=== PATIENT | male | born 1965 | race Caucasian/White ===

== ENCOUNTER 2019-09-05 16:52 | Emergency (ER) | payer SELFPAY ==
--- OUTSIDE RECORDS SUMMARY | 2019-09-05 17:10 | XMS REPORT ---
:1965 [facility] Address [address] [place] [address] Care Team Providers Name Role Phone UNKNOWN, REFFERING Primary Care Provider Unavailable Problems This patient has no known problems. Allergies, Adverse Reactions, Alerts This patient has no known allergies or adverse reactions. Medications This patient has no known medications. Encounters Start End Encounter Admission Attending Care Care Encounter Date/Time Date/Time Type Type Clinicians Facility Department ID 2016-11-13 Inpatient E [facility] MED [id number] 23:30:00
--- NOTE | 2019-09-05 18:18 | RAD REPORT ---
EXAM DESCRIPTION: CT - Stone Protocol - 09/05/2019 5:57 pm CLINICAL HISTORY: Inguinal hernia, groin pain, flank pain COMPARISON: None. TECHNIQUE: Axial 5 mm thick images were obtained without oral or IV contrast. The [id number] span s the entirety of the system partially obscuring uppermost abdomen and lung bases. All CT scans are performed using dose optimization technique as appropriate and may include automated exposure control or mA/KV adjustment according to patient size. FINDINGS: No hydronephrosis is present and no obstructing ureteral calculi. No suspicious renal mass es. Isodense masses and pyelonephritis are not excluded on a stone protocol CT scan. No significant a drenal finding. Urinary bladder sanchez are prominent. No asymmetric wall thickening or mass. Bladder is only partially filled limiting accuracy of bladder wall assessment. Cystitis is not excluded if there are any suppo rting UA abnormalities. Imaged portions of the liver, spleen and pancreas show no suspicious findings on non-contrast imaging . No gallbladder or biliary tree abnormality identified. No stomach or small bowel abnormality. Moderate stool volume fills the colon. No acute colon process seen. Sigmoid and descending colon segments are not adequately distended by air or bowel content to a llow all accurate assessment. No mass or bulky lymphadenopathy. No omental thickening seen. Patient has an indirect left inguinal h ernia containing fat. Herniated fat does not appear congested or edematous. No bowel involvement. No free air, free fluid or inflammatory stranding. No significant bony abnormality. IMPRESSION: Left indirect inguinal hernia containing only fat. No congested or edematous fat. Urinary bladder wall is only partially filled. Wall thickness is likely an artifact of incomplete dis tention. Cystitis is not excluded on a noncontrast study and can be correlated with UA findings. Isodense masses and pyelonephritis are not excluded on stone protocol technique.
--- NOTE | 2019-09-05 18:31 | ER ---
Nurse's Notes [facility] Name: Bro Yung Age: 54 yrs Sex: Male : 1965 Arrival Date: 09/05/2019 Time: 16:55 Bed 15 Private MD: Diagnosis: Inguinal hernia Presentation: 09/05 17:01 Presenting complaint: Patient states: noticed lump in left groin on thanksgi, today iw pain has gotten really bad. Transition of care: patient was not received from another setting of care. Onset of symptoms was August 28, 2019. Risk Assessment: Do you want to hurt yourself or someone else? Patient reports no desire to harm self or others. Initial Sepsis Screen: Does the patient meet any 2 criteria? No. Patient's initial sepsis screen is negative. Does the patient have a suspected source of infection? No. Patient's initial sepsis screen is negative. Care prior to arrival: None. 17:01 Method Of Arrival: Ambulatory iw 17:01 Acuity: PATRICIO 3 iw Historical: - Allergies: 17:02 No Known Allergies; iw - Home Meds: 17:02 None [Active]; iw - PMHx: 17:02 Anxiety; Depression; iw - PSHx: 17:02 eye; Tonsillectomy; nose; lower left leg; iw - Immunization history:: Adult Immunizations. - Social history:: Smoking status: Patient uses tobacco products, smokes one pack cigarettes per day. - Ebola Screening: : Patient negative for fever greater than or equal to 101.5 degrees Fahrenheit, and additional compatible Ebola Virus Disease symptoms Patient denies exposure to infectious person Patient denies travel to an Ebola-affected area in the 21 days before illness onset No symptoms or risks identified at this time. Screenin:42 Abuse screen: Denies threats or abuse. Nutritional screening: No deficits noted. tw2 Tuberculosis screening: No symptoms or risk factors identified. Fall Risk None identified. Assessment: 17:39 General: Appears in no apparent distress. unkempt, Behavior is calm, cooperative, tw2 appropriate for age. Pain: Complains of pain in left inguinal area. Neuro: Level of Consciousness is awake, alert, obeys commands, Oriented to person, place, time, situation. Cardiovascular: Heart tones S1 S2 Patient's skin is warm and dry. Respiratory: Airway is patent Respiratory effort is even, unlabored, Respiratory pattern is regular, symmetrical, Breath sounds are clear bilaterally. GI: Reports left inguinal pain. : No signs and/or symptoms were reported regarding the genitourinary system. EENT: No signs and/or symptoms were reported regarding the EENT system. Derm: No signs and/or symptoms reported regarding the dermatologic system. Musculoskeletal: Range of motion: intact in all extremities. Vital Signs: 17:02 BP 124 / 84; Pulse 84; Resp 16 S; Temp 97.0; Pulse Ox 98% ; Weight 77.11 kg; Height 5 iw ft. 8 in. (172.72 cm); Pain 8/10; 18:40 BP 122 / 82; Pulse 79; Resp 17; Pulse Ox 97% on R/A; tw2 17:02 Body Mass Index 25.85 (77.11 kg, 172.72 cm) iw ED Course: 16:55 Patient arrived in ED. as 17:02 Triage completed. iw 17:03 Placed in gown. Bed in low position. Call light in reach. tw2 17:17 Annie Tello FNP-C is [facility]. kb 17:17 Bro Ortiz MD is Attending Physician. kb 17:37 Lindsey Paredes, JESSICA is Primary Nurse. tw2 17:37 Arm band placed on. tw2 17:[address] nj 17:59 CT Stone Protocol In Process Unspecified. EDMS 18:39 No provider procedures requiring assistance completed. Patient did not have IV access tw2 during this emergency room visit. Administered Medications: No medications were administered Outcome: 18:31 Discharge ordered by . kb 18:39 Discharged to home ambulatory. tw2 18:39 Condition: stable 18:39 Discharge instructions given to patient, Instructed on discharge instructions, follow up and referral plans. Demonstrated understanding of instructions, follow-up care. 18:40 Patient left the ED. tw2 Signatures: Dispatcher [employer] EDMS Annie Tello FNP-C FNP-Ckb Martinez, Amelia as Williams, Irene RN JESSICA iw Lindsey Paredes RN RN tw2 Helio Miranda
--- NOTE | 2019-09-05 18:32 | EDPHYS ---
Physician Documentation [facility] Name: Bro Yung Age: 54 yrs Sex: Male : 1965 Arrival Date: 09/05/2019 Time: 16:55 Bed 15 Private MD: ED Physician Bro Ortiz HPI: 09/05 18:35 This 54 yrs old Male presents to ER via Ambulatory with complaints of Groin kb Pain. 19:17 The patient presents with abdominal pain in the left lower quadrant. Onset: The kb symptoms/episode began/occurred 2 week(s) ago. The symptoms do not radiate. Associated signs and symptoms: none. The symptoms are described as intermittent. Modifying factors: The symptoms are alleviated by nothing, the symptoms are aggravated by straining. Severity of pain: At its worst the pain was moderate in the emergency department the pain is unchanged. The patient has not experienced similar symptoms in the past. The patient has not recently seen a physician. Pt reports bulge to left groin that increases in size at times. Reports he noticed it before Thanksgiving and the pain was a little worse today so he thought he should get it checked out. Denies n/v/d, fever. . Historical: - Allergies: 17:02 No Known Allergies; iw - Home Meds: 17:02 None [Active]; iw - PMHx: 17:02 Anxiety; Depression; iw - PSHx: 17:02 eye; Tonsillectomy; nose; lower left leg; iw - Immunization history:: Adult Immunizations. - Social history:: Smoking status: Patient uses tobacco products, smokes one pack cigarettes per day. - Ebola Screening: : Patient negative for fever greater than or equal to 101.5 degrees Fahrenheit, and additional compatible Ebola Virus Disease symptoms Patient denies exposure to infectious person Patient denies travel to an Ebola-affected area in the 21 days before illness onset No symptoms or risks identified at this time. ROS: 19:19 Constitutional: Negative for fever, chills, and weight loss, ENT: Negative for injury, kb pain, and discharge, Neck: Negative for injury, pain, and swelling, Cardiovascular: Negative for chest pain, palpitations, and edema, Respiratory: Negative for shortness of breath, cough, wheezing, and pleuritic chest pain, Back: Negative for injury and pain, : Negative for injury, bleeding, discharge, and swelling, MS/Extremity: Negative for injury and deformity, Skin: Negative for injury, rash, and discoloration, Neuro: Negative for headache, weakness, numbness, tingling, and seizure. 19:19 Abdomen/GI: Positive for abdominal pain, of the left inguinal area. Exam: 19:16 Constitutional: This is a well developed, well nourished patient who is awake, alert, kb and in no acute distress. Head/Face: Normocephalic, atraumatic. ENT: Nares patent. No nasal discharge, no septal abnormalities noted. Tympanic membranes are normal and external auditory canals are clear. Oropharynx with no redness, swelling, or masses, exudates, or evidence of obstruction, uvula midline. Mucous membranes moist. Neck: Trachea midline, no thyromegaly or masses palpated, and no cervical lymphadenopathy. Supple, full range of motion without nuchal rigidity, or vertebral point tenderness. No Meningismus. Chest/axilla: Normal chest wall appearance and motion. Nontender with no deformity. No lesions are appreciated. Cardiovascular: Regular rate and rhythm with a normal S1 and S2. No gallops, murmurs, or rubs. Normal PMI, no JVD. No pulse deficits. Respiratory: Lungs have equal breath sounds bilaterally, clear to auscultation and percussion. No rales, rhonchi or wheezes noted. No increased work of breathing, no retractions or nasal flaring. Back: No spinal tenderness. No costovertebral tenderness. Full range of motion. Skin: Warm, dry with normal turgor. Normal color with no rashes, no lesions, and no evidence of cellulitis. MS/ Extremity: Pulses equal, no cyanosis. Neurovascular intact. Full, normal range of motion. Neuro: Awake and alert, GCS 15, oriented to person, place, time, and situation. Cranial nerves II-XII grossly intact. Motor strength 5/5 in all extremities. Sensory grossly intact. Cerebellar exam normal. Normal gait. 19:16 Abdomen/GI: Hernia: noted in the left inguinal area, easily reduced. Vital Signs: 17:02 BP 124 / 84; Pulse 84; Resp 16 S; Temp 97.0; Pulse Ox 98% ; Weight 77.11 kg; Height 5 iw ft. 8 in. (172.72 cm); Pain 8/10; 18:40 BP 122 / 82; Pulse 79; Resp 17; Pulse Ox 97% on R/A; tw2 17:02 Body Mass Index 25.85 (77.11 kg, 172.72 cm) iw MDM: 17:17 Patient medically screened. kb 18:12 Data reviewed: vital signs, nurses notes. Data interpreted: Pulse oximetry: on room air kb is 98 %. Interpretation: normal. 18:30 Counseling: I had a detailed discussion with the patient and/or guardian regarding: the kb historical points, exam findings, and any diagnostic results supporting the discharge/admit diagnosis, radiology results, the need for outpatient follow up, a family practitioner, a general surgeon, to return to the emergency department if symptoms worsen or persist or if there are any questions or concerns that arise at home. 09/05 17:35 Order name: CT Stone Protocol; Complete Time: 18:29 kb Administered Medications: No medications were administered Disposition: 09/06 07:23 Co-signature as Attending Physician, Bro Ortiz MD I agree with the assessment and kdr plan of care. Disposition: 09/05/19 18:31 Discharged to Home. Impression: Inguinal hernia. - Condition is Stable. - Discharge Instructions: Inguinal Hernia, Adult, [id number]. - Medication Reconciliation Form, Thank You Letter, Antibiotic Education, Prescription Opioid Use form. - Follow up: Emergency Department; When: As needed; Reason: Worsening of condition. Follow up: Private Physician; When: 2 - 3 days; Reason: Recheck today's complaints, Continuance of care, Re-evaluation by your physician. Signatures: Dispatcher [employer] EDCA Annie Tello, MEL-C MEL-Bro Warner MD MD [facility] Inés Mata, JESSICA RN iw Lindsey Paredes RN RN tw2 Corrections: (The following items were deleted from the chart) 09/05 18:40 18:31 09/05/2019 18:31 Discharged to Home. Impression: Inguinal hernia. Condition is tw2 Stable. Forms are Medication Reconciliation Form, Thank You Letter, Antibiotic Education, Prescription Opioid Use. Follow up: Emergency Department; When: As needed; Reason: Worsening of condition. Follow up: Private Physician; When: 2 - 3 days; Reason: Recheck today's complaints, Continuance of care, Re-evaluation by your physician. kb
[2019-09-05 20:38] VITALS: TEMP 97
[2019-09-05 20:39] VITALS: BP 122/82; O2SAT 97
== END 2019-09-05 18:40 | disposition home or self-care (01) ==
LOC: ER 16:52
DX: K40.90 Unilateral inguinal hernia, without obstruction or gangrene, not specified as recurrent (principal); F17.210 Nicotine dependence, cigarettes, uncomplicated
CPT/HCPCS: 74176; 76377; 99284

== ENCOUNTER 2019-10-19 03:36 | Emergency (ER) | payer SELFPAY ==
--- OUTSIDE RECORDS SUMMARY | 2019-10-19 03:39 | XMS REPORT ---
:1965 [facility] Address [address] [place] [address] Care Team Providers Name Role Phone UNKNOWN, REFFERING Primary Care Provider Unavailable Problems This patient has no known problems. Allergies, Adverse Reactions, Alerts This patient has no known allergies or adverse reactions. Medications This patient has no known medications. Encounters Start End Encounter Admission Attending Care Care Encounter Date/Time Date/Time Type Type Clinicians Facility Department ID 2016-11-13 Inpatient E [facility] [id number] 23:30:00
[2019-10-19] MEDS ORDERED: LEVALBUTEROL 1.25 MG/3 ML NEB ONE (03:59)
[2019-10-19] MEDS ORDERED: ASPIRIN 81 MG CHEWABLE TABLET ONE ×2 (03:59→04:07)
[2019-10-19] MEDS ORDERED: IPRATROPIUM BROM 0.5MG/2.5ML ONE (03:59)
[2019-10-19 04:23] LABS: Absolute Lymphocytes (CBC) 2.2 K/uL (0.7-4.9); Basophils % 0.7 % (0-1.3); Hematocrit 48.1 % (39.6-49.0); Lymphocytes % 26.7 % (15.3-44.8); MPV 6.7 fL (7.6-11.3); RBC Red Blood Cell Count 5.07 M/uL (4.33-5.43)
[2019-10-19 04:25] LABS: Protime INR 1.02
[2019-10-19 05:08] LABS: Barbiturates NEGATIVE (NEGATIVE); Benzodiazepines NEGATIVE (NEGATIVE); Cocaine NEGATIVE (NEGATIVE); METHAMPHETAM POSITIVE (NEGATIVE); Methadone NEGATIVE (NEGATIVE); Opiates NEGATIVE (NEGATIVE); Phencyclidine NEGATIVE (NEGATIVE); THC Cannibis NEGATIVE (NEGATIVE)
[2019-10-19 05:08] LABS: ALT/SGPT 78 U/L (12-78); AST/SGOT 56 U/L (15-37); Albumin 4.2 g/dL (3.4-5.0); Alkaline Phosphatase 56 U/L (45-117); BUN Blood Urea Nitrogen 12 mg/dL (7-18); Bicarbonate 27 mmol/L (21-32); Bilirubin Direct 0.4 mg/dL (0-0.2); Bilirubin Total 1.4 mg/dL (0.2-1.0); Glucose Level 114 mg/dL (74-106); NT PRO-BNP 63 pg/mL (<125); Potassium 3.5 mmol/L (3.5-5.1); Sodium Level 142 mmol/L (136-145); Troponin (Emerg Dept Use Only) < 0.02 ng/mL (0.0-0.045)
[2019-10-19] MEDS ORDERED: METOPROLOL XL 50 MG TAB PO ONE (05:26)
[2019-10-19 06:19] LABS: Urine Blood NEGATIVE (NEG); Urine Glucose NEGATIVE (NEG); Urine Protein NEGATIVE (NEG); Urine Specific Gravity >1.030 (1.005-1.030); Urine pH 5.5 (5.0-7.0)
--- NOTE | 2019-10-19 06:25 | EDPHYS ---
Physician Documentation [facility] Name: Bro Yung Age: 54 yrs Sex: Male : 1965 Arrival Date: 10/19/2019 Time: 03:41 Bed 7 Private MD: KACIE Physician Rob Stein HPI: 10/19 03:44 This 54 yrs old Male presents to ER via EMS with complaints of CHEST PAIN yamil AFTER METH. 03:44 This 54 yrs old Male presents to ER via EMS with complaints of CHEST PAIN yamil AFTER METH SMOKING. 03:44 The patient has shortness of breath at rest, with light activity. Onset: The yamil symptoms/episode began/occurred just prior to arrival. Duration: The symptoms are continuous, but are steadily getting better. The patient's shortness of breath is aggravated by nothing. The patient or guardian reports chest pain that is located primarily in the substernal area. Onset: just prior to arrival, this morning. SMOKING METH AND DEVELOPED CP. The pain does not radiate. Associated signs and symptoms: Pertinent positives: chest pain. Historical: - Allergies: 03:47 No Known Allergies; jd3 - Home Meds: 03:47 None [Active]; jd3 - PMHx: 03:47 Anxiety; Depression; CHF; jd3 - PSHx: 03:47 nose; left ankle; Tonsillectomy; jd3 - Immunization history:: Adult Immunizations up to date, Flu vaccine is not up to date. - Social history:: Smoking status: Patient reports the use of cigarette tobacco products, smokes one pack cigarettes per day. Patient uses street drugs, Methamphetamine (Meth). - Ebola Screening: : Patient negative for fever greater than or equal to 101.5 degrees Fahrenheit, and additional compatible Ebola Virus Disease symptoms. - Family history:: not pertinent. ROS: 03:52 Constitutional: Negative for fever, chills, and weight loss, Eyes: Negative for injury, yamil pain, redness, and discharge, ENT: Negative for injury, pain, and discharge, Cardiovascular: Negative for chest pain, palpitations, and edema, Respiratory: Negative for shortness of breath, cough, wheezing, and pleuritic chest pain, Abdomen/GI: Negative for abdominal pain, nausea, vomiting, diarrhea, and constipation, Back: Negative for injury and pain, : Negative for injury, bleeding, discharge, and swelling, MS/Extremity: Negative for injury and deformity, Skin: Negative for injury, rash, and discoloration, Neuro: Negative for headache, weakness, numbness, tingling, and seizure, Psych: Negative for depression, anxiety, suicide ideation, homicidal ideation, and hallucinations, Allergy/Immunology: Negative for hives, rash, and allergies, Endocrine: Negative for neck swelling, polydipsia, polyuria, polyphagia, and marked weight changes, Hematologic/Lymphatic: Negative for swollen nodes, abnormal bleeding, and unusual bruising. 03:52 Cardiovascular: Positive for chest pain. 03:52 Respiratory: Positive for shortness of breath, wheezing, expiratory. Exam: 03:52 Constitutional: This is a well developed, well nourished patient who is awake, alert, yamil and in no acute distress. Head/Face: Normocephalic, atraumatic. Eyes: Pupils equal round and reactive to light, extra-ocular motions intact. Lids and lashes normal. Conjunctiva and sclera are non-icteric and not injected. Cornea within normal limits. Periorbital areas with no swelling, redness, or edema. ENT: Nares patent. No nasal discharge, no septal abnormalities noted. Tympanic membranes are normal and external auditory canals are clear. Oropharynx with no redness, swelling, or masses, exudates, or evidence of obstruction, uvula midline. Mucous membranes moist. Neck: Trachea midline, no thyromegaly or masses palpated, and no cervical lymphadenopathy. Supple, full range of motion without nuchal rigidity, or vertebral point tenderness. No Meningismus. Chest/axilla: Normal chest wall appearance and motion. Nontender with no deformity. No lesions are appreciated. Cardiovascular: Regular rate and rhythm with a normal S1 and S2. No gallops, murmurs, or rubs. Normal PMI, no JVD. No pulse deficits. Abdomen/GI: Soft, non-tender, with normal bowel sounds. No distension or tympany. No guarding or rebound. No evidence of tenderness throughout. Back: No spinal tenderness. No costovertebral tenderness. Full range of motion. Male : Normal genitalia with no discharge or lesions. Skin: Warm, dry with normal turgor. Normal color with no rashes, no lesions, and no evidence of cellulitis. MS/ Extremity: Pulses equal, no cyanosis. Neurovascular intact. Full, normal range of motion. Neuro: Awake and alert, GCS 15, oriented to person, place, time, and situation. Cranial nerves II-XII grossly intact. Motor strength 5/5 in all extremities. Sensory grossly intact. Cerebellar exam normal. Normal gait. Psych: Awake, alert, with orientation to person, place and time. Behavior, mood, and affect are within normal limits. 03:52 Respiratory: the patient does not display signs of respiratory distress, Respirations: normal, Breath sounds: rhonchi, are not appreciated, wheezing: expiratory Vital Signs: 03:47 BP 141 / 93; Pulse 102; Resp 19 S; Temp 97.8(O); Pulse Ox 100% on R/A; Weight 63.5 kg jd3 (R); Height 5 ft. 8 in. (172.72 cm) (R); Pain 8/10; 05:20 BP 129 / 80; Pulse 90; Resp 19 S; Pulse Ox 100% on R/A; Pain 5/10; jd3 05:59 BP 122 / 91; Pulse 85; Resp 17; Pulse Ox 98% on R/A; rv 03:47 Body Mass Index 21.29 (63.50 kg, 172.72 cm) jd3 MDM: 03:41 Patient medically screened. [facility] 03:53 Data reviewed: vital signs, nurses notes, lab test result(s), EKG, radiologic studies, yamil plain films. 10/19 03:44 Order name: Basic Metabolic Panel [facility] 10/19 03:44 Order name: CBC with Diff 10/19 03:44 Order name: LFT's [facility] 10/19 03:44 Order name: Magnesium [facility] 10/19 03:44 Order name: NT PRO-BNP [facility] 10/19 03:44 Order name: PT-INR [facility] 10/19 03:44 Order name: Troponin (emerg Dept Use Only) [facility] 10/19 03:44 Order name: Acetaminophen [facility] 10/19 03:44 Order name: ETOH Level [facility] 10/19 03:44 Order name: Ptt, Activated; Complete Time: 04:25 [facility] 10/19 03:44 Order name: Salicylate; Complete Time: 04:30 [facility] 10/19 03:44 Order name: Urine Drug Screen; Complete Time: 05:08 [facility] 10/19 03:45 Order name: Basic Metabolic Panel; Complete Time: 05:13 EDMS 10/19 03:45 Order name: CBC with Automated Diff; Complete Time: 04:25 EDNC 10/19 03:44 Order name: XRAY Chest (1 view) [facility] 10/19 03:44 Order name: EKG; Complete Time: 03:45 [facility] 10/19 03:44 Order name: Cardiac monitoring; Complete Time: 03:49 [facility] 10/19 03:45 Order name: Liver (Hepatic) Function; Complete Time: 05:13 EDMS 10/19 03:45 Order name: Magnesium; Complete Time: 05:13 EDMS 10/19 03:45 Order name: NT PRO-BNP; Complete Time: 05:13 EDNC 10/19 03:45 Order name: Protime (+INR); Complete Time: 04:25 EDNC 10/19 03:45 Order name: Troponin (Emerg Dept Use Only); Complete Time: 05:13 EDMS 10/19 03:45 Order name: Acetaminophen Level; Complete Time: 05:13 [facility] 10/19 03:45 Order name: Alcohol Serum/Plasma; Complete Time: 04:30 [facility] 10/19 04:19 Order name: Urine Dipstick--Ancillary (enter results); Complete Time: 06:24 [facility] 10/19 04:28 Order name: Troponin (emerg Dept Use Only): 530am; Complete Time: 06:24 [facility] 10/19 03:44 Order name: EKG - Nurse/Tech; Complete Time: 03:49 [facility] 10/19 03:44 Order name: IV Saline Lock; Complete Time: 04:08 [facility] 10/19 03:44 Order name: Labs collected and sent; Complete Time: 04:08 [facility] 10/19 03:44 Order name: O2 Per Protocol; Complete Time: 03:49 [facility] 10/19 03:44 Order name: O2 Sat Monitoring; Complete Time: 03:49 [facility] 10/19 03:44 Order name: Urine Dipstick-Ancillary (obtain specimen); Complete Time: 04:11 yamil Administered Medications: 04:07 Drug: Aspirin 162 mg Route: PO; jd3 05:05 Follow up: Response: No adverse reaction jd3 04:07 Drug: Xopenex 2.5 mg Route: Inhalation; jd3 05:05 Follow up: Response: No adverse reaction jd3 04:07 Drug: AtroVENT Aerosol 0.5 mg Route: Inhalation; jd3 05:05 Follow up: Response: No adverse reaction jd3 05:27 Drug: ToPROL XL (metoprolol SUCCINATE XL) 50 mg Route: PO; jd3 06:25 Follow up: Response: No adverse reaction jd3 Disposition: 10/19/19 06:24 Discharged to Home. Impression: Chest pain, unspecified, Adverse effect of amphetamines, Abuse of other non-psychoactive substances, Essential (primary) hypertension. - Condition is Stable. - Discharge Instructions: Stimulant Use Disorder-Amphetamines, Nonspecific Chest Pain, Substance Use Disorder, Nonspecific Chest Pain, [id number], Stimulant Use Disorder-Methamphetamines, Aspirin and Your Heart. - Prescriptions for Toprol XL 25 mg Oral Tablet - take 1 tablet by ORAL route once daily; 20 tablet. - Medication Reconciliation Form, Thank You Letter, Antibiotic Education, Prescription Opioid Use form. - Follow up: Private Physician; When: 2 - 3 days; Reason: Recheck today's complaints, Continuance of care, Re-evaluation by your physician. Follow up: Chidi Porter; When: 2 - 3 days; Reason: Recheck today's complaints, Continuance of care, Re-evaluation by your physician. - Problem is new. - Symptoms have improved. Signatures: Dispatcher [employer] EDRob Martinez MD MD cha Davies, Jonathon, RN RN jd3 Corrections: (The following items were deleted from the chart) 06:39 06:24 10/19/2019 06:24 Discharged to Home. Impression: Chest pain, unspecified; Adverse jd3 effect of amphetamines; Abuse of other non-psychoactive substances; Essential (primary) hypertension. Condition is Stable. Discharge Instructions: Stimulant Use Disorder-Amphetamines, Nonspecific Chest Pain, Substance Use Disorder, Nonspecific Chest Pain, [id number], Stimulant Use Disorder-Methamphetamines, Aspirin and Your Heart. Prescriptions for Toprol XL 25 mg Oral Tablet - take 1 tablet by ORAL route once daily; 20 tablet. and Forms are Medication Reconciliation Form, Thank You Letter, Antibiotic Education, Prescription Opioid Use. Follow up: Private Physician; When: 2 - 3 days; Reason: Recheck today's complaints, Continuance of care, Re-evaluation by your physician. Follow up: Chidi Porter; When: 2 - 3 days; Reason: Recheck today's complaints, Continuance of care, Re-evaluation by your physician. Problem is new. Symptoms have improved. yamil
--- NOTE | 2019-10-19 06:25 | ER ---
Nurse's Notes [facility] Name: Bro Yung Age: 54 yrs Sex: Male : 1965 Arrival Date: 10/19/2019 Time: 03:41 Bed 7 Private MD: Diagnosis: Chest pain, unspecified;Adverse effect of amphetamines;Abuse of other non-psychoactive substances;Essential (primary) hypertension Presentation: 10/19 03:41 Presenting complaint: EMS states: "we were called for a pt having sharp chest pain that jd3 started about 0230. he has stable vitals. he did admit to have been smoking meth for the past 3 days and has been sober for 24 hrs now.". Transition of care: patient was not received from another setting of care. Onset of symptoms was October 19, 2019. Risk Assessment: Do you want to hurt yourself or someone else? Patient reports no desire to harm self or others. Initial Sepsis Screen: Does the patient meet any 2 criteria? No. Patient's initial sepsis screen is negative. Does the patient have a suspected source of infection? No. Patient's initial sepsis screen is negative. Care prior to arrival: Glucose check: 102. 03:41 Method Of Arrival: EMS: [facility] jd3 03:41 Acuity: PATRICIO 3 jd3 Historical: - Allergies: 03:47 No Known Allergies; jd3 - Home Meds: 03:47 None [Active]; jd3 - PMHx: 03:47 Anxiety; Depression; CHF; jd3 - PSHx: 03:47 nose; left ankle; Tonsillectomy; jd3 - Immunization history:: Adult Immunizations up to date, Flu vaccine is not up to date. - Social history:: Smoking status: Patient reports the use of cigarette tobacco products, smokes one pack cigarettes per day. Patient uses street drugs, Methamphetamine (Meth). - Ebola Screening: : Patient negative for fever greater than or equal to 101.5 degrees Fahrenheit, and additional compatible Ebola Virus Disease symptoms. - Family history:: not pertinent. Screenin:48 Abuse screen: Denies threats or abuse. Nutritional screening: No deficits noted. jd3 Tuberculosis screening: No symptoms or risk factors identified. Fall Risk Ambulatory Aid- None/Bed Rest/Nurse Assist (0 pts). Gait- Normal/Bed Rest/Wheelchair (0 pts) Mental Status- Oriented to own ability (0 pts). Total Dela Cruz Fall Scale indicates No Risk (0-24 pts). Assessment: 03:47 General: Appears in no apparent distress. uncomfortable, Behavior is cooperative, jd3 appropriate for age, anxious, restless. Pain: Complains of pain in chest Quality of pain is described as sharp. Neuro: Level of Consciousness is awake, alert, obeys commands, Oriented to person, place, time, situation. Cardiovascular: Heart tones S1 S2 present Capillary refill < 3 seconds Patient's skin is warm and dry. Rhythm is regular. Respiratory: Reports shortness of breath at rest Airway is patent Respiratory effort is even, unlabored, Respiratory pattern is regular, symmetrical, Breath sounds are clear bilaterally. GI: No signs and/or symptoms were reported involving the gastrointestinal system. Patient currently denies nausea, vomiting. : No signs and/or symptoms were reported regarding the genitourinary system. EENT: No signs and/or symptoms were reported regarding the EENT system. Derm: Skin is intact, Skin is dry, Skin is normal, Skin temperature is warm. Musculoskeletal: Circulation, motion, and sensation intact. Range of motion: intact in all extremities. 04:30 Reassessment: Patient appears in no apparent distress at this time. Patient and/or jd3 family updated on plan of care and expected duration. Pain level reassessed. Patient is alert, oriented x 3, equal unlabored respirations, skin warm/dry/pink. pt reports continued anxiety. reporting some relief from pain and breathing difficulty. Patient states feeling better. 05:20 Reassessment: Patient appears in no apparent distress at this time. No changes from jd3 previously documented assessment. Patient and/or family updated on plan of care and expected duration. Pain level reassessed. Patient is alert, oriented x 3, equal unlabored respirations, skin warm/dry/pink. 06:36 Reassessment: Patient appears in no apparent distress at this time. Patient and/or jd3 family updated on plan of care and expected duration. Pain level reassessed. Patient is alert, oriented x 3, equal unlabored respirations, skin warm/dry/pink. reported understanding of discharge instructions. even and steady gait upon discharge. Patient states feeling better. Vital Signs: 03:47 BP 141 / 93; Pulse 102; Resp 19 S; Temp 97.8(O); Pulse Ox 100% on R/A; Weight 63.5 kg jd3 (R); Height 5 ft. 8 in. (172.72 cm) (R); Pain 8/10; 05:20 BP 129 / 80; Pulse 90; Resp 19 S; Pulse Ox 100% on R/A; Pain 5/10; jd3 05:59 BP 122 / 91; Pulse 85; Resp 17; Pulse Ox 98% on R/A; rv 03:47 Body Mass Index 21.29 (63.50 kg, 172.72 cm) jd3 ED Course: 03:41 Patient arrived in ED. yamil 03:41 Rob Stein MD is Attending Physician. yamil 03:41 Sekou Perez RN is Primary Nurse. jd3 03:43 Triage completed. jd3 03:47 Arm band placed on. EKG completed in triage. Results shown to MD. jd3 03:49 Patient has correct armband on for positive identification. Placed in gown. Bed in low jd3 position. Call light in reach. Side rails up X2. residential monitor on. Pulse ox on. NIBP on. 03:55 Inserted saline lock: 20 gauge in right antecubital area, using aseptic technique. jd3 Blood collected. 04:19 XRAY Chest (1 view) In Process Unspecified. EDMS 06:24 Chidi Porter MD is Referral Physician. yamil 06:36 No provider procedures requiring assistance completed. IV discontinued, intact, jd3 bleeding controlled, No redness/swelling at site. Pressure dressing applied. Administered Medications: 04:07 Drug: Aspirin 162 mg Route: PO; jd3 05:05 Follow up: Response: No adverse reaction jd3 04:07 Drug: Xopenex 2.5 mg Route: Inhalation; jd3 05:05 Follow up: Response: No adverse reaction jd3 04:07 Drug: AtroVENT Aerosol 0.5 mg Route: Inhalation; jd3 05:05 Follow up: Response: No adverse reaction jd3 05:27 Drug: ToPROL XL (metoprolol SUCCINATE XL) 50 mg Route: PO; jd3 06:25 Follow up: Response: No adverse reaction jd3 Outcome: 06:24 Discharge ordered by . yamil 06:36 Discharged to home ambulatory, with family. jd3 06:36 Condition: stable 06:36 Discharge instructions given to patient, Instructed on discharge instructions, follow up and referral plans. medication usage, Demonstrated understanding of instructions, follow-up care, medications, Prescriptions given X 1. 06:39 Patient left the ED. jd3 Signatures: Dispatcher [employer] Rob Ramos MD MD cha Davies, Jonathon, RN RN jDewayne Patel RN RN rv Corrections: (The following items were deleted from the chart) 03:44 03:41 Care prior to arrival: None. jd3 jd3 04:25 03:47 General: Appears in no apparent distress. uncomfortable, Behavior is calm, jd3 cooperative, appropriate for age, jd3 05:20 04:30 Reassessment: Patient appears in no apparent distress at this time. No changes jd3 from previously documented assessment. Patient and/or family updated on plan of care and expected duration. Pain level reassessed. Patient is alert, oriented x 3, equal unlabored respirations, skin warm/dry/pink. jd3
--- NOTE | 2019-10-19 08:54 | RAD REPORT ---
EXAM DESCRIPTION: RAD - Chest Single View - 10/19/2019 4:19 am CLINICAL HISTORY: Chest pain COMPARISON: None. TECHNIQUE: AP portable chest image was obtained 0415 hours . FINDINGS: Lungs are clear. Heart and vasculature are normal. No measurable pleural effusion and no p neumothorax. No acute bony abnormality seen. No acute aortic findings suspected. IMPRESSION: No acute cardiopulmonary process.
[2019-10-19 11:13] VITALS: TEMP 97.8
[2019-10-19 11:14] VITALS: BP 122/91; O2SAT 98
--- NOTE | 2019-10-19 13:59 | EKG ---
Test Date: 2019-10-19 Test Time: 03:37:03 [place]: VARSHA MEASUREMENT RESULTS: Intervals: Rate: 96 TX: 112 QRSD: 80 QT: 350 QTc: 442 [place]: P: 78 TX: 112 QRS: 76 T: 52 INTERPRETIVE STATEMENTS: Normal sinus rhythm Possible Left atrial enlargement Borderline ECG Compared to ECG 07/27/1996 23:14:00 ST (T wave) deviation no longer present Electronically Signed On 10-19-19 13:58:51 ACCOUNTING INTERN by Chidi Porter
== END 2019-10-19 06:39 | disposition home or self-care (01) ==
LOC: ER 03:36
DX: R07.9 Chest pain, unspecified (principal); T43.624A Poisoning by amphetamines, undetermined, initial encounter; F55.8 Abuse of other non-psychoactive substances; I10 Essential (primary) hypertension
CPT/HCPCS: 36415; 71045; 80048; 80076; 80307; 80320; 80329; 81003; 83735; 83880; 84484; 85025; 85610; 85730; 93005; 99285

== ENCOUNTER 2020-01-05 09:28 | Emergency (ER) | payer SELFPAY ==
--- OUTSIDE RECORDS SUMMARY | 2020-01-05 09:31 | XMS REPORT ---
:1965 [facility] Address [address] [place] [address] Care Team Providers Name Role Phone UNKNOWN, REFFERING Primary Care Provider Unavailable Problems This patient has no known problems. Allergies, Adverse Reactions, Alerts This patient has no known allergies or adverse reactions. Medications This patient has no known medications. Encounters Start End Encounter Admission Attending Care Care Encounter Date/Time Date/Time Type Type Clinicians Facility Department ID 2016-11-13 Inpatient E [facility] [id number] 23:30:00
[2020-01-05 10:15] LABS: Absolute Lymphocytes (CBC) 1.6 K/uL (0.7-4.9); Basophils % 0.7 % (0-1.3); Hematocrit 49.1 % (39.6-49.0); MPV 6.8 fL (7.6-11.3)
[2020-01-05] MEDS ORDERED: NA CHLORIDE 0.9% 1,000 ML ONE (10:20)
[2020-01-05 10:27] LABS: Protime INR 0.92
[2020-01-05 10:55] LABS: ALT/SGPT 74 U/L (12-78); AST/SGOT 59 U/L (15-37); Alkaline Phosphatase 57 U/L (45-117); BUN Blood Urea Nitrogen 13 mg/dL (7-18); Bicarbonate 29 mmol/L (21-32); Bilirubin Direct 0.5 mg/dL (0-0.2); Bilirubin Total 1.3 mg/dL (0.2-1.0); Glucose Level 73 mg/dL (74-106); Potassium 3.6 mmol/L (3.5-5.1); Sodium Level 139 mmol/L (136-145)
[2020-01-05 10:57] LABS: Urine Blood NEGATIVE (NEG); Urine Glucose NEGATIVE (NEG); Urine Protein NEGATIVE (NEG); Urine Specific Gravity 1.025 (1.005-1.030)
--- NOTE | 2020-01-05 11:16 | EDPHYS ---
Physician Documentation [facility] Name: Bro Yung Age: 54 yrs Sex: Male : 1965 Arrival Date: 01/05/2020 Time: 09:35 Bed 17 Private MD: ED Physician Rob Stein HPI: 01/04 09:55 This 54 yrs old Male presents to ER via EMS with complaints of Suicidal yamil Ideation. 09:55 The patient presents to the emergency department with depression, a history of yamil substance abuse, a history of a suicide gesture, suicide ideation. Onset: The symptoms/episode began/occurred 3 day(s) ago. Past psychiatric history: Prior diagnosis: depression, Psychiatric medications include: none. Associated signs and symptoms: The patient has no apparent associated signs or symptoms. Severity of symptoms: At their worst the symptoms were mild in the emergency department the symptoms. The patient has not experienced similar symptoms in the past. Historical: - PMHx: 09:42 Anxiety; CHF; Depression; ss - PSHx: 09:42 nose; left ankle; Tonsillectomy; ss - Immunization history:: Adult Immunizations unknown. - Social history:: Smoking status: Patient reports the use of cigarette tobacco products, smokes one pack cigarettes per day. Patient uses street drugs, "whatever is available to me" Pt reports he most recently used Meth. - Family history:: not pertinent. ROS: 09:55 Constitutional: Negative for fever, chills, and weight loss, Eyes: Negative for injury, yamil pain, redness, and discharge, ENT: Negative for injury, pain, and discharge, Neck: Negative for injury, pain, and swelling, Cardiovascular: Negative for chest pain, palpitations, and edema, Respiratory: Negative for shortness of breath, cough, wheezing, and pleuritic chest pain, Abdomen/GI: Negative for abdominal pain, nausea, vomiting, diarrhea, and constipation, Back: Negative for injury and pain, : Negative for injury, bleeding, discharge, and swelling, MS/Extremity: Negative for injury and deformity, Skin: Negative for injury, rash, and discoloration, Neuro: Negative for headache, weakness, numbness, tingling, and seizure, Allergy/Immunology: Negative for hives, rash, and allergies, Endocrine: Negative for neck swelling, polydipsia, polyuria, polyphagia, and marked weight changes, Hematologic/Lymphatic: Negative for swollen nodes, abnormal bleeding, and unusual bruising. 09:55 Psych: Positive for depression, suicide gesture, suicidal ideation. Exam: 09:55 Constitutional: This is a well developed, well nourished patient who is awake, alert, yamil and in no acute distress. Head/Face: Normocephalic, atraumatic. Eyes: Pupils equal round and reactive to light, extra-ocular motions intact. Lids and lashes normal. Conjunctiva and sclera are non-icteric and not injected. Cornea within normal limits. Periorbital areas with no swelling, redness, or edema. ENT: Nares patent. No nasal discharge, no septal abnormalities noted. Tympanic membranes are normal and external auditory canals are clear. Oropharynx with no redness, swelling, or masses, exudates, or evidence of obstruction, uvula midline. Mucous membranes moist. Neck: Trachea midline, no thyromegaly or masses palpated, and no cervical lymphadenopathy. Supple, full range of motion without nuchal rigidity, or vertebral point tenderness. No Meningismus. Chest/axilla: Normal chest wall appearance and motion. Nontender with no deformity. No lesions are appreciated. Cardiovascular: Regular rate and rhythm with a normal S1 and S2. No gallops, murmurs, or rubs. Normal PMI, no JVD. No pulse deficits. Respiratory: Lungs have equal breath sounds bilaterally, clear to auscultation and percussion. No rales, rhonchi or wheezes noted. No increased work of breathing, no retractions or nasal flaring. Abdomen/GI: Soft, non-tender, with normal bowel sounds. No distension or tympany. No guarding or rebound. No evidence of tenderness throughout. Back: No spinal tenderness. No costovertebral tenderness. Full range of motion. Male : Normal genitalia with no discharge or lesions. Skin: Warm, dry with normal turgor. Normal color with no rashes, no lesions, and no evidence of cellulitis. MS/ Extremity: Pulses equal, no cyanosis. Neurovascular intact. Full, normal range of motion. Neuro: Awake and alert, GCS 15, oriented to person, place, time, and situation. Cranial nerves II-XII grossly intact. Motor strength 5/5 in all extremities. Sensory grossly intact. Cerebellar exam normal. Normal gait. 09:55 Psych: Behavior/mood is pleasant, cooperative, Affect is calm, Oriented to person, place, time, Patient has no thoughts/intents to harm self or others. Judgement / Insight is normal. Memory is normal. Delusions/hallucinations are not present. Vital Signs: 09:35 BP 102 / 67; Pulse 73; Resp 16; Temp 97.8(TE); Pulse Ox 99% on R/A; Weight 74.84 kg; ss Height 5 ft. 8 in. (172.72 cm); Pain 0/10; 09:35 Body Mass Index 25.09 (74.84 kg, 172.72 cm) ss MDM: 09:35 Patient medically screened. [facility] 09:58 Data reviewed: vital signs, nurses notes, lab test result(s), EKG. [facility] 01/04 09:35 Order name: Acetaminophen; Complete Time: 11:12 [facility] 01/04 09:35 Order name: Basic Metabolic Panel; Complete Time: 11:12 [facility] 01/04 09:35 Order name: CBC with Diff; Complete Time: 11:12 [facility] 01/04 09:35 Order name: ETOH Level; Complete Time: 13:30 [facility] 01/04 09:35 Order name: Hepatic Function; Complete Time: 11:12 [facility] 01/04 09:35 Order name: PT-INR; Complete Time: 11:12 [facility] 01/04 09:35 Order name: Ptt, Activated; Complete Time: 11:12 [facility] 01/04 09:35 Order name: Salicylate; Complete Time: 13:30 [facility] 01/04 09:35 Order name: Urine Drug Screen [facility] 01/04 09:35 Order name: EKG; Complete Time: 09:36 [facility] 01/04 10:18 Order name: Urine Dipstick--Ancillary (enter results); Complete Time: 11:12 bd 01/04 10:27 Order name: Diet Finger Food; Complete Time: 10:27 dh3 01/04 11:13 Order name: Diet Regular; Complete Time: 11:14 [facility] 01/04 09:35 Order name: EKG - Nurse/Tech; Complete Time: 09:49 [facility] 01/04 09:35 Order name: IV Saline Lock; Complete Time: 09:49 [facility] 01/04 09:35 Order name: Labs collected and sent; Complete Time: 09:49 [facility] 04/06 09:35 Order name: Urine Dipstick-Ancillary (obtain specimen); Complete Time: 10:19 yamil Administered Medications: 10:33 Drug: NS 0.9% 1000 ml Route: IV; Rate: 1 bolus; Site: right hand; ph 17:08 Follow up: IV Status: Completed infusion; IV Intake: 500ml ph Disposition: 01/05/20 11:15 Transfer ordered to Psych Facility. Diagnosis are Major depressive disorder, recurrent, Suicidal ideations, Suicide attempt, Abuse of non-psychoactive substances. - Reason for transfer: Higher level of care. - Accepting physician is TO PSYCH. - Condition is Stable. - Problem is new. - Symptoms have improved. Signatures: Dispatcher [employer] EDRob Martinez MD MD cha Smirch, Shelby, RN RN Mirta Patricio RN RN ph Corrections: (The following items were deleted from the chart) 17:09 11:15 01/05/2020 11:15 Transfer ordered to Psych Facility. Diagnosis is Major ph depressive disorder, recurrent; Suicidal ideations; Suicide attempt; Abuse of non-psychoactive substances. Reason for transfer: Higher level of care. Accepting physician is TO PSYCH. Condition is Stable. Problem is new. Symptoms have improved. yamil
--- NOTE | 2020-01-05 11:16 | ER ---
Nurse's Notes [facility] Name: Bro Yung Age: 54 yrs Sex: Male : 1965 Arrival Date: 01/05/2020 Time: 09:35 Bed 17 Private MD: Diagnosis: Major depressive disorder, recurrent;Suicidal ideations;Suicide attempt;Abuse of non-psychoactive substances Presentation: 01/04 09:35 Chief complaint: Patient states: Roommate called 911 when he saw patient tie a small ss string to his neck and attach it to the fence. Witness told EMS that patient was never hanging freely, but just tied up. Pt denies pain, difficulty breathing. Pt reports that lately he has been having suicidal thoughts because of "addiction and life." Pt reports that he has attempted by hanging and carbon monoxide poisoning before in the past. Pt states that he does not wish to hurt any one except his brother because "he has got it coming to him.". Coronavirus screen: Proceed with normal triage. Patient denies a cough. Patient denies shortness of breath or difficulty breathing. Patient denies measured and/or subjective temperature greater than 100.4F prior to today's visit. Patient denies travel on a cruise ship or to a country the [facility] currently lists as an affected area. Patient denies contact with known and/or suspected case of COVID-19. Ebola Screen: Patient denies exposure to infectious person. Patient denies travel to an Ebola-affected area in the 21 days before illness onset. Initial Sepsis Screen: Does the patient meet any 2 criteria? No. Patient's initial sepsis screen is negative. Does the patient have a suspected source of infection? No. Patient's initial sepsis screen is negative. Risk Assessment: Do you want to hurt yourself or someone else? Patient reports no desire to harm self or others. Note Pt reports that he is homeless and is currently staying at the [facility] in [place], [place]. Onset of symptoms is unknown. Care prior to arrival: None. 09:35 Method Of Arrival: EMS: [facility] 09:35 Acuity: PATRICIO 2 ss Historical: - PMHx: 09:42 Anxiety; CHF; Depression; ss - PSHx: 09:42 nose; left ankle; Tonsillectomy; ss - Immunization history:: Adult Immunizations unknown. - Social history:: Smoking status: Patient reports the use of cigarette tobacco products, smokes one pack cigarettes per day. Patient uses street drugs, "whatever is available to me" Pt reports he most recently used Meth. - Family history:: not pertinent. Screenin:46 Abuse screen: Denies threats or abuse. Denies injuries from another. Nutritional ph screening: No deficits noted. Tuberculosis screening: No symptoms or risk factors identified. Fall Risk None identified. Assessment: 10:00 General: Appears in no apparent distress. Behavior is cooperative, appropriate for age, ph crying. Pain: Complains of pain in neck. Neuro: Level of Consciousness is awake, alert, obeys commands, Oriented to person, place, time, situation. Cardiovascular: Capillary refill < 3 seconds in bilateral fingers Patient's skin is warm and dry. Respiratory: Airway is patent Trachea midline Respiratory effort is even, unlabored, Respiratory pattern is regular, symmetrical, Denies shortness of breath pain with respiration. GI: No signs and/or symptoms were reported involving the gastrointestinal system. Derm: Skin is intact, is healthy with good turgor, Skin is pink, warm \\T\\ dry. Musculoskeletal: Circulation, motion, and sensation intact. Range of motion: intact in all extremities. 11:00 Reassessment: Patient appears in no apparent distress at this time. Patient and/or ph family updated on plan of care and expected duration. Pain level reassessed. Patient is alert, oriented x 3, equal unlabored respirations, skin warm/dry/pink. 12:00 Reassessment: Patient appears in no apparent distress at this time. Patient and/or ph family updated on plan of care and expected duration. Pain level reassessed. Patient is alert, oriented x 3, equal unlabored respirations, skin warm/dry/pink. 13:00 Reassessment: Patient appears in no apparent distress at this time. Patient and/or ph family updated on plan of care and expected duration. Pain level reassessed. Pt asleep w/ equal and unlabored respirations, sitter remains outside of room w/ curtain open. 14:00 Reassessment: Patient appears in no apparent distress at this time. No changes from ph previously documented assessment. Patient and/or family updated on plan of care and expected duration. Pain level reassessed. 15:00 Reassessment: Patient appears in no apparent distress at this time. No changes from previously documented assessment. Patient and/or family updated on plan of care and expected duration. Pain level reassessed. 16:00 Reassessment: Patient appears in no apparent distress at this time. Patient and/or ph family updated on plan of care and expected duration. Pain level reassessed. Patient is alert, oriented x 3, equal unlabored respirations, skin warm/dry/pink. Acceptance received at [facility], transfer form signed by pt, awaiting EMS for transfer. 17:01 Reassessment: Patient appears in no apparent distress at this time. Patient and/or ph family updated on plan of care and expected duration. Pain level reassessed. Patient is alert, oriented x 3, equal unlabored respirations, skin warm/dry/pink. Report given to [facility], pt transferred to [facility]. Psych: 09:46 Subjective: Patient's mood is sad, hopeless, Delusions are denied, Hallucinations are ph denied Having thoughts of suicide. Objective: Patient is cooperative, Speech is normal, Affect is appropriate. Interventions: Removed personal items and placed in bag. Patient placed in hospital gown. Urine collected and sent for urine drug test. Belonging list filled out. Suicide Risk Assessment: Sad Person Scale: Sex of patient: Male: Score 1 point. Age of patient: Score 0 point if patient falls outside of specified age parameters. Depression: Score 1 point if signs of depression are present. Previous Attempt: Score 1 point if patient has previously attempted suicide. Substance Abuse: Score 1 point if patient abuses alcohol or drugs. Rational Thinking: Score 1 point if patient is lacking rational thinking. Social Support: Score 1 point if social support is lacking and/or unavailable. Organized Plan: Score 1 point if patient had a plan in place. Relationship: Score 1 point if patient is , , , or for a single male Chronic Sickness: Score 0 point if patient does not have a chronic illness, debilitating, or severe disorder. TOTAL POINTS: If total points are 7-10, the proposed clinical action is to hospitalize or commit. Implement suicide precautions. Safety Checks: Personal items have been removed. Door is open. No visitors are present at this time. 09:50 Patient uses methamphetamines Last use was 2 days ago. 16:50 Commitment: Patient will be a voluntary commitment. Vital Signs: 09:35 BP 102 / 67; Pulse 73; Resp 16; Temp 97.8(TE); Pulse Ox 99% on R/A; Weight 74.84 kg; Height 5 ft. 8 in. (172.72 cm); Pain 0/10; 09:35 Body Mass Index 25.09 (74.84 kg, 172.72 cm) ED Course: 09:35 Patient arrived in ED. 09:35 Rob Stein MD is Attending Physician. [facility] 09:36 Mirta Patricio, JESSICA is Primary Nurse. ph 09:41 Triage completed. ss 09:42 Arm band placed on right wrist. ss 09:46 No provider procedures requiring assistance completed. ph 09:48 Patient has correct armband on for positive identification. Placed in gown. Bed in low ph position. Call light in reach. Side rails up X 1. court monitor on. Pulse ox on. NIBP on. Noise minimized. Warm blanket given. 10:02 Initial lab(s) drawn, by or, sent to lab. Inserted saline lock: 22 gauge in right hand, dh3 using aseptic technique. Blood collected. 10:05 EKG done, by tomographic tech. reviewed by Rob Stein MD. at1 10:19 Urine collected: clean catch specimen, sherley colored. dh3 11:54 faxed chart to [facility], [facility], [facility], [facility]. 17:07 IV discontinued, intact, bleeding controlled, No redness/swelling at site. Pressure ph dressing applied. Administered Medications: 10:33 Drug: NS 0.9% 1000 ml Route: IV; Rate: 1 bolus; Site: right hand; ph 17:08 Follow up: IV Status: Completed infusion; IV Intake: 500ml ph Intake: 17:08 IV: 500ml; Total: 500ml. ph Outcome: 11:15 ER care complete, transfer ordered by . [facility] 17:03 Transferred by [facility]. ph 17:03 Condition: stable 17:03 Discharge instructions given to patient, Instructed on the need for transfer. 17:09 Patient left the ED. ph Signatures: Jayna Squires Corey, MD MD cha Smirch, Shelby, JESSICA RN Rossy Mae, career development specialist EKG Tat1 Mirta Patricio, JESSICA RN Roxie Browning 3
--- NOTE | 2020-01-05 16:48 | EKG ---
Test Date: 2020-01-05 Test Time: 09:53:33 Coke Drawer Hand: SEJAL MEASUREMENT RESULTS: Intervals: Rate: 68 MS: 114 QRSD: 84 QT: 412 QTc: 438 [place]: P: 63 MS: 114 QRS: 81 T: 56 INTERPRETIVE STATEMENTS: Normal sinus rhythm Normal ECG Compared to ECG 10/19/2019 03:37:03 No significant changes Electronically Signed On 01-05-20 16:47:12 CDT by Chidi Porter
[2020-01-05 17:15] VITALS: BP 102/67; TEMP 97.8; O2SAT 99
[2020-01-05 17:19] LABS: Barbiturates NEGATIVE (NEGATIVE); Benzodiazepines NEGATIVE (NEGATIVE); Cocaine NEGATIVE (NEGATIVE); METHAMPHETAM POSITIVE (NEGATIVE); Methadone NEGATIVE (NEGATIVE); Opiates NEGATIVE (NEGATIVE); Phencyclidine NEGATIVE (NEGATIVE); THC Cannibis NEGATIVE (NEGATIVE)
== END 2020-01-05 17:09 ==
LOC: ER 09:28
DX: F33.9 Major depressive disorder, recurrent, unspecified (principal); F55.8 Abuse of other non-psychoactive substances; X83.8XXA Intentional self-harm by other specified means, initial encounter; Y92.9 Unspecified place or not applicable; F17.210 Nicotine dependence, cigarettes, uncomplicated
CPT/HCPCS: 36415; 80048; 80076; 80307; 80320; 80329; 81003; 85025; 85610; 85730; 93005; 96360; 96361; 99285; J7030

== ENCOUNTER 2020-02-03 17:37 | Emergency (ER) | payer SELFPAY ==
--- OUTSIDE RECORDS SUMMARY | 2020-02-03 17:39 | XMS REPORT | Summary of Care ---
:1965 Author Organization [facility] Address [address] [place] [id number] Care Team Providers Name Role Phone Pcp, Does Not Have A Primary Care Provider Reason for Visit Auth/Cert Status Reason Specialty Diagnoses / Procedures Referred By Manny lara Referred To Contact [facility] [address] [place] [address] Phone: Encounter Details Date Type Department Care Team Description 01/05/2020 Hospital Encounter [facility] Fritz Gonzalez, CENTER [address] [id number] [place] [address] Allergies No Known Allergiesdocumented as of this encounter (statuses as of 01/08/2020) Medications Not on filedocumented as of this encounter (statuses as of 01/08/2020) Active Problems Not on filedocumented as of this encounter (statuses as of 01/08/2020) Social History Tobacco Use Types Packs/Day Years Used Date Never Assessed Sex Assigned at Date Recorded Not on file Job Start Date Occupation Industry Not on file Not on file Not on file Travel History Travel Start Travel End No recent travel history available. documented as of this encounter Last Filed Vital Signs Not on filedocumented in this encounter Plan of Treatment Health Maintenance Due Date Last Done Comments DTaP,Tdap,and Td Vaccines (1 - 1978 Tdap) COLONOSCOPY 2017 Zoster Recombinant Vaccine 2017 (SHINGRIX) (1 of 2) INFLUENZA VACCINE (#1) 2019 PNEUMOCOCCAL 0-64 YEARS COMBINED Aged Out No longer eligible based on SERIES patient's age to complete this topic documented as of this encounter Results Not on filedocumented in this encounter
--- OUTSIDE RECORDS SUMMARY | 2020-02-03 17:39 | XMS REPORT ---
:1965 Author Organization [facility] t Address [address] [place] [address] Care Team Providers Name Role Phone UNKNOWN Primary Care Provider Unavailable Problems This patient has no known problems. Allergies, Adverse Reactions, Alerts This patient has no known allergies or adverse reactions. Medications This patient has no known medications. Encounters Start End Encounter Admission Attending Care Care Encounter Date/Time Date/Time Type Type Clinicians Facility Department ID 2016-11-13 Inpatient E [facility] [id number] 23:30:00 Results Test Description Test Time Test Comments Text Results Atomic Results Result Comments Comprehensive Metabolic Panel 2020-01-10 08:29:05 Test Item Value Reference Range Comments Sodium Level (test code = Sodium Level) 140.0 mmol/L 135.0-14 5.0 Potassium Level (test code = Potassium Level) 4.1 mmol/L 3. 5-5.1 Chloride Level (test code = Chloride Level) 100 mmol/L 98-1 05 CO2 (test code = CO2) 27 mmol/L 22-29 Anion Gap (test code = Anion Gap) 13 mmol/L 7-16 BUN (test code = BUN) 18.30 mg/dL 6.00-20.00 Creatinine Level (test code = Creatinine Level) 0.80 mg/dL 0.70-1.20 BUN/Creat Ratio (test code = BUN/Creat Ratio) 23 Glucose Level (test code = Glucose Level) 96 mg/dL 70-115 Calcium Level (test code = Calcium Level) 9.4 mg/dL 8.3-10 .5 Alk Phos (test code = Alk Phos) 57 U/L 40-129 Bilirubin Total (test code = Bilirubin Total) 0.4 mg/dL 0. 1-0.9 Albumin Level (test code = Albumin Level) 4.4 g/dL 3.5-5. 2 Protein Total (test code = Protein Total) 7.6 g/dL 6.4-8. 3 ALT (test code = ALT) 44 U/L 1-41 AST (test code = AST) 34 U/L 1-40 Globulin (test code = Globulin) 3.2 g/dL 2.9-3.1 A/G Ratio (test code = A/G Ratio) 1.4 ratio Comprehensive Metabolic [id number] 08:29:05 Test Item Value Reference Range Comments Sodium Level (test code = 140.0 mmol/L 135.0-145.0 Sodium Level) Potassium Level (test 4.1 mmol/L 3.5-5.1 code = Potassium Level) Chloride Level (test code 100 mmol/L 98-105 = Chloride Level) CO2 (test code = CO2) 27 mmol/L 22-29 Anion Gap (test code = 13 mmol/L 7-16 Anion Gap) BUN (test code = BUN) 18.30 mg/dL 6.00-20.00 Creatinine Level (test 0.80 mg/dL 0.70-1.20 code = Creatinine Level) BUN/Creat Ratio (test 23 code = BUN/Creat Ratio) Glucose Level (test code 96 mg/dL 70-115 = Glucose Level) Calcium Level (test code 9.4 mg/dL 8.3-10.5 = Calcium Level) Alk Phos (test code = Alk 57 U/L 40-129 Phos) Bilirubin Total (test 0.4 mg/dL 0.1-0.9 code = Bilirubin Total) Albumin Level (test code 4.4 g/dL 3.5-5.2 = Albumin Level) Protein Total (test code 7.6 g/dL 6.4-8.3 = Protein Total) ALT (test code = ALT) 44 U/L 1-41 AST (test code = AST) 34 U/L 1-40 Globulin (test code = 3.2 g/dL 2.9-3.1 Globulin) A/G Ratio (test code = 1.4 ratio A/G Ratio) eGFR AA (test code = eGFR >60 mL/min/1.73 m2 eGF R (estimated AA) Glomerular Filtr ation Rate) is an apolinar mated value, calculate d from the patient's se rum creatinine using the MDRD equation. It is NOT the patient's actual GFR. The eGFR provides a more clinically usefu l measure of kidney diseas e than serum creatinine alone.This ca lculation takes sex and ra ce into account, if the information is p rovided. If the race is n ot provided, and th e patient is -Ameri can, multiply by 1.21 2. If sex is not provided, and the patient is femal e, multiply by 0.74 2. Results for magdalena ents <18 years of age hav e not been validated b y the MDRD study and s maria d be interpreted with caution. eGFR Result Interpretation:e GFR > or = 60 is in the N ormal RangeeGFR < 60 m ay mean kidney diseaseeG FR < 15 may mean kidney failure Range s recommended by leela esquivel [employer] Foundation, http://nkdep.nih .gov Comprehensive Metabolic [id number] 08:29:05 Test Item Value Reference Range Comments Sodium Level (test code = 140.0 mmol/L 135.0-145.0 Sodium Level) Potassium Level (test 4.1 mmol/L 3.5-5.1 code = Potassium Level) Chloride Level (test code 100 mmol/L 98-105 = Chloride Level) CO2 (test code = CO2) 27 mmol/L 22-29 Anion Gap (test code = 13 mmol/L 7-16 Anion Gap) BUN (test code = BUN) 18.30 mg/dL 6.00-20.00 Creatinine Level (test 0.80 mg/dL 0.70-1.20 code = Creatinine Level) BUN/Creat Ratio (test 23 code = BUN/Creat Ratio) Glucose Level (test code 96 mg/dL 70-115 = Glucose Level) Calcium Level (test code 9.4 mg/dL 8.3-10.5 = Calcium Level) Alk Phos (test code = Alk 57 U/L 40-129 Phos) Bilirubin Total (test 0.4 mg/dL 0.1-0.9 code = Bilirubin Total) Albumin Level (test code 4.4 g/dL 3.5-5.2 = Albumin Level) Protein Total (test code 7.6 g/dL 6.4-8.3 = Protein Total) ALT (test code = ALT) 44 U/L 1-41 AST (test code = AST) 34 U/L 1-40 Globulin (test code = 3.2 g/dL 2.9-3.1 Globulin) A/G Ratio (test code = 1.4 ratio A/G Ratio) eGFR AA (test code = eGFR >60 mL/min/1.73 m2 eGF R (estimated AA) Glomerular Filtr ation Rate) is an apolinar mated value, calculate d from the patient's se rum creatinine using the MDRD equation. It is NOT the patient's actual GFR. The eGFR provides a more clinically usefu l measure of kidney diseas e than serum creatinine alone.This ca lculation takes sex and ra ce into account, if the information is p rovided. If the race is n ot provided, and th e patient is -Ameri can, multiply by 1.21 2. If sex is not provided, and the patient is femal e, multiply by 0.74 2. Results for magdalena ents <18 years of age hav e not been validated b y the MDRD study and s hould be interpreted with caution. eGFR Result Interpretation:e GFR > or = 60 is in the N ormal RangeeGFR < 60 m ay mean kidney diseaseeG FR < 15 may mean kidney failure Range s recommended by leela esquivel National [employer] Foundation, http://nkdep.nih .gov eGFR Non-AA (test code = >60.00 mL/min/1.73 eGFR (estimated eGFR Non-AA) m2 Glomerular Filtr ation Rate) is an apolinar mated value, calculate d from the patient's se rum creatinine using the MDRD equation. It is NOT the patient's actual GFR. The eGFR provides a more clinically usefu l measure of kidney diseas e than serum creatinine alone.This ca lculation takes sex and ra ce into account, if the information is p rovided. If the race is n ot provided, and th e patient is -Ameri can, multiply by 1.21 2. If sex is not provided, and the patient is femal e, multiply by 0.74 2. Results for magdalena ents <18 years of age hav e not been validated b y the MDRD study and s hould be interpreted with caution. eGFR Result Interpretation:e GFR > or = 60 is in the N ormal RangeeGFR < 60 m ay mean kidney diseaseeG FR < 15 may mean kidney failure Range s recommended by leela esquivel National Kidney Foundation, http://nkdep.nih .gov Complete Blood Count without [id number] 08:07:00 Test Item Value Reference Range Comments WBC (test code = WBC) 14.6 x10 4.4-10.5 RBC (test code = RBC) 5.15 x10 4.10-5.70 Hgb (test code = Hgb) 16.6 g/dL 13.4-17.4 Hct (test code = Hct) 49.7 % 38.7-52.0 MCV (test code = MCV) 96.50 fL 80.00-100.00 MCH (test code = MCH) 32.2 pg 27.0-32.5 MCHC (test code = MCHC) 33.40 g/dL 32.00-37.50 RDW CV (test code = RDW CV) 11.9 % 11.5-14.5 Platelets (test code = Platelets) 204.0 x10 140.0-440.0 MPV (test code = MPV) 8.5 fL nRBC (test code = nRBC) 0 NRBC Abs (test code = NRBC Abs) 0.00 x10 IPF (test code = IPF) 0 % RPR [id number] 11:58:31 Test Item Value Reference Range Comments RPR Qual (test code = RPR Qual) Non-Reactive Non-Reactive Reactive Control (test code = Reactive Reactive Control) Weak Reactive Control (test code = Weak Weak Reactive Reactive Control) Non-Reactive Control (test code = Non-Reactive Non-Reactive Control) Lot # (test code = Lot #) [id number] Expiration Dt (test code = Expiration Dt) 09-30-2020 Thyroid Stimulating [id number] 07:31:59 Test Item Value Reference Range Comments TSH (test code = TSH) 1.000 mIU/mL 0.270-4.200 Lipid [id number] 07:11:41 Test Item Value Reference Range Comments Cholesterol Total (test code 176 mg/dL 0-200 RIS K OF HEART DISEASEPublished = Cholesterol Total) by [employer] [employer] Analyte Optimal Borderline Increased RiskCH OL <200 200-239 >240TRIG <150 150-199 >200HDL Male >6 0 <40HDL Female >60 <50 LDL <100 130-159 >160LDL Near optimal is 100-129 Triglycerides (test code = 68 mg/dL 9-200 Triglycerides) HDL (test code = HDL) 43 mg/dL 40-60 LDL (test code = LDL) 119 mg/dL 0-130 The equati on being used in this calculation is LDL = (Chol - HDL) - (Trig / 5 ) VLDL (test code = VLDL) 14 mg/dL 5-40 The equa tion being used in this calculation is VLDL = Trig / 5 Chol/HDL (test code = 4.1 ratio 0.0-5.0 Chol/HDL) LDL/HDL Ratio (test code = 3 The e quation being used in this LDL/HDL Ratio) calculation is LDL/HDL Ratio=LDL Calc/H DL Chol
--- NOTE | 2020-02-03 18:19 | ER ---
Nurse's Notes [facility] Name: Bro Yung Age: 54 yrs Sex: Male : 1965 Arrival Date: 02/03/2020 Time: 17:38 Bed 8 Private MD: Diagnosis: Attic perforation of tympanic membrane, unspecified ear Presentation: 02/02 17:44 Chief complaint: Patient states: Right ear pain for 3 months. Had a round of ll1 amoxicillin, no relief. Noticed bloody drainage from ear now. Coronavirus screen: Proceed with normal triage. Patient denies a cough. Patient denies shortness of breath or difficulty breathing. Patient denies measured and/or subjective temperature greater than 100.4F prior to today's visit. Patient denies travel on a cruise ship or to a country the [facility] currently lists as an affected area. Patient denies contact with known and/or suspected case of COVID-19. Ebola Screen: Patient denies travel to an Ebola-affected area in the 21 days before illness onset. Initial Sepsis Screen: Does the patient meet any 2 criteria? No. Patient's initial sepsis screen is negative. Does the patient have a suspected source of infection? No. Patient's initial sepsis screen is negative. Risk Assessment: Do you want to hurt yourself or someone else? Patient reports no desire to harm self or others. Onset of symptoms was November 05, 2019. 17:44 Method Of Arrival: Ambulatory ll1 17:44 Acuity: PATRICIO 4 ll1 Historical: - Allergies: 17:47 No Known Allergies; ll1 - PMHx: 17:47 Depression; CHF; Anxiety; ll1 - PSHx: 17:47 nose; Tonsillectomy; left ankle; ll1 - Immunization history:: Adult Immunizations up to date. - Social history:: Smoking status: Patient reports the use of cigarette tobacco products, smokes one pack cigarettes per day. Patient/guardian denies using alcohol, street drugs. Screenin:48 Abuse screen: Denies threats or abuse. Denies injuries from another. Nutritional ss screening: No deficits noted. Tuberculosis screening: Never had TB. Fall Risk None identified. Assessment: 17:48 General: Appears in no apparent distress. comfortable, Behavior is calm, cooperative. ss Pain: Complains of pain in right ear Pain currently is 3 out of 10 on a pain scale. Quality of pain is described as aching. Pain: Pain began x 3 months Is continuous. Neuro: Level of Consciousness is awake, alert, obeys commands, Oriented to person, place, time, situation. Respiratory: Airway is patent Respiratory effort is even, unlabored, Respiratory pattern is regular, symmetrical. GI: Patient currently denies nausea. EENT: Oral mucosa is moist. Derm: Skin is intact, is healthy with good turgor, Skin is dry, Skin is pink, warm \T\ dry. normal. Vital Signs: 17:44 BP 127 / 77; Pulse 82; Resp 17; Temp 98.4; Pulse Ox 97% ; Pain 3/10; ll1 ED Course: 17:38 Patient arrived in ED. 5 17:40 Malcolm Miramontes RN is Primary Nurse. sean 17:40 Miguel Bryant PA is PHCP. [facility] 17:40 Nestor Hammond MD is Attending Physician. [facility] 17:46 Triage completed. 1 17:47 Arm band placed on Patient placed in an exam room, on a stretcher. 1 17:48 Sugey Dc RN is Primary Nurse. 7 17:48 Patient has correct armband on for positive identification. Bed in low position. Call ss light in reach. 18:18 Melani Browning MD is Referral Physician. [facility] 18:40 No provider procedures requiring assistance completed. Patient did not have IV access ss during this emergency room visit. Administered Medications: No medications were administered Outcome: 18:18 Discharge ordered by MD. [facility] 18:40 Discharged to home ambulatory. 18:40 Condition: good 18:40 Discharge instructions given to patient, Instructed on discharge instructions, follow up and referral plans. medication usage, Demonstrated understanding of instructions, follow-up care, medications, Prescriptions given X 1. 18:41 Patient left the ED. Signatures: Miguel Bryant PA PA jmm Smirch, Shelby, RN RN Malcolm Miramontes RN RN [facility] Aram Neely 5 Jolly Santoyo RN RN 1
--- NOTE | 2020-02-03 18:19 | EDPHYS ---
Physician Documentation [facility] Name: Bro Yung Age: 54 yrs Sex: Male : 1965 Arrival Date: 02/03/2020 Time: 17:38 Bed 8 Private MD: ED Physician Nestor Hammond HPI: 02/02 18:12 This 54 yrs old Male presents to ER via Ambulatory with complaints of Ear jmm Pain. 18:12 The patient presents with an injury, pain. Onset: The symptoms/episode began/occurred jmm acutely, just prior to arrival. Modifying factors: The symptoms are alleviated by nothing, the symptoms are aggravated by nothing. This is a 54 year old male with no chronic medical conditions that presents to the ED with complaints of right ear pain after using a q tip to clean his right ear. Patient states he developed bleeding immediately. Patient has had ongoing pain for 3 onths to the right ear. Patient recently finished a round of amoxicillin for OM. . Historical: - Allergies: 17:47 No Known Allergies; ll1 - PMHx: 17:47 Depression; CHF; Anxiety; ll1 - PSHx: 17:47 nose; Tonsillectomy; left ankle; ll1 - Immunization history:: Adult Immunizations up to date. - Social history:: Smoking status: Patient reports the use of cigarette tobacco products, smokes one pack cigarettes per day. Patient/guardian denies using alcohol, street drugs. ROS: 18:12 Constitutional: Negative for fever, chills, and weight loss. jmm 18:12 Cardiovascular: Negative for chest pain, palpitations, and edema, Respiratory: Negative for shortness of breath, cough, wheezing, and pleuritic chest pain. 18:12 ENT: Positive for ear pain. 18:12 All other systems are negative. Exam: 18:12 Constitutional: This is a well developed, well nourished patient who is awake, alert, jmm and in no acute distress. Head/Face: atraumatic. Eyes: EOMI, no conjunctival erythema appreciated 18:12 Chest/axilla: Normal chest wall appearance and motion. Cardiovascular: Regular rate and rhythm. No edema appreciated Respiratory: Normal respirations, no respiratory distress appreciated Abdomen/GI: Non distended, soft Back: Normal ROM Skin: General appearance color normal MS/ Extremity: Moves all extremities, no obvious deformities appreciated, no edema noted to the lower extremities Neuro: Awake and alert, normal gait Psych: Behavior is normal, Mood is normal, Patient is cooperative and pleasant 18:12 ENT: TM's: erythema, that is moderate, on the right, rupture, on the right, with bloody discharge. Vital Signs: 17:44 BP 127 / 77; Pulse 82; Resp 17; Temp 98.4; Pulse Ox 97% ; Pain 3/10; ll1 MDM: 18:05 Patient medically screened. [facility] 18:16 Data reviewed: vital signs, nurses notes. Counseling: I had a detailed discussion with salvatore the patient and/or guardian regarding: the historical points, exam findings, and any diagnostic results supporting the discharge/admit diagnosis, the need for outpatient follow up, to return to the emergency department if symptoms worsen or persist or if there are any questions or concerns that arise at home. ED course: Patient is alert and non toxic in appearance in the ED. Perforation most likely secondary to trauma. Will cover with abx. Patient advised to follow up with ENT for further evaluation. Patient understood and agrees with the plan of care. . Administered Medications: No medications were administered Disposition: 19:12 Co-signature as Attending Physician, Nestor Hammond MD Available for consultation in ps1 the ED. . Disposition: 02/03/20 18:18 Discharged to Home. Impression: Attic perforation of tympanic membrane, unspecified ear. - Condition is Stable. - Discharge Instructions: Eardrum Rupture, Adult. - Prescriptions for Augmentin 875- 125 mg Oral Tablet - take 1 tablet by ORAL route every 12 hours for 10 days; 20 tablet. - Medication Reconciliation Form, Thank You Letter, Antibiotic Education, Prescription Opioid Use form. - Follow up: Melani Browning MD; When: 2 - 3 days; Reason: Recheck today's complaints, Continuance of care, Re-evaluation by your physician. Signatures: Miguel Bryant PA PA jmm Smirch, Shelby, RN RN ss Singer, Phillip, MD MD ps1 Jolly Santoyo RN RN ll1 Corrections: (The following items were deleted from the chart) 18:41 18:18 02/03/2020 18:18 Discharged to Home. Impression: Attic perforation of tympanic ss membrane, unspecified ear. Condition is Stable. Forms are Medication Reconciliation Form, Thank You Letter, Antibiotic Education, Prescription Opioid Use. Follow up: Melani Browning; When: 2 - 3 days; Reason: Recheck today's complaints, Continuance of care, Re-evaluation by your physician. salvatore
[2020-02-03 22:39] VITALS: BP 127/77; TEMP 98.4; O2SAT 97
== END 2020-02-03 18:41 | disposition home or self-care (01) ==
LOC: ER 17:37
DX: H72.11 Attic perforation of tympanic membrane, right ear (principal); F17.210 Nicotine dependence, cigarettes, uncomplicated
CPT/HCPCS: 99282

== ENCOUNTER 2020-04-10 16:04 | Emergency (ER) | payer SELFPAY ==
--- OUTSIDE RECORDS SUMMARY | 2020-04-10 16:06 | XMS REPORT | Clinical Summary ---
:1965 Author Organization [facility] Address [facility] [place] [address] Care Team Providers Name Role Phone Unavailable Primary Care Provider Unavailable Allergies No Known Allergies Medications Medication Sig Dispensed Refills Start Date End Date Status miconazole (MICOTIN) 2 Apply to affected 28.35 g 0 6 Active % topical area 2 times creamIndications: Jock daily. itch famotidine (PEPCID) 40 Take 1 tablet by 28 tablet 0 08/18/2016 Active mg tabletIndications: mouth daily. Heartburn traZODone (DESYREL) Take 2 tablets by 56 tablet 0 08/18/2016 Active 100 mg mouth at bedtime tabletIndications: nightly. Insomnia, unspecified type tiotropium (SPIRIVA Inhale 1 capsule 30 capsule 0 08/18/2016 Active WITH HANDIHALER) 18 by mouth daily. mcg inhalation capsuleIndications: COPD (chronic obstructive pulmonary disease) with chronic bronchitis FLUoxetine (PROZAC) 20 Take 1 capsule by 28 capsule 0 08/18/20 16 Active mg capsuleIndications: mouth daily. Recurrent major depressive disorder, remission status unspecified HYDROcodone-acetaminop Take 1 tablet by 0 Active hen (NORCO) 10-325 mg mouth every 6 tablet hours as needed for Pain. FLUoxetine (PROZAC) 20 Take 1 capsule by 14 capsule 0 11/19/19 17 Active mg capsuleIndications: mouth daily. Substance induced mood disorder traMADol (ULTRAM) 50 Take 1 tablet by 8 tablet 0 11/19/2016 Active mg tabletIndications: mouth every 6 Hx of fracture of leg hours as needed for Pain. naproxen (NAPROSYN) Take 1 tablet by 28 tablet 0 12/25/2016 Active 500 mg mouth 2 times tabletIndications: daily (with Pain in left foot meals). miconazole (MICOTIN) 2 Apply to affected 28.35 g 0 7 Active % topical area 2 times creamIndications: daily. Tinea cruris acetaminophen-codeine Take 1 tablet by 25 tablet 0 12/27/2016 Active (TYLENOL/CODEINE #3) mouth every 6 300-30 mg per hours as needed tabletIndications: S/P for Pain. ORIF (open reduction internal fixation) fracture baclofen (LIORESAL) 10 Take 1 tablet by 90 tablet 2 01/30/2017 Active mg tabletIndications: mouth 3 times S/P ORIF (open daily. reduction internal fixation) fracture, Chronic back pain, unspecified back location, unspecified back pain laterality gabapentin (NEURONTIN) Take 1 capsule by 90 capsule 2 01/31/20 17 Active 400 mg mouth 3 times capsuleIndications: daily. S/P ORIF (open reduction internal fixation) fracture, Chronic back pain, unspecified back location, unspecified back pain laterality albuterol (VENTOLIN Inhale 2 Puffs by 20.1 g 2 01/30/2017 Active HFA,PROVENTIL mouth 4 times HFA,PROAIR HFA) 90 daily as needed mcg/actuation for Wheezing. 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 06/12/2016 Enlarged heart 06/02/2016 Screening for depression 05/23/2016 Screening for alcoholism 05/23/2016 Methamphetamine abuse 12/02/2014 Cocaine abuse 12/02/2014 Polysubstance dependence 12/02/2014 Substance induced mood disorder 12/02/2014 Insomnia 08/10/2014 Alcohol abuse 08/10/2014 Partial edentulism 02/27/2012 History of alcohol abuse 02/27/2012 History of substance abuse 02/27/2012 Depression 02/27/2012 ADHD (attention deficit hyperactivity disorder) 2011 Tobacco use disorder 02/27/2012 Depression with suicidal ideation Suicidal ideation Immunizations Name Administration Dates Next Due Influenza Vaccine 07/03/2016 PPD 02/27/2012, 02/13/2011 Family History Medical History Relation Name Comments Unknown Fam Hx Father Diabetes Maternal Grandmother Unknown Fam Hx Mother Relation Name Status Comments Father Alive Maternal Grandmother Mother Alive Social History Tobacco Use Types Packs/Day Years Used Date Current Every Day Smoker Cigarettes 1 25 Smokeless Tobacco: Never Used Tobacco Cessation: Ready to Quit: No Comments: states is interested in smokin g cessation class states is still attending smoking cessation classes 05/08/12 Alcohol Use Drinks/Week oz/Week Comments Yes 12 Cans of beer 10.0 12pk beer daily Sex Assigned at Date Recorded Not on file Job Start Date Occupation Industry Not on file Not on file Not on file Travel History Travel Start Travel End No recent travel history available. Last Filed Vital Signs Not on file Plan of Treatment Health Maintenance Due Date Last Done Comments Colorectal Cancer Scrn Annual (FIT/FOBT) Age 50 to 75 2017 IMM Influenza Seasonal Jul to November (>/= 19 yrs) 07/01/2020 07/03/2016 Results Not on fileafter 04/10/2019 Advance Directives Code Status Date Activated Date Inactivated Comments Full Code 08/10/2014 8:10 PM 08/11/2014 10:49 AM
--- OUTSIDE RECORDS SUMMARY | 2020-04-10 16:08 | XMS REPORT | Continuity of Care Document ---
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 XR LEFT ANKLE 3 VIEWS Cent er EXAM: XR LEFT FOOT 3 VIEWS DATE: 11/18/2016 6:58 PM [employer] INDICATION: Pain, Trauma COMPARISON: X-ray left ankle 3 views 11/12/2015 and 11/09/2016; x-ray left foot 3 views 11/12/2016 and 11/09/2016; x-ray left tibia and fibula 11/09/2016 TECHNIQUE: AP and lateral vi ews of the left tibia-fibula, AP, lateral and oblique radiographs of the left ankle, AP lateral and oblique views of the left foot. FINDINGS: Tibia-fibula: The proximal a nd mid regions of the tibia and fibula are unremarkable in appearance. An external fixation device is also noted. Screws are identified within the mid tibial diaphysis without evidence of hardware failure. Ankle: The previous identifi ed unstable trimalleolar ankle fracture is stable in appearance when compared to most recent scan performed on November 12. Fracture components include a transverse intra-art icular fracture of the left medial malleolus, coronal oblique comminuted Rodriguez C fracture of the distal fibula and a coronal oblique intra-articular fracture of the posterior malleolus. Persistent moder ate soft tissue swelling is identified at the an kle. Foot: No acute fracture or m alalignment is identified. Mild soft tissue swelling is identified overlying the forefoot.. IMPRESSION: 1. Unchanged alignment of u nstable trimalleolar ankle fracture with involvement of the medial malleolus, distal fibula and posterior malleolus status post external fixation and reduction. 2. Moderate circumferential soft tissue swelling at the ankle with mild soft tissue swelling overlying the forefoot. Ankle 3 views DX EXAM: XR LEFT TIBIA-FIBULA 2 VIEWS 11/18/2016 [facility] Medical EXAM: XR LEFT ANKLE 3 VIEWS [facility] er EXAM: XR LEFT FOOT 3 VIEWS DATE: 11/18/2016 6:58 PM [employer] INDICATION: Pain, Trauma COMPARISON: X-ray left ankle 3 views 11/12/2015 and 11/09/2016; x-ray left foot 3 views 11/12/2016 and 11/09/2016; x-ray left tibia and fibula 11/09/2016 TECHNIQUE: AP and lateral vi ews of the left tibia-fibula, AP, lateral and oblique radiographs of the left ankle, AP lateral and oblique views of the left foot. FINDINGS: Tibia-fibula: The proximal a nd mid regions of the tibia and fibula are unremarkable in appearance. An external fixation device is also noted. Screws are identified within the mid tibial diaphysis without evidence of hardware failure. Ankle: The previous identifi ed unstable trimalleolar ankle fracture is stable in appearance when compared to most recent scan performed on November 12. Fracture components include a transverse intra-art icular fracture of the left medial malleolus, coronal oblique comminuted Rodriguez C fracture of the distal fibula and a coronal oblique intra-articular fracture of the posterior malleolus. Persistent moder ate soft tissue swelling is identified at the an kle. Foot: No acute fracture or m alalignment is identified. Mild soft tissue swelling is identified overlying the forefoot.. IMPRESSION: 1. Unchanged alignment of u nstable trimalleolar ankle fracture with involvement of the medial malleolus, distal fibula and posterior malleolus status post external fixation and reduction. 2. Moderate circumferential soft tissue swelling at the ankle with mild soft tissue swelling overlying the forefoot. Tibia fibula series EXAM: XR LEFT TIBIA-FIBULA 2 VIEWS 7 [facility] DX EXAM: XR LEFT ANKLE 3 VIEWS Cent er EXAM: XR LEFT FOOT 3 VIEWS DATE: 11/18/2016 6:58 PM [employer] INDICATION: Pain, Trauma COMPARISON: X-ray left ankle 3 views 11/12/2015 and 11/09/2016; x-ray left foot 3 views 11/12/2016 and 11/09/2016; x-ray left tibia and fibula 11/09/2016 TECHNIQUE: AP and lateral vi ews of the left tibia-fibula, AP, lateral and oblique radiographs of the left ankle, AP lateral and oblique views of the left foot. FINDINGS: Tibia-fibula: The proximal a nd mid regions of the tibia and fibula are unremarkable in appearance. An external fixation device is also noted. Screws are identified within the mid tibial diaphysis without evidence of hardware failure. Ankle: The previous identifi ed unstable trimalleolar ankle fracture is stable in appearance when compared to most recent scan performed on November 12. Fracture components include a transverse intra-art icular fracture of the left medial malleolus, coronal oblique comminuted Rodriguez C fracture of the distal fibula and a coronal oblique intra-articular fracture of the posterior malleolus. Persistent moder ate soft tissue swelling is identified at the an kle. Foot: No acute fracture or m alalignment is identified. Mild soft tissue swelling is identified overlying the forefoot.. IMPRESSION: 1. Unchanged alignment of u nstable trimalleolar ankle fracture with involvement of the medial malleolus, distal fibula and posterior malleolus status post external fixation and reduction. 2. Moderate circumferential soft tissue swelling at the ankle with mild soft tissue swelling overlying the forefoot. Ankle 3 views DX EXAM: XR LEFT ANKLE 3 VIEWS 11/12/2016 [facility] DATE: 11/12/2016 8:13 AM [employer] [facility] er INDICATION: Pain and swelling COMPARISON: Left ankle radiograph dated 11/09/19 17 2342 hours, 2122 hours. TECHNIQUE: AP, lateral and oblique radiographs of the left ankle FINDINGS: The overlying spli nt limits fine bony and soft tissue detail. There is been interval placement of external fixation device. Overall unchanged appearance of trimalleolar fracture. Soft tissue swelling about the left ankle is unchanged. IMPRESSION: Unchanged alignm ent of unstable trimalleolar fracture status post closed reduction and external fixation. Foot series DX EXAM: XR RIGHT ANKLE 3 VIEWS 11/10/2016 [facility] EXAM: XR RIGHT foot 3 VIEWS [facility] er DATE: 11/10/2016 1:34 PM [employer] INDICATION: Pain from a fall COMPARISON: None TECHNIQUE: AP, oblique and lateral radiographs of the ankle and foot FINDINGS: There is irregularity in the tibial sesamoid and apparent fracture line. No acute fracture or malalig nment is identified in the ankle. The ankle mortise is congruent. No soft tissue abnormality is identified. IMPRESSION: Cortical irregularity in the tibial sesamoid likely fractured, acute to subacute. Please correlate clinically and with further imaging if necessary. Ankle 3 views DX EXAM: XR RIGHT ANKLE 3 VIEWS 11/10/2016 [facility] EXAM: XR RIGHT foot 3 VIEWS Cent er DATE: 11/10/2016 1:34 PM [employer] INDICATION: Pain from a fall COMPARISON: None TECHNIQUE: AP, oblique and lateral radiographs of the ankle and foot FINDINGS: There is irregularity in the tibial sesamoid and apparent fracture line. No acute fracture or malalig nment is identified in the ankle. The ankle mortise is congruent. No soft tissue abnormality is identified. IMPRESSION: Cortical irregularity in the tibial sesamoid likely fractured, acute to subacute. Please correlate clinically and with further imaging if necessary. Ankle wo contrast EXAM: CT LEFT ANKLE WITHOUT CONTRAST 7 [facility] w/3D CT DATE: 11/10/2016 0956 hours [facility] INDICATION: Fracture COMPARISON: Radiographs of the left ankle dated 11/09/2016 TECHNIQUE: Volumetric CT acq uisition of the left ankle without contrast. Axial, sagittal and coronal reconstructions. IV contrast: None. DLP: 386 mGy-cm FINDINGS: Again seen is the transverse intra-articular fracture of the left medial malleolus with mild inferior displacement of approximately 3 mm. There is a tiny osseous fragment seen within the fracture line anteriorly. Comminuted, undisplaced frac ture of the posterior malleolus is again seen with predominantly coronal orientation of the fracture line. Fracture extends to the posterior tibial plafond with less than 2 mm gap and step-off at the articular surface. Nondisplaced spiral oblique fracture of the distal fibular diaphysis with fracture line extending to the level of the joint anteriorly . The syndesmosis, medial and lateral clear spaces are intact. Again seen is a traction pin traversing the calc aneus. Soft tissues: No soft tissue swelling. IMPRESSION: Trimalleolar fracture of the left ankle as above . Tibia fibula series EXAM: XR LEFT KNEE 3 VIEWS 11/09/2016 [facility] DX EXAM: XR LEFT TIBIA-FIBULA 2 VIEWS Center EXAM: XR LEFT ANKLE 3 VIEWS EXAM: XR LEFT FOOT 3 VIEWS DATE: 11/09/2016 11:42 PM [employer] INDICATION: Fracture COMPARISON: None TECHNIQUE: AP, lateral and o blique views of the left knee, AP and lateral views of the left tibia-fibula, AP, lateral and oblique radiographs of the left ankle, AP lateral and oblique views of the left foot. DISCUSSION: A radiopaque cast is applied which creates artifact and limits assessment of bone detail. Knee: No acute fracture or m alalignment is identified. No excessive knee joint fluid is identified. Tibia-fibula/ Ankle: The proximal and mid diaphyses of left tibia and fibula appear intact. Transverse intra-articular f racture is present at medial malleolus of left ankle. There is residual lateral displacement of the distal fragment by one half shaft width and slight anterior displacement b y one quarter shaft width. I n addition oblique comminuted fractures present at distal diaphysis of left fibula in a Rodriguez C-type pattern. There is posterior lateral displacement of the distal fibular shaft fragment by one cortical shaft width. Coronal oblique intra-articu lar fracture of posterior malleolus of left ankle is visualized. The posterior fragment is retracted proximally and posteriorly displaced. There is mild asymmetric wid ening of the superior medial aspects of the left ankle mortise. Foot: No acute fracture or m alalignment is identified. Bone detail is limited by the presence of radiopaque cast. Soft tissues: Generalized ci rcumferential soft tissue edema is present at the left ankle. IMPRESSION: 1. Transverse intra-articula r fracture of left medial malleolus is associated with anterior lateral displacement of the distal fragment by nearly one half shaft width. 2. Coronal oblique comminute d Rodriguez C-type fracture of distal left fibula accompanied by posterior lateral displacement of one cortical shaft width. 3. Coronal oblique intra-articular fract ure of posterior malleolus left ankle. 4. There is no additional ac upper sioux fracture identified within the left knee or left foot. The left foot is partially obscured by the overlying cast. 5. Generalized, circumferential soft tissue robert a of left ankle. Knee 3 views DX EXAM: XR LEFT KNEE 3 VIEWS 11/09/2016 [facility] EXAM: XR LEFT TIBIA-FIBULA 2 VIEWS Center EXAM: XR LEFT ANKLE 3 VIEWS EXAM: XR LEFT FOOT 3 VIEWS DATE: 11/09/2016 11:42 PM [employer] INDICATION: Fracture COMPARISON: None TECHNIQUE: AP, lateral and o blique views of the left knee, AP and lateral views of the left tibia-fibula, AP, lateral and oblique radiographs of the left ankle, AP lateral and oblique views of the left foot. DISCUSSION: A radiopaque cast is applied which creates artifact and limits assessment of bone detail. Knee: No acute fracture or m alalignment is identified. No excessive knee joint fluid is identified. Tibia-fibula/ Ankle: The proximal and mid diaphyses of left tibia and fibula appear intact. Transverse intra-articular f racture is present at medial malleolus of left ankle. There is residual lateral displacement of the distal fragment by one half shaft width and slight anterior displacement b y one quarter shaft width. I n addition oblique comminuted fractures present at distal diaphysis of left fibula in a Rodriguez C-type pattern. There is posterior lateral displacement of the distal fibular shaft fragment by one cortical shaft width. Coronal oblique intra-articu lar fracture of posterior malleolus of left ankle is visualized. The posterior fragment is retracted proximally and posteriorly displaced. There is mild asymmetric wid ening of the superior medial aspects of the left ankle mortise. Foot: No acute fracture or m alalignment is identified. Bone detail is limited by the presence of radiopaque cast. Soft tissues: Generalized ci rcumferential soft tissue edema is present at the left ankle. IMPRESSION: 1. Transverse intra-articula r fracture of left medial malleolus is associated with anterior lateral displacement of the distal fragment by nearly one half shaft width. 2. Coronal oblique comminute d Rodriguez C-type fracture of distal left fibula accompanied by posterior lateral displacement of one cortical shaft width. 3. Coronal oblique intra-articular fract ure of posterior malleolus left ankle. 4. There is no additional ac upper sioux fracture identified within the left knee or left foot. The left foot is partially obscured by the overlying cast. 5. Generalized, circumferential soft tissue robert a of left ankle. Foot series DX EXAM: XR LEFT KNEE 3 VIEWS 11/09/2016 [facility] EXAM: XR LEFT TIBIA-FIBULA 2 VIEWS Center EXAM: XR LEFT ANKLE 3 VIEWS EXAM: XR LEFT FOOT 3 VIEWS DATE: 11/09/2016 11:42 PM [employer] INDICATION: Fracture COMPARISON: None TECHNIQUE: AP, lateral and o blique views of the left knee, AP and lateral views of the left tibia-fibula, AP, lateral and oblique radiographs of the left ankle, AP lateral and oblique views of the left foot. DISCUSSION: A radiopaque cast is applied which creates artifact and limits assessment of bone detail. Knee: No acute fracture or m alalignment is identified. No excessive knee joint fluid is identified. Tibia-fibula/ Ankle: The proximal and mid diaphyses of left tibia and fibula appear intact. Transverse intra-articular f racture is present at medial malleolus of left ankle. There is residual lateral displacement of the distal fragment by one half shaft width and slight anterior displacement b y one quarter shaft width. I n addition oblique comminuted fractures present at distal diaphysis of left fibula in a Rodriguez C-type pattern. There is posterior lateral displacement of the distal fibular shaft fragment by one cortical shaft width. Coronal oblique intra-articu lar fracture of posterior malleolus of left ankle is visualized. The posterior fragment is retracted proximally and posteriorly displaced. There is mild asymmetric wid ening of the superior medial aspects of the left ankle mortise. Foot: No acute fracture or m alalignment is identified. Bone detail is limited by the presence of radiopaque cast. Soft tissues: Generalized ci rcumferential soft tissue edema is present at the left ankle. IMPRESSION: 1. Transverse intra-articula r fracture of left medial malleolus is associated with anterior lateral displacement of the distal fragment by nearly one half shaft width. 2. Coronal oblique comminute d Rodriguez C-type fracture of distal left fibula accompanied by posterior lateral displacement of one cortical shaft width. 3. Coronal oblique intra-articular fract ure of posterior malleolus left ankle. 4. There is no additional ac upper sioux fracture identified within the left knee or left foot. The left foot is partially obscured by the overlying cast. 5. Generalized, circumferential soft tissue robert a of left ankle. Ankle 3 views DX EXAM: XR LEFT KNEE 3 VIEWS 11/09/2016 [facility] EXAM: XR LEFT TIBIA-FIBULA 2 VIEWS Center EXAM: XR LEFT ANKLE 3 VIEWS EXAM: XR LEFT FOOT 3 VIEWS DATE: 11/09/2016 11:42 PM [employer] INDICATION: Fracture COMPARISON: None TECHNIQUE: AP, lateral and o blique views of the left knee, AP and lateral views of the left tibia-fibula, AP, lateral and oblique radiographs of the left ankle, AP lateral and oblique views of the left foot. DISCUSSION: A radiopaque cast is applied which creates artifact and limits assessment of bone detail. Knee: No acute fracture or m alalignment is identified. No excessive knee joint fluid is identified. Tibia-fibula/ Ankle: The proximal and mid diaphyses of left tibia and fibula appear intact. Transverse intra-articular f racture is present at medial malleolus of left ankle. There is residual lateral displacement of the distal fragment by one half shaft width and slight anterior displacement b y one quarter shaft width. I n addition oblique comminuted fractures present at distal diaphysis of left fibula in a Rodriguez C-type pattern. There is posterior lateral displacement of the distal fibular shaft fragment by one cortical shaft width. Coronal oblique intra-articu lar fracture of posterior malleolus of left ankle is visualized. The posterior fragment is retracted proximally and posteriorly displaced. There is mild asymmetric wid ening of the superior medial aspects of the left ankle mortise. Foot: No acute fracture or m alalignment is identified. Bone detail is limited by the presence of radiopaque cast. Soft tissues: Generalized ci rcumferential soft tissue edema is present at the left ankle. IMPRESSION: 1. Transverse intra-articula r fracture of left medial malleolus is associated with anterior lateral displacement of the distal fragment by nearly one half shaft width. 2. Coronal oblique comminute d Rodriguez C-type fracture of distal left fibula accompanied by posterior lateral displacement of one cortical shaft width. 3. Coronal oblique intra-articular fract ure of posterior malleolus left ankle. 4. There is no additional ac upper sioux fracture identified within the left knee or left foot. The left foot is partially obscured by the overlying cast. 5. Generalized, circumferential soft tissue robert a of left ankle. Spine cervical wo EXAM: CT CERVICAL SPINE WITHOUT CONTRAST 11/09 [facility] contrast CT (ER) DATE: 11/09/2016 9:39 PM [employer] Cent er INDICATION: trauma COMPARISON: None TECHNIQUE: Volumetric CT ac quisition of the cervical spine without contrast. Axial, sagittal and coronal reconstructions. IV contrast: None. DLP: 561 mGy-cm DISCUSSION: The spine is imaged from the skull base to the l evel of T1. There is straightening of th e normal cervical lordosis, which may be secondary to patient positioning or neck spasm. No acute fracture or malalignment is identified. Ossicle present inferior to the clivus. Multilevel degenerative roldan ges of the cervical spine are present, with marginal osteophytosis, disc space narrowing, uncovertebral joint hypertrophy, and mild facet hypertrophy, worse at the level of C5-C6. There is mild indentation up on the thecal sac at this level secondary to posterior osteophytes (spinal canal width of 7 mm) and mild bilateral neural foraminal narrowing. Small central disc protrusion present at C3-C4. No soft tissue abnormality is identified. IMPRESSION: No acute abnormality of the cervical spine. Multilevel degenerative roldan ges of the cervical spine, worse at C5-C6 with mild bilateral neural foraminal and severe central canal stenosis. Small central disc protrusion at C3-C4. Chest/Abdomen/Pelvis EXAM: CT CHEST WITH CONTRAST 11/09/2016 [facility] IV contrast CT EXAM: CT ABDOMEN AND PELVIS WITH CONTRAST Center DATE: 11/09/2016 9:40 PM [employer] INDICATION: trauma COMPARISON: None. TECHNIQUE: Volumetric CT acq uisition of the chest, abdomen and pelvis following intravenous administration of contrast. Delayed imaging was then performed through the abdomen and pelvis, using a radiati on reduction technique. Axial, coronal and sagit jett reformats. IV contrast: 125 mL of Visipaque 320 Oral contrast: None. DLP: 2700 mGy-cm FINDINGS: Lower Neck: Visible portions unremarkable. Thoracic Aorta and Mediastin um: No mediastinal hematoma or thoracic aortic injury. Lungs and Pleura: Lungs are clear. No contusions. No pleural fluid or pneumothorax. Hepatobiliary: Fatty change of the liver is present. Gallbladder: No injury. Spleen: Normal. Pancreas: Normal. Adrenals: Normal. Kidneys: Normal. Ureters and Bladder: No injury. Reproductive Organs: No injury. Gastrointestinal Tract: No injury. Peritoneum and Retroperitoneum: No fluid collect ions or free air. Abdominal/Pelvic Vasculature: No vascular injury. Minimal atherosclerotic disease of the abdominal aorta is present. Lymphadenopathy: None. Spine/Bones: No acute abnormality of the spine. Mild-moderate degenerative d isc disease and the lumbar spine most pronounced at L3-L4, L4-L5 noted. Soft Tissues: Unremarkable. IMPRESSION: No acute thoracic, abdominal, or pelvic injury. Fatty change of the liver. Brain wo contrast CT CT HEAD WITHOUT CONTRAST 11/09/2016 [facility] DATE: 06/20/2017 at 10:14 PM. COMPARISON: None. Center HISTORY: trauma. TECHNIQUE: Contiguous axial images of the brain were obtained without intravenous contrast administration. Sagittal and coronal reformatted images were also provided. DLP: 1032 mGy-cm. FINDINGS: There are no acute hemorrhag es or acute infarcts. The robles-white interfaces are well defined. There are no mass lesions or extra axial collect ions. There are no acute bony abnormalities. The graeme rium is intact. IMPRESSION: 1. No acute intracranial abnormality, normal CT scan of the brain. Resident preliminary report by Dr. Aruna Andre: No acute intracranial abnormality. Chest 1view DX EXAM: XR CHEST AP 1 VIEW 11/09/2016 [facility] DATE: 11/09/2016 9:28 PM [employer] Cent er INDICATION: trauma COMPARISON: None TECHNIQUE: Chest AP -- 1 View FINDINGS: Cardiac silhouette size is normal. Central pulmonary vascularity is within normal l imits. Mediastinal and hilar contours are normal. No airspace consolidation, pleural effusion, or pneumothorax present. Skeletal structures demonstrate no acute finding s. IMPRESSION: No acute cardiopulmonary abnormality is observed . Ankle 3 views DX EXAM: XR LEFT ANKLE 3 VIEWS 11/09/2016 [facility] DATE: 11/09/2016 2122 hours [employer] C enter INDICATION: trauma COMPARISON: None available TECHNIQUE: AP, lateral and oblique radiographs of the left ankle FINDINGS: Mildly displaced Rodriguez B dis jett fibular fracture extending to the level of the ankle present. Moderately displaced fracture of the medial mall eolus present. Mildly displaced posterior malleolar fracture pr esent. Ankle mortise is incongruent with lateral subluxation of the talus relative to the tibial plafond. Lateral clear space widening present. Soft tissue swelling about the ankle present. IMPRESSION: Trimalleolar ankle fracture, Rodriguez B stage IV in jury. Incongruence of the ankle mo rtise with widening of the lateral clear space indicating tibiotalar and tibiofibular syndesmosis instability. Pelvis AP DX EXAM: XR PELVIS AP 1 VIEW 11/09/2016 [facility] DATE: 11/09/2016 2122 hours [employer] C enter INDICATION: trauma COMPARISON: None TECHNIQUE: AP pelvis -- single view. FINDINGS: No fracture, periosteal reaction, or erosions id entified. Joint alignment is normal. Degenerative changes of the hips noted. Soft tissues are unremarkable. IMPRESSION: No fractures identified. Consultation Notes No Data Provided for This Section Discharge Summaries No Data Provided for This Section History and Physicals No Data Provided for This Section Vital Signs Vital Sign Value Date Comments Source Respitory Rate 20 12/20/2016 [facility] Heart Rate 84 12/20/2016 [facility] Temperature Oral (F) 98.2 F 12/20/2016 [facility] Systolic (mm Hg) 110 12/20/2016 [facility] Diastolic (mm Hg) 71 12/20/2016 [facility] Respitory Rate 18 12/20/2016 [facility] Systolic (mm Hg) 120 12/20/2016 [facility] [place] Diastolic (mm Hg) 64 12/20/2016 [facility] Heart Rate 64 12/20/2016 [facility] Temperature Oral (F) 98.0 F 12/20/2016 [facility] Respitory Rate 18 12/20/2016 [facility] Systolic (mm Hg) 95 12/20/2016 [facility] Diastolic (mm Hg) 54 12/20/2016 [facility] Temperature Oral (F) 97.2 F 12/20/2016 [facility] Heart Rate 68 12/20/2016 [facility] Height 172.72 cm 12/19/2016 [facility] BMI Calculated 28.95 12/19/2016 [facility] Weight 86.364 12/19/2016 [facility] Weight 86.364 12/18/2016 [facility] Height 172.72 cm 12/18/2016 [facility] BMI Calculated 28.95 12/18/2016 [facility] Temperature Oral (F) 97.0 F 11/19/2016 [facility] Heart Rate 78 11/19/2016 [facility] Respitory Rate 18 11/19/2016 [facility] Systolic (mm Hg) 110 11/19/2016 [facility] Diastolic (mm Hg) 80 11/19/2016 [facility] Height 177.8 cm 11/19/2016 [facility] BMI Calculated 25.88 11/19/2016 [facility] Weight 81.818 11/19/2016 [facility] Height 172.72 cm 11/12/2016 [facility] BMI Calculated 28.95 11/12/2016 [facility] Weight 86.364 11/12/2016 [facility] Heart Rate 74 11/12/2016 [facility] Respitory Rate 18 11/12/2016 [facility] Temperature Oral (F) 97.5 F 11/12/2016 [facility] Systolic (mm Hg) 119 11/12/2016 [facility] Diastolic (mm Hg) 77 11/12/2016 [facility] Respitory Rate 18 11/11/2016 [facility] Heart Rate 77 11/11/2016 [facility] Temperature Oral (F) 97.7 F [facility] Systolic (mm Hg) 135 11/11/2016 [facility] Diastolic (mm Hg) 79 11/11/2016 [facility] Temperature Oral (F) 97.5 F 11/11/2016 [facility] Systolic (mm Hg) 115 11/11/2016 [facility] Diastolic (mm Hg) 76 11/11/2016 [facility] Respitory Rate 18 11/11/2016 [facility] Heart Rate 70 11/11/2016 [facility] Heart Rate 65 11/11/2016 [facility] Temperature Oral (F) 97.8 F 11/11/2016 [facility] Respitory Rate 18 11/11/2016 [facility] Systolic (mm Hg) 104 11/11/2016 [facility] Diastolic (mm Hg) 65 11/11/2016 [facility] Weight 88.636 11/10/2016 [facility] BMI Calculated 29.71 11/10/2016 [facility] Height 172.72 cm 11/10/2016 [facility] Encounters Location Location Encounter Encounter Reason Attending ADM DC Stat us Source Details Type Number For Provider Date Date Visit [facility] [id number] [facility]10 [facility] [id number] Shahla Chano 11/12 11/12 [facility] [place] /2016 [facility] [id number] Arm[place] 11/19 11/19 [facility] Chris /2016 [facility] [id number] Luis Fernando 12/19 12/20 [facility] [place] Be /2016 [facility] Procedures Procedure Code Date Perfomer Comments Source Eye reconstruction [id number] 10/01/1993 [facility] Nose reconstruction [id number] 10/01/1991 [facility] Tonsillectomy and [id number] 10/01/1972 [facility] adenoidectomy [facility] Fracture care [id number] [facility] Assessment and Plan Assessment and Plan Date Source Extracted from:Title: APMS Progress Note* 12/20/2016 [facility] Author: Germaine Smith MD Date: 12/20/16 Patient: AC SONG Age: 51 years Sex: Male : 1965 Associated Diagnoses: None Author: Germaine Smith MD Basic Information Admit information: Today's information 12/20/2016. Reason for Consultation: Acute Complex pain History of Present Illness Patient is a 51 yp male who initially pr esented s/p fall on 11/10/16 and underwent external fixator application for a closed left ankle trimalleolar fracture dislocation who returns for ORIF of left bim alleolar fractur and syndesmosis. APMS/R egional team were consulted for perioperative pain management. He had left popliteal sciatic catheter and single shot saphenous performed for acute post operative pain control placed by regional team. Today patients states that his pain is well controlled with pump and breakthrough sufficiently lessend by PRN oral mediations. He does not currently have motor f unction and leg is numb. Discussion was had with patient about going home with On-Q as well as PRN oral medication as long as there was communication between patient and our team on an outpatient basis and patient was in agreement. Chief Complaint left trimalleolar ankle fracture s/p fall + LLE pain Health Status Allergies: Allergic Reactions (All) Severity Not Documented NKDA- No reactions were documented., Allergies (1) Active Reaction NKDA None Documented Current medications: (Selected) Inpatient Medications Ordered acetaminophen-hydrocodone 325 mg-10 mg o ral tablet: 1 tab, PO, Q4H, PRN: Pain Score 4-6 acetaminophen-hydrocodone 325 mg-5 mg or al tablet: 1 tab, PO, Q4H, PRN: Pain Score 4-6 enoxaparin: 40 mg, 0.4 mL, SUB-Q, [id number] gabapentin: 300 mg, 1 cap, PO, Q8Hnow nicotine: 14 mg, 1 patch, TOP, Daily ondansetron: 4 mg, 2 mL, IVP, Q6H, PRN: Nausea and Vomiting ropivacaine 0.2% 200ml CADD 200 mL: 6 ml /hr, NERVE BLOCK, Stop: 01/18/17 13:54:00 CDT tramadol: 100 mg, 2 tab, PO, Q6Hnow trazodone: 100 mg, 1 tab, PO, Bedtime Prescriptions Prescribed tramadol 50 mg oral tablet: 1-2 tab, PO, Q6H, 40 tab, 0 Refi ll(s) Problem list: Active Problems (3) Bipolar 1 disorder Fibula fracture Hep C w/ coma, chronic Review of Systems Constitutional: Decreased activity. Respiratory: Negative. Cardiovascular: Negative. Gastrointestinal: No nausea, No vomiting. Hematology/Lymphatics: Negative. Endocrine: Negative. Musculoskeletal: Joint pain, Muscle pain. Integumentary: Abrasions, Dryness. Neurologic: Alert and oriented X4. Psychiatric: hx of drug usage. Objective VS/Measurements Measurements from flowsheet : Measurements 12/19/2016 18:07 Heparin Dosing Weight (kg) 75.59 12/19/2016 18:06 Height 172.72 cm Height Collection Method Estimated Weight 86.364 kg Dosing Weight Difference Percent 0 % Dosing Weight Collection Method Estimated Body Surface Area 2.0356 m2 Body Mass Index 28.95 m2 12/19/2016 07:30 Dosing Weight Difference Percent In Error % Normal (In Error) , Vital Signs (last 24 hrs) Last Charted _ Temp Oral 98.2 DegF (DEC 20) Heart Rate Peripheral 84 bpm (DEC 20) Resp Rate 20 BRMIN (DEC 20) SBP 110 mmHg (DEC 20) DBP 71 mmHg (DEC 20) SpO2 96 % (DEC 20) Weight 86.364 kg (DEC 19) Height 172.72 cm (DEC 19) BMI 28.95 (DEC 19) General: No acute distress. Respiratory: Lungs are clear to auscultation, Breath sounds are equal. Cardiovascular: Normal rate, Regular rhythm. Gastrointestinal: Soft, Non-tender. Musculoskeletal decreased strength and ROM LLE. Integumentary: Warm, Dry. Neurologic: Alert, Oriented. Psychiatric: Cooperative. Subjective Problem: Pain Patient states Is getting better Plan APMS Plan Continue with APMS pain management: Pat ient to continue current pain regimen and catheter to be left in. He will go home with OnQ pump. He will need adjuvent medication for breakthough pain and the cu rrent plan is to send him home with Norc o. Per patient with previous orthopedic injury he was taking Norc-10/325. Triplicate to be given on day of discharge. Impression and Plan Education and Follow-up: Counseled : Regarding treatment, Regarding medications. Results Review General results Reviewed Results: Clinical Documents : A LL RESULT SECTIONS(Date Range: 12/20/2016 00:00 - 12/20/2016 12:07) Postoperative Information Surgery Done Procedure Location: LEFT, Ankle. Date of Service: 12/19/2016 Chief Complaint Continuing surgical site pain management Inpatient information Interaction with patient. Progress Note Date and Time of Visit: 12/20/2016 12:12 Post OP Day #: 1. Peripheral Nerve Block Nerve Block #: 1. Nerve Block Site: Popliteal Sciatic: Left, continuous. Infusion Medication: Ropivacaine: 0.2%. Pump Settings: Basal Rate ml/hr: 6 , One Hour Limit ml/hr: 6 . Current Status Assessment Visual Analog Scale for Pain (VAS 0-10): At Rest: 2, With Ac tivity: 3. Level of Sedation: Awake/Alert. Motor Block Residual Motor Weakness: Yes. Numbness Residual Sensory Numbness: Yes. Site Assessment Non-tender, no redness, minimal swelling or bruising, No exudates, drainage, or bleeding. Addendum by Drake Martines RN on 12/20/2016 16:33 Patient states he is homeless and hopes to stay at a local [employer], though that possibility is not certain. Initially patient stated he would be with his father but now patient states he cannot s zachary with his father. APMS will not disch arge patient with ONQ pump under these circumstances. PNB catheter infusion was held and plan was to allow motor block to resolve to allow assessment of pain and subsequent pain control with oral pain m eds. Patient stated he wanted catheter removed since he wanted to be discharged today. Patient stated understanding that we would not be able to assess and manage pain as an outpatient and that his pain will likely increase. PNB cathether was removed with an intact tip. Scripts for pain given per primary. APMS will f/u with patient over the phone for resolution of block. Addendum by Hemal López MD on 12/22/2016 07:19 TEACHING PHYSICIAN ADDENDUM: I saw and p ersonally examined this patient and discussed the plan of care with this resident. I have reviewed the note below and agree with the history, examination findings and the plan of care. Extracted from:Title: APMS Consult Note Author: Marti Tong MD Date: 12/19/16 Impression and Plan 51 yo male POD 0 s/p trimal ORIF Left popliteal sciatic catheter and sing le shot saphenous performed for acute post operative pain control Education and Follow-up: Counseled : Regarding treatment, Regarding medications. Extracted from:Title: APMS Progress Note* 11/11/2016 [facility] Author: Анна Benítez MD Date: 11/11/16 Patient: AC SONG Age: 51 years Sex: Male : 1965 Associated Diagnoses: None Author: Анна Benítez MD History of Present Illness The patient presents with Pain . The location is L ankle. The onset was s/p fall from 2nd story window. There were exacerbating factors including activity. There were relieving factors incl uding medication and rest. sharp. The severity is moderate. The symptom occurs constantly. The course is improving. The effect on daily activities is change in activity level. Review / Management Results review: Labs (Last four charted values) WBC H 15.6 (NOV 09) Hgb 15.9 (NOV 09) Hct 45.4 (NOV 09) Plt 189 (NOV 09) Na 137 (NOV 09) K L 3.2 (NOV 09) CO2 24 (NOV 09) Cl 98 (NOV 09) Cr 1.15 (NOV 09) BUN 14 (NOV 09) Glucose Random 80 (NOV 09) Ca 9.0 (NOV 09) PT 14.6 (NOV 10) INR 1.12 (NOV 10) . Health Status Allergies: Allergies (1) Active Reaction NKDA None Documented Current medications: Home Medications (9) Active enoxaparin 30 mg/0.3 mL subcutaneous solution 30 mg = 0.3 mL , SUB-Q, [id number] FLUoxetine 20 mg oral capsule 60 mg = 3 cap, PO, Daily gabapentin 300 mg oral capsule 300 mg = 1 cap, PO, Q8H-05 Latuda 20 mg oral tablet 20 mg = 1 tab, PO, Daily methocarbamol 500 mg oral tablet 1,000 mg = 2 tab, PRN, PO, Q8H-05 Garfield 10/325 oral tablet 1 tab, PRN, PO, Q4H senna 8.6 mg oral tablet 17.2 mg = 2 tab, PO, Bedtime trazodone 150 mg oral tablet 150 mg = 1 tab, PO, Bedtime Ultram 50 mg oral tablet 100 mg = 2 tab, PRN, PO, Q6H Review of Systems Constitutional: Negative. Respiratory: Negative. Cardiovascular: Negative. Gastrointestinal: Negative. Hematology/Lymphatics Endocrine Musculoskeletal: Trauma, RLE pain. Integumentary: Negative. Neurologic: Alert and oriented X4. Psychiatric: Negative. All other systems are negative Objective VS/Measurements Vital Signs (last 24 hrs) Last Charted _ Temp Oral 97.7 DegF (NOV 11 12:59) Heart Rate Peripheral 77 bpm (NOV 11:59) Resp Rate 18 BRMIN (NOV 11:59) SBP 135 mmHg (NOV 11 12:59) DBP 79 mmHg (NOV 11:59) SpO2 96 % (NOV 11:59) General: Alert and oriented, No acute distress. Eye: Extraocular movements are intact. HENT: Normocephalic. Respiratory: Respirations are non-labored. Neurologic: Alert, Oriented, Unable to move R. toes . Psychiatric: Cooperative, Appropriate mood and affect. Subjective Problem: Pain Patient states Is getting better Impression and Plan Education and Follow-up: Counseled : Regarding treatment, Regarding medications. Postoperative Information Surgery Done Procedure Location: LEFT, Ankle. Date of Service: 11/10/2016 Chief Complaint Continuing surgical site pain management Inpatient information Interaction with patient. Observation. Progress Note Date and Time of Visit: 11/11/2016 13:45 Post OP Day #: 1. Peripheral Nerve Block Nerve Block #: 1. Nerve Block Site: Saphenous: Left, continuous. Peripheral Nerve Block Nerve Block #: 2. Nerve Block Site: Popliteal: Left, continuous. Current Status Assessment Visual Analog Scale for Pain (VAS 0-10): At Rest: 6, With Ac tivity: 6. Level of Sedation: Awake/Alert. Activity: Bed Rest. Adjuvant Medication: PO: norco 10/325 q4h prn acetaminophen 500mg q4h prn gabapentin 300mg q8h robaxin 1g q8h, IV: ketorolac 15mg q6h. Side Effects None. Plan: s/p fall from 2nd story window and ex-fix L ankle. S/p L popliteal sciatic and saphenous single shot with dex on 11/10. Patient endorses continued motor block and numbness but is going home today . Patient has been informed that we stephen wilson call him tomorrow to check the status of his motor and sensory function. Addendum by Conchita Quiros MD on 11/12/2016 10:08 TEACHING ADDENDUM: I saw and personally examined this patie nt and discussed the plan of care with the resident. I have reviewed the note below and agree with the history, examination findings and the plan of care. Extracted from:Title: APMS Consult Note Author: Kit Villavicencio MD Date: 11/10/16 Patient: AC SONG Age: 51 years Sex: Male : 1965 Associated Diagnoses: None Author: Kit Villavicencio MD Basic Information Referral source Reason for consultation: Complex Acute Pain Chief Complaint 11/10/2016 04:10 L ankle fx 11/09/2016 21:22 fall fr a 2 nd floor window landed on L leg -LOC, deformed L lower extremity (Modified) Ankle pain- left History of Present Illness 51yo male with history Hep C, drug abuse , bipolar, chronic back pain presents with left ankle fx after fall. APMS consulted for pain management. Histories Past Medical History: Resolved Hep C w/ coma, chronic ([id number]): Resolved. Chronic Back pain (099057673): Resolved. Bipolar 1 disorder (3600127363): Resolved. Depression (4531371200): Resolved. Family History: High blood pressure Grandparent Type 2 diabetes mellitus Grandparent Procedure history: Eye reconstruction ([id number]) in 1993 at 29 Years. Nose reconstruction (1167989329) in 1991 at 27 Years. Tonsillectomy and adenoidectomy (774153780) in 1972 at 8 Yea rs. Social History Social and Psychosocial Habits Alcohol 11/10/2016 Type: Beer Substance Abuse 11/10/2016 Use: Past Type: Marijuana Tobacco 11/10/2016 Use: Current some day smoker Type: Cigarettes Tobacco use per day: 1 Number of years: 30 Previous treatment: Counseling, Medications Ready to change: Yes Concerns about tobacco use in household: No Exposure to Tobacco Smoke None Cigarette Smoking Last 365 Days Unable to obtain Reg Smoking Cessation Counseling Yes Comment: Pt ready to change. - 11/10/2016 04:19 - Zaida Flowers RN . Health Status Allergies: Allergic Reactions (All) Severity Not Documented NKDA- No reactions were documented., Allergies (1) Active Reaction NKDA None Documented Current medications: (Selected) Inpatient Medications Ordered Isolyte S (PH 7.4) 1000 mL 1,000 mL: 150 ml/hr, IV, Stop: 3:15:00 CDT Latuda: 20 mg, 1 tab, PO, Daily Lovenox: 30 mg, 0.3 mL, SUB-Q, [id number] Garfield 10/325 oral tablet: 1 tab, PO, Q4H, PRN: Pain Score 6- 10 PROzac: 40 mg, 2 cap, PO, Daily Robaxin: 1,000 mg, 2 tab, PO, Q8H-05 Saline Flush 0.9%: 10 mL, IVP, PRN, PRN: Line Flush acetaminophen: 500 mg, 1 tab, PO, Q4H, PRN: Pain 1-3/Temp > 100.4 F ceFAZolin (SCIP) + sodium chloride 0.9% INJ 100 mL: 2 gm, 20 0 ml/hr, IVPB, Q8H gabapentin 300 mg oral capsule: 300 mg, 1 cap, PO, Q8H-05 ketOROLAC 15 mg/mL injectable solution: 15 mg, 1 mL, IV, Q6H ondansetron: 4 mg, 2 mL, IVP, Q6H, PRN: Nausea and Vomiting senna: 17.2 mg, 2 tab, PO, Bedtime trazodone: 150 mg, 3 tab, PO, Bedtime Documented Medications Suspended Latuda 20 mg oral tablet: 20 mg, 1 tab, PO, Daily, 0 Refill( s) PROzac 40 mg oral capsule: 40 mg, 1 cap, PO, Daily, 30 cap, 0 Refill(s) trazodone 150 mg oral tablet: 150 mg, 1 tab, PO, Bedtime, 30 tab, 0 Refill(s), Medications (14) Active Scheduled: (9) ceFAZolin 1 gm VL INJ + sodium chloride 0.9% INJ 100 mL 2 g m, IVPB, Q8H enoxaparin 30 mg/0.3 ml INJ 30 mg 0.3 mL, SUB-Q, [id number] FLUoxetine 20 mg CAP 40 mg 2 cap, PO, Daily gabapentin 300 mg CAP 300 mg 1 cap, PO, Q8H-05 ketOROLAC 15 mg/1 ml INJ VL 15 mg 1 mL, IV, Q6H lurasidone 20 mg TAB 20 mg 1 tab, PO, Daily methocarbamol 500 mg TAB 1,000 mg 2 tab, PO, Q8H-05 senna 8.6 mg TAB 17.2 mg 2 tab, PO, Bedtime trazodone 50 mg TAB 150 mg 3 tab, PO, Bedtime Continuous: (1) Isolyte S (PH 7.4) 1000 mL 1,000 mL 1,000 mL, IV, 150 ml/hr PRN: (4) acetaminophen 500 mg TAB 500 mg 1 tab, PO, Q4H acetaminophen-hydrocodone 325 mg-10 mg TAB 1 tab, PO, Q4H ondansetron 4 mg/2ml INJ VL 4 mg 2 mL, IVP, Q6H sodium chloride 0.9% 10 ml flush syr BD 10 mL, IVP, PRN Problem list: No qualifying data available Review of Systems Constitutional: Negative except as documented in history of present illness. Cardiovascular: Negative except as documented in history of present illness. Ear/Nose/Mouth/Throat: Negative except as documented in history of present illness. Respiratory: Negative except as documented in history of pr esent illness. Gastrointestinal: Negative except as documented in hi story of present illness. Musculoskeletal: Joint pain, Muscle pain, Decreased range o f motion, Trauma. Neurologic: Alert and oriented X4. Psychiatric: Bipolar. Endocrine: Negative except as documented in history of pres ent illness. Hematology/Lymphatics: Negative except as documented in history of present illness. Physical Examination VS/Measurements Measurements from flowsheet : Measurements 11/10/2016 04:10 Heparin Dosing Weight (kg) 76.49 11/10/2016 04:09 Height 172.72 cm Height Collection Method Stated Weight 88.636 kg Dosing Weight Collection Method Estimated Body Surface Area 2.0622 m2 Body Mass Index 29.71 m2 , Vital Signs (last 24 hrs) Last Charted _ Temp Oral 98.0 DegF (NOV 10 04:42) Heart Rate Apical 82 bpm (NOV 10 09:15) Resp Rate 19 BRMIN (NOV 10 09:15) SBP 104 mmHg (NOV 10 09:15) DBP 60 mmHg (NOV 10:15) SpO2 98 % (NOV 10:15) Weight 88.636 kg (NOV 10 04:09) Height 172.72 cm (NOV 10 04:09) BMI 29.71 (NOV 10 04:09) General: Alert and oriented, Moderate distress. HENT: Normocephalic. Neck: Supple. Respiratory: Respirations are non-labored, Breath sounds ar e equal. Cardiovascular: Normal rate, Regular rhythm. Gastrointestinal: Soft. Musculoskeletal Surgical dressing LLE with ex-fix. Pt ab le to lift toes and endorses sensation to toes. Integumentary: Warm, Dry, [place]. Neurologic: Alert, Oriented. Cognition and Speech: Oriented, Speech clear and coherent. Psychiatric: Cooperative, Appropriate mood and affect. Review / Management Results review: Labs (Last four charted values) WBC H 15.6 (NOV 09) Hgb 15.9 (NOV 09) Hct 45.4 (NOV 09) Plt 189 (NOV 09) Na 137 (NOV 09) K L 3.2 (NOV 09) CO2 24 (NOV 09) Cl 98 (NOV 09) Cr 1.15 (NOV 09) BUN 14 (NOV 09) Glucose Random 80 (NOV 09) Ca 9.0 (NOV 09) PT 14.6 (NOV 10) INR 1.12 (NOV 10) . Chest x-ray results ECG interpretation Impression and Plan Diagnosis Orders Education and Follow-up: Counseled : Regarding treatment, Regarding medications. 51yo male with history Hep C, drug abuse , bipolar, chronic back pain presents with left ankle fx after fall. APMS consulted for pain management. Plan 1. SS left pop/sciatic and saphenous blocks 2. Continue -gabapentin, ketorolac, norco, acetaminophen per primary APMS will follow. Please call [phone] with questions. Addendum by Hemal López MD on 11/10/2016 10:38 TEACHING PHYSICIAN ADDENDUM: I saw and p ersonally examined this patient and discussed the plan of care with this resident. I have reviewed the note below and agree with the history, examination findings and the plan of care. Extracted from:Title: History and Physical Author: Danielle José DO Date: 11/10/16 Assessment/Plan 1.Closed displaced trimalleolar fracture of left ankle OR in AM for ex-fix. nonweightbearing 2.preoperative risk assessment ECG notes NSR with no ST changes and TWI in leads V1-V2. able to complete METS > 4; patient low risk 3.Acute pain due to trauma start ketorolac 15 mg IV Q6, robaxin 1000 mg Q8 and gabapentin 300 mg Q8. no tramadol secondary to SSRI. norco prn 4.Acute alcohol intoxication start IVF 5.Depression continue fluoxetine, latuda and trazodone 6.Hepatitis C f/u as outpatient - plan to start Harvoni PPX:lovenox SC DISPO:pending OR HOSPITALIST IS PRIMARY; please [email or web address] questions Plan of Care No Data Provided for This Section Social History Social History Date Source Social History TypeResponse 12/18/2016 [facility] Substance Abuse Use: Past. Type: Marijuana. Alcohol Current, Type Beer. Frequency: Daily. Smoking Status Current some day smoker; Type: Cigarette s; Tobacco use per day: 1; Number of years: 30; Previous treatment: Counseling; Previous treatment: Medications; Ready to change: Yes; Concerns about tobacco use in household: No; Exposure to Tobacco Sm woody None; Cigarette Smoking Last 365 Days Yes; Reg Smoking Cessation Counseling Yes1 1Pt ready to change. Family History No Data Provided for This Section Advance Directives No Data Provided for This Section Functional Status No Data Provided for This Section
--- OUTSIDE RECORDS SUMMARY | 2020-04-10 16:11 | XMS REPORT | Continuity of Care Document ---
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 (test code = Glucose Level) 96 mg/dL 70-115 Calcium Level (test code = Calcium Level) 9.4 mg/dL 8.3-10.5 Alk Phos (test code = Alk Phos) 57 U/L 40-129 Bilirubin Total (test code = Bilirubin Total) 0.4 mg/dL 0.1-0.9 Albumin Level (test code = Albumin Level) 4.4 g/dL 3.5-5.2 Protein Total (test code = Protein Total) 7.6 g/dL 6.4-8.3 ALT (test code = ALT) 44 U/L 1-41 H AST (test code = AST) 34 U/L 1-40 Globulin (test code = Globulin) 3.2 g/dL 2.9-3.1 H A/G Ratio (test code = A/G Ratio) 1.4 ratio N Comprehensive Metabolic [id number] 08:29:05 Test Item Value Reference Range Interpretation Comments Sodium Level (test 140.0 mmol/L 135.0-145.0 code = Sodium Level) Potassium Level 4.1 mmol/L 3.5-5.1 (test code = Potassium Level) Chloride Level (test 100 mmol/L 98-105 code = Chloride Level) CO2 (test code = 27 mmol/L 22-29 CO2) Anion Gap (test code 13 mmol/L 7-16 = Anion Gap) BUN (test code = 18.30 mg/dL 6.00-20.00 BUN) Creatinine Level 0.80 mg/dL 0.70-1.20 (test code = Creatinine Level) BUN/Creat Ratio 23 N (test code = BUN/Creat Ratio) Glucose Level (test 96 mg/dL 70-115 code = Glucose Level) Calcium Level (test 9.4 mg/dL 8.3-10.5 code = Calcium Level) Alk Phos (test code 57 U/L 40-129 = Alk Phos) Bilirubin Total 0.4 mg/dL 0.1-0.9 (test code = Bilirubin Total) Albumin Level (test 4.4 g/dL 3.5-5.2 code = Albumin Level) Protein Total (test 7.6 g/dL 6.4-8.3 code = Protein Total) ALT (test code = 44 U/L 1-41 H ALT) AST (test code = 34 U/L 1-40 AST) Globulin (test code 3.2 g/dL 2.9-3.1 H = Globulin) A/G Ratio (test code 1.4 ratio N = A/G Ratio) eGFR AA (test code = >60 N eGFR (e stimated eGFR AA) mL/min/1.73 m2 Glomerular Filtration Rate ) is an estimated va lue, calculated from the patient's serum creatinine usin g the MDRD equation. It is NOT the patient 's actual GFR. The eGFR provides a more clinically usef ul measure of kidn ey disease than se rum creatinine alone.This calculation mary es sex and race in to account, if the information is provided. If th e race is not provided, and t he patient is -Shanon n, multiply by 1.2 12. If sex is not provided, and t he patient is fema le, multiply by 0.7 42. Results for pat ients <18 years of ag e have not been validated by th e MDRD study and should be interpreted wit h caution. eGFR R esult Interpretation: eGFR > or = 60 is in the Normal RangeeGF R < 60 may mean kid jignesh diseaseeGFR < 1 5 may mean kidney failure Rang es recommended by the National Kidney Foundation, http://nkdep.ni h.gov Comprehensive Metabolic [id number] 08:29:05 Test Item Value Reference Range Interpretation Comments Sodium Level (test 140.0 mmol/L 135.0-145.0 code = Sodium Level) Potassium Level 4.1 mmol/L 3.5-5.1 (test code = Potassium Level) Chloride Level (test 100 mmol/L 98-105 code = Chloride Level) CO2 (test code = 27 mmol/L 22-29 CO2) Anion Gap (test code 13 mmol/L 7-16 = Anion Gap) BUN (test code = 18.30 mg/dL 6.00-20.00 BUN) Creatinine Level 0.80 mg/dL 0.70-1.20 (test code = Creatinine Level) BUN/Creat Ratio 23 N (test code = BUN/Creat Ratio) Glucose Level (test 96 mg/dL 70-115 code = Glucose Level) Calcium Level (test 9.4 mg/dL 8.3-10.5 code = Calcium Level) Alk Phos (test code 57 U/L 40-129 = Alk Phos) Bilirubin Total 0.4 mg/dL 0.1-0.9 (test code = Bilirubin Total) Albumin Level (test 4.4 g/dL 3.5-5.2 code = Albumin Level) Protein Total (test 7.6 g/dL 6.4-8.3 code = Protein Total) ALT (test code = 44 U/L 1-41 H ALT) AST (test code = 34 U/L 1-40 AST) Globulin (test code 3.2 g/dL 2.9-3.1 H = Globulin) A/G Ratio (test code 1.4 ratio N = A/G Ratio) eGFR AA (test code = >60 N eGFR (e stimated eGFR AA) mL/min/1.73 m2 Glomerular Filtration Rate ) is an estimated va lue, calculated from the patient's serum creatinine usin g the MDRD equation. It is NOT the patient 's actual GFR. The eGFR provides a more clinically usef ul measure of kidn ey disease than se rum creatinine alone.This calculation mary es sex and race in to account, if the information is provided. If th e race is not provided, and t he patient is -Shanon n, multiply by 1.2 12. If sex is not provided, and t he patient is fema le, multiply by 0.7 42. Results for pat ients <18 years of ag e have not been validated by th e MDRD study and should be interpreted wit h caution. eGFR R esult Interpretation: eGFR > or = 60 is in the Normal RangeeGF R < 60 may mean kid jignesh diseaseeGFR < 1 5 may mean kidney failure Rang es recommended by the National Kidney Foundation, http://nkdep.ni h.gov eGFR Non-AA (test >60.00 N eGFR (apolinar mated code = eGFR Non-AA) mL/min/1.73 m2 Glomer ular Filtration Rate ) is an estimated va lue, calculated from the patient's serum creatinine usin g the MDRD equation. It is NOT the patient 's actual GFR. The eGFR provides a more clinically usef ul measure of kidn ey disease than se rum creatinine alone.This calculation mary es sex and race in to account, if the information is provided. If th e race is not provided, and t he patient is -Shanon n, multiply by 1.2 12. If sex is not provided, and t he patient is fema le, multiply by 0.7 42. Results for pat ients <18 years of ag e have not been validated by e MDRD study and should be interpreted wit h caution. eGFR R esult Interpretation: eGFR > or = 60 is in the Normal RangeeGF R < 60 may mean kid jignesh diseaseeGFR < 1 5 may mean kidney failure Rang es recommended by the National Kidney Foundation, http://nkdep.ni h.gov Complete Blood Count without [id number] 08:07:00 Test Item Value Reference Range Interpretation Comments WBC (test code = WBC) 14.6 x10 4.4-10.5 H RBC (test code = RBC) 5.15 x10 [...] MPV (test code = MPV) 8.5 fL N nRBC (test code = nRBC) 0 N NRBC Abs (test code = NRBC Abs) 0.00 x10 N IPF (test code = IPF) 0 % N RPR Mgvwcfchpcr7668-83-51 11:58:31 Test Item Value Reference Range Interpretation Comments RPR Qual (test code = RPR Qual) Non-Reactive Non-Reactive Reactive Control (test code = Reactive Reactive Control) Weak Reactive Control (test Weak Reactive code = Weak Reactive Control) Non-Reactive Control (test code Non-Reactive = Non-Reactive Control) Lot # (test code = Lot #) [id number] N Expiration Dt (test code = 09-30-2020 N Expiration Dt) Thyroid Stimulating Sbqmsrz0763-23-48 07:31:59 Test Item Value Reference Range Interpretation Comments TSH (test code = TSH) 1.000 mIU/mL 0.270-4.200 Lipid Hwsuh1437-25-31 07:11:41 Test Item Value Reference Range Interpretation Comments Cholesterol Total 176 mg/dL 0-200 RISK OF HE ART (test code = DISEASEPublishe d by Cholesterol Total) [employer] Maria G lyte Optimal Borderl ine Increased RiskC HOL <200 200-239 >2 40TRIG <150 150-199 >2 00HDL Male >60 <40H DL Female >60 <5 0LDL <100 130-159 >1 60LDL Near optimal is 100-129 Triglycerides (test 68 mg/dL 9-200 code = Triglycerides) HDL (test code = HDL) 43 mg/dL 40-60 LDL (test code = LDL) 119 mg/dL 0-130 The eq uation being used in this calcula tion is LDL = (Chol - H DL) - (Trig / 5) VLDL (test code = 14 mg/dL 5-40 The equati on being used VLDL) in this calcula tion is VLDL = Trig / 5 Chol/HDL (test code = 4.1 ratio 0.0-5.0 Chol/HDL) LDL/HDL Ratio (test 3 N The equa tion being used code = LDL/HDL Ratio) in thi s calculation is LDL/HDL Ratio=L DL Calc/HDL Chol DRUG [id number] 13:01:00See Note (12/19/16 8:01 AM)[facility] LAMLDJ0819-02-98 13:01:00Negative *NA*(12/19/16 8:01 AM)[facility] [id number] 13:01:00Negative *NA*(12/19/16 8:01 AM)[facility] ILMAKC7085-00-81 13:01:00Negative *NA*(12/19/16 8:01 AM)[facility] TGRVTC2917-99-99 13:01:00Positive *ABN*(12/19/16 8:01 AM)[facility] OEMIDJ7947-90-90 13:01:00Negative *NA*(12/19/16 8:01 AM)[facility] XYXFCX7767-43-87 13:01:00Negative *NA*(12/19/16 8:01 AM)[facility] SKCDJI8874-45-22 13:01:00Negative *NA*(12/19/16 8:01 AM)[facility] OMWRJ4773-71-28 03:24:000.90[facility]ann[facility] BWAHC4102-77-48 03:24:90589 [facility] JRMUG4535-25-00 03:24:0018.1[facility]ann[facility] PANEL 2016-11-19 03:24:0022[facility]ann[facility] XKCHL5914-85-92 03:24:0097[facility]ann[facility] QZIHF7166-41-28 03:24:008.7[facility]ann[facility] SZVBF1802-13-83 03:24:004.1[facility]ann[facility] LUMBX7173-70-99 03:24:71802Tmetxqmc HermannCHEM KTADQ9027-58-54 03:24:0092[facility]annCHE[facility] OLNTS2127-29-54 03:24:0012 [facility] FINSJNO4083-29-84 02:24:00Negative (11/18/16 8:24 PM) [facility] FDDQIM9547-14-49 02:24:00Positive *ABN*(11/18/16 8:24 PM) [facility] OJHYZU5952-28-53 02:24:00Negative *NA*(11/18/16 8:24 PM) [facility] LPEJHG3332-76-44 02:24:00Negative *NA*(11/18/16 8:24 PM) [facility] OVAGPY0392-77-15 02:24:00Positive *ABN*(11/18/16 8:24 PM) [facility] SLTWZU1856-63-12 02:24:00Negative *NA*(11/18/16 8:24 PM) [facility] VIZLAI8176-07-35 02:24:00Negative *NA*(11/18/16 8:24 PM) [facility] XWMIIB8806-83-26 02:24:00Negative *NA*(11/18/16 8:24 PM) [facility] ODALVO2951-69-69 02:24:00See Note (11/18/16 8:24 PM)[facility] FSYUBR9635-16-18 02:24:00Negative *NA*(11/18/16 8:24 PM)[facility] DHOIPE4187-32-92 02:24:00Negative *NA*(11/18/16 8:24 PM)[facility] UhwrbofDQQRAKUTDT5052-69-42 02:24:000.7[facility] EsfvzqdUBSCUYNEKC2672-97-23 02:24:000.1[facility] DwalplxJXGAMPUDEG4544-58-85 02:24:000.1[facility] Jaden PHVBEFQIWI4385-04-19 02:24:0072.1[facility] NrjboekDANOBDEJGH1814-49-93 02:24:00 20.2[facility] XboelaeXGSICJLYZZ5355-13-77 02:24:006.1[facility]annHEMATOLOGY 2016-11-19 02:24:008.2[facility] YyisvdlOBIKRHNXZV2102-77-65 02:24:000.9[facility] TuegtjeMBOJGVJPGU9577-54-67 02:24:000.7[facility] ZyeloggXCIYRLBVOS9390-66-31 02:24:002.3[facility] GtdrjyoHTPQQZHJNI1842-71-47 02:24:00Normal (11/18/16 8:24 PM) [facility] BloizpwJVSKNQGPVC2183-11-56 02:24:00Normal (11/18/16 8:24 PM)[facility] FxtatazXTMEWSIEXU3958-75-90 02:24:0015.2[facility] RxwwnapTNQSCYJHEW7159-22-68 02:24:0011.3[facility] TvpblflLVYQMERVZW2469-09-09 02:24:0043.2[facility] [place] TPVOHUKYVC8961-89-70 02:24:0035.1[facility] QijffzkXQQSSHUTIY2395-75-07 02:24:00 4.57[facility] ScxmtiiIHIDFERSDD8927-89-00 02:24:0094.6[facility]annHEMATOLOGY 2016-11-19 02:24:0012.5[facility] FmcxkyjUIHYXINZCL2573-92-44 02:24:00 Test Item Value Reference Range Interpretation Comments MCH (test code = MCH) 33.2 pg 27.0-31.0 [facility] ZtezzwcJCASCPDIJD2230-71-42 02:24:006.6[facility]ann[facility]OLOGY 2016-11-19 02:24:38549Obxfqyhd UziboghCKAHPZCQZU3060-48-15 02:24:00 Test Item Value Reference Range Interpretation Comments PT (test code = PT) 13.1 s 12.0-14.7 [facility] WcwurfmPVKOPEUHSQ3437-15-89 02:24:000.97[facility] 2016-11-19 02:24:00 Test Item Value Reference Range Interpretation Comments PTT (test code = PTT) 27.1 s 22.9-35.8 [facility] XBHCG0678-26-63 08:16:001.5[facility]annCHEM PANEL 2016-11-11 03:15:002.9[facility]annCHE[facility] ZXVVX4830-73-95 15:09:003.9[facility] VpcxfvzFNRKJXESWK4405-34-60 08:26:001.12[facility] ZlnhqgoRXSFORWFIX7507-63-37 08:26:00 Test Item Value Reference Range Interpretation Comments PT (test code = PT) 14.6 s 12.0-14.7 [facility] TREOL7800-62-38 07:15:02None Seen (11/10/16 1:15 AM) [facility] YXNFM7062-27-57 07:15:02None Seen (11/10/16 1:15 AM) [facility] SRLSS6474-80-49 07:15:02None Seen (11/10/16 1:15 AM) [facility] DKDGG3455-96-17 07:15:02Negative (11/10/16 1:15 AM) [facility] EIQZL5475-51-56 07:15:02Negative (11/10/16 1:15 AM) [facility] XPLCV8231-04-79 07:15:02Yellow *NA*(11/10/16 1:15 AM) [facility] FJDBT3816-92-89 07:15:02 Test Item Value Reference Range Interpretation Comments UA pH (test code = UA pH) 5.5 1 5.0-8.0 [facility] MNDUF9626-04-49 07:15:02Negative (11/10/16 1:15 AM) [facility] VRKOX0112-17-03 07:15:02Negative (11/10/16 1:15 AM) [facility] NIDTZ2286-88-70 07:15:02Negative *NA*(11/10/16 1:15 AM) [facility] DQUNS0354-93-87 07:15:02Negative (11/10/16 1:15 AM) [facility] LHBVW1562-82-83 07:15:020.2[facility] RGLAW2680-78-98 07:15:02Clear (11/10/16 1:15 AM)[facility] STOOL 2016-11-10 07:15:02 Test Item Value Reference Range Interpretation Comments UA Spec Grav (test code = UA Spec 1.047 1 Grav) [facility] [id number] 07:15:00See Note (11/10/16 1:15 AM)[facility] KGYGRV5535-67-19 07:15:00Positive *ABN*(11/10/16 1:15 AM)[facility] ZGVNWV9281-26-61 07:15:00Negative *NA*(11/10/16 1:15 AM)[facility] DILGCA9934-15-11 07:15:00Negative *NA*(11/10/16 1:15 AM)[facility] AVISKV3639-91-34 07:15:00Positive *ABN*(11/10/16 1:15 AM)[facility] GRTLTC0119-73-74 07:15:00Negative *NA*(11/10/16 1:15 AM)[facility] LCFRKS5901-83-34 07:15:00Negative *NA*(11/10/16 1:15 AM)[facility] MJYCEZ3142-61-00 07:15:00Negative *NA*(11/10/16 1:15 AM)[facility] NjjguqiBRDABXRTSCUR8685-73-16 03:40:0018.2[facility] OndpesyPYMQJVHSKUPO9223-46-67 03:40:0086[facility] VvykvsgJVXUBIQDOVZS4904-25-09 03:40:86358Aqtdrmoi [place] FHIIXUKMNCUC7597-17-95 03:40:0024[facility] NhmtrnyOXLBXDOUWZAI0956-96-93 03:40:00 98[facility] NkkqrcnTBNYUDVHJTPA6673-56-38 03:40:003.2[facility] HermannELECTROLYTES 2016-11-10 03:40:0014[facility] IlibaibSPNEZJLEZNUS1180-64-63 03:40:0080[facility] FmhdmbnPWQZUESUGDBV2149-33-09 03:40:001.15[facility] EunsorkTBFFJQICWODQ4822-23-37 03:40:009.0[facility] OlsagutDLVTIIMNWR5998-77-02 03:40:0010.5[facility] [place] GMWUMETJGM7359-18-20 03:40:000.5[facility] IgxpszyZLLPYFOTJD2244-49-25 03:40:001.1 [facility] QimfethDFBMLGGZQP1379-42-28 03:40:004.0[facility]annHEMATOLOGY 2016-11-10 03:40:000.8[facility] MwgqkiyGOECYKGPHA1646-68-89 03:40:000.1[facility] DpvlzeqHMQVCUEFEL7693-30-00 03:40:000.2[facility] FjnivucZSYNMZEGJE8387-08-56 03:40:0067.1[facility] ZwkizdiZMHGIXBPVZ9240-72-34 03:40:0026.0[facility] [place] LZAQHHMADV5563-96-36 03:40:005.3[facility] QnwvilkZZARZWYDVM4294-16-31 03:40:00 12.8[facility] JmnfnzlQDHFRBOUYZ1595-14-70 03:40:65125Hielbypw HermannHEMATOLOGY 2016-11-10 03:40:006.1[facility] DtxwyfvLCWIZTTACT6595-51-18 03:40:0015.9[facility] JjstozcIPMCCOZGOG7992-47-06 03:40:0045.4[facility] EyyfgcgANPLSBYEHO7911-51-98 03:40:0095.1[facility] HnniovbVUQJZFMQLT5150-05-62 03:40:00 Test Item Value Reference Range Interpretation Comments MCH (test code = MCH) 33.3 pg 27.0-31.0 [facility] HwtebknWNQTSAHDVK7488-46-85 03:40:0035.0[facility]annHEMATOLOGY 2016-11-10 03:40:0015.6[facility] KqglipqUOESMKMOAP7617-25-87 03:40:004.77[facility] CdgsgzsTCGCBCWCMW4148-49-64 03:40:003.7[facility] OjyvkwpJRAIBIJWCO1553-27-97 03:40:00 Test Item Value Reference Range Interpretation Comments Max Amplitude Rapid (test code = Max 42 mm 52-71 Amplitude Rapid) [facility]BUG5449-18-67 03:40:003.4[facility] 2016-11-10 03:40:00 Test Item Value Reference Range Interpretation Comments Split Point Rapid (test code = Split 0.7 min Point Rapid) [facility] HospitalNbtruskFZNPKTKPEU4930-96-05 03:40:00 Test Item Value Reference Range Interpretation Comments R-time Rapid (test code = R-time 1.1 min 0.4-0.7 Rapid) [facility] HospitalSkzvrkwQBMEAFXOVH6278-30-42 03:40:00 Test Item Value Reference Range Interpretation Comments ACT (TEG) Rapid (test code = ACT (TEG) 152 s 86-118 Rapid) [facility]aw[facility]apAOMFRQRTUD6983-31-69 03:40:00 Test Item Value Reference Range Interpretation Comments K-time Rapid (test code = K-time 4.1 min 0.6-2.3 Rapid) [facility]entonJjpyqbeGGFZRZPNOB7850-60-26 03:40:00 Test Item Value Reference Range Interpretation Comments Angle Rapid (test code = Angle 48 degrees 64-80 Rapid) [facility]entonXdxzzfbOHZDRYUNPT3783-32-88 03:40:000.148[facility] 2016-11-10 03:40:02203Linlqnlo [facility] HospitalannBLOOD BANK AXBLRMY4649-53-02 03:38:00 Negative (11/09/16 9:38 PM)[facility]
--- NOTE | 2020-04-10 17:48 | RAD REPORT ---
EXAM DESCRIPTION: RAD - Chest Single View - 04/10/2020 5:08 pm CLINICAL HISTORY: syncope, shortness of breath COMPARISON: Portable October 2019 TECHNIQUE: AP portable chest image was obtained 04/10/2020 5:08 pm . FINDINGS: Lungs are clear of acute infiltrate. Scarring or atelectasis present in the left base margaret lar to comparison. No failure or volume overload. . Heart and vasculature are normal. No measurable p leural effusion and no pneumothorax. No acute bony abnormality seen. No acute aortic findings suspect ed. IMPRESSION: No acute cardiopulmonary process. No significant interval change.
[2020-04-10 18:16] LABS: Absolute Lymphocytes (CBC) 2.1 K/uL (0.7-4.9); Basophils % 0.7 % (0-1.3); Hematocrit 51.2 % (39.6-49.0); Lymphocytes % 14.9 % (15.3-44.8); MPV 6.5 fL (7.6-11.3); RBC Red Blood Cell Count 5.32 M/uL (4.33-5.43)
[2020-04-10 18:17] LABS: Protime INR 1.08
[2020-04-10 18:40] LABS: ALT/SGPT 95 U/L (12-78); AST/SGOT 84 U/L (15-37); Albumin 4.7 g/dL (3.4-5.0); Alkaline Phosphatase 62 U/L (45-117); BUN Blood Urea Nitrogen 25 mg/dL (7-18); Bicarbonate 23 mmol/L (21-32); Bilirubin Direct 0.6 mg/dL (0-0.2); Bilirubin Total 1.7 mg/dL (0.2-1.0); Creatine Phosphokinase 863 U/L (39-308); Glucose Level 97 mg/dL (74-106); Magnesium 2.2 mg/dL (1.8-2.4); NT PRO-BNP 220 pg/mL (<125); Potassium 3.7 mmol/L (3.5-5.1); Protein, Total 8.8 g/dL (6.4-8.2); Sodium Level 136 mmol/L (136-145); Troponin (Emerg Dept Use Only) < 0.02 ng/mL (0.0-0.045)
--- NOTE | 2020-04-10 19:42 | ER ---
Nurse's Notes [facility] Name: Bro Yung Age: 55 yrs Sex: Male : 1965 Arrival Date: 04/10/2020 Time: 16:21 Bed 20 Private MD: Diagnosis: Dehydration Presentation: 04/10 16:00 Chief complaint: EMS states: [place]. [place] side [place] on [address] [place] police rb1 and they called EMS. Pt. was sweating head to toe and reports that his vision was blurry. His vision has since returned to normal. C/o bilateral foot pain 10/10 from walking around due to being homeless. BP 96/60, P 125, O2 96% RA, T 97.6 orally and BS 166. History of COPD, Bipolar, and depression. NKDA. Stroke assessment was negative. Has 20 G R hand. Admits to drinking alcohol but denies using illicit drugs. Coronavirus screen: Proceed with normal triage. Ebola Screen: Patient negative for fever greater than or equal to 101.5 degrees Fahrenheit, and additional compatible Ebola Virus Disease symptoms. Initial Sepsis Screen: Does the patient meet any 2 criteria? No. Patient's initial sepsis screen is negative. Does the patient have a suspected source of infection? No. Patient's initial sepsis screen is negative. Risk Assessment: Do you want to hurt yourself or someone else? Patient reports no desire to harm self or others. Onset of symptoms was April 10, 2020 at 15:20. 16:00 Method Of Arrival: EMS: [facility] rb1 16:00 Acuity: PATRICIO 3 rb1 Triage Assessment: 16:00 General: Appears in no apparent distress. Behavior is calm, cooperative. Pain: rb1 Complains of pain in bottom of bilateral feet Pain currently is 10 out of 10 on a pain scale. Aggravated by walking around. EENT: Reports vision is back to normal. Neuro: Level of Consciousness is awake, alert, obeys commands, Oriented to person, place, time, situation. Cardiovascular: Capillary refill < 3 seconds. Respiratory: Airway is patent Respiratory effort is even, unlabored, Respiratory pattern is regular, symmetrical. GI: No signs and/or symptoms were reported involving the gastrointestinal system. : No signs and/or symptoms were reported regarding the genitourinary system. Derm: Skin is diaphoretic, Skin is normal. Musculoskeletal: Range of motion: intact in all extremities. Historical: - Allergies: 16:00 No Known Allergies; rb1 - Home Meds: 16:00 Unable to obtain [Active]; rb1 - PMHx: 16:00 Anxiety; CHF; Depression; COPD; Bipolar disorder; rb1 - PSHx: 16:00 ankle; nose; right eye; Tonsillectomy; rb1 - Immunization history:: Adult Immunizations unknown. - Social history:: Smoking status: Patient reports the use of cigarette tobacco products, smokes one pack cigarettes per day. Screenin:00 Abuse screen: Denies threats or abuse. Nutritional screening: No deficits noted. rb1 Tuberculosis screening: No symptoms or risk factors identified. Fall Risk None identified. Assessment: 16:00 General: See triage assessment. rb1 17:00 Reassessment: Patient appears in no apparent distress at this time. Patient and/or rb1 family updated on plan of care and expected duration. Pain level reassessed. Patient is alert, oriented x 3, equal unlabored respirations, skin warm/dry/pink. 18:00 Reassessment: Patient appears in no apparent distress at this time. Gave the pt. a rb1 sandwich, chips and a drink. Provider gave the ok. 19:30 Reassessment: Patient states feeling better. General: Appears in no apparent distress. jd3 comfortable, Behavior is calm, cooperative, appropriate for age. Pain: Denies pain. Neuro: Level of Consciousness is awake, alert, obeys commands, Oriented to person, place, time, situation. Cardiovascular: Denies chest pain, Capillary refill < 3 seconds Patient's skin is warm and dry. Respiratory: Airway is patent Respiratory effort is even, unlabored, Respiratory pattern is regular, symmetrical, Denies cough, shortness of breath. GI: No signs and/or symptoms were reported involving the gastrointestinal system. : No signs and/or symptoms were reported regarding the genitourinary system. EENT: No signs and/or symptoms were reported regarding the EENT system. Derm: Skin is intact, Skin is dry, Skin is normal, Skin temperature is warm. Musculoskeletal: Circulation, motion, and sensation intact. Range of motion:. 20:27 Reassessment: Patient appears in no apparent distress at this time. Patient and/or jd3 family updated on plan of care and expected duration. Pain level reassessed. Patient is alert, oriented x 3, equal unlabored respirations, skin warm/dry/pink. discharged to lobby to wait for a cab Patient states feeling better. Vital Signs: 16:00 BP 128 / 58; Pulse 104; Resp 20; Temp 98.6(O); Pulse Ox 98% on R/A; Weight 79.38 kg; rb1 Height 5 ft. 8 in. (172.72 cm); Pain 10/10; 18:39 BP 141 / 90; Pulse 98; Resp 18; Pulse Ox 99% on R/A; rb1 16:00 Body Mass Index 26.61 (79.38 kg, 172.72 cm) [facility] ED Course: 16:00 Arm band placed on right wrist. rb1 16:00 Patient has correct armband on for positive identification. Bed in low position. Call rb1 light in reach. Side rails up X 1. Pulse ox on. NIBP on. 16:00 Maintain EMS IV. Dressing intact. Good blood return noted. Site clean \T\ dry. Gauge \T\ rb 1 site: 20 G R hand. 16:21 Patient arrived in ED. rb1 16:22 Miguel Bryant PA is PHCP. [facility] 16:22 Chuy Broderick MD is Attending Physician. [facility] 16:28 Triage completed. rb1 16:34 Kate Whitman, RN is Primary Nurse. rb1 17:08 XRAY Chest (1 view) In Process Unspecified. EDMS 19:00 Report given to JESSICA Evans. rb1 20:28 No provider procedures requiring assistance completed. IV discontinued, intact, jd3 bleeding controlled, No redness/swelling at site. Pressure dressing applied. Administered Medications: No medications were administered Outcome: 19:41 Discharge ordered by . jmm 20:28 Discharged to home ambulatory. jd3 20:28 Condition: stable 20:28 Discharge instructions given to patient, Instructed on discharge instructions, follow up and referral plans. Demonstrated understanding of instructions, follow-up care. 20:29 Patient left the ED. ca1 Signatures: Dispatcher [employer] EDMS Miguel Bryant PA PA jmm Barber, Rebecca, RN RN rb1 Sekou Perez RN RN jd3 Марина Paz RN RN ca1
--- NOTE | 2020-04-10 19:42 | EDPHYS ---
Physician Documentation [facility] Name: Bro Yung Age: 55 yrs Sex: Male : 1965 Arrival Date: 04/10/2020 Time: 16:21 Bed 20 Private MD: ED Physician Chuy Broderick HPI: 04/10 16:28 This 55 yrs old Male presents to ER via EMS with complaints of Dehydration. jmm 16:28 The patient has experienced near-syncope. Onset: The symptoms/episode began/occurred jmm acutely, just prior to arrival. Duration: This was a single episode. Context: occurred outdoors. Associated injury: The patient did not suffer any apparent associated injury. Associated signs and symptoms: Pertinent negatives: chest pain, shortness of breath. This is a 55 year old male with a history of copd and CHF that presents to the ED with complaints of fatigue. Patient states he collapsed as he walking outside. Patient states he had been outside of approx 3 hours. . Historical: - Allergies: 16:00 No Known Allergies; rb1 - Home Meds: 16:00 Unable to obtain [Active]; rb1 - PMHx: 16:00 Anxiety; CHF; Depression; COPD; Bipolar disorder; rb1 - PSHx: 16:00 ankle; nose; right eye; Tonsillectomy; rb1 - Immunization history:: Adult Immunizations unknown. - Social history:: Smoking status: Patient reports the use of cigarette tobacco products, smokes one pack cigarettes per day. ROS: 16:28 Cardiovascular: Negative for chest pain, palpitations, and edema, Respiratory: Negative jmm for shortness of breath, cough, wheezing, and pleuritic chest pain, Abdomen/GI: Negative for abdominal pain, nausea, vomiting, diarrhea, and constipation. 16:28 Back: Negative for injury and pain, MS/Extremity: Negative for injury and deformity, Skin: Negative for injury, rash, and discoloration. 16:28 Constitutional: Positive for fatigue. 16:28 Neuro: Positive for weakness. 16:28 All other systems are negative. Exam: 16:28 Constitutional: This is a well developed, well nourished patient who is awake, alert, jmm and in no acute distress. Head/Face: atraumatic. Eyes: EOMI, no conjunctival erythema appreciated ENT: Moist Mucus Membranes Neck: Trachea midline, Supple Chest/axilla: Normal chest wall appearance and motion. Cardiovascular: Regular rate and rhythm. No edema appreciated Respiratory: Normal respirations, no respiratory distress appreciated Abdomen/GI: Non distended, soft Back: Normal ROM Skin: General appearance color normal MS/ Extremity: Moves all extremities, no obvious deformities appreciated, no edema noted to the lower extremities Neuro: Awake and alert, normal gait Psych: Behavior is normal, Mood is normal, Patient is cooperative and pleasant 18:35 ECG was reviewed by the Attending Physician. [facility] Vital Signs: 16:00 BP 128 / 58; Pulse 104; Resp 20; Temp 98.6(O); Pulse Ox 98% on R/A; Weight 79.38 kg; rb1 Height 5 ft. 8 in. (172.72 cm); Pain 10/10; 18:39 BP 141 / 90; Pulse 98; Resp 18; Pulse Ox 99% on R/A; rb1 16:00 Body Mass Index 26.61 (79.38 kg, 172.72 cm) rb1 MDM: 16:22 Patient medically screened. [facility] 19:39 Data reviewed: vital signs, nurses notes. Counseling: I had a detailed discussion with [facility] the patient and/or guardian regarding: the historical points, exam findings, and any diagnostic results supporting the discharge/admit diagnosis, lab results, radiology results, the need for outpatient follow up, to return to the emergency department if symptoms worsen or persist or if there are any questions or concerns that arise at home. ED course: Patient states feeling much better. Patient is able to tolerate PO. No shortness of breath. Patient is advised to follow up with pcp and otherwise given strict return precautions. Patient understood and agrees with the plan of care. . 04/10 16:23 Order name: Basic Metabolic Panel; Complete Time: 18:44 [facility] 04/10 16:23 Order name: CBC with Diff; Complete Time: 18:18 [facility] 04/10 16:23 Order name: LFT's; Complete Time: 18:44 [facility] 04/10 16:23 Order name: Magnesium; Complete Time: 18:44 [facility] 04/10 16:23 Order name: NT PRO-BNP; Complete Time: 18:44 [facility] 04/10 16:23 Order name: PT-INR; Complete Time: 18:18 [facility] 04/10 16:23 Order name: Troponin (emerg Dept Use Only); Complete Time: 18:44 [facility] 04/10 16:23 Order name: XRAY Chest (1 view); Complete Time: 17:54 [facility] 04/10 16:23 Order name: EKG; Complete Time: 16:24 [facility] 04/10 16:23 Order name: Cardiac monitoring; Complete Time: 19:06 [facility] 04/10 16:23 Order name: EKG - Nurse/Tech; Complete Time: 18:48 [facility] 04/10 16:23 Order name: IV Saline Lock; Complete Time: 16:33 [facility] 04/10 16:23 Order name: Labs collected and sent; Complete Time: 18:05 [facility] 04/10 16:23 Order name: CPK; Complete Time: 18:44 [facility] 04/10 16:23 Order name: O2 Per Protocol; Complete Time: 16:33 [facility] 04/10 16:23 Order name: O2 Sat Monitoring; Complete Time: 16:33 jmm EC:35 Rate is 96 beats/min. Rhythm is regular. QRS [place] is Normal. [place] interval is normal. QRS jmm interval is normal. QT interval is normal. No Q waves. T waves are Normal. No ST changes noted. Reviewed by me. Administered Medications: No medications were administered Disposition: 04/11 07:32 Co-signature as Attending Physician, Chuy Broderick MD. rn Disposition: 04/10/20 19:41 Discharged to Home. Impression: Dehydration. - Condition is Stable. - Discharge Instructions: Dehydration, Adult. - Medication Reconciliation Form, Thank You Letter, Antibiotic Education, Prescription Opioid Use form. - Follow up: Private Physician; When: 2 - 3 days; Reason: Recheck today's complaints, Continuance of care, Re-evaluation by your physician. Signatures: Dispatcher [employer] EDMS Miguel Bryant PA PA jmm Nieto, Roman, MD MD rn Barber, Rebecca, RN RN rb1 Марина Paz RN RN ca1 Corrections: (The following items were deleted from the chart) 04/10 20:29 19:41 04/10/2020 19:41 Discharged to Home. Impression: Dehydration. Condition is ca1 Stable. Forms are Medication Reconciliation Form, Thank You Letter, Antibiotic Education, Prescription Opioid Use. Follow up: Private Physician; When: 2 - 3 days; Reason: Recheck today's complaints, Continuance of care, Re-evaluation by your physician. salvatore
[2020-04-10 20:50] VITALS: BP 141/90; O2SAT 99
== END 2020-04-10 20:29 | disposition home or self-care (01) ==
LOC: ER 16:04
DX: E86.0 Dehydration (principal); J44.9 Chronic obstructive pulmonary disease, unspecified; I50.9 Heart failure, unspecified; F17.210 Nicotine dependence, cigarettes, uncomplicated
CPT/HCPCS: 36415; 71045; 80048; 80076; 82550; 83735; 83880; 84484; 85025; 85610; 93005; 99283

== ENCOUNTER 2020-08-02 22:27 | Emergency (ER) | payer SELFPAY ==
--- OUTSIDE RECORDS SUMMARY | 2020-08-02 22:30 | XMS REPORT | Clinical Summary ---
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
--- OUTSIDE RECORDS SUMMARY | 2020-08-02 22:31 | XMS REPORT | Continuity of Care Document ---
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 edical Center Respitory Rate 18 11/11/2016 [facility] Heart Rate 70 11/11/2016 [facility] Heart Rate 65 11/11/2016 [facility] Temperature Oral (F) 97.8 F 11/11/2016 [facility] Respitory Rate 18 11/11/2016 [facility] Systolic (mm Hg) 104 11/11/2016 [facility] Di[facility] (mm Hg) 65 11/11/2016 [facility] Weight 88.636 11/10/2016 [facility] BMI Calculated 29.71 11/10/2016 [facility] Height 172.72 cm 11/10/2016 [facility] Encounters Location Location Encounter Encounter Reason Attending ADM DC Stat us Source Details Type Number For Provider Date Date [facility] [id number] Marsha 11/10 11/11 [facility]2016 [facility] [id number] Shahla Varney 11/12 11/12 [facility] /2016 [facility] [id number] Arminda 11/19 11/19 [facility] Chris /2016 [facility] [id number] Luis Fernando 12/19 12/20 [facility] Be /2016 [facility] Procedures Procedure Code Date Perfomer Comments Source Eye reconstruction [id number] 10/01/1993 [facility] Nose reconstruction [id number] 10/01/1991 [facility] Tonsillectomy and [id number] 10/01/1972 [facility] adenoidectomy [facility] Fracture care [id number] [facility] Assessment and Plan Assessment and Plan Date Source Extracted from:Title: APMS Progress Note* 12/20/2016 [facility] Author: Germaine Smith MD Date: 12/20/16 Patient: [...] 4-6 enoxaparin: 40 mg, 0.4 mL, SUB-Q, [id number] gabapentin: 300 mg, 1 cap, PO, Q8Hnow [...] and hopes to stay at a local [facility], though that possibility is not certain. Initially [...] medications. Extracted from:Title: APMS Progress Note* 11/11/2016 [facility] Author: Анна Benítez MD Date: 11/11/16 Patient: [...] 30 mg = 0.3 mL , SUB-Q, [id number] FLUoxetine 20 mg oral capsule 60 mg = 3 cap, PO, Daily gabapentin 300 mg oral capsule 300 mg = 1 cap, PO, Q8H-05 Latuda 20 mg oral tablet 20 mg = 1 tab, PO, Daily methocarbamol 500 mg oral tablet 1,000 mg = 2 tab, PRN, PO, Q8H-05 [place] 10/325 oral tablet 1 tab, PRN, PO, [...] Charted _ Temp Oral 97.7 DegF (NOV 11:59) Heart Rate Peripheral 77 bpm (NOV 11:59) Resp Rate 18 BRMIN (NOV 11:59) SBP 135 mmHg (NOV 11:59) DBP 79 mmHg (NOV 11:59) SpO2 96 % (NOV 11:) General: Alert and oriented, No acute distress. [...] History: Resolved Hep C w/ coma, chronic ([id number]): Resolved. Chronic Back pain (459684686): Resolved. Bipolar 1 disorder (5803301173): Resolved. Depression (1228591875): Resolved. Family History: High blood pressure Grandparent Type 2 diabetes mellitus Grandparent Procedure history: Eye reconstruction ([id number]) in 1993 at 29 Years. Nose reconstruction ([id number]) in 1991 at 27 Years. Tonsillectomy and adenoidectomy ([id number]) in 1972 at 8 Yea rs. Social [...] Daily Lovenox: 30 mg, 0.3 mL, SUB-Q, [id number] [place] 10/325 oral tablet: 1 tab, PO, Q4H, [...] ml INJ 30 mg 0.3 mL, SUB-Q, [id number] FLUoxetine 20 mg CAP 40 mg 2 [...] 04:42) Heart Rate Apical 82 bpm (NOV 10:15) Resp Rate 19 BRMIN (NOV 10 09:15) [...] endorses sensation to toes. Integumentary: Warm, Dry, [place]. Neurologic: Alert, Oriented. Cognition and Speech: Oriented, [...] per primary APMS will follow. Please call [phone] with questions. Addendum by Hemal López MD [...] History Date Source Social History TypeResponse 12/18/2016 [facility] Substance Abuse Use: Past. Type: Marijuana. [...]
--- OUTSIDE RECORDS SUMMARY | 2020-08-02 22:33 | XMS REPORT | Continuity of Care Document ---
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 Interpretation Comments PTT (test code = PTT) 27.1 s 22.9-35.8 [facility]CHE[facility] WSNBR2550-97-66 08:16:001.5[facility]annCHE[facility] PANEL 2016-11-11 03:15:002.9[facility] TXQIB3284-35-51 15:09:003.9[facility] BtlmwkpFBVYZCSKEI2114-94-15 08:26:001.12[facility] DeglojdWSRWGKRDLC1105-38-63 08:26:00 Test Item Value Reference Range Interpretation Comments PT (test code = PT) 14.6 s 12.0-14.7 [facility] AND IEQCN3982-33-99 07:15:02None Seen (11/10/16 1:15 AM) [facility] QQMPF2324-40-17 07:15:02None Seen (11/10/16 1:15 AM) [facility] LWZXS1835-71-10 07:15:02None Seen (11/10/16 1:15 AM) [facility] SUXCF3851-33-96 07:15:02Negative (11/10/16 1:15 AM) [facility] MQILL5989-89-12 07:15:02Negative (11/10/16 1:15 AM) [facility] IDAKA4062-35-66 07:15:02Yellow *NA*(11/10/16 1:15 AM) [facility] UROFP9988-69-56 07:15:02 Test Item Value Reference Range Interpretation Comments UA pH (test code = UA pH) 5.5 1 5.0-8.0 [facility] ISGNJ0494-74-07 07:15:02Negative (11/10/16 1:15 AM) [facility] EJCCG3696-15-29 07:15:02Negative (11/10/16 1:15 AM) [facility] LIKGP3728-37-94 07:15:02Negative *NA*(11/10/16 1:15 AM) [facility] EZKCV4940-26-57 07:15:02Negative (11/10/16 1:15 AM) [facility] OAMRL8830-93-47 07:15:020.2[facility] XWVYH0050-53-74 07:15:02Clear (11/10/16 1:15 AM)[facility] STOOL 2016-11-10 07:15:02 Test Item Value Reference Range Interpretation Comments UA Spec Grav (test code = UA Spec 1.047 1 Grav) [facility] GAFDXQ1578-71-23 07:15:00See Note (11/10/16 1:15 AM)[facility] YXENQQ9889-62-18 07:15:00Positive *ABN*(11/10/16 1:15 AM)[facility] UOJVUD9218-50-17 07:15:00Negative *NA*(11/10/16 1:15 AM)[facility] LANEQA7642-61-37 07:15:00Negative *NA*(11/10/16 1:15 AM)[facility] MAJPWH1166-01-38 07:15:00Positive *ABN*(11/10/16 1:15 AM)[facility] NJQPXZ4465-88-47 07:15:00Negative *NA*(11/10/16 1:15 AM)[facility] JDOWTF3999-78-69 07:15:00Negative *NA*(11/10/16 1:15 AM)[facility] HKDCCI6460-73-64 07:15:00Negative *NA*(11/10/16 1:15 AM)[facility] XvwhmpkOKBRJXJCQYEH8085-34-40 03:40:0018.2[facility] BtxyolhIYGQRONLEBLJ6127-68-47 03:40:0086[facility] JzeaqqeKYHZHBDZXYRY0906-90-69 03:40:11647Yrzfpudb [place] SRCXFQXPNFTO9703-30-25 03:40:0024[facility] AamgdkaDSYNAFGYERZH7324-13-79 03:40:00 98[facility] HysiessKNCXEOCAJKXJ7218-05-54 03:40:003.2[facility] HermannELECTROLYTES 2016-11-10 03:40:0014[facility] MxjadptQQGZKPPOTITW0175-57-52 03:40:0080[facility] HxoidqfRNQJCTSJCHXS4892-14-51 03:40:001.15[facility] TeptyniZIRFWXYLILYW4800-17-27 03:40:009.0[facility] DwuocybQPUKDQWGDC5052-80-96 03:40:0010.5[facility] CKBVWZXTDH1906-12-73 03:40:000.5[facility] TyqoqlzCWGJWVGYCR5013-15-48 03:40:001.1 [facility] IeoaaqdIPHRKBZZTH2025-06-90 03:40:004.0[facility]annHEMATOLOGY 2016-11-10 03:40:000.8[facility] PthdjupZCPCLOVKOV0796-78-32 03:40:000.1[facility] DycewhgYTPDBGPSSF2162-80-14 03:40:000.2[facility] OxrpwztEOGDNQNMPE8904-94-11 03:40:0067.1[facility] GexodtkOHNDUPQRAU7983-50-79 03:40:0026.0[facility] [place] VUBQIYZTRC3371-53-21 03:40:005.3[facility] XqggdwzWTKHDJZNED9787-79-58 03:40:00 12.8[facility] EztkpyyWGZHKYVSIG1677-93-47 03:40:39967Swezxgvi [facility]HEMATOLOGY 2016-11-10 03:40:006.1[facility] UzlgzspTZMTVCXAOC0867-72-03 03:40:0015.9[facility] FybndmiCMMAAHFXBK9577-56-13 03:40:0045.4[facility] NztmjwwASDCQQLFVI1946-02-88 03:40:0095.1[facility] NmoctuuEUSMDLMUGE3348-56-26 03:40:00 Test Item Value Reference Range Interpretation Comments MCH (test code = MCH) 33.3 pg 27.0-31.0 [facility] LdkpvjuJTUMEMOPVE1956-18-21 03:40:0035.0[facility]HEMAT[facility] 2016-11-10 03:40:0015.6[facility] RzvvfocBBFWHELFMY1555-15-93 03:40:004.77[facility] YjgwdggLHYSZTHFYO6570-63-88 03:40:003.7[facility] TufmshhUJUOVUMADU9984-29-69 03:40:00 Test Item Value Reference Range Interpretation Comments Max Amplitude Rapid (test code = Max 42 mm 52-71 Amplitude Rapid) [facility] YuopmdcXJTTTHKSSR7517-14-48 03:40:003.4[facility]annHEMATOLOGY 2016-11-10 03:40:00 Test Item Value Reference Range Interpretation Comments Split Point Rapid (test code = Split 0.7 min Point Rapid) [facility] OnjhuivGRHIOWXLSR5853-29-20 03:40:00 Test Item Value Reference Range Interpretation Comments R-time Rapid (test code = R-time 1.1 min 0.4-0.7 Rapid) [facility] NdilmliIZVOOVCVBB3793-73-40 03:40:00 Test Item Value Reference Range Interpretation Comments ACT (TEG) Rapid (test code = ACT (TEG) 152 s 86-118 Rapid) [facility]FnpfvpoOKUYSGEXVI5628-69-98 03:40:00 Test Item Value Reference Range Interpretation Comments K-time Rapid (test code = K-time 4.1 min 0.6-2.3 Rapid) [facility]IXFCRGG9021-19-02 03:40:00 Test Item Value Reference Range Interpretation Comments Angle Rapid (test code = Angle 48 degrees 64-80 Rapid) [facility] CenterNnlksubZMXYVJZBZE6383-96-86 03:40:000.148[facility] 2016-11-10 03:40:02374Efdsmpek [place] [facility]BL[facility] CYMGNFN9521-44-66 03:38:00 Negative (11/09/16 9:38 PM)[facility]
--- NOTE | 2020-08-02 22:56 | EDPHYS ---
Physician Documentation [facility] Name: Bro Yung Age: 55 yrs Sex: Male : 1965 Arrival Date: 08/02/2020 Time: 22:29 Bed 18 Private MD: ED Physician Mushtaq Dorman HPI: 08/03 00:36 This 55 yrs old Male presents to ER via Ambulatory with complaints of Foreign tw4 Body In Ear. 00:36 The patient presents with a foreign body sensation, pain, that is chronic. The tw4 complaints affect the right ear. Onset: The symptoms/episode began/occurred 6 month(s) ago. Modifying factors: The symptoms are alleviated by nothing, the symptoms are aggravated by nothing. Associated signs and symptoms: The patient has no apparent associated signs or symptoms. Severity of symptoms: At their worst the symptoms were moderate in the emergency department the symptoms are unchanged. The patient has not experienced similar symptoms in the past. Historical: - Allergies: 08/02 22:38 No Known Allergies; aj1 - Home Meds: 22:38 None [Active]; aj1 - PMHx: 22:38 Anxiety; Bipolar disorder; CHF; COPD; Depression; aj1 - PSHx: 22:38 eye surgery; ankle surgery; Tonsillectomy; aj1 - Immunization history:: Flu vaccine is not up to date. - Social history:: Smoking status: Patient reports the use of cigarette tobacco products, smokes one pack cigarettes per day. ROS: 08/03 00:36 Constitutional: Negative for fever, chills, and weight loss, Eyes: Negative for injury, tw4 pain, redness, and discharge. Cardiovascular: Negative for chest pain, palpitations, and edema, Respiratory: Negative for shortness of breath, cough, wheezing, and pleuritic chest pain, Abdomen/GI: Negative for abdominal pain, nausea, vomiting, diarrhea, and constipation, : Negative for injury, bleeding, discharge, and swelling, Skin: Negative for injury, rash, and discoloration. ENT: Positive for ear pain, foreign body sensation. Exam: 00:36 Constitutional: This is a well developed, well nourished patient who is awake, alert, tw4 and in no acute distress. Head/Face: Normocephalic, atraumatic. Eyes: Pupils equal round and reactive to light, extra-ocular motions intact. Lids and lashes normal. Conjunctiva and sclera are non-icteric and not injected. Cornea within normal limits. Periorbital areas with no swelling, redness, or edema. 00:36 Neck: Trachea midline, no thyromegaly or masses palpated, and no cervical lymphadenopathy. Supple, full range of motion without nuchal rigidity, or vertebral point tenderness. No Meningismus. Cardiovascular: Regular rate and rhythm with a normal S1 and S2. No gallops, murmurs, or rubs. Normal PMI, no JVD. No pulse deficits. Respiratory: Lungs have equal breath sounds bilaterally, clear to auscultation and percussion. No rales, rhonchi or wheezes noted. No increased work of breathing, no retractions or nasal flaring. Back: No spinal tenderness. No costovertebral tenderness. Full range of motion. 00:36 ENT: TM's: erythema, that is mild, on the right, no FB seen. Vital Signs: 08/02 22:35 BP 124 / 84; Pulse 88; Resp 18; Temp 97.3; Pulse Ox 100% on R/A; Weight 70.31 kg (R); aj1 Height 5 ft. 8 in. (172.72 cm) (R); Pain 7/10; 22:35 Body Mass Index 23.57 (70.31 kg, 172.72 cm) aj1 MDM: 22:31 Patient medically screened. tw4 22:55 Data reviewed: vital signs, nurses notes. Medical screen evaluation completed. [place] [id number] emergency medical condition absent. 08/03 00:36 Differential diagnosis: otitis media. Counseling: I had a detailed discussion with the 4 patient and/or guardian regarding: the historical points, exam findings, and any diagnostic results supporting the discharge/admit diagnosis, the need for outpatient follow up. Special discussion: I discussed with the patient/guardian in detail that at this point there is no indication for admission to the hospital. It is understood, however, that if the symptoms persist or worsen the patient needs to return immediately for re-evaluation. Administered Medications: No medications were administered Disposition: 08/02/20 22:55 Discharged to Home. Impression: Otalgia, right ear. - Condition is Stable. - Medication Reconciliation Form, Thank You Letter, Antibiotic Education, Prescription Opioid Use form. - Follow up: Private Physician; When: Upon discharge from the Emergency Department; Reason: Recheck today's complaints, Continuance of care, Re-evaluation by your physician. - Problem is new. - Symptoms have improved. Signatures: Maile Duke RN RN aj1 Mushtaq Dorman MD MD tw4 Corrections: (The following items were deleted from the chart) 08/02 22:56 22:55 08/02/2020 22:55 Discharged to Home. Impression: Otalgia, right ear. Condition is aj1 Stable. Forms are Medication Reconciliation Form, Thank You Letter, Antibiotic Education, Prescription Opioid Use. Follow up: Private Physician; When: Upon discharge from the Emergency Department; Reason: Recheck today's complaints, Continuance of care, Re-evaluation by your physician. Problem is new. Symptoms have improved. tw4
--- NOTE | 2020-08-02 22:56 | ER ---
Nurse's Notes [facility] Name: Bro Yung Age: 55 yrs Sex: Male : 1965 Arrival Date: 08/02/2020 Time: 22:29 Bed 18 Private MD: Diagnosis: Otalgia, right ear Presentation: 08/02 22:35 Chief complaint: Patient states: He has felt like he has something stuck in his ear for aj1 the past 6 months, states that he was seen at this ER and other facilities to have it removed but every time he is told there is nothing in his ear. Coronavirus screen: Client denies travel out of the [place] in the last 14 days. At this time, the client does not indicate any symptoms associated with coronavirus-19. Ebola Screen: Patient denies travel to an Ebola-affected area in the 21 days before illness onset. Initial Sepsis Screen: Does the patient meet any 2 criteria? No. Patient's initial sepsis screen is negative. Does the patient have a suspected source of infection? No. Patient's initial sepsis screen is negative. Risk Assessment: Do you want to hurt yourself or someone else? Patient reports no desire to harm self or others. Onset of symptoms was 2019. 22:35 Method Of Arrival: Ambulatory aj1 22:35 Acuity: PATRICIO 5 aj1 Triage Assessment: 22:38 General: Appears in no apparent distress. uncomfortable, Behavior is calm, cooperative, aj1 appropriate for age. Pain: Complains of pain in right ear. Historical: - Allergies: 22:38 No Known Allergies; aj1 - Home Meds: 22:38 None [Active]; aj1 - PMHx: 22:38 Anxiety; Bipolar disorder; CHF; COPD; Depression; aj1 - PSHx: 22:38 eye surgery; ankle surgery; Tonsillectomy; aj1 - Immunization history:: Flu vaccine is not up to date. - Social history:: Smoking status: Patient reports the use of cigarette tobacco products, smokes one pack cigarettes per day. Screenin:38 Abuse screen: Denies threats or abuse. Denies injuries from another. Nutritional aj1 screening: No deficits noted. Tuberculosis screening: No symptoms or risk factors identified. 22:50 Fall Risk None identified. aj1 Assessment: 22:38 General: Appears in no apparent distress. uncomfortable, Behavior is calm, cooperative, aj1 appropriate for age. Pain: Complains of pain in right ear. Neuro: Level of Consciousness is awake, alert, obeys commands, Oriented to person, place, time, situation. Cardiovascular: Patient's skin is warm and dry. Respiratory: Airway is patent Respiratory effort is even, unlabored, Respiratory pattern is regular, symmetrical. GI: No signs and/or symptoms were reported involving the gastrointestinal system. : No signs and/or symptoms were reported regarding the genitourinary system. EENT: Reports pain in right ear. Derm: No signs and/or symptoms reported regarding the dermatologic system. Skin is pink, warm \T\ dry. normal. Musculoskeletal: No signs and/or symptoms reported regarding the musculoskeletal system. Circulation, motion, and sensation intact. Vital Signs: 22:35 BP 124 / 84; Pulse 88; Resp 18; Temp 97.3; Pulse Ox 100% on R/A; Weight 70.31 kg (R); aj1 Height 5 ft. 8 in. (172.72 cm) (R); Pain 7/10; 22:35 Body Mass Index 23.57 (70.31 kg, 172.72 cm) aj1 ED Course: 22:29 Patient arrived in ED. cl3 22:31 Mushtaq Dorman MD is Attending Physician. tw4 22:35 Maile Duke RN is Primary Nurse. aj1 22:37 Triage completed. aj1 22:38 Arm band placed on Patient placed in an exam room. aj1 22:38 Patient has correct armband on for positive identification. Bed in low position. Call aj1 light in reach. Side rails up X 1. 22:38 No provider procedures requiring assistance completed. Patient did not have IV access aj1 during this emergency room visit. Administered Medications: No medications were administered Outcome: 22:50 Medical screen evaluation completed per provider. Patient declined treatment. aj1 22:50 Condition: good 22:50 Following a medical screening exam, the patient was provided information regarding alternative care sites and resources available per registration personnel. 22:55 Discharge ordered by . tw4 22:56 Patient left the ED. aj1 Signatures: Maile Duke RN RN Mushtaq Saez MD MD tw4 [place] Santoyo cl3
[2020-08-02 23:10] VITALS: BP 124/84; TEMP 97.3; O2SAT 100
== END 2020-08-02 22:56 | disposition home or self-care (01) ==
LOC: ER 22:27
DX: H92.01 Otalgia, right ear (principal); F31.9 Bipolar disorder, unspecified; F17.210 Nicotine dependence, cigarettes, uncomplicated
CPT/HCPCS: 99281

== ENCOUNTER 2020-09-06 | Emergency (ER) | payer SELFPAY ==
--- OUTSIDE RECORDS SUMMARY | 2020-09-06 06:21 | XMS REPORT | Clinical Summary ---
:1965 Author Organization [facility] Address [facility] [place] [address] Care Team Providers Name Role Phone Unavailable [...] 06/12/2016 COPD (chronic obstructive pulmonary disease) with hospital housekeeper larry bronchitis 06/12/2016 Enlarged heart 06/02/2016 Screening [...] yrs) 07/01/2020 07/03/2016 Results Not on fileafter 09/06/2019 Advance Directives Code Status Date Activated Date Inactivated Comments Full Code 08/10/2014 8:10 PM 08/11/2014 10:49 AM
--- OUTSIDE RECORDS SUMMARY | 2020-09-06 06:23 | XMS REPORT | Continuity of Care Document ---
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 500 mg oral tablet 1,000 mg = 2 tab, PRN, PO, Q8H-05 [place] 10/325 oral tablet 1 tab, PRN, PO, [...] History: Resolved Hep C w/ coma, chronic ([id number]): Resolved. Chronic Back pain (822927091): Resolved. Bipolar 1 disorder (8530639898): Resolved. Depression (0231553513): Resolved. Family History: High blood pressure Grandparent Type 2 diabetes mellitus Grandparent Procedure history: Eye reconstruction ([id number]) in 1993 at 29 Years. Nose reconstruction (5787589805) in 1991 at 27 Years. Tonsillectomy and adenoidectomy (229032197) in 1972 at 8 Yea rs. Social [...] Daily Lovenox: 30 mg, 0.3 mL, SUB-Q, [id number] [place] 10/325 oral tablet: 1 tab, PO, Q4H, [...] ml INJ 30 mg 0.3 mL, SUB-Q, [id number] FLUoxetine 20 mg CAP 40 mg 2 [...] endorses sensation to toes. Integumentary: Warm, Dry, [place]. Neurologic: Alert, Oriented. Cognition and Speech: Oriented, [...] per primary APMS will follow. Please call [phone] with questions. Addendum by Hemal López MD [...] History Date Source Social History TypeResponse 12/18/2016 [facility] Substance Abuse Use: Past. Type: Marijuana. Alcohol [...]
--- OUTSIDE RECORDS SUMMARY | 2020-09-06 06:24 | XMS REPORT | Continuity of Care Document ---
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 07:15:00Negative *NA*(11/10/16 1:15 AM)[facility] FHVMRZ1833-44-86 07:15:00Positive *ABN*(11/10/16 1:15 AM)[facility] VUDGSN6773-52-33 07:15:00Negative *NA*(11/10/16 1:15 AM)[facility] YRLOQR3054-84-20 07:15:00Negative *NA*(11/10/16 1:15 AM)[facility] VXRSAJ7432-71-58 07:15:00Negative *NA*(11/10/16 1:15 AM)[facility] OrichtxJMWKZHCREOFK2342-40-61 03:40:0018.2[facility] QaavswmXJNYCOLEFSYO0654-43-80 03:40:0086[facility] LwxoiqwKBKIXQNPUYAH6169-45-20 03:40:18517Qlmzflto Jaden CEEUWIHCWAPQ9300-51-79 03:40:0024[facility] TzjtpknRVLXNFBVDHTO3183-58-90 03:40:00 98[facility] PauzhkfMIIPFTIWYMJU9368-39-52 03:40:003.2[facility]annELECTROLYTES 2016-11-10 03:40:0014[facility] OgouvbhHHURURIMFZXK1476-53-39 03:40:0080[facility] PwzonmeZORCCCGPAYTL9385-40-66 03:40:001.15[facility] FolnzoiTDGVORXUDMJB7507-85-71 03:40:009.0[facility] JpkxplkONKOCOCUKA6700-13-15 03:40:0010.5[facility] [place] AJDWQDVJUV6288-79-61 03:40:000.5[facility] WxnyukpAYQUHUXYZT0304-61-55 03:40:001.1 [facility] OabpzydKKIWEOBSXQ9971-99-18 03:40:004.0[facility]annHEMATOLOGY 2016-11-10 03:40:000.8[facility] HgkehofEDYPOIVPSK0565-01-78 03:40:000.1[facility] XmsxgfiPBBGXLVOVL1060-96-08 03:40:000.2[facility] MrjqktuMCFAJSDBWA3632-44-02 03:40:0067.1[facility] PouilrcXNOQWBOUVW6459-03-10 03:40:0026.0[facility] TUCCSEIODP0517-72-39 03:40:005.3[facility] WgvzyhzKJDMMEWBAD1610-85-80 03:40:00 12.8[facility] ZwpspurUVNECEPROC4070-67-99 03:40:22201Ozvlzygj HermannHEMATOLOGY 2016-11-10 03:40:006.1[facility] WiogdelLTGAHNWDLX3064-31-34 03:40:0015.9[facility] KttfrytGYOJVDUOOX4807-56-08 03:40:0045.4[facility] EshocvcWRQTFIAIYW1733-65-29 03:40:0095.1[facility] NnsehgsQTQAKHLWRS0514-46-10 03:40:00 Test Item Value Reference Range Interpretation Comments MCH (test code = MCH) 33.3 pg 27.0-31.0 [facility] HarrqzsKILWGZYJIS4597-18-02 03:40:0035.0[facility] 2016-11-10 03:40:0015.6[facility] YfgasouJDIYQOUQOY7887-11-15 03:40:004.77[facility] RzzewskWHWHCOJQYC3352-15-02 03:40:003.7[facility] DqranxqNYFYCJCAJW6839-36-81 03:40:00 Test Item Value Reference Range Interpretation Comments Max Amplitude Rapid (test code = Max 42 mm 52-71 Amplitude Rapid) [facility]AMAN7105-[facility]-94 03:40:003.4[facility] 2016-11-10 03:40:00 Test Item Value Reference Range Interpretation Comments Split Point Rapid (test code = Split 0.7 min Point Rapid) [facility] WpznzlaLZSCYUBEEC1278-56-46 03:40:00 Test Item Value Reference Range Interpretation Comments R-time Rapid (test code = R-time 1.1 min 0.4-0.7 Rapid) [facility] HospitalWljybrtZUJUBTHVOU5000-80-66 03:40:00 Test Item Value Reference Range Interpretation Comments ACT (TEG) Rapid (test code = ACT (TEG) 152 s 86-118 Rapid) [facility]pfpdvKBEFHYGGOW8293-88-79 03:40:00 Test Item Value Reference Range Interpretation Comments K-time Rapid (test code = K-time 4.1 min 0.6-2.3 Rapid) [facility] HospitalVpvospkALRNZLSUDP2989-69-87 03:40:00 Test Item Value Reference Range Interpretation Comments Angle Rapid (test code = Angle 48 degrees 64-80 Rapid) [facility] HospitalOzmaqyuMWQGTPGAGN6540-14-86 03:40:000.148[facility]annTOXICOLOGY 2016-11-10 03:40:29195Xbfxoaoi [facility]BLO[facility] B[facility] YNWDTNK7651-07-85 03:38:00 Negative (11/09/16 9:38 PM)[facility]
--- NOTE | 2020-09-06 07:02 | ER ---
Nurse's Notes [facility] Name: Bro Yung Age: 55 yrs Sex: Male : 1965 Arrival Date: 09/06/2020 Time: 06:24 Bed Waiting Private MD: Diagnosis: ED Course: 09/06 06:24 Patient arrived in ED. ag3 06:44 Patient's name was called from ER lobby. Unable to locate patient. Will disposition as lp1 left without being seen by a provider. Administered Medications: No medications were administered Outcome: 07:01 Patient left the ED. tl1 Signatures: Rebecca Stauffer RN RN lp1 Jen Covington RN RN tl1 April Mcguire ag3
== END 2020-09-06 07:01 | disposition left against medical advice (07) ==
DX: Z02.9 Encounter for administrative examinations, unspecified (principal)

== ENCOUNTER 2020-12-25 23:59 | Emergency (ER) | payer SELFPAY ==
--- OUTSIDE RECORDS SUMMARY | 2020-12-26 00:05 | XMS REPORT | Continuity of Care Document ---
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 SfxqfaqQVLEHLLLWC7931-55-58 02:24:000.97[facility] 2016-11-19 02:24:00 Test Item Value Reference Range Interpretation Comments PTT (test code = PTT) 27.1 s 22.9-35.8 [facility] JALDY5245-82-46 08:16:001.5[facility] PANEL 2016-11-11 03:15:002.9[facility] ESMJM3623-99-17 15:09:003.9[facility] WojzfuuGWYAERRYMZ2541-77-35 08:26:001.12[facility] BfjjnawPLEPTBNADJ0551-91-23 08:26:00 Test Item Value Reference Range Interpretation Comments PT (test code = PT) 14.6 s 12.0-14.7 [facility] QMPYO6488-34-95 07:15:02Yellow *NA*(11/10/16 1:15 AM) [facility] KARHG3546-78-43 07:15:02 Test Item Value Reference Range Interpretation Comments UA pH (test code = UA pH) 5.5 1 5.0-8.0 [facility] VGNTD4725-46-11 07:15:02Negative (11/10/16 1:15 AM) [facility] VKWEM5822-30-10 07:15:02Negative (11/10/16 1:15 AM) [facility] LCQDX4610-11-04 07:15:02Negative *NA*(11/10/16 1:15 AM) [facility] EJTWW5281-17-99 07:15:02Negative (11/10/16 1:15 AM) [facility] HNBSW2546-41-79 07:15:020.2[facility] XXAQH5423-90-72 07:15:02Clear (11/10/16 1:15 AM)[facility] STOOL 2016-11-10 07:15:02 Test Item Value Reference Range Interpretation Comments UA Spec Grav (test code = UA Spec 1.047 1 Grav) [facility] HBHQX9247-91-22 07:15:02None Seen (11/10/16 1:15 AM) [facility] PFUKG0562-84-26 07:15:02None Seen (11/10/16 1:15 AM) [facility] NRBXK7606-90-19 07:15:02None Seen (11/10/16 1:15 AM) [facility] OEWDY6992-62-33 07:15:02Negative (11/10/16 1:15 AM) [facility] SGDXN8596-85-56 07:15:02Negative (11/10/16 1:15 AM) [facility] IJEUTF3129-29-33 07:15:00See Note (11/10/16 1:15 AM)[facility] YBJWBJ5061-17-66 07:15:00Positive *ABN*(11/10/16 1:15 AM)[facility] MAUGKV7517-63-55 07:15:00Negative *NA*(11/10/16 1:15 AM)[facility] EIHJOE0382-85-24 07:15:00Negative *NA*(11/10/16 1:15 AM)[facility] ZKVSGM5374-65-91 07:15:00Positive *ABN*(11/10/16 1:15 AM)[facility] XHBYUZ1215-27-54 07:15:00Negative *NA*(11/10/16 1:15 AM)[facility] IMWLBZ8554-81-81 07:15:00Negative *NA*(11/10/16 1:15 AM)[facility] WYQWQZ2302-70-60 07:15:00Negative *NA*(11/10/16 1:15 AM)[facility] DcnqufgELPSUDWWHYMY0952-41-45 03:40:0018.2[facility] CnibupnCXFRDBVPMHII5990-40-26 03:40:0086[facility] XncpusuYXGCSEJWGBYK5213-29-10 03:40:75010Motegzji Jaden HLSTEQKSQGOH9135-33-88 03:40:0024[facility] UomxcunRPCIYMQWPYIJ1544-56-15 03:40:00 98[facility] BrizqfnSZIDISZSCVES1752-91-48 03:40:003.2[facility]ann[facility]LECTROLYTES 2016-11-10 03:40:0014[facility] FdtfsznWXAPPPAAQAPO1447-38-04 03:40:0080[facility] JxgsekgUOKYQQUXVGHN3640-52-28 03:40:001.15[facility] RfjdhakVNZBOSPTRQTK3624-02-04 03:40:009.0[facility] UaxlqtkNIHEVAEXSM6366-28-25 03:40:0010.5[facility] BADUAOOFLN6229-80-87 03:40:000.5[facility] ErltscnHIIZJKSXIL2038-85-96 03:40:001.1 [facility] KkyqvqbQOTSDYTPJF3705-05-86 03:40:004.0[facility]MATOLOGY 2016-11-10 03:40:000.8[facility] UosltbtEOGJLNFTQW3457-60-45 03:40:000.1[facility] IxhbeyhHRGRLCTWEI2884-32-30 03:40:000.2[facility] BeachehEGPLPVBYQY0994-90-31 03:40:0067.1[facility] XodgpnfMJYGAGJLYY0979-84-41 03:40:0026.0[facility] BDMPLHVOQH6653-14-15 03:40:005.3[facility] BcspsnwGRDNNXYRHR5450-78-85 03:40:00 12.8[facility] EjetdkoSCWJDGJCNY7445-16-46 03:40:11508[facility] 2016-11-10 03:40:006.1[facility] YxoloecIQQEJNUXUP7915-88-57 03:40:0015.9[facility] JhsjzbbHUCKHWHAMN4448-83-35 03:40:0045.4[facility] IexawmfYCPTHYDWUB3407-07-29 03:40:0095.1[facility] NthbbfjEKLMFMLPGS1701-42-53 03:40:00 Test Item Value Reference Range Interpretation Comments MCH (test code = MCH) 33.3 pg 27.0-31.0 [facility] ZwccvlmIUYIMBJVHA9119-98-89 03:40:0035.0[facility] 2016-11-10 03:40:0015.6[facility] NolviakHPPXGJQVLC9088-41-69 03:40:004.77[facility] KkqxdjoRABGLMGBWB1225-86-35 03:40:003.7[facility] DmycguhZUAFLQVSZT6870-85-21 03:40:00 Test Item Value Reference Range Interpretation Comments Max Amplitude Rapid (test code = Max 42 mm 52-71 Amplitude Rapid) [facility] VcqlyyhZJUMJHCEIZ8450-63-10 03:40:003.4[facility] 2016-11-10 03:40:00 Test Item Value Reference Range Interpretation Comments Split Point Rapid (test code = Split 0.7 min Point Rapid) [facility] MrwmonzUKESSVRTPI2417-37-54 03:40:00 Test Item Value Reference Range Interpretation Comments R-time Rapid (test code = R-time 1.1 min 0.4-0.7 Rapid) [facility]BLC8313[facility]97-52 03:40:00 Test Item Value Reference Range Interpretation Comments ACT (TEG) Rapid (test code = ACT (TEG) 152 s 86-118 Rapid) [facility]vqePXASGBBKUA2129-78-16 03:40:00 Test Item Value Reference Range Interpretation Comments K-time Rapid (test code = K-time 4.1 min 0.6-2.3 Rapid) [facility] HospitalUwgnbadULIQNYXJMY2062-23-78 03:40:00 Test Item Value Reference Range Interpretation Comments Angle Rapid (test code = Angle 48 degrees 64-80 Rapid) [facility] HospitalNjkclzdAPNINKVCNQ2449-24-26 03:40:000.148[facility] 2016-11-10 03:40:96115Aoauqfvk [facility]bergBLOOD BANK GHFXLDZ8864-65-61 03:38:00 Negative (11/09/16 9:38 PM)[facility]
[2020-12-26] MEDS ORDERED: ZIPRASIDONE MESYLA 20 MG/VIAL IM ONE (04:01)
[2020-12-26] MEDS ORDERED: WATER FOR INJ,STERILE 10 ML ONE (04:01)
[2020-12-26 04:52] LABS: Protime INR 1.01
[2020-12-26 04:53] LABS: Absolute Lymphocytes (CBC) 3.3 K/uL (0.7-4.9); Basophils % 0.8 % (0-1.3); Hematocrit 46.2 % (39.6-49.0); Lymphocytes % 41.1 % (15.3-44.8); MPV 7.2 fL (7.6-11.3); RBC Red Blood Cell Count 4.89 M/uL (4.33-5.43)
[2020-12-26 05:11] LABS: ALT/SGPT 46 U/L (12-78); AST/SGOT 39 U/L (15-37); Albumin 3.7 g/dL (3.4-5.0); Alkaline Phosphatase 78 U/L (45-117); BUN Blood Urea Nitrogen 13 mg/dL (7-18); Bicarbonate 28 mmol/L (21-32); Bilirubin Direct 0.3 mg/dL (0-0.2); Bilirubin Total 0.6 mg/dL (0.2-1.0); Glucose Level 113 mg/dL (74-106); Potassium 3.7 mmol/L (3.5-5.1); Protein, Total 7.5 g/dL (6.4-8.2); Sodium Level 141 mmol/L (136-145)
[2020-12-26 06:20] LABS: Urine Blood NEGATIVE (Negative); Urine Glucose NEGATIVE (Negative); Urine Protein NEGATIVE (NEG); Urine Specific Gravity >1.030 (1.005-1.030)
[2020-12-26 06:42] LABS: Barbiturates NEGATIVE (NEGATIVE); Benzodiazepines NEGATIVE (NEGATIVE); Cocaine NEGATIVE (NEGATIVE); METHAMPHETAM POSITIVE (NEGATIVE); Methadone NEGATIVE (NEGATIVE); Opiates NEGATIVE (NEGATIVE); Phencyclidine NEGATIVE (NEGATIVE); THC Cannibis POSITIVE (NEGATIVE)
--- NOTE | 2020-12-26 09:48 | EKG ---
Test Date: 2020-12-26 Test Time: 04:21:40 [employer] MEASUREMENT RESULTS: Intervals: Rate: 74 OK: 120 QRSD: 94 QT: 394 QTc: 437 [place]: P: 74 OK: 120 QRS: 78 T: 65 INTERPRETIVE STATEMENTS: Normal sinus rhythm Normal ECG Compared to ECG 04/10/2020 18:21:12 No significant changes Electronically Signed On 12-26-20 09:47:30 CDT by Chidi Porter
--- NOTE | 2020-12-26 15:08 | EDPHYS ---
Physician Documentation [facility] Name: Bro Yung Age: 55 yrs Sex: Male : 1965 Arrival Date: 12/26/2020 Time: 00:03 Bed 17 Private MD: ED Physician Chuy Broderick HPI: 12/26 03:31 This 55 yrs old Male presents to ER via Ambulatory with complaints of Ear mh7 Pain, Foreign Body In Ear. 03:31 The patient presents with a foreign body sensation, presumably from an insect, pain, mh7 moderate. The complaints affect the right ear. Onset: The symptoms/episode began/occurred 1 year(s) ago. Modifying factors: The symptoms are alleviated by nothing, the symptoms are aggravated by nothing. Associated signs and symptoms: Pertinent negatives: cough, fever, lightheadedness, nausea, rhinorrhea, sinus trouble, shortness of breath, sore throat, tinnitus, vertigo, vomiting. 03:32 Severity of symptoms: At their worst the symptoms were moderate one year ago, in the [facility] emergency department the symptoms are unchanged. The patient has experienced similar episodes in the past, chronically. States that he feels like there is an insect in his right ear for a year. He has been to multiple doctors but no insect or other problem found.. Historical: - Allergies: 00:13 No Known Allergies; bb - Home Meds: 00:13 None [Active]; bb - PMHx: 00:13 Anxiety; Bipolar disorder; CHF; COPD; Depression; bb - PSHx: 00:13 Tonsillectomy; nose surgery; ankle surgery; bb - Immunization history:: Adult Immunizations up to date. - Social history:: Smoking status: Patient reports the use of cigarette tobacco products, smokes one pack cigarettes per day. Patient uses street drugs, marijuana, Methamphetamine (Meth) Patient/guardian denies using alcohol. ROS: 03:32 Constitutional: Negative for fever, chills, and weight loss, Eyes: Negative for injury, mh7 pain, redness, and discharge, Neck: Negative for injury, pain, and swelling, Cardiovascular: Negative for chest pain, palpitations, and edema, Respiratory: Negative for shortness of breath, cough, wheezing, and pleuritic chest pain, Abdomen/GI: Negative for abdominal pain, nausea, vomiting, diarrhea, and constipation, Back: Negative for injury and pain, : Negative for injury, bleeding, discharge, and swelling, MS/Extremity: Negative for injury and deformity, Skin: Negative for injury, rash, and discoloration, Neuro: Negative for headache, weakness, numbness, tingling, and seizure, Psych: Negative for depression, anxiety, suicide ideation, homicidal ideation, and hallucinations, Allergy/Immunology: Negative for hives, rash, and allergies, Endocrine: Negative for neck swelling, polydipsia, polyuria, polyphagia, and marked weight changes, Hematologic/Lymphatic: Negative for swollen nodes, abnormal bleeding, and unusual bruising. Exam: 03:32 Constitutional: This is a well developed, well nourished patient who is awake, alert, mh7 and in no acute distress. Head/Face: Normocephalic, atraumatic. Eyes: Pupils equal round and reactive to light, extra-ocular motions intact. Lids and lashes normal. Conjunctiva and sclera are non-icteric and not injected. Cornea within normal limits. Periorbital areas with no swelling, redness, or edema. 03:32 Neck: Trachea midline, no thyromegaly or masses palpated, and no cervical lymphadenopathy. Supple, full range of motion without nuchal rigidity, or vertebral point tenderness. No Meningismus. Chest/axilla: Normal chest wall appearance and motion. Nontender with no deformity. No lesions are appreciated. Cardiovascular: Regular rate and rhythm with a normal S1 and S2. No gallops, murmurs, or rubs. Normal PMI, no JVD. No pulse deficits. Respiratory: Lungs have equal breath sounds bilaterally, clear to auscultation and percussion. No rales, rhonchi or wheezes noted. No increased work of breathing, no retractions or nasal flaring. Abdomen/GI: Soft, non-tender, with normal bowel sounds. No distension or tympany. No guarding or rebound. No evidence of tenderness throughout. Back: No spinal tenderness. No costovertebral tenderness. Full range of motion. Skin: Warm, dry with normal turgor. Normal color with no rashes, no lesions, and no evidence of cellulitis. MS/ Extremity: Pulses equal, no cyanosis. Neurovascular intact. Full, normal range of motion. 03:32 ENT: External ear(s): are unremarkable, Ear canal(s): are normal, clear, TM's: are normal, Examination of the other ear shows no obvious abnormality, Nose: is normal, Mouth: is normal, Posterior pharynx: is normal, Dental exam: normal, Voice: is normal, Breath odor: is normal. 03:38 Psych: Behavior/mood is anxious, angry, Affect is animated, Oriented to person, place, [facility] time, Patient having thoughts of suicide. Denies suicidal plan. states he will hurt himself if nothing is found in ear Judgement / Insight is impaired. Memory is normal. 04:39 Psych: Delusions/hallucinations are present and described as insect in his ear. [facility] Vital Signs: 00:09 BP 113 / 73; Pulse 81; Resp 16 S; Temp 98.2(O); Pulse Ox 97% on R/A; Weight 72.57 kg bb (R); Height 5 ft. 8 in. (172.72 cm) (R); Pain 10/10; 04:09 BP 106 / 63; Pulse 73; Resp 12; Pulse Ox 97% ; sf 04:30 BP 102 / 74; Pulse 73; Resp 14; Pulse Ox 99% ; sf 05:00 BP 106 / 71; Pulse 70; Resp 14; Pulse Ox 97% ; sf 07:39 BP 110 / 74; Pulse 71; Resp 14; Pulse Ox 97% on R/A; bw 15:45 BP 112 / 78; Pulse 74; Resp 18; Pulse Ox 98% on R/A; bw 00:09 Body Mass Index 24.33 (72.57 kg, 172.72 cm) MDM: 07:04 Transition of care: After a detail discussion of the patient's case, care is [facility] transferred to Chuy Broderick MD. 07:08 Patient medically screened. rn 07:11 ED course: Signed out to me by Dr. Velasco, reports gave him francia earlier for rn agitation, plan was to wait until he wakes up and reevaluate, possibly get [facility] involved if needed. . 09:37 ED course: pt still sedated, not alert enough to hold conversation, will cont to obs rn and reeval.. 13:09 ED course: Finally finally more alert, reports "fed up", and "will do whatever it rn takes" since no one seems to believe him about his ear. Will not confirm or deny outright that he is having suicidal thoughts. . 13:12 ED course: Paging [facility] for further evaluation and recommendation. . rn 15:05 Differential diagnosis: otitis externa, foreign body, acute otalgia. Data reviewed: rn vital signs, nurses notes, lab test result(s), EKG, and as a result, I will discharge patient. Counseling: I had a detailed discussion with the patient and/or guardian regarding: the historical points, exam findings, and any diagnostic results supporting the discharge/admit diagnosis, lab results, the need for outpatient follow up, to return to the emergency department if symptoms worsen or persist or if there are any questions or concerns that arise at home. Response to treatment: the patient's symptoms have mildly improved after treatment, and as a result, I will discharge patient. Special discussion: I discussed with the patient/guardian in detail that at this point there is no indication for admission to the hospital. It is understood, however, that if the symptoms persist or worsen the patient needs to return immediately for re-evaluation. ED course: Pt evaluated by Latosha Kaufman, he denied suicidal ideations to [facility], and they recommend outpatient services. Will dc home given patient also does not admit suicidal thoughts to me outright. . 12/26 03:38 Order name: Acetaminophen [facility] 12/26 03:38 Order name: Basic Metabolic Panel [facility] 12/26 03:38 Order name: CBC with Diff [facility] 12/26 03:38 Order name: ETOH Level [facility] 12/26 03:38 Order name: Hepatic Function [facility] 12/26 03:38 Order name: PT-INR [facility] 12/26 03:38 Order name: Ptt, Activated [facility] 12/26 03:38 Order name: Salicylate; Complete Time: 05:55 [facility] 12/26 03:38 Order name: Urine Drug Screen; Complete Time: 06:51 [facility] 12/26 03:38 Order name: Acetaminophen Level; Complete Time: 05:55 EDND 12/26 03:39 Order name: Basic Metabolic Panel; Complete Time: 05:55 [facility] 12/26 03:39 Order name: CBC with Automated Diff; Complete Time: 05:07 [facility] 12/26 03:39 Order name: Alcohol Serum/Plasma; Complete Time: 05:55 [facility] 12/26 03:39 Order name: Liver (Hepatic) Function; Complete Time: 05:55 [facility] 12/26 03:38 Order name: EKG; Complete Time: 03:39 [facility] 12/26 03:38 Order name: EKG - Nurse/Tech; Complete Time: 05:28 [facility] 12/26 03:38 Order name: IV Saline Lock; Complete Time: 04:14 [facility] 12/26 03:38 Order name: Labs collected and sent; Complete Time: 04:14 [facility] 12/26 03:38 Order name: Urine Dipstick-Ancillary (obtain specimen); Complete Time: 05:28 [facility] 12/26 03:39 Order name: Protime (+INR); Complete Time: 05:07 [facility] 12/26 03:39 Order name: PTT, Activated Partial Thromb; Complete Time: 05:07 [facility] 12/26 05:37 Order name: Urine Dipstick--Ancillary (enter results); Complete Time: 06:51 [facility] 12/26 07:34 Order name: SARS-COV-2 RT PCR; Complete Time: 09:37 ED[facility] 12/26 08:06 Order name: Diet Finger Food; Complete Time: 08:07 mt Administered Medications: 03:51 Drug: Geodon 10 mg Route: IM; Site: Ventrogluteal RIGHT; sf 04:00 Follow up: Response: No adverse reaction; Marked relief of symptoms; RASS: Alert and sf Calm (0) Disposition: 12/26/20 15:07 Discharged to Home. Impression: Anxiety disorder, unspecified, Person with feared health complaint in whom no diagnosis is made. - Condition is Stable. - Discharge Instructions: Generalized Anxiety Disorder. - Medication Reconciliation Form, Thank You Letter, Antibiotic Education, Prescription Opioid Use form. - Follow up: Private Physician; When: As needed; Reason: Recheck today's complaints, Re-evaluation by your physician. - Problem is new. - Symptoms have improved. Signatures: Dispatcher [employer] [facility] Josseline Batista RN RN bb Nieto, Roman, MD MD rn Holmes, Maurice, MD MD [facility] Matteo Soni RN RN sf Leana Sun RN RN Corrections: (The following items were deleted from the chart) 03:34 03:31 Severity of symptoms: [place] [id number] 06:29 03:44 CORONAVIRUS+MR.LAB.BRZ ordered. EDND EDMS 15:46 15:07 12/26/2020 15:07 Discharged to Home. Impression: Anxiety disorder, unspecified; bw Person with feared health complaint in whom no diagnosis is made. Condition is Stable. Forms are Medication Reconciliation Form, Thank You Letter, Antibiotic Education, Prescription Opioid Use. Follow up: Private Physician; When: As needed; Reason: Recheck today's complaints, Re-evaluation by your physician. Problem is new. Symptoms have improved. rn
--- NOTE | 2020-12-26 15:08 | ER ---
Nurse's Notes [facility] Name: Bro Yung Age: 55 yrs Sex: Male : 1965 Arrival Date: 12/26/2020 Time: 00:03 Bed 17 Private MD: Diagnosis: Anxiety disorder, unspecified;Person with feared health complaint in whom no diagnosis is made Presentation: 12/26 00:09 Chief complaint: Patient states: he has been feeling like there is something in his bb right ear for a year he has seen 4 doctors and they all tell them there is nothing in there. Coronavirus screen: At this time, the client does not indicate any symptoms associated with coronavirus-19. Ebola Screen: No symptoms or risks identified at this time. Initial Sepsis Screen: Does the patient meet any 2 criteria? No. Patient's initial sepsis screen is negative. Does the patient have a suspected source of infection? No. Patient's initial sepsis screen is negative. Risk Assessment: Do you want to hurt yourself or someone else? Patient reports desire/thoughts of hurting themselves or someone else. Provider notified. Other: pt states he is going to "take himself out" if nothing can be done about his ear. Onset of symptoms is unknown. 00:09 Method Of Arrival: Ambulatory bb 00:09 Acuity: PATRICIO 2 bb Triage Assessment: 00:13 General: Appears uncomfortable, Behavior is agitated, anxious. Pain: Complains of pain bb in right ear Pain currently is 10 out of 10 on a pain scale. EENT: Reports pain in right ear. Neuro: Level of Consciousness is awake, alert, obeys commands, Oriented to person, place. Cardiovascular: No deficits noted. Respiratory: Respiratory effort is even, unlabored. GI: No deficits noted. Derm: Skin is pink, warm \\T\\ dry. Musculoskeletal: Circulation, motion, and sensation intact. Historical: - Allergies: 00:13 No Known Allergies; bb - Home Meds: 00:13 None [Active]; bb - PMHx: 00:13 Anxiety; Bipolar disorder; CHF; COPD; Depression; bb - PSHx: 00:13 Tonsillectomy; nose surgery; ankle surgery; bb - Immunization history:: Adult Immunizations up to date. - Social history:: Smoking status: Patient reports the use of cigarette tobacco products, smokes one pack cigarettes per day. Patient uses street drugs, marijuana, Methamphetamine (Meth) Patient/guardian denies using alcohol. Screenin:30 Abuse screen: Denies threats or abuse. Denies injuries from another. Nutritional sf screening: No deficits noted. Tuberculosis screening: No symptoms or risk factors identified. Never had TB. Possible symptoms: None Risk factors: None. Fall Risk None identified. No fall in past 12 months (0 pts). No secondary diagnosis (0 pts). No IV (0 pts). Ambulatory Aid- None/Bed Rest/Nurse Assist (0 pts). Gait- Normal/Bed Rest/Wheelchair (0 pts) Mental Status- Oriented to own ability (0 pts). Total [place] Fall Scale indicates No Risk (0-24 pts). Assessment: 03:30 General: Appears in no apparent distress. Behavior is agitated, combative. Pain: Denies sf pain. Neuro: No deficits noted. Level of Consciousness is awake, alert, Oriented to person, place, time, situation. Cardiovascular: No deficits noted. Patient's skin is warm and dry. Respiratory: No deficits noted. Airway is patent Respiratory effort is even, unlabored, Respiratory pattern is regular, symmetrical. GI: No signs and/or symptoms were reported involving the gastrointestinal system. : No signs and/or symptoms were reported regarding the genitourinary system. EENT: Ear canal clear on right ear Reports "something in my ear". 03:38 Reassessment: Patient cussing and yelling at staff stating "there is something in my sf ear, this is a fucking conspiracy". Patient refusing to calm down and stop cussing. JESSICA Manjarrez charge notified and called rylie medina. Security to bedside. 04:28 Reassessment: Given water per request. sf 05:00 Reassessment: Patient appears in no apparent distress at this time. Patient and/or sf family updated on plan of care and expected duration. Pain level reassessed. Patient alert and yelling for the nurse, patient calmed with reassurance, not able to given urine sample at this time. 05:20 Reassessment: Patient appears in no apparent distress at this time. Patient and/or sf family updated on plan of care and expected duration. Pain level reassessed. Patient is alert, oriented x 3, equal unlabored respirations, skin warm/dry/pink. Patient removed monitors, refuses further vital signs. 06:17 Reassessment: Patient appears in no apparent distress at this time. No changes from previously documented assessment. Patient and/or family updated on plan of care and expected duration. Pain level reassessed. Patient is alert, oriented x 3, equal unlabored respirations, skin warm/dry/pink. Sleeping, arousable to voice, given pillow. 07:15 Reassessment: Patient appears in no apparent distress at this time. Patient and/or bw family updated on plan of care and expected duration. Pain level reassessed. Patient is alert, oriented x 3, equal unlabored respirations, skin warm/dry/pink. Received report from Caesar LOPEZ. Pt sleeping in ED stretcher at this time. All VSS, no s/s of distress. Room cleared for suicide precautions. pt 1:1 wit hq 15 min checks. Attempt to have patient answer [place]-suicide severity scale and screen. Pt still sedated from Geodon administration on third shift. Unable to answer questions at this time. Will reattempt when pt is awake. 08:58 Reassessment: No changes from previously documented assessment. 09:58 Reassessment: pt continues to sleep. Drowsy when attempted to wake up. still unable to bw answer questions at this time. Will continue to monitor. 11:16 Reassessment: No changes from previously documented assessment. 12:27 Reassessment: Patient appears in no apparent distress at this time. No changes from previously documented assessment. Patient and/or family updated on plan of care and expected duration. Pain level reassessed. 14:30 Reassessment: Patient appears in no apparent distress at this time. No changes from previously documented assessment. Patient and/or family updated on plan of care and expected duration. Pain level reassessed. Patient is alert, oriented x 3, equal unlabored respirations, skin warm/dry/pink. 15:44 Reassessment: [facility] decision to discharge. Pt dressed and awaiting cab ride home. Vital Signs: 00:09 BP 113 / 73; Pulse 81; Resp 16 S; Temp 98.2(O); Pulse Ox 97% on R/A; Weight 72.57 kg bb (R); Height 5 ft. 8 in. (172.72 cm) (R); Pain 10/10; 04:09 BP 106 / 63; Pulse 73; Resp 12; Pulse Ox 97% ; sf 04:30 BP 102 / 74; Pulse 73; Resp 14; Pulse Ox 99% ; sf 05:00 BP 106 / 71; Pulse 70; Resp 14; Pulse Ox 97% ; sf 07:39 BP 110 / 74; Pulse 71; Resp 14; Pulse Ox 97% on R/A; bw 15:45 BP 112 / 78; Pulse 74; Resp 18; Pulse Ox 98% on R/A; bw 00:09 Body Mass Index 24.33 (72.57 kg, 172.72 cm) bb ED Course: 00:03 Patient arrived in ED. cf2 00:12 Triage completed. bb 00:13 Arm band placed on Patient placed in waiting room, Patient notified of wait time. bb 03:12 Donavon Velasco MD is Attending Physician. [facility] 03:16 Matteo Soni, JESSICA is Primary Nurse. sf 03:30 Patient has correct armband on for positive identification. Bed in low position. Call sf light in reach. Door closed. Noise minimized. Visitors limited. Lights dimmed. Verbal reassurance given. 04:05 Pulse ox on. NIBP on. sf 04:05 Initial lab(s) drawn, by md, sent to lab. Inserted saline lock: 20 gauge in right sf forearm, using aseptic technique. Blood collected. 04:14 Ptt, Activated Sent. sf 04:14 PT-INR Sent. sf 04:14 Hepatic Function Sent. sf 04:14 ETOH Level Sent. sf 04:14 CBC with Diff Sent. sf 04:14 Basic Metabolic Panel Sent. sf 04:14 Acetaminophen Sent. sf 04:21 EKG done, by ED staff, reviewed by Donavon Velasco MD. sf 04:25 COVID swab sent to lab. sf 05:28 Urine collected: clean catch specimen, clear. sf 07:08 Attending Physician role handed off by Donavon Velasco MD rn 07:08 Chuy Broderick MD is Attending Physician. rn 07:14 Report given to JESSICA Dueñas. sf 07:39 No provider procedures requiring assistance completed. bw 09:58 Primary Nurse role handed off by Matteo Soni, JESSICA bw 09:58 Sun, Leana, RN is Primary Nurse. bw 13:08 called the [facility] Crisis Line spoke with Sandra/ she will page the screener on eb call. 14:35 Diet tray given. patient awake and eating. md 15:44 IV discontinued, intact, No redness/swelling at site. Pressure dressing applied. bw Administered Medications: 03:51 Drug: Geodon 10 mg Route: IM; Site: Ventrogluteal RIGHT; sf 04:00 Follow up: Response: No adverse reaction; Marked relief of symptoms; RASS: Alert and sf Calm (0) Outcome: 15:07 Discharge ordered by MD. rn 15:45 Discharged to home 15:45 Condition: stable 15:45 Discharge instructions given to patient. 15:46 Patient left the ED. Signatures: Josseline Batista RN RN Chuy Broderick MD MD rn Thompson, Maryjane md Nedra Galarza Yanet Sellers 2 Donavon Velasco MD MD 7 Matteo Soni RN RN Sun, JESSICA Dueñas RN Corrections: (The following items were deleted from the chart) 00:15 00:09 Acuity: PATRICIO 4 bb 12:28 12:27 Reassessment: Patient appears in no apparent distress at this time. No changes bw from previously documented assessment. Patient and/or family updated on plan of care and expected duration. Pain level reassessed. Patient is alert, oriented x 3, equal unlabored respirations, skin warm/dry/pink.
[2020-12-26 15:51] VITALS: TEMP 98.2
[2020-12-26 15:57] VITALS: BP 112/78; O2SAT 98
== END 2020-12-26 15:46 | disposition home or self-care (01) ==
LOC: ER 23:59
DX: Z71.1 Person with feared health complaint in whom no diagnosis is made (principal); F41.9 Anxiety disorder, unspecified; F17.210 Nicotine dependence, cigarettes, uncomplicated
CPT/HCPCS: 36415; 80048; 80076; 80307; 80320; 80329; 81003; 85025; 85610; 85730; 93005; 96372; 99285; J3486; U0003

== ENCOUNTER 2021-03-21 10:07 | Emergency (ER) | payer SELFPAY ==
--- OUTSIDE RECORDS SUMMARY | 2021-03-21 10:12 | XMS REPORT | Continuity of Care Document ---
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 03:40:001.15[facility] XfqxgxmDDEOBGHRXAIX5298-98-96 03:40:009.0[facility] ApcqxcpDYGBXXVFKF6978-35-46 03:40:0010.5[facility] [place]aden XZTMSNQDLU1846-88-08 03:40:000.5[facility] DmwplcvASLFEIPYIM9585-63-11 03:40:001.1 [facility] DjnnruxNKGFXANJLF5621-37-98 03:40:004.0[facility]annHEMATOLOGY 2016-11-10 03:40:000.8[facility] EvjeqhlLATMVZOSQB1564-46-50 03:40:000.1[facility] RdmonsdJQCYPCXHOG8304-52-57 03:40:000.2[facility] VrsuhtxABNLPMMFXE5341-83-46 03:40:0067.1[facility] KxusyhcCKVVZPZVQR8125-22-16 03:40:0026.0[facility] [place] NBPPPWBTHN3397-43-53 03:40:005.3[facility] GyldamgCVGGQHYQUV8453-33-20 03:40:00 12.8[facility] FfcdktxKHKKQYAIZL6501-58-52 03:40:88783Dyhifuxl HermannHEMATOLOGY 2016-11-10 03:40:006.1[facility] JshlutiTSIBVKGEDL4681-50-70 03:40:0015.9[facility] WvuavscGFIULNISNI8176-15-59 03:40:0045.4[facility] SjzzsegVBCKQGLBLR9912-85-47 03:40:0095.1[facility] UyaesbzDZUNKZDABP4200-15-48 03:40:00 Test Item Value Reference Range Interpretation Comments MCH (test code = MCH) 33.3 pg 27.0-31.0 [facility] ExrdkveRSTPXVRJUZ9680-72-17 03:40:0035.0[facility]ann[facility]OLOGY 2016-11-10 03:40:0015.6[facility] NnuqpibLECKAQRQXN0274-09-62 03:40:004.77[facility] QuxepmsSTJSTBGSTV9012-28-48 03:40:003.7[facility] MjekqjnMRIZKREGZD8667-21-12 03:40:00 Test Item Value Reference Range Interpretation Comments Max Amplitude Rapid (test code = Max 42 mm 52-71 Amplitude Rapid) [facility] EwjxkacPWNIBRKBCA7854-97-12 03:40:003.4[facility]ann[facility]OLOGY 2016-11-10 03:40:00 Test Item Value Reference Range Interpretation Comments Split Point Rapid (test code = Split 0.7 min Point Rapid) [facility] DvsyewqKGVRCXTTRV4950-75-13 03:40:00 Test Item Value Reference Range Interpretation Comments R-time Rapid (test code = R-time 1.1 min 0.4-0.7 Rapid) [facility]132[facility]-94 03:40:00 Test Item Value Reference Range Interpretation Comments ACT (TEG) Rapid (test code = ACT (TEG) 152 s 86-118 Rapid) [facility]tb[facility]cuQIDJDGTIUX6323-84-65 03:40:00 Test Item Value Reference Range Interpretation Comments K-time Rapid (test code = K-time 4.1 min 0.6-2.3 Rapid) [facility]villeSnqgnzqGLFCLZJIFM6395-39-09 03:40:00 Test Item Value Reference Range Interpretation Comments Angle Rapid (test code = Angle 48 degrees 64-80 Rapid) [facility]oVWEWSLTQJW0899-86-94 03:40:000.148[facility] 2016-11-10 03:40:95603Mcesdcba [facility] [id number] 03:38:00 Negative (11/09/16 9:38 PM)[facility]
[2021-03-21] MEDS ORDERED: haloperidoL 5 MG TAB PO ONE (11:30)
[2021-03-21] MEDS ORDERED: BENZTROPINE 1 MG TAB PO ONE (11:30)
[2021-03-21] MEDS ORDERED: LORAZEPAM 1 MG TABLET ONE (11:36)
--- NOTE | 2021-03-21 11:39 | EDPHYS ---
Physician Documentation [facility] Name: Bro Yung Age: 55 yrs Sex: Male : 1965 Arrival Date: 03/21/2021 Time: 10:11 Bed 18 Private MD: ED Physician Lennox Banda HPI: 03/21 11:06 This 55 yrs old Male presents to ER via EMS with complaints of Anxiety. pm1 11:06 Onset: The symptoms/episode began/occurred today. Associated signs and symptoms: The pm1 patient has no apparent associated signs or symptoms, Pertinent negatives: abdominal pain, chest pain, fever, shortness of breath. Modifying factors: the patient symptoms are aggravated by Patient was picked up today by officers for outstanding warrants. Patient did not take his medications this AM. He is presenting here to the ER for medications to help him get through his nursing home time. Patient will see the jawbone puller tomorrow and will be levied fines and released tomorrow according to officer in the room. The patient has not recently seen a physician. Historical: - Allergies: 10:15 No Known Allergies; ca1 - PMHx: 10:15 Anxiety; Bipolar disorder; CHF; COPD; Depression; ca1 - PSHx: 10:15 Tonsillectomy; nose surgery; ankle surgery; ca1 - Immunization history:: Adult Immunizations Client reports having NOT received the Covid vaccine. Flu vaccine is not up to date. - Social history:: Smoking status: Patient reports the use of cigarette tobacco products, smokes one pack cigarettes per day. ROS: 11:06 Constitutional: Negative for fever, chills, and weight loss, Eyes: Negative for injury, pm1 pain, redness, and discharge, ENT: Negative for injury, pain, and discharge, Neck: Negative for injury, pain, and swelling, Cardiovascular: Negative for chest pain, palpitations, and edema, Respiratory: Negative for shortness of breath, cough, wheezing, and pleuritic chest pain, Abdomen/GI: Negative for abdominal pain, nausea, vomiting, diarrhea, and constipation. 11:06 MS/Extremity: Negative for injury and deformity, Skin: Negative for injury, rash, and discoloration, Neuro: Negative for headache, weakness, numbness, tingling, and seizure. 11:06 Back: Positive for chronic low back pain the patient treats with oxycontin. 11:06 Psych: Positive for anxiety. Exam: 11:06 Constitutional: This is a well developed, well nourished patient who is awake, alert, pm1 and in no acute distress. Head/Face: Normocephalic, atraumatic. Cardiovascular: Regular rate and rhythm with a normal S1 and S2. No gallops, murmurs, or rubs. Normal PMI, no JVD. No pulse deficits. Respiratory: Lungs have equal breath sounds bilaterally, clear to auscultation and percussion. No rales, rhonchi or wheezes noted. No increased work of breathing, no retractions or nasal flaring. 11:06 Back: No spinal tenderness. No costovertebral tenderness. Full range of motion. Skin: Warm, dry with normal turgor. Normal color with no rashes, no lesions, and no evidence of cellulitis. MS/ Extremity: Pulses equal, no cyanosis. Neurovascular intact. Full, normal range of motion. 11:06 Eyes: Exam is negative for acute changes, Extraocular movements: no acute changes, Conjunctiva: normal, no injection, Sclera: no acute changes, icterus, is not appreciated. 11:06 ENT: Mouth: Lips: normal, Oral mucosa: normal, pink and intact, moist. 11:06 Abdomen/GI: Inspection: abdomen appears normal, Palpation: abdomen is soft and non-tender, in all quadrants. 11:06 Neuro: Orientation: is normal, Mentation: is normal, Motor: is normal, moves all fours. 11:06 Psych: Behavior/mood is anxious, Affect is animated, Oriented to person, place, time, Patient has no thoughts/intents to harm self or others. Vital Signs: 10:12 BP 105 / 67; Pulse 67; Resp 18 S; Temp 97.1(TE); Pulse Ox 97% on R/A; Weight 63.5 kg ca1 (R); Height 5 ft. 8 in. (172.72 cm) (R); Pain 8/10; 11:35 BP 113 / 78; Pulse 65; Resp 18 S; Pulse Ox 100% on R/A; ca1 10:12 Body Mass Index 21.29 (63.50 kg, 172.72 cm) ca1 MDM: 10:20 Patient medically screened. pm1 11:03 Data reviewed: vital signs. Data interpreted: Pulse oximetry: on room air is 97 %. pm1 Interpretation: normal. Counseling: I had a detailed discussion with the patient and/or guardian regarding: the historical points, exam findings, and any diagnostic results supporting the discharge/admit diagnosis, the need for outpatient follow up, a family practitioner, a psychiatrist, to return to the emergency department if symptoms worsen or persist or if there are any questions or concerns that arise at home. Administered Medications: 10:38 CANCELLED (Physician Discretion): HALdol (as decanoate) 10 mg IM once pm1 11:17 Drug: Ativan (LORazepam) 1 mg Route: PO; ca1 12:01 Follow up: Response: No adverse reaction; Marked relief of symptoms ca1 11:39 Drug: Benztropine 1 mg Route: PO; ca1 12:01 Follow up: Response: No adverse reaction; Marked relief of symptoms ca1 11:39 Drug: Haldol (haloperidol) 5 mg Route: PO; ca1 12:02 Follow up: Response: No adverse reaction; Marked relief of symptoms ca1 Disposition: 03/21/21 11:38 Discharged to Home. Impression: Acute stress reaction, Anxiety disorder, unspecified. - Condition is Stable. - Discharge Instructions: Stress and Stress Management, Generalized Anxiety Disorder. - Medication Reconciliation Form, Thank You Letter, Antibiotic Education, Prescription Opioid Use form. - Follow up: Emergency Department; When: As needed; Reason: Worsening of condition. Follow up: Private Physician; When: 2 - 3 days; Reason: Recheck today's complaints, Continuance of care, Re-evaluation by your physician. - Problem is new. - Symptoms have improved. Signatures: Cr Ireland NP INFORMATION ASSURANCE ENGINEER pm1 Марина Paz RN RN ca1 Corrections: (The following items were deleted from the chart) 10:38 10:34 HALdol (as decanoate) 10 mg IM once ordered. pm1 pm1 12:02 11:38 03/21/2021 11:38 Discharged to Home. Impression: Acute stress reactionAnxiety ca1 disorder, unspecified. Condition is Stable. Forms are Medication Reconciliation Form, Thank You Letter, Antibiotic Education, Prescription Opioid Use. Follow up: Emergency Department; When: As needed; Reason: Worsening of condition. Follow up: Private Physician; When: 2 - 3 days; Reason: Recheck today's complaints, Continuance of care, Re-evaluation by your physician. Problem is new. Symptoms have improved. pm1
--- NOTE | 2021-03-21 11:39 | ER ---
Nurse's Notes [facility] Name: Bro Yung Age: 55 yrs Sex: Male : 1965 Arrival Date: 03/21/2021 Time: 10:11 Bed 18 Private MD: Diagnosis: Anxiety disorder, unspecified;Acute stress reaction Presentation: 03/21 10:12 Chief complaint: EMS states: Picked up for fdc. Reports of severe anxiety without meds ca1 in fdc. Reports taking Cogentin, Haldol, Seroquel, OxyContin and 2 others unable to recall. Reports freaking out. VS stable. Coronavirus screen: Client denies travel out of the [place] in the last 14 days. At this time, the client does not indicate any symptoms associated with coronavirus-19. Ebola Screen: Patient negative for fever greater than or equal to 101.5 degrees Fahrenheit, and additional compatible Ebola Virus Disease symptoms Patient denies exposure to infectious person. Patient denies travel to an Ebola-affected area in the 21 days before illness onset. No symptoms or risks identified at this time. Initial Sepsis Screen: Does the patient meet any 2 criteria? No. Patient's initial sepsis screen is negative. Does the patient have a suspected source of infection? No. Patient's initial sepsis screen is negative. Risk Assessment: Do you want to hurt yourself or someone else? Patient reports no desire to harm self or others. Onset of symptoms was March 21, 2021. 10:12 Method Of Arrival: EMS: [facility] ca1 10:12 Acuity: PATRICIO 3 ca1 Triage Assessment: 10:15 General: Appears in no apparent distress. comfortable, unkempt, Behavior is calm, ca1 cooperative, appropriate for age. Pain: Complains of pain in low back area Pain currently is 8 out of 10 on a pain scale. Is chronic. EENT: No signs and/or symptoms were reported regarding the EENT system. Neuro: Level of Consciousness is awake, alert, obeys commands, Oriented to person, place, time, situation. Cardiovascular: Heart tones S1 S2 present Capillary refill < 3 seconds Patient's skin is warm and dry. Respiratory: Airway is patent Respiratory effort is even, unlabored, Respiratory pattern is regular, symmetrical, Breath sounds are clear bilaterally. GI: Abdomen is flat, non-distended, Bowel sounds present X 4 quads. Abd is soft and non tender X 4 quads. : No signs and/or symptoms were reported regarding the genitourinary system. Derm: Skin is intact, is healthy with good turgor, Skin is pink, warm \T\ dry. Musculoskeletal: Circulation, motion, and sensation intact. Capillary refill < 3 seconds. Historical: - Allergies: 10:15 No Known Allergies; ca1 - PMHx: 10:15 Anxiety; Bipolar disorder; CHF; COPD; Depression; ca1 - PSHx: 10:15 Tonsillectomy; nose surgery; ankle surgery; ca1 - Immunization history:: Adult Immunizations Client reports having NOT received the Covid vaccine. Flu vaccine is not up to date. - Social history:: Smoking status: Patient reports the use of cigarette tobacco products, smokes one pack cigarettes per day. Screenin:16 Abuse screen: Denies threats or abuse. Denies injuries from another. Nutritional ca1 screening: No deficits noted. Tuberculosis screening: No symptoms or risk factors identified. Fall Risk None identified. Assessment: 10:16 Reassessment: see triage notes. ca1 11:17 Reassessment: Requested meds from pharmacy. ca1 11:35 Reassessment: Patient appears in no apparent distress at this time. Patient and/or ca1 family updated on plan of care and expected duration. Pain level reassessed. Patient is alert, oriented x 3, equal unlabored respirations, skin warm/dry/pink. 11:40 Reassessment: Meds given see MAR. Kept for observation 20 mins then to be discharged. ca1 12:01 Reassessment: Patient appears in no apparent distress at this time. Patient is alert, ca1 oriented x 3, equal unlabored respirations, skin warm/dry/pink. General: Appears in no apparent distress. comfortable, Behavior is calm. Vital Signs: 10:12 BP 105 / 67; Pulse 67; Resp 18 S; Temp 97.1(TE); Pulse Ox 97% on R/A; Weight 63.5 kg ca1 (R); Height 5 ft. 8 in. (172.72 cm) (R); Pain 8/10; 11:35 BP 113 / 78; Pulse 65; Resp 18 S; Pulse Ox 100% on R/A; ca1 10:12 Body Mass Index 21.29 (63.50 kg, 172.72 cm) ca1 ED Course: 10:11 Patient arrived in ED. ca1 10:14 Triage completed. ca1 10:15 Arm band placed on right wrist. ca1 10:16 Patient has correct armband on for positive identification. Bed in low position. Call ca1 light in reach. Side rails up X 1. [employer] officers at bedside. Pulse ox on. NIBP on. Door closed. Noise minimized. Lights dimmed. 10:20 Cr Ireland NP is PHCP. pm1 10:20 Lennox Banda MD is Attending Physician. pm1 11:11 Марина Paz, JESSICA is Primary Nurse. ca1 12:02 No provider procedures requiring assistance completed. Patient did not have IV access ca1 during this emergency room visit. Administered Medications: 10:38 CANCELLED (Physician Discretion): HALdol (as decanoate) 10 mg IM once pm1 11:17 Drug: Ativan (LORazepam) 1 mg Route: PO; ca1 12:01 Follow up: Response: No adverse reaction; Marked relief of symptoms ca1 11:39 Drug: Benztropine 1 mg Route: PO; ca1 12:01 Follow up: Response: No adverse reaction; Marked relief of symptoms ca1 11:39 Drug: Haldol (haloperidol) 5 mg Route: PO; ca1 12:02 Follow up: Response: No adverse reaction; Marked relief of symptoms ca1 Outcome: 11:38 Discharge ordered by . pm1 12:02 Discharged to Law Enforcement ca1 12:02 Condition: stable 12:02 Condition: improved 12:02 Discharge instructions given to patient, police, Instructed on discharge instructions, follow up and referral plans. Demonstrated understanding of instructions, follow-up care. 12:02 Patient left the ED. ca1 Signatures: Cr Ireland NP CARPENTERS SUPERVISOR pm1 Марина Paz, RN RN ca1
[2021-03-21 12:09] VITALS: TEMP 97.1
[2021-03-21 12:11] VITALS: BP 113/78; O2SAT 100
== END 2021-03-21 12:02 | disposition home or self-care (01) ==
LOC: ER 10:07
DX: F43.0 Acute stress reaction (principal); F41.9 Anxiety disorder, unspecified; F31.9 Bipolar disorder, unspecified; I50.9 Heart failure, unspecified; J44.9 Chronic obstructive pulmonary disease, unspecified; F17.210 Nicotine dependence, cigarettes, uncomplicated
CPT/HCPCS: 99283

== ENCOUNTER 2021-10-16 03:42 | Emergency (ER) | payer OTHER ==
--- OUTSIDE RECORDS SUMMARY | 2021-10-16 03:45 | XMS REPORT | Continuity of Care Document ---
:1965 Author Organization [facility] t Address [address] [place] [address] Care Team Providers Name Role Phone UNKNOWN Primary Care Physician Unavailable ROLAN Attending Clinician Unavailable Rolan KRAMER Attending Clinician Doctor Unassigned, Name Attending Clinician Unavailable Staci KRAMER Attending Clinician STACI Attending Clinician Unavailable Payers Payer Name Policy Type Policy Number Effective Date Expiration Date [place] erazo [facility] [id number] 2021 00:00:00 PLUS Problems This patient has no known problems. Allergies, Adverse Reactions, Alerts Allergy Allergy Status Severity Reaction(s) Onset Inactive Treating Comm ents Source Name Type Date Date Clinician NO KNOWN Drug Active Univers ALLERGIE Class ity of [facility] [place] Social History Social Habit Start Date Stop Date Quantity Comments Source Exposure to Not sure [facility] SARS-CoV-2 (event) Medica l Branch Sex Assigned At [birth year] [facility] 00:00:00 00:00:00 Medical Branch Smoking Status Start Date Stop Date Source Unknown if ever smoked [facility] Medications Ordered Filled Start Stop Current Ordering Indication Dosage Frequency Signature Comments Components Source Medication Medication Date Date Medication? Clinician (SIG) Name Name neomycin-po 2020-10 Yes [id number] 3[drp] Place 3 Univers lymyxin-hyd 2-28 Drops in ity of rocortisone 00:00: right ear [place] 3.5-10,000- 00 4 (four) Medi mele 1 times Branch mg/mL-unit/ daily. mL-% otic susp ibuprofen 2020-10 Yes [id number] 600mg Take 1 Univers 600 mg 2-28 tablet by ity of tablet 00:00: mouth [place] 00 every 6 Medical (six) Branch hours as needed for Pain (scale 4-6). Vital Signs Vital Name Observation Time Observation Value Comments Source Systolic blood 2021-09-27 08:13:00 112 mm[Hg] Univer sity [facility] Diastolic blood 2021-09-27 08:13:00 72 mm[Hg] [facility] rate 2021-09-27 08:13:00 77 /min [facility] Body temperature 2021-09-27 08:13:00 36.72 [facility] Respiratory rate 2021-09-27 08:13:00 18 /min [facility] Body height 2021-09-27 08:13:00 170.2 cm [facility] Body weight 2021-09-27 08:13:00 68.04 kg [facility] BMI 2021-09-27 08:13:00 23.49 kg/m2 [facility] Oxygen saturation in 2021-09-27 08:13:00 98 /min [facility] Arterial blood by [place] [facility] Pulse oximetry Branch Procedures Procedure Date / Time Performed Performing Clinician [facility] e CONSENT/REFUSAL FOR 2021-09-27 07:58:16 Doctor Unassigned, No Un [facility] DIAGNOSIS AND Name Medical Branch TREATMENT Encounters Start End Encounter Admission Attending Care Care Encounter Source Date/Time Date/Time Type Type Clinicians Facility Department ID 2016-11-[address] [facility] MED [id number] St. 23:30:00 [facility] 2021-09-27 2021-09-27 Emergency X LAWRENCE BRUNO ERT [id number] Univers 02:16[facility]00 [facility]45[facility] 2021-09-27 Emergency LAWRENCE Bruno [id number] Univers 02:16:00 02:45:00 Hao [place] [id number] i ty of [place] 4.2.7.2.686 [facility] [id number] [facility] 084 Branch 2021-09-27 2021-09-27 Orders Doctor PIPO [id number] Univers 00:00:00 00:00:00 Only Unassigned, ISSA 350.1.13.10 ity of [place] [facility] 4.2.7.2.686 [facility] [id number] [facility] 009 Branch 2020-01-05 2020-01-05 [facility] [id number] 12:30:57 23:59:00 Encounter Lyric [place] 350.1.13.10 [facility] 4.2.7.2.686 [place] [id number] 2020-01-05 2020-01-05 [place] [id number] [facility] 12:30:57 23:59:00 Encounter Lyric ELAINE'S 350.1.13.10 ity of [facility] 4.2.7.2.686 [facility] [id number] [place] [id number] Branch 2020-01-05 2020-01-05 Outpatient R STACI [facility] [id number] [facility] 00:00:00 00:00:00 LYRIC perea o f [facility] Results Test Description Test Time Test Comments [...] A/G Ratio) 1.4 ratio N Comprehensive Metabolic [id number] 08:29:05 Test Item Value Reference Range Interpretation [...] National Kidney Foundation, http://nkdep.ni h.gov Comprehensive Metabolic [id number] 08:29:05 Test Item Value Reference Range Interpretation [...] Foundation, http://nkdep.ni h.gov Complete Blood Count without [id number] 08:07:00 Test Item Value Reference Range Interpretation [...] code = IPF) 0 % N RPR [id number] 11:58:31 Test Item Value Reference Range Interpretation [...] = 09-30-2020 N Expiration Dt) Thyroid Stimulating [id number] 07:31:59 Test Item Value Reference Range Interpretation Comments TSH (test code = TSH) 1.000 mIU/mL 0.270-4.200 Lipid [id number] 07:11:41 Test Item Value Reference Range Interpretation Comments Cholesterol Total 176 mg/dL 0-200 RISK OF HE ART (test code = DISEASEPublishe d by Cholesterol Total) [employer] Maria G lyte Optimal Borderl [...]
[2021-10-16] MEDS ORDERED: AMOX/K CLAV 875 MG TAB ONE (04:09)
--- NOTE | 2021-10-16 04:11 | EDPHYS ---
Physician Documentation [facility] Name: Bro Yung Age: 56 yrs Sex: Male : 1965 Arrival Date: 10/16/2021 Time: 03:45 Bed 6 Private MD: ED Physician Donavon Velasco HPI: 10/16 03:55 This 56 yrs old Male presents to ER via Unassigned with complaints of Foreign Body In mh7 Ear. 03:55 The patient presents with a foreign body sensation, presumably from an insect. The mh7 complaints affect the right ear. 03:55 Onset: The symptoms/episode began/occurred 2 year(s) ago. mh7 03:55 Onset: The symptoms/episode began/occurred and became worse yesterday. Modifying mh7 factors: The symptoms are alleviated by nothing, the symptoms are aggravated by nothing. Associated signs and symptoms: Pertinent negatives: cough, fever, lightheadedness, nausea, rhinorrhea, sinus trouble, shortness of breath, sore throat, tinnitus, vertigo, vomiting. Severity of symptoms: At their worst the symptoms were moderate yesterday, in the emergency department the symptoms are unchanged. The patient has experienced similar episodes in the past, multiple times. Patient states that he feels like something is in his ear possibly an insect. He states that he has had similar issues intermittently over the last 2 years. Denies any fever, headache, neck pain, nausea, vomiting, sore throat, hearing loss.. Historical: - Allergies: 04:07 No Known Allergies; as6 - Home Meds: 04:07 None [Active]; as6 - PMHx: 04:07 Anxiety; Bipolar disorder; Depression; as6 - PSHx: 04:07 Tonsillectomy; ankle; nose; eye; as6 - Immunization history:: Adult Immunizations not up to date, Client reports having NOT received the Covid vaccine. - Social history:: Smoking status: unknown. ROS: 03:55 Constitutional: Negative for fever, chills, and weight loss, Eyes: Negative for injury, mh7 pain, redness, and discharge, Neck: Negative for injury, pain, and swelling, Cardiovascular: Negative for chest pain, palpitations, and edema, Respiratory: Negative for shortness of breath, cough, wheezing, and pleuritic chest pain, Abdomen/GI: Negative for abdominal pain, nausea, vomiting, diarrhea, and constipation, Back: Negative for injury and pain, : Negative for injury, bleeding, discharge, and swelling, MS/Extremity: Negative for injury and deformity, Skin: Negative for injury, rash, and discoloration, Neuro: Negative for headache, weakness, numbness, tingling, and seizure, Psych: Negative for depression, anxiety, suicide ideation, homicidal ideation, and hallucinations, Allergy/Immunology: Negative for hives, rash, and allergies, Endocrine: Negative for neck swelling, polydipsia, polyuria, polyphagia, and marked weight changes, Hematologic/Lymphatic: Negative for swollen nodes, abnormal bleeding, and unusual bruising. Exam: 03:55 Constitutional: This is a well developed, well nourished patient who is awake, alert, mh7 and in no acute distress. Head/Face: Normocephalic, atraumatic. Eyes: Pupils equal round and reactive to light, extra-ocular motions intact. Lids and lashes normal. Conjunctiva and sclera are non-icteric and not injected. Cornea within normal limits. Periorbital areas with no swelling, redness, or edema. 03:55 Neck: Trachea midline, no thyromegaly or masses palpated, and no cervical lymphadenopathy. Supple, full range of motion without nuchal rigidity, or vertebral point tenderness. No Meningismus. Chest/axilla: Normal chest wall appearance and motion. Nontender with no deformity. No lesions are appreciated. Cardiovascular: Regular rate and rhythm with a normal S1 and S2. No gallops, murmurs, or rubs. Normal PMI, no JVD. No pulse deficits. Respiratory: Lungs have equal breath sounds bilaterally, clear to auscultation and percussion. No rales, rhonchi or wheezes noted. No increased work of breathing, no retractions or nasal flaring. Abdomen/GI: Soft, non-tender, with normal bowel sounds. No distension or tympany. No guarding or rebound. No evidence of tenderness throughout. Back: No spinal tenderness. No costovertebral tenderness. Full range of motion. Skin: Warm, dry with normal turgor. Normal color with no rashes, no lesions, and no evidence of cellulitis. MS/ Extremity: Pulses equal, no cyanosis. Neurovascular intact. Full, normal range of motion. Neuro: Awake and alert, GCS 15, oriented to person, place, time, and situation. Cranial nerves II-XII grossly intact. Motor strength 5/5 in all extremities. Sensory grossly intact. Cerebellar exam normal. Normal gait. Psych: Awake, alert, with orientation to person, place and time. Behavior, mood, and affect are within normal limits. 03:55 ENT: External ear(s): are unremarkable, Ear canal(s): are normal, clear, TM's: erythema, is not appreciated, hemotympanum, is not appreciated, bilaterally, rupture, on the right, Examination of the other ear shows no obvious abnormality, Nose: is normal, Mouth: is normal, Posterior pharynx: is normal, airway is patent, Voice: is normal. Vital Signs: 04:00 BP 124 / 79; Pulse 79; Resp 18 S; Pulse Ox 97% on R/A; al4 04:04 BP 118 / 76; Pulse 80; Resp 18 S; Temp 97.7(TE); Pulse Ox 99% on R/A; Weight 68.04 kg as6 (R); Height 5 ft. 8 in. (172.72 cm) (R); Pain 8/10; 04:04 Body Mass Index 22.81 (68.04 kg, 172.72 cm) as6 MDM: 04:08 Differential diagnosis: otitis media, otitis externa, ruptured TM, foreign body, acute mh7 otalgia, cerumen impaction, barotrauma , serotympanum. Data reviewed: vital signs, nurses notes, EMS record, old medical records. Data interpreted: Pulse oximetry: on room air is 99 %. Interpretation: normal. Counseling: I had a detailed discussion with the patient and/or guardian regarding: the historical points, exam findings, and any diagnostic results supporting the discharge/admit diagnosis, the need for outpatient follow up, an ENT specialist, to return to the emergency department if symptoms worsen or persist or if there are any questions or concerns that arise at home. 04:10 Patient medically screened. 7 Administered Medications: 04:09 Drug: Augmentin (Amoxicillin-Clavulanate) 875 mg Route: PO; al4 04:25 Follow up: Response: No adverse reaction al4 Disposition Summary: 10/16/21 04:10 Discharge [facility]dered [facility] Problem: an acute exacerbation [facility] Symptoms: have improved [facility] Condition: Stable [facility] Diagnosis - Other perforations of tympanic membrane - Right [facility] Followup: [facility] - With: Private Physician - When: 1 - 2 days - Reason: Worsening of condition, Recheck today's complaints, Continuance of care, Re-evaluation by your physician Followup: [facility] - With: Nisha Howard MD - When: 2 - 3 days - Reason: Worsening of condition, Recheck today's complaints Discharge Instructions: - Discharge Summary Sheet city [facility] - Eardrum Rupture, Dhmh-nu-Tank [facility] Forms: - Medication Reconciliation Form city [facility] - Thank You Letter city [facility] - Antibiotic Education [facility] - Prescription Opioid Use [facility] Prescriptions: - Augmentin 875-125 mg Oral Tablet - take 1 tablet by ORAL route every 12 hours for 10 days; 20 tablet; Refills: 0, 7 Product Selection Permitted Signatures: Donavon Velasco MD MD [facility] Mulugeta Ramirez RN RN as6 Eddy Olvera Corrections: (The following items were deleted from the chart) 04:08 04:07 PMHx: CHF; as6 as6 04:08 04:07 PMHx: COPD; as6 as6
--- NOTE | 2021-10-16 04:11 | ER ---
Nurse's Notes [facility] Name: Bro Yung Age: 56 yrs Sex: Male : 1965 Arrival Date: 10/16/2021 Time: 03:45 Bed 6 Private MD: Diagnosis: Other perforations of tympanic membrane-Right Presentation: 10/16 04:04 Chief complaint: Patient states: "I know I have some stuff stuck in my right ear. I at as6 least have 3 q-tips and a paper clip in there". Coronavirus screen: At this time, the client does not indicate any symptoms associated with coronavirus-19. Ebola Screen: No symptoms or risks identified at this time. Initial Sepsis Screen: Does the patient meet any 2 criteria? No. Patient's initial sepsis screen is negative. Does the patient have a suspected source of infection? No. Patient's initial sepsis screen is negative. Risk Assessment: Do you want to hurt yourself or someone else? Patient reports no desire to harm self or others. Onset of symptoms is unknown. 04:04 Method Of Arrival: EMS: [facility] as6 04:04 Acuity: PATRICIO 5 as6 Historical: - Allergies: 04:07 No Known Allergies; as6 - Home Meds: 04:07 None [Active]; as6 - PMHx: 04:07 Anxiety; Bipolar disorder; Depression; as6 - PSHx: 04:07 Tonsillectomy; ankle; nose; eye; as6 - Immunization history:: Adult Immunizations not up to date, Client reports having NOT received the Covid vaccine. - Social history:: Smoking status: unknown. Screenin:08 Abuse screen: Denies threats or abuse. Denies injuries from another. Nutritional as6 screening: No deficits noted. Tuberculosis screening: No symptoms or risk factors identified. Fall Risk None identified. Assessment: 04:13 General: Appears in no apparent distress. comfortable, Behavior is cooperative, al4 appropriate for age. Neuro: Level of Consciousness is awake, alert, obeys commands, Oriented to person, place, time, situation. Cardiovascular: Capillary refill < 3 seconds Patient's skin is warm and dry. Respiratory: Airway is patent Respiratory effort is even, unlabored, Respiratory pattern is regular, symmetrical. GI: No signs and/or symptoms were reported involving the gastrointestinal system. : EENT: Reports right ear discomfort. Derm: No signs and/or symptoms reported regarding the dermatologic system. Musculoskeletal: Range of motion: intact in all extremities. 04:13 Pain: Complains of pain in right ear. al4 04:15 Reassessment: sandwich and juice given to patient. al4 Vital Signs: 04:00 BP 124 / 79; Pulse 79; Resp 18 S; Pulse Ox 97% on R/A; al4 04:04 BP 118 / 76; Pulse 80; Resp 18 S; Temp 97.7(TE); Pulse Ox 99% on R/A; Weight 68.04 kg as6 (R); Height 5 ft. 8 in. (172.72 cm) (R); Pain 8/10; 04:04 Body Mass Index 22.81 (68.04 kg, 172.72 cm) as6 ED Course: 03:45 Patient arrived in ED. 03:47 Mulugeta Ramirez, JESSICA is Primary Nurse. as6 03:48 Donavon Velasco MD is Attending Physician. 7 04:07 Triage completed. as6 04:08 Arm band placed on. as6 04:08 Bed in low position. Call light in reach. Side rails up X2. Pulse ox on. NIBP on. Warm as6 blanket given. 04:09 Nisha Howard MD is Referral Physician. 7 04:16 No provider procedures requiring assistance completed. Patient did not have IV access al4 during this emergency room visit. Administered Medications: 04:09 Drug: Augmentin (Amoxicillin-Clavulanate) 875 mg Route: PO; al4 04:25 Follow up: Response: No adverse reaction al4 Outcome: 04:10 Discharge ordered by . 7 04:24 Discharged to home al4 04:24 Condition: stable 04:24 Discharge instructions given to patient, Instructed on discharge instructions, follow up and referral plans. medication usage, Demonstrated understanding of instructions, follow-up care, medications. 04:25 Patient left the ED. al4 Signatures: Donavon Velasco MD MD [facility] Nydia Samayoa Mulugeta Ramirez, JESSICA RN as6 Eddy Olvera al4 Corrections: (The following items were deleted from the chart) 04:08 04:07 PMHx: CHF; as6 as6 04:08 04:07 PMHx: COPD; as6 as6 04:17 04:13 General: Appears in no apparent distress. comfortable, Behavior is cooperative, al4 appropriate for age, al4
[2021-10-16 04:33] VITALS: BP 118/76; TEMP 97.7; O2SAT 99
== END 2021-10-16 04:25 | disposition home or self-care (01) ==
LOC: ER 03:42
DX: S01.331A Puncture wound without foreign body of right ear, initial encounter (principal)
CPT/HCPCS: 99283

== ENCOUNTER 2021-11-04 17:36 | Emergency (ER) | payer OTHER ==
--- OUTSIDE RECORDS SUMMARY | 2021-11-04 17:39 | XMS REPORT | Continuity of Care Document ---
:1965 Author Organization [facility] t Address [address] [place] [address] Care Team Providers Name Role Phone UNKNOWN Primary Care Physician Unavailable ROLAN Attending Clinician Unavailable Rolan KRAMER Attending Clinician Doctor Unassigned, Name Attending Clinician Unavailable Staci KRAMER Attending Clinician STACI Attending Clinician Unavailable Payers Payer Name Policy Type Policy Number Effective Date Expiration Date [place]ce[place] erazo [facility] ST[facility] [id number] 2021 00:00:00 PLUS Problems This patient has no known problems. Allergies, Adverse Reactions, Alerts Allergy Allergy Status Severity Reaction(s) Onset Inactive Treating Comm ents Source Name Type Date Date Clinician NO KNOWN Drug Active [facility] No Known Drug Active [facility] Social History Social Habit Start Date Stop Date Quantity Comments Source Exposure to Not sure [facility] SARS-CoV-2 (event) Medica l Branch Sex Assigned At [birth year] [facility] 00:00:00 00:00:00 Medical [place] Smoking Status Start Date Stop Date Source Unknown if ever smoked [facility] Medications Ordered Filled Start Stop Current Ordering Indication Dosage Frequency Signature Comments Components Source Medication Medication Date Date Medication? Clinician (SIG) Name Name neomycin-po 2020-10 Yes [id number] 3[drp] Place 3 Univers lymyxin-hyd 2-28 Drops in ity of rocortisone 00:00: right ear [place] 3.5-10,000- 00 4 (four) Medi mele 1 times Branch mg/mL-unit/ daily. mL-% otic susp ibuprofen 2020-10 Yes [id number] 600mg Take 1 [facility] 600 mg 2-28 tablet by ity of tablet 00:00: mouth [place] 00 every 6 Medical (six) Branch hours as needed for Pain (scale 4-6). Vital Signs Vital Name Observation Time Observation Value Comments Source Systolic blood 2021-09-27 08:13:00 112 mm[facility]Hg[facility] Diastolic blood 2021-09-27 08:13:00 72 mm[facility]Hg[facility] [place] Heart rate 2021-09-27 08:13:00 77 /min [facility] Body temperature 2021-09-27 08:13:00 36.72 [facility] Respiratory rate 2021-09-27 08:13:00 18 /min [facility] Body height 2021-09-27 08:13:00 170.2 cm [facility] Body weight 2021-09-27 08:13:00 68.04 kg [facility] BMI 2021-09-27 08:13:00 23.49 kg/m2 [facility] Oxygen saturation in 2021-09-27 08:13:00 98 /min [facility] Arterial blood by [facility] Pulse oximetry Branch Height/Length 2021-10-18 09:59:29 172.72 cm Measured Weight Dosing 2021-10-18 09:59:29 74.84 kg Height/Length 2021-10-18 09:59:18 172.72 cm Measured Weight Dosing 2021-10-18 09:59:18 74.84 kg Height/Length 2021-10-18 09:53:31 172.72 cm Measured Weight Dosing 2021-10-18 09:53:31 74.84 kg Height/Length 2021-10-18 09:52:48 172.72 cm Measured Weight Dosing 2021-10-18 09:52:48 74.84 kg Height/Length 2021-10-18 09:52:22 172.72 cm Measured Weight Dosing 2021-10-18 09:52:22 74.84 kg Height/Length 2021-10-18 09:52:21 172.72 cm Measured Weight Dosing 2021-10-18 09:52:21 74.84 kg Height/Length 2021-10-18 09:52:17 172.72 cm Measured Weight Dosing 2021-10-18 09:52:17 74.84 kg Height/Length 2021-10-18 09:52:16 172.72 cm Measured Weight Dosing 2021-10-18 09:52:16 74.84 kg Height/Length 2021-10-18 09:52:06 172 cm Measured Height/Length 2021-10-18 09:52:02 172 cm Measured Height/Length 2020-01-05 18:19:09 Measured Procedures Procedure Date / Time Performed Performing Clinician [facility] e CONSENT/REFUSAL FOR 2021-09-27 07:58:16 Doctor Unassigned, No Un [facility] DIAGNOSIS AND Name Medical Branch TREATMENT Encounters Start End Encounter Admission Attending Care Care Encounter Source Date/Time Date/Time Type Type Clinicians Facility Department ID 2016-11-13 Inpatient E [facility] MED [id number] St. 23:30:00 [facility] 2021-09-27 2021-09-27 [id number] Univers 02:16:00 02:45:00 HAO itjairon of [facility] 2021-09-27 2021-09-27 [facility] [id number] Univers 02:16:00 02:45:00 Hao [place] [id number] i ty of [place] [id number] [facility] [id number] [facility] 084 Branch 2021-09-27 2021-09-27 Orders Doctor FOSS [id number] Univers 00:00:00 00:00:00 Only UnassignedISSA [id number] ity of [place] [facility] [id number] [facility] [id number] [facility] 009 Branch 2020-01-05 2020-01-05 [facility] [id number] Univers 12:30:57 23:59:00 Encounter Lyric [place] [id number] ity of MEDICAL [id number] [facility] [id number] [address] 2020-01-05 2020-01-05 [facility] St[facility] [id number] 12:30:57 23:59:00 Encounter Lyric [place] [id number] MEDICAL [id number] [place] [id number] [facility] 2020-01-05 2020-01-05 Emergency [facility] [place] [id number] 18:04:00 18:04:00 [facility] 2020-01-05 2020-01-05 Emergency [facility] [place] [id number] 18:04:00 18:04:00 [id number] Theo [facility] 2020-01-05 2020-01-05 Outpatient ST[facility] [id number] Univers 00:00:00 00:00:00 LYRIC eliazar o f [facility] Results Test Description Test Time Test Comments [...] A/G Ratio) 1.4 ratio N Comprehensive Metabolic [id number] 08:29:05 Test Item Value Reference Range Interpretation [...] National Kidney Foundation, http://[email or web address].ni h.gov Comprehensive Metabolic [id number] 08:29:05 Test Item Value Reference Range Interpretation [...] ag e have not been validated by [facility] MDRD study and should be interpreted [...] Foundation, [email or web address].ni h.gov Complete Blood Count without [id number] 08:07:00 Test Item Value Reference Range Interpretation [...] code = IPF) 0 % N RPR [id number] 11:58:31 Test Item Value Reference Range Interpretation [...] = 09-30-2020 N Expiration Dt) Thyroid Stimulating [id number] 07:31:59 Test Item Value Reference Range Interpretation Comments TSH (test code = TSH) 1.000 mIU/mL 0.270-4.200 Lipid [id number] 07:11:41 Test Item Value Reference Range Interpretation Comments Cholesterol Total 176 mg/dL 0-200 RISK OF HE ART (test code = DISEASEPublishe d by Cholesterol Total) [place] [employer] Maria G lyte Optimal Borderl [...]
--- NOTE | 2021-11-04 19:17 | RAD REPORT ---
EXAM DESCRIPTION: CT - Head Brain Wo Cont - 11/04/2021 7:10 pm CLINICAL HISTORY: HEADACHE Headache, drowsiness COMPARISON: No comparisons TECHNIQUE: All CT scans are performed using dose optimization technique as appropriate and may inclu de automated exposure control or mA/KV adjustment according to patient size. FINDINGS: No intracranial hemorrhage, hydrocephalus or extra-axial fluid collection.No areas of brai n edema or evidence of midline shift. The paranasal sinuses and mastoids are clear. The calvarium is intact. IMPRESSION: No acute intracranial abnormality.
--- NOTE | 2021-11-04 19:32 | RAD REPORT ---
EXAM DESCRIPTION: RAD - Abdomen W Erect - 11/04/2021 7:24 pm CLINICAL HISTORY: CONSTIPATION Pain COMPARISON: No comparisons FINDINGS: The bowel gas pattern is non-obstructive. No evidence of free air or pneumatosis. No suspi cious calcifications. No significant bony findings. Moderate constipation. IMPRESSION: Moderate to significant constipation noted.
[2021-11-04 19:53] LABS: Urine Blood Negative (Negative); Urine Glucose Negative (Negative); Urine Protein Negative (Negative); Urine Specific Gravity >=1.030 (1.005-1.030); Urine pH 5.5 (5.0-7.0)
[2021-11-04] MEDS ORDERED: ONDANSETRON 4 MG/2 ML VIAL ONE (19:57)
[2021-11-04] MEDS ORDERED: ACETAMINOPHEN 500 MG TAB ONE (19:57)
[2021-11-04] MEDS ORDERED: NA CHLORIDE 0.9% 1,000 ML ONE (19:57)
[2021-11-04] MEDS ORDERED: dexAMETHasone 10 MG/ML VIAL ONE (19:58)
[2021-11-04 20:12] LABS: Absolute Lymphocytes (CBC) 2.7 K/uL (0.7-4.9); Hematocrit 49.8 % (39.6-49.0); Lymphocytes % 19.4 % (15.3-44.8); MPV 6.6 fL (7.6-11.3); RBC Red Blood Cell Count 5.32 M/uL (4.33-5.43)
[2021-11-04 20:19] LABS: Barbiturates NEGATIVE (NEGATIVE); Benzodiazepines NEGATIVE (NEGATIVE); Cocaine NEGATIVE (NEGATIVE); METHAMPHETAM POSITIVE (NEGATIVE); Methadone NEGATIVE (NEGATIVE); Opiates NEGATIVE (NEGATIVE); Phencyclidine NEGATIVE (NEGATIVE); THC Cannibis NEGATIVE (NEGATIVE)
--- NOTE | 2021-11-04 22:18 | EDPHYS ---
Physician Documentation [facility] Name: Bro Yung Age: 56 yrs Sex: Male : 1965 Arrival Date: 11/04/2021 Time: 17:39 Bed 25 Private MD: ED Physician Bro Ortiz HPI: 11/04 19:00 This 56 yrs old Male presents to ER via Ambulatory with complaints of Headache. cp 19:00 The patient complains of pain to the top of head, left side of the back of head, left cp occipital area, right side of the back of head and right occipital area. The patient describes the headache as aching, constant. Onset: The symptoms/episode began/occurred 3 day(s) ago. Associated signs and symptoms: Pertinent positives: right ear pain. Severity of symptoms: in the emergency department the pain is unchanged, despite home interventions. 19:00 Patient also c/o constipation with last bowel movement 2 days ago. cp Historical: - Allergies: 17:53 No Known Allergies; jl7 - Home Meds: 17:53 None [Active]; jl7 - PMHx: 17:53 Anxiety; Bipolar disorder; Depression; jl7 - PSHx: 17:53 Ankle; eye; Nose; Tonsillectomy; jl7 - Immunization history:: Adult Immunizations not up to date, Client reports having NOT received the Covid vaccine. - Social history:: Smoking status: Patient reports the use of cigarette tobacco products, smokes one pack cigarettes per day. ROS: 19:05 Constitutional: Negative for body aches, chills, fever, poor PO intake. cp 19:05 Eyes: Negative for injury, pain, redness, and discharge. cp 19:05 ENT: Positive for ear pain, Negative for drainage from ear(s), sore throat, difficulty swallowing, difficulty handling secretions. 19:05 Cardiovascular: Negative for chest pain, palpitations. 19:05 Respiratory: Negative for cough, shortness of breath, wheezing. 19:05 Abdomen/GI: Positive for constipation, Negative for vomiting, diarrhea, black/tarry stool, rectal bleeding. 19:05 Neuro: Positive for headache, Negative for altered mental status, numbness, syncope, weakness. Exam: 19:10 Constitutional: The patient appears in no acute distress, alert, awake, cp non-diaphoretic, non-toxic, well developed, well nourished. 19:10 Head/Face: Normocephalic, atraumatic. cp 19:10 Eyes: Periorbital structures: appear normal, Pupils: equal, round, and reactive to light and accomodation, Extraocular movements: intact throughout, Conjunctiva: normal, no exudate, no injection, Sclera: no appreciated abnormality, Lids and lashes: appear normal, bilaterally. 19:10 ENT: External ear(s): are unremarkable, Ear canal(s): are normal, clear, TM's: erythema, that is mild, on the right, fluid levels, on the right, Examination of the other ear shows no obvious abnormality, Nose: is normal, Mouth: Lips: moist, Oral mucosa: moist, Posterior pharynx: Airway: no evidence of obstruction, patent. 19:10 Neck: ROM/movement: is normal, is supple, no meningismus, no nuchal rigidity, Lymph nodes: no appreciated lymphadenopathy. 19:10 Chest/axilla: Inspection: normal. 19:10 Cardiovascular: Rate: normal, Rhythm: regular. 19:10 Respiratory: the patient does not display signs of respiratory distress, Respirations: normal, no use of accessory muscles, no retractions, labored breathing, is not present, Breath sounds: are clear throughout, no decreased breath sounds. 19:10 Abdomen/GI: Inspection: abdomen appears normal, Bowel sounds: active, all quadrants, Palpation: abdomen is soft and non-tender, in all quadrants. 19:10 Back: pain, is absent, ROM is normal. 19:10 Skin: cellulitis, is not appreciated, no rash present. 19:10 Neuro: Orientation: to person, place \T\ time. Mentation: able to follow commands, Motor: moves all fours, strength is normal, Sensation: no obvious gross deficits, Gait: is steady, at a normal pace, without difficulty. Vital Signs: 17:51 BP 130 / 87; Pulse 92; Resp 17; Temp 97.3; Pulse Ox 97% on R/A; Weight 65.77 kg; Height jl7 5 ft. 8 in. (172.72 cm); Pain 10/10; 18:20 BP 110 / 77; Pulse 91; Resp 16; Pulse Ox 99% ; Pain 6/10; cb5 20:54 BP 122 / 78; Pulse 82; Resp 16; Pulse Ox 94% on R/A; st1 17:51 Body Mass Index 22.05 (65.77 kg, 172.72 cm) jl7 MDM: 18:35 Patient medically screened. cp 19:00 Differential diagnosis: intracerebral hemorrhage, meningoencephalitis, migraine, cp neoplasm, sinusitis, subarachnoid bleed, tension headache, constipation, bowel obstruction. 22:17 Data reviewed: vital signs, nurses notes, lab test result(s), radiologic studies, CT cp scan, plain films. 22:17 Test interpretation: by ED physician or midlevel provider: plain radiologic studies. cp Counseling: I had a detailed discussion with the patient and/or guardian regarding: the historical points, exam findings, and any diagnostic results supporting the discharge/admit diagnosis, lab results, radiology results, to return to the emergency department if symptoms worsen or persist or if there are any questions or concerns that arise at home. Response to treatment: the patient's symptoms have markedly improved after treatment, Headache improved with meds. Patient requesting discharge at this time while awaiting results of bmp. UDS positive for methamphetamine and patient reports last use yesterday. VSS. Will discharge to home for continued monitoring. 11/04 18:50 Order name: UDS; Complete Time: 21:09 cp 11/04 21:10 Interpretation: Normal except: METHAMPHETAMINE POSITIVE. cp 11/04 18:50 Order name: CBC with Diff; Complete Time: 21:09 cp 11/04 21:10 Interpretation: Normal except: WBC 13.80; HCT 49.8; MPV 6.6; NEUT A 10.0. cp 11/04 18:50 Order name: CT Head Brain wo Cont; Complete Time: 19:35 cp 11/04 19:35 Interpretation: Report reviewed. cp 11/04 18:50 Order name: PT-INR; Complete Time: 19:16 cp 11/04 19:53 Order name: Urine Dipstick-Ancillary; Complete Time: 21:09 EDMS 11/04 18:50 Order name: Urine Dipstick-Ancillary (obtain specimen); Complete Time: 19:53 cp 11/04 19:05 Order name: XRAY Abdomen With Erect; Complete Time: 19:35 cp 11/04 19:37 Interpretation: Report reviewed. cp Administered Medications: 20:03 Drug: Zofran (Ondansetron) 4 mg Route: IVP; Site: right hand; st1 20:03 Drug: Dexamethasone 10 mg Route: IVP; Site: right hand; st1 20:04 Drug: NS 0.9% 1000 ml Route: IV; Rate: 1 bolus; Site: right hand; st1 20:04 Drug: Tylenol 1000 mg Route: PO; st1 22:23 Not Given (Patient Refused): Ketorolac 30 mg IVP once st1 22:23 Not Given (Patient Refused): Augmentin (Amoxicillin-Clavulanate) 875 mg PO once st1 Disposition: 11/05 16:08 Co-signature as Attending Physician, Bro Ortiz MD I agree with the assessment and kdr plan of care. Disposition Summary: 11/04/21 22:18 Discharge Ordered Location: Home cp Problem: new cp Symptoms: have improved cp Condition: Stable cp Diagnosis - Acute suppurative otitis media - right ear cp - Headache cp - Constipation cp - Adverse effect of amphetamines cp Followup: cp - With: Private Physician - When: 2 - 3 days - Reason: Recheck today's complaints Discharge Instructions: - Discharge Summary Sheet cp - Constipation, Adult cp - Otitis Media, Adult cp - General Headache Without Cause cp - Methamphetamines Use Disorder cp Forms: - Medication Reconciliation Form cp - Thank You Letter cp - Antibiotic Education cp - Prescription Opioid Use cp Prescriptions: - Miralax 17 gram Oral powder in packet - take 1 packet by ORAL route once daily As needed; 20 packet; Refills: 0, cp Product Selection Permitted - Augmentin 875-125 mg Oral Tablet - take 1 tablet by ORAL route every 12 hours for 10 days; 20 tablet; Refills: 0, cp Product Selection Permitted Signatures: Dispatcher [employer] EDMO Bro Ortiz MD MD kdr Page, Corey, PA PA cp Maclolm Miramontes RN RN jl7 Calli Pickett RN RN st1 Corrections: (The following items were deleted from the chart) 11/04 22:02 19:00 The patient complains of pain to the top of head and forehead, cp cp 11/05 19:13 11/04 19:00 Patient also c/o constipation with last bowel movement 3 days ago. cp cp
--- NOTE | 2021-11-04 22:18 | ER ---
Nurse's Notes [facility] Name: Bro Yung Age: 56 yrs Sex: Male : 1965 Arrival Date: 11/04/2021 Time: 17:39 Bed 25 Private MD: Diagnosis: Acute suppurative otitis media-right ear;Headache;Constipation;Adverse effect of amphetamines Presentation: 11/04 17:51 Chief complaint: Patient states: Headache x 3 days, constipation x 2 days, denies N/V, jl7 denies blurred vision, denies dizziness. Coronavirus screen: Vaccine status: Patient reports being unvaccinated. headache, Client presents with at least one sign or symptom that may indicate coronavirus-19. Standard/surgical mask placed on the client. Provider contacted for isolation considerations. Ebola Screen: No symptoms or risks identified at this time. Initial Sepsis Screen: Does the patient meet any 2 criteria? No. Patient's initial sepsis screen is negative. Does the patient have a suspected source of infection? No. Patient's initial sepsis screen is negative. Risk Assessment: Do you want to hurt yourself or someone else? Patient reports no desire to harm self or others. Onset of symptoms was November 01, 2021. 17:51 Method Of Arrival: Ambulatory ed [facility] 17:51 Acuity: PATRICIO 3 jl7 Triage Assessment: 17:53 Headache History: The patient has had previous headaches and this one is more severe jl7 than previous episodes. General: Appears in no apparent distress. uncomfortable, Behavior is calm, cooperative, appropriate for age. Pain: Complains of pain in PAREDES Pain currently is 10 out of 10 on a pain scale. Pain began 2-3 days ago. Is continuous, Also complains of no other associated symptoms. Neuro: Level of Consciousness is awake, alert, obeys commands, Oriented to person, place, time, situation, Gait is steady, Speech is normal. Historical: - Allergies: 17:53 No Known Allergies; jl7 - Home Meds: 17:53 None [Active]; jl7 - PMHx: 17:53 Anxiety; Bipolar disorder; Depression; jl7 - PSHx: 17:53 Ankle; eye; Nose; Tonsillectomy; jl7 - Immunization history:: Adult Immunizations not up to date, Client reports having NOT received the Covid vaccine. - Social history:: Smoking status: Patient reports the use of cigarette tobacco products, smokes one pack cigarettes per day. Screenin:18 Abuse screen: Denies threats or abuse. Denies injuries from another. Nutritional cb5 screening: No deficits noted. Tuberculosis screening: No symptoms or risk factors identified. Fall Risk None identified. Assessment: 18:07 General: Appears uncomfortable, well groomed, Behavior is calm, cooperative, cb5 appropriate for age. Pain: Complains of pain in head Pain currently is 6 out of 10 on a pain scale. Pain: Pain Pain began pt states he has had a headache for a few days now and cojestion. Neuro: No deficits noted. Cardiovascular: No deficits noted. Respiratory: Reports cough that is conjestion. GI: Patient currently denies. : Denies. EENT: No deficits noted. Derm: No deficits noted. Musculoskeletal: No deficits noted. 18:50 Reassessment: Patient and/or family updated on plan of care and expected duration. Pain cb5 level reassessed. 19:05 Reassessment: pt not in room, gave report to Ema Mccurdy cb5 Vital Signs: 17:51 BP 130 / 87; Pulse 92; Resp 17; Temp 97.3; Pulse Ox 97% on R/A; Weight 65.77 kg; Height jl7 5 ft. 8 in. (172.72 cm); Pain 10/10; 18:20 BP 110 / 77; Pulse 91; Resp 16; Pulse Ox 99% ; Pain 6/10; cb5 20:54 BP 122 / 78; Pulse 82; Resp 16; Pulse Ox 94% on R/A; st1 17:51 Body Mass Index 22.05 (65.77 kg, 172.72 cm) jl7 ED Course: 17:39 Patient arrived in ED. as 17:53 Triage completed. jl7 17:53 Arm band placed on right wrist. jl7 18:07 Akiko Orellana, RN is Primary Nurse. cb5 18:18 No provider procedures requiring assistance completed. cb5 18:19 Patient has correct armband on for positive identification. Bed in low position. Call cb5 light in reach. Side rails up X 1. 18:28 Rob Mcclain PA is PHCP. cp 18:29 Bro Ortiz MD is Attending Physician. cp 19:05 Report given to Calli Garduno cb5 19:10 CT Head Brain wo Cont In Process Unspecified. EDMS 19:23 XRAY Abdomen With Erect In Process Unspecified. EDMS 19:45 BMP Sent. st1 19:45 CBC with Diff Sent. st1 19:45 PT-INR Sent. st1 19:53 UDS Sent. st1 20:09 Pulse ox on. NIBP on. Verbal reassurance given. st1 20:09 Inserted saline lock: 18 gauge in right hand, using aseptic technique. st1 20:19 Patients sister Isis [phone] Security Code for information [id number]. st1 22:23 the patient refused medications ordered in the ED. st1 22:25 IV discontinued, intact, bleeding controlled, No redness/swelling at site. Pressure st1 dressing applied. Administered Medications: 20:03 Drug: Zofran (Ondansetron) 4 mg Route: IVP; Site: right hand; st1 20:03 Drug: Dexamethasone 10 mg Route: IVP; Site: right hand; st1 20:04 Drug: NS 0.9% 1000 ml Route: IV; Rate: 1 bolus; Site: right hand; st1 20:04 Drug: Tylenol 1000 mg Route: PO; st1 22:23 Not Given (Patient Refused): Ketorolac 30 mg IVP once st1 22:23 Not Given (Patient Refused): Augmentin (Amoxicillin-Clavulanate) 875 mg PO once st1 Outcome: 22:18 Discharge ordered by MD. cp 22:24 Discharged to home ambulatory. st1 22:24 Condition: good 22:24 Discharge instructions given to patient, Instructed on discharge instructions, follow up and referral plans. no drinking with medication, medication usage, Demonstrated understanding of instructions, follow-up care, medications, Prescriptions given X 2. 22:25 Patient left the ED. st1 Signatures: Dispatcher [employer] Loyda Kelly Corey, PA PA cp Leal, Jahala, RN RN jl7 Akiko Orellana, JESSICA RN cb5 Calli Pickett, RN RN st1
[2021-11-04 22:23] LABS: Protime INR 1.1
[2021-11-04 22:32] VITALS: TEMP 97.3
[2021-11-04 22:34] VITALS: BP 122/78; O2SAT 94
== END 2021-11-04 22:25 | disposition home or self-care (01) ==
LOC: ER 17:36
DX: H66.001 Acute suppurative otitis media without spontaneous rupture of ear drum, right ear (principal); K59.00 Constipation, unspecified; T43.625A Adverse effect of amphetamines, initial encounter
CPT/HCPCS: 85025; 36415; 85610; 81003; 80307; 70450; 74019; 96375; 96374; 99284; J1100; J7030; J2405

== ENCOUNTER 2022-06-15 14:20 | Emergency (ER) | payer OTHER ==
--- OUTSIDE RECORDS SUMMARY | 2022-06-15 14:28 | XMS REPORT | Continuity of Care Document ---
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 Hydrocodone 16:46: Pain Score [place] Bitartrate 00 6-10, 0 10 MG Oral Refill(s) Tablet [[place] 10/325] FLUoxetine Yes 60 mg = 3 Me moria 20 mg oral 2-11 cap, PO, l capsule 16:46: Daily, # Kamari n 00 90 cap, 0 Refill(s), Pharmacy: [facility] [place] [address] senna 05.06 Yes 17.2 mg = Mem oria mg oral 2-11 2 tab, PO, l tablet 16:46: Bedtime, 0 Naye nn 00 Refill(s) gabapentin Yes 300 mg = 1 M emoria 300 MG Oral 2-11 cap, PO, l Capsule 16:46: Q8H-05, # Naye nn 00 90 cap, 0 Refill(s), Pharmacy: [facility] [id number] methocarbam Yes 1,000 mg = Memoria ol 500 mg 2-11 2 tab, PO, l oral tablet 16:46: Q8H-05, Her baker 00 PRN Spasm, X 14 day, # 84 tab, 0 Refill(s), Pharmacy: [facility] tramadol No Notes: Not Mem oria hydrochlori 2-11 to exceed l de 50 MG 15:34: 400mg/day. Her baker Oral Tablet 00 (Same As: [Ultram] Ultram) Morphine No Notes: Memoria 2-11 (Same l 15:34: as:MORPhin Jaden 00 e Sulfate) tramadol No Notes: Not Mem oria hydrochlori 2-11 to exceed l de 50 MG 15:34: 400mg/day. Her baker Oral Tablet 00 (Same As: [Ultram] Ultram) Morphine No Notes: Memoria 2-11 (Same l 15:34: as:MORPhin Jaden 00 e Sulfate) sennosides, No Notes: Raad kenna HALF-WAY 2-11 (Same as: l 03:00: Senokot) [place] Trazodone No Notes: Memori a 2-11 (Same As: l 03:00: Desyrel) [place] sennosides, No Notes: Raad kenna HALF-WAY 2-11 (Same as: l 03:00: Senokot) Jaden Trazodone No Notes: Memori a 2-11 (Same As: l 03:00: Desyrel) [place] Cefazolin No Notes: Memori a 2-10 (Same As: l 22:00: Ancef, Jaden 00 Kefzol) MEDICATION WASTE Product Size: 1000 mg Product Wasted: ___ mg Cefazolin No Notes: Memori a 2-10 (Same As: l 22:00: Ancef, [place] 00 Kefzol) MEDICATION WASTE Product Size: 1000 mg Product Wasted: ___ mg Latuda No Notes: Memoria 2-10 (Same as: l 15:00: Latuda) [place] 00 Non-Formul em Prozac 2017 No Notes: Memoria 2-10 (Same as: l 15:00: Prozac, Jaden 00 Sarafem) Latuda No Notes: Memoria 2-10 (Same as: l 15:00: Latuda) [place] 00 Non-Formul em Prozac No Notes: Memoria 2-10 (Same as: l 15:00: Prozac, Jaden 00 Sarafem) Ondansetron No Notes: Raad kenna 2-10 (Same as: l 14:58: Zofran) [place] 00 MEDICATION WASTE Product Size: 4 mg Product Wasted: ___ mg Oxycodone No Notes: Memori a 2-10 (Same as: l 14:58: Roxicodone Jaden ) Hydromorpho No Notes: Raad kenna ne 2-10 Same as: l 14:58: Dilaudid [place] Naloxone No Notes: Memoria 2-10 Same as l 14:58: Narcan [place] Flumazenil No Notes: Memor ia 2-10 (Same as: l 14:58: Romazicon) Jaden 00 Ondansetron No Notes: Rada kenna 2-10 (Same as: l 14:58: Zofran) Jaden 00 MEDICATION WASTE Product Size: 4 mg Product Wasted: ___ mg Oxycodone No Notes: Memori a 2-10 (Same as: l 14:58: Roxicodone [place] ) Hydromorpho No Notes: Raad kenna ne 2-10 Same as: l 14:58: Dilaudid [place] Naloxone No Notes: Memoria 2-10 Same as l 14:58: Narcan [place] 00 Flumazenil No Notes: Memor ia 2-10 (Same as: l 14:58: Romazicon) Jaden Ancef No 2 gm, Memoria 2-10 Route: l 13:28: IVPB, Jaden 00 ONCE, Dosing Weight 88.636, kg, Start date: 11/10/16 7:28:00 SPRAY GUN OPERATOR, Duration: 1 doses or times, Stop date: 11/10/16 7:28:00 SPRAY GUN OPERATOR, Surgical Prophylaxi s Only; For patients < 120 kg Ancef No 2 gm, Memoria 2-10 Route: l 13:28: IVPB, Jaden 00 ONCE, Dosing Weight 88.636, kg, Start date: 11/10/16 7:28:00 SPRAY GUN OPERATOR, Duration: 1 doses or times, Stop date: 11/10/16 7:28:00 SPRAY GUN OPERATOR, Surgical Prophylaxi s Only; For patients < 120 kg ketOROLAC No 4 days. Raad kenna 15 mg/mL 2-10 l injectable 12:00: [place] solution ketOROLAC No 4 days. Raad kenna 15 mg/mL 2-10 l injectable 12:00: Jaden solution Lovenox No Notes: Memoria 2-10 (Same as: l 10:00: Lovenox) [place] Lovenox No Notes: Memoria 2-10 (Same as: l 10:00: Lovenox) Fentanyl No 50 kg Memoria 2-10 l 09:06: Jaden Fentanyl No 50 kg Memoria 2-10 l 09:06: [place] Acetaminoph No Notes: Do M emoria en 325 MG / 2-10 not exceed l Hydrocodone 08:51: 4gm/day of [place]aden Bitartrate 00 acetaminop 10 MG Oral hen. (Same Tablet as: [place] [[place] 325/10) ] gabapentin No Notes: Memor ia 300 MG Oral 2-10 (Same as: l Capsule 08:51: Neurontin) vivian Robaxin No Notes: Memoria 2-10 (Same l 08:51: as:Robaxin ) ketOROLAC No 15 mg, Memori a 15 mg/mL 2-10 Route: IM, l injectable 08:51: Q6H, kg, Her baker solution 00 Priority: NOW, Start date: 11/10/16 2:51:00 SPRAY GUN OPERATOR, Duration: 4 day, Stop date: 11/14/16 0:00:00 SPRAY GUN OPERATOR Acetaminoph No Notes: Do M emoria en 325 MG / 2-10 not exceed l Hydrocodone 08:51: 4gm/day of [place]aden Bitartrate 00 acetaminop 10 MG Oral hen. (Same Tablet as: [place] [[place] 325/10) 10/325] gabapentin No Notes: Memor ia 300 MG Oral 2-10 (Same as: l Capsule 08:51: Neurontin) Herm vivian 00 Robaxin No Notes: Memoria 2-10 (Same l 08:51: as:Robaxin [place] 00 ) ketOROLAC No 15 mg, Memori a 15 mg/mL 2-10 Route: IM, l injectable 08:51: Q6H, kg, Her baker solution 00 Priority: NOW, Start date: 11/10/16 2:51:00 SPRAY GUN OPERATOR, Duration: 4 day, Stop date: 11/14/16 0:00:00 SPRAY GUN OPERATOR Lurasidone Yes 20 mg = 1 [...] n [Prozac] 00 30 cap, 0 Refill(s) Lurasidone Yes 20 mg = 1 Me [...] 00 30 cap, 0 Refill(s) Isolyte S 0 No Notes: Memori a (PH 7.4) 2-10 (Same as: l 1000 mL 08:16: Isolyte S Naye nn 1,000 mL 00 PH 7.4) Isolyte S 0 No Notes: Memori a (PH 7.4) 2-10 (Same as: l 1000 mL 08:16: Isolyte S Naye nn 1,000 mL 00 PH 7.4) Acetaminoph No Notes: Max Memoria en 2-10 acetaminop l 08:15: hen 4000 [place] 00 mg/day (4 gm/day). (Same as: Tylenol Extra Strength) Ondansetron No Notes: Raad kenna 2-10 (Same as: l 08:15: Zofran) [place] 00 MEDICATION WASTE Product Size: 4 mg Product Wasted: ___ mg Acetaminoph No Notes: Max Memoria en 2-10 acetaminop l 08:15: hen 4000 Jaden 00 mg/day (4 gm/day). (Same as: Tylenol Extra Strength) Ondansetron No Notes: Raad kenna 2-10 (Same as: l 08:15: Zofran) [place] 00 MEDICATION WASTE Product Size: 4 mg Product Wasted: ___ mg Morphine 2017-0 No 4 mg, Memoria 2-10 Route: l 07:40: IVP, ONCE, Jaden 00 kg, Priority: STAT, Start date: 11/10/16 1:40:00 SPRAY GUN OPERATOR, Stop date: 11/10/16 1:40:00 SPRAY GUN OPERATOR Morphine 2017-0 No 4 mg, Memoria 2-10 Route: l 07:40: IVP, ONCE, Jaden 00 kg, Priority: STAT, Start date: 11/10/16 1:40:00 SPRAY GUN OPERATOR, Stop date: 11/10/16 1:40:00 SPRAY GUN OPERATOR Dilaudid 2017-0 No 2 mg, Memoria 2-10 Route: l 05:28: IVP, ONCE, Jaden 00 kg, Priority: STAT, Start date: 11/09/16 23:28:00 SPRAY GUN OPERATOR, Stop date: 11/09/16 23:28:00 SPRAY GUN OPERATOR Dilaudid 2017-0 No 2 mg, Memoria 2-10 Route: l 05:28: IVP, ONCE, Jaden 00 kg, Priority: STAT, Start date: 11/09/16 23:28:00 SPRAY GUN OPERATOR, Stop date: 11/09/16 23:28:00 SPRAY GUN OPERATOR Sodium 2017-0 No 2,000 mL, Memori a Chloride 2-10 2,000 l 0.154 05:10: ml/hr, [place] MEQ/ML 00 Infuse Injectable Over: 1 Solution hr, Route: IV, 2,000, Drug form: INJ, ONCE, Priority: STAT, kg, Start date: 11/09/16 23:10:00 SPRAY GUN OPERATOR, Duration: 1 doses or times, Stop date: 11/09/16 23:10:00 SPRAY GUN OPERATOR Sodium 2017-0 No 2,000 mL, Memori a Chloride 2-10 2,000 l 0.154 05:10: ml/hr, Jaden MEQ/ML 00 Infuse Injectable Over: 1 Solution hr, Route: IV, 2,000, Drug form: INJ, ONCE, Priority: STAT, kg, Start date: 11/09/16 23:10:00 SPRAY GUN OPERATOR, Duration: 1 doses or times, Stop date: 11/09/16 23:10:00 SPRAY GUN OPERATOR Zofran 2017-0 No Notes: Memoria 2-10 (Same as: l 04:51: Zofrbasil) Jaden 00 MEDICATION WASTE Product Size: 4 mg Product Wasted: ___ mg Zofran 2017-0 No Notes: Memoria 2-10 (Same as: l 04:51: Zofran) Jaden 00 MEDICATION WASTE Product Size: 4 mg Product Wasted: ___ mg Morphine 2017-0 No 4 mg, Memoria 2-10 Route: l 04:50: IVP, ONCE, Jaden 00 kg, Priority: STAT, Start date: 11/09/16 22:50:00 SPRAY GUN OPERATOR, Stop date: 11/09/16 22:50:00 SPRAY GUN OPERATOR Morphine 2017-0 No 4 mg, Memoria 2-10 Route: l 04:50: IVP, ONCE, Jaden 00 kg, Priority: STAT, Start date: 11/09/16 22:50:00 SPRAY GUN OPERATOR, Stop date: 11/09/16 22:50:00 SPRAY GUN OPERATOR Ketamine No 100 mg, Memori a 2-10 Route: l 04:11: IVP, ONCE, [place] 00 kg, Priority: STAT, Start date: 11/09/16 22:11:00 SPRAY GUN OPERATOR, Stop date: 11/09/16 22:11:00 SPRAY GUN OPERATOR Ketamine No 100 mg, Memori a 2-10 Route: l 04:11: IVP, ONCE, [place] 00 kg, Priority: STAT, Start date: 11/09/16 22:11:00 SPRAY GUN OPERATOR, Stop date: 11/09/16 22:11:00 SPRAY GUN OPERATOR Fentanyl No Notes: Memoria 2-10 (Same as: l 04:09: Sublimaze) Jaden 00 Preservati ve free. Fentanyl No Notes: Memoria 2-10 (Same as: l 04:09: Sublimaze) [place] 00 Preservati ve free. Fentanyl No Notes: Memoria 2-10 (Same as: l 04:08: Sublimaze) Jaden 00 Preservati ve free. Fentanyl No Notes: Memoria 2-10 (Same as: l 04:08: Sublimaze) Jaden 00 Preservati ve free. Saline No Notes: Memoria Flush 0.9% 2-10 (Same as: l 03:30: BD [place] 00 Posiflush) Saline No Notes: Memoria Flush 0.9% 2-10 (Same as: l 03:30: BD Jaden 00 Posiflush) famotidine 2015-10 Yes Heartburn 40mg QD Take 1 Kahn (PEPCID) 40 1-18 tablet by [facility] lth mg tablet 00:00: mouth 00 daily. traZODone 2015-10 Yes Insomnia, 200mg Take 2 Kahn (DESYREL) 1-18 unspecified tablets by [facility] 100 mg 00:00: type mouth at tablet [...] 2015-10 Yes Jock itch Q.5D Apply to [place] (MICOTIN) 2 0-03 affected Heal th % topical 00:00: area 2 cream 00 times daily. Immunizations Ordered Immunization Filled Immunization Date Status Commen ts Source Name Name Influenza Vaccine 2016-07-[address] [facility] 00:00:00 PPD 2012-02-[address] [facility] 00:00:00 PPD 2011-02-[address] [facility] 00:00:00 Vital Signs Vital Name Observation Time Observation Value Comments Source Systolic blood 2022-06-08 19:28:00 114 mm[Hg] [facility] Diastolic blood 2022-06-08 19:28:00 78 mm[Hg] [facility] Heart rate 2022-06-08 19:28:00 90 /min [facility] Body temperature 2022-06-08 19:28:00 36.78 Jennifer [facility] Respiratory rate 2022-06-08 19:28:00 17 /min [facility] Body height 2022-06-08 19:28:00 172.7 cm [facility] Body weight 2022-06-08 19:28:00 67.767 kg [facility] BMI 2022-06-08 19:28:00 22.72 kg/m2 [facility] Oxygen saturation in 2022-06-08 19:28:00 97 /min [facility] Arterial blood by [facility] Pulse oximetry Branch Systolic blood 2022-05-28 12:37:00 101 mm[Hg] [facility] Diastolic blood 2022-05-28 12:37:00 70 mm[Hg] [facility] Heart rate 2022-05-28 12:37:00 69 /min [facility] Body temperature 2022-05-28 12:37:00 36.67 Jennifer [facility] Respiratory rate 2022-05-28 12:37:00 18 /min [facility] Body weight 2022-05-28 12:37:00 66.271 kg [facility] BMI 2022-05-28 12:37:00 22.21 kg/m2 [facility] Oxygen saturation in 2022-05-28 12:37:00 97 /min [facility] Arterial blood by [facility] mele Pulse oximetry Branch Body height 2022-05-27 23:06:00 172.7 cm [facility] Systolic blood 2022-01-02 05:10:00 109 mm[Hg] [facility] Diastolic blood 2022-01-02 05:10:00 80 mm[Hg] [facility] Heart rate 2022-01-02 05:10:00 106 /min [facility] Body temperature 2022-01-02 05:10:00 37.22 Jennifer [facility] [place] [facility] Respiratory rate 2022-01-02 05:10:00 20 /min [facility] [place] [facility] Body height 2022-01-02 05:10:00 172.7 cm [facility] Body weight 2022-01-02 05:10:00 63.504 kg [facility] BMI 2022-01-02 05:10:00 21.29 kg/m2 [facility] Oxygen saturation in 2022-01-02 05:10:00 98 /min [facility] Arterial blood by [facility] Pulse oximetry Branch Systolic blood 2021-09-27 08:13:00 112 mm[Hg] [facility] Diastolic blood 2021-09-27 08:13:00 72 mm[Hg] [facility] Heart rate 2021-09-27 08:13:00 77 /min [facility] Body temperature 2021-09-27 08:13:00 36.72 Jennifer [facility] [place] [facility] Respiratory rate 2021-09-27 08:13:00 18 /min [facility] [place] [facility] Body height 2021-09-27 08:13:00 170.2 cm [facility] Body weight 2021-09-27 08:13:00 68.04 kg [facility] BMI 2021-09-27 08:13:00 23.49 kg/m2 [facility] Oxygen saturation in 2021-09-27 08:13:00 98 /min University Arterial blood by [facility] Pulse oximetry Branch Height/Length 2021-10-18 09:59:29 172.72 [...] 172 cm Measured Height/Length 2020-01-05 18:19:09 Measured Respitory Rate 2016-12-20 16:24:00 Jareth al [place] Heart Rate 2016-12-20 16:24:00 [facility] [place] Temperature Oral (F) 2016-12-20 16:24:00 98.2 F [facility] [place] Systolic (mm Hg) 2016-12-20 16:24:00 Raad green [place] Diastolic (mm Hg) 2016-12-20 16:24:00 Mem orial [place] Respitory Rate 2016-12-20 13:24:00 Jareth al [place] Systolic (mm Hg) 2016-12-20 13:24:00 Raad rial [place] Diastolic (mm Hg) 2016-12-20 13:24:00 Mem orial [place] Heart Rate 2016-12-20 13:24:00 [facility] [place] Temperature Oral (F) 2016-12-20 13:24:00 98.0 F [facility] [place] Respitory Rate 2016-12-20 09:00:00 Memori al [place] Systolic (mm Hg) 2016-12-20 09:00:00 Raad rial [place] Diastolic (mm Hg) 2016-12-20 09:00:00 Mem orial [place] Temperature Oral (F) 2016-12-20 09:00:00 97.2 F [facility] [place] Heart Rate 2016-12-20 09:00:00 [facility] [place] Height 2016-12-19 23:06:00 172.72 cm [facility] [place] BMI Calculated 2016-12-19 23:06:00 Memori al [place] Weight 2016-12-19 23:06:00 [facility] [place] Weight 2016-12-18 18:24:00 [facility] [place] Height 2016-12-18 18:24:00 172.72 cm [facility] [place] BMI Calculated 2016-12-18 18:24:00 Memori al [place] Temperature Oral (F) 2016-11-19 00:28:00 97.0 F [facility] [place] Heart Rate 2016-11-19 00:28:00 [facility] [place] Respitory Rate 2016-11-19 00:28:00 Memori al [place] Systolic (mm Hg) 2016-11-19 00:28:00 Raad rial [place] Diastolic (mm Hg) 2016-11-19 00:28:00 Mem orial [place] Height 2016-11-19 00:28:00 177.8 cm [facility] [place] BMI Calculated 2016-11-19 00:28:00 Memori al [place] Weight 2016-11-19 00:28:00 [facility] [place] Height 2016-11-12 13:46:00 172.72 cm [facility] [place] BMI Calculated 2016-11-12 13:46:00 Memori al [place] Weight 2016-11-12 13:46:00 [facility] [place] Heart Rate 2016-11-12 13:46:00 [facility] [place] Respitory Rate 2016-11-12 13:46:00 Memori al [place] Temperature Oral (F) 2016-11-12 13:46:00 97.5 F [facility] [place] Systolic (mm Hg) 2016-11-12 13:46:00 Raad rial [place] Diastolic (mm Hg) 2016-11-12 13:46:00 Mem orial [place] Respitory Rate 2016-11-11 18:59:00 Memori al [place] Heart Rate 2016-11-11 18:59:00 [facility] [place] Temperature Oral (F) 2016-11-11 18:59:00 97.7 F [facility] [place] Systolic (mm Hg) 2016-11-11 18:59:00 Raad rial [place] Diastolic (mm Hg) 2016-11-11 18:59:00 Mem orial [place] Temperature Oral (F) 2016-11-11 13:30:00 97.5 F [facility] [place] Systolic (mm Hg) 2016-11-11 13:30:00 Raad rial [place] Diastolic (mm Hg) 2016-11-11 13:30:00 Mem orial [place] Respitory Rate 2016-11-11 13:30:00 Memori al [place] Heart Rate 2016-11-11 13:30:00 [facility] [place] Heart Rate 2016-11-11 09:29:00 [facility] [place] Temperature Oral (F) 2016-11-11 09:29:00 97.8 F [facility] [place] Respitory Rate 2016-11-11 09:29:00 Memori al [place] Systolic (mm Hg) 2016-11-11 09:29:00 Raad rial [place] Diastolic (mm Hg) 2016-11-11 09:29:00 Mem orial [place] Weight 2016-11-10 10:09:00 [facility] [place] BMI Calculated 2016-11-10 10:09:00 Memori al [place] Height 2016-11-10 10:09:00 172.72 cm [facility] [place]den Procedures Procedure Date / Time Performing Clinician Source Performed ASSIGNMENT OF BENEFITS 2022-06-08 19:18:51 Doctor Un[facility]igned, [facility] [place] [facility] MAGNESIUM 2022-05-28 09:29:00 Jennifer Frankel [place] [facility] BASIC METABOLIC PANEL 2022-05-28 09:29:00 Jennifer Frankel [facility] (NA, K, CL, CO2, GLUCOSE, Medica l Branch BUN, CREATININE, CA) N-TERMINAL PRO-BNP 2022-05-28 09:29:00 [facility] TROPONIN I 2022-05-28 03:58:00 [facility] LIP[facility] ([id number])(TOTAL 2022-05-28 03:58:00 Oneil Hernandez [facility] CHOLESTEROL, [facility] TRIGLYCERIDES, HDL) GLYCOSYLATED HEMOGLOBIN 2022-05-28 03:58:00 [facility] D-DIMER 2022-05-28 03:58:00 [facility] TR[facility]IN [facility] 2022-05-27 23:54:00 [facility] COVID-19 (ID NOW RAPID 2022-05-27 20:31:00 Yeyo Rogers [facility] TESTING) [facility] XR CHEST 1 VW 2022-05-27 19:33:15 Yeyo Rogers [facility] CREATINE KINASE 2022-05-27 19:10:00 Yeyo Rogers [facility] TROPONIN I 2022-05-27 19:10:00 Yeyo Rogers [facility] COMP. METABOLIC PANEL 2022-05-27 19:10:00 Yeyo Rogers [facility] ([id number]) [facility] CBC WITH DIFF 2022-05-27 19:10:00 Yeyo Rogers [facility] CT HEAD WO CONTRAST 2022-01-02 05:55:20 [facility] 2022-01-02 05:02:45 Doctor Unassigned, [facility] DIAGNOSIS AND TREATMENT [place] [facility] CONSENT/REFUSAL FOR 2021-09-27 07:58:16 Doctor Unassigned, [facility] DIAGNOSIS AND TREATMENT [place] [facility] Eye reconstruction 1993-10-01 00:00:00 [facility] Nose reconstruction 1991-10-01 00:00:00 [facility] Tonsillectomy and 1972-10-01 00:00:00 [facility] adenoidectomy Fracture care [facility] Plan of Care Planned Activity Planned Date Details Comments Source Future Scheduled Test 2022-07-01 00:00:[address] [facility] Seasonal (>/= 19 yrs) [code = IMM Influenza Seasonal (>/= 19 yrs)] Future Scheduled Test 2017 00:00:[address] [facility] malignant neoplasm of colon (procedure) [code = 940297292] Future Scheduled Test 1967 00:00:00 COVID-19 Vaccine (#1) [facility] [code = COVID-19 Vaccine (#1)] Future Scheduled Test 1967 00:00:[address] [facility] [code = Fluoride Varnish] Encounters Start End Encounter Admission Attending Care Care Encounter Source Date/Time Date/Time Type Type Clinicians Facility Department ID 2022-01-02 Outpatient [facility] [id number] [place] 00:16:[address] [place] [address] 2016-11-13 Inpatient E [facility] MED [id number] St. 23:30:00 [facility] 2022-06-08 2022-06-08 Urgent Ursula Song [facility] [id number] Univers 14:20:00 14:40:00 Care DakotautlisetheÇift [facility] [id number] ity of [place] [id number] Cameron as KENRICK?BLEA [id number] [place] [address] MEDICAL OFFICE BUILDING 2022-06-08 2022-06-08 [facility] [id number] Univers 14:20[facility]00 [facility] 2022-[facility]-08 Outpatient R [facility] [id number] Univers 14:00:00 14:00:00 [id number] ity [facility] 2022-06-08 2022-06-08 Orders Doctor FOSS [id number] Univers 00:00:00 00:00:00 Only Unassigned, ISSA [id number] ity of [facility] [id number] Cameron as [id number] [address] 2022-05-27 2022-05-28 [facility]patient [facility] [id number] Univers 14:03:00 11:28:00 JENNIFER [facility] 2022-05-27 2022-05-28 Emergency Mariaelena Mata [facility] [id number] Univers 14:03:00 11:28:00 Yeyo Rogers [id number] ity of Jennifer Frankel [id number] [facility] [id number] [facility] 081 Branch 2022-01-02 2022-01-02 Emergency X [facility] ERT [id number] Univers 00:16:00 01:18:00 NESTOR perea [facility] 2022-01-02 2022-01-02 Emergency [facility] [id number] Univers 00:16:00 01:18:00 Nestor PAL[place] [id number] i ty of [place] [id number] [facility] [id number] [facility] 084 Branch 2021-09-27 2021-09-27 Emergency Reema [facility] ERT [id number] Univers 02:16:00 02:45:00 HAO ity [facility] 2021-09-27 2021-09-27 Emergency [facility] [id number] Univers 02:16:00 02:45:00 Hoa [place] [id number] i ty of [place] [id number] [facility] [id number] [facility] 084 Branch 2021-09-27 2021-09-27 Orders Doctor FOSS [id number] Univers 00:00:00 00:00:00 Only Unassigned, ISSA [id number] ity of [place] [facility] [id number] Cameron [id number] [facility] 009 Branch 2020-01-05 2020-01-05 [facility] [id number] Univers 12:30:57 23:59:00 Encounter Pretty [place] [id number] ity of MEDICAL [id number] [facility] [id number] [address] 2020-01-05 2020-01-05 [facility] Lisa [facility] [id number] 12:30:57 23:59:00 Encounter Pretty [place] [id number] [facility] [id number] [place] [id number] 2020-01-05 2020-01-05 Emergency [facility] [place] [id number] 18:04:00 18:04:00 [facility] 2020-01-05 2020-01-05 Emergency [facility] [id number] [address] 18:04:00 18:04:00 -[id number] [facility] 2020-01-05 2020-01-05 Outpatient Angela SMALL [facility] [id number] Univers 00:00:00 00:00:00 PRETTY beck [facility] 2016-12-19 2016-12-20 [facility] [id number] Memoria 11:27:00 22:08:00 r Jaden 03 [facility] 2016-12-19 2016-12-20 Inpatient [facility] [id number] Memoria 11:27:00 22:08:00 r Jaden 03 [facility] 2016-12-19 2016-12-20 Outpatient Be [facility] [id number] 06:27:00 17:08:00 Luis Fernando Leo 03 2016-11-19 2016-11-19 [facility] [id number] Memoria 00:24:00 03:23:00 r Jaden 02 [facility] 2016-11-19 2016-11-19 [facility] [id number] Memoria 00:24:00 03:23:00 angela Jaden 02 [facility] 2016-11-18 2016-11-18 Outpatient Chris [facility] [id number] 18:24:00 21:23:00 Arminda Ramirez 2016-11-12 2016-11-12 [facility] [id number] Memoria 13:43:00 15:54:00 r Jaden [facility] 2016-11-12 2016-11-12 [facility] [id number] Memoria 13:43:00 15:54:00 r Jaden 01 l [facility] 2016-11-12 2016-11-12 Outpatient Shahla Madden [facility] [id number] 07:43:00 09:54:00 Jonah 2016-11-10 2016-11-11 Inpatient [facility] [id number] Memoria 03:20:00 20:50:00 r [place] l [facility] 2016-11-10 2016-11-11 Inpatient [facility] [id number] Memoria 03:20:00 20:50:00 r [place] 00 l [facility] 2016-11-09 2016-11-11 Outpatient Ela Garvin [facility] [id number] 21:20:00 14:50:00 00 Results Test Description Test Time Test Comments Results Result Comments Source TROPONIN I 2022-05-27 20:00:10 Test Item Value Reference Range Interpretation Comme nts TROPONIN I (test code = 0.002 ng/mL See_Comment [Au tomated message] The [id number]) system which ge nerated this result tra nsmitted reference range : <=0.034. The reference r natasha was not used to int erpret this result as normal/abnormal . HERVE (test code = HERVE) Reference (Normal) Range (defined by the 99th percentile reference limit): <= 0.034 ng/mL Note: Cardiac troponin begins to rise 3-4 hours after the onset of ischemia. Repeat in 4-6 hours if the sample was drawn within 3-4 hours of the onset of the symptom and found normal. Diagnosis of myocardial injury is made with acute changes in cTn concentrations with at least one serial sample above the 99th percentile upper reference limit (URL), taken together with the patient's clinical presentation. Biotin has been reported to cause a negative bias, interpret results relative to patient's use of biotin. Lab Interpretation Normal (test code = 26821-7) [facility]. METABOLIC PANEL (53395)2022-05-27 19:49:33 Test Item Value Reference Range Interpretation Comments NA (test code = 139 mmol/L 135-145 2921407877) K (test code = 3.4 mmol/L 3.5-5 L 8871473524) CL (test code = 104 mmol/L 98-108 9978447738) CO2 TOTAL (test code = 28 mmol/L 23-31 8009228851) AGAP (test code = 2-16 7322739742) BUN (test code = 19 mg/dL 7-23 1229020837) GLUCOSE (test code = 101 mg/dL 70-110 1622894611) CREATININE (test code = 1.02 mg/dL 0.6-1.25 2695284134) TOTAL BILI (test code = 1.3 mg/dL 0.1-1.1 H 4650389735) CALCIUM (test code = 9.0 mg/dL 8.6-10.6 9552568329) T PROTEIN (test code = 7.0 g/dL 6.3-8.2 1785803758) ALBUMIN (test code = 4.3 g/dL 3.5-5 7798154400) ALK PHOS (test code = 70 U/L 34-122 1451536685) ALTv (test code = 37 U/L 5-50 1742-6) AST(SGOT) (test code = 42 U/L 13-40 H 1201856626) eGFR (test code = mL/min/1.73m2 9773285940) HERVE (test code = HERVE) Association of Glomerular Filtration Rate (GFR) and Staging of Kidney Disease* + --+ --+ ------+| GFR (mL/min/1.73 m2) ?| With Kidney Damage ?| ?Without Kidney Damage+ --------+ --------+ +| ?>90 ?| ?Stage one ?| ? Normal ?+ ---+ ---+ -------+| ?60-89 ?| ?Stage two ?| ? Decreased GFR ? + --+ --+ ------+| ?30-59 ?| ?Stage three ?| ? Stage three ? + --+ --+ ------+| ?15-29 ?| ?Stage four ? | ? Stage four ?+ ---+ ---+ -------+| ?<15 (or dialysis) ? ?| ?Stage five ? | ? Stage five ?+ ---+ ---+ -------+ *Each stage assumes the associated GFR level has been in effect for at least three months. ?Stages 1 to 5, with or without kidney disease, indicate chronic kidney disease. Notes: Determination of stages one and two (with eGFR >59mL/min/1.73 m2) requires estimation of kidney damage for at least three months as defined by structural or functional abnormalities of the kidney, manifested by either:Pathological abnormalities or Markers of kidney damage (including abnormalities in the composition of the blood or urine or abnormalities in imaging tests). Lab Interpretation Abnormal (test code = 33828-6) [facility] [id number] 19:48:48 Test Item Value Reference Range Interpretation Comments CK (test code = 2698408622) 159 U/L 33-194 Lab Interpretation (test code = Normal 99495-3) [facility] WITH [id number] 19:26:48 Test Item Value Reference Range Interpretation Comments WBC (test code = See_Comment [Automated 6990-2) message] The sy stem which generated this result transmitted reference range : 4.20 - 10.70 10*3/?L. The reference range was not used to interpret this result as normal/abnormal . RBC (test code = See_Comment [Automated 307-8) message] The sy stem which generated this result transmitted reference range : 4.26 - 5.52 10*6/?L. The reference range was not used to interpret this result as normal/abnormal . HGB (test code = 15.8 g/dL 12.2-16.4 718-7) HCT (test code = 45.9 % 38.4-49.3 4544-3) MCV (test code = 93.5 fL 81.7-95.6 787-2) MCH (test code = 32.2 pg 26.1-32.7 785-6) MCHC (test code = 34.4 g/dL 31.2-35 786-4) RDW-SD (test code = 42.5 fL 38.5-51.6 79229-5) RDW-CV (test code = 12.2 % 12.1-15.4 788-0) PLT (test code = See_Comment [Automated 267-3) message] The sy stem which generated this result transmitted reference range : 150 - 328 10*3/ ?L. The reference r natasha was not used to interpret this result as normal/abnormal . MPV (test code = 8.0 fL 9.8-13 L 64016-4) NRBC/100 WBC (test See_Comment [Automat ed code = 7739201307) message] The system which generated this result transmitted reference range : 0.0 - 10.0 /100 WBCs. The refer ence range was not u sed to interpret th is result as normal/abnormal . NRBC x10^3 (test code See_Comment [Auto mated = 3769708429) message] The s ystem which generated this result transmitted reference range : 10*3/?L. The reference range was not used to interpret this result as normal/abnormal . GRAN MAT (NEUT) % 54.4 % (test code = 770-8) IMM GRAN % (test code 0.30 % = 2001217953) LYMPH % (test code = 32.4 % 736-9) MONO % (test code = 9.2 % 5905-5) EOS % (test code = 3.3 % 713-8) BASO % (test code = 0.4 % 706-2) GRAN MAT x10^3(ANC) 4.06 10*3/uL 1.99-6.95 (test code = 3333541282) IMM GRAN x10^3 (test 0-0.06 code = 0011630974) LYMPH x10^3 (test code 2.42 10*3/uL 1.09-3.23 = 731-0) MONO x10^3 (test code 0.69 10*3/uL 0.36-1.02 = 742-7) EOS x10^3 (test code = 0.25 10*3/uL 0.06-0.53 711-2) BASO x10^3 (test code 0.03 10*3/uL 0.01-0.09 = 704-7) Lab Interpretation Abnormal (test code = 35428-8) [facility] Wpqns3801-29-26 08:29:05 Test Item Value Reference Range Interpretation Comments Sodium Level (test code = Sodium 140.0 mmol/L 135.0-145.0 Level) Potassium Level (test code = 4.1 mmol/L 3.5-5.1 Potassium Level) Chloride Level (test code = 100 mmol/L 98-105 Chloride Level) CO2 (test code = CO2) 27 mmol/L 22-29 Anion Gap (test code = Anion 13 mmol/L 7-16 Gap) BUN (test code = BUN) 18.30 mg/dL 6.00-20.00 Creatinine Level (test code = 0.80 mg/dL 0.70-1.20 Creatinine Level) BUN/Creat Ratio (test code = 23 N BUN/Creat Ratio) Glucose Level (test code = 96 mg/dL 70-115 Glucose Level) Calcium Level (test code = 9.4 mg/dL 8.3-10.5 Calcium Level) Alk Phos (test code = Alk Phos) 57 U/L 40-129 Bilirubin Total (test code = 0.4 mg/dL 0.1-0.9 Bilirubin Total) Albumin Level (test code = 4.4 g/dL 3.5-5.2 Albumin Level) Protein Total (test code = 7.6 g/dL 6.4-8.3 Protein Total) ALT (test code = ALT) 44 U/L 1-41 H AST (test code = AST) 34 U/L 1-40 Globulin (test code = Globulin) 3.2 g/dL 2.9-3.1 H A/G Ratio (test code = A/G 1.4 ratio N Ratio) Comprehensive Metabolic Qsvda2032-29-64 08:29:05 Test Item Value Reference Range Interpretation [...] National Kidney Foundation, http://nkdep.ni h.gov Comprehensive Metabolic Hacjy4860-31-74 08:29:05 Test Item Value Reference Range Interpretation [...] Foundation, http://nkdep.ni h.gov Complete Blood Count without Gsbk9188-22-24 08:07:00 Test Item Value Reference Range Interpretation [...] code = IPF) 0 % N RPR Wgopveyjzjf8825-11-80 11:58:31 Test Item Value Reference Range Interpretation [...] = 09-30-2020 N Expiration Dt) Thyroid Stimulating Rxmdpde7550-59-71 07:31:59 Test Item Value Reference Range Interpretation Comments TSH (test code = TSH) 1.000 mIU/mL 0.270-4.200 Lipid Eyobv5003-81-05 07:11:41 Test Item Value Reference Range Interpretation Comments Cholesterol Total 176 mg/dL 0-200 RISK OF HE ART (test code = DISEASEPublishe d by Cholesterol Total) [place] [employer] Maria G lyte Optimal Borderl ine Increased RiskC HOL <200 200-239 >240TRI G <150 150-199 >200HDL Male >60 <40HDL Fema le >60 <50LDL <100 130 -159 >160LDL [facility]129 Triglycerides (test 68 mg/dL 9-200 [...] is LDL/HDL Ratio=L DL Calc/HDL Chol DRUG [id number] 13:01:00 Test Item Value Reference Range Interpretation Comments UDS Note (test code = See Note (12/19/16 8:01 UDS Note) AM) [facility] [id number] 13:01:00 Test Item Value Reference Range Interpretation Comments U Phencyc Scr (test Negative *NA*(12/19/16 code = U Phencyc Scr) 8:01 AM) [facility] [id number] 13:01:00 Test Item Value Reference Range Interpretation Comments U Opiate Scr (test Negative *NA*(12/19/16 code = U Opiate Scr) 8:01 AM) [facility] [id number] 13:01:00 Test Item Value Reference Range Interpretation Comments U Cannab Scr (test Negative *NA*(12/19/16 code = U Cannab Scr) 8:01 AM) [facility] [id number] 13:01:00 Test Item Value Reference Range Interpretation Comments U Amph Scr (test code Positive *ABN*(12/19/16 = U Amph Scr) 8:01 AM) [facility] [id number] 13:01:00 Test Item Value Reference Range Interpretation Comments U Ysabel Scr (test code Negative *NA*(12/19/16 = U Ysabel Scr) 8:01 AM) [facility] [id number] 13:01:00 Test Item Value Reference Range Interpretation Comments U Benzodia Scr (test Negative *NA*(12/19/16 code = U Benzodia Scr) 8:01 AM) [facility] [id number] 13:01:00 Test Item Value Reference Range Interpretation Comments U Cocaine Scr (test Negative *NA*(12/19/16 code = U Cocaine Scr) 8:01 AM) [facility] [id number] 13:01:00 Test Item Value Reference Range Interpretation Comments U Opiate Scr (test Negative *NA*(12/19/16 code = U Opiate Scr) 8:01 AM) [facility] [id number] 13:01:00 Test Item Value Reference Range Interpretation Comments U Cannab Scr (test Negative *NA*(12/19/16 code = U Cannab Scr) 8:01 AM) [facility] [id number] 13:01:00 Test Item Value Reference Range Interpretation Comments U Amph Scr (test code Positive *ABN*(12/19/16 = U Amph Scr) 8:01 AM) [facility] [id number] 13:01:00 Test Item Value Reference Range Interpretation Comments U Ysabel Scr (test code Negative *NA*(12/19/16 = U Ysabel Scr) 8:01 AM) [facility] [id number] 13:01:00 Test Item Value Reference Range Interpretation Comments U Benzodia Scr (test Negative *NA*(12/19/16 code = U Benzodia Scr) 8:01 AM) [facility] [id number] 13:01:00 Test Item Value Reference Range Interpretation Comments U Cocaine Scr (test Negative *NA*(12/19/16 code = U Cocaine Scr) 8:01 AM) [facility] [id number] 13:01:00 Test Item Value Reference Range Interpretation Comments UDS Note (test code = See Note (12/19/16 8:01 UDS Note) AM) [facility] [id number] 13:01:00 Test Item Value Reference Range Interpretation Comments U Phencyc Scr (test Negative *NA*(12/19/16 code = U Phencyc Scr) 8:01 AM) [facility] [id number] 03:24:00 Test Item Value Reference Range Interpretation Comments Creatinine Lvl (test code = Creatinine 0.90 0.50-1.40 Lvl) [facility] [id number] 03:24:00 Test Item Value Reference Range Interpretation Comments eGFR (test code = eGFR) 100 [facility] [id number] 03:24:00 Test Item Value Reference Range Interpretation Comments AGAP (test code = AGAP) 18.1 10.0-20.0 [facility] [id number] 03:24:00 Test Item Value Reference Range Interpretation Comments CO2 (test code = CO2) 22 24-32 [facility] [id number] 03:24:00 Test Item Value Reference Range Interpretation Comments Chloride Lvl (test code = Chloride Lvl) 97 95-109 [facility] [id number] 03:24:00 Test Item Value Reference Range Interpretation Comments Calcium Lvl (test code = Calcium Lvl) 8.7 8.5-10.5 [facility] [id number] 03:24:00 Test Item Value Reference Range Interpretation Comments Potassium Lvl (test code = Potassium 4.1 3.5-5.1 Lvl) [facility] [id number] 03:24:00 Test Item Value Reference Range Interpretation Comments Sodium Lvl (test code = Sodium Lvl) 133 135-145 [facility]2017-02-19 03:24:00 Test Item Value Reference Range Interpretation Comments Glucose Lvl (test code = Glucose Lvl) 92 70-99 [facility]2017-02-19 03:24:00 Test Item Value Reference Range Interpretation Comments BUN (test code = BUN) 04-21 [facility]2017-02-19 03:24:00 Test Item Value Reference Range Interpretation Comments Creatinine Lvl (test code = Creatinine 0.90 0.50-1.40 Lvl) [facility]2017-02-19 03:24:00 Test Item Value Reference Range Interpretation Comments eGFR (test code = eGFR) 100 [facility]2017-02-19 03:24:00 Test Item Value Reference Range Interpretation Comments AGAP (test code = AGAP) 18.1 10.0-20.0 [facility]2017-02-19 03:24:00 Test Item Value Reference Range Interpretation Comments CO2 (test code = CO2) [facility]2017-02-19 03:24:00 Test Item Value Reference Range Interpretation Comments Chloride Lvl (test code = Chloride Lvl) 97 95-109 [facility]2017-02-19 03:24:00 Test Item Value Reference Range Interpretation Comments Calcium Lvl (test code = Calcium Lvl) 8.7 8.5-10.5 [facility]2017-02-19 03:24:00 Test Item Value Reference Range Interpretation Comments Potassium Lvl (test code = Potassium 4.1 3.5-5.1 Lvl) [facility]2017-02-19 03:24:00 Test Item Value Reference Range Interpretation Comments Sodium Lvl (test code = Sodium Lvl) 133 135-145 [facility]2017-02-19 03:24:00 Test Item Value Reference Range Interpretation Comments Glucose Lvl (test code = Glucose Lvl) 92 70-99 [facility]2017-02-19 03:24:00 Test Item Value Reference Range Interpretation Comments BUN (test code = BUN) 04-21 [facility] BANK [id number] 02:24:00 Test Item Value Reference Range Interpretation Comments ABO/Rh (test code = ABO/Rh) O NEG [facility] BANK [id number] 02:24:00 Test Item Value Reference Range Interpretation Comments Antibody Scrn (test Negative (11/18/16 8:24 code = Antibody Scrn) PM) [facility] [id number] 02:24:00 Test Item Value Reference Range Interpretation Comments U Cocaine Scr (test Positive *ABN*(11/18/16 code = U Cocaine Scr) 8:24 PM) [facility] [id number] 02:24:00 Test Item Value Reference Range Interpretation Comments U Benzodia Scr (test Negative *NA*(11/18/16 code = U Benzodia Scr) 8:24 PM) [facility] [id number] 02:24:00 Test Item Value Reference Range Interpretation Comments U Amph Scr (test code Negative *NA*(11/18/16 = U Amph Scr) 8:24 PM) [facility] [id number] 02:24:00 Test Item Value Reference Range Interpretation Comments U Opiate Scr (test Positive *ABN*(11/18/16 code = U Opiate Scr) 8:24 PM) [facility] [id number] 02:24:00 Test Item Value Reference Range Interpretation Comments U Cannab Scr (test Negative *NA*(11/18/16 code = U Cannab Scr) 8:24 PM) [facility] [id number] 02:24:00 Test Item Value Reference Range Interpretation Comments U Ysabel Scr (test code Negative *NA*(11/18/16 = U Ysabel Scr) 8:24 PM) [facility] [id number] 02:24:00 Test Item Value Reference Range Interpretation Comments U Phencyc Scr (test Negative *NA*(11/18/16 code = U Phencyc Scr) 8:24 PM) [facility] [id number] 02:24:00 Test Item Value Reference Range Interpretation Comments UDS Note (test code = See Note (11/18/16 8:24 UDS Note) PM) [facility] [id number] 02:24:00 Test Item Value Reference Range Interpretation Comments U Propoxyph Scr (test Negative *NA*(2/18/17 code = U Propoxyph Scr) 8:24 PM) [facility]2017-02-19 02:24:00 Test Item Value Reference Range Interpretation Comments U Methadone Scr (test Negative *NA*(11/18/16 code = U Methadone Scr) 8:24 PM) [facility] Ho[id number] 02:24:00 Test Item Value Reference Range Interpretation Comments Monocytes # (test code 0.7 See_Comment [Aut omated message] The = Monocytes #) system which generated this result tra nsmitted reference range : <=0.8. The reference r natasha was not used to int erpret this result as normal/abnormal . [facility] [id number] 02:24:00 Test Item Value Reference Range Interpretation Comments Basophils # (test code 0.1 See_Comment [Aut omated message] The = Basophils #) system which generated this result tra nsmitted reference range : <=0.2. The reference r natasha was not used to int erpret this result as normal/abnormal . [facility] HospitalNfbcuakPTVQDYZQEL7780-68-60 02:24:00 Test Item Value Reference Range Interpretation Comments Eosinophils # (test code 0.1 See_Comment [A utomated message] The = Eosinophils #) system whic h generated this result tra nsmitted reference range : <=0.5. The reference r natasha was not used to int erpret this result as normal/abnormal . [facility] HospitalQwkzogrBMBUNYPTXV1147-90-26 02:24:00 Test Item Value Reference Range Interpretation Comments Segs (test code = Segs) 72.1 45.0-75.0 [facility] HospitalHtvsigeTOOIHIBXQW1250-18-02 02:24:00 Test Item Value Reference Range Interpretation Comments Lymphocytes (test code = Lymphocytes) 20.2 20.0-40.0 [facility] Hospit[id number] 02:24:00 Test Item Value Reference Range Interpretation Comments Monocytes (test code = Monocytes) 6.1 2.0-12.0 [facility] HospitalQusgbncBGIPVMHZFQ5578-75-80 02:24:00 Test Item Value Reference Range Interpretation Comments Segs-Bands # (test code = Segs-Bands #) 8.2 1.5-8.1 [facility] HospitalKnsapqxZWLLENNTGW0365-46-90 02:24:00 Test Item Value Reference Range Interpretation Comments Eosinophils (test code = 0.9 See_Comment [A utomated message] The Eosinophils) system which ge nerated this result tra nsmitted reference range : <=4.0. The reference r natasha was not used to int erpret this result as normal/abnormal . [facility] HospitalMfwxuaySSTFRUSGJK5572-00-47 02:24:00 Test Item Value Reference Range Interpretation Comments Basophils (test code = 0.7 See_Comment [Aut omated message] The Basophils) system which ge nerated this result tra nsmitted reference range : <=1.0. The reference r natasha was not used to int erpret this result as normal/abnormal . [facility] HospitalDtnmzcdIEMTDLABPA3233-74-79 02:24:00 Test Item Value Reference Range Interpretation Comments Lymphocytes # (test code = Lymphocytes 2.3 1.0-5.5 #) [facility] HospitalGkurgjpPKFZTFNSQR9433-14-01 02:24:00 Test Item Value Reference Range Interpretation Comments RBC Morph (test code = Normal (11/18/16 8:24 RBC Morph) PM) [facility] HospitalLcqirkiEFUCZTONOC2395-43-48 02:24:00 Test Item Value Reference Range Interpretation Comments Plt Morph (test code = Normal (11/18/16 8:24 Plt Morph) PM) [facility] HospitalRnoexhnZEDKZJMWTY6473-20-90 02:24:00 Test Item Value Reference Range Interpretation Comments Hgb (test code = Hgb) 15.2 14.0-18.0 [facility] HospitalMljzrpjNFEQOWAKPS0900-96-60 02:24:00 Test Item Value Reference Range Interpretation Comments WBC (test code = WBC) 11.3 3.7-10.4 [facility] HospitalSutolyhRHAUIDGRFZ8079-05-21 02:24:00 Test Item Value Reference Range Interpretation Comments Hct (test code = Hct) 43.2 42.0-54.0 [facility] HospitalBaibppaKKVMWJNVIK7554-97-68 02:24:00 Test Item Value Reference Range Interpretation Comments MCHC (test code = MCHC) 35.1 32.0-36.0 [facility] HospitalBedqhgjPGJFTFPJRW6702-39-83 02:24:00 Test Item Value Reference Range Interpretation Comments RBC (test code = RBC) 4.57 4.70-6.10 [facility] HospitalAyppcqtSRKYSMWZVZ9763-06-30 02:24:00 Test Item Value Reference Range Interpretation Comments MCV (test code = MCV) 94.6 80.0-94.0 [facility]dgqblmXIWMPFRMNH0836-96-71 02:24:00 Test Item Value Reference Range Interpretation Comments RDW (test code = RDW) 12.5 11.5-14.5 [facility]viewGmghbbgNIMVMBGPRW3234-74-02 02:24:00 Test Item Value Reference Range Interpretation Comments MCH (test code = MCH) 33.2 pg 27.0-31.0 [facility] HospitalCkaffocNBQGSSJLHU2634-59-90 02:24:00 Test Item Value Reference Range Interpretation Comments MPV (test code = MPV) 6.6 7.4-10.4 [facility]viewRrptjcpTBKXRFXXWW4532-89-15 02:24:00 Test Item Value Reference Range Interpretation Comments Platelet (test code = Platelet) 231 133-450 [facility]viewBeatgypWYDSNWXGOA6703-80-13 02:24:00 Test Item Value Reference Range Interpretation Comments PT (test code = PT) 13.1 s 12.0-14.7 [facility]viewGovphclFEPVAYOLHC1524-65-69 02:24:00 Test Item Value Reference Range Interpretation Comments INR (test code = INR) 0.97 0.85-1.17 [facility]viewXzdnlaqDUWUZNDYNZ7969-74-92 02:24:00 Test Item Value Reference Range Interpretation Comments PTT (test code = PTT) 27.1 s 22.9-35.8 [facility] [employer] LWWQCKO7915-54-32 02:24:00 Test Item Value Reference Range Interpretation Comments ABO/Rh (test code = ABO/Rh) O NEG [facility] [employer] [id number] 02:24:00 Test Item Value Reference Range Interpretation Comments Antibody Scrn (test Negative (11/18/16 8:24 code = Antibody Scrn) PM) [facility] [id number] 02:24:00 Test Item Value Reference Range Interpretation Comments U Cocaine Scr (test Positive *ABN*(11/18/16 code = U Cocaine Scr) 8:24 PM) [facility] WNJHWP9735-70-39 02:24:00 Test Item Value Reference Range Interpretation Comments U Benzodia Scr (test Negative *NA*(11/18/16 code = U Benzodia Scr) 8:24 PM) [facility] QNKHOJ9912-71-14 02:24:00 Test Item Value Reference Range Interpretation Comments U Amph Scr (test code Negative *NA*(11/18/16 = U Amph Scr) 8:24 PM) [facility] [id number] 02:24:00 Test Item Value Reference Range Interpretation Comments U Opiate Scr (test Positive *ABN*(11/18/16 code = U Opiate Scr) 8:24 PM) [facility] [id number] 02:24:00 Test Item Value Reference Range Interpretation Comments U Cannab Scr (test Negative *NA*(11/18/16 code = U Cannab Scr) 8:24 PM) [facility] [id number] 02:24:00 Test Item Value Reference Range Interpretation Comments U Ysabel Scr (test code Negative *NA*(11/18/16 = U Ysabel Scr) 8:24 PM) [facility] [id number] 02:24:00 Test Item Value Reference Range Interpretation Comments U Phencyc Scr (test Negative *NA*(11/18/16 code = U Phencyc Scr) 8:24 PM) [facility] [id number] 02:24:00 Test Item Value Reference Range Interpretation Comments UDS Note (test code = See Note (11/18/16 8:24 UDS Note) PM) [facility] [id number] 02:24:00 Test Item Value Reference Range Interpretation Comments U Propoxyph Scr (test Negative *NA*(11/18/16 code = U Propoxyph Scr) 8:24 PM) [facility] [id number] 02:24:00 Test Item Value Reference Range Interpretation Comments U Methadone Scr (test Negative *NA*(11/18/16 code = U Methadone Scr) 8:24 PM) [facility]YfnmkjqWIKBRDAFLZ6276-34-14 02:24:00 Test Item Value Reference Range Interpretation Comments Monocytes # (test code 0.7 See_Comment [Aut omated message] The = Monocytes #) system which generated this result tra nsmitted reference range : <=0.8. The reference r natasha was not used to int erpret this result as normal/abnormal . [facility] [id number] 02:24:00 Test Item Value Reference Range Interpretation Comments Basophils # (test code 0.1 See_Comment [Aut omated message] The = Basophils #) system which generated this result tra nsmitted reference range : <=0.2. The reference r natasha was not used to int erpret this result as normal/abnormal . [facility] Hospit[id number] 02:24:00 Test Item Value Reference Range Interpretation Comments Eosinophils # (test code 0.1 See_Comment [A utomated message] The = Eosinophils #) system whic h generated this result tra nsmitted reference range : <=0.5. The reference r natasha was not used to int erpret this result as normal/abnormal . [facility] HospitalRbeabklCSCMAEXCHZ0138-91-35 02:24:00 Test Item Value Reference Range Interpretation Comments Segs (test code = Segs) 72.1 45.0-75.0 [facility] Hospit[id number] 02:24:00 Test Item Value Reference Range Interpretation Comments Lymphocytes (test code = Lymphocytes) 20.2 20.0-40.0 [facility] HospitalHmtdqmbCDFMPVKQAT2550-56-48 02:24:00 Test Item Value Reference Range Interpretation Comments Monocytes (test code = Monocytes) 6.1 2.0-12.0 [facility] HospitalUmjhzaiFKJJWMCOUL4017-74-97 02:24:00 Test Item Value Reference Range Interpretation Comments Segs-Bands # (test code = Segs-Bands #) 8.2 1.5-8.1 [facility] HospitalWaomxvrXLVFIVLOJX1663-74-06 02:24:00 Test Item Value Reference Range Interpretation Comments Eosinophils (test code = 0.9 See_Comment [A utomated message] The Eosinophils) system which ge nerated this result tra nsmitted reference range : <=4.0. The reference r natasha was not used to int erpret this result as normal/abnormal . [facility] HospitalAeaqhadZHTOVUSWTE8871-98-04 02:24:00 Test Item Value Reference Range Interpretation Comments Basophils (test code = 0.7 See_Comment [Aut omated message] The Basophils) system which ge nerated this result tra nsmitted reference range : <=1.0. The reference r natasha was not used to int erpret this result as normal/abnormal . [facility] HospitalKovfofcLXKUPGKZGZ8253-87-54 02:24:00 Test Item Value Reference Range Interpretation Comments Lymphocytes # (test code = Lymphocytes 2.3 1.0-5.5 #) [facility] HospitalKnkgfoaNKGYDTAZFE8206-12-22 02:24:00 Test Item Value Reference Range Interpretation Comments RBC Morph (test code = Normal (11/18/16 8:24 RBC Morph) PM) [facility] Hospit[id number] 02:24:00 Test Item Value Reference Range Interpretation Comments Plt Morph (test code = Normal (11/18/16 8:24 Plt Morph) PM) [facility] HospitalQodvkoaYEXDLEARTI9805-19-59 02:24:00 Test Item Value Reference Range Interpretation Comments Hgb (test code = Hgb) 15.2 14.0-18.0 [facility] HospitalOlcpqfdSHNOCCPUDZ5282-54-21 02:24:00 Test Item Value Reference Range Interpretation Comments WBC (test code = WBC) 11.3 3.7-10.4 [facility] HospitalVcgmyxaXMBVUCOJCM3995-33-24 02:24:00 Test Item Value Reference Range Interpretation Comments Hct (test code = Hct) 43.2 42.0-54.0 [facility] HospitalVfdqxfzMSEJZZIGEQ3023-28-68 02:24:00 Test Item Value Reference Range Interpretation Comments MCHC (test code = MCHC) 35.1 32.0-36.0 [facility] HospitalZhsqwjoWSRERMZTOW2943-19-64 02:24:00 Test Item Value Reference Range Interpretation Comments RBC (test code = RBC) 4.57 4.70-6.10 [facility] HospitalRlnupszHWUMHICRCK9801-34-62 02:24:00 Test Item Value Reference Range Interpretation Comments MCV (test code = MCV) 94.6 80.0-94.0 [facility] HospitalPoeqlthUVLJVEKYVB0206-94-49 02:24:00 Test Item Value Reference Range Interpretation Comments RDW (test code = RDW) 12.5 11.5-14.5 [facility] HospitalBtwwodsYPBOBZZMTB1651-01-10 02:24:00 Test Item Value Reference Range Interpretation Comments MCH (test code = MCH) 33.2 pg 27.0-31.0 [facility] HospitalUtalumaYCAYBXTJJI0381-27-12 02:24:00 Test Item Value Reference Range Interpretation Comments MPV (test code = MPV) 6.6 7.4-10.4 [facility] HospitalMioegiiTSZFKBFEXM6077-98-06 02:24:00 Test Item Value Reference Range Interpretation Comments Platelet (test code = Platelet) 231 133-450 [facility] HospitalGbjnssiTMKACGNEAO5920-98-82 02:24:00 Test Item Value Reference Range Interpretation Comments PT (test code = PT) 13.1 s 12.0-14.7 [facility] HospitalVstkhezDFVQNKUSQH2205-32-03 02:24:00 Test Item Value Reference Range Interpretation Comments INR (test code = INR) 0.97 0.85-1.17 [facility] HospitalQgtyamlTCSFDNIYWQ7770-15-37 02:24:00 Test Item Value Reference Range Interpretation Comments PTT (test code = PTT) 27.1 s 22.9-35.8 [facility]2017-02-11 08:16:00 Test Item Value Reference Range Interpretation Comments Lactic Acid Lvl (test code = Lactic 1.5 0.5-2.2 Acid Lvl) [facility]2017-02-11 08:16:00 Test Item Value Reference Range Interpretation Comments Lactic Acid Lvl (test code = Lactic 1.5 0.5-2.2 Acid Lvl) [facility]2017-02-11 03:15:00 Test Item Value Reference Range Interpretation Comments Lactic Acid Lvl (test code = Lactic 2.9 0.5-2.2 Acid Lvl) [facility]2017-02-11 03:15:00 Test Item Value Reference Range Interpretation Comments Lactic Acid Lvl (test code = Lactic 2.9 0.5-2.2 Acid Lvl) [facility]2017-02-10 15:09:00 Test Item Value Reference Range Interpretation Comments Lactic Acid Lvl (test code = Lactic 3.9 0.5-2.2 Acid Lvl) [facility]2017-02-10 15:09:00 Test Item Value Reference Range Interpretation Comments Lactic Acid Lvl (test code = Lactic 3.9 0.5-2.2 Acid Lvl) [facility] HospitalVsgojiqSWWHTCVILP5310-83-61 08:26:00 Test Item Value Reference Range Interpretation Comments INR (test code = INR) 1.12 0.85-1.17 [facility] HospitalTekxcqlFPOHYVILQT0185-42-66 08:26:00 Test Item Value Reference Range Interpretation Comments PT (test code = PT) 14.6 s 12.0-14.7 [facility] HospitalHjshnauUSGMYTOCUC6692-90-82 08:26:00 Test Item Value Reference Range Interpretation Comments INR (test code = INR) 1.12 0.85-1.17 [facility]VD[facility]AUMPP4762-32-39 08:26:00 Test Item Value Reference Range Interpretation Comments PT (test code = PT) 14.6 s 12.0-14.7 [facility] AND [id number] 07:15:02 Test Item Value Reference Range Interpretation Comments UA RBC (test code = 0-2 /HPF See_Comment [Automa sharri message] The UA RBC) system which ge nerated this result tra nsmitted reference range : <=2. The reference range was not used to interpr et this result as ahmet l/abnormal. [facility] AND [id number] 07:15:02 Test Item Value Reference Range Interpretation Comments UA WBC (test code = UA None Seen (11/10/16 1:15 WBC) AM) [facility] AND [id number] 07:15:02 Test Item Value Reference Range Interpretation Comments UA Sq Epi (test code = None Seen (11/10/16 1:15 UA Sq Epi) AM) [facility] AND [id number] 07:15:02 Test Item Value Reference Range Interpretation Comments UA Bacteria (test code = None Seen (11/10/16 UA Bacteria) 1:15 AM) [facility] AND [id number] 07:15:02 Test Item Value Reference Range Interpretation Comments UA Nitrite (test code Negative (11/10/16 1:15 = UA Nitrite) AM) [facility] AND [id number] 07:15:02 Test Item Value Reference Range Interpretation Comments UA Leuk Est (test Negative (11/10/16 1:15 code = UA Leuk Est) AM) [facility] AND [id number] 07:15:02 Test Item Value Reference Range Interpretation Comments UA Color (test code = Yellow *NA*(11/10/16 UA Color) 1:15 AM) [facility] AND [id number] 07:15:02 Test Item Value Reference Range Interpretation Comments UA pH (test code = UA pH) 5.5 1 5.0-8.0 [facility] AND [id number] 07:15:02 Test Item Value Reference Range Interpretation Comments UA Protein (test code Negative (11/10/16 1:15 = UA Protein) AM) [facility] AND [id number] 07:15:02 Test Item Value Reference Range Interpretation Comments UA Glucose (test code Negative (11/10/16 1:15 = UA Glucose) AM) [facility] AND [id number] 07:15:02 Test Item Value Reference Range Interpretation Comments UA Ketones (test code = UA Ketones) 15 mg/dL [facility] AND [id number] 07:15:02 Test Item Value Reference Range Interpretation Comments UA Bili (test code = Negative *NA*(11/10/16 UA Bili) 1:15 AM) [facility] AND [id number] 07:15:02 Test Item Value Reference Range Interpretation Comments UA Blood (test code = Negative (11/10/16 1:15 UA Blood) AM) [facility] AND [id number] 07:15:02 Test Item Value Reference Range Interpretation Comments UA Urobilinogen (test code = UA 0.2 0.1-1.0 Urobilinogen) [facility] AND [id number] 07:15:02 Test Item Value Reference Range Interpretation Comments UA Turbidity (test code = Clear (11/10/16 1:15 UA Turbidity) AM) [facility] AND [id number] 07:15:02 Test Item Value Reference Range Interpretation Comments UA Spec Grav (test code = UA Spec 1.047 1 Grav) [facility] AND [id number] 07:15:02 Test Item Value Reference Range Interpretation Comments UA RBC (test code = 0-2 /HPF See_Comment [Automa sharri message] The UA RBC) system which ge nerated this result tra nsmitted reference range : <=2. The reference range was not used to interpr et this result as ahmet l/abnormal. [facility] AND [id number] 07:15:02 Test Item Value Reference Range Interpretation Comments UA WBC (test code = UA None Seen (11/10/16 1:15 WBC) AM) [facility] AND [id number] 07:15:02 Test Item Value Reference Range Interpretation Comments UA Sq Epi (test code = None Seen (11/10/16 1:15 UA Sq Epi) AM) [facility] AND [id number] 07:15:02 Test Item Value Reference Range Interpretation Comments UA Bacteria (test code = None Seen (11/10/16 UA Bacteria) 1:15 AM) [facility] AND [id number] 07:15:02 Test Item Value Reference Range Interpretation Comments UA Nitrite (test code Negative (11/10/16 1:15 = UA Nitrite) AM) [facility] AND [id number] 07:15:02 Test Item Value Reference Range Interpretation Comments UA Leuk Est (test Negative (11/10/16 1:15 code = UA Leuk Est) AM) [facility] AND [id number] 07:15:02 Test Item Value Reference Range Interpretation Comments UA Color (test code = Yellow *NA*(11/10/16 UA Color) 1:15 AM) [facility] AND [id number] 07:15:02 Test Item Value Reference Range Interpretation Comments UA pH (test code = UA pH) 5.5 1 5.0-8.0 [facility] AND [id number] 07:15:02 Test Item Value Reference Range Interpretation Comments UA Protein (test code Negative (11/10/16 1:15 = UA Protein) AM) [facility] AND [id number] 07:15:02 Test Item Value Reference Range Interpretation Comments UA Glucose (test code Negative (11/10/16 1:15 = UA Glucose) AM) [facility] AND [id number] 07:15:02 Test Item Value Reference Range Interpretation Comments UA Ketones (test code = UA Ketones) 15 mg/dL [facility] AND [id number] 07:15:02 Test Item Value Reference Range Interpretation Comments UA Bili (test code = Negative *NA*(11/10/16 UA Bili) 1:15 AM) [facility] AND [id number] 07:15:02 Test Item Value Reference Range Interpretation Comments UA Blood (test code = Negative (11/10/16 1:15 UA Blood) AM) [facility] AND [id number] 07:15:02 Test Item Value Reference Range Interpretation Comments UA Urobilinogen (test code = UA 0.2 0.1-1.0 Urobilinogen) [facility] AND [id number] 07:15:02 Test Item Value Reference Range Interpretation Comments UA Turbidity (test code = Clear (11/10/16 1:15 UA Turbidity) AM) [facility] [id number] 07:15:02 Test Item Value Reference Range Interpretation Comments UA Spec Grav (test code = UA Spec 1.047 1 Grav) [facility] [id number] 07:15:00 Test Item Value Reference Range Interpretation Comments UDS Note (test code = See Note (11/10/16 1:15 UDS Note) AM) [facility] [id number] 07:15:00 Test Item Value Reference Range Interpretation Comments U Opiate Scr (test Positive *ABN*(11/10/16 code = U Opiate Scr) 1:15 AM) [facility] [id number] 07:15:00 Test Item Value Reference Range Interpretation Comments U Phencyc Scr (test Negative *NA*(11/10/16 code = U Phencyc Scr) 1:15 AM) [facility] [id number] 07:15:00 Test Item Value Reference Range Interpretation Comments UDS Note (test code = See Note (11/10/16 1:15 UDS Note) AM) [facility] [id number] 07:15:00 Test Item Value Reference Range Interpretation Comments U Opiate Scr (test Positive *ABN*(11/10/16 code = U Opiate Scr) 1:15 AM) [facility] [id number] 07:15:00 Test Item Value Reference Range Interpretation Comments U Phencyc Scr (test Negative *NA*(11/10/16 code = U Phencyc Scr) 1:15 AM) [facility] [id number] 07:15:00 Test Item Value Reference Range Interpretation Comments U Cannab Scr (test Negative *NA*(11/10/16 code = U Cannab Scr) 1:15 AM) [facility] [id number] 07:15:00 Test Item Value Reference Range Interpretation Comments U Cannab Scr (test Negative *NA*(11/10/16 code = U Cannab Scr) 1:15 AM) [facility] [id number] 07:15:00 Test Item Value Reference Range Interpretation Comments U Cocaine Scr (test Positive *ABN*(11/10/16 code = U Cocaine Scr) 1:15 AM) [facility] [id number] 07:15:00 Test Item Value Reference Range Interpretation Comments U Ysabel Scr (test code Negative *NA*(11/10/16 = U Ysabel Scr) 1:15 AM) [facility] [id number] 07:15:00 Test Item Value Reference Range Interpretation Comments U Benzodia Scr (test Negative *NA*(11/10/16 code = U Benzodia Scr) 1:15 AM) [facility] [id number] 07:15:00 Test Item Value Reference Range Interpretation Comments U Amph Scr (test code Negative *NA*(11/10/16 = U Amph Scr) 1:15 AM) [facility] [id number] 07:15:00 Test Item Value Reference Range Interpretation Comments U Cocaine Scr (test Positive *ABN*(11/10/16 code = U Cocaine Scr) 1:15 AM) [facility]2017-02-10 07:15:00 Test Item Value Reference Range Interpretation Comments U Ysabel Scr (test code Negative *NA*(11/10/16 = U Ysabel Scr) 1:15 AM) [facility] [id number] 07:15:00 Test Item Value Reference Range Interpretation Comments U Benzodia Scr (test Negative *NA*(11/10/16 code = U Benzodia Scr) 1:15 AM) [facility]2017-02-10 07:15:00 Test Item Value Reference Range Interpretation Comments U Amph Scr (test code Negative *NA*(11/10/16 = U Amph Scr) 1:15 AM) [id number] 03:40:00 Test Item Value Reference Range Interpretation Comments BUN (test code = BUN) 14 7-22 [facility] HospitalEicikhjLZHKWVXQDAQU9208-07-78 03:40:00 Test Item Value Reference Range Interpretation Comments Glucose Lvl (test code = Glucose Lvl) 80 70-99 [facility] Hospi[id number] 03:40:00 Test Item Value Reference Range Interpretation Comments Creatinine Lvl (test code = Creatinine 1.15 0.50-1.40 Lvl) [facility] Hos[id number] 03:40:00 Test Item Value Reference Range Interpretation Comments Calcium Lvl (test code = Calcium Lvl) 9.0 8.5-10.5 [facility] Hos[id number] 03:40:00 Test Item Value Reference Range Interpretation Comments Segs-Bands # (test code = Segs-Bands #) 10.5 1.5-8.1 [facility] HospitalFxktvgtZLFJJGKRQH4750-57-18 03:40:00 Test Item Value Reference Range Interpretation Comments Eosinophils (test code = 0.5 See_Comment [A utomated message] The Eosinophils) system which ge nerated this result tra nsmitted reference range : <=4.0. The reference r natasha was not used to int erpret this result as normal/abnormal . [facility] HospitalKmoavftOQQCBIUWCN0657-42-74 03:40:00 Test Item Value Reference Range Interpretation Comments Basophils (test code = 1.1 See_Comment [Aut omated message] The Basophils) system which ge nerated this result tra nsmitted reference range : <=1.0. The reference r natasha was not used to int erpret this result as normal/abnormal . [facility] Hospit[id number] 03:40:00 Test Item Value Reference Range Interpretation Comments Lymphocytes # (test code = Lymphocytes 4.0 1.0-5.5 #) [facility] Hospit[id number] 03:40:00 Test Item Value Reference Range Interpretation Comments Monocytes # (test code 0.8 See_Comment [Aut omated message] The = Monocytes #) system which generated this result tra nsmitted reference range : <=0.8. The reference r natasha was not used to int erpret this result as normal/abnormal . [facility] Hospit[id number] 03:40:00 Test Item Value Reference Range Interpretation Comments Eosinophils # (test code 0.1 See_Comment [A utomated message] The = Eosinophils #) system whic h generated this result tra nsmitted reference range : <=0.5. The reference r natasha was not used to int erpret this result as normal/abnormal . [facility] Hospit[id number] 03:40:00 Test Item Value Reference Range Interpretation Comments Basophils # (test code 0.2 See_Comment [Aut omated message] The = Basophils #) system which generated this result tra nsmitted reference range : <=0.2. The reference r natasha was not used to int erpret this result as normal/abnormal . [facility] HospitalRautonqYOCQYUYCDV8355-23-70 03:40:00 Test Item Value Reference Range Interpretation Comments Segs (test code = Segs) 67.1 45.0-75.0 [facility] Hos[id number] 03:40:00 Test Item Value Reference Range Interpretation Comments Lymphocytes (test code = Lymphocytes) 26.0 20.0-40.0 [facility] HospitalVquggukBAMDKKWOYG6549-65-40 03:40:00 Test Item Value Reference Range Interpretation Comments Monocytes (test code = Monocytes) 5.3 2.0-12.0 [facility] HospitalSksngtqVEGQQXFQNH3193-34-40 03:40:00 Test Item Value Reference Range Interpretation Comments RDW (test code = RDW) 12.8 11.5-14.5 [facility] HospitalTvpocxsUVYLBWKUFX3885-71-28 03:40:00 Test Item Value Reference Range Interpretation Comments Platelet (test code = Platelet) 189 133-450 [facility] Hospit[id number] 03:40:00 Test Item Value Reference Range Interpretation Comments MPV (test code = MPV) 6.1 7.4-10.4 [facility] HospitalLykhxfiVRCSLGWGEE5126-37-65 03:40:00 Test Item Value Reference Range Interpretation Comments Hgb (test code = Hgb) 15.9 14.0-18.0 [facility] Hospit[id number] 03:40:00 Test Item Value Reference Range Interpretation Comments Hct (test code = Hct) 45.4 42.0-54.0 [facility] HospitalEazdkwxFECYKMPQSW7760-67-94 03:40:00 Test Item Value Reference Range Interpretation Comments MCV (test code = MCV) 95.1 80.0-94.0 [facility] HospitalXhcnfttLVZUTEVQGE1148-77-89 03:40:00 Test Item Value Reference Range Interpretation Comments MCH (test code = MCH) 33.3 pg 27.0-31.0 [facility] HospitalByyaifyIVVQWNCAYQ8262-31-24 03:40:00 Test Item Value Reference Range Interpretation Comments MCHC (test code = MCHC) 35.0 32.0-36.0 [facility] HospitalTdwmrogAKLSSKOIFR3375-75-61 03:40:00 Test Item Value Reference Range Interpretation Comments WBC (test code = WBC) 15.6 3.7-10.4 [facility] HospitalUwcrwkiBLUAEARNDH1053-28-91 03:40:00 Test Item Value Reference Range Interpretation Comments RBC (test code = RBC) 4.77 4.70-6.10 [facility] HospitalHtddvfnRWEJCLNGHG4512-51-01 03:40:00 Test Item Value Reference Range Interpretation Comments G-value Rapid (test code = G-value 3.7 5.0-11.6 Rapid) [facility] HospitalVhiymloFTFEAWUOGF5917-52-49 03:40:00 Test Item Value Reference Range Interpretation Comments Max Amplitude Rapid (test code = Max 42 mm 52-71 Amplitude Rapid) [facility] HospitalSwlrpmnWKYDOQDSYU7450-72-16 03:40:00 Test Item Value Reference Range Interpretation Comments Estimated % Lysis Rapid 3.4 See_Comment [Au tomated message] The (test code = Estimated syste m which generated % Lysis Rapid) this result t ransmitted reference range : <=7.5. The reference r natasha was not used to int erpret this result as normal/abnormal . [facility] HospitalOpietsuHAHAWNBMAS2388-38-22 03:40:00 Test Item Value Reference Range Interpretation Comments Split Point Rapid (test code = Split 0.7 min Point Rapid) [facility] HospitalCrzjlrlOPYODFLGXC2427-54-89 03:40:00 Test Item Value Reference Range Interpretation Comments R-time Rapid (test code = R-time 1.1 min 0.4-0.7 Rapid) [facility] HospitalRztpayhTPMBJRJCJK1272-77-15 03:40:00 Test Item Value Reference Range Interpretation Comments ACT (TEG) Rapid (test code = ACT (TEG) 152 s 86-118 Rapid) [facility] Hospit[id number] 03:40:00 Test Item Value Reference Range Interpretation Comments K-time Rapid (test code = K-time 4.1 min 0.6-2.3 Rapid) [facility] HospitalCyohzmdDXIDISTPXH9976-65-35 03:40:00 Test Item Value Reference Range Interpretation Comments Angle Rapid (test code = Angle 48 degrees 64-80 Rapid) [place] [id number] 03:40:00 Test Item Value Reference Range Interpretation Comments Etoh (%) (test code = Etoh (%)) 0.148 [place] [id number] 03:40:00 Test Item Value Reference Range Interpretation Comments Ethanol Lvl (test code = Ethanol Lvl) 148 [facility] HospitalWzfotyhGDAJHZXFHHPB6785-28-93 03:40:00 Test Item Value Reference Range Interpretation Comments AGAP (test code = AGAP) 18.2 10.0-20.0 [facility] HospitalRmulppeOOEGZKFIYXVG4107-37-16 03:40:00 Test Item Value Reference Range Interpretation Comments eGFR (test code = eGFR) 86 [facility] HospitalLbsqcbsVSLOGTVIMEAK8371-57-46 03:40:00 Test Item Value Reference Range Interpretation Comments Sodium Lvl (test code = Sodium Lvl) 137 135-145 [facility] HospitalFonsgryYTPYZHMPWMXT8345-91-21 03:40:00 Test Item Value Reference Range Interpretation Comments CO2 (test code = CO2) 24 24-32 [facility] HospitalGwqzdrnPDBXBESJNLZD1314-94-51 03:40:00 Test Item Value Reference Range Interpretation Comments Chloride Lvl (test code = Chloride Lvl) 98 95-109 [facility] HospitalKmuyckwNTBNDMTSSLVA8504-28-94 03:40:00 Test Item Value Reference Range Interpretation Comments Potassium Lvl (test code = Potassium 3.2 3.5-5.1 Lvl) [facility] HospitalPokegflRXCYKZVMUXFP2876-22-06 03:40:00 Test Item Value Reference Range Interpretation Comments BUN (test code = BUN) 14 7-22 [facility] HospitalXtjnngjMRUFWHCHYOQZ7162-15-78 03:40:00 Test Item Value Reference Range Interpretation Comments Glucose Lvl (test code = Glucose Lvl) 80 70-99 [facility] HospitalRxhuhskVOZLXYXUMZDS5235-42-35 03:40:00 Test Item Value Reference Range Interpretation Comments Creatinine Lvl (test code = Creatinine 1.15 0.50-1.40 Lvl) [facility] HospitalSnngavgPYCWWXGTGZZH5711-52-62 03:40:00 Test Item Value Reference Range Interpretation Comments Calcium Lvl (test code = Calcium Lvl) 9.0 8.5-10.5 [facility] HospitalHotrlvbSXRHJPFZNN5502-51-91 03:40:00 Test Item Value Reference Range Interpretation Comments Segs-Bands # (test code = Segs-Bands #) 10.5 1.5-8.1 [facility] HospitalSlnfkttKMQWSLXYAT2544-98-09 03:40:00 Test Item Value Reference Range Interpretation Comments Eosinophils (test code = 0.5 See_Comment [A utomated message] The Eosinophils) system which ge nerated this result tra nsmitted reference range : <=4.0. The reference r natasha was not used to int erpret this result as normal/abnormal . [facility] HospitalFjiepehTRQISZORBD0680-64-59 03:40:00 Test Item Value Reference Range Interpretation Comments Basophils (test code = 1.1 See_Comment [Aut omated message] The Basophils) system which ge nerated this result tra nsmitted reference range : <=1.0. The reference r natasha was not used to int erpret this result as normal/abnormal . [facility] HospitalThhaqnmXGIJWISOEL5252-55-06 03:40:00 Test Item Value Reference Range Interpretation Comments Lymphocytes # (test code = Lymphocytes 4.0 1.0-5.5 #) [facility] HospitalBzsrqnuFXDHMLNZCD6313-25-38 03:40:00 Test Item Value Reference Range Interpretation Comments Monocytes # (test code 0.8 See_Comment [Aut omated message] The = Monocytes #) system which generated this result tra nsmitted reference range : <=0.8. The reference r natasha was not used to int erpret this result as normal/abnormal . [facility] HospitalToqdkioJYQMPWCWDA6329-12-20 03:40:00 Test Item Value Reference Range Interpretation Comments Eosinophils # (test code 0.1 See_Comment [A utomated message] The = Eosinophils #) system whic h generated this result tra nsmitted reference range : <=0.5. The reference r natasha was not used to int erpret this result as normal/abnormal . [facility] HospitalKpkdkieUZXVJGNYEJ8917-13-31 03:40:00 Test Item Value Reference Range Interpretation Comments Basophils # (test code 0.2 See_Comment [Aut omated message] The = Basophils #) system which generated this result tra nsmitted reference range : <=0.2. The reference r natasha was not used to int erpret this result as normal/abnormal . [facility] HospitalZvuvzwbDBTDIEHAGR2444-03-78 03:40:00 Test Item Value Reference Range Interpretation Comments Segs (test code = Segs) 67.1 45.0-75.0 [facility] HospitalVlfbaqkHOJKWRXIDO0348-52-21 03:40:00 Test Item Value Reference Range Interpretation Comments Lymphocytes (test code = Lymphocytes) 26.0 20.0-40.0 [facility] HospitalNxxzrufXANWTEMKYT5114-72-63 03:40:00 Test Item Value Reference Range Interpretation Comments Monocytes (test code = Monocytes) 5.3 2.0-12.0 [facility] HospitalZajxixpZNQMDLGCQT8274-17-30 03:40:00 Test Item Value Reference Range Interpretation Comments RDW (test code = RDW) 12.8 11.5-14.5 [facility] HospitalBmsabztDBNTJVFUNX8815-71-93 03:40:00 Test Item Value Reference Range Interpretation Comments Platelet (test code = Platelet) 189 133-450 [facility] HospitalSafuikaJXMJAWZVEX6366-26-27 03:40:00 Test Item Value Reference Range Interpretation Comments MPV (test code = MPV) 6.1 7.4-10.4 [facility] HospitalDojgrkqJHWDNJJDFF1607-73-47 03:40:00 Test Item Value Reference Range Interpretation Comments Hgb (test code = Hgb) 15.9 14.0-18.0 [facility] HospitalUihynmuWFMZHOZLIP1408-68-03 03:40:00 Test Item Value Reference Range Interpretation Comments Hct (test code = Hct) 45.4 42.0-54.0 [facility] HospitalZetnchqCHDCHSREHY5859-25-08 03:40:00 Test Item Value Reference Range Interpretation Comments MCV (test code = MCV) 95.1 80.0-94.0 [facility] HospitalFxqizkwPDMFXWGWHE4675-50-22 03:40:00 Test Item Value Reference Range Interpretation Comments MCH (test code = MCH) 33.3 pg 27.0-31.0 [facility] HospitalAawldliZBBRDRXGMY0052-45-93 03:40:00 Test Item Value Reference Range Interpretation Comments MCHC (test code = MCHC) 35.0 32.0-36.0 [facility] HospitalTenfityCIKZQQAGRL0047-51-08 03:40:00 Test Item Value Reference Range Interpretation Comments WBC (test code = WBC) 15.6 3.7-10.4 [facility] Hospit[id number] 03:40:00 Test Item Value Reference Range Interpretation Comments RBC (test code = RBC) 4.77 4.70-6.10 [facility] HospitalMmhlzuaSMOVLEVBXA9651-03-80 03:40:00 Test Item Value Reference Range Interpretation Comments G-value Rapid (test code = G-value 3.7 5.0-11.6 Rapid) [facility] HospitalNxuauzhQWVDFPZMJD5467-50-13 03:40:00 Test Item Value Reference Range Interpretation Comments Max Amplitude Rapid (test code = Max 42 mm 52-71 Amplitude Rapid) [facility] HospitalHwinxxmMSGSYQKSQF7119-72-53 03:40:00 Test Item Value Reference Range Interpretation Comments Estimated % Lysis Rapid 3.4 See_Comment [Au tomated message] The (test code = Estimated syste m which generated % Lysis Rapid) this result t ransmitted reference range : <=7.5. The reference r natasha was not used to int erpret this result as normal/abnormal . [facility] HospitalPkcqcowPHRRSETEQG3814-37-53 03:40:00 Test Item Value Reference Range Interpretation Comments Split Point Rapid (test code = Split 0.7 min Point Rapid) [facility] HospitalMloecftARRNQDCFMA1071-64-48 03:40:00 Test Item Value Reference Range Interpretation Comments R-time Rapid (test code = R-time 1.1 min 0.4-0.7 Rapid) [facility] HospitalSjfnlzdVPBIXZQHJW2418-24-20 03:40:00 Test Item Value Reference Range Interpretation Comments ACT (TEG) Rapid (test code = ACT (TEG) 152 s 86-118 Rapid) [facility] HospitalKwscdygRRGIMTRHFW0899-13-43 03:40:00 Test Item Value Reference Range Interpretation Comments K-time Rapid (test code = K-time 4.1 min 0.6-2.3 Rapid) [facility] HospitalGwugshnHTBZDQAYFV4470-33-20 03:40:00 Test Item Value Reference Range Interpretation Comments Angle Rapid (test code = Angle 48 degrees 64-80 Rapid) [facility]SnaszbqPEELZAXRNC9035-98-30 03:40:00 Test Item Value Reference Range Interpretation Comments Etoh (%) (test code = Etoh (%)) 0.148 [place] [id number] 03:40:00 Test Item Value Reference Range Interpretation Comments Ethanol Lvl (test code = Ethanol Lvl) 148 [facility] HospitalKozjqypKAVLWZGWHIXW2471-37-33 03:40:00 Test Item Value Reference Range Interpretation Comments AGAP (test code = AGAP) 18.2 10.0-20.0 [facility] HospitalYzrynzoOJHVRWFDRURE6310-69-93 03:40:00 Test Item Value Reference Range Interpretation Comments eGFR (test code = eGFR) 86 [facility] HospitalYuczftiQVPCFIYYYPEW0956-67-90 03:40:00 Test Item Value Reference Range Interpretation Comments Sodium Lvl (test code = Sodium Lvl) 137 135-145 [facility] WplwwidPRXVCUUEDBJA2549-30-67 03:40:00 Test Item Value Reference Range Interpretation Comments CO2 (test code = CO2) 24 24-32 [facility]RfcfyevXMSLTYHKMBMB7451-65-16 03:40:00 Test Item Value Reference Range Interpretation Comments Chloride Lvl (test code = Chloride Lvl) 98 95-109 [facility] CampusGvpjcijBYCMIBHLTCLD9448-88-70 03:40:00 Test Item Value Reference Range Interpretation Comments Potassium Lvl (test code = Potassium 3.2 3.5-5.1 Lvl) [employer] [id number] 03:38:00 Test Item Value Reference Range Interpretation Comments ABO/Rh (test code = ABO/Rh) O NEG [employer] [id number] 03:38:00 Test Item Value Reference Range Interpretation Comments Antibody Scrn (test Negative (11/09/16 9:38 code = Antibody Scrn) PM) [employer] [id number] 03:38:00 Test Item Value Reference Range Interpretation Comments ABO/Rh (test code = ABO/Rh) O NEG [employer] [id number] 03:38:00 Test Item Value Reference Range Interpretation Comments Antibody Scrn (test Negative (11/09/16 9:38 code = Antibody Scrn) PM) [employer]
[2022-06-15] MEDS ORDERED: HYDROCODONE/APAP 7.5/325 MG TAB ONE (17:22)
[2022-06-15] MEDS ORDERED: BUPIVACAINE 0.5% PF 10 ML VIAL ONE (17:22)
[2022-06-15] MEDS ORDERED: LIDOCAINE 2% W/EPI 1:200,000 MPF 20 ML VIAL IM ONE (17:22)
--- NOTE | 2022-06-15 18:00 | RAD REPORT ---
EXAM DESCRIPTION: RAD - Ankle Left 3 View - 06/15/2022 5:48 pm CLINICAL HISTORY: Pain COMPARISON: No comparisons FINDINGS: Soft tissue swelling is present about the ankle, greatest laterally. No soft tissue gas. N o fracture seen. Lateral fibular sideplate is present with multiple screws. Two syndesmotic screws ar e present, the inferior of which shows a fracture. The superior syndesmotic screw and to lesser exten t the inferior screw show slight lucency as a traverse the fibula. Ununited medial malleolar fracture present. IMPRESSION: Soft tissue swelling laterally is present. Hardware is present in the ankle as detailed.
--- NOTE | 2022-06-15 18:11 | RAD REPORT ---
EXAM DESCRIPTION: US - Extremity Venous Uni Ltd - 06/15/2022 6:06 pm CLINICAL HISTORY: SWELLING Leg swelling and edema. COMPARISON: Extremity Venous Uni Ltd dated 12/11/2016 FINDINGS: Left lower extremity venous system was interrogated with Doppler technique. Normal flow, c ompressibility and augmentation was noted. There is no DVT present. IMPRESSION: No evidence of left lower extremity deep venous thrombosis.
--- NOTE | 2022-06-15 18:53 | ER ---
[facility] Name: Bro Yung Age: 57 yrs Sex: Male : 1965 Arrival Date: 06/15/2022 Time: 14:25 Bed 10 Private MD: Diagnosis: Cutaneous abscess of left lower limb-left ankle Presentation: 06/15 14:25 Chief complaint: EMS states: pt c/o spider or a boil on his LEFT ankle. it is red and tw2 swollen with green pus coming out. he said he went to urgent care about a week ago and couldn't afford the antibiotics. he did have ankle surgery in the same area 5 years ago and there is a kody there. vs stable. 15:22 Chief complaint: Patient states: i have this boil on my LEFT ankle and my RIGHT ear tw2 there is something inside my ear its alive. i know it sounds crazy. the spot on my ankle started about a week ago. Coronavirus screen: At this time, the client does not indicate any symptoms associated with coronavirus-19. Ebola Screen: Patient denies travel to an Ebola-affected area in the 21 days before illness onset. Initial Sepsis Screen: Does the patient meet any 2 criteria? No. Patient's initial sepsis screen is negative. Does the patient have a suspected source of infection? No. Patient's initial sepsis screen is negative. Risk Assessment: Do you want to hurt yourself or someone else? Patient reports no desire to harm self or others. Onset of symptoms was June 15, 2022. 15:22 Method Of Arrival: EMS: [facility] tw2 15:22 Acuity: PATRICIO 4 tw2 Triage Assessment: 15:29 General: Appears in no apparent distress. Behavior is calm, cooperative, appropriate tw2 for age. Pain: Complains of pain in left ankle. Neuro: Level of Consciousness is obeys commands, pt is drowsy states "i have been up a couple of days". Oriented to person, place, situation. Respiratory: Airway is patent Respiratory effort is even, unlabored, Respiratory pattern is regular, symmetrical. 15:30 Derm: Abscess located on left lateral ankle. tw2 Historical: - Allergies: 15:28 No Known Allergies; tw2 - Home Meds: 15:28 None [Active]; tw2 - PMHx: 15:28 Anxiety; Bipolar disorder; Depression; tw2 - PSHx: 15:28 Ankle; eye; Nose; Tonsillectomy; tw2 - Immunization history:: Last tetanus immunization: < 5 years ago. - Social history:: Smoking status: Patient reports the use of cigarette tobacco products, smokes one pack cigarettes per day. Patient uses street drugs, Methamphetamine (Meth) "i have a meth problem, i use everyday". Screenin:30 Abuse screen: Denies threats or abuse. Denies injuries from another. Nutritional kb3 screening: No deficits noted. Tuberculosis screening: No symptoms or risk factors identified. Fall Risk None identified. Assessment: 16:30 General: Appears in no apparent distress. slender, unkempt, Behavior is calm, kb3 cooperative, Pt sleeping. RN asked multiple questions about pt's wound. Pt covered his head with a sheet. Mumbling answers to questions. When asked why pt was so sleepy and wasn't answering questions, Pt stated "I'm awake. I'm awake." He then covered his head again with the sheet. Left ankle noted to be swollen and red with a solver dollar-sized wound draining small amount of purulent drainage to the left lateral malleolus. Pt reporting it as a spider bite. . 16:30 Derm: Abscess located on left lateral malleolus. kb3 18:25 General: Pt resting quietly. No s/s of distress. kb3 19:24 General: Pt very upset that Rob will not admit him because he does not have a ride kb3 home. This RN offered to assist him to locate a ride and pt stated "this is bullshit, I will just walk home." Pt refuse vitals upon discharge. Vital Signs: 15:22 BP 121 / 84; Pulse 78; Resp 16; Temp 98.4(TE); Pulse Ox 100% on R/A; Weight 68.04 kg tw2 (M); Height 5 ft. 8 in. (172.72 cm) (M); Pain 8/10; 15:22 Body Mass Index 22.81 (68.04 kg, 172.72 cm) tw2 ED Course: 14:25 Patient arrived in ED. rg4 15:08 Rob Mcclain PA is PHCP. cp 15:08 Rob Stein MD is Attending Physician. cp 15:28 Triage completed. tw2 15:28 Arm band placed on. tw2 16:28 Celeste Maguire, RN is Primary Nurse. kb3 16:30 Patient has correct armband on for positive identification. Bed in low position. Call kb3 light in reach. Side rails up X2. Warm blanket given. 17:10 Assist provider with I \\T\\ D: Set up I\\T\\D tray. kb 3 17:49 XRAY Ankle LEFT 3 view In Process Unspecified. EDMS 18:08 US Extremity Venous Unilateral Ltd In Process Unspecified. EDMS 19:26 Patient did not have IV access during this emergency room visit. kb3 Administered Medications: 17:20 Drug: Hydrocodone-Acetaminophen (7.5 mg-325 mg) 1 tabs Route: PO; kb3 18:30 Follow up: Response: No adverse reaction; Pain is decreased kb3 18:30 Drug: Lidocaine-Epinephrine -1%: (1:100,000) 10 ml {Note: Rob HAMMOND administered kb3 during I\\T\\D procedure.} Volume: 20 ml; Route: Infiltration; 19:14 Follow up: Response: No adverse reaction kb3 18:30 Drug: Marcaine (bupivacaine) (0.5 %) 10 ml {Note: Rob HAMMOND administered during I\\T\\D kb3 procedure.} Volume: 10 ml; Route: Infiltration; 19:14 Follow up: Response: No adverse reaction kb3 19:03 Drug: Bactrim (trimethoprim-sulfamethoxazole) (160 mg-800 mg (DS) 1 tablet Route: PO; kb3 19:14 Follow up: Response: No adverse reaction kb3 19:03 Drug: Clindamycin 300 mg Route: PO; kb3 19:14 Follow up: Response: No adverse reaction kb3 Medication: 16:30 VIS not applicable for this client. kb3 Outcome: 18:52 Discharge ordered by . cp 19:25 Discharged to home ambulatory. kb3 19:25 Condition: stable 19:25 Discharge instructions given to patient, Instructed on discharge instructions, follow up and referral plans. medication usage, Demonstrated understanding of instructions, follow-up care, medications, Prescriptions given X 3. 19:26 Patient left the ED. kb3 Signatures: Dispatcher [employer] EDMI Rob Mcclain PA PA cp Wise, Tara RN RN tw2 Raquel Lloyd rg4 Andrez, Celeste, RN RN kb3
--- NOTE | 2022-06-15 18:53 | EDPHYS ---
Physician Documentation [facility] Name: Bro Yung Age: 57 yrs Sex: Male : 1965 Arrival Date: 06/15/2022 Time: 14:25 Bed 10 Private MD: KACIE Physician Rob Stein HPI: 06/15 17:00 This 57 yrs old Male presents to ER via EMS with complaints of Boil. cp 17:00 The patient presents with an abscess, small. The complaints affect the lateral side cp left ankle. 17:00 Context: resulted from an unknown cause, the patient can fully bear weight, the patient cp is able to ambulate, with mild difficulty. Onset: The symptoms/episode began/occurred over 1 week ago. Associated signs and symptoms: The patient has no apparent associated signs or symptoms. Historical: - Allergies: 15:28 No Known Allergies; tw2 - Home Meds: 15:28 None [Active]; tw2 - PMHx: 15:28 Anxiety; Bipolar disorder; Depression; tw2 - PSHx: 15:28 Ankle; eye; Nose; Tonsillectomy; tw2 - Immunization history:: Last tetanus immunization: < 5 years ago. - Social history:: Smoking status: Patient reports the use of cigarette tobacco products, smokes one pack cigarettes per day. Patient uses street drugs, Methamphetamine (Meth) "i have a meth problem, i use everyday". ROS: 17:05 Skin: Positive for abscess, cellulitis, of the left lateral ankle. cp 17:05 Constitutional: Negative for body aches, chills, fever, poor PO intake. cp Exam: 17:10 Constitutional: The patient appears in no acute distress, alert, awake, non-toxic, well cp developed, well nourished. 17:10 Head/Face: Normocephalic, atraumatic. cp 17:10 Cardiovascular: Rate: normal. 17:10 Respiratory: the patient does not display signs of respiratory distress, Respirations: normal, no use of accessory muscles, no retractions, labored breathing, is not present. 17:10 Abdomen/GI: Exam negative for discomfort, distension, guarding, Inspection: abdomen appears normal. 17:10 Back: pain, is absent, ROM is normal. 17:10 Skin: abscess, that is small, of the left lateral ankle, with surrounding cellulitis, that is mild, mild swelling. 17:10 Neuro: Orientation: to person, place \\T\\ time. Mentation: is normal. Vital Signs: 15:22 BP 121 / 84; Pulse 78; Resp 16; Temp 98.4(TE); Pulse Ox 100% on R/A; Weight 68.04 kg tw2 (M); Height 5 ft. 8 in. (172.72 cm) (M); Pain 8/10; 15:22 Body Mass Index 22.81 (68.04 kg, 172.72 cm) tw2 MDM: 16:17 Patient medically screened. [facility] 18:52 Data reviewed: vital signs, nurses notes, radiologic studies, plain films. 18:52 Test interpretation: by ED physician or midlevel provider: plain radiologic studies. cp Counseling: I had a detailed discussion with the patient and/or guardian regarding: the historical points, exam findings, and any diagnostic results supporting the discharge/admit diagnosis, radiology results, the need for outpatient follow up, a family practitioner, to return to the emergency department if symptoms worsen or persist or if there are any questions or concerns that arise at home. Response to treatment: the patient's symptoms have mildly improved after treatment, and as a result, I will discharge patient. 06/15 17:16 Order name: US Extremity Venous Unilateral Ltd; Complete Time: 18:13 06/15 18:13 Interpretation: Report reviewed. 06/15 17:16 Order name: XRAY Ankle LEFT 3 view; Complete Time: 18:13 06/15 16:43 Order name: I\\T\\D Setup; Complete Time: 17:09 cp Administered Medications: 17:20 Drug: Hydrocodone-Acetaminophen (7.5 mg-325 mg) 1 tabs Route: PO; kb3 18:30 Follow up: Response: No adverse reaction; Pain is decreased kb3 18:30 Drug: Lidocaine-Epinephrine -1%: (1:100,000) 10 ml {Note: Rob HAMMOND administered kb3 during I\\T\\D procedure.} Volume: 20 ml; Route: Infiltration; 19:14 Follow up: Response: No adverse reaction kb3 18:30 Drug: Marcaine (bupivacaine) (0.5 %) 10 ml {Note: Rob HAMMOND administered during I\\T\\D kb3 procedure.} Volume: 10 ml; Route: Infiltration; 19:14 Follow up: Response: No adverse reaction kb3 19:03 Drug: Bactrim (trimethoprim-sulfamethoxazole) (160 mg-800 mg (DS) 1 tablet Route: PO; kb3 19:14 Follow up: Response: No adverse reaction kb3 19:03 Drug: Clindamycin 300 mg Route: PO; kb3 19:14 Follow up: Response: No adverse reaction kb3 Disposition Summary: 06/15/22 18:52 Discharge Ordered Location: Home cp Problem: new cp Symptoms: have improved cp Condition: Stable cp Diagnosis - Cutaneous abscess of left lower limb - left ankle cp Followup: cp - With: Private Physician - When: 1 - 2 days - Reason: Wound Recheck Discharge Instructions: - Discharge Summary Sheet cp - Skin Abscess cp - Incision and Drainage cp Forms: - Medication Reconciliation Form cp - Thank You Letter cp - Antibiotic Education cp - Prescription Opioid Use cp Prescriptions: - Clindamycin HCl 300 mg Oral Capsule - take 1 capsule by ORAL route every 6 hours for 10 days; 40 capsule; Refills: 0, cp Product Selection Permitted - Bactrim DS 800-160 mg Oral Tablet - take 1 tablet by ORAL route every 12 hours for 10 days; 20 tablet; Refills: 0, cp Product Selection Permitted - Diclofenac Sodium 75 mg Oral Tablet Sustained Release - take 1 tablet by ORAL route 2 times per day; 30 tablet; Refills: 0, Product cp Selection Permitted Signatures: Dispatcher [employer] Rob Ramos MD MD cha Page, Corey, PA PA cp Lindsey Paredes RN RN tw2 Celeste Maguire RN RN kb3
[2022-06-15] MEDS ORDERED: SMZ./TMP. 800/160 MG TABLET ONE (19:13)
[2022-06-17 02:17] VITALS: BP 121/84; TEMP 98.4; O2SAT 100
== END 2022-06-15 19:26 | disposition home or self-care (01) ==
LOC: ER 14:20
PROC: 0H9LXZZ Drainage of Left Lower Leg Skin, External Approach (ICD-10-PCS; principal; 2022-06-15)
DX: L02.416 Cutaneous abscess of left lower limb (principal); F31.9 Bipolar disorder, unspecified; F17.210 Nicotine dependence, cigarettes, uncomplicated
CPT/HCPCS: 93971; 99284

== ENCOUNTER 2022-07-17 15:17 | Emergency (ER) | payer OTHER ==
--- OUTSIDE RECORDS SUMMARY | 2022-07-17 15:26 | XMS REPORT | Continuity of Care Document ---
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 Yes 300 mg = 1 M emoria 300 MG Oral 2-11 cap, PO, l Capsule 16:46: Q8H-05, # Naye nn 00 90 cap, 0 Refill(s), Pharmacy: [facility] [id number] methocarbam Yes 1,000 mg = Memoria ol 500 mg 2-11 2 tab, PO, l oral tablet 16:46: Q8H-05, Her baker 00 PRN Spasm, X 14 day, # 84 tab, 0 Refill(s), Pharmacy: [facility] [id number] tramadol No Notes: Not Mem oria hydrochlori 2-11 to exceed l de 50 MG 15:34: 400mg/day. Her baker Oral Tablet 00 (Same As: [Ultram] Ultram) Morphine No Notes: Memoria 2-11 (Same l 15:34: as:MORPhin [place] 00 e Sulfate) tramadol No Notes: Not Mem oria hydrochlori 2-11 to exceed l de 50 MG 15:34: 400mg/day. Her baker Oral Tablet 00 (Same As: [Ultram] Ultram) Morphine No Notes: Memoria 2-11 (Same l 15:34: as:MORPhin [place] 00 e Sulfate) sennosides, No Notes: Raad kenna INTERMEDIATE 2-11 (Same as: l 03:00: Senokot) Jaden Trazodone No Notes: Memori a 2-11 (Same As: l 03:00: Desyrel) Jaden sennosides, No Notes: Raad kenna INTERMEDIATE 2-11 (Same as: l 03:00: Senokot) [place] Trazodone No Notes: Memori a 2-11 (Same As: l 03:00: Desyrel) Jaden 00 Cefazolin No Notes: Memori a 2-10 (Same As: l 22:00: Ancef, [place] 00 Kefzol) MEDICATION WASTE Product Size: 1000 mg Product Wasted: ___ mg Cefazolin No Notes: Memori a 2-10 (Same As: l 22:00: Ancef, [place] 00 Kefzol) MEDICATION WASTE Product Size: 1000 mg Product Wasted: ___ mg Latuda No Notes: Memoria 2-10 (Same as: l 15:00: Latuda) [place] 00 Non-Formul em Prozac No Notes: Memoria 2-10 (Same as: l 15:00: Prozac, [place] 00 Sarafem) Latuda No Notes: Memoria 2-10 (Same as: l 15:00: Latuda) [place] Non-Formul em Prozac No Notes: Memoria 2-10 (Same as: l 15:00: Prozac, [place] 00 Sarafem) Ondansetron No Notes: Raad kenna 2-10 (Same as: l 14:58: Zofran) Jaden 00 MEDICATION WASTE Product Size: 4 mg Product Wasted: ___ mg Oxycodone No Notes: Memori a 2-10 (Same as: l 14:58: Roxicodone Jaden 00 ) Hydromorpho No Notes: Raad kenna ne 2-10 Same as: l 14:58: Dilaudid [place] 00 Naloxone No Notes: Memoria 2-10 Same as l 14:58: Narcan Flumazenil No Notes: Memor ia 2-10 (Same as: l 14:58: Romazicon) [place] 00 Ondansetron No Notes: Raad kenna 2-10 (Same as: l 14:58: Zofran) [place] 00 MEDICATION WASTE Product Size: 4 mg Product Wasted: ___ mg Oxycodone No Notes: Memori a 2-10 (Same as: l 14:58: Roxicodone Jaden 00 ) Hydromorpho No Notes: Raad kenna ne 2-10 Same as: l 14:58: Dilaudid [place] 00 Naloxone No Notes: Memoria 2-10 Same as l 14:58: Narcan Flumazenil No Notes: Memor ia 2-10 (Same as: l 14:58: Romazicon) Ancef No 2 gm, Memoria 2-10 Route: l 13:28: IVPB, Jaden 00 ONCE, Dosing Weight 88.636, kg, Start date: 11/10/16 7:28:00 HARDWARE INSTALLER, Duration: 1 doses or times, Stop date: 11/10/16 7:28:00 HARDWARE INSTALLER, Surgical Prophylaxi s Only; For patients < 120 kg Ancef No 2 gm, Memoria 2-10 Route: l 13:28: IVPB, ONCE, Dosing Weight 88.636, kg, Start date: 11/10/16 7:28:00 HARDWARE INSTALLER, Duration: 1 doses or times, Stop date: 11/10/16 7:28:00 HARDWARE INSTALLER, Surgical Prophylaxi s Only; For patients < 120 kg ketOROLAC No 4 days. Raad kenna 15 mg/mL 2-10 l injectable 12:00: Jaden solution ketOROLAC No 4 days. Raad kenna 15 mg/mL 2-10 l injectable 12:00: Jaden solution Lovenox No Notes: Memoria 2-10 (Same as: l 10:00: Lovenox) Lovenox No Notes: Memoria 2-10 (Same as: l 10:00: Lovenox) Fentanyl No 50 kg Memoria 2-10 l 09:06: [place] Fentanyl No 50 kg Memoria 2-10 l 09:06: Jaden 00 Acetaminoph No Notes: Do M emoria en 325 MG / 2-10 not exceed l Hydrocodone 08:51: 4gm/day of [place]aden Bitartrate 00 acetaminop 10 MG Oral hen. (Same Tablet as: Norris [Norris 325/10) ] gabapentin No Notes: Memor ia 300 MG Oral 2-10 (Same as: l Capsule 08:51: Neurontin) Robaxin No Notes: Memoria 2-10 (Same l 08:51: as:Robaxin ) ketOROLAC No 15 mg, Memori a 15 mg/mL 2-10 Route: IM, l injectable 08:51: Q6H, kg, Her baker solution 00 Priority: NOW, Start date: 11/10/16 2:51:00 HARDWARE INSTALLER, Duration: 4 day, Stop date: 11/14/16 0:00:00 HARDWARE INSTALLER Acetaminoph No Notes: Do M emoria en 325 MG / 2-10 not exceed l Hydrocodone 08:51: 4gm/day of [place] Bitartrate 00 acetaminop 10 MG Oral hen. (Same Tablet as: Norris [Norris 325/10) ] gabapentin No Notes: Memor ia 300 MG Oral 2-10 (Same as: l Capsule 08:51: Neurontin) Herm vivian Robaxin No Notes: Memoria 2-10 (Same l 08:51: as:Robaxin Jaden ) ketOROLAC No 15 mg, Memori a 15 mg/mL 2-10 Route: IM, l injectable 08:51: Q6H, kg, Her baker solution 00 Priority: NOW, Start date: 11/10/16 2:51:00 HARDWARE INSTALLER, Duration: 4 day, Stop date: 11/14/16 0:00:00 HARDWARE INSTALLER Lurasidone Yes 20 mg = 1 Me [...] 1,000 mL 00 PH 7.4) Isolyte S No Notes: Memori a (PH [...] kenna 2-10 (Same as: l 08:15: Zofran) [place] 00 MEDICATION WASTE Product Size: 4 mg Product Wasted: ___ mg Morphine No 4 mg, Memoria 2-10 Route: l 07:40: IVP, ONCE, [place] 00 kg, Priority: STAT, Start date: 11/10/16 1:40:00 HARDWARE INSTALLER, Stop date: 11/10/16 1:40:00 HARDWARE INSTALLER Morphine 2017-0 No 4 mg, Memoria 2-10 Route: l 07:40: IVP, ONCE, [place] 00 kg, Priority: STAT, Start date: 11/10/16 1:40:00 HARDWARE INSTALLER, Stop date: 11/10/16 1:40:00 HARDWARE INSTALLER Dilaudid 2017-0 No 2 mg, Memoria 2-10 Route: l 05:28: IVP, ONCE, [place] 00 kg, Priority: STAT, Start date: 11/09/16 23:28:00 HARDWARE INSTALLER, Stop date: 11/09/16 23:28:00 HARDWARE INSTALLER Dilaudid 2017-0 No 2 mg, Memoria 2-10 Route: l 05:28: IVP, ONCE, [place] 00 kg, Priority: STAT, Start date: 11/09/16 23:28:00 HARDWARE INSTALLER, Stop date: 11/09/16 23:28:00 HARDWARE INSTALLER Sodium 2017-0 No 2,000 mL, Memori a Chloride 2-10 2,000 l 0.154 05:10: ml/hr, [place] MEQ/ML 00 Infuse Injectable Over: 1 Solution hr, Route: IV, 2,000, Drug form: INJ, ONCE, Priority: STAT, kg, Start date: 11/09/16 23:10:00 HARDWARE INSTALLER, Duration: 1 doses or times, Stop date: 11/09/16 23:10:00 HARDWARE INSTALLER Sodium 2017-0 No 2,000 mL, Memori a Chloride 2-10 2,000 l 0.154 05:10: ml/hr, [place] MEQ/ML 00 Infuse Injectable Over: 1 Solution hr, Route: IV, 2,000, Drug form: INJ, ONCE, Priority: STAT, kg, Start date: 11/09/16 23:10:00 HARDWARE INSTALLER, Duration: 1 doses or times, Stop date: 11/09/16 23:10:00 HARDWARE INSTALLER Zofran 2017-0 No Notes: Memoria 2-10 (Same [...] kg, Priority: STAT, Start date: 11/09/16 22:50:00 HARDWARE INSTALLER, Stop date: 11/09/16 22:50:00 HARDWARE INSTALLER Morphine 2017-0 No 4 mg, Memoria 2-10 Route: l 04:50: IVP, ONCE, [place] 00 kg, Priority: STAT, Start date: 11/09/16 22:50:00 HARDWARE INSTALLER, Stop date: 11/09/16 22:50:00 HARDWARE INSTALLER Ketamine 2017-0 No 100 mg, Memori a 2-10 Route: l 04:11: IVP, ONCE, [place] 00 kg, Priority: STAT, Start date: 11/09/16 22:11:00 HARDWARE INSTALLER, Stop date: 11/09/16 22:11:00 HARDWARE INSTALLER Ketamine No 100 mg, Memori a 2-10 Route: l 04:11: IVP, ONCE, Jaden 00 kg, Priority: STAT, Start date: 11/09/16 22:11:00 HARDWARE INSTALLER, Stop date: 11/09/16 22:11:00 HARDWARE INSTALLER Fentanyl No Notes: Memoria 2-10 (Same as: l 04:09: Sublimaze) [place] 00 Preservati ve free. Fentanyl No Notes: Memoria 2-10 (Same as: l 04:09: Sublimaze) Jaden 00 Preservati ve free. Fentanyl No Notes: Memoria 2-10 (Same as: l 04:08: Sublimaze) Jaden 00 Preservati ve free. Fentanyl No Notes: Memoria 2-10 (Same as: l 04:08: Sublimaze) [place] 00 Preservati ve free. Saline No Notes: Memoria Flush 0.9% 2-10 (Same as: l 03:30: BD Jaden 00 Posiflush) Saline No Notes: Memoria Flush 0.9% 2-10 (Same as: l 03:30: BD Jaden 00 Posiflush) famotidine 2015-10 Yes Heartburn 40mg QD Take 1 [facility] (PEPCID) 40 1-18 tablet by [facility] mg tablet 00:00: mouth 00 daily. traZODone 2015-10 Yes Insomnia, 200mg Take 2 [place] (DESYREL) 1-18 unspecified tablets by [facility] 100 mg 00:00: type mouth at [...] mouth 00 disorder, daily. remission status unspecified famotidine 2015-10 Yes Heartburn 40mg QD Take 1 [place] (PEPCID) 40 1-18 tablet by [facility] lth mg tablet 00:00: mouth 00 daily. traZODone 2015-10 Yes Insomnia, 200mg Take 2 [place] (DESYREL) 1-18 unspecified tablets by [facility] 100 mg 00:00: type mouth at tablet 00 bedtime nightly. tiotropium 2015-10 Yes COPD 1{capsu QD Inhale 1 [place] (SPIRIVA 1-18 (chronic le} capsule by ealt WITH 00:00: obstructive mouth HANDIHALER) 00 pulmonary daily. 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 remission status unspecified miconazole 2015-10 Yes Jock itch Q.5D Apply to [place] (MICOTIN) 2 0-03 affected Heal [facility] % topical 00:00: area 2 cream 00 times daily. miconazole 2015-10 Yes Jock itch Q.5D Apply to [place] (MICOTIN) 2 0-03 affected [facility]al [facility] % topical 00:00: area 2 cream 00 times daily. Immunizations Ordered Immunization Filled Immunization Date Status Commen ts Source Name Name Influenza Vaccine 2016-07-03 Completed [facility] 00:00:00 Influenza Vaccine 2016-07-03 Completed [facility] 00:00:00 PPD 2012-02-27 Completed [facility] 00:00:00 PPD 2012-02-27 Completed [facility] 00:00:00 PPD 2011-02-13 Completed [facility] 00:00:00 PPD 2011-02-13 Completed [facility] 00:00:00 Vital Signs Vital Name Observation Time Observation Value Comments Source Systolic blood 2022-07-13 23:00:00 117 mm[Hg] Univer sity of pressure [facility] Diastolic blood 2022-07-13 23:00:00 79 mm[Hg] Unive [facility] of pressure [facility] Heart rate 2022-07-13 23:00:00 73 /min [facility] Oxygen saturation in 2022-07-13 23:00:00 99 /min [facility] Arterial blood by [facility] Pulse oximetry Branch Respiratory rate 2022-07-13 22:00:00 18 /min [facility] Body temperature 2022-07-13 19:10:00 36.89 Jennifer [facility] Body height 2022-07-13 19:10:00 172.7 cm [facility] Body weight 2022-07-13 19:10:00 68.[address] [facility] BMI 2022-07-13 19:10:00 22.81 kg/m2 [facility] Systolic blood 2022-06-08 19:28:00 114 mm[Hg] Univer [facility]ity [facility] Diastolic blood 2022-06-08 19:28:00 78 mm[Hg] Unive rsity of pressure [facility] Heart rate 2022-06-08 19:28:00 90 /min [facility] Body temperature 2022-06-08 19:28:00 36.78 Jennifer [facility] Respiratory rate 2022-06-08 19:28:00 17 /min [facility] Body height 2022-06-08 19:28:00 172.7 cm [facility] Body weight 2022-06-08 19:28:00 67.767 kg [facility] BMI 2022-06-08 19:28:00 22.72 kg/m2 [facility] Oxygen saturation in 2022-06-08 19:28:00 97 /min University Arterial blood by [facility] Pulse oximetry Branch Systolic blood 2022-05-28 12:37:00 101 mm[Hg] Univer sity of pressure [facility] Diastolic blood 2022-05-28 12:37:00 70 mm[Hg] Unive rsity of [facility] Heart rate 2022-05-28 12:37:00 69 /min [facility] Body temperature 2022-05-28 12:37:00 36.67 Jennifer [facility] Respiratory rate 2022-05-28 12:37:00 18 /min [facility] Body weight 2022-05-28 12:37:00 66.271 kg [facility] BMI 2022-05-28 12:37:00 22.21 kg/m2 [facility] Oxygen saturation in 2022-05-28 12:37:00 97 /min [facility] of Arterial blood by [facility] Pulse oximetry Branch Body height 2022-05-27 23:06:00 172.7 cm [facility] Systolic blood 2022-01-02 05:10:00 109 mm[Hg] Univer [facility]ity [facility] Diastolic blood 2022-01-02 05:10:00 80 mm[Hg] Unive rsity of [facility] Heart rate 2022-01-02 05:10:00 106 /min [facility] Body temperature 2022-01-02 05:10:00 37.22 Jennifer [facility] Respiratory rate 2022-01-02 05:10:00 20 /min [facility] Body height 2022-01-02 05:10:00 172.7 cm [facility] Body weight 2022-01-02 05:10:00 63.504 kg [facility] BMI 2022-01-02 05:10:00 21.29 kg/m2 [facility] Oxygen saturation in 2022-01-02 05:10:00 98 /min [facility] of Arterial blood by [facility] Pulse oximetry Branch Systolic blood 2021-09-27 08:13:00 112 mm[Hg] Univer [facility]ity [facility] Diastolic blood 2021-09-27 08:13:00 72 mm[Hg] Unive rsity of pressure [facility] Heart rate 2021-09-27 08:13:00 77 /min [facility] Body temperature 2021-09-27 08:13:00 36.72 Jennifer [facility] Respiratory rate 2021-09-27 08:13:00 18 /min [facility] Body height 2021-09-27 08:13:00 170.2 cm [facility] Body weight 2021-09-27 08:13:00 68.04 kg [facility] BMI 2021-09-27 08:13:00 23.49 kg/m2 [facility] Oxygen saturation in 2021-09-27 08:13:00 98 /min [facility] of Arterial blood by [facility] Pulse oximetry Branch Height/Length 2021-10-18 09:59:29 172.72 [...] 2020-01-05 18:19:09 Measured Respitory Rate 2016-12-20 16:24:00 Memori al [place] Heart Rate 2016-12-20 16:24:00 Memorial [place] Temperature Oral (F) 2016-12-20 16:24:00 98.2 F [facility] [place] Systolic (mm Hg) 2016-12-20 16:24:00 Raad rial [place] Diastolic (mm Hg) 2016-12-20 16:24:00 Mem orial [place] Respitory Rate 2016-12-20 13:24:00 Memori al [place] Systolic (mm Hg) 2016-12-20 13:24:00 Raad rial [place] Diastolic (mm Hg) 2016-12-20 13:24:00 Mem orial [place] Heart Rate 2016-12-20 13:24:00 Memorial [place] Temperature Oral (F) 2016-12-20 13:24:00 98.0 F [facility] [place] Respitory Rate 2016-12-20 09:00:00 Memori al [place] Systolic (mm Hg) 2016-12-20 09:00:00 Raad rial [place] Diastolic (mm Hg) 2016-12-20 09:00:00 Mem orial [place] Temperature Oral (F) 2016-12-20 09:00:00 97.2 F Memorial [place] Heart Rate 2016-12-20 09:00:00 [facility] [place] Height 2016-12-19 23:06:00 172.72 cm [facility] [place] BMI Calculated 2016-12-19 23:06:00 Memori al [place] Weight 2016-12-19 23:06:00 [facility] [place] Weight 2016-12-18 18:24:00 [facility] [place] Height 2016-12-18 18:24:00 172.72 cm [facility] [place] BMI Calculated 2016-12-18 18:24:00 Memori al [place] Temperature Oral (F) 2016-11-19 00:28:00 97.0 F [facility] [place] Heart Rate 2016-11-19 00:28:00 [facility] [place] Respitory Rate 2016-11-19 00:28:00 Memori al [place] Systolic (mm Hg) 2016-11-19 00:28:00 Raad rial [place] Diastolic (mm Hg) 2016-11-19 00:28:00 Mem orial [place] Height 2016-11-19 00:28:00 177.8 cm [facility] [place] BMI Calculated 2016-11-19 00:28:00 Memori al [place] Weight 2016-11-19 00:28:00 [facility] [place] Height 2016-11-12 13:46:00 172.72 cm [facility] [place] BMI Calculated 2016-11-12 13:46:00 Memori al [place] Weight 2016-11-12 13:46:00 [facility] [place] Heart Rate 2016-11-12 13:46:00 [facility] [place] Respitory Rate 2016-11-12 13:46:00 Memori al [place] Temperature Oral (F) 2016-11-12 13:46:00 97.5 F [facility] [place] Systolic (mm Hg) 2016-11-12 13:46:00 Raad rial [place] Diastolic (mm Hg) 2016-11-12 13:46:00 Mem orial [place] Respitory Rate 2016-11-11 18:59:00 Memori al [place] Heart Rate 2016-11-11 18:59:00 [facility] [place] Temperature Oral (F) 2016-11-11 18:59:00 97.7 F [facility] [place] Systolic (mm Hg) 2016-11-11 18:59:00 Raad rial [place] Diastolic (mm Hg) 2016-11-11 18:59:00 Mem orial [place] Temperature Oral (F) 2016-11-11 13:30:00 97.5 F [facility] [place] Systolic (mm Hg) 2016-11-11 13:30:00 Raad rial [place] Diastolic (mm Hg) 2016-11-11 13:30:00 Mem orial [place] Respitory Rate 2016-11-11 13:30:00 Memori al [place] Heart Rate 2016-11-11 13:30:00 Memorial [place] Heart Rate 2016-11-11 09:29:00 [facility] [place] Temperature Oral (F) 2016-11-11 09:29:00 97.8 F [facility] [place] Respitory Rate 2016-11-11 09:29:00 Memori al [place] Systolic (mm Hg) 2016-11-11 09:29:00 Raad rial [place] Diastolic (mm Hg) 2016-11-11 09:29:00 Mem orial [place] Weight 2016-11-10 10:09:00 [facility] Cal[facility] 2016-11[facility]10 [facility]09[facility] [place] Height 2016-11-10 10:09:00 172.72 cm [facility] Procedures Procedure Date / Time Performing Clinician Source Performed CT ABDOMEN PELVIS W 2022-07-13 21:14:00 Ann Patricia [facility] US SCROTUM AND CONTENTS 2022-07-13 21:08:15 Ann Patricia [facility] URINALYSIS 2022-07-13 20:30:00 Ann Patricia [facility] COMP. METABOLIC PANEL 2022-07-13 20:12:00 Ann Patricia [facility] ([id number]) [facility] CBC WITH DIFF 2022-07-13 20:12:00 Ann Patricia [facility] ASSIGNMENT OF BENEFITS 2022-06-08 19:18:51 Doctor Unassigned, [facility] [place] [facility] MAGNESIUM 2022-05-28 09:29:00 [facility] BASIC METABOLIC PANEL 2022-05-28 09:29:00 Jennifer Frankel [facility] (NA, K, CL, CO2, GLUCOSE, Medica l Branch BUN, CREATININE, CA) N-TERMINAL PRO-BNP 2022-05-28 09:29:00 Shaun Laguerre [facility] TROPONIN I 2022-05-28 03:58:00 David [facility] LIPID PANEL ([id number])(TOTAL 2022-05-28 03:58:00 Oneil Hernandez [facility] CHOLESTEROL, [facility] TRIGLYCERIDES, HDL) GLYCOSYLATED HEMOGLOBIN 2022-05-28 03:58:00 David [facility] (A1C) [facility] D-DIMER 2022-05-28 03:58:00 David [facility] TROPONIN I 2022-05-27 23:54:00 Jostin [facility] COVID-19 (ID NOW RAPID 2022-05-27 20:31:00 Yeyo Rogers [facility] TESTING) [facility] XR CHEST 1 VW 2022-05-27 19:33:15 Yeyo Rogers [facility] CREATINE KINASE 2022-05-27 19:10:00 Yeyo Rogers [facility] TROPONIN I 2022-05-27 19:10:00 Yeyo Rogers [facility] COMP. METABOLIC PANEL 2022-05-27 19:10:00 Yeyo Rogers [facility] ([id number]) [facility] CBC WITH DIFF 2022-05-27 19:10:00 Yeyo Rogers [facility] CT HEAD WO CONTRAST 2022-01-02 05:55:20 [facility] 2022-01-02 05:02:45 Doctor Unassigned, [facility] DIAGNOSIS AND TREATMENT [place] [facility] CONSENT/REFUSAL FOR 2021-09-27 07:58:16 Doctor UnassCleveland robbins [facility] DIAGNOSIS AND TREATMENT [place] [facility] Eye reconstruction 1993-10-01 00:00:00 [facility] Nose reconstruction 1991-10-01 00:00:00 [facility] Tonsillectomy and 1972-10-01 00:00:00 [facility] adenoidectomy Fracture care [facility] Plan of Care Planned Activity Planned Date Details Comments Source Future Scheduled Test 2022-07-01 00:00:00 IMM Influenza [facility] Seasonal (>/= 19 yrs) [code = IMM Influenza Seasonal (>/= 19 yrs)] Future Scheduled Test 2022-07-01 00:00:00 IMM Influenza [facility] Seasonal (>/= 19 yrs) [code = IMM Influenza Seasonal (>/= 19 yrs)] Future Scheduled Test 2017 00:00:00 Screening for [facility] malignant neoplasm of colon (procedure) [code = 041002707] Future Scheduled Test 2017 00:00:00 Screening for [facility] malignant neoplasm of colon (procedure) [code = 062980016] Future Scheduled Test 1967 00:00:00 COVID-19 Vaccine (#1) [facility] [code = COVID-19 Vaccine (#1)] Future Scheduled Test 1967 00:00:00 COVID-19 Vaccine (#1) [facility] [code = COVID-19 Vaccine (#1)] Future Scheduled Test 1967 00:00:00 Fluoride Varnish [facility] [code = Fluoride Varnish] Future Scheduled Test 1967 00:00:00 Fluoride Varnish [facility] [code = Fluoride Varnish] Encounters Start End Encounter Admission Attending Care Care Encounter Source Date/Time Date/Time Type Type Clinicians Facility Department ID 2022-01-02 Outpatient [facility] [id number] PR 00:16:[id number] [place] [address] 2016-11-13 Inpatient E [facility] [id number] [address]. 23:30:00 [facility] 2022-07-13 2022-07-13 Emergency X HARSHAD [facility] ERT [id number] Univers 14:11:00 19:47:00 ANN perea [facility] 2022-07-132022-07-13 [facility] [id number] Univers 14:11:00 19:47:00 Ann [place] [id number] ity of [place] [id number] [id number] [facility] 084 Branch 2022-06-08 2022-06-08 Urgent [place], Ursula [facility] [id number] Univers 14:20:00 14:40:00 Grant Reyes [facility] [id number] ity of [place] [id number] Cameron as KENRICK?BLEA [id number] [address] MEDICAL OFFICE BUILDING 2022-06-08 2022-06-08 Outpatient R [facility] [id number] Univers 14:20:00 14:20:00 JOAQUIN [facility] 2022-06-08 2022-06-08 Orders Doctor PIPO [id number] Univers 00:00:00 00:00:00 Only Unassigned, ISSA [id number] ity of [place] [facility] [id number] Cameron as [id number] [facility] 009 Branch 2022-05-27 2022-05-28 Outpatient X JOSTIN PRLEON ROBERT [id number] Univers 14:03:00 11:28:00 JENNIFER perea [facility] 2022-05-27 2022-05-28 Emergency Mariaelena Mata [facility] 1.2.8 40.114 [id number] Univers 14:03:00 11:28:00 Yeyo Rogers 350.1.13.10 ity of Jennifer Frankel 4.2.7.2.686 [facility] [phone] [place] [address]231 [place] 2022-01-02 2022-01-02 Emergency X SINGER [facility] ERT [id number] Univers 00:16:00 01:18:00 NESTOR perea [facility] 2022-01-02 2022-01-02 Emergency [facility] [id number] Univers 00:16:00 01:18:00 Nestor PAL[place] 350.1.13.10 i ty of [place] 4.2.7.2.686 [facility] [phone] [place] 514234 Branch 2021-09-27 2021-09-27 Emergency [facility] ERT [id number] Univers 02:16:00 02:45:00 HAO ity of [facility] 2021-09-27 2021-09-27 Emergency [facility] [id number] Univers 02:16:00 02:45:00 Hao [place] 350.1.13.10 i ty of [place] 4.2.7.2.686 [facility] [phone] [place] 514234 Branch 2021-09-27 2021-09-27 Orders Doctor PIPO 1.2.840.114 [id number] Univers 00:00:00 00:00:00 Only Unassigned, ISSA 350.1.13.10 ity of [place] [facility] 4.2.7.2.686 [facility] [id number] [facility] 009 Branch 2020-01-05 2020-01-05 [facility] 1.2.840.114 [id number] 12:30:57 23:59:00 Encounter Pretty [facility] 350.1.13.10 MEDICAL 4.2.7.2.686 MAUD [id number] 2020-01-05 2020-01-05 [facility] 1.2.840.114 [id number] Univers 12:30:57 23:59:00 Encounter Pretty ELAINE'S 350.1.13.10 ity of [facility] 4.2.7.2.686 [facility] [id number] [facility] 060 Branch 2020-01-05 2020-01-05 Emergency [facility] [id number] 18:04:00 18:04:00 [facility] 2020-01-05 2020-01-05 Emergency [facility] [id number] [address] 18:04:00 18:04:00 -[id number] [facility] 2020-01-05 2020-01-05 Outpatient R STACI, [facility] [id number] Univers 00:00:00 00:00:00 PRETTY beck [facility] 2016-12-19 2016-12-20 [facility] [id number] Memoria 11:27:00 22:08:00 [facility] 03 [facility] 2016-12-19 2016-12-20 [facility]patient [facility] [id number] Memoria 11:27:00 22:08:00 [facility] 2016-12-19 2016-12-20 Outpatient Be [facility] [id number] 06:27:00 17:08:00 Luis Fernando Leo 2016-11-19 2016-11-19 [facility] [id number] Memoria 00:24:00 03:23:00 [facility] 2016-11-19 2016-11-19 Emergency [facility] [id number] Memoria 00:24:00 03:23:[address] 2016-11-18 2016-11-18 Outpatient Chris [facility] [id number] 18:24:00 21:23:00 Arminda M Regan 2016-11-12 2016-11-12 Emergency [facility] [id number] Memoria 13:43:00 15:54:00 [facility] 2016-11-12 2016-11-12 Emergency [facility] [id number] Memoria 13:43:00 15:54:00 [facility] 2016-11-12 2016-11-12 Outpatient Shahla Madden [facility] [id number] 07:43:00 09:54:00 Jonah 2016-11-10 2016-11-11 [facility] [id number] Memoria 03:20:00 20:50:00 [facility] 2016-11-10 2016-11-11 Inpatient [facility] [id number] Memoria 03:20:00 20:50:00 [facility] 2016-11-09 2016-11-11 Outpatient Ela Garvin [facility] [id number] 21:20:00 14:50:00 00 Results Test Description Test Time Test Comments Results Result Comments Source COMP. METABOLIC PANEL (19104) 2022-07-13 20:47:58 Test Item Value Reference Range Interpretation Comme nts NA (test code = 6469746829) 140 mmol/L 135-145 K (test code = 5343758031) 3.4 mmol/L 3.5-5 L CL (test code = 6981047117) 103 mmol/L 98-108 CO2 TOTAL (test code = 1701394419) 31 mmol/L 23-31 AGAP (test code = 8946464748) 2-16 BUN (test code = 4036670539) 12 mg/dL 7-23 GLUCOSE (test code = 8019828215) 118 mg/dL 70-110 H CREATININE (test code = 0.82 mg/dL 0.6-1.25 9254714721) TOTAL BILI (test code = 0.4 mg/dL 0.1-1.3 6590737818) CALCIUM (test code = 3364541505) 8.8 mg/dL 8.6-10.6 T PROTEIN (test code = 4595047254) 7.2 g/dL 6.3-8.2 ALBUMIN (test code = 3773772126) 4.2 g/dL 3.5-5 ALK PHOS (test code = 4098445419) 82 U/L 34-122 ALTv (test code = 1742-6) 53 U/L 5-50 H AST(SGOT) (test code = 7286094783) 71 U/L 13-40 H eGFR (test code = 4908626914) mL/min/1.73m2 HERVE (test code = HERVE) Association of Glomerular Filtration Rate (GFR) and Staging of Kidney Disease* + +-------- + ------+| GFR (mL/min/1.73 m2) ?| With Kidney Damage ?| ?Without Kidney Damage+ +-- + +| ?>90 ?| ?Stage one ?| ? Normal ?+ +------- + -------+| ?60-89 ?| ?Stage two ?| ? Decreased GFR ? + +-------- + ------+| ?30-59 ?| ?Stage three ?| ? Stage three ? + +-------- + ------+| ?15-29 ?| ?Stage four ? | ? Stage four ?+ +------- + -------+| ?<15 (or dialysis) ? ?| ?Stage five ? | ? Stage five ?+ +------- + -------+ *Each stage assumes the associated GFR [...] or abnormalities in imaging tests). Lab Interpretation (test code = Abnormal 25440-6) [facility] WITH [id number] 20:38:38 Test Item Value Reference Range Interpretation Comments WBC (test code = See_Comment [Automated 9396-2) message] The sy stem which generated this result transmitted reference range : 4.20 - 10.70 10*3/?L. The reference range was not used to interpret this result as normal/abnormal . RBC (test code = See_Comment [Automated 679-8) message] The sy stem which generated this result transmitted reference range : 4.26 - 5.52 10*6/?L. The reference range was not used to interpret this result as normal/abnormal . HGB (test code = 14.8 g/dL 12.2-16.4 718-7) HCT (test code = 42.0 % 38.4-49.3 4544-3) MCV (test code = 92.7 fL 81.7-95.6 787-2) MCH (test code = 32.7 pg 26.1-32.7 785-6) MCHC (test code = 35.2 g/dL 31.2-35 H 786-4) RDW-SD (test code = 41.0 fL 38.5-51.6 66702-8) RDW-CV (test code = 11.9 % 12.1-15.4 L 788-0) PLT (test code = See_Comment [Automated 307-3) message] The sy stem which generated this result transmitted reference range : 150 - 328 10*3/ ?L. The reference r natasha was not used to interpret this result as normal/abnormal . MPV (test code = 8.5 fL 9.8-13 L 07780-2) NRBC/100 WBC (test See_Comment [Automat ed code = 4827404457) message] The system which generated this result transmitted reference range : 0.0 - 10.0 /100 WBCs. The refer ence range was not u sed to interpret th is result as normal/abnormal . NRBC x10^3 (test code See_Comment [Auto mated = 2676574449) message] The s ystem which generated this result transmitted reference range : 10*3/?L. The reference range was not used to interpret this result as normal/abnormal . GRAN MAT (NEUT) % 57.5 % (test code = 770-8) IMM GRAN % (test code 0.40 % = 7203050987) LYMPH % (test code = 31.6 % 736-9) MONO % (test code = 6.4 % 5905-5) EOS % (test code = 3.5 % 713-8) BASO % (test code = 0.6 % 706-2) GRAN MAT x10^3(ANC) 5.23 10*3/uL 1.99-6.95 (test code = 9499008385) IMM GRAN x10^3 (test 0.04 10*3/uL 0-0.06 code = 6276360914) LYMPH x10^3 (test code 2.87 10*3/uL 1.09-3.23 = 731-0) MONO x10^3 (test code 0.58 10*3/uL 0.36-1.02 = 742-7) EOS x10^3 (test code = 0.32 10*3/uL 0.06-0.53 711-2) BASO x10^3 (test code 0.05 10*3/uL 0.01-0.09 = 704-7) Lab Interpretation Abnormal (test code = 71234-4) [facility] [id number] 20:00:10 Test Item Value Reference Interpretation Comments Range TROPONIN I (test 0.002 ng/mL See_Comment [Automated code = 5841080759) message] The system which generated this result transmitted reference range : <=0.034. The reference range was not used to interpret this result as normal/abnormal . HERVE (test code = Reference (Normal) HERVE) Range (defined by the 99th percentile reference [...] biotin. Lab Interpretation Normal (test code = 17445-1) [facility]. METABOLIC PANEL (13752)2022-05-27 19:49:33 Test Item Value Reference Range Interpretation Comments NA (test code = 139 mmol/L 135-145 8381430349) K (test code = 3.4 mmol/L 3.5-5 L 4293357164) CL (test code = 104 mmol/L 98-108 1215999086) CO2 TOTAL (test code = 28 mmol/L 23-31 9723990116) AGAP (test code = 2-16 0091151912) BUN (test code = 19 mg/dL 7-23 9232988545) GLUCOSE (test code = 101 mg/dL 70-110 7883034815) CREATININE (test code = 1.02 mg/dL 0.6-1.25 4518271032) TOTAL BILI (test code = 1.3 mg/dL 0.1-1.1 H 8200231531) CALCIUM (test code = 9.0 mg/dL 8.6-10.6 3053205166) T PROTEIN (test code = 7.0 g/dL 6.3-8.2 2532813877) ALBUMIN (test code = 4.3 g/dL 3.5-5 1321881318) ALK PHOS (test code = 70 U/L 34-122 3629268998) ALTv (test code = 37 U/L 5-50 1742-6) AST(SGOT) (test code = 42 U/L 13-40 H 4459023795) eGFR (test code = mL/min/1.73m2 7708237619) HERVE (test code = HERVE) Association of [...] tests). Lab Interpretation Abnormal (test code = 39161-9) [facility]AT[facility] [id number] 19:48:48 Test Item Value Reference Range Interpretation Comments CK (test code = 8102104469) 159 U/L 33-194 Lab Interpretation (test code = Normal 72308-4) [facility] WITH [id number] 19:26:48 Test Item Value Reference Range Interpretation Comments WBC (test code = See_Comment [Automated 5990-2) message] The sy stem which generated this result transmitted reference range : 4.20 - 10.70 10*3/?L. The reference range was not used to interpret this result as normal/abnormal . RBC (test code = See_Comment [Automated 789-8) message] The sy stem which generated this [...] RDW-SD (test code = 42.5 fL 38.5-51.6 68391-0) RDW-CV (test code = 12.2 % 12.1-15.4 788-0) PLT (test code = See_Comment [Automated 777-3) message] The sy stem which generated this result transmitted reference range : 150 - 328 10*3/ ?L. The reference r natasha was not used to interpret this result as normal/abnormal . MPV (test code = 8.0 fL 9.8-13 L 71795-6) NRBC/100 WBC (test See_Comment [Automat ed code = 8581053442) message] The system which generated this result transmitted reference range : 0.0 - 10.0 /100 WBCs. The refer ence range was not u sed to interpret th is result as normal/abnormal . NRBC x10^3 (test code See_Comment [Auto mated = 6660114304) message] The s ystem which generated this result transmitted reference range : 10*3/?L. The reference range was not used to interpret this result as normal/abnormal . GRAN MAT (NEUT) % 54.4 % (test code = 770-8) IMM GRAN % (test code 0.30 % = 1092532999) LYMPH % (test code = 32.4 % 736-9) MONO % (test code = 9.2 % 5905-5) EOS % (test code = 3.3 % 713-8) BASO % (test code = 0.4 % 706-2) GRAN MAT x10^3(ANC) 4.06 10*3/uL 1.99-6.95 (test code = 6284130417) IMM GRAN x10^3 (test 0-0.06 code = 4814144876) LYMPH x10^3 (test code 2.42 10*3/uL 1.09-3.23 = 731-0) MONO x10^3 (test code 0.69 10*3/uL 0.36-1.02 = 742-7) EOS x10^3 (test code = 0.25 10*3/uL 0.06-0.53 711-2) BASO x10^3 (test code 0.03 10*3/uL 0.01-0.09 = 704-7) Lab Interpretation Abnormal (test code = 70018-9) [facility]abolic Cwxaq8297-72-47 08:29:05 Test Item Value Reference Range Interpretation [...] A/G 1.4 ratio N Ratio) Comprehensive Metabolic Bjzgk8671-13-88 08:29:05 Test Item Value Reference Range Interpretation [...] National Kidney Foundation, http://nkdep.ni h.gov Comprehensive Metabolic Umyhz9966-20-11 08:29:05 Test Item Value Reference Range Interpretation [...] ag e have not been validated by [facility] MDRD study and should be interpreted wit [...] ag e have not been validated by [facility] MDRD study and should be interpreted wit h caution. eGFR R esult Interpretation: eGFR > or = 60 is in the Normal RangeeGF R < 60 may mean kid jignesh diseaseeGFR < 1 5 may mean kidney failure Rang es recommended by the National Kidney Foundation, http://nkdep.ni h.gov Complete Blood Count without Vczg1085-28-18 08:07:00 Test Item Value Reference Range Interpretation [...] code = IPF) 0 % N RPR Wugmuecnjrh9971-08-30 11:58:31 Test Item Value Reference Range Interpretation [...] = 09-30-2020 N Expiration Dt) Thyroid Stimulating Olcnnya4448-22-15 07:31:59 Test Item Value Reference Range Interpretation Comments TSH (test code = TSH) 1.000 mIU/mL 0.270-4.200 Lipid Yddsv1169-77-81 07:11:41 Test Item Value Reference Range Interpretation Comments Cholesterol Total 176 mg/dL 0-200 RISK OF HE ART (test code = DISEASEPublishe d by Cholesterol Total) [place] [employer] Maria G lyte Optimal Borderl ine Increased RiskC HOL <200 200-239 >240TRI G <150 150-199 >200HDL Male >60 <40HDL Fema le >60 <50LDL <100 130 -159 >160LDL Near op timal is 100-129 Triglycerides (test 68 mg/dL 9-200 [...] is LDL/HDL Ratio=L DL Calc/HDL Chol DRUG QHYLVH1603-11-32 13:01:00 Test Item Value Reference Range Interpretation Comments UDS Note (test code = See Note (12/19/16 8:01 UDS Note) AM) [facility] [id number] 13:01:00 Test Item Value Reference Range Interpretation Comments U Phencyc Scr (test Negative *NA*(12/19/16 code = U Phencyc Scr) 8:01 AM) [facility] [id number] 13:01:00 Test Item Value Reference Range Interpretation Comments U Opiate Scr (test Negative *NA*(12/19/16 code = U Opiate Scr) 8:01 AM) [facility] [id number] 13:01:00 Test Item Value Reference Range Interpretation Comments U Cannab Scr (test Negative *NA*(12/19/16 code = U Cannab Scr) 8:01 AM) [facility] [id number] 13:01:00 Test Item Value Reference Range Interpretation Comments U Amph Scr (test code Positive *ABN*(12/19/16 = U Amph Scr) 8:01 AM) [facility] [id number] 13:01:00 Test Item Value Reference Range Interpretation Comments U Ysabel Scr (test code Negative *NA*(12/19/16 = U Ysabel Scr) 8:01 AM) [facility] [id number] 13:01:00 Test Item Value Reference Range Interpretation Comments U Benzodia Scr (test Negative *NA*(12/19/16 code = U Benzodia Scr) 8:01 AM) [facility] [id number] 13:01:00 Test Item Value Reference Range Interpretation Comments U Cocaine Scr (test Negative *NA*(12/19/16 code = U Cocaine Scr) 8:01 AM) [facility] [id number] 13:01:00 Test Item Value Reference Range Interpretation Comments U Opiate Scr (test Negative *NA*(12/19/16 code = U Opiate Scr) 8:01 AM) [facility] [id number] 13:01:00 Test Item Value Reference Range Interpretation Comments U Cannab Scr (test Negative *NA*(12/19/16 code = U Cannab Scr) 8:01 AM) [facility] [id number] 13:01:00 Test Item Value Reference Range Interpretation Comments U Amph Scr (test code Positive *ABN*(12/19/16 = U Amph Scr) 8:01 AM) [facility] [id number] 13:01:00 Test Item Value Reference Range Interpretation Comments U Ysabel Scr (test code Negative *NA*(12/19/16 = U Ysabel Scr) 8:01 AM) [facility] [id number] 13:01:00 Test Item Value Reference Range Interpretation Comments U Benzodia Scr (test Negative *NA*(12/19/16 code = U Benzodia Scr) 8:01 AM) [facility] [id number] 13:01:00 Test Item Value Reference Range Interpretation Comments U Cocaine Scr (test Negative *NA*(12/19/16 code = U Cocaine Scr) 8:01 AM) [facility] [id number] 13:01:00 Test Item Value Reference Range Interpretation Comments UDS Note (test code = See Note (12/19/16 8:01 UDS Note) AM) [facility] [id number] 13:01:00 Test Item Value Reference Range Interpretation Comments U Phencyc Scr (test Negative *NA*(12/19/16 code = U Phencyc Scr) 8:01 AM) [facility] [id number] 03:24:00 Test Item Value Reference Range Interpretation Comments Creatinine Lvl (test code = Creatinine 0.90 0.50-1.40 Lvl) [facility]2017-02-19 03:24:00 Test Item Value Reference Range Interpretation Comments eGFR (test code = eGFR) 100 [facility]2017-02-19 03:24:00 Test Item Value Reference Range Interpretation Comments AGAP (test code = AGAP) 18.1 10.0-20.0 [facility]2017-02-19 03:24:00 Test Item Value Reference Range Interpretation Comments CO2 (test code = CO2) 22 24-32 [facility]2017-02-19 03:24:00 Test Item Value Reference Range Interpretation Comments Chloride Lvl (test code = Chloride Lvl) 97 95-109 [facility]2017-02-19 03:24:00 Test Item Value Reference Range Interpretation Comments Calcium Lvl (test code = Calcium Lvl) 8.7 8.5-10.5 [facility]2017-02-19 03:24:00 Test Item Value Reference Range Interpretation Comments Potassium Lvl (test code = Potassium 4.1 3.5-5.1 Lvl) [facility]2017-02-19 03:24:00 Test Item Value Reference Range Interpretation Comments Sodium Lvl (test code = Sodium Lvl) 133 135-145 [facility]2017-02-19 03:24:00 Test Item Value Reference Range Interpretation Comments Glucose Lvl (test code = Glucose Lvl) 92 70-99 [facility]2017-02-19 03:24:00 Test Item Value Reference Range Interpretation Comments BUN (test code = BUN) 12 7-22 [facility]2017-02-19 03:24:00 Test Item Value Reference Range Interpretation Comments Creatinine Lvl (test code = Creatinine 0.90 0.50-1.40 Lvl) [facility]2017-02-19 03:24:00 Test Item Value Reference Range Interpretation Comments eGFR (test code = eGFR) 100 [facility]2017-02-19 03:24:00 Test Item Value Reference Range Interpretation Comments AGAP (test code = AGAP) 18.1 10.0-20.0 [facility]2017-02-19 03:24:00 Test Item Value Reference Range Interpretation Comments CO2 (test code = CO2) 22 24-32 [facility]2017-02-19 03:24:00 Test Item Value Reference Range Interpretation Comments Chloride Lvl (test code = Chloride Lvl) 97 95-109 [facility]2017-02-19 03:24:00 Test Item Value Reference Range Interpretation Comments Calcium Lvl (test code = Calcium Lvl) 8.7 8.5-10.5 [facility]2017-02-19 03:24:00 Test Item Value Reference Range Interpretation Comments Potassium Lvl (test code = Potassium 4.1 3.5-5.1 Lvl) [facility]2017-02-19 03:24:00 Test Item Value Reference Range Interpretation Comments Sodium Lvl (test code = Sodium Lvl) 133 135-145 [facility]2017-02-19 03:24:00 Test Item Value Reference Range Interpretation Comments Glucose Lvl (test code = Glucose Lvl) 92 70-99 [facility]2017-02-19 03:24:00 Test Item Value Reference Range Interpretation Comments BUN (test code = BUN) 12 7-22 [facility]2017-02-19 02:24:00 Test Item Value Reference Range Interpretation Comments UDS Note (test code = See Note (11/18/16 8:24 UDS Note) PM) [facility]2017-02-19 02:24:00 Test Item Value Reference Range Interpretation Comments U Propoxyph Scr (test Negative *NA*(11/18/16 code = U Propoxyph Scr) 8:24 PM) [facility]2017-02-19 02:24:00 Test Item Value Reference Range Interpretation Comments U Methadone Scr (test Negative *NA*(11/18/16 code = U Methadone Scr) 8:24 PM) [facility]B[id number] 02:24:00 Test Item Value Reference Range Interpretation Comments Monocytes # (test code 0.7 See_Comment [Aut omated message] The = Monocytes #) system which generated this result tra nsmitted reference range : <=0.8. The reference r natasha was not used to int erpret this result as normal/abnormal . [facility] CenterKuccoyqCETMGDGFAM6429-33-97 02:24:00 Test Item Value Reference Range Interpretation Comments Basophils # (test code 0.1 See_Comment [Aut omated message] The = Basophils #) system which generated this result tra nsmitted reference range : <=0.2. The reference r natasha was not used to int erpret this result as normal/abnormal . [facility] CenterIeceklzUGFTEGHTQH9163-50-56 02:24:00 Test Item Value Reference Range Interpretation Comments Eosinophils # (test code 0.1 See_Comment [A utomated message] The = Eosinophils #) system [facility] h generated this result tra nsmitted reference range : <=0.5. The reference r natasha was not used to int erpret this result as normal/abnormal . [facility] CenterZfoasyfIIWQTJTRJI0171-84-08 02:24:00 Test Item Value Reference Range Interpretation Comments Segs (test code = Segs) 72.1 45.0-75.0 [facility] CenterPgfhjqcDNXXXSMOBG4256-05-09 02:24:00 Test Item Value Reference Range Interpretation Comments Lymphocytes (test code = Lymphocytes) 20.2 20.0-40.0 [facility] CenterHybefqaTPKUXQYZWK1499-07-52 02:24:00 Test Item Value Reference Range Interpretation Comments Monocytes (test code = Monocytes) 6.1 2.0-12.0 [facility] CenterYvpotlkXYQVWNVNVS8510-81-73 02:24:00 Test Item Value Reference Range Interpretation Comments Segs-Bands # (test code = Segs-Bands #) 8.2 1.5-8.1 [facility] CenterJvgtcorNWWFTKPHVD2578-21-54 02:24:00 Test Item Value Reference Range Interpretation Comments Eosinophils (test code = 0.9 See_Comment [A utomated message] The Eosinophils) system which ge nerated this result tra nsmitted reference range : <=4.0. The reference r natasha was not used to int erpret this result as normal/abnormal . [facility] CenterWlmzjemDPDJFQYTQI1609-08-52 02:24:00 Test Item Value Reference Range Interpretation Comments Basophils (test code = 0.7 See_Comment [Aut omated message] The Basophils) system which ge nerated this result tra nsmitted reference range : <=1.0. The reference r natasha was not used to int erpret this result as normal/abnormal . [facility] CenterPrxetgrTYIGFMVXMY8002-02-67 02:24:00 Test Item Value Reference Range Interpretation Comments Lymphocytes # (test code = Lymphocytes 2.3 1.0-5.5 #) [facility] CenterUueqwbtVQSIURDHUM6172-39-05 02:24:00 Test Item Value Reference Range Interpretation Comments RBC Morph (test code = Normal (11/18/16 8:24 RBC Morph) PM) [facility] CenterDbnzlrdTDWZBWAXFF5558-51-21 02:24:00 Test Item Value Reference Range Interpretation Comments Plt Morph (test code = Normal (11/18/16 8:24 Plt Morph) PM) [facility] CenterHjcfcosSSQTSPMWZX6755-62-15 02:24:00 Test Item Value Reference Range Interpretation Comments Hgb (test code = Hgb) 15.2 14.0-18.0 [facility] CenterUeoacwqXPQJCXVCTW9145-53-41 02:24:00 Test Item Value Reference Range Interpretation Comments WBC (test code = WBC) 11.3 3.7-10.4 [facility] CenterXmdvqcbROJVHMKKGW2428-19-47 02:24:00 Test Item Value Reference Range Interpretation Comments Hct (test code = Hct) 43.2 42.0-54.0 [facility] CenterHpueqmxSDIMZDNLZY6625-70-34 02:24:00 Test Item Value Reference Range Interpretation Comments MCHC (test code = MCHC) 35.1 32.0-36.0 [facility] CenterOwifnwxYUFSHOFDJX6225-65-01 02:24:00 Test Item Value Reference Range Interpretation Comments RBC (test code = RBC) 4.57 4.70-6.10 [facility] CenterYvyyxhwTGBAPHJLBR2910-07-72 02:24:00 Test Item Value Reference Range Interpretation Comments MCV (test code = MCV) 94.6 80.0-94.0 [facility] CenterWkcunkeDFNQJRIFZG5544-22-09 02:24:00 Test Item Value Reference Range Interpretation Comments RDW (test code = RDW) 12.5 11.5-14.5 [facility] CenterCzndaxwXMLTKCOZSO6180-26-26 02:24:00 Test Item Value Reference Range Interpretation Comments MCH (test code = MCH) 33.2 pg 27.0-31.0 [facility] CenterWdnlecxISPIWSYYYC3132-39-45 02:24:00 Test Item Value Reference Range Interpretation Comments MPV (test code = MPV) 6.6 7.4-10.4 [facility] CenterYxdpuwqXBVPFZPFJP2035-35-84 02:24:00 Test Item Value Reference Range Interpretation Comments Platelet (test code = Platelet) 231 133-450 [facility]TBUAGAQWBK5522-32-55 02:24:00 Test Item Value Reference Range Interpretation Comments PT (test code = PT) 13.1 s 12.0-14.7 [facility] KvlfddsKOUOLQYJMK5897-23-95 02:24:00 Test Item Value Reference Range Interpretation Comments INR (test code = INR) 0.97 0.85-1.17 [facility] [id number] 02:24:00 Test Item Value Reference Range Interpretation Comments PTT (test code = PTT) 27.1 s 22.9-35.8 [facility] [employer] [id number] 02:24:00 Test Item Value Reference Range Interpretation Comments ABO/Rh (test code = ABO/Rh) O NEG [facility] [employer] [id number] 02:24:00 Test Item Value Reference Range Interpretation Comments Antibody Scrn (test Negative (11/18/16 8:24 code = Antibody Scrn) PM) [facility] [employer] [id number] 02:24:00 Test Item Value Reference Range Interpretation Comments ABO/Rh (test code = ABO/Rh) O NEG [facility] [employer] [id number] 02:24:00 Test Item Value Reference Range Interpretation Comments Antibody Scrn (test Negative (11/18/16 8:24 code = Antibody Scrn) PM) [facility] [id number] 02:24:00 Test Item Value Reference Range Interpretation Comments U Cocaine Scr (test Positive *ABN*(11/18/16 code = U Cocaine Scr) 8:24 PM) [facility] [employer] [id number] 02:24:00 Test Item Value Reference Range Interpretation Comments U Benzodia Scr (test Negative *NA*(11/18/16 code = U Benzodia Scr) 8:24 PM) [facility] [employer] [id number] 02:24:00 Test Item Value Reference Range Interpretation Comments U Cocaine Scr (test Positive *ABN*(11/18/16 code = U Cocaine Scr) 8:24 PM) [facility] [id number] 02:24:00 Test Item Value Reference Range Interpretation Comments U Amph Scr (test code Negative *NA*(11/18/16 = U Amph Scr) 8:24 PM) [facility] [id number] 02:24:00 Test Item Value Reference Range Interpretation Comments U Opiate Scr (test Positive *ABN*(11/18/16 code = U Opiate Scr) 8:24 PM) [facility] [id number] 02:24:00 Test Item Value Reference Range Interpretation Comments U Cannab Scr (test Negative *NA*(11/18/16 code = U Cannab Scr) 8:24 PM) [facility] [id number] 02:24:00 Test Item Value Reference Range Interpretation Comments U Ysabel Scr (test code Negative *NA*(11/18/16 = U Ysabel Scr) 8:24 PM) [facility] [id number] 02:24:00 Test Item Value Reference Range Interpretation Comments U Phencyc Scr (test Negative *NA*(11/18/16 code = U Phencyc Scr) 8:24 PM) [facility] [id number] 02:24:00 Test Item Value Reference Range Interpretation Comments UDS Note (test code = See Note (11/18/16 8:24 UDS Note) PM) [facility] [id number] 02:24:00 Test Item Value Reference Range Interpretation Comments U Propoxyph Scr (test Negative *NA*(11/18/16 code = U Propoxyph Scr) 8:24 PM) [facility] [id number] 02:24:00 Test Item Value Reference Range Interpretation Comments U Methadone Scr (test Negative *NA*(11/18/16 code = U Methadone Scr) 8:24 PM) [facility] HospitalAereiubXXLCMKPYJO1331-14-57 02:24:00 Test Item Value Reference Range Interpretation Comments Monocytes # (test code 0.7 See_Comment [Aut omated message] The = Monocytes #) system which generated this result tra nsmitted reference range : <=0.8. The reference r natasha was not used to int erpret this result as normal/abnormal . [facility]IMJEPFIWQ2636[facility] 02:24:00 Test Item Value Reference Range Interpretation Comments Basophils # (test code 0.1 See_Comment [Aut omated message] The = Basophils #) system which generated this result tra nsmitted reference range : <=0.2. The reference r natasha was not used to int erpret this result as normal/abnormal . [facility]2017-02-19 02:24:00 Test Item Value Reference Range Interpretation Comments U Benzodia Scr (test Negative *NA*(11/18/16 code = U Benzodia Scr) 8:24 PM) [facility] [id number] 02:24:00 Test Item Value Reference Range Interpretation Comments Eosinophils # (test code 0.1 See_Comment [A utomated message] The = Eosinophils #) system wh h generated this result tra nsmitted reference range : <=0.5. The reference r natasha was not used to int erpret this result as normal/abnormal . [facility] CenterRzoytnnWFKJTIZXCX6679-90-85 02:24:00 Test Item Value Reference Range Interpretation Comments Segs (test code = Segs) 72.1 45.0-75.0 [facility] CenterJondhiaDDRYIRSTWW9667-34-49 02:24:00 Test Item Value Reference Range Interpretation Comments Lymphocytes (test code = Lymphocytes) 20.2 20.0-40.0 [facility] CenterCqpckmdABHIIADLWN9087-87-27 02:24:00 Test Item Value Reference Range Interpretation Comments Monocytes (test code = Monocytes) 6.1 2.0-12.0 [facility] CenterVqidhppBXFJWBTXAB9958-34-48 02:24:00 Test Item Value Reference Range Interpretation Comments Segs-Bands # (test code = Segs-Bands #) 8.2 1.5-8.1 [facility] CenterMnsprvnLXQLPVMHGF4402-81-41 02:24:00 Test Item Value Reference Range Interpretation Comments Eosinophils (test code = 0.9 See_Comment [A utomated message] The Eosinophils) system which ge nerated this result tra nsmitted reference range : <=4.0. The reference r natasha was not used to int erpret this result as normal/abnormal . [facility] CenterNdcddcfNMYUYXTJSI3829-59-42 02:24:00 Test Item Value Reference Range Interpretation Comments Basophils (test code = 0.7 See_Comment [Aut omated message] The Basophils) system which ge nerated this result tra nsmitted reference range : <=1.0. The reference r natasha was not used to int erpret this result as normal/abnormal . [facility] CenterRrvzuzvCVTUCZTDEO7600-52-15 02:24:00 Test Item Value Reference Range Interpretation Comments Lymphocytes # (test code = Lymphocytes 2.3 1.0-5.5 #) [facility] CenterEccnbkjGXPEZNDOKY8855-41-16 02:24:00 Test Item Value Reference Range Interpretation Comments RBC Morph (test code = Normal (11/18/16 8:24 RBC Morph) PM) [facility] CenterBmedqnvXCREQWDYLT3373-95-05 02:24:00 Test Item Value Reference Range Interpretation Comments Plt Morph (test code = Normal (11/18/16 8:24 Plt Morph) PM) [facility]2017-02-19 02:24:00 Test Item Value Reference Range Interpretation Comments U Amph Scr (test code Negative *NA*(11/18/16 = U Amph Scr) 8:24 PM) [facility] CenterPpmvynmOJIRRGRBYR8634-25-80 02:24:00 Test Item Value Reference Range Interpretation Comments Hgb (test code = Hgb) 15.2 14.0-18.0 [facility] CenterRogikboTBXKQUABLN9816-04-50 02:24:00 Test Item Value Reference Range Interpretation Comments WBC (test code = WBC) 11.3 3.7-10.4 [facility] CenterRovpokiDLYGBUFAFB6784-19-39 02:24:00 Test Item Value Reference Range Interpretation Comments Hct (test code = Hct) 43.2 42.0-54.0 [facility] CenterPflydfaEKNDGYUKSB2066-17-25 02:24:00 Test Item Value Reference Range Interpretation Comments MCHC (test code = MCHC) 35.1 32.0-36.0 [facility] CenterPdlwpsrZNOUWGUKLL9781-19-31 02:24:00 Test Item Value Reference Range Interpretation Comments RBC (test code = RBC) 4.57 4.70-6.10 [facility] CenterJmpbovhPFFMPQKUJJ7159-06-54 02:24:00 Test Item Value Reference Range Interpretation Comments MCV (test code = MCV) 94.6 80.0-94.0 [facility] CenterLmtecjyMARZKUPKBD5959-57-11 02:24:00 Test Item Value Reference Range Interpretation Comments RDW (test code = RDW) 12.5 11.5-14.5 [facility] CenterAxgsrgjLGUTGWKIDK8603-71-11 02:24:00 Test Item Value Reference Range Interpretation Comments MCH (test code = MCH) 33.2 pg 27.0-31.0 [facility] CenterNrxilxzVBPFWAKJVR3889-15-60 02:24:00 Test Item Value Reference Range Interpretation Comments MPV (test code = MPV) 6.6 7.4-10.4 [facility] CenterPhwmlzsAOFEWQTFLM0695-27-43 02:24:00 Test Item Value Reference Range Interpretation Comments Platelet (test code = Platelet) 231 133-450 [facility]2017-02-19 02:24:00 Test Item Value Reference Range Interpretation Comments U Opiate Scr (test Positive *ABN*(11/18/16 code = U Opiate Scr) 8:24 PM) [facility] CenterJuzdwegYQBTDFPRFZ7265-26-76 02:24:00 Test Item Value Reference Range Interpretation Comments PT (test code = PT) 13.1 s 12.0-14.7 [facility] CenterGzygxrbIUGVPXVLSG2029-67-71 02:24:00 Test Item Value Reference Range Interpretation Comments INR (test code = INR) 0.97 0.85-1.17 [facility] CenterBtrjdroPXVJJOAPXU1903-58-50 02:24:00 Test Item Value Reference Range Interpretation Comments PTT (test code = PTT) 27.1 s 22.9-35.8 [facility]2017-02-19 02:24:00 Test Item Value Reference Range Interpretation Comments U Cannab Scr (test Negative *NA*(11/18/16 code = U Cannab Scr) 8:24 PM) [facility]2017-02-19 02:24:00 Test Item Value Reference Range Interpretation Comments U Ysabel Scr (test code Negative *NA*(11/18/16 = U Ysabel Scr) 8:24 PM) [facility]2017-02-19 02:24:00 Test Item Value Reference Range Interpretation Comments U Phencyc Scr (test Negative *NA*(11/18/16 code = U Phencyc Scr) 8:24 PM) [facility]2017-02-11 08:16:00 Test Item Value Reference Range Interpretation Comments Lactic Acid Lvl (test code = Lactic 1.5 0.5-2.2 Acid Lvl) [facility]2017-02-11 08:16:00 Test Item Value Reference Range Interpretation Comments Lactic Acid Lvl (test code = Lactic 1.5 0.5-2.2 Acid Lvl) [facility]2017-02-11 03:15:00 Test Item Value Reference Range Interpretation Comments Lactic Acid Lvl (test code = Lactic 2.9 0.5-2.2 Acid Lvl) [facility]2017-02-11 03:15:00 Test Item Value Reference Range Interpretation Comments Lactic Acid Lvl (test code = Lactic 2.9 0.5-2.2 Acid Lvl) [facility]2017-02-10 15:09:00 Test Item Value Reference Range Interpretation Comments Lactic Acid Lvl (test code = Lactic 3.9 0.5-2.2 Acid Lvl) [facility]2017-02-10 15:09:00 Test Item Value Reference Range Interpretation Comments Lactic Acid Lvl (test code = Lactic 3.9 0.5-2.2 Acid Lvl) [facility] CenterBhcjpleTQBBTICOZD5949-11-10 08:26:00 Test Item Value Reference Range Interpretation Comments INR (test code = INR) 1.12 0.85-1.17 [facility] CenterBktrankCTPJEVNDVO9979-95-81 08:26:00 Test Item Value Reference Range Interpretation Comments PT (test code = PT) 14.6 s 12.0-14.7 [facility] CenterRalxtziSIMRFAXXCX6200-05-25 08:26:00 Test Item Value Reference Range Interpretation Comments INR (test code = INR) 1.12 0.85-1.17 [facility] CenterZvqoeaqMPHVXOXZII0710-16-75 08:26:00 Test Item Value Reference Range Interpretation Comments PT (test code = PT) 14.6 s 12.0-14.7 [facility]2017-02-10 07:15:02 Test Item Value Reference Range Interpretation Comments UA RBC (test code = 0-2 /HPF See_Comment [Automa sharri message] The UA RBC) system which ge nerated this result tra nsmitted reference range : <=2. The reference range was not used to interpr et this result as ahmet l/abnormal. [facility]2017-02-10 07:15:02 Test Item Value Reference Range Interpretation Comments UA WBC (test code = UA None Seen (11/10/16 1:15 WBC) AM) [facility]2017-02-10 07:15:02 Test Item Value Reference Range Interpretation Comments UA Sq Epi (test code = None Seen (11/10/16 1:15 UA Sq Epi) AM) [facility] AND [id number] 07:15:02 Test Item Value Reference Range Interpretation Comments UA Bacteria (test code = None Seen (11/10/16 UA Bacteria) 1:15 AM) [facility] AND [id number] 07:15:02 Test Item Value Reference Range Interpretation Comments UA Nitrite (test code Negative (11/10/16 1:15 = UA Nitrite) AM) [facility] AND [id number] 07:15:02 Test Item Value Reference Range Interpretation Comments UA Leuk Est (test Negative (11/10/16 1:15 code = UA Leuk Est) AM) [facility] AND [id number] 07:15:02 Test Item Value Reference Range Interpretation Comments UA Color (test code = Yellow *NA*(11/10/16 UA Color) 1:15 AM) [facility] AND [id number] 07:15:02 Test Item Value Reference Range Interpretation Comments UA pH (test code = UA pH) 5.5 1 5.0-8.0 [facility] AND [id number] 07:15:02 Test Item Value Reference Range Interpretation Comments UA Protein (test code Negative (11/10/16 1:15 = UA Protein) AM) [facility] AND [id number] 07:15:02 Test Item Value Reference Range Interpretation Comments UA Glucose (test code Negative (11/10/16 1:15 = UA Glucose) AM) [facility] AND [id number] 07:15:02 Test Item Value Reference Range Interpretation Comments UA Ketones (test code = UA Ketones) 15 mg/dL [facility] AND [id number] 07:15:02 Test Item Value Reference Range Interpretation Comments UA Bili (test code = Negative *NA*(11/10/16 UA Bili) 1:15 AM) [facility] AND [id number] 07:15:02 Test Item Value Reference Range Interpretation Comments UA Blood (test code = Negative (11/10/16 1:15 UA Blood) AM) [facility] AND [id number] 07:15:02 Test Item Value Reference Range Interpretation Comments UA Urobilinogen (test code = UA 0.2 0.1-1.0 Urobilinogen) [facility] AND [id number] 07:15:02 Test Item Value Reference Range Interpretation Comments UA Turbidity (test code = Clear (11/10/16 1:15 UA Turbidity) AM) [facility] [id number] 07:15:02 Test Item Value Reference Range Interpretation Comments UA Spec Grav (test code = UA Spec 1.047 1 Grav) [facility] AND [id number] 07:15:02 Test Item Value Reference Range Interpretation Comments UA RBC (test code = 0-2 /HPF See_Comment [Automa sharri message] The UA RBC) system which ge nerated this result tra nsmitted reference range : <=2. The reference range was not used to interpr et this result as ahmet l/abnormal. [facility] AND [id number] 07:15:02 Test Item Value Reference Range Interpretation Comments UA WBC (test code = UA None Seen (11/10/16 1:15 WBC) AM) [facility] AND [id number] 07:15:02 Test Item Value Reference Range Interpretation Comments UA Sq Epi (test code = None Seen (11/10/16 1:15 UA Sq Epi) AM) [facility] AND [id number] 07:15:02 Test Item Value Reference Range Interpretation Comments UA Bacteria (test code = None Seen (11/10/16 UA Bacteria) 1:15 AM) [facility] AND [id number] 07:15:02 Test Item Value Reference Range Interpretation Comments UA Nitrite (test code Negative (11/10/16 1:15 = UA Nitrite) AM) [facility] AND [id number] 07:15:02 Test Item Value Reference Range Interpretation Comments UA Leuk Est (test Negative (11/10/16 1:15 code = UA Leuk Est) AM) [facility] AND [id number] 07:15:02 Test Item Value Reference Range Interpretation Comments UA Color (test code = Yellow *NA*(11/10/16 UA Color) 1:15 AM) [facility] AND [id number] 07:15:02 Test Item Value Reference Range Interpretation Comments UA pH (test code = UA pH) 5.5 1 5.0-8.0 [facility] AND [id number] 07:15:02 Test Item Value Reference Range Interpretation Comments UA Protein (test code Negative (11/10/16 1:15 = UA Protein) AM) [facility] [id number] 07:15:02 Test Item Value Reference Range Interpretation Comments UA Glucose (test code Negative (11/10/16 1:15 = UA Glucose) AM) [facility] [id number] 07:15:02 Test Item Value Reference Range Interpretation Comments UA Ketones (test code = UA Ketones) 15 mg/dL [facility] [id number] 07:15:02 Test Item Value Reference Range Interpretation Comments UA Bili (test code = Negative *NA*(11/10/16 UA Bili) 1:15 AM) [facility] [id number] 07:15:02 Test Item Value Reference Range Interpretation Comments UA Blood (test code = Negative (11/10/16 1:15 UA Blood) AM) [facility] [id number] 07:15:02 Test Item Value Reference Range Interpretation Comments UA Urobilinogen (test code = UA 0.2 0.1-1.0 Urobilinogen) [facility] [id number] 07:15:02 Test Item Value Reference Range Interpretation Comments UA Turbidity (test code = Clear (11/10/16 1:15 UA Turbidity) AM) [facility] [id number] 07:15:02 Test Item Value Reference Range Interpretation Comments UA Spec Grav (test code = UA Spec 1.047 1 Grav) [facility] [id number] 07:15:00 Test Item Value Reference Range Interpretation Comments UDS Note (test code = See Note (11/10/16 1:15 UDS Note) AM) [facility] [id number] 07:15:00 Test Item Value Reference Range Interpretation Comments U Opiate Scr (test Positive *ABN*(11/10/16 code = U Opiate Scr) 1:15 AM) [facility] [id number] 07:15:00 Test Item Value Reference Range Interpretation Comments U Phencyc Scr (test Negative *NA*(11/10/16 code = U Phencyc Scr) 1:15 AM) [facility] [id number] 07:15:00 Test Item Value Reference Range Interpretation Comments U Cannab Scr (test Negative *NA*(11/10/16 code = U Cannab Scr) 1:15 AM) [facility] [id number] 07:15:00 Test Item Value Reference Range Interpretation Comments U Cocaine Scr (test Positive *ABN*(11/10/16 code = U Cocaine Scr) 1:15 AM) [facility] [id number] 07:15:00 Test Item Value Reference Range Interpretation Comments U Ysabel Scr (test code Negative *NA*(11/10/16 = U Ysabel Scr) 1:15 AM) [facility] [id number] 07:15:00 Test Item Value Reference Range Interpretation Comments U Benzodia Scr (test Negative *NA*(11/10/16 code = U Benzodia Scr) 1:15 AM) [facility] [id number] 07:15:00 Test Item Value Reference Range Interpretation Comments U Amph Scr (test code Negative *NA*(11/10/16 = U Amph Scr) 1:15 AM) [facility] [id number] 07:15:00 Test Item Value Reference Range Interpretation Comments UDS Note (test code = See Note (11/10/16 1:15 UDS Note) AM) [facility] [id number] 07:15:00 Test Item Value Reference Range Interpretation Comments U Opiate Scr (test Positive *ABN*(11/10/16 code = U Opiate Scr) 1:15 AM) [facility] [id number] 07:15:00 Test Item Value Reference Range Interpretation Comments U Phencyc Scr (test Negative *NA*(11/10/16 code = U Phencyc Scr) 1:15 AM) [facility] [id number] 07:15:00 Test Item Value Reference Range Interpretation Comments U Cannab Scr (test Negative *NA*(11/10/16 code = U Cannab Scr) 1:15 AM) [facility] [id number] 07:15:00 Test Item Value Reference Range Interpretation Comments U Cocaine Scr (test Positive *ABN*(11/10/16 code = U Cocaine Scr) 1:15 AM) [facility] [id number] 07:15:00 Test Item Value Reference Range Interpretation Comments U Ysabel Scr (test code Negative *NA*(11/10/16 = U Ysabel Scr) 1:15 AM) [facility] [id number] 07:15:00 Test Item Value Reference Range Interpretation Comments U Benzodia Scr (test Negative *NA*(11/10/16 code = U Benzodia Scr) 1:15 AM) [facility] [id number] 07:15:00 Test Item Value Reference Range Interpretation Comments U Amph Scr (test code Negative *NA*(11/10/16 = U Amph Scr) 1:15 AM) [id number] 03:40:00 Test Item Value Reference Range Interpretation Comments Creatinine Lvl (test code = Creatinine 1.15 0.50-1.40 Lvl) [facility] CenterYigkskeKZSRLMPIKIXL0921-27-06 03:40:00 Test Item Value Reference Range Interpretation Comments Calcium Lvl (test code = Calcium Lvl) 9.0 8.5-10.5 [facility] CenterRwhiqmkPXJSPBODAS6644-86-94 03:40:00 Test Item Value Reference Range Interpretation Comments Segs-Bands # (test code = Segs-Bands #) 10.5 1.5-8.1 [facility] Cent[id number] 03:40:00 Test Item Value Reference Range Interpretation Comments Eosinophils (test code = 0.5 See_Comment [A utomated message] The Eosinophils) system which ge nerated this result tra nsmitted reference range : <=4.0. The reference r natasha was not used to int erpret this result as normal/abnormal . [facility] [id number] 03:40:00 Test Item Value Reference Range Interpretation Comments Basophils (test code = 1.1 See_Comment [Aut omated message] The Basophils) system which ge nerated this result tra nsmitted reference range : <=1.0. The reference r natasha was not used to int erpret this result as normal/abnormal . [facility] [id number] 03:40:00 Test Item Value Reference Range Interpretation Comments Lymphocytes # (test code = Lymphocytes 4.0 1.0-5.5 #) [facility] Cent[id number] 03:40:00 Test Item Value Reference Range Interpretation Comments Monocytes # (test code 0.8 See_Comment [Aut omated message] The = Monocytes #) system which generated this result tra nsmitted reference range : <=0.8. The reference r natasha was not used to int erpret this result as normal/abnormal . [facility] C[id number] 03:40:00 Test Item Value Reference Range Interpretation Comments Eosinophils # (test code 0.1 See_Comment [A utomated message] The = Eosinophils #) system whic h generated this result tra nsmitted reference range : <=0.5. The reference r natasha was not used to int erpret this result as normal/abnormal . [facility] CenterWjfuokdRUGAZGFWJK0105-87-74 03:40:00 Test Item Value Reference Range Interpretation Comments Basophils # (test code 0.2 See_Comment [Aut omated message] The = Basophils #) system which generated this result tra nsmitted reference range : <=0.2. The reference r natasha was not used to int erpret this result as normal/abnormal . [facility] CenterUdtfqibRLRWRVOVTA3739-17-31 03:40:00 Test Item Value Reference Range Interpretation Comments Segs (test code = Segs) 67.1 45.0-75.0 [facility] CenterHdzevabNTYSKTWJUC1341-11-24 03:40:00 Test Item Value Reference Range Interpretation Comments Lymphocytes (test code = Lymphocytes) 26.0 20.0-40.0 [facility] CenterHfnvmlvFGAGPWQLTA1967 03:40:00 Test Item Value Reference Range Interpretation Comments Monocytes (test code = Monocytes) 5.3 2.0-12.0 [facility] CenterXsqjfvuEPASFCYKLG0752-24-87 03:40:00 Test Item Value Reference Range Interpretation Comments RDW (test code = RDW) 12.8 11.5-14.5 [facility] CenterPzzskrnUFOGPUCZQZ1434-25-67 03:40:00 Test Item Value Reference Range Interpretation Comments Platelet (test code = Platelet) 189 133-450 [facility] CenterGavjcqyDXLPBPGCAG2717-25-13 03:40:00 Test Item Value Reference Range Interpretation Comments MPV (test code = MPV) 6.1 7.4-10.4 [facility] CenterLsevrufBCKQYOFXNN4636-79-22 03:40:00 Test Item Value Reference Range Interpretation Comments Hgb (test code = Hgb) 15.9 14.0-18.0 [facility] CenterEkylapuEJAPVEWZHX6655-96-18 03:40:00 Test Item Value Reference Range Interpretation Comments Hct (test code = Hct) 45.4 42.0-54.0 [facility] CenterTjxprjnDKMZFKPVFR6181-84-10 03:40:00 Test Item Value Reference Range Interpretation Comments MCV (test code = MCV) 95.1 80.0-94.0 [facility] CenterXgnsjyoKQYTASVBUI6681-89-40 03:40:00 Test Item Value Reference Range Interpretation Comments MCH (test code = MCH) 33.3 pg 27.0-31.0 [facility] CenterDuuuhfjQLPREXOLFI9195-66-27 03:40:00 Test Item Value Reference Range Interpretation Comments MCHC (test code = MCHC) 35.0 32.0-36.0 [facility]EolcbmfRRHDNCLXCF6527-01-36 03:40:00 Test Item Value Reference Range Interpretation Comments WBC (test code = WBC) 15.6 3.7-10.4 [facility] CenterQjlksogVVTTQGYUTV8040-00-01 03:40:00 Test Item Value Reference Range Interpretation Comments RBC (test code = RBC) 4.77 4.70-6.10 [facility] CenterCygrfzsYQIZDGJOJM8932-50-21 03:40:00 Test Item Value Reference Range Interpretation Comments G-value Rapid (test code = G-value 3.7 5.0-11.6 Rapid) [facility] CenterUkyutlkADBAUAWWJJ6601-71-37 03:40:00 Test Item Value Reference Range Interpretation Comments Max Amplitude Rapid (test code = Max 42 mm 52-71 Amplitude Rapid) [facility] CenterYodbhbzBXWMXACWMN5367-05-08 03:40:00 Test Item Value Reference Range Interpretation Comments Estimated % Lysis Rapid 3.4 See_Comment [Au tomated message] The (test code = Estimated syste m which generated % Lysis Rapid) this result t ransmitted reference range : <=7.5. The reference r natasha was not used to int erpret this result as normal/abnormal . [facility] CenterKqlbrqtVGUTKHXICL8532-04-28 03:40:00 Test Item Value Reference Range Interpretation Comments Split Point Rapid (test code = Split 0.7 min Point Rapid) [facility] CenterVuinjsmINUTJERSWC0996-98-65 03:40:00 Test Item Value Reference Range Interpretation Comments R-time Rapid (test code = R-time 1.1 min 0.4-0.7 Rapid) [facility] CenterCadpereMMFDACGCKC8223-17-23 03:40:00 Test Item Value Reference Range Interpretation Comments ACT (TEG) Rapid (test code = ACT (TEG) 152 s 86-118 Rapid) [facility] CenterUjbhtauVXJTCPHENX6968-35-65 03:40:00 Test Item Value Reference Range Interpretation Comments K-time Rapid (test code = K-time 4.1 min 0.6-2.3 Rapid) [facility] CenterNnqsvhvNBIZKGPRIW9437-16-72 03:40:00 Test Item Value Reference Range Interpretation Comments Angle Rapid (test code = Angle 48 degrees 64-80 Rapid) [place] [id number] 03:40:00 Test Item Value Reference Range Interpretation Comments Etoh (%) (test code = Etoh (%)) 0.148 [place] [id number] 03:40:00 Test Item Value Reference Range Interpretation Comments Ethanol Lvl (test code = Ethanol Lvl) 148 [facility]IvkxvbhQMNKMANPMAMP6649-94-83 03:40:00 Test Item Value Reference Range Interpretation Comments AGAP (test code = AGAP) 18.2 10.0-20.0 [facility] CenterDokbygzOXSCQGFZPAEJ2230-39-54 03:40:00 Test Item Value Reference Range Interpretation Comments eGFR (test code = eGFR) 86 [facility] CenterAbfijytJYYVNWRTZWNL4651-22-18 03:40:00 Test Item Value Reference Range Interpretation Comments Sodium Lvl (test code = Sodium Lvl) 137 135-145 [facility] CenterGwarcxfXFQJRSHXYCTL1137-17-97 03:40:00 Test Item Value Reference Range Interpretation Comments CO2 (test code = CO2) 24 24-32 [facility] CenterJiutgnnRIHJRBQDHMEG8032-01-40 03:40:00 Test Item Value Reference Range Interpretation Comments Chloride Lvl (test code = Chloride Lvl) 98 95-109 [facility] CenterZnnwzuiRZSFXYXRALVH7134-05-37 03:40:00 Test Item Value Reference Range Interpretation Comments Potassium Lvl (test code = Potassium 3.2 3.5-5.1 Lvl) [facility] CenterMmhwwxdNPZCIOQMQGDN2035-89-79 03:40:00 Test Item Value Reference Range Interpretation Comments BUN (test code = BUN) 14 7-22 [facility] CenterWkmijapWCRTDBNAPZXI2610-40-43 03:40:00 Test Item Value Reference Range Interpretation Comments Glucose Lvl (test code = Glucose Lvl) 80 70-99 [facility] CenterYmcebdvDNPYAIJZEJQO4862-15-90 03:40:00 Test Item Value Reference Range Interpretation Comments Creatinine Lvl (test code = Creatinine 1.15 0.50-1.40 Lvl) [facility] CenterPioioflTVYMRNHURXUJ3823-78-95 03:40:00 Test Item Value Reference Range Interpretation Comments Calcium Lvl (test code = Calcium Lvl) 9.0 8.5-10.5 [facility] CenterShihbtpBEJUUROVPZ9152-51-48 03:40:00 Test Item Value Reference Range Interpretation Comments Segs-Bands # (test code = Segs-Bands #) 10.5 1.5-8.1 [facility] CenterQswggzjEQXHIUYQWY6407-13-87 03:40:00 Test Item Value Reference Range Interpretation Comments Eosinophils (test code = 0.5 See_Comment [A utomated message] The Eosinophils) system which ge nerated this result tra nsmitted reference range : <=4.0. The reference r natasha was not used to int erpret this result as normal/abnormal . [facility] CenterVruskwiGJTVHNVEVS8659-74-15 03:40:00 Test Item Value Reference Range Interpretation Comments Basophils (test code = 1.1 See_Comment [Aut omated message] The Basophils) system which ge nerated this result tra nsmitted reference range : <=1.0. The reference r natasha was not used to int erpret this result as normal/abnormal . [facility] CenterAhftpwfRGUVPCVZGM8539-05-68 03:40:00 Test Item Value Reference Range Interpretation Comments Lymphocytes # (test code = Lymphocytes 4.0 1.0-5.5 #) [facility] CenterIzfyestWJKDXSDMWZ3441-34-16 03:40:00 Test Item Value Reference Range Interpretation Comments Monocytes # (test code 0.8 See_Comment [Aut omated message] The = Monocytes #) system which generated this result tra nsmitted reference range : <=0.8. The reference r natasha was not used to int erpret this result as normal/abnormal . [facility] CenterSrxdyfkTSSAZDCBFZ3615-66-73 03:40:00 Test Item Value Reference Range Interpretation Comments Eosinophils # (test code 0.1 See_Comment [A utomated message] The = Eosinophils #) system whic h generated this result tra nsmitted reference range : <=0.5. The reference r natasha was not used to int erpret this result as normal/abnormal . [facility] CenterOpzqmrhSCSVHVDWPS4582-39-63 03:40:00 Test Item Value Reference Range Interpretation Comments Basophils # (test code 0.2 See_Comment [Aut omated message] The = Basophils #) system which generated this result tra nsmitted reference range : <=0.2. The reference r natasha was not used to int erpret this result as normal/abnormal . [facility] CenterLlsyzzkEJMGYOUHKE9898-17-51 03:40:00 Test Item Value Reference Range Interpretation Comments Segs (test code = Segs) 67.1 45.0-75.0 [facility] CenterOjkwzylCDYJWZSWFG0625-58-53 03:40:00 Test Item Value Reference Range Interpretation Comments Lymphocytes (test code = Lymphocytes) 26.0 20.0-40.0 [facility] CenterLtrzneaQPWCHXJASC6804-39-79 03:40:00 Test Item Value Reference Range Interpretation Comments Monocytes (test code = Monocytes) 5.3 2.0-12.0 [facility] CenterFwgbgjtRIUCTGMSMF3332-89-64 03:40:00 Test Item Value Reference Range Interpretation Comments RDW (test code = RDW) 12.8 11.5-14.5 [facility] CenterCyyjieoTGBJJXCEKT1270-51-16 03:40:00 Test Item Value Reference Range Interpretation Comments Platelet (test code = Platelet) 189 133-450 [facility] CenterImvnwdsOOUQSMLZUM0573-22-85 03:40:00 Test Item Value Reference Range Interpretation Comments MPV (test code = MPV) 6.1 7.4-10.4 [facility] CenterCmrrrbiBLDNFMYKPU8413-50-46 03:40:00 Test Item Value Reference Range Interpretation Comments Hgb (test code = Hgb) 15.9 14.0-18.0 [facility] CenterBvcemefXSUJMLUPPY0180-92-59 03:40:00 Test Item Value Reference Range Interpretation Comments Hct (test code = Hct) 45.4 42.0-54.0 [facility] CenterHrwuezrOMDBIZTSKF5776-41-22 03:40:00 Test Item Value Reference Range Interpretation Comments MCV (test code = MCV) 95.1 80.0-94.0 [facility] CenterCjarzcyBTYVSRACXE9280-67-08 03:40:00 Test Item Value Reference Range Interpretation Comments MCH (test code = MCH) 33.3 pg 27.0-31.0 [facility] CenterOhklzfeNBVLASSKJR9056-76-31 03:40:00 Test Item Value Reference Range Interpretation Comments MCHC (test code = MCHC) 35.0 32.0-36.0 [facility] CenterIibadtxYAOZBVDSOU9083-37-50 03:40:00 Test Item Value Reference Range Interpretation Comments WBC (test code = WBC) 15.6 3.7-10.4 [facility] CenterVyhymmcXMNLPTZVRB6435-19-21 03:40:00 Test Item Value Reference Range Interpretation Comments RBC (test code = RBC) 4.77 4.70-6.10 [facility] CenterHfmhhfoDCPNLWRQOJ3387-66-10 03:40:00 Test Item Value Reference Range Interpretation Comments G-value Rapid (test code = G-value 3.7 5.0-11.6 Rapid) [facility] CenterPsyumfrCAXIXNFQQH9477-11-69 03:40:00 Test Item Value Reference Range Interpretation Comments Max Amplitude Rapid (test code = Max 42 mm 52-71 Amplitude Rapid) [facility] CenterOcnpuyiJTTSNIEWQY7484-92-28 03:40:00 Test Item Value Reference Range Interpretation Comments Estimated % Lysis Rapid 3.4 See_Comment [Au tomated message] The (test code = Estimated syste m which generated % Lysis Rapid) this result t ransmitted reference range : <=7.5. The reference r natasha was not used to int erpret this result as normal/abnormal . [facility] CenterPntoaoeENKBOWMRMA8670-69-89 03:40:00 Test Item Value Reference Range Interpretation Comments Split Point Rapid (test code = Split 0.7 min Point Rapid) [facility] CenterIgmgfczHQKDLZWPBC6622-91-07 03:40:00 Test Item Value Reference Range Interpretation Comments R-time Rapid (test code = R-time 1.1 min 0.4-0.7 Rapid) [facility] CenterXlpzjbnIMHZNJWPZC2123-83-00 03:40:00 Test Item Value Reference Range Interpretation Comments ACT (TEG) Rapid (test code = ACT (TEG) 152 s 86-118 Rapid) [facility] CenterSnwxqqeFVIMSRWXGP8961-66-09 03:40:00 Test Item Value Reference Range Interpretation Comments K-time Rapid (test code = K-time 4.1 min 0.6-2.3 Rapid) [facility]IM[facility]JBKUO9002[facility] 03:40:00 Test Item Value Reference Range Interpretation Comments Angle Rapid (test code = Angle 48 degrees 64-80 Rapid) [facility]RqvdirdEPDKUWAMZM0735-37-73 03:40:00 Test Item Value Reference Range Interpretation Comments Etoh (%) (test code = Etoh (%)) 0.148 [place] [id number] 03:40:00 Test Item Value Reference Range Interpretation Comments Ethanol Lvl (test code = Ethanol Lvl) 148 [facility] CenterCvzumwqVSBFQVLLJTUH8120-11-06 03:40:00 Test Item Value Reference Range Interpretation Comments AGAP (test code = AGAP) 18.2 10.0-20.0 [facility] CenterVwctnywLKWLXAAGQYKM6625-79-87 03:40:00 Test Item Value Reference Range Interpretation Comments eGFR (test code = eGFR) 86 [facility] CenterAfykqmcTLOMOJVVQPBJ1148-95-61 03:40:00 Test Item Value Reference Range Interpretation Comments Sodium Lvl (test code = Sodium Lvl) 137 135-145 [facility] CenterHlboqeqQMNJKYTOROPZ3352-85-00 03:40:00 Test Item Value Reference Range Interpretation Comments CO2 (test code = CO2) 24 24-32 [facility] CenterWteiiugLSOGUFVJJWPJ4678-14-16 03:40:00 Test Item Value Reference Range Interpretation Comments Chloride Lvl (test code = Chloride Lvl) 98 95-109 [facility] CenterJyiwzahABRASEGXDGUQ1112-94-30 03:40:00 Test Item Value Reference Range Interpretation Comments Potassium Lvl (test code = Potassium 3.2 3.5-5.1 Lvl) [facility] CenterEeeqwzdWPNKRYPQUKYZ4258-90-28 03:40:00 Test Item Value Reference Range Interpretation Comments BUN (test code = BUN) 14 7-22 [facility] CenterDjzqapkYAJDGOBMYUWN6408-88-59 03:40:00 Test Item Value Reference Range Interpretation Comments Glucose Lvl (test code = Glucose Lvl) 80 70-99 [facility] [id number] 03:38:00 Test Item Value Reference Range Interpretation Comments ABO/Rh (test code = ABO/Rh) O NEG [facility] CFTDTUD1223-45-11 03:38:00 Test Item Value Reference Range Interpretation Comments Antibody Scrn (test Negative (11/09/16 9:38 code = Antibody Scrn) PM) [facility] [id number] 03:38:00 Test Item Value Reference Range Interpretation Comments ABO/Rh (test code = ABO/Rh) O NEG [facility] NOVQUBF5793-17-24 03:38:00 Test Item Value Reference Range Interpretation Comments Antibody Scrn (test Negative (11/09/16 9:38 code = Antibody Scrn) PM) [facility]
[2022-07-17 16:11] LABS: Urine Blood Negative (Negative); Urine Glucose Negative (Negative); Urine Protein Negative (Negative); Urine Specific Gravity >=1.030 (1.005-1.030); Urine pH 5.5 (5.0-7.0)
[2022-07-17 16:27] LABS: Urine Mucus Slight /HPF (None Seen); Urine RBC <5 /HPF (None Seen)
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
[2022-07-17] MEDS ORDERED: KETOROLAC 30 MG/ML INJ ONE (17:43)
[2022-07-17 18:34] VITALS: TEMP 98
[2022-07-17 18:35] VITALS: O2SAT 100
[2022-07-17 18:36] VITALS: BP 115/68
== END 2022-07-17 18:18 | disposition home or self-care (01) ==
LOC: ER 15:17
DX: N50.82 Scrotal pain (principal); V09.20XA Pedestrian injured in traffic accident involving unspecified motor vehicles, initial encounter; Y93.89 Activity, other specified; Y92.488 Other paved roadways as the place of occurrence of the external cause; F17.210 Nicotine dependence, cigarettes, uncomplicated; F41.9 Anxiety disorder, unspecified; F32.A Depression, unspecified
CPT/HCPCS: 76870; 81003; 81015; 96372; 99284

== ENCOUNTER 2023-05-07 09:38 | Emergency (ER) | payer OTHER ==
--- OUTSIDE RECORDS SUMMARY | 2023-05-07 09:58 | XMS REPORT | Continuity of Care Document ---
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 o f (PF)) 15:42: 16:32 Push, [place] injection 31 :33 Q5MIN PRN, Medi mele 25 mcg 4 doses, Branch Starting on 11/5/22 at 1042, Until 08/05/22 at 1132, Routine, Pain (scale 4-6), PACU HYDROmorpho 2021-10- No .2mg 0.2 mg, Un whit ne 10-05 Slow IV ity of (DILAUDID) 15:41: 00:29 Push, [place] injection 23 :20 [id number], Medica l 0.2 mg 10 doses, Branch Starting on 08/05/22 at 1041, Until 08/05/22 at 1929, Routine, Pain (scale 7-10)
U se approved by (Faculty): PACU USE -ANESTHESI A SERVICE-HY DROMORPHON E INJECTIONS ondansetron 2021-10 Yes 4mg 4 mg, Slow Univers (ZOFRAN 10-05 IV Push, ity of (PF)) 15:06: Q6HPRN, [place] injection 4 32 Starting Medi mele mg on Sat Branch 08/05/22 at 1006, Until Discontinu ed, Routine, Nausea and Vomiting (N/V) ondansetron 2021-10- No 4mg 4 mg, Slow Univers (ZOFRAN 10-05 IV Push, ity of (PF)) 15:06: 23:42 Q6HPRN, [place] injection 4 32 :25 Starting Medi mele mg on Sat Branch 08/05/22 at 1006, Until 08/06/22 at 1742, Routine, Nausea and Vomiting (N/V) ketorolac 2021-10- No Slow IV Univ ers (TORADOL) 10-05 Push, ONCE ity of injection 15:06: 15:20 INTRA [place] 00 :23 PROCEDURE, Medical Starting Branch on 08/05/22 at 1006, Until 08/05/22 at 1020, Routine, Intra-op sodium 2021-10 Yes PRN, Univers chloride 10-05 Starting ity of 0.9 % 14:34: on Sat [place] irrigation 00 08/05/22 at Med ical solution 0934, Branch Until Discontinu ed, Intra-op sodium 2021-10- No PRN, Univers chloride 10-05 Starting ity of 0.9 % 14:34: 23:42 on Sat [place] irrigation 00 :25 08/05/22 at Med ical solution 0934, Branch Until 08/06/22 at 1742, Intra-op PHENYLephri 2021-10- No Slow IV Un whit ne 1000 10-05 Push, ONCE ity o f mcg/10 mL 14:23: 15:20 INTRA [place] in 0.9% 00 :23 PROCEDURE, Medica l NaCl Starting Branch syringe on 08/05/22 at 0923, Until 08/05/22 at 1020, Routine, Intra-op ondansetron 2021-10- No Slow IV Un whit (ZOFRAN 10-05 Push, ONCE ity o f (PF)) 14:15: 15:20 INTRA [place] injection 00 :23 PROCEDURE, Medi mele Starting Branch on 08/05/22 at 0915, Until 08/05/22 at 1020, Routine, Intra-op dexamethaso 2021-10- No IV Push, U nivers ne 10-05 ONCE INTRA ity of (DECADRON 14:14: 15:20 PROCEDURE, [place] PHOSPHATE) 00 :23 Starting Medic al injection on Sat Branch 08/05/22 at 0914, Until 08/05/22 at 1020, Routine, Intra-op succinylcho 2021-10- No Intravenou Univers line 10-05 1105 s, ONCE ity of (QUELICIN) 14:09: 15:20 INTRA [place] injection 00 :23 PROCEDURE, Medi mele Starting Branch on 08/05/22 at 0909, Until 08/05/22 at 1020, Routine, Intra-op FENTanyl PF 2021-10- No Intravenou Univers (SUBLIMAZE 10-0505 s, ONCE ity o f (PF)) 14:08: 15:20 INTRA [place] injection 00 :23 PROCEDURE, Medi mele Starting Branch on 08/05/22 at 0908, Until 08/05/22 at 1020, Routine, Intra-op lidocaine 2021-10- No Intravenou U nivers 1% 10-05 11-05 s, ONCE ity of (XYLOCAINE) 14:08: 15:20 INTRA [place] 100 mg/10 00 :23 PROCEDURE, Medi mele mL (1 %) Starting Branch injection on [facility] 08/05/22 at 0908, Until 08/05/22 at 1020, Routine, Intra-op propofoL IV 2021-10- No Intravenou Univers infusion 10-05 s, ONCE ity of 14:08: 15:20 INTRA [place] 00 :23 PROCEDURE, Medical Starting Branch on [facility] 08/05/22 at 0908, Until 08/05/22 at 1020, Routine, Intra-op midazolam 2021-10- No IV Push, Uni vers (VERSED) 10-05 ONCE INTRA ity of injection 14:02: 15:20 PROCEDURE, [place] 00 :23 Starting Medical on [facility] Branch 08/05/22 at 0902, Until 08/05/22 at 1020, Routine, Intra-op lactated 2021-10- No IV Univers ringers IV 10-05 Infusion, ity of infusion 14:02: 15:20 CONTINUOUS [place] 00 :23 PRN, Medical Starting Branch on [facility] 08/05/22 at 0902, Until 08/05/22 at 1020, Routine, Intra-op docusate 2021-10 Yes 100mg 100 mg, Unive rs (COLACE) 10-05 Oral, ity of capsule 100 14:00: DAILY, [place] mg 00 First dose Medical on [facility] 08/05/22 at 0900, Until Discontinu ed, Routine docusate 2021-10- No 100mg 100 mg, Univ ers (COLACE) 10-05 Oral, ity of capsule 100 14:00: 23:42 DAILY, [place] as mg 00 :25 First dose Medical on [facility] 08/05/22 at 0900, Until Discontinu ed, Routine No known 2021-10 No No known Unive rs medications 10-05 medication it y of 10:04: s [place] [facility] sennosides- 2021-10 Yes 1{tbl} 1 tablet, Univers docusate 10-05 Oral, BID, ity o f sodium 01:00: First dose [place] (SENOKOT-S) 00 on Fri Medica l 8.6-50 mg 08/04/22 at [facility] per tablet 1999, 1 tablet Until Discontinu ed, Routine sennosides- 2021-10- No 1{tbl} 1 tablet, Univers docusate 10-05 Oral, BID, ity of sodium 01:00: 23:42 First dose [place] (SENOKOT-S) 00 :25 on Sun Medica l 8.6-50 mg 08/04/22 at [facility] per tablet 1999, 1 tablet Until Discontinu ed, Routine diphenhydrA 2021-10 Yes 25mg 25 mg, Univ ers MINE 10-05 Intravenou ity of (BENADRYL) 00:43: s, Q6HPRN, [place] injection 28 Starting Medica l 25 mg on Sun Branch 08/04/22 at 1943, Until Discontinu ed, Routine, Itching diphenhydrA 2021-10 No 25mg 25 mg, Uni vers MINE 10-05 Intravenou ity of (BENADRYL) 00:43: 23:42 s, Q6HPRN, [place] injection 28 :25 Starting Medica l 25 mg on Sun Branch 08/04/22 at 1943, Until 08/06/22 at 1742, Routine, Itching ceFEPIme 2021-10- No 1000mg 1,000 mg, U nivers (MAXIPIME) 10-04 IV ity of 1,000 mg in 00:15: 01:14 [place], [place] NaCl 0.9% 00 :00 Q8H ABX, Medica l (NS) 50 mL 42 doses, Bran ch MINI-BAG First dose on Sun08/03/22 at 1915, Last dose on Sun08/17/22 at 1115, Administer over 4 Hours, 50 mL
Reas on for Anti-Infec tive: Empiric Therapy for Suspected Infection< br>Empiric Therapy Site: Skin / Soft tissue
Duration of therapy: 5 days ceFEPIme 2021-10 No 1000mg 1,000 mg, U nivers (MAXIPIME) 10-04 IV ity of 1,000 mg in 00:15: 23:42 [facility], [place] NaCl 0.9% 00 :25 Q8H ABX, Medica l (NS) 50 mL 42 doses, Bran ch MINI-BAG First dose on [facility] 08/03/22 at 1915, Last dose on [facility] 08/17/22 at 1115, Administer over 4 Hours, 50 mL
Reas on for Anti-Infec tive: Empiric Therapy for Suspected Infection< br>Empiric Therapy Site: Skin / Soft tissue
Duration of therapy: 5 days vancomycin 2021-10 No 1250mg 1,250 mg, Univers 1,250 mg in 10-03 IV ity of NaCl 0.9% 23:00: 18:38 Piggyback, [place] (NS) 250 mL 00 :26 Q12H ABX, Med ical VIAL-MATE 28 doses, Branc h IV First dose piggyback on [facility] 08/03/22 at 1800, Last dose on [facility] 08/17/22 at 0600, Administer over 90 Minutes, 250 mL
Reas on for Anti-Infec tive: Empiric Therapy for Suspected Infection< br>Empiric Therapy Site: Joint
D uration of therapy: 5 days enoxaparin 2021-10 Yes 40mg 40 mg, Unive rs (LOVENOX) 10-03 Subcutaneo ity of injection 22:00: us, DAILY, [place] 40 mg 00 First dose Medical on [facility] 08/03/22 at 1700, Until Discontinu ed, Routine enoxaparin 2021-10- No 40mg 40 mg, Univ ers (LOVENOX) 10-03 Subcutaneo ity of injection 22:00: 23:42 us, DAILY, [place] 40 mg 00 :25 First dose Medical on [facility] 08/03/22 at 1700, Until Discontinu ed, Routine nicotine 2021-10- No 1{patch 1 Patch, U nivers (NICODERM) 10-03 } Topical, ity of 21 mg/24 hr 17:00: 16:07 Administer [place] patch 1 00 :45 over 24 Medical Patch Hours, Branch Q24H, First dose on [facility] 08/03/22 at 1200, Until Discontinu ed, Routine ceFEPIme 2021-10- No 1000mg 1,000 mg, U nivers (MAXIPIME) 10-03 IV ity of 1,000 mg in 16:30: 18:52 Piggyback, [place] NaCl 0.9% 00 :00 ONCE, 1 Medical (NS) 50 mL dose, On Branc h MINI-BAG [place] 08/03/22 at 1130, Administer over 30 Minutes, 50 mL
Reas on for Anti-Infec tive: Empiric Therapy for Suspected Infection< br>Empiric Therapy Site: Skin / Soft tissue
Duration of therapy: 5 days LORazepam 2021-10 Yes 1mg 1 mg, Univers (ATIVAN) 10-03 Oral, ity of tablet 1 mg 15:46: TIDPRN, [place] 20 Starting Medical on [place] Branch 08/03/22 at 1046, Until Discontinu ed, Routine, Anxiety, Agitation LORazepam 2021-10 No 1mg 1 mg, Univer s (ATIVAN) 10-03 Oral, ity of tablet 1 mg 15:46: 23:42 TIDPRN, [place] 20 :25 Starting Medical on [place] Branch 08/03/22 at 1046, Until 08/06/22 at 1742, Routine, Anxiety, Agitation HYDROcodone 2021-10 No 1{tbl} 1 tablet, Univers -acetaminop 10-03 Oral, ity of hen (NORCO 15:23: 15:22 Q6HPRN, [place] 5) 5-325 mg 34 :34 Starting Medi mele tablet 1 on [facility] Branch tablet 08/03/22 at 1023, Until 08/05/22 at 1022, Routine, Pain (scale 4-6) acetaminoph 2021-10 Yes 650mg 650 mg, Un whit en 10-03 Oral, ity of (TYLENOL) 15:23: Q6HPRN, [place] tablet 650 32 Starting Medic al mg on [place] Branch 08/03/22 at 1023, Until Discontinu ed, Routine, Pain (scale 1-3) acetaminoph 2021-10 No 650mg 650 mg, U nivers en 10-03 Oral, ity of (TYLENOL) 15:23: 23:42 Q6HPRN, [place] tablet 650 32 :25 Starting Medic al mg on [place] Branch 08/03/22 at 1023, Until 08/06/22 at 1742, Routine, Pain (scale 1-3) vancomycin 2021-10- No 15mg/kg 1,000 mg Univers (VANCOCIN) 10-03 (rounded ity of 1,000 mg in 11:45: 12:32 from 952.5 [place] NaCl 0.9% 00 :00 mg = 15 Medical (NS) 250 mL mg/kg Branch VIAL-MATE ?63.5 kg), IV IV piggyback [place], ONCE, 1 dose, On [facility] 08/03/22 at 0645, Administer over 60 Minutes, 250 mL
Reas on for Anti-Infec tive: Empiric Therapy for Suspected Infection< br>Empiric Therapy Site: Skin / Soft tissue
Duration of therapy: 72 hours morpHINE (4 2021-10- No 4mg 4 mg, Slow Univers mg/mL) 10-03 IV Push, ity of injection 4 10:30: 10:50 ONCE, 1 [place] mg 00 :00 dose, On [facility] 08/03/22 at 0530, Routine morpHINE (2021-10- No 4mg 4 mg, Slow Univers mg/mL) 0-13 07-13 IV Push, ity of injection 4 22:30: 22:40 ONCE, 1 [place] mg 00 :00 dose, On [facility] 07/13/22 at 1730, STAT iopamidol 2021-10- No [id number] 75mL 75 mL, Univers (ISOVUE 0-07-13 [id number] Intravenou ity of 370-500 mL) 21:12: 21:15 s, ONCE, 1 [place] injection 00 :00 dose, On Medica l 75 mL [facility] 07/13/22 at 1615, Routine ondansetron 2021-10- No 4mg 4 mg, Slow Univers (ZOFRAN 0- 10-13 IV Push, ity of (PF)) 19:45: 20:11 ONCE, 1 [place] injection 4 00 :00 dose, On Medi mele mg [facility] 07/13/22 at 1445, FELICITA morpHINE (4 2021-10- No 4mg 4 mg, Slow Univers mg/mL) 0-13 10-13 IV Push, ity of injection 4 19:45: 20:11 ONCE, 1 [place] mg 00 :00 dose, On Medical [facility] 07/13/22 at 1445, STAT levoFLOXaci 2021-10- No [id number] 500mg Take 1 Univers n 500 mg 07-24 tablet by ity o f tablet 00:00: 04:59 mouth [place] 00 :00 every 24 Medical (twenty-fo Branch ur) hours for 10 days. polyethylen 2021-10- No [id number] 17g Take 17 g Univers e glycol 07-21 by mouth ity of 3350 17 00:00: 04:59 in the [place] gram/dose 00 :00 morning Medical powder and 17 g Branch in the evening. Do all this for 7 days. cephALEXin 2021- No [id number] 500mg Take 1 Univers 500 mg 06-0816 [id number] capsule by ity of capsule 00:00: 04:59 mouth 4 [place] 00 :00 (four) Medical times Branch daily for 7 days. aspirin Yes 81mg 81 mg, Univers chewable 05-28 Oral, ity of tablet 81 14:00: DAILY, [place] mg 00 First dose Medical on [facility] 05/28/22 at 0900, Until Discontinu ed, Routine enoxaparin Yes 40mg 40 mg, Unive rs (LOVENOX) 05-28 Subcutaneo ity of injection 14:00: us, DAILY, [place] 40 mg 00 First dose Medical on [facility] 05/28/22 at 0900, Until Discontinu ed, Routine aspirin 2021- No 325mg 325 mg, Unive rs tablet 325 05-28 0827 Oral, ity of mg 14:00: 23:23 DAILY, [place] 00 :25 First dose Medical on [facility] 05/28/22 at 0900, Until Discontinu ed, Routine NaCl 0.9% Yes 1000mL at 100 Univ ers (NS) IV 8-28 mL/hr, IV ity of infusion 05:00: Infusion, [place] 1,000 mL 00 CONTINUOUS Medic al , Starting Branch on [place] 05/28/22 at 0000, Until Discontinu ed, Routine KCL 2021- No 20meq 20 mEq, Univers (KLOR-CON 05-28 Oral, ity of M20) tablet 03:30: 03:46 ONCE, 1 [place] 20 mEq 00 :00 dose, On Medical Sat Branch 05/27/22 at 2230, Routine cyclobenzap 2021- No 5mg 5 mg, Univ ers rine 05-28 Oral, ity of (FLEXERIL) 03:30: 03:46 ONCE, 1 [place] tablet 5 mg 00 :00 dose, On Medi mele Sat Branch 05/27/22 at 2230, Routine atorvastati 2021- No 40mg 40 mg, Uni vers n (LIPITOR) 05-28 Oral, ity of tablet 40 03:30: 03:46 ONCE, 1 [place] mg 00 :00 dose, On Medical Sat Branch 05/27/22 at 2230, Routine HYDROcodone Yes 1{tbl} 1 tablet, Univers -acetaminop 05-28 Oral, ity of hen (NORCO) 02:43: Q6HPRN, [place] 10-325 mg 45 Starting Medica l tablet 1 on [facility] Branch tablet 05/27/22 at 2143, Until Discontinu ed, Routine, Pain (scale 4-6) nicotine Yes 1{patch 1 Patch, Un whit (NICODERM) 05-28 } Topical, ity o f 21 mg/24 hr 01:15: Administer [place] patch 1 00 over 24 Medical Patch Hours, Branch Q24H, First dose on [facility] 05/27/22 at 2015, Until Discontinu ed, Routine morpHINE (2 No 2mg 2 mg, Slow Univers mg/mL) 05-27 IV Push, ity of injection 2 23:12: 23:11 Q4HPRN, [place] mg 46 :46 Starting Medical on [facility] Branch 05/27/22 at 1812, Until 05/28/22 at 1811, Routine, Pain (scale 7-10) acetaminoph 2021- No 1{tbl} 1 tablet, Univers en-codeine 05-27 Oral, ity of (TYLENOL 23:12: 23:11 Q6HPRN, [place] #3) 300-30 44 :44 Starting Medic al mg tablet 1 on Sat Branch tablet 05/27/22 at 1812, Until 05/29/22 at 1811, Routine, Pain (scale 4-6) acetaminoph Yes 650mg 650 mg, Un whit en 05-27 Oral, ity of (TYLENOL) 23:12: Q6HPRN, [place] tablet 650 41 Starting Medic al mg on Sat Branch 05/27/22 at 1812, Until Discontinu ed, Routine, Pain (scale 1-3) NaCl 0.9% 2021- No 1000mL at 999 Uni vers (NS) bolus 05-27 08-27 mL/hr, ity of infusion 19:15: 19:13 1,000 mL, [place] 1,000 mL 00 :00 IV Medical Infusion, Branch ONCE, 1 dose, On 05/27/22 at 1415, STAT No known No No known Unive rs medications 05-27 medication it y of 17:59: s [place] [address] Medical Branch neomycin-po 2020-10 Yes [id number] 3[drp] Place 3 Univers lymyxin-hyd 2-28 Drops in ity of rocortisone 00:00: right ear [place] 3.5-10,000- 00 4 (four) Medi mele 1 times Branch mg/mL-unit/ daily. mL-% otic susp ibuprofen 2020-10 Yes [id number] 600mg Take 1 Univers 600 mg 2-28 tablet by ity of tablet 00:00: mouth [place] 00 every 6 Medical (six) Branch hours as needed for Pain (scale 4-6). neomycin-po 2020-10 Yes [id number] 3[drp] Place 3 Univers lymyxin-hyd 2-28 Drops in ity of rocortisone 00:00: right ear [place] 3.5-10,000- 00 4 (four) Medi mele 1 times Branch mg/mL-unit/ daily. mL-% otic susp ibuprofen 2020-10 Yes [id number] 600mg Take 1 Univers 600 mg 2-28 tablet by ity of tablet 00:00: mouth [place] 00 every 6 Medical (six) Branch hours as needed for Pain (scale 4-6). neomycin-po 2020-10- No [id number] 3[drp] Place 3 Univers lymyxin-hyd 11-28 Drops in ity of rocortisone 00:00: 00:00 right ear [place] 3.5-10,000- 00 :00 4 (four) Medi mele 1 times Branch mg/mL-unit/ daily. mL-% otic susp ibuprofen 2020-10- No [id number] 600mg Take 1 Univers 600 mg 11-28 tablet by ity of tablet 00:00: 00:00 mouth [place] 00 :00 every 6 Medical (six) Branch hours as needed for Pain (scale 4-6). HYDROcodone Yes 1{tbl} Take 1 [place] [facility] -acetaminop 5-[address] [facility] leonel (Corthera) 10:06: mouth 10-325 mg 05 every 6 tablet hours as needed for Pain. HYDROcodone Yes 1{tbl} Take 1 [place] -acetaminop 5-[address] tablet [address] [facility] hen (Corthera) 10:06: mouth 10-325 mg 05 every 6 [...] Kahn (VENTOLIN 02 ed asthma, Puffs by Health HFA,PROVENT 00:00: unspecified mouth 4 [place] 00 asthma times HFA,PROAIR severity daily as HFA) 90 needed for mcg/actuati Wheezing. on inhaler baclofen Yes Chronic 10mg Take 1 [place] [...] [place]ahn (VENTOLIN 5-02 ed asthma, Puffs by Health HFA,PROVENT 00:00: unspecified mouth 4 [place] 00 asthma times HFA,PROAIR severity daily as HFA) 90 needed for mcg/actuati Wheezing. on inhaler baclofen Yes Chronic 10mg Take 1 [place] is (LIORESAL) 5-02 back pain, tablet by [facility] 10 mg 00:00: unspecified mouth 3 tablet 00 back times location, daily. unspecified back pain laterality gabapentin Yes Chronic 400mg Take 1 H arris (NEURONTIN) 5-02 back pain, capsule by [facility] 400 mg 00:00: unspecified mouth 3 capsule 00 back times location, daily. unspecified back pain laterality albuterol Yes Uncomplicat 2{puff} Inhale 2 [place] (VENTOLIN 5-02 ed asthma, Puffs by [facility] HFA,PROVENT 00:00: unspecified mouth 4 [place] 00 asthma times HFA,PROAIR severity daily as HFA) 90 needed for mcg/actuati Wheezing. on inhaler acetaminoph Yes S/P ORIF 1{tbl} Take 1 [place] en-codeine 3-29 (open tablet by [facility] (TYLENOL/CO 00:00: reduction mouth DEINE #3) 00 internal every 6 300-30 mg fixation) hours as per tablet fracture needed for Pain. acetaminoph Yes S/P ORIF 1{tbl} Take 1 [place] en-codeine 3-29 (open tablet by [facility] (TYLENOL/CO 00:00: reduction mouth DEINE #3) 00 internal every 6 300-30 mg fixation) hours as per tablet fracture needed for Pain. acetaminoph Yes S/P ORIF 1{tbl} Take 1 [place] en-codeine 3-29 (open tablet by [facility] (TYLENOL/CO 00:00: reduction mouth DEINE #3) 00 internal every 6 300-30 mg fixation) hours as per tablet fracture needed for Pain. naproxen Yes Pain in 500mg Q.5D Take 1 [place] ris (NAPROSYN) 3-27 left foot tablet by [facility] 500 mg 00:00: mouth 2 tablet 00 times daily (with meals). miconazole 2017-0 Yes Tinea Q.5D Apply to [facility] (MICOTIN) 2 3-27 cruris affected He alth % topical 00:00: area 2 cream 00 times daily. naproxen 2017-0 Yes Pain in 500mg Q.5D Take 1 [place] ris (NAPROSYN) 3-27 left foot tablet by Health 500 mg 00:00: mouth 2 tablet 00 times daily (with meals). naproxen 2017-0 Yes Pain in 500mg Q.5D Take 1 [place] ris (NAPROSYN) 3-27 left foot tablet by Health 500 mg 00:00: mouth 2 tablet 00 times daily (with meals). miconazole 2016-0 Yes Tinea Q.5D Apply to [facility] (MICOTIN) 2 3- cruris affected He alth % topical 00:00: area 2 cream 00 times daily. miconazole 2016-0 Yes Tinea Q.5D Apply to [facility] [...] patch 12-21 Route: l 02:00: TOP, Drug [place] 00 form: ERFILM, Bedtime, Start date: 12/20/16 21:00:00 CDT, Duration: 30 day, Stop date: 01/18/17 21:00:00 CDT remove 0 No 1 patch, Memoria patch 12-21 Route: l 02:00: TOP, Drug [place] 00 form: ERFILM, Bedtime, Start date: 12/20/16 21:00:00 CDT, Duration: 30 day, Stop date: 01/18/17 21:00:00 CDT remove 2016- No 1 patch, [facility] patch 12-21 Route: l 02:00: TOP, Drug [place] 00 form: ERFILM, Bedtime, Start date: 12/20/16 21:00:00 CDT, Duration: 30 day, Stop date: 01/18/17 21:00:00 CDT remove No 1 patch, [facility]oria patch 12-21 Route: l 02:00: TOP, Drug [place] 00 form: ERFILM, Bedtime, Start date: 12/20/16 21:00:00 CDT, Duration: 30 day, Stop date: 01/18/17 21:00:00 CDT remove 2016- No 1 patch, [facility] patch 12-21 Route: l 02:00: TOP, Drug [place] 00 form: ERFILM, Bedtime, Start date: 12/20/16 21:00:00 CDT, Duration: 30 day, Stop date: 01/18/17 21:00:00 CDT Acetaminoph Yes 1-2 nicho, M emoria en 325 MG / 3-22 PO, Q4H, l Hydrocodone 19:17: PRN as Herm vivian Bitartrate 00 needed for 10 MG Oral severe Tablet pain, # 60 [[place] tab, 0 10/325] Refill(s) Acetaminoph Yes 1-2 nicho, M emoria en 325 MG / 3-22 PO, Q4H, l Hydrocodone 19:17: PRN as Herm vivian Bitartrate 00 needed for 10 MG Oral severe Tablet pain, # 60 [[place] tab, 0 10/325] Refill(s) Acetaminoph Yes 1-2 nicho, M emoria en 325 MG / 3-22 PO, Q4H, l Hydrocodone 19:17: PRN as Herm vivian Bitartrate 00 needed for 10 MG Oral severe Tablet pain, # 60 [[place] tab, 0 10/325] Refill(s) Acetaminoph Yes 1-2 nicho, M emoria en 325 MG / 3-22 PO, Q4H, l Hydrocodone 19:17: PRN as Herm vivian Bitartrate 00 needed for 10 MG Oral severe Tablet pain, # 60 [[place] tab, 0 10/325] Refill(s) Acetaminoph 2017- Yes 1-2 nicho, M emoria en 325 MG / 3-22 PO, Q4H, l Hydrocodone 19:17: PRN as Herm vivian Bitartrate 00 needed for 10 MG Oral severe Tablet pain, # 60 [[place] tab, 0 10/325] Refill(s) Acetaminoph 2017 Yes 1-2 nicho, M emoria en 325 MG / 3-22 PO, Q4H, l Hydrocodone 19:17: PRN as Herm vivian Bitartrate 00 needed for 10 MG Oral severe Tablet pain, # 60 [[place] tab, 0 10/325] Refill(s) Acetaminoph Yes 1-2 nicho, M emoria en 325 MG / 3-22 PO, Q4H, l Hydrocodone 19:17: PRN as Herm vivian Bitartrate 00 needed for 10 MG Oral severe Tablet pain, # 60 [[place] tab, 0 10/325] Refill(s) ropivacaine No Notes: Raad kenna 3-22 Final l 18:25: concentrat [place] 00 ion: Ropivacain e 0.2% 400 ml ropivacaine No Notes: Raad kenna 3-22 Final l 18:25: concentrat [place] 00 ion: Ropivacain e 0.2% 400 ml ropivacaine No Notes: Raad kenna 3-22 Final l 18:25: concentrat [place] 00 ion: Ropivacain e 0.2% 400 ml ropivacaine No Notes: Raad kenna 3-22 Final l 18:25: concentrat [place] 00 ion: Ropivacain e 0.2% 400 ml ropivacaine No Notes: Rada kenna 3-22 Final l 18:25: concentrat [place] 00 ion: Ropivacain e 0.2% 400 ml ropivacaine No Notes: Raad kenna 3-22 Final l 18:25: concentrat [place] 00 ion: Ropivacain e 0.2% 400 ml [...] Memoria 3-22 (Same as: l 14:00: Habitrol) [place] Nicotine 2017-0 No Notes: Memoria 3-22 (Same as: l 14:00: Habitrol) [place] Tramadol 2016-0 No Notes: Not Mem oria 3-22 to exceed l 12:00: 400mg/day. [place] 00 (Same As: Ultram) gabapentin 0 No Notes: Memor ia 3-22 (Same as: l 12:00: Neurontin) [place] 00 Tramadol 0 No Notes: Not Mem oria 3-22 to exceed l 12:00: 400mg/day. [place] 00 (Same As: Ultram) gabapentin No Notes: Memor ia 3-22 (Same as: l 12:00: Neurontin) [place] 00 Tramadol 2016-0 No Notes: Not Mem oria 3-22 to exceed l 12:00: 400mg/day. [place] 00 (Same As: Ultram) gabapentin No Notes: Memor ia 3-22 (Same as: l 12:00: Neurontin) [place] 00 Tramadol 0 No Notes: Not Mem oria 3-22 to exceed l 12:00: 400mg/day. [place] 00 (Same As: Ultram) gabapentin 0 No Notes: Memor ia 3-22 (Same as: l 12:00: Neurontin) [place] 00 Tramadol 0 No Notes: Not Mem o[facility] 3-22 to exceed l 12:00: 400mg/day. [place] 00 (Same As: Ultram) gabapentin 0 No Notes: [facility] 3-22 (Same as: l 12:00: Neurontin) [place] 00 Tramadol 0 No Notes: Not Mem o[facility] 3-22 to exceed l 12:00: 400mg/day. [place] 00 (Same As: Ultram) gabapentin 0 No Notes: [facility] 3-22 (Same as: l 12:00: Neurontin) [place] 00 Tramadol 2016-0 No Notes: Not Mem o[facility] 3-22 to exceed l 12:00: 400mg/day. [place] 00 (Same As: Ultram) gabapentin 2017-0 No Notes: [facility] 3-22 (Same as: l 12:00: Neurontin) [place] 00 Lovenox 2017-0 No Notes: [facility] 3-22 (Same as: l 09:00: Lovenox) [place] Lovenox No Notes: Memoria 3-22 (Same as: l 09:00: Lovenox) [place] Lovenox No Notes: [facility]oria 3-22 (Same as: l 09:00: Lovenox) [place] 00 Lovenox No Notes: [facility] 3-22 (Same as: l 09:00: Lovenox) [place] Lovenox No Notes: [facility] 3-22 (Same as: l 09:00: Lovenox) [place] 00 Lovenox No Notes: [facility] 3-22 (Same as: l 09:00: Lovenox) [place] 00 Lovenox No Notes: [facility] 3-22 (Same as: l 09:00: Lovenox) [place] 00 Trazodone No Notes: Memori a 3-22 (Same As: l 06:45: Desyrel) [place] 00 Trazodone No Notes: Mem[facility] a 3-22 (Same As: l 06:45: Desyrel) [place] 00 Trazodone No Notes: [facility] a 3-22 (Same As: l 06:45: Desyrel) [place] 00 Trazodone No Notes: [facility] a 3-22 (Same As: l 06:45: Desyrel) [place] 00 Trazodone No Notes: [facility] a 3-22 (Same As: l 06:45: Desyrel) [place] 00 Trazodone No Notes: [facility] a 3-22 (Same As: l 06:45: Desyrel) [place] 00 Trazodone No Notes: Mem[facility] a 3-22 (Same As: l 06:45: Desyrel) [place] 00 Cefazolin No Notes: [facility] a 3-21 (Same As: l 23:00: Ancef, [place] 00 Kefzol) Cefazolin FOR IV SET ONLY MEDICATION WASTE Product Size: 1000 mg Product Wasted: _0__ mg Cefazolin No Notes: Mem[facility] a 3-21 (Same As: l 23:00: Ancef, [place] 00 Kefzol) Cefazolin FOR IV SET ONLY MEDICATION WASTE Product Size: 1000 mg Product Wasted: _0__ mg Cefazolin No Notes: [facility] a 3-21 (Same As: l 23:00: Ancef, [place] 00 Kefzol) Cefazolin FOR IV SET ONLY MEDICATION WASTE Product Size: 1000 mg Product Wasted: _0__ mg Cefazolin No Notes: [facility] a 3-21 (Same As: l 23:00: Ancef, [place] 00 Kefzol) Cefazolin FOR IV SET ONLY MEDICATION WASTE Product Size: 1000 mg Product Wasted: _0__ mg Cefazolin No Notes: [facility] a 3- (Same As: l 23:00: Ancef, [place] 00 Kefzol) Cefazolin FOR IV SET ONLY MEDICATION WASTE Product Size: 1000 mg Product Wasted: _0__ mg Cefazolin No Notes: [facility] a 3- (Same As: l 23:00: Ancef, [place] 00 Kefzol) Cefazolin FOR IV SET ONLY MEDICATION WASTE Product Size: 1000 mg Product Wasted: _0__ mg Cefazolin No Notes: [facility] a 3-21 (Same As: l 23:00: Ancef, [place] 00 Kefzol) Cefazolin FOR IV SET ONLY MEDICATION WASTE Product Size: 1000 mg Product Wasted: _0__ mg Docusate No Notes: [facility] Sodium 100 3-21 (Same as: l MG Oral 22:00: Colace) [place] Capsule 00 Docusate No Notes: [facility] Sodium 100 3-21 (Same as: l MG Oral 22:00: Colace) [place] Capsule 00 Docusate No Notes: [facility] Sodium 100 3-21 (Same as: l MG Oral 22:00: Colace) [place] Capsule 00 Docusate No Notes: [facility] Sodium 100 3-21 (Same as: l MG Oral 22:00: Colace) [place] Capsule Docusate No Notes: [facility] Sodium 100 3-21 (Same as: l MG Oral 22:00: Colace) [place] Capsule Docusate No Notes: [facility] Sodium 100 3-21 (Same as: l MG Oral 22:00: Colace) [place] Capsule Docusate No Notes: [facility] Sodium 100 3-21 (Same as: l MG Oral 22:00: Colace) [place] Capsule INV No IVP, 0 [facility] Sugammadex/ 3-21 [...] date: 12/19/16 14:22:00 CDT, 1.73 ml ropivacaine 2017-0 No Notes: Raad kenna 3-21 Same as: l 18:55: Naropin [place] 00 ropivacaine 2017-0 No Notes: Raad kenna 3-21 Same as: l 18:55: Naropin [place] 00 ropivacaine 2017-0 No Notes: Raad kenna 3-21 Same as: l 18:55: Naropin [place] 00 ropivacaine 2017-0 No Notes: Raad kenna 3-21 Same as: l 18:55: Naropin [place] 00 ropivacaine 2017-0 No Notes: Raad kenna 3-21 Same as: l 18:55: Naropin [place] 00 ropivacaine 2017-0 No Notes: Raad kenna 3-21 Same as: l 18:55: Naropin [place] 00 ropivacaine 2017-0 No Notes: Raad kenna 3-21 Same as: l 18:55: Naropin [place] 00 ropivacaine 2017-0 No Route: Raad kenna 3-21 NERVE l 18:41: BLOCK, [place] 00 Continuous Rate: 6, ml/hr, Dosing Site: Sciatic popliteal Side: Left, 1 Hour limit: 6 mL, 200, mL, Start date: 12/19/16 13:41:00 CDT, Duration: 30, day, Total volume: 200, mL, Weight 86.364, kg, Stop date: 01/18/17 13:40:00 CDT ropivacaine 2017-0 No Route: Raad kenna 3-21 NERVE l 18:41: BLOCK, [place] 00 Continuous Rate: 6, ml/hr, Dosing Site: Sciatic popliteal Side: Left, 1 Hour limit: 6 mL, 200, mL, Start date: 12/19/16 13:41:00 CDT, Duration: 30, day, Total volume: 200, mL, Weight 86.364, kg, Stop date: 01/18/17 13:40:00 CDT ropivacaine 2017-0 No Route: Raad kenna 3-21 NERVE l 18:41: BLOCK, [place] 00 Continuous Rate: 6, ml/hr, Dosing Site: Sciatic popliteal Side: Left, 1 Hour limit: 6 mL, 200, mL, Start date: 12/19/16 13:41:00 CDT, Duration: 30, day, Total volume: 200, mL, Weight 86.364, kg, Stop date: 01/18/17 13:40:00 CDT ropivacaine 2017-0 No Route: Raad kenna 3-21 NERVE l 18:41: BLOCK, [place] 00 Continuous Rate: 6, ml/hr, Dosing Site: Sciatic popliteal Side: Left, 1 Hour limit: 6 mL, 200, mL, Start date: 12/19/16 13:41:00 CDT, Duration: 30, day, Total volume: 200, mL, Weight 86.364, kg, Stop date: 01/18/17 13:40:00 CDT ropivacaine 2017-0 No Route: Raad kenna 3-21 NERVE l 18:41: BLOCK, [place] 00 Continuous Rate: 6, ml/hr, Dosing Site: Sciatic popliteal Side: Left, 1 Hour limit: 6 mL, 200, mL, Start date: 12/19/16 13:41:00 CDT, Duration: 30, day, Total volume: 200, mL, Weight 86.364, kg, Stop date: 01/18/17 13:40:00 CDT ropivacaine 2017-0 No Route: Raad kenna 3-21 NERVE l 18:41: BLOCK, [place] 00 Continuous Rate: 6, ml/hr, Dosing Site: Sciatic popliteal Side: Left, 1 Hour limit: 6 mL, 200, mL, Start date: 12/19/16 13:41:00 CDT, Duration: 30, day, Total volume: 200, mL, Weight 86.364, kg, Stop date: 01/18/17 13:40:00 CDT ropivacaine 2017-0 No Route: Raad kenna 3-21 NERVE l 18:41: BLOCK, [place] 00 Continuous Rate: 6, ml/hr, Dosing Site: Sciatic popliteal Side: Left, 1 Hour limit: 6 mL, 200, mL, Start date: 12/19/16 13:41:00 CDT, Duration: 30, day, Total volume: 200, mL, Weight 86.364, kg, Stop date: 01/18/17 13:40:00 CDT Enoxaparin 2017-0 No Notes: Memor ia 3-21 (Same as: l 18:00: Lovenox) [place] 00 Enoxaparin No Notes: Memor ia 3-21 (Same as: l 18:00: Lovenox) [place] 00 Enoxaparin No Notes: Memor ia 3-21 (Same as: l 18:00: Lovenox) [place] 00 Enoxaparin No Notes: Mem[facility] ia 3-21 (Same as: l 18:00: Lovenox) Enoxaparin No Notes: Memor ia 3-21 (Same as: l 18:00: Lovenox) [place] 00 Enoxaparin No Notes: [facility] ia 3-21 [...] / 3-21 (Same as: l Hydrocodone 17:52: [place] Bitartrate 00 325/10) 10 MG Oral Tablet Acetaminoph No Notes: Raad kenna en 325 MG / 3-21 (Same as: l Hydrocodone 17:52: [place] Bitartrate 00 325/5) 5 MG Oral Tablet Ondansetron No Notes: Raad kenna 3-21 (Same as: l 17:52: Zofran) [place] 00 MEDICATION WASTE Product Size: 4 mg Product Wasted: _0__ mg Morphine No Notes: [facility] 3-21 (Same l 17:52: as:MORPhin [place] 00 e Sulfate) Acetaminoph No Notes: Raad kenna en 325 MG / 3-21 (Same as: l Hydrocodone 17:52: [place] Bitartrate 00 325/10) 10 MG Oral Tablet Acetaminoph No Notes: Raad kenna en 325 MG / 3-21 (Same as: l Hydrocodone 17:52: [place] Bitartrate 00 325/5) 5 MG Oral Tablet Ondansetron No Notes: Raad kenna 3-21 (Same as: l 17:52: Zofran) [place] 00 MEDICATION WASTE Product Size: 4 mg Product Wasted: _0__ mg Morphine No Notes: [facility] 3-21 (Same l 17:52: as:MORPhin [place] 00 e Sulfate) Acetaminoph No Notes: Raad kenna en 325 MG / 3-21 (Same as: l Hydrocodone 17:52: [place] Bitartrate 00 325/10) 10 MG Oral Tablet Acetaminoph No Notes: Raad kenna en 325 MG / 3-21 (Same as: l Hydrocodone 17:52: [place] Bitartrate 00 325/5) 5 MG Oral Tablet Ondansetron No Notes: Raad kenna 3-21 (Same as: l 17:52: Zofran) [place] 00 MEDICATION WASTE Product Size: 4 mg Product Wasted: _0__ mg Morphine No Notes: [facility] 3-21 (Same l 17:52: as:MORPhin [place] 00 e Sulfate) Acetaminoph No Notes: Raad kenna en 325 MG / 3-21 (Same as: l Hydrocodone 17:52: [place] Bitartrate 00 325/10) 10 MG Oral Tablet Acetaminoph No Notes: Raad kenna en 325 MG / 3-21 (Same as: l Hydrocodone 17:52: [place] Bitartrate 00 325/5) 5 MG Oral Tablet Ondansetron No Notes: Raad kenna 3-21 (Same as: l 17:52: Zofran) [place] 00 MEDICATION WASTE Product Size: 4 mg Product Wasted: _0__ mg Morphine No Notes: [facility] 3-21 (Same l 17:52: as:MORPhin [place] 00 e Sulfate) Acetaminoph No Notes: Raad kenna en 325 MG / 3-21 (Same as: l Hydrocodone 17:52: [place] Bitartrate 00 325/10) 10 MG Oral Tablet Acetaminoph No Notes: Raad kenna en 325 MG / 3-21 (Same as: l Hydrocodone 17:52: [place] Bitartrate 00 325/5) 5 MG Oral Tablet Ondansetron No Notes: Raad kenna 3-21 (Same as: l 17:52: Zofran) [place] 00 MEDICATION WASTE Product Size: 4 mg Product Wasted: _0__ mg Morphine No Notes: [facility] 3-21 (Same l 17:52: as:MORPhin [place] 00 e Sulfate) Acetaminoph No Notes: Raad kenna en 325 MG / 3-21 (Same as: l Hydrocodone 17:52: [place] nn Bitartrate 00 325/10) 10 MG Oral Tablet Acetaminoph No Notes: Raad kenna en 325 MG / 3-21 (Same as: l Hydrocodone 17:52: [place] Bitartrate 00 325/5) 5 MG Oral Tablet Ondansetron No Notes: Raad kenna 3-21 (Same as: l 17:52: Zofran) [place] 00 MEDICATION WASTE Product Size: 4 mg Product Wasted: _0__ mg Morphine No Notes: [facility] 3-21 (Same l 17:52: as:MORPhin [place] 00 e Sulfate) Acetaminoph No Notes: Raad kenna en 325 MG / 3-21 (Same as: l Hydrocodone 17:52: [place] nn Bitartrate 00 325/10) 10 MG Oral Tablet Acetaminoph No Notes: Raad kenna en 325 MG / 3-21 (Same as: l Hydrocodone 17:52: [place] Naye nn Bitartrate 00 325/5) 5 MG Oral Tablet INV No IVP, 0 [facility] Sugammadex/ 3-21 ml/hr, l Placebo inj 17:00: ONCE, Naye nn syringe 00 Start date: 12/19/16 12:00:00 CDT, 1.73 ml INV 2017-0 No IVP, 0 [facility] Sugammadex/ 3-21 ml/hr, l Placebo inj 17:00: ONCE, [place] nn syringe 00 Start date: 12/19/16 12:00:00 CDT, 1.73 ml INV 2017-0 No IVP, 0 [facility] Sugammadex/ 3-21 ml/hr, l Placebo inj 17:00: ONCE, Naye nn syringe Start date: 12/19/16 12:00:00 CDT, 1.73 ml INV 2017-0 No IVP, 0 [facility] Sugammadex/ 3-21 ml/hr, l Placebo inj 17:00: ONCE, [place] nn syringe Start date: 12/19/16 12:00:00 CDT, 1.73 ml INV 2017-0 No IVP, 0 [facility] Sugammadex/ 3-21 ml/hr, l Placebo inj 17:00: ONCE, [place] nn syringe Start date: 12/19/16 12:00:00 CDT, 1.73 ml INV 2016-0 No IVP, 0 [facility] Sugammadex/ 3-21 ml/hr, l Placebo inj 17:00: ONCE, [place] nn syringe Start date: 12/19/16 12:00:00 CDT, 1.73 ml INV 2017-0 No IVP, 0 [facility] Sugammadex/ 3-21 ml/hr, l Placebo inj 17:00: ONCE, Naye nn syringe Start date: 12/19/16 12:00:00 CDT, 1.73 ml Naloxone No 0.4 mg, Memori a 321 Route: l 14:36: IVP, [place] 00 Q2MIN, [...] Ondansetron 2017-0 No 4 mg, Memor ia 3-21 Route: l 14:36: IVP, ONCE, [place] 00 Dosing Weight 86.364, kg, PRN Nausea & Vomiting, Start date: 12/19/16 9:36:00 CDT Hydralazine 2017-0 No 10 mg, Raad kenna 3-21 Route: l 14:36: IVP, [place] 00 Q20Min, Dosing Weight 86.364, kg, PRN Elevated BP, Start date: 12/19/16 9:36:00 CDT, Duration: 2 doses or times, Stop date: Limited # of times Naloxone 2017-0 No 0.4 mg, Memori a 3- Route: l 14:36: IVP, [place] 00 Q2MIN, Dosing Weight 86.364, kg, PRN Narcotic Reversal, Start date: 12/19/16 9:36:00 CDT, Duration: 8 doses or times, Stop date: Limited # of times Hydromorpho 2017-0 No 0.5 mg, Mem oria ne 3- Route: l 14:36: IVP, [place] 00 Q5Min, [...] Ondansetron 2017-0 No 4 mg, Mem[facility] ia 3-21 Route: l 14:36: IVP, ONCE, [place] 00 Dosing Weight 86.364, kg, PRN Nausea & Vomiting, Start date: 12/19/16 9:36:00 CDT Hydralazine 2017-0 No 10 mg, Raad kenna 12-19 Route: l 14:36: IVP, [place] 00 Q20Min, Dosing Weight 86.364, kg, PRN [...] oria ne 12-19 Route: l 14:36: IVP, [place] 00 Q5Min, Dosing Weight 86.364, kg, PRN [...] Raad kenna 12-19 Route: l 14:36: IVP, [place] 00 Q20Min, Dosing Weight 86.364, kg, PRN Elevated BP, Start date: 12/19/16 9:36:00 CDT, Duration: 2 doses or times, Stop date: Limited # of times Naloxone 2017-0 No 0.4 mg, Memori a 3-21 Route: l 14:36: IVP, [place] 00 Q2MIN, Dosing Weight 86.364, kg, PRN Narcotic Reversal, Start date: 12/19/16 9:36:00 CDT, Duration: 8 doses or times, Stop date: Limited # of times Hydromorpho 2017-0 No 0.5 mg, Mem oria ne 3-21 Route: l 14:36: IVP, [place] 00 Q5Min, Dosing Weight 86.364, kg, PRN Pain Score 7-10, Start date: 12/19/16 9:36:00 CDT, Duration: 4 doses or times, Stop date: Limited # of times Flumazenil 2017-0 No 0.2 mg, Raad kenna 3- Route: l 14:36: IVP, PRN, [place] 00 Dosing Weight 86.364, kg, PRN Benzodiaze pine Reversal, Initial dose, Start date: 12/19/16 9:36:00 CDT, Duration: 30 day, Stop date: 01/18/17 9:35:00 CDT Ondansetron 2017-0 No 4 mg, Mem[facility] ia 3- Route: l 14:36: IVP, ONCE, [place] 00 Dosing Weight 86.364, kg, PRN Nausea & Vomiting, Start date: 12/19/16 9:36:00 CDT Hydralazine 2017-0 No 10 mg, Raad kenna 3-21 Route: l 14:36: IVP, [place] 00 Q20Min, Dosing Weight 86.364, kg, PRN Elevated BP, Start date: 12/19/16 9:36:00 CDT, Duration: 2 doses or times, Stop date: Limited # of times Naloxone 2017-0 No 0.4 mg, Memori a 3-21 Route: l 14:36: IVP, [place] 00 Q2MIN, Dosing Weight 86.364, kg, PRN Narcotic Reversal, Start date: 12/19/16 9:36:00 CDT, Duration: 8 doses or times, Stop date: Limited # of times Hydromorpho 2017-0 No 0.5 mg, Mem oria ne 3-21 Route: l 14:36: IVP, [place] 00 Q5Min, Dosing Weight 86.364, kg, PRN Pain Score 7-10, Start date: 12/19/16 9:36:00 CDT, Duration: 4 doses or times, Stop date: Limited # of times Flumazenil 2017-0 No 0.2 mg, Raad kenna - Route: l 14:36: IVP, PRN, [place] 00 Dosing Weight 86.364, kg, PRN Benzodiaze pine Re[place], Initial dose, Start date: 12/19/16 9:36:00 CDT, Duration: 30 day, Stop date: 01/18/17 9:35:00 CDT Ondansetron 2017-0 No 4 mg, Mem[facility] ia 12-19 Route: l 14:36: IVP, ONCE, [place] Dosing Weight 86.364, kg, PRN Nausea & Vomiting, Start date: 12/19/16 9:36:00 CDT Hydralazine 2017-0 No 10 mg, Raad kenna 12-19 Route: l 14:36: IVP, [place] 00 Q20Min, Dosing Weight 86.364, kg, PRN Elevated BP, Start date: 12/19/16 9:36:00 CDT, Duration: 2 doses or times, Stop date: Limited # of times Naloxone 2017-0 No 0.4 mg, Memori a 12-19 Route: l 14:36: IVP, [place] 00 Q2MIN, Dosing Weight 86.364, kg, PRN Narcotic Reversal, Start date: 12/19/16 9:36:00 CDT, Duration: 8 doses or times, Stop date: Limited # of times Hydromorpho 2017-0 No 0.5 mg, Mem oria ne 12-19 Route: l 14:36: IVP, [place] 00 Q5Min, Dosing Weight 86.364, kg, PRN Pain Score 7-10, Start date: 12/19/16 9:36:00 CDT, Duration: 4 doses or times, Stop date: Limited # of times Flumazenil 2017-0 No 0.2 mg, Raad kenna 3- Route: l 14:36: IVP, PRN, [place] 00 Dosing Weight 86.364, kg, PRN Benzodiaze pine Reversal, Initial dose, Start date: 12/19/16 9:36:00 CDT, Duration: 30 day, Stop date: 01/18/17 9:35:00 CDT Ondansetron 2017-0 No 4 mg, Mem[facility] ia 3-21 Route: l 14:36: IVP, ONCE, [place] 00 Dosing Weight 86.364, kg, PRN Nausea & Vomiting, Start date: 12/19/16 9:36:00 CDT Hydralazine 2017-0 No 10 mg, Raad kenna 3-21 Route: l 14:36: IVP, [place] 00 Q20Min, Dosing Weight 86.364, kg, PRN Elevated BP, Start date: 12/19/16 9:36:00 CDT, Duration: 2 doses or times, Stop date: Limited # of times Naloxone 2017-0 No 0.4 mg, Memori a 3- Route: l 14:36: IVP, [place] 00 Q2MIN, Dosing Weight 86.364, kg, PRN Narcotic Reversal, Start date: 12/19/16 9:36:00 CDT, Duration: 8 doses or times, Stop date: Limited # of times Hydromorpho 2017-0 No 0.5 mg, Mem oria ne 3 Route: l 14:36: IVP, [place] 00 Q5Min, Dosing Weight 86.364, kg, PRN Pain Score 7-10, Start date: 12/19/16 9:36:00 CDT, Duration: 4 doses or times, Stop date: Limited # of times Flumazenil 2017-0 No 0.2 mg, Raad kenna 3-21 Route: l 14:36: IVP, PRN, Dosing Weight 86.364, kg, PRN Benzodiaze pine Reversal, Initial dose, Start date: 12/19/16 9:36:00 CDT, Duration: 30 day, Stop date: 01/18/17 9:35:00 CDT Ondansetron 2017-0 No 4 mg, Mem[facility] ia 3-21 Route: l 14:36: IVP, ONCE, [place] 00 Dosing Weight 86.364, kg, PRN Nausea & Vomiting, Start date: 12/19/16 9:36:00 CDT Hydralazine 2017-0 No 10 mg, Raad kenna 3-21 Route: l 14:36: IVP, [place] 00 Q20Min, Dosing Weight 86.364, kg, PRN Elevated BP, Start date: 12/19/16 9:36:00 CDT, Duration: 2 doses or times, Stop date: Limited # of times ceFAZolin No Notes: Memori a 3-21 Same as: l 06:00: Ancef [place] ceFAZolin 2016-0 No Notes: [facility] a 3-21 Same as: l 06:00: Ancef [place] ceFAZolin 2016-0 No Notes: [facility] a 3-21 Same as: l 06:00: Ancef [place] ceFAZolin 2016-0 No Notes: [facility] a 3-21 Same as: l 06:00: Ancef [place] ceFAZolin 2016-0 No Notes: [facility] a 3-21 Same as: l 06:00: Ancef [place] ceFAZolin 2016-0 No Notes: [facility] a 3-21 Same as: l 06:00: Ancef [place] ceFAZolin 2016-0 No Notes: [facility] a 3-21 Same as: l 06:00: Ancef [place] 00 [...] 10 MG Oral hen. (Same Tablet as: Fitzwilliam [Fitzwilliam 325/10) ] Acetaminoph No Notes: Do M emoria en 325 MG / 2-19 not exceed l Hydrocodone 02:44: 4gm/day of [place] Bitartrate 00 acetaminop 10 MG Oral hen. (Same Tablet as: [place] [Fitz[place]illiam 325/10) ] Acetaminoph No Notes: Do M emoria en 325 MG / 2-19 not exceed l Hydrocodone 02:44: 4gm/day of [place] Bitartrate 00 acetaminop 10 MG Oral hen. (Same Tablet as: [place] [Fitzwilliam 325/10) ] Acetaminoph No Notes: Do M emoria en 325 MG / 2-19 not exceed l Hydrocodone 02:44: 4gm/day of [place] Bitartrate 00 acetaminop 10 MG Oral hen. (Same Tablet as: [place] [Fitzwilliam 325/10) 10/325] Acetaminoph No Notes: Do M emoria en 325 MG / 2-19 not exceed l Hydrocodone 02:44: 4gm/day of [place] Bitartrate 00 acetaminop 10 MG Oral hen. (Same Tablet as: [place] [Fitz[place]illiam 325/10) 10/325] Acetaminoph No Notes: Do M emoria en 325 MG / 2-19 not exceed l Hydrocodone 02:44: 4gm/day of [place] Bitartrate 00 acetaminop 10 MG Oral hen. (Same Tablet as: [place] [F[place]illiam 325/10) 10/325] Acetaminoph No Notes: Do M emoria en 325 MG / 2-19 not exceed l Hydrocodone 02:44: 4gm/day of [place] Bitartrate 00 acetaminop 10 MG Oral hen. (Same Tablet as: [place] [Fitzwilliam 325/10) 10/325] Ibuprofen No Notes: Memori a 2-19 (Same as: l 00:58: Motrin) [place] 00 "Do Not Crush" Take with food. Tylenol No Notes: Do Memor ia 2-19 not exceed l 00:58: 4 gm/day. [place] 00 (Same as: Tylenol) Ibuprofen No Notes: Memori a 2-19 (Same as: l 00:58: Motrin) [place] 00 "Do Not Crush" Take with food. Tylenol No Notes: Do Memor ia 2-19 not exceed l 00:58: 4 gm/day. [place] 00 (Same as: Tylenol) Ibuprofen No Notes: Memori a 2-19 (Same as: l 00:58: Motrin) [place] 00 "Do Not Crush" Take with food. Tylenol No Notes: Do Memor ia 2-19 not exceed l 00:58: 4 gm/day. [place] 00 (Same as: Tylenol) Ibuprofen No Notes: Memori a 2-19 (Same as: l 00:58: Motrin) [place] 00 "Do Not Crush" Take with food. Tylenol No Notes: Do Memor ia 2-19 not exceed l 00:58: 4 gm/day. (Same as: Tylenol) Ibuprofen 0 No Notes: Memori a 2-19 (Same as: [...] 00:00: mood mouth 00 disorder daily. traMADol 2016-0 Yes Hx of 50mg Take 1 Kahn (ULTRAM) 50 2-19 fracture of tablet by Health mg tablet 00:00: leg mouth 00 every 6 hours as needed for Pain. 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 traMADol 2016-0 Yes Hx of 50mg Take 1 Kahn [...] with Codeine #3] Morphine No Notes: [facility] 11-12 (Same l 15:04: as:MORPhin [place] 00 e Sulfate) Morphine No Notes: [facility] 2-12 (Same l 15:04: as:MORPhin [place] 00 e Sulfate) Morphine No Notes: Memoria [...] Notes: [facility] 2-12 (Same l 15:04: as:MORPhin [place] 00 e Sulfate) Acetaminoph No 1 tab, Raad kenna en 325 MG / 2-12 Route: PO, l Hydrocodone 14:23: Drug Form: [place] Bitartrate 00 TAB, 5 MG Oral Dosing Tablet Weight 86.364, kg, ONCE, STAT, Start date: 11/12/16 8:23:00 DEPUTY GENERAL COUNSEL, Stop date: 11/12/16 8:23:00 DEPUTY GENERAL COUNSEL Acetaminoph No 1 tab, Raad kenna en 325 MG / 2-12 Route: PO, l Hydrocodone 14:23: Drug Form: [place] Bitartrate 00 TAB, 5 MG Oral Dosing Tablet Weight 86.364, kg, ONCE, STAT, Start date: 11/12/16 8:23:00 DEPUTY GENERAL COUNSEL, Stop date: 11/12/16 8:23:00 DEPUTY GENERAL COUNSEL Acetaminoph 0 No 1 tab, Raad kenna en 325 MG / 2-12 Route: PO, l Hydrocodone 14:23: Drug Form: [place] Bitartrate 00 TAB, 5 MG Oral Dosing Tablet Weight 86.364, kg, ONCE, STAT, Start date: 11/12/16 8:23:00 DEPUTY GENERAL COUNSEL, Stop date: 11/12/16 8:23:00 DEPUTY GENERAL COUNSEL Acetaminoph 2016-0 No 1 tab, Raad kenna en 325 MG / 2-12 Route: PO, l Hydrocodone 14:23: Drug Form: [place] Bitartrate 00 TAB, 5 MG Oral Dosing Tablet Weight 86.364, kg, ONCE, STAT, Start date: 11/12/16 8:23:00 DEPUTY GENERAL COUNSEL, Stop date: 11/12/16 8:23:00 DEPUTY GENERAL COUNSEL Acetaminoph 2017-0 No 1 tab, Raad kenna en 325 MG / 2-12 Route: PO, l Hydrocodone 14:23: Drug Form: [place] Bitartrate 00 TAB, 5 MG Oral Dosing Tablet Weight 86.364, kg, ONCE, STAT, Start date: 11/12/16 8:23:00 DEPUTY GENERAL COUNSEL, Stop date: 11/12/16 8:23:00 DEPUTY GENERAL COUNSEL Acetaminoph 2017-0 No 1 tab, Raad kenna en 325 MG / 2-12 Route: PO, l Hydrocodone 14:23: Drug Form: [place] Bitartrate 00 TAB, 5 MG Oral Dosing Tablet Weight 86.364, kg, ONCE, STAT, Start date: 11/12/16 8:23:00 DEPUTY GENERAL COUNSEL, Stop date: 11/12/16 8:23:00 DEPUTY GENERAL COUNSEL Acetaminoph 2017-0 No 1 tab, Raad kenna en 325 MG / 2-12 Route: PO, l Hydrocodone 14:23: Drug Form: [place] Bitartrate 00 TAB, 5 MG Oral Dosing Tablet Weight 86.364, kg, ONCE, STAT, Start date: 11/12/16 8:23:00 DEPUTY GENERAL COUNSEL, Stop date: 11/12/16 8:23:00 DEPUTY GENERAL COUNSEL enoxaparin 2017-0 Yes 30 mg = Raad kenna 30 mg/0.3 2-11 0.3 mL, l mL 16:52: SUB-Q, [place] subcutaneou 00 [id number], s solution X 21 day, # 13 mL, 0 Refill(s), Pharmacy: [facility] [id number] enoxaparin 2016-0 Yes 30 mg = Raad kenna 30 mg/0.3 2-11 0.3 mL, l mL 16:52: SUB-Q, [place] subcutaneou 00 [id number], s solution X 21 day, # 13 mL, 0 Refill(s), Pharmacy: [facility] [id number] enoxaparin 2016-0 Yes 30 mg = Raad kenna 30 mg/0.3 2-11 0.3 mL, l mL 16:52: SUB-Q, [place] subcutaneou 00 [id number], s solution X 21 day, # 13 mL, 0 Refill(s), Pharmacy: [place] [address] enoxaparin Yes 30 mg = Raad kenna 30 mg/0.3 2-11 0.3 mL, l mL 16:52: SUB-Q, [place] subcutaneou 00 [id number], s solution X 21 day, # 13 mL, 0 Refill(s), Pharmacy: [place] [address] enoxaparin Yes 30 mg = Raad kenna 30 mg/0.3 2-11 0.3 mL, l mL 16:52: SUB-Q, [place] subcutaneou 00 [id number], s solution X 21 day, # 13 mL, 0 Refill(s), Pharmacy: [place] [address] enoxaparin Yes 30 mg = Raad kenna 30 mg/0.3 2-11 0.3 mL, l mL 16:52: SUB-Q, [place] subcutaneou 00 [id number], s solution X 21 day, # 13 mL, 0 Refill(s), Pharmacy: [place] [address] enoxaparin Yes 30 mg = Raad kenna 30 mg/0.3 2-11 0.3 mL, l mL 16:52: SUB-Q, [place] subcutaneou 00 [id number], s solution X 21 day, # 13 mL, 0 Refill(s), Pharmacy: [place] [address] tramadol Yes 100 mg = 2 Mem [...] 6-10, 0 10 MG Oral Refill(s) Tablet [Fitzwilliam 10/325] FLUoxetine Yes 60 mg = 3 Me moria 20 mg oral 2-11 cap, PO, l capsule 16:46: Daily, # Kamari n 00 90 cap, 0 Refill(s), Pharmacy: [place] [address] senna 8.6 Yes 17.2 mg = Mem oria mg oral 2-11 2 tab, PO, l tablet 16:46: Bedtime, 0 Naye nn 00 Refill(s) gabapentin Yes 300 mg = 1 M emoria 300 MG Oral 2-11 cap, PO, l Capsule 16:46: Q8H-05, # Naye nn 00 90 cap, 0 Refill(s), Pharmacy: [place] [address] methocarbam Yes 1,000 mg = Memoria ol 500 mg 2-11 2 tab, PO, l oral tablet 16:46: Q8H-05, Her baker 00 PRN Spasm, X 14 day, # 84 tab, 0 Refill(s), Pharmacy: [place] [address] tramadol Yes 100 mg = 2 Mem [...] 6-10, 0 10 MG Oral Refill(s) Tablet [Fitzwilliam 10/325] FLUoxetine Yes 60 mg = 3 Me moria 20 mg oral 2-11 cap, PO, l capsule 16:46: Daily, # Kamari n 00 90 cap, 0 Refill(s), Pharmacy: [place] [address] senna 8 Yes 17.2 mg = Mem oria mg oral 2-11 2 tab, PO, l tablet 16:46: Bedtime, 0 Naye nn 00 Refill(s) gabapentin Yes 300 mg = 1 M emoria 300 MG Oral 2-11 cap, PO, l Capsule 16:46: Q8H-05, # Naye nn 00 90 cap, 0 Refill(s), Pharmacy: [facility] [place] [address] methocarbam Yes 1,000 mg = Memoria ol 500 mg 2-11 2 tab, PO, l oral tablet 16:46: Q8H-05, Her baker 00 PRN Spasm, X 14 day, # 84 tab, 0 Refill(s), Pharmacy: [facility] [place] [address] tramadol Yes 100 mg = 2 Mem [...] 6-10, 0 10 MG Oral Refill(s) Tablet [Fitzwilliam 10/325] FLUoxetine Yes 60 mg = 3 Me moria 20 mg oral 2-11 cap, PO, l capsule 16:46: Daily, # Kamari n 00 90 cap, 0 Refill(s), Pharmacy: [facility] [place] [id number] senna 8.6 Yes 17.2 mg = Mem oria mg oral 2-11 2 tab, PO, l tablet 16:46: Bedtime, 0 Naye nn 00 Refill(s) gabapentin Yes 300 mg = 1 M emoria 300 MG Oral 2-11 cap, PO, l Capsule 16:46: Q8H-05, # Naye nn 00 90 cap, 0 Refill(s), Pharmacy: [facility] methocarbam Yes 1,000 mg = Memoria ol 500 mg 2-11 2 tab, PO, l oral tablet 16:46: Q8H-05, Her baker 00 PRN Spasm, X 14 day, # 84 tab, 0 Refill(s), Pharmacy: [facility] tramadol Yes 100 mg = 2 [...] 6-10, 0 10 MG Oral Refill(s) Tablet [Fitzwilliam 10/325] FLUoxetine Yes 60 mg = 3 Me moria 20 mg oral 2-11 cap, PO, l capsule 16:46: Daily, # Kamari n 00 90 cap, 0 Refill(s), Pharmacy: [facility] senna 05.06 Yes 17.2 mg = Mem oria mg oral 2-11 2 tab, PO, l tablet 16:46: Bedtime, 0 Naye nn 00 Refill(s) gabapentin Yes 300 mg = 1 M emoria 300 MG Oral 2-11 cap, PO, l Capsule 16:46: Q8H-05, # Naye nn 00 90 cap, 0 Refill(s), Pharmacy: [facility] [place] [address] methocarbam Yes 1,000 mg = Memoria ol 500 mg 2-11 2 tab, PO, l oral tablet 16:46: Q8H-05, Her baker 00 PRN Spasm, X 14 day, # 84 tab, 0 Refill(s), Pharmacy: [facility] [place] [address] tramadol Yes 100 mg = 2 Mem [...] 6-10, 0 10 MG Oral Refill(s) Tablet [Fitzwilliam 10/325] FLUoxetine Yes 60 mg = 3 Me moria 20 mg oral 2-11 cap, PO, l capsule 16:46: Daily, # Kamari n 00 90 cap, 0 Refill(s), Pharmacy: [facility] [place] [address] senna 05.06 Yes 17.2 mg = Mem oria mg oral 2-11 2 tab, PO, l tablet 16:46: Bedtime, 0 Naye nn 00 Refill(s) gabapentin Yes 300 mg = 1 M emoria 300 MG Oral 2-11 cap, PO, l Capsule 16:46: Q8H-05, # Naye nn 00 90 cap, 0 Refill(s), Pharmacy: [facility] [place] [address] methocarbam Yes 1,000 mg = Memoria ol 500 mg 2-11 2 tab, PO, l oral tablet 16:46: Q8H-05, Her baker 00 PRN Spasm, X 14 day, # 84 tab, 0 Refill(s), Pharmacy: [facility] [place] [address] tramadol Yes 100 mg = 2 Mem oria hydrochlori 2-11 tab, PO, l de 50 MG 16:46: Q6H, PRN Naye nn Oral Tablet 00 Pain Score [Ultram] 4-6, X 14 day, # 112 tab, 0 Refill(s) Acetaminoph Yes 1 tab, PO, Memoria en 325 MG / 2-11 Q4H, PRN l Hydrocodone 16:46: Pain Score [place] Bitartrate 00 6-10, 0 10 MG Oral Refill(s) Tablet [Fitzwilliam 10/325] FLUoxetine Yes 60 mg = 3 Me moria 20 mg oral 2-11 cap, PO, l capsule 16:46: Daily, # Kamari n 00 90 cap, 0 Refill(s), Pharmacy: [facility] [place] [address] senna 8.6 Yes 17.2 mg = Mem oria mg oral 2-11 2 tab, PO, l tablet 16:46: Bedtime, 0 Naye nn 00 Refill(s) gabapentin Yes 300 mg = 1 M emoria 300 MG Oral 2-11 cap, PO, l Capsule 16:46: Q8H-05, # Naye nn 00 90 cap, 0 Refill(s), Pharmacy: [facility] methocarbam Yes 1,000 mg = Memoria ol 500 mg 2-11 2 tab, PO, l oral tablet 16:46: Q8H-05, Her baker 00 PRN Spasm, X 14 day, # 84 tab, 0 Refill(s), Pharmacy: [facility] [place] [address] tramadol Yes 100 mg = 2 Mem [...] 6-10, 0 10 MG Oral Refill(s) Tablet [Fitzwilliam 10/325] FLUoxetine Yes 60 mg = 3 Me moria 20 mg oral 2-11 cap, PO, l capsule 16:46: Daily, # Kamari n 00 90 cap, 0 Refill(s), Pharmacy: [facility] senna 8.6 Yes 17.2 mg = Mem oria mg oral 2-11 2 tab, PO, l tablet 16:46: Bedtime, 0 Naye nn 00 Refill(s) gabapentin Yes 300 mg = 1 M emoria 300 MG Oral 2-11 cap, PO, l Capsule 16:46: Q8H-05, # Naye nn 00 90 cap, 0 Refill(s), Pharmacy: [facility] methocarbam Yes 1,000 mg = Memoria ol 500 mg 2-11 2 tab, PO, l oral tablet 16:46: Q8H-05, Her baker 00 PRN Spasm, X 14 day, # 84 tab, 0 Refill(s), Pharmacy: [facility] tramadol No Notes: Not Mem oria [...] Notes: Memoria 2-11 (Same l 15:34: as:MORPhin [place] 00 e Sulfate) tramadol No Notes: Not Mem oria hydrochlori 2-11 to exceed l de 50 MG 15:34: 400mg/day. Her baker Oral Tablet 00 (Same As: [Ultram] Ultram) Morphine No Notes: Memoria 2-11 (Same l 15:34: as:MORPhin [place] 00 e Sulfate) tramadol No Notes: Not [...] Notes: Memoria 2-11 (Same l 15:34: as:MORPhin [place] 00 e Sulfate) tramadol No Notes: Not Mem oria hydrochlori 2-11 to exceed l de 50 MG 15:34: 400mg/day. Her baker Oral Tablet 00 (Same As: [Ultram] Ultram) Morphine No Notes: Memoria 2-11 (Same l 15:34: as:MORPhin [place] 00 e Sulfate) sennosides, No Notes: Raad kenna CARE HOME 2-11 (Same as: l 03:00: Senokot) [place] 00 Trazodone No Notes: Memori a 2-11 (Same As: l 03:00: Desyrel) [place] 00 sennosides, No Notes: Raad kenna CARE HOME 2-11 (Same as: l 03:00: Senokot) [place] Trazodone No Notes: Memori a 2-11 (Same As: l 03:00: Desyrel) [place] sennosides, No Notes: Raad kenna CARE HOME 2-11 (Same as: l 03:00: Senokot) [place] Trazodone No Notes: Memori a 2-11 (Same As: l 03:00: Desyrel) [place] sennosides, No Notes: Raad kenna CARE HOME 2-11 (Same as: l 03:00: Senokot) [place] Trazodone No Notes: Memori a 2-11 (Same As: l 03:00: Desyrel) [place] sennosides, No Notes: Raad kenna CARE HOME 2-11 (Same as: l 03:00: Senokot) [place] Trazodone No Notes: Memori a 2-11 (Same As: l 03:00: Desyrel) [place] sennosides, No Notes: Raad kenna CARE HOME 2-11 (Same as: l 03:00: Senokot) [place] Trazodone No Notes: Memori a 2-11 (Same As: l 03:00: Desyrel) [place] sennosides, No Notes: Raad kenna CARE HOME 2-11 (Same as: l 03:00: Senokot) [place] Trazodone No Notes: Memori a 2-11 (Same As: l 03:00: Desyrel) [place] Cefazolin No Notes: Memori a 2-10 (Same [...] 1000 mg Product Wasted: ___ mg Cefazolin 2016-0 No Notes: Memori a 2-10 (Same As: l 22:00: Ancef, [place] 00 Kefzol) MEDICATION WASTE Product Size: 1000 mg Product Wasted: ___ mg Cefazolin No Notes: Memori a 2-10 (Same As: l 22:00: Ancef, [place] 00 Kefzol) MEDICATION WASTE Product Size: 1000 mg Product Wasted: ___ mg Cefazolin No Notes: Memori a 2-10 (Same As: l 22:00: Ancef, [place] 00 Kefzol) MEDICATION WASTE Product Size: 1000 mg Product Wasted: ___ mg Cefazolin No Notes: Memori a 2-10 (Same As: l 22:00: Ancef, [place] 00 Kefzol) MEDICATION WASTE Product Size: 1000 mg Product Wasted: ___ mg Latuda No Notes: Memoria 2-10 (Same as: l 15:00: Latuda) [place] 00 Non-Formul em Prozac No Notes: Memoria 2-10 (Same as: l 15:00: Prozac, [place] 00 Sarafem) Latuda No Notes: Memoria 2-10 (Same as: l 15:00: Latuda) [place] 00 Non-Formul em Prozac No Notes: Memoria 2-10 (Same as: l 15:00: Prozac, [place] 00 Sarafem) Latuda No Notes: Memoria 2-10 (Same as: l 15:00: Latuda) [place] 00 Non-Formul em Prozac No Notes: Memoria 2-10 (Same as: l 15:00: Prozac, [place] 00 Sarafem) Latuda No Notes: Memoria 2-10 (Same as: l 15:00: Latuda) [place] 00 Non-Formul em Prozac No Notes: Memoria 2-10 (Same as: l 15:00: Prozac, [place] 00 Sarafem) Latuda No Notes: Memoria 2-10 (Same as: l 15:00: Latuda) [place] 00 Non-Formul em Prozac No Notes: Memoria 2-10 (Same as: l 15:00: Prozac, [place] 00 Sarafem) Latuda No Notes: Memoria 2-10 (Same as: l 15:00: Latuda) [place] 00 Non-Formul em Prozac No Notes: Memoria 2-10 (Same as: l 15:00: Prozac, [place] 00 Sarafem) Latuda No Notes: Memoria 2-10 (Same as: l 15:00: Latuda) [place] 00 Non-Formul em Prozac No Notes: Memoria [...] 2-10 Same as: l 14:58: Dilaudid [place] 00 Naloxone No Notes: Memoria 2-10 Same as l 14:58: Narcan [place] 00 Flumazenil No Notes: Memor ia 2-10 (Same as: l 14:58: Romazicon) [place] 00 Ondansetron No Notes: Raad kenna 2-10 (Same as: l 14:58: Zofran) [place] MEDICATION WASTE Product Size: 4 mg Product Wasted: ___ mg Oxycodone No Notes: Memori a 2-10 (Same as: l 14:58: Roxicodone [place] 00 ) Hydromorpho No Notes: Raad kenna ne 2-10 Same as: l 14:58: Dilaudid [place] 00 Naloxone 2017- No Notes: Memoria 2-10 Same as l 14:58: Narcan [place] Flumazenil 2017- No Notes: Memor ia 2-10 (Same as: l 14:58: Romazicon) [place] Ondansetron No Notes: Raad kenna 2-10 (Same as: l 14:58: Zofran) [place] 00 MEDICATION WASTE Product Size: 4 mg Product Wasted: ___ mg Oxycodone 2017- No Notes: Memori a 2-10 (Same as: l 14:58: Roxicodone [place] ) Hydromorpho No Notes: Raad kenna ne 2-10 Same as: l 14:58: Dilaudid [place] Naloxone No Notes: Memoria 2-10 Same as l 14:58: Narcan [place] Flumazenil No Notes: Memor ia 2-10 (Same as: l 14:58: Romazicon) [place] Ondansetron No Notes: Raad kenna 2-10 (Same as: l 14:58: Zofran) [place] 00 MEDICATION WASTE Product Size: 4 mg Product Wasted: ___ mg Oxycodone 2017-0 No Notes: Memori a 2-10 (Same as: l 14:58: Roxicodone [place] ) Hydromorpho No Notes: Raad kenna ne 2-10 Same as: l 14:58: Dilaudid [place] 00 Naloxone 2017-0 No Notes: Memoria 2-10 Same as l 14:58: Narcan [place] Flumazenil No Notes: Memor ia 2-10 (Same as: l 14:58: Romazicon) [place] Ondansetron 0 No Notes: Raad kenna 2-10 (Same as: l 14:58: Zofran) [place] 00 MEDICATION WASTE Product Size: 4 mg Product Wasted: ___ mg Oxycodone 2017-0 No Notes: Memori a 2-10 (Same as: l 14:58: Roxicodone [place] 00 ) Hydromorpho No Notes: Raad kenna ne 2-10 Same as: l 14:58: Dilaudid [place] 00 Naloxone No Notes: Memoria 2-10 Same as l 14:58: Narcan [place] 00 Flumazenil No Notes: Memor ia 2-10 (Same as: l 14:58: Romazicon) [place] Ondansetron No Notes: Raad kenna 2-10 (Same as: l 14:58: Zofran) [place] 00 MEDICATION WASTE Product Size: 4 mg Product Wasted: ___ mg Oxycodone No Notes: Memori a 2-10 (Same as: l 14:58: Roxicodone [place] 00 ) Hydromorpho No Notes: Raad kenna ne 2-10 Same as: l 14:58: Dilaudid [place] 00 Naloxone No Notes: Memoria 2-10 Same as l 14:58: Narcan [place] 00 Flumazenil No Notes: Memor ia 2-10 (Same as: l 14:58: Romazicon) [place] Ondansetron No Notes: Raad kenna 2-10 (Same as: l 14:58: Zofran) [place] 00 MEDICATION WASTE Product Size: 4 mg Product Wasted: ___ mg Oxycodone No Notes: Memori a 2-10 (Same as: l 14:58: Roxicodone [place] 00 ) Hydromorpho No Notes: Raad kenna ne 2-10 Same as: l 14:58: Dilaudid [place] 00 Naloxone No Notes: Memoria 2-10 Same as l 14:58: Narcan [place] 00 Flumazenil No Notes: Memor ia 2-10 (Same as: l 14:58: Romazicon) [place] Ancef No 2 gm, Memoria 2-10 Route: l 13:28: IVPB, [place] 00 ONCE, Dosing Weight 88.636, kg, Start date: 11/10/16 7:28:00 [employer]PUTY GENERAL COUNSEL, Duration: 1 doses or times, Stop date: 11/10/16 7:28:00 [employer]Y GENER[employer]SEL, Surgical Prophylaxi s Only; For patients < 120 kg Ancef 2017-0 No 2 gm, Memoria 2-10 Route: l 13:28: IVPB, [place] 00 ONCE, Dosing Weight 88.636, kg, Start date: 11/10/16 7:28:00 DEPUTY GENERAL COUNSEL, Duration: 1 doses or times, Stop date: 11/10/16 7:28:00 DEPUTY GENERAL COUNSEL, Surgical Prophylaxi s Only; For patients < 120 kg Ancef 2017-0 No 2 gm, Memoria 2-10 Route: l 13:28: IVPB, [place] 00 ONCE, Dosing Weight 88.636, kg, Start date: 11/10/16 7:28:00 DEPUTY GENERAL COUNSEL, Duration: 1 doses or times, Stop date: 11/10/16 7:28:00 DEPUTY GENERAL COUNSEL, Surgical Prophylaxi s Only; For patients < 120 kg Ancef 2017-0 No 2 gm, Memoria 2-10 Route: l 13:28: IVPB, [place] 00 ONCE, Dosing Weight 88.636, kg, Start date: 11/10/16 7:28:00 DEPUTY GENERAL COUNSEL, Duration: 1 doses or times, Stop date: 11/10/16 7:28:00 DEPUTY GENERAL COUNSEL, Surgical Prophylaxi s Only; For patients < 120 kg Ancef 2017-0 No 2 gm, Memoria 2-10 Route: l 13:28: IVPB, [place] 00 ONCE, Dosing Weight 88.636, kg, Start date: 11/10/16 7:28:00 DEPUTY GENERAL COUNSEL, Duration: 1 doses or times, Stop date: 11/10/16 7:28:00 DEPUTY GENERAL COUNSEL, Surgical Prophylaxi s Only; For patients < 120 kg Ancef 2017-0 No 2 gm, Memoria 2-10 Route: l 13:28: IVPB, [place] 00 ONCE, Dosing Weight 88.636, kg, Start date: 11/10/16 7:28:00 DE[employer]Y GENERAL COUNSEL, Duration: 1 doses or times, Stop date: 11/10/16 7:28:00 DEPUTY GENERAL COUNSEL, Surgical Prophylaxi s Only; For patients < 120 kg Ancef 2017-0 No 2 gm, Memoria 2-10 Route: l 13:28: IVPB, [place] 00 ONCE, Dosing Weight 88.636, kg, Start date: 11/10/16 7:28:00 DE[employer]Y GENERAL COUNSEL, Duration: 1 doses or times, Stop date: 11/10/16 7:28:00 DEPUTY GENERAL COUNSEL, Surgical Prophylaxi s Only; For patients < 120 kg ketOROLAC No 4 days. Raad kenna 15 mg/mL 2-10 l injectable 12:00: [place] solution 00 ketOROLAC No 4 days. Raad kenna 15 mg/mL 2-10 l injectable 12:00: [place] solution ketOROLAC 0 No 4 days. Raad kenna 15 mg/mL 2-10 l injectable 12:00: [place] solution 00 ketOROLAC No 4 days. Raad kenna 15 mg/mL 2-10 l injectable 12:00: [place] solution 00 ketOROLAC No 4 days. Raad kenna 15 mg/mL 2-10 l injectable 12:00: [place] solution ketOROLAC No 4 days. Raad kenna 15 mg/mL 2-10 l injectable 12:00: [place] solution ketOROLAC 0 No 4 days. Raad kenna 15 mg/mL 2-10 l injectable 12:00: [place] solution 00 Lovenox No Notes: Memoria 2-10 (Same as: l 10:00: Lovenox) [place] Lovenox No Notes: Memoria 2-10 (Same as: l 10:00: Lovenox) [place] Lovenox No Notes: Memoria 2-10 (Same as: l 10:00: Lovenox) [place] Lovenox No Notes: Memoria 2-10 (Same as: l 10:00: Lovenox) [place] Lovenox No Notes: Memoria 2-10 (Same as: l 10:00: Lovenox) [place] Lovenox No Notes: Memoria 2-10 (Same as: l 10:00: Lovenox) [place] Lovenox No Notes: Memoria 2-10 (Same as: l 10:00: Lovenox) [place] Fentanyl 0 No 50 kg Memoria 2-10 l 09:06: [place] Fentanyl No 50 kg Memoria 2-10 l 09:06: [place] Fentanyl 2017-0 No 50 kg Memoria 2-10 l 09:06: Fentanyl 2016-0 No 50 kg Memoria 2-10 l 09:06: Fentanyl 2017-0 No 50 kg Memoria 2-10 l 09:06: Fentanyl 2017-0 No 50 kg Memoria 2-10 l 09:06: Fentanyl 2017-0 No 50 kg Memoria 2-10 l 09:06: Acetaminoph No Notes: Do M emoria en 325 MG / 2-10 not exceed l Hydrocodone 08:51: 4gm/day of [place] Bitartrate 00 acetaminop 10 MG Oral hen. (Same Tablet as: Fitzwilliam [Fitzwilliam 325/10) ] gabapentin No Notes: Memor ia 300 MG Oral 2-10 (Same as: l Capsule 08:51: Neurontin) Herm vivian Robaxin No Notes: Memoria 2-10 (Same l 08:51: as:Robaxin [place] 00 ) ketOROLAC No 15 mg, Memori a 15 mg/mL 2-10 Route: IM, l injectable 08:51: Q6H, kg, Her baker solution 00 Priority: NOW, Start date: 11/10/16 2:51:00 [employer] GENER[employer] COUNSEL, Duration: 4 day, Stop date: 11/14/16 0:00:00 [employer] Acetaminoph No Notes: Do M emoria en 325 MG / 2-10 not exceed l Hydrocodone 08:51: 4gm/day of [place] Bitartrate 00 acetaminop 10 MG Oral hen. (Same Tablet as: Fitzwilliam [Fitzwilliam 325/10) ] gabapentin No Notes: Memor ia 300 MG Oral 2-10 (Same as: l Capsule 08:51: Neurontin) Herm vivian Robaxin No Notes: Memoria 2-10 (Same l 08:51: as:Robaxin [place] 00 ) ketOROLAC 20170 No 15 mg, Memori a 15 mg/mL 2-10 Route: IM, l injectable 08:51: Q6H, kg, Her baker solution 00 Priority: NOW, Start date: 11/10/16 2:51:00 [employer] GENERAL COUNSEL, Duration: 4 day, Stop date: 11/14/16 0:00:00 [employer] Acetaminoph No Notes: Do M emoria en 325 MG / 2-10 not exceed l Hydrocodone 08:51: 4gm/day of [place] Bitartrate 00 acetaminop 10 MG Oral hen. (Same Tablet as: Fitzwilliam [Fitzwilliam 325/10) 10325] gabapentin No Notes: Memor ia 300 MG Oral 2-10 (Same as: l Capsule 08:51: Neurontin) Herm vivian Robaxin No Notes: Memoria 2-10 (Same l 08:51: as:Robaxin [place] ) ketOROLAC No 15 mg, Memori a 15 mg/mL 2-10 Route: IM, l injectable 08:51: Q6H, kg, Her baker solution 00 Priority: NOW, Start date: 11/10/16 2:51:00 [employer] GENERAL COUNSEL, Duration: 4 day, Stop date: 11/14/16 0:00:00 [employer]SEL Acetaminoph No Notes: Do M emoria en 325 MG / 2-10 not exceed l Hydrocodone 08:51: 4gm/day of [place] Bitartrate 00 acetaminop 10 MG Oral hen. (Same Tablet as: Fitzwilliam [Fitzwilliam 325/10) 10325] gabapentin No Notes: Memor ia 300 MG Oral 2-10 (Same as: l Capsule 08:51: Neurontin) Herm vivian Robaxin No Notes: Memoria 2-10 (Same l 08:51: as:Robaxin [place] ) ketOROLAC No 15 mg, Memori a 15 mg/mL 2-10 Route: IM, l injectable 08:51: Q6H, kg, Her bakre solution 00 Priority: NOW, Start date: 11/10/16 2:51:00 [employer]Y GENERAL COUNSEL, Duration: 4 day, Stop date: 11/14/16 0:00:00 [employer]SEL Acetaminoph No Notes: Do M emoria en 325 MG / 2-10 not exceed l Hydrocodone 08:51: 4gm/day of [place] Bitartrate 00 acetaminop 10 MG Oral hen. (Same Tablet as: Fitzwilliam [Fitzwilliam 325/10) 10325] gabapentin No Notes: Memor ia 300 MG Oral 2-10 (Same as: l Capsule 08:51: Neurontin) Herm vivian Robaxin No Notes: Memoria 2-10 (Same l 08:51: as:Robaxin [place] ) ketOROLAC No 15 mg, Memori a 15 mg/mL 2-10 Route: IM, l injectable 08:51: Q6H, kg, Her baker solution 00 Priority: NOW, Start date: 11/10/16 2:51:00 [employer]Y GENERAL COUNSEL, Duration: 4 day, Stop date: 11/14/16 0:00:00 [employer]SEL Acetaminoph No Notes: Do M emoria en 325 MG / 2-10 not exceed l Hydrocodone 08:51: 4gm/day of [place] Bitartrate 00 acetaminop 10 MG Oral hen. (Same Tablet as: Fitzwilliam [Fitzwilliam 325/10) 10325] gabapentin No Notes: Memor ia 300 MG Oral 2-10 (Same as: l Capsule 08:51: Neurontin) Herm vivian Robaxin No Notes: Memoria 2-10 (Same l 08:51: as:Robaxin [place] 00 ) ketOROLAC No 15 mg, Memori a 15 mg/mL 2-10 Route: IM, l injectable 08:51: Q6H, kg, Her baker solution 00 Priority: NOW, Start date: 11/10/16 2:51:00 [employer]Y GENERAL COUNSEL, Duration: 4 day, Stop date: 11/14/16 0:00:00 [employer] COUNSEL Acetaminoph No Notes: Do M emoria en 325 MG / 2-10 not exceed l Hydrocodone 08:51: 4gm/day of [place] Bitartrate 00 acetaminop 10 MG Oral hen. (Same Tablet as: Fitzwilliam [Fitzwilliam 325/10) 10325] gabapentin No Notes: Memor ia 300 MG Oral 2-10 (Same as: l Capsule 08:51: Neurontin) Herm vivian Robaxin No Notes: Memoria 2-10 (Same l 08:51: as:Robaxin [place] ) ketOROLAC No 15 mg, Memori a 15 mg/mL 2-10 Route: IM, l injectable 08:51: Q6H, kg, Her baker solution 00 Priority: NOW, Start date: 11/10/16 2:51:00 [employer] COUNSEL, Duration: 4 day, Stop date: 11/14/16 0:00:00 [employer]Y GENERAL COUNSEL Lurasidone 2017-0 Yes 20 mg = 1 Me moria Hydrochlori 2-10 tab, PO, l de 20 MG 08:49: Daily, 0 Naye nn Oral Tablet 00 Refill(s) [Latuda] trazodone 2017-0 Yes 150 mg = 1 Me moria 150 mg oral 2-10 tab, PO, l tablet 08:49: Bedtime, # Naye nn 00 30 tab, 0 Refill(s) Fluoxetine 2017-0 No 40 mg = 1 Me moria 40 MG Oral 2-10 cap, PO, l Capsule 08:49: Daily, # Kamari n [Prozac] 00 30 cap, 0 Refill(s) Lurasidone 2017-0 Yes 20 mg = 1 Me moria Hydrochlori 2-10 tab, PO, l de 20 MG 08:49: Daily, 0 Naye nn Oral Tablet 00 Refill(s) [Latuda] trazodone 2017-0 Yes 150 mg = 1 Me moria 150 mg oral 2-10 tab, PO, l tablet 08:49: Bedtime, # Naye nn 00 30 tab, 0 Refill(s) Fluoxetine 2017-0 No 40 mg = 1 Me moria 40 MG Oral 2-10 cap, PO, l Capsule 08:49: Daily, # Kamari n [Prozac] 00 30 cap, 0 Refill(s) Lurasidone 2017-0 Yes 20 mg = 1 Me moria Hydrochlori 2-10 tab, PO, l de 20 MG 08:49: Daily, 0 Naye nn Oral Tablet 00 Refill(s) [Latuda] trazodone 2017-0 Yes 150 mg = 1 Me moria 150 mg oral 2-10 tab, PO, l tablet 08:49: Bedtime, # Naye nn 00 30 tab, 0 Refill(s) Fluoxetine 2017-0 No 40 mg = 1 Me moria 40 MG Oral 2-10 cap, PO, l Capsule 08:49: Daily, # Kamari n [Prozac] 00 30 cap, 0 Refill(s) Lurasidone 2017-0 Yes 20 mg = 1 Me moria Hydrochlori 2-10 tab, PO, l de 20 MG 08:49: Daily, 0 Naye nn Oral Tablet 00 Refill(s) [Latuda] trazodone 2017-0 Yes 150 mg = 1 Me moria 150 mg oral 2-10 tab, PO, l tablet 08:49: Bedtime, # Naye nn 00 30 tab, 0 Refill(s) Fluoxetine 2017-0 No 40 mg = 1 Me moria 40 MG Oral 2-10 cap, PO, l Capsule 08:49: Daily, # Kamari n [Prozac] 00 30 cap, 0 Refill(s) Lurasidone 2017-0 Yes 20 mg = 1 Me moria Hydrochlori 2-10 tab, PO, l de 20 MG 08:49: Daily, 0 Naye nn Oral Tablet 00 Refill(s) [Latuda] trazodone 2017-0 Yes 150 mg = 1 Me moria 150 mg oral 2-10 tab, PO, l tablet 08:49: Bedtime, # Naye nn 00 30 tab, 0 Refill(s) Fluoxetine 2017-0 No 40 mg = 1 Me moria 40 MG Oral 2-10 cap, PO, l Capsule 08:49: Daily, # Kamari n [Prozac] 00 30 cap, 0 Refill(s) Lurasidone 2017-0 Yes 20 mg = 1 Me moria Hydrochlori 2-10 tab, PO, l de 20 MG 08:49: Daily, 0 Naye nn Oral Tablet 00 Refill(s) [Latuda] trazodone 2017-0 Yes 150 mg = 1 Me moria 150 mg oral 2-10 tab, PO, l tablet 08:49: Bedtime, # Naye nn 00 30 tab, 0 Refill(s) Fluoxetine 2017-0 No 40 mg = 1 Me moria 40 MG Oral 2-10 cap, PO, l Capsule 08:49: Daily, # Kamari n [Prozac] 00 30 cap, 0 Refill(s) Lurasidone 2017-0 Yes 20 mg = 1 Me moria Hydrochlori 2-10 tab, PO, l de 20 MG 08:49: Daily, 0 Naye nn Oral Tablet 00 Refill(s) [Latuda] trazodone 2017-0 Yes 150 mg = 1 Me moria [...] en 2-10 acetaminop l 08:15: hen 4000 [place] 00 mg/day (4 gm/day). (Same as: Tylenol Extra Strength) Ondansetron No Notes: Raad kenna 2-10 (Same as: l 08:15: Zofran) [place] 00 MEDICATION WASTE Product Size: 4 mg Product Wasted: ___ mg Acetaminoph 2016- No Notes: Max Memoria en 2-10 acetaminop l 08:15: hen 4000 [place] 00 mg/day (4 gm/day). (Same as: Tylenol Extra Strength) Ondansetron 2016- No Notes: Raad kenna 2-10 (Same as: l 08:15: Zofran) [place] 00 MEDICATION WASTE Product Size: 4 mg Product Wasted: ___ mg Acetaminoph No Notes: Max Memoria en 2-10 acetaminop l 08:15: hen 4000 [place] 00 mg/day (4 gm/day). (Same as: Tylenol Extra Strength) Ondansetron No Notes: Raad kenna 2-10 (Same as: l 08:15: Zofran) [place] 00 MEDICATION WASTE Product Size: 4 mg Product Wasted: ___ mg Acetaminoph No Notes: Max Memoria en 2-10 acetaminop l 08:15: hen 4000 [place] 00 mg/day (4 gm/day). (Same as: Tylenol [...] kenna 2-10 (Same as: l 08:15: Zofran) [place] 00 MEDICATION WASTE Product Size: 4 mg Product Wasted: ___ mg Acetaminoph 0 No Notes: Max Memoria en 2-10 acetaminop l 08:15: hen 4000 [place] 00 mg/day (4 gm/day). (Same as: Tylenol Extra Strength) Ondansetron 2016-0 No Notes: Raad kenna 2-10 (Same as: l 08:15: Zofran) [place] 00 MEDICATION WASTE Product Size: 4 mg Product Wasted: ___ mg Acetaminoph 2017-0 No Notes: Max Memoria en 2-10 acetaminop l 08:15: hen 4000 [place] 00 mg/day (4 gm/day). (Same as: Tylenol Extra Strength) Ondansetron 0 No Notes: Raad kenna 2-10 (Same as: l 08:15: Zofran) [place] 00 MEDICATION WASTE Product Size: 4 mg Product Wasted: ___ mg Morphine 2017-0 No 4 mg, Memoria 2-10 Route: l 07:40: IVP, ONCE, [place] 00 kg, Priority: STAT, Start date: 11/10/16 1:40:00 [employer], Stop date: 11/10/16 1:40:00 [employer] Morphine 2017-0 No 4 mg, Memoria 2-10 Route: l 07:40: IVP, ONCE, [place] 00 kg, Priority: STAT, Start date: 11/10/16 1:40:00 [employer], Stop date: 11/10/16 1:40:00 [employer]SEL Morphine 2017-0 No 4 mg, Memoria 2-10 Route: l 07:40: IVP, ONCE, [place] 00 kg, Priority: STAT, Start date: 11/10/16 1:40:00 [employer], Stop date: 11/10/16 1:40:00 [employer]SEL Morphine 2017-0 No 4 mg, Memoria 2-10 Route: l 07:40: IVP, ONCE, [place] 00 kg, Priority: STAT, Start date: 11/10/16 1:40:00 [employer], Stop date: 11/10/16 1:40:00 [employer] Morphine 2017-0 No 4 mg, Memoria 2-10 Route: l 07:40: IVP, ONCE, [place] 00 kg, Priority: STAT, Start date: 11/10/16 1:40:00 [employer], Stop date: 11/10/16 1:40:00 [employer] Morphine 2017-0 No 4 mg, Memoria 2-10 Route: l 07:40: IVP, ONCE, [place] 00 kg, Priority: STAT, Start date: 11/10/16 1:40:00 [employer], Stop date: 11/10/16 1:40:00 [employer]SEL Morphine 2017-0 No 4 mg, [facility]oria 2-10 Route: l 07:40: IVP, ONCE, [place] 00 kg, Priority: STAT, Start date: 11/10/16 1:40:00 [employer], Stop date: 11/10/16 1:40:00 [employer] Dilaudid 2017-0 No 2 mg, Memoria 2-10 Route: l 05:28: IVP, ONCE, [place] 00 kg, Priority: STAT, Start date: 11/09/16 23:28:00 [employer], Stop date: 11/09/16 23:28:00 [employer] Dilaudid 2017-0 No 2 mg, [facility]oria 2-10 Route: l 05:28: IVP, ONCE, [place] 00 kg, Priority: STAT, Start date: 11/09/16 23:28:00 [employer], Stop date: 11/09/16 23:28:00 [employer] Dilaudid 2017-0 No 2 mg, Memoria 2-10 Route: l 05:28: IVP, ONCE, [place] 00 kg, Priority: STAT, Start date: 11/09/16 23:28:00 DEPUTY GENERAL COUNSEL, Stop date: 11/09/16 23:28:00 DEPUTY GENERAL COUNSEL Dilaudid 2017-0 No 2 mg, Mem[facility] 2-10 Route: l 05:28: IVP, ONCE, [place] 00 kg, Priority: STAT, Start date: 11/09/16 23:28:00 DEPUTY GENERAL COUNSEL, Stop date: 11/09/16 23:28:00 DEPUTY GENERAL COUNSEL Dilaudid 2017-0 No 2 mg, Memoria 2-10 Route: l 05:28: IVP, ONCE, [place] 00 kg, Priority: STAT, Start date: 11/09/16 23:28:00 DEPUTY GENERAL COUNSEL, Stop date: 11/09/16 23:28:00 DEPUTY GENERAL COUNSEL Dilaudid 2017-0 No 2 mg, Memoria 2-10 Route: l 05:28: IVP, ONCE, [place] 00 kg, Priority: STAT, Start date: 11/09/16 23:28:00 DEPUTY GENERAL COUNSEL, Stop date: 11/09/16 23:28:00 DEPUTY GENERAL COUNSEL Dilaudid 2017-0 No 2 mg, Memoria 2-10 Route: l 05:28: IVP, ONCE, [place] 00 kg, Priority: STAT, Start date: 11/09/16 23:28:00 DEPUTY GENERAL COUNSEL, Stop date: 11/09/16 23:28:00 DEPUTY GENERAL COUNSEL Sodium 2017-0 No 2,000 mL, Memori a Chloride 2-10 2,000 l 0.154 05:10: ml/hr, [place] MEQ/ML 00 Infuse Injectable Over: 1 Solution hr, Route: IV, 2,000, Drug form: INJ, ONCE, Priority: STAT, kg, Start date: 11/09/16 23:10:00 DEPUTY GENERAL COUNSEL, Duration: 1 doses or times, Stop date: 11/09/16 23:10:00 DEPUTY GENERAL COUNSEL Sodium 2017-0 No 2,000 mL, [facility] a Chloride 2-10 2,000 l 0.154 05:10: ml/hr, [place] MEQ/ML 00 Infuse Injectable Over: 1 Solution hr, Route: IV, 2,000, Drug form: INJ, ONCE, Priority: STAT, kg, Start date: 11/09/16 23:10:00 DEPUTY GENERAL COUNSEL, Duration: 1 doses or times, Stop date: 11/09/16 23:10:00 DEPUTY GENERAL COUNSEL Sodium 2017-0 No 2,000 mL, Mem[facility] a Chloride 2-10 2,000 l 0.154 05:10: ml/hr, [place] MEQ/ML 00 Infuse Injectable Over: 1 Solution hr, Route: IV, 2,000, Drug form: INJ, ONCE, Priority: STAT, kg, Start date: 11/09/16 23:10:00 DEPUTY GENERAL COUNSEL, Duration: 1 doses or times, Stop date: 11/09/16 23:10:00 DEPUTY GENERAL COUNSEL Sodium 2017-0 No 2,000 mL, Mem[facility] a Chloride 2-10 2,000 l 0.154 05:10: ml/hr, [place] MEQ/ML 00 Infuse Injectable Over: 1 Solution hr, Route: IV, 2,000, Drug form: INJ, ONCE, Priority: STAT, kg, Start date: 11/09/16 23:10:00 DEPUTY GENERAL COUNSEL, Duration: 1 doses or times, Stop date: 11/09/16 23:10:00 DEPUTY GENERAL COUNSEL Sodium 2017-0 No 2,000 mL, Mem[facility] a Chloride 2-10 2,000 l 0.154 05:10: ml/hr, [place] MEQ/ML 00 Infuse Injectable Over: 1 Solution hr, Route: IV, 2,000, Drug form: INJ, ONCE, Priority: STAT, kg, Start date: 11/09/16 23:10:00 DEPUTY GENERAL COUNSEL, Duration: 1 doses or times, Stop date: 11/09/16 23:10:00 DEPUTY GENERAL COUNSEL Sodium 2017-0 No 2,000 mL, [facility] a Chloride 2-10 2,000 l 0.154 05:10: ml/hr, [place] MEQ/ML 00 Infuse Injectable Over: 1 Solution hr, Route: IV, 2,000, Drug form: INJ, ONCE, Priority: STAT, kg, Start date: 11/09/16 23:10:00 DEPUTY GENERAL COUNSEL, Duration: 1 doses or times, Stop date: 11/09/16 23:10:00 DEPUTY GENERAL COUNSEL Sodium 2017-0 No 2,000 mL, [facility] a Chloride 2-10 2,000 l 0.154 05:10: ml/hr, Jadne MEQ/ML 00 Infuse Injectable Over: 1 Solution hr, Route: IV, 2,000, Drug form: INJ, ONCE, Priority: STAT, kg, Start date: 11/09/16 23:10:00 DEPUTY GENERAL COUNSEL, Duration: 1 doses or times, Stop date: 11/09/16 23:10:00 DEPUTY GENERAL COUNSEL Zofran 2017-0 No Notes: [facility] 2-10 (Same as: l 04:51: Zofran) [place] 00 MEDICATION WASTE Product Size: 4 mg Product Wasted: ___ mg Zofran 2017-0 No Notes: [facility] 2-10 (Same as: l 04:51: Zofran) [place] 00 MEDICATION WASTE Product Size: 4 mg Product Wasted: ___ mg Zofran 2016-0 No Notes: [facility] 2-10 (Same as: l [...] kg, Priority: STAT, Start date: 11/09/16 22:50:00 DEPUTY GENERAL COUNSEL, Stop date: 11/09/16 22:50:00 DEPUTY GENERAL COUNSEL Morphine 2017-0 No 4 mg, [facility] 2-10 Route: l 04:50: IVP, ONCE, [place] 00 kg, Priority: STAT, Start date: 11/09/16 22:50:00 DEPUTY GENERAL COUNSEL, Stop date: 11/09/16 22:50:00 DEPUTY GENERAL COUNSEL Morphine 2017-0 No 4 mg, [facility] 2-10 Route: l 04:50: IVP, ONCE, [place] 00 kg, Priority: STAT, Start date: 11/09/16 22:50:00 DEPUTY GENERAL COUNSEL, Stop date: 11/09/16 22:50:00 DEPUTY GENERAL COUNSEL Morphine 2017-0 No 4 mg, [facility] 2-10 Route: l 04:50: IVP, ONCE, [place] 00 kg, Priority: STAT, Start date: 11/09/16 22:50:00 DEPUTY GENERAL COUNSEL, Stop date: 11/09/16 22:50:00 DEPUTY GENERAL COUNSEL Morphine 2017-0 No 4 mg, [facility] 2-10 Route: l 04:50: IVP, ONCE, [place] 00 kg, Priority: STAT, Start date: 11/09/16 22:50:00 DEPUTY GENERAL COUNSEL, Stop date: 11/09/16 22:50:00 DEPUTY GENERAL COUNSEL Morphine 2017-0 No 4 mg, [facility] 2-10 Route: l 04:50: IVP, ONCE, [place] 00 kg, Priority: STAT, Start date: 11/09/16 22:50:00 DEPUTY GENERAL COUNSEL, Stop date: 11/09/16 22:50:00 DEPUTY GENERAL COUNSEL Morphine 2017-0 No 4 mg, [facility] 2-10 Route: l 04:50: IVP, ONCE, [place] 00 kg, Priority: STAT, Start date: 11/09/16 22:50:00 DEPUTY GENERAL COUNSEL, Stop date: 11/09/16 22:50:00 DEPUTY GENERAL COUNSEL Ketamine 2017-0 No 100 mg, Mem[facility] a 2-10 Route: l 04:11: IVP, ONCE, [place] 00 kg, Priority: STAT, Start date: 11/09/16 22:11:00 DEPUTY GENERAL COUNSEL, Stop date: 11/09/16 22:11:00 DEPUTY GENERAL COUNSEL Ketamine 2017-0 No 100 mg, Mem[facility] a 2-10 Route: l 04:11: IVP, ONCE, [place] 00 kg, Priority: STAT, Start date: 11/09/16 22:11:00 DEPUTY GENERAL COUNSEL, Stop date: 11/09/16 22:11:00 DEPUTY GENERAL COUNSEL Ketamine 2017-0 No 100 mg, Mem[facility] a 2-10 Route: l 04:11: IVP, ONCE, [place] 00 kg, Priority: STAT, Start date: 11/09/16 22:11:00 DEPUTY GENERAL COUNSEL, Stop date: 11/09/16 22:11:00 DEPUTY GENERAL COUNSEL Ketamine 2017-0 No 100 mg, Mem[facility] a 2-10 Route: l 04:11: IVP, ONCE, [place] 00 kg, Priority: STAT, Start date: 11/09/16 22:11:00 DEPUTY GENERAL COUNSEL, Stop date: 11/09/16 22:11:00 DEPUTY GENERAL COUNSEL Ketamine 2017-0 No 100 mg, Mem[facility] a 2-10 Route: l 04:11: IVP, ONCE, [place] 00 kg, Priority: STAT, Start date: 11/09/16 22:11:00 DEPUTY GENERAL COUNSEL, Stop date: 11/09/16 22:11:00 DEPUTY GENERAL COUNSEL Ketamine 2017-0 No 100 mg, Mem[facility] a 2-10 Route: l 04:11: IVP, ONCE, [place] 00 kg, Priority: STAT, Start date: 11/09/16 22:11:00 DEPUTY GENERAL COUNSEL, Stop date: 11/09/16 22:11:00 DEPUTY GENERAL COUNSEL Ketamine 2017-0 No 100 mg, Mem[facility] a 2-10 Route: l 04:11: IVP, ONCE, [place] 00 kg, Priority: STAT, Start date: 11/09/16 22:11:00 DEPUTY GENERAL COUNSEL, Stop date: 11/09/16 22:11:00 DEPUTY GENERAL COUNSEL Fentanyl 2017-0 No Notes: [facility] 2-10 (Same as: l 04:09: Sublimaze) [place] 00 Preservati ve free. Fentanyl 2017-0 No Notes: [facility] 2-10 (Same as: l 04:09: Sublimaze) [place] 00 Preservati ve free. Fentanyl 2017-0 No Notes: [facility] 2-10 (Same as: l 04:09: Sublimaze) [place] 00 Preservati ve free. Fentanyl 2017-0 No Notes: [facility] 2-10 (Same as: l 04:09: Sublimaze) [place] 00 Preservati ve free. Fentanyl 2017-0 No Notes: [facility] 2-10 (Same as: l 04:09: Sublimaze) [place] 00 Preservati ve free. Fentanyl 2017-0 No Notes: [facility] 2-10 (Same as: l 04:09: Sublimaze) [place] 00 Preservati ve free. Fentanyl 2017-0 No Notes: [facility] 2-10 (Same as: l 04:09: Sublimaze) [place] 00 Preservati ve free. Fentanyl 2017-0 No Notes: [facility] 2-10 (Same as: l 04:08: Sublimaze) [place] 00 Preservati ve free. Fentanyl 2017-0 No Notes: [facility] 2-10 (Same as: l 04:08: Sublimaze) [place] 00 Preservati ve free. Fentanyl 2017-0 No Notes: [facility] 2-10 (Same as: l 04:08: Sublimaze) [place] 00 Preservati ve free. Fentanyl 2017-0 No Notes: [facility] 2-10 (Same as: l 04:08: Sublimaze) [place] 00 Preservati ve free. Fentanyl 2017-0 No Notes: [facility] 2-10 (Same as: l 04:08: Sublimaze) [place] 00 Preservati ve free. Fentanyl 2017-0 No Notes: [facility] 2-10 (Same as: l 04:08: Sublimaze) [place] 00 Preservati ve free. Fentanyl 2017-0 No Notes: [facility] 2-10 (Same as: l 04:08: Sublimaze) [place] 00 Preservati ve free. Saline 2017-0 No Notes: [facility] Flush 0.9% 2-10 (Same as: l 03:30: BD [place] 00 Posiflush) Saline 2017-0 No Notes: [facility] Flush 0.9% 2-10 (Same as: l 03:30: BD [place] 00 Posiflush) Saline No Notes: [facility] Flush 0.9% 2-10 (Same as: l 03:30: BD [place] 00 Posiflush) Saline No Notes: [facility] Flush 0.9% 2-10 (Same as: l 03:30: BD [place] 00 Posiflush) Saline No Notes: [facility] Flush 0.9% 2-10 (Same as: l 03:30: BD [place] 00 Posiflush) Saline No Notes: [facility] Flush 0.9% 2-10 (Same as: l 03:30: BD [place] 00 Posiflush) Saline No Notes: [facility] Flush 0.9% 2-10 (Same as: l 03:30: BD [place] 00 Posiflush) famotidine 2015-10 Yes Heartburn 40mg [...] 2 Kahn (DESYREL) 1-18 unspecified tablets by [facility] 100 mg 00:00: type mouth at [...] Source Name Name Influenza Vaccine 2016-07-03 Completed [facility] 00:00:00 Influenza Vaccine 2016-07-03 Completed [facility] 00:00:00 Influenza Vaccine 2016-07-03 Completed [facility] 00:00:00 PPD 2012-02-27 Completed [facility] 00:00:00 PPD 2012-02-27 Completed [facility] 00:00:00 PPD 2012-02-27 Completed [facility] 00:00:00 PPD 2011-02-13 Completed [facility] 00:00:00 PPD 2011-02-13 Completed [facility] 00:00:00 PPD 2011-02-13 Completed [facility] 00:00:00 Vital Signs Vital Name Observation Time Observation Value Comments Source Systolic blood 2022-09-02 17:19:00 107 mm[Hg] [facility] Diastolic blood 2022-09-02 17:19:00 65 mm[Hg] [facility] Heart rate 2022-09-02 17:19:00 70 /min [facility] Body temperature 2022-09-02 17:19:00 35.83 Jennifer [facility] Respiratory rate 2022-09-02 17:19:00 18 /min [facility] Oxygen saturation in 2022-09-02 17:19:00 97 /min [facility] [place] [facility] Body weight 2022-09-01 09:58:00 70.988 kg [facility] BMI 2022-09-01 09:58:00 23.80 kg/m2 [facility] Body height 2022-08-20 00:20:00 172.7 cm [facility] Systolic blood 2022-08-12 03:27:00 120 mm[Hg] [facility] Diastolic blood 2022-08-12 03:27:00 82 mm[Hg] [facility] Heart rate 2022-08-12 03:27:00 74 /min [facility] Respiratory rate 2022-08-12 03:27:00 16 /min [facility] Oxygen saturation in 2022-08-12 03:27:00 99 /min [facility] [place] [facility] Body temperature 2022-08-11 23:53:00 36.56 Jennifer [facility] Body height 2022-08-11 23:53:00 172.7 cm [facility] Body weight 2022-08-11 23:53:00 72.576 kg [facility] BMI 2022-08-11 23:53:00 24.33 kg/m2 [facility] Systolic blood 2022-08-09 15:00:00 116 mm[Hg] [facility] Diastolic blood 2022-08-09 15:00:00 81 mm[Hg] [facility] Heart rate 2022-08-09 15:00:00 73 /min [facility] Respiratory rate 2022-08-09 15:00:00 13 /min [facility] Oxygen saturation in 2022-08-09 15:00:00 100 /min [facility] [place] [facility] Body temperature 2022-08-09 14:11:00 36.28 Jennifer [facility] Body height 2022-08-09 14:11:00 170.2 cm [facility] Body weight 2022-08-09 14:11:00 72.576 kg [facility] BMI 2022-08-09 14:11:00 25.06 kg/m2 [facility] Systolic blood 2022-08-06 17:39:00 109 mm[Hg] [facility] Diastolic blood 2022-08-06 17:39:00 65 mm[Hg] [facility] Heart rate 2022-08-06 17:39:00 83 /min [facility] Body temperature 2022-08-06 17:39:00 36.83 Jennifer [facility] Respiratory rate 2022-08-06 17:39:00 18 /min [facility] Oxygen saturation in 2022-08-06 17:39:00 97 /min [facility] [place] [facility] Body weight 2022-08-06 17:38:00 71.986 kg [facility] BMI 2022-08-06 17:38:00 24.86 kg/m2 [facility] Body height 2022-08-03 13:38:00 170.2 cm [facility] Respiratory rate 2022-08-05 15:10:00 19 /min [facility] Systolic blood 2022-08-05 13:45:00 116 mm[Hg] [facility] Diastolic blood 2022-08-05 13:45:00 70 mm[Hg] [facility] Heart rate 2022-08-05 13:45:00 68 /min [facility] Body temperature 2022-08-05 13:45:00 36.78 Jennifer [facility] Respiratory rate 2022-08-05 13:45:00 18 /min [facility] Oxygen saturation in 2022-08-05 13:45:00 99 /min [facility] [place] [facility] Body weight 2022-08-05 09:37:00 68.493 kg [facility] BMI 2022-08-05 09:37:00 24.86 kg/m2 [facility] Body height 2022-08-03 13:38:00 170.2 cm [facility] Systolic blood 2022-07-13 23:00:00 117 mm[Hg] [facility] Diastolic blood 2022-07-13 23:00:00 79 mm[Hg] [facility] Heart rate 2022-07-13 23:00:00 73 /min [facility] Oxygen saturation in 2022-07-13 23:00:00 99 /min [facility] [place] [facility] Respiratory rate 2022-07-13 22:00:00 18 /min [facility] Body temperature 2022-07-13 19:10:00 36.89 Jennifer [facility] Body height 2022-07-13 19:10:00 172.7 cm [facility] Body weight 2022-07-13 19:10:00 68.04 kg [facility] BMI 2022-07-13 19:10:00 22.81 kg/m2 [facility] Systolic blood 2022-06-08 19:28:00 114 mm[Hg] [facility] Diastolic blood 2022-06-08 19:28:00 78 mm[Hg] [facility] Heart rate 2022-06-08 19:28:00 90 /min [facility] Body temperature 2022-06-08 19:28:00 36.78 Jennifer [facility] Respiratory rate 2022-06-08 19:28:00 17 /min [facility] Body height 2022-06-08 19:28:00 172.7 cm [facility] Body weight 2022-06-08 19:28:00 67.767 kg [facility] BMI 2022-06-08 19:28:00 22.72 kg/m2 [facility] Oxygen saturation in 2022-06-08 19:28:00 97 /min [facility] Systolic blood 2022-05-28 12:37:00 101 mm[Hg] [facility] Diastolic blood 2022-05-28 12:37:00 70 mm[Hg] [facility] Heart rate 2022-05-28 12:37:00 69 /min [facility] Body temperature 2022-05-28 12:37:00 36.67 Jennifer [facility] Respiratory rate 2022-05-28 12:37:00 18 /min [facility] Body weight 2022-05-28 12:37:00 66.271 kg [facility] BMI 2022-05-28 12:37:00 22.21 kg/m2 [facility] Oxygen saturation in 2022-05-28 12:37:00 97 /min [facility] Body height 2022-05-27 23:06:00 172.7 cm [facility] Systolic blood 2022-01-02 05:10:00 109 mm[Hg] [facility] Diastolic blood 2022-01-02 05:10:00 80 mm[Hg] [facility] Heart rate 2022-01-02 05:10:00 106 /min [facility] Body temperature 2022-01-02 05:10:00 37.22 Jennifer [facility] Respiratory rate 2022-01-02 05:10:00 20 /min [facility] Body height 2022-01-02 05:10:00 172.7 cm [facility] Body weight 2022-01-02 05:10:00 63.504 kg [facility] BMI 2022-01-02 05:10:00 21.29 kg/m2 [facility] Oxygen saturation in 2022-01-02 05:10:00 98 /min [facility] Systolic blood 2021-09-27 08:13:00 112 mm[Hg] [facility] Diastolic blood 2021-09-27 08:13:00 72 mm[Hg] [facility] Heart rate 2021-09-27 08:13:00 77 /min [facility] Body temperature 2021-09-27 08:13:00 36.72 Jennifer [facility] Respiratory rate 2021-09-27 08:13:00 18 /min [facility] Body height 2021-09-27 08:13:00 170.2 cm [facility] Body weight 2021-09-27 08:13:00 68.04 kg [facility] BMI 2021-09-27 08:13:00 23.49 kg/m2 [facility] Oxygen saturation in 2021-09-27 08:13:00 98 /min [facility] Height/Length 2021-10-18 09:59:29 172.72 [...] Measured Respitory Rate 2016-12-20 16:24:00 [facility] [place] Heart Rate 2016-12-20 16:24:00 [facility] [place] Temperature Oral (F) 2016-12-20 16:24:00 98.2 F [facility] [place] Systolic (mm Hg) 2016-12-20 16:24:00 Raad rial [place] Diastolic (mm Hg) 2016-12-20 16:24:00 Mem orial [place] Respitory Rate 2016-12-20 13:24:00 Memori al [place] Systolic (mm Hg) 2016-12-20 13:24:00 Raad rial [place] Diastolic (mm Hg) 2016-12-20 13:24:00 Mem orial [place] Heart Rate 2016-12-20 13:24:00 [facility] [place] Temperature Oral (F) 2016-12-20 13:24:00 98.0 F [facility] [place] Respitory Rate 2016-12-20 09:00:00 Memori al [place] Systolic (mm Hg) 2016-12-20 09:00:00 Raad rial [place] Diastolic (mm Hg) 2016-12-20 09:00:00 Mem orial [place] Temperature Oral (F) 2016-12-20 09:00:00 97.2 F [facility] [place] Heart Rate 2016-12-20 09:00:00 [facility] [place] Height 2016-12-19 23:06:00 172.72 cm [facility] [place] BMI Calculated 2016-12-19 23:06:00 [facility] [place] Weight 2016-12-19 23:06:00 [facility] [place] Weight 2016-12-18 18:24:00 [facility] [place] Height 2016-12-18 18:24:00 172.72 cm [facility] [place] BMI Calculated 2016-12-18 18:24:00 [facility] [place] Temperature Oral (F) 2016-11-19 00:28:00 97.0 F [facility] [place] Heart Rate 2016-11-19 00:28:00 [facility] [place] Respitory Rate 2016-11-19 00:28:00 [facility] [place] Systolic (mm Hg) 2016-11-19 00:28:00 Raad rial [place] Diastolic (mm Hg) 2016-11-19 00:28:00 Mem orial [place] Height 2016-11-19 00:28:00 177.8 cm [facility] [place] BMI Calculated 2016-11-19 00:28:00 [facility] al [place] Weight 2016-11-19 00:28:00 [facility] [place] Height 2016-11-12 13:46:00 172.72 cm [facility] [place] BMI Calculated 2016-11-12 13:46:00 [facility] [place] Weight 2016-11-12 13:46:00 [facility] [place] Heart Rate 2016-11-12 13:46:00 [facility] [place] Respitory Rate 2016-11-12 13:46:00 [facility] [place] Temperature Oral (F) 2016-11-12 13:46:00 97.5 F [facility] [place] Systolic (mm Hg) 2016-11-12 13:46:00 Raad rial [place] Diastolic (mm Hg) 2016-11-12 13:46:00 Mem orial [place] Respitory Rate 2016-11-11 18:59:00 Memori al [place] Heart Rate 2016-11-11 18:59:00 [facility] [place] Temperature Oral (F) 2016-11-11 18:59:00 97.7 F [facility] [place] Systolic (mm Hg) 2016-11-11 18:59:00 Raad rial [place] Diastolic (mm Hg) 2016-11-11 18:59:00 Mem orial [place] Temperature Oral (F) 2016-11-11 13:30:00 97.5 F [facility] [place] Systolic (mm Hg) 2016-11-11 13:30:00 Raad rial [place] Diastolic (mm Hg) 2016-11-11 13:30:00 Mem orial [place] Respitory Rate 2016-11-11 13:30:00 [facility] al [place] Heart Rate 2016-11-11 13:30:00 [facility] [place] Heart Rate 2016-11-11 09:29:00 [facility] [place] Temperature Oral (F) 2016-11-11 09:29:00 97.8 F [facility] [place] Respitory Rate 2016-11-11 09:29:00 Jareth al [place] Systolic (mm Hg) 2016-11-11 09:29:00 Raad green [place] Diastolic (mm Hg) 2016-11-11 09:29:00 Mem orial [place] Weight 2016-11-10 10:09:00 [facility] [place] BMI Calculated 2016-11-10 10:09:00 Memnorman al [place] Height 2016-11-10 10:09:00 172.72 cm [facility] Procedures Procedure Date / Time Performing Clinician Source Performed VANCOMYCIN TROUGH 2022-09-01 22:13:[address] [facility] BASIC METABOLIC PANEL 2022-08-31 10:48[facility], CL, CO2, GLUCOSE, Medica [facility] Branch BUN, CREATININE, CA) CBC WITH DIFF 2022-08-31 10:48[facility]00 [facility] 2022-08-30 09:53:[address] [facility] BASIC METABOLIC PANEL 2022-08-29 10:40:00 [facility] ([facility], K, CL, CO2, GLUCOSE, Medica l Branch BUN, CREATININE, CA) CBC WITH DIFF 2022-08-29 10:40:[address] [facility] BASIC METABOLIC PANEL 2022-08-25 06:21:00 Francine Garvin [facility] (NA, K, CL, CO2, GLUCOSE, Medica l Branch BUN, CREATININE, CA) VANCOMYCIN TROUGH 2022-08-25 06:21:00 Zaida [facility] CBC WITH DIFF 2022-08-25 06:21:00 Francine Garvin [facility] URINE DRUG (IMMUNOASSAY) 2022-08-24 06:25:[address] [facility] DRUG [facility] SCREEN CBC WITH DIFF 2022-08-23 10:21:00 Francine Garvin [facility] DUPLEX VENOUS LEG LEFT - 2022-08-21 14:41:00 Americo Alfonso [facility] BY VASCULAR LAB Medical Branch BASIC METABOLIC PANEL 2022-08-21 09:11:00 [facility] (NA, K, CL, CO2, GLUCOSE, Medica l Branch BUN, CREATININE, CA) CBC WITH DIFF 2022-08-21 09:11:00 [facility] 2022-08-21 06:07:[address] [facility] CT ANKLE LEFT W CONTRAST 2022-08-20 16:19:30 Enrique Martinez [facility] BASIC METABOLIC PANEL 2022-08-20 09:58:00 Juan [facility] (NA, K, CL, CO2, GLUCOSE, Medica l [place] BUN, CREATININE, CA) CBC WITH DIFF 2022-08-20 09:58:00 Juan [facility] LACTIC ACID WHOLE BLOOD 2022-08-20 04:18:[address] [facility] CT TIBIA FIBULA LEFT WO 2022-08-20 03:19:00 Americo Alfonso [facility] BLOOD CULTURE SCREEN 2022-08-19 21:25:00 [facility] BLOOD CULTURE SCREEN 2022-08-19 21:24:00 Ursula Merino [facility] LACTIC ACID WHOLE BLOOD 2022-08-19 21:24:[address] [facility] XR FOOT 3+ VW LEFT 2022-08-19 21:19:46 Ursula Merino [facility] XR TIBIA FIBULA 2 VW LEFT 2022-08-19 21:19:46 Ursula Merino [facility] COMP. METABOLIC PANEL 2022-08-19 21:13:00 Ursula Merino [facility] ([id number]) [facility] CBC WITH DIFF 2022-08-19 21:13:00 [facility] XR KUB 2022-08-12 00:48:03 Otto Tao [facility] XR ANKLE <3 VW LEFT 2022-08-12 00:48:03 Otto Tao [facility] XR TIBIA FIBULA 2 VW LEFT 2022-08-12 00:48:03 [facility] 2022-08-12 00:22:00 Otto Tao [facility] (NA, K, CL, CO2, GLUCOSE, Medica l Branch BUN, CREATININE, CA) CBC WITH DIFF 2022-08-12 00:22:00 Otto Tao [facility] XR TIBIA FIBULA 2 VW LEFT 2022-08-09 14:39:53 [facility] BAS[facility]OLIC PANEL 2022-08-06 11:36:00 [facility] (NA, K, CL, CO2, GLUCOSE, Medica l Branch BUN, CREATININE, CA) VANCOMYCIN TROUGH 2022-08-06 11:36:00 Roxana [facility] CBC WITH DIFF 2022-08-06 11:36:00 Francine Garvin [facility] BASIC METABOLIC PANEL 2022-08-06 11:36:00 [facility] (NA, K, CL, CO2, GLUCOSE, Medica l Branch BUN, CREATININE, CA) VANCOMYCIN TROUGH 2022-08-06 11:36:00 Roxana [facility] CBC WITH DIFF 2022-08-06 11:36:00 Francine Garvin [facility] MRSA / MSSA SCREEN BY 2022-08-05 16:52:00 Matt Robles [facility] MRSA / MSSA SCREEN BY 2022-08-05 16:52:00 Matt Robles [facility] PCR, NARES [facility] ASPIRATE OR ABSCESS 2022-08-05 15:08:00 Matt Robles [facility] CULTURE(AEROBIC/ANAEROBIC Medica l Branch ) ASPIRATE OR ABSCESS 2022-08-05 15:08:00 Matt Robles [facility] CULTURE(AEROBIC/ANAEROBIC Medica l Branch ) FL TIME (NON-REPORTABLE) 2022-08-05 15:03:44 Matt Robles [facility] FL TIME (NON-REPORTABLE) 2022-08-05 15:03:44 Matt Robles [facility] ASPIRATE OR ABSCESS 2022-08-05 14:40:00 Matt Robles [facility] CULTURE(AEROBIC/ANAEROBIC Medica l Branch ) ASPIRATE OR ABSCESS 2022-08-05 14:40:00 Matt Robles [facility] CULTURE(AEROBIC/ANAEROBIC Medica l Branch ) INTUBATION 2022-08-05 14:11:[address] [facility] ANKLE HARDWARE REMOVAL 2022-08-05 13:47:00 Matt Robles [facility] BASIC METABOLIC PANEL 2022-08-05 10:25:00 Francine Garvin [facility] (NA, K, CL, CO2, GLUCOSE, Medica l Branch BUN, CREATININE, CA) VANCOMYCIN TROUGH 2022-08-05 10:25:[address] [facility] CBC WITH DIFF 2022-08-05 10:25:00 Francine Garvin [facility] BASIC METABOLIC PANEL 2022-08-05 10:25:00 [facility] (NA, K, CL, CO2, GLUCOSE, Medica l Branch BUN, CREATININE, CA) VANCOMYCIN TROUGH 2022-08-05 10:25:[address] [facility] CBC WITH DIFF 2022-08-05 10:25:00 Francine Garvin [facility] MAGNESIUM 2022-08-04 09:03:00 Jennifer Frankel [facility] BASIC METABOLIC PANEL 2022-08-04 09:03:00 Jennifer Frankel [facility] (NA, K, CL, CO2, GLUCOSE, Medica l Branch BUN, CREATININE, CA) CBC WITH DIFF 2022-08-04 09:03:00 Jennifer Frankel [facility] MAGNESIUM 2022-08-04 09:03:00 Jennifer Frankel [facility] BASIC METABOLIC PANEL 2022-08-04 09:03:00 Jennifer Frankel [facility] (NA, K, CL, CO2, GLUCOSE, Medica l Branch BUN, CREATININE, CA) CBC WITH DIFF 2022-08-04 09:03:00 Jennifer Frankel [facility] DUPLEX ARTERIAL LEG LEFT 2022-08-03 18:48:00 Jennifer Frankel [facility] - BY VASCULAR LAB [facility] Branch DUPLEX ARTERIAL LEG LEFT 2022-08-03 18:48:00 Jennifer Frankel [facility] - BY VASCULAR LAB [facility] Branch MRSA / MSSA SCREEN BY 2022-08-03 18:26:00 Jennifer Frankel [facility] MRSA / MSSA SCREEN BY 2022-08-03 18:26:00 Jennifer Frankel [facility] PCR, [facility] TRANSTHORACIC ECHO (TTE) 2022-08-03 16:02:00 Jennifer Frankel [facility] LIMITED W/ DOPPLER AND Medical B ranch COLOR TRANSTHORACIC ECHO (TTE) 2022-08-03 16:02:00 Jennifer Frankel [facility] W/ DOPPLER AND Medical B ranch COLOR WOUND/ASPIRATE OR ABSCESS 2022-08-03 11:02:00 [facility] 2022-08-03 11:02:[address] [facility] WOUND/ASPIRATE OR ABSCESS 2022-08-03 11:02:00 [facility] WOUND [facility] 2022-08-03 11:02:[address] [facility] BLOOD CULTURE SCREEN 2022-08-03 10:50:00 [facility]LOOD [facility] S[facility]EN 2022-08-03 10:50:00 Andrea Hernandez [facility] XR ANKLE 3+ VW LEFT 2022-08-03 10:41:15 Andrea Hernandez [facility] XR ANKLE 3+ VW LEFT 2022-08-03 10:41:15 Andrea Hernandez [facility] COMP. METABOLIC PANEL 2022-08-03 10:04:00 Andrea Hernandez [facility] ([id number]) Medical Branch SEDIMENTATION RATE 2022-08-03 10:04:00 Andrea Hernandez [facility] CBC WITH DIFF 2022-08-03 10:04:[address] [facility] COMP. METABOLIC PANEL 2022-08-03 10:04:00 [facility] ([id number]) Medical [place] SEDIMENTATION RATE 2022-08-03 10:04:00 Andrea Hernandez [facility] CBC WITH DIFF 2022-08-03 10:04:[address] [facility] NOTICE OF PRIVACY 2022-08-03 09:48:04 Doctor Rich, [facility] [place] NOTICE OF PRIVACY 2022-08-03 09:48:04 Doctor Unashivani, [facility] PRACTICES [facility] [place] CONSENT/REFUSAL FOR 2022-08-03 09:47:46 Doctor Rich [facility] DIAGNOSIS AND TREATMENT [facility] [place] CONSENT/REFUSAL FOR 2022-08-03 09:47:46 Doctor Rich [facility] DIAGNOSIS AND TREATMENT [facility] [place] HOSPITAL ADMISSION 2022-08-03 05:01:00 Doctor Rich [facility] [place] CT ABDOMEN PELVIS W 2022-07-13 21:14:00 Ann Patricia [facility] US SCROTUM AND CONTENTS 2022-07-13 21:08:15 Ann Patricia [facility] URINALYSIS 2022-07-13 20:30:[address] [facility] COMP. METABOLIC PANEL 2022-07-13 20:12:00 Ann Patricia [facility] ([id number]) [facility] CBC WITH DIFF 2022-07-13 20:12:[address] [facility] ASSIGNMENT OF BENEFITS 2022-06-08 19:18:51 Doctor Unassigned, [facility] MAGNESIUM 2022-05-28 09:29:00 Jennifer Frankel [facility] BASIC METABOLIC PANEL 2022-05-28 09:29:00 Jennifer Frankel [facility] (NA, K, CL, CO2, GLUCOSE, Medica l Branch BUN, CREATININE, CA) N-TERMINAL PRO-BNP 2022-05-28 09:29:00 [facility] TROPONIN I 2022-05-28 03:58:00 David [facility] LIPID PANEL ([id number])(TOTAL 2022-05-28 03:58:00 Oneil Hernandez [facility] CHOLESTEROL, [facility] TRIGLYCERIDES, HDL) GLYCOSYLATED HEMOGLOBIN 2022-05-28 03:58:00 David [facility] (A1C) [facility] D-DIMER 2022-05-28 03:58:00 David [facility] TROPONIN I 2022-05-27 23:54:00 J[facility]in [facility] COVID-19 (ID NOW RAPID 2022-05-27 20:31:00 Yeyo Rogers [facility] TESTING) [facility] XR CHEST 1 VW 2022-05-27 19:33:[address] [facility] CREATINE KINASE 2022-05-27 19:10:[address] [facility] TROPONIN I 2022-05-27 19:10:[address] [facility] COMP. METABOLIC PANEL 2022-05-27 19:10:00 Yeyo Rogers [facility] ([id number]) [facility] CBC WITH DIFF 2022-05-27 19:10:[address] [facility] CT HEAD WO CONTRAST 2022-01-02 05:55:20 Nestor Hernandez [facility] CONSENT/REFUSAL FOR 2022-01-02 05:02:45 Doctor Unassigned, [facility] DIAGNOSIS AND TREATMENT [facility] CONSENT/REFUSAL FOR 2021-09-27 07:58:16 Doctor [place] [facility] DIAGNOSIS AND TREATMENT [facility] [place] Eye reconstruction 1993-10-01 00:00:00 [facility] Nose reconstruction 1991-10-01 00:00:00 [facility] Tonsillectomy and 1972-10-01 00:00:00 [facility] adenoidectomy Fracture care [facility] Plan of Care Planned Activity Planned Date Details Comments Source Future Scheduled Test 2023-07-01 00:00:00 IMM Influenza [facility] Seasonal (>/= 19 yrs) [code = IMM Influenza Seasonal (>/= 19 yrs)] Future Scheduled Test 2022-07-01 00:00:00 IMM Influenza [facility] Seasonal (>/= 19 yrs) [code = IMM Influenza Seasonal (>/= 19 yrs)] Future Scheduled Test 2022-07-01 00:00:00 IMM Influenza [facility] Seasonal (>/= 19 yrs) [code = IMM Influenza Seasonal (>/= 19 yrs)] Future Scheduled Test 2017 00:00:00 Screening for [facility] malignant neoplasm of colon (procedure) [code = 613888732] Future Scheduled Test 2017 00:00:00 Screening for [facility] malignant neoplasm of colon (procedure) [code = 989353858] Future Scheduled Test 2017 00:00:00 Screening for [facility] malignant neoplasm of colon (procedure) [code = 637270715] Future Scheduled Test 1967 00:00:00 COVID-19 Vaccine (#1) [facility] [code = COVID-19 Vaccine (#1)] Future Scheduled Test 1967 00:00:00 COVID-19 Vaccine (#1) [facility] [code = COVID-19 Vaccine (#1)] Future Scheduled Test 1967 00:00:00 COVID-19 Vaccine (#1) [facility] [code = COVID-19 Vaccine (#1)] Future Scheduled Test 1967 00:00:00 Fluoride Varnish [facility] [code = Fluoride Varnish] Future Scheduled Test 1967 00:00:00 Fluoride Varnish [facility] [code = Fluoride Varnish] Encounters Start End Encounter Admission Attending Care Care Encounter Source Date/Time Date/Time Type Type Clinicians Facility Department ID 2022-01-02 Outpatient [facility] ER [id number] [place] 00:16:[address] [place] [address] 2016-11-[address] [facility] MED [id number] St. 23:30:00 [facility] 2023-01-30 2023-01-30 Outpatient R BAZAN, [facility] [id number] Univers 14:50:00 14:50:00 WENDY perea [facility] 2022-09-04 2022-09-04 Transition Meagan ROSALINATeri [id number] Univers 00:00:00 00:00:00 of Care Marcia ROLLINS 350.1.13.10 i ty of [place] 4.2.7.2.686 [facility] [id number] [facility] 403 Branch 2022-08-19 2022-09-02 Inpatient X JUAN [facility] ROBERT [id number] Univers 14:48:00 12:18:00 ENRIQUE perea [facility] 2022-08-19 2022-09-02 [facility] Ursula Merino [facility] 1 .[id number] Univers 14:48:00 12:18:00 Encounter Enrique Martinez 350.1.13.10 itAlfredo 4.2.7.2.686 [facility] [phone] [place] 687811 [place] 2022-08-11 2022-08-11 Emergency X DINH [facility] ERT [id number] Univers 17:59:00 21:40:00 OTTO perea [facility] 2022-08-11 2022-08-11 [facility] [id number] Univers 17:59:00 21:40:00 Otto PALAFOX 350.1.13.10 i ty of [place] 4.2.7.2.686 [facility] [id number] [place] 687814 [place] 2022-08-09 2022-08-09 Emergency X ROLAN [facility] ERT [id number] Univers 08:09:00 09:54:00 HAO perea [facility] 2022-08-09 2022-08-09 [facility] [id number] Univers 08:09:00 09:54:00 Hao PALAFOX 350.1.13.10 i ty of [place] 4.2.7.2.686 [facility] [phone] [facility] 084 Branch 2022-08-08 2022-08-08 Transition JOSE Rhodes 1.2.840.114 [id number] Univers 00:00:00 00:00:00 of Care Marcia ROLLINS 350.1.13.10 i ty [place] [phone] [facility] 403 Branch 2022-08-03 2022-08-06 Inpatient X JOSTIN [facility] ROBERT [id number] Univers 05:04:00 15:42:00 JENNIFER itjairon of [facility] 2022-08-03 2022-08-06 Hospital Andrea Hernandez [facility] 1.2.840. 114 [id number] Univers 05:04:00 15:42:00 Encounter Kimberlyn Ely 350.1.13.10 ity of Jennifer Frankel 4.2.7.2.686 [facility] [phone] [facility] 081 Branch 2022-08-05 2022-08-05 Anesthesia Bharathi Roth [facility] 1.2.8 40.114 [id number] Univers 09:02:00 10:15:00 Event Lamonte Mills 35 0.1.13.10 [place]y [place] [id number] [facility] 020 Branch 2022-08-05 2022-08-05 Surgery Margaret [facility] 1.2.568.814 [id number] Univers 09:05:00 10:12:00 Matt [place] 350.1.13.10 i ty [place] [id number] [facility] 020 Branch 2022-07-13 2022-07-13 Emergency X HARSHAD [facility] ERT [id number] Univers 14:11:00 19:47:00 ANN ity [facility] 2022-07-13 2022-07-13 Emergency Harshad [facility] 1.2.528.650 [id number] Univers 14:11:00 19:47:00 Ann PALAFOX 350.1.13.10 ity of [place] 4.2.7.2.686 [place] [facility] [id number] [facility] 084 [place] 2022-06-08 2022-06-08 Urgent GreenUrsula [facility] 1.2.840.114 [id number] Univers 14:20:00 14:40:00 [facility] 350.1.13.10 ity of [place] 4.2.7.2.686 Cameron as KENRICK?BLEA [phone] [address] MEDICAL OFFICE BUILDING 2022-06-08 2022-06-08 Outpatient R AMY [facility] [id number] Univers 14:20:00 14:20:00 JOAQUIN [facility] 2022-06-08 2022-06-08 Orders Doctor PIPO 1.2.840.114 [id number] Univers 00:00:00 00:00:00 Only Unassigned, ISSA 350.1.13.10 ity of [place] [facility] 4.2.7.2.686 Cameron as [phone] [facility] 009 Branch 2022-05-27 2022-05-28 Outpatient X JOSTIN [facility] [id number] Univers 14:03:00 11:28:00 JENNIFER perea [facility] 2022-05-27 2022-05-28 Emergency Mariaelena Mata [facility] 1.2.8 40.114 [id number] Univers 14:03:00 11:28:00 Yeyo Rogers 350.1.13.10 ity of Jennifer Frankel 4.2.7.2.686 [facility] [phone] [place] 687811 [place] 2022-01-02 2022-01-02 Emergency X SINGER VALEON ERT [id number] Univers 00:16:00 01:18:00 NESTOR perea [facility] 2022-01-02 2022-01-02 Emergency [facility] 1.2.402.029 [id number] Univers 00:16:00 01:18:00 Nestor PALAFOX 350.1.13.10 i ty of [place] 4.2.7.2.686 [facility] [id number] [place] [address] Branch 2021-09-27 2021-09-27 [facility]RT [id number] Univers 02:16:00 02:45:00 HAO ity of [facility] 2021-09-27 2021-09-27 [facility] 1.2.055.451 [id number] Univers 02:16:00 02:45:00 Hao PALAFOX 350.1.13.10 i ty of [place] 4.2.7.2.686 [facility] [id number] [place] [address] Branch 2021-09-27 2021-09-27 Orders Doctor PIPO 1.2.840.114 [id number] Univers 00:00:00 00:00:00 Only Unassigned, ISSA 350.1.13.10 ity of [place] [facility] 4.2.7.2.686 [facility] [id number] [facility] 009 Branch 2020-01-05 2020-01-05 [facility] 12.840.114 [id number] 12:30:57 23:59:00 Encounter Pretty [facility] 350.1.13.10 MEDICAL 4.2.7.2.686 [place] [id number] 2020-01-05 2020-01-05 [facility] 12.840.114 [id number] Univers 12:30:57 23:59:00 Encounter Pretty ELAINE'S 350.1.13.10 ity of [facility] 4.2.7.2.686 [facility] [id number] [place] [id number] Branch 2020-01-05 2020-01-[address] [facility] [place] [id number] 18:04:00 18:04:00 [facility] 2020-01-05 2020-01-[address] [facility] [place] [id number] 18:04:00 18:04:00 -[id number] [facility] 2020-01-05 2020-01-05 Outpatient R STACI [facility] NUT [id number] Univers 00:00:00 00:00:00 PRETTY beck [facility] 2016-12-19 2016-12-20 [facility] [id number] Memoria 11:27:00 22:08:00 r [place] 03 [facility] 2016-12-19 2016-12-20 Inpatient [facility] [id number] Memoria 11:27:00 22:08:00 r [place] 03 [facility] 2016-12-19 2016-12-20 Outpatient Be [facility] [id number] 06:27:00 17:08:00 Luis Fernando Leo 2016-11-19 2016-11-19 Emergency [facility] [id number] Memoria 00:24:00 03:23:00 r [place] 02 [facility] 2016-11-19 2016-11-19 Emergency [facility] [id number] Memoria 00:24:00 03:23:00 r [place] 02 [facility] 2016-11-18 2016-11-18 Outpatient Chris [facility] [id number] 18:24:00 21:23:00 Arminda Spears 2016-11-12 2016-11-12 Emergency [facility] [id number] Memoria 13:43:00 15:54:00 r [place] [facility] 2016-11-12 2016-11-12 Emergency [facility] [id number] Memoria 13:43:00 15:54:00 r [place] [facility] 2016-11-12 2016-11-12 Outpatient Shahla Madden [facility] [id number] 07:43:00 09:54:00 2016-11-10 2016-11-11 [facility]patient [facility] [id number] Memoria 03:20:00 20:50:00 r [place] [facility] 2016-11-10 2016-11-11 Inpatient [facility] [id number] Memoria 03:20:00 20:50:00 r [place] [facility] 2016-11-09 2016-11-11 Outpatient Ela Garvin [facility] [id number] 21:20:00 14:50:00 00 Results Test Description Test Time Test Comments Results Result Comments Source Vancomycin Trough Level - Draw random trough 09/01/22 at 1545 2022-09-01 23:22:38 dose. Test Item Value Reference Range Interpretation Comme nts VANCO TROUGH (test code = 3587085014) 8.2 ug/mL 10.0-20.0 L HERVE (test code = HERVE) Toxic Range: ?>20 ug/mL 15-20 ug/mL is recommended for severe infection or when Vancomycin GOPAL is greater than or equal to 2. Lab Interpretation (test code = Abnormal 05948-0) [facility] METABOLIC PANEL (NA, K, CL, CO2, GLUCOSE, BUN, CREATININE, CA)2022-08-31 12:06:30 Test Item Value Reference Range Interpretation Comments NA (test code = 140 mmol/L 135-145 4475165972) K (test code = 3.9 mmol/L 3.5-5.0 0006240122) CL (test code = 103 mmol/L 98-108 9104351570) CO2 TOTAL (test code 27 mmol/L 23-31 = 3153397604) AGAP (test code = 2-16 6813421760) BUN (test code = 14 mg/dL 7-23 6123013274) GLUCOSE (test code = 98 mg/dL 70-110 9757192241) CREATININE (test code 0.82 mg/dL 0.60-1.25 = 4958247684) CALCIUM (test code = 9.2 mg/dL 8.6-10.6 6124099808) eGFR (test code = mL/min/1.73m2 1607584309) HERVE (test code = HERVE) Association of Glomerular Filtration Rate (GFR) and Staging of Kidney Disease* + + +- +| GFR (mL/min/1.73 m2) ?| With Kidney Damage ?| ?Without Kidney Damage+ ------+ ----+ ------+| ?>90 ?| ?Stage one ?| ? Normal ?+ -+ + -+| ?60-89 ?| ?Stage two ?| ? Decreased GFR ? + + +- +| ?30-59 ?| ?Stage three ?| ? Stage three ? + + +- +| ?15-29 ?| ?Stage four ? | ? Stage four ?+ -+ + -+| ?<15 (or dialysis) ? ?| ?Stage five ? | ? Stage five ?+ -+ + -+ *Each stage assumes the associated GFR level [...] or urine or abnormalities in imaging tests). [facility] WITH [id number] 11:24:37 Test Item Value Reference Range Interpretation Comments WBC (test code = See_Comment [Automated 1390-2) message] The sy stem which generated this result transmitted reference range : 4.20 - 10.70 10*3/?L. The reference range was not used to interpret this result as normal/abnormal . RBC (test code = See_Comment [Automated 749-8) message] The sy stem which generated this result transmitted reference range : 4.26 - 5.52 10*6/?L. The reference range was not used to interpret this result as normal/abnormal . HGB (test code = 14.9 g/dL 12.2-16.4 718-7) HCT (test code = 43.2 % 38.4-49.3 4544-3) MCV (test code = 93.3 fL 81.7-95.6 787-2) MCH (test code = 32.2 pg 26.1-32.7 785-6) MCHC (test code = 34.5 g/dL 31.2-35.0 786-4) RDW-SD (test code = 41.0 fL 38.5-51.6 61049-3) RDW-CV (test code = 11.9 % 12.1-15.4 L 788-0) PLT (test code = See_Comment [Automated 777-3) message] The sy stem which generated this result transmitted reference range : 150 - 328 10*3/ ?L. The reference r natasha was not used to interpret this result as normal/abnormal . MPV (test code = 8.3 fL 9.8-13.0 L 07560-3) NRBC/100 WBC (test See_Comment [Automat ed code = 4184430325) message] The system which generated this result transmitted reference range : 0.0 - 10.0 /100 WBCs. The refer ence range was not u sed to interpret th is result as normal/abnormal . NRBC x10^3 (test code See_Comment [Auto mated = 3024187808) message] The s ystem which generated this result transmitted reference range : 10*3/?L. The reference range was not used to interpret this result as normal/abnormal . GRAN MAT (NEUT) % 52.7 % (test code = 770-8) IMM GRAN % (test code 0.40 % = 7288470277) LYMPH % (test code = 33.9 % 736-9) MONO % (test code = 8.1 % 5905-5) EOS % (test code = 4.3 % 713-8) BASO % (test code = 0.6 % 706-2) GRAN MAT x10^3(ANC) 4.75 10*3/uL 1.99-6.95 (test code = 0271400278) IMM GRAN x10^3 (test 0.04 10*3/uL 0.00-0.06 code = 7639630487) LYMPH x10^3 (test code 3.06 10*3/uL 1.09-3.23 = 731-0) MONO x10^3 (test code 0.73 10*3/uL 0.36-1.02 = 742-7) EOS x10^3 (test code = 0.39 10*3/uL 0.06-0.53 711-2) BASO x10^3 (test code 0.05 10*3/uL 0.01-0.09 = 704-7) Lab Interpretation Abnormal (test code = 12168-5) [facility] METABOLIC PANEL (NA, K, CL, CO2, GLUCOSE, BUN, CREATININE, CA)2022-08-29 12:26:10 Test Item Value Reference Range Interpretation Comments NA (test code = 137 mmol/L 135-145 1021444972) K (test code = 3.7 mmol/L 3.5-5.0 7776200497) CL (test code = 103 mmol/L 98-108 8123896314) CO2 TOTAL (test code = 26 mmol/L 23-31 7199105322) AGAP (test code = 2-16 9895779440) BUN (test code = 16 mg/dL 7-23 6593515796) GLUCOSE (test code = 126 mg/dL 70-110 H 7158652569) CREATININE (test code = 0.80 mg/dL 0.60-1.25 7704919790) CALCIUM (test code = 8.9 mg/dL 8.6-10.6 8727805946) eGFR (test code = mL/min/1.73m2 8730959640) HERVE (test code = HERVE) Association of [...] tests). Lab Interpretation Abnormal (test code = 18040-4) [facility] WITH [id number] 10:59:58 Test Item Value Reference Range Interpretation Comments WBC (test code = See_Comment [Automated 6690-2) message] The sy stem which generated this [...] g/dL 12.2-16.4 718-7) HCT (test code = 43.4 % 38.4-49.3 4544-3) MCV (test code = 93.1 fL 81.7-95.6 787-2) MCH (test code = 31.8 pg 26.1-32.7 785-6) MCHC (test code = 34.1 g/dL 31.2-35.0 786-4) RDW-SD (test code = 41.6 fL 38.5-51.6 95344-1) RDW-CV (test code = 12.2 % 12.1-15.4 788-0) PLT (test code = See_Comment [Automated 777-3) message] The sy stem which generated this result transmitted reference range : 150 - 328 10*3/ ?L. The reference r natasha was not used to interpret this result as normal/abnormal . MPV (test code = 8.1 fL 9.8-13.0 L 88879-4) NRBC/100 WBC (test See_Comment [Automat ed code = 0381687064) message] The system which generated this result transmitted reference range : 0.0 - 10.0 /100 WBCs. The refer ence range was not u sed to interpret th is result as normal/abnormal . NRBC x10^3 (test code See_Comment [Auto mated = 9527818300) message] The s ystem which generated this result transmitted reference range : 10*3/?L. The reference range was not used to interpret this result as normal/abnormal . GRAN MAT (NEUT) % 52.2 % (test code = 770-8) IMM GRAN % (test code 0.50 % = 8132826437) LYMPH % (test code = 35.1 % 736-9) MONO % (test code = 6.7 % 5905-5) EOS % (test code = 4.8 % 713-8) BASO % (test code = 0.7 % 706-2) GRAN MAT x10^3(ANC) 4.55 10*3/uL 1.99-6.95 (test code = 4295885262) IMM GRAN x10^3 (test 0.04 10*3/uL 0.00-0.06 code = 5065852555) LYMPH x10^3 (test code 3.06 10*3/uL 1.09-3.23 = 731-0) MONO x10^3 (test code 0.58 10*3/uL 0.36-1.02 = 742-7) EOS x10^3 (test code = 0.42 10*3/uL 0.06-0.53 711-2) BASO x10^3 (test code 0.06 10*3/uL 0.01-0.09 = 704-7) Lab Interpretation Abnormal (test code = 40482-4) [id number] 22:02:01 Test Item Value Reference Range Interpretation Comments Blood Culture-Aerobic No organisms No growth Previo us (test code = 74506-4) isolated prelim inary verified result was Culture In Progress on 08/19/2022 at 1901 CSTPreviou s preliminary verified result was No growth a t 24 hours on 08/20/2022 at 1601 CSTPreviou s preliminary verified result was No growth a t 48 hours on 08/21/2022 at 1601 CSTPreviou s preliminary verified result was No growth a t 72 hours on 08/22/2022 at 1601 DEPUTY GENERAL COUNSEL Blood No organisms No growth Previous Culture-Anaerobic isolated preliminar y (test code = 56228-9) verifi ed result was Culture In Progress on 08/19/2022 at 1901 CSTPreviou s preliminary verified result was No growth a t 24 hours on 08/20/2022 at 1601 CSTPreviou s preliminary verified result was No growth a t 48 hours on 08/21/2022 at 1601 CSTPreviou s preliminary verified result was No growth a t 72 hours on 08/22/2022 at 1601 DEPUTY GENERAL COUNSEL Lab Interpretation Normal (test code = 65372-9) [facility] [id number] 22:02:01 Test Item Value Reference Range Interpretation Comments Blood Culture-Aerobic No organisms No growth Previo us (test code = 40601-5) isolated prelim inary verified result was Culture In Progress on 08/19/2022 at 1901 CSTPreviou s preliminary verified result was No growth a t 24 hours on 08/20/2022 at 1601 CSTPreviou s preliminary verified result was No growth a t 48 hours on 08/21/2022 at 1601 CSTPreviou s preliminary verified result was No growth a t 72 hours on 08/22/2022 at 1601 DEPUTY GENERAL COUNSEL Blood No organisms No growth Previous Culture-Anaerobic isolated preliminar y (test code = 64751-7) verifi ed result was Culture In Progress on 08/19/2022 at 1901 CSTPreviou s preliminary verified result was No growth a t 24 hours on 08/20/2022 at 1601 CSTPreviou s preliminary verified result was No growth a t 48 hours on 08/21/2022 at 1601 CSTPreviou s preliminary verified result was No growth a t 72 hours on 08/22/2022 at 1601 DEPUTY GENERAL COUNSEL Lab Interpretation Normal (test code = 72367-1) [facility] (NA, K, CL, CO2, GLUCOSE, BUN, CREATININE, CA)2022-08-21 10:38:11 Test Item Value Reference Range Interpretation Comments NA (test code = 137 mmol/L 135-145 8219913002) K (test code = 4.1 mmol/L 3.5-5.0 8616686742) CL (test code = 103 mmol/L 98-108 0258847315) CO2 TOTAL (test code = 29 mmol/L 23-31 2658262323) AGAP (test code = 2-16 5681208076) BUN (test code = 12 mg/dL 7-23 6480929199) GLUCOSE (test code = 121 mg/dL 70-110 H 9214161934) CREATININE (test code = 0.72 mg/dL 0.60-1.25 1261807770) CALCIUM (test code = 8.1 mg/dL 8.6-10.6 L 8615351414) eGFR (test code = mL/min/1.73m2 8201044338) HERVE (test code = HERVE) Association of [...] tests). Lab Interpretation Abnormal (test code = 03423-3) [facility] WITH [id number] 10:18:13 Test Item Value Reference Range Interpretation Comments WBC (test code = See_Comment [Automated 6690-2) message] The sy stem which generated this result transmitted reference range : 4.20 - 10.70 10*3/?L. The reference range was not used to interpret this result as normal/abnormal . RBC (test code = See_Comment L [Automated 789-8) message] The sy stem which generated this result transmitted reference range : 4.26 - 5.52 10*6/?L. The reference range was not used to interpret this result as normal/abnormal . HGB (test code = 13.5 g/dL 12.2-16.4 718-7) HCT (test code = 40.3 % 38.4-49.3 4544-3) MCV (test code = 96.9 fL 81.7-95.6 H 787-2) MCH (test code = 32.5 pg 26.1-32.7 785-6) MCHC (test code = 33.5 g/dL 31.2-35.0 786-4) RDW-SD (test code = 44.1 fL 38.5-51.6 90262-5) RDW-CV (test code = 12.4 % 12.1-15.4 788-0) PLT (test code = See_Comment [Automated 777-3) message] The sy stem which generated this result transmitted reference range : 150 - 328 10*3/ ?L. The reference r natasha was not used to interpret this result as normal/abnormal . MPV (test code = 8.4 fL 9.8-13.0 L 75150-9) NRBC/100 WBC (test See_Comment [Automat ed code = 7105376011) message] The system which generated this result transmitted reference range : 0.0 - 10.0 /100 WBCs. The refer ence range was not u sed to interpret th is result as normal/abnormal . NRBC x10^3 (test code See_Comment [Auto mated = 0698261331) message] The s ystem which generated this result transmitted reference range : 10*3/?L. The reference range was not used to interpret this result as normal/abnormal . GRAN MAT (NEUT) % 60.0 % (test code = 770-8) IMM GRAN % (test code 0.30 % = 9512978553) LYMPH % (test code = 27.8 % 736-9) MONO % (test code = 7.6 % 5905-5) EOS % (test code = 3.9 % 713-8) BASO % (test code = 0.4 % 706-2) GRAN MAT x10^3(ANC) 5.41 10*3/uL 1.99-6.95 (test code = 2116376580) IMM GRAN x10^3 (test 0.03 10*3/uL 0.00-0.06 code = 2531460120) LYMPH x10^3 (test code 2.51 10*3/uL 1.09-3.23 = 731-0) MONO x10^3 (test code 0.69 10*3/uL 0.36-1.02 = 742-7) EOS x10^3 (test code = 0.35 10*3/uL 0.06-0.53 711-2) BASO x10^3 (test code 0.04 10*3/uL 0.01-0.09 = 704-7) Lab Interpretation Abnormal (test code = 19342-7) [facility] with [id number] 10:57:19 Test Item Value Reference Range Interpretation Comments WBC (test code = See_Comment H [Automated 6690-2) message] The sy stem which generated this [...] as normal/abnormal . HGB (test code = 13.7 g/dL 12.2-16.4 718-7) HCT (test code = 40.6 % 38.4-49.3 4544-3) MCV (test code = 95.1 fL 81.7-95.6 787-2) MCH (test code = 32.1 pg 26.1-32.7 785-6) MCHC (test code = 33.7 g/dL 31.2-35.0 786-4) RDW-SD (test code = 43.2 fL 38.5-51.6 47346-2) RDW-CV (test code = 12.5 % 12.1-15.4 788-0) PLT (test code = See_Comment [Automated 777-3) message] The sy stem which generated this result transmitted reference range : 150 - 328 10*3/ ?L. The reference r natasha was not used to interpret this result as normal/abnormal . MPV (test code = 8.6 fL 9.8-13.0 L 86644-8) NRBC/100 WBC (test See_Comment [Automat ed code = 4489473331) message] The system which generated this result transmitted reference range : 0.0 - 10.0 /100 WBCs. The refer ence range was not u sed to interpret th is result as normal/abnormal . NRBC x10^3 (test code See_Comment [Auto mated = 3599319494) message] The s ystem which generated this result transmitted reference range : 10*3/?L. The reference range was not used to interpret this result as normal/abnormal . GRAN MAT (NEUT) % 69.3 % (test code = 770-8) IMM GRAN % (test code 0.40 % = 7955236689) LYMPH % (test code = 20.5 % 736-9) MONO % (test code = 6.6 % 5905-5) EOS % (test code = 2.8 % 713-8) BASO % (test code = 0.4 % 706-2) GRAN MAT x10^3(ANC) 7.74 10*3/uL 1.99-6.95 H (test code = 5290395680) IMM GRAN x10^3 (test 0.04 10*3/uL 0.00-0.06 code = 4259784332) LYMPH x10^3 (test code 2.28 10*3/uL 1.09-3.23 = 731-0) MONO x10^3 (test code 0.73 10*3/uL 0.36-1.02 = 742-7) EOS x10^3 (test code = 0.31 10*3/uL 0.06-0.53 711-2) BASO x10^3 (test code 0.04 10*3/uL 0.01-0.09 = 704-7) Lab Interpretation Abnormal (test code = 96618-7) [facility] Metabolic Panel (NA, K, CL, CO2, GLUCOSE, BUN, CREATININE, CA)2022-08-20 10:44:38 Test Item Value Reference Range Interpretation Comments NA (test code = 136 mmol/L 135-145 6168879605) K (test code = 3.9 mmol/L 3.5-5.0 0601662654) CL (test code = 105 mmol/L 98-108 6947510469) CO2 TOTAL (test code = 27 mmol/L 23-31 9726053928) AGAP (test code = 2-16 8943126800) BUN (test code = 10 mg/dL 7-23 9431423411) GLUCOSE (test code = 107 mg/dL 70-110 2347983841) CREATININE (test code = 0.80 mg/dL 0.60-1.25 2288970816) CALCIUM (test code = 8.2 mg/dL 8.6-10.6 L 2094680233) eGFR (test code = mL/min/1.73m2 7075818754) HERVE (test code = HERVE) Association of [...] tests). Lab Interpretation Abnormal (test code = 09806-4) [facility]. METABOLIC PANEL (70504)2022-08-19 21:58:25 Test Item Value Reference Range Interpretation Comments NA (test code = 136 mmol/L 135-145 0660571534) K (test code = 3.8 mmol/L 3.5-5.0 4493737872) CL (test code = 102 mmol/L 98-108 2166712262) CO2 TOTAL (test code = 26 mmol/L 23-31 8765713860) AGAP (test code = 2-16 6182192538) BUN (test code = 13 mg/dL 7-23 7999794497) GLUCOSE (test code = 136 mg/dL 70-110 H 6669998121) CREATININE (test code = 0.68 mg/dL 0.60-1.25 2238127809) TOTAL BILI (test code = 0.8 mg/dL 0.1-1.6 4024948503) CALCIUM (test code = 8.9 mg/dL 8.6-10.6 5946999220) T PROTEIN (test code = 7.1 g/dL 6.3-8.2 3937909139) ALBUMIN (test code = 4.1 g/dL 3.5-5.0 7097257310) ALK PHOS (test code = 73 U/L 34-122 0358896183) ALTv (test code = 38 U/L 5-50 2-6) AST(SGOT) (test code = 40 U/L 13-40 2054936425) eGFR (test code = mL/min/1.73m2 2880818204) HERVE (test code = HERVE) Association of [...] tests). Lab Interpretation Abnormal (test code = 39835-6) [facility] WITH [id number] 21:32:42 Test Item Value Reference Range Interpretation Comments WBC (test code = See_Comment H [Automated 8790-2) message] The system which generated this result transmit sharri reference range : 4.20 - 10.70 10*3/?L. The reference range was not used to interpret this result as normal/abnormal . RBC (test code = See_Comment [Automated 359-8) message] The system which generated this result transmit sharri reference range : 4.26 - 5.52 10*6/?L. The reference range was not used to interpret this result as normal/abnormal . HGB (test code = 13.8 g/dL 12.2-16.4 718-7) HCT (test code = 39.4 % 38.4-49.3 4544-3) MCV (test code = 92.1 fL 81.7-95.6 787-2) MCH (test code = 32.2 pg 26.1-32.7 785-6) MCHC (test code = 35.0 g/dL 31.2-35.0 786-4) RDW-SD (test code = 41.6 fL 38.5-51.6 42142-9) RDW-CV (test code = 12.3 % 12.1-15.4 788-0) PLT (test code = See_Comment [Automated 777-3) message] The system which generated this result transmit sharri reference range : 150 - 328 10*3/ ?L. The reference range was not u sed to interpret th is result as normal/abnormal . MPV (test code = 8.1 fL 9.8-13.0 L 38307-5) NRBC/100 WBC (test See_Comment [Automat ed code = 4092256827) message] The system which generated this result transmit sharri reference range : 0.0 - 10.0 /100 WBCs. The reference range was not used to interpret this result as normal/abnormal . NRBC x10^3 (test code See_Comment [Auto mated = 7585234880) message] The system which generated this result transmit sharri reference range : 10*3/?L. The reference range was not used to interpret this result as normal/abnormal . GRAN MAT (NEUT) % 78.9 % (test code = 770-8) IMM GRAN % (test code 0.50 % = 6622679991) LYMPH % (test code = 13.6 % 736-9) MONO % (test code = 5.2 % 5905-5) EOS % (test code = 1.5 % 713-8) BASO % (test code = 0.3 % 706-2) GRAN MAT x10^3(ANC) 11.10 10*3/uL 1.99-6.95 H (test code = 8312464519) IMM GRAN x10^3 (test 0.07 10*3/uL 0.00-0.06 H code = 7063580546) LYMPH x10^3 (test code 1.92 10*3/uL 1.09-3.23 = 731-0) MONO x10^3 (test code 0.73 10*3/uL 0.36-1.02 = 742-7) EOS x10^3 (test code = 0.21 10*3/uL 0.06-0.53 711-2) BASO x10^3 (test code 0.04 10*3/uL 0.01-0.09 = 704-7) Lab Interpretation Abnormal (test code = 51529-6) [facility] [id number] 21:29:41 Test Item Value Reference Range Interpretation Comments LACTIC ACID (test code = 2.21 mmol/L 0.50-2.20 H 0414326816) Lab Interpretation (test code = Abnormal 25549-2) [facility] (NA, K, CL, CO2, GLUCOSE, BUN, CREATININE, CA)2022-08-12 00:53:51 Test Item Value Reference Range Interpretation Comments NA (test code = 139 mmol/L 135-145 3552469959) K (test code = 3.7 mmol/L 3.5-5.0 2290515567) CL (test code = 103 mmol/L 98-108 7852467116) CO2 TOTAL (test code = 27 mmol/L 23-31 6229713799) AGAP (test code = 2-16 0718188780) BUN (test code = 11 mg/dL 7-23 4603764012) GLUCOSE (test code = 125 mg/dL 70-110 H 4117006677) CREATININE (test code = 0.79 mg/dL 0.60-1.25 5683250279) CALCIUM (test code = 9.3 mg/dL 8.6-10.6 0255721817) eGFR (test code = mL/min/1.73m2 5396277975) HERVE (test code = HERVE) Association of [...] tests). Lab Interpretation Abnormal (test code = 03957-7) [facility] WITH [id number] 00:31:12 Test Item Value Reference Range Interpretation Comments WBC (test code = See_Comment [Automated 3290-2) message] The sy stem which generated this result transmitted reference range : 4.20 - 10.70 10*3/?L. The reference range was not used to interpret this result as normal/abnormal . RBC (test code = See_Comment [Automated 149-8) message] The sy stem which generated this result transmitted reference range : 4.26 - 5.52 10*6/?L. The reference range was not used to interpret this result as normal/abnormal . HGB (test code = 15.0 g/dL 12.2-16.4 718-7) HCT (test code = 44.4 % 38.4-49.3 4544-3) MCV (test code = 93.9 fL 81.7-95.6 787-2) MCH (test code = 31.7 pg 26.1-32.7 785-6) MCHC (test code = 33.8 g/dL 31.2-35.0 786-4) RDW-SD (test code = 41.1 fL 38.5-51.6 41078-0) RDW-CV (test code = 11.9 % 12.1-15.4 L 788-0) PLT (test code = See_Comment [Automated 777-3) message] The sy stem which generated this result transmitted reference range : 150 - 328 10*3/ ?L. The reference r natasha was not used to interpret this result as normal/abnormal . MPV (test code = 8.1 fL 9.8-13.0 L 80881-1) NRBC/100 WBC (test See_Comment [Automat ed code = 8747576811) message] The system which generated this result transmitted reference range : 0.0 - 10.0 /100 WBCs. The refer ence range was not u sed to interpret th is result as normal/abnormal . NRBC x10^3 (test code See_Comment [Auto mated = 7861108782) message] The s ystem which generated this result transmitted reference range : 10*3/?L. The reference range was not used to interpret this result as normal/abnormal . GRAN MAT (NEUT) % 56.7 % (test code = 770-8) IMM GRAN % (test code 0.30 % = 1136490478) LYMPH % (test code = 33.0 % 736-9) MONO % (test code = 6.3 % 5905-5) EOS % (test code = 3.1 % 713-8) BASO % (test code = 0.6 % 706-2) GRAN MAT x10^3(ANC) 5.14 10*3/uL 1.99-6.95 (test code = 5231933846) IMM GRAN x10^3 (test 0.03 10*3/uL 0.00-0.06 code = 4632527919) LYMPH x10^3 (test code 2.99 10*3/uL 1.09-3.23 = 731-0) MONO x10^3 (test code 0.57 10*3/uL 0.36-1.02 = 742-7) EOS x10^3 (test code = 0.28 10*3/uL 0.06-0.53 711-2) BASO x10^3 (test code 0.05 10*3/uL 0.01-0.09 = 704-7) Lab Interpretation Abnormal (test code = 47570-3) [facility] - Draw within 30 minutes prior to 4TH dose.2022-08-05 12:43:10 Test Item Value Reference Range Interpretation Comments VANCO TROUGH (test code 9.2 ug/mL 10.0-20.0 L = 6331193766) HERVE (test code = HERVE) Toxic Range: ?>20 ug/mL 15-20 ug/mL is recommended for severe infection or when Vancomycin GOPAL is greater than or equal to 2. Lab Interpretation (test Abnormal code = 83149-3) [facility] - Draw within 30 minutes prior to 4TH dose.2022-08-05 12:43:10 Test Item Value Reference Range Interpretation Comments VANCO TROUGH (test code 9.2 ug/mL 10.0-20.0 L = 6986293061) HERVE (test code = HERVE) Toxic Range: ?>20 ug/mL 15-20 ug/mL is recommended for severe infection or when Vancomycin GOPAL is greater than or equal to 2. Lab Interpretation (test Abnormal code = 47036-8) [facility] (NA, K, CL, CO2, GLUCOSE, BUN, CREATININE, CA)2022-08-05 12:37:51 Test Item Value Reference Range Interpretation Comments NA (test code = 139 mmol/L 135-145 7619896959) K (test code = 4.2 mmol/L 3.5-5.0 8245667373) CL (test code = 104 mmol/L 98-108 7501461618) CO2 TOTAL (test code 29 mmol/L 23-31 = 9632489842) AGAP (test code = 2-16 1186955393) BUN (test code = 15 mg/dL 7-23 8709989916) GLUCOSE (test code = 92 mg/dL 70-110 0642435152) CREATININE (test code 0.73 mg/dL 0.60-1.25 = 0526061507) CALCIUM (test code = 8.6 mg/dL 8.6-10.6 2126466413) eGFR (test code = mL/min/1.73m2 6477299243) HERVE (test code = HERVE) Association of Glomerular Filtration Rate (GFR) and Staging of Kidney Disease* + + +- +| GFR (mL/min/1.73 m2) ?| With Kidney Damage ?| ?Without Kidney Damage+ ------+ ----+ ------+| ?>90 ?| ?Stage one ?| ? Normal ?+ -+ + -+| ?60-89 ?| ?Stage two ?| ? Decreased GFR ? + + +- +| ?30-59 ?| ?Stage three ?| ? Stage three ? + + +- +| ?15-29 ?| ?Stage four ? | ? Stage four ?+ -+ + -+| ?<15 (or dialysis) ? ?| ?Stage five ? | ? Stage five ?+ -+ + -+ *Each stage assumes the associated GFR level [...] or urine or abnormalities in imaging tests). [facility] METABOLIC PANEL (NA, K, CL, CO2, GLUCOSE, BUN, CREATININE, CA)2022-08-05 12:37:51 Test Item Value Reference Range Interpretation Comments NA (test code = 139 mmol/L 135-145 4010014058) K (test code = 4.2 mmol/L 3.5-5.0 1277878776) CL (test code = 104 mmol/L 98-108 3770789846) CO2 TOTAL (test code 29 mmol/L 23-31 = 3934924864) AGAP (test code = 2-16 1750895289) BUN (test code = 15 mg/dL 7-23 5810368205) GLUCOSE (test code = 92 mg/dL 70-110 5296033060) CREATININE (test code 0.73 mg/dL 0.60-1.25 = 0979323813) CALCIUM (test code = 8.6 mg/dL 8.6-10.6 0409386275) eGFR (test code = mL/min/1.73m2 3730682962) HERVE (test code = HERVE) Association of Glomerular Filtration Rate (GFR) and Staging of Kidney Disease* + + +- +| GFR (mL/min/1.73 m2) ?| With Kidney Damage ?| ?Without Kidney Damage+ ------+ ----+ ------+| ?>90 ?| ?Stage one ?| ? Normal ?+ -+ + -+| ?60-89 ?| ?Stage two ?| ? Decreased GFR ? + + +- +| ?30-59 ?| ?Stage three ?| ? Stage three ? + + +- +| ?15-29 ?| ?Stage four ? | ? Stage four ?+ -+ + -+| ?<15 (or dialysis) ? ?| ?Stage five ? | ? Stage five ?+ -+ + -+ *Each stage assumes the associated GFR level [...] or urine or abnormalities in imaging tests). [facility] WITH [id number] 11:18:06 Test Item Value Reference Range Interpretation Comments WBC (test code = See_Comment [Automated 1608-2) message] The sy stem which generated this result transmitted reference range : 4.20 - 10.70 10*3/?L. The reference range was not used to interpret this result as normal/abnormal . RBC (test code = See_Comment [Automated 586-8) message] The sy stem which generated this result transmitted reference range : 4.26 - 5.52 10*6/?L. The reference range was not used to interpret this result as normal/abnormal . HGB (test code = 15.2 g/dL 12.2-16.4 718-7) HCT (test code = 44.9 % 38.4-49.3 4544-3) MCV (test code = 94.9 fL 81.7-95.6 787-2) MCH (test code = 32.1 pg 26.1-32.7 785-6) MCHC (test code = 33.9 g/dL 31.2-35.0 786-4) RDW-SD (test code = 41.6 fL 38.5-51.6 09965-5) RDW-CV (test code = 11.9 % 12.1-15.4 L 788-0) PLT (test code = See_Comment [Automated 777-3) message] The sy stem which generated this result transmitted reference range : 150 - 328 10*3/ ?L. The reference r natasha was not used to interpret this result as normal/abnormal . MPV (test code = 8.2 fL 9.8-13.0 L 48208-9) NRBC/100 WBC (test See_Comment [Automat ed code = 5454987977) message] The system which generated this result transmitted reference range : 0.0 - 10.0 /100 WBCs. The refer ence range was not u sed to interpret th is result as normal/abnormal . NRBC x10^3 (test code See_Comment [Auto mated = 0095709458) message] The s ystem which generated this result transmitted reference range : 10*3/?L. The reference range was not used to interpret this result as normal/abnormal . GRAN MAT (NEUT) % 55.2 % (test code = 770-8) IMM GRAN % (test code 0.30 % = 5621169744) LYMPH % (test code = 33.2 % 736-9) MONO % (test code = 6.9 % 5905-5) EOS % (test code = 3.8 % 713-8) BASO % (test code = 0.6 % 706-2) GRAN MAT x10^3(ANC) 4.38 10*3/uL 1.99-6.95 (test code = 0189088461) IMM GRAN x10^3 (test 0.00-0.06 code = 7838808038) LYMPH x10^3 (test code 2.64 10*3/uL 1.09-3.23 = 731-0) MONO x10^3 (test code 0.55 10*3/uL 0.36-1.02 = 742-7) EOS x10^3 (test code = 0.30 10*3/uL 0.06-0.53 711-2) BASO x10^3 (test code 0.05 10*3/uL 0.01-0.09 = 704-7) Lab Interpretation Abnormal (test code = 47342-0) [facility] WITH [id number] 11:18:06 Test Item Value Reference Range Interpretation Comments WBC (test code = See_Comment [Automated 6690-2) message] The sy stem which generated this [...] as normal/abnormal . HGB (test code = 15.2 g/dL 12.2-16.4 718-7) HCT (test code = 44.9 % 38.4-49.3 4544-3) MCV (test code = 94.9 fL 81.7-95.6 787-2) MCH (test code = 32.1 pg 26.1-32.7 785-6) MCHC (test code = 33.9 g/dL 31.2-35.0 786-4) RDW-SD (test code = 41.6 fL 38.5-51.6 91220-9) RDW-CV (test code = 11.9 % 12.1-15.4 L 788-0) PLT (test code = See_Comment [Automated 777-3) message] The sy stem which generated this result transmitted reference range : 150 - 328 10*3/ ?L. The reference r natasha was not used to interpret this result as normal/abnormal . MPV (test code = 8.2 fL 9.8-13.0 L 27271-5) NRBC/100 WBC (test See_Comment [Automat ed code = 4895403503) message] The system which generated this result transmitted reference range : 0.0 - 10.0 /100 WBCs. The refer ence range was not u sed to interpret th is result as normal/abnormal . NRBC x10^3 (test code See_Comment [Auto mated = 1764839534) message] The s ystem which generated this result transmitted reference range : 10*3/?L. The reference range was not used to interpret this result as normal/abnormal . GRAN MAT (NEUT) % 55.2 % (test code = 770-8) IMM GRAN % (test code 0.30 % = 1756500548) LYMPH % (test code = 33.2 % 736-9) MONO % (test code = 6.9 % 5905-5) EOS % (test code = 3.8 % 713-8) BASO % (test code = 0.6 % 706-2) GRAN MAT x10^3(ANC) 4.38 10*3/uL 1.99-6.95 (test code = 6311739120) IMM GRAN x10^3 (test 0.00-0.06 code = 4121007215) LYMPH x10^3 (test code 2.64 10*3/uL 1.09-3.23 = 731-0) MONO x10^3 (test code 0.55 10*3/uL 0.36-1.02 = 742-7) EOS x10^3 (test code = 0.30 10*3/uL 0.06-0.53 711-2) BASO x10^3 (test code 0.05 10*3/uL 0.01-0.09 = 704-7) Lab Interpretation Abnormal (test code = 47302-3) [facility]34:35 Test Item Value Reference Range Interpretation Comments Height (test code = in 8985247856) Weight (test code = lbs 7216414771) Systolic BP (test code = mmHg 7137629008) Diastolic BP (test code mmHg = 4128636727) Heart Rate (test code = bpm 2605105892) BSA (test code = 1.74 m2 5553789418) LVOT diameter (test code 2.00 cm = 1148928371) LVOT area (test code = 3.20 cm2 8495737835) LVIDD (test code = 3.90 cm 2249446283) Left Ventricular End 66.7 mL Diastolic Volume by Teichholz Method (test code = 9652302) IVS (test code = 1.12 cm 2406101295) Interventricular Septum 1.12 cm Diastolic Thickness by 2D (test code = 3347087) LVPWD (test code = 1.12 cm 6988130877) PW (test code = 1.12 cm 0.6-1.2 4681833109) EF(Teich) (test code = 58.90 % 6734298286) LVIDS (test code = 2.70 cm 4771954429) Left Ventricular End 27.4 mL Systolic Volume by Teichholz Method (test code = 0387317) FS (test code = 31 % 4388412894) EF - 2D (test code = 58.90 % 55313702) LA size (test code = 3.1 cm 1497139300) TR Peak Warren (test code = 254.2 cm/s 2767090096) Triscuspid Valve mmHg Regurgitation Peak Gradient (test code = 1204436135) LAV(MOD-sp4) (test code 46.20 mL = 5738429106) MV stenosis pressure 1/2 70.1 ms time (test code = 0208870562) MV Peak E Warren (test code 56.2 cm/s = 5838292589) E wave decelartion time 0.23 s (test code = 9577689913) MV Peak A Warren (test code 54.7 cm/s = 9950304825) E/A ratio (test code = ratio 8521854325) MV Prop V (test code = 37.50 cm/s 3191747814) MV E/e' septal (test 14.2 cm/s code = 7512242191) Tapse (test code = 2.37 cm 3660274798) LVOT stroke volume (test 62.40 cm3 code = 8916071998) LVOT peak warren (test code 92.9 cm/s = 4150980837) LVOT mn grad (test code mmHg = 1358914335) AV LVOT peak gradient mmHg (test code = 4581191802) LVOT peak VTI (test code 19.8 cm = 5172106228) LV V1 mean (test code = 61.20 cm/s 4139820808) Aortic valve mean 74.9 cm/s velocity (test code = 8560576482) Ao peak warren (test code = 103.8 cm/s 4634608289) Ao VTI (test code = 21.1 cm 8860710705) AV area by cont VTI 3.0 cm2 (test code = 1974561784) AV area peak warren (test 2.8 cm2 code = 7383410783) Ao max PG (test code = 4.30 mm[Hg] 2677849844) AV peak gradient (test mmHg code = 0738568213) AV valve area (test code 3.00 cm2 = 6484682229) AV mean gradient (test mmHg code = 2401030731) Radiology Study observation (narrative) (test code = 13081-9) HERVE (test code = HERVE) ?Left?Ventricle: Left ventricle size is normal. Normal wall thickness. Normal wall motion. Normal systolic function with a visually estimated EF of 55 - 60%. Normal diastolic function. ?Tricuspid?Valve: Insufficient tricuspid regurgitation jet to estimate RVSP, but probably normal. RA pressure is 0-5 mmHg. ?Right?Ventricle: Normal systolic function. Left VentricleLeft ventricle size is normal. Normal wall thickness. Normal wall motion. Normal systolic function with a visually estimated EF of 55 - 60%. Normal diastolic function.Right VentricleRight ventricle size is normal. Normal systolic function.Left AtriumLeft atrium size is normal.Right AtriumRight atrium size is normal.IVC/SVCRA pressure is 0-5 mmHg.Mitral ValveMitral valve structure is normal. Trace transvalvular regurgitation.Tricusp id ValveTricuspid valve structure is grossly normal. Insufficient tricuspid regurgitation jet to estimate RVSP, but probably normal.Trace transvalvular regurgitation. RA pressure is 0-5 mmHg.Aortic ValveTricuspid. Mildly thickened cusps. Mildly calcified cusps.Pulmonic ValveTrace transvalvular regurgitation.Ascendi ng AortaNormal sized annulus and ascending aorta.PericardiumNo pericardial effusion.Study DetailsStudy quality was adequate. A limited echocardiogram was performed using 2D, color flow Doppler and spectral Doppler. [facility] BranchTran[facility] (TTE)2022-08-03 17:34:35 Test Item Value Reference Range Interpretation Comments Height (test code = in 5616421409) Weight (test code = lbs 6608390334) Systolic BP (test code = mmHg 1827287865) Diastolic BP (test code mmHg = 9969510275) Heart Rate (test code = bpm 8436229214) BSA (test code = 1.74 m2 6955536618) LVOT diameter (test code 2.00 cm = 5437462634) LVOT area (test code = 3.20 cm2 1262724929) LVIDD (test code = 3.90 cm 6347224929) Left Ventricular End 66.7 mL Diastolic Volume by Teichholz Method (test code = 6983729) IVS (test code = 1.12 cm 2829553772) Interventricular Septum 1.12 cm Diastolic Thickness by 2D (test code = 5753028) LVPWD (test code = 1.12 cm 3084173653) PW (test code = 1.12 cm 0.6-1.3 0289238921) EF(Teich) (test code = 58.90 % 1586394934) LVIDS (test code = 2.70 cm 0886781043) Left Ventricular End 27.4 mL Systolic Volume by Teichholz Method (test code = 0163982) FS (test code = 31 % 6907253937) EF - 2D (test code = 58.90 % 08970984) LA size (test code = 3.1 cm 1673024874) TR Peak Warren (test code = 254.2 cm/s 7143811710) Triscuspid Valve mmHg Regurgitation Peak Gradient (test code = 5886688499) LAV(MOD-sp4) (test code 46.20 mL = 4022700897) MV stenosis pressure 1/2 70.1 ms time (test code = 7105796574) MV Peak E Warren (test code 56.2 cm/s = 6231442187) E wave decelartion time 0.23 s (test code = 8257103338) MV Peak A Warren (test code 54.7 cm/s = 1523913254) E/A ratio (test code = ratio 5698798668) MV Prop V (test code = 37.50 cm/s 8678184564) MV E/e' septal (test 14.2 cm/s code = 1551702816) Tapse (test code = 2.37 cm 7306573674) LVOT stroke volume (test 62.40 cm3 code = 1842605014) LVOT peak warren (test code 92.9 cm/s = 3835986356) LVOT mn grad (test code mmHg = 1941146659) AV LVOT peak gradient mmHg (test code = 3535723146) LVOT peak VTI (test code 19.8 cm = 5542868422) LV V1 mean (test code = 61.20 cm/s 4718997363) Aortic valve mean 74.9 cm/s velocity (test code = 6019987118) Ao peak warren (test code = 103.8 cm/s 7545424022) Ao VTI (test code = 21.1 cm 2709838292) AV area by cont VTI 3.0 cm2 (test code = 2739594948) AV area peak warren (test 2.8 cm2 code = 9385715910) Ao max PG (test code = 4.30 mm[Hg] 6799792184) AV peak gradient (test mmHg code = 6217773372) AV valve area (test code 3.00 cm2 = 2078982605) AV mean gradient (test mmHg code = 3720622601) Radiology Study observation (narrative) (test code = 60619-2) HERVE (test code = HERVE) ?Left?Ventricle: Left ventricle size is normal. Normal wall thickness. Normal wall motion. Normal systolic function with a visually estimated EF of 55 - 60%. Normal diastolic function. ?Tricuspid?Valve: Insufficient tricuspid regurgitation jet to estimate RVSP, but probably normal. RA pressure is 0-5 mmHg. ?Right?Ventricle: Normal systolic function. Left VentricleLeft ventricle size is normal. Normal wall thickness. Normal wall motion. Normal systolic function with a visually estimated EF of 55 - 60%. Normal diastolic function.Right VentricleRight ventricle size is normal. Normal systolic function.Left AtriumLeft atrium size is normal.Right AtriumRight atrium size is normal.IVC/SVCRA pressure is 0-5 mmHg.Mitral ValveMitral valve structure is normal. Trace transvalvular regurgitation.Tricusp id ValveTricuspid valve structure is grossly normal. Insufficient tricuspid regurgitation jet to estimate RVSP, but probably normal.Trace transvalvular regurgitation. RA pressure is 0-5 mmHg.Aortic ValveTricuspid. Mildly thickened cusps. Mildly calcified cusps.Pulmonic ValveTrace transvalvular regurgitation.Ascendi ng AortaNormal sized annulus and ascending aorta.PericardiumNo pericardial effusion.Study DetailsStudy quality was adequate. A limited echocardiogram was performed using 2D, color flow Doppler and spectral Doppler. [facility] [id number] 10:52:18 Test Item Value Reference Range Interpretation Comments ESR (test code = 53588-7) See_Comment [ Automated message] The system [employer] generated this result transmitted ref erence range: 0 - 10 m m/HR. The reference r natasha was not used to interpret this result as normal/abnor mal. Lab Interpretation (test Normal code = 94109-5) [facility] [id number] 10:52:18 Test Item Value Reference Range Interpretation Comments ESR (test code = 61160-6) See_Comment [ Automated message] The system [employer] generated this result transmitted ref erence range: 0 - 10 m m/HR. The reference r natasha was not used to interpret this result as normal/abnor mal. Lab Interpretation (test Normal code = 45339-7) [facility]. METABOLIC PANEL ([id number])2022-08-03 10:39:37 Test Item Value Reference Range Interpretation Comments NA (test code = 136 mmol/L 135-145 7819169107) K (test code = 4.0 mmol/L 3.5-5.0 8255949574) CL (test code = 100 mmol/L 98-108 0754058498) CO2 TOTAL (test code = 28 mmol/L 23-31 2544235375) AGAP (test code = 2-16 2262157376) BUN (test code = 12 mg/dL 7-23 4827869001) GLUCOSE (test code = 181 mg/dL 70-110 H 3590960613) CREATININE (test code = 0.82 mg/dL 0.60-1.25 8732233697) TOTAL BILI (test code = 0.7 mg/dL 0.1-1.7 0074235773) CALCIUM (test code = 8.7 mg/dL 8.6-10.6 6656900914) T PROTEIN (test code = 7.1 g/dL 6.3-8.2 8560057485) ALBUMIN (test code = 4.1 g/dL 3.5-5.0 3059467266) ALK PHOS (test code = 71 U/L 34-122 8224811428) ALTv (test code = 35 U/L 5-50 1742-6) AST(SGOT) (test code = 46 U/L 13-40 H 9774952213) eGFR (test code = mL/min/1.73m2 2613816842) HERVE (test code = HERVE) Association of [...] tests). Lab Interpretation Abnormal (test code = 56660-6) [facility]. METABOLIC PANEL ([id number])2022-08-03 10:39:37 Test Item Value Reference Range Interpretation Comments NA (test code = 136 mmol/L 135-145 6327922825) K (test code = 4.0 mmol/L 3.5-5.0 3891935654) CL (test code = 100 mmol/L 98-108 6868392766) CO2 TOTAL (test code = 28 mmol/L 23-31 0949447500) AGAP (test code = 2-16 2873727264) BUN (test code = 12 mg/dL 7-23 0615585402) GLUCOSE (test code = 181 mg/dL 70-110 H 5767904708) CREATININE (test code = 0.82 mg/dL 0.60-1.25 2463274178) TOTAL BILI (test code = 0.7 mg/dL 0.1-1.0 2881792951) CALCIUM (test code = 8.7 mg/dL 8.6-10.6 6522821732) T PROTEIN (test code = 7.1 g/dL 6.3-8.2 9348541579) ALBUMIN (test code = 4.1 g/dL 3.5-5.0 2497126603) ALK PHOS (test code = 71 U/L 34-122 2988152279) ALTv (test code = 35 U/L 5-50 1742-6) AST(SGOT) (test code = 46 U/L 13-40 H 3799101483) eGFR (test code = mL/min/1.73m2 2378935996) HERVE (test code = HERVE) Association of [...] tests). Lab Interpretation Abnormal (test code = 02367-0) [facility] WITH [id number] 10:26:39 Test Item Value Reference Range Interpretation Comments WBC (test code = See_Comment H [Automated 6690-2) message] The sy stem which generated this [...] as normal/abnormal . HGB (test code = 14.7 g/dL 12.2-16.4 718-7) HCT (test code = 42.3 % 38.4-49.3 4544-3) MCV (test code = 93.0 fL 81.7-95.6 787-2) MCH (test code = 32.3 pg 26.1-32.7 785-6) MCHC (test code = 34.8 g/dL 31.2-35.0 786-4) RDW-SD (test code = 41.1 fL 38.5-51.6 63171-8) RDW-CV (test code = 11.9 % 12.1-15.4 L 788-0) PLT (test code = See_Comment [Automated 777-3) message] The sy stem which generated this result transmitted reference range : 150 - 328 10*3/ ?L. The reference r natasha was not used to interpret this result as normal/abnormal . MPV (test code = 8.0 fL 9.8-13.0 L 28816-2) NRBC/100 WBC (test See_Comment [Automat ed code = 7970656918) message] The system which generated this result transmitted reference range : 0.0 - 10.0 /100 WBCs. The refer ence range was not u sed to interpret th is result as normal/abnormal . NRBC x10^3 (test code See_Comment [Auto mated = 0414501055) message] The s ystem which generated this result transmitted reference range : 10*3/?L. The reference range was not used to interpret this result as normal/abnormal . GRAN MAT (NEUT) % 66.5 % (test code = 770-8) IMM GRAN % (test code 0.40 % = 2440234254) LYMPH % (test code = 24.1 % 736-9) MONO % (test code = 6.1 % 5905-5) EOS % (test code = 2.5 % 713-8) BASO % (test code = 0.4 % 706-2) GRAN MAT x10^3(ANC) 7.62 10*3/uL 1.99-6.95 H (test code = 9295994330) IMM GRAN x10^3 (test 0.05 10*3/uL 0.00-0.06 code = 7655930164) LYMPH x10^3 (test code 2.76 10*3/uL 1.09-3.23 = 731-0) MONO x10^3 (test code 0.70 10*3/uL 0.36-1.02 = 742-7) EOS x10^3 (test code = 0.29 10*3/uL 0.06-0.53 711-2) BASO x10^3 (test code 0.05 10*3/uL 0.01-0.09 = 704-7) Lab Interpretation Abnormal (test code = 69547-5) [facility] WITH [id number] 10:26:39 Test Item Value Reference Range Interpretation Comments WBC (test code = See_Comment H [Automated 3090-2) message] The sy stem which generated this result transmitted reference range : 4.20 - 10.70 10*3/?L. The reference range was not used to interpret this result as normal/abnormal . RBC (test code = See_Comment [Automated 439-8) message] The sy stem which generated this result transmitted reference range : 4.26 - 5.52 10*6/?L. The reference range was not used to interpret this result as normal/abnormal . HGB (test code = 14.7 g/dL 12.2-16.4 718-7) HCT (test code = 42.3 % 38.4-49.3 4544-3) MCV (test code = 93.0 fL 81.7-95.6 787-2) MCH (test code = 32.3 pg 26.1-32.7 785-6) MCHC (test code = 34.8 g/dL 31.2-35.0 786-4) RDW-SD (test code = 41.1 fL 38.5-51.6 12878-2) RDW-CV (test code = 11.9 % 12.1-15.4 L 788-0) PLT (test code = See_Comment [Automated 777-3) message] The sy stem which generated this result transmitted reference range : 150 - 328 10*3/ ?L. The reference r natasha was not used to interpret this result as normal/abnormal . MPV (test code = 8.0 fL 9.8-13.0 L 04461-3) NRBC/100 WBC (test See_Comment [Automat ed code = 7550552813) message] The system which generated this result transmitted reference range : 0.0 - 10.0 /100 WBCs. The refer ence range was not u sed to interpret th is result as normal/abnormal . NRBC x10^3 (test code See_Comment [Auto mated = 3263554538) message] The s ystem which generated this result transmitted reference range : 10*3/?L. The reference range was not used to interpret this result as normal/abnormal . GRAN MAT (NEUT) % 66.5 % (test code = 770-8) IMM GRAN % (test code 0.40 % = 2429808142) LYMPH % (test code = 24.1 % 736-9) MONO % (test code = 6.1 % 5905-5) EOS % (test code = 2.5 % 713-8) BASO % (test code = 0.4 % 706-2) GRAN MAT x10^3(ANC) 7.62 10*3/uL 1.99-6.95 H (test code = 4248559098) IMM GRAN x10^3 (test 0.05 10*3/uL 0.00-0.06 code = 0029943983) LYMPH x10^3 (test code 2.76 10*3/uL 1.09-3.23 = 731-0) MONO x10^3 (test code 0.70 10*3/uL 0.36-1.02 = 742-7) EOS x10^3 (test code = 0.29 10*3/uL 0.06-0.53 711-2) BASO x10^3 (test code 0.05 10*3/uL 0.01-0.09 = 704-7) Lab Interpretation Abnormal (test code = 68390-8) [facility]. METABOLIC PANEL ([id number])2022-07-13 20:47:58 Test Item Value Reference Range Interpretation Comments NA (test code = 140 mmol/L 135-145 0425846879) K (test code = 3.4 mmol/L 3.5-5 L 5331477405) CL (test code = 103 mmol/L 98-108 2402605916) CO2 TOTAL (test code = 31 mmol/L 23-31 9679233544) AGAP (test code = 2-16 7016230066) BUN (test code = 12 mg/dL 7-23 8389421070) GLUCOSE (test code = 118 mg/dL 70-110 H 3866242001) CREATININE (test code = 0.82 mg/dL 0.6-1.25 1421450020) TOTAL BILI (test code = 0.4 mg/dL 0.1-1.2 4468834110) CALCIUM (test code = 8.8 mg/dL 8.6-10.6 2652440987) T PROTEIN (test code = 7.2 g/dL 6.3-8.2 3398525002) ALBUMIN (test code = 4.2 g/dL 3.5-5 0982852012) ALK PHOS (test code = 82 U/L 34-122 2094619085) ALTv (test code = 53 U/L 5-50 H 1742-6) AST(SGOT) (test code = 71 U/L 13-40 H 8644583127) eGFR (test code = mL/min/1.73m2 0887732467) HERVE (test code = HERVE) Association of [...] tests). Lab Interpretation Abnormal (test code = 28890-8) [facility] WITH [id number] 20:38:38 Test Item Value Reference Range Interpretation Comments WBC (test code = See_Comment [Automated 0853-2) message] The sy stem which generated this result transmitted reference range : 4.20 - 10.70 10*3/?L. The reference range was not used to interpret this result as normal/abnormal . RBC (test code = See_Comment [Automated 155-8) message] The sy stem which generated this [...] RDW-SD (test code = 41.0 fL 38.5-51.6 48796-5) RDW-CV (test code = 11.9 % 12.1-15.4 L 788-0) PLT (test code = See_Comment [Automated 777-3) message] The sy stem which generated this result transmitted reference range : 150 - 328 10*3/ ?L. The reference r natasha was not used to interpret this result as normal/abnormal . MPV (test code = 8.5 fL 9.8-13 L 46711-6) NRBC/100 WBC (test See_Comment [Automat ed code = 0587306664) message] The system which generated this result transmitted reference range : 0.0 - 10.0 /100 WBCs. The refer ence range was not u sed to interpret th is result as normal/abnormal . NRBC x10^3 (test code See_Comment [Auto mated = 9130002085) message] The s ystem which generated this result transmitted reference range : 10*3/?L. The reference range was not used to interpret this result as normal/abnormal . GRAN MAT (NEUT) % 57.5 % (test code = 770-8) IMM GRAN % (test code 0.40 % = 0340527684) LYMPH % (test code = 31.6 % 736-9) MONO % (test code = 6.4 % 5905-5) EOS % (test code = 3.5 % 713-8) BASO % (test code = 0.6 % 706-2) GRAN MAT x10^3(ANC) 5.23 10*3/uL 1.99-6.95 (test code = 8756973816) IMM GRAN x10^3 (test 0.04 10*3/uL 0-0.06 code = 5462125999) LYMPH x10^3 (test code 2.87 10*3/uL 1.09-3.23 = 731-0) MONO x10^3 (test code 0.58 10*3/uL 0.36-1.02 = 742-7) EOS x10^3 (test code = 0.32 10*3/uL 0.06-0.53 711-2) BASO x10^3 (test code 0.05 10*3/uL 0.01-0.09 = 704-7) Lab Interpretation Abnormal (test code = 97475-6) [facility] [id number] 20:00:10 Test Item Value Reference Interpretation Comments Range TROPONIN I (test 0.002 ng/mL See_Comment [Automated code = 6982722884) message] The system which generated this result [...] biotin. Lab Interpretation Normal (test code = 55633-5) [facility]OLIC PANEL ([id number])2022-05-27 19:49:33 Test Item Value Reference Range Interpretation Comments NA (test code = 139 mmol/L 135-145 3305666583) K (test code = 3.4 mmol/L 3.5-5 L 0038149300) CL (test code = 104 mmol/L 98-108 2160857160) CO2 TOTAL (test code = 28 mmol/L 23-31 8529888220) AGAP (test code = 2-16 7105001898) BUN (test code = 19 mg/dL 7-23 1725219808) GLUCOSE (test code = 101 mg/dL 70-110 6957946659) CREATININE (test code = 1.02 mg/dL 0.6-1.25 4273083005) TOTAL BILI (test code = 1.3 mg/dL 0.1-1.1 H 1362158012) CALCIUM (test code = 9.0 mg/dL 8.6-10.6 4053765877) T PROTEIN (test code = 7.0 g/dL 6.3-8.2 9028146724) ALBUMIN (test code = 4.3 g/dL 3.5-5 2957817179) ALK PHOS (test code = 70 U/L 34-122 0509954537) ALTv (test code = 37 U/L 5-50 1742-6) AST(SGOT) (test code = 42 U/L 13-40 H 1154470858) eGFR (test code = mL/min/1.73m2 7214859160) HERVE (test code = HERVE) Association of [...] tests). Lab Interpretation Abnormal (test code = 04675-9) [facility] [id number] 19:48:48 Test Item Value Reference Range Interpretation Comments CK (test code = 6321246717) 159 U/L 33-194 Lab Interpretation (test code = Normal 78528-3) [facility] WITH [id number] 19:26:48 Test Item Value Reference Range Interpretation Comments WBC (test code = See_Comment [Automated 6690-2) message] The sy stem which generated this [...] RDW-SD (test code = 42.5 fL 38.5-51.6 98855-7) RDW-CV (test code = 12.2 % 12.1-15.4 788-0) PLT (test code = See_Comment [Automated 777-3) message] The sy stem which generated this result transmitted reference range : 150 - 328 10*3/ ?L. The reference r natasha was not used to interpret this result as normal/abnormal . MPV (test code = 8.0 fL 9.8-13 L 13309-6) NRBC/100 WBC (test See_Comment [Automat ed code = 9278452399) message] The system which generated this result transmitted reference range : 0.0 - 10.0 /100 WBCs. The refer ence range was not u sed to interpret th is result as normal/abnormal . NRBC x10^3 (test code See_Comment [Auto mated = 2998570770) message] The s ystem which generated this result transmitted reference range : 10*3/?L. The reference range was not used to interpret this result as normal/abnormal . GRAN MAT (NEUT) % 54.4 % (test code = 770-8) IMM GRAN % (test code 0.30 % = 1993011821) LYMPH % (test code = 32.4 % 736-9) MONO % (test code = 9.2 % 5905-5) EOS % (test code = 3.3 % 713-8) BASO % (test code = 0.4 % 706-2) GRAN MAT x10^3(ANC) 4.06 10*3/uL 1.99-6.95 (test code = 4572232714) IMM GRAN x10^3 (test 0-0.06 code = 3207251805) LYMPH x10^3 (test code 2.42 10*3/uL 1.09-3.23 = 731-0) MONO x10^3 (test code 0.69 10*3/uL 0.36-1.02 = 742-7) EOS x10^3 (test code = 0.25 10*3/uL 0.06-0.53 711-2) BASO x10^3 (test code 0.03 10*3/uL 0.01-0.09 = 704-7) Lab Interpretation Abnormal (test code = 00099-8) [facility] [id number] 08:29:05 Test Item Value Reference Range Interpretation [...] A/G 1.4 ratio N Ratio) Comprehensive Metabolic [id number] 08:29:05 Test Item Value Reference Range Interpretation [...] [employer], [email or web address] h.gov Comprehensive Metabolic [id number] 08:29:05 Test Item Value Reference Range Interpretation [...] Foundation, [email or web address] h.gov Complete Blood Count without [id number] 08:07:00 Test Item Value Reference Range Interpretation [...] code = IPF) 0 % N RPR [id number] 11:58:31 Test Item Value Reference Range Interpretation [...] = 09-30-2020 N Expiration Dt) Thyroid Stimulating [id number] 07:31:59 Test Item Value Reference Range Interpretation Comments TSH (test code = TSH) 1.000 mIU/mL 0.270-4.200 Lipid [id number] 07:11:41 Test Item Value Reference Range Interpretation Comments Cholesterol Total 176 mg/dL 0-200 RISK OF HE ART (test code = DISEASEPublishe d by Cholesterol Total) [place] [employer] Maria G lyte Optimal Borderl [...] is LDL/HDL Ratio=L DL Calc/HDL Chol DRUG [id number] 13:01:00 Test Item Value Reference Range Interpretation Comments U Opiate Scr (test Negative *NA*(12/19/16 code = U Opiate Scr) 8:01 AM) [facility] [id number] 13:01:00 Test Item Value Reference Range Interpretation Comments U Cannab Scr (test Negative *NA*(12/19/16 code = U Cannab Scr) 8:01 AM) [facility] [id number] 13:01:00 Test Item Value Reference Range Interpretation Comments U Amph Scr (test code Positive *ABN*(12/19/16 = U Amph Scr) 8:01 AM) [facility] [id number] 13:01:00 Test Item Value Reference Range Interpretation Comments U Ysabel Scr (test code Negative *NA*(12/19/16 = U Ysabel Scr) 8:01 AM) [facility] [id number] 13:01:00 Test Item Value Reference Range Interpretation Comments U Benzodia Scr (test Negative *NA*(12/19/16 code = U Benzodia Scr) 8:01 AM) [facility] [id number] 13:01:00 Test Item Value Reference Range Interpretation Comments U Cocaine Scr (test Negative *NA*(12/19/16 code = U Cocaine Scr) 8:01 AM) [facility] [id number] 13:01:00 Test Item Value Reference Range Interpretation Comments UDS Note (test code = See Note (12/19/16 8:01 UDS Note) AM) [facility] [id number] 13:01:00 Test Item Value Reference Range Interpretation Comments U Phencyc Scr (test Negative *NA*(12/19/16 code = U Phencyc Scr) 8:01 AM) [facility] [id number] 13:01:00 Test Item Value Reference Range Interpretation Comments UDS Note (test code = See Note (12/19/16 8:01 UDS Note) AM) [facility] [id number] 13:01:00 Test Item Value Reference Range Interpretation Comments U Phencyc Scr (test Negative *NA*(12/19/16 code = U Phencyc Scr) 8:01 AM) [facility] [id number] 13:01:00 Test Item Value Reference Range Interpretation Comments U Opiate Scr (test Negative *NA*(12/19/16 code = U Opiate Scr) 8:01 AM) [facility] [id number] 13:01:00 Test Item Value Reference Range Interpretation Comments U Cannab Scr (test Negative *NA*(12/19/16 code = U Cannab Scr) 8:01 AM) [facility] [id number] 13:01:00 Test Item Value Reference Range Interpretation Comments U Amph Scr (test code Positive *ABN*(12/19/16 = U Amph Scr) 8:01 AM) [facility] [id number] 13:01:00 Test Item Value Reference Range Interpretation Comments U Ysabel Scr (test code Negative *NA*(12/19/16 = U Ysabel Scr) 8:01 AM) [facility] [id number] 13:01:00 Test Item Value Reference Range Interpretation Comments U Benzodia Scr (test Negative *NA*(12/19/16 code = U Benzodia Scr) 8:01 AM) [facility] [id number] 13:01:00 Test Item Value Reference Range Interpretation Comments U Cocaine Scr (test Negative *NA*(12/19/16 code = U Cocaine Scr) 8:01 AM) [facility] [id number] 13:01:00 Test Item Value Reference Range Interpretation Comments UDS Note (test code = See Note (12/19/16 8:01 UDS Note) AM) [facility] [id number] 13:01:00 Test Item Value Reference Range Interpretation Comments U Phencyc Scr (test Negative *NA*(12/19/16 code = U Phencyc Scr) 8:01 AM) [facility] [id number] 13:01:00 Test Item Value Reference Range Interpretation Comments U Opiate Scr (test Negative *NA*(12/19/16 code = U Opiate Scr) 8:01 AM) [facility] [id number] 13:01:00 Test Item Value Reference Range Interpretation Comments U Cannab Scr (test Negative *NA*(12/19/16 code = U Cannab Scr) 8:01 AM) [facility] [id number] 13:01:00 Test Item Value Reference Range Interpretation Comments U Amph Scr (test code Positive *ABN*(12/19/16 = U Amph Scr) 8:01 AM) [facility] [id number] 13:01:00 Test Item Value Reference Range Interpretation Comments U Ysabel Scr (test code Negative *NA*(12/19/16 = U Ysabel Scr) 8:01 AM) [facility] [id number] 13:01:00 Test Item Value Reference Range Interpretation Comments U Benzodia Scr (test Negative *NA*(12/19/16 code = U Benzodia Scr) 8:01 AM) [facility] [id number] 13:01:00 Test Item Value Reference Range Interpretation Comments U Cocaine Scr (test Negative *NA*(12/19/16 code = U Cocaine Scr) 8:01 AM) [facility] [id number] 13:01:00 Test Item Value Reference Range Interpretation Comments UDS Note (test code = See Note (12/19/16 8:01 UDS Note) AM) [facility] [id number] 13:01:00 Test Item Value Reference Range Interpretation Comments U Phencyc Scr (test Negative *NA*(12/19/16 code = U Phencyc Scr) 8:01 AM) [facility] [id number] 13:01:00 Test Item Value Reference Range Interpretation Comments U Opiate Scr (test Negative *NA*(12/19/16 code = U Opiate Scr) 8:01 AM) [facility] [id number] 13:01:00 Test Item Value Reference Range Interpretation Comments U Cannab Scr (test Negative *NA*(12/19/16 code = U Cannab Scr) 8:01 AM) [facility] [id number] 13:01:00 Test Item Value Reference Range Interpretation Comments U Amph Scr (test code Positive *ABN*(12/19/16 = U Amph Scr) 8:01 AM) [facility] [id number] 13:01:00 Test Item Value Reference Range Interpretation Comments U Ysabel Scr (test code Negative *NA*(12/19/16 = U Ysbael Scr) 8:01 AM) [facility] [id number] 13:01:00 Test Item Value Reference Range Interpretation Comments U Benzodia Scr (test Negative *NA*(12/19/16 code = U Benzodia Scr) 8:01 AM) [facility] [id number] 13:01:00 Test Item Value Reference Range Interpretation Comments U Cocaine Scr (test Negative *NA*(12/19/16 code = U Cocaine Scr) 8:01 AM) [facility] [id number] 13:01:00 Test Item Value Reference Range Interpretation Comments UDS Note (test code = See Note (12/19/16 8:01 UDS Note) AM) [facility] [id number] 13:01:00 Test Item Value Reference Range Interpretation Comments U Phencyc Scr (test Negative *NA*(12/19/16 code = U Phencyc Scr) 8:01 AM) [facility] [id number] 13:01:00 Test Item Value Reference Range Interpretation Comments U Opiate Scr (test Negative *NA*(12/19/16 code = U Opiate Scr) 8:01 AM) [facility] [id number] 13:01:00 Test Item Value Reference Range Interpretation Comments U Cannab Scr (test Negative *NA*(12/19/16 code = U Cannab Scr) 8:01 AM) [facility] [id number] 13:01:00 Test Item Value Reference Range Interpretation Comments U Amph Scr (test code Positive *ABN*(12/19/16 = U Amph Scr) 8:01 AM) [facility] [id number] 13:01:00 Test Item Value Reference Range Interpretation Comments U Ysabel Scr (test code Negative *NA*(12/19/16 = U Ysabel Scr) 8:01 AM) [facility] [id number] 13:01:00 Test Item Value Reference Range Interpretation Comments U Benzodia Scr (test Negative *NA*(12/19/16 code = U Benzodia Scr) 8:01 AM) [facility] [id number] 13:01:00 Test Item Value Reference Range Interpretation Comments U Cocaine Scr (test Negative *NA*(12/19/16 code = U Cocaine Scr) 8:01 AM) [facility] [id number] 13:01:00 Test Item Value Reference Range Interpretation Comments UDS Note (test code = See Note (12/19/16 8:01 UDS Note) AM) [facility] [id number] 13:01:00 Test Item Value Reference Range Interpretation Comments U Phencyc Scr (test Negative *NA*(12/19/16 code = U Phencyc Scr) 8:01 AM) [facility] [id number] 13:01:00 Test Item Value Reference Range Interpretation Comments U Opiate Scr (test Negative *NA*(12/19/16 code = U Opiate Scr) 8:01 AM) [facility] [id number] 13:01:00 Test Item Value Reference Range Interpretation Comments U Cannab Scr (test Negative *NA*(12/19/16 code = U Cannab Scr) 8:01 AM) [facility] [id number] 13:01:00 Test Item Value Reference Range Interpretation Comments U Amph Scr (test code Positive *ABN*(12/19/16 = U Amph Scr) 8:01 AM) [facility] [id number] 13:01:00 Test Item Value Reference Range Interpretation Comments U Ysabel Scr (test code Negative *NA*(12/19/16 = U Ysabel Scr) 8:01 AM) [facility] [id number] 13:01:00 Test Item Value Reference Range Interpretation Comments U Benzodia Scr (test Negative *NA*(12/19/16 code = U Benzodia Scr) 8:01 AM) [facility] [id number] 13:01:00 Test Item Value Reference Range Interpretation Comments U Cocaine Scr (test Negative *NA*(12/19/16 code = U Cocaine Scr) 8:01 AM) [facility] [id number] 13:01:00 Test Item Value Reference Range Interpretation Comments UDS Note (test code = See Note (12/19/16 8:01 UDS Note) AM) [facility] [id number] 13:01:00 Test Item Value Reference Range Interpretation Comments U Phencyc Scr (test Negative *NA*(12/19/16 code = U Phencyc Scr) 8:01 AM) [facility] [id number] 13:01:00 Test Item Value Reference Range Interpretation Comments U Opiate Scr (test Negative *NA*(12/19/16 code = U Opiate Scr) 8:01 AM) [facility] [id number] 13:01:00 Test Item Value Reference Range Interpretation Comments U Cannab Scr (test Negative *NA*(12/19/16 code = U Cannab Scr) 8:01 AM) [facility] [id number] 13:01:00 Test Item Value Reference Range Interpretation Comments U Amph Scr (test code Positive *ABN*(12/19/16 = U Amph Scr) 8:01 AM) [facility] [id number] 13:01:00 Test Item Value Reference Range Interpretation Comments U Ysabel Scr (test code Negative *NA*(12/19/16 = U Ysabel Scr) 8:01 AM) [facility] [id number] 13:01:00 Test Item Value Reference Range Interpretation Comments U Benzodia Scr (test Negative *NA*(12/19/16 code = U Benzodia Scr) 8:01 AM) [facility] [id number] 13:01:00 Test Item Value Reference Range Interpretation Comments U Cocaine Scr (test Negative *NA*(12/19/16 code = U Cocaine Scr) 8:01 AM) [facility]2017-02-19 03:24:00 Test Item Value Reference Range Interpretation Comments Creatinine Lvl (test code = Creatinine 0.90 0.50-1.40 Lvl) [facility]2017-02-19 03:24:00 Test Item Value Reference Range Interpretation Comments eGFR (test code = eGFR) 100 [facility]2017-02-19 03:24:00 Test Item Value Reference Range Interpretation Comments AGAP (test code = AGAP) 18.1 10.0-20.0 [facility]2017-02-19 03:24:00 Test Item Value Reference Range Interpretation Comments CO2 (test code = CO2) - [facility]2017-02-19 03:24:00 Test Item Value Reference Range Interpretation Comments Chloride Lvl (test code = Chloride Lvl) 97 95-109 [facility]2017-02-19 03:24:00 Test Item Value Reference Range Interpretation Comments Calcium Lvl (test code = Calcium Lvl) 8.7 8.5-10.5 [facility]2017-02-19 03:24:00 Test Item Value Reference Range Interpretation Comments Potassium Lvl (test code = Potassium 4.1 3.5-5.1 Lvl) [facility]2017-02-19 03:24:00 Test Item Value Reference Range Interpretation Comments Sodium Lvl (test code = Sodium Lvl) 133 135-145 [facility]2017-02-19 03:24:00 Test Item Value Reference Range Interpretation Comments Glucose Lvl (test code = Glucose Lvl) 92 70-99 [facility]2017-02-19 03:24:00 Test Item Value Reference Range Interpretation Comments BUN (test code = BUN) 12 04-21 [facility]2017-02-19 03:24:00 Test Item Value Reference Range Interpretation Comments Creatinine Lvl (test code = Creatinine 0.90 0.50-1.40 Lvl) [facility]2017-02-19 03:24:00 Test Item Value Reference Range Interpretation Comments eGFR (test code = eGFR) 100 [place] [id number] 03:24:00 Test Item Value Reference Range Interpretation Comments AGAP (test code = AGAP) 18.1 10.0-20.0 [facility]2017-02-19 03:24:00 Test Item Value Reference Range Interpretation Comments CO2 (test code = CO2) [facility]2017-02-19 03:24:00 Test Item Value Reference Range Interpretation Comments Chloride Lvl (test code = Chloride Lvl) 97 95-109 [facility]2017-02-19 03:24:00 Test Item Value Reference Range Interpretation Comments Calcium Lvl (test code = Calcium Lvl) 8.7 8.5-10.5 [facility]2017-02-19 03:24:00 Test Item Value Reference Range Interpretation Comments Potassium Lvl (test code = Potassium 4.1 3.5-5.1 Lvl) [facility]2017-02-19 03:24:00 Test Item Value Reference Range Interpretation Comments Sodium Lvl (test code = Sodium Lvl) 133 135-145 [facility]2017-02-19 03:24:00 Test Item Value Reference Range Interpretation Comments Glucose Lvl (test code = Glucose Lvl) 92 70-99 [facility]2017-02-19 03:24:00 Test Item Value Reference Range Interpretation Comments BUN (test code = BUN) 12 04-21 [facility]2017-02-19 03:24:00 Test Item Value Reference Range Interpretation Comments Creatinine Lvl (test code = Creatinine 0.90 0.50-1.40 Lvl) [facility]2017-02-19 03:24:00 Test Item Value Reference Range Interpretation Comments eGFR (test code = eGFR) 100 [facility]2017-02-19 03:24:00 Test Item Value Reference Range Interpretation Comments AGAP (test code = AGAP) 18.1 10.0-20.0 [facility]2017-02-19 03:24:00 Test Item Value Reference Range Interpretation Comments CO2 (test code = CO2) [facility]2017-02-19 03:24:00 Test Item Value Reference Range Interpretation Comments Chloride Lvl (test code = Chloride Lvl) 97 95-109 [facility]2017-02-19 03:24:00 Test Item Value Reference Range Interpretation Comments Calcium Lvl (test code = Calcium Lvl) 8.7 8.5-10.5 [facility]2017-02-19 03:24:00 Test Item Value Reference Range Interpretation Comments Potassium Lvl (test code = Potassium 4.1 3.5-5.1 Lvl) [facility]2017-02-19 03:24:00 Test Item Value Reference Range Interpretation Comments Sodium Lvl (test code = Sodium Lvl) 133 135-145 [facility]2017-02-19 03:24:00 Test Item Value Reference Range Interpretation Comments Glucose Lvl (test code = Glucose Lvl) 92 70-99 [facility]2017-02-19 03:24:00 Test Item Value Reference Range Interpretation Comments BUN (test code = BUN) 12 7-22 [facility]2017-02-19 03:24:00 Test Item Value Reference Range Interpretation Comments Creatinine Lvl (test code = Creatinine 0.90 0.50-1.40 Lvl) [facility]2017-02-19 03:24:00 Test Item Value Reference Range Interpretation Comments eGFR (test code = eGFR) 100 [facility]2017-02-19 03:24:00 Test Item Value Reference Range Interpretation Comments AGAP (test code = AGAP) 18.1 10.0-20.0 [facility]2017-02-19 03:24:00 Test Item Value Reference Range Interpretation Comments CO2 (test code = CO2) 22 24-32 [facility]2017-02-19 03:24:00 Test Item Value Reference Range Interpretation Comments Chloride Lvl (test code = Chloride Lvl) 97 95-109 [facility]2017-02-19 03:24:00 Test Item Value Reference Range Interpretation Comments Calcium Lvl (test code = Calcium Lvl) 8.7 8.5-10.5 [facility]2017-02-19 03:24:00 Test Item Value Reference Range Interpretation Comments Potassium Lvl (test code = Potassium 4.1 3.5-5.1 Lvl) [facility]2017-02-19 03:24:00 Test Item Value Reference Range Interpretation Comments Sodium Lvl (test code = Sodium Lvl) 133 135-145 [facility]2017-02-19 03:24:00 Test Item Value Reference Range Interpretation Comments Glucose Lvl (test code = Glucose Lvl) 92 70- [facility]2017-02-19 03:24:00 Test Item Value Reference Range Interpretation Comments BUN (test code = BUN) 04-21 [facility]2017-02-19 03:24:00 Test Item Value Reference Range Interpretation Comments Creatinine Lvl (test code = Creatinine 0.90 0.50-1.40 Lvl) [facility]2017-02-19 03:24:00 Test Item Value Reference Range Interpretation Comments eGFR (test code = eGFR) 100 [facility]2017-02-19 03:24:00 Test Item Value Reference Range Interpretation Comments AGAP (test code = AGAP) 18.1 10.0-20.0 [facility]2017-02-19 03:24:00 Test Item Value Reference Range Interpretation Comments CO2 (test code = CO2) [facility]2017-02-19 03:24:00 Test Item Value Reference Range Interpretation Comments Chloride Lvl (test code = Chloride Lvl) 97 95-109 [facility]2017-02-19 03:24:00 Test Item Value Reference Range Interpretation Comments Calcium Lvl (test code = Calcium Lvl) 8.7 8.5-10.5 [facility]2017-02-19 03:24:00 Test Item Value Reference Range Interpretation Comments Potassium Lvl (test code = Potassium 4.1 3.5-5.1 Lvl) [facility]2017-02-19 03:24:00 Test Item Value Reference Range Interpretation Comments Sodium Lvl (test code = Sodium Lvl) 133 135-145 [facility]2017-02-19 03:24:00 Test Item Value Reference Range Interpretation Comments Glucose Lvl (test code = Glucose Lvl) 92 - [facility]2017-02-19 03:24:00 Test Item Value Reference Range Interpretation Comments BUN (test code = BUN) 04-21 [facility]2017-02-19 03:24:00 Test Item Value Reference Range Interpretation Comments Creatinine Lvl (test code = Creatinine 0.90 0.50-1.40 Lvl) [facility]2017-02-19 03:24:00 Test Item Value Reference Range Interpretation Comments eGFR (test code = eGFR) 100 [facility]2017-02-19 03:24:00 Test Item Value Reference Range Interpretation Comments AGAP (test code = AGAP) 18.1 10.0-20.0 [facility]2017-02-19 03:24:00 Test Item Value Reference Range Interpretation Comments CO2 (test code = CO2) 22 24-32 [facility]2017-02-19 03:24:00 Test Item Value Reference Range Interpretation Comments Chloride Lvl (test code = Chloride Lvl) 97 95-109 [facility]2017-02-19 03:24:00 Test Item Value Reference Range Interpretation Comments Calcium Lvl (test code = Calcium Lvl) 8.7 8.5-10.5 [facility]2017-02-19 03:24:00 Test Item Value Reference Range Interpretation Comments Potassium Lvl (test code = Potassium 4.1 3.5-5.1 Lvl) [facility]2017-02-19 03:24:00 Test Item Value Reference Range Interpretation Comments Sodium Lvl (test code = Sodium Lvl) 133 135-145 [facility]2017-02-19 03:24:00 Test Item Value Reference Range Interpretation Comments Glucose Lvl (test code = Glucose Lvl) 92 70-99 [facility]2017-02-19 03:24:00 Test Item Value Reference Range Interpretation Comments BUN (test code = BUN) 12 7-22 [facility]2017-02-19 03:24:00 Test Item Value Reference Range Interpretation Comments Creatinine Lvl (test code = Creatinine 0.90 0.50-1.40 Lvl) [facility]2017-02-19 03:24:00 Test Item Value Reference Range Interpretation Comments eGFR (test code = eGFR) 100 [facility]2017-02-19 03:24:00 Test Item Value Reference Range Interpretation Comments AGAP (test code = AGAP) 18.1 10.0-20.0 [facility]2017-02-19 03:24:00 Test Item Value Reference Range Interpretation Comments CO2 (test code = CO2) 22 24-32 [facility] [employer] [id number] 03:24:00 Test Item Value Reference Range Interpretation Comments Chloride Lvl (test code = Chloride Lvl) 97 95-109 [facility] [id number] 03:24:00 Test Item Value Reference Range Interpretation Comments Calcium Lvl (test code = Calcium Lvl) 8.7 8.5-10.5 [facility] [id number] 03:24:00 Test Item Value Reference Range Interpretation Comments Potassium Lvl (test code = Potassium 4.1 3.5-5.1 Lvl) [facility] [id number] 03:24:00 Test Item Value Reference Range Interpretation Comments Sodium Lvl (test code = Sodium Lvl) 133 135-145 [facility] [id number] 03:24:00 Test Item Value Reference Range Interpretation Comments Glucose Lvl (test code = Glucose Lvl) 92 70-99 [facility] [id number] 03:24:00 Test Item Value Reference Range Interpretation Comments BUN (test code = BUN) 12 7-22 [facility] [employer] [id number] 02:24:00 Test Item Value Reference Range Interpretation Comments ABO/Rh (test code = ABO/Rh) O NEG [facility] [employer] [id number] 02:24:00 Test Item Value Reference Range Interpretation Comments Antibody Scrn (test Negative (11/18/16 8:24 code = Antibody Scrn) PM) [facility] [employer] [id number] 02:24:00 Test Item Value Reference Range Interpretation Comments U Cocaine Scr (test Positive *ABN*(11/18/16 code = U Cocaine Scr) 8:24 PM) [facility] [employer] [id number] 02:24:00 Test Item Value Reference Range Interpretation Comments U Benzodia Scr (test Negative *NA*(11/18/16 code = U Benzodia Scr) 8:24 PM) [facility] [employer] [id number] 02:24:00 Test Item Value Reference Range Interpretation Comments U Amph Scr (test code Negative *NA*(11/18/16 = U Amph Scr) 8:24 PM) [facility] [id number] 02:24:00 Test Item Value Reference Range Interpretation Comments U Opiate Scr (test Positive *ABN*(11/18/16 code = U Opiate Scr) 8:24 PM) [facility] [id number] 02:24:00 Test Item Value Reference Range Interpretation Comments U Cannab Scr (test Negative *NA*(11/18/16 code = U Cannab Scr) 8:24 PM) [facility] [id number] 02:24:00 Test Item Value Reference Range Interpretation Comments U Ysabel Scr (test code Negative *NA*(11/18/16 = U Ysabel Scr) 8:24 PM) [facility] [id number] 02:24:00 Test Item Value Reference Range Interpretation Comments U Phencyc Scr (test Negative *NA*(11/18/16 code = U Phencyc Scr) 8:24 PM) [facility] [id number] 02:24:00 Test Item Value Reference Range Interpretation Comments UDS Note (test code = See Note (11/18/16 8:24 UDS Note) PM) [facility] [id number] 02:24:00 Test Item Value Reference Range Interpretation Comments U Propoxyph Scr (test Negative *NA*(11/18/16 code = U Propoxyph Scr) 8:24 PM) [facility] [id number] 02:24:00 Test Item Value Reference Range Interpretation Comments U Methadone Scr (test Negative *NA*(11/18/16 code = U Methadone Scr) 8:24 PM) [id number] 02:24:00 Test Item Value Reference Range Interpretation Comments Monocytes # (test code 0.7 See_Comment [Aut omated message] The = Monocytes #) system which generated this result tra nsmitted reference range : <=0.8. The reference r natasha was not used to int erpret this result as normal/abnormal . [id number] 02:24:00 Test Item Value Reference Range Interpretation Comments Basophils # (test code 0.1 See_Comment [Aut omated message] The = Basophils #) system which generated this result tra nsmitted reference range : <=0.2. The reference r natasha was not used to int erpret this result as normal/abnormal . [facility] H[id number] 02:24:00 Test Item Value Reference Range Interpretation Comments Eosinophils # (test code 0.1 See_Comment [A utomated message] The = Eosinophils #) system whic h generated this result tra nsmitted reference range : <=0.5. The reference r natasha was not used to int erpret this result as normal/abnormal . [facility] HospitalG[id number] 02:24:00 Test Item Value Reference Range Interpretation Comments Segs (test code = Segs) 72.1 45.0-75.0 [facility] HospitalRwcywaiNNDESCBGYT3703-23-10 02:24:00 Test Item Value Reference Range Interpretation Comments Lymphocytes (test code = Lymphocytes) 20.2 20.0-40.0 [facility] [id number] 02:24:00 Test Item Value Reference Range Interpretation Comments Monocytes (test code = Monocytes) 6.1 2.0-12.0 [facility] HospitalAdbaaqyVMHVTOSLWO1792-40-02 02:24:00 Test Item Value Reference Range Interpretation Comments Segs-Bands # (test code = Segs-Bands #) 8.2 1.5-8.1 [facility] H[id number] 02:24:00 Test Item Value Reference Range Interpretation Comments Eosinophils (test code = 0.9 See_Comment [A utomated message] The Eosinophils) system which ge nerated this result tra nsmitted reference range : <=4.0. The reference r natasha was not used to int erpret this result as normal/abnormal . [facility] H[id number] 02:24:00 Test Item Value Reference Range Interpretation Comments Basophils (test code = 0.7 See_Comment [Aut omated message] The Basophils) system which ge nerated this result tra nsmitted reference range : <=1.0. The reference r natasha was not used to int erpret this result as normal/abnormal . [facility] HospitalEpfsuisGCKOUECOZP9209-18-79 02:24:00 Test Item Value Reference Range Interpretation Comments Lymphocytes # (test code = Lymphocytes 2.3 1.0-5.5 #) [facility] H[id number] 02:24:00 Test Item Value Reference Range Interpretation Comments RBC Morph (test code = Normal (11/18/16 8:24 RBC Morph) PM) [facility] H[id number] 02:24:00 Test Item Value Reference Range Interpretation Comments Plt Morph (test code = Normal (11/18/16 8:24 Plt Morph) PM) [facility] Hos[id number] 02:24:00 Test Item Value Reference Range Interpretation Comments Hgb (test code = Hgb) 15.2 14.0-18.0 [facility] H[id number] 02:24:00 Test Item Value Reference Range Interpretation Comments WBC (test code = WBC) 11.3 3.7-10.4 [facility] H[id number] 02:24:00 Test Item Value Reference Range Interpretation Comments Hct (test code = Hct) 43.2 42.0-54.0 [facility] HospitalNxijdhrOHGHQPBKIG4389-60-21 02:24:00 Test Item Value Reference Range Interpretation Comments MCHC (test code = MCHC) 35.1 32.0-36.0 [facility] Hos[id number] 02:24:00 Test Item Value Reference Range Interpretation Comments RBC (test code = RBC) 4.57 4.70-6.10 [facility] HospitalZ[id number] 02:24:00 Test Item Value Reference Range Interpretation Comments MCV (test code = MCV) 94.6 80.0-94.0 [facility] HospitalVmidsssMSQAANWPHG8458-75-81 02:24:00 Test Item Value Reference Range Interpretation Comments RDW (test code = RDW) 12.5 11.5-14.5 [facility] HospitalDeynfbwPMTYIXMHMH4309-87-68 02:24:00 Test Item Value Reference Range Interpretation Comments MCH (test code = MCH) 33.2 pg 27.0-31.0 [facility] HospitalDfotmtzYBGVPUEGTB7699-63-29 02:24:00 Test Item Value Reference Range Interpretation Comments MPV (test code = MPV) 6.6 7.4-10.4 [facility] HospitalFbcklieXBQBEFQMXG8620-01-25 02:24:00 Test Item Value Reference Range Interpretation Comments Platelet (test code = Platelet) 231 133-450 [facility] HospitalPsjqdfjLLLOPCOLQI5703-45-57 02:24:00 Test Item Value Reference Range Interpretation Comments PT (test code = PT) 13.1 s 12.0-14.7 [facility] HospitalAnigwrpWUIMQCGGPR4695-30-41 02:24:00 Test Item Value Reference Range Interpretation Comments INR (test code = INR) 0.97 0.85-1.17 [facility] HospitalDjgsmhrOKWIOVFTXM6316-03-82 02:24:00 Test Item Value Reference Range Interpretation Comments PTT (test code = PTT) 27.1 s 22.9-35.8 [facility] HospitalSwelttiKZHISQARPM7442-99-66 02:24:00 Test Item Value Reference Range Interpretation Comments RBC Morph (test code = Normal (11/18/16 8:24 RBC Morph) PM) [facility] HospitalJawfaqpOPOXLFXADW0179-18-06 02:24:00 Test Item Value Reference Range Interpretation Comments Plt Morph (test code = Normal (11/18/16 8:24 Plt Morph) PM) [facility] HospitalVrndvbsSDBDEOXJDX4442-87-59 02:24:00 Test Item Value Reference Range Interpretation Comments Hgb (test code = Hgb) 15.2 14.0-18.0 [facility]LpyxjvcKEPIXRVYIZ7459-87-37 02:24:00 Test Item Value Reference Range Interpretation Comments WBC (test code = WBC) 11.3 3.7-10.4 [facility] HospitalWlxrhauQRJELPSQRR2406-38-35 02:24:00 Test Item Value Reference Range Interpretation Comments Hct (test code = Hct) 43.2 42.0-54.0 [facility] HospitalLrruvghIOSBRFBQXL4610-82-15 02:24:00 Test Item Value Reference Range Interpretation Comments MCHC (test code = MCHC) 35.1 32.0-36.0 [facility] HospitalZhynxsqPECHFOAAFN8081-89-95 02:24:00 Test Item Value Reference Range Interpretation Comments RBC (test code = RBC) 4.57 4.70-6.10 [facility] HospitalVekuenuIPZUHIMAEL4422-41-38 02:24:00 Test Item Value Reference Range Interpretation Comments MCV (test code = MCV) 94.6 80.0-94.0 [facility] HospitalAekpxfdDYSJVECQAS3099-34-43 02:24:00 Test Item Value Reference Range Interpretation Comments RDW (test code = RDW) 12.5 11.5-14.5 [facility] HospitalPybvwpnURDUXQFBYI9251-30-84 02:24:00 Test Item Value Reference Range Interpretation Comments MCH (test code = MCH) 33.2 pg 27.0-31.0 [facility] HospitalNtlbbthLWJAOSWDYE3390-48-57 02:24:00 Test Item Value Reference Range Interpretation Comments MPV (test code = MPV) 6.6 7.4-10.4 [facility] LzxnnzjGZQHANPVXE4587-99-07 02:24:00 Test Item Value Reference Range Interpretation Comments Platelet (test code = Platelet) 231 133-450 [facility] ZixnrbaNGFVRUTANL3128-72-09 02:24:00 Test Item Value Reference Range Interpretation Comments PT (test code = PT) 13.1 s 12.0-14.7 [facility] TitiwegFVYTUBMXVD4756-29-44 02:24:00 Test Item Value Reference Range Interpretation Comments INR (test code = INR) 0.97 0.85-1.17 [facility] GkswzryOVRRPFWROA5747-33-30 02:24:00 Test Item Value Reference Range Interpretation Comments PTT (test code = PTT) 27.1 s 22.9-35.8 [employer] [id number] 02:24:00 Test Item Value Reference Range Interpretation Comments ABO/Rh (test code = ABO/Rh) O NEG [employer] [id number] 02:24:00 Test Item Value Reference Range Interpretation Comments Antibody Scrn (test Negative (11/18/16 8:24 code = Antibody Scrn) PM) [facility] [id number] 02:24:00 Test Item Value Reference Range Interpretation Comments U Cocaine Scr (test Positive *ABN*(11/18/16 code = U Cocaine Scr) 8:24 PM) [facility] [employer] [id number] 02:24:00 Test Item Value Reference Range Interpretation Comments U Benzodia Scr (test Negative *NA*(11/18/16 code = U Benzodia Scr) 8:24 PM) [facility] [employer] [id number] 02:24:00 Test Item Value Reference Range Interpretation Comments U Amph Scr (test code Negative *NA*(11/18/16 = U Amph Scr) 8:24 PM) [facility] [employer] [id number] 02:24:00 Test Item Value Reference Range Interpretation Comments U Opiate Scr (test Positive *ABN*(11/18/16 code = U Opiate Scr) 8:24 PM) [facility] [employer] [id number] 02:24:00 Test Item Value Reference Range Interpretation Comments U Cannab Scr (test Negative *NA*(11/18/16 code = U Cannab Scr) 8:24 PM) [facility] [id number] 02:24:00 Test Item Value Reference Range Interpretation Comments U Ysabel Scr (test code Negative *NA*(11/18/16 = U Ysabel Scr) 8:24 PM) [facility] [id number] 02:24:00 Test Item Value Reference Range Interpretation Comments U Phencyc Scr (test Negative *NA*(11/18/16 code = U Phencyc Scr) 8:24 PM) [facility] [id number] 02:24:00 Test Item Value Reference Range Interpretation Comments UDS Note (test code = See Note (11/18/16 8:24 UDS Note) PM) [facility] [id number] 02:24:00 Test Item Value Reference Range Interpretation Comments U Propoxyph Scr (test Negative *NA*(11/18/16 code = U Propoxyph Scr) 8:24 PM) [facility] [id number] 02:24:00 Test Item Value Reference Range Interpretation Comments U Methadone Scr (test Negative *NA*(11/18/16 code = U Methadone Scr) 8:24 PM) [facility] CenterKiyxskxVDFHFQYCAE3128-97-55 02:24:00 Test Item Value Reference Range Interpretation Comments Monocytes # (test code 0.7 See_Comment [Aut omated message] The = Monocytes #) system which generated this result tra nsmitted reference range : <=0.8. The reference r natasha was not used to int erpret this result as normal/abnormal . [facility] HospitalUvkfvxuOPTKQUJGYO7188-51-38 02:24:00 Test Item Value Reference Range Interpretation Comments Basophils # (test code 0.1 See_Comment [Aut omated message] The = Basophils #) system which generated this result tra nsmitted reference range : <=0.2. The reference r natasha was not used to int erpret this result as normal/abnormal . [facility] HospitalMcgkvfkBUPKANSTMP0800-44-97 02:24:00 Test Item Value Reference Range Interpretation Comments Eosinophils # (test code 0.1 See_Comment [A utomated message] The = Eosinophils #) system whic h generated this result tra nsmitted reference range : <=0.5. The reference r natasha was not used to int erpret this result as normal/abnormal . [facility] HospitalJndskiiIHGEHEAFBJ3512-39-76 02:24:00 Test Item Value Reference Range Interpretation Comments Segs (test code = Segs) 72.1 45.0-75.0 [facility] HospitalYeuefhgCQCJYFGXGG6369-99-55 02:24:00 Test Item Value Reference Range Interpretation Comments Lymphocytes (test code = Lymphocytes) 20.2 20.0-40.0 [facility] HospitalFjmveipAGDVGZIPHP0699-77-17 02:24:00 Test Item Value Reference Range Interpretation Comments Monocytes (test code = Monocytes) 6.1 2.0-12.0 [facility] HospitalSpwlcavMJFCFLKDOW7805-10-20 02:24:00 Test Item Value Reference Range Interpretation Comments Segs-Bands # (test code = Segs-Bands #) 8.2 1.5-8.1 [facility] HospitalLybbpgsWMKOMELCFN2998-65-04 02:24:00 Test Item Value Reference Range Interpretation Comments Eosinophils (test code = 0.9 See_Comment [A utomated message] The Eosinophils) system which ge nerated this result tra nsmitted reference range : <=4.0. The reference r natasha was not used to int erpret this result as normal/abnormal . [facility] HospitalQplgqtnYQNHHBSVUO9868-71-22 02:24:00 Test Item Value Reference Range Interpretation Comments Basophils (test code = 0.7 See_Comment [Aut omated message] The Basophils) system which ge nerated this result tra nsmitted reference range : <=1.0. The reference r natasha was not used to int erpret this result as normal/abnormal . [facility] HospitalUhzhevjPUQCVQHEOB7040-30-62 02:24:00 Test Item Value Reference Range Interpretation Comments Lymphocytes # (test code = Lymphocytes 2.3 1.0-5.5 #) [facility] HospitalTrfkbyvACBCCQNAWR2253-57-32 02:24:00 Test Item Value Reference Range Interpretation Comments RBC Morph (test code = Normal (11/18/16 8:24 RBC Morph) PM) [facility] HospitalTuqsjtxKYUNKEBYVJ5834-06-82 02:24:00 Test Item Value Reference Range Interpretation Comments Plt Morph (test code = Normal (11/18/16 8:24 Plt Morph) PM) [facility] HospitalSxoqjrkNJBWNYTMIQ8799-86-23 02:24:00 Test Item Value Reference Range Interpretation Comments Hgb (test code = Hgb) 15.2 14.0-18.0 [facility] HospitalSmglijgQEIALWIQNE5972-38-25 02:24:00 Test Item Value Reference Range Interpretation Comments WBC (test code = WBC) 11.3 3.7-10.4 [facility] HospitalGmdtkldPPDGEDQHEK9420-75-59 02:24:00 Test Item Value Reference Range Interpretation Comments Hct (test code = Hct) 43.2 42.0-54.0 [facility] HospitalKjstislDQYHVBISMX5676-99-00 02:24:00 Test Item Value Reference Range Interpretation Comments MCHC (test code = MCHC) 35.1 32.0-36.0 [facility] HospitalYawbszcHOULMHCJXO3186-34-35 02:24:00 Test Item Value Reference Range Interpretation Comments RBC (test code = RBC) 4.57 4.70-6.10 [facility] HospitalFsghvsbKEQTLBXSTY9730-95-15 02:24:00 Test Item Value Reference Range Interpretation Comments MCV (test code = MCV) 94.6 80.0-94.0 [facility] HospitalIgqfpvhRQELBOOIDM4083-97-88 02:24:00 Test Item Value Reference Range Interpretation Comments RDW (test code = RDW) 12.5 11.5-14.5 [facility] HospitalQoqoxghNZSNOLOIBH8824-05-66 02:24:00 Test Item Value Reference Range Interpretation Comments MCH (test code = MCH) 33.2 pg 27.0-31.0 [facility] HospitalQxjsaibVZPQJKBSQI9264-08-04 02:24:00 Test Item Value Reference Range Interpretation Comments MPV (test code = MPV) 6.6 7.4-10.4 [facility] HospitalQcylltfJTBSJEWCBD1962-95-86 02:24:00 Test Item Value Reference Range Interpretation Comments Platelet (test code = Platelet) 231 133-450 [facility] HospitalTssfrsaCOJKLLTNIV7410-80-63 02:24:00 Test Item Value Reference Range Interpretation Comments PT (test code = PT) 13.1 s 12.0-14.7 [facility] HospitalBsldlmoRUXNSLBGYX7770-81-55 02:24:00 Test Item Value Reference Range Interpretation Comments INR (test code = INR) 0.97 0.85-1.17 [facility] HospitalNybdzjzJKOXGDOJGQ7909-62-08 02:24:00 Test Item Value Reference Range Interpretation Comments PTT (test code = PTT) 27.1 s 22.9-35.8 [facility] [id number] 02:24:00 Test Item Value Reference Range Interpretation Comments ABO/Rh (test code = ABO/Rh) O NEG [facility] [employer] [id number] 02:24:00 Test Item Value Reference Range Interpretation Comments Antibody Scrn (test Negative (11/18/16 8:24 code = Antibody Scrn) PM) [facility] [id number] 02:24:00 Test Item Value Reference Range Interpretation Comments U Cocaine Scr (test Positive *ABN*(11/18/16 code = U Cocaine Scr) 8:24 PM) [facility] [id number] 02:24:00 Test Item Value Reference Range Interpretation Comments U Benzodia Scr (test Negative *NA*(11/18/16 code = U Benzodia Scr) 8:24 PM) [facility] [id number] 02:24:00 Test Item Value Reference Range Interpretation Comments U Amph Scr (test code Negative *NA*(11/18/16 = U Amph Scr) 8:24 PM) [facility] [id number] 02:24:00 Test Item Value Reference Range Interpretation Comments U Opiate Scr (test Positive *ABN*(11/18/16 code = U Opiate Scr) 8:24 PM) [facility] [id number] 02:24:00 Test Item Value Reference Range Interpretation Comments U Cannab Scr (test Negative *NA*(11/18/16 code = U Cannab Scr) 8:24 PM) [facility] [id number] 02:24:00 Test Item Value Reference Range Interpretation Comments U Ysabel Scr (test code Negative *NA*(11/18/16 = U Ysabel Scr) 8:24 PM) [facility] [id number] 02:24:00 Test Item Value Reference Range Interpretation Comments U Phencyc Scr (test Negative *NA*(11/18/16 code = U Phencyc Scr) 8:24 PM) [facility] [id number] 02:24:00 Test Item Value Reference Range Interpretation Comments UDS Note (test code = See Note (11/18/16 8:24 UDS Note) PM) [facility] [id number] 02:24:00 Test Item Value Reference Range Interpretation Comments U Propoxyph Scr (test Negative *NA*(11/18/16 code = U Propoxyph Scr) 8:24 PM) [facility]2017-02-19 02:24:00 Test Item Value Reference Range Interpretation Comments U Methadone Scr (test Negative *NA*(11/18/16 code = U Methadone Scr) 8:24 PM) [facility] HospitalCopzmwoASNEOYARTP3315-30-12 02:24:00 Test Item Value Reference Range Interpretation Comments Monocytes # (test code 0.7 See_Comment [Aut omated message] The = Monocytes #) system which generated this result tra nsmitted reference range : <=0.8. The reference r natasha was not used to int erpret this result as normal/abnormal . [facility] HospitalJzqsmknUBGXNONTOE3192-28-20 02:24:00 Test Item Value Reference Range Interpretation Comments Basophils # (test code 0.1 See_Comment [Aut omated message] The = Basophils #) system which generated this result tra nsmitted reference range : <=0.2. The reference r natasha was not used to int erpret this result as normal/abnormal . [facility] HospitalOcrysceFFWWOXSIQT4583-64-41 02:24:00 Test Item Value Reference Range Interpretation Comments Eosinophils # (test code 0.1 See_Comment [A utomated message] The = Eosinophils #) system whic h generated this result tra nsmitted reference range : <=0.5. The reference r natasha was not used to int erpret this result as normal/abnormal . [facility] HospitalSieekofTIPULUEGNS5894-11-33 02:24:00 Test Item Value Reference Range Interpretation Comments Segs (test code = Segs) 72.1 45.0-75.0 [facility] HospitalShjcqziFANIJFGKWW1240-81-63 02:24:00 Test Item Value Reference Range Interpretation Comments Lymphocytes (test code = Lymphocytes) 20.2 20.0-40.0 [facility] HospitalPrytuaaXZVGRRIIHE3867-91-43 02:24:00 Test Item Value Reference Range Interpretation Comments Monocytes (test code = Monocytes) 6.1 2.0-12.0 [facility] HospitalLugwvogJZMSSTPUQE9360-11-56 02:24:00 Test Item Value Reference Range Interpretation Comments Segs-Bands # (test code = Segs-Bands #) 8.2 1.5-8.1 [facility] HospitalYgtioznOKFIQEYRUQ7695-89-27 02:24:00 Test Item Value Reference Range Interpretation Comments Eosinophils (test code = 0.9 See_Comment [A utomated message] The Eosinophils) system which ge nerated this result tra nsmitted reference range : <=4.0. The reference r natasha was not used to int erpret this result as normal/abnormal . [facility] HospitalHlejlveVIRNCZBDPC7216-75-71 02:24:00 Test Item Value Reference Range Interpretation Comments Basophils (test code = 0.7 See_Comment [Aut omated message] The Basophils) system which ge nerated this result tra nsmitted reference range : <=1.0. The reference r natasha was not used to int erpret this result as normal/abnormal . [facility] HospitalHsbetwyGGYOXHFMGZ6615-34-81 02:24:00 Test Item Value Reference Range Interpretation Comments Lymphocytes # (test code = Lymphocytes 2.3 1.0-5.5 #) [facility] HospitalQmuogobQUIEKCXKNT4611-39-89 02:24:00 Test Item Value Reference Range Interpretation Comments RBC Morph (test code = Normal (11/18/16 8:24 RBC Morph) PM) [facility] HospitalCeuubakYGWADTHRXT2222-58-50 02:24:00 Test Item Value Reference Range Interpretation Comments Plt Morph (test code = Normal (11/18/16 8:24 Plt Morph) PM) [facility] HospitalAhxusoqFYQAVDOGOU0671-37-54 02:24:00 Test Item Value Reference Range Interpretation Comments Hgb (test code = Hgb) 15.2 14.0-18.0 [facility] HospitalNsvqyydNFJEEOKCGO1964-48-31 02:24:00 Test Item Value Reference Range Interpretation Comments WBC (test code = WBC) 11.3 3.7-10.4 [facility] HospitalWbmhybqZUQCCEEPCT0659-72-08 02:24:00 Test Item Value Reference Range Interpretation Comments Hct (test code = Hct) 43.2 42.0-54.0 [facility] HospitalPzkelvpGFBLNRMZRW7493-12-32 02:24:00 Test Item Value Reference Range Interpretation Comments MCHC (test code = MCHC) 35.1 32.0-36.0 [facility] HospitalJxfpcorGXGWUCCKEM2458-09-07 02:24:00 Test Item Value Reference Range Interpretation Comments RBC (test code = RBC) 4.57 4.70-6.10 [facility] HospitalCjjgnepCHWOUXSPIY9771-61-70 02:24:00 Test Item Value Reference Range Interpretation Comments MCV (test code = MCV) 94.6 80.0-94.0 [facility] CenterNunlvhmTYAZEBZEOW7921-90-01 02:24:00 Test Item Value Reference Range Interpretation Comments RDW (test code = RDW) 12.5 11.5-14.5 [facility] CenterRrxjbonKPBEJXXOMT5085-35-94 02:24:00 Test Item Value Reference Range Interpretation Comments MCH (test code = MCH) 33.2 pg 27.0-31.0 [facility] CenterKwknkjkWOLJEPXSJD2138-41-78 02:24:00 Test Item Value Reference Range Interpretation Comments MPV (test code = MPV) 6.6 7.4-10.4 [facility] CenterEucxgzjOWWGFRHDCQ9641-02-68 02:24:00 Test Item Value Reference Range Interpretation Comments Platelet (test code = Platelet) 231 133-450 [facility] CenterGqilswnLYLRJKYIXZ6379-87-59 02:24:00 Test Item Value Reference Range Interpretation Comments PT (test code = PT) 13.1 s 12.0-14.7 [facility] CenterYdjizrqYIMDJRXJZW6719-22-31 02:24:00 Test Item Value Reference Range Interpretation Comments INR (test code = INR) 0.97 0.85-1.17 [facility] CenterCfbjinyMCPALNLWEV8181-82-15 02:24:00 Test Item Value Reference Range Interpretation Comments PTT (test code = PTT) 27.1 s 22.9-35.8 [facility] ClubAcrinta FBSJCCT5685-03-75 02:24:00 Test Item Value Reference Range Interpretation Comments ABO/Rh (test code = ABO/Rh) O NEG [facility] [employer] [id number] 02:24:00 Test Item Value Reference Range Interpretation Comments Antibody Scrn (test Negative (11/18/16 8:24 code = Antibody Scrn) PM) [facility] ClubBO.LT JWPMST3057-55-51 02:24:00 Test Item Value Reference Range Interpretation Comments U Cocaine Scr (test Positive *ABN*(11/18/16 code = U Cocaine Scr) 8:24 PM) [facility] LFVNKH5898-09-05 02:24:00 Test Item Value Reference Range Interpretation Comments U Benzodia Scr (test Negative *NA*(11/18/16 code = U Benzodia Scr) 8:24 PM) [facility] [id number] 02:24:00 Test Item Value Reference Range Interpretation Comments U Amph Scr (test code Negative *NA*(11/18/16 = U Amph Scr) 8:24 PM) [facility] [id number] 02:24:00 Test Item Value Reference Range Interpretation Comments U Opiate Scr (test Positive *ABN*(11/18/16 code = U Opiate Scr) 8:24 PM) [facility] [id number] 02:24:00 Test Item Value Reference Range Interpretation Comments U Cannab Scr (test Negative *NA*(11/18/16 code = U Cannab Scr) 8:24 PM) [facility] [id number] 02:24:00 Test Item Value Reference Range Interpretation Comments U Ysabel Scr (test code Negative *NA*(11/18/16 = U Ysabel Scr) 8:24 PM) [facility] [id number] 02:24:00 Test Item Value Reference Range Interpretation Comments U Phencyc Scr (test Negative *NA*(11/18/16 code = U Phencyc Scr) 8:24 PM) [facility] [id number] 02:24:00 Test Item Value Reference Range Interpretation Comments UDS Note (test code = See Note (11/18/16 8:24 UDS Note) PM) [facility] [id number] 02:24:00 Test Item Value Reference Range Interpretation Comments U Propoxyph Scr (test Negative *NA*(11/18/16 code = U Propoxyph Scr) 8:24 PM) [facility] [id number] 02:24:00 Test Item Value Reference Range Interpretation Comments U Methadone Scr (test Negative *NA*(11/18/16 code = U Methadone Scr) 8:24 PM) [facility] JolpbhtNPBWUODYQO3881-07-17 02:24:00 Test Item Value Reference Range Interpretation Comments Monocytes # (test code 0.7 See_Comment [Aut omated message] The = Monocytes #) system which generated this result tra nsmitted reference range : <=0.8. The reference r natasha was not used to int erpret this result as normal/abnormal . [facility] NmgwynqNXQAZBJEFQ1966-95-79 02:24:00 Test Item Value Reference Range Interpretation Comments Basophils # (test code 0.1 See_Comment [Aut omated message] The = Basophils #) system which generated this result tra nsmitted reference range : <=0.2. The reference r natasha was not used to int erpret this result as normal/abnormal . [facility] HospitalNfzsiobUYLLOSGBWW2388-09-22 02:24:00 Test Item Value Reference Range Interpretation Comments Eosinophils # (test code 0.1 See_Comment [A utomated message] The = Eosinophils #) system wh h generated this result tra nsmitted reference range : <=0.5. The reference r natasha was not used to int erpret this result as normal/abnormal . [facility] HospitalCaltftbJURGSPEZKJ7605-34-18 02:24:00 Test Item Value Reference Range Interpretation Comments Segs (test code = Segs) 72.1 45.0-75.0 [facility] HospitalNmkqoupJRNKBHSTFI6491-21-06 02:24:00 Test Item Value Reference Range Interpretation Comments Lymphocytes (test code = Lymphocytes) 20.2 20.0-40.0 [facility] HospitalZobtsgkRJQJQRTKPK6455-25-01 02:24:00 Test Item Value Reference Range Interpretation Comments Monocytes (test code = Monocytes) 6.1 2.0-12.0 [facility] HospitalVkncvejRJREMTKJSD3615-94-34 02:24:00 Test Item Value Reference Range Interpretation Comments Segs-Bands # (test code = Segs-Bands #) 8.2 1.5-8.1 [facility] HospitalFzxyoxcCMTPOFDMKJ4434-20-62 02:24:00 Test Item Value Reference Range Interpretation Comments Eosinophils (test code = 0.9 See_Comment [A utomated message] The Eosinophils) system which ge nerated this result tra nsmitted reference range : <=4.0. The reference r natasha was not used to int erpret this result as normal/abnormal . [facility] HospitalWmnwdzvDODFCOHWAE6023-03-63 02:24:00 Test Item Value Reference Range Interpretation Comments Basophils (test code = 0.7 See_Comment [Aut omated message] The Basophils) system which ge nerated this result tra nsmitted reference range : <=1.0. The reference r natasha was not used to int erpret this result as normal/abnormal . [facility] HospitalWasgudaBGLJNBDKHG6381-38-48 02:24:00 Test Item Value Reference Range Interpretation Comments Lymphocytes # (test code = Lymphocytes 2.3 1.0-5.5 #) [facility] HospitalYjozpzxJKKXAUITJF0110-33-78 02:24:00 Test Item Value Reference Range Interpretation Comments RBC Morph (test code = Normal (11/18/16 8:24 RBC Morph) PM) [facility] HospitalWnrnkhbDNOZDXKDQI0436-47-55 02:24:00 Test Item Value Reference Range Interpretation Comments Plt Morph (test code = Normal (11/18/16 8:24 Plt Morph) PM) [facility] HospitalZqohdisHTXCMEISFB9064-97-75 02:24:00 Test Item Value Reference Range Interpretation Comments Hgb (test code = Hgb) 15.2 14.0-18.0 [facility] HospitalRcsfrmnQAPCCNIUPM5119-09-84 02:24:00 Test Item Value Reference Range Interpretation Comments WBC (test code = WBC) 11.3 3.7-10.4 [facility] HospitalAleknsdJYPLCUNOUC2856-25-84 02:24:00 Test Item Value Reference Range Interpretation Comments Hct (test code = Hct) 43.2 42.0-54.0 [facility] HospitalVldisfmHBXSPFYPXC6980-70-88 02:24:00 Test Item Value Reference Range Interpretation Comments MCHC (test code = MCHC) 35.1 32.0-36.0 [facility] HospitalPpawtzuXEJLGTJZGK8329-79-17 02:24:00 Test Item Value Reference Range Interpretation Comments RBC (test code = RBC) 4.57 4.70-6.10 [facility] HospitalUalnjerYGCDNXHUMK8846-27-12 02:24:00 Test Item Value Reference Range Interpretation Comments MCV (test code = MCV) 94.6 80.0-94.0 [facility] HospitalQzufdqrZERUWEFSIX2814-46-37 02:24:00 Test Item Value Reference Range Interpretation Comments RDW (test code = RDW) 12.5 11.5-14.5 [facility] HospitalGggfwmuDEUAPVUVQI4446-02-53 02:24:00 Test Item Value Reference Range Interpretation Comments MCH (test code = MCH) 33.2 pg 27.0-31.0 [facility] HospitalJhurcybCCZAWUTZXI1641-80-42 02:24:00 Test Item Value Reference Range Interpretation Comments MPV (test code = MPV) 6.6 7.4-10.4 [facility] HospitalCvbgpgpJBVUMHWZIM9984-63-67 02:24:00 Test Item Value Reference Range Interpretation Comments Platelet (test code = Platelet) 231 761-450 [facility] AxdpwzhBYYAAULSDM6759-48-77 02:24:00 Test Item Value Reference Range Interpretation Comments PT (test code = PT) 13.1 s 12.0-14.7 [facility] KiczehpXLIARONCFG2264-69-47 02:24:00 Test Item Value Reference Range Interpretation Comments INR (test code = INR) 0.97 0.85-1.17 [facility] QfaryvmOIGGQSMYBN9335-44-93 02:24:00 Test Item Value Reference Range Interpretation Comments PTT (test code = PTT) 27.1 s 22.9-35.8 [employer] NGGRQND0594-59-89 02:24:00 Test Item Value Reference Range Interpretation Comments ABO/Rh (test code = ABO/Rh) O NEG [facility] [facility] [employer] [id number] 02:24:00 Test Item Value Reference Range Interpretation Comments Antibody Scrn (test Negative (11/18/16 8:24 code = Antibody Scrn) PM) [facility] [employer] [id number] 02:24:00 Test Item Value Reference Range Interpretation Comments U Cocaine Scr (test Positive *ABN*(11/18/16 code = U Cocaine Scr) 8:24 PM) [facility] [employer] [id number] 02:24:00 Test Item Value Reference Range Interpretation Comments U Benzodia Scr (test Negative *NA*(11/18/16 code = U Benzodia Scr) 8:24 PM) [facility] [employer] [id number] 02:24:00 Test Item Value Reference Range Interpretation Comments U Amph Scr (test code Negative *NA*(11/18/16 = U Amph Scr) 8:24 PM) [facility] [employer] [id number] 02:24:00 Test Item Value Reference Range Interpretation Comments U Opiate Scr (test Positive *ABN*(11/18/16 code = U Opiate Scr) 8:24 PM) [facility] [employer] [id number] 02:24:00 Test Item Value Reference Range Interpretation Comments U Cannab Scr (test Negative *NA*(11/18/16 code = U Cannab Scr) 8:24 PM) [facility] [id number] 02:24:00 Test Item Value Reference Range Interpretation Comments U Ysabel Scr (test code Negative *NA*(11/18/16 = U Ysabel Scr) 8:24 PM) [facility] [id number] 02:24:00 Test Item Value Reference Range Interpretation Comments U Phencyc Scr (test Negative *NA*(11/18/16 code = U Phencyc Scr) 8:24 PM) [facility] [id number] 02:24:00 Test Item Value Reference Range Interpretation Comments UDS Note (test code = See Note (11/18/16 8:24 UDS Note) PM) [facility] [id number] 02:24:00 Test Item Value Reference Range Interpretation Comments U Propoxyph Scr (test Negative *NA*(11/18/16 code = U Propoxyph Scr) 8:24 PM) [facility] [id number] 02:24:00 Test Item Value Reference Range Interpretation Comments U Methadone Scr (test Negative *NA*(11/18/16 code = U Methadone Scr) 8:24 PM) [id number] 02:24:00 Test Item Value Reference Range Interpretation Comments Monocytes # (test code 0.7 See_Comment [Aut omated message] The = Monocytes #) system which generated this result tra nsmitted reference range : <=0.8. The reference r natasha was not used to int erpret this result as normal/abnormal . [facility] HospitalPscxwscNQQMEIHPMQ8084-95-34 02:24:00 Test Item Value Reference Range Interpretation Comments Basophils # (test code 0.1 See_Comment [Aut omated message] The = Basophils #) system which generated this result tra nsmitted reference range : <=0.2. The reference r natasha was not used to int erpret this result as normal/abnormal . [facility] Hos[id number] 02:24:00 Test Item Value Reference Range Interpretation Comments Eosinophils # (test code 0.1 See_Comment [A utomated message] The = Eosinophils #) system whic h generated this result tra nsmitted reference range : <=0.5. The reference r natasha was not used to int erpret this result as normal/abnormal . [facility] HospitalTumgxlyHHNBQRDFFA8204-91-58 02:24:00 Test Item Value Reference Range Interpretation Comments Segs (test code = Segs) 72.1 45.0-75.0 [facility] HospitalGtfwjbnCBOXQXEKNB2789-11-27 02:24:00 Test Item Value Reference Range Interpretation Comments Lymphocytes (test code = Lymphocytes) 20.2 20.0-40.0 [facility] HospitalF[id number] 02:24:00 Test Item Value Reference Range Interpretation Comments Monocytes (test code = Monocytes) 6.1 2.0-12.0 [facility] HospitalEvngqgeQXXHTTMPXY7366-58-17 02:24:00 Test Item Value Reference Range Interpretation Comments Segs-Bands # (test code = Segs-Bands #) 8.2 1.5-8.1 [facility] Hospit[id number] 02:24:00 Test Item Value Reference Range Interpretation Comments Eosinophils (test code = 0.9 See_Comment [A utomated message] The Eosinophils) system which ge nerated this result tra nsmitted reference range : <=4.0. The reference r natasha was not used to int erpret this result as normal/abnormal . [facility] HospitalDyuvzbzILKONKCMPT2913-07-97 02:24:00 Test Item Value Reference Range Interpretation Comments Basophils (test code = 0.7 See_Comment [Aut omated message] The Basophils) system which ge nerated this result tra nsmitted reference range : <=1.0. The reference r natasha was not used to int erpret this result as normal/abnormal . [facility] HospitalUbgyzufJSGYCREAOM4521-07-37 02:24:00 Test Item Value Reference Range Interpretation Comments Lymphocytes # (test code = Lymphocytes 2.3 1.0-5.5 #) [facility] HospitalMlmoydqFKFATMLMRC5162-35-01 02:24:00 Test Item Value Reference Range Interpretation Comments RBC Morph (test code = Normal (11/18/16 8:24 RBC Morph) PM) [facility] HospitalSiyhrzcNKNSTUJBCN4366-17-15 02:24:00 Test Item Value Reference Range Interpretation Comments Plt Morph (test code = Normal (11/18/16 8:24 Plt Morph) PM) [facility] HospitalPeqcfqzMTOZOUKJDU6557-39-17 02:24:00 Test Item Value Reference Range Interpretation Comments Hgb (test code = Hgb) 15.2 14.0-18.0 [facility] HospitalHdlqujpMWBLGLUVJF5602-45-26 02:24:00 Test Item Value Reference Range Interpretation Comments WBC (test code = WBC) 11.3 3.7-10.4 [facility] HospitalWubwwzpXWJSBTGXUP0589-40-08 02:24:00 Test Item Value Reference Range Interpretation Comments Hct (test code = Hct) 43.2 42.0-54.0 [facility] HospitalOwxzugsSYPXSSDNEK6021-99-01 02:24:00 Test Item Value Reference Range Interpretation Comments MCHC (test code = MCHC) 35.1 32.0-36.0 [facility] HospitalUoevxmjFOZBBWBPGI5765-35-82 02:24:00 Test Item Value Reference Range Interpretation Comments RBC (test code = RBC) 4.57 4.70-6.10 [facility] HospitalChdomlfDBJLQCBOUQ0474-16-05 02:24:00 Test Item Value Reference Range Interpretation Comments MCV (test code = MCV) 94.6 80.0-94.0 [facility] HospitalEceqrnpOUVXMFWYGU3390-41-04 02:24:00 Test Item Value Reference Range Interpretation Comments RDW (test code = RDW) 12.5 11.5-14.5 [facility] HospitalRijhoisHCHBFHCNPE0853-59-88 02:24:00 Test Item Value Reference Range Interpretation Comments MCH (test code = MCH) 33.2 pg 27.0-31.0 [facility] HospitalQvckhseNZFDKHTPWN3689-10-55 02:24:00 Test Item Value Reference Range Interpretation Comments MPV (test code = MPV) 6.6 7.4-10.4 [facility] HospitalQztsqnvIYBEXZIYEE5604-80-24 02:24:00 Test Item Value Reference Range Interpretation Comments Platelet (test code = Platelet) 231 133-450 [facility] HospitalReeewnbBFUVBSEKPT9464-58-74 02:24:00 Test Item Value Reference Range Interpretation Comments PT (test code = PT) 13.1 s 12.0-14.7 [facility] HospitalUwupzmvRTDMVQTHNR6915-95-36 02:24:00 Test Item Value Reference Range Interpretation Comments INR (test code = INR) 0.97 0.85-1.17 [facility] HospitalZyxbbhnTNSMZQRGZI7276-07-79 02:24:00 Test Item Value Reference Range Interpretation Comments PTT (test code = PTT) 27.1 s 22.9-35.8 [facility] [employer] [id number] 02:24:00 Test Item Value Reference Range Interpretation Comments ABO/Rh (test code = ABO/Rh) O NEG [facility] [id number] 02:24:00 Test Item Value Reference Range Interpretation Comments Antibody Scrn (test Negative (11/18/16 8:24 code = Antibody Scrn) PM) [facility] [id number] 02:24:00 Test Item Value Reference Range Interpretation Comments U Cocaine Scr (test Positive *ABN*(11/18/16 code = U Cocaine Scr) 8:24 PM) [facility] [id number] 02:24:00 Test Item Value Reference Range Interpretation Comments U Benzodia Scr (test Negative *NA*(11/18/16 code = U Benzodia Scr) 8:24 PM) [facility] [id number] 02:24:00 Test Item Value Reference Range Interpretation Comments U Amph Scr (test code Negative *NA*(11/18/16 = U Amph Scr) 8:24 PM) [facility] [id number] 02:24:00 Test Item Value Reference Range Interpretation Comments U Opiate Scr (test Positive *ABN*(11/18/16 code = U Opiate Scr) 8:24 PM) [facility] [id number] 02:24:00 Test Item Value Reference Range Interpretation Comments U Cannab Scr (test Negative *NA*(11/18/16 code = U Cannab Scr) 8:24 PM) [facility] [id number] 02:24:00 Test Item Value Reference Range Interpretation Comments U Ysabel Scr (test code Negative *NA*(11/18/16 = U Ysabel Scr) 8:24 PM) [facility] [id number] 02:24:00 Test Item Value Reference Range Interpretation Comments U Phencyc Scr (test Negative *NA*(11/18/16 code = U Phencyc Scr) 8:24 PM) [facility] [id number] 02:24:00 Test Item Value Reference Range Interpretation Comments UDS Note (test code = See Note (11/18/16 8:24 UDS Note) PM) [facility] [id number] 02:24:00 Test Item Value Reference Range Interpretation Comments U Propoxyph Scr (test Negative *NA*(11/18/16 code = U Propoxyph Scr) 8:24 PM) [facility] [id number] 02:24:00 Test Item Value Reference Range Interpretation Comments U Methadone Scr (test Negative *NA*(11/18/16 code = U Methadone Scr) 8:24 PM) [facility] HospitalRtgyrvhEMIQJNVDLM9739-20-71 02:24:00 Test Item Value Reference Range Interpretation Comments Monocytes # (test code 0.7 See_Comment [Aut omated message] The = Monocytes #) system which generated this result tra nsmitted reference range : <=0.8. The reference r natasha was not used to int erpret this result as normal/abnormal . [facility] HospitalNcnfluhKNMMICBAZQ9783-19-16 02:24:00 Test Item Value Reference Range Interpretation Comments Basophils # (test code 0.1 See_Comment [Aut omated message] The = Basophils #) system which generated this result tra nsmitted reference range : <=0.2. The reference r natasha was not used to int erpret this result as normal/abnormal . [facility] HospitalBmuhdgcOYDJIJUJSY5119-41-61 02:24:00 Test Item Value Reference Range Interpretation Comments Eosinophils # (test code 0.1 See_Comment [A utomated message] The = Eosinophils #) system whic h generated this result tra nsmitted reference range : <=0.5. The reference r natasha was not used to int erpret this result as normal/abnormal . [facility] HospitalGuuwyseDYUDNGBPQU2351-13-71 02:24:00 Test Item Value Reference Range Interpretation Comments Segs (test code = Segs) 72.1 45.0-75.0 [facility] HospitalYrdrbdzFEHYWCMVLW8829-93-88 02:24:00 Test Item Value Reference Range Interpretation Comments Lymphocytes (test code = Lymphocytes) 20.2 20.0-40.0 [facility] HospitalTqqkybiIWJRRXPQKF2279-72-84 02:24:00 Test Item Value Reference Range Interpretation Comments Monocytes (test code = Monocytes) 6.1 2.0-12.0 [facility] HospitalMejlfaqOQEGNDVQLL7395-05-32 02:24:00 Test Item Value Reference Range Interpretation Comments Segs-Bands # (test code = Segs-Bands #) 8.2 1.5-8.1 [facility] HospitalZcybxtsUBVSCGIPNB5860-92-40 02:24:00 Test Item Value Reference Range Interpretation Comments Eosinophils (test code = 0.9 See_Comment [A utomated message] The Eosinophils) system which ge nerated this result tra nsmitted reference range : <=4.0. The reference r natasha was not used to int erpret this result as normal/abnormal . [facility] HospitalTlymzxxRPPKKNIZMV3275-70-21 02:24:00 Test Item Value Reference Range Interpretation Comments Basophils (test code = 0.7 See_Comment [Aut omated message] The Basophils) system which ge nerated this result tra nsmitted reference range : <=1.0. The reference r natasha was not used to int erpret this result as normal/abnormal . [facility] HospitalMcdekfyUJFUNIAZUY0684-91-85 02:24:00 Test Item Value Reference Range Interpretation Comments Lymphocytes # (test code = Lymphocytes 2.3 1.0-5.5 #) [facility] HospitalIeycmkhQNYMHJHOCA0186-53-05 02:24:00 Test Item Value Reference Range Interpretation Comments RBC Morph (test code = Normal (11/18/16 8:24 RBC Morph) PM) [facility] HospitalNkotoyzSFETTJRAKH2798-84-19 02:24:00 Test Item Value Reference Range Interpretation Comments Plt Morph (test code = Normal (11/18/16 8:24 Plt Morph) PM) [facility] HospitalVksznvuLWSYEDENCY3173-58-62 02:24:00 Test Item Value Reference Range Interpretation Comments Hgb (test code = Hgb) 15.2 14.0-18.0 [facility] HospitalYtdhlbzAUXDCRWYSN2101-46-28 02:24:00 Test Item Value Reference Range Interpretation Comments WBC (test code = WBC) 11.3 3.7-10.4 [facility] HospitalGgmhpexKGOWPNVWOJ0596-17-37 02:24:00 Test Item Value Reference Range Interpretation Comments Hct (test code = Hct) 43.2 42.0-54.0 [facility] HospitalRndxkbdDAMJEUNOLB6349-12-88 02:24:00 Test Item Value Reference Range Interpretation Comments MCHC (test code = MCHC) 35.1 32.0-36.0 [facility] HospitalGdkoeehHJUQCTPROX6651-47-05 02:24:00 Test Item Value Reference Range Interpretation Comments RBC (test code = RBC) 4.57 4.70-6.10 [facility] HospitalTxsmcimPZWZMYYIQW6097-37-43 02:24:00 Test Item Value Reference Range Interpretation Comments MCV (test code = MCV) 94.6 80.0-94.0 [facility] HospitalLkzkfstAWVYIUMUWL3775-42-58 02:24:00 Test Item Value Reference Range Interpretation Comments RDW (test code = RDW) 12.5 11.5-14.5 [facility] HospitalNorwtbzPZDIDMENXR1246-36-19 02:24:00 Test Item Value Reference Range Interpretation Comments MCH (test code = MCH) 33.2 pg 27.0-31.0 [facility] HospitalXdwftmaYDASTVILKX5485-24-50 02:24:00 Test Item Value Reference Range Interpretation Comments MPV (test code = MPV) 6.6 7.4-10.4 [facility] HospitalIlacjllQZSJOTSXSP6303-51-80 02:24:00 Test Item Value Reference Range Interpretation Comments Platelet (test code = Platelet) 231 133-450 [facility] HospitalDzxmpeoMJZEITFUWI4078-47-07 02:24:00 Test Item Value Reference Range Interpretation Comments PT (test code = PT) 13.1 s 12.0-14.7 [facility] HospitalDwemlilTPDSFYFCST9117-26-64 02:24:00 Test Item Value Reference Range Interpretation Comments INR (test code = INR) 0.97 0.85-1.17 [facility] CenterXattiwfXYCKXVBSSB3999-09-78 02:24:00 Test Item Value Reference Range Interpretation Comments PTT (test code = PTT) 27.1 s 22.9-35.8 [facility] ClubAcrinta [id number] 02:24:00 Test Item Value Reference Range Interpretation Comments ABO/Rh (test code = ABO/Rh) O NEG [facility] ClubAcrinta [id number] 02:24:00 Test Item Value Reference Range Interpretation Comments Antibody Scrn (test Negative (11/18/16 8:24 code = Antibody Scrn) PM) [facility] CenterComm[facility] Technologies [id number] 02:24:00 Test Item Value Reference Range Interpretation Comments U Cocaine Scr (test Positive *ABN*(11/18/16 code = U Cocaine Scr) 8:24 PM) [facility] [id number] 02:24:00 Test Item Value Reference Range Interpretation Comments U Benzodia Scr (test Negative *NA*(11/18/16 code = U Benzodia Scr) 8:24 PM) [facility] [id number] 02:24:00 Test Item Value Reference Range Interpretation Comments U Amph Scr (test code Negative *NA*(11/18/16 = U Amph Scr) 8:24 PM) [facility] [id number] 02:24:00 Test Item Value Reference Range Interpretation Comments U Opiate Scr (test Positive *ABN*(11/18/16 code = U Opiate Scr) 8:24 PM) [facility] [id number] 02:24:00 Test Item Value Reference Range Interpretation Comments U Cannab Scr (test Negative *NA*(11/18/16 code = U Cannab Scr) 8:24 PM) [facility] [id number] 02:24:00 Test Item Value Reference Range Interpretation Comments U Ysabel Scr (test code Negative *NA*(11/18/16 = U Ysabel Scr) 8:24 PM) [facility] [id number] 02:24:00 Test Item Value Reference Range Interpretation Comments U Phencyc Scr (test Negative *NA*(11/18/16 code = U Phencyc Scr) 8:24 PM) [facility] [id number] 02:24:00 Test Item Value Reference Range Interpretation Comments UDS Note (test code = See Note (11/18/16 8:24 UDS Note) PM) [facility] [id number] 02:24:00 Test Item Value Reference Range Interpretation Comments U Propoxyph Scr (test Negative *NA*(11/18/16 code = U Propoxyph Scr) 8:24 PM) [facility] [id number] 02:24:00 Test Item Value Reference Range Interpretation Comments U Methadone Scr (test Negative *NA*(11/18/16 code = U Methadone Scr) 8:24 PM) [facility] CenterQfrfrozWKGGSDIAKW7238-18-12 02:24:00 Test Item Value Reference Range Interpretation Comments Monocytes # (test code 0.7 See_Comment [Aut omated message] The = Monocytes #) system which generated this result tra nsmitted reference range : <=0.8. The reference r natasha was not used to int erpret this result as normal/abnormal . [facility]TyucdjwWBYWGXDVHK2295-30-07 02:24:00 Test Item Value Reference Range Interpretation Comments Basophils # (test code 0.1 See_Comment [Aut omated message] The = Basophils #) system which generated this result tra nsmitted reference range : <=0.2. The reference r natasha was not used to int erpret this result as normal/abnormal . [facility] HospitalXwthywgXFLHBGFMOP9797-28-23 02:24:00 Test Item Value Reference Range Interpretation Comments Eosinophils # (test code 0.1 See_Comment [A utomated message] The = Eosinophils #) system whic h generated this result tra nsmitted reference range : <=0.5. The reference r natasha was not used to int erpret this result as normal/abnormal . [facility] HospitalTfpxvpoKKKKIDNCMP5130-67-94 02:24:00 Test Item Value Reference Range Interpretation Comments Segs (test code = Segs) 72.1 45.0-75.0 [facility] HospitalCgcmyejIIXXBLMSSZ7610-37-81 02:24:00 Test Item Value Reference Range Interpretation Comments Lymphocytes (test code = Lymphocytes) 20.2 20.0-40.0 [facility] HospitalBkbzsasCGDZCVACUS7503-29-75 02:24:00 Test Item Value Reference Range Interpretation Comments Monocytes (test code = Monocytes) 6.1 2.0-12.0 [facility] HospitalFzhtypmCHIDQDUOOP5142-52-07 02:24:00 Test Item Value Reference Range Interpretation Comments Segs-Bands # (test code = Segs-Bands #) 8.2 1.5-8.1 [facility] HospitalGzohvvbFHUSMUFZDY3686-01-84 02:24:00 Test Item Value Reference Range Interpretation Comments Eosinophils (test code = 0.9 See_Comment [A utomated message] The Eosinophils) system which ge nerated this result tra nsmitted reference range : <=4.0. The reference r natasha was not used to int erpret this result as normal/abnormal . [facility] HospitalBagortrMCWDCIIDZA5754-71-40 02:24:00 Test Item Value Reference Range Interpretation Comments Basophils (test code = 0.7 See_Comment [Aut omated message] The Basophils) system which ge nerated this result tra nsmitted reference range : <=1.0. The reference r natasha was not used to int erpret this result as normal/abnormal . [facility] HospitalZkoqblsQPTVBFOUAW0204-21-78 02:24:00 Test Item Value Reference Range Interpretation Comments Lymphocytes # (test code = Lymphocytes 2.3 1.0-5.5 #) [facility]2017-02-11 08:16:00 Test Item Value Reference Range Interpretation Comments Lactic Acid Lvl (test code = Lactic 1.5 0.5-2.2 Acid Lvl) [facility]2017-02-11 08:16:00 Test Item Value Reference Range Interpretation Comments Lactic Acid Lvl (test code = Lactic 1.5 0.5-2.2 Acid Lvl) [facility]2017-02-11 08:16:00 Test Item Value Reference Range Interpretation Comments Lactic Acid Lvl (test code = Lactic 1.5 0.5-2.2 Acid Lvl) [place] [id number] 08:16:00 Test Item Value Reference Range Interpretation Comments Lactic Acid Lvl (test code = Lactic 1.5 0.5-2.2 Acid Lvl) [facility]2017-02-11 08:16:00 Test Item Value Reference Range Interpretation Comments Lactic Acid Lvl (test code = Lactic 1.5 0.5-2.2 Acid Lvl) [facility]2017-02-11 08:16:00 Test Item Value Reference Range Interpretation Comments Lactic Acid Lvl (test code = Lactic 1.5 0.5-2.2 Acid Lvl) [facility]2017-02-11 08:16:00 Test Item Value Reference Range Interpretation Comments Lactic Acid Lvl (test code = Lactic 1.5 0.5-2.2 Acid Lvl) [facility]2017-02-11 03:15:00 Test Item Value Reference Range Interpretation Comments Lactic Acid Lvl (test code = Lactic 2.9 0.5-2.2 Acid Lvl) [facility]2017-02-11 03:15:00 Test Item Value Reference Range Interpretation Comments Lactic Acid Lvl (test code = Lactic 2.9 0.5-2.2 Acid Lvl) [facility]2017-02-11 03:15:00 Test Item Value Reference Range Interpretation Comments Lactic Acid Lvl (test code = Lactic 2.9 0.5-2.2 Acid Lvl) [facility]2017-02-11 03:15:00 Test Item Value Reference Range Interpretation Comments Lactic Acid Lvl (test code = Lactic 2.9 0.5-2.2 Acid Lvl) [place] [id number] 03:15:00 Test Item Value Reference Range Interpretation Comments Lactic Acid Lvl (test code = Lactic 2.9 0.5-2.2 Acid Lvl) [facility]2017-02-11 03:15:00 Test Item Value Reference Range Interpretation Comments Lactic Acid Lvl (test code = Lactic 2.9 0.5-2.2 Acid Lvl) [facility]2017-02-11 03:15:00 Test Item Value Reference Range Interpretation Comments Lactic Acid Lvl (test code = Lactic 2.9 0.5-2.2 Acid Lvl) [facility]2017-02-10 15:09:00 Test Item Value Reference Range Interpretation Comments Lactic Acid Lvl (test code = Lactic 3.9 0.5-2.2 Acid Lvl) [facility]2017-02-10 15:09:00 Test Item Value Reference Range Interpretation Comments Lactic Acid Lvl (test code = Lactic 3.9 0.5-2.2 Acid Lvl) [facility]2017-02-10 15:09:00 Test Item Value Reference Range Interpretation Comments Lactic Acid Lvl (test code = Lactic 3.9 0.5-2.2 Acid Lvl) [facility]2017-02-10 15:09:00 Test Item Value Reference Range Interpretation Comments Lactic Acid Lvl (test code = Lactic 3.9 0.5-2.2 Acid Lvl) [facility]2017-02-10 15:09:00 Test Item Value Reference Range Interpretation Comments Lactic Acid Lvl (test code = Lactic 3.9 0.5-2.2 Acid Lvl) [facility]2017-02-10 15:09:00 Test Item Value Reference Range Interpretation Comments Lactic Acid Lvl (test code = Lactic 3.9 0.5-2.2 Acid Lvl) [facility]2017-02-10 15:09:00 Test Item Value Reference Range Interpretation Comments Lactic Acid Lvl (test code = Lactic 3.9 0.5-2.2 Acid Lvl) [facility] HospitalQawxdxfCNRAQKLTIN7768-09-77 08:26:00 Test Item Value Reference Range Interpretation Comments INR (test code = INR) 1.12 0.85-1.17 [facility] HospitalZhderduSWDEUUKWZP2724-88-20 08:26:00 Test Item Value Reference Range Interpretation Comments PT (test code = PT) 14.6 s 12.0-14.7 [facility] HospitalHnemhkgEEAWTFPTUT7378-06-68 08:26:00 Test Item Value Reference Range Interpretation Comments INR (test code = INR) 1.12 0.85-1.17 [facility] HospitalSpnugmoOMLRMUBEJO6704-63-78 08:26:00 Test Item Value Reference Range Interpretation Comments PT (test code = PT) 14.6 s 12.0-14.7 [facility] HospitalKzmgpcgJWQNWLTKOI7782-70-56 08:26:00 Test Item Value Reference Range Interpretation Comments INR (test code = INR) 1.12 0.85-1.17 [facility] HospitalXomxyzzGYKWZLBXWA8000-46-50 08:26:00 Test Item Value Reference Range Interpretation Comments PT (test code = PT) 14.6 s 12.0-14.7 [facility] HospitalUcblrynBERINKHRJF2464-06-97 08:26:00 Test Item Value Reference Range Interpretation Comments INR (test code = INR) 1.12 0.85-1.17 [facility] HospitalMcyyxffXGOCICOWPF5910-16-54 08:26:00 Test Item Value Reference Range Interpretation Comments PT (test code = PT) 14.6 s 12.0-14.7 [id number] 08:26:00 Test Item Value Reference Range Interpretation Comments INR (test code = INR) 1.12 0.85-1.17 [id number] 08:26:00 Test Item Value Reference Range Interpretation Comments PT (test code = PT) 14.6 s 12.0-14.7 [id number] 08:26:00 Test Item Value Reference Range Interpretation Comments INR (test code = INR) 1.12 0.85-1.17 [id number] 08:26:00 Test Item Value Reference Range Interpretation Comments PT (test code = PT) 14.6 s 12.0-14.7 [id number] 08:26:00 Test Item Value Reference Range Interpretation Comments INR (test code = INR) 1.12 0.85-1.17 [id number] 08:26:00 Test Item Value Reference Range Interpretation Comments PT (test code = PT) 14.6 s 12.0-14.7 [facility] AND [id number] 07:15:02 Test Item Value Reference Range Interpretation Comments UA RBC (test code = 0-2 /HPF See_Comment [Automa sharri message] The UA RBC) system which ge nerated this result tra nsmitted reference range : <=2. The reference range was not used to interpr et this result as ahmet l/abnormal. [facility] AND [id number] 07:15:02 Test Item Value Reference Range Interpretation Comments UA WBC (test code = UA None Seen (11/10/16 1:15 WBC) AM) [facility] AND [id number] 07:15:02 Test Item Value Reference Range Interpretation Comments UA Sq Epi (test code = None Seen (11/10/16 1:15 UA Sq Epi) AM) [facility] AND [id number] 07:15:02 Test Item Value Reference Range Interpretation Comments UA Bacteria (test code = None Seen (11/10/16 UA Bacteria) 1:15 AM) [facility] AND [id number] 07:15:02 Test Item Value Reference Range Interpretation Comments UA Nitrite (test code Negative (11/10/16 1:15 = UA Nitrite) AM) [facility] AND [id number] 07:15:02 Test Item Value Reference Range Interpretation Comments UA Leuk Est (test Negative (11/10/16 1:15 code = UA Leuk Est) AM) [facility] AND [id number] 07:15:02 Test Item Value Reference Range Interpretation Comments UA Color (test code = Yellow *NA*(11/10/16 UA Color) 1:15 AM) [facility] AND [id number] 07:15:02 Test Item Value Reference Range Interpretation Comments UA pH (test code = UA pH) 5.5 1 5.0-8.0 [facility] AND [id number] 07:15:02 Test Item Value Reference Range Interpretation Comments UA Protein (test code Negative (11/10/16 1:15 = UA Protein) AM) [facility] AND [id number] 07:15:02 Test Item Value Reference Range Interpretation Comments UA Glucose (test code Negative (11/10/16 1:15 = UA Glucose) AM) [facility] AND [id number] 07:15:02 Test Item Value Reference Range Interpretation Comments UA Ketones (test code = UA Ketones) 15 mg/dL [facility] AND [id number] 07:15:02 Test Item Value Reference Range Interpretation Comments UA Bili (test code = Negative *NA*(11/10/16 UA Bili) 1:15 AM) [facility] AND [id number] 07:15:02 Test Item Value Reference Range Interpretation Comments UA Blood (test code = Negative (11/10/16 1:15 UA Blood) AM) [facility] AND [id number] 07:15:02 Test Item Value Reference Range Interpretation Comments UA Urobilinogen (test code = UA 0.2 0.1-1.0 Urobilinogen) [facility] AND [id number] 07:15:02 Test Item Value Reference Range Interpretation Comments UA Turbidity (test code = Clear (11/10/16 1:15 UA Turbidity) AM) [facility] AND [id number] 07:15:02 Test Item Value Reference Range Interpretation Comments UA Spec Grav (test code = UA Spec 1.047 1 Grav) [facility] AND [id number] 07:15:02 Test Item Value Reference Range Interpretation Comments UA RBC (test code = 0-2 /HPF See_Comment [Automa sharri message] The UA RBC) system which ge nerated this result tra nsmitted reference range : <=2. The reference range was not used to interpr et this result as ahmet l/abnormal. [facility] AND [id number] 07:15:02 Test Item Value Reference Range Interpretation Comments UA WBC (test code = UA None Seen (11/10/16 1:15 WBC) AM) [facility] AND [id number] 07:15:02 Test Item Value Reference Range Interpretation Comments UA Sq Epi (test code = None Seen (11/10/16 1:15 UA Sq Epi) AM) [facility] AND [id number] 07:15:02 Test Item Value Reference Range Interpretation Comments UA Bacteria (test code = None Seen (11/10/16 UA Bacteria) 1:15 AM) [facility] AND [id number] 07:15:02 Test Item Value Reference Range Interpretation Comments UA Nitrite (test code Negative (11/10/16 1:15 = UA Nitrite) AM) [facility] AND [id number] 07:15:02 Test Item Value Reference Range Interpretation Comments UA Leuk Est (test Negative (11/10/16 1:15 code = UA Leuk Est) AM) [facility] AND [id number] 07:15:02 Test Item Value Reference Range Interpretation Comments UA Color (test code = Yellow *NA*(11/10/16 UA Color) 1:15 AM) [facility] AND [id number] 07:15:02 Test Item Value Reference Range Interpretation Comments UA pH (test code = UA pH) 5.5 1 5.0-8.0 [facility] AND [id number] 07:15:02 Test Item Value Reference Range Interpretation Comments UA Protein (test code Negative (11/10/16 1:15 = UA Protein) AM) [facility] AND [id number] 07:15:02 Test Item Value Reference Range Interpretation Comments UA Glucose (test code Negative (11/10/16 1:15 = UA Glucose) AM) [facility] AND [id number] 07:15:02 Test Item Value Reference Range Interpretation Comments UA Ketones (test code = UA Ketones) 15 mg/dL [facility] AND [id number] 07:15:02 Test Item Value Reference Range Interpretation Comments UA Bili (test code = Negative *NA*(11/10/16 UA Bili) 1:15 AM) [facility] AND [id number] 07:15:02 Test Item Value Reference Range Interpretation Comments UA Blood (test code = Negative (11/10/16 1:15 UA Blood) AM) [facility] AND [id number] 07:15:02 Test Item Value Reference Range Interpretation Comments UA Urobilinogen (test code = UA 0.2 0.1-1.0 Urobilinogen) [facility] AND [id number] 07:15:02 Test Item Value Reference Range Interpretation Comments UA Turbidity (test code = Clear (11/10/16 1:15 UA Turbidity) AM) [facility] [id number] 07:15:02 Test Item Value Reference Range Interpretation Comments UA Spec Grav (test code = UA Spec 1.047 1 Grav) [facility] [id number] 07:15:02 Test Item Value Reference Range Interpretation Comments UA RBC (test code = 0-2 /HPF See_Comment [Automa sharri message] The UA RBC) system which ge nerated this result tra nsmitted reference range : <=2. The reference range was not used to interpr et this result as ahmet l/abnormal. [facility] [id number] 07:15:02 Test Item Value Reference Range Interpretation Comments UA WBC (test code = UA None Seen (11/10/16 1:15 WBC) AM) [facility] [id number] 07:15:02 Test Item Value Reference Range Interpretation Comments UA Sq Epi (test code = None Seen (11/10/16 1:15 UA Sq Epi) AM) [facility] [id number] 07:15:02 Test Item Value Reference Range Interpretation Comments UA Bacteria (test code = None Seen (11/10/16 UA Bacteria) 1:15 AM) [facility] [id number] 07:15:02 Test Item Value Reference Range Interpretation Comments UA Nitrite (test code Negative (11/10/16 1:15 = UA Nitrite) AM) [facility] [id number] 07:15:02 Test Item Value Reference Range Interpretation Comments UA Leuk Est (test Negative (11/10/16 1:15 code = UA Leuk Est) AM) [facility] [id number] 07:15:02 Test Item Value Reference Range Interpretation Comments UA Color (test code = Yellow *NA*(11/10/16 UA Color) 1:15 AM) [facility] [id number] 07:15:02 Test Item Value Reference Range Interpretation Comments UA pH (test code = UA pH) 5.5 1 5.0-8.0 [facility] [id number] 07:15:02 Test Item Value Reference Range Interpretation Comments UA Protein (test code Negative (11/10/16 1:15 = UA Protein) AM) [facility] [id number] 07:15:02 Test Item Value Reference Range Interpretation Comments UA Glucose (test code Negative (11/10/16 1:15 = UA Glucose) AM) [facility] AND [id number] 07:15:02 Test Item Value Reference Range Interpretation Comments UA Ketones (test code = UA Ketones) 15 mg/dL [facility] AND [id number] 07:15:02 Test Item Value Reference Range Interpretation Comments UA Bili (test code = Negative *NA*(11/10/16 UA Bili) 1:15 AM) [facility] AND [id number] 07:15:02 Test Item Value Reference Range Interpretation Comments UA Blood (test code = Negative (11/10/16 1:15 UA Blood) AM) [facility] AND [id number] 07:15:02 Test Item Value Reference Range Interpretation Comments UA Urobilinogen (test code = UA 0.2 0.1-1.0 Urobilinogen) [facility] AND [id number] 07:15:02 Test Item Value Reference Range Interpretation Comments UA Turbidity (test code = Clear (11/10/16 1:15 UA Turbidity) AM) [facility] AND [id number] 07:15:02 Test Item Value Reference Range Interpretation Comments UA Spec Grav (test code = UA Spec 1.047 1 Grav) [facility] AND [id number] 07:15:02 Test Item Value Reference Range Interpretation Comments UA RBC (test code = 0-2 /HPF See_Comment [Automa sharri message] The UA RBC) system which ge nerated this result tra nsmitted reference range : <=2. The reference range was not used to interpr et this result as ahmet l/abnormal. [facility] AND [id number] 07:15:02 Test Item Value Reference Range Interpretation Comments UA WBC (test code = UA None Seen (11/10/16 1:15 WBC) AM) [facility] AND [id number] 07:15:02 Test Item Value Reference Range Interpretation Comments UA Sq Epi (test code = None Seen (11/10/16 1:15 UA Sq Epi) AM) [facility] AND [id number] 07:15:02 Test Item Value Reference Range Interpretation Comments UA Bacteria (test code = None Seen (11/10/16 UA Bacteria) 1:15 AM) [facility] AND [id number] 07:15:02 Test Item Value Reference Range Interpretation Comments UA Nitrite (test code Negative (11/10/16 1:15 = UA Nitrite) AM) [facility] AND [id number] 07:15:02 Test Item Value Reference Range Interpretation Comments UA Leuk Est (test Negative (11/10/16 1:15 code = UA Leuk Est) AM) [facility] AND [id number] 07:15:02 Test Item Value Reference Range Interpretation Comments UA Color (test code = Yellow *NA*(11/10/16 UA Color) 1:15 AM) [facility] AND [id number] 07:15:02 Test Item Value Reference Range Interpretation Comments UA pH (test code = UA pH) 5.5 1 5.0-8.0 [facility] AND [id number] 07:15:02 Test Item Value Reference Range Interpretation Comments UA Protein (test code Negative (11/10/16 1:15 = UA Protein) AM) [facility] AND [id number] 07:15:02 Test Item Value Reference Range Interpretation Comments UA Glucose (test code Negative (11/10/16 1:15 = UA Glucose) AM) [facility] AND [id number] 07:15:02 Test Item Value Reference Range Interpretation Comments UA Ketones (test code = UA Ketones) 15 mg/dL [facility] AND [id number] 07:15:02 Test Item Value Reference Range Interpretation Comments UA Bili (test code = Negative *NA*(11/10/16 UA Bili) 1:15 AM) [facility] AND [id number] 07:15:02 Test Item Value Reference Range Interpretation Comments UA Blood (test code = Negative (11/10/16 1:15 UA Blood) AM) [facility] AND [id number] 07:15:02 Test Item Value Reference Range Interpretation Comments UA Urobilinogen (test code = UA 0.2 0.1-1.0 Urobilinogen) [facility] AND [id number] 07:15:02 Test Item Value Reference Range Interpretation Comments UA Turbidity (test code = Clear (11/10/16 1:15 UA Turbidity) AM) [facility] AND [id number] 07:15:02 Test Item Value Reference Range Interpretation Comments UA Spec Grav (test code = UA Spec 1.047 1 Grav) [facility] AND [id number] 07:15:02 Test Item Value Reference Range Interpretation Comments UA RBC (test code = 0-2 /HPF See_Comment [Automa sharri message] The UA RBC) system which ge nerated this result tra nsmitted reference range : <=2. The reference range was not used to interpr et this result as ahmet l/abnormal. [facility] AND [id number] 07:15:02 Test Item Value Reference Range Interpretation Comments UA WBC (test code = UA None Seen (11/10/16 1:15 WBC) AM) [facility] AND [id number] 07:15:02 Test Item Value Reference Range Interpretation Comments UA Sq Epi (test code = None Seen (11/10/16 1:15 UA Sq Epi) AM) [facility] AND [id number] 07:15:02 Test Item Value Reference Range Interpretation Comments UA Bacteria (test code = None Seen (11/10/16 UA Bacteria) 1:15 AM) [facility] AND [id number] 07:15:02 Test Item Value Reference Range Interpretation Comments UA Nitrite (test code Negative (11/10/16 1:15 = UA Nitrite) AM) [facility] AND [id number] 07:15:02 Test Item Value Reference Range Interpretation Comments UA Leuk Est (test Negative (11/10/16 1:15 code = UA Leuk Est) AM) [facility] AND [id number] 07:15:02 Test Item Value Reference Range Interpretation Comments UA Color (test code = Yellow *NA*(11/10/16 UA Color) 1:15 AM) [facility] AND [id number] 07:15:02 Test Item Value Reference Range Interpretation Comments UA pH (test code = UA pH) 5.5 1 5.0-8.0 [facility] AND [id number] 07:15:02 Test Item Value Reference Range Interpretation Comments UA Protein (test code Negative (11/10/16 1:15 = UA Protein) AM) [facility] AND [id number] 07:15:02 Test Item Value Reference Range Interpretation Comments UA Glucose (test code Negative (11/10/16 1:15 = UA Glucose) AM) [facility] AND [id number] 07:15:02 Test Item Value Reference Range Interpretation Comments UA Ketones (test code = UA Ketones) 15 mg/dL [facility] AND [id number] 07:15:02 Test Item Value Reference Range Interpretation Comments UA Bili (test code = Negative *NA*(11/10/16 UA Bili) 1:15 AM) [facility] AND [id number] 07:15:02 Test Item Value Reference Range Interpretation Comments UA Blood (test code = Negative (11/10/16 1:15 UA Blood) AM) [facility] AND [id number] 07:15:02 Test Item Value Reference Range Interpretation Comments UA Urobilinogen (test code = UA 0.2 0.1-1.0 Urobilinogen) [facility] AND [id number] 07:15:02 Test Item Value Reference Range Interpretation Comments UA Turbidity (test code = Clear (11/10/16 1:15 UA Turbidity) AM) [facility] AND [id number] 07:15:02 Test Item Value Reference Range Interpretation Comments UA Spec Grav (test code = UA Spec 1.047 1 Grav) [facility] AND [id number] 07:15:02 Test Item Value Reference Range Interpretation Comments UA RBC (test code = 0-2 /HPF See_Comment [Automa sharri message] The UA RBC) system which ge nerated this result tra nsmitted reference range : <=2. The reference range was not used to interpr et this result as ahmet l/abnormal. [facility] AND [id number] 07:15:02 Test Item Value Reference Range Interpretation Comments UA WBC (test code = UA None Seen (11/10/16 1:15 WBC) AM) [facility] AND [id number] 07:15:02 Test Item Value Reference Range Interpretation Comments UA Sq Epi (test code = None Seen (11/10/16 1:15 UA Sq Epi) AM) [facility] AND [id number] 07:15:02 Test Item Value Reference Range Interpretation Comments UA Bacteria (test code = None Seen (11/10/16 UA Bacteria) 1:15 AM) [facility] AND [id number] 07:15:02 Test Item Value Reference Range Interpretation Comments UA Nitrite (test code Negative (11/10/16 1:15 = UA Nitrite) AM) [facility] AND [id number] 07:15:02 Test Item Value Reference Range Interpretation Comments UA Leuk Est (test Negative (11/10/16 1:15 code = UA Leuk Est) AM) [facility] AND [id number] 07:15:02 Test Item Value Reference Range Interpretation Comments UA Color (test code = Yellow *NA*(11/10/16 UA Color) 1:15 AM) [facility] AND [id number] 07:15:02 Test Item Value Reference Range Interpretation Comments UA pH (test code = UA pH) 5.5 1 5.0-8.0 [facility] AND [id number] 07:15:02 Test Item Value Reference Range Interpretation Comments UA Protein (test code Negative (11/10/16 1:15 = UA Protein) AM) [facility] AND [id number] 07:15:02 Test Item Value Reference Range Interpretation Comments UA Glucose (test code Negative (11/10/16 1:15 = UA Glucose) AM) [facility] AND [id number] 07:15:02 Test Item Value Reference Range Interpretation Comments UA Ketones (test code = UA Ketones) 15 mg/dL [facility] AND [id number] 07:15:02 Test Item Value Reference Range Interpretation Comments UA Bili (test code = Negative *NA*(11/10/16 UA Bili) 1:15 AM) [facility] AND [id number] 07:15:02 Test Item Value Reference Range Interpretation Comments UA Blood (test code = Negative (11/10/16 1:15 UA Blood) AM) [facility] AND [id number] 07:15:02 Test Item Value Reference Range Interpretation Comments UA Urobilinogen (test code = UA 0.2 0.1-1.0 Urobilinogen) [facility] AND [id number] 07:15:02 Test Item Value Reference Range Interpretation Comments UA Turbidity (test code = Clear (11/10/16 1:15 UA Turbidity) AM) [facility] AND [id number] 07:15:02 Test Item Value Reference Range Interpretation Comments UA Spec Grav (test code = UA Spec 1.047 1 Grav) [facility] AND [id number] 07:15:02 Test Item Value Reference Range Interpretation Comments UA RBC (test code = 0-2 /HPF See_Comment [Automa sharri message] The UA RBC) system which ge nerated this result tra nsmitted reference range : <=2. The reference range was not used to interpr et this result as ahmet l/abnormal. [facility] AND [id number] 07:15:02 Test Item Value Reference Range Interpretation Comments UA WBC (test code = UA None Seen (11/10/16 1:15 WBC) AM) [facility] AND [id number] 07:15:02 Test Item Value Reference Range Interpretation Comments UA Sq Epi (test code = None Seen (11/10/16 1:15 UA Sq Epi) AM) [facility] AND [id number] 07:15:02 Test Item Value Reference Range Interpretation Comments UA Bacteria (test code = None Seen (11/10/16 UA Bacteria) 1:15 AM) [facility] AND [id number] 07:15:02 Test Item Value Reference Range Interpretation Comments UA Nitrite (test code Negative (11/10/16 1:15 = UA Nitrite) AM) [facility] AND [id number] 07:15:02 Test Item Value Reference Range Interpretation Comments UA Leuk Est (test Negative (11/10/16 1:15 code = UA Leuk Est) AM) [facility] AND [id number] 07:15:02 Test Item Value Reference Range Interpretation Comments UA Color (test code = Yellow *NA*(11/10/16 UA Color) 1:15 AM) [facility] AND [id number] 07:15:02 Test Item Value Reference Range Interpretation Comments UA pH (test code = UA pH) 5.5 1 5.0-8.0 [facility] [id number] 07:15:02 Test Item Value Reference Range Interpretation Comments UA Protein (test code Negative (11/10/16 1:15 = UA Protein) AM) [facility] [id number] 07:15:02 Test Item Value Reference Range Interpretation Comments UA Glucose (test code Negative (11/10/16 1:15 = UA Glucose) AM) [facility] [id number] 07:15:02 Test Item Value Reference Range Interpretation Comments UA Ketones (test code = UA Ketones) 15 mg/dL [facility] [id number] 07:15:02 Test Item Value Reference Range Interpretation Comments UA Bili (test code = Negative *NA*(11/10/16 UA Bili) 1:15 AM) [facility] [id number] 07:15:02 Test Item Value Reference Range Interpretation Comments UA Blood (test code = Negative (11/10/16 1:15 UA Blood) AM) [facility] [id number] 07:15:02 Test Item Value Reference Range Interpretation Comments UA Urobilinogen (test code = UA 0.2 0.1-1.0 Urobilinogen) [facility] [id number] 07:15:02 Test Item Value Reference Range Interpretation Comments UA Turbidity (test code = Clear (11/10/16 1:15 UA Turbidity) AM) [facility] [id number] 07:15:02 Test Item Value Reference Range Interpretation Comments UA Spec Grav (test code = UA Spec 1.047 1 Grav) [facility] [id number] 07:15:00 Test Item Value Reference Range Interpretation Comments UDS Note (test code = See Note (11/10/16 1:15 UDS Note) AM) [facility] [id number] 07:15:00 Test Item Value Reference Range Interpretation Comments U Opiate Scr (test Positive *ABN*(11/10/16 code = U Opiate Scr) 1:15 AM) [facility] [id number] 07:15:00 Test Item Value Reference Range Interpretation Comments U Phencyc Scr (test Negative *NA*(2/10/17 code = U Phencyc Scr) 1:15 AM) [facility] [id number] 07:15:00 Test Item Value Reference Range Interpretation Comments U Cannab Scr (test Negative *NA*(11/10/16 code = U Cannab Scr) 1:15 AM) [facility] [id number] 07:15:00 Test Item Value Reference Range Interpretation Comments U Cocaine Scr (test Positive *ABN*(11/10/16 code = U Cocaine Scr) 1:15 AM) [facility] [id number] 07:15:00 Test Item Value Reference Range Interpretation Comments U Ysabel Scr (test code Negative *NA*(11/10/16 = U Ysabel Scr) 1:15 AM) [facility] [id number] 07:15:00 Test Item Value Reference Range Interpretation Comments U Benzodia Scr (test Negative *NA*(11/10/16 code = U Benzodia Scr) 1:15 AM) [facility] [id number] 07:15:00 Test Item Value Reference Range Interpretation Comments U Amph Scr (test code Negative *NA*(11/10/16 = U Amph Scr) 1:15 AM) [facility] [id number] 07:15:00 Test Item Value Reference Range Interpretation Comments UDS Note (test code = See Note (11/10/16 1:15 UDS Note) AM) [facility] [id number] 07:15:00 Test Item Value Reference Range Interpretation Comments U Opiate Scr (test Positive *ABN*(11/10/16 code = U Opiate Scr) 1:15 AM) [facility] [id number] 07:15:00 Test Item Value Reference Range Interpretation Comments U Phencyc Scr (test Negative *NA*(11/10/16 code = U Phencyc Scr) 1:15 AM) [facility] [id number] 07:15:00 Test Item Value Reference Range Interpretation Comments U Cannab Scr (test Negative *NA*(11/10/16 code = U Cannab Scr) 1:15 AM) [facility] [id number] 07:15:00 Test Item Value Reference Range Interpretation Comments U Cocaine Scr (test Positive *ABN*(11/10/16 code = U Cocaine Scr) 1:15 AM) [facility] [id number] 07:15:00 Test Item Value Reference Range Interpretation Comments U Ysabel Scr (test code Negative *NA*(11/10/16 = U Ysabel Scr) 1:15 AM) [facility] [id number] 07:15:00 Test Item Value Reference Range Interpretation Comments U Benzodia Scr (test Negative *NA*(11/10/16 code = U Benzodia Scr) 1:15 AM) [facility] [id number] 07:15:00 Test Item Value Reference Range Interpretation Comments U Amph Scr (test code Negative *NA*(11/10/16 = U Amph Scr) 1:15 AM) [facility] [id number] 07:15:00 Test Item Value Reference Range Interpretation Comments UDS Note (test code = See Note (11/10/16 1:15 UDS Note) AM) [facility] [id number] 07:15:00 Test Item Value Reference Range Interpretation Comments U Opiate Scr (test Positive *ABN*(11/10/16 code = U Opiate Scr) 1:15 AM) [facility] [id number] 07:15:00 Test Item Value Reference Range Interpretation Comments U Phencyc Scr (test Negative *NA*(11/10/16 code = U Phencyc Scr) 1:15 AM) [facility] [id number] 07:15:00 Test Item Value Reference Range Interpretation Comments U Cannab Scr (test Negative *NA*(11/10/16 code = U Cannab Scr) 1:15 AM) [facility] [id number] 07:15:00 Test Item Value Reference Range Interpretation Comments U Cocaine Scr (test Positive *ABN*(11/10/16 code = U Cocaine Scr) 1:15 AM) [facility] [id number] 07:15:00 Test Item Value Reference Range Interpretation Comments U Ysabel Scr (test code Negative *NA*(11/10/16 = U Ysabel Scr) 1:15 AM) [facility] [id number] 07:15:00 Test Item Value Reference Range Interpretation Comments U Benzodia Scr (test Negative *NA*(11/10/16 code = U Benzodia Scr) 1:15 AM) [facility] [id number] 07:15:00 Test Item Value Reference Range Interpretation Comments U Amph Scr (test code Negative *NA*(11/10/16 = U Amph Scr) 1:15 AM) [facility] [id number] 07:15:00 Test Item Value Reference Range Interpretation Comments UDS Note (test code = See Note (11/10/16 1:15 UDS Note) AM) [facility] [id number] 07:15:00 Test Item Value Reference Range Interpretation Comments U Opiate Scr (test Positive *ABN*(11/10/16 code = U Opiate Scr) 1:15 AM) [facility] [id number] 07:15:00 Test Item Value Reference Range Interpretation Comments U Phencyc Scr (test Negative *NA*(11/10/16 code = U Phencyc Scr) 1:15 AM) [facility] [id number] 07:15:00 Test Item Value Reference Range Interpretation Comments U Cannab Scr (test Negative *NA*(11/10/16 code = U Cannab Scr) 1:15 AM) [facility] [id number] 07:15:00 Test Item Value Reference Range Interpretation Comments U Cocaine Scr (test Positive *ABN*(11/10/16 code = U Cocaine Scr) 1:15 AM) [facility] [id number] 07:15:00 Test Item Value Reference Range Interpretation Comments U Ysabel Scr (test code Negative *NA*(11/10/16 = U Ysabel Scr) 1:15 AM) [facility] [id number] 07:15:00 Test Item Value Reference Range Interpretation Comments U Benzodia Scr (test Negative *NA*(11/10/16 code = U Benzodia Scr) 1:15 AM) [facility] [id number] 07:15:00 Test Item Value Reference Range Interpretation Comments U Amph Scr (test code Negative *NA*(11/10/16 = U Amph Scr) 1:15 AM) [facility] [id number] 07:15:00 Test Item Value Reference Range Interpretation Comments UDS Note (test code = See Note (11/10/16 1:15 UDS Note) AM) [facility] [id number] 07:15:00 Test Item Value Reference Range Interpretation Comments U Opiate Scr (test Positive *ABN*(11/10/16 code = U Opiate Scr) 1:15 AM) [facility] [id number] 07:15:00 Test Item Value Reference Range Interpretation Comments U Phencyc Scr (test Negative *NA*(11/10/16 code = U Phencyc Scr) 1:15 AM) [facility] [id number] 07:15:00 Test Item Value Reference Range Interpretation Comments U Cannab Scr (test Negative *NA*(11/10/16 code = U Cannab Scr) 1:15 AM) [facility] [id number] 07:15:00 Test Item Value Reference Range Interpretation Comments U Cocaine Scr (test Positive *ABN*(11/10/16 code = U Cocaine Scr) 1:15 AM) [facility] [id number] 07:15:00 Test Item Value Reference Range Interpretation Comments U Ysabel Scr (test code Negative *NA*(11/10/16 = U Ysabel Scr) 1:15 AM) [facility] [id number] 07:15:00 Test Item Value Reference Range Interpretation Comments U Benzodia Scr (test Negative *NA*(11/10/16 code = U Benzodia Scr) 1:15 AM) [facility] [id number] 07:15:00 Test Item Value Reference Range Interpretation Comments U Amph Scr (test code Negative *NA*(11/10/16 = U Amph Scr) 1:15 AM) [facility] [id number] 07:15:00 Test Item Value Reference Range Interpretation Comments UDS Note (test code = See Note (11/10/16 1:15 UDS Note) AM) [facility] [id number] 07:15:00 Test Item Value Reference Range Interpretation Comments U Opiate Scr (test Positive *ABN*(11/10/16 code = U Opiate Scr) 1:15 AM) [facility] [id number] 07:15:00 Test Item Value Reference Range Interpretation Comments U Phencyc Scr (test Negative *NA*(11/10/16 code = U Phencyc Scr) 1:15 AM) [facility] [id number] 07:15:00 Test Item Value Reference Range Interpretation Comments U Cannab Scr (test Negative *NA*(11/10/16 code = U Cannab Scr) 1:15 AM) [facility] [id number] 07:15:00 Test Item Value Reference Range Interpretation Comments U Cocaine Scr (test Positive *ABN*(11/10/16 code = U Cocaine Scr) 1:15 AM) [facility] [id number] 07:15:00 Test Item Value Reference Range Interpretation Comments U Ysabel Scr (test code Negative *NA*(11/10/16 = U Ysabel Scr) 1:15 AM) [facility] [id number] 07:15:00 Test Item Value Reference Range Interpretation Comments U Benzodia Scr (test Negative *NA*(11/10/16 code = U Benzodia Scr) 1:15 AM) [facility] [id number] 07:15:00 Test Item Value Reference Range Interpretation Comments U Amph Scr (test code Negative *NA*(11/10/16 = U Amph Scr) 1:15 AM) [facility] [id number] 07:15:00 Test Item Value Reference Range Interpretation Comments UDS Note (test code = See Note (11/10/16 1:15 UDS Note) AM) [facility] [id number] 07:15:00 Test Item Value Reference Range Interpretation Comments U Opiate Scr (test Positive *ABN*(11/10/16 code = U Opiate Scr) 1:15 AM) [facility] [id number] 07:15:00 Test Item Value Reference Range Interpretation Comments U Phencyc Scr (test Negative *NA*(11/10/16 code = U Phencyc Scr) 1:15 AM) [facility] [id number] 07:15:00 Test Item Value Reference Range Interpretation Comments U Cannab Scr (test Negative *NA*(11/10/16 code = U Cannab Scr) 1:15 AM) [facility] [id number] 07:15:00 Test Item Value Reference Range Interpretation Comments U Cocaine Scr (test Positive *ABN*(11/10/16 code = U Cocaine Scr) 1:15 AM) [facility] [id number] 07:15:00 Test Item Value Reference Range Interpretation Comments U Ysabel Scr (test code Negative *NA*(11/10/16 = U Ysabel Scr) 1:15 AM) [facility] [id number] 07:15:00 Test Item Value Reference Range Interpretation Comments U Benzodia Scr (test Negative *NA*(11/10/16 code = U Benzodia Scr) 1:15 AM) [facility] [id number] 07:15:00 Test Item Value Reference Range Interpretation Comments U Amph Scr (test code Negative *NA*(11/10/16 = U Amph Scr) 1:15 AM) [id number] 03:40:00 Test Item Value Reference Range Interpretation Comments K-time Rapid (test code = K-time 4.1 min 0.6-2.3 Rapid) [facility] HospitalKbvyatrXPLYRCHBAU1019-22-22 03:40:00 Test Item Value Reference Range Interpretation Comments Angle Rapid (test code = Angle 48 degrees 64-80 Rapid) [facility] CenterYucozyqYJPGRFSIOP4931-01-44 03:40:00 Test Item Value Reference Range Interpretation Comments Etoh (%) (test code = Etoh (%)) 0.148 [facility] HospitalFqifwodDTKMUYNCJX5426-75-54 03:40:00 Test Item Value Reference Range Interpretation Comments Ethanol Lvl (test code = Ethanol Lvl) 148 [facility]PbbouwbBEIMWFESVVHW1865-84-53 03:40:00 Test Item Value Reference Range Interpretation Comments AGAP (test code = AGAP) 18.2 10.0-20.0 [facility] HospitalXomgzvdRPVGZYSILPFK3907-24-98 03:40:00 Test Item Value Reference Range Interpretation Comments eGFR (test code = eGFR) 86 [facility] HospitalGczosdyUXNBQKDKVDKV3274-18-74 03:40:00 Test Item Value Reference Range Interpretation Comments Sodium Lvl (test code = Sodium Lvl) 137 135-145 [facility] HospitalQqshrhfPSXREZZEJSBI1360-13-95 03:40:00 Test Item Value Reference Range Interpretation Comments CO2 (test code = CO2) 24 24-32 [facility] HospitalWmhjhlaXOWVAAPOZMHO0971-19-32 03:40:00 Test Item Value Reference Range Interpretation Comments Chloride Lvl (test code = Chloride Lvl) 98 95-109 [facility] HospitalExzkkoaBUPWXIWRPOOX8993-16-19 03:40:00 Test Item Value Reference Range Interpretation Comments Potassium Lvl (test code = Potassium 3.2 3.5-5.1 Lvl) [facility] HospitalPlwtndnZWHDRACBJPWI3327-62-03 03:40:00 Test Item Value Reference Range Interpretation Comments BUN (test code = BUN) 14 7-22 [facility] HospitalDdtetvxYDFWHRHBRQBL3614-74-01 03:40:00 Test Item Value Reference Range Interpretation Comments Glucose Lvl (test code = Glucose Lvl) 80 70-99 [facility] HospitalWuxglzuNJZWHWYOGYKN3553-76-76 03:40:00 Test Item Value Reference Range Interpretation Comments Creatinine Lvl (test code = Creatinine 1.15 0.50-1.40 Lvl) [facility] HospitalEkyknpyLHAHCPYZDHPK5155-88-19 03:40:00 Test Item Value Reference Range Interpretation Comments Calcium Lvl (test code = Calcium Lvl) 9.0 8.5-10.5 [facility] HospitalZrjfnqnMXBKJPELYH7962-97-96 03:40:00 Test Item Value Reference Range Interpretation Comments Segs-Bands # (test code = Segs-Bands #) 10.5 1.5-8.1 [facility] HospitalPdrwlrcZDTDAOPRNS3415-69-64 03:40:00 Test Item Value Reference Range Interpretation Comments Eosinophils (test code = 0.5 See_Comment [A utomated message] The Eosinophils) system which nerated this result tra nsmitted reference range : <=4.0. The reference r natasha was not used to int erpret this result as normal/abnormal . [facility] HospitalWbueqdhQPXDMMBFKJ3527-35-80 03:40:00 Test Item Value Reference Range Interpretation Comments Basophils (test code = 1.1 See_Comment [Aut omated message] The Basophils) system which nerated this result tra nsmitted reference range : <=1.0. The reference r natasha was not used to int erpret this result as normal/abnormal . [facility] HospitalIjuhpmkVKGLOSJJQA7503-96-91 03:40:00 Test Item Value Reference Range Interpretation Comments Lymphocytes # (test code = Lymphocytes 4.0 1.0-5.5 #) [facility] HospitalItxtjbpCVIGKPSGSF1088-65-55 03:40:00 Test Item Value Reference Range Interpretation Comments Monocytes # (test code 0.8 See_Comment [Aut omated message] The = Monocytes #) system which generated this result tra nsmitted reference range : <=0.8. The reference r natasha was not used to int erpret this result as normal/abnormal . [facility] HospitalVehknmlPZZBOCOBNL2074-29-89 03:40:00 Test Item Value Reference Range Interpretation Comments Eosinophils # (test code 0.1 See_Comment [A utomated message] The = Eosinophils #) system whic h generated this result tra nsmitted reference range : <=0.5. The reference r natasha was not used to int erpret this result as normal/abnormal . [facility] HospitalVqjdnqpIRRSTIQINO3614-68-14 03:40:00 Test Item Value Reference Range Interpretation Comments Basophils # (test code 0.2 See_Comment [Aut omated message] The = Basophils #) system which generated this result tra nsmitted reference range : <=0.2. The reference r natasha was not used to int erpret this result as normal/abnormal . [facility] HospitalUlyxwrqWFDCWEMGIV2406-45-87 03:40:00 Test Item Value Reference Range Interpretation Comments Segs (test code = Segs) 67.1 45.0-75.0 [facility] HospitalQgmgpgsUWGHWCLORK3198-42-02 03:40:00 Test Item Value Reference Range Interpretation Comments Lymphocytes (test code = Lymphocytes) 26.0 20.0-40.0 [facility] HospitalUadjqqiPQUEEPHFLP7318-48-37 03:40:00 Test Item Value Reference Range Interpretation Comments Monocytes (test code = Monocytes) 5.3 2.0-12.0 [facility] HospitalBhvzbufLLAQWBIVNG0481-98-34 03:40:00 Test Item Value Reference Range Interpretation Comments RDW (test code = RDW) 12.8 11.5-14.5 [facility] HospitalJdqulwwNXIILKZTRC2760-32-09 03:40:00 Test Item Value Reference Range Interpretation Comments Platelet (test code = Platelet) 189 133-450 [facility] HospitalYsvxvmfPVDGUJGAWI5448-92-55 03:40:00 Test Item Value Reference Range Interpretation Comments MPV (test code = MPV) 6.1 7.4-10.4 [facility] HospitalHqpbsoaCMQFCNGQYW1971-42-92 03:40:00 Test Item Value Reference Range Interpretation Comments Hgb (test code = Hgb) 15.9 14.0-18.0 [facility] HospitalZtqjmzhAVMGEENKCO7605-19-18 03:40:00 Test Item Value Reference Range Interpretation Comments Hct (test code = Hct) 45.4 42.0-54.0 [facility] HospitalWdhmjlfZRJKSTSCJS4228-94-36 03:40:00 Test Item Value Reference Range Interpretation Comments MCV (test code = MCV) 95.1 80.0-94.0 [facility] HospitalHhgpeduEXJTSJVVIH1089-76-47 03:40:00 Test Item Value Reference Range Interpretation Comments MCH (test code = MCH) 33.3 pg 27.0-31.0 [facility] HospitalIkayfcxPBLQCHAGVZ0585-50-76 03:40:00 Test Item Value Reference Range Interpretation Comments MCHC (test code = MCHC) 35.0 32.0-36.0 [facility] HospitalCqzhaenZWGXBFWXGF0877-44-53 03:40:00 Test Item Value Reference Range Interpretation Comments WBC (test code = WBC) 15.6 3.7-10.4 [facility] HospitalRrlqhmcBZGHAQCZER6842-82-21 03:40:00 Test Item Value Reference Range Interpretation Comments RBC (test code = RBC) 4.77 4.70-6.10 [facility] HospitalNduaypwDKYWHLJDBF5142-58-86 03:40:00 Test Item Value Reference Range Interpretation Comments G-value Rapid (test code = G-value 3.7 5.0-11.6 Rapid) [facility] HospitalQajzuuhUBQITFLTBG1012-01-63 03:40:00 Test Item Value Reference Range Interpretation Comments Max Amplitude Rapid (test code = Max 42 mm 52-71 Amplitude Rapid) [facility] HospitalQvlabxqZWEUOREZQX0819-71-12 03:40:00 Test Item Value Reference Range Interpretation Comments Estimated % Lysis Rapid 3.4 See_Comment [Au tomated message] The (test code = Estimated syste m which generated % Lysis Rapid) this result t ransmitted reference range : <=7.5. The reference r natasha was not used to int erpret this result as normal/abnormal . [facility] HospitalZohykfdLOTKYICRRY6162-57-83 03:40:00 Test Item Value Reference Range Interpretation Comments Split Point Rapid (test code = Split 0.7 min Point Rapid) [facility] HospitalDbqmewqKLODTHTICI5073-14-37 03:40:00 Test Item Value Reference Range Interpretation Comments R-time Rapid (test code = R-time 1.1 min 0.4-0.7 Rapid) [facility] HospitalYjgmtlbEEUCMVACPL5692-19-03 03:40:00 Test Item Value Reference Range Interpretation Comments ACT (TEG) Rapid (test code = ACT (TEG) 152 s 86-118 Rapid) [facility] HospitalBtiibxzECXMGWZZPS4035-27-33 03:40:00 Test Item Value Reference Range Interpretation Comments K-time Rapid (test code = K-time 4.1 min 0.6-2.3 Rapid) [facility] HospitalOzocmguESMUTCRXFD4616-03-26 03:40:00 Test Item Value Reference Range Interpretation Comments Angle Rapid (test code = Angle 48 degrees 64-80 Rapid) [place] [id number] 03:40:00 Test Item Value Reference Range Interpretation Comments Etoh (%) (test code = Etoh (%)) 0.148 [place] [id number] 03:40:00 Test Item Value Reference Range Interpretation Comments Ethanol Lvl (test code = Ethanol Lvl) 148 [facility] HospitalYquqmxxKUYQKUYYXBTM2038-19-14 03:40:00 Test Item Value Reference Range Interpretation Comments AGAP (test code = AGAP) 18.2 10.0-20.0 [facility] HospitalJawsslyDJXOSTJOPWUY6102-25-72 03:40:00 Test Item Value Reference Range Interpretation Comments eGFR (test code = eGFR) 86 [facility] HospitalZxheewxVLKZYLRISGRL7160-46-76 03:40:00 Test Item Value Reference Range Interpretation Comments Sodium Lvl (test code = Sodium Lvl) 137 135-145 [facility] HospitalXcpkzyhYUOGXCLEDQTO1768-92-12 03:40:00 Test Item Value Reference Range Interpretation Comments CO2 (test code = CO2) 24 24-32 [facility] HospitalEfwwihiFDFONUFLPYTS5070-21-50 03:40:00 Test Item Value Reference Range Interpretation Comments Chloride Lvl (test code = Chloride Lvl) 98 95-109 [facility] HospitalTtgpkbmPRUDSRFIAPZH2199-73-98 03:40:00 Test Item Value Reference Range Interpretation Comments Potassium Lvl (test code = Potassium 3.2 3.5-5.1 Lvl) [facility] HospitalXalzlcrWBVSOCAILDJS2035-63-52 03:40:00 Test Item Value Reference Range Interpretation Comments BUN (test code = BUN) 14 7-22 [facility] HospitalEuaefqgVJGHQIHZUUFS7011-57-46 03:40:00 Test Item Value Reference Range Interpretation Comments Glucose Lvl (test code = Glucose Lvl) 80 70-99 [facility] HospitalMirgkmyRGCTLVATUEIP0658-77-58 03:40:00 Test Item Value Reference Range Interpretation Comments Creatinine Lvl (test code = Creatinine 1.15 0.50-1.40 Lvl) [facility] HospitalHvbgeuuEVWVPDCQDHNK9833-64-64 03:40:00 Test Item Value Reference Range Interpretation Comments Calcium Lvl (test code = Calcium Lvl) 9.0 8.5-10.5 [facility] HospitalBglzbjkWUNMZKFRDS2339-02-38 03:40:00 Test Item Value Reference Range Interpretation Comments Segs-Bands # (test code = Segs-Bands #) 10.5 1.5-8.1 [facility] HospitalSomiudaLXCNZKOFIW7888-50-62 03:40:00 Test Item Value Reference Range Interpretation Comments Eosinophils (test code = 0.5 See_Comment [A utomated message] The Eosinophils) system which ge nerated this result tra nsmitted reference range : <=4.0. The reference r natasha was not used to int erpret this result as normal/abnormal . [facility] HospitalMlpkncpBXLBVWKLSY2507-90-96 03:40:00 Test Item Value Reference Range Interpretation Comments Basophils (test code = 1.1 See_Comment [Aut omated message] The Basophils) system which ge nerated this result tra nsmitted reference range : <=1.0. The reference r natasha was not used to int erpret this result as normal/abnormal . [facility] HospitalRaeegieOBPLKSNQIH8167-25-26 03:40:00 Test Item Value Reference Range Interpretation Comments Lymphocytes # (test code = Lymphocytes 4.0 1.0-5.5 #) [facility] HospitalBohiqiuPCOLBEOALC6522-44-66 03:40:00 Test Item Value Reference Range Interpretation Comments Monocytes # (test code 0.8 See_Comment [Aut omated message] The = Monocytes #) system which generated this result tra nsmitted reference range : <=0.8. The reference r natasha was not used to int erpret this result as normal/abnormal . [facility] HospitalFpekimyRFTGYMRQGT3559-85-54 03:40:00 Test Item Value Reference Range Interpretation Comments Eosinophils # (test code 0.1 See_Comment [A utomated message] The = Eosinophils #) system whic h generated this result tra nsmitted reference range : <=0.5. The reference r natasha was not used to int erpret this result as normal/abnormal . [facility] HospitalZdpneygMWRXPFFOYA9989-07-81 03:40:00 Test Item Value Reference Range Interpretation Comments Basophils # (test code 0.2 See_Comment [Aut omated message] The = Basophils #) system which generated this result tra nsmitted reference range : <=0.2. The reference r natasha was not used to int erpret this result as normal/abnormal . [facility] HospitalKttelawSMMPUANVCY8935-10-04 03:40:00 Test Item Value Reference Range Interpretation Comments Segs (test code = Segs) 67.1 45.0-75.0 [facility] HospitalWemtrqkZGIWEUQYVA4175-51-65 03:40:00 Test Item Value Reference Range Interpretation Comments Lymphocytes (test code = Lymphocytes) 26.0 20.0-40.0 [facility] HospitalUhtxsiiTLDHTBKAEW7144-98-30 03:40:00 Test Item Value Reference Range Interpretation Comments Monocytes (test code = Monocytes) 5.3 2.0-12.0 [facility] HospitalDulpwygFTNQWCVIMP0835-94-79 03:40:00 Test Item Value Reference Range Interpretation Comments RDW (test code = RDW) 12.8 11.5-14.5 [facility] HospitalBxrltbxBTXXWQPPFN9981-82-87 03:40:00 Test Item Value Reference Range Interpretation Comments Platelet (test code = Platelet) 189 133-450 [facility] HospitalGxdjlpqQOFPWZNWSD4041-55-93 03:40:00 Test Item Value Reference Range Interpretation Comments MPV (test code = MPV) 6.1 7.4-10.4 [facility] HospitalYpcqtwpVOQICHAMME8435-68-16 03:40:00 Test Item Value Reference Range Interpretation Comments Hgb (test code = Hgb) 15.9 14.0-18.0 [facility] HospitalHpxuubhZQORWXZNZL1137-57-95 03:40:00 Test Item Value Reference Range Interpretation Comments Hct (test code = Hct) 45.4 42.0-54.0 [facility] HospitalOmoijigKWUAFWTZPG1670-67-30 03:40:00 Test Item Value Reference Range Interpretation Comments MCV (test code = MCV) 95.1 80.0-94.0 [facility] HospitalEfkaoxmILXQWYRZJZ1681-46-65 03:40:00 Test Item Value Reference Range Interpretation Comments MCH (test code = MCH) 33.3 pg 27.0-31.0 [facility] HospitalGkbybsyEALUOYFMZH5302-18-12 03:40:00 Test Item Value Reference Range Interpretation Comments MCHC (test code = MCHC) 35.0 32.0-36.0 [facility] HospitalYzghwgfKVANMRVTFL2082-44-25 03:40:00 Test Item Value Reference Range Interpretation Comments WBC (test code = WBC) 15.6 3.7-10.4 [facility] HospitalJfbaxiwZWEUCOKIXX5786-97-52 03:40:00 Test Item Value Reference Range Interpretation Comments RBC (test code = RBC) 4.77 4.70-6.10 [facility] HospitalPuaeherXFOCFJBVSK7506-60-44 03:40:00 Test Item Value Reference Range Interpretation Comments G-value Rapid (test code = G-value 3.7 5.0-11.6 Rapid) [facility] HospitalXyxylixAJAICTCAOL7974-08-21 03:40:00 Test Item Value Reference Range Interpretation Comments Max Amplitude Rapid (test code = Max 42 mm 52-71 Amplitude Rapid) [facility] HospitalFnjprbzZMECUZGSBM1742-78-80 03:40:00 Test Item Value Reference Range Interpretation Comments Estimated % Lysis Rapid 3.4 See_Comment [Au tomated message] The (test code = Estimated syste m which generated % Lysis Rapid) this result t ransmitted reference range : <=7.5. The reference r natasha was not used to int erpret this result as normal/abnormal . [facility]PdchpfqZAGDOBUUST9082-84-82 03:40:00 Test Item Value Reference Range Interpretation Comments Split Point Rapid (test code = Split 0.7 min Point Rapid) [facility] HospitalTvjtcpgSBSDJYQCDW0467-32-56 03:40:00 Test Item Value Reference Range Interpretation Comments R-time Rapid (test code = R-time 1.1 min 0.4-0.7 Rapid) [facility] HospitalTtjleykVOBXZNNKYP4569-46-85 03:40:00 Test Item Value Reference Range Interpretation Comments ACT (TEG) Rapid (test code = ACT (TEG) 152 s 86-118 Rapid) [facility] HospitalXtypjhoISILKQEHER1081-47-23 03:40:00 Test Item Value Reference Range Interpretation Comments K-time Rapid (test code = K-time 4.1 min 0.6-2.3 Rapid) [facility] HospitalLwvuvymYITWSHIKXO4143-74-91 03:40:00 Test Item Value Reference Range Interpretation Comments Angle Rapid (test code = Angle 48 degrees 64-80 Rapid) [place] [id number] 03:40:00 Test Item Value Reference Range Interpretation Comments Etoh (%) (test code = Etoh (%)) 0.148 [place] [id number] 03:40:00 Test Item Value Reference Range Interpretation Comments Ethanol Lvl (test code = Ethanol Lvl) 148 [facility]ZmssszwYTXEJOMJKZTE5790-71-33 03:40:00 Test Item Value Reference Range Interpretation Comments AGAP (test code = AGAP) 18.2 10.0-20.0 [facility] HospitalBlpampwBLTKQQYJFNMD4148-31-94 03:40:00 Test Item Value Reference Range Interpretation Comments eGFR (test code = eGFR) 86 [facility] HospitalMgmclvsLFAOYHRDOHDL6728-95-73 03:40:00 Test Item Value Reference Range Interpretation Comments Sodium Lvl (test code = Sodium Lvl) 137 135-145 [facility] HospitalDcymcqsSNDLTLCOFDVT5585-11-80 03:40:00 Test Item Value Reference Range Interpretation Comments CO2 (test code = CO2) 24 24-32 [facility] HospitalGprvudxUEQZOVHPVDSC0188-71-93 03:40:00 Test Item Value Reference Range Interpretation Comments Chloride Lvl (test code = Chloride Lvl) 98 95-109 [facility] HospitalRynyffvRFLJODZHCSLU3144-18-43 03:40:00 Test Item Value Reference Range Interpretation Comments Potassium Lvl (test code = Potassium 3.2 3.5-5.1 Lvl) [facility] HospitalMtbrocbQNGKGIBSMIGJ4205-59-99 03:40:00 Test Item Value Reference Range Interpretation Comments BUN (test code = BUN) 14 7-22 [facility] HospitalRkpdmdcIJRSYNFBQDYF0410-17-19 03:40:00 Test Item Value Reference Range Interpretation Comments Glucose Lvl (test code = Glucose Lvl) 80 70-99 [facility] HospitalXzcejfwWWTBSBSXVWKO3436-78-19 03:40:00 Test Item Value Reference Range Interpretation Comments Creatinine Lvl (test code = Creatinine 1.15 0.50-1.40 Lvl) [facility] HospitalTpunpmyJNMSDSBUUYDQ7639-26-30 03:40:00 Test Item Value Reference Range Interpretation Comments Calcium Lvl (test code = Calcium Lvl) 9.0 8.5-10.5 [facility]PjhwutlHPIKDJVMFE7375-53-64 03:40:00 Test Item Value Reference Range Interpretation Comments Segs-Bands # (test code = Segs-Bands #) 10.5 1.5-8.1 [facility] HospitalHgsnuzpIYHZMVCGVM3399-47-36 03:40:00 Test Item Value Reference Range Interpretation Comments Eosinophils (test code = 0.5 See_Comment [A utomated message] The Eosinophils) system which ge nerated this result tra nsmitted reference range : <=4.0. The reference r natasha was not used to int erpret this result as normal/abnormal . [facility] HospitalOglobraRBYUNZKMLP2051-05-20 03:40:00 Test Item Value Reference Range Interpretation Comments Basophils (test code = 1.1 See_Comment [Aut omated message] The Basophils) system which ge nerated this result tra nsmitted reference range : <=1.0. The reference r natasha was not used to int erpret this result as normal/abnormal . [facility] HospitalNdubckrVGZCJMBKZH6701-25-05 03:40:00 Test Item Value Reference Range Interpretation Comments Lymphocytes # (test code = Lymphocytes 4.0 1.0-5.5 #) [facility] HospitalQkwaemlZENGCKXXCE6378-73-81 03:40:00 Test Item Value Reference Range Interpretation Comments Monocytes # (test code 0.8 See_Comment [Aut omated message] The = Monocytes #) system which generated this result tra nsmitted reference range : <=0.8. The reference r natasha was not used to int erpret this result as normal/abnormal . [facility] HospitalSxdxexmNJKNZQXKVM5742-55-03 03:40:00 Test Item Value Reference Range Interpretation Comments Eosinophils # (test code 0.1 See_Comment [A utomated message] The = Eosinophils #) system whic h generated this result tra nsmitted reference range : <=0.5. The reference r natasha was not used to int erpret this result as normal/abnormal . [facility] HospitalIoncexbZEOUWZKDBM1140-78-19 03:40:00 Test Item Value Reference Range Interpretation Comments Basophils # (test code 0.2 See_Comment [Aut omated message] The = Basophils #) system which generated this result tra nsmitted reference range : <=0.2. The reference r natasha was not used to int erpret this result as normal/abnormal . [facility] HospitalLgilcaeXJNBIYBBST1076-19-08 03:40:00 Test Item Value Reference Range Interpretation Comments Segs (test code = Segs) 67.1 45.0-75.0 [facility] HospitalYnucveuWIZPVQTHWE1262-86-73 03:40:00 Test Item Value Reference Range Interpretation Comments Lymphocytes (test code = Lymphocytes) 26.0 20.0-40.0 [facility] HospitalSqzgfimFKLNYGYXAN0302-27-42 03:40:00 Test Item Value Reference Range Interpretation Comments Monocytes (test code = Monocytes) 5.3 2.0-12.0 [facility] HospitalAooyffjVPCDLAEWIE7489-16-33 03:40:00 Test Item Value Reference Range Interpretation Comments RDW (test code = RDW) 12.8 11.5-14.5 [facility] HospitalNzeilipJRSLTISRHQ8977-40-97 03:40:00 Test Item Value Reference Range Interpretation Comments Platelet (test code = Platelet) 189 133-450 [facility] HospitalFbrshkwQOSKKELUOE7115-86-17 03:40:00 Test Item Value Reference Range Interpretation Comments MPV (test code = MPV) 6.1 7.4-10.4 [facility] HospitalHzyrhjpEMSINHFMNX7747-11-42 03:40:00 Test Item Value Reference Range Interpretation Comments Hgb (test code = Hgb) 15.9 14.0-18.0 [facility] HospitalVumuhvqNNNUVDBYHV2648-30-40 03:40:00 Test Item Value Reference Range Interpretation Comments Hct (test code = Hct) 45.4 42.0-54.0 [facility] HospitalSpqyoxeKEGIUFJMUL2274-72-19 03:40:00 Test Item Value Reference Range Interpretation Comments MCV (test code = MCV) 95.1 80.0-94.0 [facility] HospitalDyikdufOUQCZBPTFR3544-54-43 03:40:00 Test Item Value Reference Range Interpretation Comments MCH (test code = MCH) 33.3 pg 27.0-31.0 [facility] HospitalIzxwqucQKBBOWEHKT6246-56-60 03:40:00 Test Item Value Reference Range Interpretation Comments MCHC (test code = MCHC) 35.0 32.0-36.0 [facility] HospitalXjsgfpzSVCUZILYSD2345-99-33 03:40:00 Test Item Value Reference Range Interpretation Comments WBC (test code = WBC) 15.6 3.7-10.4 [facility] HospitalFleaqjhGXVEPQOZDA1563-55-29 03:40:00 Test Item Value Reference Range Interpretation Comments RBC (test code = RBC) 4.77 4.70-6.10 [facility] HospitalPwhvpruORVWJVWETR0678-04-43 03:40:00 Test Item Value Reference Range Interpretation Comments G-value Rapid (test code = G-value 3.7 5.0-11.6 Rapid) [facility] HospitalPedygkxPBBAKDQBEX9276-38-15 03:40:00 Test Item Value Reference Range Interpretation Comments Max Amplitude Rapid (test code = Max 42 mm 52-71 Amplitude Rapid) [facility] HospitalOmoetsfHISTJDDUBU4961-89-47 03:40:00 Test Item Value Reference Range Interpretation Comments Estimated % Lysis Rapid 3.4 See_Comment [Au tomated message] The (test code = Estimated syste m which generated % Lysis Rapid) this result t ransmitted reference range : <=7.5. The reference r natasha was not used to int erpret this result as normal/abnormal . [facility] HospitalAsojyjwYYPCKHQHRJ8346-32-21 03:40:00 Test Item Value Reference Range Interpretation Comments Split Point Rapid (test code = Split 0.7 min Point Rapid) [facility] HospitalLdwuywjDPMHDVBXRW7773-30-92 03:40:00 Test Item Value Reference Range Interpretation Comments R-time Rapid (test code = R-time 1.1 min 0.4-0.7 Rapid) [facility] HospitalZdnuwtjQHMLOGGXDF4467-70-29 03:40:00 Test Item Value Reference Range Interpretation Comments ACT (TEG) Rapid (test code = ACT (TEG) 152 s 86-118 Rapid) [facility] HospitalXbfjyewGAYGWVLWSG9063-46-21 03:40:00 Test Item Value Reference Range Interpretation Comments K-time Rapid (test code = K-time 4.1 min 0.6-2.3 Rapid) [facility] HospitalGnepsqdBDVPEWUTRZ6990-03-36 03:40:00 Test Item Value Reference Range Interpretation Comments Angle Rapid (test code = Angle 48 degrees 64-80 Rapid) [facility] CenterVeagomjIUGHCYQCQS4179-95-53 03:40:00 Test Item Value Reference Range Interpretation Comments Etoh (%) (test code = Etoh (%)) 0.148 [facility] CenterXwnnmjyDXIFEQDDQS7625-92-96 03:40:00 Test Item Value Reference Range Interpretation Comments Ethanol Lvl (test code = Ethanol Lvl) 148 [facility]LtlqmtfLTZBEYZVFPLG7837-38-81 03:40:00 Test Item Value Reference Range Interpretation Comments AGAP (test code = AGAP) 18.2 10.0-20.0 [facility] HospitalRafkwunOQXJSKMQWSBK7849-37-08 03:40:00 Test Item Value Reference Range Interpretation Comments eGFR (test code = eGFR) 86 [facility] HospitalYavyfhpKEEGWJRBALDK2148-10-53 03:40:00 Test Item Value Reference Range Interpretation Comments Sodium Lvl (test code = Sodium Lvl) 137 135-145 [facility] HospitalNedrmkhCXSNKZTJJVXN8954-55-52 03:40:00 Test Item Value Reference Range Interpretation Comments CO2 (test code = CO2) 24 24-32 [facility] HospitalPhyempeWNWSNKIGOHCX1751-75-72 03:40:00 Test Item Value Reference Range Interpretation Comments Chloride Lvl (test code = Chloride Lvl) 98 95-109 [facility] HospitalFesozzwJROVMDYZJXEW3370-80-69 03:40:00 Test Item Value Reference Range Interpretation Comments Potassium Lvl (test code = Potassium 3.2 3.5-5.1 Lvl) [facility] HospitalZqohxvkUKDKIQGWHJMA0626-12-69 03:40:00 Test Item Value Reference Range Interpretation Comments BUN (test code = BUN) 14 7-22 [facility] HospitalUmelfjyFOKYHSVHSAOK5807-10-31 03:40:00 Test Item Value Reference Range Interpretation Comments Glucose Lvl (test code = Glucose Lvl) 80 70-99 [facility] HospitalDsiubyqMXDKJUVWEVMZ4497-22-58 03:40:00 Test Item Value Reference Range Interpretation Comments Creatinine Lvl (test code = Creatinine 1.15 0.50-1.40 Lvl) [facility] HospitalBbiokxuFLGWCHRBZHKN0958-14-72 03:40:00 Test Item Value Reference Range Interpretation Comments Calcium Lvl (test code = Calcium Lvl) 9.0 8.5-10.5 [facility] HospitalWojttwyLTRENXZEEJ5737-37-41 03:40:00 Test Item Value Reference Range Interpretation Comments Segs-Bands # (test code = Segs-Bands #) 10.5 1.5-8.1 [facility] HospitalKgwejewJCZWKBDJTB8885-27-64 03:40:00 Test Item Value Reference Range Interpretation Comments Eosinophils (test code = 0.5 See_Comment [A utomated message] The Eosinophils) system which ge nerated this result tra nsmitted reference range : <=4.0. The reference r natasha was not used to int erpret this result as normal/abnormal . [facility] HospitalHpfiyhjSUEKNNGFGH0344-30-41 03:40:00 Test Item Value Reference Range Interpretation Comments Basophils (test code = 1.1 See_Comment [Aut omated message] The Basophils) system which ge nerated this result tra nsmitted reference range : <=1.0. The reference r natasha was not used to int erpret this result as normal/abnormal . [facility] HospitalJkbtsiiUYLKECJJXR5092-38-38 03:40:00 Test Item Value Reference Range Interpretation Comments Lymphocytes # (test code = Lymphocytes 4.0 1.0-5.5 #) [facility] HospitalUiamfguCZOHBKUOVM2560-62-56 03:40:00 Test Item Value Reference Range Interpretation Comments Monocytes # (test code 0.8 See_Comment [Aut omated message] The = Monocytes #) system which generated this result tra nsmitted reference range : <=0.8. The reference r natasha was not used to int erpret this result as normal/abnormal . [facility] HospitalEiyafvvJYBIYFYPHA4400-91-47 03:40:00 Test Item Value Reference Range Interpretation Comments Eosinophils # (test code 0.1 See_Comment [A utomated message] The = Eosinophils #) system whic h generated this result tra nsmitted reference range : <=0.5. The reference r natasha was not used to int erpret this result as normal/abnormal . [facility] HospitalFljuhrpUKIBPATTPD0716-48-21 03:40:00 Test Item Value Reference Range Interpretation Comments Basophils # (test code 0.2 See_Comment [Aut omated message] The = Basophils #) system which generated this result tra nsmitted reference range : <=0.2. The reference r natasha was not used to int erpret this result as normal/abnormal . [facility] HospitalNmvcfpyYUVNJVUZRO9233-07-08 03:40:00 Test Item Value Reference Range Interpretation Comments Segs (test code = Segs) 67.1 45.0-75.0 [facility] HospitalBnfijahESFLXUMJCA2923-75-18 03:40:00 Test Item Value Reference Range Interpretation Comments Lymphocytes (test code = Lymphocytes) 26.0 20.0-40.0 [facility] HospitalOqsuiojSHNSIQVOUY1571-10-07 03:40:00 Test Item Value Reference Range Interpretation Comments Monocytes (test code = Monocytes) 5.3 2.0-12.0 [facility] HospitalCgzrqyhGNIDXSMFTC2149-03-41 03:40:00 Test Item Value Reference Range Interpretation Comments RDW (test code = RDW) 12.8 11.5-14.5 [facility] HospitalLvmifwbDSLMCCIFBS9800-92-22 03:40:00 Test Item Value Reference Range Interpretation Comments Platelet (test code = Platelet) 189 133-450 [facility] HospitalZxhczndJOEHNMOMFM8276-30-98 03:40:00 Test Item Value Reference Range Interpretation Comments MPV (test code = MPV) 6.1 7.4-10.4 [facility] HospitalZdbzqbdUKFRJGMCOB0952-57-48 03:40:00 Test Item Value Reference Range Interpretation Comments Hgb (test code = Hgb) 15.9 14.0-18.0 [facility] HospitalHgchlhhJIBSRXBXJU2101-79-38 03:40:00 Test Item Value Reference Range Interpretation Comments Hct (test code = Hct) 45.4 42.0-54.0 [facility] HospitalHbjqsnrKIOCSGIFTB3468-67-23 03:40:00 Test Item Value Reference Range Interpretation Comments MCV (test code = MCV) 95.1 80.0-94.0 [facility] HospitalEjkbogfHRDMEICFWJ6407-41-00 03:40:00 Test Item Value Reference Range Interpretation Comments MCH (test code = MCH) 33.3 pg 27.0-31.0 [facility] HospitalXtqffqcJAZIFWGXER7415-74-27 03:40:00 Test Item Value Reference Range Interpretation Comments MCHC (test code = MCHC) 35.0 32.0-36.0 [facility] HospitalLuqencyQJVIEGJMHC3160-80-06 03:40:00 Test Item Value Reference Range Interpretation Comments WBC (test code = WBC) 15.6 3.7-10.4 [facility] HospitalBqtysiwNPIOFPESDH1973-68-36 03:40:00 Test Item Value Reference Range Interpretation Comments RBC (test code = RBC) 4.77 4.70-6.10 [facility] HospitalGpvxfjcLSHRRBQMPJ8502-12-42 03:40:00 Test Item Value Reference Range Interpretation Comments G-value Rapid (test code = G-value 3.7 5.0-11.6 Rapid) [facility] HospitalJzqbcmxOAMMQGKIFF2782-02-02 03:40:00 Test Item Value Reference Range Interpretation Comments Max Amplitude Rapid (test code = Max 42 mm 52-71 Amplitude Rapid) [facility] HospitalPomknikVSDKFOMRWX9468-73-39 03:40:00 Test Item Value Reference Range Interpretation Comments Estimated % Lysis Rapid 3.4 See_Comment [Au tomated message] The (test code = Estimated syste m which generated % Lysis Rapid) this result t ransmitted reference range : <=7.5. The reference r natasha was not used to int erpret this result as normal/abnormal . [facility] HospitalIdwmeyoMMRTXSZSMB1018-25-17 03:40:00 Test Item Value Reference Range Interpretation Comments Split Point Rapid (test code = Split 0.7 min Point Rapid) [facility] HospitalKlvphnyXOICJIYSOP1522-63-07 03:40:00 Test Item Value Reference Range Interpretation Comments R-time Rapid (test code = R-time 1.1 min 0.4-0.7 Rapid) [facility] HospitalRogvtwkBANGATNNLA6314-88-98 03:40:00 Test Item Value Reference Range Interpretation Comments ACT (TEG) Rapid (test code = ACT (TEG) 152 s 86-118 Rapid) [facility] HospitalGjpwsecWQFBGOJZVC3737-49-41 03:40:00 Test Item Value Reference Range Interpretation Comments K-time Rapid (test code = K-time 4.1 min 0.6-2.3 Rapid) [facility] HospitalMidobxlKFFXUOPTZQ1659-75-45 03:40:00 Test Item Value Reference Range Interpretation Comments Angle Rapid (test code = Angle 48 degrees 64-80 Rapid) [facility] HospitalTknfuieWGKAUXBVEY2480-83-51 03:40:00 Test Item Value Reference Range Interpretation Comments Etoh (%) (test code = Etoh (%)) 0.148 [place] [id number] 03:40:00 Test Item Value Reference Range Interpretation Comments Ethanol Lvl (test code = Ethanol Lvl) 148 [facility] HospitalIlbkotwZEWQRWQJEXOR5997-05-56 03:40:00 Test Item Value Reference Range Interpretation Comments AGAP (test code = AGAP) 18.2 10.0-20.0 [facility] HospitalJawfltsYUYRSUDRGMHJ2306-13-91 03:40:00 Test Item Value Reference Range Interpretation Comments eGFR (test code = eGFR) 86 [facility] HospitalNhhmfdgBAEDNGBXSJWL0634-56-10 03:40:00 Test Item Value Reference Range Interpretation Comments Sodium Lvl (test code = Sodium Lvl) 137 135-145 [facility] HospitalZmccoztQMKFZUTAMTCN2049-68-86 03:40:00 Test Item Value Reference Range Interpretation Comments CO2 (test code = CO2) 24 24-32 [facility] HospitalFlzartmLUPHUZOQEHRN2143-65-51 03:40:00 Test Item Value Reference Range Interpretation Comments Chloride Lvl (test code = Chloride Lvl) 98 95-109 [facility] HospitalQmvhpobJTGDVBCUTNSQ9371-62-57 03:40:00 Test Item Value Reference Range Interpretation Comments Potassium Lvl (test code = Potassium 3.2 3.5-5.1 Lvl) [facility] HospitalIltbwmiMHTIPUNAWDJS0995-47-74 03:40:00 Test Item Value Reference Range Interpretation Comments BUN (test code = BUN) 14 7-22 [facility] HospitalKydrhczTYGPRVKDQCZZ1654-55-91 03:40:00 Test Item Value Reference Range Interpretation Comments Glucose Lvl (test code = Glucose Lvl) 80 70-99 [facility] HospitalXxivphiYHTSWQXVRZXI9458-61-03 03:40:00 Test Item Value Reference Range Interpretation Comments Creatinine Lvl (test code = Creatinine 1.15 0.50-1.40 Lvl) [facility] HospitalAfrvjyyBRLTDOBWCQIE3409-85-49 03:40:00 Test Item Value Reference Range Interpretation Comments Calcium Lvl (test code = Calcium Lvl) 9.0 8.5-10.5 [facility] HospitalFdckaycABXESJAYRT2944-36-10 03:40:00 Test Item Value Reference Range Interpretation Comments Segs-Bands # (test code = Segs-Bands #) 10.5 1.5-8.1 [facility] HospitalQyjuanzXDHITDIJTV7655-61-23 03:40:00 Test Item Value Reference Range Interpretation Comments Eosinophils (test code = 0.5 See_Comment [A utomated message] The Eosinophils) system which nerated this result tra nsmitted reference range : <=4.0. The reference r natasha was not used to int erpret this result as normal/abnormal . [facility] HospitalXgnunypEYLNGNDIUZ2352-72-16 03:40:00 Test Item Value Reference Range Interpretation Comments Basophils (test code = 1.1 See_Comment [Aut omated message] The Basophils) system which ge nerated this result tra nsmitted reference range : <=1.0. The reference r natasha was not used to int erpret this result as normal/abnormal . [facility] HospitalCkktnhuLBTRMLJHIY5844-36-23 03:40:00 Test Item Value Reference Range Interpretation Comments Lymphocytes # (test code = Lymphocytes 4.0 1.0-5.5 #) [facility] HospitalReldveyJNGGRAGIXV7920-57-87 03:40:00 Test Item Value Reference Range Interpretation Comments Monocytes # (test code 0.8 See_Comment [Aut omated message] The = Monocytes #) system which generated this result tra nsmitted reference range : <=0.8. The reference r natasha was not used to int erpret this result as normal/abnormal . [facility] HospitalPxmwxarMNUKRVZGKQ6770-64-23 03:40:00 Test Item Value Reference Range Interpretation Comments Eosinophils # (test code 0.1 See_Comment [A utomated message] The = Eosinophils #) system whic h generated this result tra nsmitted reference range : <=0.5. The reference r natasha was not used to int erpret this result as normal/abnormal . [facility] HospitalXgdgwxhNVBVTPXIWU7764-00-36 03:40:00 Test Item Value Reference Range Interpretation Comments Basophils # (test code 0.2 See_Comment [Aut omated message] The = Basophils #) system which generated this result tra nsmitted reference range : <=0.2. The reference r natasha was not used to int erpret this result as normal/abnormal . [facility] HospitalIibtztoQHAHIYRSXB2929-76-36 03:40:00 Test Item Value Reference Range Interpretation Comments Segs (test code = Segs) 67.1 45.0-75.0 [facility] HospitalHtkelqtXCXLQAWWJQ5409-73-61 03:40:00 Test Item Value Reference Range Interpretation Comments Lymphocytes (test code = Lymphocytes) 26.0 20.0-40.0 [facility] HospitalMtpvedmCYHBMTIOZE7892-87-33 03:40:00 Test Item Value Reference Range Interpretation Comments Monocytes (test code = Monocytes) 5.3 2.0-12.0 [facility] HospitalCwgmbybBUEQDUPQRO8003-31-10 03:40:00 Test Item Value Reference Range Interpretation Comments RDW (test code = RDW) 12.8 11.5-14.5 [facility] HospitalTnpdhxtKXYFGKPNJC8600-52-58 03:40:00 Test Item Value Reference Range Interpretation Comments Platelet (test code = Platelet) 189 133-450 [facility] HospitalCehnpmfBQJYZAHOYI4664-82-38 03:40:00 Test Item Value Reference Range Interpretation Comments MPV (test code = MPV) 6.1 7.4-10.4 [facility] HospitalVyprmvlKJUDZJUTEG9748-77-80 03:40:00 Test Item Value Reference Range Interpretation Comments Hgb (test code = Hgb) 15.9 14.0-18.0 [facility] HospitalQfxjgzuFGCRNEVIEZ9885-88-50 03:40:00 Test Item Value Reference Range Interpretation Comments Hct (test code = Hct) 45.4 42.0-54.0 [facility] HospitalLfujmtaKTPAFSZHIA0895-41-01 03:40:00 Test Item Value Reference Range Interpretation Comments MCV (test code = MCV) 95.1 80.0-94.0 [facility] HospitalSiincblVZJGKUPZJL1336-49-12 03:40:00 Test Item Value Reference Range Interpretation Comments MCH (test code = MCH) 33.3 pg 27.0-31.0 [facility] HospitalVrltrruFMQONVXBLG7189-07-63 03:40:00 Test Item Value Reference Range Interpretation Comments MCHC (test code = MCHC) 35.0 32.0-36.0 [facility] HospitalExyzmzsXVVBQBVXTH0486-48-11 03:40:00 Test Item Value Reference Range Interpretation Comments WBC (test code = WBC) 15.6 3.7-10.4 [facility] HospitalVsquuvfEWXCMZSICC0400-40-26 03:40:00 Test Item Value Reference Range Interpretation Comments RBC (test code = RBC) 4.77 4.70-6.10 [facility] HospitalCamjasoXFSBZGNFYP2980-49-21 03:40:00 Test Item Value Reference Range Interpretation Comments G-value Rapid (test code = G-value 3.7 5.0-11.6 Rapid) [facility] HospitalEuovjspIBAYAACNNO8780-74-08 03:40:00 Test Item Value Reference Range Interpretation Comments Max Amplitude Rapid (test code = Max 42 mm 52-71 Amplitude Rapid) [facility] HospitalSosduxtKFUKRTKJCJ8043-65-89 03:40:00 Test Item Value Reference Range Interpretation Comments Estimated % Lysis Rapid 3.4 See_Comment [Au tomated message] The (test code = Estimated syste m which generated % Lysis Rapid) this result t ransmitted reference range : <=7.5. The reference r natasha was not used to int erpret this result as normal/abnormal . [facility] HospitalYbtmrndCFBXFBIJZG7662-44-42 03:40:00 Test Item Value Reference Range Interpretation Comments Split Point Rapid (test code = Split 0.7 min Point Rapid) [facility] HospitalOqfjzsfIDCCYVZGQY0396-77-20 03:40:00 Test Item Value Reference Range Interpretation Comments R-time Rapid (test code = R-time 1.1 min 0.4-0.7 Rapid) [facility] HospitalWgcpuyaDEHSTWIXTW9974-80-60 03:40:00 Test Item Value Reference Range Interpretation Comments ACT (TEG) Rapid (test code = ACT (TEG) 152 s 86-118 Rapid) [facility]zqbygzDTCVCZISTQ9519-85-54 03:40:00 Test Item Value Reference Range Interpretation Comments K-time Rapid (test code = K-time 4.1 min 0.6-2.3 Rapid) [facility]BmtbwpqGDTNKCZHUO4036-64-42 03:40:00 Test Item Value Reference Range Interpretation Comments Angle Rapid (test code = Angle 48 degrees 64-80 Rapid) [place] [id number] 03:40:00 Test Item Value Reference Range Interpretation Comments Etoh (%) (test code = Etoh (%)) 0.148 [place] [id number] 03:40:00 Test Item Value Reference Range Interpretation Comments Ethanol Lvl (test code = Ethanol Lvl) 148 [facility]PexbhezDWJQUMYQLEHA4885-76-60 03:40:00 Test Item Value Reference Range Interpretation Comments AGAP (test code = AGAP) 18.2 10.0-20.0 [facility] HospitalMgwqxlpUNUHMJRAAROU0272-43-31 03:40:00 Test Item Value Reference Range Interpretation Comments eGFR (test code = eGFR) 86 [facility] HospitalOwuefgiJEVJESVJUNGM3512-13-26 03:40:00 Test Item Value Reference Range Interpretation Comments Sodium Lvl (test code = Sodium Lvl) 137 135-145 [facility] HospitalVihxptgQYHAIEZUEXIE1399-03-66 03:40:00 Test Item Value Reference Range Interpretation Comments CO2 (test code = CO2) 24 24-32 [facility] HospitalUhshcrmICJIMFMCAMGE4163-66-08 03:40:00 Test Item Value Reference Range Interpretation Comments Chloride Lvl (test code = Chloride Lvl) 98 95-109 [facility] HospitalZvshfghODKMZCYCRFXM4902-84-01 03:40:00 Test Item Value Reference Range Interpretation Comments Potassium Lvl (test code = Potassium 3.2 3.5-5.1 Lvl) [facility] HospitalHyosldcGAOEKZHBLMSL6502-90-51 03:40:00 Test Item Value Reference Range Interpretation Comments BUN (test code = BUN) 14 7-22 [facility] HospitalHfslkvpANGJUISYPXOK3628-35-74 03:40:00 Test Item Value Reference Range Interpretation Comments Glucose Lvl (test code = Glucose Lvl) 80 70-99 [facility] HospitalYzcesqjXOUXLRVLSMWF0086-33-95 03:40:00 Test Item Value Reference Range Interpretation Comments Creatinine Lvl (test code = Creatinine 1.15 0.50-1.40 Lvl) [facility] HospitalKlntrpfQZRVYSLANCXO8930-10-64 03:40:00 Test Item Value Reference Range Interpretation Comments Calcium Lvl (test code = Calcium Lvl) 9.0 8.5-10.5 [facility]PwopouqMXKDCECLKB3427-20-15 03:40:00 Test Item Value Reference Range Interpretation Comments Segs-Bands # (test code = Segs-Bands #) 10.5 1.5-8.1 [facility] HospitalDgfsjvtRYXOPFGHFZ0762-06-52 03:40:00 Test Item Value Reference Range Interpretation Comments Eosinophils (test code = 0.5 See_Comment [A utomated message] The Eosinophils) system which ge nerated this result tra nsmitted reference range : <=4.0. The reference r natasha was not used to int erpret this result as normal/abnormal . [facility] HospitalPqedqwyMCFXDYWRIO0773-39-97 03:40:00 Test Item Value Reference Range Interpretation Comments Basophils (test code = 1.1 See_Comment [Aut omated message] The Basophils) system which ge nerated this result tra nsmitted reference range : <=1.0. The reference r natasha was not used to int erpret this result as normal/abnormal . [facility] HospitalQcymiizHYZKTLULOH9016-80-94 03:40:00 Test Item Value Reference Range Interpretation Comments Lymphocytes # (test code = Lymphocytes 4.0 1.0-5.5 #) [facility] HospitalSyinfrcEFVULRXASL9724-95-30 03:40:00 Test Item Value Reference Range Interpretation Comments Monocytes # (test code 0.8 See_Comment [Aut omated message] The = Monocytes #) system which generated this result tra nsmitted reference range : <=0.8. The reference r natasha was not used to int erpret this result as normal/abnormal . [facility] HospitalWtgodajILRGNEYQUY4727-16-42 03:40:00 Test Item Value Reference Range Interpretation Comments Eosinophils # (test code 0.1 See_Comment [A utomated message] The = Eosinophils #) system whic h generated this result tra nsmitted reference range : <=0.5. The reference r natasha was not used to int erpret this result as normal/abnormal . [facility] HospitalIhfrvdxYAJDKSATOG0818-48-21 03:40:00 Test Item Value Reference Range Interpretation Comments Basophils # (test code 0.2 See_Comment [Aut omated message] The = Basophils #) system which generated this result tra nsmitted reference range : <=0.2. The reference r natasha was not used to int erpret this result as normal/abnormal . [facility] HospitalYphgmkcWJBKYEWEVC2929-18-57 03:40:00 Test Item Value Reference Range Interpretation Comments Segs (test code = Segs) 67.1 45.0-75.0 [facility] HospitalEcjsbhmZNDVYKHRFS7913-46-87 03:40:00 Test Item Value Reference Range Interpretation Comments Lymphocytes (test code = Lymphocytes) 26.0 20.0-40.0 [facility] HospitalOzcedesPNFSBTRUUQ1371-31-51 03:40:00 Test Item Value Reference Range Interpretation Comments Monocytes (test code = Monocytes) 5.3 2.0-12.0 [facility] HospitalNbrkbnjMQZSEXTRZK0512-29-63 03:40:00 Test Item Value Reference Range Interpretation Comments RDW (test code = RDW) 12.8 11.5-14.5 [facility] HospitalZkqsnytVDCBXDMHAR2353-56-20 03:40:00 Test Item Value Reference Range Interpretation Comments Platelet (test code = Platelet) 189 133-450 [facility] HospitalIbswiroNIVOHCDBRO5657-02-36 03:40:00 Test Item Value Reference Range Interpretation Comments MPV (test code = MPV) 6.1 7.4-10.4 [facility] HospitalYltvgfsKLEMRFXMOO0178-62-19 03:40:00 Test Item Value Reference Range Interpretation Comments Hgb (test code = Hgb) 15.9 14.0-18.0 [facility] HospitalBbdgiycZZVIOVJSPQ5345-36-72 03:40:00 Test Item Value Reference Range Interpretation Comments Hct (test code = Hct) 45.4 42.0-54.0 [facility] HospitalNqfgsawGXEIUOFYCC8743-64-97 03:40:00 Test Item Value Reference Range Interpretation Comments MCV (test code = MCV) 95.1 80.0-94.0 [facility] HospitalNubrivaXMJGEKGIWM0536-27-30 03:40:00 Test Item Value Reference Range Interpretation Comments MCH (test code = MCH) 33.3 pg 27.0-31.0 [facility] HospitalUfdjqctRPAJXGAYAD3232-80-31 03:40:00 Test Item Value Reference Range Interpretation Comments MCHC (test code = MCHC) 35.0 32.0-36.0 [facility] HospitalMldohjuXBLZFXQYLK0872-47-03 03:40:00 Test Item Value Reference Range Interpretation Comments WBC (test code = WBC) 15.6 3.7-10.4 [facility] HospitalVvvebwiTRJQURSIWU3404-83-50 03:40:00 Test Item Value Reference Range Interpretation Comments RBC (test code = RBC) 4.77 4.70-6.10 [facility] HospitalQmmgbfqGMLJNKVWOE5050-88-10 03:40:00 Test Item Value Reference Range Interpretation Comments G-value Rapid (test code = G-value 3.7 5.0-11.6 Rapid) [facility] HospitalGgajwpySOAIZNEPSR9042-24-42 03:40:00 Test Item Value Reference Range Interpretation Comments Max Amplitude Rapid (test code = Max 42 mm 52-71 Amplitude Rapid) [facility] HospitalKnwttlkSZFBZFCMQJ3504-09-18 03:40:00 Test Item Value Reference Range Interpretation Comments Estimated % Lysis Rapid 3.4 See_Comment [Au tomated message] The (test code = Estimated syste m which generated % Lysis Rapid) this result t ransmitted reference range : <=7.5. The reference r natasha was not used to int erpret this result as normal/abnormal . [facility] HospitalAijsvulKJMKRBKIUH1719-01-30 03:40:00 Test Item Value Reference Range Interpretation Comments Split Point Rapid (test code = Split 0.7 min Point Rapid) [facility] HospitalUzvjarnPMTVRBTVYH5116-18-58 03:40:00 Test Item Value Reference Range Interpretation Comments R-time Rapid (test code = R-time 1.1 min 0.4-0.7 Rapid) [facility] HospitalNwqfgtkWHUYWHLCQO1384-12-68 03:40:00 Test Item Value Reference Range Interpretation Comments ACT (TEG) Rapid (test code = ACT (TEG) 152 s 86-118 Rapid) [facility] HospitalHwzcaueYANVEMFQKX5461-82-59 03:40:00 Test Item Value Reference Range Interpretation Comments K-time Rapid (test code = K-time 4.1 min 0.6-2.3 Rapid) [facility]YgmtnetYEZZMGKWVF7804-63-10 03:40:00 Test Item Value Reference Range Interpretation Comments Angle Rapid (test code = Angle 48 degrees 64-80 Rapid) [place] [id number] 03:40:00 Test Item Value Reference Range Interpretation Comments Etoh (%) (test code = Etoh (%)) 0.148 [place] [id number] 03:40:00 Test Item Value Reference Range Interpretation Comments Ethanol Lvl (test code = Ethanol Lvl) 148 [facility] HospitalKnoqilgGSBLSQBEEURE1818-75-22 03:40:00 Test Item Value Reference Range Interpretation Comments AGAP (test code = AGAP) 18.2 10.0-20.0 [facility] HospitalEmsvpkwUUJRJGADQQSB8992-23-18 03:40:00 Test Item Value Reference Range Interpretation Comments eGFR (test code = eGFR) 86 [facility] HospitalYhmxkxqROUZDGZXWBYM5924-90-50 03:40:00 Test Item Value Reference Range Interpretation Comments Sodium Lvl (test code = Sodium Lvl) 137 135-145 [facility] HospitalDqvobqrLXZMGPQETBDH9768-92-95 03:40:00 Test Item Value Reference Range Interpretation Comments CO2 (test code = CO2) 24 24-32 [facility] HospitalHyyjtuiBJVATOYWVMNC8770-54-33 03:40:00 Test Item Value Reference Range Interpretation Comments Chloride Lvl (test code = Chloride Lvl) 98 95-109 [facility] HospitalHwptpvkYBSPDQCEZRFU5939-13-05 03:40:00 Test Item Value Reference Range Interpretation Comments Potassium Lvl (test code = Potassium 3.2 3.5-5.1 Lvl) [facility] HospitalPssgwlbXXHYCKHVDLLM2340-25-13 03:40:00 Test Item Value Reference Range Interpretation Comments BUN (test code = BUN) 14 7-22 [facility] HospitalFadwtyvYUCRNCSXRQWZ4240-80-09 03:40:00 Test Item Value Reference Range Interpretation Comments Glucose Lvl (test code = Glucose Lvl) 80 70-99 [facility] HospitalVteueafXJLAJFNDSZYU3639-92-22 03:40:00 Test Item Value Reference Range Interpretation Comments Creatinine Lvl (test code = Creatinine 1.15 0.50-1.40 Lvl) [facility] HospitalYuelivgWATLZIBFPMIS9879-75-79 03:40:00 Test Item Value Reference Range Interpretation Comments Calcium Lvl (test code = Calcium Lvl) 9.0 8.5-10.5 [facility] HospitalEhvkkbkYTDPEHMFTE3972-50-09 03:40:00 Test Item Value Reference Range Interpretation Comments Segs-Bands # (test code = Segs-Bands #) 10.5 1.5-8.1 [facility] HospitalZobiurtQBEZWSOOQM6892-22-76 03:40:00 Test Item Value Reference Range Interpretation Comments Eosinophils (test code = 0.5 See_Comment [A utomated message] The Eosinophils) system which ge nerated this result tra nsmitted reference range : <=4.0. The reference r natasha was not used to int erpret this result as normal/abnormal . [facility] HospitalCbixgetZZHSLDBKFP1455-14-76 03:40:00 Test Item Value Reference Range Interpretation Comments Basophils (test code = 1.1 See_Comment [Aut omated message] The Basophils) system which ge nerated this result tra nsmitted reference range : <=1.0. The reference r natasha was not used to int erpret this result as normal/abnormal . [facility] HospitalNzlucixGOPSUPIZRZ8974-23-68 03:40:00 Test Item Value Reference Range Interpretation Comments Lymphocytes # (test code = Lymphocytes 4.0 1.0-5.5 #) [facility] HospitalCpsrghnHNLIXRCPPC4068-87-10 03:40:00 Test Item Value Reference Range Interpretation Comments Monocytes # (test code 0.8 See_Comment [Aut omated message] The = Monocytes #) system which generated this result tra nsmitted reference range : <=0.8. The reference r natasha was not used to int erpret this result as normal/abnormal . [facility] HospitalHugvxkaTVLTNDWSPE5644-56-20 03:40:00 Test Item Value Reference Range Interpretation Comments Eosinophils # (test code 0.1 See_Comment [A utomated message] The = Eosinophils #) system whic h generated this result tra nsmitted reference range : <=0.5. The reference r natasha was not used to int erpret this result as normal/abnormal . [facility] HospitalZrgkeplOPCJPNQSKU0625-86-75 03:40:00 Test Item Value Reference Range Interpretation Comments Basophils # (test code 0.2 See_Comment [Aut omated message] The = Basophils #) system which generated this result tra nsmitted reference range : <=0.2. The reference r natasha was not used to int erpret this result as normal/abnormal . [facility] HospitalJdpswiaBMMHTQLHNX5277-04-16 03:40:00 Test Item Value Reference Range Interpretation Comments Segs (test code = Segs) 67.1 45.0-75.0 [facility] HospitalZwzseakSIUQGHMVZF9184-48-39 03:40:00 Test Item Value Reference Range Interpretation Comments Lymphocytes (test code = Lymphocytes) 26.0 20.0-40.0 [facility] HospitalGatyvbiOHFSYDQNLH8758-77-33 03:40:00 Test Item Value Reference Range Interpretation Comments Monocytes (test code = Monocytes) 5.3 2.0-12.0 [facility] HospitalTgicfaoHNHXTDDXGC7603-42-72 03:40:00 Test Item Value Reference Range Interpretation Comments RDW (test code = RDW) 12.8 11.5-14.5 [facility] HospitalNksnkbdXEWUQRYHSB7582-57-91 03:40:00 Test Item Value Reference Range Interpretation Comments Platelet (test code = Platelet) 189 133-450 [facility] HospitalDztsqkyGTGCINKQUD5325-50-29 03:40:00 Test Item Value Reference Range Interpretation Comments MPV (test code = MPV) 6.1 7.4-10.4 [facility] HospitalWfxyphtYCVNXECOZP9731-67-78 03:40:00 Test Item Value Reference Range Interpretation Comments Hgb (test code = Hgb) 15.9 14.0-18.0 [facility] HospitalHumpfgmOXELLMVIST8391-15-93 03:40:00 Test Item Value Reference Range Interpretation Comments Hct (test code = Hct) 45.4 42.0-54.0 [facility] HospitalDlwjaisRDGGNFZOUU3365-64-17 03:40:00 Test Item Value Reference Range Interpretation Comments MCV (test code = MCV) 95.1 80.0-94.0 [facility] HospitalWyyqwzaVOQBJDBXUT3613-77-17 03:40:00 Test Item Value Reference Range Interpretation Comments MCH (test code = MCH) 33.3 pg 27.0-31.0 [facility] HospitalRxxghuqEZIXFBEJSQ6253-82-26 03:40:00 Test Item Value Reference Range Interpretation Comments MCHC (test code = MCHC) 35.0 32.0-36.0 [facility] HospitalXjqpzgfKPMWQPILZB2039-29-14 03:40:00 Test Item Value Reference Range Interpretation Comments WBC (test code = WBC) 15.6 3.7-10.4 [facility] HospitalAxhimknYNICRIDCCZ0173-45-40 03:40:00 Test Item Value Reference Range Interpretation Comments RBC (test code = RBC) 4.77 4.70-6.10 [facility] HospitalPeqlrblBXWSNGGVVI2267-92-99 03:40:00 Test Item Value Reference Range Interpretation Comments G-value Rapid (test code = G-value 3.7 5.0-11.6 Rapid) [facility] HospitalTxggxrvHJHASVVNMB5863-78-79 03:40:00 Test Item Value Reference Range Interpretation Comments Max Amplitude Rapid (test code = Max 42 mm 52-71 Amplitude Rapid) [facility] HospitalDsoxanyIMGRMAWRVP4626-81-40 03:40:00 Test Item Value Reference Range Interpretation Comments Estimated % Lysis Rapid 3.4 See_Comment [Au tomated message] The (test code = Estimated syste m which generated % Lysis Rapid) this result t ransmitted reference range : <=7.5. The reference r natasha was not used to int erpret this result as normal/abnormal . [facility] HospitalMukvnqgCVGUNJADJV1752-71-70 03:40:00 Test Item Value Reference Range Interpretation Comments Split Point Rapid (test code = Split 0.7 min Point Rapid) [facility] HospitalWjlmiwqXWEPCTUSYY2125-15-80 03:40:00 Test Item Value Reference Range Interpretation Comments R-time Rapid (test code = R-time 1.1 min 0.4-0.7 Rapid) [facility] HospitalVrhhmblQYJFYDZRWK4305-39-14 03:40:00 Test Item Value Reference Range Interpretation Comments ACT (TEG) Rapid (test code = ACT (TEG) 152 s 86-118 Rapid) [facility] GTGQGGB9100-82-97 03:38:00 Test Item Value Reference Range Interpretation Comments ABO/Rh (test code = ABO/Rh) O NEG [facility] [employer] [id number] 03:38:00 Test Item Value Reference Range Interpretation Comments Antibody Scrn (test Negative (11/09/16 9:38 code = Antibody Scrn) PM) [facility] ClubSoundFocusStudy[facility] [id number] 03:38:00 Test Item Value Reference Range Interpretation Comments ABO/Rh (test code = ABO/Rh) O NEG [facility] WCBBLYR7432-04-17 03:38:00 Test Item Value Reference Range Interpretation Comments Antibody Scrn (test Negative (11/09/16 9:38 code = Antibody Scrn) PM) [facility] [employer] [id number] 03:38:00 Test Item Value Reference Range Interpretation Comments ABO/Rh (test code = ABO/Rh) O NEG [facility] [employer] [id number] 03:38:00 Test Item Value Reference Range Interpretation Comments Antibody Scrn (test Negative (11/09/16 9:38 code = Antibody Scrn) PM) [facility] [employer] [id number] 03:38:00 Test Item Value Reference Range Interpretation Comments ABO/Rh (test code = ABO/Rh) O NEG [facility] [employer] [id number] 03:38:00 Test Item Value Reference Range Interpretation Comments Antibody Scrn (test Negative (11/09/16 9:38 code = Antibody Scrn) PM) [facility] [employer] [id number] 03:38:00 Test Item Value Reference Range Interpretation Comments ABO/Rh (test code = ABO/Rh) O NEG [facility] [employer] [id number] 03:38:00 Test Item Value Reference Range Interpretation Comments Antibody Scrn (test Negative (11/09/16 9:38 code = Antibody Scrn) PM) [facility] [employer] [id number] 03:38:00 Test Item Value Reference Range Interpretation Comments ABO/Rh (test code = ABO/Rh) O NEG [facility] [employer] [id number] 03:38:00 Test Item Value Reference Range Interpretation Comments Antibody Scrn (test Negative (11/09/16 9:38 code = Antibody Scrn) PM) [facility] [employer] [id number] 03:38:00 Test Item Value Reference Range Interpretation Comments ABO/Rh (test code = ABO/Rh) O NEG [facility] [employer] [id number] 03:38:00 Test Item Value Reference Range Interpretation Comments Antibody Scrn (test Negative (11/09/16 9:38 code = Antibody Scrn) PM) [facility] Date/Time Note Provider Source 2016-12-19 EXAM: XR LEFT ANKLE 2 V[facility]WS [facility] 12:05:22-00:00 DATE: 12/19/2016 9:22 AM CDT [facility] er INDICATION: Fracture - LT ANKLE POSTOP COMPARISON: [...] ally displaced medial and posterior malleolus fractures. 2016-11-18 EXAM: XR LEFT TIBIA-FIBULA 2 VIEWS [facility] 19:11:00-00:00 EXAM: XR LEFT ANKLE 3 VIEWS [facility] er EXAM: XR LEFT FOOT 3 VIEWS DATE: 11/18/2016 6:58 PM [facility] GENER[facility] COUNSEL INDICATION: Pain, Trauma COMPARISON: X-ray left ankle [...] the forefoot.. IMPRESSION: 1. Unchanged alignment of un stable trimalleolar ankle fracture with involvement of the medial malleolus, distal fibula and posterior malleolus status post external fixation and reduction. 2. Moderate circumferential soft tissue swelling at the ankle with mild soft tissue swelling overlying the forefoot. 2016-11-18 EXAM: XR LEFT TIBIA-FIBULA 2 VIEWS [facility] 19:11:00-00:00 EXAM: XR LEFT ANKLE 3 VIEWS Cent er EXAM: XR LEFT FOOT 3 VIEWS DATE: 11/18/2016 6:58 PM [facility] GENERAL COUNSEL INDICATION: Pain, Trauma COMPARISON: X-ray left ankle [...] the forefoot.. IMPRESSION: 1. Unchanged alignment of un stable trimalleolar ankle fracture with involvement of the medial malleolus, distal fibula and posterior malleolus status post external fixation and reduction. 2. Moderate circumferential soft tissue swelling at the ankle with mild soft tissue swelling overlying the forefoot. 2016-11-18 EXAM: XR LEFT TIBIA-FIBULA 2 VIEWS [facility] 19:11:00-00:00 EXAM: XR LEFT ANKLE 3 VIEWS Cent er EXAM: XR LEFT FOOT 3 VIEWS DATE: 11/18/2016 6:58 PM [facility]PUT[facility] GENERAL COUNSEL INDICATION: Pain, Trauma COMPARISON: X-ray left ankle [...] the forefoot.. IMPRESSION: 1. Unchanged alignment of un stable trimalleolar ankle fracture with involvement of the medial malleolus, distal fibula and posterior malleolus status post external fixation and reduction. 2. Moderate circumferential soft tissue swelling at the ankle with mild soft tissue swelling overlying the forefoot. 2016-11-12 EXAM: XR LEFT ANKLE 3 VIEWS [facility] 08:20:00-00:00 DATE: 11/12/2016 8:13 AM [facility] Cent er INDICATION: Pain and swelling COMPARISON: Left ankle radiograph dated 11/09/19 17 2342 hours, 2122 hours. TECHNIQUE: AP, lateral and oblique radiographs o f the left ankle FINDINGS: The overlying spli nt limits fine bony and soft tissue detail. There is been interval placement of external fixation device. Overall unchanged appearance of trimalleolar fracture. Soft tissue swelling about the left ankle is unchanged. IMPRESSION: Unchanged alignm ent of unstable trimalleolar fracture status post closed reduction and external fixation. 2016-11-10 EXAM: XR RIGHT ANKLE 3 VIEWS [facility] 13:50:30-00:00 EXAM: XR RIGHT foot 3 VIEWS Cent er DATE: 11/10/2016 1:34 PM [facility]PUT[facility] GENERAL COUNSEL INDICATION: Pain from a fall COMPARISON: None TECHNIQUE: AP, oblique and lateral radiographs o f the ankle and foot FINDINGS: There is irregularity in the tibial sesamoid and apparent fracture line. No acute fracture or malalig nment is identified in the ankle. The ankle mortise is congruent. No soft tissue abnormality is identified. IMPRESSION: Cortical irregularity in the tibial sesamoid likely fractured, acute to subacute. Please correlate clinically and with further imaging if necessary. 2016-11-10 EXAM: XR RIGHT ANKLE 3 VIEWS [facility] 13:50:30-00:00 EXAM: XR RIGHT foot 3 VIEWS Cent er DATE: 11/10/2016 1:34 PM [facility]PUT[facility] GENERAL COUNSEL INDICATION: Pain from a fall COMPARISON: None TECHNIQUE: AP, oblique and lateral radiographs o f the ankle and foot FINDINGS: There is irregularity in the tibial sesamoid and apparent fracture line. No acute fracture or malalig nment is identified in the ankle. The ankle mortise is congruent. No soft tissue abnormality is identified. IMPRESSION: Cortical irregularity in the tibial sesamoid likely fractured, acute to subacute. Please correlate clinically and with further imaging if necessary. 2016-11-10 EXAM: CT LEFT ANKLE WITHOUT CONTRAST [facility] 10:18:34-00:00 DATE: 11/10/2016 0956 hours Cente INDICATION: Fracture COMPARISON: Radiographs of the left [...] of the left ankle as above . 2016-11-09 EXAM: XR LEFT KNEE 3 VIEWS [facility] 23:40:00-00:00 EXAM: XR LEFT TIBIA-FIBULA 2 VIEWS Center EXAM: XR LEFT ANKLE 3 VIEWS EXAM: XR LEFT FOOT 3 VIEWS DATE: 11/09/2016 11:42 PM [facility]PUT[facility] GENERAL COUNSEL INDICATION: Fracture COMPARISON: None TECHNIQUE: AP, lateral [...] ankle. 4. There is no additional ac [place] fracture identified within the left knee or left foot. The left foot is partially obscured by the overlying cast. 5. Generalized, circumferential soft tissue robert a of left ankle. 2016-11-09 EXAM: XR LEFT KNEE 3 VIEWS [facility] 23:40:00-00:00 EXAM: XR LEFT TIBIA-FIBULA 2 VIEWS Center EXAM: XR LEFT ANKLE 3 VIEWS EXAM: XR LEFT FOOT 3 VIEWS DATE: 11/09/2016 11:42 PM [facility]PUT[facility] GENERAL COUNSEL INDICATION: Fracture COMPARISON: None TECHNIQUE: AP, lateral [...] ankle. 4. There is no additional ac [place] fracture identified within the left knee or left foot. The left foot is partially obscured by the overlying cast. 5. Generalized, circumferential soft tissue robert a of left ankle. 2016-11-09 EXAM: XR LEFT KNEE 3 VIEWS [facility] 23:40:00-00:00 EXAM: XR LEFT TIBIA-FIBULA 2 VIEWS Center EXAM: XR LEFT ANKLE 3 VIEWS EXAM: XR LEFT FOOT 3 VIEWS DATE: 11/09/2016 11:42 PM DEPUTY GENERAL COUNSEL INDICATION: Fracture COMPARISON: None TECHNIQUE: AP, lateral [...] ankle. 4. There is no additional ac [place] fracture identified within the left knee or left foot. The left foot is partially obscured by the overlying cast. 5. Generalized, circumferential soft tissue robert a of left ankle. 2016-11-09 EXAM: [facility] EX[facility]: XR LEFT TIBIA-FIBULA 2 VIEWS Center EXAM: XR LEFT ANKLE 3 VIEWS EXAM: XR LEFT FOOT 3 VIEWS DATE: 11/09/2016 11:42 PM DEPUTY GENERAL COUNSEL INDICATION: Fracture COMPARISON: None TECHNIQUE: AP, lateral [...] ankle. 4. There is no additional ac [place] fracture identified within the left knee or left foot. The left foot is partially obscured by the overlying cast. 5. Generalized, circumferential soft tissue robert a of left ankle. 2016-11-09 CT HEAD WITHOUT CONTRAST [facility] 22:20:00-00:00 DATE: 06/20/2017 at 10:14 PM. COMPARISON: None. [...] Dr. Aruna Andre: No acute intracranial abnormality. 2016-11-09 EXAM: CT CERVICAL SPINE WITHOUT CONTRAST [facility] 22:20:00-00:00 DATE: 11/09/2016 9:39 PM DEPUTY GENERAL COUNSEL Cente r INDICATION: trauma COMPARISON: None TECHNIQUE: Volumetric CT acq uisition of the cervical spine without contrast. Axial, [...] stenosis. Small central disc protrusion at C3-C4. 2016-11-09 EXAM: CT CHEST WITH CONTRAST [facility] 22:20:00-:00 EXAM: CT ABDOMEN AND PELVIS WITH CONTRAST Center DATE: 11/09/2016 9:40 PM DEPUTY GENERAL COUNSEL INDICATION: trauma COMPARISON: None. TECHNIQUE: Volumetric CT [...] pelvic injury. Fatty change of the liver. 2016-11-09 EXAM: XR PELVIS AP 1 VIEW Cameron sun [facility] 21:22:00-00:00 DATE: 11/09/20162 hours DEPUTY GENERAL COUNSEL Ce nter INDICATION: trauma COMPARISON: None TECHNIQUE: AP pelvis -- single view. FINDINGS: No fracture, periosteal reaction, or erosions id entified. Joint alignment is normal. Degenerative changes of the hips noted. Soft tissues are unremarkable. IMPRESSION: No fractures identified. 2016-11-09 EXAM: X[facility] LEFT ANKLE 3 [facility] DATE: 11/09/2016 2122 hours DEPUTY GENERAL COUNSEL Ce nter INDICATION: trauma COMPARISON: None available TECHNIQUE: AP, lateral and oblique radiographs of the left ankle FINDINGS: Mildly displaced Rodriguez B dis ejtt fibular fracture extending to the level of [...] space indicating tibiotalar and tibiofibular syndesmosis instability. 2016-11-09 EXAM: XR CHEST AP 1 VIEW Lilly limon [facility] 21:22:00-00:00 DATE: 11/09/2016 9:28 PM DEPUTY GENERAL COUNSEL Cente r INDICATION: trauma COMPARISON: None TECHNIQUE: Chest AP -- 1 View FINDINGS: Cardiac silhouette size is normal. Central pulmonary vascularity is within normal l imits. Mediastinal and hilar contours are normal. No airspace consolidation, pleural effusion, or pneumothorax present. Skeletal structures demonstrate no acute finding s. IMPRESSION: No acute cardiopulmonary abnormality is observed .
--- NOTE | 2023-05-07 10:10 | ER ---
Nurse's Notes [facility] Name: Bro Yung Age: 58 yrs Sex: Male : 1965 Arrival Date: 05/07/2023 Time: 09:38 Bed 12 Private MD: Diagnosis: Cutaneous abscess of left axilla Presentation: 05/07 09:54 Chief complaint: Patient states: left axillary abscess started about 2 months ago. eh3 Coronavirus screen: Vaccine status: Patient reports being unvaccinated. Ebola Screen: No symptoms or risks identified at this time. Initial Sepsis Screen: Does the patient meet any 2 criteria? No. Patient's initial sepsis screen is negative. Does the patient have a suspected source of infection? Yes: Skin breakdown/wound. Risk Assessment: Do you want to hurt yourself or someone else? Patient reports no desire to harm self or others. Onset of symptoms was May 07, 2023. 09:54 Method Of Arrival: Ambulatory [facility] 09:54 Acuity: PATRICIO 3 eh3 Triage Assessment: 09:55 General: Appears in no apparent distress. uncomfortable, Behavior is cooperative, eh3 appropriate for age, drowsy. Pain: Complains of pain in left axilla. Neuro: Level of Consciousness is awake, alert, obeys commands, Oriented to person, place, time, situation. Cardiovascular: Capillary refill < 3 seconds Patient's skin is warm and dry. Respiratory: Airway is patent Respiratory effort is even, unlabored, Respiratory pattern is regular, symmetrical. GI: Abdomen is round non-distended. Derm: Skin is pink, warm \T\ dry. Musculoskeletal: Circulation, motion, and sensation intact. Historical: - PMHx: 09:55 Anxiety; Bipolar disorder; Depression; eh3 - PSHx: 09:55 Ankle; eye; Nose; Tonsillectomy; eh3 - Immunization history:: Adult Immunizations up to date. - Social history:: Smoking status: Patient reports the use of cigarette tobacco products, smokes one pack cigarettes per day. Screenin:34 [facility] ED Fall Risk Assessment (Adult) History of falling in the last 3 months, tf2 including since admission No falls in past 3 months (0 pts) Confusion or Disorientation No (0 pts) Intoxicated or Sedated No (0 pts) Impaired Gait No (0 pts) Mobility Assist Device Used No (0 pt) Altered Elimination No (0 pt) Score/Fall Risk Level 0 - 2 = Low Risk Oriented to surroundings, Maintained a safe environment, Educated pt \T\ family on fall prevention, incl call for assistance when getting out of bed, Provided non-skid footwear. 10:38 Abuse screen: Denies threats or abuse. Denies injuries from another. Nutritional tf2 screening: No deficits noted. Tuberculosis screening: No symptoms or risk factors identified. Assessment: 10:34 General: Appears in no apparent distress. Pain: Denies pain. Neuro: No deficits noted. tf2 Cardiovascular: No deficits noted. Respiratory: No deficits noted. GI: No deficits noted. : No deficits noted. EENT: No deficits noted. Derm: Wound noted left arm Other: multiple small abscessed areas to left armpit; no drainage noted;. Musculoskeletal: No deficits noted. Vital Signs: 09:54 BP 135 / 87; Pulse 79; Resp 18; Temp 96.4(TE); Pulse Ox 100% ; Weight 63.5 kg; Height 5 eh3 ft. 8 in. ; Pain 4/10; 10:34 BP 110 / 51; Pulse 67; Resp 16; Pulse Ox 100% on R/A; tf2 09:54 Body Mass Index 21.29 (63.50 kg, 172.72 cm) eh3 09:54 Pain Scale: Adult eh3 [place] Coma Score: 10:34 Eye Response: spontaneous(4). Motor Response: obeys commands(6). Verbal Response: tf2 oriented(5). Total: 15. ED Course: 09:45 Patient arrived in ED. rg4 09:51 [facility]ell [facility] jh7 09:51 Chuy Broderick MD is Attending Physician. jh7 09:55 Triage completed. eh3 09:55 Arm band placed on. eh3 10:26 Izabel Clay, RN is Primary Nurse. tf2 10:34 Patient has correct armband on for positive identification. Bed in low position. Call tf2 light in reach. Side rails up X2. Provided Education on: medication Good RX program for obtaining prescriptions. 10:34 No provider procedures requiring assistance completed. Patient did not have IV access tf2 during this emergency room visit. Administered Medications: 10:34 Drug: Ketorolac IM 30 mg Route: IM; Site: left deltoid; tf2 10:34 Follow up: BP 110 / 51; Pulse 67 bpm; Resp 16 bpm; Pulse Ox 100% RA tf2 Medication: 10:38 VIS not applicable for this client. tf2 Outcome: 10:10 Discharge ordered by . [email or web address] 10:34 Discharged to home ambulatory. tf2 10:34 Condition: stable 10:34 Discharge instructions given to patient, Instructed on discharge instructions, medication usage, Demonstrated understanding of Prescriptions given X 2. 11:28 Patient left the ED. ph Signatures: Mirta Patricio, RN RN Raquel Rinaldi 4 Ursula Patricio, RN RN 3 Sandra Parnell, STRUCTURAL STEEL WORKER STRU[employer]URAL STEEL WORKER 7 Izabel Clay, RN RN tf2
--- NOTE | 2023-05-07 10:10 | EDPHYS ---
Physician Documentation [facility] Name: Bro Yung Age: 58 yrs Sex: Male : 1965 Arrival Date: 05/07/2023 Time: 09:38 Bed 12 Private MD: ED Physician Chuy Broderick HPI: 05/07 09:57 This 58 yrs old Male presents to ER via Ambulatory with complaints of Abscess. [facility] 09:57 The patient presents with an abscess of the left axilla. Description: The affected area jh7 is very small, multiple, localized, swollen. Onset: The symptoms/episode began/occurred 2 week(s) ago. Patient presents with multiple small abscesses located under the left axilla worsening over the past 2 weeks. Denies fever, streaking, chest pain, or any other symptoms.. Historical: - PMHx: 09:55 Anxiety; Bipolar disorder; Depression; eh3 - PSHx: 09:55 Ankle; eye; Nose; Tonsillectomy; eh3 - Immunization history:: Adult Immunizations up to date. - Social history:: Smoking status: Patient reports the use of cigarette tobacco products, smokes one pack cigarettes per day. ROS: 09:57 Constitutional: Negative for fever, chills, and weight loss, Eyes: Negative for injury, jh7 pain, redness, and discharge, Cardiovascular: Negative for chest pain, palpitations, and edema, Respiratory: Negative for shortness of breath, cough, wheezing, and pleuritic chest pain, Abdomen/GI: Negative for abdominal pain, nausea, vomiting, diarrhea, and constipation, MS/Extremity: Negative for injury and deformity, Neuro: Negative for headache, weakness, numbness, tingling, and seizure. 09:57 Skin: Positive for abscess, of the left axilla, Negative for cellulitis. 09:57 All other systems are negative. Exam: 09:57 Constitutional: This is a well developed, well nourished patient who is awake, alert, jh7 and in no acute distress. Cardiovascular: Regular rate and rhythm with a normal S1 and S2. No gallops, murmurs, or rubs. Normal PMI, no JVD. No pulse deficits. Respiratory: Lungs have equal breath sounds bilaterally, clear to auscultation and percussion. No rales, rhonchi or wheezes noted. No increased work of breathing, no retractions or nasal flaring. Abdomen/GI: Soft, non-tender, with normal bowel sounds. No distension or tympany. No guarding or rebound. No evidence of tenderness throughout. MS/ Extremity: Pulses equal, no cyanosis. Neurovascular intact. Full, normal range of motion. Neuro: Awake and alert, GCS 15, oriented to person, place, time, and situation. Motor strength 5/5 in all extremities. Sensory grossly intact. Normal gait. 09:57 Skin: abscess, Multiple (8-10) very small erythematous tender lesions with no fluctuance present under the left axilla.. Vital Signs: 09:54 BP 135 / 87; Pulse 79; Resp 18; Temp 96.4(TE); Pulse Ox 100% ; Weight 63.5 kg; Height 5 eh3 ft. 8 in. ; Pain 4/10; 10:34 BP 110 / 51; Pulse 67; Resp 16; Pulse Ox 100% on R/A; tf2 09:54 Body Mass Index 21.29 (63.50 kg, 172.72 cm) 3 09:54 Pain Scale: Adult eh3 [place] Coma Score: 10:34 Eye Response: spontaneous(4). Motor Response: obeys commands(6). Verbal Response: tf2 oriented(5). Total: 15. MDM: 09:51 Patient medically screened. [facility] 10:35 Differential diagnosis: abscess, allergic reaction, cellulitis, insect bite, jh7 Folliculitis, hidradenitis suppurativa. Data reviewed: vital signs, nurses notes. I considered the following discharge prescriptions or medication management in the emergency department Medications were administered in the Emergency Department. See MAR. Care significantly affected by the following Social Determinants of Health: Poor access to healthcare and/or lack of insurance. Counseling: I had a detailed discussion with the patient and/or guardian regarding: the historical points, exam findings, and any diagnostic results supporting the discharge/admit diagnosis, to return to the emergency department if symptoms worsen or persist or if there are any questions or concerns that arise at home. Response to treatment: the patient's symptoms have mildly improved after treatment. Administered Medications: 10:34 Drug: Ketorolac IM 30 mg Route: IM; Site: left deltoid; tf2 10:34 Follow up: BP 110 / 51; Pulse 67 bpm; Resp 16 bpm; Pulse Ox 100% RA tf2 Disposition: 14:17 Co-signature as Attending Physician, Chuy Broderick MD I reviewed the patient's care rn provided by the Advanced Practice Provider and agree with the diagnosis and treatment plan. Disposition Summary: 05/07/23 10:10 Discharge Ordered Location: Home [facility] Problem: new [facility] Symptoms: are unchanged [facility] Condition: Stable [facility] Diagnosis - Cutaneous abscess of left axilla [facility] Followup: [facility] - With: Private Physician - When: 2 - 3 days - Reason: Recheck today's complaints Discharge Instructions: - Discharge Summary Sheet [facility] - Skin Abscess [facility] Forms: - Medication Reconciliation Form [facility] - Thank You Letter [facility] - Antibiotic Education [facility] - Patient Portal Instructions [facility] Prescriptions: - mupirocin 2 % Topical ointment - apply 1 application by TOPICAL route 3 times per day for 7 days; 22 gram tube; [facility] Refills: 0, Product Selection Permitted - Bactrim DS 800-160 mg Oral Tablet - take 1 tablet by ORAL route every 12 hours for 10 days; 20 tablet; Refills: 0, [facility] Product Selection Permitted Signatures: Chuy Broderick MD MD rn Hall, Erin RN RN 3 Sandra Parnell, [place] [id number] Izabel Clay RN RN tf2
[2023-05-07] MEDS ORDERED: KETOROLAC 30 MG/ML INJ ONE (10:38)
[2023-05-07 11:35] VITALS: TEMP 96.4; O2SAT 100
[2023-05-07 11:36] VITALS: BP 110/51
== END 2023-05-07 11:28 | disposition home or self-care (01) ==
LOC: ER 09:38
DX: L02.412 Cutaneous abscess of left axilla (principal); F17.210 Nicotine dependence, cigarettes, uncomplicated
CPT/HCPCS: 96372; 99284

== ENCOUNTER 2023-05-23 23:25 | Emergency (ER) | payer OTHER ==
--- OUTSIDE RECORDS SUMMARY | 2023-05-23 23:39 | XMS REPORT | Continuity of Care Document ---
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 therapy: 5 days enoxaparin 2021-10 Yes 40mg 40 mg, Unive rs (LOVENOX) 10-03 Subcutaneo ity of injection 22:00: [place], DAILY, [place] 40 mg 00 First dose Medical on [place] Branch 08/03/22 at 1700, Until Discontinu ed, Routine enoxaparin 2021-10 No 40mg 40 mg, Univ ers (LOVENOX) 10-03 Subcutaneo ity of injection 22:00: 23:42 us, DAILY, [place] 40 mg 00 :25 First dose Medical on [place] Branch 08/03/22 at 1700, Until Discontinu ed, Routine nicotine 2021-10- No 1{patch 1 Patch, U antoinette (NICODERM) 10-03 } Topical, ity of 21 mg/24 hr 17:00: 16:07 Administer [place] patch 1 00 :45 over 24 Medical Patch Hours, Branch Q24H, First dose on [place] 08/03/22 at 1200, Until Discontinu ed, Routine ceFEPIme 2021-10 No 1000mg 1,000 mg, U nivers (MAXIPIME) 10-03 IV ity of 1,000 mg in 16:30: 18:52 [place], [place] NaCl 0.9% 00 :00 ONCE, 1 Medical (NS) 50 mL dose, On Bran h MINI-BAG [place] 08/03/22 at 1130, Administer over 30 Minutes, 50 mL
Reas on for Anti-Infec tive: Empiric Therapy for Suspected Infection< br>Empiric Therapy Site: Skin / Soft tissue
Duration of therapy: 5 days LORazepam 2021-10 Yes 1mg 1 mg, Univers (ATIVAN) 10-03 Oral, ity of tablet 1 mg 15:46: TIDPRN, [place] as 20 Starting Medical on [facility] Branch 08/03/22 at 1046, Until Discontinu ed, Routine, Anxiety, Agitation LORazepam 2021-10- No 1mg 1 mg, Univer s (ATIVAN) 10-03 Oral, ity of tablet 1 mg 15:46: 23:42 [place]IDPRN, [place] 20 :25 Starting Medical on [facility] Branch 08/03/22 at 1046, Until 08/06/22 at 1742, Routine, Anxiety, Agitation HYDROcodone 2021-10- No 1{tbl} 1 tablet, Univers -acetaminop 10-03 Oral, ity of hen (NORCO 15:23: 15:22 Q6HPRN, [place] as 5) 5-325 mg 34 :34 Starting Medi mele tablet 1 on [facility] tablet 08/03/22 at 1023, Until 08/05/22 at 1022, Routine, Pain (scale 4-6) acetaminoph 2021-10 Yes 650mg 650 mg, Un whit en 10-03 Oral, ity of (TYLENOL) 15:23: Q6HPRN, [place] tablet 650 32 Starting Medic al mg on [facility] Branch 08/03/22 at 1023, Until Discontinu ed, Routine, Pain (scale 1-3) acetaminoph 2021-10- No 650mg 650 mg, U nivers en 10-03 Oral, ity of (TYLENOL) 15:23: 23:42 Q6HPRN, [place] tablet 650 32 :25 Starting Medic al mg on [facility] 08/03/22 at 1023, Until 08/06/22 at 1742, Routine, Pain (scale 1-3) vancomycin 2021-10- No 15mg/kg 1,000 mg Univers (VANCOCIN) 10-03 (rounded ity of 1,000 mg in 11:45: 12:32 from 952.5 [place] NaCl 0.9% 00 :00 mg = 15 Medical (NS) 250 mL mg/kg Branch VIAL-MATE ?63.5 kg), IV IV piggyback Piggyback, ONCE, 1 dose, On [facility] 08/03/22 at 0645, Administer over 60 Minutes, 250 mL
Reas on for Anti-Infec tive: Empiric Therapy for Suspected Infection< br>Empiric Therapy Site: Skin / Soft tissue
Duration of therapy: 72 hours morpHINE (4 2021-10- No 4mg 4 mg, Slow Univers mg/mL) 10-03 IV Push, ity of injection 4 10:30: 10:50 ONCE, 1 [place] mg 00 :00 dose, On [facility] 08/03/22 at 0530, Routine morpHINE (4 2021-10 No 4mg 4 mg, Slow Univers mg/mL) 0- 10-13 IV Push, ity of injection 4 22:30: 22:40 ONCE, 1 [place] mg 00 :00 dose, On [facility] 07/13/22 at 1730, STAT iopamidol 2021-10- No [id number] 75mL 75 mL, Univers (ISOVUE 0-13 10-13 201485 Intravenou ity of 370-500 mL) 21:12: 21:15 s, ONCE, 1 [place] injection 00 :00 dose, On Medica l 75 mL [facility] 07/13/22 at 1615, Routine ondansetron 2021-10- No 4mg 4 mg, Slow Univers (ZOFRAN 0-13 10-13 IV Push, ity of (PF)) 19:45: 20:11 ONCE, 1 [place] injection 4 00 :00 dose, On Medi mele mg [facility] 07/13/22 at 1445, FELICITA morpHINE (4 2021-10- No 4mg 4 mg, Slow Univers mg/mL) 07-13 IV Push, ity of injection 4 19:45: 20:11 ONCE, 1 [place] mg 00 :00 dose, On Medical [facility] 07/13/22 at 1445, STAT levoFLOXaci 2021-10- No [id number] 500mg Take 1 Univers n 500 mg - tablet by ity o f tablet 00:00: 04:59 mouth [place] 00 :00 every 24 Medical (twenty-fo Branch ur) hours for 10 days. polyethylen 2021-10- No [id number] 17g Take 17 g Univers e glycol 07-21 by mouth ity of 3350 17 00:00: 04:59 in the [place] gram/dose 00 :00 morning Medical powder and 17 g Branch in the evening. Do all this for 7 days. cephALEXin 2021- No [id number] 500mg Take 1 Univers 500 mg 06-08 [id number] capsule by ity of capsule 00:00: 04:59 mouth 4 [place] 00 :00 (four) Medical times Branch daily for 7 days. aspirin Yes 81mg 81 mg, Univers chewable 05-28 Oral, ity of tablet 81 14:00: DAILY, [place] mg 00 First dose Medical on [facility] 05/28/22 at 0900, Until Discontinu ed, Routine enoxaparin Yes 40mg 40 mg, Unive rs (LOVENOX) 05-28 Subcutaneo ity of injection 14:00: us, DAILY, [place] 40 mg 00 First dose Medical on [facility] 05/28/22 at 0900, Until Discontinu ed, Routine aspirin 2021- No 325mg 325 mg, Unive rs tablet 325 05-28 Oral, ity of mg 14:00: 23:23 DAILY, [place] 00 :25 First dose Medical on [facility] 05/28/22 at 0900, Until Discontinu ed, Routine NaCl 0.9% Yes 1000mL at 100 Univ ers (NS) IV 8-28 mL/hr, IV ity of infusion 05:00: Infusion, [place] 1,000 mL 00 CONTINUOUS Medic al , Starting Branch on 05/28/22 at 0000, Until Discontinu ed, Routine KCL No 20meq 20 mEq, Univers (KLOR-CON 05-28 Oral, ity of M20) tablet 03:30: 03:46 ONCE, 1 [place] 20 mEq 00 :00 dose, On Medical Sat Branch 05/27/22 at 2230, Routine cyclobenzap No 5mg 5 mg, Univ ers rine 05-28 Oral, ity of (FLEXERIL) 03:30: 03:46 ONCE, 1 [place] as tablet 5 mg 00 :00 dose, On Medi mele Sat Branch 05/27/22 at 2230, Routine atorvastati No 40mg 40 mg, Uni vers n (LIPITOR) 05-28 Oral, ity of tablet 40 03:30: 03:46 ONCE, 1 [place] mg 00 :00 dose, On Medical Sat Branch 05/27/22 at 2230, Routine HYDROcodone Yes 1{tbl} 1 tablet, Univers -acetaminop 05-28 Oral, ity of hen (NORCO) 02:43: Q6HPRN, [place] as 10-325 mg 45 Starting Medica l tablet 1 on [facility] Branch tablet 05/27/22 at 2143, Until Discontinu [...] Oral, ity of (TYLENOL 23:12: 23:11 Q6HPRN, [place] #3) 300-30 44 :44 Starting Medic al mg tablet 1 on Sat Branch tablet 05/27/22 at 1812, Until 05/29/22 at 1811, Routine, Pain (scale 4-6) acetaminoph Yes 650mg 650 mg, Un whit en 05-27 Oral, ity of (TYLENOL) 23:12: Q6HPRN, [place] tablet 650 41 Starting Medic al mg [...] 05-27 medication it y of 17:59: s [place] 39 Medical Branch neomycin-po 2020-10 Yes [id number] 3[drp] Place 3 Univers lymyxin-hyd 2-28 Drops in ity of rocortisone 00:00: right ear [place] 3.5-10,000- 00 4 (four) Medi mele 1 times Branch mg/mL-unit/ daily. mL-% otic susp ibuprofen 2020-10 Yes [id number] 600mg Take 1 Univers 600 mg 2-28 tablet by ity of tablet 00:00: mouth [place] 00 every 6 Medical (six) Branch hours as needed for Pain (scale 4-6). neomycin-po 2020-10 Yes [id number] 3[drp] Place 3 Univers lymyxin-hyd 2-28 Drops in ity of rocortisone 00:00: right ear [place] 3.5-10,000- 00 4 (four) Medi mele 1 times Branch mg/mL-unit/ daily. mL-% otic susp ibuprofen 2020-10 Yes [id number] 600mg Take 1 Univers 600 mg 2-28 tablet by ity of tablet 00:00: mouth [place] 00 every 6 Medical (six) Branch hours as needed for Pain (scale 4-6). neomycin-po 2020-10- No [id number] 3[drp] Place 3 Univers lymyxin-hyd 11-28 Drops in ity of rocortisone 00:00: 00:00 right ear [place] 3.5-10,000- 00 :00 4 (four) Medi mele 1 times Branch mg/mL-unit/ daily. mL-% otic susp ibuprofen 2020-10- No [id number] 600mg Take 1 Univers 600 mg 11-28 tablet by ity of tablet 00:00: 00:00 mouth [place] 00 :00 every 6 Medical (six) Branch hours as needed for Pain (scale 4-6). HYDROcodone Yes 1{tbl} Take 1 [place] rris -acetaminop 5-[address] [facility] leonel (Skyonic) 10:06: mouth 10-325 mg 05 every 6 tablet hours as needed for Pain. HYDROcodone Yes 1{tbl} Take 1 [place] rris -acetaminop 5-02 tablet by [facility] hen (Skyonic) 10:06: mouth 10-325 mg 05 every 6 tablet hours as needed for Pain. baclofen Yes Chronic 10mg Take 1 [place] is (LIORESAL) 5-02 back pain, tablet by [facility] 10 mg 00:00: unspecified mouth 3 tablet 00 back times location, daily. unspecified back pain laterality gabapentin Yes Chronic 400mg Take 1 H arris (NEURONTIN) 5-02 back pain, capsule by [facility] 400 mg 00:00: unspecified mouth 3 capsule [...] Femi (VENTOLIN 5-02 ed asthma, Puffs by Health [...] Femi (VENTOLIN 5-02 ed asthma, Puffs by Health [...] Femi (VENTOLIN 5-02 ed asthma, Puffs by Health HFA,PROVENT 00:00: unspecified mouth 4 [place] 00 asthma times HFA,PROAIR severity daily as HFA) 90 needed for mcg/actuati Wheezing. on inhaler acetaminoph Yes S/P ORIF 1{tbl} Take 1 Kahn en-codeine 3-29 (open tablet by [facility] (TYLENOL/CO 00:00: reduction mouth DEINE #3) 00 internal every 6 300-30 mg fixation) hours as per tablet fracture needed for Pain. acetaminoph 2017-0 Yes S/P ORIF 1{tbl} Take 1 [place]ahn en-codeine 3-29 (open tablet by [facility] (TYLENOL/CO 00:00: reduction mouth DEINE #3) 00 internal every 6 300-30 mg fixation) hours as per tablet fracture needed for Pain. acetaminoph 2017-0 Yes S/P ORIF 1{tbl} Take 1 [place]ahn en-codeine 3-29 (open tablet by [facility] (TYLENOL/CO 00:00: reduction mouth DEINE #3) 00 internal every 6 300-30 mg fixation) hours as per tablet fracture needed for Pain. acetaminoph 2017-0 Yes S/P ORIF 1{tbl} Take 1 [place]ahn en-codeine 3-29 (open tablet by [facility] (TYLENOL/CO 00:00: reduction mouth DEINE #3) 00 internal every 6 300-30 mg fixation) hours as per tablet fracture needed for Pain. naproxen 2017 Yes Pain in 500mg Q.5D Take 1 Kareem ris (NAPROSYN) 3-27 left foot tablet by [facility] 500 mg 00:00: mouth 2 tablet 00 times daily (with meals). naproxen 2017-0 Yes Pain in 500mg Q.5D Take 1 Kareem ris (NAPROSYN) 3-27 left foot tablet by [facility] 500 mg 00:00: mouth 2 tablet 00 times daily (with meals). miconazole 2016- Yes Tinea Q.5D Apply to Gorman rris (MICOTIN) 2 3-27 cruris affected He alth % topical 00:00: area 2 cream 00 times daily. miconazole 2017-0 Yes Tinea Q.5D Apply to [facility] rris (MICOTIN) 2 3-27 cruris affected He alth % topical 00:00: area 2 cream 00 times daily. naproxen 2017-0 Yes Pain in 500mg Q.5D Take 1 Kareem ris (NAPROSYN) 3-27 left foot tablet by [facility] 500 mg 00:00: mouth 2 tablet 00 times daily (with meals). miconazole 2017- Yes Tinea Q.5D Apply to [facility] rris (MICOTIN) 2 3-27 cruris affected He alth % topical 00:00: area 2 cream 00 times daily. naproxen Yes Pain in 500mg Q.5D Take 1 Kareem ris (NAPROSYN) 12-25 left foot tablet by Health 500 mg [...] patch 12-21 Route: l 02:00: TOP, Drug [place] 00 form: ERFILM, Bedtime, Start date: 12/20/16 [...] MG Oral severe Tablet pain, # 60 [[place] tab, 0 10/325] Refill(s) Acetaminoph Yes 1-2 nicho, M emoria en 325 MG / 3-22 PO, Q4H, l Hydrocodone 19:17: PRN as Herm vivian Bitartrate 00 needed for 10 MG Oral severe Tablet pain, # 60 [[place] tab, 0 10/325] Refill(s) Acetaminoph Yes 1-2 nicho, M emoria en 325 MG / 3-22 PO, Q4H, l Hydrocodone 19:17: PRN as [place] vivian Bitartrate 00 needed for 10 MG Oral severe Tablet pain, # 60 [[place] tab, 0 10/325] Refill(s) Acetaminoph Yes 1-2 nicho, M emoria en 325 MG / 3-22 PO, Q4H, l Hydrocodone 19:17: PRN as [place] vivian Bitartrate 00 needed for 10 MG Oral severe Tablet pain, # 60 [[place] tab, 0 10/325] Refill(s) Acetaminoph Yes 1-2 nicho, M emoria en 325 MG / 3-22 PO, Q4H, l Hydrocodone 19:17: PRN as [place] vivian Bitartrate 00 needed for 10 MG Oral severe Tablet pain, # 60 [[place] tab, 0 10/325] Refill(s) Acetaminoph 2017- Yes 1-2 nicho, M emoria en 325 MG / 3-22 PO, Q4H, l Hydrocodone 19:17: PRN as [place] vivian Bitartrate 00 needed for 10 MG Oral severe Tablet pain, # 60 [[place] tab, 0 10/325] Refill(s) Acetaminoph Yes 1-2 nicho, M emoria en 325 MG / 3-22 PO, Q4H, l Hydrocodone 19:17: PRN as [place] vivian Bitartrate 00 needed for 10 MG Oral severe Tablet pain, # 60 [[place] tab, 0 10/325] Refill(s) Acetaminoph Yes 1-2 nicho, M emoria en 325 MG / 3-22 PO, Q4H, l Hydrocodone 19:17: PRN as [place] vivian Bitartrate 00 needed for 10 MG Oral severe Tablet pain, # 60 [[place] tab, 0 10/325] Refill(s) ropivacaine No Notes: Raad kenna 3-22 Final l 18:25: concentrat [place] 00 ion: Ropivacain e 0.2% 400 ml ropivacaine No Notes: Raad kenna 3-22 Final l 18:25: concentrat [place] 00 ion: Ropivacain e 0.2% 400 ml ropivacaine No Notes: Raad kenna 3-22 Final l 18:25: concentrat [place] 00 ion: Ropivacain e 0.2% 400 ml [...] Memoria 3-22 (Same as: l 14:00: Habitrol) [place] Nicotine No Notes: Memoria 3-22 (Same as: l 14:00: Habitrol) [place] 00 Nicotine No Notes: Memoria 3-22 (Same as: l 14:00: Habitrol) [place] 00 Nicotine No Notes: Memoria 3-22 (Same as: l 14:00: Habitrol) [place] 00 Nicotine No Notes: Memoria 3-22 (Same as: l 14:00: Habitrol) [place] 00 Nicotine No Notes: Memoria 3-22 (Same as: l 14:00: Habitrol) [place] 00 Nicotine No Notes: Memoria 3-22 (Same as: l 14:00: Habitrol) [place] 00 Nicotine No Notes: Memoria 3-22 (Same as: l 14:00: Habitrol) Tramadol No Notes: Not Mem oria 3-22 to exceed l 12:00: 400mg/day. [place] 00 (Same As: Ultram) gabapentin No Notes: Memor ia 3-22 (Same as: l 12:00: Neurontin) Tramadol No Notes: Not Mem oria 3-22 to exceed l 12:00: 400mg/day. [place] 00 (Same As: Ultram) gabapentin No Notes: Memor ia 3-22 (Same as: l 12:00: Neurontin) Tramadol No Notes: Not Mem oria 3-22 to exceed l 12:00: 400mg/day. [place] 00 (Same As: Ultram) gabapentin No Notes: Memor ia 3-22 (Same as: l 12:00: Neurontin) [place] 00 Tramadol No Notes: Not Mem oria 3-22 to exceed l 12:00: 400mg/day. [place] 00 (Same As: Ultram) gabapentin No Notes: Memor ia 3-22 (Same as: l 12:00: Neurontin) [place] 00 Tramadol No Notes: Not Mem oria 3-22 to exceed l 12:00: 400mg/day. [place] 00 (Same As: Ultram) gabapentin No Notes: Memor ia 3-22 (Same as: l 12:00: Neurontin) [place] 00 Tramadol 2017-0 No Notes: Not Mem oria 3-22 to exceed l 12:00: 400mg/day. [place] 00 (Same As: Ultram) gabapentin No Notes: Memor ia 3-22 (Same as: l 12:00: Neurontin) [place] 00 Tramadol No Notes: Not Mem oria 3-22 to exceed l 12:00: 400mg/day. [place] 00 (Same As: Ultram) gabapentin No Notes: Memor ia 3-22 (Same as: l 12:00: Neurontin) [place] 00 Tramadol No Notes: Not Mem oria 3-22 to exceed l 12:00: 400mg/day. [place] 00 (Same As: Ultram) gabapentin No Notes: [...] Memoria 3-22 (Same as: l 09:00: Lovenox) [place] 00 Lovenox No Notes: Memoria 3-22 (Same as: l 09:00: Lovenox) [place] Lovenox No Notes: Memoria 3-22 (Same as: l 09:00: Lovenox) Trazodone No Notes: Memori a 3-22 (Same As: l 06:45: Desyrel) Trazodone No Notes: Memori a 3-22 (Same As: l 06:45: Desyrel) Trazodone No Notes: Memori a 3-22 (Same As: l 06:45: Desyrel) [place] Trazodone No Notes: Memori a 3-22 (Same As: l 06:45: Desyrel) [place] Trazodone No Notes: Memori a 3-22 (Same As: l 06:45: Desyrel) [place] Trazodone No Notes: Memori a 3-22 (Same As: l 06:45: Desyrel) [place] Trazodone No Notes: Memori a 3-22 (Same As: l 06:45: Desyrel) [place] Trazodone No Notes: Memori a 3-22 (Same As: l 06:45: Desyrel) [place] Cefazolin No Notes: Memori a 3-21 (Same [...] a 3-21 (Same As: l 23:00: Ancef, [place] 00 Kefzol) Cefazolin FOR IV SET ONLY MEDICATION WASTE Product Size: 1000 mg Product Wasted: _0__ mg Cefazolin No Notes: Memori a 3-21 (Same As: l 23:00: Ancef, [place] 00 Kefzol) Cefazolin FOR IV SET ONLY MEDICATION WASTE Product Size: 1000 mg Product Wasted: _0__ mg Cefazolin No Notes: Memori a 3-21 (Same As: l 23:00: Ancef, [place] 00 Kefzol) Cefazolin FOR IV SET ONLY MEDICATION WASTE Product Size: 1000 mg Product Wasted: _0__ mg Cefazolin No Notes: Memori a 3-21 (Same As: l 23:00: Ancef, [place] 00 Kefzol) Cefazolin FOR IV SET ONLY MEDICATION WASTE Product Size: 1000 mg Product Wasted: _0__ mg Cefazolin No Notes: Memori a 3-21 (Same As: l 23:00: Ancef, [place] 00 Kefzol) Cefazolin FOR IV SET ONLY MEDICATION WASTE Product Size: 1000 mg Product Wasted: _0__ mg Cefazolin No Notes: Memori a 3-21 (Same As: l 23:00: Ancef, [place] 00 Kefzol) Cefazolin FOR IV SET ONLY MEDICATION WASTE Product Size: 1000 mg Product Wasted: _0__ mg Docusate No Notes: Memoria Sodium 100 3-21 (Same as: l MG Oral 22:00: Colace) [place] Capsule No Notes: Memoria Sodium 100 3-21 (Same as: l MG Oral 22:00: Colace) [place] Capsule No Notes: Memoria Sodium 100 3-21 (Same as: l MG Oral 22:00: Colace) [place] Capsule No Notes: Memoria Sodium 100 3-21 (Same as: l MG Oral 22:00: Colace) [place] Capsule te No Notes: Memoria Sodium 100 3-21 (Same as: l MG Oral 22:00: Colace) [place] Capsule te No Notes: Memoria Sodium 100 3-21 (Same as: l MG Oral 22:00: Colace) [place] Capsule te No Notes: Memoria Sodium 100 3-21 (Same as: l MG Oral 22:00: Colace) [place] Capsule te No Notes: Memoria Sodium 100 3-21 (Same [...] date: 12/19/16 14:22:00 CDT, 1.73 ml INV 0 No IVP, 0 Memoria Sugammadex/ 3-21 ml/hr, l Placebo inj 19:22: ONCE, Naye nn syringe Start date: 12/19/16 14:22:00 CDT, 1.73 ml ropivacaine No Notes: Raad kenna 3-21 Same as: l 18:55: Naropin [place] ropivacaine 2016-0 No Notes: Raad kenna 3-21 Same as: l 18:55: Naropin [place] 00 ropivacaine 2017-0 No Notes: Raad kenna 3-21 Same as: l 18:55: Naropin [place] 00 ropivacaine 2017-0 No Notes: Raad kenna 3-21 Same as: l 18:55: Naropin [place] 00 ropivacaine 2017-0 No Notes: Raad kenna 3-21 Same as: l 18:55: Naropin [place] 00 ropivacaine 2017-0 No Notes: Raad kenna 3-21 Same as: l 18:55: Naropin [place] 00 ropivacaine 2017-0 No Notes: Raad kenna 3-21 Same as: l 18:55: Naropin [place] 00 ropivacaine 2017-0 No Notes: Raad kenna 3-21 Same as: l 18:55: Naropin [place] 00 ropivacaine 2017-0 No Route: Raad kenna 3-21 NERVE l 18:41: BLOCK, [place] 00 Continuous Rate: 6, ml/hr, Dosing Site: Sciatic popliteal Side: Left, 1 Hour limit: 6 mL, 200, mL, Start date: 12/19/16 13:41:00 CDT, Duration: 30, day, Total volume: 200, mL, Weight 86.364, kg, Stop date: 01/18/17 13:40:00 CDT ropivacaine 2017-0 No Route: Raad kenna 3-21 NERVE l 18:41: BLOCK, [place] 00 Continuous Rate: 6, ml/hr, Dosing Site: [...] ia 3-21 (Same as: l 18:00: Lovenox) [place] Enoxaparin No Notes: Memor ia 3-21 (Same as: l 18:00: Lovenox) [place] Enoxaparin No Notes: Memor ia 3-21 (Same as: l 18:00: Lovenox) [place] Enoxaparin No Notes: Memor ia 3-21 (Same as: l 18:00: Lovenox) [place] Enoxaparin No Notes: Memor ia 3-21 (Same as: l 18:00: Lovenox) [place] Enoxaparin No Notes: Memor ia 3-21 (Same as: l 18:00: Lovenox) [place] Enoxaparin No Notes: Memor ia 3-21 (Same as: l 18:00: Lovenox) [place] Enoxaparin No Notes: Memor ia 3-21 (Same as: l 18:00: Lovenox) [place] 00 Ondansetron No Notes: Raad kenna 3-21 (Same as: l 17:52: Zofran) [place] 00 MEDICATION WASTE Product Size: 4 mg Product Wasted: _0__ mg Morphine No Notes: Memoria 3-21 (Same l 17:52: as:MORPhin [place] 00 e Sulfate) Acetaminoph No Notes: Raad kenna en 325 MG / 3-21 (Same as: l Hydrocodone 17:52: [place] Naye nn Bitartrate 00 325/10) 10 MG Oral Tablet Acetaminoph No Notes: Raad kenna en 325 MG / 3-21 (Same as: l Hydrocodone 17:52: [place] Naye nn Bitartrate 00 325/5) 5 MG Oral Tablet Ondansetron No Notes: Raad kenna 3-21 (Same as: l 17:52: Zofran) [place] 00 MEDICATION WASTE Product Size: 4 mg Product Wasted: _0__ mg Morphine No Notes: Memoria 3-21 (Same l 17:52: as:MORPhin [place] 00 e Sulfate) Acetaminoph No Notes: Raad kenna en 325 MG / 3-21 (Same as: l Hydrocodone 17:52: [place] Naye nn Bitartrate 00 325/10) 10 MG Oral Tablet Acetaminoph No Notes: Raad kenna en 325 MG / 3-21 (Same as: l Hydrocodone 17:52: [place] Naye nn Bitartrate 00 325/5) 5 MG Oral Tablet Ondansetron No Notes: Raad kenna 3-21 (Same as: l 17:52: Zofran) [place] 00 MEDICATION WASTE Product Size: 4 mg Product Wasted: _0__ mg Morphine No Notes: Memoria 3-21 (Same l 17:52: as:MORPhin [place] 00 e Sulfate) Acetaminoph No Notes: Raad kenna en 325 MG / 3-21 (Same as: l Hydrocodone 17:52: [place] Naye nn Bitartrate 00 325/10) 10 MG Oral Tablet Acetaminoph No Notes: Raad kenna en 325 MG / 3-21 (Same as: l Hydrocodone 17:52: [place] Naye nn Bitartrate 00 325/5) 5 MG Oral Tablet Ondansetron No Notes: Raad kenna 3-21 (Same as: l 17:52: Zofran) [place] 00 MEDICATION WASTE Product Size: 4 mg Product Wasted: _0__ mg Morphine No Notes: Memoria 3-21 (Same l 17:52: as:MORPhin [place] 00 e Sulfate) Acetaminoph No Notes: Raad kenna en 325 MG / 3-21 (Same as: l Hydrocodone 17:52: [place] Naye nn Bitartrate 00 325/10) 10 MG Oral Tablet Acetaminoph No Notes: Raad kenna en 325 MG / 3-21 (Same as: l Hydrocodone 17:52: [place] Naye nn Bitartrate 00 325/5) 5 MG Oral Tablet Ondansetron No Notes: Raad kenna 3-21 (Same as: l 17:52: Zofran) [place] 00 MEDICATION WASTE Product Size: 4 mg Product Wasted: _0__ mg Morphine No Notes: Memoria 3-21 (Same l 17:52: as:MORPhin [place] 00 e Sulfate) Acetaminoph No Notes: Raad kenna en 325 MG / 3-21 (Same as: l Hydrocodone 17:52: [place] Naye nn Bitartrate 00 325/10) 10 MG Oral Tablet Acetaminoph No Notes: Raad kenna en 325 MG / 3-21 (Same as: l Hydrocodone 17:52: [place] Naye nn Bitartrate 00 325/5) 5 MG Oral Tablet Ondansetron No Notes: Raad kenna 3-21 (Same as: l 17:52: Zofran) [place] 00 MEDICATION WASTE Product Size: 4 mg Product Wasted: _0__ mg Morphine No Notes: Memoria 3-21 (Same l 17:52: as:MORPhin Jaden 00 e Sulfate) Acetaminoph No Notes: Raad kenna en 325 MG / 3-21 (Same as: l Hydrocodone 17:52: [place] nn Bitartrate 00 325/10) 10 MG Oral Tablet Acetaminoph No Notes: Raad kenna en 325 MG / 3-21 (Same as: l Hydrocodone 17:52: [place] nn Bitartrate 00 325/5) 5 MG Oral Tablet Ondansetron No Notes: Raad kenna 3-21 (Same as: l 17:52: Zofran) [place] 00 MEDICATION WASTE Product Size: 4 mg Product Wasted: _0__ mg Morphine No Notes: Memoria 3-21 (Same l 17:52: as:MORPhin Jaden 00 e Sulfate) Acetaminoph No Notes: Raad kenna en 325 MG / 3-21 (Same as: l Hydrocodone 17:52: [place] nn Bitartrate 00 325/10) 10 MG Oral Tablet Acetaminoph No Notes: Raad kenna en 325 MG / 3-21 (Same as: l Hydrocodone 17:52: [place] nn Bitartrate 00 325/5) 5 MG Oral Tablet Ondansetron No Notes: Raad kenna 3-21 (Same as: l 17:52: Zofran) [place] 00 MEDICATION WASTE Product Size: 4 mg Product Wasted: _0__ mg Morphine No Notes: Memoria 3-21 (Same l 17:52: as:MORPhin [place] 00 e Sulfate) Acetaminoph No Notes: Raad kenna en 325 MG / 3-21 (Same as: l Hydrocodone 17:52: [place] Naye nn Bitartrate 00 325/10) 10 MG Oral Tablet Acetaminoph No Notes: Raad kenna en 325 MG / 3-21 (Same as: l Hydrocodone 17:52: [place] Naye nn Bitartrate 00 325/5) 5 MG [...] date: 12/19/16 12:00:00 CDT, 1.73 ml Naloxone 2016-0 No 0.4 mg, Memori a 12-19 Route: l 14:36: IVP, [place] 00 Q2MIN, Dosing Weight 86.364, kg, PRN Narcotic Reversal, Start date: 12/19/16 9:36:00 CDT, Duration: 8 doses or times, Stop date: Limited # of times Hydromorpho 2016-0 No 0.5 mg, Mem oria ne 12-19 Route: l 14:36: IVP, [place] 00 Q5Min, Dosing Weight 86.364, kg, PRN Pain Score 7-10, Start date: 12/19/16 9:36:00 CDT, Duration: 4 doses or times, Stop date: Limited # of times Flumazenil 2016-0 No 0.2 mg, Raad kenna 12-19 Route: l 14:36: IVP, PRN, [place] 00 Dosing Weight 86.364, kg, PRN Benzodiaze pine Reversal, Initial dose, Start date: 12/19/16 9:36:00 CDT, Duration: 30 day, Stop date: 01/18/17 9:35:00 CDT Ondansetron 2017-0 No 4 mg, Memor ia 3 Route: l 14:36: IVP, ONCE, [place] 00 Dosing Weight 86.364, kg, PRN Nausea & Vomiting, Start date: 12/19/16 9:36:00 CDT Hydralazine 2016-0 No 10 mg, Raad kenna 3 Route: l 14:36: IVP, Jaden 00 Q20Min, [...] kenna 12-19 Route: l 14:36: IVP, PRN, Jaden 00 [...] oria ne 3-21 Route: l 14:36: IVP, [place] 00 Q5Min, Dosing Weight 86.364, kg, PRN [...] Hydralazine 2017-0 No 10 mg, Raad kenna 3- Route: l 14:36: IVP, [place] 00 Q20Min, Dosing Weight 86.364, kg, PRN Elevated BP, Start date: 12/19/16 9:36:00 CDT, Duration: 2 doses or times, Stop date: Limited # of times Naloxone 2017-0 No 0.4 mg, Memori a 3- Route: l 14:36: IVP, [place] 00 Q2MIN, Dosing Weight 86.364, kg, PRN Narcotic Reversal, Start date: 12/19/16 9:36:00 CDT, Duration: 8 doses or times, Stop date: Limited # of times Hydromorpho 2017-0 No 0.5 mg, Mem oria ne 3-21 Route: l 14:36: IVP, [place] 00 Q5Min, Dosing Weight 86.364, kg, PRN [...] ia 3- Route: l 14:36: IVP, ONCE, [place] 00 Dosing Weight 86.364, kg, PRN Nausea & Vomiting, Start date: 12/19/16 9:36:00 CDT Hydralazine 2017-0 No 10 mg, Raad kenna 12-19 Route: l 14:36: IVP, [place] 00 Q20Min, Dosing Weight 86.364, kg, PRN [...] oria ne 12-19 Route: l 14:36: IVP, [place] 00 Q5Min, Dosing Weight 86.364, kg, PRN Pain Score 7-10, Start date: 12/19/16 9:36:00 CDT, Duration: 4 doses or times, Stop date: Limited # of times Flumazenil 2017-0 No 0.2 mg, Raad kenna 3- Route: l 14:36: IVP, PRN, [place] 00 Dosing Weight 86.364, kg, PRN Benzodiaze pine Reversal, Initial dose, Start date: 12/19/16 9:36:00 CDT, Duration: 30 day, Stop date: 01/18/17 9:35:00 CDT Ondansetron 2017-0 No 4 mg, Memor ia 3- Route: l 14:36: IVP, ONCE, [place] 00 Dosing Weight 86.364, kg, PRN Nausea & Vomiting, Start date: 12/19/16 9:36:00 CDT Hydralazine 2017-0 No 10 mg, Raad kenna 12-19 Route: l 14:36: IVP, [place] 00 Q20Min, Dosing Weight 86.364, kg, PRN Elevated BP, Start date: 12/19/16 9:36:00 CDT, Duration: 2 doses or times, Stop date: Limited # of times Naloxone 2017-0 No 0.4 mg, Memori a 12-19 Route: l 14:36: IVP, [place] 00 Q2MIN, Dosing Weight 86.364, kg, PRN [...] Stop date: Limited # of times Flumazenil 2016-0 No 0.2 mg, Raad kenna 12-19 Route: [...] kenna 12-19 Route: l 14:36: IVP, PRN, [place] 00 Dosing Weight 86.364, kg, PRN Benzodiaze pine Reversal, Initial dose, Start date: 12/19/16 9:36:00 CDT, Duration: 30 day, Stop date: 01/18/17 9:35:00 CDT Ondansetron 2017-0 No 4 mg, Memor ia 12-19 Route: l 14:36: IVP, ONCE, [place] 00 Dosing Weight 86.364, kg, PRN Nausea & Vomiting, Start date: 12/19/16 9:36:00 CDT Hydralazine 2017-0 No 10 mg, Raad kenna 12-19 Route: l 14:36: IVP, [place] 00 Q20Min, Dosing Weight 86.364, kg, PRN [...] oria ne 3- Route: l 14:36: IVP, [place] 00 Q5Min, Dosing Weight 86.364, kg, PRN Pain Score 7-10, Start date: 12/19/16 9:36:00 CDT, Duration: 4 doses or times, Stop date: Limited # of times Flumazenil 2017-0 No 0.2 mg, Raad kenna 12-19 Route: l 14:36: IVP, PRN, [place] 00 Dosing Weight 86.364, kg, PRN Benzodiaze [...] Stop date: Limited # of times ceFAZolin 2016- No Notes: Memori a 3-21 Same as: l 06:00: Ancef [place] ceFAZolin 2017-0 No Notes: Memori a 3-21 Same as: l 06:00: Ancef [place] 00 ceFAZolin 2016-0 No Notes: Memori a 3-21 Same as: l 06:00: Ancef Jaden ceFAZolin 2017-0 No Notes: Memori a 3-21 Same as: l 06:00: Ancef [place] ceFAZolin 2017-0 No Notes: Memori a 3-21 Same as: l 06:00: Ancef [place] ceFAZolin 2017-0 No Notes: Memori a 3-21 Same as: l 06:00: Ancef [place] ceFAZolin 2017-0 No Notes: Memori a 3-21 Same as: l 06:00: Ancef [place] ceFAZolin 2017-0 No Notes: Memori a 3-21 Same as: l 06:00: Ancef [place]aden Acetaminoph 2017-0 Yes 1 - 2 tab, Memoria en [...] 10 MG Oral hen. (Same Tablet as: [place] [[place] 325/10) ] Acetaminoph No Notes: Do M emoria en 325 MG / 2-19 not exceed l Hydrocodone 02:44: 4gm/day of [place] Bitartrate 00 acetaminop 10 MG Oral hen. (Same Tablet as: [place] [[place] 325/10) ] Acetaminoph No Notes: Do M emoria en 325 MG / 2-19 not exceed l Hydrocodone 02:44: 4gm/day of [place] Bitartrate 00 acetaminop 10 MG Oral hen. (Same Tablet as: [place] [[place] 325/10) ] Acetaminoph No Notes: Do M emoria en 325 MG / 2-19 not exceed l Hydrocodone 02:44: 4gm/day of [place] Bitartrate 00 acetaminop 10 MG Oral hen. (Same Tablet as: [place] [[place] 325/10) ] Acetaminoph No Notes: Do M emoria en 325 MG / 2-19 not exceed l Hydrocodone 02:44: 4gm/day of [place] Bitartrate 00 acetaminop 10 MG Oral hen. (Same Tablet as: [place] [[place] 325/10) ] Acetaminoph No Notes: Do M emoria en 325 MG / 2-19 not exceed l Hydrocodone 02:44: 4gm/day of [place] Bitartrate 00 acetaminop 10 MG Oral hen. (Same Tablet as: [place] [[place] 325/10) ] Acetaminoph No Notes: Do M emoria en 325 MG / 2-19 not exceed l Hydrocodone 02:44: 4gm/day of [place] Bitartrate 00 acetaminop 10 MG Oral hen. (Same Tablet as: [place] [[place] 325/10) 10325] Acetaminoph No Notes: Do M emoria en 325 MG / 2-19 not exceed l Hydrocodone 02:44: 4gm/day of [place] Bitartrate 00 acetaminop 10 MG Oral hen. (Same Tablet as: [place] [[place] 325/10) 10325] Ibuprofen No Notes: Memori a 2-19 (Same as: l 00:58: Motrin) [place] "Do Not Crush" Take with food. Tylenol No Notes: Do Memor ia 2-19 not exceed l 00:58: 4 gm/day. [place] 00 (Same as: Tylenol) Ibuprofen No Notes: Memori a 2-19 (Same as: l 00:58: Motrin) Jaden "Do Not Crush" Take with food. Tylenol No Notes: Do Memor ia 2-19 not exceed l 00:58: 4 gm/day. [place] 00 (Same as: Tylenol) Ibuprofen No Notes: Memori a 2-19 (Same as: l 00:58: Motrin) Jaden "Do Not Crush" Take with food. Tylenol No Notes: Do Memor ia 2-19 not exceed l 00:58: 4 gm/day. [place] (Same as: Tylenol) Ibuprofen No Notes: Memori a 2-19 (Same as: l 00:58: Motrin) Jaden "Do Not Crush" Take with food. Tylenol No Notes: Do Memor ia 2-19 not exceed l 00:58: 4 gm/day. Jaden (Same as: Tylenol) Ibuprofen No Notes: Memori a 2-19 (Same as: l 00:58: Motrin) [place] "Do Not Crush" Take with food. Tylenol No Notes: Do Memor ia 2-19 not exceed l 00:58: 4 gm/day. [place] (Same as: Tylenol) Ibuprofen No Notes: Memori a 2-19 (Same as: l 00:58: Motrin) [place] 00 "Do Not Crush" Take with food. Tylenol No Notes: Do Memor ia 2-19 not exceed l 00:58: 4 gm/day. (Same as: Tylenol) Ibuprofen No Notes: Memori a 2-19 (Same as: l 00:58: Motrin) [place] 00 "Do Not Crush" Take with food. Tylenol 0 No Notes: Do Memor ia 2-19 not exceed l 00:58: 4 gm/day. J[place] 00 (Same as: Tylenol) Ibuprofen No Notes: Memori a 2-19 (Same as: l 00:58: Motrin) [place] 00 "Do Not Crush" Take with food. Tylenol 0 No Notes: Do Memor ia 2-19 not [...] 00:00: mood mouth 00 disorder daily. traMADol 2017-0 Yes Hx of 50mg Take 1 Kahn (ULTRAM) 50 2-19 fracture of tablet by Health mg tablet 00:00: leg mouth 00 every 6 hours as needed for Pain. 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 traMADol 2017-0 Yes Hx of 50mg Take 1 Kahn [...] Notes: [facility]oria 2-12 (Same l 15:04: as:MORPhin [place] 00 e Sulfate) Morphine No Notes: Memoria 2-12 (Same l 15:04: as:MORPhin Jaden 00 e Sulfate) Morphine No Notes: Memoria 2-12 (Same l 15:04: as:MORPhin [place] 00 e Sulfate) Morphine No Notes: [facility]oria 2-12 (Same l 15:04: as:MORPhin [place] 00 e Sulfate) Morphine No Notes: Memoria 2-12 (Same l 15:04: as:MORPhin [place] 00 e Sulfate) Morphine No Notes: Memoria 2-12 (Same l 15:04: as:MORPhin Jaden 00 e Sulfate) Morphine No Notes: Memoria 2-12 (Same l 15:04: as:MORPhin [place] 00 e Sulfate) Morphine No Notes: Memoria 2-12 (Same l 15:04: as:MORPhin Jaden 00 e Sulfate) Acetaminoph No 1 tab, Raad kenna en 325 MG / 2-12 Route: PO, l Hydrocodone 14:23: Drug Form: [place] Bitartrate 00 TAB, 5 MG Oral Dosing Tablet Weight 86.364, kg, ONCE, STAT, Start date: 11/12/16 8:23:00 MARINE ERECTOR, Stop date: 11/12/16 8:23:00 MARINE ERECTOR Acetaminoph No 1 tab, Raad kenna en 325 MG / 2-12 Route: PO, l Hydrocodone 14:23: Drug Form: [place] Bitartrate 00 TAB, 5 MG Oral Dosing Tablet Weight 86.364, kg, ONCE, STAT, Start date: 11/12/16 8:23:00 MARINE ERECTOR, Stop date: 11/12/16 8:23:00 MARINE ERECTOR Acetaminoph No 1 tab, Raad kenna en 325 MG / 2-12 Route: PO, l Hydrocodone 14:23: Drug Form: [place] Bitartrate 00 TAB, 5 MG Oral Dosing Tablet Weight 86.364, kg, ONCE, STAT, Start date: 11/12/16 8:23:00 MARINE ERECTOR, Stop date: 11/12/16 8:23:00 MARINE ERECTOR Acetaminoph 2017-0 No 1 tab, Raad kenna en 325 MG / 2-12 Route: PO, l Hydrocodone 14:23: Drug Form: [place] Bitartrate 00 TAB, 5 MG Oral Dosing Tablet Weight 86.364, kg, ONCE, STAT, Start date: 11/12/16 8:23:00 MARINE ERECTOR, Stop date: 11/12/16 8:23:00 MARINE ERECTOR Acetaminoph 2017-0 No 1 tab, Raad kenna en 325 MG / 2-12 Route: PO, l Hydrocodone 14:23: Drug Form: [place] Bitartrate 00 TAB, 5 MG Oral Dosing Tablet Weight 86.364, kg, ONCE, STAT, Start date: 11/12/16 8:23:00 MARINE ERECTOR, Stop date: 11/12/16 8:23:00 MARINE ERECTOR Acetaminoph 2017-0 No 1 tab, Raad kenna en 325 MG / 2-12 Route: PO, l Hydrocodone 14:23: Drug Form: [place] Bitartrate 00 TAB, 5 MG Oral Dosing Tablet Weight 86.364, kg, ONCE, STAT, Start date: 11/12/16 8:23:00 MARINE ERECTOR, Stop date: 11/12/16 8:23:00 MARINE ERECTOR Acetaminoph 2017-0 No 1 tab, Raad kenna en 325 MG / 2-12 Route: PO, l Hydrocodone 14:23: Drug Form: [place] Bitartrate 00 TAB, 5 MG Oral Dosing Tablet Weight 86.364, kg, ONCE, STAT, Start date: 11/12/16 8:23:00 MARINE ERECTOR, Stop date: 11/12/16 8:23:00 MARINE ERECTOR Acetaminoph 2017-0 No 1 tab, Raad kenna en 325 MG / 2-12 Route: PO, l Hydrocodone 14:23: Drug Form: [place] Bitartrate 00 TAB, 5 MG Oral Dosing Tablet Weight 86.364, kg, ONCE, STAT, Start date: 11/12/16 8:23:00 MARINE ERECTOR, Stop date: 11/12/16 8:23:00 MARINE ERECTOR enoxaparin 2017- Yes 30 mg = Raad kenna 30 mg/0.3 2-11 0.3 mL, l mL 16:52: SUB-Q, [place] subcutaneou 00 [id number], s solution X 21 day, # 13 mL, 0 Refill(s), Pharmacy: [place] [address] enoxaparin Yes 30 mg = Raad kenna 30 mg/0.3 2-11 0.3 mL, l mL 16:52: SUB-Q, [place] subcutaneou 00 [id number], s solution X 21 day, # 13 mL, 0 Refill(s), Pharmacy: [facility] enoxaparin Yes 30 mg = Raad kenna 30 mg/0.3 2-11 0.3 mL, l mL 16:52: SUB-Q, [place] subcutaneou 00 [id number], s solution X 21 day, # 13 mL, 0 Refill(s), Pharmacy: [facility] enoxaparin Yes 30 mg = Raad kenna 30 mg/0.3 2-11 0.3 mL, l mL 16:52: SUB-Q, [place] subcutaneou 00 [id number], s solution X 21 day, # 13 mL, 0 Refill(s), Pharmacy: [place] [address] enoxaparin Yes 30 mg = Raad kenna 30 mg/0.3 2-11 0.3 mL, l mL 16:52: SUB-Q, [place] subcutaneou 00 [id number], s solution X 21 day, # 13 mL, 0 Refill(s), Pharmacy: [facility] enoxaparin Yes 30 mg = Raad kenna 30 mg/0.3 2-11 0.3 mL, l mL 16:52: SUB-Q, [place] subcutaneou 00 [id number], s solution X 21 day, # 13 mL, 0 Refill(s), Pharmacy: [facility] enoxaparin Yes 30 mg = Raad kenna 30 mg/0.3 2-11 0.3 mL, l mL 16:52: SUB-Q, [place] subcutaneou 00 [id number], s solution X 21 day, # 13 mL, 0 Refill(s), Pharmacy: [facility] enoxaparin Yes 30 mg = Raad kenna 30 mg/0.3 2-11 0.3 mL, l mL 16:52: SUB-Q, J[place] subcutaneou 00 [id number], s solution X 21 day, # 13 mL, 0 Refill(s), Pharmacy: [facility] tramadol Yes 100 mg = 2 Mem oria hydrochlori 2-11 tab, PO, l de 50 MG 16:46: Q6H, PRN Naye nn Oral Tablet 00 Pain Score [Ultram] 4-6, X 14 day, # 112 tab, 0 Refill(s) Acetaminoph Yes 1 tab, PO, Memoria en 325 MG / 2-11 Q4H, PRN l Hydrocodone 16:46: Pain Score [place] Bitartrate 00 6-10, 0 10 MG Oral Refill(s) Tablet [[place] 10/325] FLUoxetine Yes 60 mg = 3 Me moria 20 mg oral 2-11 cap, PO, l capsule 16:46: Daily, # Kamari n 00 90 cap, 0 Refill(s), Pharmacy: [facility] senna 8.6 Yes 17.2 mg = Mem oria mg oral 2-11 2 tab, PO, l tablet 16:46: Bedtime, 0 Naye nn 00 Refill(s) gabapentin Yes 300 mg = 1 M emoria 300 MG Oral 2-11 cap, PO, l Capsule 16:46: Q8H-05, # Naye nn 00 90 cap, 0 Refill(s), Pharmacy: [facility] methocarbam Yes 1,000 mg = Memoria ol 500 mg 2-11 2 tab, PO, l oral tablet 16:46: Q8H-05, Her baker 00 PRN Spasm, X 14 day, # 84 tab, 0 Refill(s), Pharmacy: [facility] tramadol Yes 100 mg = 2 [...] 6-10, 0 10 MG Oral Refill(s) Tablet [[place] 10/325] FLUoxetine Yes 60 mg = 3 Me moria 20 mg oral 2-11 cap, PO, l capsule 16:46: Daily, # Kamari n 00 90 cap, 0 Refill(s), Pharmacy: [facility] senna 8.6 Yes 17.2 mg = Mem oria mg oral 2-11 2 tab, PO, l tablet 16:46: Bedtime, 0 Naye nn 00 Refill(s) gabapentin Yes 300 mg = 1 M emoria 300 MG Oral 2-11 cap, PO, l Capsule 16:46: Q8H-05, # Naye nn 00 90 cap, 0 Refill(s), Pharmacy: [facility] methocarbam Yes 1,000 mg = Memoria ol 500 mg 2-11 2 tab, PO, l oral tablet 16:46: Q8H-05, Her baker 00 PRN Spasm, X 14 day, # 84 tab, 0 Refill(s), Pharmacy: [facility] tramadol Yes 100 mg = 2 Mem oria hydrochlori 2-11 tab, PO, l de 50 MG 16:46: Q6H, PRN Naye nn Oral Tablet 00 Pain Score [Ultram] 4-6, X 14 day, # 112 tab, 0 Refill(s) Acetaminoph Yes 1 tab, PO, Memoria en 325 MG / 2-11 Q4H, PRN l Hydrocodone 16:46: Pain Score [place] Bitartrate 00 6-10, 0 10 MG Oral Refill(s) Tablet [[place] 10/325] FLUoxetine Yes 60 mg = 3 Me moria 20 mg oral 2-11 cap, PO, l capsule 16:46: Daily, # Kamari n 00 90 cap, 0 Refill(s), Pharmacy: [facility] [place] [address] senna 8.6 Yes 17.2 mg = Mem oria mg oral 2-11 2 tab, PO, l tablet 16:46: Bedtime, 0 Naye nn 00 Refill(s) gabapentin Yes 300 mg = 1 M emoria 300 MG Oral 2-11 cap, PO, l Capsule 16:46: Q8H-05, # Naye nn 00 90 cap, 0 Refill(s), Pharmacy: [facility] [place] [address] methocarbam Yes 1,000 mg = Memoria ol 500 mg 2-11 2 tab, PO, l oral tablet 16:46: Q8H-05, Her baker 00 PRN Spasm, X 14 day, # 84 tab, 0 Refill(s), Pharmacy: [facility] [place] [address] tramadol Yes 100 mg = 2 Mem oria hydrochlori 2-11 tab, PO, l de 50 MG 16:46: Q6H, PRN Naye nn Oral Tablet 00 Pain Score [Ultram] 4-6, X 14 day, # 112 tab, 0 Refill(s) Acetaminoph Yes 1 tab, PO, Memoria en 325 MG / 2-11 Q4H, PRN l Hydrocodone 16:46: Pain Score [place] Bitartrate 00 6-10, 0 10 MG Oral Refill(s) Tablet [[place] 10/325] FLUoxetine Yes 60 mg = 3 Me moria 20 mg oral 2-11 cap, PO, l capsule 16:46: Daily, # Kamari n 00 90 cap, 0 Refill(s), Pharmacy: [facility] [place] [address] senna 8.6 Yes 17.2 mg = Mem oria mg oral 2-11 2 tab, PO, l tablet 16:46: Bedtime, 0 Naye nn 00 Refill(s) gabapentin Yes 300 mg = 1 M emoria 300 MG Oral 2-11 cap, PO, l Capsule 16:46: Q8H-05, # Naye nn 00 90 cap, 0 Refill(s), Pharmacy: [facility] [place] [address] methocarbam 2017-0 Yes 1,000 mg = Memoria ol 500 mg 2-11 2 tab, PO, l oral tablet 16:46: Q8H-05, Her baker 00 PRN Spasm, X 14 day, # 84 tab, 0 Refill(s), Pharmacy: [facility] [place] [address] tramadol Yes 100 mg = 2 Mem [...] 6-10, 0 10 MG Oral Refill(s) Tablet [[place] 10/325] FLUoxetine Yes 60 mg = 3 Me moria 20 mg oral 2-11 cap, PO, l capsule 16:46: Daily, # Kamari n 00 90 cap, 0 Refill(s), Pharmacy: [facility] [place] [address] senna 8.6 Yes 17.2 mg = Mem oria mg oral 2-11 2 tab, PO, l tablet 16:46: Bedtime, 0 Naye nn 00 Refill(s) gabapentin Yes 300 mg = 1 M emoria 300 MG Oral 2-11 cap, PO, l Capsule 16:46: Q8H-05, # Naye nn 00 90 cap, 0 Refill(s), Pharmacy: [facility] [place] [address] methocarbam Yes 1,000 mg = Memoria ol 500 mg 2-11 2 tab, PO, l oral tablet 16:46: Q8H-05, Her baker 00 PRN Spasm, X 14 day, # 84 tab, 0 Refill(s), Pharmacy: [facility] tramadol Yes 100 mg = 2 Mem oria hydrochlori 2-11 tab, PO, l de 50 MG 16:46: Q6H, PRN Naye nn Oral Tablet 00 Pain Score [Ultram] 4-6, X 14 day, # 112 tab, 0 Refill(s) Acetaminoph Yes 1 tab, PO, Memoria en 325 MG / 2-11 Q4H, PRN l Hydrocodone 16:46: Pain Score [place] Bitartrate 00 6-10, 0 10 MG Oral Refill(s) Tablet [[place] 10/325] FLUoxetine Yes 60 mg = 3 Me moria 20 mg oral 2-11 cap, PO, l capsule 16:46: Daily, # Kamari n 00 90 cap, 0 Refill(s), Pharmacy: [facility] senna 05.06 Yes 17.2 mg = Mem oria mg oral 2-11 2 tab, PO, l tablet 16:46: Bedtime, 0 Naye nn 00 Refill(s) gabapentin Yes 300 mg = 1 M emoria 300 MG Oral 2-11 cap, PO, l Capsule 16:46: Q8H-05, # Anye nn 00 90 cap, 0 Refill(s), Pharmacy: [facility] methocarbam Yes 1,000 mg = Memoria ol 500 mg 2-11 2 tab, PO, l oral tablet 16:46: Q8H-05, Her baker 00 PRN Spasm, X 14 day, # 84 tab, 0 Refill(s), Pharmacy: [facility] [place] [address] tramadol Yes 100 mg = 2 Mem oria hydrochlori 2-11 tab, PO, l de 50 MG 16:46: Q6H, PRN Naye nn Oral Tablet 00 Pain Score [Ultram] 4-6, X 14 day, # 112 tab, 0 Refill(s) Acetaminoph Yes 1 tab, PO, Memoria en 325 MG / 2-11 Q4H, PRN l Hydrocodone 16:46: Pain Score [place] Bitartrate 00 6-10, 0 10 MG Oral Refill(s) Tablet [[place] 10/325] FLUoxetine Yes 60 mg = 3 Me moria 20 mg oral 2-11 cap, PO, l capsule 16:46: Daily, # Kamari n 00 90 cap, 0 Refill(s), Pharmacy: [facility] senna 05.06 Yes 17.2 mg = Mem oria mg oral 2-11 2 tab, PO, l tablet 16:46: Bedtime, 0 Naye nn 00 Refill(s) gabapentin Yes 300 mg = 1 M emoria 300 MG Oral 2-11 cap, PO, l Capsule 16:46: Q8H-05, # Naye nn 00 90 cap, 0 Refill(s), Pharmacy: [place] [address] methocarbam Yes 1,000 mg = Memoria ol 500 mg 2-11 2 tab, PO, l oral tablet 16:46: Q8H-05, Her baker 00 PRN Spasm, X 14 day, # 84 tab, 0 Refill(s), Pharmacy: [place] [address] tramadol Yes 100 mg = 2 Mem oria hydrochlori 2-11 tab, PO, l de 50 MG 16:46: Q6H, PRN Naye nn Oral Tablet 00 Pain Score [Ultram] 4-6, X 14 day, # 112 tab, 0 Refill(s) Acetaminoph Yes 1 tab, PO, Memoria en 325 MG / 2-11 Q4H, PRN l Hydrocodone 16:46: Pain Score [place] Bitartrate 00 6-10, 0 10 MG Oral Refill(s) Tablet [[place] 10/325] FLUoxetine Yes 60 mg = 3 Me moria 20 mg oral 2-11 cap, PO, l capsule 16:46: Daily, # Kamari n 00 90 cap, 0 Refill(s), Pharmacy: [place] [address] senna 8.6 Yes 17.2 mg = Mem oria mg oral 2-11 2 tab, PO, l tablet 16:46: Bedtime, 0 Naye nn 00 Refill(s) gabapentin Yes 300 mg = 1 M emoria 300 MG Oral 2-11 cap, PO, l Capsule 16:46: Q8H-05, # Naye nn 00 90 cap, 0 Refill(s), Pharmacy: [facility] [place] [address] methocarbam Yes 1,000 mg = Memoria ol 500 mg 2-11 2 tab, PO, l oral tablet 16:46: Q8H-05, Her baker 00 PRN Spasm, X 14 day, # 84 tab, 0 Refill(s), Pharmacy: [facility] [place] [address] tramadol No Notes: Not Mem oria hydrochlori [...] Notes: Memoria 2-11 (Same l 15:34: as:MORPhin [place] 00 e Sulfate) tramadol No Notes: Not [...] Notes: Memoria 2-11 (Same l 15:34: as:MORPhin [place] 00 e Sulfate) sennosides, No Notes: Raad kenna JAIL 2-11 (Same as: l 03:00: Senokot) [place] Trazodone No Notes: Memori a 2-11 (Same As: l 03:00: Desyrel) [place] sennosides, No Notes: Raad kenna JAIL 2-11 (Same as: l 03:00: Senokot) [place] Trazodone No Notes: Memori a 2-11 (Same As: l 03:00: Desyrel) Jaden sennosides, No Notes: Raad kenna JAIL 2-11 (Same as: l 03:00: Senokot) [place] Trazodone No Notes: Memori a 2-11 (Same As: l 03:00: Desyrel) Jaden 00 sennosides, No Notes: Raad kenna JAIL 2-11 (Same as: l 03:00: Senokot) [place] Trazodone No Notes: Memori a 2-11 (Same As: l 03:00: Desyrel) Jaden sennosides, No Notes: Raad kenna JAIL 2-11 (Same as: l 03:00: Senokot) [place] Trazodone No Notes: Memori a 2-11 (Same As: l 03:00: Desyrel) [place] 00 sennosides, No Notes: Raad kenna JAIL 2-11 (Same as: l 03:00: Senokot) [place] Trazodone No Notes: Memori a 2-11 (Same As: l 03:00: Desyrel) Jaden sennosides, No Notes: Raad kenna JAIL 2-11 (Same as: l 03:00: Senokot) [place] Trazodone No Notes: Memori a 2-11 (Same As: l 03:00: Desyrel) [place] sennosides, No Notes: Raad kenna JAIL 2-11 (Same as: l 03:00: Senokot) [place] Trazodone No Notes: Memori a 2-11 (Same As: l 03:00: Desyrel) [place] Cefazolin No Notes: Memori a 2-10 (Same As: l 22:00: Ancef, [place] 00 Kefzol) MEDICATION WASTE Product Size: 1000 mg Product Wasted: ___ mg Cefazolin 2016-0 No Notes: Memori a 2-10 (Same As: l 22:00: Ancef, [place] 00 Kefzol) MEDICATION WASTE Product Size: 1000 mg Product Wasted: ___ mg Cefazolin 2016-0 No Notes: Memori a 2-10 (Same As: l 22:00: Ancef, [place] 00 Kefzol) MEDICATION WASTE Product Size: 1000 mg Product Wasted: ___ mg Cefazolin 2017-0 No Notes: Memori a 2-10 (Same As: l 22:00: Ancef, Jaden 00 Kefzol) MEDICATION WASTE Product Size: 1000 mg Product Wasted: ___ mg Cefazolin 2017-0 No Notes: Memori a 2-10 (Same As: l 22:00: Ancef, Jaden 00 Kefzol) MEDICATION WASTE Product Size: 1000 mg Product Wasted: ___ mg Cefazolin 2017-0 No Notes: Memori a 2-10 (Same As: l 22:00: Ancef, [place] 00 Kefzol) MEDICATION WASTE Product Size: 1000 mg Product Wasted: ___ mg Cefazolin 2017-0 No Notes: Memori a 2-10 (Same As: l 22:00: Ancef, Jaden 00 Kefzol) MEDICATION WASTE Product Size: 1000 mg Product Wasted: ___ mg Cefazolin No Notes: Memori a 2-10 (Same As: l 22:00: Ancef, [place] 00 Kefzol) MEDICATION WASTE Product Size: 1000 mg Product Wasted: ___ mg Latuda No Notes: Memoria 2-10 (Same as: l 15:00: Latuda) Jaden 00 Non-Formul em Prozac No Notes: Memoria 2-10 (Same as: l 15:00: Prozac, Jaden 00 Sarafem) Lat No Notes: Memoria 2-10 (Same as: l 15:00: Latuda) Jaden 00 Non-Formul em Prozac No Notes: Memoria 2-10 (Same as: l 15:00: Prozac, Jaden 00 Sarafem) Lat No Notes: Memoria 2-10 (Same as: l 15:00: Latuda) [place] 00 Non-Formul em Prozac No Notes: Memoria 2-10 (Same as: l 15:00: Prozac, Jaden 00 Sarafem) Latuda No Notes: Memoria 2-10 (Same as: l 15:00: Latuda) [place] 00 Non-Formul em Prozac No Notes: Memoria 2-10 (Same as: l 15:00: Prozac, [place] 00 Sarafem) Latuda No Notes: Memoria 2-10 (Same as: l 15:00: Latuda) [place] 00 Non-Formul em Prozac No Notes: Memoria 2-10 (Same as: l 15:00: Prozac, [place] 00 Sarafem) Latuda No Notes: Memoria 2-10 (Same as: l 15:00: Latuda) [place] 00 Non-Formul em Prozac No Notes: Memoria 2-10 (Same as: l 15:00: Prozac, [place] 00 Sarafem) Latuda No Notes: Memoria 2-10 (Same as: l 15:00: Latuda) J[place] 00 Non-Formul em Prozac 2017- No Notes: Memoria 2-10 (Same as: l 15:00: Prozac, Jdaen 00 Sarafem) Latuda No Notes: Memoria 2-10 (Same as: l 15:00: Latuda) [place] 00 Non-Formul em Prozac No Notes: Memoria 2-10 (Same as: l 15:00: Prozac, [place] 00 Sarafem) Ondansetron No Notes: Raad kenna [...] ia 2-10 (Same as: l 14:58: Romazicon) [place] 00 Ondansetron No Notes: Raad kenna 2-10 (Same as: l 14:58: Zofran) [place] 00 MEDICATION WASTE Product Size: 4 mg Product Wasted: ___ mg Oxycodone 2017 No Notes: Memori a 2-10 (Same as: l 14:58: Roxicodone Jaden ) Hydromorpho No Notes: Raad kenna ne 2-10 Same as: l 14:58: Dilaudid [place] 00 Naloxone No Notes: Memoria 2-10 Same [...] ne 2-10 Same as: l 14:58: Dilaudid [place] 00 Naloxone No Notes: Memoria 2-10 Same as l 14:58: Narcan [place] Flumazenil No Notes: Memor ia 2-10 (Same as: l 14:58: Romazicon) [place] Ondansetron No Notes: Raad kenna 2-10 (Same as: l 14:58: Zofran) [place] 00 MEDICATION WASTE Product Size: 4 mg Product Wasted: ___ mg Oxycodone 2017 No Notes: Memori a 2-10 (Same as: l 14:58: Roxicodone [place] ) Hydromorpho No Notes: Raad kenna ne 2-10 Same as: l 14:58: Dilaudid [place] 00 Naloxone No Notes: Memoria 2-10 Same as l 14:58: Narcan [place] Flumazenil No Notes: Memor ia 2-10 (Same as: l 14:58: Romazicon) [place] Ondansetron No Notes: Raad kenna 2-10 (Same as: l 14:58: Zofran) [place] 00 MEDICATION WASTE Product Size: 4 mg Product Wasted: ___ mg Oxycodone 2017 No Notes: Memori a 2-10 (Same as: l 14:58: Roxicodone [place] 00 ) Hydromorpho No Notes: Raad kenna ne 2-10 Same as: l 14:58: Dilaudid [place] 00 Naloxone 0 No Notes: Memoria 2-10 Same as l 14:58: Narcan [place] 00 Flumazenil No Notes: Memor ia 2-10 (Same as: l 14:58: Romazicon) [place] Ondansetron 2017 No Notes: Raad kenna 2-10 (Same as: l 14:58: Zofran) [place] 00 MEDICATION WASTE Product Size: 4 mg Product Wasted: ___ mg Oxycodone 2017- No Notes: Memori a 2-10 (Same as: l 14:58: Roxicodone [place] 00 ) Hydromorpho No Notes: Raad kenna ne 2-10 Same as: l 14:58: Dilaudid [place] 00 Naloxone 2017-0 No Notes: Memoria 2-10 Same as l 14:58: Narcan [place] 00 Flumazenil 2017 No Notes: Memor ia 2-10 (Same as: l 14:58: Romazicon) [place] Ondansetron No Notes: Raad kenna 2-10 (Same as: l 14:58: Zofran) J[place] 00 MEDICATION WASTE Product Size: 4 mg Product Wasted: ___ mg Oxycodone 2017- No Notes: Memori a 2-10 (Same as: l 14:58: Roxicodone [place] 00 ) Hydromorpho No Notes: Raad kenna ne 2-10 Same as: l 14:58: Dilaudid [place] 00 Naloxone 2016-0 No Notes: Memoria 2-10 Same as l 14:58: Narcan [place] 00 Flumazenil No Notes: Memor ia 2-10 (Same as: l 14:58: Romazicon) [place] Ondansetron No Notes: Raad kenna 2-10 (Same as: l 14:58: Zofran) [place] 00 MEDICATION WASTE Product Size: 4 mg Product Wasted: ___ mg Oxycodone 2017-0 No Notes: Memori a 2-10 (Same as: l 14:58: Roxicodone [place] 00 ) Hydromorpho 0 No Notes: Raad kenna ne 2-10 Same as: l 14:58: Dilaudid [place] 00 Naloxone 2017-0 No Notes: Memoria 2-10 Same as l 14:58: Narcan [place] 00 Flumazenil 2017-0 No Notes: Memor ia 2-10 (Same as: l 14:58: Romazicon) [place] 00 Ancef 2017-0 No 2 gm, Memoria 2-10 Route: l 13:28: IVPB, [place] 00 ONCE, Dosing Weight 88.636, kg, Start date: 11/10/16 7:28:00 MARINE ERECTOR, Duration: 1 doses or times, Stop date: 11/10/16 7:28:00 MARINE ERECTOR, Surgical Prophylaxi s Only; For patients < 120 kg Ancef 2017-0 No 2 gm, Memoria 2-10 Route: l 13:28: IVPB, [place] 00 ONCE, Dosing Weight 88.636, kg, Start date: 11/10/16 7:28:00 MARINE ERECTOR, Duration: 1 doses or times, Stop date: 11/10/16 7:28:00 MARINE ERECTOR, Surgical Prophylaxi s Only; For patients < 120 kg Ancef 2017-0 No 2 gm, Memoria 2-10 Route: l 13:28: IVPB, [place] 00 ONCE, Dosing Weight 88.636, kg, Start date: 11/10/16 7:28:00 MARINE ERECTOR, Duration: 1 doses or times, Stop date: 11/10/16 7:28:00 MARINE ERECTOR, Surgical Prophylaxi s Only; For patients < 120 kg Ancef 2017-0 No 2 gm, Memoria 2-10 Route: l 13:28: IVPB, [place] 00 ONCE, Dosing Weight 88.636, kg, Start date: 11/10/16 7:28:00 MARINE ERECTOR, Duration: 1 doses or times, Stop date: 11/10/16 7:28:00 MARINE ERECTOR, Surgical Prophylaxi s Only; For patients < 120 kg Ancef 2017-0 No 2 gm, Memoria 2-10 Route: l 13:28: IVPB, [place] 00 ONCE, Dosing Weight 88.636, kg, Start date: 11/10/16 7:28:00 MARINE ERECTOR, Duration: 1 doses or times, Stop date: 11/10/16 7:28:00 MARINE ERECTOR, Surgical Prophylaxi s Only; For patients < 120 kg Ancef 2017-0 No 2 gm, Memoria 2-10 Route: l 13:28: IVPB, [place] 00 ONCE, Dosing Weight 88.636, kg, Start date: 11/10/16 7:28:00 MARINE ERECTOR, Duration: 1 doses or times, Stop date: 11/10/16 7:28:00 MARINE ERECTOR, Surgical Prophylaxi s Only; For patients < 120 kg Ancef 2017-0 No 2 gm, Memoria 2-10 Route: l 13:28: IVPB, [place] 00 ONCE, Dosing Weight 88.636, kg, Start date: 11/10/16 7:28:00 MARINE ERECTOR, Duration: 1 doses or times, Stop date: 11/10/16 7:28:00 MARINE ERECTOR, Surgical Prophylaxi s Only; For patients < 120 kg Ancef 2017-0 No 2 gm, Memoria 2-10 Route: l 13:28: IVPB, [place] 00 ONCE, Dosing Weight 88.636, kg, Start date: 11/10/16 7:28:00 MARINE ERECTOR, Duration: 1 doses or times, Stop date: 11/10/16 7:28:00 MARINE ERECTOR, Surgical Prophylaxi s Only; For patients < 120 kg ketOROLAC 2017-0 No 4 days. Raad kenna 15 mg/mL 2-10 l injectable 12:00: Jaden solution 00 ketOROLAC 2017-0 No 4 days. Raad kenna 15 mg/mL 2-10 l injectable 12:00: Jaden solution 00 ketOROLAC 2017-0 No 4 days. Raad kenna 15 mg/mL 2-10 l injectable 12:00: Jaden solution 00 ketOROLAC 2017-0 No 4 days. Raad kenna 15 mg/mL 2-10 l injectable 12:00: Jaden solution 00 ketOROLAC 2017-0 No 4 days. Raad kenna 15 mg/mL 2-10 l injectable 12:00: Jaden solution 00 ketOROLAC 2017-0 No 4 days. Raad kenna 15 mg/mL 2-10 l injectable 12:00: Jaden solution 00 ketOROLAC 2017-0 No 4 days. Raad kenna 15 mg/mL 2-10 l injectable 12:00: [place] solution 00 ketOROLAC 2017-0 No 4 days. Raad kenna 15 mg/mL 2-10 l injectable 12:00: Jaden solution 00 Lovenox 2017-0 No Notes: Memoria 2-10 (Same as: l 10:00: Lovenox) [place] 00 Lovenox 2017-0 No Notes: Memoria 2-10 (Same as: [...] 50 kg Memoria 2-10 l 09:06: Fentanyl No 50 kg Memoria 2-10 l 09:06: Fentanyl 0 No 50 kg Memoria 2-10 l 09:06: Fentanyl 0 No 50 kg Memoria 2-10 l 09:06: Fentanyl 0 No 50 kg Memoria 2-10 l 09:06: Fentanyl 0 No 50 kg Memoria 2-10 l 09:06: Fentanyl 0 No 50 kg Memoria 2-10 l 09:06: Fentanyl No 50 kg Memoria 2-10 l 09:06: Acetaminoph No Notes: Do M emoria en 325 MG / 2-10 not exceed l Hydrocodone 08:51: 4gm/day of Bitartrate 00 acetaminop 10 MG Oral hen. (Same Tablet as: [place] [[place] 325/10) ] gabapentin No Notes: Memor ia 300 MG Oral 2-10 (Same as: l Capsule 08:51: Neurontin) Robaxin No Notes: Memoria 2-10 (Same l 08:51: as:Robaxin ) ketOROLAC No 15 mg, Memori a 15 mg/mL 2-10 Route: IM, l injectable 08:51: Q6H, kg, Her baker solution 00 Priority: NOW, Start date: 11/10/16 2:51:00 MARINE ERECTOR, Duration: 4 day, Stop date: 11/14/16 0:00:00 MARINE ERECTOR Acetaminoph No Notes: Do M emoria en 325 MG / 2-10 not exceed l Hydrocodone 08:51: 4gm/day of [place] Bitartrate 00 acetaminop 10 MG Oral hen. (Same Tablet as: [place] [[place] 325/10) ] gabapentin No Notes: Memor ia 300 MG Oral 2-10 (Same as: l Capsule 08:51: Neurontin) Herm vivian Robaxin No Notes: Memoria 2-10 (Same l 08:51: as:Robaxin [place] ) ketOROLAC No 15 mg, Memori a 15 mg/mL 2-10 Route: IM, l injectable 08:51: Q6H, kg, Her baker solution 00 Priority: NOW, Start date: 11/10/16 2:51:00 MARINE ERECTOR, Duration: 4 day, Stop date: 11/14/16 0:00:00 MARINE ERECTOR Acetaminoph No Notes: Do M emoria en 325 MG / 2-10 not exceed l Hydrocodone 08:51: 4gm/day of [place] Bitartrate 00 acetaminop 10 MG Oral hen. (Same Tablet as: [place] [[place] 325/10) ] gabapentin No Notes: Memor ia 300 MG Oral 2-10 (Same as: l Capsule 08:51: Neurontin) Herm vivian 00 Robaxin No Notes: Memoria 2-10 (Same l 08:51: as:Robaxin [place] ) ketOROLAC No 15 mg, Memori a 15 mg/mL 2-10 Route: IM, l injectable 08:51: Q6H, kg, Her baker solution 00 Priority: NOW, Start date: 11/10/16 2:51:00 MARINE ERECTOR, Duration: 4 day, Stop date: 11/14/16 0:00:00 MARINE ERECTOR Acetaminoph No Notes: Do M emoria en 325 MG / 2-10 not exceed l Hydrocodone 08:51: 4gm/day of [place] Bitartrate 00 acetaminop 10 MG Oral hen. (Same Tablet as: [place] [[place] 325/10) ] gabapentin No Notes: Memor ia 300 MG Oral 2-10 (Same as: l Capsule 08:51: Neurontin) Herm vivian Robaxin No Notes: Memoria 2-10 (Same l 08:51: as:Robaxin [place] ) ketOROLAC No 15 mg, Memori a 15 mg/mL 2-10 Route: IM, l injectable 08:51: Q6H, kg, Her baker solution 00 Priority: NOW, Start date: 11/10/16 2:51:00 MARINE ERECTOR, Duration: 4 day, Stop date: 11/14/16 0:00:00 MARINE ERECTOR Acetaminoph No Notes: Do M emoria en 325 MG / 2-10 not exceed l Hydrocodone 08:51: 4gm/day of [place] Bitartrate 00 acetaminop 10 MG Oral hen. (Same Tablet as: [place] [[place] 325/10) ] gabapentin No Notes: Memor ia 300 MG Oral 2-10 (Same as: l Capsule 08:51: Neurontin) [place] Robaxin No Notes: Memoria 2-10 (Same l 08:51: as:Robaxin [place] 00 ) ketOROLAC No 15 mg, Memori a 15 mg/mL 2-10 Route: IM, l injectable 08:51: Q6H, kg, Her baker solution 00 Priority: NOW, Start date: 11/10/16 2:51:00 MARINE ERECTOR, Duration: 4 day, Stop date: 11/14/16 0:00:00 MARINE ERECTOR Acetaminoph No Notes: Do M emoria en 325 MG / 2-10 not exceed l Hydrocodone 08:51: 4gm/day of [place] Bitartrate 00 acetaminop 10 MG Oral hen. (Same Tablet as: [place] [[place] 325/10) [address]] gabapentin No Notes: Memor ia 300 MG Oral 2-10 (Same as: l Capsule 08:51: Neurontin) [place] Robaxin 2017-0 No Notes: Memoria 2-10 (Same l 08:51: as:Robaxin [place] ) ketOROLAC No 15 mg, Memori a 15 mg/mL 2-10 Route: IM, l injectable 08:51: Q6H, kg, Her baker solution 00 Priority: NOW, Start date: 11/10/16 2:51:00 MARINE ERECTOR, Duration: 4 day, Stop date: 11/14/16 0:00:00 MARINE ERECTOR Acetaminoph No Notes: Do M emoria en 325 MG / 2-10 not exceed l Hydrocodone 08:51: 4gm/day of [place] Bitartrate 00 acetaminop 10 MG Oral hen. (Same Tablet as: [place] [[place] 325/10) ] gabapentin No Notes: Memor ia 300 MG Oral 2-10 (Same as: l Capsule 08:51: Neurontin) [place] Robaxin No Notes: Memoria 2-10 (Same l 08:51: as:Robaxin [place] ) ketOROLAC 0 No 15 mg, Memori a 15 mg/mL 2-10 Route: IM, l injectable 08:51: Q6H, kg, Her baker solution 00 Priority: NOW, Start date: 11/10/16 2:51:00 MARINE ERECTOR, Duration: 4 day, Stop date: 11/14/16 0:00:00 MARINE ERECTOR Acetaminoph 0 No Notes: Do M emoria en 325 MG / 2-10 not exceed l Hydrocodone 08:51: 4gm/day of [place] Bitartrate 00 acetaminop 10 MG Oral hen. (Same Tablet as: [place] [[place] 325/10) 325] gabapentin No Notes: Memor ia 300 MG Oral 2-10 (Same as: l Capsule 08:51: Neurontin) [place] 00 Robaxin No Notes: Memoria 2-10 (Same l 08:51: as:Robaxin [place] ) ketOROLAC 0 No 15 mg, Memori a 15 mg/mL 2-10 Route: IM, l injectable 08:51: Q6H, kg, Her baker solution 00 Priority: NOW, Start date: 11/10/16 2:51:00 MARINE ERECTOR, Duration: 4 day, Stop date: 11/14/16 0:00:00 MARINE ERECTOR Lurasidone 2017-0 Yes 20 mg = 1 [...] kenna 2-10 (Same as: l 08:15: Zofran) [place] 00 MEDICATION WASTE Product Size: 4 mg Product Wasted: ___ mg Acetaminoph No Notes: Max Memoria en 2-10 acetaminop l 08:15: hen 4000 [place] 00 mg/day (4 gm/day). (Same as: Tylenol Extra Strength) Ondansetron No Notes: Raad kenna 2-10 (Same as: l 08:15: Zofran) [place] 00 MEDICATION WASTE Product Size: 4 mg Product Wasted: ___ mg Acetaminoph No Notes: Max Memoria en 2-10 acetaminop l 08:15: hen 4000 [place] 00 mg/day (4 gm/day). (Same as: Tylenol Extra Strength) Ondansetron No Notes: Raad kenna 2-10 (Same as: l 08:15: Zofran) [place] 00 MEDICATION WASTE Product Size: 4 mg Product Wasted: ___ mg Acetaminoph No Notes: Max Memoria en 2-10 acetaminop l 08:15: hen 4000 [place] 00 mg/day (4 gm/day). (Same as: Tylenol Extra Strength) Ondansetron No Notes: Raad kenna 2-10 (Same as: l 08:15: Zofran) [place] 00 MEDICATION WASTE Product Size: 4 mg Product Wasted: ___ mg Acetaminoph No Notes: Max Memoria en 2-10 acetaminop l 08:15: hen 4000 [place] 00 mg/day (4 gm/day). (Same as: Tylenol Extra Strength) Ondansetron 2017-0 No Notes: Raad kenna 2-10 (Same as: l 08:15: Zofran) [place] 00 MEDICATION WASTE Product Size: 4 mg Product Wasted: ___ mg Acetaminoph 2017-0 No Notes: Max Memoria en 2-10 acetaminop l 08:15: hen 4000 [place] 00 mg/day (4 gm/day). (Same as: Tylenol Extra Strength) Ondansetron 2017-0 No Notes: Raad kenna 2-10 (Same as: l 08:15: Zofran) [place] 00 MEDICATION WASTE Product Size: 4 mg Product Wasted: ___ mg Acetaminoph 2017-0 No Notes: Max Memoria en 2-10 acetaminop l 08:15: hen 4000 [place] 00 mg/day (4 gm/day). (Same as: Tylenol Extra Strength) Ondansetron 2017-0 No Notes: Raad kenna 2-10 (Same as: l 08:15: Zofran) [place] 00 MEDICATION WASTE Product Size: 4 mg Product Wasted: ___ mg Acetaminoph 2017-0 No Notes: Max Memoria en 2-10 acetaminop l 08:15: hen 4000 [place] 00 mg/day (4 gm/day). (Same as: Tylenol Extra Strength) Ondansetron 2016-0 No Notes: Raad kenna 2-10 (Same as: l 08:15: Zofran) [place] 00 MEDICATION WASTE Product Size: 4 mg Product Wasted: ___ mg Morphine 2017-0 No 4 mg, Memoria 2-10 Route: l 07:40: IVP, ONCE, [place] 00 kg, Priority: STAT, Start date: 11/10/16 1:40:00 MARINE ERECTOR, Stop date: 11/10/16 1:40:00 MARINE ERECTOR Morphine 2017-0 No 4 mg, Memoria 2-10 Route: l 07:40: IVP, ONCE, [place] 00 kg, Priority: STAT, Start date: 11/10/16 1:40:00 MARINE ERECTOR, Stop date: 11/10/16 1:40:00 MARINE ERECTOR Morphine 2017-0 No 4 mg, Memoria 2-10 Route: l 07:40: IVP, ONCE, [place] 00 kg, Priority: STAT, Start date: 11/10/16 1:40:00 MARINE ERECTOR, Stop date: 11/10/16 1:40:00 MARINE ERECTOR Morphine 2017-0 No 4 mg, Memoria 2-10 Route: l 07:40: IVP, ONCE, [place] 00 kg, Priority: STAT, Start date: 11/10/16 1:40:00 MARINE ERECTOR, Stop date: 11/10/16 1:40:00 MARINE ERECTOR Morphine 2017-0 No 4 mg, Memoria 2-10 Route: l 07:40: IVP, ONCE, [place] 00 kg, Priority: STAT, Start date: 11/10/16 1:40:00 MARINE ERECTOR, Stop date: 11/10/16 1:40:00 MARINE ERECTOR Morphine 2017-0 No 4 mg, Memoria 2-10 Route: l 07:40: IVP, ONCE, [place] 00 kg, Priority: STAT, Start date: 11/10/16 1:40:00 MARINE ERECTOR, Stop date: 11/10/16 1:40:00 MARINE ERECTOR Morphine 2017-0 No 4 mg, Memoria 2-10 Route: l 07:40: IVP, ONCE, [place] 00 kg, Priority: STAT, Start date: 11/10/16 1:40:00 MARINE ERECTOR, Stop date: 11/10/16 1:40:00 MARINE ERECTOR Morphine 2017-0 No 4 mg, Memoria 2-10 Route: l 07:40: IVP, ONCE, [place] 00 kg, Priority: STAT, Start date: 11/10/16 1:40:00 MARINE ERECTOR, Stop date: 11/10/16 1:40:00 MARINE ERECTOR Dilaudid 2017-0 No 2 mg, Memoria 2-10 Route: l 05:28: IVP, ONCE, [place] 00 kg, Priority: STAT, Start date: 11/09/16 23:28:00 MARINE ERECTOR, Stop date: 11/09/16 23:28:00 MARINE ERECTOR Dilaudid 2017-0 No 2 mg, Memoria 2-10 Route: l 05:28: IVP, ONCE, [place] 00 kg, Priority: STAT, Start date: 11/09/16 23:28:00 MARINE ERECTOR, Stop date: 11/09/16 23:28:00 MARINE ERECTOR Dilaudid 2017-0 No 2 mg, Memoria 2-10 Route: l 05:28: IVP, ONCE, [place] 00 kg, Priority: STAT, Start date: 11/09/16 23:28:00 MARINE ERECTOR, Stop date: 11/09/16 23:28:00 MARINE ERECTOR Dilaudid 2017-0 No 2 mg, Memoria 2-10 Route: l 05:28: IVP, ONCE, [place] 00 kg, Priority: STAT, Start date: 11/09/16 23:28:00 MARINE ERECTOR, Stop date: 11/09/16 23:28:00 MARINE ERECTOR Dilaudid 2017-0 No 2 mg, Memoria 2-10 Route: l 05:28: IVP, ONCE, [place] 00 kg, Priority: STAT, Start date: 11/09/16 23:28:00 MARINE ERECTOR, Stop date: 11/09/16 23:28:00 MARINE ERECTOR Dilaudid 2017-0 No 2 mg, Memoria 2-10 Route: l 05:28: IVP, ONCE, [place] 00 kg, Priority: STAT, Start date: 11/09/16 23:28:00 MARINE ERECTOR, Stop date: 11/09/16 23:28:00 MARINE ERECTOR Dilaudid 2017-0 No 2 mg, Memoria 2-10 Route: l 05:28: IVP, ONCE, [place] 00 kg, Priority: STAT, Start date: 11/09/16 23:28:00 MARINE ERECTOR, Stop date: 11/09/16 23:28:00 MARINE ERECTOR Dilaudid 2017-0 No 2 mg, Memoria 2-10 Route: l 05:28: IVP, ONCE, [place] 00 kg, Priority: STAT, Start date: 11/09/16 23:28:00 MARINE ERECTOR, Stop date: 11/09/16 23:28:00 MARINE ERECTOR Sodium 2017-0 No 2,000 mL, Memori a Chloride 2-10 2,000 l 0.154 05:10: ml/hr, [place] MEQ/ML 00 Infuse Injectable Over: 1 Solution hr, Route: IV, 2,000, Drug form: INJ, ONCE, Priority: STAT, kg, Start date: 11/09/16 23:10:00 MARINE ERECTOR, Duration: 1 doses or times, Stop date: 11/09/16 23:10:00 MARINE ERECTOR Sodium 2017-0 No 2,000 mL, Memori a Chloride 2-10 2,000 l 0.154 05:10: ml/hr, Jaden MEQ/ML 00 Infuse Injectable Over: 1 Solution hr, Route: IV, 2,000, Drug form: INJ, ONCE, Priority: STAT, kg, Start date: 11/09/16 23:10:00 MARINE ERECTOR, Duration: 1 doses or times, Stop date: 11/09/16 23:10:00 MARINE ERECTOR Sodium 2017-0 No 2,000 mL, Memori a Chloride 2-10 2,000 l 0.154 05:10: ml/hr, [place] MEQ/ML 00 Infuse Injectable Over: 1 Solution hr, Route: IV, 2,000, Drug form: INJ, ONCE, Priority: STAT, kg, Start date: 11/09/16 23:10:00 MARINE ERECTOR, Duration: 1 doses or times, Stop date: 11/09/16 23:10:00 MARINE ERECTOR Sodium 2017-0 No 2,000 mL, Memori a Chloride 2-10 2,000 l 0.154 05:10: ml/hr, [place] MEQ/ML 00 Infuse Injectable Over: 1 Solution hr, Route: IV, 2,000, Drug form: INJ, ONCE, Priority: STAT, kg, Start date: 11/09/16 23:10:00 MARINE ERECTOR, Duration: 1 doses or times, Stop date: 11/09/16 23:10:00 MARINE ERECTOR Sodium 2017-0 No 2,000 mL, Memori a Chloride 2-10 2,000 l 0.154 05:10: ml/hr, [place] MEQ/ML 00 Infuse Injectable Over: 1 Solution hr, Route: IV, 2,000, Drug form: INJ, ONCE, Priority: STAT, kg, Start date: 11/09/16 23:10:00 MARINE ERECTOR, Duration: 1 doses or times, Stop date: 11/09/16 23:10:00 MARINE ERECTOR Sodium 2017-0 No 2,000 mL, Memori a Chloride 2-10 2,000 l 0.154 05:10: ml/hr, [place] MEQ/ML 00 Infuse Injectable Over: 1 Solution hr, Route: IV, 2,000, Drug form: INJ, ONCE, Priority: STAT, kg, Start date: 11/09/16 23:10:00 MARINE ERECTOR, Duration: 1 doses or times, Stop date: 11/09/16 23:10:00 MARINE ERECTOR Sodium 2017-0 No 2,000 mL, Memori a Chloride 2-10 2,000 l 0.154 05:10: ml/hr, [place] MEQ/ML 00 Infuse Injectable Over: 1 Solution hr, Route: IV, 2,000, Drug form: INJ, ONCE, Priority: STAT, kg, Start date: 11/09/16 23:10:00 MARINE ERECTOR, Duration: 1 doses or times, Stop date: 11/09/16 23:10:00 MARINE ERECTOR Sodium 2017-0 No 2,000 mL, Memori a Chloride 2-10 2,000 l 0.154 05:10: ml/hr, [place] MEQ/ML 00 Infuse Injectable Over: 1 Solution hr, Route: IV, 2,000, Drug form: INJ, ONCE, Priority: STAT, kg, Start date: 11/09/16 23:10:00 MARINE ERECTOR, Duration: 1 doses or times, Stop date: 11/09/16 23:10:00 MARINE ERECTOR Zofran 2016-0 No Notes: Memoria 2-10 (Same [...] kg, Priority: STAT, Start date: 11/09/16 22:50:00 MARINE ERECTOR, Stop date: 11/09/16 22:50:00 MARINE ERECTOR Morphine 2017-0 No 4 mg, Memoria 2-10 Route: l 04:50: IVP, ONCE, [place] 00 kg, Priority: STAT, Start date: 11/09/16 22:50:00 MARINE ERECTOR, Stop date: 11/09/16 22:50:00 MARINE ERECTOR Morphine 2017-0 No 4 mg, Memoria 2-10 Route: l 04:50: IVP, ONCE, Jaden 00 kg, Priority: STAT, Start date: 11/09/16 22:50:00 MARINE ERECTOR, Stop date: 11/09/16 22:50:00 MARINE ERECTOR Morphine 2017-0 No 4 mg, Memoria 2-10 Route: l 04:50: IVP, ONCE, [place] 00 kg, Priority: STAT, Start date: 11/09/16 22:50:00 MARINE ERECTOR, Stop date: 11/09/16 22:50:00 MARINE ERECTOR Morphine 2017-0 No 4 mg, Memoria 2-10 Route: l 04:50: IVP, ONCE, [place] 00 kg, Priority: STAT, Start date: 11/09/16 22:50:00 MARINE ERECTOR, Stop date: 11/09/16 22:50:00 MARINE ERECTOR Morphine 2017-0 No 4 mg, Memoria 2-10 Route: l 04:50: IVP, ONCE, [place] 00 kg, Priority: STAT, Start date: 11/09/16 22:50:00 MARINE ERECTOR, Stop date: 11/09/16 22:50:00 MARINE ERECTOR Morphine 2017-0 No 4 mg, Memoria 2-10 Route: l 04:50: IVP, ONCE, [place] 00 kg, Priority: STAT, Start date: 11/09/16 22:50:00 MARINE ERECTOR, Stop date: 11/09/16 22:50:00 MARINE ERECTOR Morphine 2017-0 No 4 mg, Memoria 2-10 Route: l 04:50: IVP, ONCE, [place] 00 kg, Priority: STAT, Start date: 11/09/16 22:50:00 MARINE ERECTOR, Stop date: 11/09/16 22:50:00 MARINE ERECTOR Ketamine 2017-0 No 100 mg, Memori a 2-10 Route: l 04:11: IVP, ONCE, [place] 00 kg, Priority: STAT, Start date: 11/09/16 22:11:00 MARINE ERECTOR, Stop date: 11/09/16 22:11:00 MARINE ERECTOR Ketamine 2017-0 No 100 mg, Memori a 2-10 Route: l 04:11: IVP, ONCE, [place] 00 kg, Priority: STAT, Start date: 11/09/16 22:11:00 MARINE ERECTOR, Stop date: 11/09/16 22:11:00 MARINE ERECTOR Ketamine 2017-0 No 100 mg, Memori a 2-10 Route: l 04:11: IVP, ONCE, [place] 00 kg, Priority: STAT, Start date: 11/09/16 22:11:00 MARINE ERECTOR, Stop date: 11/09/16 22:11:00 MARINE ERECTOR Ketamine 2017-0 No 100 mg, Memori a 2-10 Route: l 04:11: IVP, ONCE, [place] 00 kg, Priority: STAT, Start date: 11/09/16 22:11:00 MARINE ERECTOR, Stop date: 11/09/16 22:11:00 MARINE ERECTOR Ketamine 2017-0 No 100 mg, Memori a 2-10 Route: l 04:11: IVP, ONCE, [place] 00 kg, Priority: STAT, Start date: 11/09/16 22:11:00 MARINE ERECTOR, Stop date: 11/09/16 22:11:00 MARINE ERECTOR Ketamine 2017-0 No 100 mg, Memori a 2-10 Route: l 04:11: IVP, ONCE, [place] 00 kg, Priority: STAT, Start date: 11/09/16 22:11:00 MARINE ERECTOR, Stop date: 11/09/16 22:11:00 MARINE ERECTOR Ketamine 2017-0 No 100 mg, Memori a 2-10 Route: l 04:11: IVP, ONCE, [place] 00 kg, Priority: STAT, Start date: 11/09/16 22:11:00 MARINE ERECTOR, Stop date: 11/09/16 22:11:00 MARINE ERECTOR Ketamine 2017-0 No 100 mg, Memori a 2-10 Route: l 04:11: IVP, ONCE, [place] 00 kg, Priority: STAT, Start date: 11/09/16 22:11:00 MARINE ERECTOR, Stop date: 11/09/16 22:11:00 MARINE ERECTOR Fentanyl 2017-0 No Notes: Memoria 2-10 (Same as: l 04:09: Sublimaze) [place] 00 Preservati ve free. Fentanyl 2017-0 No [...] Memoria 2-10 (Same as: l 04:09: Sublimaze) [place] 00 Preservati ve free. Fentanyl 2017-0 No Notes: Memoria 2-10 (Same as: l 04:09: Sublimaze) [place] 00 Preservati ve free. Fentanyl 2017-0 No Notes: Memoria 2-10 (Same as: l 04:09: Sublimaze) [place] 00 Preservati ve free. Fentanyl 2017-0 No Notes: Memoria 2-10 (Same as: l 04:08: Sublimaze) [place] 00 Preservati ve free. Fentanyl 2017-0 No Notes: Memoria 2-10 (Same as: l 04:08: Sublimaze) [place] 00 Preservati ve free. Fentanyl 2017-0 No Notes: Memoria 2-10 (Same as: l 04:08: Sublimaze) [place] 00 Preservati ve free. Fentanyl No Notes: Memoria 2-10 (Same as: l 04:08: Sublimaze) [place] 00 Preservati ve free. Fentanyl No Notes: Memoria 2-10 (Same as: l 04:08: Sublimaze) [place] 00 Preservati ve free. Fentanyl No Notes: Memoria 2-10 (Same as: l 04:08: Sublimaze) [place] 00 Preservati ve free. Fentanyl No Notes: Memoria 2-10 (Same as: l 04:08: Sublimaze) [place] 00 Preservati ve free. Fentanyl No Notes: Memoria 2-10 (Same as: l 04:08: Sublimaze) [place] 00 Preservati ve free. Saline No Notes: Memoria Flush 0.9% 2-10 (Same as: l 03:30: BD [place] 00 Posiflush) [place] No Notes: [facility]oria Flush 0.9% 2-10 (Same as: l 03:30: BD [place] 00 Posiflush) Saline No Notes: [facility]oria Flush 0.9% 2-10 (Same as: l 03:30: BD [place] 00 Posiflush) Saline No Notes: [facility]oria Flush 0.9% 2-10 (Same as: l 03:30: BD [place] 00 Posiflush) Saline No Notes: [facility]oria Flush 0.9% 2-10 (Same as: l 03:30: BD [place] 00 Posiflush) Saline No Notes: Memoria Flush [...] 1 Kahn (PEPCID) 40 1-18 tablet by [facility] lth mg tablet 00:00: mouth 00 daily. traZODone 2015-10 Yes Insomnia, 200mg Take 2 Kahn (DESYREL) 1-18 unspecified tablets by [facility] [place] 100 mg 00:00: type mouth at tablet [...] 2015-10 Yes Jock itch Q.5D Apply to [place] (MICOTIN) 2 0-03 affected [facility] % topical 00:00: area 2 cream 00 times daily. miconazole 2015-10 Yes Jock itch Q.5D Apply to [place] (MICOTIN) 2 0-03 affected [facility] % topical 00:00: area 2 cream 00 times daily. miconazole 2015-10 Yes Jock itch Q.5D Apply to [place] (MICOTIN) 2 0-03 affected [facility] % topical 00:00: area 2 cream 00 times daily. miconazole 2015-10 Yes Jock itch Q.5D Apply to [place] (MICOTIN) 2 0-03 affected [facility] % topical 00:00: area 2 cream 00 times daily. Immunizations Ordered Immunization Filled Immunization Date Status Commen ts Source Name Name Influenza Vaccine 2016-07-03 Completed [facility] 00:00:00 Influenza Vaccine 2016-07-03 Completed [facility] 00:00:00 Influenza Vaccine 2016-07-03 Completed [facility] 00:00:00 Influenza Vaccine 2016-07-03 Completed [facility] 00:00:00 PPD 2012-02-27 Completed [facility] 00:00:00 PPD 2012-02-27 Completed [facility] 00:00:00 PPD 2012-02-27 Completed [facility] 00:00:00 PPD 2012-02-27 Completed [facility] 00:00:00 PPD 2011-02-13 Completed [facility] 00:00:00 PPD 2011-02-13 Completed [facility] 00:00:00 PPD 2011-02-13 Completed [facility] 00:00:00 PPD 2011-02-13 Completed [facility] 00:00:00 Vital Signs Vital Name Observation Time Observation Value Comments Source Systolic blood 2022-09-02 17:19:00 107 mm[Hg] [facility] Diastolic blood 2022-09-02 17:19:00 65 mm[Hg] [facility] [place] [facility] Heart rate 2022-09-02 17:19:00 70 /min [facility] Body temperature 2022-09-02 17:19:00 35.83 Jennifer [facility] [place] [facility] Respiratory rate 2022-09-02 17:19:00 18 /min [facility] [place] [facility] Oxygen saturation in 2022-09-02 17:19:00 97 /min [facility] blood by [employer] [facility] Body weight 2022-09-01 09:58:00 70.988 kg [facility] BMI 2022-09-01 09:58:00 23.80 kg/m2 [facility] Body height 2022-08-20 00:20:00 172.7 cm [facility] Systolic blood 2022-08-12 03:27:00 120 mm[Hg] [facility] [place] [facility] Diastolic blood 2022-08-12 03:27:00 82 mm[Hg] [facility] [place] [facility] Heart rate 2022-08-12 03:27:00 74 /min [facility] [place] [facility] Respiratory rate 2022-08-12 03:27:00 16 /min [facility] [place] [facility] Oxygen saturation in 2022-08-12 03:27:00 99 /min [facility] blood by [employer] [facility] Body temperature 2022-08-11 23:53:00 36.56 Jennifer [facility] [place] [facility] Body height 2022-08-11 23:53:00 172.7 cm [facility] Body weight 2022-08-11 23:53:00 72.576 kg [facility] [place] [facility] BMI 2022-08-11 23:53:00 24.33 kg/m2 [facility] [place] [facility] Systolic blood 2022-08-09 15:00:00 116 mm[Hg] [facility] [place] [facility] Diastolic blood 2022-08-09 15:00:00 81 mm[Hg] [facility] [place] [facility] Heart rate 2022-08-09 15:00:00 73 /min [facility] [place] [facility] Respiratory rate 2022-08-09 15:00:00 13 /min [facility] [place] [facility] Oxygen saturation in 2022-08-09 15:00:00 100 /min [facility] [place] [employer] [facility] Body temperature 2022-08-09 14:11:00 36.28 Jennifer [facility] [place] [facility] Body height 2022-08-09 14:11:00 170.2 cm [facility] Body weight 2022-08-09 14:11:00 72.576 kg [facility] [place] [facility] BMI 2022-08-09 14:11:00 25.06 kg/m2 [facility] Systolic blood 2022-08-06 17:39:00 109 mm[Hg] [facility] [place] [facility] Diastolic blood 2022-08-06 17:39:00 65 mm[Hg] [facility] [place] [facility] Heart rate 2022-08-06 17:39:00 83 /min [facility] [place] [facility] Body temperature 2022-08-06 17:39:00 36.83 Jennifer [facility] [place] [facility] Respiratory rate 2022-08-06 17:39:00 18 /min [facility] [place] [facility] Oxygen saturation in 2022-08-06 17:39:00 97 /min [facility] [place] [employer] [facility] Body weight 2022-08-06 17:38:00 71.986 kg [facility] [place] [facility] BMI 2022-08-06 17:38:00 24.86 kg/m2 [facility] [place] [facility] Body height 2022-08-03 13:38:00 170.2 cm [facility] Respiratory rate 2022-08-05 15:10:00 19 /min [facility] [place] [facility] Systolic blood 2022-08-05 13:45:00 116 mm[Hg] [facility] [place] [facility] Diastolic blood 2022-08-05 13:45:00 70 mm[Hg] [facility] [place] [facility] Heart rate 2022-08-05 13:45:00 68 /min [facility] [place] [facility] Body temperature 2022-08-05 13:45:00 36.78 Jennifer [facility] [place] [facility] Respiratory rate 2022-08-05 13:45:00 18 /min [facility] [place] [facility] Oxygen saturation in 2022-08-05 13:45:00 99 /min [facility] [place] [employer] [facility] Body weight 2022-08-05 09:37:00 68.493 kg [facility] [place] [facility] BMI 2022-08-05 09:37:00 24.86 kg/m2 [facility] [place] [facility] Body height 2022-08-03 13:38:00 170.2 cm [facility] [place] [facility] Systolic blood 2022-07-13 23:00:00 117 mm[Hg] [facility] [place] [facility] Diastolic blood 2022-07-13 23:00:00 79 mm[Hg] [facility] [place] [facility] Heart rate 2022-07-13 23:00:00 73 /min [facility] [place] [facility] Oxygen saturation in 2022-07-13 23:00:00 99 /min [facility] [place] [employer] [facility] Respiratory rate 2022-07-13 22:00:00 18 /min [facility] [place] [facility] Body temperature 2022-07-13 19:10:00 36.89 Jennifer [facility] [place] [facility] Body height 2022-07-13 19:10:00 172.7 cm [facility] Body weight 2022-07-13 19:10:00 68.04 kg [facility] [place] [facility] BMI 2022-07-13 19:10:00 22.81 kg/m2 [facility] [place] [facility] Systolic blood 2022-06-08 19:28:00 114 mm[Hg] [facility] [place] [facility] Diastolic blood 2022-06-08 19:28:00 78 mm[Hg] [facility] [place] [facility] Heart rate 2022-06-08 19:28:00 90 /min [facility] [place] [facility] Body temperature 2022-06-08 19:28:00 36.78 Jennifer [facility] [place] [facility] Respiratory rate 2022-06-08 19:28:00 17 /min [facility] [place] [facility] Body height 2022-06-08 19:28:00 172.7 cm [facility] [place] [facility] Body weight 2022-06-08 19:28:00 67.767 kg [facility] [place] [facility] BMI 2022-06-08 19:28:00 22.72 kg/m2 [facility] [place] [facility] Oxygen saturation in 2022-06-08 19:28:00 97 /min [facility] by [facility] Pulse oximetry Branch Systolic blood 2022-05-28 12:37:00 101 mm[Hg] [facility] [place] [facility] Diastolic blood 2022-05-28 12:37:00 70 mm[Hg] [facility] Heart rate 2022-05-28 12:37:00 69 /min [facility] [place] [facility] Body temperature 2022-05-28 12:37:00 36.67 Jennifer [facility] [place] [facility] Respiratory rate 2022-05-28 12:37:00 18 /min [facility] [place] [facility] Body weight 2022-05-28 12:37:00 66.271 kg [facility] [place] [facility] BMI 2022-05-28 12:37:00 22.21 kg/m2 [facility] [place] [facility] Oxygen saturation in 2022-05-28 12:37:00 97 /min [facility] by [facility] Pulse oxim[facility] Branch Body height 2022-05-27 23:06:00 172.7 cm [facility] Systolic blood 2022-01-02 05:10:00 109 mm[Hg] [facility] [place] [facility] Diastolic blood 2022-01-02 05:10:00 80 mm[Hg] [facility] Heart rate 2022-01-02 05:10:00 106 /min [facility] [place] [facility] Body temperature 2022-01-02 05:10:00 37.22 Jennifer [facility] [place] [facility] Respiratory rate 2022-01-02 05:10:00 20 /min [facility] [place] [facility] Body height 2022-01-02 05:10:00 172.7 cm [facility] [place] [facility] Body weight 2022-01-02 05:10:00 63.504 kg [facility] [place] [facility] BMI 2022-01-02 05:10:00 21.29 kg/m2 [facility] [place] [facility] Oxygen saturation in 2022-01-02 05:10:00 98 /min [facility] [place] [employer] Pulse [facility] Branch Systolic blood 2021-09-27 08:13:00 112 mm[Hg] [facility] [place] [facility] Diastolic blood 2021-09-27 08:13:00 72 mm[Hg] [facility] [place] [facility] Heart rate 2021-09-27 08:13:00 77 /min [facility] [place] [facility] Body temperature 2021-09-27 08:13:00 36.72 Jennifer [facility] [place] [facility] Respiratory rate 2021-09-27 08:13:00 18 /min [facility] [place] [facility] Body height 2021-09-27 08:13:00 170.2 cm [facility] [place] [facility] Body weight 2021-09-27 08:13:00 68.04 kg [facility] [place] [facility] BMI 2021-09-27 08:13:00 23.49 kg/m2 [facility] Oxygen saturation in 2021-09-27 08:13:00 98 /min [facility] [place] [employer] [facility] Height/Length 2021-10-18 09:59:29 172.72 [...] al [facility] Heart Rate 2016-12-20 16:24:00 [facility] Temperature Oral (F) 2016-12-20 16:24:00 98.2 F [facility] Systolic (mm Hg) 2016-12-20 16:24:00 [facility] Diastolic (mm Hg) 2016-12-20 16:24:00 [facility] Respitory Rate 2016-12-20 13:24:00 [facility] Systolic (mm Hg) 2016-12-20 13:24:00 Raad [facility] Diastolic (mm Hg) 2016-12-20 13:24:00 Mem [facility] Heart Rate 2016-12-20 13:24:00 [facility] Temperature Oral (F) 2016-12-20 13:24:00 98.0 F [facility] Respitory Rate 2016-12-20 09:00:00 [facility] Systolic (mm Hg) 2016-12-20 09:00:00 Raad [facility] Diastolic (mm Hg) 2016-12-20 09:00:00 [facility] Temperature Oral (F) 2016-12-20 09:00:00 97.2 F [facility] Heart Rate 2016-12-20 09:00:00 [facility] Height 2016-12-19 23:06:00 172.72 cm [facility] BMI Calculated 2016-12-19 23:06:00 [facility] Weight 2016-12-19 23:06:00 [facility] Weight 2016-12-18 18:24:00 [facility] Height 2016-12-18 18:24:00 172.72 cm [facility] BMI Calculated 2016-12-18 18:24:00 [facility] Temperature Oral (F) 2016-11-19 00:28:00 97.0 F [facility] Heart Rate 2016-11-19 00:28:00 [facility] Respitory Rate 2016-11-19 00:28:00 [facility] Systolic (mm Hg) 2016-11-19 00:28:00 [facility] Diastolic (mm Hg) 2016-11-19 00:28:00 [facility] Height 2016-11-19 00:28:00 177.8 cm [facility] BMI Calculated 2016-11-19 00:28:00 [facility] Weight 2016-11-19 00:28:00 [facility] Height 2016-11-12 13:46:00 172.72 cm [facility] BMI Calculated 2016-11-12 13:46:00 [facility] Weight 2016-11-12 13:46:00 [facility] Heart Rate 2016-11-12 13:46:00 [facility] Respitory Rate 2016-11-12 13:46:00 [facility] Temperature Oral (F) 2016-11-12 13:46:00 97.5 F [facility] Systolic (mm Hg) 2016-11-12 13:46:00 [facility] Diastolic (mm Hg) 2016-11-12 13:46:00 [facility] Respitory Rate 2016-11-11 18:59:00 [facility] Heart Rate 2016-11-11 18:59:00 [facility] Temperature Oral (F) 2016-11-11 18:59:00 97.7 F [facility] Systolic (mm Hg) 2016-11-11 18:59:00 Raad [facility] Diastolic (mm Hg) 2016-11-11 18:59:00 [facility] Temperature Oral (F) 2016-11-11 13:30:00 97.5 F [facility] Systolic (mm Hg) 2016-11-11 13:30:00 Raad [facility] Diastolic (mm Hg) 2016-11-11 13:30:00 [facility] Respitory Rate 2016-11-11 13:30:00 [facility] Heart Rate 2016-11-11 13:30:00 [facility] Heart Rate 2016-11-11 09:29:00 [facility] Temperature Oral (F) 2016-11-11 09:29:00 97.8 F [facility] Respitory Rate 2016-11-11 09:29:00 [facility] Systolic (mm Hg) 2016-11-11 09:29:00 [facility] Diastolic (mm Hg) 2016-11-11 09:29:00 [facility] Weight 2016-11-10 10:09:00 [facility] BMI Calculated 2016-11-10 10:09:00 [facility] Height 2016-11-10 10:09:[address] [facility] Procedure Date / Time Performing Clinician Source Performed VANCOMYCIN TROUGH 2022-09-01 22:13:[address] [facility] BASIC METABOLIC PANEL 2022-08-31 10:48[facility], CL, CO2, GLUCOSE, Medica l Branch BUN, CREATININE, CA) CBC WITH DIFF 2022-08-31 10:48:00 [facility] 2022-08-30 09:53:[address] [facility] BASIC METABOLIC PANEL 2022-08-29 10:40:00 [facility] ([facility], K, CL, CO2, GLUCOSE, Medica l Branch BUN, CREATININE, CA) CBC WITH DIFF 2022-08-29 10:40:[address] [facility] BASIC METABOLIC PANEL 2022-08-25 06:21:00 Francine Garvin [facility] (NA, K, CL, CO2, GLUCOSE, Medica l Branch BUN, CREATININE, CA) VANCOMYCIN TROUGH 2022-08-25 06:21:00 Zaida Jeter [facility] CBC WITH DIFF 2022-08-25 06:21:00 Francine Garvin [facility] URINE DRUG (IMMUNOASSAY) 2022-08-24 06:25:00 [facility] - COMPREHENSIVE DRUG Medical [facility] SCREEN CBC WITH DIFF 2022-08-23 10:21:00 Francine Garvin [facility] DUPLEX VENOUS LEG LEFT - 2022-08-21 14:41:00 Americo Alfonso [facility] BY VASCULAR LAB [facility] BASIC METABOLIC PANEL 2022-08-21 09:11:00 Drake Duggan [facility] (NA, K, CL, CO2, GLUCOSE, Medica l Branch BUN, CREATININE, CA) CBC WITH DIFF 2022-08-21 09:11:[address] [facility] VANCOMYCIN TROUGH 2022-08-21 06:07:00 Roxana [facility] CT ANKLE LEFT W CONTRAST 2022-08-20 16:19:30 Enrique Martinez [facility] BASIC METABOLIC PANEL 2022-08-20 09:58:00 [facility] ([facility], K, CL, CO2, GLUCOSE, Medica l Branch BUN, CREATININE, CA) CBC WITH DIFF 2022-08-20 09:58:00 Juan [facility] LACTIC ACID WHOLE BLOOD 2022-08-20 04:18:00 Ursula Merino Un [facility] CT TIBIA FIBULA LEFT WO 2022-08-20 03:19:00 Americo Alfonso [facility] BLOOD CULTURE SCREEN 2022-08-19 21:25:00 [facility] BLOOD CULTURE SCREEN 2022-08-19 21:24:00 Ursula [facility] LACTIC ACID WHOLE BLOOD 2022-08-19 21:24:00 Ursula Merino Un [facility] XR FOOT 3+ VW LEFT 2022-08-19 21:19:46 Ursula Merino [facility] XR TIBIA FIBULA 2 VW LEFT 2022-08-19 21:19:46 [facility] COMP. METABOLIC PANEL 2022-08-19 21:13:00 [id number] CBC WITH DIFF 2022-08-19 21:13:00 [facility] XR KUB 2022-08-12 00:48:03 Otto Tao [facility] XR ANKLE <3 VW LEFT 2022-08-12 00:48:03 Otto Tao [facility] XR TIBIA FIBULA 2 VW LEFT 2022-08-12 00:48:03 [facility] 2022-08-12 00:22:00 Otto Tao [facility] (NA, K, CL, CO2, GLUCOSE, Medica l Branch BUN, CREATININE, CA) CBC WITH DIFF 2022-08-12 00:22:00 Otto Tao [facility] XR TIBIA FIBULA 2 VW LEFT 2022-08-09 14:39:53 Hao Gongora [facility]OLIC PANEL 2022-08-06 11:36:00 [facility] (NA, K, CL, CO2, GLUCOSE, Medica l Branch BUN, CREATININE, CA) VANCOMYCIN TROUGH 2022-08-06 11:36:00 Roxana [facility] CBC WITH DIFF 2022-08-06 11:36:00 Francine Garvin [facility] BASIC METABOLIC PANEL 2022-08-06 11:36:00 [facility] (NA, K, CL, CO2, GLUCOSE, Medica l Branch BUN, CREATININE, CA) VANCOMYCIN TROUGH 2022-08-06 11:36:00 Roxana [facility] CBC WITH DIFF 2022-08-06 11:36:00 Francine Garvin [facility] MRSA / MSSA SCREEN BY 2022-08-05 16:52:00 Matt Robles [facility] [place] PCR, [facility] Medical Branch MRSA / MSSA SCREEN BY 2022-08-05 16:52:00 Matt Robles [facility] [place] PCR, [facility] ASPIRATE OR ABSCESS 2022-08-05 15:08:00 Matt Robles [facility] [place] CULTURE(AEROBIC/ANAEROBIC Medica l Branch ) ASPIRATE OR ABSCESS 2022-08-05 15:08:00 Matt Robles [facility] [place] CULTURE(AEROBIC/ANAEROBIC Medica l Branch ) FL TIME (NON-REPORTABLE) 2022-08-05 15:03:44 Matt [facility] FL TIME (NON-REPORTABLE) 2022-08-05 15:03:44 Matt Robles [facility] ASPIRATE OR ABSCESS 2022-08-05 14:40:00 Matt Robles [facility] [place] CULTURE(AEROBIC/ANAEROBIC Medica [facility] Branch ) ASPIRATE OR ABSCESS 2022-08-05 14:40:00 Matt Robles [facility] [place] CULTURE(AEROBIC/ANAEROBIC Medica [facility] Branch ) INTUBATION 2022-08-05 14:11:[address] [facility] ANKLE HARDWARE REMOVAL 2022-08-05 13:47:00 Matt Robles [facility] BASIC METABOLIC PANEL 2022-08-05 10:25:00 Francine [facility] [place] (NA, K, CL, CO2, GLUCOSE, Medica l Branch BUN, CREATININE, CA) VANCOMYCIN TROUGH 2022-08-05 10:25:[address] [facility] CBC WITH DIFF 2022-08-05 10:25:00 Francine Garvin [facility] BASIC METABOLIC PANEL 2022-08-05 10:25:00 Francine Garvin iversity [facility] (NA, K, CL, CO2, GLUCOSE, Medica l Branch BUN, CREATININE, CA) VANCOMYCIN TROUGH 2022-08-05 10:25:[address] [facility] CBC WITH DIFF 2022-08-05 10:25:00 Francine Garvin [facility] MAGNESIUM 2022-08-04 09:03:00 Jennifer Frankel [facility] BASIC METABOLIC PANEL 2022-08-04 09:03:00 Jennifer Frankel [facility] (NA, K, CL, CO2, GLUCOSE, Medica l Branch BUN, CREATININE, CA) CBC WITH DIFF 2022-08-04 09:03:00 Jennifer Frankel [facility] MAGNESIUM 2022-08-04 09:03:00 Jennifer Frankel [facility] BASIC METABOLIC PANEL 2022-08-04 09:03:00 Jennifer Frankel [facility] (NA, K, CL, CO2, GLUCOSE, Medica l Branch BUN, CREATININE, CA) CBC WITH DIFF 2022-08-04 09:03:00 Jennifer Frankel [facility] DUPLEX ARTERIAL LEG LEFT 2022-08-03 18:48:00 Jennifer Frankel [facility] - BY VASCULAR LAB [facility] DUPLEX ARTERIAL LEG LEFT 2022-08-03 18:48:00 Jennifer Frankel [facility] - BY VASCULAR LAB [facility] MRSA / MSSA SCREEN BY 2022-08-03 18:26:00 Jennifer Frankel [facility] / MSSA SCREEN BY 2022-08-03 18:26:00 Jennifer Frankel [facility] PCR, [facility] TRANSTHORACIC ECHO (TTE) 2022-08-03 16:02:00 Jennifer Frankel [facility] W/ DOPPLER AND Medical B ranch COLOR TRANSTHORACIC ECHO (TTE) 2022-08-03 16:02:00 Jennifer Frankel [facility] W/ DOPPLER AND Medical B ranch COLOR WOUND/ASPIRATE OR ABSCESS 2022-08-03 11:02:00 [facility]22-08-03 11:02:[address] [facility] WOUND/ASPIRATE OR ABSCESS 2022-08-03 11:02:00 Andrea Hernandez [facility] WOUND CULTURE 2022-08-03 11:02:[address] [facility] BLOOD CULTURE SCREEN 2022-08-03 10:50:00 Andrea Hernandez [facility] BLOOD CULTURE SCREEN 2022-08-03 10:50:00 Andrea Hernandez [facility] XR ANKLE 3+ VW LEFT 2022-08-03 10:41:15 Andrea Hernandez [facility] XR ANKLE 3+ VW LEFT 2022-08-03 10:41:15 Andrea Hernandez [facility] COMP. METABOLIC PANEL 2022-08-03 10:04:00 Andrea Hernandez [facility] ([id number]) Medical Branch SEDIMENTATION RATE 2022-08-03 10:04:00 Andrea Hernandez [facility] CBC WITH DIFF 2022-08-03 10:04:[address] [facility] COMP. METABOLIC PANEL 2022-08-03 10:04:00 Andrea [facility] ([id number]) Medical Branch SEDIMENTATION RATE 2022-08-03 10:04:00 Andrea Hernandez [facility] CBC WITH DIFF 2022-08-03 10:04:[address] [facility] NOTICE OF PRIVACY 2022-08-03 09:48:04 Doctor Unashivani, [facility] NOTICE OF PRIVACY 2022-08-03 09:48:04 Doctor Unassigned, [facility] CONSENT/REFUSAL FOR 2022-08-03 09:47:46 Doctor Rich [facility] DIAGNOSIS AND TREATMENT [facility] CONSENT/REFUSAL FOR 2022-08-03 09:47:46 Doctor Unassitzel [facility] DIAGNOSIS AND TREATMENT [facility] HOSPITAL ADMISSION 2022-08-03 05:01:00 Doctor Rich [facility] [place] CT ABDOMEN PELVIS W 2022-07-13 21:14:00 Ann Patricia [facility] US SCROTUM AND CONTENTS 2022-07-13 21:08:15 Ann Patricia [facility] URINALYSIS 2022-07-13 20:30:[address] [facility] COMP. METABOLIC PANEL 2022-07-13 20:12:00 Ann Patricia [facility] ([id number]) [facility] CBC WITH DIFF 2022-07-13 20:12:[address] [facility] ASSIGNMENT OF BENEFITS 2022-06-08 19:18:51 Doctor Unassigned, Un [facility] [place] [facility] MAGNESIUM 2022-05-28 09:29:00 Jennifer Frankel [facility] BASIC METABOLIC PANEL 2022-05-28 09:29:00 Jennifer Frankel [facility] (NA, K, CL, CO2, GLUCOSE, Medica l Branch BUN, CREATININE, CA) N-TERMINAL PRO-BNP 2022-05-28 09:29:00 Shaun Laguerre [facility] TROPONIN I 2022-05-28 03:58:00 David [facility] LIPID PANEL ([id number])(TOTAL 2022-05-28 03:58:00 Oneil Hernandez [facility] CHOLESTEROL, [facility] TRIGLYCERIDES, HDL) GLYCOSYLATED HEMOGLOBIN 2022-05-28 03:58:00 David [facility] (A1C) [facility] D-DIMER 2022-05-28 03:58:00 David [facility] TROPONIN I 2022-05-27 23:54:00 Jostin [facility] COVID-19 (ID NOW RAPID 2022-05-27 20:31:00 Yeyo Rogers [facility] TESTING) [facility] XR CHEST 1 VW 2022-05-27 19:33:[address] [facility] CREATINE KINASE 2022-05-27 19:10:[address] [facility] TROPONIN I 2022-05-27 19:10:[address] [facility] COMP. METABOLIC PANEL 2022-05-27 19:10:00 Yeyo Rogers [facility] ([id number]) Medical Branch CBC WITH DIFF 2022-05-27 19:10:[address] [facility] CT HEAD WO CONTRAST 2022-01-02 05:55:20 Nestor Hammond [facility] CONSENT/REFUSAL FOR 2022-01-02 05:02:45 Doctor Unassigned, [facility] DIAGNOSIS AND TREATMENT [place] [facility] CONSENT/REFUSAL FOR 2021-09-27 07:58:16 Doctor Unassigned, [facility] DIAGNOSIS AND TREATMENT [place] [facility] Eye reconstruction 1993-10-01 00:00:00 [facility] Nose reconstruction 1991-10-01 00:00:00 [facility] Tonsillectomy and 1972-10-01 00:00:00 [facility] adenoidectomy Fracture care [facility] Plan of Care Planned Activity Planned Date Details Comments Source Future Scheduled Test 2023-07-01 00:00:00 IMM Influenza [facility] Seasonal (>/= 19 yrs) [code = IMM Influenza Seasonal (>/= 19 yrs)] Future Scheduled Test 2023-07-01 00:00:00 IMM Influenza [facility] Seasonal (>/= 19 yrs) [code = IMM Influenza Seasonal (>/= 19 yrs)] Future Scheduled Test 2022-07-01 00:00:00 IMM Influenza [facility] Seasonal (>/= 19 yrs) [code = IMM Influenza Seasonal (>/= 19 yrs)] Future Scheduled Test 2022-07-01 00:00:00 IMM Influenza [facility] Seasonal (>/= 19 yrs) [code = IMM Influenza Seasonal (>/= 19 yrs)] Future Scheduled Test 2017 00:00:00 Screening for [facility] malignant neoplasm of colon (procedure) [code = 623337108] Future Scheduled Test 2017 00:00:00 Screening for [facility] malignant neoplasm of colon (procedure) [code = 968288392] Future Scheduled Test 2017 00:00:00 Screening for [facility] malignant neoplasm of colon (procedure) [code = 004281760] Future Scheduled Test 2017 00:00:00 Screening for [facility] malignant neoplasm of colon (procedure) [code = 719450427] Future Scheduled Test 1967 00:00:00 COVID-19 Vaccine (#1) [facility] [code = COVID-19 Vaccine (#1)] Future Scheduled Test 1967 00:00:00 COVID-19 Vaccine (#1) [facility] [code = COVID-19 Vaccine (#1)] Future Scheduled Test 1967 00:00:00 COVID-19 Vaccine (#1) [facility] [code = COVID-19 Vaccine (#1)] Future Scheduled Test 1967 00:00:00 COVID-19 Vaccine (#1) [facility] [code = COVID-19 Vaccine (#1)] Future Scheduled Test 1967 00:00:00 Fluoride Varnish [facility] [code = Fluoride Varnish] Future Scheduled Test 1967 00:00:00 Fluoride Varnish [facility] [code = Fluoride Varnish] Encounters Start End Encounter Admission Attending Care Care Encounter Source Date/Time Date/Time Type Type Clinicians Facility Department ID 2022-01-02 Outpatient [facility] [id number] [place] 00:16:10 [id number] [facility] 2016-11-13 Inpatient E [facility] [id number] St. 23:30:00 [facility] 2023-01-30 2023-01-30 Outpatient [facility] [id number] Univers 14:50:00 14:50:00 WENDY ity [facility] 2022-09-04 2022-09-04 Transition JOSE Rhodes 1.2.840.114 [id number] Univers 00:00:00 00:00:00 of Care Marcia Ramirez RIA 350.1.13.10 i ty of [place] 4.2.7.2.686 [facility] [phone] [facility] [address] 2022-08-19 2022-09-02 Inpatient X JUAN [facility] [id number] Univers 14:48:00 12:18:[address] [facility] 2022-08-19 2022-09-02 Hospital Ursula Merino [facility] 1 .2.840.114 [id number] Univers 14:48:00 12:18:00 Encounter Enrique Martinez 350.1.13.10 ity [place] 4.2.7.2.686 [facility] [phone] [facility] [address] 2022-08-11 2022-08-11 Emergency [facility] [id number] Univers 17:59:00 21:40:00 OTTO eliazar [facility] 2022-08-11 2022-08-11 [facility] 1.2.873.730 [id number] Univers 17:59:00 21:40:00 Otto PALAFOX 350.1.13.10 i ty of [place] 4.2.7.2.686 [facility] [id number] [place] [address] [place] 2022-08-09 2022-08-09 Emergency X [facility] ERT [id number] Univers 08:09:00 09:54:00 HAO jairon [facility] 2022-08-09 2022-08-09 [facility] 1.2.538.209 [id number] Univers 08:09:00 09:54:00 Hao PALA[place]X 350.1.13.10 i ty of [place] 4.2.7.2.686 [facility] [phone] [place] [address] [place] 2022-08-08 2022-08-08 Transition JOSE Rhodes 1.2.840.114 [id number] Univers 00:00:00 00:00:00 of Care Marcia ROLLINS 350.1.13.10 i ty of [place] 4.2.7.2.686 [facility] [id number] [facility] [address] 2022-08-03 2022-08-06 Inpatient X JOSTIN [facility] [id number] Univers 05:04:00 15:42:00 JENNIFER perea [facility] 2022-08-03 2022-08-06 Hospital Andrea Hernandez [facility] 1.2.840. 114 [id number] Univers 05:04:00 15:42:00 Encounter Kimberlyn Ely 350.1.13.10 ity of Jennifer Frankel 4.2.7.2.686 [facility] [id number] [place] [address] [place] 2022-08-05 2022-08-05 Anesthesia Bharathi Roth [facility] 1.2.8 40.114 [id number] Univers 09:02:00 10:15:00 Event [place] 35 0.1.13.10 ity [facility] 4.2.7.2.[place] [id number] [facility] [address] 2022-08-05 2022-08-05 [facility] 1.2.187.078 [id number] Univers 09:05:00 10:12:00 Matt [place] 350.1.13.10 i [place] [id number] [facility] [address] 2022-07-13 2022-07-13 Emergency X [facility] [id number] Univers 14:11:00 19:47:00 ANN [facility] 2022-07-13 2022-07-[address] [facility] 1.2.760.603 [id number] Univers 14:11:00 19:47:00 Ann [place] 350.1.13.10 [place] [id number] [facility] [address] 2022-06-08 2022-06-08 Urgent [place], Ursula [facility] 1.2.840.114 [id number] Univers 14:20:00 14:40:00 Joaquin Florence [facility] 350.1.13.10 ity of [place] 4.2.7.2.686 [place] as KENRICK?BLEA [id number] [address] MEDICAL OFFICE BUILDING 2022-06-08 2022-06-08 Outpatient R AMY [facility] [id number] Univers 14:20:00 14:20:00 JOAQUIN [facility] 2022-06-08 2022-06-08 Orders Doctor FOSS 1.2.840.114 [id number] Univers 00:00:00 00:00:00 Only Unassigned, ISSA 350.1.13.10 ity of [place] [facility] 4.2.7.2.686 Cameron as [id number] [facility] [address] 2022-05-27 2022-05-28 [facility] [id number] Univers 14:03:00 11:28:00 JENNIFER perea [facility] 2022-05-27 2022-05-28 Emergency AdolfoMariaelena Phyllis [facility] 1.2.8 40.114 [id number] Univers 14:03:00 11:28:00 Yeyo Rogers 350.1.13.10 ity of Jennifer FrankelJESUS 4.2.7.2.686 [facility] [id number] [place] [address] [place] 2022-01-02 2022-01-02 Emergency [facility] [id number] Univers 00:16:00 01:18:00 NSETOR eliazar [facility] 2022-01-02 2022-01-02 Emergency [facility] 1.2.421.206 [id number] Univers 00:16:00 01:18:00 Nestor PALAFOX 350.1.13.10 i ty [facility] 4.2.7.2.686 [facility] [id number] [place] [address] [address] 2021-09-27 2021-09-27 Emergency Re[facility] [id number] Univers 02:16:00 02:45:00 HAO eliazar [facility] 2021-09-27 2021-09-27 Emergency [facility] 1.2.461.429 [id number] Univers 02:16:00 02:45:00 Hao PALAFOX 350.1.13.10 i ty of CHRISJESUS 4.2.7.2.686 [facility] [id number] [place] [address] 2021-09-27 2021-09-27 Orders Doctor PIPO 1.2.840.114 [id number] Univers 00:00:00 00:00:00 Only Unassigned, ISSA 350.1.13.10 ity of [place] [facility] 4.2.7.2.686 [facility] [id number] [facility] [address] 2020-01-05 2020-01-05 Hospital Lisa [facility] 1.2.840.114 [id number] 12:30:57 23:59:00 Encounter Pretty GUILLEN 350.1.13.10 MEDICAL 4.2.7.2.686 HAIKU [id number] [id number] 2020-01-05 2020-01-05 [facility] Lisa . 1.2.840.114 [id number] Univers 12:30:57 23:59:00 Encounter Pretty [facility]LLEN [facility]13.10 [facility].2.7.2.[facility] [id number] [place] [address] [address] 2020-01-05 2020-01-05 Emergency [facility] [id number] 18:04:00 18:04:00 [facility] 2020-01-05 2020-01-05 Emergency [facility] [place] [id number] 18:04:00 18:04:00 -[id number] [facility] 2020-01-05 2020-01-05 Outpatient [facility] [id number] Univers 00:00:00 00:00:00 PRETTY perea o f [facility] 2016-12-19 2016-12-20 [facility] [id number] Memoria 11:27:00 22:08:00 angela Stanley 03 [facility] 2016-12-19 2016-12-20 [facility] [id number] Memoria 11:27:00 22:08:00 angela Stanley 03 [facility] 2016-12-19 2016-12-20 Outpatient Be [facility] [id number] 06:27:00 17:08:00 Luis Fernando Leo 03 2016-11-19 2016-11-19 [facility] [id number] Memoria 00:24:00 03:23:00 angela Stanley 02 [facility] 2016-11-19 2016-11-19 Emergency [facility] [id number] Memoria 00:24:00 03:23:00 angela Stanley 02 [facility] 2016-11-18 2016-11-18 Outpatient Chris [facility] [id number] 18:24:00 21:23:00 Arminda Ramirez 2016-11-12 2016-11-12 [facility] [id number] Memoria 13:43:00 15:54:00 angela Stanley 01 [facility] 2016-11-12 2016-11-12 [facility] [id number] Memoria 13:43:00 15:54:00 r Wharncliffe 01 l [facility] 2016-11-12 2016-11-12 Outpatient Shahla Madden [facility] [id number] 07:43:00 09:54:00 Jonah 2016-11-10 2016-11-11 [facility] [id number] Memoria 03:20:00 20:50:00 r Wharncliffe l [facility] 2016-11-10 2016-11-11 Inpatient [facility] [id number] Memoria 03:20:00 20:50:00 r Wharncliffe l [facility] 2016-11-09 2016-11-11 Outpatient Ela Garvin [facility] [id number] 21:20:00 14:50:00 00 Results Test Description Test Time Test Comments Results Result Comments Source Vancomycin Trough Level - Draw random trough 09/01/22 at 1545 2022-09-01 23:22:38 dose. Test Item Value Reference Range Interpretation Comme nts VANCO TROUGH (test code = 4382284928) 8.2 ug/mL 10.0-20.0 L HERVE (test code = HERVE) Toxic Range: ?>20 ug/mL 15-20 ug/mL is recommended for severe infection or when Vancomycin GOPAL is greater than or equal to 2. Lab Interpretation (test code = Abnormal 55593-8) [facility] METABOLIC PANEL (NA, K, CL, CO2, GLUCOSE, BUN, CREATININE, CA)2022-08-31 12:06:30 Test Item Value Reference Range Interpretation Comments NA (test code = 140 mmol/L 135-145 7491311596) K (test code = 3.9 mmol/L 3.5-5.0 4106579479) CL (test code = 103 mmol/L 98-108 6001784275) CO2 TOTAL (test code 27 mmol/L 23-31 = 2045898455) AGAP (test code = 2-16 4852056327) BUN (test code = 14 mg/dL 7-23 7888615118) GLUCOSE (test code = 98 mg/dL 70-110 0534275179) CREATININE (test code 0.82 mg/dL 0.60-1.25 = 9352287365) CALCIUM (test code = 9.2 mg/dL 8.6-10.6 6856247992) eGFR (test code = mL/min/1.73m2 8317699129) HERVE (test code = HERVE) Association of [...] or urine or abnormalities in imaging tests). [facility] WITH [id number] 11:24:37 Test Item Value Reference Range Interpretation Comments WBC (test code = See_Comment [Automated 9045-2) message] The sy stem which generated this result transmitted reference range : 4.20 - 10.70 10*3/?L. The reference range was not used to interpret this result as normal/abnormal . RBC (test code = See_Comment [Automated 010-4) message] The sy stem which generated this [...] RDW-SD (test code = 41.0 fL 38.5-51.6 13927-1) RDW-CV (test code = 11.9 % 12.1-15.4 L 788-0) PLT (test code = See_Comment [Automated 777-3) message] The sy stem which generated this result transmitted reference range : 150 - 328 10*3/ ?L. The reference r natasha was not used to interpret this result as normal/abnormal . MPV (test code = 8.3 fL 9.8-13.0 L 59327-4) NRBC/100 WBC (test See_Comment [Automat ed code = 9295372670) message] The system which generated this result transmitted reference range : 0.0 - 10.0 /100 WBCs. The refer ence range was not u sed to interpret th is result as normal/abnormal . NRBC x10^3 (test code See_Comment [Auto mated = 5747511799) message] The s ystem which generated this result transmitted reference range : 10*3/?L. The reference range was not used to interpret this result as normal/abnormal . GRAN MAT (NEUT) % 52.7 % (test code = 770-8) IMM GRAN % (test code 0.40 % = 2508499825) LYMPH % (test code = 33.9 % 736-9) MONO % (test code = 8.1 % 5905-5) EOS % (test code = 4.3 % 713-8) BASO % (test code = 0.6 % 706-2) GRAN MAT x10^3(ANC) 4.75 10*3/uL 1.99-6.95 (test code = 9066227804) IMM GRAN x10^3 (test 0.04 10*3/uL 0.00-0.06 code = 1719868808) LYMPH x10^3 (test code 3.06 10*3/uL 1.09-3.23 = 731-0) MONO x10^3 (test code 0.73 10*3/uL 0.36-1.02 = 742-7) EOS x10^3 (test code = 0.39 10*3/uL 0.06-0.53 711-2) BASO x10^3 (test code 0.05 10*3/uL 0.01-0.09 = 704-7) Lab Interpretation Abnormal (test code = 75652-8) [facility] METABOLIC PANEL (NA, K, CL, CO2, GLUCOSE, BUN, CREATININE, CA)2022-08-29 12:26:10 Test Item Value Reference Range Interpretation Comments NA (test code = 137 mmol/L 135-145 5814044092) K (test code = 3.7 mmol/L 3.5-5.0 4762182594) CL (test code = 103 mmol/L 98-108 4134961715) CO2 TOTAL (test code = 26 mmol/L 23-31 7813231564) AGAP (test code = 2-16 0461732134) BUN (test code = 16 mg/dL 7-23 5702618979) GLUCOSE (test code = 126 mg/dL 70-110 H 5865426126) CREATININE (test code = 0.80 mg/dL 0.60-1.25 2413681121) CALCIUM (test code = 8.9 mg/dL 8.6-10.6 1927537094) eGFR (test code = mL/min/1.73m2 6364961691) HERVE (test code = HERVE) Association of [...] tests). Lab Interpretation Abnormal (test code = 85205-8) [facility] WITH [id number] 10:59:58 Test Item Value Reference Range Interpretation Comments WBC (test code = See_Comment [Automated 9394-2) message] The sy stem which generated this result transmitted reference range : 4.20 - 10.70 10*3/?L. The reference range was not used to interpret this result as normal/abnormal . RBC (test code = See_Comment [Automated 075-8) message] The sy stem which generated this [...] RDW-SD (test code = 41.6 fL 38.5-51.6 07283-4) RDW-CV (test code = 12.2 % 12.1-15.4 788-0) PLT (test code = See_Comment [Automated 292-3) message] The sy stem which generated this result transmitted reference range : 150 - 328 10*3/ ?L. The reference r natasha was not used to interpret this result as normal/abnormal . MPV (test code = 8.1 fL 9.8-13.0 L 72733-4) NRBC/100 WBC (test See_Comment [Automat ed code = 8690986455) message] The system which generated this result transmitted reference range : 0.0 - 10.0 /100 WBCs. The refer ence range was not u sed to interpret th is result as normal/abnormal . NRBC x10^3 (test code See_Comment [Auto mated = 1458941453) message] The s ystem which generated this result transmitted reference range : 10*3/?L. The reference range was not used to interpret this result as normal/abnormal . GRAN MAT (NEUT) % 52.2 % (test code = 770-8) IMM GRAN % (test code 0.50 % = 1640238884) LYMPH % (test code = 35.1 % 736-9) MONO % (test code = 6.7 % 5905-5) EOS % (test code = 4.8 % 713-8) BASO % (test code = 0.7 % 706-2) GRAN MAT x10^3(ANC) 4.55 10*3/uL 1.99-6.95 (test code = 0399311296) IMM GRAN x10^3 (test 0.04 10*3/uL 0.00-0.06 code = 7627525773) LYMPH x10^3 (test code 3.06 10*3/uL 1.09-3.23 = 731-0) MONO x10^3 (test code 0.58 10*3/uL 0.36-1.02 = 742-7) EOS x10^3 (test code = 0.42 10*3/uL 0.06-0.53 711-2) BASO x10^3 (test code 0.06 10*3/uL 0.01-0.09 = 704-7) Lab Interpretation Abnormal (test code = 73149-8) [facility] [id number] 22:02:01 Test Item Value Reference Range Interpretation Comments Blood Culture-Aerobic No organisms No growth Previo us (test code = 71696-5) isolated prelim inary verified result was Culture In Progress on 08/19/2022 at 1901 CSTPreviou s preliminary verified result was No growth a t 24 hours on 08/20/2022 at 1601 CSTPreviou s preliminary verified result was No growth a t 48 hours on 08/21/2022 at 1601 CSTPreviou s preliminary verified result was No growth a t 72 hours on 08/22/2022 at 1601 MARINE ERECTOR Blood No organisms No growth Previous Culture-Anaerobic isolated preliminar y (test code = 09052-6) verifi ed result was Culture In Progress on 08/19/2022 at 1901 CSTPreviou s preliminary verified result was No growth a t 24 hours on 08/20/2022 at 1601 CSTPreviou s preliminary verified result was No growth a t 48 hours on 08/21/2022 at 1601 CSTPreviou s preliminary verified result was No growth a t 72 hours on 08/22/2022 at 1601 MARINE ERECTOR Lab Interpretation Normal (test code = 80786-5) [facility] [id number] 22:02:01 Test Item Value Reference Range Interpretation Comments Blood Culture-Aerobic No organisms No growth Previo us (test code = 37303-8) isolated prelim inary verified result was Culture In Progress on 08/19/2022 at 1901 CSTPreviou s preliminary verified result was No growth a t 24 hours on 08/20/2022 at 1601 CSTPreviou s preliminary verified result was No growth a t 48 hours on 08/21/2022 at 1601 CSTPreviou s preliminary verified result was No growth a t 72 hours on 08/22/2022 at 1601 MARINE ERECTOR Blood No organisms No growth Previous Culture-Anaerobic isolated preliminar y (test code = 48838-9) verifi ed result was Culture In Progress on 08/19/2022 at 1901 CSTPreviou s preliminary verified result was No growth a t 24 hours on 08/20/2022 at 1601 CSTPreviou s preliminary verified result was No growth a t 48 hours on 08/21/2022 at 1601 CSTPreviou s preliminary verified result was No growth a t 72 hours on 08/22/2022 at 1601 MARINE ERECTOR Lab Interpretation Normal (test code = 32849-3) [facility] METABOLIC PANEL (NA, K, CL, CO2, GLUCOSE, BUN, CREATININE, CA)2022-08-21 10:38:11 Test Item Value Reference Range Interpretation Comments NA (test code = 137 mmol/L 135-145 3131779545) K (test code = 4.1 mmol/L 3.5-5.0 3228488794) CL (test code = 103 mmol/L 98-108 3922950921) CO2 TOTAL (test code = 29 mmol/L 23-31 5173203224) AGAP (test code = 2-16 0243007533) BUN (test code = 12 mg/dL 7-23 0591727345) GLUCOSE (test code = 121 mg/dL 70-110 H 2651521144) CREATININE (test code = 0.72 mg/dL 0.60-1.25 7908409636) CALCIUM (test code = 8.1 mg/dL 8.6-10.6 L 9217003177) eGFR (test code = mL/min/1.73m2 9687440964) HERVE (test code = HERVE) Association of [...] tests). Lab Interpretation Abnormal (test code = 38500-2) [facility] WITH [id number] 10:18:13 Test Item Value Reference Range Interpretation [...] RDW-SD (test code = 44.1 fL 38.5-51.6 47193-0) RDW-CV (test code = 12.4 % 12.1-15.4 788-0) PLT (test code = See_Comment [Automated 777-3) message] The sy stem which generated this result transmitted reference range : 150 - 328 10*3/ ?L. The reference r natasha was not used to interpret this result as normal/abnormal . MPV (test code = 8.4 fL 9.8-13.0 L 90330-1) NRBC/100 WBC (test See_Comment [Automat ed code = 0966282523) message] The system which generated this result transmitted reference range : 0.0 - 10.0 /100 WBCs. The refer ence range was not u sed to interpret th is result as normal/abnormal . NRBC x10^3 (test code See_Comment [Auto mated = 1078311664) message] The s ystem which generated this result transmitted reference range : 10*3/?L. The reference range was not used to interpret this result as normal/abnormal . GRAN MAT (NEUT) % 60.0 % (test code = 770-8) IMM GRAN % (test code 0.30 % = 6142482228) LYMPH % (test code = 27.8 % 736-9) MONO % (test code = 7.6 % 5905-5) EOS % (test code = 3.9 % 713-8) BASO % (test code = 0.4 % 706-2) GRAN MAT x10^3(ANC) 5.41 10*3/uL 1.99-6.95 (test code = 4704904726) IMM GRAN x10^3 (test 0.03 10*3/uL 0.00-0.06 code = 1908525403) LYMPH x10^3 (test code 2.51 10*3/uL 1.09-3.23 = 731-0) MONO x10^3 (test code 0.69 10*3/uL 0.36-1.02 = 742-7) EOS x10^3 (test code = 0.35 10*3/uL 0.06-0.53 711-2) BASO x10^3 (test code 0.04 10*3/uL 0.01-0.09 = 704-7) Lab Interpretation Abnormal (test code = 42074-3) [facility] with [id number] 10:57:19 Test Item Value Reference Range Interpretation Comments WBC (test code = See_Comment H [Automated 6490-2) message] The sy stem which generated this result transmitted reference range : 4.20 - 10.70 10*3/?L. The reference range was not used to interpret this result as normal/abnormal . RBC (test code = See_Comment [Automated 219-8) message] The sy stem which generated this [...] RDW-SD (test code = 43.2 fL 38.5-51.6 35061-9) RDW-CV (test code = 12.5 % 12.1-15.4 788-0) PLT (test code = See_Comment [Automated 777-3) message] The sy stem which generated this result transmitted reference range : 150 - 328 10*3/ ?L. The reference r natasha was not used to interpret this result as normal/abnormal . MPV (test code = 8.6 fL 9.8-13.0 L 94173-1) NRBC/100 WBC (test See_Comment [Automat ed code = 9069214453) message] The system which generated this result transmitted reference range : 0.0 - 10.0 /100 WBCs. The refer ence range was not u sed to interpret th is result as normal/abnormal . NRBC x10^3 (test code See_Comment [Auto mated = 8088560184) message] The s ystem which generated this result transmitted reference range : 10*3/?L. The reference range was not used to interpret this result as normal/abnormal . GRAN MAT (NEUT) % 69.3 % (test code = 770-8) IMM GRAN % (test code 0.40 % = 7831079050) LYMPH % (test code = 20.5 % 736-9) MONO % (test code = 6.6 % 5905-5) EOS % (test code = 2.8 % 713-8) BASO % (test code = 0.4 % 706-2) GRAN MAT x10^3(ANC) 7.74 10*3/uL 1.99-6.95 H (test code = 8331977137) IMM GRAN x10^3 (test 0.04 10*3/uL 0.00-0.06 code = 2661725583) LYMPH x10^3 (test code 2.28 10*3/uL 1.09-3.23 = 731-0) MONO x10^3 (test code 0.73 10*3/uL 0.36-1.02 = 742-7) EOS x10^3 (test code = 0.31 10*3/uL 0.06-0.53 711-2) BASO x10^3 (test code 0.04 10*3/uL 0.01-0.09 = 704-7) Lab Interpretation Abnormal (test code = 60966-6) [facility] Metabolic Panel (NA, K, CL, CO2, GLUCOSE, BUN, CREATININE, CA)2022-08-20 10:44:38 Test Item Value Reference Range Interpretation Comments NA (test code = 136 mmol/L 135-145 3505356420) K (test code = 3.9 mmol/L 3.5-5.0 2667152754) CL (test code = 105 mmol/L 98-108 5403558589) CO2 TOTAL (test code = 27 mmol/L 23-31 3520743428) AGAP (test code = 2-16 6696010758) BUN (test code = 10 mg/dL 7-23 8020126680) GLUCOSE (test code = 107 mg/dL 70-110 0456243383) CREATININE (test code = 0.80 mg/dL 0.60-1.25 7244648811) CALCIUM (test code = 8.2 mg/dL 8.6-10.6 L [id number]) eGFR (test code = mL/min/1.73m2 6588309469) HERVE (test code = HERVE) Association of [...] tests). Lab Interpretation Abnormal (test code = 46059-9) [facility]. METABOLIC PANEL (21318)2022-08-19 21:58:25 Test Item Value Reference Range Interpretation Comments NA (test code = 136 mmol/L 135-145 [id number]) K (test code = 3.8 mmol/L 3.5-5.0 9353759988) CL (test code = 102 mmol/L 98-108 5237703299) CO2 TOTAL (test code = 26 mmol/L 23-31 7386539072) AGAP (test code = 2-16 2791393559) BUN (test code = 13 mg/dL 7-23 0085045667) GLUCOSE (test code = 136 mg/dL 70-110 H 7167635493) CREATININE (test code = 0.68 mg/dL 0.60-1.25 9559873674) TOTAL BILI (test code = 0.8 mg/dL 0.1-1.5 5452697538) CALCIUM (test code = 8.9 mg/dL 8.6-10.6 9631909308) T PROTEIN (test code = 7.1 g/dL 6.3-8.2 8829583602) ALBUMIN (test code = 4.1 g/dL 3.5-5.0 8063391862) ALK PHOS (test code = 73 U/L 34-122 4997374228) ALTv (test code = 38 U/L 5-50 1742-6) AST(SGOT) (test code = 40 U/L 13 1852812290) eGFR (test code = mL/min/1.73m2 1846047314) HERVE (test code = HERVE) Association of [...] tests). Lab Interpretation Abnormal (test code = 46661-8) [facility] WITH [id number] 21:32:42 Test Item Value Reference Range Interpretation Comments WBC (test code = See_Comment H [Automated 4739-2) message] The system which generated this result transmit sharri reference range : 4.20 - 10.70 10*3/?L. The reference range was not used to interpret this result as normal/abnormal . RBC (test code = See_Comment [Automated 539-8) message] The system which generated this result [...] RDW-SD (test code = 41.6 fL 38.5-51.6 32743-6) RDW-CV (test code = 12.3 % 12.1-15.4 788-0) PLT (test code = See_Comment [Automated 777-3) message] The system which generated this result transmit sharri reference range : 150 - 328 10*3/ ?L. The reference range was not u sed to interpret th is result as normal/abnormal . MPV (test code = 8.1 fL 9.8-13.0 L 39062-4) NRBC/100 WBC (test See_Comment [Automat ed code = 1990021026) message] The system which generated this result transmit sharri reference range : 0.0 - 10.0 /100 WBCs. The reference range was not used to interpret this result as normal/abnormal . NRBC x10^3 (test code See_Comment [Auto mated = 1418167309) message] The system which generated this result transmit sharri reference range : 10*3/?L. The reference range was not used to interpret this result as normal/abnormal . GRAN MAT (NEUT) % 78.9 % (test code = 770-8) IMM GRAN % (test code 0.50 % = 7315774136) LYMPH % (test code = 13.6 % 736-9) MONO % (test code = 5.2 % 5905-5) EOS % (test code = 1.5 % 713-8) BASO % (test code = 0.3 % 706-2) GRAN MAT x10^3(ANC) 11.10 10*3/uL 1.99-6.95 H (test code = 9228090393) IMM GRAN x10^3 (test 0.07 10*3/uL 0.00-0.06 H code = 1316614116) LYMPH x10^3 (test code 1.92 10*3/uL 1.09-3.23 = 731-0) MONO x10^3 (test code 0.73 10*3/uL 0.36-1.02 = 742-7) EOS x10^3 (test code = 0.21 10*3/uL 0.06-0.53 711-2) BASO x10^3 (test code 0.04 10*3/uL 0.01-0.09 = 704-7) Lab Interpretation Abnormal (test code = 53579-4) [facility] [id number] 21:29:41 Test Item Value Reference Range Interpretation Comments LACTIC ACID (test code = 2.21 mmol/L 0.50-2.20 H 1101748462) Lab Interpretation (test code = Abnormal 74484-8) [facility] (NA, K, CL, CO2, GLUCOSE, BUN, CREATININE, CA)2022-08-12 00:53:51 Test Item Value Reference Range Interpretation Comments NA (test code = 139 mmol/L 135-145 5492615119) K (test code = 3.7 mmol/L 3.5-5.0 6576636936) CL (test code = 103 mmol/L 98-108 9809396009) CO2 TOTAL (test code = 27 mmol/L 23-31 8744603347) AGAP (test code = 2-16 1686016048) BUN (test code = 11 mg/dL 7-23 8785690128) GLUCOSE (test code = 125 mg/dL 70-110 H 7209475391) CREATININE (test code = 0.79 mg/dL 0.60-1.25 3761177713) CALCIUM (test code = 9.3 mg/dL 8.6-10.6 1928501778) eGFR (test code = mL/min/1.73m2 7449508962) HERVE (test code = HERVE) Association of [...] tests). Lab Interpretation Abnormal (test code = 52600-4) [facility] WITH [id number] 00:31:12 Test Item Value Reference Range Interpretation Comments WBC (test code = See_Comment [Automated 3644-2) message] The sy stem which generated this result transmitted reference range : 4.20 - 10.70 10*3/?L. The reference range was not used to interpret this result as normal/abnormal . RBC (test code = See_Comment [Automated 266-8) message] The sy stem which generated this [...] RDW-SD (test code = 41.1 fL 38.5-51.6 81795-7) RDW-CV (test code = 11.9 % 12.1-15.4 L 788-0) PLT (test code = See_Comment [Automated 777-3) message] The sy stem which generated this result transmitted reference range : 150 - 328 10*3/ ?L. The reference r natasha was not used to interpret this result as normal/abnormal . MPV (test code = 8.1 fL 9.8-13.0 L 21060-9) NRBC/100 WBC (test See_Comment [Automat ed code = 2259169802) message] The system which generated this result transmitted reference range : 0.0 - 10.0 /100 WBCs. The refer ence range was not u sed to interpret th is result as normal/abnormal . NRBC x10^3 (test code See_Comment [Auto mated = 1476833778) message] The s ystem which generated this result transmitted reference range : 10*3/?L. The reference range was not used to interpret this result as normal/abnormal . GRAN MAT (NEUT) % 56.7 % (test code = 770-8) IMM GRAN % (test code 0.30 % = 7888762263) LYMPH % (test code = 33.0 % 736-9) MONO % (test code = 6.3 % 5905-5) EOS % (test code = 3.1 % 713-8) BASO % (test code = 0.6 % 706-2) GRAN MAT x10^3(ANC) 5.14 10*3/uL 1.99-6.95 (test code = 2876556332) IMM GRAN x10^3 (test 0.03 10*3/uL 0.00-0.06 code = 0828857602) LYMPH x10^3 (test code 2.99 10*3/uL 1.09-3.23 = 731-0) MONO x10^3 (test code 0.57 10*3/uL 0.36-1.02 = 742-7) EOS x10^3 (test code = 0.28 10*3/uL 0.06-0.53 711-2) BASO x10^3 (test code 0.05 10*3/uL 0.01-0.09 = 704-7) Lab Interpretation Abnormal (test code = 65491-0) [facility] - Draw within 30 minutes prior to 4TH dose.2022-08-05 12:43:10 Test Item Value Reference Range Interpretation Comments VANCO TROUGH (test code 9.2 ug/mL 10.0-20.0 L = 7141779032) HERVE (test code = HERVE) Toxic Range: ?>20 ug/mL 15-20 ug/mL is recommended for severe infection or when Vancomycin GOPAL is greater than or equal to 2. Lab Interpretation (test Abnormal code = 62291-0) [facility] - Draw within 30 minutes prior to 4TH dose.2022-08-05 12:43:10 Test Item Value Reference Range Interpretation Comments VANCO TROUGH (test code 9.2 ug/mL 10.0-20.0 L = 0610674063) HERVE (test code = HERVE) Toxic Range: ?>20 ug/mL 15-20 ug/mL is recommended for severe infection or when Vancomycin GOPAL is greater than or equal to 2. Lab Interpretation (test Abnormal code = 66281-7) [facility] (NA, K, CL, CO2, GLUCOSE, BUN, CREATININE, CA)2022-08-05 12:37:51 Test Item Value Reference Range Interpretation Comments NA (test code = 139 mmol/L 135-145 1621486748) K (test code = 4.2 mmol/L 3.5-5.0 3872440998) CL (test code = 104 mmol/L 98-108 9385371258) CO2 TOTAL (test code 29 mmol/L 23-31 = 2190705022) AGAP (test code = 2-16 8734755086) BUN (test code = 15 mg/dL 7-23 3940239063) GLUCOSE (test code = 92 mg/dL 70-110 0033203177) CREATININE (test code 0.73 mg/dL 0.60-1.25 = 7302339484) CALCIUM (test code = 8.6 mg/dL 8.6-10.6 9716980629) eGFR (test code = mL/min/1.73m2 8874579043) HERVE (test code = HERVE) Association of [...] imaging tests). [facility] METABOLIC PANEL (NA, K, CL, CO2, GLUCOSE, BUN, CREATININE, CA)2022-08-05 12:37:51 Test Item Value Reference Range Interpretation Comments NA (test code = 139 mmol/L 135-145 5374589972) K (test code = 4.2 mmol/L 3.5-5.0 1225285748) CL (test code = 104 mmol/L 98-108 5985285240) CO2 TOTAL (test code 29 mmol/L 23-31 = 8395652767) AGAP (test code = 2-16 7113107765) BUN (test code = 15 mg/dL 7-23 7549782374) GLUCOSE (test code = 92 mg/dL 70-110 5328455149) CREATININE (test code 0.73 mg/dL 0.60-1.25 = 4567800264) CALCIUM (test code = 8.6 mg/dL 8.6-10.6 6138469236) eGFR (test code = mL/min/1.73m2 7467047097) HERVE (test code = HERVE) Association of [...] or urine or abnormalities in imaging tests). [facility] WITH [id number] 11:18:06 Test Item Value Reference Range Interpretation Comments WBC (test code = See_Comment [Automated 8415-2) message] The sy stem which generated this result transmitted reference range : 4.20 - 10.70 10*3/?L. The reference range was not used to interpret this result as normal/abnormal . RBC (test code = See_Comment [Automated 464-8) message] The sy stem which generated this [...] RDW-SD (test code = 41.6 fL 38.5-51.6 07175-7) RDW-CV (test code = 11.9 % 12.1-15.4 L 788-0) PLT (test code = See_Comment [Automated 777-3) message] The sy stem which generated this result transmitted reference range : 150 - 328 10*3/ ?L. The reference r natasha was not used to interpret this result as normal/abnormal . MPV (test code = 8.2 fL 9.8-13.0 L 66323-4) NRBC/100 WBC (test See_Comment [Automat ed code = 7717269938) message] The system which generated this result transmitted reference range : 0.0 - 10.0 /100 WBCs. The refer ence range was not u sed to interpret th is result as normal/abnormal . NRBC x10^3 (test code See_Comment [Auto mated = 1963432024) message] The s ystem which generated this result transmitted reference range : 10*3/?L. The reference range was not used to interpret this result as normal/abnormal . GRAN MAT (NEUT) % 55.2 % (test code = 770-8) IMM GRAN % (test code 0.30 % = 9789326194) LYMPH % (test code = 33.2 % 736-9) MONO % (test code = 6.9 % 5905-5) EOS % (test code = 3.8 % 713-8) BASO % (test code = 0.6 % 706-2) GRAN MAT x10^3(ANC) 4.38 10*3/uL 1.99-6.95 (test code = 1466883829) IMM GRAN x10^3 (test 0.00-0.06 code = 7909188793) LYMPH x10^3 (test code 2.64 10*3/uL 1.09-3.23 = 731-0) MONO x10^3 (test code 0.55 10*3/uL 0.36-1.02 = 742-7) EOS x10^3 (test code = 0.30 10*3/uL 0.06-0.53 711-2) BASO x10^3 (test code 0.05 10*3/uL 0.01-0.09 = 704-7) Lab Interpretation Abnormal (test code = 21630-5) [facility] WITH [id number] 11:18:06 Test Item Value Reference Range Interpretation Comments WBC (test code = See_Comment [Automated 6590-2) message] The sy stem which generated this result transmitted reference range : 4.20 - 10.70 10*3/?L. The reference range was not used to interpret this result as normal/abnormal . RBC (test code = See_Comment [Automated 829-8) message] The sy stem which generated this [...] RDW-SD (test code = 41.6 fL 38.5-51.6 93231-0) RDW-CV (test code = 11.9 % 12.1-15.4 L 788-0) PLT (test code = See_Comment [Automated 777-3) message] The sy stem which generated this result transmitted reference range : 150 - 328 10*3/ ?L. The reference r natasha was not used to interpret this result as normal/abnormal . MPV (test code = 8.2 fL 9.8-13.0 L 63770-2) NRBC/100 WBC (test See_Comment [Automat ed code = 6024029790) message] The system which generated this result transmitted reference range : 0.0 - 10.0 /100 WBCs. The refer ence range was not u sed to interpret th is result as normal/abnormal . NRBC x10^3 (test code See_Comment [Auto mated = 9912970037) message] The s ystem which generated this result transmitted reference range : 10*3/?L. The reference range was not used to interpret this result as normal/abnormal . GRAN MAT (NEUT) % 55.2 % (test code = 770-8) IMM GRAN % (test code 0.30 % = 4655891954) LYMPH % (test code = 33.2 % 736-9) MONO % (test code = 6.9 % 5905-5) EOS % (test code = 3.8 % 713-8) BASO % (test code = 0.6 % 706-2) GRAN MAT x10^3(ANC) 4.38 10*3/uL 1.99-6.95 (test code = 7263444914) IMM GRAN x10^3 (test 0.00-0.06 code = 8582661558) LYMPH x10^3 (test code 2.64 10*3/uL 1.09-3.23 = 731-0) MONO x10^3 (test code 0.55 10*3/uL 0.36-1.02 = 742-7) EOS x10^3 (test code = 0.30 10*3/uL 0.06-0.53 711-2) BASO x10^3 (test code 0.05 10*3/uL 0.01-0.09 = 704-7) Lab Interpretation Abnormal (test code = 24631-9) [facility]22-[facility]-03 17:34:35 Test Item Value Reference Range Interpretation Comments Height (test code = in 5550269032) Weight (test code = lbs 3010780842) Systolic BP (test code = mmHg 6068527877) Diastolic BP (test code mmHg = 2510069888) Heart Rate (test code = bpm 2859232106) BSA (test code = 1.74 m2 4910434363) LVOT diameter (test code 2.00 cm = 7752654047) LVOT area (test code = 3.20 cm2 1327938118) LVIDD (test code = 3.90 cm 7442954639) Left Ventricular End 66.7 mL Diastolic Volume by Teichholz Method (test code = 8083683) IVS (test code = 1.12 cm 8648380985) Interventricular Septum 1.12 cm Diastolic Thickness by 2D (test code = 9125928) LVPWD (test code = 1.12 cm 7313372812) PW (test code = 1.12 cm 0.6-1.9 6004191331) EF(Teich) (test code = 58.90 % 6076475020) LVIDS (test code = 2.70 cm 9392464311) Left Ventricular End 27.4 mL Systolic Volume by Teichholz Method (test code = 1111223) FS (test code = 31 % 6204016605) EF - 2D (test code = 58.90 % 00438110) LA size (test code = 3.1 cm 8706589105) TR Peak Warren (test code = 254.2 cm/s 3790637631) Triscuspid Valve mmHg Regurgitation Peak Gradient (test code = 0092566518) LAV(MOD-sp4) (test code 46.20 mL = 1489377229) MV stenosis pressure 1/2 70.1 ms time (test code = 4991545218) MV Peak E Warren (test code 56.2 cm/s = 5910267562) E wave decelartion time 0.23 s (test code = 2376893398) MV Peak A Warren (test code 54.7 cm/s = 8707664158) E/A ratio (test code = ratio 3267378881) MV Prop V (test code = 37.50 cm/s 4129786248) MV E/e' septal (test 14.2 cm/s code = 7711982429) Tapse (test code = 2.37 cm 1547843117) LVOT stroke volume (test 62.40 cm3 code = 1668888919) LVOT peak warren (test code 92.9 cm/s = 5226796571) LVOT mn grad (test code mmHg = 0952350436) AV LVOT peak gradient mmHg (test code = 8114048778) LVOT peak VTI (test code 19.8 cm = 0119843908) LV V1 mean (test code = 61.20 cm/s 0386641252) Aortic valve mean 74.9 cm/s velocity (test code = 2340593815) Ao peak warren (test code = 103.8 cm/s 4445175112) Ao VTI (test code = 21.1 cm 3555777435) AV area by cont VTI 3.0 cm2 (test code = 9268441409) AV area peak warren (test 2.8 cm2 code = 5181758824) Ao max PG (test code = 4.30 mm[Hg] 5187610850) AV peak gradient (test mmHg code = 3577279500) AV valve area (test code 3.00 cm2 = 5075831922) AV mean gradient (test mmHg code = 8512197617) Radiology Study observation (narrative) (test code = 02973-1) HERVE (test code = HERVE) ?Left?Ventricle: Left [...] flow Doppler and spectral Doppler. [facility]2022-[facility]-03 17:34:35 Test Item Value Reference Range Interpretation Comments Height (test code = in 6823523778) Weight (test code = lbs 1821537044) Systolic BP (test code = mmHg 4526127414) Diastolic BP (test code mmHg = 4773236862) Heart Rate (test code = bpm 8178930725) BSA (test code = 1.74 m2 5194702197) LVOT diameter (test code 2.00 cm = 3154012420) LVOT area (test code = 3.20 cm2 7326992811) LVIDD (test code = 3.90 cm 2695510215) Left Ventricular End 66.7 mL Diastolic Volume by Teichholz Method (test code = 4407577) IVS (test code = 1.12 cm 9083609426) Interventricular Septum 1.12 cm Diastolic Thickness by 2D (test code = 3975306) LVPWD (test code = 1.12 cm 9540210131) PW (test code = 1.12 cm 0.6-1.9 1004949323) EF(Teich) (test code = 58.90 % 5071479726) LVIDS (test code = 2.70 cm 6948159604) Left Ventricular End 27.4 mL Systolic Volume by Teichholz Method (test code = 9161057) FS (test code = 31 % 9221468730) EF - 2D (test code = 58.90 % 30518847) LA size (test code = 3.1 cm 3268979079) TR Peak Warren (test code = 254.2 cm/s 9555754780) Triscuspid Valve mmHg Regurgitation Peak Gradient (test code = 3471431653) LAV(MOD-sp4) (test code 46.20 mL = 4297009436) MV stenosis pressure 1/2 70.1 ms time (test code = 4280894002) MV Peak E Warren (test code 56.2 cm/s = 8792196054) E wave decelartion time 0.23 s (test code = 7570334164) MV Peak A Warren (test code 54.7 cm/s = 3452041550) E/A ratio (test code = ratio 9718078725) MV Prop V (test code = 37.50 cm/s 5689173873) MV E/e' septal (test 14.2 cm/s code = 5083266064) Tapse (test code = 2.37 cm 2859369274) LVOT stroke volume (test 62.40 cm3 code = 0606121174) LVOT peak warren (test code 92.9 cm/s = 1143066549) LVOT mn grad (test code mmHg = 8025747686) AV LVOT peak gradient mmHg (test code = 6105800986) LVOT peak VTI (test code 19.8 cm = 1747576853) LV V1 mean (test code = 61.20 cm/s 2707184067) Aortic valve mean 74.9 cm/s velocity (test code = 4044911861) Ao peak warren (test code = 103.8 cm/s 0607995126) Ao VTI (test code = 21.1 cm 2672629232) AV area by cont VTI 3.0 cm2 (test code = 0032170875) AV area peak warren (test 2.8 cm2 code = 2004255423) Ao max PG (test code = 4.30 mm[Hg] 8694679462) AV peak gradient (test mmHg code = 5333895701) AV valve area (test code 3.00 cm2 = 4669185982) AV mean gradient (test mmHg code = 5490596232) Radiology Study observation (narrative) (test code = 97198-7) HERVE (test code = HERVE) ?Left?Ventricle: Left [...] 2D, color flow Doppler and spectral Doppler. [facility] [id number] 10:52:18 Test Item Value Reference Range Interpretation Comments ESR (test code = 76576-3) See_Comment [ Automated message] The system [employer] generated this result transmitted ref erence range: 0 - 10 m m/HR. The reference r natasha was not used to interpret this result as normal/abnor mal. Lab Interpretation (test Normal code = 57653-5) [facility] [id number] 10:52:18 Test Item Value Reference Range Interpretation Comments ESR (test code = 42867-0) See_Comment [ Automated message] The system [employer] generated this result transmitted ref erence range: 0 - 10 m m/HR. The reference r natasha was not used to interpret this result as normal/abnor mal. Lab Interpretation (test Normal code = 10786-8) [facility]. METABOLIC PANEL ([id number])2022-08-03 10:39:37 Test Item Value Reference Range Interpretation Comments NA (test code = 136 mmol/L 135-145 7100531485) K (test code = 4.0 mmol/L 3.5-5.0 6970223434) CL (test code = 100 mmol/L 98-108 0308912135) CO2 TOTAL (test code = 28 mmol/L 23-31 0896139990) AGAP (test code = 2-16 5122869009) BUN (test code = 12 mg/dL 7-23 0898218317) GLUCOSE (test code = 181 mg/dL 70-110 H 5494128337) CREATININE (test code = 0.82 mg/dL 0.60-1.25 8432274621) TOTAL BILI (test code = 0.7 mg/dL 0.1-1.3 2758835237) CALCIUM (test code = 8.7 mg/dL 8.6-10.6 8359145798) T PROTEIN (test code = 7.1 g/dL 6.3-8.2 9790545043) ALBUMIN (test code = 4.1 g/dL 3.5-5.0 1432044634) ALK PHOS (test code = 71 U/L 34-122 0354014307) ALTv (test code = 35 U/L 5-50 1742-6) AST(SGOT) (test code = 46 U/L 13-40 H 8594176964) eGFR (test code = mL/min/1.73m2 2079098760) HERVE (test code = HERVE) Association of [...] tests). Lab Interpretation Abnormal (test code = 72096-1) [facility] METABOLIC PANEL (75686)2022-08-03 10:39:37 Test Item Value Reference Range Interpretation Comments NA (test code = 136 mmol/L 135-145 8873205634) K (test code = 4.0 mmol/L 3.5-5.0 0995043979) CL (test code = 100 mmol/L 98-108 6864691607) CO2 TOTAL (test code = 28 mmol/L 23-31 7435808259) AGAP (test code = 2-16 1553110141) BUN (test code = 12 mg/dL 7-23 2310373953) GLUCOSE (test code = 181 mg/dL 70-110 H 0106237062) CREATININE (test code = 0.82 mg/dL 0.60-1.25 0914562273) TOTAL BILI (test code = 0.7 mg/dL 0.1-1.6 9915911009) CALCIUM (test code = 8.7 mg/dL 8.6-10.6 5678366156) T PROTEIN (test code = 7.1 g/dL 6.3-8.2 2542451797) ALBUMIN (test code = 4.1 g/dL 3.5-5.0 3157451148) ALK PHOS (test code = 71 U/L 34-122 6277113710) ALTv (test code = 35 U/L 5-50 1742-6) AST(SGOT) (test code = 46 U/L 13-40 H 1385884021) eGFR (test code = mL/min/1.73m2 3909136016) HERVE (test code = HERVE) Association of [...] tests). Lab Interpretation Abnormal (test code = 81274-5) [facility] WITH [id number] 10:26:39 Test Item Value Reference Range Interpretation Comments WBC (test code = See_Comment H [Automated 0890-2) message] The sy stem which generated this result transmitted reference range : 4.20 - 10.70 10*3/?L. The reference range was not used to interpret this result as normal/abnormal . RBC (test code = See_Comment [Automated 839-8) message] The sy stem which generated this [...] RDW-SD (test code = 41.1 fL 38.5-51.6 57000-4) RDW-CV (test code = 11.9 % 12.1-15.4 L 788-0) PLT (test code = See_Comment [Automated 777-3) message] The sy stem which generated this result transmitted reference range : 150 - 328 10*3/ ?L. The reference r natasha was not used to interpret this result as normal/abnormal . MPV (test code = 8.0 fL 9.8-13.0 L 43712-5) NRBC/100 WBC (test See_Comment [Automat ed code = 1121216684) message] The system which generated this result transmitted reference range : 0.0 - 10.0 /100 WBCs. The refer ence range was not u sed to interpret th is result as normal/abnormal . NRBC x10^3 (test code See_Comment [Auto mated = 9172562670) message] The s ystem which generated this result transmitted reference range : 10*3/?L. The reference range was not used to interpret this result as normal/abnormal . GRAN MAT (NEUT) % 66.5 % (test code = 770-8) IMM GRAN % (test code 0.40 % = 4010443089) LYMPH % (test code = 24.1 % 736-9) MONO % (test code = 6.1 % 5905-5) EOS % (test code = 2.5 % 713-8) BASO % (test code = 0.4 % 706-2) GRAN MAT x10^3(ANC) 7.62 10*3/uL 1.99-6.95 H (test code = 4865579769) IMM GRAN x10^3 (test 0.05 10*3/uL 0.00-0.06 code = 1999034468) LYMPH x10^3 (test code 2.76 10*3/uL 1.09-3.23 = 731-0) MONO x10^3 (test code 0.70 10*3/uL 0.36-1.02 = 742-7) EOS x10^3 (test code = 0.29 10*3/uL 0.06-0.53 711-2) BASO x10^3 (test code 0.05 10*3/uL 0.01-0.09 = 704-7) Lab Interpretation Abnormal (test code = 43476-3) [facility] WITH [id number] 10:26:39 Test Item Value Reference Range Interpretation [...] RDW-SD (test code = 41.1 fL 38.5-51.6 79732-2) RDW-CV (test code = 11.9 % 12.1-15.4 L 788-0) PLT (test code = See_Comment [Automated 777-3) message] The sy stem which generated this result transmitted reference range : 150 - 328 10*3/ ?L. The reference r natasha was not used to interpret this result as normal/abnormal . MPV (test code = 8.0 fL 9.8-13.0 L 52370-6) NRBC/100 WBC (test See_Comment [Automat ed code = 9791310007) message] The system which generated this result transmitted reference range : 0.0 - 10.0 /100 WBCs. The refer ence range was not u sed to interpret th is result as normal/abnormal . NRBC x10^3 (test code See_Comment [Auto mated = 6994539945) message] The s ystem which generated this result transmitted reference range : 10*3/?L. The reference range was not used to interpret this result as normal/abnormal . GRAN MAT (NEUT) % 66.5 % (test code = 770-8) IMM GRAN % (test code 0.40 % = 5195530539) LYMPH % (test code = 24.1 % 736-9) MONO % (test code = 6.1 % 5905-5) EOS % (test code = 2.5 % 713-8) BASO % (test code = 0.4 % 706-2) GRAN MAT x10^3(ANC) 7.62 10*3/uL 1.99-6.95 H (test code = 6209502476) IMM GRAN x10^3 (test 0.05 10*3/uL 0.00-0.06 code = 4487978487) LYMPH x10^3 (test code 2.76 10*3/uL 1.09-3.23 = 731-0) MONO x10^3 (test code 0.70 10*3/uL 0.36-1.02 = 742-7) EOS x10^3 (test code = 0.29 10*3/uL 0.06-0.53 711-2) BASO x10^3 (test code 0.05 10*3/uL 0.01-0.09 = 704-7) Lab Interpretation Abnormal (test code = 77096-2) [facility] (75513)2022-07-13 20:47:58 Test Item Value Reference Range Interpretation Comments NA (test code = 140 mmol/L 135-145 1539176581) K (test code = 3.4 mmol/L 3.5-5 L 9441047815) CL (test code = 103 mmol/L 98-108 9212676513) CO2 TOTAL (test code = 31 mmol/L 23-31 9353126012) AGAP (test code = 2-16 5530757719) BUN (test code = 12 mg/dL 7-23 6994485925) GLUCOSE (test code = 118 mg/dL 70-110 H 0820837004) CREATININE (test code = 0.82 mg/dL 0.6-1.25 4662433170) TOTAL BILI (test code = 0.4 mg/dL 0.1-1.4 3434850430) CALCIUM (test code = 8.8 mg/dL 8.6-10.6 8136801115) T PROTEIN (test code = 7.2 g/dL 6.3-8.2 5725241070) ALBUMIN (test code = 4.2 g/dL 3.5-5 2606133038) ALK PHOS (test code = 82 U/L 34-122 9016933849) ALTv (test code = 53 U/L 5-50 H 2-6) AST(SGOT) (test code = 71 U/L 13-40 H 1145438274) eGFR (test code = mL/min/1.73m2 7324774727) HERVE (test code = HERVE) Association of [...] tests). Lab Interpretation Abnormal (test code = 37700-1) [facility] WITH [id number] 20:38:38 Test Item Value Reference Range Interpretation Comments WBC (test code = See_Comment [Automated 9362-2) message] The sy stem which generated this [...] RDW-SD (test code = 41.0 fL 38.5-51.6 07535-5) RDW-CV (test code = 11.9 % 12.1-15.4 L 788-0) PLT (test code = See_Comment [Automated 777-3) message] The sy stem which generated this result transmitted reference range : 150 - 328 10*3/ ?L. The reference r natasha was not used to interpret this result as normal/abnormal . MPV (test code = 8.5 fL 9.8-13 L 84782-8) NRBC/100 WBC (test See_Comment [Automat ed code = 3615281458) message] The system which generated this result transmitted reference range : 0.0 - 10.0 /100 WBCs. The refer ence range was not u sed to interpret th is result as normal/abnormal . NRBC x10^3 (test code See_Comment [Auto mated = 8586800038) message] The s ystem which generated this result transmitted reference range : 10*3/?L. The reference range was not used to interpret this result as normal/abnormal . GRAN MAT (NEUT) % 57.5 % (test code = 770-8) IMM GRAN % (test code 0.40 % = 2543702327) LYMPH % (test code = 31.6 % 736-9) MONO % (test code = 6.4 % 5905-5) EOS % (test code = 3.5 % 713-8) BASO % (test code = 0.6 % 706-2) GRAN MAT x10^3(ANC) 5.23 10*3/uL 1.99-6.95 (test code = 2356194515) IMM GRAN x10^3 (test 0.04 10*3/uL 0-0.06 code = 0720660894) LYMPH x10^3 (test code 2.87 10*3/uL 1.09-3.23 = 731-0) MONO x10^3 (test code 0.58 10*3/uL 0.36-1.02 = 742-7) EOS x10^3 (test code = 0.32 10*3/uL 0.06-0.53 711-2) BASO x10^3 (test code 0.05 10*3/uL 0.01-0.09 = 704-7) Lab Interpretation Abnormal (test code = 00468-2) [id number] 20:00:10 Test Item Value Reference Interpretation Comments Range TROPONIN I (test 0.002 ng/mL See_Comment [Automated code = 3012485929) message] The system which generated this result [...] biotin. Lab Interpretation Normal (test code = 55029-1) [facility]. METABOLIC PANEL (91958)2022-05-27 19:49:33 Test Item Value Reference Range Interpretation Comments NA (test code = 139 mmol/L 135-145 8288705417) K (test code = 3.4 mmol/L 3.5-5 L 9540005405) CL (test code = 104 mmol/L 98-108 0362676717) CO2 TOTAL (test code = 28 mmol/L 23-31 4499017625) AGAP (test code = 2-16 6089140117) BUN (test code = 19 mg/dL 7-23 7747233430) GLUCOSE (test code = 101 mg/dL 70-110 1357072047) CREATININE (test code = 1.02 mg/dL 0.6-1.25 8932768783) TOTAL BILI (test code = 1.3 mg/dL 0.1-1.1 H 1368517708) CALCIUM (test code = 9.0 mg/dL 8.6-10.6 9565189202) T PROTEIN (test code = 7.0 g/dL 6.3-8.2 7993047264) ALBUMIN (test code = 4.3 g/dL 3.5-5 5494112150) ALK PHOS (test code = 70 U/L 34-122 6967488549) ALTv (test code = 37 U/L 5-50 1742-6) AST(SGOT) (test code = 42 U/L 13-40 H 8468638630) eGFR (test code = mL/min/1.73m2 9852915133) HERVE (test code = HERVE) Association of [...] tests). Lab Interpretation Abnormal (test code = 12543-8) [facility] [id number] 19:48:48 Test Item Value Reference Range Interpretation Comments CK (test code = 6086718152) 159 U/L 33-194 Lab Interpretation (test code = Normal 33193-1) [facility] WITH [id number] 19:26:48 Test Item Value Reference Range Interpretation Comments WBC (test code = See_Comment [Automated 2290-2) message] The sy stem which generated this result transmitted reference range : 4.20 - 10.70 10*3/?L. The reference range was not used to interpret this result as normal/abnormal . RBC (test code = See_Comment [Automated 684-8) message] The sy stem which generated this [...] RDW-SD (test code = 42.5 fL 38.5-51.6 72763-1) RDW-CV (test code = 12.2 % 12.1-15.4 788-0) PLT (test code = See_Comment [Automated 327-3) message] The sy stem which generated this result transmitted reference range : 150 - 328 10*3/ ?L. The reference r natasha was not used to interpret this result as normal/abnormal . MPV (test code = 8.0 fL 9.8-13 L 66180-8) NRBC/100 WBC (test See_Comment [Automat ed code = 2205455583) message] The system which generated this result transmitted reference range : 0.0 - 10.0 /100 WBCs. The refer ence range was not u sed to interpret th is result as normal/abnormal . NRBC x10^3 (test code See_Comment [Auto mated = 4825257947) message] The s ystem which generated this result transmitted reference range : 10*3/?L. The reference range was not used to interpret this result as normal/abnormal . GRAN MAT (NEUT) % 54.4 % (test code = 770-8) IMM GRAN % (test code 0.30 % = 1290645551) LYMPH % (test code = 32.4 % 736-9) MONO % (test code = 9.2 % 5905-5) EOS % (test code = 3.3 % 713-8) BASO % (test code = 0.4 % 706-2) GRAN MAT x10^3(ANC) 4.06 10*3/uL 1.99-6.95 (test code = 2200383616) IMM GRAN x10^3 (test 0-0.06 code = 8973899263) LYMPH x10^3 (test code 2.42 10*3/uL 1.09-3.23 = 731-0) MONO x10^3 (test code 0.69 10*3/uL 0.36-1.02 = 742-7) EOS x10^3 (test code = 0.25 10*3/uL 0.06-0.53 711-2) BASO x10^3 (test code 0.03 10*3/uL 0.01-0.09 = 704-7) Lab Interpretation Abnormal (test code = 53914-9) [facility]abolic [id number] 08:29:05 Test Item Value Reference Range Interpretation [...] A/G 1.4 ratio N Ratio) Comprehensive Metabolic [id number] 08:29:05 Test Item Value Reference Range Interpretation [...] [employer], [email or web address] h.gov Comprehensive Metabolic Rnbqx5200-94-13 08:29:05 Test Item Value Reference Range Interpretation [...] Foundation, [email or web address] h.gov Complete Blood Count without [id number] 08:07:00 Test Item Value Reference Range Interpretation [...] code = IPF) 0 % N RPR [id number] 11:58:31 Test Item Value Reference Range Interpretation [...] = 09-30-2020 N Expiration Dt) Thyroid Stimulating [id number] 07:31:59 Test Item Value Reference Range Interpretation Comments TSH (test code = TSH) 1.000 mIU/mL 0.270-4.200 Lipid [id number] 07:11:41 Test Item Value Reference Range Interpretation Comments Cholesterol Total 176 mg/dL 0-200 RISK OF HE ART (test code = DISEASEPublishe d by Cholesterol Total) [place] [employer] Maria G lyte Optimal Borderl ine Increased RiskC HOL <200 200-239 >240TRI G <150 150-199 >200HDL Male >60 <40HDL Fema le >60 <50LDL <100 130 -159 >160LDL Near [facility] is 100-129 Triglycerides (test 68 mg/dL 9-200 [...] is LDL/HDL Ratio=L DL Calc/HDL Chol DRUG [id number] 13:01:00 Test Item Value Reference Range Interpretation Comments U Opiate Scr (test Negative *NA*(12/19/16 code = U Opiate Scr) 8:01 AM) [facility] [id number] 13:01:00 Test Item Value Reference Range Interpretation Comments U Cannab Scr (test Negative *NA*(12/19/16 code = U Cannab Scr) 8:01 AM) [facility] [id number] 13:01:00 Test Item Value Reference Range Interpretation Comments U Amph Scr (test code Positive *ABN*(12/19/16 = U Amph Scr) 8:01 AM) [facility] [id number] 13:01:00 Test Item Value Reference Range Interpretation Comments U Ysabel Scr (test code Negative *NA*(12/19/16 = U Ysabel Scr) 8:01 AM) [facility] [id number] 13:01:00 Test Item Value Reference Range Interpretation Comments U Benzodia Scr (test Negative *NA*(12/19/16 code = U Benzodia Scr) 8:01 AM) [facility] [id number] 13:01:00 Test Item Value Reference Range Interpretation Comments U Cocaine Scr (test Negative *NA*(12/19/16 code = U Cocaine Scr) 8:01 AM) [facility] [id number] 13:01:00 Test Item Value Reference Range Interpretation Comments UDS Note (test code = See Note (12/19/16 8:01 UDS Note) AM) [facility] [id number] 13:01:00 Test Item Value Reference Range Interpretation Comments U Phencyc Scr (test Negative *NA*(12/19/16 code = U Phencyc Scr) 8:01 AM) [facility] [id number] 13:01:00 Test Item Value Reference Range Interpretation Comments UDS Note (test code = See Note (12/19/16 8:01 UDS Note) AM) [facility] [id number] 13:01:00 Test Item Value Reference Range Interpretation Comments U Phencyc Scr (test Negative *NA*(12/19/16 code = U Phencyc Scr) 8:01 AM) [facility] [id number] 13:01:00 Test Item Value Reference Range Interpretation Comments U Opiate Scr (test Negative *NA*(12/19/16 code = U Opiate Scr) 8:01 AM) [facility] [id number] 13:01:00 Test Item Value Reference Range Interpretation Comments U Cannab Scr (test Negative *NA*(12/19/16 code = U Cannab Scr) 8:01 AM) [facility] [id number] 13:01:00 Test Item Value Reference Range Interpretation Comments U Amph Scr (test code Positive *ABN*(12/19/16 = U Amph Scr) 8:01 AM) [facility] [id number] 13:01:00 Test Item Value Reference Range Interpretation Comments U Ysabel Scr (test code Negative *NA*(12/19/16 = U Ysabel Scr) 8:01 AM) [facility] [id number] 13:01:00 Test Item Value Reference Range Interpretation Comments U Benzodia Scr (test Negative *NA*(12/19/16 code = U Benzodia Scr) 8:01 AM) [facility] [id number] 13:01:00 Test Item Value Reference Range Interpretation Comments U Cocaine Scr (test Negative *NA*(12/19/16 code = U Cocaine Scr) 8:01 AM) [facility] [id number] 13:01:00 Test Item Value Reference Range Interpretation Comments UDS Note (test code = See Note (12/19/16 8:01 UDS Note) AM) [facility] [id number] 13:01:00 Test Item Value Reference Range Interpretation Comments U Phencyc Scr (test Negative *NA*(12/19/16 code = U Phencyc Scr) 8:01 AM) [facility] [id number] 13:01:00 Test Item Value Reference Range Interpretation Comments U Opiate Scr (test Negative *NA*(12/19/16 code = U Opiate Scr) 8:01 AM) [facility] [id number] 13:01:00 Test Item Value Reference Range Interpretation Comments U Cannab Scr (test Negative *NA*(12/19/16 code = U Cannab Scr) 8:01 AM) [facility] [id number] 13:01:00 Test Item Value Reference Range Interpretation Comments U Amph Scr (test code Positive *ABN*(12/19/16 = U Amph Scr) 8:01 AM) [facility] [id number] 13:01:00 Test Item Value Reference Range Interpretation Comments U Ysabel Scr (test code Negative *NA*(12/19/16 = U Ysabel Scr) 8:01 AM) [facility] [id number] 13:01:00 Test Item Value Reference Range Interpretation Comments U Benzodia Scr (test Negative *NA*(12/19/16 code = U Benzodia Scr) 8:01 AM) [facility] [id number] 13:01:00 Test Item Value Reference Range Interpretation Comments U Cocaine Scr (test Negative *NA*(12/19/16 code = U Cocaine Scr) 8:01 AM) [facility] [id number] 13:01:00 Test Item Value Reference Range Interpretation Comments UDS Note (test code = See Note (12/19/16 8:01 UDS Note) AM) [facility] [id number] 13:01:00 Test Item Value Reference Range Interpretation Comments U Phencyc Scr (test Negative *NA*(12/19/16 code = U Phencyc Scr) 8:01 AM) [facility] [id number] 13:01:00 Test Item Value Reference Range Interpretation Comments U Opiate Scr (test Negative *NA*(12/19/16 code = U Opiate Scr) 8:01 AM) [facility] [id number] 13:01:00 Test Item Value Reference Range Interpretation Comments U Cannab Scr (test Negative *NA*(12/19/16 code = U Cannab Scr) 8:01 AM) [facility] [id number] 13:01:00 Test Item Value Reference Range Interpretation Comments U Amph Scr (test code Positive *ABN*(12/19/16 = U Amph Scr) 8:01 AM) [facility] [id number] 13:01:00 Test Item Value Reference Range Interpretation Comments U Ysabel Scr (test code Negative *NA*(12/19/16 = U Ysabel Scr) 8:01 AM) [facility] [id number] 13:01:00 Test Item Value Reference Range Interpretation Comments U Benzodia Scr (test Negative *NA*(12/19/16 code = U Benzodia Scr) 8:01 AM) [facility] [id number] 13:01:00 Test Item Value Reference Range Interpretation Comments U Cocaine Scr (test Negative *NA*(12/19/16 code = U Cocaine Scr) 8:01 AM) [facility] [id number] 13:01:00 Test Item Value Reference Range Interpretation Comments UDS Note (test code = See Note (12/19/16 8:01 UDS Note) AM) [facility] [id number] 13:01:00 Test Item Value Reference Range Interpretation Comments U Phencyc Scr (test Negative *NA*(12/19/16 code = U Phencyc Scr) 8:01 AM) [facility] [id number] 13:01:00 Test Item Value Reference Range Interpretation Comments U Opiate Scr (test Negative *NA*(12/19/16 code = U Opiate Scr) 8:01 AM) [facility] [id number] 13:01:00 Test Item Value Reference Range Interpretation Comments U Cannab Scr (test Negative *NA*(12/19/16 code = U Cannab Scr) 8:01 AM) [facility] [id number] 13:01:00 Test Item Value Reference Range Interpretation Comments U Amph Scr (test code Positive *ABN*(12/19/16 = U Amph Scr) 8:01 AM) [facility] [id number] 13:01:00 Test Item Value Reference Range Interpretation Comments U Ysabel Scr (test code Negative *NA*(12/19/16 = U Ysabel Scr) 8:01 AM) [facility] [id number] 13:01:00 Test Item Value Reference Range Interpretation Comments U Benzodia Scr (test Negative *NA*(12/19/16 code = U Benzodia Scr) 8:01 AM) [facility] [id number] 13:01:00 Test Item Value Reference Range Interpretation Comments U Cocaine Scr (test Negative *NA*(12/19/16 code = U Cocaine Scr) 8:01 AM) [facility] [id number] 13:01:00 Test Item Value Reference Range Interpretation Comments UDS Note (test code = See Note (12/19/16 8:01 UDS Note) AM) [facility] [id number] 13:01:00 Test Item Value Reference Range Interpretation Comments U Phencyc Scr (test Negative *NA*(12/19/16 code = U Phencyc Scr) 8:01 AM) [facility] [id number] 13:01:00 Test Item Value Reference Range Interpretation Comments U Opiate Scr (test Negative *NA*(12/19/16 code = U Opiate Scr) 8:01 AM) [facility] [id number] 13:01:00 Test Item Value Reference Range Interpretation Comments U Cannab Scr (test Negative *NA*(12/19/16 code = U Cannab Scr) 8:01 AM) [facility] [id number] 13:01:00 Test Item Value Reference Range Interpretation Comments U Amph Scr (test code Positive *ABN*(12/19/16 = U Amph Scr) 8:01 AM) [facility] [id number] 13:01:00 Test Item Value Reference Range Interpretation Comments U Ysabel Scr (test code Negative *NA*(12/19/16 = U Ysabel Scr) 8:01 AM) [facility] [id number] 13:01:00 Test Item Value Reference Range Interpretation Comments U Benzodia Scr (test Negative *NA*(12/19/16 code = U Benzodia Scr) 8:01 AM) [facility] [id number] 13:01:00 Test Item Value Reference Range Interpretation Comments U Cocaine Scr (test Negative *NA*(12/19/16 code = U Cocaine Scr) 8:01 AM) [facility] [id number] 13:01:00 Test Item Value Reference Range Interpretation Comments UDS Note (test code = See Note (12/19/16 8:01 UDS Note) AM) [facility] [id number] 13:01:00 Test Item Value Reference Range Interpretation Comments U Phencyc Scr (test Negative *NA*(12/19/16 code = U Phencyc Scr) 8:01 AM) [facility] [id number] 13:01:00 Test Item Value Reference Range Interpretation Comments U Opiate Scr (test Negative *NA*(12/19/16 code = U Opiate Scr) 8:01 AM) [facility] [id number] 13:01:00 Test Item Value Reference Range Interpretation Comments U Cannab Scr (test Negative *NA*(12/19/16 code = U Cannab Scr) 8:01 AM) [facility] [id number] 13:01:00 Test Item Value Reference Range Interpretation Comments U Amph Scr (test code Positive *ABN*(12/19/16 = U Amph Scr) 8:01 AM) [facility] [id number] 13:01:00 Test Item Value Reference Range Interpretation Comments U Ysabel Scr (test code Negative *NA*(12/19/16 = U Ysabel Scr) 8:01 AM) [facility] [id number] 13:01:00 Test Item Value Reference Range Interpretation Comments U Benzodia Scr (test Negative *NA*(12/19/16 code = U Benzodia Scr) 8:01 AM) [facility] [id number] 13:01:00 Test Item Value Reference Range Interpretation Comments U Cocaine Scr (test Negative *NA*(12/19/16 code = U Cocaine Scr) 8:01 AM) [facility] [id number] 13:01:00 Test Item Value Reference Range Interpretation Comments UDS Note (test code = See Note (12/19/16 8:01 UDS Note) AM) [facility] [id number] 13:01:00 Test Item Value Reference Range Interpretation Comments U Phencyc Scr (test Negative *NA*(12/19/16 code = U Phencyc Scr) 8:01 AM) [facility] [id number] 13:01:00 Test Item Value Reference Range Interpretation Comments U Opiate Scr (test Negative *NA*(12/19/16 code = U Opiate Scr) 8:01 AM) [facility] [id number] 13:01:00 Test Item Value Reference Range Interpretation Comments U Cannab Scr (test Negative *NA*(12/19/16 code = U Cannab Scr) 8:01 AM) [facility] [id number] 13:01:00 Test Item Value Reference Range Interpretation Comments U Amph Scr (test code Positive *ABN*(12/19/16 = U Amph Scr) 8:01 AM) [facility] [id number] 13:01:00 Test Item Value Reference Range Interpretation Comments U Ysabel Scr (test code Negative *NA*(12/19/16 = U Ysabel Scr) 8:01 AM) [facility] [id number] 13:01:00 Test Item Value Reference Range Interpretation Comments U Benzodia Scr (test Negative *NA*(12/19/16 code = U Benzodia Scr) 8:01 AM) [facility] [id number] 13:01:00 Test Item Value Reference Range Interpretation Comments U Cocaine Scr (test Negative *NA*(12/19/16 code = U Cocaine Scr) 8:01 AM) [facility]2017-02-19 03:24:00 Test Item Value Reference Range Interpretation Comments Creatinine Lvl (test code = Creatinine 0.90 0.50-1.40 Lvl) [facility]2017-02-19 03:24:00 Test Item Value Reference Range Interpretation Comments eGFR (test code = eGFR) 100 [facility]2017-02-19 03:24:00 Test Item Value Reference Range Interpretation Comments AGAP (test code = AGAP) 18.1 10.0-20.0 [facility]2017-02-19 03:24:00 Test Item Value Reference Range Interpretation Comments CO2 (test code = CO2) 22 24-32 [facility]2017-02-19 03:24:00 Test Item Value Reference Range Interpretation Comments Chloride Lvl (test code = Chloride Lvl) 97 95-109 [facility]2017-02-19 03:24:00 Test Item Value Reference Range Interpretation Comments Calcium Lvl (test code = Calcium Lvl) 8.7 8.5-10.5 [facility]2017-02-19 03:24:00 Test Item Value Reference Range Interpretation Comments Potassium Lvl (test code = Potassium 4.1 3.5-5.1 Lvl) [facility]2017-02-19 03:24:00 Test Item Value Reference Range Interpretation Comments Sodium Lvl (test code = Sodium Lvl) 133 135-145 [facility]2017-02-19 03:24:00 Test Item Value Reference Range Interpretation Comments Glucose Lvl (test code = Glucose Lvl) 92 70-99 [facility]2017-02-19 03:24:00 Test Item Value Reference Range Interpretation Comments BUN (test code = BUN) 12 7- [facility]2017-02-19 03:24:00 Test Item Value Reference Range Interpretation Comments Creatinine Lvl (test code = Creatinine 0.90 0.50-1.40 Lvl) [facility]2017-02-19 03:24:00 Test Item Value Reference Range Interpretation Comments eGFR (test code = eGFR) 100 [facility]2017-02-19 03:24:00 Test Item Value Reference Range Interpretation Comments AGAP (test code = AGAP) 18.1 10.0-20.0 [facility]2017-02-19 03:24:00 Test Item Value Reference Range Interpretation Comments CO2 (test code = CO2) 22 24-32 [facility]2017-02-19 03:24:00 Test Item Value Reference Range Interpretation Comments Chloride Lvl (test code = Chloride Lvl) 97 95-109 [facility]2017-02-19 03:24:00 Test Item Value Reference Range Interpretation Comments Calcium Lvl (test code = Calcium Lvl) 8.7 8.5-10.5 [facility]2017-02-19 03:24:00 Test Item Value Reference Range Interpretation Comments Potassium Lvl (test code = Potassium 4.1 3.5-5.1 Lvl) [facility]2017-02-19 03:24:00 Test Item Value Reference Range Interpretation Comments Sodium Lvl (test code = Sodium Lvl) 133 135-145 [facility]2017-02-19 03:24:00 Test Item Value Reference Range Interpretation Comments Glucose Lvl (test code = Glucose Lvl) 92 70-99 [facility]2017-02-19 03:24:00 Test Item Value Reference Range Interpretation Comments BUN (test code = BUN) 12 7-22 [facility]2017-02-19 03:24:00 Test Item Value Reference Range Interpretation Comments Creatinine Lvl (test code = Creatinine 0.90 0.50-1.40 Lvl) [facility]2017-02-19 03:24:00 Test Item Value Reference Range Interpretation Comments eGFR (test code = eGFR) 100 [facility]2017-02-19 03:24:00 Test Item Value Reference Range Interpretation Comments AGAP (test code = AGAP) 18.1 10.0-20.0 [facility]2017-02-19 03:24:00 Test Item Value Reference Range Interpretation Comments CO2 (test code = CO2) 22 - [facility]2017-02-19 03:24:00 Test Item Value Reference Range Interpretation Comments Chloride Lvl (test code = Chloride Lvl) 97 95-109 [facility]2017-02-19 03:24:00 Test Item Value Reference Range Interpretation Comments Calcium Lvl (test code = Calcium Lvl) 8.7 8.5-10.5 [facility]2017-02-19 03:24:00 Test Item Value Reference Range Interpretation Comments Potassium Lvl (test code = Potassium 4.1 3.5-5.1 Lvl) [facility]2017-02-19 03:24:00 Test Item Value Reference Range Interpretation Comments Sodium Lvl (test code = Sodium Lvl) 133 135-145 [facility]2017-02-19 03:24:00 Test Item Value Reference Range Interpretation Comments Glucose Lvl (test code = Glucose Lvl) 92 70-99 [facility]2017-02-19 03:24:00 Test Item Value Reference Range Interpretation Comments BUN (test code = BUN) 12 04-21 [facility]2017-02-19 03:24:00 Test Item Value Reference Range Interpretation Comments Creatinine Lvl (test code = Creatinine 0.90 0.50-1.40 Lvl) [facility]2017-02-19 03:24:00 Test Item Value Reference Range Interpretation Comments eGFR (test code = eGFR) 100 [facility]2017-02-19 03:24:00 Test Item Value Reference Range Interpretation Comments AGAP (test code = AGAP) 18.1 10.0-20.0 [facility]2017-02-19 03:24:00 Test Item Value Reference Range Interpretation Comments CO2 (test code = CO2) 22 - [facility]2017-02-19 03:24:00 Test Item Value Reference Range Interpretation Comments Chloride Lvl (test code = Chloride Lvl) 97 95-109 [facility]2017-02-19 03:24:00 Test Item Value Reference Range Interpretation Comments Calcium Lvl (test code = Calcium Lvl) 8.7 8.5-10.5 [facility]2017-02-19 03:24:00 Test Item Value Reference Range Interpretation Comments Potassium Lvl (test code = Potassium 4.1 3.5-5.1 Lvl) [facility]2017-02-19 03:24:00 Test Item Value Reference Range Interpretation Comments Sodium Lvl (test code = Sodium Lvl) 133 135-145 [facility]2017-02-19 03:24:00 Test Item Value Reference Range Interpretation Comments Glucose Lvl (test code = Glucose Lvl) 92 70-99 [facility]2017-02-19 03:24:00 Test Item Value Reference Range Interpretation Comments BUN (test code = BUN) 12 7- [facility]2017-02-19 03:24:00 Test Item Value Reference Range Interpretation Comments Creatinine Lvl (test code = Creatinine 0.90 0.50-1.40 Lvl) [facility]2017-02-19 03:24:00 Test Item Value Reference Range Interpretation Comments eGFR (test code = eGFR) 100 [facility]2017-02-19 03:24:00 Test Item Value Reference Range Interpretation Comments AGAP (test code = AGAP) 18.1 10.0-20.0 [facility]2017-02-19 03:24:00 Test Item Value Reference Range Interpretation Comments CO2 (test code = CO2) 22 24-32 [facility]2017-02-19 03:24:00 Test Item Value Reference Range Interpretation Comments Chloride Lvl (test code = Chloride Lvl) 97 95-109 [facility]2017-02-19 03:24:00 Test Item Value Reference Range Interpretation Comments Calcium Lvl (test code = Calcium Lvl) 8.7 8.5-10.5 [facility]2017-02-19 03:24:00 Test Item Value Reference Range Interpretation Comments Potassium Lvl (test code = Potassium 4.1 3.5-5.1 Lvl) [facility]2017-02-19 03:24:00 Test Item Value Reference Range Interpretation Comments Sodium Lvl (test code = Sodium Lvl) 133 135-145 [facility]2017-02-19 03:24:00 Test Item Value Reference Range Interpretation Comments Glucose Lvl (test code = Glucose Lvl) 92 70-99 [facility]2017-02-19 03:24:00 Test Item Value Reference Range Interpretation Comments BUN (test code = BUN) 04-21 [facility]2017-02-19 03:24:00 Test Item Value Reference Range Interpretation Comments Creatinine Lvl (test code = Creatinine 0.90 0.50-1.40 Lvl) [facility]2017-02-19 03:24:00 Test Item Value Reference Range Interpretation Comments eGFR (test code = eGFR) 100 [facility]2017-02-19 03:24:00 Test Item Value Reference Range Interpretation Comments AGAP (test code = AGAP) 18.1 10.0-20.0 [facility]2017-02-19 03:24:00 Test Item Value Reference Range Interpretation Comments CO2 (test code = CO2) [facility]2017-02-19 03:24:00 Test Item Value Reference Range Interpretation Comments Chloride Lvl (test code = Chloride Lvl) 97 95-109 [facility]2017-02-19 03:24:00 Test Item Value Reference Range Interpretation Comments Calcium Lvl (test code = Calcium Lvl) 8.7 8.5-10.5 [facility]2017-02-19 03:24:00 Test Item Value Reference Range Interpretation Comments Potassium Lvl (test code = Potassium 4.1 3.5-5.1 Lvl) [facility]2017-02-19 03:24:00 Test Item Value Reference Range Interpretation Comments Sodium Lvl (test code = Sodium Lvl) 133 135-145 [facility]2017-02-19 03:24:00 Test Item Value Reference Range Interpretation Comments Glucose Lvl (test code = Glucose Lvl) 92 70-99 [facility]2017-02-19 03:24:00 Test Item Value Reference Range Interpretation Comments BUN (test code = BUN) 04-21 [facility]2017-02-19 03:24:00 Test Item Value Reference Range Interpretation Comments Creatinine Lvl (test code = Creatinine 0.90 0.50-1.40 Lvl) [facility]2017-02-19 03:24:00 Test Item Value Reference Range Interpretation Comments eGFR (test code = eGFR) 100 [facility]2017-02-19 03:24:00 Test Item Value Reference Range Interpretation Comments AGAP (test code = AGAP) 18.1 10.0-20.0 [facility]2017-02-19 03:24:00 Test Item Value Reference Range Interpretation Comments CO2 (test code = CO2) [facility]2017-02-19 03:24:00 Test Item Value Reference Range Interpretation Comments Chloride Lvl (test code = Chloride Lvl) 97 95-109 [facility]2017-02-19 03:24:00 Test Item Value Reference Range Interpretation Comments Calcium Lvl (test code = Calcium Lvl) 8.7 8.5-10.5 [facility]2017-02-19 03:24:00 Test Item Value Reference Range Interpretation Comments Potassium Lvl (test code = Potassium 4.1 3.5-5.1 Lvl) [facility]2017-02-19 03:24:00 Test Item Value Reference Range Interpretation Comments Sodium Lvl (test code = Sodium Lvl) 133 135-145 [facility]2017-02-19 03:24:00 Test Item Value Reference Range Interpretation Comments Glucose Lvl (test code = Glucose Lvl) 92 70-99 [facility]2017-02-19 03:24:00 Test Item Value Reference Range Interpretation Comments BUN (test code = BUN) 12 04-21 [facility]2017-02-19 03:24:00 Test Item Value Reference Range Interpretation Comments Creatinine Lvl (test code = Creatinine 0.90 0.50-1.40 Lvl) [facility]2017-02-19 03:24:00 Test Item Value Reference Range Interpretation Comments eGFR (test code = eGFR) 100 [facility]2017-02-19 03:24:00 Test Item Value Reference Range Interpretation Comments AGAP (test code = AGAP) 18.1 10.0-20.0 [facility]2017-02-19 03:24:00 Test Item Value Reference Range Interpretation Comments CO2 (test code = CO2) [facility]2017-02-19 03:24:00 Test Item Value Reference Range Interpretation Comments Chloride Lvl (test code = Chloride Lvl) 97 95-109 [facility]2017-02-19 03:24:00 Test Item Value Reference Range Interpretation Comments Calcium Lvl (test code = Calcium Lvl) 8.7 8.5-10.5 [facility] [employer] [id number] 03:24:00 Test Item Value Reference Range Interpretation Comments Potassium Lvl (test code = Potassium 4.1 3.5-5.1 Lvl) [facility] [employer] [id number] 03:24:00 Test Item Value Reference Range Interpretation Comments Sodium Lvl (test code = Sodium Lvl) 133 135-145 [facility] [employer] [id number] 03:24:00 Test Item Value Reference Range Interpretation Comments Glucose Lvl (test code = Glucose Lvl) 92 70-99 [facility] [id number] 03:24:00 Test Item Value Reference Range Interpretation Comments BUN (test code = BUN) 12 - [employer] [id number] 02:24:00 Test Item Value Reference Range Interpretation Comments ABO/Rh (test code = ABO/Rh) O NEG [facility] [employer] [id number] 02:24:00 Test Item Value Reference Range Interpretation Comments Antibody Scrn (test Negative (11/18/16 8:24 code = Antibody Scrn) PM) [facility] [employer] [id number] 02:24:00 Test Item Value Reference Range Interpretation Comments U Cocaine Scr (test Positive *ABN*(11/18/16 code = U Cocaine Scr) 8:24 PM) [facility] [employer]2017-02-19 02:24:00 Test Item Value Reference Range Interpretation Comments U Benzodia Scr (test Negative *NA*(11/18/16 code = U Benzodia Scr) 8:24 PM) [facility] [employer] [id number] 02:24:00 Test Item Value Reference Range Interpretation Comments U Amph Scr (test code Negative *NA*(11/18/16 = U Amph Scr) 8:24 PM) [facility] [employer] [id number] 02:24:00 Test Item Value Reference Range Interpretation Comments U Opiate Scr (test Positive *ABN*(11/18/16 code = U Opiate Scr) 8:24 PM) [facility] [employer] [id number] 02:24:00 Test Item Value Reference Range Interpretation Comments U Cannab Scr (test Negative *NA*(11/18/16 code = U Cannab Scr) 8:24 PM) [facility] [id number] 02:24:00 Test Item Value Reference Range Interpretation Comments U Ysabel Scr (test code Negative *NA*(11/18/16 = U Ysabel Scr) 8:24 PM) [facility] [id number] 02:24:00 Test Item Value Reference Range Interpretation Comments U Phencyc Scr (test Negative *NA*(11/18/16 code = U Phencyc Scr) 8:24 PM) [facility] [id number] 02:24:00 Test Item Value Reference Range Interpretation Comments UDS Note (test code = See Note (11/18/16 8:24 UDS Note) PM) [facility] [id number] 02:24:00 Test Item Value Reference Range Interpretation Comments U Propoxyph Scr (test Negative *NA*(11/18/16 code = U Propoxyph Scr) 8:24 PM) [facility] [id number] 02:24:00 Test Item Value Reference Range Interpretation Comments U Methadone Scr (test Negative *NA*(11/18/16 code = U Methadone Scr) 8:24 PM) [id number] 02:24:00 Test Item Value Reference Range Interpretation Comments Monocytes # (test code 0.7 See_Comment [Aut omated message] The = Monocytes #) system which generated this result tra nsmitted reference range : <=0.8. The reference r natasha was not used to int erpret this result as normal/abnormal . [facility]evxDNHLEYKQRM9711-41-62 02:24:00 Test Item Value Reference Range Interpretation Comments Basophils # (test code 0.1 See_Comment [Aut omated message] The = Basophils #) system which generated this result tra nsmitted reference range : <=0.2. The reference r natasha was not used to int erpret this result as normal/abnormal . [facility] Hospit[id number] 02:24:00 Test Item Value Reference Range Interpretation Comments Eosinophils # (test code 0.1 See_Comment [A utomated message] The = Eosinophils #) system whic h generated this result tra nsmitted reference range : <=0.5. The reference r natasha was not used to int erpret this result as normal/abnormal . [facility] HospitalYzjwhiuOYUAXDAROH0386-85-39 02:24:00 Test Item Value Reference Range Interpretation Comments Segs (test code = Segs) 72.1 45.0-75.0 [facility] HospitalVznlbjrTHFLPSAANL7769-67-54 02:24:00 Test Item Value Reference Range Interpretation Comments Lymphocytes (test code = Lymphocytes) 20.2 20.0-40.0 [facility] HospitalK[id number] 02:24:00 Test Item Value Reference Range Interpretation Comments Monocytes (test code = Monocytes) 6.1 2.0-12.0 [facility] HospitalTruruorCSSLZDXDEU3120-87-05 02:24:00 Test Item Value Reference Range Interpretation Comments Segs-Bands # (test code = Segs-Bands #) 8.2 1.5-8.1 [facility] HospitalOqypjtaILQDDOFQNR9767-97-40 02:24:00 Test Item Value Reference Range Interpretation Comments Eosinophils (test code = 0.9 See_Comment [A utomated message] The Eosinophils) system which ge nerated this result tra nsmitted reference range : <=4.0. The reference r natasha was not used to int erpret this result as normal/abnormal . [facility] HospitalOmjhkuvZVJKJEJHUX0798-34-56 02:24:00 Test Item Value Reference Range Interpretation Comments Basophils (test code = 0.7 See_Comment [Aut omated message] The Basophils) system which ge nerated this result tra nsmitted reference range : <=1.0. The reference r natasha was not used to int erpret this result as normal/abnormal . [facility] HospitalMftisgrBAIYTJEEJQ3774-73-29 02:24:00 Test Item Value Reference Range Interpretation Comments Lymphocytes # (test code = Lymphocytes 2.3 1.0-5.5 #) [facility] Hospit[id number] 02:24:00 Test Item Value Reference Range Interpretation Comments RBC Morph (test code = Normal (11/18/16 8:24 RBC Morph) PM) [facility] HospitalQpbmrafRLAKUYLCFV9789-09-74 02:24:00 Test Item Value Reference Range Interpretation Comments Plt Morph (test code = Normal (11/18/16 8:24 Plt Morph) PM) [facility] HospitalMbdakwbVNYXPOIPCK4003-31-73 02:24:00 Test Item Value Reference Range Interpretation Comments Hgb (test code = Hgb) 15.2 14.0-18.0 [facility] HospitalDzuswewJZBGFCGVDZ1625-18-84 02:24:00 Test Item Value Reference Range Interpretation Comments WBC (test code = WBC) 11.3 3.7-10.4 [facility] HospitalYvxsqxhYBMKVSWBYL9413-16-22 02:24:00 Test Item Value Reference Range Interpretation Comments Hct (test code = Hct) 43.2 42.0-54.0 [facility] HospitalKmkflaeZZRMUKMLAY0775-67-94 02:24:00 Test Item Value Reference Range Interpretation Comments MCHC (test code = MCHC) 35.1 32.0-36.0 [facility] Hospit[id number] 02:24:00 Test Item Value Reference Range Interpretation Comments RBC (test code = RBC) 4.57 4.70-6.10 [facility] HospitalPfyblsuXODZCINNXQ0339-78-25 02:24:00 Test Item Value Reference Range Interpretation Comments MCV (test code = MCV) 94.6 80.0-94.0 [facility] HospitalWuwwajvOAJWVYZEKT5867-22-34 02:24:00 Test Item Value Reference Range Interpretation Comments RDW (test code = RDW) 12.5 11.5-14.5 [facility] HospitalOkfszbeKSLGJJBQMA2618-23-15 02:24:00 Test Item Value Reference Range Interpretation Comments MCH (test code = MCH) 33.2 pg 27.0-31.0 [facility] HospitalVjdwwbkZNVDNEKKVF5015-37-53 02:24:00 Test Item Value Reference Range Interpretation Comments MPV (test code = MPV) 6.6 7.4-10.4 [facility] HospitalRxgbczoTLOFBVZRGS0492-61-08 02:24:00 Test Item Value Reference Range Interpretation Comments Platelet (test code = Platelet) 231 133-450 [facility] HospitalYgkjvtxLTFQBQCRAU4547-25-79 02:24:00 Test Item Value Reference Range Interpretation Comments PT (test code = PT) 13.1 s 12.0-14.7 [facility] HospitalFkpfgxyLMUGXCYVZP6251-38-59 02:24:00 Test Item Value Reference Range Interpretation Comments INR (test code = INR) 0.97 0.85-1.17 [facility] HospitalPsvalazECPNVBQSYW4184-17-48 02:24:00 Test Item Value Reference Range Interpretation Comments PTT (test code = PTT) 27.1 s 22.9-35.8 [facility] HospitalXxtesvqSZRZTWNQUR8909-47-85 02:24:00 Test Item Value Reference Range Interpretation Comments RBC Morph (test code = Normal (11/18/16 8:24 RBC Morph) PM) [facility] HospitalTizgznxYYUSLXREHL7558-99-66 02:24:00 Test Item Value Reference Range Interpretation Comments Plt Morph (test code = Normal (11/18/16 8:24 Plt Morph) PM) [facility] HospitalZbghmecDSBYWRLCMM9281-67-14 02:24:00 Test Item Value Reference Range Interpretation Comments Hgb (test code = Hgb) 15.2 14.0-18.0 [facility] HospitalAoihrstHAXBAFKIJN5360-82-91 02:24:00 Test Item Value Reference Range Interpretation Comments WBC (test code = WBC) 11.3 3.7-10.4 [facility] HospitalDnlpqjyODXHQUWDJE1688-42-33 02:24:00 Test Item Value Reference Range Interpretation Comments Hct (test code = Hct) 43.2 42.0-54.0 [facility] HospitalIuhzwiaDBBIPGINZV6651-52-14 02:24:00 Test Item Value Reference Range Interpretation Comments MCHC (test code = MCHC) 35.1 32.0-36.0 [facility] HospitalCeajpgmGHHPGCMSQV2449-44-02 02:24:00 Test Item Value Reference Range Interpretation Comments RBC (test code = RBC) 4.57 4.70-6.10 [facility] HospitalPqnbajfFNDOEYYHZT5128-08-37 02:24:00 Test Item Value Reference Range Interpretation Comments MCV (test code = MCV) 94.6 80.0-94.0 [facility] HospitalQtfmjwtVSPULXAYRU8595-83-50 02:24:00 Test Item Value Reference Range Interpretation Comments RDW (test code = RDW) 12.5 11.5-14.5 [facility] HospitalRnidixlFKHQQZGUKP6095-91-15 02:24:00 Test Item Value Reference Range Interpretation Comments MCH (test code = MCH) 33.2 pg 27.0-31.0 [facility] HospitalWkgeazyAVYCEXTPKK4269-40-23 02:24:00 Test Item Value Reference Range Interpretation Comments MPV (test code = MPV) 6.6 7.4-10.4 [facility] HospitalGqkfwycEMSVAWUTTQ9362-87-55 02:24:00 Test Item Value Reference Range Interpretation Comments Platelet (test code = Platelet) 231 133-450 [facility] HospitalWnoqmwpTDBDZDYSXM1061-69-38 02:24:00 Test Item Value Reference Range Interpretation Comments PT (test code = PT) 13.1 s 12.0-14.7 [facility] EcugnxzCNNLDNKUOH8238-34-11 02:24:00 Test Item Value Reference Range Interpretation Comments INR (test code = INR) 0.97 0.85-1.[address] [facility] [address] [facility] HospitalZzwnynuJPOCNENCXQ6411-34-73 02:24:00 Test Item Value Reference Range Interpretation Comments PTT (test code = PTT) 27.1 s 22.9-35.8 [facility] [employer] [id number] 02:24:00 Test Item Value Reference Range Interpretation Comments ABO/Rh (test code = ABO/Rh) O NEG [facility] [employer] [id number] 02:24:00 Test Item Value Reference Range Interpretation Comments Antibody Scrn (test Negative (11/18/16 8:24 code = Antibody Scrn) PM) [facility] [employer] [id number] 02:24:00 Test Item Value Reference Range Interpretation Comments U Cocaine Scr (test Positive *ABN*(11/18/16 code = U Cocaine Scr) 8:24 PM) [facility] [employer]2017-02-19 02:24:00 Test Item Value Reference Range Interpretation Comments U Benzodia Scr (test Negative *NA*(11/18/16 code = U Benzodia Scr) 8:24 PM) [facility] [employer] [id number] 02:24:00 Test Item Value Reference Range Interpretation Comments U Amph Scr (test code Negative *NA*(11/18/16 = U Amph Scr) 8:24 PM) [facility] [employer] [id number] 02:24:00 Test Item Value Reference Range Interpretation Comments U Opiate Scr (test Positive *ABN*(11/18/16 code = U Opiate Scr) 8:24 PM) [facility] [employer]2017-02-19 02:24:00 Test Item Value Reference Range Interpretation Comments U Cannab Scr (test Negative *NA*(11/18/16 code = U Cannab Scr) 8:24 PM) [facility] [employer] [id number] 02:24:00 Test Item Value Reference Range Interpretation Comments U Ysabel Scr (test code Negative *NA*(11/18/16 = U Ysabel Scr) 8:24 PM) [facility] [employer]2017-02-19 02:24:00 Test Item Value Reference Range Interpretation Comments U Phencyc Scr (test Negative *NA*(11/18/16 code = U Phencyc Scr) 8:24 PM) [facility] [id number] 02:24:00 Test Item Value Reference Range Interpretation Comments UDS Note (test code = See Note (11/18/16 8:24 UDS Note) PM) [facility] [id number] 02:24:00 Test Item Value Reference Range Interpretation Comments U Propoxyph Scr (test Negative *NA*(11/18/16 code = U Propoxyph Scr) 8:24 PM) [facility]2017-02-19 02:24:00 Test Item Value Reference Range Interpretation Comments U Methadone Scr (test Negative *NA*(11/18/16 code = U Methadone Scr) 8:24 PM) [facility] HospitalCqeuisdWFFVTQFADP1490-73-59 02:24:00 Test Item Value Reference Range Interpretation Comments Monocytes # (test code 0.7 See_Comment [Aut omated message] The = Monocytes #) system which generated this result tra nsmitted reference range : <=0.8. The reference r natasha was not used to int erpret this result as normal/abnormal . [facility] HospitalIhbauakBDVPNSHDVR4846-15-18 02:24:00 Test Item Value Reference Range Interpretation Comments Basophils # (test code 0.1 See_Comment [Aut omated message] The = Basophils #) system which generated this result tra nsmitted reference range : <=0.2. The reference r natasha was not used to int erpret this result as normal/abnormal . [facility] HospitalJmxzdjwGUOVMLBKRD8435-95-35 02:24:00 Test Item Value Reference Range Interpretation Comments Eosinophils # (test code 0.1 See_Comment [A utomated message] The = Eosinophils #) system whic h generated this result tra nsmitted reference range : <=0.5. The reference r natasha was not used to int erpret this result as normal/abnormal . [facility] HospitalHddctxxIWPVAHXFGG6520-07-15 02:24:00 Test Item Value Reference Range Interpretation Comments Segs (test code = Segs) 72.1 45.0-75.0 [facility] HospitalLwdnyksZTGVWZQFUQ9691-31-65 02:24:00 Test Item Value Reference Range Interpretation Comments Lymphocytes (test code = Lymphocytes) 20.2 20.0-40.0 [facility] HospitalNnwxfvqWEKQKFWOYC9483-03-28 02:24:00 Test Item Value Reference Range Interpretation Comments Monocytes (test code = Monocytes) 6.1 2.0-12.0 [facility] HospitalQghsysoGZIHSXIEUM2300-32-07 02:24:00 Test Item Value Reference Range Interpretation Comments Segs-Bands # (test code = Segs-Bands #) 8.2 1.5-8.1 [facility] HospitalHqljezgSQLWJOTVDH1555-45-67 02:24:00 Test Item Value Reference Range Interpretation Comments Eosinophils (test code = 0.9 See_Comment [A utomated message] The Eosinophils) system which ge nerated this result tra nsmitted reference range : <=4.0. The reference r natasha was not used to int erpret this result as normal/abnormal . [facility] HospitalTzbfzjzMRHJRFXNPP7894-84-51 02:24:00 Test Item Value Reference Range Interpretation Comments Basophils (test code = 0.7 See_Comment [Aut omated message] The Basophils) system which ge nerated this result tra nsmitted reference range : <=1.0. The reference r natasha was not used to int erpret this result as normal/abnormal . [facility] HospitalXpeswjdPWPHJCTVFR4842-77-32 02:24:00 Test Item Value Reference Range Interpretation Comments Lymphocytes # (test code = Lymphocytes 2.3 1.0-5.5 #) [facility] HospitalUmomufqUIPEEVTCAP7746-69-65 02:24:00 Test Item Value Reference Range Interpretation Comments RBC Morph (test code = Normal (11/18/16 8:24 RBC Morph) PM) [facility] HospitalPcworpuJOVBUNKNGL0575-23-20 02:24:00 Test Item Value Reference Range Interpretation Comments Plt Morph (test code = Normal (11/18/16 8:24 Plt Morph) PM) [facility] HospitalKhuifmdQKLLLKXVCI4522-14-79 02:24:00 Test Item Value Reference Range Interpretation Comments Hgb (test code = Hgb) 15.2 14.0-18.0 [facility] HospitalGmucrlpOXGZQFWFUM4319-47-23 02:24:00 Test Item Value Reference Range Interpretation Comments WBC (test code = WBC) 11.3 3.7-10.4 [facility] HospitalQpjgestXHYHDWBTZO9026-41-47 02:24:00 Test Item Value Reference Range Interpretation Comments Hct (test code = Hct) 43.2 42.0-54.0 [facility] HospitalCjllxepLYAZBASEFI8019-23-72 02:24:00 Test Item Value Reference Range Interpretation Comments MCHC (test code = MCHC) 35.1 32.0-36.0 [facility] H[id number] 02:24:00 Test Item Value Reference Range Interpretation Comments RBC (test code = RBC) 4.57 4.70-6.10 [facility] HospitalGnhuinxWTXWVIMOFY7205-19-70 02:24:00 Test Item Value Reference Range Interpretation Comments MCV (test code = MCV) 94.6 80.0-94.0 [facility] HospitalTcqqwjyZFVKVXKFJX3013-61-29 02:24:00 Test Item Value Reference Range Interpretation Comments RDW (test code = RDW) 12.5 11.5-14.5 [facility] HospitalJonotsgXIOQPMVXFP1023-38-74 02:24:00 Test Item Value Reference Range Interpretation Comments MCH (test code = MCH) 33.2 pg 27.0-31.0 [facility] HospitalYvtlbvjGFOIBBAPOS0797-07-37 02:24:00 Test Item Value Reference Range Interpretation Comments MPV (test code = MPV) 6.6 7.4-10.4 [facility] HospitalWigphanTFJXBUFSIJ2466-18-60 02:24:00 Test Item Value Reference Range Interpretation Comments Platelet (test code = Platelet) 231 133-450 [facility] HospitalQxrnooiFKRDGUCKZA7740-45-83 02:24:00 Test Item Value Reference Range Interpretation Comments PT (test code = PT) 13.1 s 12.0-14.7 [facility] HospitalYujdougADMZWUSISY5505-97-30 02:24:00 Test Item Value Reference Range Interpretation Comments INR (test code = INR) 0.97 0.85-1.17 [facility]OT[facility]43[facility] 02:24:00 Test Item Value Reference Range Interpretation Comments PTT (test code = PTT) 27.1 s 22.9-35.[address] [facility] UFYKFXL7545-64-67 02:24:00 Test Item Value Reference Range Interpretation Comments ABO/Rh (test code = ABO/Rh) O NEG [facility] [employer] [id number] 02:24:00 Test Item Value Reference Range Interpretation Comments Antibody Scrn (test Negative (11/18/16 8:24 code = Antibody Scrn) PM) [facility] [id number] 02:24:00 Test Item Value Reference Range Interpretation Comments U Cocaine Scr (test Positive *ABN*(11/18/16 code = U Cocaine Scr) 8:24 PM) [facility] [id number] 02:24:00 Test Item Value Reference Range Interpretation Comments U Benzodia Scr (test Negative *NA*(11/18/16 code = U Benzodia Scr) 8:24 PM) [facility] [id number] 02:24:00 Test Item Value Reference Range Interpretation Comments U Amph Scr (test code Negative *NA*(11/18/16 = U Amph Scr) 8:24 PM) [facility] [id number] 02:24:00 Test Item Value Reference Range Interpretation Comments U Opiate Scr (test Positive *ABN*(11/18/16 code = U Opiate Scr) 8:24 PM) [facility] [id number] 02:24:00 Test Item Value Reference Range Interpretation Comments U Cannab Scr (test Negative *NA*(11/18/16 code = U Cannab Scr) 8:24 PM) [facility] [id number] 02:24:00 Test Item Value Reference Range Interpretation Comments U Ysabel Scr (test code Negative *NA*(11/18/16 = U Ysabel Scr) 8:24 PM) [facility] [id number] 02:24:00 Test Item Value Reference Range Interpretation Comments U Phencyc Scr (test Negative *NA*(11/18/16 code = U Phencyc Scr) 8:24 PM) [facility] [id number] 02:24:00 Test Item Value Reference Range Interpretation Comments UDS Note (test code = See Note (11/18/16 8:24 UDS Note) PM) [facility] [id number] 02:24:00 Test Item Value Reference Range Interpretation Comments U Propoxyph Scr (test Negative *NA*(11/18/16 code = U Propoxyph Scr) 8:24 PM) [facility] [id number] 02:24:00 Test Item Value Reference Range Interpretation Comments U Methadone Scr (test Negative *NA*(11/18/16 code = U Methadone Scr) 8:24 PM) [facility]VwipwznALWCCKNSJY5841-43-14 02:24:00 Test Item Value Reference Range Interpretation Comments Monocytes # (test code 0.7 See_Comment [Aut omated message] The = Monocytes #) system which generated this result tra nsmitted reference range : <=0.8. The reference r natasha was not used to int erpret this result as normal/abnormal . [facility] HospitalSfxgzylZCRIKVYRKL7964-43-74 02:24:00 Test Item Value Reference Range Interpretation Comments Basophils # (test code 0.1 See_Comment [Aut omated message] The = Basophils #) system which generated this result tra nsmitted reference range : <=0.2. The reference r natasha was not used to int erpret this result as normal/abnormal . [facility] HospitalUukqlbfNZVYJPDQYH4662-10-58 02:24:00 Test Item Value Reference Range Interpretation Comments Eosinophils # (test code 0.1 See_Comment [A utomated message] The = Eosinophils #) system whic h generated this result tra nsmitted reference range : <=0.5. The reference r natasha was not used to int erpret this result as normal/abnormal . [facility] HospitalNeotiarKEODTJGMVD3485-79-52 02:24:00 Test Item Value Reference Range Interpretation Comments Segs (test code = Segs) 72.1 45.0-75.0 [facility] HospitalKcnkwaoPQOFZXZHMC9464-68-30 02:24:00 Test Item Value Reference Range Interpretation Comments Lymphocytes (test code = Lymphocytes) 20.2 20.0-40.0 [facility] HospitalTcatmurCSHNHZCXMG2576-68-85 02:24:00 Test Item Value Reference Range Interpretation Comments Monocytes (test code = Monocytes) 6.1 2.0-12.0 [facility] HospitalGasxalnGEGVWWDVTJ0220-11-07 02:24:00 Test Item Value Reference Range Interpretation Comments Segs-Bands # (test code = Segs-Bands #) 8.2 1.5-8.1 [facility] HospitalTyfnaqzUKMHRJSARZ3213-20-84 02:24:00 Test Item Value Reference Range Interpretation Comments Eosinophils (test code = 0.9 See_Comment [A utomated message] The Eosinophils) system which ge nerated this result tra nsmitted reference range : <=4.0. The reference r natasha was not used to int erpret this result as normal/abnormal . [facility] HospitalVitjoscDALLKSBEUG9245-72-10 02:24:00 Test Item Value Reference Range Interpretation Comments Basophils (test code = 0.7 See_Comment [Aut omated message] The Basophils) system which ge nerated this result tra nsmitted reference range : <=1.0. The reference r natasha was not used to int erpret this result as normal/abnormal . [facility] HospitalAbvwhwyPBZLUKPBUM6492-30-71 02:24:00 Test Item Value Reference Range Interpretation Comments Lymphocytes # (test code = Lymphocytes 2.3 1.0-5.5 #) [facility] HospitalUhyxzlvOCBWNVQBPR2553-84-58 02:24:00 Test Item Value Reference Range Interpretation Comments RBC Morph (test code = Normal (11/18/16 8:24 RBC Morph) PM) [facility] HospitalCovpszjLVACDQTKKF3611-74-60 02:24:00 Test Item Value Reference Range Interpretation Comments Plt Morph (test code = Normal (11/18/16 8:24 Plt Morph) PM) [facility] HospitalFlwmacmQHGEFTKINM5464-31-47 02:24:00 Test Item Value Reference Range Interpretation Comments Hgb (test code = Hgb) 15.2 14.0-18.0 [facility] HospitalYrzciloZZQYMURXRY1283-75-47 02:24:00 Test Item Value Reference Range Interpretation Comments WBC (test code = WBC) 11.3 3.7-10.4 [facility] HospitalRoyjedmWZILUHBTYL1910-07-03 02:24:00 Test Item Value Reference Range Interpretation Comments Hct (test code = Hct) 43.2 42.0-54.0 [facility] HospitalBetdfxaYSIXEZWBQV7602-84-90 02:24:00 Test Item Value Reference Range Interpretation Comments MCHC (test code = MCHC) 35.1 32.0-36.0 [facility] HospitalSquzrxrWMGFTHVPIT4128-75-95 02:24:00 Test Item Value Reference Range Interpretation Comments RBC (test code = RBC) 4.57 4.70-6.10 [facility] HospitalIxutwymIATWLZUAPP9410-62-78 02:24:00 Test Item Value Reference Range Interpretation Comments MCV (test code = MCV) 94.6 80.0-94.0 [facility] HospitalVxozugvOJSXYCFVIL6724-45-46 02:24:00 Test Item Value Reference Range Interpretation Comments RDW (test code = RDW) 12.5 11.5-14.[address] [facility] HospitalXwqncrkBPSCPIYGEG1092-88-63 02:24:00 Test Item Value Reference Range Interpretation Comments MCH (test code = MCH) 33.2 pg 27.0-31.0 [facility]SjnkqkyHEHWVUXLZA2908-90-10 02:24:00 Test Item Value Reference Range Interpretation Comments MPV (test code = MPV) 6.6 7.4-10.4 [facility]viewQvcnvchSBCNRMNCWP7135-43-27 02:24:00 Test Item Value Reference Range Interpretation Comments Platelet (test code = Platelet) 231 133-450 [facility]viewIfbsksbVXPUJJDXKW1540-27-90 02:24:00 Test Item Value Reference Range Interpretation Comments PT (test code = PT) 13.1 s 12.0-14.7 [facility]viewOoekadqMKAEVJSLPQ2786-22-72 02:24:00 Test Item Value Reference Range Interpretation Comments INR (test code = INR) 0.97 0.85-1.17 [facility]viewIigukzxAZLNNSFYNJ9922-96-08 02:24:00 Test Item Value Reference Range Interpretation Comments PTT (test code = PTT) 27.1 s 22.9-35.8 [facility] [employer] TOANGSJ7412-59-47 02:24:00 Test Item Value Reference Range Interpretation Comments ABO/Rh (test code = ABO/Rh) O NEG [facility] [employer] [id number] 02:24:00 Test Item Value Reference Range Interpretation Comments Antibody Scrn (test Negative (11/18/16 8:24 code = Antibody Scrn) PM) [facility]viewTweet[facility] [id number] 02:24:00 Test Item Value Reference Range Interpretation Comments U Cocaine Scr (test Positive *ABN*(11/18/16 code = U Cocaine Scr) 8:24 PM) [facility] HospitalEtalia [id number] 02:24:00 Test Item Value Reference Range Interpretation Comments U Benzodia Scr (test Negative *NA*(11/18/16 code = U Benzodia Scr) 8:24 PM) [facility]viewTweet[facility] [id number] 02:24:00 Test Item Value Reference Range Interpretation Comments U Amph Scr (test code Negative *NA*(11/18/16 = U Amph Scr) 8:24 PM) [facility] [id number] 02:24:00 Test Item Value Reference Range Interpretation Comments U Opiate Scr (test Positive *ABN*(11/18/16 code = U Opiate Scr) 8:24 PM) [facility] [id number] 02:24:00 Test Item Value Reference Range Interpretation Comments U Cannab Scr (test Negative *NA*(11/18/16 code = U Cannab Scr) 8:24 PM) [facility] [id number] 02:24:00 Test Item Value Reference Range Interpretation Comments U Ysabel Scr (test code Negative *NA*(11/18/16 = U Ysabel Scr) 8:24 PM) [facility] [id number] 02:24:00 Test Item Value Reference Range Interpretation Comments U Phencyc Scr (test Negative *NA*(11/18/16 code = U Phencyc Scr) 8:24 PM) [facility] KVHGSJ6825-17-03 02:24:00 Test Item Value Reference Range Interpretation Comments UDS Note (test code = See Note (11/18/16 8:24 UDS Note) PM) [facility] [id number] 02:24:00 Test Item Value Reference Range Interpretation Comments U Propoxyph Scr (test Negative *NA*(11/18/16 code = U Propoxyph Scr) 8:24 PM) [facility] [id number] 02:24:00 Test Item Value Reference Range Interpretation Comments U Methadone Scr (test Negative *NA*(11/18/16 code = U Methadone Scr) 8:24 PM) [facility] HospitalKeulgqbVMASUPDGAV2598-63-90 02:24:00 Test Item Value Reference Range Interpretation Comments Monocytes # (test code 0.7 See_Comment [Aut omated message] The = Monocytes #) system which generated this result tra nsmitted reference range : <=0.8. The reference r natasha was not used to int erpret this result as normal/abnormal . [facility] HospitalMssbgtsBVNJNGKIBA7004-00-58 02:24:00 Test Item Value Reference Range Interpretation Comments Basophils # (test code 0.1 See_Comment [Aut omated message] The = Basophils #) system which generated this result tra nsmitted reference range : <=0.2. The reference r natasha was not used to int erpret this result as normal/abnormal . [facility] HospitalIpextkrDGJSMZZFTA9308-98-47 02:24:00 Test Item Value Reference Range Interpretation Comments Eosinophils # (test code 0.1 See_Comment [A utomated message] The = Eosinophils #) system whic h generated this result tra nsmitted reference range : <=0.5. The reference r natasha was not used to int erpret this result as normal/abnormal . [facility] HospitalLahumriXPNPNAPASC7061-90-29 02:24:00 Test Item Value Reference Range Interpretation Comments Segs (test code = Segs) 72.1 45.0-75.0 [facility] HospitalZiktwhsORJFAERKSC7820-17-86 02:24:00 Test Item Value Reference Range Interpretation Comments Lymphocytes (test code = Lymphocytes) 20.2 20.0-40.0 [facility] HospitalSqpohxoLDIZVEMBHP9062-11-44 02:24:00 Test Item Value Reference Range Interpretation Comments Monocytes (test code = Monocytes) 6.1 2.0-12.0 [facility] HospitalXurguncRQZGTCJKAM6208-98-00 02:24:00 Test Item Value Reference Range Interpretation Comments Segs-Bands # (test code = Segs-Bands #) 8.2 1.5-8.1 [facility] HospitalHybwjnlWBPVJDCZLX3787-19-93 02:24:00 Test Item Value Reference Range Interpretation Comments Eosinophils (test code = 0.9 See_Comment [A utomated message] The Eosinophils) system which ge nerated this result tra nsmitted reference range : <=4.0. The reference r natasha was not used to int erpret this result as normal/abnormal . [facility] HospitalUksevdsGXULUWACZX2404-64-97 02:24:00 Test Item Value Reference Range Interpretation Comments Basophils (test code = 0.7 See_Comment [Aut omated message] The Basophils) system which ge nerated this result tra nsmitted reference range : <=1.0. The reference r natasha was not used to int erpret this result as normal/abnormal . [facility] HospitalWwxwptpTSODFQMQDF7894-99-54 02:24:00 Test Item Value Reference Range Interpretation Comments Lymphocytes # (test code = Lymphocytes 2.3 1.0-5.5 #) [facility] HospitalVezkvowKWFYRGCZVJ7829-62-52 02:24:00 Test Item Value Reference Range Interpretation Comments RBC Morph (test code = Normal (11/18/16 8:24 RBC Morph) PM) [facility] HospitalFrrvoznKPNORSWWJM0320-48-40 02:24:00 Test Item Value Reference Range Interpretation Comments Plt Morph (test code = Normal (11/18/16 8:24 Plt Morph) PM) [facility] HospitalDmkagrwPTUONCQYAY5731-99-85 02:24:00 Test Item Value Reference Range Interpretation Comments Hgb (test code = Hgb) 15.2 14.0-18.0 [facility] HospitalBjraazaHGFBONBKEI1100-39-31 02:24:00 Test Item Value Reference Range Interpretation Comments WBC (test code = WBC) 11.3 3.7-10.4 [facility] HospitalGhzluziLVNFECTLID6775-67-43 02:24:00 Test Item Value Reference Range Interpretation Comments Hct (test code = Hct) 43.2 42.0-54.0 [facility] HospitalLsljdnvIOCGKLMRRT0982-68-94 02:24:00 Test Item Value Reference Range Interpretation Comments MCHC (test code = MCHC) 35.1 32.0-36.0 [facility] HospitalCrmgkjzDYTWEPIQTP9345-06-29 02:24:00 Test Item Value Reference Range Interpretation Comments RBC (test code = RBC) 4.57 4.70-6.10 [facility] HospitalXpufqexZQZSCTYDMQ2224-04-23 02:24:00 Test Item Value Reference Range Interpretation Comments MCV (test code = MCV) 94.6 80.0-94.0 [facility] HospitalGgwyevoYYMBIOKNEA3241-33-62 02:24:00 Test Item Value Reference Range Interpretation Comments RDW (test code = RDW) 12.5 11.5-14.5 [facility] HospitalNginaqaEXMUYTBYSX1948-01-26 02:24:00 Test Item Value Reference Range Interpretation Comments MCH (test code = MCH) 33.2 pg 27.0-31.0 [facility] HospitalJfpwuetXXKYVYVJHQ6169-20-15 02:24:00 Test Item Value Reference Range Interpretation Comments MPV (test code = MPV) 6.6 7.4-10.4 [facility] HospitalUicfkffQFORXUOVOJ8530-96-16 02:24:00 Test Item Value Reference Range Interpretation Comments Platelet (test code = Platelet) 231 133-450 [facility] HospitalWaamqneESUXBXGILX3877-48-43 02:24:00 Test Item Value Reference Range Interpretation Comments PT (test code = PT) 13.1 s 12.0-14.7 [facility] HospitalVqqijpgZCGSCUOULB6076-73-54 02:24:00 Test Item Value Reference Range Interpretation Comments INR (test code = INR) 0.97 0.85-1.17 [facility]viewAntzakxEULVMNLEOC5102-13-94 02:24:00 Test Item Value Reference Range Interpretation Comments PTT (test code = PTT) 27.1 s 22.9-35.8 [email or web address] HVEPFTF9638-07-41 02:24:00 Test Item Value Reference Range Interpretation Comments ABO/Rh (test code = ABO/Rh) O NEG [facility]viewLoco2 NGBNSFZ5524-12-58 02:24:00 Test Item Value Reference Range Interpretation Comments Antibody Scrn (test Negative (11/18/16 8:24 code = Antibody Scrn) PM) [facility]viewTweet[facility] [id number] 02:24:00 Test Item Value Reference Range Interpretation Comments U Cocaine Scr (test Positive *ABN*(11/18/16 code = U Cocaine Scr) 8:24 PM) [facility]Tweet[facility] [id number] 02:24:00 Test Item Value Reference Range Interpretation Comments U Benzodia Scr (test Negative *NA*(11/18/16 code = U Benzodia Scr) 8:24 PM) [facility] [id number] 02:24:00 Test Item Value Reference Range Interpretation Comments U Amph Scr (test code Negative *NA*(11/18/16 = U Amph Scr) 8:24 PM) [facility] [id number] 02:24:00 Test Item Value Reference Range Interpretation Comments U Opiate Scr (test Positive *ABN*(11/18/16 code = U Opiate Scr) 8:24 PM) [facility] [id number] 02:24:00 Test Item Value Reference Range Interpretation Comments U Cannab Scr (test Negative *NA*(11/18/16 code = U Cannab Scr) 8:24 PM) [facility] [id number] 02:24:00 Test Item Value Reference Range Interpretation Comments U Ysabel Scr (test code Negative *NA*(11/18/16 = U Ysabel Scr) 8:24 PM) [facility] [id number] 02:24:00 Test Item Value Reference Range Interpretation Comments U Phencyc Scr (test Negative *NA*(11/18/16 code = U Phencyc Scr) 8:24 PM) [facility]2017-02-19 02:24:00 Test Item Value Reference Range Interpretation Comments UDS Note (test code = See Note (11/18/16 8:24 UDS Note) PM) [facility]2017-02-19 02:24:00 Test Item Value Reference Range Interpretation Comments U Propoxyph Scr (test Negative *NA*(11/18/16 code = U Propoxyph Scr) 8:24 PM) [facility]2017-02-19 02:24:00 Test Item Value Reference Range Interpretation Comments U Methadone Scr (test Negative *NA*(11/18/16 code = U Methadone Scr) 8:24 PM) [facility] HospitalIssjqoaBYOYINPUUW9811-62-68 02:24:00 Test Item Value Reference Range Interpretation Comments Monocytes # (test code 0.7 See_Comment [Aut omated message] The = Monocytes #) system which generated this result tra nsmitted reference range : <=0.8. The reference r natasha was not used to int erpret this result as normal/abnormal . [facility] HospitalEdgzsxeGFKZCQUICR9985-79-18 02:24:00 Test Item Value Reference Range Interpretation Comments Basophils # (test code 0.1 See_Comment [Aut omated message] The = Basophils #) system which generated this result tra nsmitted reference range : <=0.2. The reference r natasha was not used to int erpret this result as normal/abnormal . [facility] HospitalGrzlgwsDFTEGFWKNZ5965-78-29 02:24:00 Test Item Value Reference Range Interpretation Comments Eosinophils # (test code 0.1 See_Comment [A utomated message] The = Eosinophils #) system whic h generated this result tra nsmitted reference range : <=0.5. The reference r natasha was not used to int erpret this result as normal/abnormal . [facility] HospitalUuphhjkGWVZXAYAGV0089-81-97 02:24:00 Test Item Value Reference Range Interpretation Comments Segs (test code = Segs) 72.1 45.0-75.0 [facility] HospitalWdzlpdmFLQGDOHNUA8762-14-66 02:24:00 Test Item Value Reference Range Interpretation Comments Lymphocytes (test code = Lymphocytes) 20.2 20.0-40.0 [facility] HospitalIgdfysvMDEGNRKSRF9016-38-51 02:24:00 Test Item Value Reference Range Interpretation Comments Monocytes (test code = Monocytes) 6.1 2.0-12.0 [facility] HospitalSgbhggmNZADRFEHWU4164-98-36 02:24:00 Test Item Value Reference Range Interpretation Comments Segs-Bands # (test code = Segs-Bands #) 8.2 1.5-8.1 [facility] HospitalHqebaqeVPDLDCVUEN3180-23-08 02:24:00 Test Item Value Reference Range Interpretation Comments Eosinophils (test code = 0.9 See_Comment [A utomated message] The Eosinophils) system which ge nerated this result tra nsmitted reference range : <=4.0. The reference r natasha was not used to int erpret this result as normal/abnormal . [facility] HospitalIhgiefbQVCFULSLGN1779-62-68 02:24:00 Test Item Value Reference Range Interpretation Comments Basophils (test code = 0.7 See_Comment [Aut omated message] The Basophils) system which ge nerated this result tra nsmitted reference range : <=1.0. The reference r natasha was not used to int erpret this result as normal/abnormal . [facility] HospitalEyspjltQKQDVPSGPA4746-85-36 02:24:00 Test Item Value Reference Range Interpretation Comments Lymphocytes # (test code = Lymphocytes 2.3 1.0-5.5 #) [facility] HospitalDmigmftXSBFGKMCWX2339-42-52 02:24:00 Test Item Value Reference Range Interpretation Comments RBC Morph (test code = Normal (11/18/16 8:24 RBC Morph) PM) [facility] HospitalYhaywtmWLMLSWSIDE3798-23-71 02:24:00 Test Item Value Reference Range Interpretation Comments Plt Morph (test code = Normal (11/18/16 8:24 Plt Morph) PM) [facility] HospitalQeiaxwvWWMQUPVZON6796-90-32 02:24:00 Test Item Value Reference Range Interpretation Comments Hgb (test code = Hgb) 15.2 14.0-18.0 [facility] HospitalZjbtmlyALVQHYYPJH2475-59-36 02:24:00 Test Item Value Reference Range Interpretation Comments WBC (test code = WBC) 11.3 3.7-10.4 [facility] HospitalGpsjblyVHERAGOPXT1235-20-57 02:24:00 Test Item Value Reference Range Interpretation Comments Hct (test code = Hct) 43.2 42.0-54.0 [facility] HospitalFxsbrhrOMLSIZUAEM4085-80-31 02:24:00 Test Item Value Reference Range Interpretation Comments MCHC (test code = MCHC) 35.1 32.0-36.0 [facility]viewBxnurfiMQLMCMERUV6454-29-81 02:24:00 Test Item Value Reference Range Interpretation Comments RBC (test code = RBC) 4.57 4.70-6.10 [facility]viewHbmbzsyDMYEIKISLS3398-12-29 02:24:00 Test Item Value Reference Range Interpretation Comments MCV (test code = MCV) 94.6 80.0-94.0 [facility]viewNjvknhfRQZBHEZZSP3485-25-36 02:24:00 Test Item Value Reference Range Interpretation Comments RDW (test code = RDW) 12.5 11.5-14.5 [facility]viewJbpylngHXVRFMWLBO9802-04-09 02:24:00 Test Item Value Reference Range Interpretation Comments MCH (test code = MCH) 33.2 pg 27.0-31.0 [facility]viewRpvtigpIHYMSHDJWJ4362-10-84 02:24:00 Test Item Value Reference Range Interpretation Comments MPV (test code = MPV) 6.6 7.4-10.4 [facility]viewBdpezdfDMXVGXYRQF1000-48-23 02:24:00 Test Item Value Reference Range Interpretation Comments Platelet (test code = Platelet) 231 133-450 [facility]viewFtbwrneYAKWGQXBQR8627-12-58 02:24:00 Test Item Value Reference Range Interpretation Comments PT (test code = PT) 13.1 s 12.0-14.7 [facility]viewPsacupsENQEHIKGTH8638-78-60 02:24:00 Test Item Value Reference Range Interpretation Comments INR (test code = INR) 0.97 0.85-1.17 [facility]viewRhribupNZPZMDHJAA7015-00-57 02:24:00 Test Item Value Reference Range Interpretation Comments PTT (test code = PTT) 27.1 s 22.9-35.[address] [facility] HospitalL[facility] JTPSVGZ2313-38-80 02:24:00 Test Item Value Reference Range Interpretation Comments ABO/Rh (test code = ABO/Rh) O NEG [facility] HospitalL[facility] B[facility] LUMBYVT0422-51-66 02:24:00 Test Item Value Reference Range Interpretation Comments Antibody Scrn (test Negative (11/18/16 8:24 code = Antibody Scrn) PM) [facility]viewDR[facility] [id number] 02:24:00 Test Item Value Reference Range Interpretation Comments U Cocaine Scr (test Positive *ABN*(11/18/16 code = U Cocaine Scr) 8:24 PM) [facility] [id number] 02:24:00 Test Item Value Reference Range Interpretation Comments U Benzodia Scr (test Negative *NA*(11/18/16 code = U Benzodia Scr) 8:24 PM) [facility] [id number] 02:24:00 Test Item Value Reference Range Interpretation Comments U Amph Scr (test code Negative *NA*(11/18/16 = U Amph Scr) 8:24 PM) [facility] [id number] 02:24:00 Test Item Value Reference Range Interpretation Comments U Opiate Scr (test Positive *ABN*(11/18/16 code = U Opiate Scr) 8:24 PM) [facility] [id number] 02:24:00 Test Item Value Reference Range Interpretation Comments U Cannab Scr (test Negative *NA*(11/18/16 code = U Cannab Scr) 8:24 PM) [facility] [id number] 02:24:00 Test Item Value Reference Range Interpretation Comments U Ysabel Scr (test code Negative *NA*(11/18/16 = U Ysabel Scr) 8:24 PM) [facility] PWGHFO6823-01-88 02:24:00 Test Item Value Reference Range Interpretation Comments U Phencyc Scr (test Negative *NA*(11/18/16 code = U Phencyc Scr) 8:24 PM) [facility] CFGWVK1191-25-10 02:24:00 Test Item Value Reference Range Interpretation Comments UDS Note (test code = See Note (11/18/16 8:24 UDS Note) PM) [facility] VMSHRX7928-07-58 02:24:00 Test Item Value Reference Range Interpretation Comments U Propoxyph Scr (test Negative *NA*(11/18/16 code = U Propoxyph Scr) 8:24 PM) [facility] PRQBGC9360-16-99 02:24:00 Test Item Value Reference Range Interpretation Comments U Methadone Scr (test Negative *NA*(11/18/16 code = U Methadone Scr) 8:24 PM) [facility] KnymvvmPVSWYCTDLZ5575-86-50 02:24:00 Test Item Value Reference Range Interpretation Comments Monocytes # (test code 0.7 See_Comment [Aut omated message] The = Monocytes #) system which generated this result tra nsmitted reference range : <=0.8. The reference r natasha was not used to int erpret this result as normal/abnormal . [facility] HospitalJmslcydIMWPBBFRCE4114-40-21 02:24:00 Test Item Value Reference Range Interpretation Comments Basophils # (test code 0.1 See_Comment [Aut omated message] The = Basophils #) system which generated this result tra nsmitted reference range : <=0.2. The reference r natasha was not used to int erpret this result as normal/abnormal . [facility] HospitalUtyxaqrDQFVLNQFZR4189-55-28 02:24:00 Test Item Value Reference Range Interpretation Comments Eosinophils # (test code 0.1 See_Comment [A utomated message] The = Eosinophils #) system whic h generated this result tra nsmitted reference range : <=0.5. The reference r natasha was not used to int erpret this result as normal/abnormal . [facility]AbtwnfpURBQKPGSXD4375-94-56 02:24:00 Test Item Value Reference Range Interpretation Comments Segs (test code = Segs) 72.1 45.0-75.0 [facility] HospitalUwjbnygXKWRNVMLKE9837-40-32 02:24:00 Test Item Value Reference Range Interpretation Comments Lymphocytes (test code = Lymphocytes) 20.2 20.0-40.0 [facility] HospitalCfggpcrZFFXTYSBWY4252-02-19 02:24:00 Test Item Value Reference Range Interpretation Comments Monocytes (test code = Monocytes) 6.1 2.0-12.0 [facility] HospitalEqgduseLTYCCBCKFN3897-05-29 02:24:00 Test Item Value Reference Range Interpretation Comments Segs-Bands # (test code = Segs-Bands #) 8.2 1.5-8.1 [facility] HospitalHkkfxqoWCCXZHYAYG8882-85-21 02:24:00 Test Item Value Reference Range Interpretation Comments Eosinophils (test code = 0.9 See_Comment [A utomated message] The Eosinophils) system which ge nerated this result tra nsmitted reference range : <=4.0. The reference r natasha was not used to int erpret this result as normal/abnormal . [facility] HospitalTkpznayLULDTVELYO5828-31-93 02:24:00 Test Item Value Reference Range Interpretation Comments Basophils (test code = 0.7 See_Comment [Aut omated message] The Basophils) system which ge nerated this result tra nsmitted reference range : <=1.0. The reference r natasha was not used to int erpret this result as normal/abnormal . [facility] HospitalRagplivOPCAOIOYPC8343-81-00 02:24:00 Test Item Value Reference Range Interpretation Comments Lymphocytes # (test code = Lymphocytes 2.3 1.0-5.5 #) [facility] HospitalFrvotmyTNXSYZAHXH4292-47-34 02:24:00 Test Item Value Reference Range Interpretation Comments RBC Morph (test code = Normal (11/18/16 8:24 RBC Morph) PM) [facility] HospitalBpfkjkcRXHLRAMMUI3198-02-77 02:24:00 Test Item Value Reference Range Interpretation Comments Plt Morph (test code = Normal (11/18/16 8:24 Plt Morph) PM) [facility] HospitalQjhvxqpIOOBSDAPZQ2025-83-54 02:24:00 Test Item Value Reference Range Interpretation Comments Hgb (test code = Hgb) 15.2 14.0-18.0 [facility] HospitalQoygokpVGNWHWGQQI0285-91-61 02:24:00 Test Item Value Reference Range Interpretation Comments WBC (test code = WBC) 11.3 3.7-10.4 [facility] HospitalAmtmaorUYYDTCUDJZ8918-65-29 02:24:00 Test Item Value Reference Range Interpretation Comments Hct (test code = Hct) 43.2 42.0-54.0 [facility] HospitalLdyhquhSDRFNJEWJL6260-01-01 02:24:00 Test Item Value Reference Range Interpretation Comments MCHC (test code = MCHC) 35.1 32.0-36.0 [facility] HospitalFfwgulfWCNQKVZWBF7445-35-08 02:24:00 Test Item Value Reference Range Interpretation Comments RBC (test code = RBC) 4.57 4.70-6.10 [facility] HospitalJrxriecMCCQGWHLTE0615-49-93 02:24:00 Test Item Value Reference Range Interpretation Comments MCV (test code = MCV) 94.6 80.0-94.0 [facility] HospitalDvhfddxOIBITIMJKA1048-43-43 02:24:00 Test Item Value Reference Range Interpretation Comments RDW (test code = RDW) 12.5 11.5-14.5 [facility] HospitalTbohjuxFKQTRLGMFH3938-01-05 02:24:00 Test Item Value Reference Range Interpretation Comments MCH (test code = MCH) 33.2 pg 27.0-31.0 [facility] YpljjosRPVHYVLGJW8829-18-87 02:24:00 Test Item Value Reference Range Interpretation Comments MPV (test code = MPV) 6.6 7.4-10.4 [facility] ItzsvkuPGKSAAWXJB7776-08-22 02:24:00 Test Item Value Reference Range Interpretation Comments Platelet (test code = Platelet) 231 133-[address] [facility] HospitalWwrajisMNKMKCAJNP6751-00-46 02:24:00 Test Item Value Reference Range Interpretation Comments PT (test code = PT) 13.1 s 12.0-14.7 [facility] KuqvoucXWIFLHONYY5878-72-78 02:24:00 Test Item Value Reference Range Interpretation Comments INR (test code = INR) 0.97 0.85-1.17 [facility] DzhiepkHMELLHPMJI1156-11-69 02:24:00 Test Item Value Reference Range Interpretation Comments PTT (test code = PTT) 27.1 s 22.9-35.8 [employer] [id number] 02:24:00 Test Item Value Reference Range Interpretation Comments ABO/Rh (test code = ABO/Rh) O NEG [facility] [employer] [id number] 02:24:00 Test Item Value Reference Range Interpretation Comments Antibody Scrn (test Negative (11/18/16 8:24 code = Antibody Scrn) PM) [facility] [employer] [id number] 02:24:00 Test Item Value Reference Range Interpretation Comments U Cocaine Scr (test Positive *ABN*(11/18/16 code = U Cocaine Scr) 8:24 PM) [facility] [employer] [id number] 02:24:00 Test Item Value Reference Range Interpretation Comments U Benzodia Scr (test Negative *NA*(11/18/16 code = U Benzodia Scr) 8:24 PM) [employer] [id number] 02:24:00 Test Item Value Reference Range Interpretation Comments U Amph Scr (test code Negative *NA*(11/18/16 = U Amph Scr) 8:24 PM) [employer] [id number] 02:24:00 Test Item Value Reference Range Interpretation Comments U Opiate Scr (test Positive *ABN*(11/18/16 code = U Opiate Scr) 8:24 PM) [facility] [id number] 02:24:00 Test Item Value Reference Range Interpretation Comments U Cannab Scr (test Negative *NA*(11/18/16 code = U Cannab Scr) 8:24 PM) [facility] [id number] 02:24:00 Test Item Value Reference Range Interpretation Comments U Ysabel Scr (test code Negative *NA*(11/18/16 = U Ysabel Scr) 8:24 PM) [facility] [id number] 02:24:00 Test Item Value Reference Range Interpretation Comments U Phencyc Scr (test Negative *NA*(11/18/16 code = U Phencyc Scr) 8:24 PM) [facility] [id number] 02:24:00 Test Item Value Reference Range Interpretation Comments UDS Note (test code = See Note (11/18/16 8:24 UDS Note) PM) [facility] [id number] 02:24:00 Test Item Value Reference Range Interpretation Comments U Propoxyph Scr (test Negative *NA*(11/18/16 code = U Propoxyph Scr) 8:24 PM) [facility] [id number] 02:24:00 Test Item Value Reference Range Interpretation Comments U Methadone Scr (test Negative *NA*(11/18/16 code = U Methadone Scr) 8:24 PM) [facility] HospitalEkladtbEMMMSAIQBG5124-54-72 02:24:00 Test Item Value Reference Range Interpretation Comments Monocytes # (test code 0.7 See_Comment [Aut omated message] The = Monocytes #) system which generated this result tra nsmitted reference range : <=0.8. The reference r natasha was not used to int erpret this result as normal/abnormal . [facility] HospitalKjpkcwfDIOPOSRIVT9231-35-65 02:24:00 Test Item Value Reference Range Interpretation Comments Basophils # (test code 0.1 See_Comment [Aut omated message] The = Basophils #) system which generated this result tra nsmitted reference range : <=0.2. The reference r natasha was not used to int erpret this result as normal/abnormal . [facility] HospitalOchnusoLOZLCEYZMS8965-41-44 02:24:00 Test Item Value Reference Range Interpretation Comments Eosinophils # (test code 0.1 See_Comment [A utomated message] The = Eosinophils #) system whic h generated this result tra nsmitted reference range : <=0.5. The reference r natasha was not used to int erpret this result as normal/abnormal . [facility] HospitalCfugmtvAYTTJDWWKL3038-07-22 02:24:00 Test Item Value Reference Range Interpretation Comments Segs (test code = Segs) 72.1 45.0-75.0 [facility] HospitalYpumwnmIYFTXNYDAH6290-60-40 02:24:00 Test Item Value Reference Range Interpretation Comments Lymphocytes (test code = Lymphocytes) 20.2 20.0-40.0 [facility] HospitalMtcgyktAOJPMLHWMF7534-40-57 02:24:00 Test Item Value Reference Range Interpretation Comments Monocytes (test code = Monocytes) 6.1 2.0-12.0 [facility] HospitalOjlhciuNQYOMVIDKR2270-08-85 02:24:00 Test Item Value Reference Range Interpretation Comments Segs-Bands # (test code = Segs-Bands #) 8.2 1.5-8.1 [facility] HospitalRundarhKKEFSKDAIG6634-31-69 02:24:00 Test Item Value Reference Range Interpretation Comments Eosinophils (test code = 0.9 See_Comment [A utomated message] The Eosinophils) system which ge nerated this result tra nsmitted reference range : <=4.0. The reference r natasha was not used to int erpret this result as normal/abnormal . [facility] HospitalIfklrwgSIVWWSDRXP0923-71-73 02:24:00 Test Item Value Reference Range Interpretation Comments Basophils (test code = 0.7 See_Comment [Aut omated message] The Basophils) system which ge nerated this result tra nsmitted reference range : <=1.0. The reference r natasha was not used to int erpret this result as normal/abnormal . [facility] HospitalDbnhlpsBHQLKWZRQN5773-69-84 02:24:00 Test Item Value Reference Range Interpretation Comments Lymphocytes # (test code = Lymphocytes 2.3 1.0-5.5 #) [facility] HospitalQcyvkygGXXKJPINYJ3177-71-19 02:24:00 Test Item Value Reference Range Interpretation Comments RBC Morph (test code = Normal (11/18/16 8:24 RBC Morph) PM) [facility] HospitalGjihhaoUKHJRPMGQD5989-62-41 02:24:00 Test Item Value Reference Range Interpretation Comments Plt Morph (test code = Normal (11/18/16 8:24 Plt Morph) PM) [facility] HospitalWampeduUNYXNDLEGW7255-74-68 02:24:00 Test Item Value Reference Range Interpretation Comments Hgb (test code = Hgb) 15.2 14.0-18.0 [facility] HospitalVusreyrSDMKSHDBTX2477-99-34 02:24:00 Test Item Value Reference Range Interpretation Comments WBC (test code = WBC) 11.3 3.7-10.4 [facility] HospitalVlzfrrvTOOABKZKCD0567-64-46 02:24:00 Test Item Value Reference Range Interpretation Comments Hct (test code = Hct) 43.2 42.0-54.0 [facility] HospitalDvvxzbvYVBZPQYPSN5986-99-49 02:24:00 Test Item Value Reference Range Interpretation Comments MCHC (test code = MCHC) 35.1 32.0-36.0 [facility] HospitalWkranddDUIBZAQTSS2577-81-42 02:24:00 Test Item Value Reference Range Interpretation Comments RBC (test code = RBC) 4.57 4.70-6.10 [facility] HospitalVhyckhsAWDKFYTCXG9387-65-14 02:24:00 Test Item Value Reference Range Interpretation Comments MCV (test code = MCV) 94.6 80.0-94.0 [facility] HospitalNegzexlCIISACNTKA6734-13-81 02:24:00 Test Item Value Reference Range Interpretation Comments RDW (test code = RDW) 12.5 11.5-14.5 [facility] HospitalKwgmtakYVLCRPFIQG5517-98-24 02:24:00 Test Item Value Reference Range Interpretation Comments MCH (test code = MCH) 33.2 pg 27.0-31.0 [facility] HospitalHdlqzpaJVSICWOBDM8940-27-56 02:24:00 Test Item Value Reference Range Interpretation Comments MPV (test code = MPV) 6.6 7.4-10.4 [facility] HospitalVdicyxlTTWCYUCGIF3197-61-27 02:24:00 Test Item Value Reference Range Interpretation Comments Platelet (test code = Platelet) 231 133-450 [facility] HospitalJntjfavCSIANOCWVD8053-73-83 02:24:00 Test Item Value Reference Range Interpretation Comments PT (test code = PT) 13.1 s 12.0-14.7 [facility] HospitalAichegxMWBCAIZIAK6202-56-16 02:24:00 Test Item Value Reference Range Interpretation Comments INR (test code = INR) 0.97 0.85-1.17 [facility] HospitalMrvgaoeDFZVAYDUYT3591-97-86 02:24:00 Test Item Value Reference Range Interpretation Comments PTT (test code = PTT) 27.1 s 22.9-35.8 [email or web address] [email or web address] [id number] 02:24:00 Test Item Value Reference Range Interpretation Comments ABO/Rh (test code = ABO/Rh) O NEG [facility] ResourcesTextDigger [facility] [id number] 02:24:00 Test Item Value Reference Range Interpretation Comments Antibody Scrn (test Negative (11/18/16 8:24 code = Antibody Scrn) PM) [facility] [id number] 02:24:00 Test Item Value Reference Range Interpretation Comments U Cocaine Scr (test Positive *ABN*(11/18/16 code = U Cocaine Scr) 8:24 PM) [facility]viewTweet[facility] [id number] 02:24:00 Test Item Value Reference Range Interpretation Comments U Benzodia Scr (test Negative *NA*(11/18/16 code = U Benzodia Scr) 8:24 PM) [facility] [id number] 02:24:00 Test Item Value Reference Range Interpretation Comments U Amph Scr (test code Negative *NA*(11/18/16 = U Amph Scr) 8:24 PM) [facility] [id number] 02:24:00 Test Item Value Reference Range Interpretation Comments U Opiate Scr (test Positive *ABN*(11/18/16 code = U Opiate Scr) 8:24 PM) [facility] [id number] 02:24:00 Test Item Value Reference Range Interpretation Comments U Cannab Scr (test Negative *NA*(11/18/16 code = U Cannab Scr) 8:24 PM) [facility] [id number] 02:24:00 Test Item Value Reference Range Interpretation Comments U Ysabel Scr (test code Negative *NA*(11/18/16 = U Ysabel Scr) 8:24 PM) [facility] [id number] 02:24:00 Test Item Value Reference Range Interpretation Comments U Phencyc Scr (test Negative *NA*(11/18/16 code = U Phencyc Scr) 8:24 PM) [facility]Tweet[facility] [id number] 02:24:00 Test Item Value Reference Range Interpretation Comments UDS Note (test code = See Note (11/18/16 8:24 UDS Note) PM) [facility] [id number] 02:24:00 Test Item Value Reference Range Interpretation Comments U Propoxyph Scr (test Negative *NA*(11/18/16 code = U Propoxyph Scr) 8:24 PM) [facility] [id number] 02:24:00 Test Item Value Reference Range Interpretation Comments U Methadone Scr (test Negative *NA*(11/18/16 code = U Methadone Scr) 8:24 PM) [facility]viewVhwpaerEJXGWPSKZS8672-14-56 02:24:00 Test Item Value Reference Range Interpretation Comments Monocytes # (test code 0.7 See_Comment [Aut omated message] The = Monocytes #) system which generated this result tra nsmitted reference range : <=0.8. The reference r natasha was not used to int erpret this result as normal/abnormal . [facility] HospitalAkhgrxhVGKMVXWGMJ4271-20-02 02:24:00 Test Item Value Reference Range Interpretation Comments Basophils # (test code 0.1 See_Comment [Aut omated message] The = Basophils #) system which generated this result tra nsmitted reference range : <=0.2. The reference r natasha was not used to int erpret this result as normal/abnormal . [facility] HospitalCgyhotgQSBOHNFYLG8265-62-03 02:24:00 Test Item Value Reference Range Interpretation Comments Eosinophils # (test code 0.1 See_Comment [A utomated message] The = Eosinophils #) system whic h generated this result tra nsmitted reference range : <=0.5. The reference r natasha was not used to int erpret this result as normal/abnormal . [facility] HospitalWaeeeghFLOMGDURGP2871-90-11 02:24:00 Test Item Value Reference Range Interpretation Comments Segs (test code = Segs) 72.1 45.0-75.0 [facility] HospitalUpnvbdvVYPDZYLGEM5637-18-26 02:24:00 Test Item Value Reference Range Interpretation Comments Lymphocytes (test code = Lymphocytes) 20.2 20.0-40.0 [facility] HospitalNnzqdfkUDUXZREKKS3973-47-27 02:24:00 Test Item Value Reference Range Interpretation Comments Monocytes (test code = Monocytes) 6.1 2.0-12.0 [facility] HospitalWvehkbmZNFUKDVKCT1440-71-62 02:24:00 Test Item Value Reference Range Interpretation Comments Segs-Bands # (test code = Segs-Bands #) 8.2 1.5-8.1 [facility] HospitalZxwrescKVZVVEAIXO2196-80-17 02:24:00 Test Item Value Reference Range Interpretation Comments Eosinophils (test code = 0.9 See_Comment [A utomated message] The Eosinophils) system which ge nerated this result tra nsmitted reference range : <=4.0. The reference r natasha was not used to int erpret this result as normal/abnormal . [facility] HospitalDykprvxMDXUXCZJCK9182-32-04 02:24:00 Test Item Value Reference Range Interpretation Comments Basophils (test code = 0.7 See_Comment [Aut omated message] The Basophils) system which ge nerated this result tra nsmitted reference range : <=1.0. The reference r natasha was not used to int erpret this result as normal/abnormal . [facility] HospitalXesjruxJQMSMFKPXA6083-92-47 02:24:00 Test Item Value Reference Range Interpretation Comments Lymphocytes # (test code = Lymphocytes 2.3 1.0-5.5 #) [facility]2017-02-11 08:16:00 Test Item Value Reference Range Interpretation Comments Lactic Acid Lvl (test code = Lactic 1.5 0.5-2.2 Acid Lvl) [facility]2017-02-11 08:16:00 Test Item Value Reference Range Interpretation Comments Lactic Acid Lvl (test code = Lactic 1.5 0.5-2.2 Acid Lvl) [facility]2017-02-11 08:16:00 Test Item Value Reference Range Interpretation Comments Lactic Acid Lvl (test code = Lactic 1.5 0.5-2.2 Acid Lvl) [facility]2017-02-11 08:16:00 Test Item Value Reference Range Interpretation Comments Lactic Acid Lvl (test code = Lactic 1.5 0.5-2.2 Acid Lvl) [facility]2017-02-11 08:16:00 Test Item Value Reference Range Interpretation Comments Lactic Acid Lvl (test code = Lactic 1.5 0.5-2.2 Acid Lvl) [facility]2017-02-11 08:16:00 Test Item Value Reference Range Interpretation Comments Lactic Acid Lvl (test code = Lactic 1.5 0.5-2.2 Acid Lvl) [facility]2017-02-11 08:16:00 Test Item Value Reference Range Interpretation Comments Lactic Acid Lvl (test code = Lactic 1.5 0.5-2.2 Acid Lvl) [place] [id number] 08:16:00 Test Item Value Reference Range Interpretation Comments Lactic Acid Lvl (test code = Lactic 1.5 0.5-2.2 Acid Lvl) [facility]2017-02-11 03:15:00 Test Item Value Reference Range Interpretation Comments Lactic Acid Lvl (test code = Lactic 2.9 0.5-2.2 Acid Lvl) [place] [id number] 03:15:00 Test Item Value Reference Range Interpretation Comments Lactic Acid Lvl (test code = Lactic 2.9 0.5-2.2 Acid Lvl) [facility]2017-02-11 03:15:00 Test Item Value Reference Range Interpretation Comments Lactic Acid Lvl (test code = Lactic 2.9 0.5-2.2 Acid Lvl) [facility]2017-02-11 03:15:00 Test Item Value Reference Range Interpretation Comments Lactic Acid Lvl (test code = Lactic 2.9 0.5-2.2 Acid Lvl) [facility]2017-02-11 03:15:00 Test Item Value Reference Range Interpretation Comments Lactic Acid Lvl (test code = Lactic 2.9 0.5-2.2 Acid Lvl) [facility]2017-02-11 03:15:00 Test Item Value Reference Range Interpretation Comments Lactic Acid Lvl (test code = Lactic 2.9 0.5-2.2 Acid Lvl) [facility]2017-02-11 03:15:00 Test Item Value Reference Range Interpretation Comments Lactic Acid Lvl (test code = Lactic 2.9 0.5-2.2 Acid Lvl) [facility]2017-02-11 03:15:00 Test Item Value Reference Range Interpretation Comments Lactic Acid Lvl (test code = Lactic 2.9 0.5-2.2 Acid Lvl) [facility]2017-02-10 15:09:00 Test Item Value Reference Range Interpretation Comments Lactic Acid Lvl (test code = Lactic 3.9 0.5-2.2 Acid Lvl) [facility]2017-02-10 15:09:00 Test Item Value Reference Range Interpretation Comments Lactic Acid Lvl (test code = Lactic 3.9 0.5-2.2 Acid Lvl) [facility]2017-02-10 15:09:00 Test Item Value Reference Range Interpretation Comments Lactic Acid Lvl (test code = Lactic 3.9 0.5-2.2 Acid Lvl) [facility]2017-02-10 15:09:00 Test Item Value Reference Range Interpretation Comments Lactic Acid Lvl (test code = Lactic 3.9 0.5-2.2 Acid Lvl) [facility]2017-02-10 15:09:00 Test Item Value Reference Range Interpretation Comments Lactic Acid Lvl (test code = Lactic 3.9 0.5-2.2 Acid Lvl) [facility]2017-02-10 15:09:00 Test Item Value Reference Range Interpretation Comments Lactic Acid Lvl (test code = Lactic 3.9 0.5-2.2 Acid Lvl) [facility]2017-02-10 15:09:00 Test Item Value Reference Range Interpretation Comments Lactic Acid Lvl (test code = Lactic 3.9 0.5-2.2 Acid Lvl) [facility]2017-02-10 15:09:00 Test Item Value Reference Range Interpretation Comments Lactic Acid Lvl (test code = Lactic 3.9 0.5-2.2 Acid Lvl) [facility] HospitalZuzpnvcGFVMNHIRVE7594-64-81 08:26:00 Test Item Value Reference Range Interpretation Comments INR (test code = INR) 1.12 0.85-1.17 [facility] HospitalPkgvwarPZSGROZVHX0731-46-64 08:26:00 Test Item Value Reference Range Interpretation Comments PT (test code = PT) 14.6 s 12.0-14.7 [facility] HospitalWyobpsnMHRCXMCZHC5225-28-89 08:26:00 Test Item Value Reference Range Interpretation Comments INR (test code = INR) 1.12 0.85-1.17 [place] [id number] 08:26:00 Test Item Value Reference Range Interpretation Comments PT (test code = PT) 14.6 s 12.0-14.7 [facility] HospitalCuebvilZGKLUSKOOR0394-06-43 08:26:00 Test Item Value Reference Range Interpretation Comments INR (test code = INR) 1.12 0.85-1.17 [facility] HospitalPqvaucvHGLPPLSBVJ3122-59-09 08:26:00 Test Item Value Reference Range Interpretation Comments PT (test code = PT) 14.6 s 12.0-14.7 [facility] HospitalEcyzhaiFSXAHIVHGB8137-84-49 08:26:00 Test Item Value Reference Range Interpretation Comments INR (test code = INR) 1.12 0.85-1.17 [facility] HospitalPcwchhbZTKLKENRAN6990-73-41 08:26:00 Test Item Value Reference Range Interpretation Comments PT (test code = PT) 14.6 s 12.0-14.7 [facility] HospitalBhqwovzYIQJQZZEEO3309-25-58 08:26:00 Test Item Value Reference Range Interpretation Comments INR (test code = INR) 1.12 0.85-1.17 [facility] HospitalFxelmdlGZWGYDSXFA3840-64-93 08:26:00 Test Item Value Reference Range Interpretation Comments PT (test code = PT) 14.6 s 12.0-14.7 [facility] HospitalNooxzelMSTHVKUUTG8818-35-02 08:26:00 Test Item Value Reference Range Interpretation Comments INR (test code = INR) 1.12 0.85-1.17 [facility] HospitalPbxoqqhTLONWVJFHX9835-57-66 08:26:00 Test Item Value Reference Range Interpretation Comments PT (test code = PT) 14.6 s 12.0-14.7 [facility] HospitalJovgmbfHIFIEIXSOO0814-90-04 08:26:00 Test Item Value Reference Range Interpretation Comments INR (test code = INR) 1.12 0.85-1.17 [facility] HospitalHsraagnLPEHWSGFZO9711-08-52 08:26:00 Test Item Value Reference Range Interpretation Comments PT (test code = PT) 14.6 s 12.0-14.7 [facility] HospitalIbojfwpCHDSVCKQKE4688-81-90 08:26:00 Test Item Value Reference Range Interpretation Comments INR (test code = INR) 1.12 0.85-1.17 [facility] HospitalDdcvukcAVPJPCWHTL5091-79-61 08:26:00 Test Item Value Reference Range Interpretation Comments PT (test code = PT) 14.6 s 12.0-14.7 [facility]2017-02-10 07:15:02 Test Item Value Reference Range Interpretation Comments UA RBC (test code = 0-2 /HPF See_Comment [Automa sharri message] The UA RBC) system which ge nerated this result tra nsmitted reference range : <=2. The reference range was not used to interpr et this result as ahmet l/abnormal. [facility] AND [id number] 07:15:02 Test Item Value Reference Range Interpretation Comments UA WBC (test code = UA None Seen (11/10/16 1:15 WBC) AM) [facility] AND [id number] 07:15:02 Test Item Value Reference Range Interpretation Comments UA Sq Epi (test code = None Seen (11/10/16 1:15 UA Sq Epi) AM) [facility] AND [id number] 07:15:02 Test Item Value Reference Range Interpretation Comments UA Bacteria (test code = None Seen (11/10/16 UA Bacteria) 1:15 AM) [facility] AND [id number] 07:15:02 Test Item Value Reference Range Interpretation Comments UA Nitrite (test code Negative (11/10/16 1:15 = UA Nitrite) AM) [facility] [facility] [id number] 07:15:02 Test Item Value Reference Range Interpretation Comments UA Leuk Est (test Negative (11/10/16 1:15 code = UA Leuk Est) AM) [facility] AND [id number] 07:15:02 Test Item Value Reference Range Interpretation Comments UA Color (test code = Yellow *NA*(11/10/16 UA Color) 1:15 AM) [facility] AND [id number] 07:15:02 Test Item Value Reference Range Interpretation Comments UA pH (test code = UA pH) 5.5 1 5.0-8.0 [facility] AND [id number] 07:15:02 Test Item Value Reference Range Interpretation Comments UA Protein (test code Negative (11/10/16 1:15 = UA Protein) AM) [facility] AND [id number] 07:15:02 Test Item Value Reference Range Interpretation Comments UA Glucose (test code Negative (11/10/16 1:15 = UA Glucose) AM) [facility] AND [id number] 07:15:02 Test Item Value Reference Range Interpretation Comments UA Ketones (test code = UA Ketones) 15 mg/dL [facility] [id number] 07:15:02 Test Item Value Reference Range Interpretation Comments UA Bili (test code = Negative *NA*(11/10/16 UA Bili) 1:15 AM) [facility] [id number] 07:15:02 Test Item Value Reference Range Interpretation Comments UA Blood (test code = Negative (11/10/16 1:15 UA Blood) AM) [facility] AND [id number] 07:15:02 Test Item Value Reference Range Interpretation Comments UA Urobilinogen (test code = UA 0.2 0.1-1.0 Urobilinogen) [facility] AND [id number] 07:15:02 Test Item Value Reference Range Interpretation Comments UA Turbidity (test code = Clear (11/10/16 1:15 UA Turbidity) AM) [facility] AND [id number] 07:15:02 Test Item Value Reference Range Interpretation Comments UA Spec Grav (test code = UA Spec 1.047 1 Grav) [facility] AND [id number] 07:15:02 Test Item Value Reference Range Interpretation Comments UA RBC (test code = 0-2 /HPF See_Comment [Automa sharri message] The UA RBC) system which ge nerated this result tra nsmitted reference range : <=2. The reference range was not used to interpr et this result as ahmet l/abnormal. [facility] AND [id number] 07:15:02 Test Item Value Reference Range Interpretation Comments UA WBC (test code = UA None Seen (11/10/16 1:15 WBC) AM) [facility] AND [id number] 07:15:02 Test Item Value Reference Range Interpretation Comments UA Sq Epi (test code = None Seen (11/10/16 1:15 UA Sq Epi) AM) [facility] AND [id number] 07:15:02 Test Item Value Reference Range Interpretation Comments UA Bacteria (test code = None Seen (11/10/16 UA Bacteria) 1:15 AM) [facility] [id number] 07:15:02 Test Item Value Reference Range Interpretation Comments UA Nitrite (test code Negative (11/10/16 1:15 = UA Nitrite) AM) [facility] AND [id number] 07:15:02 Test Item Value Reference Range Interpretation Comments UA Leuk Est (test Negative (11/10/16 1:15 code = UA Leuk Est) AM) [facility] AND [id number] 07:15:02 Test Item Value Reference Range Interpretation Comments UA Color (test code = Yellow *NA*(11/10/16 UA Color) 1:15 AM) [facility] AND [id number] 07:15:02 Test Item Value Reference Range Interpretation Comments UA pH (test code = UA pH) 5.5 1 5.0-8.0 [facility] AND [id number] 07:15:02 Test Item Value Reference Range Interpretation Comments UA Protein (test code Negative (11/10/16 1:15 = UA Protein) AM) [facility] AND [id number] 07:15:02 Test Item Value Reference Range Interpretation Comments UA Glucose (test code Negative (11/10/16 1:15 = UA Glucose) AM) [facility] AND [id number] 07:15:02 Test Item Value Reference Range Interpretation Comments UA Ketones (test code = UA Ketones) 15 mg/dL [facility] AND [id number] 07:15:02 Test Item Value Reference Range Interpretation Comments UA Bili (test code = Negative *NA*(11/10/16 UA Bili) 1:15 AM) [facility] AND [id number] 07:15:02 Test Item Value Reference Range Interpretation Comments UA Blood (test code = Negative (11/10/16 1:15 UA Blood) AM) [facility] AND [id number] 07:15:02 Test Item Value Reference Range Interpretation Comments UA Urobilinogen (test code = UA 0.2 0.1-1.0 Urobilinogen) [facility] AND [id number] 07:15:02 Test Item Value Reference Range Interpretation Comments UA Turbidity (test code = Clear (11/10/16 1:15 UA Turbidity) AM) [facility] AND [id number] 07:15:02 Test Item Value Reference Range Interpretation Comments UA Spec Grav (test code = UA Spec 1.047 1 Grav) [facility] AND [id number] 07:15:02 Test Item Value Reference Range Interpretation Comments UA RBC (test code = 0-2 /HPF See_Comment [Automa sharri message] The UA RBC) system which ge nerated this result tra nsmitted reference range : <=2. The reference range was not used to interpr et this result as ahmet l/abnormal. [facility] AND [id number] 07:15:02 Test Item Value Reference Range Interpretation Comments UA WBC (test code = UA None Seen (11/10/16 1:15 WBC) AM) [facility] AND [id number] 07:15:02 Test Item Value Reference Range Interpretation Comments UA Sq Epi (test code = None Seen (11/10/16 1:15 UA Sq Epi) AM) [facility] AND [id number] 07:15:02 Test Item Value Reference Range Interpretation Comments UA Bacteria (test code = None Seen (11/10/16 UA Bacteria) 1:15 AM) [facility] AND [id number] 07:15:02 Test Item Value Reference Range Interpretation Comments UA Nitrite (test code Negative (11/10/16 1:15 = UA Nitrite) AM) [facility] AND [id number] 07:15:02 Test Item Value Reference Range Interpretation Comments UA Leuk Est (test Negative (11/10/16 1:15 code = UA Leuk Est) AM) [facility] AND [id number] 07:15:02 Test Item Value Reference Range Interpretation Comments UA Color (test code = Yellow *NA*(11/10/16 UA Color) 1:15 AM) [facility] AND [id number] 07:15:02 Test Item Value Reference Range Interpretation Comments UA pH (test code = UA pH) 5.5 1 5.0-8.0 [facility] AND [id number] 07:15:02 Test Item Value Reference Range Interpretation Comments UA Protein (test code Negative (11/10/16 1:15 = UA Protein) AM) [facility] AND [id number] 07:15:02 Test Item Value Reference Range Interpretation Comments UA Glucose (test code Negative (11/10/16 1:15 = UA Glucose) AM) [facility] AND [id number] 07:15:02 Test Item Value Reference Range Interpretation Comments UA Ketones (test code = UA Ketones) 15 mg/dL [facility] AND [id number] 07:15:02 Test Item Value Reference Range Interpretation Comments UA Bili (test code = Negative *NA*(11/10/16 UA Bili) 1:15 AM) [facility] AND [id number] 07:15:02 Test Item Value Reference Range Interpretation Comments UA Blood (test code = Negative (11/10/16 1:15 UA Blood) AM) [facility] AND [id number] 07:15:02 Test Item Value Reference Range Interpretation Comments UA Urobilinogen (test code = UA 0.2 0.1-1.0 Urobilinogen) [facility] AND [id number] 07:15:02 Test Item Value Reference Range Interpretation Comments UA Turbidity (test code = Clear (11/10/16 1:15 UA Turbidity) AM) [facility] AND [id number] 07:15:02 Test Item Value Reference Range Interpretation Comments UA Spec Grav (test code = UA Spec 1.047 1 Grav) [facility] AND [id number] 07:15:02 Test Item Value Reference Range Interpretation Comments UA RBC (test code = 0-2 /HPF See_Comment [Automa sharri message] The UA RBC) system which ge nerated this result tra nsmitted reference range : <=2. The reference range was not used to interpr et this result as ahmet l/abnormal. [facility] AND [id number] 07:15:02 Test Item Value Reference Range Interpretation Comments UA WBC (test code = UA None Seen (11/10/16 1:15 WBC) AM) [facility] AND [id number] 07:15:02 Test Item Value Reference Range Interpretation Comments UA Sq Epi (test code = None Seen (11/10/16 1:15 UA Sq Epi) AM) [facility] AND [id number] 07:15:02 Test Item Value Reference Range Interpretation Comments UA Bacteria (test code = None Seen (11/10/16 UA Bacteria) 1:15 AM) [facility] AND [id number] 07:15:02 Test Item Value Reference Range Interpretation Comments UA Nitrite (test code Negative (11/10/16 1:15 = UA Nitrite) AM) [facility] AND [id number] 07:15:02 Test Item Value Reference Range Interpretation Comments UA Leuk Est (test Negative (11/10/16 1:15 code = UA Leuk Est) AM) [facility] AND [id number] 07:15:02 Test Item Value Reference Range Interpretation Comments UA Color (test code = Yellow *NA*(11/10/16 UA Color) 1:15 AM) [facility] AND [id number] 07:15:02 Test Item Value Reference Range Interpretation Comments UA pH (test code = UA pH) 5.5 1 5.0-8.0 [facility] AND [id number] 07:15:02 Test Item Value Reference Range Interpretation Comments UA Protein (test code Negative (11/10/16 1:15 = UA Protein) AM) [facility] AND [id number] 07:15:02 Test Item Value Reference Range Interpretation Comments UA Glucose (test code Negative (11/10/16 1:15 = UA Glucose) AM) [facility] AND [id number] 07:15:02 Test Item Value Reference Range Interpretation Comments UA Ketones (test code = UA Ketones) 15 mg/dL [facility] AND [id number] 07:15:02 Test Item Value Reference Range Interpretation Comments UA Bili (test code = Negative *NA*(11/10/16 UA Bili) 1:15 AM) [facility] AND [id number] 07:15:02 Test Item Value Reference Range Interpretation Comments UA Blood (test code = Negative (11/10/16 1:15 UA Blood) AM) [facility] AND [id number] 07:15:02 Test Item Value Reference Range Interpretation Comments UA Urobilinogen (test code = UA 0.2 0.1-1.0 Urobilinogen) [facility] AND [id number] 07:15:02 Test Item Value Reference Range Interpretation Comments UA Turbidity (test code = Clear (11/10/16 1:15 UA Turbidity) AM) [facility] AND [id number] 07:15:02 Test Item Value Reference Range Interpretation Comments UA Spec Grav (test code = UA Spec 1.047 1 Grav) [facility] AND [id number] 07:15:02 Test Item Value Reference Range Interpretation Comments UA RBC (test code = 0-2 /HPF See_Comment [Automa sharri message] The UA RBC) system which ge nerated this result tra nsmitted reference range : <=2. The reference range was not used to interpr et this result as ahmet l/abnormal. [facility] AND [id number] 07:15:02 Test Item Value Reference Range Interpretation Comments UA WBC (test code = UA None Seen (11/10/16 1:15 WBC) AM) [facility] AND [id number] 07:15:02 Test Item Value Reference Range Interpretation Comments UA Sq Epi (test code = None Seen (11/10/16 1:15 UA Sq Epi) AM) [facility] AND [id number] 07:15:02 Test Item Value Reference Range Interpretation Comments UA Bacteria (test code = None Seen (11/10/16 UA Bacteria) 1:15 AM) [facility] AND [id number] 07:15:02 Test Item Value Reference Range Interpretation Comments UA Nitrite (test code Negative (11/10/16 1:15 = UA Nitrite) AM) [facility] AND [id number] 07:15:02 Test Item Value Reference Range Interpretation Comments UA Leuk Est (test Negative (11/10/16 1:15 code = UA Leuk Est) AM) [facility] AND [id number] 07:15:02 Test Item Value Reference Range Interpretation Comments UA Color (test code = Yellow *NA*(11/10/16 UA Color) 1:15 AM) [facility] AND [id number] 07:15:02 Test Item Value Reference Range Interpretation Comments UA pH (test code = UA pH) 5.5 1 5.0-8.0 [facility] AND [id number] 07:15:02 Test Item Value Reference Range Interpretation Comments UA Protein (test code Negative (11/10/16 1:15 = UA Protein) AM) [facility] AND [id number] 07:15:02 Test Item Value Reference Range Interpretation Comments UA Glucose (test code Negative (11/10/16 1:15 = UA Glucose) AM) [facility] AND [id number] 07:15:02 Test Item Value Reference Range Interpretation Comments UA Ketones (test code = UA Ketones) 15 mg/dL [facility] AND [id number] 07:15:02 Test Item Value Reference Range Interpretation Comments UA Bili (test code = Negative *NA*(11/10/16 UA Bili) 1:15 AM) [facility] AND [id number] 07:15:02 Test Item Value Reference Range Interpretation Comments UA Blood (test code = Negative (11/10/16 1:15 UA Blood) AM) [facility] AND [id number] 07:15:02 Test Item Value Reference Range Interpretation Comments UA Urobilinogen (test code = UA 0.2 0.1-1.0 Urobilinogen) [facility] AND [id number] 07:15:02 Test Item Value Reference Range Interpretation Comments UA Turbidity (test code = Clear (11/10/16 1:15 UA Turbidity) AM) [facility] AND [id number] 07:15:02 Test Item Value Reference Range Interpretation Comments UA Spec Grav (test code = UA Spec 1.047 1 Grav) [facility] AND [id number] 07:15:02 Test Item Value Reference Range Interpretation Comments UA RBC (test code = 0-2 /HPF See_Comment [Automa sharri message] The UA RBC) system which ge nerated this result tra nsmitted reference range : <=2. The reference range was not used to interpr et this result as ahmet l/abnormal. [facility] AND [id number] 07:15:02 Test Item Value Reference Range Interpretation Comments UA WBC (test code = UA None Seen (11/10/16 1:15 WBC) AM) [facility] AND [id number] 07:15:02 Test Item Value Reference Range Interpretation Comments UA Sq Epi (test code = None Seen (11/10/16 1:15 UA Sq Epi) AM) [facility] AND [id number] 07:15:02 Test Item Value Reference Range Interpretation Comments UA Bacteria (test code = None Seen (11/10/16 UA Bacteria) 1:15 AM) [facility] AND [id number] 07:15:02 Test Item Value Reference Range Interpretation Comments UA Nitrite (test code Negative (11/10/16 1:15 = UA Nitrite) AM) [facility] AND [id number] 07:15:02 Test Item Value Reference Range Interpretation Comments UA Leuk Est (test Negative (11/10/16 1:15 code = UA Leuk Est) AM) [facility] AND [id number] 07:15:02 Test Item Value Reference Range Interpretation Comments UA Color (test code = Yellow *NA*(11/10/16 UA Color) 1:15 AM) [facility] AND [id number] 07:15:02 Test Item Value Reference Range Interpretation Comments UA pH (test code = UA pH) 5.5 1 5.0-8.0 [facility] AND [id number] 07:15:02 Test Item Value Reference Range Interpretation Comments UA Protein (test code Negative (11/10/16 1:15 = UA Protein) AM) [facility] AND [id number] 07:15:02 Test Item Value Reference Range Interpretation Comments UA Glucose (test code Negative (11/10/16 1:15 = UA Glucose) AM) [facility] AND [id number] 07:15:02 Test Item Value Reference Range Interpretation Comments UA Ketones (test code = UA Ketones) 15 mg/dL [facility] AND [id number] 07:15:02 Test Item Value Reference Range Interpretation Comments UA Bili (test code = Negative *NA*(11/10/16 UA Bili) 1:15 AM) [facility] AND [id number] 07:15:02 Test Item Value Reference Range Interpretation Comments UA Blood (test code = Negative (11/10/16 1:15 UA Blood) AM) [facility] AND [id number] 07:15:02 Test Item Value Reference Range Interpretation Comments UA Urobilinogen (test code = UA 0.2 0.1-1.0 Urobilinogen) [facility] AND [id number] 07:15:02 Test Item Value Reference Range Interpretation Comments UA Turbidity (test code = Clear (11/10/16 1:15 UA Turbidity) AM) [facility] [id number] 07:15:02 Test Item Value Reference Range Interpretation Comments UA Spec Grav (test code = UA Spec 1.047 1 Grav) [facility] AND [id number] 07:15:02 Test Item Value Reference Range Interpretation Comments UA RBC (test code = 0-2 /HPF See_Comment [Automa sharri message] The UA RBC) system which ge nerated this result tra nsmitted reference range : <=2. The reference range was not used to interpr et this result as ahmet l/abnormal. [facility] AND [id number] 07:15:02 Test Item Value Reference Range Interpretation Comments UA WBC (test code = UA None Seen (11/10/16 1:15 WBC) AM) [facility] AND [id number] 07:15:02 Test Item Value Reference Range Interpretation Comments UA Sq Epi (test code = None Seen (11/10/16 1:15 UA Sq Epi) AM) [facility] AND [id number] 07:15:02 Test Item Value Reference Range Interpretation Comments UA Bacteria (test code = None Seen (11/10/16 UA Bacteria) 1:15 AM) [facility] AND [id number] 07:15:02 Test Item Value Reference Range Interpretation Comments UA Nitrite (test code Negative (11/10/16 1:15 = UA Nitrite) AM) [facility] AND [id number] 07:15:02 Test Item Value Reference Range Interpretation Comments UA Leuk Est (test Negative (11/10/16 1:15 code = UA Leuk Est) AM) [facility] AND [id number] 07:15:02 Test Item Value Reference Range Interpretation Comments UA Color (test code = Yellow *NA*(11/10/16 UA Color) 1:15 AM) [facility] AND [id number] 07:15:02 Test Item Value Reference Range Interpretation Comments UA pH (test code = UA pH) 5.5 1 5.0-8.0 [facility] AND [id number] 07:15:02 Test Item Value Reference Range Interpretation Comments UA Protein (test code Negative (11/10/16 1:15 = UA Protein) AM) [facility] AND [id number] 07:15:02 Test Item Value Reference Range Interpretation Comments UA Glucose (test code Negative (11/10/16 1:15 = UA Glucose) AM) [facility] AND [id number] 07:15:02 Test Item Value Reference Range Interpretation Comments UA Ketones (test code = UA Ketones) 15 mg/dL [facility] AND [id number] 07:15:02 Test Item Value Reference Range Interpretation Comments UA Bili (test code = Negative *NA*(11/10/16 UA Bili) 1:15 AM) [facility] AND [id number] 07:15:02 Test Item Value Reference Range Interpretation Comments UA Blood (test code = Negative (11/10/16 1:15 UA Blood) AM) [facility] AND [id number] 07:15:02 Test Item Value Reference Range Interpretation Comments UA Urobilinogen (test code = UA 0.2 0.1-1.0 Urobilinogen) [facility] AND [id number] 07:15:02 Test Item Value Reference Range Interpretation Comments UA Turbidity (test code = Clear (11/10/16 1:15 UA Turbidity) AM) [facility] AND [id number] 07:15:02 Test Item Value Reference Range Interpretation Comments UA Spec Grav (test code = UA Spec 1.047 1 Grav) [facility] AND [id number] 07:15:02 Test Item Value Reference Range Interpretation Comments UA RBC (test code = 0-2 /HPF See_Comment [Automa sharri message] The UA RBC) system which ge nerated this result tra nsmitted reference range : <=2. The reference range was not used to interpr et this result as ahmet l/abnormal. [facility] AND [id number] 07:15:02 Test Item Value Reference Range Interpretation Comments UA WBC (test code = UA None Seen (11/10/16 1:15 WBC) AM) [facility] AND [id number] 07:15:02 Test Item Value Reference Range Interpretation Comments UA Sq Epi (test code = None Seen (11/10/16 1:15 UA Sq Epi) AM) [facility] AND [id number] 07:15:02 Test Item Value Reference Range Interpretation Comments UA Bacteria (test code = None Seen (11/10/16 UA Bacteria) 1:15 AM) [facility] AND [id number] 07:15:02 Test Item Value Reference Range Interpretation Comments UA Nitrite (test code Negative (11/10/16 1:15 = UA Nitrite) AM) [facility] AND [id number] 07:15:02 Test Item Value Reference Range Interpretation Comments UA Leuk Est (test Negative (11/10/16 1:15 code = UA Leuk Est) AM) [facility] AND [id number] 07:15:02 Test Item Value Reference Range Interpretation Comments UA Color (test code = Yellow *NA*(11/10/16 UA Color) 1:15 AM) [facility] AND [id number] 07:15:02 Test Item Value Reference Range Interpretation Comments UA pH (test code = UA pH) 5.5 1 5.0-8.0 [facility] AND [id number] 07:15:02 Test Item Value Reference Range Interpretation Comments UA Protein (test code Negative (11/10/16 1:15 = UA Protein) AM) [facility] AND [id number] 07:15:02 Test Item Value Reference Range Interpretation Comments UA Glucose (test code Negative (11/10/16 1:15 = UA Glucose) AM) [facility] AND [id number] 07:15:02 Test Item Value Reference Range Interpretation Comments UA Ketones (test code = UA Ketones) 15 mg/dL [facility] AND [id number] 07:15:02 Test Item Value Reference Range Interpretation Comments UA Bili (test code = Negative *NA*(11/10/16 UA Bili) 1:15 AM) [facility] AND [id number] 07:15:02 Test Item Value Reference Range Interpretation Comments UA Blood (test code = Negative (11/10/16 1:15 UA Blood) AM) [facility] AND [id number] 07:15:02 Test Item Value Reference Range Interpretation Comments UA Urobilinogen (test code = UA 0.2 0.1-1.0 Urobilinogen) [facility] [id number] 07:15:02 Test Item Value Reference Range Interpretation Comments UA Turbidity (test code = Clear (11/10/16 1:15 UA Turbidity) AM) [facility] [id number] 07:15:02 Test Item Value Reference Range Interpretation Comments UA Spec Grav (test code = UA Spec 1.047 1 Grav) [facility] [id number] 07:15:00 Test Item Value Reference Range Interpretation Comments UDS Note (test code = See Note (11/10/16 1:15 UDS Note) AM) [facility] [id number] 07:15:00 Test Item Value Reference Range Interpretation Comments U Opiate Scr (test Positive *ABN*(11/10/16 code = U Opiate Scr) 1:15 AM) [facility] [id number] 07:15:00 Test Item Value Reference Range Interpretation Comments U Phencyc Scr (test Negative *NA*(11/10/16 code = U Phencyc Scr) 1:15 AM) [facility] [id number] 07:15:00 Test Item Value Reference Range Interpretation Comments U Cannab Scr (test Negative *NA*(11/10/16 code = U Cannab Scr) 1:15 AM) [facility] [id number] 07:15:00 Test Item Value Reference Range Interpretation Comments U Cocaine Scr (test Positive *ABN*(11/10/16 code = U Cocaine Scr) 1:15 AM) [facility] [id number] 07:15:00 Test Item Value Reference Range Interpretation Comments U Ysabel Scr (test code Negative *NA*(11/10/16 = U Ysabel Scr) 1:15 AM) [facility] [id number] 07:15:00 Test Item Value Reference Range Interpretation Comments U Benzodia Scr (test Negative *NA*(11/10/16 code = U Benzodia Scr) 1:15 AM) [facility] [id number] 07:15:00 Test Item Value Reference Range Interpretation Comments U Amph Scr (test code Negative *NA*(11/10/16 = U Amph Scr) 1:15 AM) [facility] [id number] 07:15:00 Test Item Value Reference Range Interpretation Comments UDS Note (test code = See Note (11/10/16 1:15 UDS Note) AM) [facility] [facility] [id number] 07:15:00 Test Item Value Reference Range Interpretation Comments U Opiate Scr (test Positive *ABN*(11/10/16 code = U Opiate Scr) 1:15 AM) [facility] [id number] 07:15:00 Test Item Value Reference Range Interpretation Comments U Phencyc Scr (test Negative *NA*(11/10/16 code = U Phencyc Scr) 1:15 AM) [facility] [id number] 07:15:00 Test Item Value Reference Range Interpretation Comments U Cannab Scr (test Negative *NA*(11/10/16 code = U Cannab Scr) 1:15 AM) [facility] [id number] 07:15:00 Test Item Value Reference Range Interpretation Comments U Cocaine Scr (test Positive *ABN*(11/10/16 code = U Cocaine Scr) 1:15 AM) [facility] [id number] 07:15:00 Test Item Value Reference Range Interpretation Comments U Ysabel Scr (test code Negative *NA*(11/10/16 = U Ysabel Scr) 1:15 AM) [facility] [id number] 07:15:00 Test Item Value Reference Range Interpretation Comments U Benzodia Scr (test Negative *NA*(11/10/16 code = U Benzodia Scr) 1:15 AM) [facility] [id number] 07:15:00 Test Item Value Reference Range Interpretation Comments U Amph Scr (test code Negative *NA*(11/10/16 = U Amph Scr) 1:15 AM) [facility] [id number] 07:15:00 Test Item Value Reference Range Interpretation Comments UDS Note (test code = See Note (11/10/16 1:15 UDS Note) AM) [facility] [id number] 07:15:00 Test Item Value Reference Range Interpretation Comments U Opiate Scr (test Positive *ABN*(11/10/16 code = U Opiate Scr) 1:15 AM) [facility] [id number] 07:15:00 Test Item Value Reference Range Interpretation Comments U Phencyc Scr (test Negative *NA*(11/10/16 code = U Phencyc Scr) 1:15 AM) [facility] [id number] 07:15:00 Test Item Value Reference Range Interpretation Comments U Cannab Scr (test Negative *NA*(11/10/16 code = U Cannab Scr) 1:15 AM) [facility] [id number] 07:15:00 Test Item Value Reference Range Interpretation Comments U Cocaine Scr (test Positive *ABN*(11/10/16 code = U Cocaine Scr) 1:15 AM) [facility] [id number] 07:15:00 Test Item Value Reference Range Interpretation Comments U Ysabel Scr (test code Negative *NA*(11/10/16 = U Ysabel Scr) 1:15 AM) [facility] [id number] 07:15:00 Test Item Value Reference Range Interpretation Comments U Benzodia Scr (test Negative *NA*(11/10/16 code = U Benzodia Scr) 1:15 AM) [facility] [id number] 07:15:00 Test Item Value Reference Range Interpretation Comments U Amph Scr (test code Negative *NA*(11/10/16 = U Amph Scr) 1:15 AM) [facility] [id number] 07:15:00 Test Item Value Reference Range Interpretation Comments UDS Note (test code = See Note (11/10/16 1:15 UDS Note) AM) [facility] [id number] 07:15:00 Test Item Value Reference Range Interpretation Comments U Opiate Scr (test Positive *ABN*(11/10/16 code = U Opiate Scr) 1:15 AM) [facility] [id number] 07:15:00 Test Item Value Reference Range Interpretation Comments U Phencyc Scr (test Negative *NA*(11/10/16 code = U Phencyc Scr) 1:15 AM) [facility] [id number] 07:15:00 Test Item Value Reference Range Interpretation Comments U Cannab Scr (test Negative *NA*(11/10/16 code = U Cannab Scr) 1:15 AM) [facility] [id number] 07:15:00 Test Item Value Reference Range Interpretation Comments U Cocaine Scr (test Positive *ABN*(11/10/16 code = U Cocaine Scr) 1:15 AM) [facility] [id number] 07:15:00 Test Item Value Reference Range Interpretation Comments U Ysabel Scr (test code Negative *NA*(11/10/16 = U Ysabel Scr) 1:15 AM) [facility] [id number] 07:15:00 Test Item Value Reference Range Interpretation Comments U Benzodia Scr (test Negative *NA*(11/10/16 code = U Benzodia Scr) 1:15 AM) [facility] [id number] 07:15:00 Test Item Value Reference Range Interpretation Comments U Amph Scr (test code Negative *NA*(11/10/16 = U Amph Scr) 1:15 AM) [facility] [id number] 07:15:00 Test Item Value Reference Range Interpretation Comments UDS Note (test code = See Note (11/10/16 1:15 UDS Note) AM) [facility] [id number] 07:15:00 Test Item Value Reference Range Interpretation Comments U Opiate Scr (test Positive *ABN*(11/10/16 code = U Opiate Scr) 1:15 AM) [facility] [id number] 07:15:00 Test Item Value Reference Range Interpretation Comments U Phencyc Scr (test Negative *NA*(11/10/16 code = U Phencyc Scr) 1:15 AM) [facility] [id number] 07:15:00 Test Item Value Reference Range Interpretation Comments U Cannab Scr (test Negative *NA*(11/10/16 code = U Cannab Scr) 1:15 AM) [facility] [id number] 07:15:00 Test Item Value Reference Range Interpretation Comments U Cocaine Scr (test Positive *ABN*(11/10/16 code = U Cocaine Scr) 1:15 AM) [facility] [id number] 07:15:00 Test Item Value Reference Range Interpretation Comments U Ysabel Scr (test code Negative *NA*(11/10/16 = U Ysabel Scr) 1:15 AM) [facility] [id number] 07:15:00 Test Item Value Reference Range Interpretation Comments U Benzodia Scr (test Negative *NA*(11/10/16 code = U Benzodia Scr) 1:15 AM) [facility] [id number] 07:15:00 Test Item Value Reference Range Interpretation Comments U Amph Scr (test code Negative *NA*(11/10/16 = U Amph Scr) 1:15 AM) [facility] [id number] 07:15:00 Test Item Value Reference Range Interpretation Comments UDS Note (test code = See Note (11/10/16 1:15 UDS Note) AM) [facility] [id number] 07:15:00 Test Item Value Reference Range Interpretation Comments U Opiate Scr (test Positive *ABN*(11/10/16 code = U Opiate Scr) 1:15 AM) [facility] [id number] 07:15:00 Test Item Value Reference Range Interpretation Comments U Phencyc Scr (test Negative *NA*(11/10/16 code = U Phencyc Scr) 1:15 AM) [facility] [id number] 07:15:00 Test Item Value Reference Range Interpretation Comments U Cannab Scr (test Negative *NA*(11/10/16 code = U Cannab Scr) 1:15 AM) [facility] [id number] 07:15:00 Test Item Value Reference Range Interpretation Comments U Cocaine Scr (test Positive *ABN*(11/10/16 code = U Cocaine Scr) 1:15 AM) [facility] [id number] 07:15:00 Test Item Value Reference Range Interpretation Comments U Ysabel Scr (test code Negative *NA*(11/10/16 = U Ysabel Scr) 1:15 AM) [facility] [id number] 07:15:00 Test Item Value Reference Range Interpretation Comments U Benzodia Scr (test Negative *NA*(11/10/16 code = U Benzodia Scr) 1:15 AM) [facility] [id number] 07:15:00 Test Item Value Reference Range Interpretation Comments U Amph Scr (test code Negative *NA*(11/10/16 = U Amph Scr) 1:15 AM) [facility] [id number] 07:15:00 Test Item Value Reference Range Interpretation Comments UDS Note (test code = See Note (11/10/16 1:15 UDS Note) AM) [facility] [id number] 07:15:00 Test Item Value Reference Range Interpretation Comments U Opiate Scr (test Positive *ABN*(11/10/16 code = U Opiate Scr) 1:15 AM) [facility] [id number] 07:15:00 Test Item Value Reference Range Interpretation Comments U Phencyc Scr (test Negative *NA*(11/10/16 code = U Phencyc Scr) 1:15 AM) [facility] [id number] 07:15:00 Test Item Value Reference Range Interpretation Comments U Cannab Scr (test Negative *NA*(11/10/16 code = U Cannab Scr) 1:15 AM) [facility] [id number] 07:15:00 Test Item Value Reference Range Interpretation Comments U Cocaine Scr (test Positive *ABN*(11/10/16 code = U Cocaine Scr) 1:15 AM) [facility] [id number] 07:15:00 Test Item Value Reference Range Interpretation Comments U Ysabel Scr (test code Negative *NA*(11/10/16 = U Ysabel Scr) 1:15 AM) [facility] [id number] 07:15:00 Test Item Value Reference Range Interpretation Comments U Benzodia Scr (test Negative *NA*(11/10/16 code = U Benzodia Scr) 1:15 AM) [facility] [id number] 07:15:00 Test Item Value Reference Range Interpretation Comments U Amph Scr (test code Negative *NA*(11/10/16 = U Amph Scr) 1:15 AM) [facility] [id number] 07:15:00 Test Item Value Reference Range Interpretation Comments UDS Note (test code = See Note (11/10/16 1:15 UDS Note) AM) [facility] [id number] 07:15:00 Test Item Value Reference Range Interpretation Comments U Opiate Scr (test Positive *ABN*(11/10/16 code = U Opiate Scr) 1:15 AM) [facility] [id number] 07:15:00 Test Item Value Reference Range Interpretation Comments U Phencyc Scr (test Negative *NA*(11/10/16 code = U Phencyc Scr) 1:15 AM) [facility] [id number] 07:15:00 Test Item Value Reference Range Interpretation Comments U Cannab Scr (test Negative *NA*(11/10/16 code = U Cannab Scr) 1:15 AM) [facility] [id number] 07:15:00 Test Item Value Reference Range Interpretation Comments U Cocaine Scr (test Positive *ABN*(11/10/16 code = U Cocaine Scr) 1:15 AM) [facility] [id number] 07:15:00 Test Item Value Reference Range Interpretation Comments U Ysabel Scr (test code Negative *NA*(11/10/16 = U Ysabel Scr) 1:15 AM) [facility]2017-02-10 07:15:00 Test Item Value Reference Range Interpretation Comments U Benzodia Scr (test Negative *NA*(11/10/16 code = U Benzodia Scr) 1:15 AM) [facility]2017-02-10 07:15:00 Test Item Value Reference Range Interpretation Comments U Amph Scr (test code Negative *NA*(11/10/16 = U Amph Scr) 1:15 AM) [id number] 03:40:00 Test Item Value Reference Range Interpretation Comments Basophils (test code = 1.1 See_Comment [Aut omated message] The Basophils) system which ge nerated this result tra nsmitted reference range : <=1.0. The reference r natasha was not used to int erpret this result as normal/abnormal . [facility] Hos[id number] 03:40:00 Test Item Value Reference Range Interpretation Comments Lymphocytes # (test code = Lymphocytes 4.0 1.0-5.5 #) [facility] HospitalSnxechsYXIVNEPKUA3336-71-05 03:40:00 Test Item Value Reference Range Interpretation Comments Monocytes # (test code 0.8 See_Comment [Aut omated message] The = Monocytes #) system which generated this result tra nsmitted reference range : <=0.8. The reference r natasha was not used to int erpret this result as normal/abnormal . [facility] HospitalIrhbdnmBURJUHFIFX9954-69-34 03:40:00 Test Item Value Reference Range Interpretation Comments Eosinophils # (test code 0.1 See_Comment [A utomated message] The = Eosinophils #) system whic h generated this result tra nsmitted reference range : <=0.5. The reference r natasha was not used to int erpret this result as normal/abnormal . [facility] HospitalVxtrnjiYYTCQGLYTA7401-98-61 03:40:00 Test Item Value Reference Range Interpretation Comments Basophils # (test code 0.2 See_Comment [Aut omated message] The = Basophils #) system which generated this result tra nsmitted reference range : <=0.2. The reference r natasha was not used to int erpret this result as normal/abnormal . [facility] HospitalLdlvrehBIPUWHYDES5083-12-96 03:40:00 Test Item Value Reference Range Interpretation Comments Segs (test code = Segs) 67.1 45.0-75.0 [facility] HospitalBwdlmmaCIHTDYZOME0556-06-07 03:40:00 Test Item Value Reference Range Interpretation Comments Lymphocytes (test code = Lymphocytes) 26.0 20.0-40.0 [facility] HospitalUzuofkdRXXKNIVFMY4941-83-50 03:40:00 Test Item Value Reference Range Interpretation Comments Monocytes (test code = Monocytes) 5.3 2.0-12.0 [facility] HospitalDnflckkDHERRCBWYR6387-71-65 03:40:00 Test Item Value Reference Range Interpretation Comments RDW (test code = RDW) 12.8 11.5-14.5 [facility] HospitalMbsfljpDAPRINKGQH6863-93-97 03:40:00 Test Item Value Reference Range Interpretation Comments Platelet (test code = Platelet) 189 133-450 [facility] HospitalGbqkgneTODHHCGXDK9678-80-64 03:40:00 Test Item Value Reference Range Interpretation Comments MPV (test code = MPV) 6.1 7.4-10.4 [facility] HospitalDcjwztjKETZMTKLGB0630-16-53 03:40:00 Test Item Value Reference Range Interpretation Comments Hgb (test code = Hgb) 15.9 14.0-18.0 [facility] HospitalNraeuvmWCPFHXBVIF4798-45-18 03:40:00 Test Item Value Reference Range Interpretation Comments Hct (test code = Hct) 45.4 42.0-54.0 [facility] HospitalOkodkxoFLZNEJPJCL3292-27-04 03:40:00 Test Item Value Reference Range Interpretation Comments MCV (test code = MCV) 95.1 80.0-94.0 [facility] HospitalDcvbrppFJQZQMWUVH2061-27-23 03:40:00 Test Item Value Reference Range Interpretation Comments MCH (test code = MCH) 33.3 pg 27.0-31.0 [facility] HospitalSzfnwgrHXPGTVNZEH2170-46-21 03:40:00 Test Item Value Reference Range Interpretation Comments MCHC (test code = MCHC) 35.0 32.0-36.0 [facility] HospitalXmfaovdUEYBEHHIJX6608-28-10 03:40:00 Test Item Value Reference Range Interpretation Comments WBC (test code = WBC) 15.6 3.7-10.4 [facility] HospitalBhbhmpcQPLMBLXQWX5702-72-44 03:40:00 Test Item Value Reference Range Interpretation Comments RBC (test code = RBC) 4.77 4.70-6.10 [facility] HospitalGsbxpxoDLHKRAUJPB2385-86-71 03:40:00 Test Item Value Reference Range Interpretation Comments G-value Rapid (test code = G-value 3.7 5.0-11.6 Rapid) [facility] HospitalVcrjpbeHQOLHICLPC7693-60-16 03:40:00 Test Item Value Reference Range Interpretation Comments Max Amplitude Rapid (test code = Max 42 mm 52-71 Amplitude Rapid) [facility] HospitalPumtrghUZNNERNGPO0958-16-91 03:40:00 Test Item Value Reference Range Interpretation Comments Estimated % Lysis Rapid 3.4 See_Comment [Au tomated message] The (test code = Estimated syste m which generated % Lysis Rapid) this result t ransmitted reference range : <=7.5. The reference r natasha was not used to int erpret this result as normal/abnormal . [facility] HospitalIdfloghOGRJOQZLTW7148-47-07 03:40:00 Test Item Value Reference Range Interpretation Comments Split Point Rapid (test code = Split 0.7 min Point Rapid) [facility] HospitalVnxcswlQBWNDAHUWC3259-46-13 03:40:00 Test Item Value Reference Range Interpretation Comments R-time Rapid (test code = R-time 1.1 min 0.4-0.7 Rapid) [facility] HospitalQkmgaqbZWILFKXDNE4076-11-65 03:40:00 Test Item Value Reference Range Interpretation Comments ACT (TEG) Rapid (test code = ACT (TEG) 152 s 86-118 Rapid) [facility] HospitalLacfnraZGRYFHXWXS0363-20-66 03:40:00 Test Item Value Reference Range Interpretation Comments K-time Rapid (test code = K-time 4.1 min 0.6-2.3 Rapid) [facility] HospitalDogbmujNIXSXYQFBR4999-08-34 03:40:00 Test Item Value Reference Range Interpretation Comments Angle Rapid (test code = Angle 48 degrees 64-80 Rapid) [place] [id number] 03:40:00 Test Item Value Reference Range Interpretation Comments Etoh (%) (test code = Etoh (%)) 0.148 [place] [address]-02-10 03:40:00 Test Item Value Reference Range Interpretation Comments Ethanol Lvl (test code = Ethanol Lvl) 148 [facility]WbomhkdQXHMTKPSMXVO6088-79-79 03:40:00 Test Item Value Reference Range Interpretation Comments AGAP (test code = AGAP) 18.2 10.0-20.0 [facility]inteHjpnbviHRVBZJTFAIWO0052-11-47 03:40:00 Test Item Value Reference Range Interpretation Comments eGFR (test code = eGFR) 86 [facility]inteXuzjpctBWAHKNMOQHIB6492-96-64 03:40:00 Test Item Value Reference Range Interpretation Comments Sodium Lvl (test code = Sodium Lvl) 137 135-145 [facility]inteTsldozuNUVKDLJIIOCB9318-68-80 03:40:00 Test Item Value Reference Range Interpretation Comments CO2 (test code = CO2) 24 24-32 [facility]inteHhefwiqXKBJLRNZCJFA7861-94-20 03:40:00 Test Item Value Reference Range Interpretation Comments Chloride Lvl (test code = Chloride Lvl) 98 95-109 [facility]inteFlszbnrOZUWTGUVVZSX4095-28-08 03:40:00 Test Item Value Reference Range Interpretation Comments Potassium Lvl (test code = Potassium 3.2 3.5-5.1 Lvl) [facility]inteDskaqsqKYIXOFLRBGLF8792-59-11 03:40:00 Test Item Value Reference Range Interpretation Comments BUN (test code = BUN) 14 7-22 [facility]inteGzncgomXXZRMEHYZOYC6271-14-14 03:40:00 Test Item Value Reference Range Interpretation Comments Glucose Lvl (test code = Glucose Lvl) 80 70-99 [facility]inteSykdrqzDZWXXTBVTIVO9239-53-93 03:40:00 Test Item Value Reference Range Interpretation Comments Creatinine Lvl (test code = Creatinine 1.15 0.50-1.40 Lvl) [facility] HospitalVidqqzgAKXKHEQPBZLR7450-27-43 03:40:00 Test Item Value Reference Range Interpretation Comments Calcium Lvl (test code = Calcium Lvl) 9.0 8.5-10.5 [facility] HospitalDnynpjfUZUYZFWKZN5226-93-31 03:40:00 Test Item Value Reference Range Interpretation Comments Segs-Bands # (test code = Segs-Bands #) 10.5 1.5-8.1 [facility] HospitalHgmpowkATVVHMONQW4181-04-30 03:40:00 Test Item Value Reference Range Interpretation Comments Eosinophils (test code = 0.5 See_Comment [A utomated message] The Eosinophils) system which ge nerated this result tra nsmitted reference range : <=4.0. The reference r natasha was not used to int erpret this result as normal/abnormal . [facility] HospitalXroeuasLAYBSONJHK2025-64-96 03:40:00 Test Item Value Reference Range Interpretation Comments Basophils (test code = 1.1 See_Comment [Aut omated message] The Basophils) system which ge nerated this result tra nsmitted reference range : <=1.0. The reference r natasha was not used to int erpret this result as normal/abnormal . [facility] HospitalJfcmhjhYLBSZCUKST5908-39-36 03:40:00 Test Item Value Reference Range Interpretation Comments Lymphocytes # (test code = Lymphocytes 4.0 1.0-5.5 #) [facility] HospitalDzuxrcdJQBQJZOMRC1227-24-91 03:40:00 Test Item Value Reference Range Interpretation Comments Monocytes # (test code 0.8 See_Comment [Aut omated message] The = Monocytes #) system which generated this result tra nsmitted reference range : <=0.8. The reference r natasha was not used to int erpret this result as normal/abnormal . [facility] HospitalIfhxugvOCXZTTSKYK5490-56-28 03:40:00 Test Item Value Reference Range Interpretation Comments Eosinophils # (test code 0.1 See_Comment [A utomated message] The = Eosinophils #) system whic h generated this result tra nsmitted reference range : <=0.5. The reference r natasha was not used to int erpret this result as normal/abnormal . [facility] HospitalSpiklkqDPDSDXARJQ1340-75-73 03:40:00 Test Item Value Reference Range Interpretation Comments Basophils # (test code 0.2 See_Comment [Aut omated message] The = Basophils #) system which generated this result tra nsmitted reference range : <=0.2. The reference r natasha was not used to int erpret this result as normal/abnormal . [facility] HospitalAdxfagrHONXCSUABB3027-72-13 03:40:00 Test Item Value Reference Range Interpretation Comments Segs (test code = Segs) 67.1 45.0-75.0 [facility] HospitalBowdhbdSVZJDFVUES7771-73-57 03:40:00 Test Item Value Reference Range Interpretation Comments Lymphocytes (test code = Lymphocytes) 26.0 20.0-40.0 [facility] HospitalLhvtsgaTKARSIWWYT9957-94-31 03:40:00 Test Item Value Reference Range Interpretation Comments Monocytes (test code = Monocytes) 5.3 2.0-12.0 [facility] HospitalVfmgxwbYSUSXUYOQA7092-84-11 03:40:00 Test Item Value Reference Range Interpretation Comments RDW (test code = RDW) 12.8 11.5-14.5 [facility] HospitalGwflutqIRHMOYMLOX2527-80-97 03:40:00 Test Item Value Reference Range Interpretation Comments Platelet (test code = Platelet) 189 133-450 [facility] HospitalNxdsuegTAILSSXPCW4423-16-89 03:40:00 Test Item Value Reference Range Interpretation Comments MPV (test code = MPV) 6.1 7.4-10.4 [facility] HospitalXknlqcsQNFWGYDKGU1510-99-56 03:40:00 Test Item Value Reference Range Interpretation Comments Hgb (test code = Hgb) 15.9 14.0-18.0 [facility] HospitalYavfbuwGIQEXGORPL9951-25-41 03:40:00 Test Item Value Reference Range Interpretation Comments Hct (test code = Hct) 45.4 42.0-54.0 [facility] HospitalCwsedxhRUASLHYGNE8694-46-56 03:40:00 Test Item Value Reference Range Interpretation Comments MCV (test code = MCV) 95.1 80.0-94.0 [facility] HospitalFdtmrmoTHGEFQWMAA9926-10-31 03:40:00 Test Item Value Reference Range Interpretation Comments MCH (test code = MCH) 33.3 pg 27.0-31.0 [facility] HospitalDpfrpzkWDBFATMGWL2370-22-00 03:40:00 Test Item Value Reference Range Interpretation Comments MCHC (test code = MCHC) 35.0 32.0-36.0 [facility] HospitalMbtdnwaTFJCXBTWVH7381-76-46 03:40:00 Test Item Value Reference Range Interpretation Comments WBC (test code = WBC) 15.6 3.7-10.4 [facility] HospitalHnkdetkPESCXEXBTW8519-64-25 03:40:00 Test Item Value Reference Range Interpretation Comments RBC (test code = RBC) 4.77 4.70-6.10 [facility] HospitalNasvijrHLCSWLTBCP3728-34-02 03:40:00 Test Item Value Reference Range Interpretation Comments G-value Rapid (test code = G-value 3.7 5.0-11.6 Rapid) [facility] HospitalSnzrlffMQYNSVPAFV4993-17-65 03:40:00 Test Item Value Reference Range Interpretation Comments Max Amplitude Rapid (test code = Max 42 mm 52-71 Amplitude Rapid) [facility] HospitalGcwyvivUKLVUHOWZP7712-78-11 03:40:00 Test Item Value Reference Range Interpretation Comments Estimated % Lysis Rapid 3.4 See_Comment [Au tomated message] The (test code = Estimated syste m which generated % Lysis Rapid) this result t ransmitted reference range : <=7.5. The reference r natasha was not used to int erpret this result as normal/abnormal . [facility] HospitalOgibrwuFPHUOLTJQI9019-38-57 03:40:00 Test Item Value Reference Range Interpretation Comments Split Point Rapid (test code = Split 0.7 min Point Rapid) [facility] HospitalKxzmsehNIKSIMGAUE1633-20-05 03:40:00 Test Item Value Reference Range Interpretation Comments R-time Rapid (test code = R-time 1.1 min 0.4-0.7 Rapid) [facility] HospitalIrzqqgwDPURHSJNSY4478-83-86 03:40:00 Test Item Value Reference Range Interpretation Comments ACT (TEG) Rapid (test code = ACT (TEG) 152 s 86-118 Rapid) [facility] HospitalYddhxakSWLCMKTVLU3210-00-86 03:40:00 Test Item Value Reference Range Interpretation Comments K-time Rapid (test code = K-time 4.1 min 0.6-2.3 Rapid) [facility] HospitalXikpipvICFLBCQSVQ3874-42-73 03:40:00 Test Item Value Reference Range Interpretation Comments Angle Rapid (test code = Angle 48 degrees 64-80 Rapid) [facility]YygbyzpGLCPMTQYPA5573-39-86 03:40:00 Test Item Value Reference Range Interpretation Comments Etoh (%) (test code = Etoh (%)) 0.148 [facility]viewVyktlawWLRSTTCXSV5180-37-08 03:40:00 Test Item Value Reference Range Interpretation Comments Ethanol Lvl (test code = Ethanol Lvl) 148 [facility]inteBxcrwpiJAIFAIVFBOIO5468-95-50 03:40:00 Test Item Value Reference Range Interpretation Comments AGAP (test code = AGAP) 18.2 10.0-20.0 [facility]BksagniOZDJQCCRYXUO3404-30-30 03:40:00 Test Item Value Reference Range Interpretation Comments eGFR (test code = eGFR) 86 [facility]inteKjrvxguJMBWIQYNOZUG3870-98-41 03:40:00 Test Item Value Reference Range Interpretation Comments Sodium Lvl (test code = Sodium Lvl) 137 135-145 [facility]inteCyzqmpuMSLRLPQIJANL4357-79-36 03:40:00 Test Item Value Reference Range Interpretation Comments CO2 (test code = CO2) 24 24-32 [facility]inteCrxvopqLCIBLBNZMNBR2975-91-32 03:40:00 Test Item Value Reference Range Interpretation Comments Chloride Lvl (test code = Chloride Lvl) 98 95-109 [facility]inteAvkcvpcGEQLCJSKYJOP2074-16-35 03:40:00 Test Item Value Reference Range Interpretation Comments Potassium Lvl (test code = Potassium 3.2 3.5-5.1 Lvl) [facility]inteEdzabizDGGGMPAZWKOI9307-47-71 03:40:00 Test Item Value Reference Range Interpretation Comments BUN (test code = BUN) 14 7-22 [facility]inteMpmaggoKSSEASQPXPMD0390-10-91 03:40:00 Test Item Value Reference Range Interpretation Comments Glucose Lvl (test code = Glucose Lvl) 80 70-99 [facility]inteFxcqkqbQTITYTQAXPES6843-98-95 03:40:00 Test Item Value Reference Range Interpretation Comments Creatinine Lvl (test code = Creatinine 1.15 0.50-1.40 Lvl) [facility]inteAauhcnnGGCNDTZWIPVI0746-97-55 03:40:00 Test Item Value Reference Range Interpretation Comments Calcium Lvl (test code = Calcium Lvl) 9.0 8.5-10.5 [facility]LgjkxwhARLGDDGIKT6242-35-41 03:40:00 Test Item Value Reference Range Interpretation Comments Segs-Bands # (test code = Segs-Bands #) 10.5 1.5-8.1 [facility] HospitalIfuakuhBVQLTCLVYJ9840-36-13 03:40:00 Test Item Value Reference Range Interpretation Comments Eosinophils (test code = 0.5 See_Comment [A utomated message] The Eosinophils) system which ge nerated this result tra nsmitted reference range : <=4.0. The reference r natasha was not used to int erpret this result as normal/abnormal . [facility] HospitalNmispkgRVVXXRXMHP8815-48-78 03:40:00 Test Item Value Reference Range Interpretation Comments Basophils (test code = 1.1 See_Comment [Aut omated message] The Basophils) system which ge nerated this result tra nsmitted reference range : <=1.0. The reference r natasha was not used to int erpret this result as normal/abnormal . [facility] HospitalQyrohszUTYUGPUJYI9443-44-01 03:40:00 Test Item Value Reference Range Interpretation Comments Lymphocytes # (test code = Lymphocytes 4.0 1.0-5.5 #) [facility] HospitalPpacpokBBRERBKPHB2286-52-70 03:40:00 Test Item Value Reference Range Interpretation Comments Monocytes # (test code 0.8 See_Comment [Aut omated message] The = Monocytes #) system which generated this result tra nsmitted reference range : <=0.8. The reference r natasha was not used to int erpret this result as normal/abnormal . [facility] HospitalSzcbtpjBKHFZTUVIA6236-81-15 03:40:00 Test Item Value Reference Range Interpretation Comments Eosinophils # (test code 0.1 See_Comment [A utomated message] The = Eosinophils #) system whic h generated this result tra nsmitted reference range : <=0.5. The reference r natasha was not used to int erpret this result as normal/abnormal . [facility] HospitalFgdcrcuKQLCNUWGEH2937-39-28 03:40:00 Test Item Value Reference Range Interpretation Comments Basophils # (test code 0.2 See_Comment [Aut omated message] The = Basophils #) system which generated this result tra nsmitted reference range : <=0.2. The reference r natasha was not used to int erpret this result as normal/abnormal . [facility] HospitalGrkictnTPGLLESUDE2818-04-34 03:40:00 Test Item Value Reference Range Interpretation Comments Segs (test code = Segs) 67.1 45.0-75.0 [facility] HospitalTjqxqjdGSSRNAUBBI4124-05-98 03:40:00 Test Item Value Reference Range Interpretation Comments Lymphocytes (test code = Lymphocytes) 26.0 20.0-40.0 [facility] HospitalHdfrkqgIWUCZEHJPU5110-87-58 03:40:00 Test Item Value Reference Range Interpretation Comments Monocytes (test code = Monocytes) 5.3 2.0-12.0 [facility] HospitalQojnekbYNOHBJHTAK0887-46-39 03:40:00 Test Item Value Reference Range Interpretation Comments RDW (test code = RDW) 12.8 11.5-14.5 [facility] HospitalMijbamrOCTNEECZAB1292-66-14 03:40:00 Test Item Value Reference Range Interpretation Comments Platelet (test code = Platelet) 189 133-450 [facility] HospitalCnxkxshTXMKSLTZAV1309-16-70 03:40:00 Test Item Value Reference Range Interpretation Comments MPV (test code = MPV) 6.1 7.4-10.4 [facility] HospitalYsskzfmYWCBWKRNPD8438-07-08 03:40:00 Test Item Value Reference Range Interpretation Comments Hgb (test code = Hgb) 15.9 14.0-18.0 [facility] HospitalPhkckbfOLDTULXHGF5794-73-21 03:40:00 Test Item Value Reference Range Interpretation Comments Hct (test code = Hct) 45.4 42.0-54.0 [facility] HospitalPcbjsmwWNOWCYJSMM9892-96-90 03:40:00 Test Item Value Reference Range Interpretation Comments MCV (test code = MCV) 95.1 80.0-94.0 [facility] HospitalDiwuhdfXNGKJNPUFB5190-66-41 03:40:00 Test Item Value Reference Range Interpretation Comments MCH (test code = MCH) 33.3 pg 27.0-31.0 [facility] HospitalBrjsyxtROGFOQDOWM6870-14-84 03:40:00 Test Item Value Reference Range Interpretation Comments MCHC (test code = MCHC) 35.0 32.0-36.0 [facility] HospitalYymtdozPHGXUYTNGK9740-81-16 03:40:00 Test Item Value Reference Range Interpretation Comments WBC (test code = WBC) 15.6 3.7-10.4 [facility] HospitalSdjbeylYEGONXYDJQ8213-17-67 03:40:00 Test Item Value Reference Range Interpretation Comments RBC (test code = RBC) 4.77 4.70-6.10 [facility] HospitalPmdijoxXNDIIKXTJH8104-02-57 03:40:00 Test Item Value Reference Range Interpretation Comments G-value Rapid (test code = G-value 3.7 5.0-11.6 Rapid) [facility] HospitalSopscgaYJIHSZSWHQ6771-94-17 03:40:00 Test Item Value Reference Range Interpretation Comments Max Amplitude Rapid (test code = Max 42 mm 52-71 Amplitude Rapid) [facility] HospitalWkxefcsTXTYOFVIGM3075-46-64 03:40:00 Test Item Value Reference Range Interpretation Comments Estimated % Lysis Rapid 3.4 See_Comment [Au tomated message] The (test code = Estimated syste m which generated % Lysis Rapid) this result t ransmitted reference range : <=7.5. The reference r natasha was not used to int erpret this result as normal/abnormal . [facility] HospitalOofrebjPZXSRASPVV3909-37-41 03:40:00 Test Item Value Reference Range Interpretation Comments Split Point Rapid (test code = Split 0.7 min Point Rapid) [facility] HospitalOdlgjeoXKOFWQTWMD2320-40-09 03:40:00 Test Item Value Reference Range Interpretation Comments R-time Rapid (test code = R-time 1.1 min 0.4-0.7 Rapid) [facility] HospitalVbjhgxoIKBOVMPCWE1762-82-43 03:40:00 Test Item Value Reference Range Interpretation Comments ACT (TEG) Rapid (test code = ACT (TEG) 152 s 86-118 Rapid) [facility] HospitalHfajhauINGBBHSYCO9464-00-02 03:40:00 Test Item Value Reference Range Interpretation Comments K-time Rapid (test code = K-time 4.1 min 0.6-2.3 Rapid) [facility] HospitalSlvqhcrLRACHBPTYE3908-70-07 03:40:00 Test Item Value Reference Range Interpretation Comments Angle Rapid (test code = Angle 48 degrees 64-80 Rapid) [place] [id number] 03:40:00 Test Item Value Reference Range Interpretation Comments Etoh (%) (test code = Etoh (%)) 0.148 [place] [id number] 03:40:00 Test Item Value Reference Range Interpretation Comments Ethanol Lvl (test code = Ethanol Lvl) 148 [facility]inteDnllzuaJABWVZUANRHM1053-62-01 03:40:00 Test Item Value Reference Range Interpretation Comments AGAP (test code = AGAP) 18.2 10.0-20.0 [facility]intePupfighGSZJGBCONHWA7728-26-31 03:40:00 Test Item Value Reference Range Interpretation Comments eGFR (test code = eGFR) 86 [facility]inteMdyhqftWDVPFVFSTVVO1569-24-74 03:40:00 Test Item Value Reference Range Interpretation Comments Sodium Lvl (test code = Sodium Lvl) 137 135-145 [facility]inteHebcuquUFXBXIGGTVBY2128-97-51 03:40:00 Test Item Value Reference Range Interpretation Comments CO2 (test code = CO2) 24 24-32 [facility]inteXakkyndFNFJTPVSPJLT5181-41-65 03:40:00 Test Item Value Reference Range Interpretation Comments Chloride Lvl (test code = Chloride Lvl) 98 95-109 [facility]inteKnflzcdFNTKNDUZGVLP6461-05-22 03:40:00 Test Item Value Reference Range Interpretation Comments Potassium Lvl (test code = Potassium 3.2 3.5-5.1 Lvl) [facility]inteWgyaofgKIHGJCKAKTXR2923-77-79 03:40:00 Test Item Value Reference Range Interpretation Comments BUN (test code = BUN) 14 7-22 [facility]inteDvqjpchRHQHNHUHATZU3006-65-23 03:40:00 Test Item Value Reference Range Interpretation Comments Glucose Lvl (test code = Glucose Lvl) 80 70-99 [facility]inteHahlhgoPOTRXFPORNLL1038-83-71 03:40:00 Test Item Value Reference Range Interpretation Comments Creatinine Lvl (test code = Creatinine 1.15 0.50-1.40 Lvl) [facility]inteZsrhrvkKCQTQNIZKODI7163-03-41 03:40:00 Test Item Value Reference Range Interpretation Comments Calcium Lvl (test code = Calcium Lvl) 9.0 8.5-10.5 [facility] HospitalKmvrxloJIIWDWBHYV9121-45-26 03:40:00 Test Item Value Reference Range Interpretation Comments Segs-Bands # (test code = Segs-Bands #) 10.5 1.5-8.1 [facility] HospitalPjzlnvtVYXWYVQKOU5062-13-67 03:40:00 Test Item Value Reference Range Interpretation Comments Eosinophils (test code = 0.5 See_Comment [A utomated message] The Eosinophils) system which ge nerated this result tra nsmitted reference range : <=4.0. The reference r natasha was not used to int erpret this result as normal/abnormal . [facility] HospitalHxjvygqVCBIPCOCRB6475-96-32 03:40:00 Test Item Value Reference Range Interpretation Comments Basophils (test code = 1.1 See_Comment [Aut omated message] The Basophils) system which ge nerated this result tra nsmitted reference range : <=1.0. The reference r natasha was not used to int erpret this result as normal/abnormal . [facility] HospitalLlxibffMAOSCRKDTK1076-61-48 03:40:00 Test Item Value Reference Range Interpretation Comments Lymphocytes # (test code = Lymphocytes 4.0 1.0-5.5 #) [facility] HospitalQgdpmlaTAVQLQDZNI8619-31-31 03:40:00 Test Item Value Reference Range Interpretation Comments Monocytes # (test code 0.8 See_Comment [Aut omated message] The = Monocytes #) system which generated this result tra nsmitted reference range : <=0.8. The reference r natasha was not used to int erpret this result as normal/abnormal . [facility] HospitalOyntwfyBVNGSMAWJE9812-25-70 03:40:00 Test Item Value Reference Range Interpretation Comments Eosinophils # (test code 0.1 See_Comment [A utomated message] The = Eosinophils #) system whic h generated this result tra nsmitted reference range : <=0.5. The reference r natasha was not used to int erpret this result as normal/abnormal . [facility] HospitalWwrrttzXGORUWIACT5660-55-96 03:40:00 Test Item Value Reference Range Interpretation Comments Basophils # (test code 0.2 See_Comment [Aut omated message] The = Basophils #) system which generated this result tra nsmitted reference range : <=0.2. The reference r natasha was not used to int erpret this result as normal/abnormal . [facility] HospitalWkuldihLBXJSAVUPA6651-00-27 03:40:00 Test Item Value Reference Range Interpretation Comments Segs (test code = Segs) 67.1 45.0-75.0 [facility] HospitalDdzanydRICPDBVYZG2020-45-53 03:40:00 Test Item Value Reference Range Interpretation Comments Lymphocytes (test code = Lymphocytes) 26.0 20.0-40.0 [facility] HospitalPukaatmLWQMYVKXTY6391-54-33 03:40:00 Test Item Value Reference Range Interpretation Comments Monocytes (test code = Monocytes) 5.3 2.0-12.0 [facility] HospitalKgyuuwzSUGOZAZQSU1062-33-23 03:40:00 Test Item Value Reference Range Interpretation Comments RDW (test code = RDW) 12.8 11.5-14.5 [facility] HospitalIwrjmgmWLXDHVYAIU9121-28-85 03:40:00 Test Item Value Reference Range Interpretation Comments Platelet (test code = Platelet) 189 133-450 [facility] HospitalOcaccggPXUUUHPXSD7670-16-08 03:40:00 Test Item Value Reference Range Interpretation Comments MPV (test code = MPV) 6.1 7.4-10.4 [facility] HospitalSqobikrJWESTJJQZF9662-94-18 03:40:00 Test Item Value Reference Range Interpretation Comments Hgb (test code = Hgb) 15.9 14.0-18.0 [facility] HospitalIuapybrOAZHHHCUYN3781-45-33 03:40:00 Test Item Value Reference Range Interpretation Comments Hct (test code = Hct) 45.4 42.0-54.0 [facility] HospitalNkiamkhDKZGQTLXTK2732-18-62 03:40:00 Test Item Value Reference Range Interpretation Comments MCV (test code = MCV) 95.1 80.0-94.0 [facility] HospitalJjvnqfsLPQBCKQGLF2448-21-75 03:40:00 Test Item Value Reference Range Interpretation Comments MCH (test code = MCH) 33.3 pg 27.0-31.0 [facility] HospitalJglvqjwPQJCGYVTID9865-93-65 03:40:00 Test Item Value Reference Range Interpretation Comments MCHC (test code = MCHC) 35.0 32.0-36.0 [facility] HospitalTxgdzpbZRSMICSDKW3960-07-52 03:40:00 Test Item Value Reference Range Interpretation Comments WBC (test code = WBC) 15.6 3.7-10.4 [facility] HospitalYgmagpfIKZCWVXRQE6787-74-82 03:40:00 Test Item Value Reference Range Interpretation Comments RBC (test code = RBC) 4.77 4.70-6.10 [facility] HospitalFfetaljTQHCEUTLBM8978-65-26 03:40:00 Test Item Value Reference Range Interpretation Comments G-value Rapid (test code = G-value 3.7 5.0-11.6 Rapid) [facility] HospitalCdqeseuOQQWGZAABK7213-11-71 03:40:00 Test Item Value Reference Range Interpretation Comments Max Amplitude Rapid (test code = Max 42 mm 52-71 Amplitude Rapid) [facility] HospitalFoydxlkCGTYXPDDIO8478-35-21 03:40:00 Test Item Value Reference Range Interpretation Comments Estimated % Lysis Rapid 3.4 See_Comment [Au tomated message] The (test code = Estimated syste m which generated % Lysis Rapid) this result t ransmitted reference range : <=7.5. The reference r natasha was not used to int erpret this result as normal/abnormal . [facility] HospitalRntkvhgAXAVZQEVNH0937-28-32 03:40:00 Test Item Value Reference Range Interpretation Comments Split Point Rapid (test code = Split 0.7 min Point Rapid) [facility] HospitalGmxvfzgHXHBLYTZKJ0694-02-72 03:40:00 Test Item Value Reference Range Interpretation Comments R-time Rapid (test code = R-time 1.1 min 0.4-0.7 Rapid) [facility] HospitalImqmsaxYAXBOFHFMZ3089-03-96 03:40:00 Test Item Value Reference Range Interpretation Comments ACT (TEG) Rapid (test code = ACT (TEG) 152 s 86-118 Rapid) [facility] HospitalJxmfuupIOJPFBUTIH9805-91-70 03:40:00 Test Item Value Reference Range Interpretation Comments K-time Rapid (test code = K-time 4.1 min 0.6-2.3 Rapid) [facility] HospitalYxwsthbXQCHFXOZSQ6720-32-83 03:40:00 Test Item Value Reference Range Interpretation Comments Angle Rapid (test code = Angle 48 degrees 64-80 Rapid) [facility]LklvslqCFDKBRFSSF9988-12-35 03:40:00 Test Item Value Reference Range Interpretation Comments Etoh (%) (test code = Etoh (%)) 0.148 [place] [id number] 03:40:00 Test Item Value Reference Range Interpretation Comments Ethanol Lvl (test code = Ethanol Lvl) 148 [facility]YvnmlgqXMSUCBVBRNIT5321-80-43 03:40:00 Test Item Value Reference Range Interpretation Comments AGAP (test code = AGAP) 18.2 10.0-20.0 [facility]inteQnosvhcEPLBYSAXLUCQ1202-76-49 03:40:00 Test Item Value Reference Range Interpretation Comments eGFR (test code = eGFR) 86 [facility]inteSzvxtpiJFQOETZMXLTW7592-74-41 03:40:00 Test Item Value Reference Range Interpretation Comments Sodium Lvl (test code = Sodium Lvl) 137 135-145 [facility]inteDfvnorwIEWUWNLXSPGH7703-60-09 03:40:00 Test Item Value Reference Range Interpretation Comments CO2 (test code = CO2) 24 24-32 [facility]inteJkseqjsOQIJZLGGACGH9517-15-55 03:40:00 Test Item Value Reference Range Interpretation Comments Chloride Lvl (test code = Chloride Lvl) 98 95-109 [facility]inteYhmbpcoRRJCBOXLEPUY2398-87-87 03:40:00 Test Item Value Reference Range Interpretation Comments Potassium Lvl (test code = Potassium 3.2 3.5-5.1 Lvl) [facility]inteTiahuzhPPEOSCEHMLMA0820-06-13 03:40:00 Test Item Value Reference Range Interpretation Comments BUN (test code = BUN) 14 7-22 [facility]inteBenunpfRBIGZSCIWCJI4293-60-71 03:40:00 Test Item Value Reference Range Interpretation Comments Glucose Lvl (test code = Glucose Lvl) 80 70-99 [facility]inteJtjwmhhFGPGVFBMCZYJ2881-56-62 03:40:00 Test Item Value Reference Range Interpretation Comments Creatinine Lvl (test code = Creatinine 1.15 0.50-1.40 Lvl) [facility]intePymjlkiZKIDQRMOZGCF3401-16-78 03:40:00 Test Item Value Reference Range Interpretation Comments Calcium Lvl (test code = Calcium Lvl) 9.0 8.5-10.5 [facility] HospitalJpkvrclIJEYWOULLE9194-90-71 03:40:00 Test Item Value Reference Range Interpretation Comments Segs-Bands # (test code = Segs-Bands #) 10.5 1.5-8.1 [facility] HospitalGqejeefZQZWUYKJZX8197-00-55 03:40:00 Test Item Value Reference Range Interpretation Comments Eosinophils (test code = 0.5 See_Comment [A utomated message] The Eosinophils) system which nerated this result tra nsmitted reference range : <=4.0. The reference r natasha was not used to int erpret this result as normal/abnormal . [facility] HospitalYujfwobOOEQGPOXGW4643-78-98 03:40:00 Test Item Value Reference Range Interpretation Comments Basophils (test code = 1.1 See_Comment [Aut omated message] The Basophils) system which ge nerated this result tra nsmitted reference range : <=1.0. The reference r natasha was not used to int erpret this result as normal/abnormal . [facility] HospitalDvrakfyDHUFHUQOAR6128-12-33 03:40:00 Test Item Value Reference Range Interpretation Comments Lymphocytes # (test code = Lymphocytes 4.0 1.0-5.5 #) [facility] HospitalOfmndfyLCTPIICYDO0624-85-15 03:40:00 Test Item Value Reference Range Interpretation Comments Monocytes # (test code 0.8 See_Comment [Aut omated message] The = Monocytes #) system which generated this result tra nsmitted reference range : <=0.8. The reference r natasha was not used to int erpret this result as normal/abnormal . [facility] HospitalObkrnudRCSVOQNWLI9831-33-60 03:40:00 Test Item Value Reference Range Interpretation Comments Eosinophils # (test code 0.1 See_Comment [A utomated message] The = Eosinophils #) system whic h generated this result tra nsmitted reference range : <=0.5. The reference r natasha was not used to int erpret this result as normal/abnormal . [facility] HospitalEelatbzAQCXBPQAXZ6887-28-88 03:40:00 Test Item Value Reference Range Interpretation Comments Basophils # (test code 0.2 See_Comment [Aut omated message] The = Basophils #) system which generated this result tra nsmitted reference range : <=0.2. The reference r natasha was not used to int erpret this result as normal/abnormal . [facility] HospitalNrltisxZGDIGGOCTL3146-98-88 03:40:00 Test Item Value Reference Range Interpretation Comments Segs (test code = Segs) 67.1 45.0-75.0 [facility] HospitalIaombmwWDATUXMTKV7317-01-69 03:40:00 Test Item Value Reference Range Interpretation Comments Lymphocytes (test code = Lymphocytes) 26.0 20.0-40.0 [facility] HospitalXknophrKFXOSVWIXE6513-71-10 03:40:00 Test Item Value Reference Range Interpretation Comments Monocytes (test code = Monocytes) 5.3 2.0-12.0 [facility] HospitalStmszvpCRJLYMMRJN0995-73-00 03:40:00 Test Item Value Reference Range Interpretation Comments RDW (test code = RDW) 12.8 11.5-14.5 [facility] HospitalAkrkkaqCTYAYZQHCA7101-53-62 03:40:00 Test Item Value Reference Range Interpretation Comments Platelet (test code = Platelet) 189 133-450 [facility] HospitalQpcqieaFAVPYTPEPG2757-37-88 03:40:00 Test Item Value Reference Range Interpretation Comments MPV (test code = MPV) 6.1 7.4-10.4 [facility] HospitalErcqtbrOMUEDSIJHH3032-86-93 03:40:00 Test Item Value Reference Range Interpretation Comments Hgb (test code = Hgb) 15.9 14.0-18.0 [facility] HospitalEazipzzWXZPTBACET9047-48-20 03:40:00 Test Item Value Reference Range Interpretation Comments Hct (test code = Hct) 45.4 42.0-54.0 [facility] HospitalIfibwzoLYMYMICJGA3639-22-37 03:40:00 Test Item Value Reference Range Interpretation Comments MCV (test code = MCV) 95.1 80.0-94.0 [facility] HospitalZtuuzflNRNDWTDRBP5488-70-44 03:40:00 Test Item Value Reference Range Interpretation Comments MCH (test code = MCH) 33.3 pg 27.0-31.0 [facility] HospitalPlyworxUDKRVFXPUM9380-99-77 03:40:00 Test Item Value Reference Range Interpretation Comments MCHC (test code = MCHC) 35.0 32.0-36.0 [facility] HospitalAwhxxweKZXNIMPTJW7773-87-36 03:40:00 Test Item Value Reference Range Interpretation Comments WBC (test code = WBC) 15.6 3.7-10.4 [facility] HospitalCarcetkTBMRRJSCOV4076-81-76 03:40:00 Test Item Value Reference Range Interpretation Comments RBC (test code = RBC) 4.77 4.70-6.10 [facility] HospitalRabhtyaDTTBZJGIUE2451-37-50 03:40:00 Test Item Value Reference Range Interpretation Comments G-value Rapid (test code = G-value 3.7 5.0-11.6 Rapid) [facility] HospitalJndirzmUWNEGXIMNX6716-31-91 03:40:00 Test Item Value Reference Range Interpretation Comments Max Amplitude Rapid (test code = Max 42 mm 52-71 Amplitude Rapid) [facility] HospitalFaqdgrcYEPIZEYTHK0126-52-88 03:40:00 Test Item Value Reference Range Interpretation Comments Estimated % Lysis Rapid 3.4 See_Comment [Au tomated message] The (test code = Estimated syste m which generated % Lysis Rapid) this result t ransmitted reference range : <=7.5. The reference r natasha was not used to int erpret this result as normal/abnormal . [facility] HospitalKramqwsKGLRBCEOKK3648-24-79 03:40:00 Test Item Value Reference Range Interpretation Comments Split Point Rapid (test code = Split 0.7 min Point Rapid) [facility] HospitalVkovolyICTTUYVROQ8900-81-79 03:40:00 Test Item Value Reference Range Interpretation Comments R-time Rapid (test code = R-time 1.1 min 0.4-0.7 Rapid) [facility] HospitalTtyahmjTWOJLXUGXF9558-42-49 03:40:00 Test Item Value Reference Range Interpretation Comments ACT (TEG) Rapid (test code = ACT (TEG) 152 s 86-118 Rapid) [facility] HospitalGjawposYLAGWXITRI3008-93-24 03:40:00 Test Item Value Reference Range Interpretation Comments K-time Rapid (test code = K-time 4.1 min 0.6-2.3 Rapid) [facility] HospitalEdwwwmrDIAARJBPIB4123-08-03 03:40:00 Test Item Value Reference Range Interpretation Comments Angle Rapid (test code = Angle 48 degrees 64-80 Rapid) [place] [id number] 03:40:00 Test Item Value Reference Range Interpretation Comments Etoh (%) (test code = Etoh (%)) 0.148 [place] [id number] 03:40:00 Test Item Value Reference Range Interpretation Comments Ethanol Lvl (test code = Ethanol Lvl) 148 [facility]inteItbmckqINIDVUUZNLIX1678-65-03 03:40:00 Test Item Value Reference Range Interpretation Comments AGAP (test code = AGAP) 18.2 10.0-20.0 [facility]inteEfwzuypPSFNHFPARVBZ0235-58-57 03:40:00 Test Item Value Reference Range Interpretation Comments eGFR (test code = eGFR) 86 [facility]inteCnokwwkRGLQHXVIPTUN6469-41-95 03:40:00 Test Item Value Reference Range Interpretation Comments Sodium Lvl (test code = Sodium Lvl) 137 135-145 [facility]inteFepuwwzTSJDSJXFIZIC8624-82-89 03:40:00 Test Item Value Reference Range Interpretation Comments CO2 (test code = CO2) 24 24-32 [facility]DnqbhrtWFFINYCAVJBN0675-76-65 03:40:00 Test Item Value Reference Range Interpretation Comments Chloride Lvl (test code = Chloride Lvl) 98 95-109 [facility]inteDtjjwiwUSUDMPFMFSJV7526-42-39 03:40:00 Test Item Value Reference Range Interpretation Comments Potassium Lvl (test code = Potassium 3.2 3.5-5.1 Lvl) [facility]intePjmcvdvQYSWJZKDGBCV4786-78-63 03:40:00 Test Item Value Reference Range Interpretation Comments BUN (test code = BUN) 14 7-22 [facility]inteCvzhecdXRYIUXEOKNXZ1168-39-80 03:40:00 Test Item Value Reference Range Interpretation Comments Glucose Lvl (test code = Glucose Lvl) 80 70-99 [facility]inteWhvaegqLYVQPWYFWXZS5804-89-14 03:40:00 Test Item Value Reference Range Interpretation Comments Creatinine Lvl (test code = Creatinine 1.15 0.50-1.40 Lvl) [facility]inteMzphpdgBVYJKEJWMCLR6574-24-27 03:40:00 Test Item Value Reference Range Interpretation Comments Calcium Lvl (test code = Calcium Lvl) 9.0 8.5-10.5 [facility]ZqfksdfQPQTWSEWDR5117-57-61 03:40:00 Test Item Value Reference Range Interpretation Comments Segs-Bands # (test code = Segs-Bands #) 10.5 1.5-8.1 [facility] HospitalWoxymmvNPDCLPPCWB3418-39-67 03:40:00 Test Item Value Reference Range Interpretation Comments Eosinophils (test code = 0.5 See_Comment [A utomated message] The Eosinophils) system which ge nerated this result tra nsmitted reference range : <=4.0. The reference r natasha was not used to int erpret this result as normal/abnormal . [facility] HospitalQygaiouDIVHYFSUFG7912-09-01 03:40:00 Test Item Value Reference Range Interpretation Comments Basophils (test code = 1.1 See_Comment [Aut omated message] The Basophils) system which ge nerated this result tra nsmitted reference range : <=1.0. The reference r natasha was not used to int erpret this result as normal/abnormal . [facility] HospitalYjsffevSDYADRZXBF8340-37-84 03:40:00 Test Item Value Reference Range Interpretation Comments Lymphocytes # (test code = Lymphocytes 4.0 1.0-5.5 #) [facility] HospitalKwjbbpvMAKWRUJEEH7602-68-88 03:40:00 Test Item Value Reference Range Interpretation Comments Monocytes # (test code 0.8 See_Comment [Aut omated message] The = Monocytes #) system which generated this result tra nsmitted reference range : <=0.8. The reference r natasha was not used to int erpret this result as normal/abnormal . [facility] HospitalMdpxfrzFIQQQBMHIN0070-49-84 03:40:00 Test Item Value Reference Range Interpretation Comments Eosinophils # (test code 0.1 See_Comment [A utomated message] The = Eosinophils #) system whic h generated this result tra nsmitted reference range : <=0.5. The reference r natasha was not used to int erpret this result as normal/abnormal . [facility] HospitalEdtgpvaFIKSOGZCXT8507-97-05 03:40:00 Test Item Value Reference Range Interpretation Comments Basophils # (test code 0.2 See_Comment [Aut omated message] The = Basophils #) system which generated this result tra nsmitted reference range : <=0.2. The reference r natasha was not used to int erpret this result as normal/abnormal . [facility] HospitalFgbpmmrPZVMOJBMAR2039-99-61 03:40:00 Test Item Value Reference Range Interpretation Comments Segs (test code = Segs) 67.1 45.0-75.0 [facility] HospitalPmtuebnOLLUKRKNRJ3121-94-77 03:40:00 Test Item Value Reference Range Interpretation Comments Lymphocytes (test code = Lymphocytes) 26.0 20.0-40.0 [facility] HospitalYxseaviZYNKUENJUF9082-91-51 03:40:00 Test Item Value Reference Range Interpretation Comments Monocytes (test code = Monocytes) 5.3 2.0-12.0 [facility] HospitalQnijirsGPKPRAAVYD6072-87-02 03:40:00 Test Item Value Reference Range Interpretation Comments RDW (test code = RDW) 12.8 11.5-14.5 [facility] HospitalYhflthlDOPHPUMXZU0521-37-89 03:40:00 Test Item Value Reference Range Interpretation Comments Platelet (test code = Platelet) 189 133-450 [facility] HospitalDfzdgttYKYWTBDSKP5430-63-43 03:40:00 Test Item Value Reference Range Interpretation Comments MPV (test code = MPV) 6.1 7.4-10.4 [facility] HospitalUnvuocnQICMUYKZWM5744-56-95 03:40:00 Test Item Value Reference Range Interpretation Comments Hgb (test code = Hgb) 15.9 14.0-18.0 [facility] HospitalTrkrirkGIVGWHDKXB2573-67-80 03:40:00 Test Item Value Reference Range Interpretation Comments Hct (test code = Hct) 45.4 42.0-54.0 [facility] HospitalCmakeuyYVZBXTTVHX7510-17-39 03:40:00 Test Item Value Reference Range Interpretation Comments MCV (test code = MCV) 95.1 80.0-94.0 [facility] HospitalVeonznvWTLASGIDVW0226-29-54 03:40:00 Test Item Value Reference Range Interpretation Comments MCH (test code = MCH) 33.3 pg 27.0-31.0 [facility] HospitalHeoilmcOWUIGIQIEB2792-34-12 03:40:00 Test Item Value Reference Range Interpretation Comments MCHC (test code = MCHC) 35.0 32.0-36.0 [facility] HospitalKvqhkwhFTNSDEQTXQ1720-38-18 03:40:00 Test Item Value Reference Range Interpretation Comments WBC (test code = WBC) 15.6 3.7-10.4 [facility] HospitalPtnyddiUPNTVPCMQL8567-90-75 03:40:00 Test Item Value Reference Range Interpretation Comments RBC (test code = RBC) 4.77 4.70-6.10 [facility] HospitalSajrvcuXBATMDIYGX9397-38-14 03:40:00 Test Item Value Reference Range Interpretation Comments G-value Rapid (test code = G-value 3.7 5.0-11.6 Rapid) [facility] HospitalNvbeifxQCHFMHXMRZ9965-67-49 03:40:00 Test Item Value Reference Range Interpretation Comments Max Amplitude Rapid (test code = Max 42 mm 52-71 Amplitude Rapid) [facility] HospitalGgmosizGIRVGGNFTU3314-19-95 03:40:00 Test Item Value Reference Range Interpretation Comments Estimated % Lysis Rapid 3.4 See_Comment [Au tomated message] The (test code = Estimated syste m which generated % Lysis Rapid) this result t ransmitted reference range : <=7.5. The reference r natasha was not used to int erpret this result as normal/abnormal . [facility] HospitalBlafhyhBGXAUDAPMD2656-63-01 03:40:00 Test Item Value Reference Range Interpretation Comments Split Point Rapid (test code = Split 0.7 min Point Rapid) [facility] HospitalQgmowuoQMNQGXWOON7902-80-24 03:40:00 Test Item Value Reference Range Interpretation Comments R-time Rapid (test code = R-time 1.1 min 0.4-0.7 Rapid) [facility] HospitalXdfprzbESCGSHAKYS7440-77-71 03:40:00 Test Item Value Reference Range Interpretation Comments ACT (TEG) Rapid (test code = ACT (TEG) 152 s 86-118 Rapid) [facility] HospitalXyowrqoJANVXUVLTC6341-99-20 03:40:00 Test Item Value Reference Range Interpretation Comments K-time Rapid (test code = K-time 4.1 min 0.6-2.3 Rapid) [facility] HospitalZmzbzqrKVJEXZNHCG9126-31-04 03:40:00 Test Item Value Reference Range Interpretation Comments Angle Rapid (test code = Angle 48 degrees 64-80 Rapid) [place] [id number] 03:40:00 Test Item Value Reference Range Interpretation Comments Etoh (%) (test code = Etoh (%)) 0.148 [place] [id number] 03:40:00 Test Item Value Reference Range Interpretation Comments Ethanol Lvl (test code = Ethanol Lvl) 148 [facility]inteNzwabikUWAUJIGQNQLI3805-10-10 03:40:00 Test Item Value Reference Range Interpretation Comments AGAP (test code = AGAP) 18.2 10.0-20.0 [facility]inteCyhmsmtJHLHTDBAYLUS4589-32-09 03:40:00 Test Item Value Reference Range Interpretation Comments eGFR (test code = eGFR) 86 [facility]inteGuczjugBQPXCBEGJSDB8421-92-74 03:40:00 Test Item Value Reference Range Interpretation Comments Sodium Lvl (test code = Sodium Lvl) 137 135-145 [facility]inteVrhfovcVTREPGBBMAXP8487-49-73 03:40:00 Test Item Value Reference Range Interpretation Comments CO2 (test code = CO2) 24 24-32 [facility]inteThmzkeqPXAYQGJLEGJF1702-11-53 03:40:00 Test Item Value Reference Range Interpretation Comments Chloride Lvl (test code = Chloride Lvl) 98 95-109 [facility]inteAdkibzwRKDIOMEIPKZI0509-23-37 03:40:00 Test Item Value Reference Range Interpretation Comments Potassium Lvl (test code = Potassium 3.2 3.5-5.1 Lvl) [facility]inteDzavfsuHSWKGCIQUQPB9216-75-18 03:40:00 Test Item Value Reference Range Interpretation Comments BUN (test code = BUN) 14 7-22 [facility]inteSimvajhSJWSGNANCLIK2756-68-37 03:40:00 Test Item Value Reference Range Interpretation Comments Glucose Lvl (test code = Glucose Lvl) 80 70-99 [facility]inteBncbusbFHASOPPSFTPD2243-38-49 03:40:00 Test Item Value Reference Range Interpretation Comments Creatinine Lvl (test code = Creatinine 1.15 0.50-1.40 Lvl) [facility]intePzjuzfyZDJWPCHGKSOB7431-74-42 03:40:00 Test Item Value Reference Range Interpretation Comments Calcium Lvl (test code = Calcium Lvl) 9.0 8.5-10.5 [facility]IywqzdtSNRNACETCT5743-50-90 03:40:00 Test Item Value Reference Range Interpretation Comments Segs-Bands # (test code = Segs-Bands #) 10.5 1.5-8.1 [facility] HospitalBroyjwyHEWULMNAOY6656-11-60 03:40:00 Test Item Value Reference Range Interpretation Comments Eosinophils (test code = 0.5 See_Comment [A utomated message] The Eosinophils) system which ge nerated this result tra nsmitted reference range : <=4.0. The reference r natasha was not used to int erpret this result as normal/abnormal . [facility] HospitalNfqhvgoWARMYFWDXQ0244-03-92 03:40:00 Test Item Value Reference Range Interpretation Comments Basophils (test code = 1.1 See_Comment [Aut omated message] The Basophils) system which ge nerated this result tra nsmitted reference range : <=1.0. The reference r natasha was not used to int erpret this result as normal/abnormal . [facility] HospitalVmebbgdFMKPCJJHJG0873-42-70 03:40:00 Test Item Value Reference Range Interpretation Comments Lymphocytes # (test code = Lymphocytes 4.0 1.0-5.5 #) [facility] HospitalVrbvmoaVQGWLKYQFN9081-39-73 03:40:00 Test Item Value Reference Range Interpretation Comments Monocytes # (test code 0.8 See_Comment [Aut omated message] The = Monocytes #) system which generated this result tra nsmitted reference range : <=0.8. The reference r natasha was not used to int erpret this result as normal/abnormal . [facility] HospitalOzlcxhkZENLSQMHSS3171-59-89 03:40:00 Test Item Value Reference Range Interpretation Comments Eosinophils # (test code 0.1 See_Comment [A utomated message] The = Eosinophils #) system whic h generated this result tra nsmitted reference range : <=0.5. The reference r natasha was not used to int erpret this result as normal/abnormal . [facility] HospitalOtzydunFGDRXEUBHK0158-94-68 03:40:00 Test Item Value Reference Range Interpretation Comments Basophils # (test code 0.2 See_Comment [Aut omated message] The = Basophils #) system which generated this result tra nsmitted reference range : <=0.2. The reference r natasha was not used to int erpret this result as normal/abnormal . [facility] HospitalMnsnvqxZXEGAHGYGO8192-36-77 03:40:00 Test Item Value Reference Range Interpretation Comments Segs (test code = Segs) 67.1 45.0-75.0 [facility] HospitalMcwpklkLXUVBVIFSB5460-16-58 03:40:00 Test Item Value Reference Range Interpretation Comments Lymphocytes (test code = Lymphocytes) 26.0 20.0-40.0 [facility] HospitalRvdkzfpUPCKJZYJHH3925-07-08 03:40:00 Test Item Value Reference Range Interpretation Comments Monocytes (test code = Monocytes) 5.3 2.0-12.0 [facility] HospitalXsuvmciMBZTHOCVQR2077-61-35 03:40:00 Test Item Value Reference Range Interpretation Comments RDW (test code = RDW) 12.8 11.5-14.5 [facility] HospitalJyhyyeyKZCAQEQJWJ9420-23-26 03:40:00 Test Item Value Reference Range Interpretation Comments Platelet (test code = Platelet) 189 133-450 [facility] HospitalLwvhwgbMHOZUDHDUQ9204-54-58 03:40:00 Test Item Value Reference Range Interpretation Comments MPV (test code = MPV) 6.1 7.4-10.4 [facility] HospitalOnaubgnBGRJTLEQHV5313-08-28 03:40:00 Test Item Value Reference Range Interpretation Comments Hgb (test code = Hgb) 15.9 14.0-18.0 [facility] HospitalOnfbcsgOAJYAEXTIQ3656-07-85 03:40:00 Test Item Value Reference Range Interpretation Comments Hct (test code = Hct) 45.4 42.0-54.0 [facility] HospitalKfyhjkkWJVZVFTWFU2092-92-92 03:40:00 Test Item Value Reference Range Interpretation Comments MCV (test code = MCV) 95.1 80.0-94.0 [facility] HospitalWolarycQGEOUJMTXR2994-30-84 03:40:00 Test Item Value Reference Range Interpretation Comments MCH (test code = MCH) 33.3 pg 27.0-31.0 [facility] HospitalKphkjvtSVXZJNUURJ9974-21-90 03:40:00 Test Item Value Reference Range Interpretation Comments MCHC (test code = MCHC) 35.0 32.0-36.0 [facility] HospitalTnuzzmkLWBZRJFYQO9874-12-97 03:40:00 Test Item Value Reference Range Interpretation Comments WBC (test code = WBC) 15.6 3.7-10.4 [facility] HospitalChnvxjeVUBHLJVBLP8783-68-77 03:40:00 Test Item Value Reference Range Interpretation Comments RBC (test code = RBC) 4.77 4.70-6.10 [facility] HospitalTrxpxbaLVPBBDAHPA3307-98-35 03:40:00 Test Item Value Reference Range Interpretation Comments G-value Rapid (test code = G-value 3.7 5.0-11.6 Rapid) [facility] HospitalTipfdcbUKTATUTHJI3165-26-42 03:40:00 Test Item Value Reference Range Interpretation Comments Max Amplitude Rapid (test code = Max 42 mm 52-71 Amplitude Rapid) [facility] HospitalGqptpbqRLYQGHWYLW2311-54-26 03:40:00 Test Item Value Reference Range Interpretation Comments Estimated % Lysis Rapid 3.4 See_Comment [Au tomated message] The (test code = Estimated syste m which generated % Lysis Rapid) this result t ransmitted reference range : <=7.5. The reference r natasha was not used to int erpret this result as normal/abnormal . [facility] HospitalKkqpkhiGHILYWGOEV8726-09-81 03:40:00 Test Item Value Reference Range Interpretation Comments Split Point Rapid (test code = Split 0.7 min Point Rapid) [facility] HospitalQfcboatKHDYFOHYNS6801-72-10 03:40:00 Test Item Value Reference Range Interpretation Comments R-time Rapid (test code = R-time 1.1 min 0.4-0.7 Rapid) [facility] HospitalQcrglttYDYCMKQKTP5812-34-42 03:40:00 Test Item Value Reference Range Interpretation Comments ACT (TEG) Rapid (test code = ACT (TEG) 152 s 86-118 Rapid) [facility] HospitalGzureynTIMDXTUCKW1706-26-89 03:40:00 Test Item Value Reference Range Interpretation Comments K-time Rapid (test code = K-time 4.1 min 0.6-2.3 Rapid) [facility] HospitalGfmaiiiRWBWTIPDBF4294-73-70 03:40:00 Test Item Value Reference Range Interpretation Comments Angle Rapid (test code = Angle 48 degrees 64-80 Rapid) [facility]KgvfqkoBUORNVIZXS9849-58-95 03:40:00 Test Item Value Reference Range Interpretation Comments Etoh (%) (test code = Etoh (%)) 0.148 [facility]KfcwxcnAJZXOOBKTS5123-40-37 03:40:00 Test Item Value Reference Range Interpretation Comments Ethanol Lvl (test code = Ethanol Lvl) [address] [facility] HospitalRqnskoqYPLDDNYGCVVK6006-07-30 03:40:00 Test Item Value Reference Range Interpretation Comments AGAP (test code = AGAP) 18.2 10.0-20.0 [facility]inteFfxnoegAALXDOLTAZKM0136-69-47 03:40:00 Test Item Value Reference Range Interpretation Comments eGFR (test code = eGFR) 86 [facility]inteZrlucusVUCWXURSISIP4674-62-84 03:40:00 Test Item Value Reference Range Interpretation Comments Sodium Lvl (test code = Sodium Lvl) 137 135-145 [facility]inteJwnuhmwTRXZBIQYXQBB5331-55-16 03:40:00 Test Item Value Reference Range Interpretation Comments CO2 (test code = CO2) 24 24-32 [facility]inteVdbcsuvQEUBQPPBKFGR0823-04-84 03:40:00 Test Item Value Reference Range Interpretation Comments Chloride Lvl (test code = Chloride Lvl) 98 95-109 [facility]inteSlkxemsDZARXSZANQLD9110-88-97 03:40:00 Test Item Value Reference Range Interpretation Comments Potassium Lvl (test code = Potassium 3.2 3.5-5.1 Lvl) [facility]inteJavmbhlGIGDCUTGBPYV8687-02-47 03:40:00 Test Item Value Reference Range Interpretation Comments BUN (test code = BUN) 14 7-22 [facility]inteUgosjkhTBMKNRFLYIIZ9425-68-28 03:40:00 Test Item Value Reference Range Interpretation Comments Glucose Lvl (test code = Glucose Lvl) 80 70-99 [facility]inteDbumqadLLCOHYDANPFE4524-83-02 03:40:00 Test Item Value Reference Range Interpretation Comments Creatinine Lvl (test code = Creatinine 1.15 0.50-1.40 Lvl) [facility]inteRvfbuydGDPWPEYAZRPZ2274-61-16 03:40:00 Test Item Value Reference Range Interpretation Comments Calcium Lvl (test code = Calcium Lvl) 9.0 8.5-10.5 [facility] HospitalEuwbwcrLDLHZCNTSQ0370-42-76 03:40:00 Test Item Value Reference Range Interpretation Comments Segs-Bands # (test code = Segs-Bands #) 10.5 1.5-8.1 [facility] HospitalOyyikmvMGRUKHVCML8501-28-21 03:40:00 Test Item Value Reference Range Interpretation Comments Eosinophils (test code = 0.5 See_Comment [A utomated message] The Eosinophils) system which ge nerated this result tra nsmitted reference range : <=4.0. The reference r natasha was not used to int erpret this result as normal/abnormal . [facility] HospitalSxiyeycMAXOHRTVHS4876-69-08 03:40:00 Test Item Value Reference Range Interpretation Comments Basophils (test code = 1.1 See_Comment [Aut omated message] The Basophils) system which ge nerated this result tra nsmitted reference range : <=1.0. The reference r natasha was not used to int erpret this result as normal/abnormal . [facility] HospitalZkyrfpdEUSYNDOITD2097-22-19 03:40:00 Test Item Value Reference Range Interpretation Comments Lymphocytes # (test code = Lymphocytes 4.0 1.0-5.5 #) [facility] HospitalJyvqbtaLQOXUXKBBX7456-49-35 03:40:00 Test Item Value Reference Range Interpretation Comments Monocytes # (test code 0.8 See_Comment [Aut omated message] The = Monocytes #) system which generated this result tra nsmitted reference range : <=0.8. The reference r natasha was not used to int erpret this result as normal/abnormal . [facility] HospitalXricrpwTMHANVPXXY4008-03-17 03:40:00 Test Item Value Reference Range Interpretation Comments Eosinophils # (test code 0.1 See_Comment [A utomated message] The = Eosinophils #) system whic h generated this result tra nsmitted reference range : <=0.5. The reference r natasha was not used to int erpret this result as normal/abnormal . [facility] HospitalLwejiatHEYFLXHZHK6719-10-36 03:40:00 Test Item Value Reference Range Interpretation Comments Basophils # (test code 0.2 See_Comment [Aut omated message] The = Basophils #) system which generated this result tra nsmitted reference range : <=0.2. The reference r natasha was not used to int erpret this result as normal/abnormal . [facility] HospitalNzzifbhRUHQGSXEDK4493-67-71 03:40:00 Test Item Value Reference Range Interpretation Comments Segs (test code = Segs) 67.1 45.0-75.0 [facility] HospitalPmcemdlRDJHYTCJNU8647-98-94 03:40:00 Test Item Value Reference Range Interpretation Comments Lymphocytes (test code = Lymphocytes) 26.0 20.0-40.0 [facility] HospitalEzfmifcOTWEKQUOVN1108-61-06 03:40:00 Test Item Value Reference Range Interpretation Comments Monocytes (test code = Monocytes) 5.3 2.0-12.0 [facility] HospitalPajfoiuFBOUOZWHSD0949-99-28 03:40:00 Test Item Value Reference Range Interpretation Comments RDW (test code = RDW) 12.8 11.5-14.5 [facility] HospitalGmabpceLUQIWZYOHS6517-45-01 03:40:00 Test Item Value Reference Range Interpretation Comments Platelet (test code = Platelet) 189 133-450 [facility] HospitalBlpwptoEOTKVVCEYN4966-93-02 03:40:00 Test Item Value Reference Range Interpretation Comments MPV (test code = MPV) 6.1 7.4-10.4 [facility] HospitalGrybgkbGHHLZKKRMG3947-10-94 03:40:00 Test Item Value Reference Range Interpretation Comments Hgb (test code = Hgb) 15.9 14.0-18.0 [facility] HospitalZjymmuoQGQWXPFMCG0900-41-21 03:40:00 Test Item Value Reference Range Interpretation Comments Hct (test code = Hct) 45.4 42.0-54.0 [facility] HospitalSgbgjcmEJVCPKVRRB0467-48-46 03:40:00 Test Item Value Reference Range Interpretation Comments MCV (test code = MCV) 95.1 80.0-94.0 [facility] HospitalEzifszhWYWLMCOVLM6823-49-50 03:40:00 Test Item Value Reference Range Interpretation Comments MCH (test code = MCH) 33.3 pg 27.0-31.0 [facility] HospitalNdeappfKUGOXTFQRG4157-73-58 03:40:00 Test Item Value Reference Range Interpretation Comments MCHC (test code = MCHC) 35.0 32.0-36.0 [facility] HospitalJcvdtpiWIIBESPRAL3229-00-77 03:40:00 Test Item Value Reference Range Interpretation Comments WBC (test code = WBC) 15.6 3.7-10.4 [facility] HospitalVfifzjbXPFZYDXOCH3580-76-02 03:40:00 Test Item Value Reference Range Interpretation Comments RBC (test code = RBC) 4.77 4.70-6.10 [facility] HospitalScfikujAFHZMCOGUP8806-60-95 03:40:00 Test Item Value Reference Range Interpretation Comments G-value Rapid (test code = G-value 3.7 5.0-11.6 Rapid) [facility] HospitalHnrsmcrRJJASEGTVZ3108-26-28 03:40:00 Test Item Value Reference Range Interpretation Comments Max Amplitude Rapid (test code = Max 42 mm 52-71 Amplitude Rapid) [facility] HospitalKqtikhlFVHRMZKDWO0639-88-94 03:40:00 Test Item Value Reference Range Interpretation Comments Estimated % Lysis Rapid 3.4 See_Comment [Au tomated message] The (test code = Estimated syste m which generated % Lysis Rapid) this result t ransmitted reference range : <=7.5. The reference r natasha was not used to int erpret this result as normal/abnormal . [facility] HospitalYrnerwvREMTZLKQHB8042-89-92 03:40:00 Test Item Value Reference Range Interpretation Comments Split Point Rapid (test code = Split 0.7 min Point Rapid) [facility] HospitalMyvxchnGPTCTKQKOE1823-81-54 03:40:00 Test Item Value Reference Range Interpretation Comments R-time Rapid (test code = R-time 1.1 min 0.4-0.7 Rapid) [facility] HospitalNlwbrmpUHIPTUQUOP2853-34-83 03:40:00 Test Item Value Reference Range Interpretation Comments ACT (TEG) Rapid (test code = ACT (TEG) 152 s 86-118 Rapid) [facility] HospitalWdvciqxGQOUNCRBTN3777-04-13 03:40:00 Test Item Value Reference Range Interpretation Comments K-time Rapid (test code = K-time 4.1 min 0.6-2.3 Rapid) [facility] HospitalRbkxyogMVZPXGROPR7731-74-55 03:40:00 Test Item Value Reference Range Interpretation Comments Angle Rapid (test code = Angle 48 degrees 64-80 Rapid) [facility]GhbekfdJQAJYYYOCG3360-31-93 03:40:00 Test Item Value Reference Range Interpretation Comments Etoh (%) (test code = Etoh (%)) 0.148 [place] [id number] 03:40:00 Test Item Value Reference Range Interpretation Comments Ethanol Lvl (test code = Ethanol Lvl) 148 [facility]XgrldaqPQKDSPOXGZAF7976-83-70 03:40:00 Test Item Value Reference Range Interpretation Comments AGAP (test code = AGAP) 18.2 10.0-20.0 [facility]inteWpobtdgXQYXALTOKCTT5047-98-59 03:40:00 Test Item Value Reference Range Interpretation Comments eGFR (test code = eGFR) 86 [facility]inteHjieviqYHKTUZYHDFWJ1449-96-31 03:40:00 Test Item Value Reference Range Interpretation Comments Sodium Lvl (test code = Sodium Lvl) 137 135-145 [facility]inteLlolzbuIFHVJFGFZRBW6736-46-04 03:40:00 Test Item Value Reference Range Interpretation Comments CO2 (test code = CO2) 24 24-32 [facility]inteExbicwsVWTGQHXNQAXU5526-53-88 03:40:00 Test Item Value Reference Range Interpretation Comments Chloride Lvl (test code = Chloride Lvl) 98 95-109 [facility]inteKvudwhwHHLAWIGQQGJU1132-27-14 03:40:00 Test Item Value Reference Range Interpretation Comments Potassium Lvl (test code = Potassium 3.2 3.5-5.1 Lvl) [id number] 03:40:00 Test Item Value Reference Range Interpretation Comments BUN (test code = BUN) 14 7-22 [id number] 03:40:00 Test Item Value Reference Range Interpretation Comments Glucose Lvl (test code = Glucose Lvl) 80 70-99 [id number] 03:40:00 Test Item Value Reference Range Interpretation Comments Creatinine Lvl (test code = Creatinine 1.15 0.50-1.40 Lvl) [id number] 03:40:00 Test Item Value Reference Range Interpretation Comments Calcium Lvl (test code = Calcium Lvl) 9.0 8.5-10.5 [id number] 03:40:00 Test Item Value Reference Range Interpretation Comments Segs-Bands # (test code = Segs-Bands #) 10.5 1.5-8.1 [id number] 03:40:00 Test Item Value Reference Range Interpretation Comments Eosinophils (test code = 0.5 See_Comment [A utomated message] The Eosinophils) system which ge nerated this result tra nsmitted reference range : <=4.0. The reference r natasha was not used to int erpret this result as normal/abnormal . [facility] [id number] 03:38:00 Test Item Value Reference Range Interpretation Comments ABO/Rh (test code = ABO/Rh) O NEG [facility] [id number] 03:38:00 Test Item Value Reference Range Interpretation Comments Antibody Scrn (test Negative (11/09/16 9:38 code = Antibody Scrn) PM) [facility] [id number] 03:38:00 Test Item Value Reference Range Interpretation Comments ABO/Rh (test code = ABO/Rh) O NEG [facility] [id number] 03:38:00 Test Item Value Reference Range Interpretation Comments Antibody Scrn (test Negative (11/09/16 9:38 code = Antibody Scrn) PM) [facility] [id number] 03:38:00 Test Item Value Reference Range Interpretation Comments ABO/Rh (test code = ABO/Rh) O NEG [facility] [id number] 03:38:00 Test Item Value Reference Range Interpretation Comments Antibody Scrn (test Negative (11/09/16 9:38 code = Antibody Scrn) PM) [facility] [id number] 03:38:00 Test Item Value Reference Range Interpretation Comments ABO/Rh (test code = ABO/Rh) O NEG [facility] [id number] 03:38:00 Test Item Value Reference Range Interpretation Comments Antibody Scrn (test Negative (11/09/16 9:38 code = Antibody Scrn) PM) [facility] [id number] 03:38:00 Test Item Value Reference Range Interpretation Comments ABO/Rh (test code = ABO/Rh) O NEG [facility] [id number] 03:38:00 Test Item Value Reference Range Interpretation Comments Antibody Scrn (test Negative (11/09/16 9:38 code = Antibody Scrn) PM) [facility] [id number] 03:38:00 Test Item Value Reference Range Interpretation Comments ABO/Rh (test code = ABO/Rh) O NEG [facility] [id number] 03:38:00 Test Item Value Reference Range Interpretation Comments Antibody Scrn (test Negative (11/09/16 9:38 code = Antibody Scrn) PM) [facility] [id number] 03:38:00 Test Item Value Reference Range Interpretation Comments ABO/Rh (test code = ABO/Rh) O NEG [facility] [id number] 03:38:00 Test Item Value Reference Range Interpretation Comments Antibody Scrn (test Negative (11/09/16 9:38 code = Antibody Scrn) PM) [facility] [id number] 03:38:00 Test Item Value Reference Range Interpretation Comments ABO/Rh (test code = ABO/Rh) O NEG [facility] [id number] 03:38:00 Test Item Value Reference Range Interpretation Comments Antibody Scrn (test Negative (11/09/16 9:38 code = Antibody Scrn) PM) Jennifer Stanley Notes Date/Time Note Provider Source 2016-12-19 EXAM: XR LEFT ANKLE 2 VIEWS [facility] 12:05:22-00:00 DATE: 12/19/2016 9:22 AM [facility] er INDICATION: Fracture - LT ANKLE POSTOP [...] ally displaced medial and posterior malleolus fractures. 2016-12-19 EXAM: XR LEFT ANKLE 2 VIEWS [facility] 12:05:22-00:00 DATE: 12/19/2016 9:22 AM [facility] er INDICATION: Fracture - LT ANKLE POSTOP [...] 2016-11-18 EXAM: XR LEFT TIBIA-FIBULA [address] [facility] 19:11:00-00:00 EXAM: XR LEFT ANKLE 3 VIEWS [facility] er EXAM: XR LEFT FOOT 3 VIEWS DATE: 11/18/2016 6:58 PM [facility] INDICATION: Pain, Trauma COMPARISON: X-ray left ankle [...] 2016-11-18 EXAM: XR LEFT TIBIA-FIBULA [address] [facility] 19:11:00-00:00 EXAM: XR LEFT ANKLE 3 VIEWS [facility] er EXAM: XR LEFT FOOT 3 VIEWS DATE: 11/18/2016 6:58 PM [facility] INDICATION: Pain, Trauma COMPARISON: X-ray left ankle [...] 2016-11-18 EXAM: XR LEFT TIBIA-FIBULA [address] [facility] 19:11:00-00:00 EXAM: XR LEFT ANKLE 3 VIEWS [facility] er EXAM: XR LEFT FOOT 3 VIEWS DATE: 11/18/2016 6:58 PM [facility] INDICATION: Pain, Trauma COMPARISON: X-ray left ankle [...] 2016-11-18 EXAM: XR LEFT TIBIA-FIBULA [address] [facility] 19:11:00-00:00 EXAM: XR LEFT ANKLE 3 [facility]IEWS [facility] er EXAM: XR LEFT FOOT 3 VIEWS DATE: 11/18/2016 6:58 PM [facility] INDICATION: Pain, Trauma COMPARISON: X-ray left ankle [...] 2016-11-18 EXAM: XR LEFT TIBIA-FIBULA [address] [facility] 19:11:00-00:00 EXAM: XR LEFT ANKLE 3 VIEWS Cent er EXAM: XR LEFT FOOT 3 VIEWS DATE: 11/18/2016 6:58 PM [facility] INDICATION: Pain, Trauma COMPARISON: X-ray left ankle [...] 2016-11-18 EXAM: XR LEFT TIBIA-FIBULA [address] [facility] 19:11:00-00:00 EXAM: XR LEFT ANKLE 3 VIEWS [facility] er EXAM: XR LEFT FOOT 3 VIEWS DATE: 11/18/2016 6:58 PM [facility] INDICATION: Pain, Trauma COMPARISON: X-ray left ankle [...] 2016-11-12 EXAM: XR LEFT ANKLE 3 VIEWS [facility] 08:20:00-00:00 DATE: 11/12/2016 8:13 AM [facility] er INDICATION: Pain and swelling COMPARISON: Left [...] status post closed reduction and external fixation. 2016-11-12 EXAM: XR LEFT ANKLE 3 VIEWS [facility] 08:20:00-00:00 DATE: 11/12/2016 8:13 AM [facility] er INDICATION: Pain and swelling COMPARISON: [...] 2016-11-10 EXAM: XR RIGHT ANKLE [address] [facility] 13:50:30-00:00 EXAM: XR RIGHT foot 3 VIEWS [facility] er DATE: 11/10/2016 1:34 PM [facility] INDICATION: Pain from a fall COMPARISON: None [...] 2016-11-10 EXAM: XR RIGHT ANKLE [address] [facility] 13:50:30-00:00 EXAM: XR RIGHT foot 3 VIEWS Cent er DATE: 11/10/2016 1:34 PM [facility] INDICATION: Pain from a fall COMPARISON: None [...] 2016-11-10 EXAM: XR RIGHT ANKLE [address] [facility] 13:50:30-00:00 EXAM: XR RIGHT foot 3 VIEWS Cent er DATE: 11/10/2016 1:34 PM [facility] INDICATION: Pain from a fall COMPARISON: None [...] 2016-11-10 EXAM: XR RIGHT ANKLE [address] [facility] 13:50:30-00:00 EXAM: XR RIGHT foot 3 VIEWS Cent er DATE: 11/10/2016 1:34 PM [facility] INDICATION: Pain from a fall COMPARISON: None [...] 2016-11-10 EXAM: CT LEFT ANKLE WITHOUT CONTRAST [facility] 10:18:34-00:00 DATE: 11/10/2016 0956 hours Cente r INDICATION: Fracture COMPARISON: Radiographs of the [...] of the left ankle as above . 2016-11-10 EXAM: CT LEFT ANKLE WITHOUT CONTRAST [facility] 10:18:34-00:00 DATE: 11/10/2016 0956 hours Cente r INDICATION: Fracture COMPARISON: Radiographs of the [...] XR LEFT KNEE 3 VIEWS [facility] 23:40:00-00:00 EXAM: XR LEFT TIBIA-FIBULA 2 VIEWS Center EXAM: XR LEFT ANKLE 3 VIEWS EXAM: XR LEFT FOOT 3 VIEWS DATE: 11/09/2016 11:42 PM [facility] INDICATION: Fracture COMPARISON: None TECHNIQUE: AP, lateral [...] 2016-11-09 EXAM: XR LEFT KNEE 3 VIEWS [facility] 23:40:00-00:00 EXAM: XR LEFT TIBIA-FIBULA 2 VIEWS Center EXAM: XR LEFT ANKLE 3 VIEWS EXAM: XR LEFT FOOT 3 VIEWS DATE: 11/09/2016 11:42 PM [facility] INDICATION: Fracture COMPARISON: None TECHNIQUE: AP, lateral [...] 2016-11-09 EXAM: XR LEFT KNEE 3 VIEWS [facility] 23:40:00-00:00 EXAM: XR LEFT TIBIA-FIBULA 2 VIEWS Center EXAM: XR LEFT ANKLE 3 VIEWS EXAM: XR LEFT FOOT 3 VIEWS DATE: 11/09/2016 11:42 PM [facility] INDICATION: Fracture COMPARISON: None TECHNIQUE: AP, lateral [...] 2016-11-09 EXAM: XR LEFT KNEE 3 VIEWS [facility] 23:40:00-00:00 EXAM: XR LEFT TIBIA-FIBULA 2 VIEWS Center EXAM: XR LEFT ANKLE 3 VIEWS EXAM: XR LEFT FOOT 3 VIEWS DATE: 11/09/2016 11:42 PM [facility] INDICATION: Fracture COMPARISON: None TECHNIQUE: AP, lateral [...] 2016-11-09 EXAM: XR LEFT KNEE 3 VIEWS [facility]:40[facility]00-00:00 EXAM: XR LEFT TIBIA-FIBULA 2 VIEWS Center EXAM: XR LEFT ANKLE 3 VIEWS EXAM: XR LEFT FOOT 3 VIEWS DATE: 11/09/2016 11:42 PM [facility] INDICATION: Fracture COMPARISON: None TECHNIQUE: AP, lateral [...] 2016-11-09 EXAM: XR LEFT KNEE 3 VIEWS [facility] 23:40:00-00:00 EXAM: XR LEFT TIBIA-FIBULA 2 VIEWS Center EXAM: XR LEFT ANKLE 3 VIEWS EXAM: XR LEFT FOOT 3 VIEWS DATE: 11/09/2016 11:42 PM [facility] INDICATION: Fracture COMPARISON: None TECHNIQUE: AP, lateral [...] 2016-11-09 EXAM: XR LEFT KNEE 3 VIEWS [facility] 23:40:00-00:00 EXAM: XR LEFT TIBIA-FIBULA 2 VIEWS Center EXAM: XR LEFT ANKLE 3 VIEWS EXAM: XR LEFT FOOT 3 VIEWS DATE: 11/09/2016 11:42 PM [facility] INDICATION: Fracture COMPARISON: None TECHNIQUE: AP, lateral [...] 2016-11-09 EXAM: XR LEFT KNEE 3 VIEWS [facility] 23:40:00-00:00 EXAM: XR LEFT TIBIA-FIBULA 2 VIEWS Center EXAM: XR LEFT ANKLE 3 VIEWS EXAM: XR LEFT FOOT 3 VIEWS DATE: 11/09/2016 11:42 PM [facility] INDICATION: Fracture COMPARISON: None TECHNIQUE: AP, lateral [...] left ankle. 2016-11-09 CT HEAD WITHOUT CONTRAST [facility] 22:20:00-00:00 DATE: 06/20/2017 at 10:14 PM. COMPARISON: [...] 2016-11-09 EXAM: CT CERVICAL SPINE WITHOUT CONTRAST [facility] 22:20:00-:00 DATE: 11/09/2016 9:39 PM [facility] Cente r INDICATION: trauma COMPARISON: None TECHNIQUE: [...] C3-C4. 2016-11-09 EXAM: CT CHEST WITH CONTRAST [facility] 22:20:00-: EXAM: CT ABDOMEN AND PELVIS WITH CONTRAST Center DATE: 11/09/2016 9:40 PM [facility]INE E[employer] INDICATION: trauma COMPARISON: None. TECHNIQUE: Volumetric CT [...] injury. Fatty change of the liver. 2016-11-09 CT HEAD WITHOUT CONTRAST [facility] 22:20:00-:00 DATE: 06/20/2017 at 10:14 PM. COMPARISON: None. [...] 2016-11-09 EXAM: CT CERVICAL SPINE WITHOUT CONTRAST [facility] 22:20:00-00:00 DATE: 11/09/2016 9:39 PM [facility] Cente r INDICATION: trauma COMPARISON: None TECHNIQUE: [...] C3-C4. 2016-11-09 EXAM: CT CHEST WITH CONTRAST [facility] 22:20:00-:00 EXAM: CT ABDOMEN AND PELVIS WITH CONTRAST Center DATE: 11/09/2016 9:40 PM [facility]INE ERECT[facility] INDICATION: trauma COMPARISON: None. TECHNIQUE: Volumetric CT [...] 2016-11-09 EXAM: XR PELVIS AP 1 VIEW [facility] 21:22:00-00:00 DATE: 11/09/2016 2122 hours [facility] Ce nter INDICATION: trauma COMPARISON: None TECHNIQUE: AP pelvis -- single view. FINDINGS: No fracture, periosteal reaction, or erosions id entified. Joint alignment is normal. Degenerative changes of the hips noted. Soft tissues are unremarkable. IMPRESSION: No fractures identified. 2016-11-09 EXAM: XR LEFT ANKLE 3 VIEWS [facility] 21:22:00-00:00 DATE: 11/09/20162121 hours [facility] Ce nter INDICATION: trauma COMPARISON: None available [...] XR CHEST AP 1 VIEW [facility] 21:22:00-00:00 DATE: 11/09/2016 9:28 PM [facility] Cente r INDICATION: trauma COMPARISON: None TECHNIQUE: Chest AP -- 1 View FINDINGS: Cardiac silhouette size is normal. Central pulmonary vascularity is within normal l imits. Mediastinal and hilar contours are normal. No airspace consolidation, pleural effusion, or pneumothorax present. Skeletal structures demonstrate no acute finding s. IMPRESSION: No acute cardiopulmonary abnormality is observed . 2016-11-09 EXAM: XR PELVIS AP 1 VIEW [facility] 21:22:00-00:00 DATE: 11/09/20162121 hours [facility] Ce nter INDICATION: trauma COMPARISON: None TECHNIQUE: AP pelvis -- single view. FINDINGS: No fracture, periosteal reaction, or erosions id entified. Joint alignment is normal. Degenerative changes of the hips noted. Soft tissues are unremarkable. IMPRESSION: No fractures identified. 2016-11-09 EXAM: XR LEFT ANKLE 3 VIEWS [facility] 21:22:00-00:00 DATE: 11/09/20162121 hours [facility] Ce nter INDICATION: trauma COMPARISON: None available [...] 2016-11-09 EXAM: XR CHEST AP 1 VIEW [facility] 21:22:00-00:00 DATE: 11/09/2016 9:28 PM JAMESON kaba INDICATION: trauma COMPARISON: None TECHNIQUE: Chest AP -- 1 View FINDINGS: Cardiac silhouette size is normal. Central pulmonary vascularity is within normal l imits. Mediastinal and hilar contours are normal. No airspace consolidation, pleural effusion, or pneumothorax present. Skeletal structures demonstrate no acute finding s.
[2023-05-24] MEDS ORDERED: LIDOCAINE 1% 20 ML MDV ONE (00:18)
--- NOTE | 2023-05-24 00:30 | ER ---
Nurse's Notes [facility] Name: Bro Yung Age: 58 yrs Sex: Male : 1965 Arrival Date: 05/23/2023 Time: 23:25 Bed 12 Private MD: Diagnosis: Cutaneous abscess of head [any part, except face] Presentation: 05/23 23:52 Chief complaint: Patient states: painful abscess to back of head for 1 week. lg3 Coronavirus screen: Client denies travel out of the [place] in the last 14 days. At this time, the client does not indicate any symptoms associated with coronavirus-19. Ebola Screen: No symptoms or risks identified at this time. Initial Sepsis Screen: Does the patient meet any 2 criteria? No. Patient's initial sepsis screen is negative. Does the patient have a suspected source of infection? No. Patient's initial sepsis screen is negative. Risk Assessment: Do you want to hurt yourself or someone else? Patient reports no desire to harm self or others. Onset of symptoms is unknown. 23:52 Method Of Arrival: Ambulatory lg3 23:52 Acuity: PATRICIO 4 lg3 Triage Assessment: 23:53 General: Appears in no apparent distress. unkempt, Behavior is drowsy, flat. Pain: lg3 Complains of pain in scalp. EENT: No deficits noted. No signs and/or symptoms were reported regarding the EENT system. Neuro: Pittman Agitation-Sedation Scale (RASS): -1 Drowsy Level of Consciousness is obeys commands, Oriented to person, place, time, situation. Cardiovascular: No deficits noted. Denies chest pain, shortness of breath, Capillary refill < 3 seconds Clubbing of nail beds is absent JVD is absent Patient's skin is warm and dry. Respiratory: No deficits noted. Airway is patent Respiratory effort is even, unlabored, Respiratory pattern is regular, symmetrical. GI: No deficits noted. No signs and/or symptoms were reported involving the gastrointestinal system. : No deficits noted. No signs and/or symptoms were reported regarding the genitourinary system. Derm: Skin is intact, has lesions on bilateral forearms Skin is dry, Skin is normal, Skin temperature is warm Abscess located on scalp. Musculoskeletal: No deficits noted. No signs and/or symptoms reported regarding the musculoskeletal system. Circulation, motion, and sensation intact. Range of motion: intact in all extremities. Historical: - Allergies: 23:53 No Known Allergies; lg3 - Home Meds: 23:53 None [Active]; lg3 - PMHx: 23:53 Anxiety; Bipolar disorder; Depression; lg3 - PSHx: 23:53 Ankle; eye; Nose; Tonsillectomy; lg3 - Immunization history:: Adult Immunizations up to date, Client reports having NOT received the Covid vaccine. - Social history:: Smoking status: Patient reports the use of cigarette tobacco products, smokes two packs cigarettes per day. Patient uses alcohol, occasionally. street drugs, marijuana, Methamphetamine (Meth). Screenin/24 00:06 [facility] ED Fall Risk Assessment (Adult) History of falling in the last 3 months, lg3 including since admission No falls in past 3 months (0 pts). Abuse screen: Denies threats or abuse. Denies injuries from another. Nutritional screening: No deficits noted. Tuberculosis screening: No symptoms or risk factors identified. Assessment: 00:05 General: see triage assessment. lg3 Vital Signs: 05/23 23:52 BP 127 / 86; Pulse 89; Resp 17 S; Temp 98.6(O); Pulse Ox 99% on R/A; Weight 58.97 kg lg3 (R); Height 5 ft. 8 in. (R); 23:52 Body Mass Index 19.77 (58.97 kg, 172.72 cm) lg3 ED Course: 23:26 Patient arrived in ED. ag3 23:30 Annie Tello F[facility]-C is [facility] kb 23:30 Chuy Broderick MD is Attending Physician. kb 23:53 Triage completed. lg3 23:53 Arm band placed on right wrist. lg3 05/24 00:06 Patient has correct armband on for positive identification. Bed in low position. Call 3 light in reach. Side rails up X 1. Client placed on continuous cardiac and pulse oximetry monitoring. NIBP monitoring applied. Door closed. Noise minimized. Warm blanket given. 00:06 Patient maintains SpO2 saturation greater than 95% on room air. lg3 00:10 Alejandra Wagner RN is Primary Nurse. lg3 00:47 Assist provider with I \T\ D: of an abscess on Set up I\T\D tray. Performed by Annie as 6 Omer LOPEZ Patient tolerated well. Patient did not have IV access during this emergency room visit. 00:48 Provided Education on: wound care, antibiotic teaching . as6 Administered Medications: 00:25 Drug: Lidocaine Infiltration (1 %) 1 vials {Note: administered by provider .} Volume: 5 as6 ml; Route: Infiltration; 00:48 Follow up: Response: No adverse reaction as6 00:47 Drug: Trimethoprim-Sulfamethoxazole PO (160 mg-800 mg (DS) 1 tablet Route: PO; as6 00:49 Follow up: Response: No adverse reaction as6 00:47 Drug: Ketorolac IM 30 mg Route: IM; Site: right deltoid; as6 00:49 Follow up: Response: No adverse reaction as6 Medication: 00:48 VIS not applicable for this client. as6 Outcome: 00:30 Discharge ordered by . tatum 00:48 Discharged to home ambulatory. as6 00:48 Condition: stable 00:48 Discharge instructions given to patient, Instructed on discharge instructions, follow up and referral plans. medication usage, wound care, Demonstrated understanding of instructions, follow-up care, medications, wound care, Prescriptions given X 1. 00:49 Patient left the ED. as6 Signatures: Annie Tello FNP-C FNP-April Sosa 3 Alejandra Wagner, JESSICA RN lg3 Mulugeta Ramirez RN RN as6
--- NOTE | 2023-05-24 00:30 | EDPHYS ---
Physician Documentation [facility] Name: Bro Yung Age: 58 yrs Sex: Male : 1965 Arrival Date: 05/23/2023 Time: 23:25 Bed 12 Private MD: ED Physician Chuy Broderick HPI: 05/24 00:01 This 58 yrs old Male presents to ER via Ambulatory with complaints of ABCESS. kb 00:01 The patient presents with an abscess of the scalp. Description: erythematous, swollen. kb Onset: The symptoms/episode began/occurred 1 week(s) ago. Possible cause(s): unknown. Associated signs and symptoms: Pertinent positives: erythema, swelling, Pertinent negatives: discharge, drainage, foreign body sensation, fever, headache, nausea, shortness of breath, vomiting. Modifying factors: the symptoms are alleviated by nothing, the symptoms are aggravated by nothing. Severity of symptoms: At their worst the symptoms were moderate, in the emergency department the symptoms are unchanged. The patient has not experienced similar symptoms in the past. The patient has not recently seen a physician. Historical: - Allergies: 05/23 23:53 No Known Allergies; lg3 - Home Meds: 23:53 None [Active]; lg3 - PMHx: 23:53 Anxiety; Bipolar disorder; Depression; lg3 - PSHx: 23:53 Ankle; eye; Nose; Tonsillectomy; lg3 - Immunization history:: Adult Immunizations up to date, Client reports having NOT received the Covid vaccine. - Social history:: Smoking status: Patient reports the use of cigarette tobacco products, smokes two packs cigarettes per day. Patient uses alcohol, occasionally. street drugs, marijuana, Methamphetamine (Meth). ROS: 05/24 00:00 Constitutional: Negative for fever, chills, and weight loss. kb Skin: Positive for abscess, of the scalp. All other systems are negative. Exam: 00:00 Constitutional: This is a well developed, well nourished patient who is awake, alert, kb and in no acute distress. Head/Face: Normocephalic, atraumatic. ENT: Moist Mucous membranes Cardiovascular: Regular rate and rhythm with a normal S1 and S2. No gallops, murmurs, or rubs. No pulse deficits. Respiratory: Respirations even and unlabored. No increased work of breathing. Talking in full sentences MS/ Extremity: Pulses equal, no cyanosis. Neurovascular intact. Full, normal range of motion. Neuro: Awake and alert, GCS 15, oriented to person, place, time, and situation. Moves all extremities. Normal gait. 00:00 Skin: abscess, that is moderate sized, of the scalp, with fluctuance. Vital Signs: 05/23 23:52 BP 127 / 86; Pulse 89; Resp 17 S; Temp 98.6(O); Pulse Ox 99% on R/A; Weight 58.97 kg lg3 (R); Height 5 ft. 8 in. (R); 23:52 Body Mass Index 19.77 (58.97 kg, 172.72 cm) lg3 Procedures: 05/24 00:29 I \T\ D: Incision and drainage was performed for an abscess of the scalp Prepped with Betadine, Anesthetized with 1 ml's 1% Lidocaine. Incised with #11 blade. Drained moderate amount purulent fluid. the patient tolerated the procedure well. MDM: 05/23 23:30 Patient medically screened. kb 05/24 00:01 Data reviewed: vital signs, nurses notes. kb 00:01 Differential diagnosis: abscess, allergic reaction, cellulitis, insect bite. kb 00:29 Counseling: I had a detailed discussion with the patient and/or guardian regarding the kb historical points, exam findings, and any diagnostic results supporting the discharge/admit diagnosis, the need for outpatient follow up, a family practitioner, to return to the emergency department if symptoms worsen or persist or if there are any questions or concerns that arise at home. 05/24 00:07 Order name: I\T\D Setup; Complete Time: 00:10 kb Administered Medications: 00:25 Drug: Lidocaine Infiltration (1 %) 1 vials {Note: administered by provider .} Volume: 5 as6 ml; Route: Infiltration; 00:48 Follow up: Response: No adverse reaction as6 00:47 Drug: Trimethoprim-Sulfamethoxazole PO (160 mg-800 mg (DS) 1 tablet Route: PO; as6 00:49 Follow up: Response: No adverse reaction as6 00:47 Drug: Ketorolac IM 30 mg Route: IM; Site: right deltoid; as6 00:49 Follow up: Response: No adverse reaction as6 Disposition: 01:12 Co-signature as Attending Physician, Chuy Broderick MD I reviewed the patient's care rn provided by the Advanced Practice Provider and agree with the diagnosis and treatment plan. Disposition Summary: 05/24/23 00:30 Discharge Ordered Location: Home kb Condition: Stable kb Diagnosis - Cutaneous abscess of head [any part, except face] kb Followup: kb - With: Emergency Department - When: As needed - Reason: Worsening of condition Followup: kb - With: Private Physician - When: 2 - 3 days - Reason: Recheck today's complaints, Continuance of care, Re-evaluation by your physician Discharge Instructions: - Discharge Summary Sheet kb - Skin Abscess, [id number] kb - Incision and Drainage, Care After kb Forms: - Medication Reconciliation Form kb - Thank You Letter kb - Antibiotic Education kb - Prescription Opioid Use kb - Patient Portal Instructions kb - Leadership Thank You Letter kb Prescriptions: - Bactrim DS 800-160 mg Oral Tablet - take 1 tablet by ORAL route every 12 hours for 10 days; 20 tablet; Refills: 0, kb Product Selection Permitted Signatures: Annie Tello, PATIENT SCHEDULING COORDINATOR-C PATIENT SCHEDULING COORDINATOR-Ckb Chuy Broderick MD MD rn Gibson, Lacie, RN RN lg3 Mulugeta Ramirez, RN RN as6
[2023-05-24] MEDS ORDERED: SMZ./TMP. 800/160 MG TABLET ONE (00:48)
[2023-05-24] MEDS ORDERED: KETOROLAC 30 MG/ML INJ ONE (00:48)
[2023-05-24 02:05] VITALS: BP 127/86; TEMP 98.6; O2SAT 99
== END 2023-05-24 00:49 | disposition home or self-care (01) ==
LOC: ER 23:25
PROC: 0H90XZZ Drainage of Scalp Skin, External Approach (ICD-10-PCS; principal; 2023-05-24)
DX: L02.811 Cutaneous abscess of head [any part, except face] (principal); F17.210 Nicotine dependence, cigarettes, uncomplicated
CPT/HCPCS: 96372; 99285; 10060; J2001

== ENCOUNTER 2023-05-28 15:29 | Emergency (ER) | payer OTHER ==
--- OUTSIDE RECORDS SUMMARY | 2023-05-28 15:46 | XMS REPORT | Continuity of Care Document ---
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 2021-10- No [id number] 17g Take 17 g Univers e glycol - by mouth ity of 3350 17 00:00: 04:59 in the [place] gram/dose 00 :00 morning Medical powder and 17 g Branch in the evening. Do all this for 7 days. cephALEXin 2021- No [id number] 500mg Take 1 Univers 500 mg 06-08- [id number] capsule by ity of capsule 00:00: 04:59 mouth 4 [place] 00 :00 (four) Medical times Branch daily for 7 days. aspirin Yes 81mg 81 mg, Univers chewable 05-28 Oral, ity of tablet 81 14:00: DAILY, [place] mg 00 First dose Medical on [facility] 05/28/22 at 0900, Until Discontinu ed, Routine enoxaparin Yes 40mg 40 mg, Unive rs (LOVENOX) 05-28 Subcutaneo ity of injection 14:00: us, DAILY, [place] 40 mg 00 First dose Medical on [facility] 05/28/22 at 0900, Until Discontinu ed, Routine aspirin 2021- No 325mg 325 mg, Unive rs tablet 325 05-28 Oral, ity of mg 14:00: 23:23 DAILY, [place] 00 :25 First dose Medical on [place] Branch 05/28/22 at 0900, Until Discontinu ed, Routine NaCl 0.9% Yes 1000mL at 100 [facility] ers (NS) IV 05-28 mL/hr, IV ity of infusion 05:00: Infusion, [place] 1,000 mL 00 CONTINUOUS Medic al , Starting Branch on [place] 05/28/22 at 0000, Until Discontinu ed, Routine [...] tablet 5 mg 00 :00 dose, On [facility] Branch 05/27/22 at 2230, Routine atorvastati 2021- No 40mg 40 mg, Uni vers n (LIPITOR) 05-28 Oral, ity of tablet 40 03:30: 03:46 ONCE, 1 [place] mg 00 :00 dose, On Medical [facility] Branch 05/27/22 at 2230, Routine HYDROcodone 2021-0 Yes 1{tbl} 1 tablet, Univers -acetaminop 05-28 [...] Until Discontinu ed, Routine morpHINE (2 2021- No 2mg 2 mg, Slow Univers mg/mL) 05-27 IV Push, ity of injection 2 23:12: 23:11 Q4HPRN, [place] mg 46 :46 Starting Medical on [place] Branch 05/27/22 at 1812, Until 05/28/22 at 181, Routine, Pain (scale 7-10) acetaminoph 0 2021- No 1{tbl} 1 tablet, Univers en-codeine 05-27 Oral, ity of (TYLENOL 23:12: 23:11 Q6HPRN, [place] #3) 300-30 44 :44 Starting Medic al mg tablet 1 on [facility] Branch tablet 05/27/22 at 1812, Until 05/29/22 at 181, Routine, Pain (scale 4-6) acetaminoph 0 Yes 650mg 650 mg, Un whit en 05-27 Oral, ity of (TYLENOL) 23:12: Q6HPRN, [place] tablet 650 41 Starting Medic al mg on [facility] Branch 05/27/22 at 1812, Until Discontinu ed, Routine, Pain (scale 1-3) NaCl 0.9% 2021- No 1000mL at 999 Uni vers (NS) bolus 05-27 mL/hr, ity of infusion 19:15: 19:13 1,000 mL, [place] as 1,000 mL 00 :00 IV Medical Infusion, Center ONCE, 1 dose, On [facility] 05/27/22 at 1415, STAT No known No No known Unive rs medications 05-27 medication it y of 17:59: s [place] 39 [facility] Branch neomycin-po 2020-10 Yes [id number] 3[drp] Place 3 Univers lymyxin-hyd 2-28 Drops in ity of rocortisone 00:00: right ear [place] 3.5-10,000- 00 4 (four) Medi mele 1 times Branch mg/mL-unit/ daily. mL-% otic susp ibuprofen 2020-10 Yes [id number] 600mg Take 1 Univers 600 mg 2-28 tablet by ity of tablet 00:00: mouth [place] 00 every 6 Medical (six) Branch hours as needed for Pain (scale 4-6). neomycin-po 2020-10 Yes [id number] 3[drp] Place 3 Univers lymyxin-hyd 2-28 Drops in ity of rocortisone 00:00: right ear [place] 3.5-10,000- 00 4 (four) Medi mele 1 times Branch mg/mL-unit/ daily. mL-% otic susp ibuprofen 2020-10 Yes [id number] 600mg Take 1 Univers 600 mg 2-28 tablet by ity of tablet 00:00: mouth [place] 00 every 6 Medical (six) Branch hours as needed for Pain (scale 4-6). neomycin-po 2020-10- No [id number] 3[drp] Place 3 Univers lymyxin-hyd 2-28 05- Drops in ity of rocortisone 00:00: 00:00 right ear [place] 3.5-10,000- 00 :00 4 (four) Medi mele 1 times Branch mg/mL-unit/ daily. mL-% otic susp ibuprofen 2020-10- No [id number] 600mg Take 1 Univers 600 mg -05-28 tablet by ity of tablet 00:00: 00:00 mouth [place] 00 :00 every 6 Medical (six) Branch hours as needed for Pain (scale 4-6). HYDROcodone Yes 1{tbl} Take 1 [place] rris -acetaminop 5-02 tablet by [facility] hen (Medivo) 10:06: mouth 10-325 mg 05 every 6 tablet hours as needed for Pain. HYDROcodone Yes 1{tbl} Take 1 [place] rris -acetaminop 5-02 tablet by [facility] hen (Medivo) 10:06: mouth 10-325 mg 05 every 6 tablet hours as needed for Pain. baclofen Yes Chronic 10mg Take 1 [place] is (LIORESAL) 5-02 back pain, tablet by [facility] 10 mg 00:00: unspecified mouth 3 tablet [...] is (LIORESAL) 5-02 back pain, tablet by [facility] 10 mg 00:00: unspecified mouth 3 tablet 00 back times location, daily. unspecified back pain laterality gabapentin Yes Chronic 400mg Take 1 H arris (NEURONTIN) 502 back pain, capsule by [facility] 400 mg 00:00: unspecified mouth 3 capsule 00 back times location, daily. unspecified back pain laterality albuterol Yes Uncomplicat 2{puff} Inhale 2 Kahn (VENTOLIN -02 ed asthma, Puffs by [facility] HFA,PROVENT 00:00: unspecified mouth 4 [place] 00 asthma times HFA,PROAIR severity daily as HFA) 90 needed for mcg/actuati Wheezing. on inhaler acetaminoph Yes S/P ORIF 1{tbl} Take 1 Kahn en-codeine 3-29 (open tablet by [facility] (TYLENOL/CO 00:00: reduction mouth DEINE #3) 00 internal every 6 300-30 mg fixation) hours as per tablet fracture needed for Pain. acetaminoph Yes S/P ORIF 1{tbl} Take 1 Kahn en-codeine 3-29 (open tablet by [facility] (TYLENOL/CO 00:00: reduction mouth DEINE #3) 00 internal every 6 300-30 mg fixation) hours as per tablet fracture needed for Pain. acetaminoph Yes S/P ORIF 1{tbl} Take 1 [place]ahn en-codeine 3-29 (open tablet by [facility] (TYLENOL/CO 00:00: reduction mouth DEINE #3) 00 internal every 6 300-30 mg fixation) hours as per tablet fracture needed for Pain. acetaminoph Yes S/P ORIF 1{tbl} Take 1 Kahn en-codeine 3-29 (open tablet by [facility] (TYLENOL/CO 00:00: reduction mouth DEINE #3) 00 internal every 6 300-30 mg fixation) hours as per tablet fracture needed for Pain. acetaminoph Yes S/P ORIF 1{tbl} Take 1 Kahn en-codeine 3-29 (open tablet by [facility] (TYLENOL/CO 00:00: reduction mouth DEINE #3) 00 internal every 6 300-30 mg fixation) hours as per tablet fracture needed for Pain. naproxen 2016-0 Yes Pain in 500mg Q.5D Take 1 Kareem ris (NAPROSYN) 3 left foot tablet by [facility] 500 mg 00:00: mouth 2 tablet 00 times daily (with meals). miconazole 2016- Yes Tinea Q.5D Apply to Gorman rris (MICOTIN) 2 3 cruris affected He alth % topical 00:00: area 2 cream 00 times daily. naproxen 2016-0 Yes Pain in 500mg Q.5D Take 1 Kareem ris (NAPROSYN) 3 left foot tablet by [facility] 500 mg 00:00: mouth 2 tablet 00 times daily (with meals). miconazole 2016- Yes Tinea Q.5D Apply to G[place] rris (MICOTIN) 2 3 cruris affected He alth % topical 00:00: area 2 cream 00 times daily. naproxen 2016- Yes Pain in 500mg Q.5D Take 1 Kareem ris (NAPROSYN) 3 left foot tablet by [facility] 500 mg 00:00: mouth 2 tablet 00 times daily (with meals). miconazole 2016- Yes Tinea Q.5D Apply to G[place] rris (MICOTIN) 2 3 cruris affected He alth % topical 00:00: area 2 cream 00 times daily. naproxen 2016- Yes Pain in 500mg Q.5D Take 1 Kareem ris (NAPROSYN) 3 left foot tablet by [facility] 500 mg 00:00: mouth 2 tablet 00 times daily (with meals). miconazole 2016-0 Yes Tinea Q.5D Apply to G[place] rris (MICOTIN) 2 3- cruris affected He alth % topical 00:00: area 2 cream 00 times daily. naproxen 2016-0 Yes Pain in 500mg Q.5D Take 1 Kareem ris (NAPROSYN) 3 left foot tablet by [facility] 500 mg 00:00: mouth 2 tablet 00 times daily (with meals). miconazole 2016- Yes Tinea Q.5D Apply to [place] rris (MICOTIN) 2 3- cruris affected He alth % topical 00:00: area 2 cream 00 times daily. remove 2016-0 No 1 patch, Memoria patch 12-21 Route: l 02:00: TOP, Drug [place] 00 form: ERFILM, Bedtime, Start date: 12/20/16 21:00:00 CDT, Duration: 30 day, Stop date: 01/18/17 21:00:00 CDT remove 2016-0 No 1 patch, Memoria patch 12-21 Route: l 02:00: TOP, Drug [place] 00 form: ERFILM, Bedtime, Start date: 12/20/16 21:00:00 CDT, Duration: 30 day, Stop date: 01/18/17 21:00:00 CDT remove 2016-0 No 1 patch, Memoria patch 12-21 Route: l 02:00: TOP, Drug [place] 00 form: ERFILM, Bedtime, Start date: 12/20/16 21:00:00 CDT, Duration: 30 day, Stop date: 01/18/17 21:00:00 CDT remove 2016-0 No 1 patch, Memoria patch 12-21 Route: l 02:00: TOP, Drug [place] 00 form: ERFILM, Bedtime, Start date: 12/20/16 21:00:00 CDT, Duration: 30 day, Stop date: 01/18/17 21:00:00 CDT remove 2016-0 No 1 patch, Memoria patch 12-21 Route: l 02:00: TOP, Drug [place] 00 form: ERFILM, Bedtime, Start date: 12/20/16 21:00:00 CDT, Duration: 30 day, Stop date: 01/18/17 21:00:00 CDT remove 2016-0 No 1 patch, Memoria patch 12-21 Route: l 02:00: TOP, Drug [place] 00 form: ERFILM, Bedtime, Start date: 12/20/16 21:00:00 CDT, Duration: 30 day, Stop date: 01/18/17 21:00:00 CDT remove 2016-0 No 1 patch, Memoria patch 12-21 Route: [...] MG Oral severe Tablet pain, # 60 [[place] tab, 0 10/325] Refill(s) Acetaminoph Yes 1-2 nicho, M emoria en 325 MG / 3-22 PO, Q4H, l Hydrocodone 19:17: PRN as Herm vivian Bitartrate 00 needed for 10 MG Oral severe Tablet pain, # 60 [[place] tab, 0 10/325] Refill(s) Acetaminoph Yes 1-2 nicho, M emoria en 325 MG / 3-22 PO, Q4H, l Hydrocodone 19:17: PRN as [place] vivian Bitartrate 00 needed for 10 MG Oral severe Tablet pain, # 60 [[place] tab, 0 10/325] Refill(s) Acetaminoph Yes 1-2 nicho, M emoria en 325 MG / 3-22 PO, Q4H, l Hydrocodone 19:17: PRN as Herm vivian Bitartrate 00 needed for 10 MG Oral severe Tablet pain, # 60 [[place] tab, 0 10/325] Refill(s) Acetaminoph Yes 1-2 nicho, M emoria en 325 MG / 3-22 PO, Q4H, l Hydrocodone 19:17: PRN as Herm vivian Bitartrate 00 needed for 10 MG Oral severe Tablet pain, # 60 [[place] tab, 0 10/325] Refill(s) Acetaminoph 2017- Yes 1-2 nicho, M emoria en 325 MG / 3-22 PO, Q4H, l Hydrocodone 19:17: PRN as [place] vivian Bitartrate 00 needed for 10 MG Oral severe Tablet pain, # 60 [[place] tab, 0 10/325] Refill(s) Acetaminoph 2017 Yes 1-2 nicho, M emoria en 325 MG / 3-22 PO, Q4H, l Hydrocodone 19:17: PRN as Herm vivian Bitartrate 00 needed for 10 MG Oral severe Tablet pain, # 60 [[place] tab, 0 10/325] Refill(s) Acetaminoph Yes 1-2 nicho, M emoria en 325 MG / 3-22 PO, Q4H, l Hydrocodone 19:17: PRN as [place] vivian Bitartrate 00 needed for 10 MG Oral severe Tablet pain, # 60 [[place] tab, 0 10/325] Refill(s) Acetaminoph Yes 1-2 nicho, M emoria en 325 MG / 3-22 PO, Q4H, l Hydrocodone 19:17: PRN as [place] vivian Bitartrate 00 needed for 10 MG Oral severe Tablet pain, # 60 [[place] tab, 0 10/325] Refill(s) ropivacaine No Notes: Raad kenna 3- Final l 18:25: concentrat [place] 00 ion: Ropivacain e 0.2% 400 ml ropivacaine No Notes: Raad kenna 3-22 Final l 18:25: concentrat [place] 00 ion: Ropivacain e 0.2% 400 ml [...] oria 3-22 to exceed l 12:00: 400mg/day. (Same As: Ultram) gabapentin No Notes: Memor ia 3-22 (Same as: l 12:00: Neurontin) Tramadol No Notes: Not Mem oria 3-22 to exceed l 12:00: 400mg/day. [place] 00 (Same As: Ultram) gabapentin No Notes: Memor ia 3-22 (Same as: l 12:00: Neurontin) Tramadol No Notes: Not Mem oria 3-22 to exceed l 12:00: 400mg/day. [place] 00 (Same As: Ultram) gabapentin No Notes: Memor ia 3-22 (Same as: l 12:00: Neurontin) [place] 00 Tramadol 2016-0 No Notes: Not Mem oria 3-22 to exceed l 12:00: 400mg/day. [place] 00 (Same As: Ultram) gabapentin [id number] No Notes: Memor ia 3-22 (Same as: l 12:00: Neurontin) [place] 00 Tramadol 0 No Notes: Not Mem oria 3-22 to exceed l 12:00: 400mg/day. [place] 00 (Same As: Ultram) gabapentin No Notes: Memor ia 3-22 (Same as: l 12:00: Neurontin) [place] 00 Tramadol 0 No Notes: Not Mem oria 3-22 to exceed l 12:00: 400mg/day. [place] 00 (Same As: Ultram) gabapentin No Notes: Memor ia 3-22 (Same as: l 12:00: Neurontin) [place] 00 Tramadol 0 No Notes: Not Mem oria 3-22 to exceed l 12:00: 400mg/day. [place] 00 (Same As: Ultram) gabapentin No Notes: Memor ia 3-22 (Same as: l 12:00: Neurontin) [place] 00 Tramadol 0 No Notes: Not Mem oria 3-22 to exceed l 12:00: 400mg/day. [place] 00 (Same As: Ultram) gabapentin 0 No Notes: Memor ia 3-22 (Same as: l 12:00: Neurontin) [place] 00 Tramadol 0 No Notes: Not Mem oria 3-22 to exceed l 12:00: 400mg/day. [place] 00 (Same As: Ultram) gabapentin No Notes: Memor ia 3-22 (Same as: l 12:00: Neurontin) [place] 00 Lovenox 2017-0 No Notes: Memoria 3-22 (Same as: l 09:00: Lovenox) [place] 00 Lovenox 2016-0 No Notes: [place] 3-22 (Same as: l 09:00: Lovenox) [place] 00 Lovenox 2016-0 No Notes: Memoria 3-22 (Same as: l 09:00: Lovenox) [place] Lovenox 2017-0 No Notes: [facility] 3-22 (Same as: l 09:00: Lovenox) [place] Lovenox 2017-0 No Notes: [place] 3-22 (Same as: l 09:00: Lovenox) [place] Lovenox No Notes: Memoria 3-22 (Same as: l 09:00: Lovenox) [place] 00 Lovenox No Notes: [facility]oria 3-22 (Same as: l 09:00: Lovenox) [place] Lovenox No Notes: Memoria 3-22 (Same as: l 09:00: Lovenox) [place] 00 Lovenox No Notes: Memoria 3-22 (Same as: l 09:00: Lovenox) [place] 00 Trazodone No Notes: Memori a 3-22 (Same As: l 06:45: Desyrel) [place] 00 Trazodone No Notes: Memori a 3-22 (Same As: l 06:45: Desyrel) [place] 00 Trazodone No Notes: Memori a 3-22 (Same As: l 06:45: Desyrel) [place] 00 Trazodone No Notes: Memori a 3-22 (Same As: l 06:45: Desyrel) [place] 00 Trazodone No Notes: Memori a 3-22 (Same As: l 06:45: Desyrel) [place] 00 Trazodone No Notes: Memori a 3-22 (Same As: l 06:45: Desyrel) [place] 00 Trazodone No Notes: Memori a 3-22 (Same As: l 06:45: Desyrel) [place] 00 Trazodone No Notes: Memori a 3-22 (Same As: l 06:45: Desyrel) [place] 00 Trazodone No Notes: Memori a 3-22 (Same As: l 06:45: Desyrel) [place] 00 Cefazolin No Notes: Memori a 3-21 (Same As: l 23:00: Ancef, [place] Kefzol) Cefazolin FOR IV SET ONLY MEDICATION WASTE Product Size: 1000 mg Product Wasted: _0__ mg Cefazolin No Notes: Memori a 12-19 (Same As: l 23:00: Ancef, [place] 00 Kefzol) Cefazolin FOR IV SET ONLY MEDICATION WASTE Product Size: 1000 mg Product Wasted: _0__ mg Cefazolin No Notes: Memori a 12-19 (Same As: l 23:00: Ancef, [place] 00 Kefzol) Cefazolin FOR IV SET ONLY MEDICATION WASTE Product Size: 1000 mg Product Wasted: _0__ mg Cefazolin No Notes: Memori a 12-19 (Same As: l 23:00: Ancef, [place] 00 Kefzol) Cefazolin FOR IV SET ONLY MEDICATION WASTE Product Size: 1000 mg Product Wasted: _0__ mg Cefazolin No Notes: Memori a 12-19 (Same As: l 23:00: Ancef, [place] 00 Kefzol) Cefazolin FOR IV SET ONLY MEDICATION WASTE Product Size: 1000 mg Product Wasted: _0__ mg Cefazolin No Notes: Memori a 12-19 (Same As: l 23:00: Ancef, [place] 00 Kefzol) Cefazolin FOR IV SET ONLY MEDICATION WASTE Product Size: 1000 mg Product Wasted: _0__ mg Cefazolin No Notes: Memori a 12-19 (Same As: l 23:00: Ancef, [place] 00 Kefzol) Cefazolin FOR IV SET ONLY MEDICATION WASTE Product Size: 1000 mg Product Wasted: _0__ mg Cefazolin No Notes: Memori a 12-19 (Same As: l 23:00: Ancef, [place] 00 [...] (Same as: l MG Oral 22:00: Colace) [place] Capsule Docusate No Notes: Memoria Sodium 100 3-21 (Same as: l MG Oral 22:00: Colace) [place] Capsule Docusate No Notes: Memoria Sodium 100 3-21 (Same as: l MG Oral 22:00: Colace) [place] Capsule Docusate No Notes: Memoria Sodium 100 3-21 (Same as: l MG Oral 22:00: Colace) [place] Capsule 00 Docusate No Notes: Memoria Sodium 100 3-21 (Same as: l MG Oral 22:00: Colace) [place] Capsule 00 Docusate No Notes: Memoria Sodium 100 3-21 (Same as: l MG Oral 22:00: Colace) [place] Capsule 00 Docusate No Notes: Memoria Sodium 100 3-21 (Same as: l MG Oral 22:00: Colace) [place] Capsule Docusate No Notes: Memoria Sodium 100 [...] date: 12/19/16 14:22:00 CDT, 1.73 ml INV 2017-0 No IVP, 0 Memoria Sugammadex/ 3-21 ml/hr, l Placebo inj 19:22: ONCE, Naye nn syringe 00 Start date: 12/19/16 14:22:00 CDT, 1.73 ml INV 2017-0 No IVP, 0 Memoria Sugammadex/ 3-21 ml/hr, l Placebo inj 19:22: ONCE, Naye nn syringe Start date: 12/19/16 14:22:00 CDT, 1.73 ml INV 2017-0 No IVP, 0 Memoria Sugammadex/ 3-21 ml/hr, l Placebo inj 19:22: ONCE, Naye nn syringe Start date: 12/19/16 14:22:00 CDT, 1.73 ml INV 2017 No IVP, 0 Memoria Sugammadex/ 3-21 ml/hr, l Placebo inj 19:22: ONCE, Naye nn syringe Start date: 12/19/16 14:22:00 CDT, 1.73 ml INV No IVP, 0 Memoria Sugammadex/ 3-21 ml/hr, l Placebo inj 19:22: ONCE, Naye nn syringe Start date: 12/19/16 14:22:00 CDT, 1.73 ml INV [id number] No IVP, 0 Memoria Sugammadex/ 3-21 ml/hr, l Placebo inj 19:22: ONCE, Naye nn syringe Start date: 12/19/16 14:22:00 CDT, 1.73 ml INV 0 No IVP, 0 Memoria Sugammadex/ 3-21 ml/hr, l Placebo inj 19:22: ONCE, Naye nn syringe Start date: 12/19/16 14:22:00 CDT, 1.73 ml ropivacaine 2017-0 No Notes: Raad kenna 3-21 Same as: l 18:55: Naropin [place] 00 ropivacaine 2017-0 No Notes: Raad kenna 3-21 Same as: l 18:55: Naropin [place] 00 ropivacaine 2017-0 No Notes: Raad kenna 3-21 Same as: l 18:55: Naropin [place] 00 ropivacaine 2017-0 No Notes: Raad kenna 3-21 Same as: l 18:55: Naropin [place] 00 ropivacaine 2017-0 No Notes: Raad kenna 3-21 Same as: l 18:55: Naropin [place] 00 ropivacaine 2017-0 No Notes: Raad kenna 3-21 Same as: l 18:55: Naropin [place] 00 ropivacaine 2017-0 No Notes: Raad kenna 3-21 Same as: l 18:55: Naropin [place] 00 ropivacaine 2017-0 No Notes: Raad kenna 3-21 Same as: l 18:55: Naropin [place] 00 ropivacaine 2017-0 No Notes: Raad kenna 3-21 Same as: l 18:55: Naropin [place] 00 ropivacaine 2017-0 No Route: Raad kenna 3-21 NERVE l 18:41: BLOCK, [place] 00 Continuous Rate: 6, ml/hr, Dosing Site: [...] Raad kenna 3-21 NERVE l 18:41: BLOCK, [place] 00 Continuous Rate: 6, ml/hr, Dosing Site: [...] Raad kenna 3-21 NERVE l 18:41: BLOCK, [place] 00 Continuous Rate: 6, ml/hr, Dosing Site: [...] Raad kenna 3-21 NERVE l 18:41: BLOCK, [place] 00 Continuous Rate: 6, ml/hr, Dosing Site: Sciatic popliteal Side: Left, 1 Hour limit: 6 mL, 200, mL, Start date: 12/19/16 13:41:00 CDT, Duration: 30, day, Total volume: 200, mL, Weight 86.364, kg, Stop date: 01/18/17 13:40:00 CDT Enoxaparin No Notes: Memor ia 3-21 (Same as: l 18:00: Lovenox) [place] 00 Enoxaparin No Notes: Memor ia 3-21 (Same as: l 18:00: Lovenox) [place] 00 Enoxaparin No Notes: Memor ia 3-21 (Same as: l 18:00: Lovenox) Enoxaparin No Notes: Memor ia 3-21 (Same as: l 18:00: Lovenox) Enoxaparin No Notes: Memor ia 3-21 (Same as: l 18:00: Lovenox) [place] 00 Enoxaparin No Notes: Memor ia 3-21 (Same as: l 18:00: Lovenox) Enoxaparin No Notes: Memor ia 3-21 (Same as: l 18:00: Lovenox) Enoxaparin No Notes: Memor ia 3-21 (Same as: l 18:00: Lovenox) Enoxaparin No Notes: Memor ia 3-21 (Same as: l 18:00: Lovenox) Ondansetron No Notes: Raad kenna 3-21 (Same as: l 17:52: Zofran) [place] 00 MEDICATION WASTE Product Size: 4 mg Product Wasted: _0__ mg Morphine No Notes: Memoria 3-21 (Same l 17:52: as:MORPhin [place] 00 e Sulfate) Acetaminoph No Notes: Raad kenna en 325 MG / 3-21 (Same as: l Hydrocodone 17:52: [place] Naye nn Bitartrate 00 325/10) 10 MG Oral Tablet Acetaminoph No Notes: Raad kenna en 325 MG / 3-21 (Same as: l Hydrocodone 17:52: [place] Naye nn Bitartrate 00 325/5) 5 MG Oral Tablet Ondansetron No Notes: Raad kenna 3-21 (Same as: l 17:52: Zofran) [place] 00 MEDICATION WASTE Product Size: 4 mg Product Wasted: _0__ mg Morphine No Notes: Memoria 3-21 (Same l 17:52: as:MORPhin [place] 00 e Sulfate) Acetaminoph No Notes: Raad kenna en 325 MG / 3-21 (Same as: l Hydrocodone 17:52: [place] Naye nn Bitartrate 00 325/10) 10 MG Oral Tablet Acetaminoph No Notes: Raad kenna en 325 MG / 3-21 (Same as: l Hydrocodone 17:52: [place] Naye nn Bitartrate 00 325/5) 5 MG Oral Tablet Ondansetron No Notes: Raad kenna 3-21 (Same as: l 17:52: Zofran) [place] 00 MEDICATION WASTE Product Size: 4 mg Product Wasted: _0__ mg Morphine No Notes: Memoria 3-21 (Same l 17:52: as:MORPhin [place] 00 e Sulfate) Acetaminoph No Notes: Raad kenna en 325 MG / 3-21 (Same as: l Hydrocodone 17:52: [place] Naye nn Bitartrate 00 325/10) 10 MG Oral Tablet Acetaminoph No Notes: Raad kenna en 325 MG / 3-21 (Same as: l Hydrocodone 17:52: [place] Naye nn Bitartrate 00 325/5) 5 MG Oral Tablet Ondansetron No Notes: Raad kenna 3-21 (Same as: l 17:52: Zofran) [place] 00 MEDICATION WASTE Product Size: 4 mg Product Wasted: _0__ mg Morphine No Notes: Memoria 3-21 (Same l 17:52: as:MORPhin [place] 00 e Sulfate) Acetaminoph No Notes: Raad kenna en 325 MG / 3-21 (Same as: l Hydrocodone 17:52: [place] Naye nn Bitartrate 00 325/10) 10 MG Oral Tablet Acetaminoph No Notes: Raad kenna en 325 MG / 3-21 (Same as: l Hydrocodone 17:52: [place] Naye nn Bitartrate 00 325/5) 5 MG Oral Tablet Ondansetron No Notes: Raad kenna 3-21 (Same as: l 17:52: Zofran) [place] 00 MEDICATION WASTE Product Size: 4 mg Product Wasted: _0__ mg Morphine No Notes: Memoria 3-21 (Same l 17:52: as:MORPhin [place] 00 e Sulfate) Acetaminoph No Notes: Raad kenna en 325 MG / 3-21 (Same as: l Hydrocodone 17:52: [place] Naye nn Bitartrate 00 325/10) 10 MG Oral Tablet Acetaminoph No Notes: Raad kenna en 325 MG / 3-21 (Same as: l Hydrocodone 17:52: [place] Naye nn Bitartrate 00 325/5) 5 MG Oral Tablet Ondansetron No Notes: Raad kenna 3-21 (Same as: l 17:52: Zofran) Jaden 00 MEDICATION WASTE Product Size: 4 mg Product Wasted: _0__ mg Morphine No Notes: Memoria 3-21 (Same l 17:52: as:MORPhin Jaden 00 e Sulfate) Acetaminoph No Notes: Raad kenna en 325 MG / 3-21 (Same as: l Hydrocodone 17:52: [place] Naye nn Bitartrate 00 325/10) 10 MG Oral Tablet Acetaminoph No Notes: Raad kenna en 325 MG / 3-21 (Same as: l Hydrocodone 17:52: [place] Naye nn Bitartrate 00 325/5) 5 MG Oral Tablet Ondansetron No Notes: Raad kenna 3-21 (Same as: l 17:52: Zofran) Jaden 00 MEDICATION WASTE Product Size: 4 mg Product Wasted: _0__ mg Morphine No Notes: Memoria 3-21 (Same l 17:52: as:MORPhin Jaden 00 e Sulfate) Acetaminoph No Notes: Raad kenna en 325 MG / 3-21 (Same as: l Hydrocodone 17:52: [place] Naye nn Bitartrate 00 325/10) 10 MG Oral Tablet Acetaminoph No Notes: Raad kenna en 325 MG / 3-21 (Same as: l Hydrocodone 17:52: [place]aye nn Bitartrate 00 325/5) 5 MG Oral Tablet Ondansetron No Notes: Raad kenna 3-21 (Same as: l 17:52: Zofran) Jaden 00 MEDICATION WASTE Product Size: 4 mg Product Wasted: _0__ mg Morphine No Notes: Memoria 3-21 (Same l 17:52: as:MORPhin [place] 00 e Sulfate) Acetaminoph No Notes: Raad kenna en 325 MG / 3-21 (Same as: l Hydrocodone 17:52: [place] Naye nn Bitartrate 00 325/10) 10 MG Oral Tablet Acetaminoph No Notes: Raad kenna en 325 MG / 3-21 (Same as: l Hydrocodone 17:52: [place] Naye nn Bitartrate 00 325/5) 5 MG Oral Tablet Ondansetron No Notes: Raad kenna 3-21 (Same as: l 17:52: Zofran) [place] 00 MEDICATION WASTE Product Size: 4 mg Product Wasted: _0__ mg Morphine No Notes: Memoria 3-21 (Same l 17:52: as:MORPhin [place] 00 e Sulfate) Acetaminoph No Notes: Raad kenna en 325 MG / 3-21 (Same as: l Hydrocodone 17:52: [place] Naye nn Bitartrate 00 325/10) 10 MG Oral Tablet Acetaminoph No Notes: Raad kenna en 325 MG / 3-21 (Same as: l Hydrocodone 17:52: [place] Naye nn Bitartrate 00 325/5) 5 MG [...] Raad kenna 12-19 Route: l 14:36: IVP, [place] 00 Q20Min, Dosing Weight 86.364, kg, PRN Elevated BP, Start date: 12/19/16 9:36:00 CDT, Duration: 2 doses or times, Stop date: Limited # of times Naloxone 2017-0 No 0.4 mg, Memori a 3 Route: l 14:36: IVP, [place] 00 Q2MIN, Dosing Weight 86.364, kg, PRN [...] kenna - Route: l 14:36: IVP, PRN, [place] 00 Dosing Weight 86.364, kg, PRN Benzodiaze pine Reversal, Initial dose, Start date: 12/19/16 9:36:00 CDT, Duration: 30 day, Stop date: 01/18/17 9:35:00 CDT Ondansetron 2017-0 No 4 mg, Memor ia 12-19 Route: l 14:36: IVP, ONCE, [place] 00 Dosing Weight 86.364, kg, PRN Nausea & Vomiting, Start date: 12/19/16 9:36:00 CDT Hydralazine 2017-0 No 10 mg, Raad kenna 12-19 Route: l 14:36: IVP, [place] 00 Q20Min, Dosing Weight 86.364, kg, PRN [...] oria ne 12-19 Route: l 14:36: IVP, [place] 00 Q5Min, Dosing Weight 86.364, kg, PRN [...] ia 3- Route: l 14:36: IVP, ONCE, Dosing Weight 86.364, kg, PRN Nausea & Vomiting, Start date: 12/19/16 9:36:00 CDT Hydralazine 2017-0 No 10 mg, Raad kenna 3 Route: l 14:36: IVP, [place] 00 Q20Min, Dosing Weight 86.364, kg, PRN Elevated BP, Start date: 12/19/16 9:36:00 CDT, Duration: 2 doses or times, Stop date: Limited # of times Naloxone 2017-0 No 0.4 mg, Memori a 12-19 Route: l 14:36: IVP, [place] 00 Q2MIN, Dosing Weight 86.364, kg, PRN Narcotic Reversal, Start date: 12/19/16 9:36:00 CDT, Duration: 8 doses or times, Stop date: Limited # of times Hydromorpho 2017-0 No 0.5 mg, Mem oria ne 12-19 Route: l 14:36: IVP, [place] 00 Q5Min, Dosing Weight 86.364, kg, PRN Pain Score 7-10, Start date: 12/19/16 9:36:00 CDT, Duration: 4 doses or times, Stop date: Limited # of times Flumazenil 2017-0 No 0.2 mg, Raad kenna - Route: l 14:36: IVP, PRN, Dosing Weight 86.364, kg, PRN Benzodiaze pine Reversal, Initial dose, Start date: 12/19/16 9:36:00 CDT, Duration: 30 day, Stop date: 01/18/17 9:35:00 CDT Ondansetron 2017-0 No 4 mg, Memor ia 3- Route: l 14:36: IVP, ONCE, [place] 00 Dosing Weight 86.364, kg, PRN Nausea & Vomiting, Start date: 12/19/16 9:36:00 CDT Hydralazine 2017-0 No 10 mg, Raad kenna 3 Route: l 14:36: IVP, [place] 00 Q20Min, Dosing Weight 86.364, kg, PRN [...] oria ne 12-19 Route: l 14:36: IVP, [place] 00 Q5Min, Dosing Weight 86.364, kg, PRN Pain Score 7-10, Start date: 12/19/16 9:36:00 CDT, Duration: 4 doses or times, Stop date: Limited # of times Flumazenil 2017-0 No 0.2 mg, Raad kenna 12-19 Route: l 14:36: IVP, PRN, [place] 00 Dosing Weight 86.364, kg, PRN Benzodiaze [...] Memori a 12-19 Route: l 14:36: IVP, [place] 00 Q2MIN, Dosing Weight 86.364, kg, PRN [...] kenna 3-21 Route: l 14:36: IVP, PRN, [place] 00 Dosing Weight 86.364, kg, PRN Benzodiaze [...] Raad kenna 3- Route: l 14:36: IVP, [place] 00 Q20Min, Dosing Weight 86.364, kg, PRN [...] oria ne 3-21 Route: l 14:36: IVP, [place] 00 Q5Min, Dosing Weight 86.364, kg, PRN [...] ia 3- Route: l 14:36: IVP, ONCE, [place] Dosing Weight 86.364, kg, PRN Nausea & Vomiting, Start date: 12/19/16 9:36:00 CDT Hydralazine 2017-0 No 10 mg, Raad kenna 3- Route: l 14:36: IVP, [place] 00 Q20Min, Dosing Weight 86.364, kg, PRN [...] oria ne 12-19 Route: l 14:36: IVP, [place] 00 Q5Min, Dosing Weight 86.364, kg, PRN [...] ia 3- Route: l 14:36: IVP, ONCE, [place] 00 Dosing Weight 86.364, kg, PRN Nausea & Vomiting, Start date: 12/19/16 9:36:00 CDT Hydralazine 2017-0 No 10 mg, Raad kenna 12-19 Route: l 14:36: IVP, [place] 00 Q20Min, Dosing Weight 86.364, kg, PRN [...] oria ne 12-19 Route: l 14:36: IVP, [place] 00 Q5Min, Dosing Weight 86.364, kg, PRN [...] Stop date: Limited # of times ceFAZolin 2016-0 No Notes: Memori a 3-21 Same as: l 06:00: Ancef [place] ceFAZolin 2017-0 No Notes: Memori a 3-21 Same as: l 06:00: Ancef [place] ceFAZolin 2017-0 No Notes: Memori a 3-21 Same as: l 06:00: Ancef [place] ceFAZolin 2017-0 No Notes: Memori a 3-21 Same as: l 06:00: Ancef [place] ceFAZolin 2017-0 No Notes: Memori a 3-21 Same as: l 06:00: Ancef [place] ceFAZolin 2017-0 No Notes: Memori a 3-21 Same as: l 06:00: Ancef [place] ceFAZolin 2017-0 No Notes: Memori a 3-21 Same as: l 06:00: Ancef [place] ceFAZolin 2017-0 No Notes: Memori a 3-21 Same as: l 06:00: Ancef [place] ceFAZolin 2017-0 No Notes: Memori a 3-21 Same as: l 06:00: Ancef [place] Acetaminoph 0 Yes 1 - 2 tab, Memoria en [...] Tablet Refill(s) [Tylenol with Codeine #3] Acetaminoph 0 Yes 1 - 2 tab, Memoria en 300 MG / 2-19 PO, Q4H, l Codeine 03:06: PRN Pain, Naye nn Phosphate 00 X 3 day, # 30 MG Oral 23 tab, 0 Tablet Refill(s) [Tylenol with Codeine #3] Acetaminoph 0 Yes 1 - 2 tab, Memoria en [...] not exceed l Hydrocodone 02:44: 4gm/day of [place] Bitartrate 00 acetaminop 10 MG Oral hen. (Same Tablet as: [place] [[place] 325/10) ] Acetaminoph No Notes: Do M emoria en 325 MG / 2-19 not exceed l Hydrocodone 02:44: 4gm/day of [place] Bitartrate 00 acetaminop 10 MG Oral hen. (Same Tablet as: [place] [[place] 325/10) ] Acetaminoph No Notes: Do M emoria en 325 MG / 2-19 not exceed l Hydrocodone 02:44: 4gm/day of [place] Bitartrate 00 acetaminop 10 MG Oral hen. (Same Tablet as: [place] [[place] 325/10) ] Acetaminoph No Notes: Do M emoria en 325 MG / 2-19 not exceed l Hydrocodone 02:44: 4gm/day of [place] Bitartrate 00 acetaminop 10 MG Oral hen. (Same Tablet as: [place] [[place] 325/10) ] Acetaminoph No Notes: Do M emoria en 325 MG / 2-19 not exceed l Hydrocodone 02:44: 4gm/day of [place] Bitartrate 00 acetaminop 10 MG Oral hen. (Same Tablet as: [place] [[place] 325/10) ] Acetaminoph No Notes: Do M emoria en 325 MG / 2-19 not exceed l Hydrocodone 02:44: 4gm/day of [place] Bitartrate 00 acetaminop 10 MG Oral hen. (Same Tablet as: [place] [[place] 325/10) ] Acetaminoph No Notes: Do M emoria en 325 MG / 2-19 not exceed l Hydrocodone 02:44: 4gm/day of [place] Bitartrate 00 acetaminop 10 MG Oral hen. (Same Tablet as: [place] [[place] 325/10) ] Acetaminoph No Notes: Do M emoria en 325 MG / 2-19 not exceed l Hydrocodone 02:44: 4gm/day of [place] Bitartrate 00 acetaminop 10 MG Oral hen. (Same Tablet as: [place] [[place] 325/10) ] Acetaminoph No Notes: Do M emoria en 325 MG / 2-19 not exceed l Hydrocodone 02:44: 4gm/day of [place] Bitartrate 00 acetaminop 10 MG Oral hen. (Same Tablet as: [place] [[place] 325/10) ] Ibuprofen No Notes: Memori a 2-19 (Same as: l 00:58: Motrin) [place] "Do Not Crush" Take with food. Tylenol 0 No Notes: Do Memor ia 2-19 not exceed l 00:58: 4 gm/day. [place] (Same as: Tylenol) Ibuprofen No Notes: Memori a 2-19 (Same as: l 00:58: Motrin) [place] "Do Not Crush" Take with food. Tylenol 0 No Notes: Do Memor ia 2-19 not exceed l 00:58: 4 gm/day. [place] (Same as: Tylenol) Ibuprofen 0 No Notes: Memori a 2-19 (Same as: l 00:58: Motrin) [place] "Do Not Crush" Take with food. Tylenol 0 No Notes: Do Memor ia 2-19 not exceed l 00:58: 4 gm/day. [place] 00 (Same as: Tylenol) Ibuprofen No Notes: Memori a 2-19 (Same as: l 00:58: Motrin) [place] "Do Not Crush" Take with food. Tylenol 0 No Notes: Do Memor ia 2-19 not exceed l 00:58: 4 gm/day. [place] (Same as: Tylenol) Ibuprofen 0 No Notes: Memori a 2-19 (Same as: l 00:58: Motrin) [place] "Do Not Crush" Take with food. Tylenol 0 No Notes: Do Memor ia 2-19 not exceed l 00:58: 4 gm/day. [place] 00 (Same as: Tylenol) Ibuprofen 0 No Notes: Memori a 2-19 (Same as: l 00:58: Motrin) [place] "Do Not Crush" Take with food. Tylenol 0 No Notes: Do Memor ia 2-19 not exceed l 00:58: 4 gm/day. [place] (Same as: Tylenol) Ibuprofen 0 No Notes: Memori a 2-19 (Same as: l 00:58: Motrin) [place] "Do Not Crush" Take with food. Tylenol 0 No Notes: Do Memor ia 2-19 not exceed l 00:58: 4 gm/day. [place] (Same as: Tylenol) Ibuprofen 2016-0 No Notes: Memori a 2-19 (Same as: l 00:58: Motrin) "Do Not Crush" Take with food. Tylenol 2016-0 No Notes: Do Memor ia 2-19 not exceed l 00:58: 4 gm/day. (Same as: Tylenol) Ibuprofen 2016- No Notes: Memori a 2-19 (Same as: l 00:58: Motrin) "Do Not Crush" Take with food. Tylenol 2016-0 No Notes: Do Memor ia 2-19 not [...] 6 hours as needed for Pain. FLUoxetine 0 Yes Substance 20mg QD Take 1 Kahn [...] 6 hours as needed for Pain. 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 traMADol 2017-0 Yes Hx of 50mg Take 1 Kahn (ULTRAM) 50 2-19 fracture of tablet by Health mg tablet 00:00: leg mouth 00 every 6 hours as needed for Pain. FLUoxetine 2017-0 Yes Substance 20mg QD Take 1 Kahn [...] Notes: Memoria 2-12 (Same l 15:04: as:MORPhin [place] 00 e Sulfate) Morphine No Notes: Memoria 2-12 (Same l 15:04: as:MORPhin [place] 00 e Sulfate) Morphine No Notes: Memoria 2-12 (Same l 15:04: as:MORPhin [place] 00 e Sulfate) Morphine No Notes: Memoria 2-12 (Same l 15:04: as:MORPhin [place] 00 e Sulfate) Morphine No Notes: Memoria 2-12 (Same l 15:04: as:MORPhin [place] 00 e Sulfate) Morphine No Notes: Memoria 2-12 (Same l 15:04: as:MORPhin [place] 00 e Sulfate) Morphine No Notes: Memoria 2-12 (Same l 15:04: as:MORPhin [place] 00 e Sulfate) Morphine No Notes: Memoria 2-12 (Same l 15:04: as:MORPhin [place] 00 e Sulfate) Morphine No Notes: Memoria 2-12 (Same l 15:04: as:MORPhin [place] 00 e Sulfate) Acetaminoph No 1 tab, Raad kenna en 325 MG / 2-12 Route: PO, l Hydrocodone 14:23: Drug Form: [place] Bitartrate 00 TAB, 5 MG Oral Dosing Tablet Weight 86.364, kg, ONCE, STAT, Start date: 11/12/16 8:23:00 SIDE STAPLER, Stop date: 11/12/16 8:23:00 SIDE STAPLER Acetaminoph 2017-0 No 1 tab, Raad kenna en 325 MG / 2-12 Route: PO, l Hydrocodone 14:23: Drug Form: [place] Bitartrate 00 TAB, 5 MG Oral Dosing Tablet Weight 86.364, kg, ONCE, STAT, Start date: 11/12/16 8:23:00 SIDE STAPLER, Stop date: 11/12/16 8:23:00 SIDE STAPLER Acetaminoph 2017-0 No 1 tab, Raad kenna en 325 MG / 2-12 Route: PO, l Hydrocodone 14:23: Drug Form: [place] Bitartrate 00 TAB, 5 MG Oral Dosing Tablet Weight 86.364, kg, ONCE, STAT, Start date: 11/12/16 8:23:00 SIDE STAPLER, Stop date: 11/12/16 8:23:00 SIDE STAPLER Acetaminoph 2017-0 No 1 tab, Raad kenna en 325 MG / 2-12 Route: PO, l Hydrocodone 14:23: Drug Form: [place] Bitartrate 00 TAB, 5 MG Oral Dosing Tablet Weight 86.364, kg, ONCE, STAT, Start date: 11/12/16 8:23:00 SIDE STAPLER, Stop date: 11/12/16 8:23:00 SIDE STAPLER Acetaminoph 2017-0 No 1 tab, Raad kenna en 325 MG / 2-12 Route: PO, l Hydrocodone 14:23: Drug Form: [place] Bitartrate 00 TAB, 5 MG Oral Dosing Tablet Weight 86.364, kg, ONCE, STAT, Start date: 11/12/16 8:23:00 SIDE STAPLER, Stop date: 11/12/16 8:23:00 SIDE STAPLER Acetaminoph 2017-0 No 1 tab, Raad kenna en 325 MG / 2-12 Route: PO, l Hydrocodone 14:23: Drug Form: [place] Bitartrate 00 TAB, 5 MG Oral Dosing Tablet Weight 86.364, kg, ONCE, STAT, Start date: 11/12/16 8:23:00 SIDE STAPLER, Stop date: 11/12/16 8:23:00 SIDE STAPLER Acetaminoph 2017-0 No 1 tab, Raad kenna en 325 MG / 2-12 Route: PO, l Hydrocodone 14:23: Drug Form: [place] Bitartrate 00 TAB, 5 MG Oral Dosing Tablet Weight 86.364, kg, ONCE, STAT, Start date: 11/12/16 8:23:00 SIDE STAPLER, Stop date: 11/12/16 8:23:00 SIDE STAPLER Acetaminoph 2017-0 No 1 tab, Raad kenna en 325 MG / 2-12 Route: PO, l Hydrocodone 14:23: Drug Form: [place] Bitartrate 00 TAB, 5 MG Oral Dosing Tablet Weight 86.364, kg, ONCE, STAT, Start date: 11/12/16 8:23:00 SIDE STAPLER, Stop date: 11/12/16 8:23:00 SIDE STAPLER Acetaminoph 2017-0 No 1 tab, Raad kenna en 325 MG / 2-12 Route: PO, l Hydrocodone 14:23: Drug Form: [place] Bitartrate 00 TAB, 5 MG Oral Dosing Tablet Weight 86.364, kg, ONCE, STAT, Start date: 11/12/16 8:23:00 SIDE STAPLER, Stop date: 11/12/16 8:23:00 S[place] STAPL[place] enoxaparin 2017- Yes 30 mg = Raad kenna 30 mg/0.3 2-11 0.3 mL, l mL 16:52: SUB-Q, [place] subcutaneou 00 [id number], s solution X 21 day, # 13 mL, 0 Refill(s), Pharmacy: [facility] enoxaparin Yes 30 mg = Raad kenna 30 mg/0.3 2-11 0.3 mL, l mL 16:52: SUB-Q, [place] subcutaneou 00 [id number], s solution X 21 day, # 13 mL, 0 Refill(s), Pharmacy: [facility] enoxaparin Yes 30 mg = Raad kenna 30 mg/0.3 2-11 0.3 mL, l mL 16:52: SUB-Q, [place] subcutaneou 00 [id number], s solution X 21 day, # 13 mL, 0 Refill(s), Pharmacy: [facility] enoxaparin Yes 30 mg = Raad kenna 30 mg/0.3 2-11 0.3 mL, l mL 16:52: SUB-Q, [place] subcutaneou 00 [id number], s solution X 21 day, # 13 mL, 0 Refill(s), Pharmacy: [facility] enoxaparin Yes 30 mg = Raad kenna 30 mg/0.3 2-11 0.3 mL, l mL 16:52: SUB-Q, [place] subcutaneou 00 [id number], s solution X 21 day, # 13 mL, 0 Refill(s), Pharmacy: [place] [address] enoxaparin Yes 30 mg = Raad kenna 30 mg/0.3 2-11 0.3 mL, l mL 16:52: SUB-Q, [place] subcutaneou 00 [id number], s solution X 21 day, # 13 mL, 0 Refill(s), Pharmacy: [place] [address] enoxaparin Yes 30 mg = Raad kenna 30 mg/0.3 2-11 0.3 mL, l mL 16:52: SUB-Q, [place] subcutaneou 00 [id number], s solution X 21 day, # 13 mL, 0 Refill(s), Pharmacy: [place] [address] enoxaparin Yes 30 mg = Raad kenna 30 mg/0.3 2-11 0.3 mL, l mL 16:52: SUB-Q, [place] subcutaneou 00 [id number], s solution X 21 day, # 13 mL, 0 Refill(s), Pharmacy: [place] [address] enoxaparin Yes 30 mg = Raad kenna 30 mg/0.3 2-11 0.3 mL, l mL 16:52: SUB-Q, [place] subcutaneou 00 [id number], s solution X 21 day, # 13 mL, 0 Refill(s), Pharmacy: [place] [address] tramadol Yes 100 mg = 2 Mem [...] 6-10, 0 10 MG Oral Refill(s) Tablet [[place] 10/325] FLUoxetine Yes 60 mg = 3 Me moria 20 mg oral 2-11 cap, PO, l capsule 16:46: Daily, # Kamari n 00 90 cap, 0 Refill(s), Pharmacy: [facility] senna 05.06 Yes 17.2 mg = Mem oria mg oral 2-11 2 tab, PO, l tablet 16:46: Bedtime, 0 Naye nn 00 Refill(s) gabapentin Yes 300 mg = 1 M emoria 300 MG Oral 2-11 cap, PO, l Capsule 16:46: Q8H-05, # Naye nn 00 90 cap, 0 Refill(s), Pharmacy: [facility] methocarbam Yes 1,000 mg = Memoria ol 500 mg 2-11 2 tab, PO, l oral tablet 16:46: Q8H-05, Her baker 00 PRN Spasm, X 14 day, # 84 tab, 0 Refill(s), Pharmacy: [facility] [place] [address] tramadol Yes 100 mg = 2 Mem oria hydrochlori 2-11 tab, PO, l de 50 MG 16:46: Q6H, PRN Naye nn Oral Tablet 00 Pain Score [Ultram] 4-6, X 14 day, # 112 tab, 0 Refill(s) Acetaminoph Yes 1 tab, PO, Memoria en 325 MG / 2-11 Q4H, PRN l Hydrocodone 16:46: Pain Score [place] Bitartrate 00 6-10, 0 10 MG Oral Refill(s) Tablet [[place] 10/325] FLUoxetine Yes 60 mg = 3 Me moria 20 mg oral 2-11 cap, PO, l capsule 16:46: Daily, # Kamari n 00 90 cap, 0 Refill(s), Pharmacy: [facility] senna 05.06 Yes 17.2 mg = Mem oria mg oral 2-11 2 tab, PO, l tablet 16:46: Bedtime, 0 Naye nn 00 Refill(s) gabapentin Yes 300 mg = 1 M emoria 300 MG Oral 2-11 cap, PO, l Capsule 16:46: Q8H-05, # Naye nn 00 90 cap, 0 Refill(s), Pharmacy: [place] [address] methocarbam Yes 1,000 mg = Memoria ol 500 mg 2-11 2 tab, PO, l oral tablet 16:46: Q8H-05, Her baker 00 PRN Spasm, X 14 day, # 84 tab, 0 Refill(s), Pharmacy: [place] [address] tramadol Yes 100 mg = 2 Mem oria hydrochlori 2-11 tab, PO, l de 50 MG 16:46: Q6H, PRN Naye nn Oral Tablet 00 Pain Score [Ultram] 4-6, X 14 day, # 112 tab, 0 Refill(s) Acetaminoph Yes 1 tab, PO, Memoria en 325 MG / 2-11 Q4H, PRN l Hydrocodone 16:46: Pain Score [place] Bitartrate 00 6-10, 0 10 MG Oral Refill(s) Tablet [[place] 10/325] FLUoxetine Yes 60 mg = 3 Me moria 20 mg oral 2-11 cap, PO, l capsule 16:46: Daily, # Kamari n 00 90 cap, 0 Refill(s), Pharmacy: [facility] [place] [address] senna 8.6 Yes 17.2 mg = Mem oria mg oral 2-11 2 tab, PO, l tablet 16:46: Bedtime, 0 Naye nn 00 Refill(s) gabapentin Yes 300 mg = 1 M emoria 300 MG Oral 2-11 cap, PO, l Capsule 16:46: Q8H-05, # Naye nn 00 90 cap, 0 Refill(s), Pharmacy: [facility] methocarbam Yes 1,000 mg = Memoria ol 500 mg 2-11 2 tab, PO, l oral tablet 16:46: Q8H-05, Her baker 00 PRN Spasm, X 14 day, # 84 tab, 0 Refill(s), Pharmacy: [facility] [place] [address] tramadol Yes 100 mg = 2 Mem oria hydrochlori 2-11 tab, PO, l de 50 MG 16:46: Q6H, PRN Naye nn Oral Tablet 00 Pain Score [Ultram] 4-6, X 14 day, # 112 tab, 0 Refill(s) Acetaminoph Yes 1 tab, PO, Memoria en 325 MG / 2-11 Q4H, PRN l Hydrocodone 16:46: Pain Score [place] Bitartrate 00 6-10, 0 10 MG Oral Refill(s) Tablet [[place] 10/325] FLUoxetine Yes 60 mg = 3 Me moria 20 mg oral 2-11 cap, PO, l capsule 16:46: Daily, # Kamari n 00 90 cap, 0 Refill(s), Pharmacy: [facility] [place] [address] senna 8.6 Yes 17.2 mg = Mem oria mg oral 2-11 2 tab, PO, l tablet 16:46: Bedtime, 0 Naye nn 00 Refill(s) gabapentin Yes 300 mg = 1 M emoria 300 MG Oral 2-11 cap, PO, l Capsule 16:46: Q8H-05, # Naye nn 00 90 cap, 0 Refill(s), Pharmacy: [facility] [place] [address] methocarbam Yes 1,000 mg = Memoria ol 500 mg 2-11 2 tab, PO, l oral tablet 16:46: Q8H-05, Her baker 00 PRN Spasm, X 14 day, # 84 tab, 0 Refill(s), Pharmacy: [facility] [place] [address] tramadol Yes 100 mg = 2 Mem [...] 6-10, 0 10 MG Oral Refill(s) Tablet [[place] 10/325] FLUoxetine Yes 60 mg = 3 Me moria 20 mg oral 2-11 cap, PO, l capsule 16:46: Daily, # Kamari n 00 90 cap, 0 Refill(s), Pharmacy: [facility] [place] [address] senna 05.06 Yes 17.2 mg = Mem oria mg oral 2-11 2 tab, PO, l tablet 16:46: Bedtime, 0 Naye nn 00 Refill(s) gabapentin Yes 300 mg = 1 M emoria 300 MG Oral 2-11 cap, PO, l Capsule 16:46: Q8H-05, # Naye nn 00 90 cap, 0 Refill(s), Pharmacy: [facility] [place] [address] methocarbam Yes 1,000 mg = Memoria ol 500 mg 2-11 2 tab, PO, l oral tablet 16:46: Q8H-05, Her baker 00 PRN Spasm, X 14 day, # 84 tab, 0 Refill(s), Pharmacy: [facility] [place] [address] tramadol Yes 100 mg = 2 Mem oria hydrochlori 2-11 tab, PO, l de 50 MG 16:46: Q6H, PRN Naye nn Oral Tablet 00 Pain Score [Ultram] 4-6, X 14 day, # 112 tab, 0 Refill(s) Acetaminoph Yes 1 tab, PO, Memoria en 325 MG / 2-11 Q4H, PRN l Hydrocodone 16:46: Pain Score [place] Bitartrate 00 6-10, 0 10 MG Oral Refill(s) Tablet [[place] 10/325] FLUoxetine Yes 60 mg = 3 Me moria 20 mg oral 2-11 cap, PO, l capsule 16:46: Daily, # Kamari n 00 90 cap, 0 Refill(s), Pharmacy: [facility] [place] [address] senna 05.06 Yes 17.2 mg = Mem oria mg oral 2-11 2 tab, PO, l tablet 16:46: Bedtime, 0 Naye nn 00 Refill(s) gabapentin Yes 300 mg = 1 M emoria 300 MG Oral 2-11 cap, PO, l Capsule 16:46: Q8H-05, # Naye nn 00 90 cap, 0 Refill(s), Pharmacy: [facility] methocarbam Yes 1,000 mg = Memoria ol 500 mg 2-11 2 tab, PO, l oral tablet 16:46: Q8H-05, Her baker 00 PRN Spasm, X 14 day, # 84 tab, 0 Refill(s), Pharmacy: [facility] [place] [address] tramadol Yes 100 mg = 2 Mem [...] 6-10, 0 10 MG Oral Refill(s) Tablet [[place] 10/325] FLUoxetine Yes 60 mg = 3 Me moria 20 mg oral 2-11 cap, PO, l capsule 16:46: Daily, # Kamari n 00 90 cap, 0 Refill(s), Pharmacy: [facility] [place] [address] senna 8.6 Yes 17.2 mg = Mem oria mg oral 2-11 2 tab, PO, l tablet 16:46: Bedtime, 0 Naye nn 00 Refill(s) gabapentin Yes 300 mg = 1 M emoria 300 MG Oral 2-11 cap, PO, l Capsule 16:46: Q8H-05, # Naye nn 00 90 cap, 0 Refill(s), Pharmacy: [facility] [place] [address] methocarbam Yes 1,000 mg = Memoria ol 500 mg 2-11 2 tab, PO, l oral tablet 16:46: Q8H-05, Her baker 00 PRN Spasm, X 14 day, # 84 tab, 0 Refill(s), Pharmacy: [facility] [place] [address] tramadol Yes 100 mg = 2 Mem [...] 6-10, 0 10 MG Oral Refill(s) Tablet [[place] 10/325] FLUoxetine Yes 60 mg = 3 Me moria 20 mg oral 2-11 cap, PO, l capsule 16:46: Daily, # Kamari n 00 90 cap, 0 Refill(s), Pharmacy: [facility] [place] [address] senna 05.06 Yes 17.2 mg = Mem oria mg oral 2-11 2 tab, PO, l tablet 16:46: Bedtime, 0 Naye nn 00 Refill(s) gabapentin Yes 300 mg = 1 M emoria 300 MG Oral 2-11 cap, PO, l Capsule 16:46: Q8H-05, # Naye nn 00 90 cap, 0 Refill(s), Pharmacy: [facility] [place] [address] methocarbam Yes 1,000 mg = Memoria ol 500 mg 2-11 2 tab, PO, l oral tablet 16:46: Q8H-05, Her baker 00 PRN Spasm, X 14 day, # 84 tab, 0 Refill(s), Pharmacy: [facility] [place] [address] tramadol Yes 100 mg = 2 Mem [...] 6-10, 0 10 MG Oral Refill(s) Tablet [[place] 10/325] FLUoxetine Yes 60 mg = 3 Me moria 20 mg oral 2-11 cap, PO, l capsule 16:46: Daily, # Kamari n 00 90 cap, 0 Refill(s), Pharmacy: [facility] [place] [address] senna 05.06 Yes 17.2 mg = Mem oria mg oral 2-11 2 tab, PO, l tablet 16:46: Bedtime, 0 Naye nn 00 Refill(s) gabapentin Yes 300 mg = 1 M emoria 300 MG Oral 2-11 cap, PO, l Capsule 16:46: Q8H-05, # Naye nn 00 90 cap, 0 Refill(s), Pharmacy: [facility] [id number] methocarbam Yes 1,000 mg = Memoria ol 500 mg 2-11 2 tab, PO, l oral tablet 16:46: Q8H-05, Her baker 00 PRN Spasm, X 14 day, # 84 tab, 0 Refill(s), Pharmacy: [facility] [employer] [facility] tramadol No Notes: Not Mem oria hydrochlori 2-11 to exceed l de 50 MG 15:34: 400mg/day. Her baker Oral Tablet 00 (Same As: [Ultram] Ultram) Morphine No Notes: Memoria 2-11 (Same l 15:34: as:MORPhin [place] 00 e Sulfate) tramadol No Notes: Not [...] Notes: Memoria 2-11 (Same l 15:34: as:MORPhin [place] 00 e Sulfate) tramadol No Notes: Not [...] Notes: Memoria 2-11 (Same l 15:34: as:MORPhin [place] 00 e Sulfate) tramadol No Notes: Not [...] Notes: Memoria 2-11 (Same l 15:34: as:MORPhin [place] 00 e Sulfate) sennosides, No Notes: Raad kenna SKILL[facility] NURSING 2-11 (Same as: l 03:00: Senokot) [place] Trazodone No Notes: Memori a 2-11 (Same As: l 03:00: Desyrel) [place] sennosides, No Notes: Raad kenna SKILLED NURSING 2-11 (Same as: l 03:00: Senokot) [place] Trazodone No Notes: Memori a 2-11 (Same As: l 03:00: Desyrel) [place] sennosides, No Notes: Raad kenna SKILLED NURSING 2-11 (Same as: l 03:00: Senokot) Jaden 00 Trazodone No Notes: Memori a 2-11 (Same As: l 03:00: Desyrel) [place] sennosides, No Notes: Raad kenna SKILLED NURSING 2-11 (Same as: l 03:00: Senokot) [place] Trazodone No Notes: Memori a 2-11 (Same As: l 03:00: Desyrel) [place] sennosides, No Notes: Raad kenna SKILLED NURSING 2-11 (Same as: l 03:00: Senokot) [place] Trazodone No Notes: Memori a 2-11 (Same As: l 03:00: Desyrel) [place] sennosides, No Notes: Raad kenna SKILLED NURSING 2-11 (Same as: l 03:00: Senokot) [place] Trazodone No Notes: Memori a 2-11 (Same As: l 03:00: Desyrel) [place] sennosides, No Notes: Raad kenna SKILLED NURSING 2-11 (Same as: l 03:00: Senokot) [place] Trazodone No Notes: Memori a 2-11 (Same As: l 03:00: Desyrel) [place] sennosides, No Notes: Raad kenna SKILLED NURSING 2-11 (Same as: l 03:00: Senokot) [place] Trazodone No Notes: Memori a 2-11 (Same As: l 03:00: Desyrel) [place] sennosides, No Notes: Raad kenna SKILLED NURSING 2-11 (Same as: l 03:00: Senokot) [place] Trazodone No Notes: Memori a 2-11 (Same As: l 03:00: Desyrel) [place] 00 Cefazolin No Notes: Memori a 2-10 (Same As: l 22:00: Ancef, [place] Kefzol) MEDICATION WASTE Product Size: 1000 mg Product Wasted: ___ mg Cefazolin 2017-0 No Notes: Memori a 2-10 (Same As: l 22:00: Ancef, [place] 00 Kefzol) MEDICATION WASTE Product Size: 1000 mg Product Wasted: ___ mg Cefazolin 2017-0 No Notes: Memori a 2-10 (Same As: l 22:00: Ancef, [place] 00 Kefzol) MEDICATION WASTE Product Size: 1000 mg Product Wasted: ___ mg Cefazolin 2017-0 No Notes: Memori a 2-10 (Same As: l 22:00: Ancef, [place] 00 Kefzol) MEDICATION WASTE Product Size: 1000 mg Product Wasted: ___ mg Cefazolin 2017-0 No Notes: Memori a 2-10 (Same As: l 22:00: Ancef, [place] 00 Kefzol) MEDICATION WASTE Product Size: 1000 mg Product Wasted: ___ mg Cefazolin 2017-0 No Notes: Memori a 2-10 (Same As: l 22:00: Ancef, [place] 00 Kefzol) MEDICATION WASTE Product Size: 1000 mg Product Wasted: ___ mg Cefazolin 2017-0 No Notes: Memori a 2-10 (Same As: l 22:00: Ancef, [place] 00 Kefzol) MEDICATION WASTE Product Size: 1000 mg Product Wasted: ___ mg Cefazolin 2017-0 No Notes: Memori a 2-10 (Same As: l 22:00: Ancef, [place] 00 Kefzol) MEDICATION WASTE Product Size: 1000 mg Product Wasted: ___ mg Cefazolin 2017-0 No Notes: Memori a 2-10 (Same As: l 22:00: Ancef, [place] 00 Kefzol) MEDICATION WASTE Product Size: 1000 mg Product Wasted: ___ mg Latuda 2016- No Notes: Memoria 2-10 (Same as: l 15:00: Latuda) [place] 00 Non-Formul em Prozac No Notes: Memoria 2-10 (Same as: l 15:00: Prozac, [place] 00 Sarafem) Latuda No Notes: Memoria 2-10 (Same as: l 15:00: Latuda) [place] 00 Non-Formul em Prozac No Notes: [facility]oria 2-10 (Same as: l 15:00: Prozac, [place] 00 Sarafem) Lat No Notes: Memoria 2-10 (Same as: l 15:00: Latuda) [place] 00 Non-Formul em Prozac No Notes: Memoria 2-10 (Same as: l 15:00: Prozac, [place] 00 Sarafem) Lat No Notes: Memoria 2-10 (Same as: l 15:00: Latuda) [place] 00 Non-Formul em Prozac No Notes: Memoria 2-10 (Same as: l 15:00: Prozac, [place] 00 Sarafem) Lat No Notes: Memoria 2-10 (Same as: l 15:00: Latuda) [place] 00 Non-Formul em Prozac No Notes: Memoria 2-10 (Same as: l 15:00: Prozac, [place] 00 Sarafem) Lat No Notes: [facility]oria 2-10 (Same as: l 15:00: Latuda) [place] 00 Non-Formul em Prozac No Notes: Memoria 2-10 (Same as: l 15:00: Prozac, [place] 00 Sarafem) Latuda No Notes: Memoria 2-10 (Same as: l 15:00: Latuda) [place] 00 Non-Formul em Prozac No Notes: Memoria 2-10 (Same as: l 15:00: Prozac, [place] 00 Sarafem) Latuda No Notes: Memoria 2-10 (Same as: l 15:00: Latuda) [place] 00 Non-Formul em Prozac No Notes: Memoria 2-10 (Same as: l 15:00: Prozac, [place] 00 Sarafem) Latuda No Notes: Memoria 2-10 (Same as: l 15:00: Latuda) [place] Non-Formul em Prozac No Notes: [facility]oria 2-10 (Same as: l 15:00: Prozac, [place] 00 Sarafem) Ondansetron No Notes: Raad kenna 2-10 (Same as: l 14:58: Zofran) [place] 00 MEDICATION WASTE Product Size: 4 mg Product Wasted: ___ mg Oxycodone No Notes: Memori a 2-10 (Same as: l 14:58: Roxicodone [place] 00 ) Hydromorpho No Notes: Raad kenna ne 2-10 Same as: l 14:58: Dilaudid [place] Naloxone No Notes: Memoria 2-10 Same as l 14:58: Narcan [place] 00 Flumazenil No Notes: Memor ia 2-10 (Same as: l 14:58: Romazicon) [place] 00 Ondansetron No Notes: Raad kenna 2-10 (Same as: l 14:58: Zofran) [place] 00 MEDICATION WASTE Product Size: 4 mg Product Wasted: ___ mg Oxycodone No Notes: Memori a 2-10 (Same as: l 14:58: Roxicodone [place] 00 ) Hydromorpho No Notes: Raad kenna [...] Memoria 2-10 Same as l 14:58: Narcan [place] Flumazenil No Notes: Memor ia 2-10 (Same as: l 14:58: Romazicon) [place] Ondansetron No Notes: Raad kenna 2-10 (Same as: l 14:58: Zofran) [place] 00 MEDICATION WASTE Product Size: 4 mg Product Wasted: ___ mg Oxycodone 2017 No Notes: Memori a 2-10 (Same as: l 14:58: Roxicodone [place] ) Hydromorpho No Notes: Raad kenna ne 2-10 Same as: l 14:58: Dilaudid [place] 00 Naloxone 2017 No Notes: Memoria 2-10 Same as l 14:58: Narcan [place] Flumazenil No Notes: Memor ia 2-10 (Same as: l 14:58: Romazicon) [place] Ondansetron No Notes: Raad kenna 2-10 (Same as: l 14:58: Zofran) [place] 00 MEDICATION WASTE Product Size: 4 mg Product Wasted: ___ mg Oxycodone 2017- No Notes: Memori a 2-10 (Same as: l 14:58: Roxicodone [place] ) Hydromorpho No Notes: Raad kenna ne 2-10 Same as: l 14:58: Dilaudid [place] 00 Naloxone 2017-0 No Notes: Memoria 2-10 Same as l 14:58: Narcan [place] 00 Flumazenil 2016-0 No Notes: Memor ia 2-10 (Same as: l 14:58: Romazicon) [place] Ondansetron 0 No Notes: Raad kenna 2-10 (Same as: l 14:58: Zofran) [place] 00 MEDICATION WASTE Product Size: 4 mg Product Wasted: ___ mg Oxycodone 2017-0 No Notes: Memori a 2-10 (Same as: l 14:58: Roxicodone [place] 00 ) Hydromorpho No Notes: Raad kenna ne 2-10 Same as: l 14:58: Dilaudid [place] 00 Naloxone No Notes: Memoria 2-10 Same as l 14:58: Narcan [place] 00 Flumazenil No Notes: Memor ia 2-10 (Same as: l 14:58: Romazicon) [place] Ondansetron No Notes: Raad kenna 2-10 (Same as: l 14:58: Zofran) [place] 00 MEDICATION WASTE Product Size: 4 mg Product Wasted: ___ mg Oxycodone 2017 No Notes: Memori a 2-10 (Same as: l 14:58: Roxicodone [place] 00 ) Hydromorpho No Notes: Raad kenna ne 2-10 Same as: l 14:58: Dilaudid [place] 00 Naloxone No Notes: Memoria 2-10 Same as l 14:58: Narcan [place] Flumazenil No Notes: Memor ia 2-10 (Same as: l 14:58: Romazicon) [place] Ondansetron No Notes: Raad kenna 2-10 (Same as: l 14:58: Zofran) [place] 00 MEDICATION WASTE Product Size: 4 mg Product Wasted: ___ mg Oxycodone 2017 No Notes: Memori a 2-10 (Same as: l 14:58: Roxicodone [place] 00 ) Hydromorpho No Notes: Raad kenna ne 2-10 Same as: l 14:58: Dilaudid [place] 00 Naloxone 0 No Notes: Memoria 2-10 Same as l 14:58: Narcan [place] 00 Flumazenil 0 No Notes: Memor ia 2-10 (Same as: l 14:58: Romazicon) [place] Ondansetron No Notes: Raad kenna 2-10 (Same as: l 14:58: Zofran) [place] 00 MEDICATION WASTE Product Size: 4 mg Product Wasted: ___ mg Oxycodone No Notes: Memori a 2-10 (Same as: l 14:58: Roxicodone ) Hydromorpho No Notes: Raad kenna ne 2-10 Same as: l 14:58: Dilaudid Naloxone No Notes: Memoria 2-10 Same as l 14:58: Narcan Flumazenil No Notes: Memor ia 2-10 (Same as: l 14:58: Romazicon) Ancef 2016-0 No 2 gm, Mem[facility] 2-10 Route: l 13:28: IVPB, [place] 00 ONCE, Dosing Weight 88.636, kg, Start date: 11/10/16 7:28:00 SIDE STAPLER, Duration: 1 doses or times, Stop date: 11/10/16 7:28:00 SIDE STAPLER, Surgical Prophylaxi s Only; For patients < 120 kg Ancef 2017-0 No 2 gm, [facility] 2-10 Route: l 13:28: IVPB, [place] 00 ONCE, Dosing Weight 88.636, kg, Start date: 11/10/16 7:28:00 SIDE STAPLER, Duration: 1 doses or times, Stop date: 11/10/16 7:28:00 SIDE STAPLER, Surgical Prophylaxi s Only; For patients < 120 kg Ancef 2016-0 No 2 gm, [facility] 2-10 Route: l 13:28: IVPB, [place] 00 ONCE, Dosing Weight 88.636, kg, Start date: 11/10/16 7:28:00 SIDE STAPLER, Duration: 1 doses or times, Stop date: 11/10/16 7:28:00 SIDE STAPLER, Surgical Prophylaxi s Only; For patients < 120 kg Ancef 2017-0 No 2 gm, [facility] 2-10 Route: l 13:28: IVPB, [place] 00 ONCE, Dosing Weight 88.636, kg, Start date: 11/10/16 7:28:00 SIDE STAPLER, Duration: 1 doses or times, Stop date: 11/10/16 7:28:00 SIDE STAPLER, Surgical Prophylaxi s Only; For patients < 120 kg Ancef 2017-0 No 2 gm, [facility] 2-10 Route: l 13:28: IVPB, [place] 00 ONCE, Dosing Weight 88.636, kg, Start date: 11/10/16 7:28:00 SIDE STAPLER, Duration: 1 doses or times, Stop date: 11/10/16 7:28:00 SIDE STAPLER, Surgical Prophylaxi s Only; For patients < 120 kg Ancef 2017-0 No 2 gm, [facility] 2-10 Route: l 13:28: IVPB, [place] 00 ONCE, Dosing Weight 88.636, kg, Start date: 11/10/16 7:28:00 SIDE STAPLER, Duration: 1 doses or times, Stop date: 11/10/16 7:28:00 SIDE STAPLER, Surgical Prophylaxi s Only; For patients < 120 kg Ancef 2017-0 No 2 gm, [facility] 2-10 Route: l 13:28: IVPB, [place] 00 ONCE, Dosing Weight 88.636, kg, Start date: 11/10/16 7:28:00 SIDE STAPLER, Duration: 1 doses or times, Stop date: 11/10/16 7:28:00 SIDE STAPLER, Surgical Prophylaxi s Only; For patients < 120 kg Ancef 2017-0 No 2 gm, [facility] 2-10 Route: l 13:28: IVPB, [place] 00 ONCE, Dosing Weight 88.636, kg, Start date: 11/10/16 7:28:00 SIDE STAPLER, Duration: 1 doses or times, Stop date: 11/10/16 7:28:00 SIDE STAPLER, Surgical Prophylaxi s Only; For patients < 120 kg Ancef 2017-0 No 2 gm, [facility] 2-10 Route: l 13:28: IVPB, [place] 00 ONCE, Dosing Weight 88.636, kg, Start date: 11/10/16 7:28:00 SIDE STAPLER, Duration: 1 doses or times, Stop date: 11/10/16 7:28:00 SIDE STAPLER, Surgical Prophylaxi s Only; For patients < 120 kg ketOROLAC 2017-0 No 4 days. Raad kenna 15 mg/mL 2-10 l injectable 12:00: [place] solution 00 ketOROLAC 2017-0 No 4 days. Raad kenna 15 mg/mL 2-10 l injectable 12:00: [place] solution 00 ketOROLAC 2017-0 No 4 days. Raad kenna 15 mg/mL 2-10 l injectable 12:00: [place] solution 00 ketOROLAC 0 No 4 days. Raad kenna 15 mg/mL 2-10 l injectable 12:00: [place] solution 00 ketOROLAC 2016-0 No 4 days. Raad kenna 15 mg/mL 2-10 l injectable 12:00: [place] solution 00 ketOROLAC 2016-0 No 4 days. Raad kenna 15 mg/mL 2-10 l injectable 12:00: [place] solution 00 ketOROLAC 2016-0 No 4 days. Raad kenna 15 mg/mL 2-10 l injectable 12:00: [place] solution 00 ketOROLAC 2016-0 No 4 days. Raad kenna 15 mg/mL 2-10 l injectable 12:00: [place] solution 00 ketOROLAC 0 No 4 days. Raad kenna 15 mg/mL 2-10 l injectable 12:00: [place] solution 00 Lovenox No Notes: [facility] 2-10 (Same as: l 10:00: Lovenox) Lovenox No Notes: [facility] 2-10 (Same as: l 10:00: Lovenox) [place] Lovenox 0 No Notes: [facility] 2-10 (Same as: l 10:00: Lovenox) [place] Lovenox 0 No Notes: [facility] 2-10 (Same as: l 10:00: Lovenox) [place] Lovenox 0 No Notes: [facility] 2-10 (Same as: l 10:00: Lovenox) [place] Lovenox No Notes: [facility] 2-10 (Same as: l 10:00: Lovenox) [place] Lovenox 0 No Notes: [facility] 2-10 (Same as: l 10:00: Lovenox) [place] Lovenox 0 No Notes: [facility] 2-10 (Same as: l 10:00: Lovenox) [place] Lovenox 0 No Notes: [facility] 2-10 (Same as: l 10:00: Lovenox) Fentanyl 0 No 50 kg Memoria 2-10 l 09:06: [place] Fentanyl 2016-0 No 50 kg Memoria 2-10 [...] not exceed l Hydrocodone 08:51: 4gm/day of [place] Bitartrate 00 acetaminop 10 MG Oral hen. (Same Tablet as: [place] [[place] 325/10) 10/325] gabapentin No Notes: Memor ia 300 MG Oral 2-10 (Same as: l Capsule 08:51: Neurontin) Herm vivian Robaxin No Notes: [facility] 2-10 (Same l 08:51: as:Robaxin ) ketOROLAC No 15 mg, Memori a 15 mg/mL 2-10 Route: IM, l injectable 08:51: Q6H, kg, Her baker solution 00 Priority: NOW, Start date: 11/10/16 2:51:00 SIDE STAPLER, Duration: 4 day, Stop date: 11/14/16 0:00:00 SIDE STAPLER Acetaminoph No Notes: Do M emoria en 325 MG / 2-10 not exceed l Hydrocodone 08:51: 4gm/day of [place] Bitartrate 00 acetaminop 10 MG Oral hen. (Same Tablet as: [place] [[place] 325/10) 10/325] gabapentin No Notes: Memor ia 300 MG Oral 2-10 (Same as: l Capsule 08:51: Neurontin) [place] Robaxin No Notes: [facility] 2-10 (Same l 08:51: as:Robaxin ) ketOROLAC No 15 mg, Memori a 15 mg/mL 2-10 Route: IM, l injectable 08:51: Q6H, kg, Her baker solution 00 Priority: NOW, Start date: 11/10/16 2:51:00 SIDE STAPLER, Duration: 4 day, Stop date: 11/14/16 0:00:00 SIDE STAPLER Acetaminoph No Notes: Do M emoria en 325 MG / 2-10 not exceed l Hydrocodone 08:51: 4gm/day of [place] Bitartrate 00 acetaminop 10 MG Oral hen. (Same Tablet as: [place] [[place] 325/10) ] gabapentin No Notes: Memor ia 300 MG Oral 2-10 (Same as: l Capsule 08:51: Neurontin) [place] 00 Robaxin No Notes: [facility]oria 2-10 (Same l 08:51: as:Robaxin [place] ) ketOROLAC No 15 mg, Memori a 15 mg/mL 2-10 Route: IM, l injectable 08:51: Q6H, kg, Her baker solution 00 Priority: NOW, Start date: 11/10/16 2:51:00 SIDE STAPLER, Duration: 4 day, Stop date: 11/14/16 0:00:00 SIDE STAPLER Acetaminoph No Notes: Do M emoria en 325 MG / 2-10 not exceed l Hydrocodone 08:51: 4gm/day of [place] Bitartrate 00 acetaminop 10 MG Oral hen. (Same Tablet as: [place] [[place] 325/10) ] gabapentin No Notes: Mem[facility] ia 300 MG Oral 2-10 (Same as: l Capsule 08:51: Neurontin) [place] 00 Robaxin No Notes: [facility]oria 2-10 (Same l 08:51: as:Robaxin [place] ) ketOROLAC No 15 mg, Memori a 15 mg/mL 2-10 Route: IM, l injectable 08:51: Q6H, kg, Her baker solution 00 Priority: NOW, Start date: 11/10/16 2:51:00 SIDE STAPLER, Duration: 4 day, Stop date: 11/14/16 0:00:00 SIDE STAPLER Acetaminoph No Notes: Do M emoria en 325 MG / 2-10 not exceed l Hydrocodone 08:51: 4gm/day of [place] Bitartrate 00 acetaminop 10 MG Oral hen. (Same Tablet as: [place] [[place] 325/10) [address]25] gabapentin No Notes: Memor ia 300 MG Oral 2-10 (Same as: l Capsule 08:51: Neurontin) Herm vivian Robaxin No Notes: [facility]oria 2-10 (Same l 08:51: as:Robaxin [place] ) ketOROLAC No 15 mg, Memori a 15 mg/mL 2-10 Route: IM, l injectable 08:51: Q6H, kg, Her baker solution 00 Priority: NOW, Start date: 11/10/16 2:51:00 SIDE STAPLER, Duration: 4 day, Stop date: 11/14/16 0:00:00 SIDE STAPLER Acetaminoph No Notes: Do M emoria en 325 MG / 2-10 not exceed l Hydrocodone 08:51: 4gm/day of [place] Bitartrate 00 acetaminop 10 MG Oral hen. (Same Tablet as: [place] [[place] 325/10) ] gabapentin No Notes: Memor ia 300 MG Oral 2-10 (Same as: l Capsule 08:51: Neurontin) Herm vivian Robaxin No Notes: [facility]oria 2-10 (Same l 08:51: as:Robaxin [place] 00 ) ketOROLAC No 15 mg, Memori a 15 mg/mL 2-10 Route: IM, l injectable 08:51: Q6H, kg, Her baker solution 00 Priority: NOW, Start date: 11/10/16 2:51:00 SIDE STAPLER, Duration: 4 day, Stop date: 11/14/16 0:00:00 SIDE STAPLER Acetaminoph No Notes: Do M emoria en 325 MG / 2-10 not exceed l Hydrocodone 08:51: 4gm/day of [place] Bitartrate 00 acetaminop 10 MG Oral hen. (Same Tablet as: [place] [[place] 325/10) 10325] gabapentin No Notes: Memor ia 300 MG Oral 2-10 (Same as: l Capsule 08:51: Neurontin) Herm vivian Robaxin No Notes: [facility] 2-10 (Same l 08:51: as:Robaxin [place] ) ketOROLAC 2017-0 No 15 mg, Memori a 15 mg/mL 2-10 Route: IM, l injectable 08:51: Q6H, kg, Her baker solution 00 Priority: NOW, Start date: 11/10/16 2:51:00 SIDE STAPLER, Duration: 4 day, Stop date: 11/14/16 0:00:00 SIDE STAPLER Acetaminoph No Notes: Do M emoria en 325 MG / 2-10 not exceed l Hydrocodone 08:51: 4gm/day of [place] Bitartrate 00 acetaminop 10 MG Oral hen. (Same Tablet as: [place] [[place] 325/10) ] gabapentin 2017 No Notes: Memor ia 300 MG Oral 2-10 (Same as: l Capsule 08:51: Neurontin) Herm vivian Robaxin No Notes: [facility] 2-10 (Same l 08:51: as:Robaxin [place] ) ketOROLAC No 15 mg, Memori a 15 mg/mL 2-10 Route: IM, l injectable 08:51: Q6H, kg, Her baker solution 00 Priority: NOW, Start date: 11/10/16 2:51:00 SIDE STAPLER, Duration: 4 day, Stop date: 11/14/16 0:00:00 SIDE STAPLER Acetaminoph No Notes: Do M emoria en 325 MG / 2-10 not exceed l Hydrocodone 08:51: 4gm/day of [place] Bitartrate 00 acetaminop 10 MG Oral hen. (Same Tablet as: [place] [[place] 325/10) ] gabapentin No Notes: Memor ia 300 MG Oral 2-10 (Same as: l Capsule 08:51: Neurontin) Herm vivian 00 Robaxin No Notes: [facility] 2-10 (Same l 08:51: as:Robaxin [place] ) ketOROLAC 0 No 15 mg, Memori a 15 mg/mL 2-10 Route: IM, l injectable 08:51: Q6H, kg, Her baker solution 00 Priority: NOW, Start date: 11/10/16 2:51:00 SIDE STAPLER, Duration: 4 day, Stop date: 11/14/16 0:00:00 SIDE STAPLER Lurasidone 2017- Yes 20 mg = 1 Me moria [...] nn 00 30 tab, 0 Refill(s) Fluoxetine 2017- No 40 mg = 1 Me moria [...] [Prozac] 00 30 cap, 0 Refill(s) Lurasidone 2016- Yes 20 mg = 1 Me moria [...] kenna 2-10 (Same as: l 08:15: Zofran) [place] 00 MEDICATION WASTE Product Size: 4 mg [...] en 2-10 acetaminop l 08:15: hen 4000 [place] 00 mg/day (4 gm/day). (Same as: Tylenol [...] 4 mg Product Wasted: ___ mg Acetaminoph 2016-0 No Notes: Max Memoria en 2-10 acetaminop l 08:15: hen 4000 [place] 00 mg/day (4 gm/day). (Same as: Tylenol Extra Strength) Ondansetron 2016-0 No Notes: Raad kenna 2-10 (Same as: l 08:15: Zofran) [place] 00 MEDICATION WASTE Product Size: 4 mg Product Wasted: ___ mg Acetaminoph 2016-0 No Notes: Max Memoria en 2-10 acetaminop l 08:15: hen 4000 [place] 00 mg/day (4 gm/day). (Same as: Tylenol Extra Strength) Ondansetron 2017-0 No Notes: Raad kenna 2-10 (Same as: l 08:15: Zofran) [place] 00 MEDICATION WASTE Product Size: 4 mg [...] [facility]oria 2-10 Route: l 07:40: IVP, ONCE, [place] 00 kg, Priority: STAT, Start date: 11/10/16 1:40:00 SIDE STAPLER, Stop date: 11/10/16 1:40:00 SIDE STAPLER Morphine 2017-0 No 4 mg, [facility] 2-10 Route: l 07:40: IVP, ONCE, [place] 00 kg, Priority: STAT, Start date: 11/10/16 1:40:00 SIDE STAPLER, Stop date: 11/10/16 1:40:00 SIDE STAPLER Morphine 2017-0 No 4 mg, [facility] 2-10 Route: l 07:40: IVP, ONCE, [place] 00 kg, Priority: STAT, Start date: 11/10/16 1:40:00 SIDE STAPLER, Stop date: 11/10/16 1:40:00 SIDE STAPLER Morphine 2017-0 No 4 mg, [facility] 2-10 Route: l 07:40: IVP, ONCE, [place] 00 kg, Priority: STAT, Start date: 11/10/16 1:40:00 SIDE STAPLER, Stop date: 11/10/16 1:40:00 SIDE STAPLER Morphine 2017-0 No 4 mg, [facility] 2-10 Route: l 07:40: IVP, ONCE, [place] 00 kg, Priority: STAT, Start date: 11/10/16 1:40:00 SIDE STAPLER, Stop date: 11/10/16 1:40:00 SIDE STAPLER Morphine 2017-0 No 4 mg, [facility] 2-10 Route: l 07:40: IVP, ONCE, [place] 00 kg, Priority: STAT, Start date: 11/10/16 1:40:00 SIDE STAPLER, Stop date: 11/10/16 1:40:00 SIDE STAPLER Morphine 2017-0 No 4 mg, [facility] 2-10 Route: l 07:40: IVP, ONCE, [place] 00 kg, Priority: STAT, Start date: 11/10/16 1:40:00 SIDE STAPLER, Stop date: 11/10/16 1:40:00 SIDE STAPLER Morphine 2017-0 No 4 mg, [facility] 2-10 Route: l 07:40: IVP, ONCE, [place] 00 kg, Priority: STAT, Start date: 11/10/16 1:40:00 SIDE STAPLER, Stop date: 11/10/16 1:40:00 SIDE STAPLER Morphine 2017-0 No 4 mg, [facility] 2-10 Route: l 07:40: IVP, ONCE, [place] 00 kg, Priority: STAT, Start date: 11/10/16 1:40:00 SIDE STAPLER, Stop date: 11/10/16 1:40:00 SIDE STAPLER Dilaudid 2017-0 No 2 mg, [facility] 2-10 Route: l 05:28: IVP, ONCE, [place] 00 kg, Priority: STAT, Start date: 11/09/16 23:28:00 SIDE STAPLER, Stop date: 11/09/16 23:28:00 SIDE STAPLER Dilaudid 2017-0 No 2 mg, [facility] 2-10 Route: l 05:28: IVP, ONCE, [place] 00 kg, Priority: STAT, Start date: 11/09/16 23:28:00 SIDE STAPLER, Stop date: 11/09/16 23:28:00 SIDE STAPLER Dilaudid 2017-0 No 2 mg, [facility] 2-10 Route: l 05:28: IVP, ONCE, [place] 00 kg, Priority: STAT, Start date: 11/09/16 23:28:00 SIDE STAPLER, Stop date: 11/09/16 23:28:00 SIDE STAPLER Dilaudid 2017-0 No 2 mg, [facility] 2-10 Route: l 05:28: IVP, ONCE, [place] 00 kg, Priority: STAT, Start date: 11/09/16 23:28:00 SIDE STAPLER, Stop date: 11/09/16 23:28:00 SIDE STAPLER Dilaudid 2017-0 No 2 mg, [facility] 2-10 Route: l 05:28: IVP, ONCE, [place] 00 kg, Priority: STAT, Start date: 11/09/16 23:28:00 SIDE STAPLER, Stop date: 11/09/16 23:28:00 SIDE STAPLER Dilaudid 2017-0 No 2 mg, [facility] 2-10 Route: l 05:28: IVP, ONCE, [place] 00 kg, Priority: STAT, Start date: 11/09/16 23:28:00 SIDE STAPLER, Stop date: 11/09/16 23:28:00 SIDE STAPLER Dilaudid 2017-0 No 2 mg, [facility] 2-10 Route: l 05:28: IVP, ONCE, [place] 00 kg, Priority: STAT, Start date: 11/09/16 23:28:00 SIDE STAPLER, Stop date: 11/09/16 23:28:00 SIDE STAPLER Dilaudid 2017-0 No 2 mg, [facility] 2-10 Route: l 05:28: IVP, ONCE, [place] 00 kg, Priority: STAT, Start date: 11/09/16 23:28:00 SIDE STAPLER, Stop date: 11/09/16 23:28:00 SIDE STAPLER Dilaudid 2017-0 No 2 mg, [facility] 2-10 Route: l 05:28: IVP, ONCE, [place] 00 kg, Priority: STAT, Start date: 11/09/16 23:28:00 SIDE STAPLER, Stop date: 11/09/16 23:28:00 SIDE STAPLER Sodium 2017-0 No 2,000 mL, Memori a Chloride 2-10 2,000 l 0.154 05:10: ml/hr, [place] MEQ/ML 00 Infuse Injectable Over: 1 Solution hr, Route: IV, 2,000, Drug form: INJ, ONCE, Priority: STAT, kg, Start date: 11/09/16 23:10:00 SIDE STAPLER, Duration: 1 doses or times, Stop date: 11/09/16 23:10:00 SIDE STAPLER Sodium 2017-0 No 2,000 mL, Memori a Chloride 2-10 2,000 l 0.154 05:10: ml/hr, [place] MEQ/ML 00 Infuse Injectable Over: 1 Solution hr, Route: IV, 2,000, Drug form: INJ, ONCE, Priority: STAT, kg, Start date: 11/09/16 23:10:00 SIDE STAPLER, Duration: 1 doses or times, Stop date: 11/09/16 23:10:00 SIDE STAPLER Sodium 2017-0 No 2,000 mL, Memori a Chloride 2-10 2,000 l 0.154 05:10: ml/hr, [place] MEQ/ML 00 Infuse Injectable Over: 1 Solution hr, Route: IV, 2,000, Drug form: INJ, ONCE, Priority: STAT, kg, Start date: 11/09/16 23:10:00 SIDE STAPLER, Duration: 1 doses or times, Stop date: 11/09/16 23:10:00 SIDE STAPLER Sodium 2017-0 No 2,000 mL, Memori a Chloride 2-10 2,000 l 0.154 05:10: ml/hr, [place] MEQ/ML 00 Infuse Injectable Over: 1 Solution hr, Route: IV, 2,000, Drug form: INJ, ONCE, Priority: STAT, kg, Start date: 11/09/16 23:10:00 SIDE STAPLER, Duration: 1 doses or times, Stop date: 11/09/16 23:10:00 [employer] Sodium 2017-0 No 2,000 mL, Memori a Chloride 2-10 2,000 l 0.154 05:10: ml/hr, Jaden MEQ/ML 00 Infuse Injectable Over: 1 Solution hr, Route: IV, 2,000, Drug form: INJ, ONCE, Priority: STAT, kg, Start date: 11/09/16 23:10:00 SIDE ST[employer], Duration: 1 doses or times, Stop date: 11/09/16 23:10:00 [employer] Sodium 2017-0 No 2,000 mL, Memori a Chloride 2-10 2,000 l 0.154 05:10: ml/hr, [place] MEQ/ML 00 Infuse Injectable Over: 1 Solution hr, Route: IV, 2,000, Drug form: INJ, ONCE, Priority: STAT, kg, Start date: 11/09/16 23:10:00 S[employer], Duration: 1 doses or times, Stop date: 11/09/16 23:10:00 [employer] Sodium 2017-0 No 2,000 mL, Memori a Chloride 2-10 2,000 l 0.154 05:10: ml/hr, [place] MEQ/ML 00 Infuse Injectable Over: 1 Solution hr, Route: IV, 2,000, Drug form: INJ, ONCE, Priority: STAT, kg, Start date: 11/09/16 23:10:00 S[employer], Duration: 1 doses or times, Stop date: 11/09/16 23:10:00 [employer] Sodium 2017-0 No 2,000 mL, Memori a Chloride 2-10 2,000 l 0.154 05:10: ml/hr, Jaden MEQ/ML 00 Infuse Injectable Over: 1 Solution hr, Route: IV, 2,000, Drug form: INJ, ONCE, Priority: STAT, kg, Start date: 11/09/16 23:10:00 S[employer], Duration: 1 doses or times, Stop date: 11/09/16 23:10:00 [employer] Sodium 2017-0 No 2,000 mL, Memori a Chloride 2-10 2,000 l 0.154 05:10: ml/hr, Jaden MEQ/ML 00 Infuse Injectable Over: 1 Solution hr, Route: IV, 2,000, Drug form: INJ, ONCE, Priority: STAT, kg, Start date: 11/09/16 23:10:00 [employer], Duration: 1 doses or times, Stop date: 11/09/16 23:10:00 [employer] Zofran 2016-0 No Notes: Memoria 2-10 (Same [...] Memoria 2-10 Route: l 04:50: IVP, ONCE, [place] 00 kg, Priority: STAT, Start date: 11/09/16 22:50:00 [employer], Stop date: 11/09/16 22:50:00 [employer] Morphine 2017-0 No 4 mg, Memoria 2-10 Route: l 04:50: IVP, ONCE, [place] 00 kg, Priority: STAT, Start date: 11/09/16 22:50:00 [employer], Stop date: 11/09/16 22:50:00 [employer] Morphine 2017-0 No 4 mg, Memoria 2-10 Route: l 04:50: IVP, ONCE, [place] 00 kg, Priority: STAT, Start date: 11/09/16 22:50:00 [employer], Stop date: 11/09/16 22:50:00 [employer] Morphine 2017-0 No 4 mg, Memoria 2-10 Route: l 04:50: IVP, ONCE, [place]aden 00 kg, Priority: STAT, Start date: 11/09/16 22:50:00 [employer], Stop date: 11/09/16 22:50:00 [employer] Morphine 2017-0 No 4 mg, Memoria 2-10 Route: l 04:50: IVP, ONCE, [place] 00 kg, Priority: STAT, Start date: 11/09/16 22:50:00 [employer], Stop date: 11/09/16 22:50:00 [employer] Morphine 2017-0 No 4 mg, Memoria 2-10 Route: l 04:50: IVP, ONCE, [place] 00 kg, Priority: STAT, Start date: 11/09/16 22:50:00 [employer], Stop date: 11/09/16 22:50:00 [employer] Morphine 2017-0 No 4 mg, Memoria 2-10 Route: l 04:50: IVP, ONCE, [place] 00 kg, Priority: STAT, Start date: 11/09/16 22:50:00 [employer], Stop date: 11/09/16 22:50:00 [employer] Morphine 2017-0 No 4 mg, Memoria 2-10 Route: l 04:50: IVP, ONCE, [place] 00 kg, Priority: STAT, Start date: 11/09/16 22:50:00 SIDE STAPLER, Stop date: 11/09/16 22:50:00 SIDE STAPLER Morphine 2017-0 No 4 mg, [facility] 2-10 Route: l 04:50: IVP, ONCE, [place] 00 kg, Priority: STAT, Start date: 11/09/16 22:50:00 SIDE STAPLER, Stop date: 11/09/16 22:50:00 SIDE STAPLER Ketamine 2017-0 No 100 mg, Memori a 2-10 Route: l 04:11: IVP, ONCE, [place] 00 kg, Priority: STAT, Start date: 11/09/16 22:11:00 SIDE STAPLER, Stop date: 11/09/16 22:11:00 SIDE STAPLER Ketamine 2017-0 No 100 mg, Memori a 2-10 Route: l 04:11: IVP, ONCE, [place] 00 kg, Priority: STAT, Start date: 11/09/16 22:11:00 SIDE STAPLER, Stop date: 11/09/16 22:11:00 SIDE STAPLER Ketamine 2017-0 No 100 mg, Memori a 2-10 Route: l 04:11: IVP, ONCE, [place] 00 kg, Priority: STAT, Start date: 11/09/16 22:11:00 SIDE STAPLER, Stop date: 11/09/16 22:11:00 SIDE STAPLER Ketamine 2017-0 No 100 mg, Memori a 2-10 Route: l 04:11: IVP, ONCE, [place] 00 kg, Priority: STAT, Start date: 11/09/16 22:11:00 SIDE STAPLER, Stop date: 11/09/16 22:11:00 SIDE STAPLER Ketamine 2017-0 No 100 mg, Memori a 2-10 Route: l 04:11: IVP, ONCE, [place] 00 kg, Priority: STAT, Start date: 11/09/16 22:11:00 SIDE STAPLER, Stop date: 11/09/16 22:11:00 SIDE STAPLER Ketamine 2017-0 No 100 mg, Memori a 2-10 Route: l 04:11: IVP, ONCE, [place] 00 kg, Priority: STAT, Start date: 11/09/16 22:11:00 SIDE STAPLER, Stop date: 11/09/16 22:11:00 SIDE STAPLER Ketamine 2017-0 No 100 mg, Memori a 2-10 Route: l 04:11: IVP, ONCE, [place] 00 kg, Priority: STAT, Start date: 11/09/16 22:11:00 SIDE STAPLER, Stop date: 11/09/16 22:11:00 SIDE STAPLER Ketamine 2017-0 No 100 mg, Memori a 2-10 Route: l 04:11: IVP, ONCE, [place] 00 kg, Priority: STAT, Start date: 11/09/16 22:11:00 SIDE STAPLER, Stop date: 11/09/16 22:11:00 SIDE STAPLER Ketamine 2017-0 No 100 mg, Memori a 2-10 Route: l 04:11: IVP, ONCE, [place] 00 kg, Priority: STAT, Start date: 11/09/16 22:11:00 SIDE STAPLER, Stop date: 11/09/16 22:11:00 SIDE STAPLER Fentanyl 2017-0 No Notes: [facility] 2-10 (Same as: l 04:09: Sublimaze) [place] 00 Preservati ve free. Fentanyl 2017-0 No Notes: [facility]oria 2-10 (Same as: l 04:09: Sublimaze) [place] 00 Preservati ve free. Fentanyl 2017-0 No Notes: [facility]oria 2-10 (Same as: l 04:09: Sublimaze) [place] 00 Preservati ve free. Fentanyl 2017-0 No Notes: [facility]oria 2-10 (Same as: l 04:09: Sublimaze) [place] 00 Preservati ve free. Fentanyl 2017-0 No Notes: [facility] 2-10 (Same as: l 04:09: Sublimaze) [place] 00 Preservati ve free. Fentanyl 2017-0 No Notes: [facility]oria 2-10 (Same as: l 04:09: Sublimaze) [place] 00 Preservati ve free. Fentanyl 2017-0 No Notes: [facility] 2-10 (Same as: l 04:09: Sublimaze) [place] 00 Preservati ve free. Fentanyl 2017-0 No Notes: [facility] 2-10 (Same as: l 04:09: Sublimaze) [place] 00 Preservati ve free. Fentanyl 2017-0 No Notes: [facility] 2-10 (Same as: l 04:09: Sublimaze) [place] 00 Preservati ve free. Fentanyl 2017-0 No [...] Memoria 2-10 (Same as: l 04:08: Sublimaze) [place] 00 Preservati ve free. Fentanyl 2017-0 No Notes: [facility] 2-10 (Same as: l 04:08: Sublimaze) [place] 00 Preservati ve free. Saline 2017-0 No Notes: [facility] Flush 0.9% 2-10 (Same as: l 03:30: BD [place] 00 Posiflush) Saline 2017-0 No Notes: [facility] Flush 0.9% 2-10 (Same as: l 03:30: BD [place] 00 Posiflush) Saline No Notes: [facility] Flush 0.9% 2-10 (Same as: l 03:30: BD [place] 00 Posiflush) Saline No Notes: [facility] Flush 0.9% 2-10 (Same as: l 03:30: BD [place] 00 Posiflush) Saline No Notes: [facility] Flush 0.9% 2-10 (Same as: l 03:30: BD [place] 00 Posiflush) Saline No Notes: [facility] Flush 0.9% 2-10 (Same as: l 03:30: BD [place] 00 Posiflush) Saline No Notes: [facility] Flush 0.9% 2-10 (Same as: l 03:30: BD [place] 00 Posiflush) Saline No Notes: [facility] Flush [...] 1 [place] (PEPCID) 40 1-18 tablet by [facility] lth mg tablet 00:00: mouth 00 daily. traZODone 2015-10 Yes Insomnia, 200mg Take 2 [place]ahn (DESYREL) 1-18 unspecified tablets by [facility] 100 mg 00:00: type mouth at tablet 00 bedtime nightly. tiotropium 2015-10 Yes COPD 1{capsu QD Inhale 1 [place] (SPIRIVA 1-18 (chronic le} capsule by [facility] WITH 00:00: obstructive mouth HANDIHALER) 00 pulmonary daily. 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 remission status unspecified miconazole 2015-10 Yes Jock itch Q.5D Apply to [place] (MICOTIN) 2 0-03 affected Heal th % topical 00:00: area 2 cream 00 times daily. miconazole 2015-10 Yes Jock itch Q.5D Apply to [place] (MICOTIN) 2 0-03 affected Heal th % topical 00:00: area 2 cream 00 times daily. miconazole 2015-10 Yes Jock itch Q.5D Apply to [place] (MICOTIN) 2 0-03 affected Heal th % topical 00:00: area 2 cream 00 times daily. miconazole 2015-10 Yes Jock itch Q.5D Apply to [place] (MICOTIN) 2 0-03 affected Heal th % topical 00:00: area 2 cream 00 times daily. miconazole 2015-10 Yes Jock itch Q.5D Apply to [place] (MICOTIN) 2 0-03 affected Heal th % topical 00:00: area 2 cream 00 times daily. Immunizations Ordered Immunization Filled Immunization Date Status Commen ts Source Name Name Influenza Vaccine 2016-07-03 Completed [facility] 00:00:00 Influenza Vaccine 2016-07-03 Completed [facility] 00:00:00 Influenza Vaccine 2016-07-03 Completed [facility] 00:00:00 Influenza Vaccine 2016-07-03 Completed [facility] 00:00:00 Influenza Vaccine 2016-07-03 Completed [facility] 00:00:00 PPD 2012-02-27 Completed [facility] 00:00:00 PPD 2012-02-27 Completed [facility] 00:00:00 PPD 2012-02-27 Completed [facility] 00:00:00 PPD 2012-02-27 Completed [facility] 00:00:00 PPD 2012-02-27 Completed [facility] 00:00:00 PPD 2011-02-13 Completed [facility] 00:00:00 PPD 2011-02-13 Completed [facility] 00:00:00 PPD 2011-02-13 Completed [facility] 00:00:00 PPD 2011-02-13 Completed [facility] 00:00:00 PPD 2011-02-13 Completed [facility] 00:00:00 Vital Signs Vital Name Observation Time Observation Value Comments Source Systolic blood 2022-09-02 17:19:00 107 mm[Hg] [facility] Diastolic blood 2022-09-02 17:19:00 65 mm[Hg] Unive rsity of pressure [facility] Heart rate 2022-09-02 17:19:00 70 /min [facility] Body temperature 2022-09-02 17:19:00 35.83 Jennifer [facility] Respiratory rate 2022-09-02 17:19:00 18 /min [facility] Oxygen saturation in 2022-09-02 17:19:00 97 /min [facility] [place] [employer] [facility] Body weight 2022-09-01 09:58:00 70.988 kg [facility] BMI 2022-09-01 09:58:00 23.80 kg/m2 [facility] Body height 2022-08-20 00:20:00 172.7 cm [facility] Systolic blood 2022-08-12 03:27:00 120 mm[Hg] [facility] Diastolic blood 2022-08-12 03:27:00 82 mm[Hg] [facility] Heart rate 2022-08-12 03:27:00 74 /min [facility] Respiratory rate 2022-08-12 03:27:00 16 /min [facility] [place] [facility] Oxygen saturation in 2022-08-12 03:27:00 99 /min [facility] [place] [employer] [facility] Body temperature 2022-08-11 23:53:00 36.56 Jennifer [facility] Body height 2022-08-11 23:53:00 172.7 cm [facility] Body weight 2022-08-11 23:53:00 72.576 kg [facility] BMI 2022-08-11 23:53:00 24.33 kg/m2 [facility] Systolic blood 2022-08-09 15:00:00 116 mm[Hg] [facility] Diastolic blood 2022-08-09 15:00:00 81 mm[Hg] [facility] Heart rate 2022-08-09 15:00:00 73 /min [facility] Respiratory rate 2022-08-09 15:00:00 13 /min [facility] [place] [facility] Oxygen saturation in 2022-08-09 15:00:00 100 /min [facility] blood by [employer] Pulse oxim[facility] Body temperature 2022-08-09 14:11:00 36.28 Jennifer [facility] [place] [facility] Body height 2022-08-09 14:11:00 170.2 cm [facility] Body weight 2022-08-09 14:11:00 72.576 kg [facility] BMI 2022-08-09 14:11:00 25.06 kg/m2 [facility] Systolic blood 2022-08-06 17:39:00 109 mm[Hg] [facility] Diastolic blood 2022-08-06 17:39:00 65 mm[Hg] [facility] Heart rate 2022-08-06 17:39:00 83 /min [facility] Body temperature 2022-08-06 17:39:00 36.83 Jennifer [facility] Respiratory rate 2022-08-06 17:39:00 18 /min [facility] Oxygen saturation in 2022-08-06 17:39:00 97 /min [facility] by [employer] [facility] Body weight 2022-08-06 17:38:00 71.986 kg [facility] BMI 2022-08-06 17:38:00 24.86 kg/m2 [facility] Body height 2022-08-03 13:38:00 170.2 cm [facility] Respiratory rate 2022-08-05 15:10:00 19 /min [facility] [place] [facility] Systolic blood 2022-08-05 13:45:00 116 mm[Hg] [facility] Diastolic blood 2022-08-05 13:45:00 70 mm[Hg] [facility] Heart rate 2022-08-05 13:45:00 68 /min [facility] Body temperature 2022-08-05 13:45:00 36.78 Jennifer [facility] [place] [facility] Respiratory rate 2022-08-05 13:45:00 18 /min [facility] Oxygen saturation in 2022-08-05 13:45:00 99 /min [facility] [place] [employer] Body weight 2022-08-05 09:37:00 68.493 kg [facility] BMI 2022-08-05 09:37:00 24.86 kg/m2 [facility] Body height 2022-08-03 13:38:00 170.2 cm [facility] Systolic blood 2022-07-13 23:00:00 117 mm[Hg] [facility] Diastolic blood 2022-07-13 23:00:00 79 mm[Hg] [facility] Heart rate 2022-07-13 23:00:00 73 /min [facility] Oxygen saturation in 2022-07-13 23:00:00 99 /min [facility] [place] [facility] Respiratory rate 2022-07-13 22:00:00 18 /min [facility] Body temperature 2022-07-13 19:10:00 36.89 Jennifer [facility] Body height 2022-07-13 19:10:00 172.7 cm [facility] Body weight 2022-07-13 19:10:00 68.04 kg [facility] BMI 2022-07-13 19:10:00 22.81 kg/m2 [facility] Systolic blood 2022-06-08 19:28:00 114 mm[Hg] [facility] Diastolic blood 2022-06-08 19:28:00 78 mm[Hg] [facility] Heart rate 2022-06-08 19:28:00 90 /min [facility] Body temperature 2022-06-08 19:28:00 36.78 Jennifer [facility] Respiratory rate 2022-06-08 19:28:00 17 /min [facility] Body height 2022-06-08 19:28:00 172.7 cm [facility] [place] [facility] Body weight 2022-06-08 19:28:00 67.767 kg [facility] BMI 2022-06-08 19:28:00 22.72 kg/m2 [facility] Oxygen saturation in 2022-06-08 19:28:00 97 /min [facility] blood by [facility] Pulse oximetry Branch Systolic blood 2022-05-28 12:37:00 101 mm[Hg] [facility] Diastolic blood 2022-05-28 12:37:00 70 mm[Hg] [facility] Heart rate 2022-05-28 12:37:00 69 /min [facility] Body temperature 2022-05-28 12:37:00 36.67 Jennifer [facility] Respiratory rate 2022-05-28 12:37:00 18 /min [facility] Body weight 2022-05-28 12:37:00 66.271 kg [facility] BMI 2022-05-28 12:37:00 22.21 kg/m2 [facility] Oxygen saturation in 2022-05-28 12:37:00 97 /min [facility] by [facility] Pulse oximetry Branch Body height 2022-05-27 23:06:00 172.7 cm [facility] Systolic blood 2022-01-02 05:10:00 109 mm[Hg] [facility] Diastolic blood 2022-01-02 05:10:00 80 mm[Hg] [facility] Heart rate 2022-01-02 05:10:00 106 /min [facility] Body temperature 2022-01-02 05:10:00 37.22 Jennifer [facility] Respiratory rate 2022-01-02 05:10:00 20 /min [facility] Body height 2022-01-02 05:10:00 172.7 cm [facility] Body weight 2022-01-02 05:10:00 63.504 kg [facility] BMI 2022-01-02 05:10:00 21.29 kg/m2 [facility] Oxygen saturation in 2022-01-02 05:10:00 98 /min [facility] [place] [employer] [facility] Pulse oxim[facility] Branch Systolic blood 2021-09-27 08:13:00 112 mm[Hg] [facility] Diastolic blood 2021-09-27 08:13:00 72 mm[Hg] [facility] Heart rate 2021-09-27 08:13:00 77 /min [facility] Body temperature 2021-09-27 08:13:00 36.72 Jennifer [facility] Respiratory rate 2021-09-27 08:13:00 18 /min [facility] Body height 2021-09-27 08:13:00 170.2 cm [facility] Body weight 2021-09-27 08:13:00 68.04 kg [facility] BMI 2021-09-27 08:13:00 23.49 kg/m2 [facility] Oxygen saturation in 2021-09-27 08:13:00 98 /min [facility] [place] [employer] [facility] Pulse oximetry Branch Height/Length 2021-10-18 09:59:29 [...] Systolic (mm Hg) 2016-12-20 16:24:00 Raad rial [place] Diastolic (mm Hg) 2016-12-20 16:24:00 Mem orial [place] Respitory Rate 2016-12-20 13:24:00 Memori al [place] Systolic (mm Hg) 2016-12-20 13:24:00 Raad rial [place] Diastolic (mm Hg) 2016-12-20 13:24:00 Mem orial [place] Heart Rate 2016-12-20 13:24:00 [facility] [place] Temperature Oral (F) 2016-12-20 13:24:00 98.0 F [facility] [place] Respitory Rate 2016-12-20 09:00:00 Memori al [place] Systolic (mm Hg) 2016-12-20 09:00:00 Raad rial [place] Diastolic (mm Hg) 2016-12-20 09:00:00 Mem orial [place] Temperature Oral (F) 2016-12-20 09:00:00 97.2 F [facility] [place] Heart Rate 2016-12-20 09:00:00 [facility] [place] Height 2016-12-19 23:06:00 172.72 cm [facility] [place] BMI Calculated 2016-12-19 23:06:00 Mem[facility] al [place] Weight 2016-12-19 23:06:00 [facility] [place] Weight 2016-12-18 18:24:00 [facility] [place] Height 2016-12-18 18:24:00 172.72 cm [facility] [place] BMI Calculated 2016-12-18 18:24:00 Memori al [place] Temperature Oral (F) 2016-11-19 00:28:00 97.0 F [facility] [place] Heart Rate 2016-11-19 00:28:00 [facility] [place] Respitory Rate 2016-11-19 00:28:00 Memori al [place] Systolic (mm Hg) 2016-11-19 00:28:00 Raad rial [place] Diastolic (mm Hg) 2016-11-19 00:28:00 Mem orial [place] Height 2016-11-19 00:28:00 177.8 cm [facility] [place] BMI Calculated 2016-11-19 00:28:00 Memori al [place] Weight 2016-11-19 00:28:00 [facility] [place] Height 2016-11-12 13:46:00 172.72 cm [facility] [place] BMI Calculated 2016-11-12 13:46:00 Memori al [place] Weight 2016-11-12 13:46:00 [facility] [place] Heart Rate 2016-11-12 13:46:00 [facility] [place] Respitory Rate 2016-11-12 13:46:00 Memori al [place] Temperature Oral (F) 2016-11-12 13:46:00 97.5 F [facility] [place] Systolic (mm Hg) 2016-11-12 13:46:00 Raad rial [place] Diastolic (mm Hg) 2016-11-12 13:46:00 Mem orial [place] Respitory Rate 2016-11-11 18:59:00 Memori al [place] Heart Rate 2016-11-11 18:59:00 [facility] [place] Temperature Oral (F) 2016-11-11 18:59:00 97.7 F [facility] [place] Systolic (mm Hg) 2016-11-11 18:59:00 Raad rial [place] Diastolic (mm Hg) 2016-11-11 18:59:00 Mem orial [place] Temperature Oral (F) 2016-11-11 13:30:00 97.5 F [facility] [place] Systolic (mm Hg) 2016-11-11 13:30:00 Raad rial [place] Diastolic (mm Hg) 2016-11-11 13:30:00 Mem orial [place] Respitory Rate 2016-11-11 13:30:00 Memori al [place] Heart Rate 2016-11-11 13:30:00 [facility] [place] Heart Rate 2016-11-11 09:29:00 [facility] [place] Temperature Oral (F) 2016-11-11 09:29:00 97.8 F [facility] [place] Respitory Rate 2016-11-11 09:29:00 Memori al [place] Systolic (mm Hg) 2016-11-11 09:29:00 Raad rial [place] Diastolic (mm Hg) 2016-11-11 09:29:00 Mem orial [place] Weight 2016-11-10 10:09:00 [facility] [place] BMI Calculated 2016-11-10 10:09:00 Memori al [place] Height 2016-11-10 10:09:00 172.72 cm [facility] [place] Procedures Procedure Date / Time Performing Clinician Source Performed VANCOMYCIN TROUGH 2022-09-01 22:13:00 Enrique Martinez [facility] BASIC METABOLIC PANEL 2022-08-31 10:48:00 Drake Duggan [facility] (NA, K, CL, CO2, GLUCOSE, Medica l Branch BUN, CREATININE, [place]) CBC WITH DIFF 2022-08-31 10:48:00 Drake Duggan [facility] VANCOMYCIN TROUGH 2022-08-30 09:53:00 Jennifer Frankel [facility] BASIC METABOLIC PANEL 2022-08-29 10:40:[address] ([facility], K, CL, CO2, GLUCOSE, Medica l Branch BUN, CREATININE, CA) CBC WITH DIFF 2022-08-29 10:40:00 Drake Duggan [facility] BASIC METABOLIC PANEL 2022-08-25 06:21:00 Francine Garvin [facility] (NA, K, CL, CO2, GLUCOSE, Medica l Branch BUN, CREATININE, CA) VANCOMYCIN TROUGH 2022-08-25 06:21:00 Zaida [facility] CBC WITH DIFF 2022-08-25 06:21:00 Francine Garvin [facility] URINE DRUG (IMMUNOASSAY) 2022-08-24 06:25:00 Francine Garvin [facility] DRUG [facility] SCREEN CBC WITH DIFF 2022-08-23 10:21:00 Francine Garvin [facility] DUPLEX VENOUS LEG LEFT - 2022-08-21 14:41:00 Americo Alfonso [facility] BY VASCULAR LAB [facility] BASIC METABOLIC PANEL 2022-08-21 09:11:00 Drake Duggan [facility] (NA, K, CL, CO2, GLUCOSE, Medica l Branch BUN, CREATININE, CA) CBC WITH DIFF 2022-08-21 09:11:00 Drake Duggan [facility] VANCOMYCIN TROUGH 2022-08-21 06:07:00 Fermin Schmidt [facility] CT ANKLE LEFT W CONTRAST 2022-08-20 16:19:30 Enrique Martinez [facility] BASIC METABOLIC PANEL 2022-08-20 09:58:00 Enrique Martinez [facility] (NA, K, CL, CO2, GLUCOSE, Medica l Branch BUN, CREATININE, CA) CBC WITH DIFF 2022-08-20 09:58:00 Juan Enrique Saline o [facility] LACTIC ACID WHOLE BLOOD 2022-08-20 04:18:00 Ursula Merino [facility] CT TIBIA FIBULA LEFT WO 2022-08-20 03:19:00 Americo Alfonso [facility] BLOOD CULTURE SCREEN 2022-08-19 21:25:00 Ursula Merino [facility] BLOOD CULTURE SCREEN 2022-08-19 21:24:00 [facility] LACTIC ACID WHOLE BLOOD 2022-08-19 21:24:00 Ursula Merino Un [facility] XR FOOT 3+ VW LEFT 2022-08-19 21:19:46 Ursula Merino [facility] XR TIBIA FIBULA 2 VW LEFT 2022-08-19 21:19:46 Wilber [facility] COMP. METABOLIC PANEL 2022-08-19 21:13:00 Ursula Merino [facility] ([id number]) [facility] CBC WITH DIFF 2022-08-19 21:13:00 Wilber [facility] XR KUB 2022-08-12 00:48:03 Otto Tao [facility] XR ANKLE <3 VW LEFT 2022-08-12 00:48:03 Otto Tao [facility] XR TIBIA FIBULA 2 VW LEFT 2022-08-12 00:48:03 Otto Tao [facility] BASIC METABOLIC PANEL 2022-08-12 00:22:00 Otto Tao [facility] (NA, K, CL, CO2, GLUCOSE, Medica l Branch BUN, CREATININE, CA) CBC WITH DIFF 2022-08-12 00:22:00 Otto Tao [facility] XR TIBIA FIBULA 2 VW LEFT 2022-08-09 14:39:53 Hao Gongora [facility] BASIC METABOLIC PANEL 2022-08-06 11:36:00 [facility], [facility], CL, CO2, GLUCOSE, Medica l Branch BUN, CREATININE, CA) VANCOMYCIN TROUGH 2022-08-06 11:36:00 Fermin Schmidt [facility] CBC WITH DIFF 2022-08-06 11:36:00 Francine Garvin [facility] BASIC METABOLIC PANEL 2022-08-06 11:36:00 [facility] ([facility], [facility], CL, CO2, GLUCOSE, Medica l Branch BUN, CREATININE, CA) VANCOMYCIN TROUGH 2022-08-06 11:36:00 Fermin Schmidt [facility] CBC WITH DIFF 2022-08-06 11:36:00 Francine Garvin [facility] MRSA / MSSA SCREEN BY 2022-08-05 16:52:00 Matt Robles [facility] [place] PCR, NAR Medical Branch MRSA / MSSA SCREEN BY 2022-08-05 16:52:00 Matt Robles [facility] [place] PCR, NARES [facility] ASPIRATE OR ABSCESS 2022-08-05 15:08:00 Matt Robles [facility] [place] CULTURE(AEROBIC/ANAEROBIC Medica l Branch ) ASPIRATE OR ABSCESS 2022-08-05 15:08:00 Matt Robles [facility] [place] CULTURE(AEROBIC/ANAEROBIC Medica [facility] Branch ) FL TIME (NON-REPORTABLE) 2022-08-05 15:03:44 Matt Robles [facility] FL TIME (NON-REPORTABLE) 2022-08-05 15:03:44 Matt Robles [facility] ASPIRATE OR ABSCESS 2022-08-05 14:40:00 Matt Robles [facility] [place] CULTURE(AEROBIC/ANAEROBIC Medica l Branch ) ASPIRATE OR ABSCESS 2022-08-05 14:40:00 Matt Robles [facility] [place] CULTURE(AEROBIC/ANAEROBIC Medica [facility] Branch ) INTUBATION 2022-08-05 14:11:00 Bharathi Roth [facility] ANKLE HARDWARE REMOVAL 2022-08-05 13:47:00 Matt Robles [facility] BASIC METABOLIC PANEL 2022-08-05 10:25:00 Francine Garvin [facility] [place] (NA, K, CL, CO2, GLUCOSE, Medica l Branch BUN, CREATININE, CA) VANCOMYCIN TROUGH 2022-08-05 10:25:00 Jennifer Frankel [facility] CBC WITH DIFF 2022-08-05 10:25:00 Francine Garvin [facility] BASIC METABOLIC PANEL 2022-08-05 10:25:00 Francine Garvin [facility] [place] (NA, K, CL, CO2, GLUCOSE, Medica l Branch BUN, CREATININE, CA) VANCOMYCIN TROUGH 2022-08-05 10:25:00 Jennifer Frankel [facility] CBC WITH DIFF 2022-08-05 10:25:00 Francine Garvin [facility] MAGNESIUM 2022-08-04 09:03:00 Jennifer Frankel [facility] BASIC METABOLIC PANEL 2022-08-04 09:03:00 Jennifer Frankel [facility] (NA, K, CL, CO2, GLUCOSE, Medica l Branch BUN, CREATININE, CA) CBC WITH DIFF 2022-08-04 09:03:00 Jennifer Frankel [facility] MAGNESIUM 2022-08-04 09:03:00 Jennifer Frankel [facility] BASIC METABOLIC PANEL 2022-08-04 09:03:00 Jennifer Frankel [facility] (NA, K, CL, CO2, GLUCOSE, Medica l Branch BUN, CREATININE, CA) CBC WITH DIFF 2022-08-04 09:03:00 Jennifer Frankel [facility] DUPLEX ARTERIAL LEG LEFT 2022-08-03 18:48:00 Jennifer Frankel [facility] - BY VASCULAR LAB [facility] DUPLEX ARTERIAL LEG LEFT 2022-08-03 18:48:00 Jennifer Frankel [facility] - BY VASCULAR LAB [facility] MRSA / MSSA SCREEN BY 2022-08-03 18:26:00 Jennifer Frankel [facility] S[facility]EN BY 2022-08-03 18:26:00 Jennifer Frankel [facility] TRANSTHORACIC ECHO (TTE) 2022-08-03 16:02:00 [facility] AND Medical B [place] COLOR TRANSTHORACIC ECHO (TTE) 2022-08-03 16:02:00 Jennifer Frankel [facility] LIMITED W/ DOPPLER AND Medical B [facility] COLOR WOUND/ASPIRATE OR ABSCESS 2022-08-03 11:02:00 [facility] WOUND CULTURE 2022-08-03 11:02:00 Andrea Hernandez [facility] WOUND/ASPIRATE OR ABSCESS 2022-08-03 11:02:00 [facility] WOUND CULTURE 2022-08-03 11:02:00 Andrea Hernandez [facility] BLOOD CULTURE SCREEN 2022-08-03 10:50:00 Andrea Hernandez [facility] BLOOD CULTURE SCREEN 2022-08-03 10:50:00 Andrea Hernandez [facility] XR ANKLE 3+ VW LEFT 2022-08-03 10:41:15 Andrea Hernandez [facility] XR ANKLE 3+ VW LEFT 2022-08-03 10:41:15 Andrea Hernandez [facility] COMP. METABOLIC PANEL 2022-08-03 10:04:00 Andrea Hernandez [facility] ([id number]) Medical Branch SEDIMENTATION RATE 2022-08-03 10:04:00 Andrea Hernandez [facility] CBC WITH DIFF 2022-08-03 10:04:00 Andrea Hernandez [facility] COMP. METABOLIC PANEL 2022-08-03 10:04:00 Andrea Hernandez [facility] ([id number]) Medical Branch SEDIMENTATION RATE 2022-08-03 10:04:00 Andrea Hernandez [facility] CBC WITH DIFF 2022-08-03 10:04:00 Andrea Hernandez [facility] NOTICE OF PRIVACY 2022-08-03 09:48:04 Doctor Rich [facility] NOTICE OF PRIVACY 2022-08-03 09:48:04 Doctor Rich, [facility] CONSENT/REFUSAL FOR 2022-08-03 09:47:46 Doctor Rich [facility] DIAGNOSIS AND TREATMENT [facility] CONSENT/REFUSAL FOR 2022-08-03 09:47:46 Doctor Rich [facility] DIAGNOSIS AND TREATMENT [facility] HOSPITAL ADMISSION 2022-08-03 05:01:00 Doctor Rich [facility] CT ABDOMEN PELVIS W 2022-07-13 21:14:[address] [facility] CONTRAST Medical Branch US SCROTUM AND CONTENTS 2022-07-13 21:08:15 Ann Patricia [facility] URINALYSIS 2022-07-13 20:30:00 Ann Patricia [facility] COMP. METABOLIC PANEL 2022-07-13 20:12:00 Ann Patricia [facility] ([id number]) [facility] CBC WITH DIFF 2022-07-13 20:12:00 Ann Patricia [facility] ASSIGNMENT OF BENEFITS 2022-06-08 19:18:51 Doctor Unassigned, [facility] MAGNESIUM 2022-05-28 09:29:00 Jostin [facility] BASIC METABOLIC PANEL 2022-05-28 09:29:00 Jennifer Frankel [facility] (NA, K, CL, CO2, GLUCOSE, Medica l Branch BUN, CREATININE, CA) N-TERMINAL PRO-BNP 2022-05-28 09:29:00 Shaun Laguerre [facility] TROPONIN I 2022-05-28 03:58:00 David [facility] LIPID PANEL ([id number])(TOTAL 2022-05-28 03:58:00 David Oneil [facility] CHOLESTEROL, [facility] TRIGLYCERIDES, HDL) GLYCOSYLATED HEMOGLOBIN 2022-05-28 03:58:00 David [facility] (A1C) [facility] D-DIMER 2022-05-28 03:58:00 David [facility] TROPONIN I 2022-05-27 23:54:00 Jostin [facility] COVID-19 (ID NOW RAPID 2022-05-27 20:31:00 Yeyo Rogers [facility] TESTING) [facility] XR CHEST 1 VW 2022-05-27 19:33:15 Yeyo Rogers [facility] CREATINE KINASE 2022-05-27 19:10:00 Yeyo Rogers [facility] TROPONIN I 2022-05-27 19:10:00 Yeyo Rogers [facility] COMP. METABOLIC PANEL 2022-05-27 19:10:00 Yeyo Rogers [facility] ([id number]) Medical Branch CBC WITH DIFF 2022-05-27 19:10:00 Yeyo Rogers [facility] CT HEAD WO CONTRAST 2022-01-02 05:55:20 Nestor Hammond [facility] CONSENT/REFUSAL FOR 2022-01-02 05:02:45 [facility] DI[facility] TREATMENT Jo[facility] CONSENT/REFUSAL FOR 2021-09-27 07:58:16 Doctor [facility]assigned, [facility] DIAGNOSIS AND TREATMENT Joice [facility] Eye reconstruction 1993-10-01 00:00:00 [facility] Nose reconstruction 1991-10-01 00:00:00 [facility] Tonsillectomy and 1972-10-01 00:00:00 [facility] adenoidectomy Fracture care [facility] Plan of Care Planned Activity Planned Date Details Comments Source Future Scheduled Test 2023-07-01 00:00:00 IMM Influenza [facility] Seasonal (>/= 19 yrs) [code = IMM Influenza Seasonal (>/= 19 yrs)] Future Scheduled Test 2023-07-01 00:00:00 IMM Influenza [facility] Seasonal (>/= 19 yrs) [code = IMM Influenza Seasonal (>/= 19 yrs)] Future Scheduled Test 2023-07-01 00:00:00 IMM Influenza [facility] Seasonal (>/= 19 yrs) [code = IMM Influenza Seasonal (>/= 19 yrs)] Future Scheduled Test 2022-07-01 00:00:00 IMM Influenza [facility] Seasonal (>/= 19 yrs) [code = IMM Influenza Seasonal (>/= 19 yrs)] Future Scheduled Test 2022-07-01 00:00:00 IMM Influenza [facility] Seasonal (>/= 19 yrs) [code = IMM Influenza Seasonal (>/= 19 yrs)] Future Scheduled Test 2017 00:00:00 Screening for [facility] malignant neoplasm of colon (procedure) [code = 226292905] Future Scheduled Test 2017 00:00:00 Screening for [facility] malignant neoplasm of colon (procedure) [code = 084896698] Future Scheduled Test 2017 00:00:00 Screening for [facility] malignant neoplasm of colon (procedure) [code = 761702352] Future Scheduled Test 2017 00:00:00 Screening for [facility] malignant neoplasm of colon (procedure) [code = 126062672] Future Scheduled Test 2017 00:00:00 Screening for [facility] malignant neoplasm of colon (procedure) [code = 410397301] Future Scheduled Test 1967 00:00:00 COVID-19 Vaccine (#1) [facility] [code = COVID-19 Vaccine (#1)] Future Scheduled Test 1967 00:00:00 COVID-19 Vaccine (#1) [facility] [code = COVID-19 Vaccine (#1)] Future Scheduled Test 1967 00:00:00 COVID-19 Vaccine (#1) [facility] [code = COVID-19 Vaccine (#1)] Future Scheduled Test 1967 00:00:00 COVID-19 Vaccine (#1) [facility] [code = COVID-19 Vaccine (#1)] Future Scheduled Test 1967 00:00:00 COVID-19 Vaccine (#1) [facility] [code = COVID-19 Vaccine (#1)] Future Scheduled Test 1967 00:00:00 Fluoride Varnish [facility] [code = Fluoride Varnish] Future Scheduled Test 1967 00:00:00 Fluoride Varnish [facility] [code = Fluoride Varnish] Encounters Start End Encounter Admission Attending Care Care Encounter Source Date/Time Date/Time Type Type Clinicians Facility Department ID 2022-01-02 Outpatient [facility] [id number] [facility] 00:16:10 [id number] [facility] 2016-11-13 Inpatient E [facility] [id number] St. 23:30:00 [facility] 2023-01-30 2023-01-30 Outpatient R BENI [facility] [id number] Univers 14:50:00 14:50:00 WENDY perea [facility] 2022-09-04 2022-09-04 Transition JOSE Rhodes 1.2.840.114 [id number] Univers 00:00:00 00:00:00 of Care Marcia ROLLINS 350.1.13.10 i ty [place] [id number] [facility] 403 Center 2022-08-19 2022-09-02 Inpatient X ARLINJACKY [facility] ROBERT [id number] Univers 14:48:00 12:18:00 [facility] 2022-08-19 2022-09-02 [facility] Ursula Merino [facility] 1 .2.840.114 [id number] Univers 14:48:00 12:18:00 Encounter Enrique Martinez VIVIENNE 350.1.13.10 ity [facility] [place] [id number] [address] 2022-08-11 2022-08-11 Emergency X DINH [facility] ERT [id number] Univers 17:59:00 21:40:00 OTTO perea [facility] 2022-08-11 2022-08-11 Emergency [facility] 1.2.345.900 [id number] Univers 17:59:00 21:40:00 Otto [place] 350.1.13.10 i ty [place] [id number] [address] 2022-08-09 2022-08-09 Emergency X [facility] ERT [id number] Univers 08:09:00 09:54:00 [facility] 2022-08-09 2022-08-09 Emergency [facility] 1.2.714.090 [id number] Univers 08:09:00 09:54:00 Hao [place] 350.1.13.10 i ty [facility] [place] [id number] [address] 2022-08-08 2022-08-08 Transition JOSE Rhodes 1.2.840.114 [id number] Univers 00:00:00 00:00:00 of Care Marcia ROLLINS 350.1.13.10 i ty [place] [id number] [facility] 403 Center 2022-08-03 2022-08-06 [facility] [id number] Univers 05:04:00 15:42:[address] [facility] 2022-08-03 2022-08-06 Hospital Andrea Henrandez [facility] 1.2.840. 114 [id number] Univers 05:04:00 15:42:00 Encounter Kimberlyn Ely VIVIENNE 350.1.13.10 ity of Jennifer Frankel [place] 4.2.7.2.686 [facility] [id number] [facility] 081 Branch 2022-08-05 2022-08-05 Anesthesia GonzalezBharathi [facility] 1.2.8 40.114 [id number] Univers 09:02:00 10:15:00 Event Gene Lamontenaheed [place] 35 0.1.13.10 [place] [id number] [facility] 020 Branch 2022-08-05 2022-08-05 Surgery Margaret [facility] 1.2.332.555 [id number] Univers 09:05:00 10:12:00 Matt [place] 350.1.13.10 i ty [place] [id number] [facility] 020 Branch 2022-07-13 2022-07-[address] [facility] ERT [id number] Univers 14:11:00 19:47:[address] [facility] 2022-07-13 2022-07-13 Emergency [facility] 1.2.235.837 [id number] Univers 14:11:00 19:47:00 Ann [place] 350.1.13.10 it[place] [id number] [facility] 084 Branch 2022-06-08 2022-06-08 Urgent Ursula Song [facility] 1.2.840.114 [id number] Univers 14:20:00 14:40:00 Care [facility] 350.1.13.10 ity of [place] 4.2.7.2.686 [place] as KENRICK?BLEA [id number] [place] dical [address] MEDICAL OFFICE BUILDING 2022-06-08 2022-06-08 Outpatient R AMY [facility] [id number] Univers 14:20:00 14:20:00 JOAQUIN eliazar [facility] 2022-06-08 2022-06-08 Orders Doctor PIPO 1.2.840.114 [id number] Univers 00:00:00 00:00:00 Only Unassigned, ISSA 350.1.13.[address] [facility] 4.2.7.2.686 [facility] [id number] [address] 2022-05-27 2022-05-28 Outpatient X JOSTIN [facility] ROBERT [id number] Univers 14:03:00 11:28:00 JENNIFER perea [facility] 2022-05-27 2022-05-28 Emergency Mariaelena Mata [facility] 1.2.8 40.114 [id number] Univers 14:03:00 11:28:00 Yeyo Rogers 350.1.13.10 ity Jennifer Frankel 4.2.7.2.686 [facility] [id number] [address] 2022-01-02 2022-01-02 Emergency X [facility] ERT [id number] Univers 00:16:00 01:18:00 NESTOR najerajairon [facility] 2022-01-02 2022-01-02 Emergency [facility] 1.2.485.117 [id number] Univers 00:16:00 01:18:00 Nestor [place] 350.1.13.10 i ty of [facility] 4.2.7.2.686 [facility] [id number] [address] 2021-09-27 2021-09-27 Emergency X ROLAN [facility] ERT [id number] Univers 02:16:00 02:45:00 HAO perea [facility] 2021-09-27 2021-09-27 Emergency [facility] 1.2.018.001 [id number] Univers 02:16:00 02:45:00 Hao [place] 350.1.13.10 i ty of [facility] 4.2.7.2.686 [facility] [id number] [facility] 084 Branch 2021-09-27 2021-09-27 Orders Doctor PIPO 1.2.840.114 [id number] Univers 00:00:00 00:00:00 Only Unassigned, ISSA 350.1.13.10 ity of Joice [facility] 4.2.7.2.686 [facility] [id number] [facility] 009 Branch 2020-01-05 2020-01-05 [facility] 1.2.840.114 [id number] 12:30:57 23:59:00 Encounter Pretty GUILLEN 350.1.13.10 MEDICAL 42.7.2.686 [place] [id number] 2020-01-05 2020-01-05 [facility] 1.2.840.114 [id number] [facility] 12:30:57 23:59:00 Encounter Pretty MAYORGAS 350.1.13.10 ity of [facility] 4.2.7.2.686 [facility] [id number] [facility] 060 Branch 2020-01-05 2020-01-05 Emergency [facility] [id number] 18:04:00 18:04:00 [facility] 2020-01-05 2020-01-05 Emergency [facility] [id number] 18:04:00 18:04:00 [id number] [facility] 2020-01-05 2020-01-05 Outpatient Angela SMALL [facility] [id number] Univers 00:00:00 00:00:00 PRETTY perea o [facility] 2016-12-19 2016-12-20 Inpatient [facility] [id number] Memoria 11:27:00 22:08:00 r Jaden [address] [place] [address] 2016-12-19 2016-12-20 Inpatient [facility] [id number] Memoria 11:27:00 22:08:00 angela Stanley [address] [place] [address] 2016-12-19 2016-12-20 Outpatient Be [facility] [id number] 06:27:00 17:08:00 Luis Fernando Leo 2016-11-19 2016-11-19 [facility] [id number] Memoria 00:24:00 03:23:00 r [place] 02 [facility] 2016-11-19 2016-11-19 [facility] [id number] Memoria 00:24:00 03:23:00 r [place] 02 [facility] 2016-11-18 2016-11-18 Outpatient Chris [facility] [id number] 18:24:00 21:23:00 Arminda Ramirez 2016-11-12 2016-11-12 [facility] [id number] Memoria 13:43:00 15:54:00 r [place] [facility] 2016-11-12 2016-11-12 [facility] [id number] Memoria 13:43:00 15:54:00 r [place] [facility] 2016-11-12 2016-11-12 Outpatient Shahla Madden [facility] [id number] 07:43:00 09:54:00 Jonah 2016-11-10 2016-11-11 [facility] [id number] Memoria 03:20:00 20:50:00 r [place] [facility] 2016-11-10 2016-11-11 [facility]patient [facility] [id number] Memoria 03:20:00 20:50:00 r [place] [facility] 2016-11-09 2016-11-11 Outpatient Ela Garvin [facility] [id number] 21:20:00 14:50:00 00 Results Test Description Test Time Test Comments Results Result Comments Source Vancomycin Trough Level - Draw random trough 09/01/22 at 1545 2022-09-01 23:22:38 dose. Test Item Value Reference Range Interpretation Comme nts VANCO TROUGH (test code = 2703914623) 8.2 ug/mL 10.0-20.0 L HERVE (test code = HERVE) Toxic Range: ?>20 ug/mL 15-20 ug/mL is recommended for severe infection or when Vancomycin GOPAL is greater than or equal to 2. Lab Interpretation (test code = Abnormal 51953-7) [facility] METABOLIC PANEL (NA, K, CL, CO2, GLUCOSE, BUN, CREATININE, CA)2022-08-31 12:06:30 Test Item Value Reference Range Interpretation Comments NA (test code = 140 mmol/L 135-145 4300884580) K (test code = 3.9 mmol/L 3.5-5.0 7163550985) CL (test code = 103 mmol/L 98-108 7301665829) CO2 TOTAL (test code 27 mmol/L 23-31 = 2764653270) AGAP (test code = 2-16 3032640648) BUN (test code = 14 mg/dL 7-23 8442460017) GLUCOSE (test code = 98 mg/dL 70-110 9307674860) CREATININE (test code 0.82 mg/dL 0.60-1.25 = 5579998410) CALCIUM (test code = 9.2 mg/dL 8.6-10.6 8130676901) eGFR (test code = mL/min/1.73m2 6678151310) HERVE (test code = HERVE) Association of [...] or urine or abnormalities in imaging tests). [facility] WITH [id number] 11:24:37 Test Item Value Reference Range Interpretation [...] RDW-SD (test code = 41.0 fL 38.5-51.6 71865-9) RDW-CV (test code = 11.9 % 12.1-15.4 L 788-0) PLT (test code = See_Comment [Automated 777-3) message] The sy stem which generated this result transmitted reference range : 150 - 328 10*3/ ?L. The reference r natasha was not used to interpret this result as normal/abnormal . MPV (test code = 8.3 fL 9.8-13.0 L 43571-7) NRBC/100 WBC (test See_Comment [Automat ed code = 5609471205) message] The system which generated this result transmitted reference range : 0.0 - 10.0 /100 WBCs. The refer ence range was not u sed to interpret th is result as normal/abnormal . NRBC x10^3 (test code See_Comment [Auto mated = 0133301822) message] The s ystem which generated this result transmitted reference range : 10*3/?L. The reference range was not used to interpret this result as normal/abnormal . GRAN MAT (NEUT) % 52.7 % (test code = 770-8) IMM GRAN % (test code 0.40 % = 7173229478) LYMPH % (test code = 33.9 % 736-9) MONO % (test code = 8.1 % 5905-5) EOS % (test code = 4.3 % 713-8) BASO % (test code = 0.6 % 706-2) GRAN MAT x10^3(ANC) 4.75 10*3/uL 1.99-6.95 (test code = 8346056209) IMM GRAN x10^3 (test 0.04 10*3/uL 0.00-0.06 code = 3550835230) LYMPH x10^3 (test code 3.06 10*3/uL 1.09-3.23 = 731-0) MONO x10^3 (test code 0.73 10*3/uL 0.36-1.02 = 742-7) EOS x10^3 (test code = 0.39 10*3/uL 0.06-0.53 711-2) BASO x10^3 (test code 0.05 10*3/uL 0.01-0.09 = 704-7) Lab Interpretation Abnormal (test code = 18673-2) [facility] METABOLIC PANEL (NA, K, CL, CO2, GLUCOSE, BUN, CREATININE, CA)2022-08-29 12:26:10 Test Item Value Reference Range Interpretation Comments NA (test code = 137 mmol/L 135-145 8161736501) K (test code = 3.7 mmol/L 3.5-5.0 9826635415) CL (test code = 103 mmol/L 98-108 0346891441) CO2 TOTAL (test code = 26 mmol/L 23-31 4358910600) AGAP (test code = 2-16 4512399475) BUN (test code = 16 mg/dL 7-23 4574001777) GLUCOSE (test code = 126 mg/dL 70-110 H 8808581847) CREATININE (test code = 0.80 mg/dL 0.60-1.25 8752036978) CALCIUM (test code = 8.9 mg/dL 8.6-10.6 6562209676) eGFR (test code = mL/min/1.73m2 5989380463) HERVE (test code = HERVE) Association of [...] tests). Lab Interpretation Abnormal (test code = 07151-9) [facility] WITH [id number] 10:59:58 Test Item Value Reference Range Interpretation Comments WBC (test code = See_Comment [Automated 5870-2) message] The sy stem which generated this result transmitted reference range : 4.20 - 10.70 10*3/?L. The reference range was not used to interpret this result as normal/abnormal . RBC (test code = See_Comment [Automated 532-5) message] The sy stem which generated this [...] RDW-SD (test code = 41.6 fL 38.5-51.6 89259-7) RDW-CV (test code = 12.2 % 12.1-15.4 788-0) PLT (test code = See_Comment [Automated 777-3) message] The sy stem which generated this result transmitted reference range : 150 - 328 10*3/ ?L. The reference r natasha was not used to interpret this result as normal/abnormal . MPV (test code = 8.1 fL 9.8-13.0 L 04067-7) NRBC/100 WBC (test See_Comment [Automat ed code = 3401159384) message] The system which generated this result transmitted reference range : 0.0 - 10.0 /100 WBCs. The refer ence range was not u sed to interpret th is result as normal/abnormal . NRBC x10^3 (test code See_Comment [Auto mated = 2535907399) message] The s ystem which generated this result transmitted reference range : 10*3/?L. The reference range was not used to interpret this result as normal/abnormal . GRAN MAT (NEUT) % 52.2 % (test code = 770-8) IMM GRAN % (test code 0.50 % = 8067688749) LYMPH % (test code = 35.1 % 736-9) MONO % (test code = 6.7 % 5905-5) EOS % (test code = 4.8 % 713-8) BASO % (test code = 0.7 % 706-2) GRAN MAT x10^3(ANC) 4.55 10*3/uL 1.99-6.95 (test code = 4162452176) IMM GRAN x10^3 (test 0.04 10*3/uL 0.00-0.06 code = 3140601099) LYMPH x10^3 (test code 3.06 10*3/uL 1.09-3.23 = 731-0) MONO x10^3 (test code 0.58 10*3/uL 0.36-1.02 = 742-7) EOS x10^3 (test code = 0.42 10*3/uL 0.06-0.53 711-2) BASO x10^3 (test code 0.06 10*3/uL 0.01-0.09 = 704-7) Lab Interpretation Abnormal (test code = 79800-3) [facility] CULTURE [id number] 22:02:01 Test Item Value Reference Range Interpretation Comments Blood Culture-Aerobic No organisms No growth Previo us (test code = 66151-2) isolated prelim inary verified result was Culture In Progress on 08/19/2022 at 1901 CSTPreviou s preliminary verified result was No growth a t 24 hours on 08/20/2022 at 1601 CSTPreviou s preliminary verified result was No growth a t 48 hours on 08/21/2022 at 1601 CSTPreviou s preliminary verified result was No growth a t 72 hours on 08/22/2022 at 1601 SIDE STAPLER Blood No organisms No growth Previous Culture-Anaerobic isolated preliminar y (test code = 97232-6) verifi ed result was Culture In Progress on 08/19/2022 at 1901 CSTPreviou s preliminary verified result was No growth a t 24 hours on 08/20/2022 at 1601 CSTPreviou s preliminary verified result was No growth a t 48 hours on 08/21/2022 at 1601 CSTPreviou s preliminary verified result was No growth a t 72 hours on 08/22/2022 at 1601 SIDE STAPLER Lab Interpretation Normal (test code = 11647-6) [facility] CULTURE [id number] 22:02:01 Test Item Value Reference Range Interpretation Comments Blood Culture-Aerobic No organisms No growth Previo us (test code = 12379-5) isolated prelim inary verified result was Culture In Progress on 08/19/2022 at 1901 CSTPreviou s preliminary verified result was No growth a t 24 hours on 08/20/2022 at 1601 CSTPreviou s preliminary verified result was No growth a t 48 hours on 08/21/2022 at 1601 CSTPreviou s preliminary verified result was No growth a t 72 hours on 08/22/2022 at 1601 SIDE STAPLER Blood No organisms No growth Previous Culture-Anaerobic isolated preliminar y (test code = 29576-1) verifi ed result was Culture In Progress on 08/19/2022 at 1901 CSTPreviou s preliminary verified result was No growth a t 24 hours on 08/20/2022 at 1601 CSTPreviou s preliminary verified result was No growth a t 48 hours on 08/21/2022 at 1601 CSTPreviou s preliminary verified result was No growth a t 72 hours on 08/22/2022 at 1601 SIDE STAPLER Lab Interpretation Normal (test code = 25905-2) [facility] METABOLIC PANEL (NA, K, CL, CO2, GLUCOSE, BUN, CREATININE, CA)2022-08-21 10:38:11 Test Item Value Reference Range Interpretation Comments NA (test code = 137 mmol/L 135-145 5076384606) K (test code = 4.1 mmol/L 3.5-5.0 4602262067) CL (test code = 103 mmol/L 98-108 4900755219) CO2 TOTAL (test code = 29 mmol/L 23-31 5737372552) AGAP (test code = 2-16 0331198718) BUN (test code = 12 mg/dL 7-23 8928376206) GLUCOSE (test code = 121 mg/dL 70-110 H 2965436696) CREATININE (test code = 0.72 mg/dL 0.60-1.25 7284027770) CALCIUM (test code = 8.1 mg/dL 8.6-10.6 L 0540582990) eGFR (test code = mL/min/1.73m2 7346823340) HERVE (test code = HERVE) Association of [...] tests). Lab Interpretation Abnormal (test code = 85643-7) [facility] WITH [id number] 10:18:13 Test Item Value Reference Range Interpretation Comments WBC (test code = See_Comment [Automated 2535-2) message] The sy stem which generated this result transmitted reference range : 4.20 - 10.70 10*3/?L. The reference range was not used to interpret this result as normal/abnormal . RBC (test code = See_Comment L [Automated 709-8) message] The sy stem which generated this [...] RDW-SD (test code = 44.1 fL 38.5-51.6 04437-4) RDW-CV (test code = 12.4 % 12.1-15.4 788-0) PLT (test code = See_Comment [Automated 777-3) message] The sy stem which generated this result transmitted reference range : 150 - 328 10*3/ ?L. The reference r natasha was not used to interpret this result as normal/abnormal . MPV (test code = 8.4 fL 9.8-13.0 L 34647-7) NRBC/100 WBC (test See_Comment [Automat ed code = 0218850271) message] The system which generated this result transmitted reference range : 0.0 - 10.0 /100 WBCs. The refer ence range was not u sed to interpret th is result as normal/abnormal . NRBC x10^3 (test code See_Comment [Auto mated = 7846501388) message] The s ystem which generated this result transmitted reference range : 10*3/?L. The reference range was not used to interpret this result as normal/abnormal . GRAN MAT (NEUT) % 60.0 % (test code = 770-8) IMM GRAN % (test code 0.30 % = 0457762451) LYMPH % (test code = 27.8 % 736-9) MONO % (test code = 7.6 % 5905-5) EOS % (test code = 3.9 % 713-8) BASO % (test code = 0.4 % 706-2) GRAN MAT x10^3(ANC) 5.41 10*3/uL 1.99-6.95 (test code = 5331690108) IMM GRAN x10^3 (test 0.03 10*3/uL 0.00-0.06 code = 6852412848) LYMPH x10^3 (test code 2.51 10*3/uL 1.09-3.23 = 731-0) MONO x10^3 (test code 0.69 10*3/uL 0.36-1.02 = 742-7) EOS x10^3 (test code = 0.35 10*3/uL 0.06-0.53 711-2) BASO x10^3 (test code 0.04 10*3/uL 0.01-0.09 = 704-7) Lab Interpretation Abnormal (test code = 46210-2) [facility] with [id number] 10:57:19 Test Item Value Reference Range Interpretation [...] RDW-SD (test code = 43.2 fL 38.5-51.6 07055-4) RDW-CV (test code = 12.5 % 12.1-15.4 788-0) PLT (test code = See_Comment [Automated 777-3) message] The sy stem which generated this result transmitted reference range : 150 - 328 10*3/ ?L. The reference r natasha was not used to interpret this result as normal/abnormal . MPV (test code = 8.6 fL 9.8-13.0 L 18778-5) NRBC/100 WBC (test See_Comment [Automat ed code = 8836155122) message] The system which generated this result transmitted reference range : 0.0 - 10.0 /100 WBCs. The refer ence range was not u sed to interpret th is result as normal/abnormal . NRBC x10^3 (test code See_Comment [Auto mated = 4890412418) message] The s ystem which generated this result transmitted reference range : 10*3/?L. The reference range was not used to interpret this result as normal/abnormal . GRAN MAT (NEUT) % 69.3 % (test code = 770-8) IMM GRAN % (test code 0.40 % = 0382681218) LYMPH % (test code = 20.5 % 736-9) MONO % (test code = 6.6 % 5905-5) EOS % (test code = 2.8 % 713-8) BASO % (test code = 0.4 % 706-2) GRAN MAT x10^3(ANC) 7.74 10*3/uL 1.99-6.95 H (test code = 4627547241) IMM GRAN x10^3 (test 0.04 10*3/uL 0.00-0.06 code = 7300557222) LYMPH x10^3 (test code 2.28 10*3/uL 1.09-3.23 = 731-0) MONO x10^3 (test code 0.73 10*3/uL 0.36-1.02 = 742-7) EOS x10^3 (test code = 0.31 10*3/uL 0.06-0.53 711-2) BASO x10^3 (test code 0.04 10*3/uL 0.01-0.09 = 704-7) Lab Interpretation Abnormal (test code = 74265-9) [facility] Metabolic Panel (NA, K, CL, CO2, GLUCOSE, BUN, CREATININE, CA)2022-08-20 10:44:38 Test Item Value Reference Range Interpretation Comments NA (test code = 136 mmol/L 135-145 4170983655) K (test code = 3.9 mmol/L 3.5-5.0 9523822512) CL (test code = 105 mmol/L 98-108 2818744035) CO2 TOTAL (test code = 27 mmol/L 23-31 6153009987) AGAP (test code = 2-16 6356739086) BUN (test code = 10 mg/dL 7-23 8279817265) GLUCOSE (test code = 107 mg/dL 70-110 9786035890) CREATININE (test code = 0.80 mg/dL 0.60-1.25 2980185292) CALCIUM (test code = 8.2 mg/dL 8.6-10.6 L 6746431871) eGFR (test code = mL/min/1.73m2 2884528718) HERVE (test code = HERVE) Association of [...] tests). Lab Interpretation Abnormal (test code = 50898-3) [id number]2022-08-19 21:58:25 Test Item Value Reference Range Interpretation Comments NA (test code = 136 mmol/L 135-145 8423894102) K (test code = 3.8 mmol/L 3.5-5.0 3387764633) CL (test code = 102 mmol/L 98-108 0463169838) CO2 TOTAL (test code = 26 mmol/L 23-31 7859767900) AGAP (test code = 2-16 3567801630) BUN (test code = 13 mg/dL 7-23 8893911422) GLUCOSE (test code = 136 mg/dL 70-110 H 0519912463) CREATININE (test code = 0.68 mg/dL 0.60-1.25 2048279384) TOTAL BILI (test code = 0.8 mg/dL 0.1-1.1 4016966188) CALCIUM (test code = 8.9 mg/dL 8.6-10.6 2590072288) T PROTEIN (test code = 7.1 g/dL 6.3-8.2 7587946323) ALBUMIN (test code = 4.1 g/dL 3.5-5.0 2836451800) ALK PHOS (test code = 73 U/L 34-122 3222661709) ALTv (test code = 38 U/L 5-50 1741-6) AST(SGOT) (test code = 40 U/L 13-40 0207140668) eGFR (test code = mL/min/1.73m2 8166426065) HERVE (test code = HERVE) Association of [...] tests). Lab Interpretation Abnormal (test code = 17521-6) [facility] WITH [id number] 21:32:42 Test Item Value Reference Range Interpretation Comments WBC (test code = See_Comment H [Automated 6690-2) message] The system which generated this result transmit sharri reference range : 4.20 - 10.70 10*3/?L. The reference range was not used to interpret this result as normal/abnormal . RBC (test code = See_Comment [Automated 789-8) message] The system which generated this result [...] RDW-SD (test code = 41.6 fL 38.5-51.6 18186-2) RDW-CV (test code = 12.3 % 12.1-15.4 788-0) PLT (test code = See_Comment [Automated 777-3) message] The system which generated this result transmit sharri reference range : 150 - 328 10*3/ ?L. The reference range was not u sed to interpret th is result as normal/abnormal . MPV (test code = 8.1 fL 9.8-13.0 L 16156-2) NRBC/100 WBC (test See_Comment [Automat ed code = 6693044308) message] The system which generated this result transmit sharri reference range : 0.0 - 10.0 /100 WBCs. The reference range was not used to interpret this result as normal/abnormal . NRBC x10^3 (test code See_Comment [Auto mated = 2022907781) message] The system which generated this result transmit sharri reference range : 10*3/?L. The reference range was not used to interpret this result as normal/abnormal . GRAN MAT (NEUT) % 78.9 % (test code = 770-8) IMM GRAN % (test code 0.50 % = 4849006475) LYMPH % (test code = 13.6 % 736-9) MONO % (test code = 5.2 % 5905-5) EOS % (test code = 1.5 % 713-8) BASO % (test code = 0.3 % 706-2) GRAN MAT x10^3(ANC) 11.10 10*3/uL 1.99-6.95 H (test code = 2339705698) IMM GRAN x10^3 (test 0.07 10*3/uL 0.00-0.06 H code = 5043327305) LYMPH x10^3 (test code 1.92 10*3/uL 1.09-3.23 = 731-0) MONO x10^3 (test code 0.73 10*3/uL 0.36-1.02 = 742-7) EOS x10^3 (test code = 0.21 10*3/uL 0.06-0.53 711-2) BASO x10^3 (test code 0.04 10*3/uL 0.01-0.09 = 704-7) Lab Interpretation Abnormal (test code = 38278-0) [facility] [id number] 21:29:41 Test Item Value Reference Range Interpretation Comments LACTIC ACID (test code = 2.21 mmol/L 0.50-2.20 H 5773184082) Lab Interpretation (test code = Abnormal 47325-9) [facility] (NA, K, CL, CO2, GLUCOSE, BUN, CREATININE, CA)2022-08-12 00:53:51 Test Item Value Reference Range Interpretation Comments NA (test code = 139 mmol/L 135-145 7704819091) K (test code = 3.7 mmol/L 3.5-5.0 8325065046) CL (test code = 103 mmol/L 98-108 0553718285) CO2 TOTAL (test code = 27 mmol/L 23-31 2164783374) AGAP (test code = 2-16 2439686044) BUN (test code = 11 mg/dL 7-23 9952689636) GLUCOSE (test code = 125 mg/dL 70-110 H 8320798865) CREATININE (test code = 0.79 mg/dL 0.60-1.25 0297333991) CALCIUM (test code = 9.3 mg/dL 8.6-10.6 2132035842) eGFR (test code = mL/min/1.73m2 2709895478) HERVE (test code = HERVE) Association of [...] tests). Lab Interpretation Abnormal (test code = 41681-8) [facility] WITH [id number] 00:31:12 Test Item Value Reference Range Interpretation Comments WBC (test code = See_Comment [Automated 0590-2) message] The sy stem which generated this [...] RDW-SD (test code = 41.1 fL 38.5-51.6 35676-6) RDW-CV (test code = 11.9 % 12.1-15.4 L 788-0) PLT (test code = See_Comment [Automated 777-3) message] The sy stem which generated this result transmitted reference range : 150 - 328 10*3/ ?L. The reference r natasha was not used to interpret this result as normal/abnormal . MPV (test code = 8.1 fL 9.8-13.0 L 71612-5) NRBC/100 WBC (test See_Comment [Automat ed code = 4695655163) message] The system which generated this result transmitted reference range : 0.0 - 10.0 /100 WBCs. The refer ence range was not u sed to interpret th is result as normal/abnormal . NRBC x10^3 (test code See_Comment [Auto mated = 7406279880) message] The s ystem which generated this result transmitted reference range : 10*3/?L. The reference range was not used to interpret this result as normal/abnormal . GRAN MAT (NEUT) % 56.7 % (test code = 770-8) IMM GRAN % (test code 0.30 % = 3776489515) LYMPH % (test code = 33.0 % 736-9) MONO % (test code = 6.3 % 5905-5) EOS % (test code = 3.1 % 713-8) BASO % (test code = 0.6 % 706-2) GRAN MAT x10^3(ANC) 5.14 10*3/uL 1.99-6.95 (test code = 7915693363) IMM GRAN x10^3 (test 0.03 10*3/uL 0.00-0.06 code = 5404028206) LYMPH x10^3 (test code 2.99 10*3/uL 1.09-3.23 = 731-0) MONO x10^3 (test code 0.57 10*3/uL 0.36-1.02 = 742-7) EOS x10^3 (test code = 0.28 10*3/uL 0.06-0.53 711-2) BASO x10^3 (test code 0.05 10*3/uL 0.01-0.09 = 704-7) Lab Interpretation Abnormal (test code = 30479-9) [facility] - Draw within 30 minutes prior to 4TH dose.2022-08-05 12:43:10 Test Item Value Reference Range Interpretation Comments VANCO TROUGH (test code 9.2 ug/mL 10.0-20.0 L = 6628469342) HERVE (test code = HERVE) Toxic Range: ?>20 ug/mL 15-20 ug/mL is recommended for severe infection or when Vancomycin GOPAL is greater than or equal to 2. Lab Interpretation (test Abnormal code = 80700-8) [facility] - Draw within 30 minutes prior to 4TH dose.2022-08-05 12:43:10 Test Item Value Reference Range Interpretation Comments VANCO TROUGH (test code 9.2 ug/mL 10.0-20.0 L = 8937399591) HERVE (test code = HERVE) Toxic Range: ?>20 ug/mL 15-20 ug/mL is recommended for severe infection or when Vancomycin GOPAL is greater than or equal to 2. Lab Interpretation (test Abnormal code = 29763-4) [facility] METABOLIC PANEL (NA, K, CL, CO2, GLUCOSE, BUN, CREATININE, CA)2022-08-05 12:37:51 Test Item Value Reference Range Interpretation Comments NA (test code = 139 mmol/L 135-145 5000872240) K (test code = 4.2 mmol/L 3.5-5.0 3252513267) CL (test code = 104 mmol/L 98-108 7078052328) CO2 TOTAL (test code 29 mmol/L 23-31 = 2807234242) AGAP (test code = 2-16 6141211255) BUN (test code = 15 mg/dL 7-23 6818092602) GLUCOSE (test code = 92 mg/dL 70-110 1206456595) CREATININE (test code 0.73 mg/dL 0.60-1.25 = 7124779605) CALCIUM (test code = 8.6 mg/dL 8.6-10.6 2023179972) eGFR (test code = mL/min/1.73m2 2338054631) HERVE (test code = HERVE) Association of [...] or urine or abnormalities in imaging tests). [facility] METABOLIC PANEL (NA, K, CL, CO2, GLUCOSE, BUN, CREATININE, CA)2022-08-05 12:37:51 Test Item Value Reference Range Interpretation Comments NA (test code = 139 mmol/L 135-145 4170954182) K (test code = 4.2 mmol/L 3.5-5.0 9849350740) CL (test code = 104 mmol/L 98-108 3340130722) CO2 TOTAL (test code 29 mmol/L 23-31 = 2318873604) AGAP (test code = 2-16 4084900364) BUN (test code = 15 mg/dL 7-23 9170338639) GLUCOSE (test code = 92 mg/dL 70-110 1196760193) CREATININE (test code 0.73 mg/dL 0.60-1.25 = 3655446356) CALCIUM (test code = 8.6 mg/dL 8.6-10.6 1253481816) eGFR (test code = mL/min/1.73m2 6665561750) HERVE (test code = HERVE) Association of [...] or urine or abnormalities in imaging tests). [facility] WITH [id number] 11:18:06 Test Item Value Reference Range Interpretation [...] RDW-SD (test code = 41.6 fL 38.5-51.6 39733-6) RDW-CV (test code = 11.9 % 12.1-15.4 L 788-0) PLT (test code = See_Comment [Automated 777-3) message] The sy stem which generated this result transmitted reference range : 150 - 328 10*3/ ?L. The reference r natasha was not used to interpret this result as normal/abnormal . MPV (test code = 8.2 fL 9.8-13.0 L 64319-1) NRBC/100 WBC (test See_Comment [Automat ed code = 9681925555) message] The system which generated this result transmitted reference range : 0.0 - 10.0 /100 WBCs. The refer ence range was not u sed to interpret th is result as normal/abnormal . NRBC x10^3 (test code See_Comment [Auto mated = 9173502293) message] The s ystem which generated this result transmitted reference range : 10*3/?L. The reference range was not used to interpret this result as normal/abnormal . GRAN MAT (NEUT) % 55.2 % (test code = 770-8) IMM GRAN % (test code 0.30 % = 5386443365) LYMPH % (test code = 33.2 % 736-9) MONO % (test code = 6.9 % 5905-5) EOS % (test code = 3.8 % 713-8) BASO % (test code = 0.6 % 706-2) GRAN MAT x10^3(ANC) 4.38 10*3/uL 1.99-6.95 (test code = 1107985400) IMM GRAN x10^3 (test 0.00-0.06 code = 7915110957) LYMPH x10^3 (test code 2.64 10*3/uL 1.09-3.23 = 731-0) MONO x10^3 (test code 0.55 10*3/uL 0.36-1.02 = 742-7) EOS x10^3 (test code = 0.30 10*3/uL 0.06-0.53 711-2) BASO x10^3 (test code 0.05 10*3/uL 0.01-0.09 = 704-7) Lab Interpretation Abnormal (test code = 73552-3) [facility] WITH [id number] 11:18:06 Test Item Value Reference Range Interpretation Comments WBC (test code = See_Comment [Automated 4490-2) message] The sy stem which generated this result transmitted reference range : 4.20 - 10.70 10*3/?L. The reference range was not used to interpret this result as normal/abnormal . RBC (test code = See_Comment [Automated 969-8) message] The sy stem which generated this [...] RDW-SD (test code = 41.6 fL 38.5-51.6 62539-9) RDW-CV (test code = 11.9 % 12.1-15.4 L 788-0) PLT (test code = See_Comment [Automated 777-3) message] The sy stem which generated this result transmitted reference range : 150 - 328 10*3/ ?L. The reference r natasha was not used to interpret this result as normal/abnormal . MPV (test code = 8.2 fL 9.8-13.0 L 89378-3) NRBC/100 WBC (test See_Comment [Automat ed code = 1793132985) message] The system which generated this result transmitted reference range : 0.0 - 10.0 /100 WBCs. The refer ence range was not u sed to interpret th is result as normal/abnormal . NRBC x10^3 (test code See_Comment [Auto mated = 4944937163) message] The s ystem which generated this result transmitted reference range : 10*3/?L. The reference range was not used to interpret this result as normal/abnormal . GRAN MAT (NEUT) % 55.2 % (test code = 770-8) IMM GRAN % (test code 0.30 % = 0086248706) LYMPH % (test code = 33.2 % 736-9) MONO % (test code = 6.9 % 5905-5) EOS % (test code = 3.8 % 713-8) BASO % (test code = 0.6 % 706-2) GRAN MAT x10^3(ANC) 4.38 10*3/uL 1.99-6.95 (test code = 7006751548) IMM GRAN x10^3 (test 0.00-0.06 code = 4954964047) LYMPH x10^3 (test code 2.64 10*3/uL 1.09-3.23 = 731-0) MONO x10^3 (test code 0.55 10*3/uL 0.36-1.02 = 742-7) EOS x10^3 (test code = 0.30 10*3/uL 0.06-0.53 711-2) BASO x10^3 (test code 0.05 10*3/uL 0.01-0.09 = 704-7) Lab Interpretation Abnormal (test code = 03806-4) [facility] 17:34:35 Test Item Value Reference Range Interpretation Comments Height (test code = in 0979216014) Weight (test code = lbs 8277019964) Systolic BP (test code = mmHg 0061426514) Diastolic BP (test code mmHg = 3280265315) Heart Rate (test code = bpm 0234396718) BSA (test code = 1.74 m2 3061459103) LVOT diameter (test code 2.00 cm = 2691752483) LVOT area (test code = 3.20 cm2 7225818533) LVIDD (test code = 3.90 cm 0737233465) Left Ventricular End 66.7 mL Diastolic Volume by Teichholz Method (test code = 8828963) IVS (test code = 1.12 cm 2889496227) Interventricular Septum 1.12 cm Diastolic Thickness by 2D (test code = 1698973) LVPWD (test code = 1.12 cm 7364534669) PW (test code = 1.12 cm 0.6-1.8 3128069218) EF(Teich) (test code = 58.90 % 7215460322) LVIDS (test code = 2.70 cm 9652246504) Left Ventricular End 27.4 mL Systolic Volume by Teichholz Method (test code = 4049546) FS (test code = 31 % 8438094483) EF - 2D (test code = 58.90 % 30505080) LA size (test code = 3.1 cm 8151106515) TR Peak Warren (test code = 254.2 cm/s 8110682896) Triscuspid Valve mmHg Regurgitation Peak Gradient (test code = 8939993139) LAV(MOD-sp4) (test code 46.20 mL = 6540661321) MV stenosis pressure 1/2 70.1 ms time (test code = 6735847636) MV Peak E Warren (test code 56.2 cm/s = 4700884702) E wave decelartion time 0.23 s (test code = 3717877390) MV Peak A Warren (test code 54.7 cm/s = 1990017463) E/A ratio (test code = ratio 4809017000) MV Prop V (test code = 37.50 cm/s 4436001432) MV E/e' septal (test 14.2 cm/s code = 6223918358) Tapse (test code = 2.37 cm 0289784240) LVOT stroke volume (test 62.40 cm3 code = 2450663333) LVOT peak warren (test code 92.9 cm/s = 4173521328) LVOT mn grad (test code mmHg = 7789500976) AV LVOT peak gradient mmHg (test code = 6879637992) LVOT peak VTI (test code 19.8 cm = 9626195575) LV V1 mean (test code = 61.20 cm/s 3858298712) Aortic valve mean 74.9 cm/s velocity (test code = 4714090473) Ao peak warren (test code = 103.8 cm/s 3470258996) Ao VTI (test code = 21.1 cm 8711747162) AV area by cont VTI 3.0 cm2 (test code = 5806686685) AV area peak warren (test 2.8 cm2 code = 8784730720) Ao max PG (test code = 4.30 mm[Hg] 3408672283) AV peak gradient (test mmHg code = 3342049193) AV valve area (test code 3.00 cm2 = 0059856580) AV mean gradient (test mmHg code = 2180986497) Radiology Study observation (narrative) (test code = 91004-0) HERVE (test code = HERVE) ?Left?Ventricle: Left [...] 2D, color flow Doppler and spectral Doppler. [facility] 17:34:35 Test Item Value Reference Range Interpretation Comments Height (test code = in 1736170559) Weight (test code = lbs 2234028894) Systolic BP (test code = mmHg 9042973304) Diastolic BP (test code mmHg = 5523769490) Heart Rate (test code = bpm 2647500558) BSA (test code = 1.74 m2 3829826221) LVOT diameter (test code 2.00 cm = 2776675513) LVOT area (test code = 3.20 cm2 0389576374) LVIDD (test code = 3.90 cm 7851439467) Left Ventricular End 66.7 mL Diastolic Volume by Teichholz Method (test code = 6050051) IVS (test code = 1.12 cm 5907227429) Interventricular Septum 1.12 cm Diastolic Thickness by 2D (test code = 2987420) LVPWD (test code = 1.12 cm 7036427266) PW (test code = 1.12 cm 0.6-1.7 8817403133) EF(Teich) (test code = 58.90 % 9259189770) LVIDS (test code = 2.70 cm 9109856685) Left Ventricular End 27.4 mL Systolic Volume by Teichholz Method (test code = 6543320) FS (test code = 31 % 1925791760) EF - 2D (test code = 58.90 % 62957988) LA size (test code = 3.1 cm 3186632789) TR Peak Warren (test code = 254.2 cm/s 0911496790) Triscuspid Valve mmHg Regurgitation Peak Gradient (test code = 0905958753) LAV(MOD-sp4) (test code 46.20 mL = 2851717715) MV stenosis pressure 1/2 70.1 ms time (test code = 9763324247) MV Peak E Warren (test code 56.2 cm/s = 3138014338) E wave decelartion time 0.23 s (test code = 2002516003) MV Peak A Warren (test code 54.7 cm/s = 0116800062) E/A ratio (test code = ratio 8890713870) MV Prop V (test code = 37.50 cm/s 9638546497) MV E/e' septal (test 14.2 cm/s code = 2407660443) Tapse (test code = 2.37 cm 5765571303) LVOT stroke volume (test 62.40 cm3 code = 8072050358) LVOT peak warren (test code 92.9 cm/s = 4218885885) LVOT mn grad (test code mmHg = 1115671736) AV LVOT peak gradient mmHg (test code = 7452614931) LVOT peak VTI (test code 19.8 cm = 7832060527) LV V1 mean (test code = 61.20 cm/s 0605329976) Aortic valve mean 74.9 cm/s velocity (test code = 4469060740) Ao peak warren (test code = 103.8 cm/s 6495470535) Ao VTI (test code = 21.1 cm 5142880850) AV area by cont VTI 3.0 cm2 (test code = 2139531477) AV area peak warren (test 2.8 cm2 code = 2686338307) Ao max PG (test code = 4.30 mm[Hg] 3999163534) AV peak gradient (test mmHg code = 4390095641) AV valve area (test code 3.00 cm2 = 3841496164) AV mean gradient (test mmHg code = 9637621481) Radiology Study observation (narrative) (test code = 54553-2) HERVE (test code = HERVE) ?Left?Ventricle: Left [...] 2D, color flow Doppler and spectral Doppler. [facility] [id number] 10:52:18 Test Item Value Reference Range Interpretation Comments ESR (test code = 27079-2) See_Comment [ Automated message] The system [employer] generated this result transmitted ref erence range: 0 - 10 m m/HR. The reference r natasha was not used to interpret this result as normal/abnor mal. Lab Interpretation (test Normal code = 27823-4) [facility] [id number] 10:52:18 Test Item Value Reference Range Interpretation Comments ESR (test code = 48630-4) See_Comment [ Automated message] The system [employer] generated this result transmitted ref erence range: 0 - 10 m m/HR. The reference r natasha was not used to interpret this result as normal/abnor mal. Lab Interpretation (test Normal code = 04842-7) [facility]. METABOLIC PANEL ([id number])2022-08-03 10:39:37 Test Item Value Reference Range Interpretation Comments NA (test code = 136 mmol/L 135-145 6862001793) K (test code = 4.0 mmol/L 3.5-5.0 2540719300) CL (test code = 100 mmol/L 98-108 6756050295) CO2 TOTAL (test code = 28 mmol/L 23-31 0379184789) AGAP (test code = 2-16 6335525012) BUN (test code = 12 mg/dL 7-23 4416048517) GLUCOSE (test code = 181 mg/dL 70-110 H 2162787333) CREATININE (test code = 0.82 mg/dL 0.60-1.25 7614854052) TOTAL BILI (test code = 0.7 mg/dL 0.1-1.9 4303708970) CALCIUM (test code = 8.7 mg/dL 8.6-10.6 0389636623) T PROTEIN (test code = 7.1 g/dL 6.3-8.2 6619114074) ALBUMIN (test code = 4.1 g/dL 3.5-5.0 3896169344) ALK PHOS (test code = 71 U/L 34-122 5974713172) ALTv (test code = 35 U/L 5-50 1742-6) AST(SGOT) (test code = 46 U/L 13-40 H 2731842313) eGFR (test code = mL/min/1.73m2 9843885941) HERVE (test code = HERVE) Association of [...] tests). Lab Interpretation Abnormal (test code = 83311-5) [facility]. METABOLIC PANEL ([id number])2022-08-03 10:39:37 Test Item Value Reference Range Interpretation Comments NA (test code = 136 mmol/L 135-145 9665974737) K (test code = 4.0 mmol/L 3.5-5.0 0151990994) CL (test code = 100 mmol/L 98-108 2588226967) CO2 TOTAL (test code = 28 mmol/L 23-31 3094426890) AGAP (test code = 2-16 6113493433) BUN (test code = 12 mg/dL 7-23 3740509562) GLUCOSE (test code = 181 mg/dL 70-110 H 7817089091) CREATININE (test code = 0.82 mg/dL 0.60-1.25 5760486819) TOTAL BILI (test code = 0.7 mg/dL 0.1-1.8 5861331134) CALCIUM (test code = 8.7 mg/dL 8.6-10.6 5945309109) T PROTEIN (test code = 7.1 g/dL 6.3-8.2 6297737007) ALBUMIN (test code = 4.1 g/dL 3.5-5.0 7544589753) ALK PHOS (test code = 71 U/L 34-122 1684157147) ALTv (test code = 35 U/L 5-50 1742-6) AST(SGOT) (test code = 46 U/L 13-40 H 9115362563) eGFR (test code = mL/min/1.73m2 4228608837) HERVE (test code = HERVE) Association of [...] tests). Lab Interpretation Abnormal (test code = 64848-7) [facility] WITH [id number] 10:26:39 Test Item Value Reference Range Interpretation Comments WBC (test code = See_Comment H [Automated 3673-2) message] The sy stem which generated this result transmitted reference range : 4.20 - 10.70 10*3/?L. The reference range was not used to interpret this result as normal/abnormal . RBC (test code = See_Comment [Automated 245-7) message] The sy stem which generated this [...] RDW-SD (test code = 41.1 fL 38.5-51.6 10082-4) RDW-CV (test code = 11.9 % 12.1-15.4 L 788-0) PLT (test code = See_Comment [Automated 777-3) message] The sy stem which generated this result transmitted reference range : 150 - 328 10*3/ ?L. The reference r natasha was not used to interpret this result as normal/abnormal . MPV (test code = 8.0 fL 9.8-13.0 L 46746-2) NRBC/100 WBC (test See_Comment [Automat ed code = [id number]) message] The system which generated this result transmitted reference range : 0.0 - 10.0 /100 WBCs. The refer ence range was not u sed to interpret th is result as normal/abnormal . NRBC x10^3 (test code See_Comment [Auto mated = [id number]) message] The s ystem which generated this result transmitted reference range : 10*3/?L. The reference range was not used to interpret this result as normal/abnormal . GRAN MAT (NEUT) % 66.5 % (test code = 770-8) IMM GRAN % (test code 0.40 % = 6842475583) LYMPH % (test code = 24.1 % 736-9) MONO % (test code = 6.1 % 5905-5) EOS % (test code = 2.5 % 713-8) BASO % (test code = 0.4 % 706-2) GRAN MAT x10^3(ANC) 7.62 10*3/uL 1.99-6.95 H (test code = 5635625499) IMM GRAN x10^3 (test 0.05 10*3/uL 0.00-0.06 code = 1633064593) LYMPH x10^3 (test code 2.76 10*3/uL 1.09-3.23 = 731-0) MONO x10^3 (test code 0.70 10*3/uL 0.36-1.02 = 742-7) EOS x10^3 (test code = 0.29 10*3/uL 0.06-0.53 711-2) BASO x10^3 (test code 0.05 10*3/uL 0.01-0.09 = 704-7) Lab Interpretation Abnormal (test code = 94332-3) [facility] WITH [id number] 10:26:39 Test Item Value Reference Range Interpretation Comments WBC (test code = See_Comment H [Automated 8390-2) message] The sy stem which generated this [...] RDW-SD (test code = 41.1 fL 38.5-51.6 45239-1) RDW-CV (test code = 11.9 % 12.1-15.4 L 788-0) PLT (test code = See_Comment [Automated 777-3) message] The sy stem which generated this result transmitted reference range : 150 - 328 10*3/ ?L. The reference r natasha was not used to interpret this result as normal/abnormal . MPV (test code = 8.0 fL 9.8-13.0 L 61470-5) NRBC/100 WBC (test See_Comment [Automat ed code = 1492717950) message] The system which generated this result transmitted reference range : 0.0 - 10.0 /100 WBCs. The refer ence range was not u sed to interpret th is result as normal/abnormal . NRBC x10^3 (test code See_Comment [Auto mated = 5746632382) message] The s ystem which generated this result transmitted reference range : 10*3/?L. The reference range was not used to interpret this result as normal/abnormal . GRAN MAT (NEUT) % 66.5 % (test code = 770-8) IMM GRAN % (test code 0.40 % = 6376863763) LYMPH % (test code = 24.1 % 736-9) MONO % (test code = 6.1 % 5905-5) EOS % (test code = 2.5 % 713-8) BASO % (test code = 0.4 % 706-2) GRAN MAT x10^3(ANC) 7.62 10*3/uL 1.99-6.95 H (test code = 6954473465) IMM GRAN x10^3 (test 0.05 10*3/uL 0.00-0.06 code = 7921675687) LYMPH x10^3 (test code 2.76 10*3/uL 1.09-3.23 = 731-0) MONO x10^3 (test code 0.70 10*3/uL 0.36-1.02 = 742-7) EOS x10^3 (test code = 0.29 10*3/uL 0.06-0.53 711-2) BASO x10^3 (test code 0.05 10*3/uL 0.01-0.09 = 704-7) Lab Interpretation Abnormal (test code = 63691-7) [facility]. METABOLIC PANEL (13305)2022-07-13 20:47:58 Test Item Value Reference Range Interpretation Comments NA (test code = 140 mmol/L 135-145 2546565032) K (test code = 3.4 mmol/L 3.5-5 L 0198333886) CL (test code = 103 mmol/L 98-108 2353565025) CO2 TOTAL (test code = 31 mmol/L 23-31 5517657203) AGAP (test code = 2-16 7219027067) BUN (test code = 12 mg/dL 7-23 0229065020) GLUCOSE (test code = 118 mg/dL 70-110 H 0137539404) CREATININE (test code = 0.82 mg/dL 0.6-1.25 1418235038) TOTAL BILI (test code = 0.4 mg/dL 0.1-1.4 0508896181) CALCIUM (test code = 8.8 mg/dL 8.6-10.6 2851484874) T PROTEIN (test code = 7.2 g/dL 6.3-8.2 3819010254) ALBUMIN (test code = 4.2 g/dL 3.5-5 3377110995) ALK PHOS (test code = 82 U/L 34-122 4595412318) ALTv (test code = 53 U/L 5-50 H 1742-6) AST(SGOT) (test code = 71 U/L 13-40 H 0201597973) eGFR (test code = mL/min/1.73m2 6419186844) HERVE (test code = HERVE) Association of [...] tests). Lab Interpretation Abnormal (test code = 99666-7) [facility] WITH [id number] 20:38:38 Test Item Value Reference Range Interpretation Comments WBC (test code = See_Comment [Automated 2990-2) message] The sy stem which generated this [...] RDW-SD (test code = 41.0 fL 38.5-51.6 72619-0) RDW-CV (test code = 11.9 % 12.1-15.4 L 788-0) PLT (test code = See_Comment [Automated 777-3) message] The sy stem which generated this result transmitted reference range : 150 - 328 10*3/ ?L. The reference r natasha was not used to interpret this result as normal/abnormal . MPV (test code = 8.5 fL 9.8-13 L 28189-2) NRBC/100 WBC (test See_Comment [Automat ed code = 1563377827) message] The system which generated this result transmitted reference range : 0.0 - 10.0 /100 WBCs. The refer ence range was not u sed to interpret th is result as normal/abnormal . NRBC x10^3 (test code See_Comment [Auto mated = 5587557805) message] The s ysteAteo which generated this result transmitted reference range : 10*3/?L. The reference range was not used to interpret this result as normal/abnormal . GRAN MAT (NEUT) % 57.5 % (test code = 770-8) IMM GRAN % (test code 0.40 % = 2396428702) LYMPH % (test code = 31.6 % 736-9) MONO % (test code = 6.4 % 5905-5) EOS % (test code = 3.5 % 713-8) BASO % (test code = 0.6 % 706-2) GRAN MAT x10^3(ANC) 5.23 10*3/uL 1.99-6.95 (test code = 0834601860) IMM GRAN x10^3 (test 0.04 10*3/uL 0-0.06 code = 5535436941) LYMPH x10^3 (test code 2.87 10*3/uL 1.09-3.23 = 731-0) MONO x10^3 (test code 0.58 10*3/uL 0.36-1.02 = 742-7) EOS x10^3 (test code = 0.32 10*3/uL 0.06-0.53 711-2) BASO x10^3 (test code 0.05 10*3/uL 0.01-0.09 = 704-7) Lab Interpretation Abnormal (test code = 98355-2) [facility] [id number] 20:00:10 Test Item Value Reference Interpretation Comments Range TROPONIN I (test 0.002 ng/mL See_Comment [Automated code = 2955543230) message] The system which generated this result [...] biotin. Lab Interpretation Normal (test code = 30663-1) [facility]. METABOLIC PANEL (39900)2022-05-27 19:49:33 Test Item Value Reference Range Interpretation Comments NA (test code = 139 mmol/L 135-145 6465334681) K (test code = 3.4 mmol/L 3.5-5 L 6545105613) CL (test code = 104 mmol/L 98-108 3819338651) CO2 TOTAL (test code = 28 mmol/L 23-31 7527600313) AGAP (test code = 2-16 7369495298) BUN (test code = 19 mg/dL 7-23 9105151048) GLUCOSE (test code = 101 mg/dL 70-110 4051354681) CREATININE (test code = 1.02 mg/dL 0.6-1.25 5712376485) TOTAL BILI (test code = 1.3 mg/dL 0.1-1.1 H 3279635958) CALCIUM (test code = 9.0 mg/dL 8.6-10.6 3927655554) T PROTEIN (test code = 7.0 g/dL 6.3-8.2 9577785591) ALBUMIN (test code = 4.3 g/dL 3.5-5 9116045202) ALK PHOS (test code = 70 U/L 34-122 2516737204) ALTv (test code = 37 U/L 5-50 1742-6) AST(SGOT) (test code = 42 U/L 13-40 H 2720534730) eGFR (test code = mL/min/1.73m2 9102741968) HERVE (test code = HERVE) Association of [...] tests). Lab Interpretation Abnormal (test code = 40498-6) [facility] [id number] 19:48:48 Test Item Value Reference Range Interpretation Comments CK (test code = 5076253147) 159 U/L 33-194 Lab Interpretation (test code = Normal 29049-7) [facility] WITH [id number] 19:26:48 Test Item Value Reference Range Interpretation Comments WBC (test code = See_Comment [Automated 3148-2) message] The sy stem which generated this result transmitted reference range : 4.20 - 10.70 10*3/?L. The reference range was not used to interpret this result as normal/abnormal . RBC (test code = See_Comment [Automated 988-0) message] The sy stem which generated this [...] RDW-SD (test code = 42.5 fL 38.5-51.6 73596-3) RDW-CV (test code = 12.2 % 12.1-15.4 788-0) PLT (test code = See_Comment [Automated 777-3) message] The sy stem which generated this result transmitted reference range : 150 - 328 10*3/ ?L. The reference r natasha was not used to interpret this result as normal/abnormal . MPV (test code = 8.0 fL 9.8-13 L 32829-8) NRBC/100 WBC (test See_Comment [Automat ed code = 0236021598) message] The system which generated this result transmitted reference range : 0.0 - 10.0 /100 WBCs. The refer ence range was not u sed to interpret th is result as normal/abnormal . NRBC x10^3 (test code See_Comment [Auto mated = 4294187322) message] The s ystem which generated this result transmitted reference range : 10*3/?L. The reference range was not used to interpret this result as normal/abnormal . GRAN MAT (NEUT) % 54.4 % (test code = 770-8) IMM GRAN % (test code 0.30 % = 4740304514) LYMPH % (test code = 32.4 % 736-9) MONO % (test code = 9.2 % 5905-5) EOS % (test code = 3.3 % 713-8) BASO % (test code = 0.4 % 706-2) GRAN MAT x10^3(ANC) 4.06 10*3/uL 1.99-6.95 (test code = 1963047229) IMM GRAN x10^3 (test 0-0.06 code = 3210327840) LYMPH x10^3 (test code 2.42 10*3/uL 1.09-3.23 = 731-0) MONO x10^3 (test code 0.69 10*3/uL 0.36-1.02 = 742-7) EOS x10^3 (test code = 0.25 10*3/uL 0.06-0.53 711-2) BASO x10^3 (test code 0.03 10*3/uL 0.01-0.09 = 704-7) Lab Interpretation Abnormal (test code = 23382-1) [facility] [id number] 08:29:05 Test Item Value Reference Range Interpretation [...] A/G 1.4 ratio N Ratio) Comprehensive Metabolic [id number] 08:29:05 Test Item Value Reference Range Interpretation [...] [employer], http://nkdep.ni h.gov Comprehensive Metabolic [id number] 08:29:05 Test Item Value Reference Range Interpretation [...] ag e have not been validated by [facility] MDRD study and should be interpreted [...] ag e have not been validated by [facility] MDRD study and should be interpreted wit h caution. eGFR R esult Interpretation: eGFR > or = 60 is in the Normal RangeeGF R < 60 may mean kid jignesh diseaseeGFR < 1 5 may mean kidney failure Rang es recommended by the National Kid[employer] Foundation, http://nkdep.ni h.gov Complete Blood Count without [id number] 08:07:00 Test Item Value Reference Range Interpretation [...] code = IPF) 0 % N RPR [id number] 11:58:31 Test Item Value Reference Range Interpretation [...] = 09-30-2020 N Expiration Dt) Thyroid Stimulating [id number] 07:31:59 Test Item Value Reference Range Interpretation Comments TSH (test code = TSH) 1.000 mIU/mL 0.270-4.200 Lipid [id number] 07:11:41 Test Item Value Reference Range Interpretation Comments Cholesterol Total 176 mg/dL 0-200 RISK OF HE ART (test code = DISEASEPublishe d by Cholesterol Total) [employer] Maria G lyte Optimal Borderl [...] is LDL/HDL Ratio=L DL Calc/HDL Chol DRUG [id number] 13:01:00 Test Item Value Reference Range Interpretation Comments U Opiate Scr (test Negative *NA*(12/19/16 code = U Opiate Scr) 8:01 AM) [facility] [id number] 13:01:00 Test Item Value Reference Range Interpretation Comments U Cannab Scr (test Negative *NA*(12/19/16 code = U Cannab Scr) 8:01 AM) [facility] [id number] 13:01:00 Test Item Value Reference Range Interpretation Comments U Amph Scr (test code Positive *ABN*(12/19/16 = U Amph Scr) 8:01 AM) [facility] [id number] 13:01:00 Test Item Value Reference Range Interpretation Comments U Ysabel Scr (test code Negative *NA*(12/19/16 = U Ysabel Scr) 8:01 AM) [facility] [id number] 13:01:00 Test Item Value Reference Range Interpretation Comments U Benzodia Scr (test Negative *NA*(12/19/16 code = U Benzodia Scr) 8:01 AM) [facility] [id number] 13:01:00 Test Item Value Reference Range Interpretation Comments U Cocaine Scr (test Negative *NA*(12/19/16 code = U Cocaine Scr) 8:01 AM) [facility] [id number] 13:01:00 Test Item Value Reference Range Interpretation Comments UDS Note (test code = See Note (12/19/16 8:01 UDS Note) AM) [facility] [id number] 13:01:00 Test Item Value Reference Range Interpretation Comments U Phencyc Scr (test Negative *NA*(12/19/16 code = U Phencyc Scr) 8:01 AM) [facility] [id number] 13:01:00 Test Item Value Reference Range Interpretation Comments UDS Note (test code = See Note (12/19/16 8:01 UDS Note) AM) [facility] [id number] 13:01:00 Test Item Value Reference Range Interpretation Comments U Phencyc Scr (test Negative *NA*(12/19/16 code = U Phencyc Scr) 8:01 AM) [facility] [id number] 13:01:00 Test Item Value Reference Range Interpretation Comments U Opiate Scr (test Negative *NA*(12/19/16 code = U Opiate Scr) 8:01 AM) [facility] [id number] 13:01:00 Test Item Value Reference Range Interpretation Comments U Cannab Scr (test Negative *NA*(12/19/16 code = U Cannab Scr) 8:01 AM) [facility] [id number] 13:01:00 Test Item Value Reference Range Interpretation Comments U Amph Scr (test code Positive *ABN*(12/19/16 = U Amph Scr) 8:01 AM) [facility] [id number] 13:01:00 Test Item Value Reference Range Interpretation Comments U Ysabel Scr (test code Negative *NA*(12/19/16 = U Ysabel Scr) 8:01 AM) [facility] [id number] 13:01:00 Test Item Value Reference Range Interpretation Comments U Benzodia Scr (test Negative *NA*(12/19/16 code = U Benzodia Scr) 8:01 AM) [facility] [id number] 13:01:00 Test Item Value Reference Range Interpretation Comments U Cocaine Scr (test Negative *NA*(12/19/16 code = U Cocaine Scr) 8:01 AM) [facility] [id number] 13:01:00 Test Item Value Reference Range Interpretation Comments UDS Note (test code = See Note (12/19/16 8:01 UDS Note) AM) [facility] [id number] 13:01:00 Test Item Value Reference Range Interpretation Comments U Phencyc Scr (test Negative *NA*(12/19/16 code = U Phencyc Scr) 8:01 AM) [facility] [id number] 13:01:00 Test Item Value Reference Range Interpretation Comments U Opiate Scr (test Negative *NA*(12/19/16 code = U Opiate Scr) 8:01 AM) [facility] [id number] 13:01:00 Test Item Value Reference Range Interpretation Comments U Cannab Scr (test Negative *NA*(12/19/16 code = U Cannab Scr) 8:01 AM) [facility] [id number] 13:01:00 Test Item Value Reference Range Interpretation Comments U Amph Scr (test code Positive *ABN*(12/19/16 = U Amph Scr) 8:01 AM) [facility] [id number] 13:01:00 Test Item Value Reference Range Interpretation Comments U Ysabel Scr (test code Negative *NA*(12/19/16 = U Ysabel Scr) 8:01 AM) [facility] [id number] 13:01:00 Test Item Value Reference Range Interpretation Comments U Benzodia Scr (test Negative *NA*(12/19/16 code = U Benzodia Scr) 8:01 AM) [facility] [id number] 13:01:00 Test Item Value Reference Range Interpretation Comments U Cocaine Scr (test Negative *NA*(12/19/16 code = U Cocaine Scr) 8:01 AM) [facility] [id number] 13:01:00 Test Item Value Reference Range Interpretation Comments UDS Note (test code = See Note (12/19/16 8:01 UDS Note) AM) [facility] [id number] 13:01:00 Test Item Value Reference Range Interpretation Comments U Phencyc Scr (test Negative *NA*(12/19/16 code = U Phencyc Scr) 8:01 AM) [facility] [id number] 13:01:00 Test Item Value Reference Range Interpretation Comments U Opiate Scr (test Negative *NA*(12/19/16 code = U Opiate Scr) 8:01 AM) [facility] [id number] 13:01:00 Test Item Value Reference Range Interpretation Comments U Cannab Scr (test Negative *NA*(12/19/16 code = U Cannab Scr) 8:01 AM) [facility] [id number] 13:01:00 Test Item Value Reference Range Interpretation Comments U Amph Scr (test code Positive *ABN*(12/19/16 = U Amph Scr) 8:01 AM) [facility] [id number] 13:01:00 Test Item Value Reference Range Interpretation Comments U Ysabel Scr (test code Negative *NA*(12/19/16 = U Ysabel Scr) 8:01 AM) [facility] [id number] 13:01:00 Test Item Value Reference Range Interpretation Comments U Benzodia Scr (test Negative *NA*(12/19/16 code = U Benzodia Scr) 8:01 AM) [facility] [id number] 13:01:00 Test Item Value Reference Range Interpretation Comments U Cocaine Scr (test Negative *NA*(12/19/16 code = U Cocaine Scr) 8:01 AM) [facility] [id number] 13:01:00 Test Item Value Reference Range Interpretation Comments UDS Note (test code = See Note (12/19/16 8:01 UDS Note) AM) [facility] [id number] 13:01:00 Test Item Value Reference Range Interpretation Comments U Phencyc Scr (test Negative *NA*(12/19/16 code = U Phencyc Scr) 8:01 AM) [facility] [id number] 13:01:00 Test Item Value Reference Range Interpretation Comments U Opiate Scr (test Negative *NA*(12/19/16 code = U Opiate Scr) 8:01 AM) [facility] [id number] 13:01:00 Test Item Value Reference Range Interpretation Comments U Cannab Scr (test Negative *NA*(12/19/16 code = U Cannab Scr) 8:01 AM) [facility] [id number] 13:01:00 Test Item Value Reference Range Interpretation Comments U Amph Scr (test code Positive *ABN*(12/19/16 = U Amph Scr) 8:01 AM) [facility] [id number] 13:01:00 Test Item Value Reference Range Interpretation Comments U Ysabel Scr (test code Negative *NA*(12/19/16 = U Ysabel Scr) 8:01 AM) [facility] [id number] 13:01:00 Test Item Value Reference Range Interpretation Comments U Benzodia Scr (test Negative *NA*(12/19/16 code = U Benzodia Scr) 8:01 AM) [facility] [id number] 13:01:00 Test Item Value Reference Range Interpretation Comments U Cocaine Scr (test Negative *NA*(12/19/16 code = U Cocaine Scr) 8:01 AM) [facility] [id number] 13:01:00 Test Item Value Reference Range Interpretation Comments UDS Note (test code = See Note (12/19/16 8:01 UDS Note) AM) [facility] [id number] 13:01:00 Test Item Value Reference Range Interpretation Comments U Phencyc Scr (test Negative *NA*(12/19/16 code = U Phencyc Scr) 8:01 AM) [facility] [id number] 13:01:00 Test Item Value Reference Range Interpretation Comments U Opiate Scr (test Negative *NA*(12/19/16 code = U Opiate Scr) 8:01 AM) [facility] [id number] 13:01:00 Test Item Value Reference Range Interpretation Comments U Cannab Scr (test Negative *NA*(12/19/16 code = U Cannab Scr) 8:01 AM) [facility] [id number] 13:01:00 Test Item Value Reference Range Interpretation Comments U Amph Scr (test code Positive *ABN*(12/19/16 = U Amph Scr) 8:01 AM) [facility] [id number] 13:01:00 Test Item Value Reference Range Interpretation Comments U Ysabel Scr (test code Negative *NA*(12/19/16 = U Ysabel Scr) 8:01 AM) [facility] [id number] 13:01:00 Test Item Value Reference Range Interpretation Comments U Benzodia Scr (test Negative *NA*(12/19/16 code = U Benzodia Scr) 8:01 AM) [facility] [id number] 13:01:00 Test Item Value Reference Range Interpretation Comments U Cocaine Scr (test Negative *NA*(12/19/16 code = U Cocaine Scr) 8:01 AM) [facility] [id number] 13:01:00 Test Item Value Reference Range Interpretation Comments UDS Note (test code = See Note (12/19/16 8:01 UDS Note) AM) [facility] [id number] 13:01:00 Test Item Value Reference Range Interpretation Comments U Phencyc Scr (test Negative *NA*(12/19/16 code = U Phencyc Scr) 8:01 AM) [facility] [id number] 13:01:00 Test Item Value Reference Range Interpretation Comments U Opiate Scr (test Negative *NA*(12/19/16 code = U Opiate Scr) 8:01 AM) [facility] [id number] 13:01:00 Test Item Value Reference Range Interpretation Comments U Cannab Scr (test Negative *NA*(12/19/16 code = U Cannab Scr) 8:01 AM) [facility] [id number] 13:01:00 Test Item Value Reference Range Interpretation Comments U Amph Scr (test code Positive *ABN*(12/19/16 = U Amph Scr) 8:01 AM) [facility] [id number] 13:01:00 Test Item Value Reference Range Interpretation Comments U Ysabel Scr (test code Negative *NA*(12/19/16 = U Ysabel Scr) 8:01 AM) [facility] [id number] 13:01:00 Test Item Value Reference Range Interpretation Comments U Benzodia Scr (test Negative *NA*(12/19/16 code = U Benzodia Scr) 8:01 AM) [facility] [id number] 13:01:00 Test Item Value Reference Range Interpretation Comments U Cocaine Scr (test Negative *NA*(12/19/16 code = U Cocaine Scr) 8:01 AM) [facility] [id number] 13:01:00 Test Item Value Reference Range Interpretation Comments UDS Note (test code = See Note (12/19/16 8:01 UDS Note) AM) [facility] [id number] 13:01:00 Test Item Value Reference Range Interpretation Comments U Phencyc Scr (test Negative *NA*(12/19/16 code = U Phencyc Scr) 8:01 AM) [facility] [id number] 13:01:00 Test Item Value Reference Range Interpretation Comments U Opiate Scr (test Negative *NA*(12/19/16 code = U Opiate Scr) 8:01 AM) [facility] [id number] 13:01:00 Test Item Value Reference Range Interpretation Comments U Cannab Scr (test Negative *NA*(12/19/16 code = U Cannab Scr) 8:01 AM) [facility] [id number] 13:01:00 Test Item Value Reference Range Interpretation Comments U Amph Scr (test code Positive *ABN*(12/19/16 = U Amph Scr) 8:01 AM) [facility] [id number] 13:01:00 Test Item Value Reference Range Interpretation Comments U Ysabel Scr (test code Negative *NA*(12/19/16 = U Ysabel Scr) 8:01 AM) [facility] [id number] 13:01:00 Test Item Value Reference Range Interpretation Comments U Benzodia Scr (test Negative *NA*(12/19/16 code = U Benzodia Scr) 8:01 AM) [facility] [id number] 13:01:00 Test Item Value Reference Range Interpretation Comments U Cocaine Scr (test Negative *NA*(12/19/16 code = U Cocaine Scr) 8:01 AM) [facility] [id number] 13:01:00 Test Item Value Reference Range Interpretation Comments UDS Note (test code = See Note (12/19/16 8:01 UDS Note) AM) [facility] [id number] 13:01:00 Test Item Value Reference Range Interpretation Comments U Phencyc Scr (test Negative *NA*(12/19/16 code = U Phencyc Scr) 8:01 AM) [facility] [id number] 13:01:00 Test Item Value Reference Range Interpretation Comments U Opiate Scr (test Negative *NA*(12/19/16 code = U Opiate Scr) 8:01 AM) [facility] [id number] 13:01:00 Test Item Value Reference Range Interpretation Comments U Cannab Scr (test Negative *NA*(12/19/16 code = U Cannab Scr) 8:01 AM) [facility] [id number] 13:01:00 Test Item Value Reference Range Interpretation Comments U Amph Scr (test code Positive *ABN*(12/19/16 = U Amph Scr) 8:01 AM) [facility] [id number] 13:01:00 Test Item Value Reference Range Interpretation Comments U Ysabel Scr (test code Negative *NA*(12/19/16 = U Ysabel Scr) 8:01 AM) [facility] [id number] 13:01:00 Test Item Value Reference Range Interpretation Comments U Benzodia Scr (test Negative *NA*(12/19/16 code = U Benzodia Scr) 8:01 AM) [facility] [id number] 13:01:00 Test Item Value Reference Range Interpretation Comments U Cocaine Scr (test Negative *NA*(12/19/16 code = U Cocaine Scr) 8:01 AM) [facility] [place] [id number] 03:24:00 Test Item Value Reference Range Interpretation Comments Creatinine Lvl (test code = Creatinine 0.90 0.50-1.40 Lvl) [facility] [place] [id number] 03:24:00 Test Item Value Reference Range Interpretation Comments eGFR (test code = eGFR) 100 [facility] [place] [id number] 03:24:00 Test Item Value Reference Range Interpretation Comments AGAP (test code = AGAP) 18.1 10.0-20.0 [facility] [place] [id number] 03:24:00 Test Item Value Reference Range Interpretation Comments CO2 (test code = CO2) 22 24-32 [facility] [place] [id number] 03:24:00 Test Item Value Reference Range Interpretation Comments Chloride Lvl (test code = Chloride Lvl) 97 95-109 [facility] [place] [id number] 03:24:00 Test Item Value Reference Range Interpretation Comments Calcium Lvl (test code = Calcium Lvl) 8.7 8.5-10.5 [facility] [place] [id number] 03:24:00 Test Item Value Reference Range Interpretation Comments Potassium Lvl (test code = Potassium 4.1 3.5-5.1 Lvl) [facility] MeFORMERLY [facility] [id number] 03:24:00 Test Item Value Reference Range Interpretation Comments Sodium Lvl (test code = Sodium Lvl) 133 135-145 [facility] [facility] [place] [id number] 03:24:00 Test Item Value Reference Range Interpretation Comments Glucose Lvl (test code = Glucose Lvl) 92 70-99 [facility]2017-02-19 03:24:00 Test Item Value Reference Range Interpretation Comments BUN (test code = BUN) 04-21 [facility]2017-02-19 03:24:00 Test Item Value Reference Range Interpretation Comments Creatinine Lvl (test code = Creatinine 0.90 0.50-1.40 Lvl) [facility]2017-02-19 03:24:00 Test Item Value Reference Range Interpretation Comments eGFR (test code = eGFR) 100 [facility]2017-02-19 03:24:00 Test Item Value Reference Range Interpretation Comments AGAP (test code = AGAP) 18.1 10.0-20.0 [facility]2017-02-19 03:24:00 Test Item Value Reference Range Interpretation Comments CO2 (test code = CO2) [facility]2017-02-19 03:24:00 Test Item Value Reference Range Interpretation Comments Chloride Lvl (test code = Chloride Lvl) 97 95-109 [facility]2017-02-19 03:24:00 Test Item Value Reference Range Interpretation Comments Calcium Lvl (test code = Calcium Lvl) 8.7 8.5-10.5 [facility]2017-02-19 03:24:00 Test Item Value Reference Range Interpretation Comments Potassium Lvl (test code = Potassium 4.1 3.5-5.1 Lvl) [facility]2017-02-19 03:24:00 Test Item Value Reference Range Interpretation Comments Sodium Lvl (test code = Sodium Lvl) 133 135-145 [facility]2017-02-19 03:24:00 Test Item Value Reference Range Interpretation Comments Glucose Lvl (test code = Glucose Lvl) 92 70-99 [facility]2017-02-19 03:24:00 Test Item Value Reference Range Interpretation Comments BUN (test code = BUN) 04-21 [facility]2017-02-19 03:24:00 Test Item Value Reference Range Interpretation Comments Creatinine Lvl (test code = Creatinine 0.90 0.50-1.40 Lvl) [facility]2017-02-19 03:24:00 Test Item Value Reference Range Interpretation Comments eGFR (test code = eGFR) 100 [place] [id number] 03:24:00 Test Item Value Reference Range Interpretation Comments AGAP (test code = AGAP) 18.1 10.0-20.0 [facility]2017-02-19 03:24:00 Test Item Value Reference Range Interpretation Comments CO2 (test code = CO2) [facility]2017-02-19 03:24:00 Test Item Value Reference Range Interpretation Comments Chloride Lvl (test code = Chloride Lvl) 97 95-109 [facility]2017-02-19 03:24:00 Test Item Value Reference Range Interpretation Comments Calcium Lvl (test code = Calcium Lvl) 8.7 8.5-10.5 [facility]2017-02-19 03:24:00 Test Item Value Reference Range Interpretation Comments Potassium Lvl (test code = Potassium 4.1 3.5-5.1 Lvl) [facility]2017-02-19 03:24:00 Test Item Value Reference Range Interpretation Comments Sodium Lvl (test code = Sodium Lvl) 133 135-145 [facility]2017-02-19 03:24:00 Test Item Value Reference Range Interpretation Comments Glucose Lvl (test code = Glucose Lvl) 92 70-99 [facility]2017-02-19 03:24:00 Test Item Value Reference Range Interpretation Comments BUN (test code = BUN) 12 04-21 [facility]2017-02-19 03:24:00 Test Item Value Reference Range Interpretation Comments Creatinine Lvl (test code = Creatinine 0.90 0.50-1.40 Lvl) [facility]2017-02-19 03:24:00 Test Item Value Reference Range Interpretation Comments eGFR (test code = eGFR) 100 [facility]2017-02-19 03:24:00 Test Item Value Reference Range Interpretation Comments AGAP (test code = AGAP) 18.1 10.0-20.0 [facility]2017-02-19 03:24:00 Test Item Value Reference Range Interpretation Comments CO2 (test code = CO2) [facility]2017-02-19 03:24:00 Test Item Value Reference Range Interpretation Comments Chloride Lvl (test code = Chloride Lvl) 97 95-109 [facility]2017-02-19 03:24:00 Test Item Value Reference Range Interpretation Comments Calcium Lvl (test code = Calcium Lvl) 8.7 8.5-10.5 [facility]2017-02-19 03:24:00 Test Item Value Reference Range Interpretation Comments Potassium Lvl (test code = Potassium 4.1 3.5-5.1 Lvl) [facility]2017-02-19 03:24:00 Test Item Value Reference Range Interpretation Comments Sodium Lvl (test code = Sodium Lvl) 133 135-145 [facility]2017-02-19 03:24:00 Test Item Value Reference Range Interpretation Comments Glucose Lvl (test code = Glucose Lvl) 92 70-99 [facility]2017-02-19 03:24:00 Test Item Value Reference Range Interpretation Comments BUN (test code = BUN) 12 7-22 [facility]2017-02-19 03:24:00 Test Item Value Reference Range Interpretation Comments Creatinine Lvl (test code = Creatinine 0.90 0.50-1.40 Lvl) [facility]2017-02-19 03:24:00 Test Item Value Reference Range Interpretation Comments eGFR (test code = eGFR) 100 [facility]2017-02-19 03:24:00 Test Item Value Reference Range Interpretation Comments AGAP (test code = AGAP) 18.1 10.0-20.0 [facility]2017-02-19 03:24:00 Test Item Value Reference Range Interpretation Comments CO2 (test code = CO2) 22 24-32 [facility]2017-02-19 03:24:00 Test Item Value Reference Range Interpretation Comments Chloride Lvl (test code = Chloride Lvl) 97 95-109 [facility]2017-02-19 03:24:00 Test Item Value Reference Range Interpretation Comments Calcium Lvl (test code = Calcium Lvl) 8.7 8.5-10.5 [facility]2017-02-19 03:24:00 Test Item Value Reference Range Interpretation Comments Potassium Lvl (test code = Potassium 4.1 3.5-5.1 Lvl) [facility]2017-02-19 03:24:00 Test Item Value Reference Range Interpretation Comments Sodium Lvl (test code = Sodium Lvl) 133 135-145 [facility]2017-02-19 03:24:00 Test Item Value Reference Range Interpretation Comments Glucose Lvl (test code = Glucose Lvl) 92 70- [facility]2017-02-19 03:24:00 Test Item Value Reference Range Interpretation Comments BUN (test code = BUN) 04-21 [facility]2017-02-19 03:24:00 Test Item Value Reference Range Interpretation Comments Creatinine Lvl (test code = Creatinine 0.90 0.50-1.40 Lvl) [facility]2017-02-19 03:24:00 Test Item Value Reference Range Interpretation Comments eGFR (test code = eGFR) 100 [facility]2017-02-19 03:24:00 Test Item Value Reference Range Interpretation Comments AGAP (test code = AGAP) 18.1 10.0-20.0 [facility]2017-02-19 03:24:00 Test Item Value Reference Range Interpretation Comments CO2 (test code = CO2) [facility]2017-02-19 03:24:00 Test Item Value Reference Range Interpretation Comments Chloride Lvl (test code = Chloride Lvl) 97 95-109 [facility]2017-02-19 03:24:00 Test Item Value Reference Range Interpretation Comments Calcium Lvl (test code = Calcium Lvl) 8.7 8.5-10.5 [facility]2017-02-19 03:24:00 Test Item Value Reference Range Interpretation Comments Potassium Lvl (test code = Potassium 4.1 3.5-5.1 Lvl) [facility]2017-02-19 03:24:00 Test Item Value Reference Range Interpretation Comments Sodium Lvl (test code = Sodium Lvl) 133 135-145 [facility]2017-02-19 03:24:00 Test Item Value Reference Range Interpretation Comments Glucose Lvl (test code = Glucose Lvl) 92 - [facility]2017-02-19 03:24:00 Test Item Value Reference Range Interpretation Comments BUN (test code = BUN) 04-21 [facility]2017-02-19 03:24:00 Test Item Value Reference Range Interpretation Comments Creatinine Lvl (test code = Creatinine 0.90 0.50-1.40 Lvl) [facility]2017-02-19 03:24:00 Test Item Value Reference Range Interpretation Comments eGFR (test code = eGFR) 100 [facility]2017-02-19 03:24:00 Test Item Value Reference Range Interpretation Comments AGAP (test code = AGAP) 18.1 10.0-20.0 [facility]2017-02-19 03:24:00 Test Item Value Reference Range Interpretation Comments CO2 (test code = CO2) 22 24-32 [facility]2017-02-19 03:24:00 Test Item Value Reference Range Interpretation Comments Chloride Lvl (test code = Chloride Lvl) 97 95-109 [facility]2017-02-19 03:24:00 Test Item Value Reference Range Interpretation Comments Calcium Lvl (test code = Calcium Lvl) 8.7 8.5-10.5 [facility]2017-02-19 03:24:00 Test Item Value Reference Range Interpretation Comments Potassium Lvl (test code = Potassium 4.1 3.5-5.1 Lvl) [facility]2017-02-19 03:24:00 Test Item Value Reference Range Interpretation Comments Sodium Lvl (test code = Sodium Lvl) 133 135-145 [facility]2017-02-19 03:24:00 Test Item Value Reference Range Interpretation Comments Glucose Lvl (test code = Glucose Lvl) 92 70-99 [facility]2017-02-19 03:24:00 Test Item Value Reference Range Interpretation Comments BUN (test code = BUN) 12 7-22 [facility]2017-02-19 03:24:00 Test Item Value Reference Range Interpretation Comments Creatinine Lvl (test code = Creatinine 0.90 0.50-1.40 Lvl) [facility]2017-02-19 03:24:00 Test Item Value Reference Range Interpretation Comments eGFR (test code = eGFR) 100 [facility]2017-02-19 03:24:00 Test Item Value Reference Range Interpretation Comments AGAP (test code = AGAP) 18.1 10.0-20.0 [facility]2017-02-19 03:24:00 Test Item Value Reference Range Interpretation Comments CO2 (test code = CO2) - [facility]2017-02-19 03:24:00 Test Item Value Reference Range Interpretation Comments Chloride Lvl (test code = Chloride Lvl) 97 95-109 [facility]2017-02-19 03:24:00 Test Item Value Reference Range Interpretation Comments Calcium Lvl (test code = Calcium Lvl) 8.7 8.5-10.5 [facility]2017-02-19 03:24:00 Test Item Value Reference Range Interpretation Comments Potassium Lvl (test code = Potassium 4.1 3.5-5.1 Lvl) [facility]2017-02-19 03:24:00 Test Item Value Reference Range Interpretation Comments Sodium Lvl (test code = Sodium Lvl) 133 135-145 [facility]2017-02-19 03:24:00 Test Item Value Reference Range Interpretation Comments Glucose Lvl (test code = Glucose Lvl) 92 70-99 [facility]2017-02-19 03:24:00 Test Item Value Reference Range Interpretation Comments BUN (test code = BUN) 12 04-21 [facility]2017-02-19 03:24:00 Test Item Value Reference Range Interpretation Comments Creatinine Lvl (test code = Creatinine 0.90 0.50-1.40 Lvl) [facility]2017-02-19 03:24:00 Test Item Value Reference Range Interpretation Comments eGFR (test code = eGFR) 100 [facility]2017-02-19 03:24:00 Test Item Value Reference Range Interpretation Comments AGAP (test code = AGAP) 18.1 10.0-20.0 [facility]2017-02-19 03:24:00 Test Item Value Reference Range Interpretation Comments CO2 (test code = CO2) [facility]2017-02-19 03:24:00 Test Item Value Reference Range Interpretation Comments Chloride Lvl (test code = Chloride Lvl) 97 95-109 [facility]2017-02-19 03:24:00 Test Item Value Reference Range Interpretation Comments Calcium Lvl (test code = Calcium Lvl) 8.7 8.5-10.5 [facility]2017-02-19 03:24:00 Test Item Value Reference Range Interpretation Comments Potassium Lvl (test code = Potassium 4.1 3.5-5.1 Lvl) [facility]2017-02-19 03:24:00 Test Item Value Reference Range Interpretation Comments Sodium Lvl (test code = Sodium Lvl) 133 135-145 [facility]2017-02-19 03:24:00 Test Item Value Reference Range Interpretation Comments Glucose Lvl (test code = Glucose Lvl) 92 70-99 [facility]2017-02-19 03:24:00 Test Item Value Reference Range Interpretation Comments BUN (test code = BUN) 12 7-22 [facility]2017-02-19 02:24:00 Test Item Value Reference Range Interpretation Comments UDS Note (test code = See Note (11/18/16 8:24 UDS Note) PM) [facility]2017-02-19 02:24:00 Test Item Value Reference Range Interpretation Comments U Propoxyph Scr (test Negative *NA*(11/18/16 code = U Propoxyph Scr) 8:24 PM) [facility]2017-02-19 02:24:00 Test Item Value Reference Range Interpretation Comments U Methadone Scr (test Negative *NA*(11/18/16 code = U Methadone Scr) 8:24 PM) [id number] 02:24:00 Test Item Value Reference Range Interpretation Comments Monocytes # (test code 0.7 See_Comment [Aut omated message] The = Monocytes #) system which generated this result tra nsmitted reference range : <=0.8. The reference r natasha was not used to int erpret this result as normal/abnormal . [facility] Re[id number] 02:24:00 Test Item Value Reference Range Interpretation Comments Basophils # (test code 0.1 See_Comment [Aut omated message] The = Basophils #) system which generated this result tra nsmitted reference range : <=0.2. The reference r natasha was not used to int erpret this result as normal/abnormal . [facility] RegionalZqskkwcVZYFBBKVLW7644-14-60 02:24:00 Test Item Value Reference Range Interpretation Comments Eosinophils # (test code 0.1 See_Comment [A utomated message] The = Eosinophils #) system whic h generated this result tra nsmitted reference range : <=0.5. The reference r natasha was not used to int erpret this result as normal/abnormal . [facility] RegionalCxtmhrnWMCMKCFTUN0885-75-71 02:24:00 Test Item Value Reference Range Interpretation Comments Segs (test code = Segs) 72.1 45.0-75.0 [facility] R[id number] 02:24:00 Test Item Value Reference Range Interpretation Comments Lymphocytes (test code = Lymphocytes) 20.2 20.0-40.0 [facility] Re[id number] 02:24:00 Test Item Value Reference Range Interpretation Comments Monocytes (test code = Monocytes) 6.1 2.0-12.0 [facility] RegionalXfobvnlSUNHGVBSWC2010-27-94 02:24:00 Test Item Value Reference Range Interpretation Comments Segs-Bands # (test code = Segs-Bands #) 8.2 1.5-8.1 [facility] RegionalUkpqwntUWVHWGVOUO4677-50-45 02:24:00 Test Item Value Reference Range Interpretation Comments Eosinophils (test code = 0.9 See_Comment [A utomated message] The Eosinophils) system which ge nerated this result tra nsmitted reference range : <=4.0. The reference r natasha was not used to int erpret this result as normal/abnormal . [facility] RegionalYvcvtuvXRENTYKQYK6625-81-20 02:24:00 Test Item Value Reference Range Interpretation Comments Basophils (test code = 0.7 See_Comment [Aut omated message] The Basophils) system which ge nerated this result tra nsmitted reference range : <=1.0. The reference r natasha was not used to int erpret this result as normal/abnormal . [facility] RegionalJdbgbdcPVSVDAFBQE1229-97-73 02:24:00 Test Item Value Reference Range Interpretation Comments Lymphocytes # (test code = Lymphocytes 2.3 1.0-5.5 #) [facility] RegionalXiwfsvjMUUNDKQIFG7736-47-52 02:24:00 Test Item Value Reference Range Interpretation Comments RBC Morph (test code = Normal (11/18/16 8:24 RBC Morph) PM) [facility] RegionalD[id number] 02:24:00 Test Item Value Reference Range Interpretation Comments Plt Morph (test code = Normal (11/18/16 8:24 Plt Morph) PM) [facility] RegionalKzsycsfSEOBQWILSH2011-90-33 02:24:00 Test Item Value Reference Range Interpretation Comments Hgb (test code = Hgb) 15.2 14.0-18.0 [facility] RegionalSpsdjxaKLJMJDQWCX5686-21-61 02:24:00 Test Item Value Reference Range Interpretation Comments WBC (test code = WBC) 11.3 3.7-10.4 [facility] RegionalEuydsnzPDMEHQBSIC4016-57-18 02:24:00 Test Item Value Reference Range Interpretation Comments Hct (test code = Hct) 43.2 42.0-54.0 [facility] RegionalXgeprwdORABEDADDV7175-90-46 02:24:00 Test Item Value Reference Range Interpretation Comments MCHC (test code = MCHC) 35.1 32.0-36.0 [facility] RegionalRzwnelgIWZZSXQDIV5133-24-86 02:24:00 Test Item Value Reference Range Interpretation Comments RBC (test code = RBC) 4.57 4.70-6.10 [facility] RegionalLehvqhjFPJSSTGLLZ4708-72-06 02:24:00 Test Item Value Reference Range Interpretation Comments MCV (test code = MCV) 94.6 80.0-94.0 [facility] RegionalRkmqyfvMQCLVLOHIU1077-05-14 02:24:00 Test Item Value Reference Range Interpretation Comments RDW (test code = RDW) 12.5 11.5-14.5 [facility] RegionalEwlsqohPQJCXXNFPI5924-39-65 02:24:00 Test Item Value Reference Range Interpretation Comments MCH (test code = MCH) 33.2 pg 27.0-31.0 [facility] RegionalVduadgsQPPXMPTRSD9598-68-37 02:24:00 Test Item Value Reference Range Interpretation Comments MPV (test code = MPV) 6.6 7.4-10.4 [facility] RegionalOlpvxscGHJZXCRZWQ8301-44-14 02:24:00 Test Item Value Reference Range Interpretation Comments Platelet (test code = Platelet) 231 133-450 [facility] RegionalOwkzwpuVQAZZBTXCT7911-32-85 02:24:00 Test Item Value Reference Range Interpretation Comments PT (test code = PT) 13.1 s 12.0-14.7 [facility] RegionalForhdsxMPTVFCPWWN0260-71-16 02:24:00 Test Item Value Reference Range Interpretation Comments INR (test code = INR) 0.97 0.85-1.17 [facility] RegionalSawvbviXWRRKGCFFJ0266-35-43 02:24:00 Test Item Value Reference Range Interpretation Comments PTT (test code = PTT) 27.1 s 22.9-35.8 [facility] [employer] [id number] 02:24:00 Test Item Value Reference Range Interpretation Comments ABO/Rh (test code = ABO/Rh) O NEG [facility] [employer] [id number] 02:24:00 Test Item Value Reference Range Interpretation Comments Antibody Scrn (test Negative (11/18/16 8:24 code = Antibody Scrn) PM) [facility] [id number] 02:24:00 Test Item Value Reference Range Interpretation Comments U Cocaine Scr (test Positive *ABN*(11/18/16 code = U Cocaine Scr) 8:24 PM) [facility] [employer] [id number] 02:24:00 Test Item Value Reference Range Interpretation Comments U Benzodia Scr (test Negative *NA*(11/18/16 code = U Benzodia Scr) 8:24 PM) [facility] [employer] [id number] 02:24:00 Test Item Value Reference Range Interpretation Comments U Amph Scr (test code Negative *NA*(11/18/16 = U Amph Scr) 8:24 PM) [facility] [id number] 02:24:00 Test Item Value Reference Range Interpretation Comments U Opiate Scr (test Positive *ABN*(11/18/16 code = U Opiate Scr) 8:24 PM) [facility] [id number] 02:24:00 Test Item Value Reference Range Interpretation Comments U Cannab Scr (test Negative *NA*(11/18/16 code = U Cannab Scr) 8:24 PM) [facility] [id number] 02:24:00 Test Item Value Reference Range Interpretation Comments U Ysabel Scr (test code Negative *NA*(11/18/16 = U Ysabel Scr) 8:24 PM) [facility] [id number] 02:24:00 Test Item Value Reference Range Interpretation Comments U Phencyc Scr (test Negative *NA*(11/18/16 code = U Phencyc Scr) 8:24 PM) [facility] [id number] 02:24:00 Test Item Value Reference Range Interpretation Comments UDS Note (test code = See Note (11/18/16 8:24 UDS Note) PM) [id number] 02:24:00 Test Item Value Reference Range Interpretation Comments U Propoxyph Scr (test Negative *NA*(11/18/16 code = U Propoxyph Scr) 8:24 PM) [facility] [id number] 02:24:00 Test Item Value Reference Range Interpretation Comments U Methadone Scr (test Negative *NA*(11/18/16 code = U Methadone Scr) 8:24 PM) [facility] RegionalZtkwxfcJSQCBSCOLI0591-14-12 02:24:00 Test Item Value Reference Range Interpretation Comments Monocytes # (test code 0.7 See_Comment [Aut omated message] The = Monocytes #) system which generated this result tra nsmitted reference range : <=0.8. The reference r natasha was not used to int erpret this result as normal/abnormal . [facility] R[id number] 02:24:00 Test Item Value Reference Range Interpretation Comments Basophils # (test code 0.1 See_Comment [Aut omated message] The = Basophils #) system which generated this result tra nsmitted reference range : <=0.2. The reference r natasha was not used to int erpret this result as normal/abnormal . [facility] RegionalZqzlospHYZJKAZXJK3801-42-42 02:24:00 Test Item Value Reference Range Interpretation Comments Eosinophils # (test code 0.1 See_Comment [A utomated message] The = Eosinophils #) system whic h generated this result tra nsmitted reference range : <=0.5. The reference r natasha was not used to int erpret this result as normal/abnormal . [facility] R[id number] 02:24:00 Test Item Value Reference Range Interpretation Comments Segs (test code = Segs) 72.1 45.0-75.0 [facility] RegionalCnpszfaXSTFAHGOFX5545-58-61 02:24:00 Test Item Value Reference Range Interpretation Comments Lymphocytes (test code = Lymphocytes) 20.2 20.0-40.0 [facility] R[id number] 02:24:00 Test Item Value Reference Range Interpretation Comments Monocytes (test code = Monocytes) 6.1 2.0-12.0 [facility] R[id number] 02:24:00 Test Item Value Reference Range Interpretation Comments Segs-Bands # (test code = Segs-Bands #) 8.2 1.5-8.1 [facility] [id number] 02:24:00 Test Item Value Reference Range Interpretation Comments Eosinophils (test code = 0.9 See_Comment [A utomated message] The Eosinophils) system which ge nerated this result tra nsmitted reference range : <=4.0. The reference r natasha was not used to int erpret this result as normal/abnormal . [facility]OlazfmjNSTKXHZJXF5143-15-00 02:24:00 Test Item Value Reference Range Interpretation Comments Basophils (test code = 0.7 See_Comment [Aut omated message] The Basophils) system which ge nerated this result tra nsmitted reference range : <=1.0. The reference r natasha was not used to int erpret this result as normal/abnormal . [facility]CsolnudAGZXDFJDPG2004-67-10 02:24:00 Test Item Value Reference Range Interpretation Comments Lymphocytes # (test code = Lymphocytes 2.3 1.0-5.5 #) [facility] [employer] [id number] 02:24:00 Test Item Value Reference Range Interpretation Comments ABO/Rh (test code = ABO/Rh) O NEG [facility] [employer] [id number] 02:24:00 Test Item Value Reference Range Interpretation Comments Antibody Scrn (test Negative (11/18/16 8:24 code = Antibody Scrn) PM) [facility] [employer] [id number] 02:24:00 Test Item Value Reference Range Interpretation Comments U Cocaine Scr (test Positive *ABN*(11/18/16 code = U Cocaine Scr) 8:24 PM) [facility] [employer] [id number] 02:24:00 Test Item Value Reference Range Interpretation Comments U Benzodia Scr (test Negative *NA*(11/18/16 code = U Benzodia Scr) 8:24 PM) [facility] [employer] [id number] 02:24:00 Test Item Value Reference Range Interpretation Comments U Amph Scr (test code Negative *NA*(11/18/16 = U Amph Scr) 8:24 PM) [facility] [employer] [id number] 02:24:00 Test Item Value Reference Range Interpretation Comments U Opiate Scr (test Positive *ABN*(11/18/16 code = U Opiate Scr) 8:24 PM) [facility] [id number] 02:24:00 Test Item Value Reference Range Interpretation Comments U Cannab Scr (test Negative *NA*(11/18/16 code = U Cannab Scr) 8:24 PM) [facility] [id number] 02:24:00 Test Item Value Reference Range Interpretation Comments U Ysabel Scr (test code Negative *NA*(11/18/16 = U Ysabel Scr) 8:24 PM) [facility] [id number] 02:24:00 Test Item Value Reference Range Interpretation Comments U Phencyc Scr (test Negative *NA*(11/18/16 code = U Phencyc Scr) 8:24 PM) [facility] [id number] 02:24:00 Test Item Value Reference Range Interpretation Comments UDS Note (test code = See Note (11/18/16 8:24 UDS Note) PM) [facility] [id number] 02:24:00 Test Item Value Reference Range Interpretation Comments U Propoxyph Scr (test Negative *NA*(11/18/16 code = U Propoxyph Scr) 8:24 PM) [facility] [id number] 02:24:00 Test Item Value Reference Range Interpretation Comments U Methadone Scr (test Negative *NA*(11/18/16 code = U Methadone Scr) 8:24 PM) [facility] CenterOyeeyifTTLHRUEXKO1865-66-67 02:24:00 Test Item Value Reference Range Interpretation Comments Monocytes # (test code 0.7 See_Comment [Aut omated message] The = Monocytes #) system which generated this result tra nsmitted reference range : <=0.8. The reference r natasha was not used to int erpret this result as normal/abnormal . [facility] CenterDcdarkqQLRNDBFJRS9417-54-72 02:24:00 Test Item Value Reference Range Interpretation Comments Basophils # (test code 0.1 See_Comment [Aut omated message] The = Basophils #) system which generated this result tra nsmitted reference range : <=0.2. The reference r natasha was not used to int erpret this result as normal/abnormal . [facility] CenterKwhmodtQNJMVLAQZY5957-35-25 02:24:00 Test Item Value Reference Range Interpretation Comments Eosinophils # (test code 0.1 See_Comment [A utomated message] The = Eosinophils #) system whic h generated this result tra nsmitted reference range : <=0.5. The reference r natasha was not used to int erpret this result as normal/abnormal . [facility] RegionalFaghjqaKWHJTGCFFQ9798-71-25 02:24:00 Test Item Value Reference Range Interpretation Comments Segs (test code = Segs) 72.1 45.0-75.0 [facility] RegionalBmybdnnZMRCZLPMAG4162-00-42 02:24:00 Test Item Value Reference Range Interpretation Comments Lymphocytes (test code = Lymphocytes) 20.2 20.0-40.0 [facility] RegionalEviznvvYLUBRSHXQI8870-31-45 02:24:00 Test Item Value Reference Range Interpretation Comments Monocytes (test code = Monocytes) 6.1 2.0-12.0 [facility] RegionalEizszzwEBBHXXSVLA3517-98-78 02:24:00 Test Item Value Reference Range Interpretation Comments Segs-Bands # (test code = Segs-Bands #) 8.2 1.5-8.1 [facility] RegionalSqislvvCUKDAGVNIY6531-34-50 02:24:00 Test Item Value Reference Range Interpretation Comments Eosinophils (test code = 0.9 See_Comment [A utomated message] The Eosinophils) system which ge nerated this result tra nsmitted reference range : <=4.0. The reference r natasha was not used to int erpret this result as normal/abnormal . [facility] RegionalAfgmhxkVRXCFYURUN7298-95-49 02:24:00 Test Item Value Reference Range Interpretation Comments Basophils (test code = 0.7 See_Comment [Aut omated message] The Basophils) system which ge nerated this result tra nsmitted reference range : <=1.0. The reference r natasha was not used to int erpret this result as normal/abnormal . [facility] RegionalWascslsNKBFSYWTRP8010-49-19 02:24:00 Test Item Value Reference Range Interpretation Comments Lymphocytes # (test code = Lymphocytes 2.3 1.0-5.5 #) [facility] RegionalTyzqqjuJRXZZKGVAU0793-91-67 02:24:00 Test Item Value Reference Range Interpretation Comments RBC Morph (test code = Normal (11/18/16 8:24 RBC Morph) PM) [facility] RegionalColmhmpRDFTTYFYYG2872-51-52 02:24:00 Test Item Value Reference Range Interpretation Comments Plt Morph (test code = Normal (2/18/17 8:24 Plt Morph) PM) [facility] RegionalJmhblknOAOKABMMQN0772-46-60 02:24:00 Test Item Value Reference Range Interpretation Comments Hgb (test code = Hgb) 15.2 14.0-18.0 [facility] RegionalGdqecseDCEQJHERUY4095-47-29 02:24:00 Test Item Value Reference Range Interpretation Comments WBC (test code = WBC) 11.3 3.7-10.4 [facility] RegionalLketyddGONOYFQZAG7761-30-39 02:24:00 Test Item Value Reference Range Interpretation Comments Hct (test code = Hct) 43.2 42.0-54.0 [facility] RegionalJsoaskoLRSXHDFJMD4600-45-29 02:24:00 Test Item Value Reference Range Interpretation Comments MCHC (test code = MCHC) 35.1 32.0-36.0 [facility] RegionalCjrihcyTAPNIULMSQ4235-47-76 02:24:00 Test Item Value Reference Range Interpretation Comments RBC (test code = RBC) 4.57 4.70-6.10 [facility] RegionalZitepidMUQRDYZCKV7607-67-71 02:24:00 Test Item Value Reference Range Interpretation Comments MCV (test code = MCV) 94.6 80.0-94.0 [facility] RegionalFtazkrqMGHUZVKZXF6387-69-08 02:24:00 Test Item Value Reference Range Interpretation Comments RDW (test code = RDW) 12.5 11.5-14.5 [facility] RegionalQpduzwsKOCNCREZGE8431-03-09 02:24:00 Test Item Value Reference Range Interpretation Comments MCH (test code = MCH) 33.2 pg 27.0-31.0 [facility] RegionalDuwaqnlLHIZGCXWFL3387-34-87 02:24:00 Test Item Value Reference Range Interpretation Comments MPV (test code = MPV) 6.6 7.4-10.4 [facility] RegionalXkpgoqmEHFPULBZDF0373-32-49 02:24:00 Test Item Value Reference Range Interpretation Comments Platelet (test code = Platelet) 231 133-450 [facility] RegionalFdzrfmjMHLOLEIHKA9030-74-75 02:24:00 Test Item Value Reference Range Interpretation Comments PT (test code = PT) 13.1 s 12.0-14.7 [facility] RegionalLavefgpHUYYJWVWDL2188-24-14 02:24:00 Test Item Value Reference Range Interpretation Comments INR (test code = INR) 0.97 0.85-1.17 [facility] RegionalXtxmvvjTTHHYWRXCA9012-48-40 02:24:00 Test Item Value Reference Range Interpretation Comments PTT (test code = PTT) 27.1 s 22.9-35.8 [facility] RegionalOnnxuepQWTVQKKPHB9224-00-93 02:24:00 Test Item Value Reference Range Interpretation Comments RBC Morph (test code = Normal (11/18/16 8:24 RBC Morph) PM) [facility] RegionalPlsogwdEKYHGUVSQU5172-11-51 02:24:00 Test Item Value Reference Range Interpretation Comments Plt Morph (test code = Normal (11/18/16 8:24 Plt Morph) PM) [facility] RegionalTrkykbqGOXBSAOCEE2905-31-55 02:24:00 Test Item Value Reference Range Interpretation Comments Hgb (test code = Hgb) 15.2 14.0-18.0 [facility] RegionalPuinfqjTDERPPSMPU1197-35-75 02:24:00 Test Item Value Reference Range Interpretation Comments WBC (test code = WBC) 11.3 3.7-10.4 [facility] RegionalSkssajyHCNWFIAEFH8438-07-66 02:24:00 Test Item Value Reference Range Interpretation Comments Hct (test code = Hct) 43.2 42.0-54.0 [facility] RegionalLdcqkrlGXNCRNHJXN8823-93-50 02:24:00 Test Item Value Reference Range Interpretation Comments MCHC (test code = MCHC) 35.1 32.0-36.0 [facility] RegionalTuqwrkuYQMMGTADGN4200-57-09 02:24:00 Test Item Value Reference Range Interpretation Comments RBC (test code = RBC) 4.57 4.70-6.10 [facility] RegionalKjdxiwaJGYBXIOWFR4213-34-45 02:24:00 Test Item Value Reference Range Interpretation Comments MCV (test code = MCV) 94.6 80.0-94.0 [facility] RegionalJqdkrwnBCVNGSSYBB3701-69-76 02:24:00 Test Item Value Reference Range Interpretation Comments RDW (test code = RDW) 12.5 11.5-14.5 [facility] RegionalDfsoswsWGJEASGLQI7369-29-83 02:24:00 Test Item Value Reference Range Interpretation Comments MCH (test code = MCH) 33.2 pg 27.0-31.0 [facility] RegionalFsamcuaSVKUFCQQFM9470-95-59 02:24:00 Test Item Value Reference Range Interpretation Comments MPV (test code = MPV) 6.6 7.4-10.4 [facility] RegionalSlebweeKCDGHGGMZZ4963-74-23 02:24:00 Test Item Value Reference Range Interpretation Comments Platelet (test code = Platelet) 231 133-450 [facility] ZtjjndaNSXHAYNTCO7254-11-10 02:24:00 Test Item Value Reference Range Interpretation Comments PT (test code = PT) 13.1 s 12.0-14.7 [facility] NqpwhybKCCUTYPVBK0468-14-53 02:24:00 Test Item Value Reference Range Interpretation Comments INR (test code = INR) 0.97 0.85-1.17 [facility] CyvlqrxLIEQHDWMNN8207-51-21 02:24:00 Test Item Value Reference Range Interpretation Comments PTT (test code = PTT) 27.1 s 22.9-35.8 [employer] [id number] 02:24:00 Test Item Value Reference Range Interpretation Comments ABO/Rh (test code = ABO/Rh) O NEG [facility] [employer] [id number] 02:24:00 Test Item Value Reference Range Interpretation Comments Antibody Scrn (test Negative (11/18/16 8:24 code = Antibody Scrn) PM) [employer] [id number] 02:24:00 Test Item Value Reference Range Interpretation Comments U Cocaine Scr (test Positive *ABN*(11/18/16 code = U Cocaine Scr) 8:24 PM) [employer] [id number] 02:24:00 Test Item Value Reference Range Interpretation Comments U Benzodia Scr (test Negative *NA*(11/18/16 code = U Benzodia Scr) 8:24 PM) [facility] [employer] [id number] 02:24:00 Test Item Value Reference Range Interpretation Comments U Amph Scr (test code Negative *NA*(11/18/16 = U Amph Scr) 8:24 PM) [employer] [id number] 02:24:00 Test Item Value Reference Range Interpretation Comments U Opiate Scr (test Positive *ABN*(11/18/16 code = U Opiate Scr) 8:24 PM) [facility] [employer] [id number] 02:24:00 Test Item Value Reference Range Interpretation Comments U Cannab Scr (test Negative *NA*(11/18/16 code = U Cannab Scr) 8:24 PM) [facility] [employer] [id number] 02:24:00 Test Item Value Reference Range Interpretation Comments U Ysabel Scr (test code Negative *NA*(11/18/16 = U Ysabel Scr) 8:24 PM) [facility] [id number] 02:24:00 Test Item Value Reference Range Interpretation Comments U Phencyc Scr (test Negative *NA*(11/18/16 code = U Phencyc Scr) 8:24 PM) [facility] [id number] 02:24:00 Test Item Value Reference Range Interpretation Comments UDS Note (test code = See Note (11/18/16 8:24 UDS Note) PM) [facility] [id number] 02:24:00 Test Item Value Reference Range Interpretation Comments U Propoxyph Scr (test Negative *NA*(11/18/16 code = U Propoxyph Scr) 8:24 PM) [facility] [id number] 02:24:00 Test Item Value Reference Range Interpretation Comments U Methadone Scr (test Negative *NA*(11/18/16 code = U Methadone Scr) 8:24 PM) [facility] CenterGwvujwnONWVGNMKJQ1908-84-44 02:24:00 Test Item Value Reference Range Interpretation Comments Monocytes # (test code 0.7 See_Comment [Aut omated message] The = Monocytes #) system which generated this result tra nsmitted reference range : <=0.8. The reference r natasha was not used to int erpret this result as normal/abnormal . [facility] RegionalXgzogicXQFPDSHFGU0568-04-39 02:24:00 Test Item Value Reference Range Interpretation Comments Basophils # (test code 0.1 See_Comment [Aut omated message] The = Basophils #) system which generated this result tra nsmitted reference range : <=0.2. The reference r natasha was not used to int erpret this result as normal/abnormal . [facility] RegionalQvxtbdgUUIIIAHPMO2913-08-16 02:24:00 Test Item Value Reference Range Interpretation Comments Eosinophils # (test code 0.1 See_Comment [A utomated message] The = Eosinophils #) system whic h generated this result tra nsmitted reference range : <=0.5. The reference r natasha was not used to int erpret this result as normal/abnormal . [facility] RegionalNkgaaypRGMVVUYDJH4335-80-91 02:24:00 Test Item Value Reference Range Interpretation Comments Segs (test code = Segs) 72.1 45.0-75.0 [facility] RegionalWbyixrlUULJJOENGF7814-93-17 02:24:00 Test Item Value Reference Range Interpretation Comments Lymphocytes (test code = Lymphocytes) 20.2 20.0-40.0 [facility] RegionalOlwratdJLYXZZPXHO9624-99-27 02:24:00 Test Item Value Reference Range Interpretation Comments Monocytes (test code = Monocytes) 6.1 2.0-12.0 [facility] RegionalMxodurkPNFMYACFXT0349-97-76 02:24:00 Test Item Value Reference Range Interpretation Comments Segs-Bands # (test code = Segs-Bands #) 8.2 1.5-8.1 [facility] RegionalXjkcfigXRSPWVWRSW6140-03-63 02:24:00 Test Item Value Reference Range Interpretation Comments Eosinophils (test code = 0.9 See_Comment [A utomated message] The Eosinophils) system which ge nerated this result tra nsmitted reference range : <=4.0. The reference r natasha was not used to int erpret this result as normal/abnormal . [facility] RegionalZhtpslvHCFYMTMENG1192-40-91 02:24:00 Test Item Value Reference Range Interpretation Comments Basophils (test code = 0.7 See_Comment [Aut omated message] The Basophils) system which ge nerated this result tra nsmitted reference range : <=1.0. The reference r natasha was not used to int erpret this result as normal/abnormal . [facility] RegionalLraklitJCRWOQBMJN5525-25-86 02:24:00 Test Item Value Reference Range Interpretation Comments Lymphocytes # (test code = Lymphocytes 2.3 1.0-5.5 #) [facility] RegionalStoybizBOYGGZIRIN1986-19-71 02:24:00 Test Item Value Reference Range Interpretation Comments RBC Morph (test code = Normal (11/18/16 8:24 RBC Morph) PM) [facility] RegionalMebdjhxALVJIIFITF1152-66-41 02:24:00 Test Item Value Reference Range Interpretation Comments Plt Morph (test code = Normal (11/18/16 8:24 Plt Morph) PM) [facility] RegionalMmbfsfaDGVBGLZSLS5872-61-35 02:24:00 Test Item Value Reference Range Interpretation Comments Hgb (test code = Hgb) 15.2 14.0-18.0 [facility] RegionalPikyhpiWWJGWVEKIE3483-87-63 02:24:00 Test Item Value Reference Range Interpretation Comments WBC (test code = WBC) 11.3 3.7-10.4 [facility] RegionalEizqjfkZVALLTUEHJ8305-36-93 02:24:00 Test Item Value Reference Range Interpretation Comments Hct (test code = Hct) 43.2 42.0-54.0 [facility] RegionalDrkfcdmHZMTDJDYMQ1958-05-36 02:24:00 Test Item Value Reference Range Interpretation Comments MCHC (test code = MCHC) 35.1 32.0-36.0 [facility] RegionalIookkqlEBDHTQATWF9887-73-71 02:24:00 Test Item Value Reference Range Interpretation Comments RBC (test code = RBC) 4.57 4.70-6.10 [facility] RegionalTsgfsgnJWIYIMABRZ1653-61-18 02:24:00 Test Item Value Reference Range Interpretation Comments MCV (test code = MCV) 94.6 80.0-94.0 [facility] RegionalUlgqpbtLIWBSDVMTN4696-90-15 02:24:00 Test Item Value Reference Range Interpretation Comments RDW (test code = RDW) 12.5 11.5-14.5 [facility] RegionalYcxsazkIRNHYCTUMU1978-73-20 02:24:00 Test Item Value Reference Range Interpretation Comments MCH (test code = MCH) 33.2 pg 27.0-31.0 [facility] RegionalHwwvkjjMMCPBXVFDS9351-45-70 02:24:00 Test Item Value Reference Range Interpretation Comments MPV (test code = MPV) 6.6 7.4-10.4 [facility] RegionalXgbhlfqYITQFCCURB9921-85-57 02:24:00 Test Item Value Reference Range Interpretation Comments Platelet (test code = Platelet) 231 133-450 [facility] RegionalHjdfpefSGHLVVXCQO8774-15-31 02:24:00 Test Item Value Reference Range Interpretation Comments PT (test code = PT) 13.1 s 12.0-14.7 [facility] RegionalAmvdnlfOLUGSBUJMV7088-18-00 02:24:00 Test Item Value Reference Range Interpretation Comments INR (test code = INR) 0.97 0.85-1.17 [facility] RegionalWouhkcrYWMOTVKXUN3630-86-98 02:24:00 Test Item Value Reference Range Interpretation Comments PTT (test code = PTT) 27.1 s 22.9-35.8 [facility] [id number] 02:24:00 Test Item Value Reference Range Interpretation Comments ABO/Rh (test code = ABO/Rh) O NEG [facility] [id number] 02:24:00 Test Item Value Reference Range Interpretation Comments Antibody Scrn (test Negative (11/18/16 8:24 code = Antibody Scrn) PM) [facility]ann[facility] [id number] 02:24:00 Test Item Value Reference Range Interpretation Comments U Cocaine Scr (test Positive *ABN*(11/18/16 code = U Cocaine Scr) 8:24 PM) [facility] [id number] 02:24:00 Test Item Value Reference Range Interpretation Comments U Benzodia Scr (test Negative *NA*(11/18/16 code = U Benzodia Scr) 8:24 PM) [facility]annDR[facility] [id number] 02:24:00 Test Item Value Reference Range Interpretation Comments U Amph Scr (test code Negative *NA*(11/18/16 = U Amph Scr) 8:24 PM) [facility] [id number] 02:24:00 Test Item Value Reference Range Interpretation Comments U Opiate Scr (test Positive *ABN*(11/18/16 code = U Opiate Scr) 8:24 PM) [facility]annDR[facility] HPMKFQ5585-23-45 02:24:00 Test Item Value Reference Range Interpretation Comments U Cannab Scr (test Negative *NA*(11/18/16 code = U Cannab Scr) 8:24 PM) [facility]ann[facility] [id number] 02:24:00 Test Item Value Reference Range Interpretation Comments U Ysabel Scr (test code Negative *NA*(11/18/16 = U Ysabel Scr) 8:24 PM) [facility]ann[facility] [id number] 02:24:00 Test Item Value Reference Range Interpretation Comments U Phencyc Scr (test Negative *NA*(11/18/16 code = U Phencyc Scr) 8:24 PM) [facility]ann[facility] [id number] 02:24:00 Test Item Value Reference Range Interpretation Comments UDS Note (test code = See Note (11/18/16 8:24 UDS Note) PM) [facility]ann[facility] [id number] 02:24:00 Test Item Value Reference Range Interpretation Comments U Propoxyph Scr (test Negative *NA*(11/18/16 code = U Propoxyph Scr) 8:24 PM) [facility]2017-02-19 02:24:00 Test Item Value Reference Range Interpretation Comments U Methadone Scr (test Negative *NA*(11/18/16 code = U Methadone Scr) 8:24 PM) [facility] RegionalHlgitymGGZABYVOUY1407-64-38 02:24:00 Test Item Value Reference Range Interpretation Comments Monocytes # (test code 0.7 See_Comment [Aut omated message] The = Monocytes #) system which generated this result tra nsmitted reference range : <=0.8. The reference r natasha was not used to int erpret this result as normal/abnormal . [facility] RegionalObvtaoxNMLXJFHWQE3216-71-68 02:24:00 Test Item Value Reference Range Interpretation Comments Basophils # (test code 0.1 See_Comment [Aut omated message] The = Basophils #) system which generated this result tra nsmitted reference range : <=0.2. The reference r natasha was not used to int erpret this result as normal/abnormal . [facility] RegionalGzietxpSZTBKYXDQU8548-02-44 02:24:00 Test Item Value Reference Range Interpretation Comments Eosinophils # (test code 0.1 See_Comment [A utomated message] The = Eosinophils #) system whic h generated this result tra nsmitted reference range : <=0.5. The reference r natasha was not used to int erpret this result as normal/abnormal . [facility] RegionalRdadvciPEVHBTAMUV2911-02-69 02:24:00 Test Item Value Reference Range Interpretation Comments Segs (test code = Segs) 72.1 45.0-75.0 [facility] RegionalSxeyklnDLMCHLTTWN0251-16-69 02:24:00 Test Item Value Reference Range Interpretation Comments Lymphocytes (test code = Lymphocytes) 20.2 20.0-40.0 [facility] RegionalNqrkscsMJEVSZXJUC1896-75-98 02:24:00 Test Item Value Reference Range Interpretation Comments Monocytes (test code = Monocytes) 6.1 2.0-12.0 [facility] RegionalTtipxlxEEOTBHIUVB5116-16-94 02:24:00 Test Item Value Reference Range Interpretation Comments Segs-Bands # (test code = Segs-Bands #) 8.2 1.5-8.1 [facility] RegionalSwwbcanAWVCMXRQKU9782-65-78 02:24:00 Test Item Value Reference Range Interpretation Comments Eosinophils (test code = 0.9 See_Comment [A utomated message] The Eosinophils) system which ge nerated this result tra nsmitted reference range : <=4.0. The reference r natasha was not used to int erpret this result as normal/abnormal . [facility] RegionalOgslfqtGTIJIKBJYO9626-45-68 02:24:00 Test Item Value Reference Range Interpretation Comments Basophils (test code = 0.7 See_Comment [Aut omated message] The Basophils) system which ge nerated this result tra nsmitted reference range : <=1.0. The reference r natasha was not used to int erpret this result as normal/abnormal . [facility] RegionalCqqrlqmZVMDJNFRSO1635-39-32 02:24:00 Test Item Value Reference Range Interpretation Comments Lymphocytes # (test code = Lymphocytes 2.3 1.0-5.5 #) [facility] RegionalZprgwpbLCNARKTEUF5472-50-40 02:24:00 Test Item Value Reference Range Interpretation Comments RBC Morph (test code = Normal (11/18/16 8:24 RBC Morph) PM) [facility] RegionalClhxardWTTRMJWMIP3926-42-76 02:24:00 Test Item Value Reference Range Interpretation Comments Plt Morph (test code = Normal (11/18/16 8:24 Plt Morph) PM) [facility] RegionalHikidhrSAEDRXAWQZ0930-25-71 02:24:00 Test Item Value Reference Range Interpretation Comments Hgb (test code = Hgb) 15.2 14.0-18.0 [facility] RegionalDqaxsajVMYTHWIQLN4385-09-07 02:24:00 Test Item Value Reference Range Interpretation Comments WBC (test code = WBC) 11.3 3.7-10.4 [facility] RegionalJkfxhfjLFLXORITHM8811-76-35 02:24:00 Test Item Value Reference Range Interpretation Comments Hct (test code = Hct) 43.2 42.0-54.0 [facility] RegionalSjgvfouEVKIRCRLOQ0339-16-81 02:24:00 Test Item Value Reference Range Interpretation Comments MCHC (test code = MCHC) 35.1 32.0-36.0 [facility] RegionalDayzuctPFTFHRVZJH7093-52-34 02:24:00 Test Item Value Reference Range Interpretation Comments RBC (test code = RBC) 4.57 4.70-6.10 [facility] RegionalAzswqdhKNFAXLZSJM3682-95-39 02:24:00 Test Item Value Reference Range Interpretation Comments MCV (test code = MCV) 94.6 80.0-94.0 [facility]BgwatduAFXKMHQJKE7955-72-19 02:24:00 Test Item Value Reference Range Interpretation Comments RDW (test code = RDW) 12.5 11.5-14.5 [facility] CenterLxmgcmjREJSUYZBWI7418-19-76 02:24:00 Test Item Value Reference Range Interpretation Comments MCH (test code = MCH) 33.2 pg 27.0-31.0 [facility]UsswxxqFASFHZPZPF5468-07-61 02:24:00 Test Item Value Reference Range Interpretation Comments MPV (test code = MPV) 6.6 7.4-10.4 [facility] CenterWvodlsbHKXFWFYTLL3634-64-47 02:24:00 Test Item Value Reference Range Interpretation Comments Platelet (test code = Platelet) 231 133-450 [facility] CenterFxkmuzmSHKJIBXXDE4590-32-29 02:24:00 Test Item Value Reference Range Interpretation Comments PT (test code = PT) 13.1 s 12.0-14.7 [facility] HospitalQrcuqalYJPVZRBFER7900-90-18 02:24:00 Test Item Value Reference Range Interpretation Comments INR (test code = INR) 0.97 0.85-1.17 [facility] CenterBhswmoyXWOSVKAHDJ3980-62-11 02:24:00 Test Item Value Reference Range Interpretation Comments PTT (test code = PTT) 27.1 s 22.9-35.8 [facility] [employer] WKNCLYT2167-25-28 02:24:00 Test Item Value Reference Range Interpretation Comments ABO/Rh (test code = ABO/Rh) O NEG [facility] [employer] [id number] 02:24:00 Test Item Value Reference Range Interpretation Comments Antibody Scrn (test Negative (11/18/16 8:24 code = Antibody Scrn) PM) [facility]Test[facility] [id number] 02:24:00 Test Item Value Reference Range Interpretation Comments U Cocaine Scr (test Positive *ABN*(11/18/16 code = U Cocaine Scr) 8:24 PM) [facility] CenterVeratect [id number] 02:24:00 Test Item Value Reference Range Interpretation Comments U Benzodia Scr (test Negative *NA*(11/18/16 code = U Benzodia Scr) 8:24 PM) [facility] EIYPGR9823-18-36 02:24:00 Test Item Value Reference Range Interpretation Comments U Amph Scr (test code Negative *NA*(11/18/16 = U Amph Scr) 8:24 PM) [facility] [id number] 02:24:00 Test Item Value Reference Range Interpretation Comments U Opiate Scr (test Positive *ABN*(11/18/16 code = U Opiate Scr) 8:24 PM) [facility] [id number] 02:24:00 Test Item Value Reference Range Interpretation Comments U Cannab Scr (test Negative *NA*(11/18/16 code = U Cannab Scr) 8:24 PM) [facility] [id number] 02:24:00 Test Item Value Reference Range Interpretation Comments U Ysabel Scr (test code Negative *NA*(11/18/16 = U Ysabel Scr) 8:24 PM) [facility] [id number] 02:24:00 Test Item Value Reference Range Interpretation Comments U Phencyc Scr (test Negative *NA*(11/18/16 code = U Phencyc Scr) 8:24 PM) [facility]DR[facility] [id number] 02:24:00 Test Item Value Reference Range Interpretation Comments UDS Note (test code = See Note (11/18/16 8:24 UDS Note) PM) [facility]DR[facility] [id number] 02:24:00 Test Item Value Reference Range Interpretation Comments U Propoxyph Scr (test Negative *NA*(11/18/16 code = U Propoxyph Scr) 8:24 PM) [facility]DR[facility] [id number] 02:24:00 Test Item Value Reference Range Interpretation Comments U Methadone Scr (test Negative *NA*(11/18/16 code = U Methadone Scr) 8:24 PM) [facility] CenterJsvtgjqFMHROIEPIG4585-34-61 02:24:00 Test Item Value Reference Range Interpretation Comments Monocytes # (test code 0.7 See_Comment [Aut omated message] The = Monocytes #) system which generated this result tra nsmitted reference range : <=0.8. The reference r natasha was not used to int erpret this result as normal/abnormal . [facility] CenterTlaxbxjDADEWZFVIC3842-17-46 02:24:00 Test Item Value Reference Range Interpretation Comments Basophils # (test code 0.1 See_Comment [Aut omated message] The = Basophils #) system which generated this result tra nsmitted reference range : <=0.2. The reference r natasha was not used to int erpret this result as normal/abnormal . [facility] RegionalAizeorgPEKXLIVZVT5107-90-38 02:24:00 Test Item Value Reference Range Interpretation Comments Eosinophils # (test code 0.1 See_Comment [A utomated message] The = Eosinophils #) system whic h generated this result tra nsmitted reference range : <=0.5. The reference r natasha was not used to int erpret this result as normal/abnormal . [facility] RegionalVuwbakzFUUFQBGGOJ5884-64-31 02:24:00 Test Item Value Reference Range Interpretation Comments Segs (test code = Segs) 72.1 45.0-75.0 [facility] RegionalRhprbhrLCUNERRADI0067-42-98 02:24:00 Test Item Value Reference Range Interpretation Comments Lymphocytes (test code = Lymphocytes) 20.2 20.0-40.0 [facility] RegionalBnjobdoHRMGUSDTVW2247-40-24 02:24:00 Test Item Value Reference Range Interpretation Comments Monocytes (test code = Monocytes) 6.1 2.0-12.0 [facility] RegionalTpvciyxCFDTTLDPBW6649-45-86 02:24:00 Test Item Value Reference Range Interpretation Comments Segs-Bands # (test code = Segs-Bands #) 8.2 1.5-8.1 [facility] RegionalJuywkgmUJEMBJVIVF4863-36-46 02:24:00 Test Item Value Reference Range Interpretation Comments Eosinophils (test code = 0.9 See_Comment [A utomated message] The Eosinophils) system which ge nerated this result tra nsmitted reference range : <=4.0. The reference r natasha was not used to int erpret this result as normal/abnormal . [facility] RegionalCriolzgQFJCCRFTKE7169-14-88 02:24:00 Test Item Value Reference Range Interpretation Comments Basophils (test code = 0.7 See_Comment [Aut omated message] The Basophils) system which ge nerated this result tra nsmitted reference range : <=1.0. The reference r natasha was not used to int erpret this result as normal/abnormal . [facility] RegionalZbbijmaENSUOOOSTU2367-73-74 02:24:00 Test Item Value Reference Range Interpretation Comments Lymphocytes # (test code = Lymphocytes 2.3 1.0-5.5 #) [facility] RegionalYofsksrXZZMXSBUPF0351-74-64 02:24:00 Test Item Value Reference Range Interpretation Comments RBC Morph (test code = Normal (11/18/16 8:24 RBC Morph) PM) [facility] RegionalNqupmjvTZRXRZTUVC2460-31-52 02:24:00 Test Item Value Reference Range Interpretation Comments Plt Morph (test code = Normal (11/18/16 8:24 Plt Morph) PM) [facility] RegionalBajamzpTNREWNKWSD6804-24-92 02:24:00 Test Item Value Reference Range Interpretation Comments Hgb (test code = Hgb) 15.2 14.0-18.0 [facility] RegionalIozdiuxZMCZZIMBRK1985-84-82 02:24:00 Test Item Value Reference Range Interpretation Comments WBC (test code = WBC) 11.3 3.7-10.4 [facility] RegionalRozgpuhJKXCLHYMFF6122-37-52 02:24:00 Test Item Value Reference Range Interpretation Comments Hct (test code = Hct) 43.2 42.0-54.0 [facility] RegionalVljtjpxKZLSFOOYFX3809-02-42 02:24:00 Test Item Value Reference Range Interpretation Comments MCHC (test code = MCHC) 35.1 32.0-36.0 [facility] RegionalFkppxgtNRZUISSYHI5902-51-95 02:24:00 Test Item Value Reference Range Interpretation Comments RBC (test code = RBC) 4.57 4.70-6.10 [facility] RegionalPllhkbzFUGUHPCVYF3839-96-22 02:24:00 Test Item Value Reference Range Interpretation Comments MCV (test code = MCV) 94.6 80.0-94.0 [facility] RegionalVchdjwiERMYEAZTGZ5242-23-72 02:24:00 Test Item Value Reference Range Interpretation Comments RDW (test code = RDW) 12.5 11.5-14.5 [facility] RegionalTbmojhfSBDMJQNBBJ3665-26-59 02:24:00 Test Item Value Reference Range Interpretation Comments MCH (test code = MCH) 33.2 pg 27.0-31.0 [facility] RegionalIyudtbbVZTJNGWEDO6316-96-03 02:24:00 Test Item Value Reference Range Interpretation Comments MPV (test code = MPV) 6.6 7.4-10.4 [facility] RegionalZyekjzpQNMSSOUQZV3796-18-15 02:24:00 Test Item Value Reference Range Interpretation Comments Platelet (test code = Platelet) 231 133-450 [facility] RegionalEcltwnwGMNHSZNTII6459-11-99 02:24:00 Test Item Value Reference Range Interpretation Comments PT (test code = PT) 13.1 s 12.0-14.7 [facility] PwypiipWQTFJBNHZS9686-69-45 02:24:00 Test Item Value Reference Range Interpretation Comments INR (test code = INR) 0.97 0.85-1.17 [facility] HospitalAdzybnwROFWJWRZIZ9963-29-06 02:24:00 Test Item Value Reference Range Interpretation Comments PTT (test code = PTT) 27.1 s 22.9-35.8 [facility] [employer] [id number] 02:24:00 Test Item Value Reference Range Interpretation Comments ABO/Rh (test code = ABO/Rh) O NEG [facility] [employer] [id number] 02:24:00 Test Item Value Reference Range Interpretation Comments Antibody Scrn (test Negative (11/18/16 8:24 code = Antibody Scrn) PM) [facility]Test[facility] [id number] 02:24:00 Test Item Value Reference Range Interpretation Comments U Cocaine Scr (test Positive *ABN*(11/18/16 code = U Cocaine Scr) 8:24 PM) [facility] [employer]2017-02-19 02:24:00 Test Item Value Reference Range Interpretation Comments U Benzodia Scr (test Negative *NA*(11/18/16 code = U Benzodia Scr) 8:24 PM) [facility] [employer] [id number] 02:24:00 Test Item Value Reference Range Interpretation Comments U Amph Scr (test code Negative *NA*(11/18/16 = U Amph Scr) 8:24 PM) [facility] [employer] [id number] 02:24:00 Test Item Value Reference Range Interpretation Comments U Opiate Scr (test Positive *ABN*(11/18/16 code = U Opiate Scr) 8:24 PM) [facility] [employer]2017-02-19 02:24:00 Test Item Value Reference Range Interpretation Comments U Cannab Scr (test Negative *NA*(11/18/16 code = U Cannab Scr) 8:24 PM) [facility]Test[facility] [id number] 02:24:00 Test Item Value Reference Range Interpretation Comments U Ysabel Scr (test code Negative *NA*(11/18/16 = U Ysabel Scr) 8:24 PM) [facility] KMBTZW1525-03-03 02:24:00 Test Item Value Reference Range Interpretation Comments U Phencyc Scr (test Negative *NA*(11/18/16 code = U Phencyc Scr) 8:24 PM) [facility]DR[facility] [id number] 02:24:00 Test Item Value Reference Range Interpretation Comments UDS Note (test code = See Note (11/18/16 8:24 UDS Note) PM) [facility]DR[facility] [id number] 02:24:00 Test Item Value Reference Range Interpretation Comments U Propoxyph Scr (test Negative *NA*(11/18/16 code = U Propoxyph Scr) 8:24 PM) [facility] [id number] 02:24:00 Test Item Value Reference Range Interpretation Comments U Methadone Scr (test Negative *NA*(11/18/16 code = U Methadone Scr) 8:24 PM) [facility] RegionalVdcwuvpVMKTLTAQNT5999-32-50 02:24:00 Test Item Value Reference Range Interpretation Comments Monocytes # (test code 0.7 See_Comment [Aut omated message] The = Monocytes #) system which generated this result tra nsmitted reference range : <=0.8. The reference r natasha was not used to int erpret this result as normal/abnormal . [facility] RegionalZznusupRKBLSXYTCP0960-15-32 02:24:00 Test Item Value Reference Range Interpretation Comments Basophils # (test code 0.1 See_Comment [Aut omated message] The = Basophils #) system which generated this result tra nsmitted reference range : <=0.2. The reference r natasha was not used to int erpret this result as normal/abnormal . [facility] RegionalElkqwwrBWCWPZPRXX9462-26-22 02:24:00 Test Item Value Reference Range Interpretation Comments Eosinophils # (test code 0.1 See_Comment [A utomated message] The = Eosinophils #) system whic h generated this result tra nsmitted reference range : <=0.5. The reference r natasha was not used to int erpret this result as normal/abnormal . [facility] RegionalZqghidmAUQPTTCTGY1962-00-05 02:24:00 Test Item Value Reference Range Interpretation Comments Segs (test code = Segs) 72.1 45.0-75.0 [facility] RegionalPtazbxhDUICUEERPH8586-93-17 02:24:00 Test Item Value Reference Range Interpretation Comments Lymphocytes (test code = Lymphocytes) 20.2 20.0-40.0 [facility] RegionalRjisfvvDOSCWEDPTJ1755-49-98 02:24:00 Test Item Value Reference Range Interpretation Comments Monocytes (test code = Monocytes) 6.1 2.0-12.0 [facility] RegionalYobdwilZPPZGMIZLL6456-15-75 02:24:00 Test Item Value Reference Range Interpretation Comments Segs-Bands # (test code = Segs-Bands #) 8.2 1.5-8.1 [facility] RegionalBdintofFKNGECFXHP4957-66-30 02:24:00 Test Item Value Reference Range Interpretation Comments Eosinophils (test code = 0.9 See_Comment [A utomated message] The Eosinophils) system which ge nerated this result tra nsmitted reference range : <=4.0. The reference r natasha was not used to int erpret this result as normal/abnormal . [facility] RegionalGorwdqxWCYOUPKMKB5116-66-57 02:24:00 Test Item Value Reference Range Interpretation Comments Basophils (test code = 0.7 See_Comment [Aut omated message] The Basophils) system which ge nerated this result tra nsmitted reference range : <=1.0. The reference r natasha was not used to int erpret this result as normal/abnormal . [facility] RegionalCcyztznSRQOVHTZOW0032-46-61 02:24:00 Test Item Value Reference Range Interpretation Comments Lymphocytes # (test code = Lymphocytes 2.3 1.0-5.5 #) [facility] RegionalLysduebORHRAFERSN4217-14-52 02:24:00 Test Item Value Reference Range Interpretation Comments RBC Morph (test code = Normal (11/18/16 8:24 RBC Morph) PM) [facility] RegionalCrczcapIZGNESJVOR2342-16-61 02:24:00 Test Item Value Reference Range Interpretation Comments Plt Morph (test code = Normal (11/18/16 8:24 Plt Morph) PM) [facility] RegionalJqdrbweOESMLDRLBJ4058-99-44 02:24:00 Test Item Value Reference Range Interpretation Comments Hgb (test code = Hgb) 15.2 14.0-18.0 [facility] RegionalDpawaxnVUCGNSIDEV7824-60-06 02:24:00 Test Item Value Reference Range Interpretation Comments WBC (test code = WBC) 11.3 3.7-10.4 [facility] RegionalJpgxxfvNRCIAERAWJ5202-92-81 02:24:00 Test Item Value Reference Range Interpretation Comments Hct (test code = Hct) 43.2 42.0-54.0 [facility] RegionalOazklzmMICESVREKD5596-65-99 02:24:00 Test Item Value Reference Range Interpretation Comments MCHC (test code = MCHC) 35.1 32.0-36.0 [facility] RegionalVhqkbcqNDINXDQHRN1248-86-97 02:24:00 Test Item Value Reference Range Interpretation Comments RBC (test code = RBC) 4.57 4.70-6.10 [facility] RegionalVyaflafFCOJDHHCVC0464-98-17 02:24:00 Test Item Value Reference Range Interpretation Comments MCV (test code = MCV) 94.6 80.0-94.0 [facility] RegionalFxtesufSXSOOGMMPK9069-35-27 02:24:00 Test Item Value Reference Range Interpretation Comments RDW (test code = RDW) 12.5 11.5-14.5 [facility] RegionalPygvhryPAKEJYSEDM1635-02-14 02:24:00 Test Item Value Reference Range Interpretation Comments MCH (test code = MCH) 33.2 pg 27.0-31.0 [facility] RegionalLvuxnhzGAXTWBIUVI8749-18-77 02:24:00 Test Item Value Reference Range Interpretation Comments MPV (test code = MPV) 6.6 7.4-10.4 [facility] RegionalHrzjvysAKPZDSDENX5460-46-09 02:24:00 Test Item Value Reference Range Interpretation Comments Platelet (test code = Platelet) 231 133-450 [facility] RegionalQpcoywvNKRQTTXSOF4417-61-88 02:24:00 Test Item Value Reference Range Interpretation Comments PT (test code = PT) 13.1 s 12.0-14.7 [facility] RegionalTsmhjahQHOWVISBYW7259-80-73 02:24:00 Test Item Value Reference Range Interpretation Comments INR (test code = INR) 0.97 0.85-1.17 [facility] RegionalOhzjtgkJTUMDHBJWM3180-24-39 02:24:00 Test Item Value Reference Range Interpretation Comments PTT (test code = PTT) 27.1 s 22.9-35.8 [facility] YFBROWQ4360-75-88 02:24:00 Test Item Value Reference Range Interpretation Comments ABO/Rh (test code = ABO/Rh) O NEG [facility] [employer] RMBWKZK0660-19-08 02:24:00 Test Item Value Reference Range Interpretation Comments Antibody Scrn (test Negative (11/18/16 8:24 code = Antibody Scrn) PM) [facility] [id number] 02:24:00 Test Item Value Reference Range Interpretation Comments U Cocaine Scr (test Positive *ABN*(11/18/16 code = U Cocaine Scr) 8:24 PM) [facility] [id number] 02:24:00 Test Item Value Reference Range Interpretation Comments U Benzodia Scr (test Negative *NA*(11/18/16 code = U Benzodia Scr) 8:24 PM) [facility] SPUZHK3688-57-74 02:24:00 Test Item Value Reference Range Interpretation Comments U Amph Scr (test code Negative *NA*(11/18/16 = U Amph Scr) 8:24 PM) [facility] [id number] 02:24:00 Test Item Value Reference Range Interpretation Comments U Opiate Scr (test Positive *ABN*(11/18/16 code = U Opiate Scr) 8:24 PM) [facility] NILJPU7524-30-43 02:24:00 Test Item Value Reference Range Interpretation Comments U Cannab Scr (test Negative *NA*(11/18/16 code = U Cannab Scr) 8:24 PM) [facility]annDR[facility] KEPMUN0070-14-03 02:24:00 Test Item Value Reference Range Interpretation Comments U Ysabel Scr (test code Negative *NA*(11/18/16 = U Ysabel Scr) 8:24 PM) [facility]annDR[facility] SKIJEG2342-68-27 02:24:00 Test Item Value Reference Range Interpretation Comments U Phencyc Scr (test Negative *NA*(11/18/16 code = U Phencyc Scr) 8:24 PM) [facility] AJHPDO9875-35-72 02:24:00 Test Item Value Reference Range Interpretation Comments UDS Note (test code = See Note (11/18/16 8:24 UDS Note) PM) [facility] ZZDEYQ0348-17-17 02:24:00 Test Item Value Reference Range Interpretation Comments U Propoxyph Scr (test Negative *NA*(11/18/16 code = U Propoxyph Scr) 8:24 PM) [facility] ULHFLQ6343-04-36 02:24:00 Test Item Value Reference Range Interpretation Comments U Methadone Scr (test Negative *NA*(11/18/16 code = U Methadone Scr) 8:24 PM) [facility] RegionalKdcfmqmEZBGEXHJLM7048-09-54 02:24:00 Test Item Value Reference Range Interpretation Comments Monocytes # (test code 0.7 See_Comment [Aut omated message] The = Monocytes #) system which generated this result tra nsmitted reference range : <=0.8. The reference r natasha was not used to int erpret this result as normal/abnormal . [facility] RegionalWvleyeeQBUQOEISNS0642-44-01 02:24:00 Test Item Value Reference Range Interpretation Comments Basophils # (test code 0.1 See_Comment [Aut omated message] The = Basophils #) system which generated this result tra nsmitted reference range : <=0.2. The reference r natsaha was not used to int erpret this result as normal/abnormal . [facility] RegionalMbzgxaeZTWYAKFYQW7788-11-50 02:24:00 Test Item Value Reference Range Interpretation Comments Eosinophils # (test code 0.1 See_Comment [A utomated message] The = Eosinophils #) system whic h generated this result tra nsmitted reference range : <=0.5. The reference r natasha was not used to int erpret this result as normal/abnormal . [facility] RegionalToriyyeNPVYWWKNEJ5336-97-50 02:24:00 Test Item Value Reference Range Interpretation Comments Segs (test code = Segs) 72.1 45.0-75.0 [facility] RegionalVuegbpbHCYCMWUTCD5562-26-00 02:24:00 Test Item Value Reference Range Interpretation Comments Lymphocytes (test code = Lymphocytes) 20.2 20.0-40.0 [facility] RegionalGwgcjikZJBSZXQLGN5205-45-11 02:24:00 Test Item Value Reference Range Interpretation Comments Monocytes (test code = Monocytes) 6.1 2.0-12.0 [facility] RegionalLvgpaomSCGBIKKQLH1744-47-49 02:24:00 Test Item Value Reference Range Interpretation Comments Segs-Bands # (test code = Segs-Bands #) 8.2 1.5-8.1 [facility] RegionalGnljyppLJYBHIOWIJ9908-29-01 02:24:00 Test Item Value Reference Range Interpretation Comments Eosinophils (test code = 0.9 See_Comment [A utomated message] The Eosinophils) system which ge nerated this result tra nsmitted reference range : <=4.0. The reference r natasha was not used to int erpret this result as normal/abnormal . [facility] RegionalDyjcpdgUCRZOEGJCY3057-41-97 02:24:00 Test Item Value Reference Range Interpretation Comments Basophils (test code = 0.7 See_Comment [Aut omated message] The Basophils) system which ge nerated this result tra nsmitted reference range : <=1.0. The reference r natasha was not used to int erpret this result as normal/abnormal . [facility] RegionalMlevmnzHZDHCKXTGR6426-82-18 02:24:00 Test Item Value Reference Range Interpretation Comments Lymphocytes # (test code = Lymphocytes 2.3 1.0-5.5 #) [facility] RegionalZayjahbKNPXHIZPDL3924-52-64 02:24:00 Test Item Value Reference Range Interpretation Comments RBC Morph (test code = Normal (11/18/16 8:24 RBC Morph) PM) [facility] RegionalWjoxdntSXMFLTLJLH8331-88-52 02:24:00 Test Item Value Reference Range Interpretation Comments Plt Morph (test code = Normal (11/18/16 8:24 Plt Morph) PM) [facility] RegionalLmiblxrKSJMIKLDYY5025-24-47 02:24:00 Test Item Value Reference Range Interpretation Comments Hgb (test code = Hgb) 15.2 14.0-18.0 [facility] RegionalRfwpttuZYTLLJXWID9142-29-99 02:24:00 Test Item Value Reference Range Interpretation Comments WBC (test code = WBC) 11.3 3.7-10.4 [facility] RegionalPgrcydlMTLUSCERZS5750-79-80 02:24:00 Test Item Value Reference Range Interpretation Comments Hct (test code = Hct) 43.2 42.0-54.0 [facility] RegionalLiljuxeGLNQPXSVTY8187-81-01 02:24:00 Test Item Value Reference Range Interpretation Comments MCHC (test code = MCHC) 35.1 32.0-36.0 [facility] RegionalIitwjzaZYUGUPSHHR5518-68-08 02:24:00 Test Item Value Reference Range Interpretation Comments RBC (test code = RBC) 4.57 4.70-6.10 [facility] RegionalIlyfirjBZAELMHSAX8881-24-28 02:24:00 Test Item Value Reference Range Interpretation Comments MCV (test code = MCV) 94.6 80.0-94.0 [facility] RegionalLfxkxcpNHBPWJIFFC0533-63-00 02:24:00 Test Item Value Reference Range Interpretation Comments RDW (test code = RDW) 12.5 11.5-14.5 [facility] CenterXfoxiopECIDFFJDWY4557-05-04 02:24:00 Test Item Value Reference Range Interpretation Comments MCH (test code = MCH) 33.2 pg 27.0-31.0 [facility] CenterD[id number] 02:24:00 Test Item Value Reference Range Interpretation Comments MPV (test code = MPV) 6.6 7.4-10.4 [facility] CenterZbgoecwLGQLESBKPE1993-12-83 02:24:00 Test Item Value Reference Range Interpretation Comments Platelet (test code = Platelet) 231 133-450 [facility] CenterVlosbutKVQLHOYTTZ7208-14-51 02:24:00 Test Item Value Reference Range Interpretation Comments PT (test code = PT) 13.1 s 12.0-14.7 [facility] CenterUthxwgxFLUTPVFZBS3709-47-60 02:24:00 Test Item Value Reference Range Interpretation Comments INR (test code = INR) 0.97 0.85-1.17 [facility] CenterJohwsoeFOAOLULQPL8429-84-99 02:24:00 Test Item Value Reference Range Interpretation Comments PTT (test code = PTT) 27.1 s 22.9-35.8 [facility] [employer] [id number] 02:24:00 Test Item Value Reference Range Interpretation Comments ABO/Rh (test code = ABO/Rh) O NEG [facility] [employer] [id number] 02:24:00 Test Item Value Reference Range Interpretation Comments Antibody Scrn (test Negative (11/18/16 8:24 code = Antibody Scrn) PM) [facility] [id number] 02:24:00 Test Item Value Reference Range Interpretation Comments U Cocaine Scr (test Positive *ABN*(11/18/16 code = U Cocaine Scr) 8:24 PM) [facility] [id number] 02:24:00 Test Item Value Reference Range Interpretation Comments U Benzodia Scr (test Negative *NA*(11/18/16 code = U Benzodia Scr) 8:24 PM) [facility] [id number] 02:24:00 Test Item Value Reference Range Interpretation Comments U Amph Scr (test code Negative *NA*(11/18/16 = U Amph Scr) 8:24 PM) [facility]DR[facility] [id number] 02:24:00 Test Item Value Reference Range Interpretation Comments U Opiate Scr (test Positive *ABN*(11/18/16 code = U Opiate Scr) 8:24 PM) [facility] [id number] 02:24:00 Test Item Value Reference Range Interpretation Comments U Cannab Scr (test Negative *NA*(11/18/16 code = U Cannab Scr) 8:24 PM) [facility] [id number] 02:24:00 Test Item Value Reference Range Interpretation Comments U Ysabel Scr (test code Negative *NA*(11/18/16 = U Ysabel Scr) 8:24 PM) [facility] [id number] 02:24:00 Test Item Value Reference Range Interpretation Comments U Phencyc Scr (test Negative *NA*(11/18/16 code = U Phencyc Scr) 8:24 PM) [facility] [id number] 02:24:00 Test Item Value Reference Range Interpretation Comments UDS Note (test code = See Note (11/18/16 8:24 UDS Note) PM) [facility] [id number] 02:24:00 Test Item Value Reference Range Interpretation Comments U Propoxyph Scr (test Negative *NA*(11/18/16 code = U Propoxyph Scr) 8:24 PM) [facility] [id number] 02:24:00 Test Item Value Reference Range Interpretation Comments U Methadone Scr (test Negative *NA*(11/18/16 code = U Methadone Scr) 8:24 PM) [facility] CenterYveolbzPXQIEJWMVI4516-45-55 02:24:00 Test Item Value Reference Range Interpretation Comments Monocytes # (test code 0.7 See_Comment [Aut omated message] The = Monocytes #) system which generated this result tra nsmitted reference range : <=0.8. The reference r natasha was not used to int erpret this result as normal/abnormal . [facility] CenterIzjpprtYSUIAVLVTX9144-43-14 02:24:00 Test Item Value Reference Range Interpretation Comments Basophils # (test code 0.1 See_Comment [Aut omated message] The = Basophils #) system which generated this result tra nsmitted reference range : <=0.2. The reference r natasha was not used to int erpret this result as normal/abnormal . [facility] RegionalVzmargvBCLFCVRTKJ5408-75-59 02:24:00 Test Item Value Reference Range Interpretation Comments Eosinophils # (test code 0.1 See_Comment [A utomated message] The = Eosinophils #) system whic h generated this result tra nsmitted reference range : <=0.5. The reference r natasha was not used to int erpret this result as normal/abnormal . [facility] RegionalJxddbazYFDPUQKRHB0265-15-37 02:24:00 Test Item Value Reference Range Interpretation Comments Segs (test code = Segs) 72.1 45.0-75.0 [facility] RegionalLsutlyrLYTFSBQZRL1454-28-73 02:24:00 Test Item Value Reference Range Interpretation Comments Lymphocytes (test code = Lymphocytes) 20.2 20.0-40.0 [facility] RegionalZzkpcyoDMJSNVMPAZ8118-46-39 02:24:00 Test Item Value Reference Range Interpretation Comments Monocytes (test code = Monocytes) 6.1 2.0-12.0 [facility] RegionalZ[id number] 02:24:00 Test Item Value Reference Range Interpretation Comments Segs-Bands # (test code = Segs-Bands #) 8.2 1.5-8.1 [facility] RegionalWkvaipeDRMMXFMURM4515-69-67 02:24:00 Test Item Value Reference Range Interpretation Comments Eosinophils (test code = 0.9 See_Comment [A utomated message] The Eosinophils) system which ge nerated this result tra nsmitted reference range : <=4.0. The reference r natasha was not used to int erpret this result as normal/abnormal . [facility] RegionalGfijgtfJJIHDBRZLX3906-47-70 02:24:00 Test Item Value Reference Range Interpretation Comments Basophils (test code = 0.7 See_Comment [Aut omated message] The Basophils) system which ge nerated this result tra nsmitted reference range : <=1.0. The reference r natasha was not used to int erpret this result as normal/abnormal . [facility] RegionalUxohdacQCLTITXFPA4408-74-77 02:24:00 Test Item Value Reference Range Interpretation Comments Lymphocytes # (test code = Lymphocytes 2.3 1.0-5.5 #) [facility] RegionalSyhednwAQLXQCXSZC0204-86-58 02:24:00 Test Item Value Reference Range Interpretation Comments RBC Morph (test code = Normal (11/18/16 8:24 RBC Morph) PM) [facility] RegionalMojnxrhMUNVFUJQVV4009-90-36 02:24:00 Test Item Value Reference Range Interpretation Comments Plt Morph (test code = Normal (11/18/16 8:24 Plt Morph) PM) [facility] RegionalFfahyryWGUEIIUPKZ1096-53-51 02:24:00 Test Item Value Reference Range Interpretation Comments Hgb (test code = Hgb) 15.2 14.0-18.0 [facility] RegionalKcxfcpjHPEURSRPRF6334-78-50 02:24:00 Test Item Value Reference Range Interpretation Comments WBC (test code = WBC) 11.3 3.7-10.4 [facility] RegionalUlswtgfKQWWRRROQX4328-81-32 02:24:00 Test Item Value Reference Range Interpretation Comments Hct (test code = Hct) 43.2 42.0-54.0 [facility] RegionalIxjjdtqMJTAZRECCR7448-61-50 02:24:00 Test Item Value Reference Range Interpretation Comments MCHC (test code = MCHC) 35.1 32.0-36.0 [facility] RegionalHkzqriaWYQUFRHUUZ8998-48-03 02:24:00 Test Item Value Reference Range Interpretation Comments RBC (test code = RBC) 4.57 4.70-6.10 [facility] RegionalXhgazouVXJOQDYOCN7423-13-59 02:24:00 Test Item Value Reference Range Interpretation Comments MCV (test code = MCV) 94.6 80.0-94.0 [facility] RegionalMknmrtoZGEQGAWJMS9340-24-46 02:24:00 Test Item Value Reference Range Interpretation Comments RDW (test code = RDW) 12.5 11.5-14.5 [facility] RegionalSudjyuyMFVIJSAGUL4468-84-54 02:24:00 Test Item Value Reference Range Interpretation Comments MCH (test code = MCH) 33.2 pg 27.0-31.0 [facility] RegionalXvsfbjiDLHJXDZAIG6372-43-15 02:24:00 Test Item Value Reference Range Interpretation Comments MPV (test code = MPV) 6.6 7.4-10.4 [facility] RegionalVxrsixfQLLQMCCRHT8525-93-38 02:24:00 Test Item Value Reference Range Interpretation Comments Platelet (test code = Platelet) 231 133-450 [facility] RegionalFohwnwwQAOIXIGRKE1250-21-22 02:24:00 Test Item Value Reference Range Interpretation Comments PT (test code = PT) 13.1 s 12.0-14.7 [facility] Region[id number] 02:24:00 Test Item Value Reference Range Interpretation Comments INR (test code = INR) 0.97 0.85-1.17 [facility] CenterHgctbkwVXAVEJNOIQ0420-88-76 02:24:00 Test Item Value Reference Range Interpretation Comments PTT (test code = PTT) 27.1 s 22.9-35.8 [facility] [id number] 02:24:00 Test Item Value Reference Range Interpretation Comments ABO/Rh (test code = ABO/Rh) O NEG [facility] [employer] [id number] 02:24:00 Test Item Value Reference Range Interpretation Comments Antibody Scrn (test Negative (11/18/16 8:24 code = Antibody Scrn) PM) [facility] [id number] 02:24:00 Test Item Value Reference Range Interpretation Comments U Cocaine Scr (test Positive *ABN*(11/18/16 code = U Cocaine Scr) 8:24 PM) [facility] [id number] 02:24:00 Test Item Value Reference Range Interpretation Comments U Benzodia Scr (test Negative *NA*(11/18/16 code = U Benzodia Scr) 8:24 PM) [facility] [id number] 02:24:00 Test Item Value Reference Range Interpretation Comments U Amph Scr (test code Negative *NA*(11/18/16 = U Amph Scr) 8:24 PM) [facility] [id number] 02:24:00 Test Item Value Reference Range Interpretation Comments U Opiate Scr (test Positive *ABN*(11/18/16 code = U Opiate Scr) 8:24 PM) [facility] [id number] 02:24:00 Test Item Value Reference Range Interpretation Comments U Cannab Scr (test Negative *NA*(11/18/16 code = U Cannab Scr) 8:24 PM) [facility] [id number] 02:24:00 Test Item Value Reference Range Interpretation Comments U Ysabel Scr (test code Negative *NA*(11/18/16 = U Ysabel Scr) 8:24 PM) [facility] [id number] 02:24:00 Test Item Value Reference Range Interpretation Comments U Phencyc Scr (test Negative *NA*(11/18/16 code = U Phencyc Scr) 8:24 PM) [facility]2017-02-11 08:16:00 Test Item Value Reference Range Interpretation Comments Lactic Acid Lvl (test code = Lactic 1.5 0.5-2.2 Acid Lvl) [facility]2017-02-11 08:16:00 Test Item Value Reference Range Interpretation Comments Lactic Acid Lvl (test code = Lactic 1.5 0.5-2.2 Acid Lvl) [facility]2017-02-11 08:16:00 Test Item Value Reference Range Interpretation Comments Lactic Acid Lvl (test code = Lactic 1.5 0.5-2.2 Acid Lvl) [place] [id number] 08:16:00 Test Item Value Reference Range Interpretation Comments Lactic Acid Lvl (test code = Lactic 1.5 0.5-2.2 Acid Lvl) [facility]2017-02-11 08:16:00 Test Item Value Reference Range Interpretation Comments Lactic Acid Lvl (test code = Lactic 1.5 0.5-2.2 Acid Lvl) [facility]2017-02-11 08:16:00 Test Item Value Reference Range Interpretation Comments Lactic Acid Lvl (test code = Lactic 1.5 0.5-2.2 Acid Lvl) [facility]2017-02-11 08:16:00 Test Item Value Reference Range Interpretation Comments Lactic Acid Lvl (test code = Lactic 1.5 0.5-2.2 Acid Lvl) [facility]2017-02-11 08:16:00 Test Item Value Reference Range Interpretation Comments Lactic Acid Lvl (test code = Lactic 1.5 0.5-2.2 Acid Lvl) [facility]2017-02-11 08:16:00 Test Item Value Reference Range Interpretation Comments Lactic Acid Lvl (test code = Lactic 1.5 0.5-2.2 Acid Lvl) [facility]2017-02-11 03:15:00 Test Item Value Reference Range Interpretation Comments Lactic Acid Lvl (test code = Lactic 2.9 0.5-2.2 Acid Lvl) [place] 857977-02-11 03:15:00 Test Item Value Reference Range Interpretation Comments Lactic Acid Lvl (test code = Lactic 2.9 0.5-2.2 Acid Lvl) [facility]2017-02-11 03:15:00 Test Item Value Reference Range Interpretation Comments Lactic Acid Lvl (test code = Lactic 2.9 0.5-2.2 Acid Lvl) [facility]2017-02-11 03:15:00 Test Item Value Reference Range Interpretation Comments Lactic Acid Lvl (test code = Lactic 2.9 0.5-2.2 Acid Lvl) [facility]2017-02-11 03:15:00 Test Item Value Reference Range Interpretation Comments Lactic Acid Lvl (test code = Lactic 2.9 0.5-2.2 Acid Lvl) [place] 857977-02-11 03:15:00 Test Item Value Reference Range Interpretation Comments Lactic Acid Lvl (test code = Lactic 2.9 0.5-2.2 Acid Lvl) [facility]2017-02-11 03:15:00 Test Item Value Reference Range Interpretation Comments Lactic Acid Lvl (test code = Lactic 2.9 0.5-2.2 Acid Lvl) [facility]2017-02-11 03:15:00 Test Item Value Reference Range Interpretation Comments Lactic Acid Lvl (test code = Lactic 2.9 0.5-2.2 Acid Lvl) [facility]2017-02-11 03:15:00 Test Item Value Reference Range Interpretation Comments Lactic Acid Lvl (test code = Lactic 2.9 0.5-2.2 Acid Lvl) [facility]2017-02-10 15:09:00 Test Item Value Reference Range Interpretation Comments Lactic Acid Lvl (test code = Lactic 3.9 0.5-2.2 Acid Lvl) [facility]2017-02-10 15:09:00 Test Item Value Reference Range Interpretation Comments Lactic Acid Lvl (test code = Lactic 3.9 0.5-2.2 Acid Lvl) [facility]2017-02-10 15:09:00 Test Item Value Reference Range Interpretation Comments Lactic Acid Lvl (test code = Lactic 3.9 0.5-2.2 Acid Lvl) [facility]2017-02-10 15:09:00 Test Item Value Reference Range Interpretation Comments Lactic Acid Lvl (test code = Lactic 3.9 0.5-2.2 Acid Lvl) [facility]2017-02-10 15:09:00 Test Item Value Reference Range Interpretation Comments Lactic Acid Lvl (test code = Lactic 3.9 0.5-2.2 Acid Lvl) [facility]2017-02-10 15:09:00 Test Item Value Reference Range Interpretation Comments Lactic Acid Lvl (test code = Lactic 3.9 0.5-2.2 Acid Lvl) [facility]2017-02-10 15:09:00 Test Item Value Reference Range Interpretation Comments Lactic Acid Lvl (test code = Lactic 3.9 0.5-2.2 Acid Lvl) [facility]2017-02-10 15:09:00 Test Item Value Reference Range Interpretation Comments Lactic Acid Lvl (test code = Lactic 3.9 0.5-2.2 Acid Lvl) [facility]2017-02-10 15:09:00 Test Item Value Reference Range Interpretation Comments Lactic Acid Lvl (test code = Lactic 3.9 0.5-2.2 Acid Lvl) [facility] RegionalTpqamdrAZSAWGTYBQ2486-26-30 08:26:00 Test Item Value Reference Range Interpretation Comments INR (test code = INR) 1.12 0.85-1.17 [facility] RegionalCxncaaxAUUAHHSNFL8860-25-32 08:26:00 Test Item Value Reference Range Interpretation Comments PT (test code = PT) 14.6 s 12.0-14.7 [facility] RegionalHvhbuuaXZYUZONJWQ3191-28-73 08:26:00 Test Item Value Reference Range Interpretation Comments INR (test code = INR) 1.12 0.85-1.17 [facility] RegionalDhnwhinCPRNQWYMOR4923-05-27 08:26:00 Test Item Value Reference Range Interpretation Comments PT (test code = PT) 14.6 s 12.0-14.7 [facility] RegionalVgfxeavJNQXMBLOEY2246-76-94 08:26:00 Test Item Value Reference Range Interpretation Comments INR (test code = INR) 1.12 0.85-1.17 [facility] RegionalBsumkuaNLFYQFIJXI4576-23-80 08:26:00 Test Item Value Reference Range Interpretation Comments PT (test code = PT) 14.6 s 12.0-14.[address]02-10 08:26:00 Test Item Value Reference Range Interpretation Comments INR (test code = INR) 1.12 0.85-1.17 [facility] RegionalYgqqvxhCJWAWNIXMB9625-06-47 08:26:00 Test Item Value Reference Range Interpretation Comments PT (test code = PT) 14.6 s 12.0-14.7 [facility] RegionalTkbdobjIYGRYZLWBN6455-43-26 08:26:00 Test Item Value Reference Range Interpretation Comments INR (test code = INR) 1.12 0.85-1.17 [facility] RegionalIiexsmuYEAZBRLNPO5185-06-47 08:26:00 Test Item Value Reference Range Interpretation Comments PT (test code = PT) 14.6 s 12.0-14.7 [facility] RegionalNznstvtYDGUEHYECH4953-04-38 08:26:00 Test Item Value Reference Range Interpretation Comments INR (test code = INR) 1.12 0.85-1.17 [facility] RegionalHhuhsmuTZGELLFIUK0780-47-78 08:26:00 Test Item Value Reference Range Interpretation Comments PT (test code = PT) 14.6 s 12.0-14.7 [facility] RegionalNsyaddnQARFFNWTXT2326-75-96 08:26:00 Test Item Value Reference Range Interpretation Comments INR (test code = INR) 1.12 0.85-1.17 [facility] RegionalNeaxbdyCCMGUZCVSB6716-78-99 08:26:00 Test Item Value Reference Range Interpretation Comments PT (test code = PT) 14.6 s 12.0-14.7 [facility] RegionalUvltjmmGDLLLBMQPL6067-41-02 08:26:00 Test Item Value Reference Range Interpretation Comments INR (test code = INR) 1.12 0.85-1.17 [facility] RegionalAjzrmhaVUNTNWPQRW6596-18-46 08:26:00 Test Item Value Reference Range Interpretation Comments PT (test code = PT) 14.6 s 12.0-14.7 [facility] RegionalPdcgrisAFMNGPZMTT5908-54-50 08:26:00 Test Item Value Reference Range Interpretation Comments INR (test code = INR) 1.12 0.85-1.17 [facility] RegionalAmxqtzrJTLBZCPEBS4168-94-27 08:26:00 Test Item Value Reference Range Interpretation Comments PT (test code = PT) 14.6 s 12.0-14.7 [facility]2017-02-10 07:15:02 Test Item Value Reference Range Interpretation Comments UA RBC (test code = 0-2 /HPF See_Comment [Automa sharri message] The UA RBC) system which ge nerated this result tra nsmitted reference range : <=2. The reference range was not used to interpr et this result as ahmet l/abnormal. [facility] AND [id number] 07:15:02 Test Item Value Reference Range Interpretation Comments UA WBC (test code = UA None Seen (11/10/16 1:15 WBC) AM) [facility] AND [id number] 07:15:02 Test Item Value Reference Range Interpretation Comments UA Sq Epi (test code = None Seen (11/10/16 1:15 UA Sq Epi) AM) [facility] AND [id number] 07:15:02 Test Item Value Reference Range Interpretation Comments UA Bacteria (test code = None Seen (11/10/16 UA Bacteria) 1:15 AM) [facility] AND [id number] 07:15:02 Test Item Value Reference Range Interpretation Comments UA Nitrite (test code Negative (11/10/16 1:15 = UA Nitrite) AM) [facility] AND [id number] 07:15:02 Test Item Value Reference Range Interpretation Comments UA Leuk Est (test Negative (11/10/16 1:15 code = UA Leuk Est) AM) [facility] AND [id number] 07:15:02 Test Item Value Reference Range Interpretation Comments UA Color (test code = Yellow *NA*(11/10/16 UA Color) 1:15 AM) [facility] AND [id number] 07:15:02 Test Item Value Reference Range Interpretation Comments UA pH (test code = UA pH) 5.5 1 5.0-8.0 [facility] AND [id number] 07:15:02 Test Item Value Reference Range Interpretation Comments UA Protein (test code Negative (11/10/16 1:15 = UA Protein) AM) [facility] AND [id number] 07:15:02 Test Item Value Reference Range Interpretation Comments UA Glucose (test code Negative (11/10/16 1:15 = UA Glucose) AM) [facility] AND [id number] 07:15:02 Test Item Value Reference Range Interpretation Comments UA Ketones (test code = UA Ketones) 15 mg/dL [facility] AND [id number] 07:15:02 Test Item Value Reference Range Interpretation Comments UA Bili (test code = Negative *NA*(11/10/16 UA Bili) 1:15 AM) [facility] AND [id number] 07:15:02 Test Item Value Reference Range Interpretation Comments UA Blood (test code = Negative (11/10/16 1:15 UA Blood) AM) [facility] AND [id number] 07:15:02 Test Item Value Reference Range Interpretation Comments UA Urobilinogen (test code = UA 0.2 0.1-1.0 Urobilinogen) [facility] AND [id number] 07:15:02 Test Item Value Reference Range Interpretation Comments UA Turbidity (test code = Clear (11/10/16 1:15 UA Turbidity) AM) [facility] AND [id number] 07:15:02 Test Item Value Reference Range Interpretation Comments UA Spec Grav (test code = UA Spec 1.047 1 Grav) [facility] AND [id number] 07:15:02 Test Item Value Reference Range Interpretation Comments UA RBC (test code = 0-2 /HPF See_Comment [Automa sharri message] The UA RBC) system which ge nerated this result tra nsmitted reference range : <=2. The reference range was not used to interpr et this result as ahmet l/abnormal. [facility] AND [id number] 07:15:02 Test Item Value Reference Range Interpretation Comments UA WBC (test code = UA None Seen (11/10/16 1:15 WBC) AM) [facility] AND [id number] 07:15:02 Test Item Value Reference Range Interpretation Comments UA Sq Epi (test code = None Seen (11/10/16 1:15 UA Sq Epi) AM) [facility] AND [id number] 07:15:02 Test Item Value Reference Range Interpretation Comments UA Bacteria (test code = None Seen (11/10/16 UA Bacteria) 1:15 AM) [facility] AND [id number] 07:15:02 Test Item Value Reference Range Interpretation Comments UA Nitrite (test code Negative (11/10/16 1:15 = UA Nitrite) AM) [facility] AND [id number] 07:15:02 Test Item Value Reference Range Interpretation Comments UA Leuk Est (test Negative (11/10/16 1:15 code = UA Leuk Est) AM) [facility] AND [id number] 07:15:02 Test Item Value Reference Range Interpretation Comments UA Color (test code = Yellow *NA*(11/10/16 UA Color) 1:15 AM) [facility] AND [id number] 07:15:02 Test Item Value Reference Range Interpretation Comments UA pH (test code = UA pH) 5.5 1 5.0-8.0 [facility] AND [id number] 07:15:02 Test Item Value Reference Range Interpretation Comments UA Protein (test code Negative (11/10/16 1:15 = UA Protein) AM) [facility] AND [id number] 07:15:02 Test Item Value Reference Range Interpretation Comments UA Glucose (test code Negative (11/10/16 1:15 = UA Glucose) AM) [facility] AND [id number] 07:15:02 Test Item Value Reference Range Interpretation Comments UA Ketones (test code = UA Ketones) 15 mg/dL [facility] AND [id number] 07:15:02 Test Item Value Reference Range Interpretation Comments UA Bili (test code = Negative *NA*(11/10/16 UA Bili) 1:15 AM) [facility] AND [id number] 07:15:02 Test Item Value Reference Range Interpretation Comments UA Blood (test code = Negative (11/10/16 1:15 UA Blood) AM) [facility] AND [id number] 07:15:02 Test Item Value Reference Range Interpretation Comments UA Urobilinogen (test code = UA 0.2 0.1-1.0 Urobilinogen) [facility] AND [id number] 07:15:02 Test Item Value Reference Range Interpretation Comments UA Turbidity (test code = Clear (11/10/16 1:15 UA Turbidity) AM) [facility] AND [id number] 07:15:02 Test Item Value Reference Range Interpretation Comments UA Spec Grav (test code = UA Spec 1.047 1 Grav) [facility] AND [id number] 07:15:02 Test Item Value Reference Range Interpretation Comments UA RBC (test code = 0-2 /HPF See_Comment [Automa sharri message] The UA RBC) system which ge nerated this result tra nsmitted reference range : <=2. The reference range was not used to interpr et this result as ahmet l/abnormal. Formerly [facility] AND [id number] 07:15:02 Test Item Value Reference Range Interpretation Comments UA WBC (test code = UA None Seen (11/10/16 1:15 WBC) AM) Formerly [facility] AND [id number] 07:15:02 Test Item Value Reference Range Interpretation Comments UA Sq Epi (test code = None Seen (11/10/16 1:15 UA Sq Epi) AM) Formerly [facility] AND [id number] 07:15:02 Test Item Value Reference Range Interpretation Comments UA Bacteria (test code = None Seen (11/10/16 UA Bacteria) 1:15 AM) Formerly [facility] AND [id number] 07:15:02 Test Item Value Reference Range Interpretation Comments UA Nitrite (test code Negative (11/10/16 1:15 = UA Nitrite) AM) Formerly [facility] AND [id number] 07:15:02 Test Item Value Reference Range Interpretation Comments UA Leuk Est (test Negative (11/10/16 1:15 code = UA Leuk Est) AM) Formerly [facility] AND [id number] 07:15:02 Test Item Value Reference Range Interpretation Comments UA Color (test code = Yellow *NA*(11/10/16 UA Color) 1:15 AM) Formerly [facility] AND [id number] 07:15:02 Test Item Value Reference Range Interpretation Comments UA pH (test code = UA pH) 5.5 1 5.0-8.0 Formerly [facility] AND [id number] 07:15:02 Test Item Value Reference Range Interpretation Comments UA Protein (test code Negative (11/10/16 1:15 = UA Protein) AM) Formerly [facility] AND [id number] 07:15:02 Test Item Value Reference Range Interpretation Comments UA Glucose (test code Negative (11/10/16 1:15 = UA Glucose) AM) [facility]ly [facility] AND [id number] 07:15:02 Test Item Value Reference Range Interpretation Comments UA Ketones (test code = UA Ketones) 15 mg/dL [facility] AND [id number] 07:15:02 Test Item Value Reference Range Interpretation Comments UA Bili (test code = Negative *NA*(11/10/16 UA Bili) 1:15 AM) Formerly [facility] AND [id number] 07:15:02 Test Item Value Reference Range Interpretation Comments UA Blood (test code = Negative (11/10/16 1:15 UA Blood) AM) Formerly [facility] AND [id number] 07:15:02 Test Item Value Reference Range Interpretation Comments UA Urobilinogen (test code = UA 0.2 0.1-1.0 Urobilinogen) Formerly [facility] AND [id number] 07:15:02 Test Item Value Reference Range Interpretation Comments UA Turbidity (test code = Clear (11/10/16 1:15 UA Turbidity) AM) Formerly [facility] AND [id number] 07:15:02 Test Item Value Reference Range Interpretation Comments UA Spec Grav (test code = UA Spec 1.047 1 Grav) Formerly [facility] AND [id number] 07:15:02 Test Item Value Reference Range Interpretation Comments UA RBC (test code = 0-2 /HPF See_Comment [Automa sharri message] The UA RBC) system which ge nerated this result tra nsmitted reference range : <=2. The reference range was not used to interpr et this result as ahmet l/abnormal. Formerly [facility] AND [id number] 07:15:02 Test Item Value Reference Range Interpretation Comments UA WBC (test code = UA None Seen (11/10/16 1:15 WBC) AM) Formerly [facility] AND [id number] 07:15:02 Test Item Value Reference Range Interpretation Comments UA Sq Epi (test code = None Seen (11/10/16 1:15 UA Sq Epi) AM) Formerly [facility] AND [id number] 07:15:02 Test Item Value Reference Range Interpretation Comments UA Bacteria (test code = None Seen (11/10/16 UA Bacteria) 1:15 AM) [facility]ly [facility] AND [id number] 07:15:02 Test Item Value Reference Range Interpretation Comments UA Nitrite (test code Negative (11/10/16 1:15 = UA Nitrite) AM) Formerly [facility] AND [id number] 07:15:02 Test Item Value Reference Range Interpretation Comments UA Leuk Est (test Negative (11/10/16 1:15 code = UA Leuk Est) AM) Formerly [facility] AND [id number] 07:15:02 Test Item Value Reference Range Interpretation Comments UA Color (test code = Yellow *NA*(11/10/16 UA Color) 1:15 AM) Formerly [facility] AND [id number] 07:15:02 Test Item Value Reference Range Interpretation Comments UA pH (test code = UA pH) 5.5 1 5.0-8.0 Formerly [facility] AND [id number] 07:15:02 Test Item Value Reference Range Interpretation Comments UA Protein (test code Negative (11/10/16 1:15 = UA Protein) AM) Formerly [facility] AND [id number] 07:15:02 Test Item Value Reference Range Interpretation Comments UA Glucose (test code Negative (11/10/16 1:15 = UA Glucose) AM) [facility]ly [facility] AND [id number] 07:15:02 Test Item Value Reference Range Interpretation Comments UA Ketones (test code = UA Ketones) 15 mg/dL [facility] AND [id number] 07:15:02 Test Item Value Reference Range Interpretation Comments UA Bili (test code = Negative *NA*(11/10/16 UA Bili) 1:15 AM) [facility]ly [facility] AND [id number] 07:15:02 Test Item Value Reference Range Interpretation Comments UA Blood (test code = Negative (11/10/16 1:15 UA Blood) AM) [facility] AND [id number] 07:15:02 Test Item Value Reference Range Interpretation Comments UA Urobilinogen (test code = UA 0.2 0.1-1.0 Urobilinogen) Formerly [facility] AND [id number] 07:15:02 Test Item Value Reference Range Interpretation Comments UA Turbidity (test code = Clear (11/10/16 1:15 UA Turbidity) AM) [facility] [id number] 07:15:02 Test Item Value Reference Range Interpretation Comments UA Spec Grav (test code = UA Spec 1.047 1 Grav) [facility] [id number] 07:15:02 Test Item Value Reference Range Interpretation Comments UA RBC (test code = 0-2 /HPF See_Comment [Automa sharri message] The UA RBC) system which ge nerated this result tra nsmitted reference range : <=2. The reference range was not used to interpr et this result as ahmet l/abnormal. [facility] [id number] 07:15:02 Test Item Value Reference Range Interpretation Comments UA WBC (test code = UA None Seen (11/10/16 1:15 WBC) AM) [facility] [id number] 07:15:02 Test Item Value Reference Range Interpretation Comments UA Sq Epi (test code = None Seen (11/10/16 1:15 UA Sq Epi) AM) [facility] [id number] 07:15:02 Test Item Value Reference Range Interpretation Comments UA Bacteria (test code = None Seen (11/10/16 UA Bacteria) 1:15 AM) [facility] [id number] 07:15:02 Test Item Value Reference Range Interpretation Comments UA Nitrite (test code Negative (11/10/16 1:15 = UA Nitrite) AM) [facility] [id number] 07:15:02 Test Item Value Reference Range Interpretation Comments UA Leuk Est (test Negative (11/10/16 1:15 code = UA Leuk Est) AM) [facility] [id number] 07:15:02 Test Item Value Reference Range Interpretation Comments UA Color (test code = Yellow *NA*(11/10/16 UA Color) 1:15 AM) [facility] [id number] 07:15:02 Test Item Value Reference Range Interpretation Comments UA pH (test code = UA pH) 5.5 1 5.0-8.0 [facility] [id number] 07:15:02 Test Item Value Reference Range Interpretation Comments UA Protein (test code Negative (11/10/16 1:15 = UA Protein) AM) [facility] [id number] 07:15:02 Test Item Value Reference Range Interpretation Comments UA Glucose (test code Negative (11/10/16 1:15 = UA Glucose) AM) [facility] AND [id number] 07:15:02 Test Item Value Reference Range Interpretation Comments UA Ketones (test code = UA Ketones) 15 mg/dL [facility] AND [id number] 07:15:02 Test Item Value Reference Range Interpretation Comments UA Bili (test code = Negative *NA*(11/10/16 UA Bili) 1:15 AM) [facility] AND [id number] 07:15:02 Test Item Value Reference Range Interpretation Comments UA Blood (test code = Negative (11/10/16 1:15 UA Blood) AM) [facility] AND [id number] 07:15:02 Test Item Value Reference Range Interpretation Comments UA Urobilinogen (test code = UA 0.2 0.1-1.0 Urobilinogen) [facility] AND [id number] 07:15:02 Test Item Value Reference Range Interpretation Comments UA Turbidity (test code = Clear (11/10/16 1:15 UA Turbidity) AM) [facility] AND [id number] 07:15:02 Test Item Value Reference Range Interpretation Comments UA Spec Grav (test code = UA Spec 1.047 1 Grav) [facility] AND [id number] 07:15:02 Test Item Value Reference Range Interpretation Comments UA RBC (test code = 0-2 /HPF See_Comment [Automa sharri message] The UA RBC) system which ge nerated this result tra nsmitted reference range : <=2. The reference range was not used to interpr et this result as ahmet l/abnormal. [facility] AND [id number] 07:15:02 Test Item Value Reference Range Interpretation Comments UA WBC (test code = UA None Seen (11/10/16 1:15 WBC) AM) [facility] AND [id number] 07:15:02 Test Item Value Reference Range Interpretation Comments UA Sq Epi (test code = None Seen (11/10/16 1:15 UA Sq Epi) AM) [facility] AND [id number] 07:15:02 Test Item Value Reference Range Interpretation Comments UA Bacteria (test code = None Seen (11/10/16 UA Bacteria) 1:15 AM) [facility] AND [id number] 07:15:02 Test Item Value Reference Range Interpretation Comments UA Nitrite (test code Negative (11/10/16 1:15 = UA Nitrite) AM) [facility] AND [id number] 07:15:02 Test Item Value Reference Range Interpretation Comments UA Leuk Est (test Negative (11/10/16 1:15 code = UA Leuk Est) AM) [facility] AND [id number] 07:15:02 Test Item Value Reference Range Interpretation Comments UA Color (test code = Yellow *NA*(11/10/16 UA Color) 1:15 AM) [facility] AND [id number] 07:15:02 Test Item Value Reference Range Interpretation Comments UA pH (test code = UA pH) 5.5 1 5.0-8.0 [facility] AND [id number] 07:15:02 Test Item Value Reference Range Interpretation Comments UA Protein (test code Negative (11/10/16 1:15 = UA Protein) AM) [facility] AND [id number] 07:15:02 Test Item Value Reference Range Interpretation Comments UA Glucose (test code Negative (11/10/16 1:15 = UA Glucose) AM) [facility] AND [id number] 07:15:02 Test Item Value Reference Range Interpretation Comments UA Ketones (test code = UA Ketones) 15 mg/dL [facility] AND [id number] 07:15:02 Test Item Value Reference Range Interpretation Comments UA Bili (test code = Negative *NA*(11/10/16 UA Bili) 1:15 AM) [facility] AND [id number] 07:15:02 Test Item Value Reference Range Interpretation Comments UA Blood (test code = Negative (11/10/16 1:15 UA Blood) AM) [facility] AND [id number] 07:15:02 Test Item Value Reference Range Interpretation Comments UA Urobilinogen (test code = UA 0.2 0.1-1.0 Urobilinogen) [facility] AND [id number] 07:15:02 Test Item Value Reference Range Interpretation Comments UA Turbidity (test code = Clear (11/10/16 1:15 UA Turbidity) AM) [facility] AND [id number] 07:15:02 Test Item Value Reference Range Interpretation Comments UA Spec Grav (test code = UA Spec 1.047 1 Grav) [facility] AND [id number] 07:15:02 Test Item Value Reference Range Interpretation Comments UA RBC (test code = 0-2 /HPF See_Comment [Automa sharri message] The UA RBC) system which ge nerated this result tra nsmitted reference range : <=2. The reference range was not used to interpr et this result as ahmet l/abnormal. [facility] AND [id number] 07:15:02 Test Item Value Reference Range Interpretation Comments UA WBC (test code = UA None Seen (11/10/16 1:15 WBC) AM) [facility] AND [id number] 07:15:02 Test Item Value Reference Range Interpretation Comments UA Sq Epi (test code = None Seen (11/10/16 1:15 UA Sq Epi) AM) [facility] AND [id number] 07:15:02 Test Item Value Reference Range Interpretation Comments UA Bacteria (test code = None Seen (11/10/16 UA Bacteria) 1:15 AM) [facility] AND [id number] 07:15:02 Test Item Value Reference Range Interpretation Comments UA Nitrite (test code Negative (11/10/16 1:15 = UA Nitrite) AM) [facility] AND [id number] 07:15:02 Test Item Value Reference Range Interpretation Comments UA Leuk Est (test Negative (11/10/16 1:15 code = UA Leuk Est) AM) [facility] AND [id number] 07:15:02 Test Item Value Reference Range Interpretation Comments UA Color (test code = Yellow *NA*(11/10/16 UA Color) 1:15 AM) [facility] AND [id number] 07:15:02 Test Item Value Reference Range Interpretation Comments UA pH (test code = UA pH) 5.5 1 5.0-8.0 [facility] AND [id number] 07:15:02 Test Item Value Reference Range Interpretation Comments UA Protein (test code Negative (11/10/16 1:15 = UA Protein) AM) [facility] AND [id number] 07:15:02 Test Item Value Reference Range Interpretation Comments UA Glucose (test code Negative (11/10/16 1:15 = UA Glucose) AM) [facility] AND [id number] 07:15:02 Test Item Value Reference Range Interpretation Comments UA Ketones (test code = UA Ketones) 15 mg/dL [facility] AND [id number] 07:15:02 Test Item Value Reference Range Interpretation Comments UA Bili (test code = Negative *NA*(11/10/16 UA Bili) 1:15 AM) [facility] AND [id number] 07:15:02 Test Item Value Reference Range Interpretation Comments UA Blood (test code = Negative (11/10/16 1:15 UA Blood) AM) [facility] AND [id number] 07:15:02 Test Item Value Reference Range Interpretation Comments UA Urobilinogen (test code = UA 0.2 0.1-1.0 Urobilinogen) [facility] AND [id number] 07:15:02 Test Item Value Reference Range Interpretation Comments UA Turbidity (test code = Clear (11/10/16 1:15 UA Turbidity) AM) [facility] AND [id number] 07:15:02 Test Item Value Reference Range Interpretation Comments UA Spec Grav (test code = UA Spec 1.047 1 Grav) [facility] AND [id number] 07:15:02 Test Item Value Reference Range Interpretation Comments UA RBC (test code = 0-2 /HPF See_Comment [Automa sharri message] The UA RBC) system which ge nerated this result tra nsmitted reference range : <=2. The reference range was not used to interpr et this result as ahmet l/abnormal. [facility] AND [id number] 07:15:02 Test Item Value Reference Range Interpretation Comments UA WBC (test code = UA None Seen (11/10/16 1:15 WBC) AM) [facility] AND [id number] 07:15:02 Test Item Value Reference Range Interpretation Comments UA Sq Epi (test code = None Seen (11/10/16 1:15 UA Sq Epi) AM) [facility] AND [id number] 07:15:02 Test Item Value Reference Range Interpretation Comments UA Bacteria (test code = None Seen (11/10/16 UA Bacteria) 1:15 AM) [facility] AND [id number] 07:15:02 Test Item Value Reference Range Interpretation Comments UA Nitrite (test code Negative (11/10/16 1:15 = UA Nitrite) AM) [facility] AND [id number] 07:15:02 Test Item Value Reference Range Interpretation Comments UA Leuk Est (test Negative (11/10/16 1:15 code = UA Leuk Est) AM) [facility] AND [id number] 07:15:02 Test Item Value Reference Range Interpretation Comments UA Color (test code = Yellow *NA*(11/10/16 UA Color) 1:15 AM) [facility] AND [id number] 07:15:02 Test Item Value Reference Range Interpretation Comments UA pH (test code = UA pH) 5.5 1 5.0-8.0 [facility] AND [id number] 07:15:02 Test Item Value Reference Range Interpretation Comments UA Protein (test code Negative (11/10/16 1:15 = UA Protein) AM) [facility] AND [id number] 07:15:02 Test Item Value Reference Range Interpretation Comments UA Glucose (test code Negative (11/10/16 1:15 = UA Glucose) AM) [facility] AND [id number] 07:15:02 Test Item Value Reference Range Interpretation Comments UA Ketones (test code = UA Ketones) 15 mg/dL [facility] AND [id number] 07:15:02 Test Item Value Reference Range Interpretation Comments UA Bili (test code = Negative *NA*(11/10/16 UA Bili) 1:15 AM) [facility] AND [id number] 07:15:02 Test Item Value Reference Range Interpretation Comments UA Blood (test code = Negative (11/10/16 1:15 UA Blood) AM) [facility] AND [id number] 07:15:02 Test Item Value Reference Range Interpretation Comments UA Urobilinogen (test code = UA 0.2 0.1-1.0 Urobilinogen) [facility] AND [id number] 07:15:02 Test Item Value Reference Range Interpretation Comments UA Turbidity (test code = Clear (11/10/16 1:15 UA Turbidity) AM) [facility] AND [id number] 07:15:02 Test Item Value Reference Range Interpretation Comments UA Spec Grav (test code = UA Spec 1.047 1 Grav) [facility] AND [id number] 07:15:02 Test Item Value Reference Range Interpretation Comments UA RBC (test code = 0-2 /HPF See_Comment [Automa sharri message] The UA RBC) system which ge nerated this result tra nsmitted reference range : <=2. The reference range was not used to interpr et this result as ahmet l/abnormal. [facility] AND [id number] 07:15:02 Test Item Value Reference Range Interpretation Comments UA WBC (test code = UA None Seen (11/10/16 1:15 WBC) AM) [facility] AND [id number] 07:15:02 Test Item Value Reference Range Interpretation Comments UA Sq Epi (test code = None Seen (11/10/16 1:15 UA Sq Epi) AM) [facility] AND [id number] 07:15:02 Test Item Value Reference Range Interpretation Comments UA Bacteria (test code = None Seen (11/10/16 UA Bacteria) 1:15 AM) [facility] AND [id number] 07:15:02 Test Item Value Reference Range Interpretation Comments UA Nitrite (test code Negative (11/10/16 1:15 = UA Nitrite) AM) [facility] AND [id number] 07:15:02 Test Item Value Reference Range Interpretation Comments UA Leuk Est (test Negative (11/10/16 1:15 code = UA Leuk Est) AM) [facility] AND [id number] 07:15:02 Test Item Value Reference Range Interpretation Comments UA Color (test code = Yellow *NA*(11/10/16 UA Color) 1:15 AM) [facility] AND [id number] 07:15:02 Test Item Value Reference Range Interpretation Comments UA pH (test code = UA pH) 5.5 1 5.0-8.0 [facility] [id number] 07:15:02 Test Item Value Reference Range Interpretation Comments UA Protein (test code Negative (11/10/16 1:15 = UA Protein) AM) [facility] [id number] 07:15:02 Test Item Value Reference Range Interpretation Comments UA Glucose (test code Negative (11/10/16 1:15 = UA Glucose) AM) [facility] [id number] 07:15:02 Test Item Value Reference Range Interpretation Comments UA Ketones (test code = UA Ketones) 15 mg/dL [facility] [id number] 07:15:02 Test Item Value Reference Range Interpretation Comments UA Bili (test code = Negative *NA*(11/10/16 UA Bili) 1:15 AM) [facility] [id number] 07:15:02 Test Item Value Reference Range Interpretation Comments UA Blood (test code = Negative (11/10/16 1:15 UA Blood) AM) [facility] [id number] 07:15:02 Test Item Value Reference Range Interpretation Comments UA Urobilinogen (test code = UA 0.2 0.1-1.0 Urobilinogen) [facility] [id number] 07:15:02 Test Item Value Reference Range Interpretation Comments UA Turbidity (test code = Clear (11/10/16 1:15 UA Turbidity) AM) [facility] [id number] 07:15:02 Test Item Value Reference Range Interpretation Comments UA Spec Grav (test code = UA Spec 1.047 1 Grav) [facility] [id number] 07:15:00 Test Item Value Reference Range Interpretation Comments UDS Note (test code = See Note (11/10/16 1:15 UDS Note) AM) [facility] [id number] 07:15:00 Test Item Value Reference Range Interpretation Comments U Opiate Scr (test Positive *ABN*(11/10/16 code = U Opiate Scr) 1:15 AM) [facility] [id number] 07:15:00 Test Item Value Reference Range Interpretation Comments U Phencyc Scr (test Negative *NA*(11/10/16 code = U Phencyc Scr) 1:15 AM) [facility] [id number] 07:15:00 Test Item Value Reference Range Interpretation Comments U Cannab Scr (test Negative *NA*(11/10/16 code = U Cannab Scr) 1:15 AM) [facility] [id number] 07:15:00 Test Item Value Reference Range Interpretation Comments U Cocaine Scr (test Positive *ABN*(11/10/16 code = U Cocaine Scr) 1:15 AM) [facility] [id number] 07:15:00 Test Item Value Reference Range Interpretation Comments U Ysabel Scr (test code Negative *NA*(11/10/16 = U Ysabel Scr) 1:15 AM) [facility] [id number] 07:15:00 Test Item Value Reference Range Interpretation Comments U Benzodia Scr (test Negative *NA*(11/10/16 code = U Benzodia Scr) 1:15 AM) [facility] [id number] 07:15:00 Test Item Value Reference Range Interpretation Comments U Amph Scr (test code Negative *NA*(11/10/16 = U Amph Scr) 1:15 AM) [facility] [id number] 07:15:00 Test Item Value Reference Range Interpretation Comments UDS Note (test code = See Note (11/10/16 1:15 UDS Note) AM) [facility] [id number] 07:15:00 Test Item Value Reference Range Interpretation Comments U Opiate Scr (test Positive *ABN*(11/10/16 code = U Opiate Scr) 1:15 AM) [facility] [id number] 07:15:00 Test Item Value Reference Range Interpretation Comments U Phencyc Scr (test Negative *NA*(11/10/16 code = U Phencyc Scr) 1:15 AM) [facility] [id number] 07:15:00 Test Item Value Reference Range Interpretation Comments U Cannab Scr (test Negative *NA*(11/10/16 code = U Cannab Scr) 1:15 AM) [facility] [id number] 07:15:00 Test Item Value Reference Range Interpretation Comments U Cocaine Scr (test Positive *ABN*(11/10/16 code = U Cocaine Scr) 1:15 AM) [facility] [id number] 07:15:00 Test Item Value Reference Range Interpretation Comments U Ysabel Scr (test code Negative *NA*(11/10/16 = U Ysabel Scr) 1:15 AM) [facility] [id number] 07:15:00 Test Item Value Reference Range Interpretation Comments U Benzodia Scr (test Negative *NA*(11/10/16 code = U Benzodia Scr) 1:15 AM) [facility] [id number] 07:15:00 Test Item Value Reference Range Interpretation Comments U Amph Scr (test code Negative *NA*(11/10/16 = U Amph Scr) 1:15 AM) [facility] [id number] 07:15:00 Test Item Value Reference Range Interpretation Comments UDS Note (test code = See Note (11/10/16 1:15 UDS Note) AM) [facility] [id number] 07:15:00 Test Item Value Reference Range Interpretation Comments U Opiate Scr (test Positive *ABN*(11/10/16 code = U Opiate Scr) 1:15 AM) [facility] [id number] 07:15:00 Test Item Value Reference Range Interpretation Comments U Phencyc Scr (test Negative *NA*(11/10/16 code = U Phencyc Scr) 1:15 AM) [facility] [id number] 07:15:00 Test Item Value Reference Range Interpretation Comments U Cannab Scr (test Negative *NA*(11/10/16 code = U Cannab Scr) 1:15 AM) [facility] [id number] 07:15:00 Test Item Value Reference Range Interpretation Comments U Cocaine Scr (test Positive *ABN*(11/10/16 code = U Cocaine Scr) 1:15 AM) [facility] [id number] 07:15:00 Test Item Value Reference Range Interpretation Comments U Ysabel Scr (test code Negative *NA*(11/10/16 = U Ysabel Scr) 1:15 AM) [facility] [id number] 07:15:00 Test Item Value Reference Range Interpretation Comments U Benzodia Scr (test Negative *NA*(11/10/16 code = U Benzodia Scr) 1:15 AM) [facility] [id number] 07:15:00 Test Item Value Reference Range Interpretation Comments U Amph Scr (test code Negative *NA*(11/10/16 = U Amph Scr) 1:15 AM) [facility] [id number] 07:15:00 Test Item Value Reference Range Interpretation Comments UDS Note (test code = See Note (11/10/16 1:15 UDS Note) AM) [facility] [id number] 07:15:00 Test Item Value Reference Range Interpretation Comments U Opiate Scr (test Positive *ABN*(11/10/16 code = U Opiate Scr) 1:15 AM) [facility] [id number] 07:15:00 Test Item Value Reference Range Interpretation Comments U Phencyc Scr (test Negative *NA*(11/10/16 code = U Phencyc Scr) 1:15 AM) [facility] [id number] 07:15:00 Test Item Value Reference Range Interpretation Comments U Cannab Scr (test Negative *NA*(11/10/16 code = U Cannab Scr) 1:15 AM) [facility] [id number] 07:15:00 Test Item Value Reference Range Interpretation Comments U Cocaine Scr (test Positive *ABN*(11/10/16 code = U Cocaine Scr) 1:15 AM) [facility] [id number] 07:15:00 Test Item Value Reference Range Interpretation Comments U Ysabel Scr (test code Negative *NA*(11/10/16 = U Ysabel Scr) 1:15 AM) [facility] [id number] 07:15:00 Test Item Value Reference Range Interpretation Comments U Benzodia Scr (test Negative *NA*(11/10/16 code = U Benzodia Scr) 1:15 AM) [facility] [id number] 07:15:00 Test Item Value Reference Range Interpretation Comments U Amph Scr (test code Negative *NA*(11/10/16 = U Amph Scr) 1:15 AM) [facility] [id number] 07:15:00 Test Item Value Reference Range Interpretation Comments UDS Note (test code = See Note (11/10/16 1:15 UDS Note) AM) [facility] [id number] 07:15:00 Test Item Value Reference Range Interpretation Comments U Opiate Scr (test Positive *ABN*(11/10/16 code = U Opiate Scr) 1:15 AM) [facility] [id number] 07:15:00 Test Item Value Reference Range Interpretation Comments U Phencyc Scr (test Negative *NA*(11/10/16 code = U Phencyc Scr) 1:15 AM) [facility] [id number] 07:15:00 Test Item Value Reference Range Interpretation Comments U Cannab Scr (test Negative *NA*(11/10/16 code = U Cannab Scr) 1:15 AM) [facility] [id number] 07:15:00 Test Item Value Reference Range Interpretation Comments U Cocaine Scr (test Positive *ABN*(11/10/16 code = U Cocaine Scr) 1:15 AM) [facility] [id number] 07:15:00 Test Item Value Reference Range Interpretation Comments U Ysabel Scr (test code Negative *NA*(11/10/16 = U Ysabel Scr) 1:15 AM) [facility] [id number] 07:15:00 Test Item Value Reference Range Interpretation Comments U Benzodia Scr (test Negative *NA*(11/10/16 code = U Benzodia Scr) 1:15 AM) [facility] [id number] 07:15:00 Test Item Value Reference Range Interpretation Comments U Amph Scr (test code Negative *NA*(11/10/16 = U Amph Scr) 1:15 AM) [facility] [id number] 07:15:00 Test Item Value Reference Range Interpretation Comments UDS Note (test code = See Note (11/10/16 1:15 UDS Note) AM) [facility] [id number] 07:15:00 Test Item Value Reference Range Interpretation Comments U Opiate Scr (test Positive *ABN*(11/10/16 code = U Opiate Scr) 1:15 AM) [facility] [id number] 07:15:00 Test Item Value Reference Range Interpretation Comments U Phencyc Scr (test Negative *NA*(11/10/16 code = U Phencyc Scr) 1:15 AM) [facility] [id number] 07:15:00 Test Item Value Reference Range Interpretation Comments U Cannab Scr (test Negative *NA*(11/10/16 code = U Cannab Scr) 1:15 AM) [facility] [id number] 07:15:00 Test Item Value Reference Range Interpretation Comments U Cocaine Scr (test Positive *ABN*(11/10/16 code = U Cocaine Scr) 1:15 AM) [facility] [id number] 07:15:00 Test Item Value Reference Range Interpretation Comments U Ysabel Scr (test code Negative *NA*(11/10/16 = U Ysabel Scr) 1:15 AM) [facility] [id number] 07:15:00 Test Item Value Reference Range Interpretation Comments U Benzodia Scr (test Negative *NA*(11/10/16 code = U Benzodia Scr) 1:15 AM) [facility] [id number] 07:15:00 Test Item Value Reference Range Interpretation Comments U Amph Scr (test code Negative *NA*(11/10/16 = U Amph Scr) 1:15 AM) [facility] [id number] 07:15:00 Test Item Value Reference Range Interpretation Comments UDS Note (test code = See Note (11/10/16 1:15 UDS Note) AM) [facility] [id number] 07:15:00 Test Item Value Reference Range Interpretation Comments U Opiate Scr (test Positive *ABN*(11/10/16 code = U Opiate Scr) 1:15 AM) [facility] [id number] 07:15:00 Test Item Value Reference Range Interpretation Comments U Phencyc Scr (test Negative *NA*(11/10/16 code = U Phencyc Scr) 1:15 AM) [facility] [id number] 07:15:00 Test Item Value Reference Range Interpretation Comments U Cannab Scr (test Negative *NA*(11/10/16 code = U Cannab Scr) 1:15 AM) [facility] [id number] 07:15:00 Test Item Value Reference Range Interpretation Comments U Cocaine Scr (test Positive *ABN*(11/10/16 code = U Cocaine Scr) 1:15 AM) [facility] [id number] 07:15:00 Test Item Value Reference Range Interpretation Comments U Ysabel Scr (test code Negative *NA*(11/10/16 = U Ysabel Scr) 1:15 AM) [facility] [id number] 07:15:00 Test Item Value Reference Range Interpretation Comments U Benzodia Scr (test Negative *NA*(11/10/16 code = U Benzodia Scr) 1:15 AM) [facility] [id number] 07:15:00 Test Item Value Reference Range Interpretation Comments U Amph Scr (test code Negative *NA*(11/10/16 = U Amph Scr) 1:15 AM) [facility] [id number] 07:15:00 Test Item Value Reference Range Interpretation Comments UDS Note (test code = See Note (11/10/16 1:15 UDS Note) AM) [facility] [id number] 07:15:00 Test Item Value Reference Range Interpretation Comments U Opiate Scr (test Positive *ABN*(11/10/16 code = U Opiate Scr) 1:15 AM) [facility] [id number] 07:15:00 Test Item Value Reference Range Interpretation Comments U Phencyc Scr (test Negative *NA*(11/10/16 code = U Phencyc Scr) 1:15 AM) [facility] [id number] 07:15:00 Test Item Value Reference Range Interpretation Comments U Cannab Scr (test Negative *NA*(11/10/16 code = U Cannab Scr) 1:15 AM) [facility] [id number] 07:15:00 Test Item Value Reference Range Interpretation Comments U Cocaine Scr (test Positive *ABN*(11/10/16 code = U Cocaine Scr) 1:15 AM) [facility] [id number] 07:15:00 Test Item Value Reference Range Interpretation Comments U Ysabel Scr (test code Negative *NA*(11/10/16 = U Ysabel Scr) 1:15 AM) [facility] [id number] 07:15:00 Test Item Value Reference Range Interpretation Comments U Benzodia Scr (test Negative *NA*(11/10/16 code = U Benzodia Scr) 1:15 AM) [facility] [id number] 07:15:00 Test Item Value Reference Range Interpretation Comments U Amph Scr (test code Negative *NA*(11/10/16 = U Amph Scr) 1:15 AM) [facility] [id number] 07:15:00 Test Item Value Reference Range Interpretation Comments UDS Note (test code = See Note (11/10/16 1:15 UDS Note) AM) [facility] [id number] 07:15:00 Test Item Value Reference Range Interpretation Comments U Opiate Scr (test Positive *ABN*(11/10/16 code = U Opiate Scr) 1:15 AM) [facility] [id number] 07:15:00 Test Item Value Reference Range Interpretation Comments U Phencyc Scr (test Negative *NA*(11/10/16 code = U Phencyc Scr) 1:15 AM) [facility] [id number] 07:15:00 Test Item Value Reference Range Interpretation Comments U Cannab Scr (test Negative *NA*(11/10/16 code = U Cannab Scr) 1:15 AM) [facility] [id number] 07:15:00 Test Item Value Reference Range Interpretation Comments U Cocaine Scr (test Positive *ABN*(11/10/16 code = U Cocaine Scr) 1:15 AM) [facility] [id number] 07:15:00 Test Item Value Reference Range Interpretation Comments U Ysabel Scr (test code Negative *NA*(11/10/16 = U Ysabel Scr) 1:15 AM) [facility] [id number] 07:15:00 Test Item Value Reference Range Interpretation Comments U Benzodia Scr (test Negative *NA*(11/10/16 code = U Benzodia Scr) 1:15 AM) [facility] [id number] 07:15:00 Test Item Value Reference Range Interpretation Comments U Amph Scr (test code Negative *NA*(11/10/16 = U Amph Scr) 1:15 AM) [facility] Hos[id number] 03:40:00 Test Item Value Reference Range Interpretation Comments AGAP (test code = AGAP) 18.2 10.0-20.0 [facility]hssxwkBDGMRFWQZQEL0877-99-33 03:40:00 Test Item Value Reference Range Interpretation Comments eGFR (test code = eGFR) 86 [facility]ZvbibqhDAGBLBATLEEN0907-85-74 03:40:00 Test Item Value Reference Range Interpretation Comments Sodium Lvl (test code = Sodium Lvl) 137 135-145 [facility] HospitalKxypcnlTLSGFSVFBFVN8028-73-71 03:40:00 Test Item Value Reference Range Interpretation Comments CO2 (test code = CO2) 24 24-32 [facility] HospitalQllbrlfDZSUNRWIJXCI0046-09-60 03:40:00 Test Item Value Reference Range Interpretation Comments Chloride Lvl (test code = Chloride Lvl) 98 95-109 [facility] HospitalXyhuiqgJDTZKDJQYYZX9764-92-54 03:40:00 Test Item Value Reference Range Interpretation Comments Potassium Lvl (test code = Potassium 3.2 3.5-5.1 Lvl) [facility] HospitalKfalnhwDGLFHQXKEVFV7775-16-72 03:40:00 Test Item Value Reference Range Interpretation Comments BUN (test code = BUN) 14 7-22 [facility] HospitalFisdiksBZGPOTNDSIYK7071-28-39 03:40:00 Test Item Value Reference Range Interpretation Comments Glucose Lvl (test code = Glucose Lvl) 80 70-99 [facility] HospitalVzqfnpuUTSBNDXOIYKI6797-36-76 03:40:00 Test Item Value Reference Range Interpretation Comments Creatinine Lvl (test code = Creatinine 1.15 0.50-1.40 Lvl) [facility] HospitalRyvymaqFGHRRLKOGPNS4308-25-02 03:40:00 Test Item Value Reference Range Interpretation Comments Calcium Lvl (test code = Calcium Lvl) 9.0 8.5-10.5 [facility]RlqyncoLWEWDWFTSF1073-00-53 03:40:00 Test Item Value Reference Range Interpretation Comments Segs-Bands # (test code = Segs-Bands #) 10.5 1.5-8.1 [facility] RegionalFbixyluCKOCHTCFDQ5894-06-16 03:40:00 Test Item Value Reference Range Interpretation Comments Eosinophils (test code = 0.5 See_Comment [A utomated message] The Eosinophils) system which ge nerated this result tra nsmitted reference range : <=4.0. The reference r natasha was not used to int erpret this result as normal/abnormal . [facility] RegionalJlzrqkjOWXBYINUWZ9139-17-54 03:40:00 Test Item Value Reference Range Interpretation Comments Basophils (test code = 1.1 See_Comment [Aut omated message] The Basophils) system which ge nerated this result tra nsmitted reference range : <=1.0. The reference r natasha was not used to int erpret this result as normal/abnormal . [facility] RegionalLxpseokPATAEBULZT7539-82-39 03:40:00 Test Item Value Reference Range Interpretation Comments Lymphocytes # (test code = Lymphocytes 4.0 1.0-5.5 #) [facility] RegionalRefyeokVVCODZXSON3777-28-51 03:40:00 Test Item Value Reference Range Interpretation Comments Monocytes # (test code 0.8 See_Comment [Aut omated message] The = Monocytes #) system which generated this result tra nsmitted reference range : <=0.8. The reference r natasha was not used to int erpret this result as normal/abnormal . [facility] RegionalJxwkhqpWSVCMQPBSR0351-60-93 03:40:00 Test Item Value Reference Range Interpretation Comments Eosinophils # (test code 0.1 See_Comment [A utomated message] The = Eosinophils #) system whic h generated this result tra nsmitted reference range : <=0.5. The reference r natasha was not used to int erpret this result as normal/abnormal . [facility] RegionalBbmhmmvLIKPGYQOJE0607-58-06 03:40:00 Test Item Value Reference Range Interpretation Comments Basophils # (test code 0.2 See_Comment [Aut omated message] The = Basophils #) system which generated this result tra nsmitted reference range : <=0.2. The reference r natasha was not used to int erpret this result as normal/abnormal . [facility] RegionalOgqydfcPOMWTYBXVS1754-17-08 03:40:00 Test Item Value Reference Range Interpretation Comments Segs (test code = Segs) 67.1 45.0-75.0 [facility] RegionalQifcwxsCBYDEJSEPJ9422-09-07 03:40:00 Test Item Value Reference Range Interpretation Comments Lymphocytes (test code = Lymphocytes) 26.0 20.0-40.0 [facility] RegionalPvxttpmSQTVBFCIIM6832-55-43 03:40:00 Test Item Value Reference Range Interpretation Comments Monocytes (test code = Monocytes) 5.3 2.0-12.0 [facility] RegionalLhnpqidZCZBUZNRCA6803-02-48 03:40:00 Test Item Value Reference Range Interpretation Comments RDW (test code = RDW) 12.8 11.5-14.5 [facility] RegionalDsllhnxJUGKDAQRLW3512-44-39 03:40:00 Test Item Value Reference Range Interpretation Comments Platelet (test code = Platelet) 189 133-450 [facility] RegionalHcgfqheGMSNGNFVAH2045-93-36 03:40:00 Test Item Value Reference Range Interpretation Comments MPV (test code = MPV) 6.1 7.4-10.4 [facility] RegionalPddnsmhITQJUYFVYU0731-59-40 03:40:00 Test Item Value Reference Range Interpretation Comments Hgb (test code = Hgb) 15.9 14.0-18.0 [facility] RegionalQmtiukvCENPZQFOBY7425-70-56 03:40:00 Test Item Value Reference Range Interpretation Comments Hct (test code = Hct) 45.4 42.0-54.0 [facility] RegionalLddjmpfLHSVKKMKVB4122-61-43 03:40:00 Test Item Value Reference Range Interpretation Comments MCV (test code = MCV) 95.1 80.0-94.0 [facility] RegionalCunvjawCTYQTWFZMX4845-11-63 03:40:00 Test Item Value Reference Range Interpretation Comments MCH (test code = MCH) 33.3 pg 27.0-31.0 [facility] RegionalFkkjvipTCPNQLAXVI0883-52-91 03:40:00 Test Item Value Reference Range Interpretation Comments MCHC (test code = MCHC) 35.0 32.0-36.0 [facility] RegionalWplcxivRRCJISVOXQ7252-49-94 03:40:00 Test Item Value Reference Range Interpretation Comments WBC (test code = WBC) 15.6 3.7-10.4 [facility] RegionalDfzukgqLDFEHQUHFT6581-59-64 03:40:00 Test Item Value Reference Range Interpretation Comments RBC (test code = RBC) 4.77 4.70-6.10 [facility] RegionalNhpqaovHVXJYPTVTT6462-31-43 03:40:00 Test Item Value Reference Range Interpretation Comments G-value Rapid (test code = G-value 3.7 5.0-11.6 Rapid) [facility] RegionalOzwargkJJGJDASJXI6853-64-65 03:40:00 Test Item Value Reference Range Interpretation Comments Max Amplitude Rapid (test code = Max 42 mm 52-71 Amplitude Rapid) [facility] RegionalRgupognZKANFNZWVV8711-48-55 03:40:00 Test Item Value Reference Range Interpretation Comments Estimated % Lysis Rapid 3.4 See_Comment [Au tomated message] The (test code = Estimated syste m which generated % Lysis Rapid) this result t ransmitted reference range : <=7.5. The reference r natasha was not used to int erpret this result as normal/abnormal . [facility] RegionalZvqdvrqCAHHZPOYBU7313-12-33 03:40:00 Test Item Value Reference Range Interpretation Comments Split Point Rapid (test code = Split 0.7 min Point Rapid) [facility] RegionalQdvyciiCMQORBVBLW8586-36-24 03:40:00 Test Item Value Reference Range Interpretation Comments R-time Rapid (test code = R-time 1.1 min 0.4-0.7 Rapid) [facility] RegionalBenmfwqFRYWFKWHKG9599-31-02 03:40:00 Test Item Value Reference Range Interpretation Comments ACT (TEG) Rapid (test code = ACT (TEG) 152 s 86-118 Rapid) [facility] RegionalNkyrduzWXKDQOWJDU1061-50-07 03:40:00 Test Item Value Reference Range Interpretation Comments K-time Rapid (test code = K-time 4.1 min 0.6-2.3 Rapid) [facility] RegionalDjjfhxuMNGTDODPIO1631-85-22 03:40:00 Test Item Value Reference Range Interpretation Comments Angle Rapid (test code = Angle 48 degrees 64-80 Rapid) [facility] CenterOxtahupIUVGARWKHA7155-14-39 03:40:00 Test Item Value Reference Range Interpretation Comments Etoh (%) (test code = Etoh (%)) 0.148 [facility]ZrgysqvGHSTTVWJMI6955-31-59 03:40:00 Test Item Value Reference Range Interpretation Comments Ethanol Lvl (test code = Ethanol Lvl) 148 [facility] HospitalQpzajtiGRSUFGNFYLFE1757-43-97 03:40:00 Test Item Value Reference Range Interpretation Comments AGAP (test code = AGAP) 18.2 10.0-20.0 [facility] HospitalBxlsearCJJEBRTDLYIS4663-02-59 03:40:00 Test Item Value Reference Range Interpretation Comments eGFR (test code = eGFR) 86 [facility] HospitalYkizqvuRSUKTJVJTTWE4493-16-56 03:40:00 Test Item Value Reference Range Interpretation Comments Sodium Lvl (test code = Sodium Lvl) 137 135-145 [facility] HospitalWiecaxjUFCWCMMVKJOS4209-68-39 03:40:00 Test Item Value Reference Range Interpretation Comments CO2 (test code = CO2) 24 24-32 [facility] HospitalImrtxffJUFITLGVVOUH5162-23-22 03:40:00 Test Item Value Reference Range Interpretation Comments Chloride Lvl (test code = Chloride Lvl) 98 95-109 [facility] HospitalMcnvaaoYBNVJYYSREKD0314-47-98 03:40:00 Test Item Value Reference Range Interpretation Comments Potassium Lvl (test code = Potassium 3.2 3.5-5.1 Lvl) [facility] HospitalXwemcrcUXRCBQKXWSGY9661-29-79 03:40:00 Test Item Value Reference Range Interpretation Comments BUN (test code = BUN) 14 7-22 [facility] HospitalNddwdzeORYSNYOPHWHU0179-97-17 03:40:00 Test Item Value Reference Range Interpretation Comments Glucose Lvl (test code = Glucose Lvl) 80 70-99 [facility] HospitalTqrlxseOFAGHPXXBFLL4436-25-66 03:40:00 Test Item Value Reference Range Interpretation Comments Creatinine Lvl (test code = Creatinine 1.15 0.50-1.40 Lvl) [facility] HospitalNlrkgdqKXHHJEROWNWW6293-85-28 03:40:00 Test Item Value Reference Range Interpretation Comments Calcium Lvl (test code = Calcium Lvl) 9.0 8.5-10.5 [facility] RegionalLyvbfmtIGCGXQJHDZ5229-42-19 03:40:00 Test Item Value Reference Range Interpretation Comments Segs-Bands # (test code = Segs-Bands #) 10.5 1.5-8.1 [facility] RegionalDiozkkwVGMOZFCKLJ5158-33-49 03:40:00 Test Item Value Reference Range Interpretation Comments Eosinophils (test code = 0.5 See_Comment [A utomated message] The Eosinophils) system which ge nerated this result tra nsmitted reference range : <=4.0. The reference r natasha was not used to int erpret this result as normal/abnormal . [facility] RegionalOfmzixkBLKYZUMBNJ7806-54-44 03:40:00 Test Item Value Reference Range Interpretation Comments Basophils (test code = 1.1 See_Comment [Aut omated message] The Basophils) system which ge nerated this result tra nsmitted reference range : <=1.0. The reference r natasha was not used to int erpret this result as normal/abnormal . [facility] RegionalUdgejxwWGGBOKFYKK6628-85-94 03:40:00 Test Item Value Reference Range Interpretation Comments Lymphocytes # (test code = Lymphocytes 4.0 1.0-5.5 #) [facility] RegionalZxyjudcYZBCVNFYWY9518-52-97 03:40:00 Test Item Value Reference Range Interpretation Comments Monocytes # (test code 0.8 See_Comment [Aut omated message] The = Monocytes #) system which generated this result tra nsmitted reference range : <=0.8. The reference r natasha was not used to int erpret this result as normal/abnormal . [facility] RegionalLkcsaacDZXJXLAMDP5547-89-21 03:40:00 Test Item Value Reference Range Interpretation Comments Eosinophils # (test code 0.1 See_Comment [A utomated message] The = Eosinophils #) system whic h generated this result tra nsmitted reference range : <=0.5. The reference r natasha was not used to int erpret this result as normal/abnormal . [facility] RegionalSejqypcIDJGYMZKCA9679-91-77 03:40:00 Test Item Value Reference Range Interpretation Comments Basophils # (test code 0.2 See_Comment [Aut omated message] The = Basophils #) system which generated this result tra nsmitted reference range : <=0.2. The reference r natasha was not used to int erpret this result as normal/abnormal . [facility] RegionalHtgncneNPASDAJYLC7241-29-09 03:40:00 Test Item Value Reference Range Interpretation Comments Segs (test code = Segs) 67.1 45.0-75.0 [facility] RegionalJcnneyuHZBYYIYQKM5282-62-59 03:40:00 Test Item Value Reference Range Interpretation Comments Lymphocytes (test code = Lymphocytes) 26.0 20.0-40.0 [facility] RegionalSdiqfdkYNFENYFNSP9330-18-17 03:40:00 Test Item Value Reference Range Interpretation Comments Monocytes (test code = Monocytes) 5.3 2.0-12.0 [facility] RegionalOfcwukpTWZCSNWITB5809-84-76 03:40:00 Test Item Value Reference Range Interpretation Comments RDW (test code = RDW) 12.8 11.5-14.5 [facility] RegionalTjbelflEEUWWCZMVI1780-24-34 03:40:00 Test Item Value Reference Range Interpretation Comments Platelet (test code = Platelet) 189 133-450 [facility]QjtytywXLDRYJHSRI3281-10-34 03:40:00 Test Item Value Reference Range Interpretation Comments MPV (test code = MPV) 6.1 7.4-10.4 [facility] RegionalBmajfywQUZYBQYTCO5228-43-02 03:40:00 Test Item Value Reference Range Interpretation Comments Hgb (test code = Hgb) 15.9 14.0-18.0 [facility] RegionalXexixiiKJIGFERRYZ5702-15-39 03:40:00 Test Item Value Reference Range Interpretation Comments Hct (test code = Hct) 45.4 42.0-54.0 [facility] RegionalVfanpgeQOTJEMNRQH2012-59-23 03:40:00 Test Item Value Reference Range Interpretation Comments MCV (test code = MCV) 95.1 80.0-94.0 [facility] RegionalEsmlkmcXMWBWTIZUH4131-09-17 03:40:00 Test Item Value Reference Range Interpretation Comments MCH (test code = MCH) 33.3 pg 27.0-31.0 [facility] RegionalMbwtwrjFCIUMQBPOZ0530-29-14 03:40:00 Test Item Value Reference Range Interpretation Comments MCHC (test code = MCHC) 35.0 32.0-36.0 [facility] RegionalKjayeywPBEGGRHSMQ7510-07-66 03:40:00 Test Item Value Reference Range Interpretation Comments WBC (test code = WBC) 15.6 3.7-10.4 [facility] RegionalPesvsouKTUWNBNISA2024-94-19 03:40:00 Test Item Value Reference Range Interpretation Comments RBC (test code = RBC) 4.77 4.70-6.10 [facility] RegionalSsmhozkHDCGXFMKZQ9496-38-93 03:40:00 Test Item Value Reference Range Interpretation Comments G-value Rapid (test code = G-value 3.7 5.0-11.6 Rapid) [facility] RegionalBmvikczFKHHGXVFAD7363-10-92 03:40:00 Test Item Value Reference Range Interpretation Comments Max Amplitude Rapid (test code = Max 42 mm 52-71 Amplitude Rapid) [facility] RegionalKjjtotbYJMJUXUPWR3039-09-76 03:40:00 Test Item Value Reference Range Interpretation Comments Estimated % Lysis Rapid 3.4 See_Comment [Au tomated message] The (test code = Estimated syste m which generated % Lysis Rapid) this result t ransmitted reference range : <=7.5. The reference r natasha was not used to int erpret this result as normal/abnormal . [facility] RegionalCegtrzgMBMILQBLMM1551-29-22 03:40:00 Test Item Value Reference Range Interpretation Comments Split Point Rapid (test code = Split 0.7 min Point Rapid) [facility] RegionalEgoncxnUGMEVLVXET2392-83-52 03:40:00 Test Item Value Reference Range Interpretation Comments R-time Rapid (test code = R-time 1.1 min 0.4-0.7 Rapid) [facility] RegionalFnqjqokNYKYRIHBMB1498-50-87 03:40:00 Test Item Value Reference Range Interpretation Comments ACT (TEG) Rapid (test code = ACT (TEG) 152 s 86-118 Rapid) [facility] RegionalFaofbhkUAFNEXTKCJ0851-15-30 03:40:00 Test Item Value Reference Range Interpretation Comments K-time Rapid (test code = K-time 4.1 min 0.6-2.3 Rapid) [facility] RegionalIogwnzuZDZGDIQSCE9169-52-90 03:40:00 Test Item Value Reference Range Interpretation Comments Angle Rapid (test code = Angle 48 degrees 64-80 Rapid) [facility]ZosiopoJJDOOXTNUI2116-71-10 03:40:00 Test Item Value Reference Range Interpretation Comments Etoh (%) (test code = Etoh (%)) 0.148 [place] [id number] 03:40:00 Test Item Value Reference Range Interpretation Comments Ethanol Lvl (test code = Ethanol Lvl) 148 [facility] HospitalMozhfkdATFCWDTOOYDJ6175-93-90 03:40:00 Test Item Value Reference Range Interpretation Comments AGAP (test code = AGAP) 18.2 10.0-20.0 [facility] HospitalLzsfqfzKLCYDNTYCDCM9613-98-39 03:40:00 Test Item Value Reference Range Interpretation Comments eGFR (test code = eGFR) 86 [facility] HospitalGpktlasASNXAOIKUPMC1103-85-68 03:40:00 Test Item Value Reference Range Interpretation Comments Sodium Lvl (test code = Sodium Lvl) 137 135-145 [facility] HospitalEcadflgOLNQDUSYXIGR3987-45-52 03:40:00 Test Item Value Reference Range Interpretation Comments CO2 (test code = CO2) 24 24-32 [facility] HospitalCeciwluKMKUMZXPVAHR6614-29-66 03:40:00 Test Item Value Reference Range Interpretation Comments Chloride Lvl (test code = Chloride Lvl) 98 95-109 [facility] HospitalVkekdgqLOKHLCPUJKCO7806-06-92 03:40:00 Test Item Value Reference Range Interpretation Comments Potassium Lvl (test code = Potassium 3.2 3.5-5.1 Lvl) [facility] HospitalVukudvbHKTAWUVHZACT6737-38-53 03:40:00 Test Item Value Reference Range Interpretation Comments BUN (test code = BUN) 14 7-22 [facility] HospitalUpdhioqYRXGNNAVCCBC2516-88-25 03:40:00 Test Item Value Reference Range Interpretation Comments Glucose Lvl (test code = Glucose Lvl) 80 70-99 [facility] HospitalKmipfavDDYOZOWCXDFZ1925-04-22 03:40:00 Test Item Value Reference Range Interpretation Comments Creatinine Lvl (test code = Creatinine 1.15 0.50-1.40 Lvl) [facility] HospitalQsuzggiCHQAAQPWXRAJ6846-92-87 03:40:00 Test Item Value Reference Range Interpretation Comments Calcium Lvl (test code = Calcium Lvl) 9.0 8.5-10.5 [facility] RegionalLoghakeAQPIAYDYJH3911-52-90 03:40:00 Test Item Value Reference Range Interpretation Comments Segs-Bands # (test code = Segs-Bands #) 10.5 1.5-8.1 [facility] RegionalSvbzhacUTSYUPHKGL4505-05-22 03:40:00 Test Item Value Reference Range Interpretation Comments Eosinophils (test code = 0.5 See_Comment [A utomated message] The Eosinophils) system which ge nerated this result tra nsmitted reference range : <=4.0. The reference r natasha was not used to int erpret this result as normal/abnormal . [facility] RegionalZcwpctgBIIKKEEYJZ5807-46-07 03:40:00 Test Item Value Reference Range Interpretation Comments Basophils (test code = 1.1 See_Comment [Aut omated message] The Basophils) system which ge nerated this result tra nsmitted reference range : <=1.0. The reference r natasha was not used to int erpret this result as normal/abnormal . [facility] RegionalCurrlvzSTGXTXACBM2013-73-23 03:40:00 Test Item Value Reference Range Interpretation Comments Lymphocytes # (test code = Lymphocytes 4.0 1.0-5.5 #) [facility] RegionalSixoaftMFKNALJGCJ6278-22-86 03:40:00 Test Item Value Reference Range Interpretation Comments Monocytes # (test code 0.8 See_Comment [Aut omated message] The = Monocytes #) system which generated this result tra nsmitted reference range : <=0.8. The reference r natasha was not used to int erpret this result as normal/abnormal . [facility] RegionalRgahryvLNFDNFZAIP7259-29-32 03:40:00 Test Item Value Reference Range Interpretation Comments Eosinophils # (test code 0.1 See_Comment [A utomated message] The = Eosinophils #) system whic h generated this result tra nsmitted reference range : <=0.5. The reference r natasha was not used to int erpret this result as normal/abnormal . [facility] RegionalLwoamvcPIAGUYNPEV9973-73-77 03:40:00 Test Item Value Reference Range Interpretation Comments Basophils # (test code 0.2 See_Comment [Aut omated message] The = Basophils #) system which generated this result tra nsmitted reference range : <=0.2. The reference r natasha was not used to int erpret this result as normal/abnormal . [facility] RegionalFfmcnbiZFSWIRVSWU0141-19-26 03:40:00 Test Item Value Reference Range Interpretation Comments Segs (test code = Segs) 67.1 45.0-75.0 [facility] RegionalPcppothFYGOUJSKDD2709-94-92 03:40:00 Test Item Value Reference Range Interpretation Comments Lymphocytes (test code = Lymphocytes) 26.0 20.0-40.0 [facility] RegionalPisfdtoAERPRKINXS7169-51-26 03:40:00 Test Item Value Reference Range Interpretation Comments Monocytes (test code = Monocytes) 5.3 2.0-12.0 [facility] RegionalAuyqdylZEEJOAOAUD2910-04-37 03:40:00 Test Item Value Reference Range Interpretation Comments RDW (test code = RDW) 12.8 11.5-14.5 [facility] RegionalXwjdoqlOZJFUQGKMD4248-26-59 03:40:00 Test Item Value Reference Range Interpretation Comments Platelet (test code = Platelet) 189 133-450 [facility] RegionalPpajtjaJNNRVGFUMC0094-20-35 03:40:00 Test Item Value Reference Range Interpretation Comments MPV (test code = MPV) 6.1 7.4-10.4 [facility] RegionalInrjldzUZTXFSMANJ9510-20-28 03:40:00 Test Item Value Reference Range Interpretation Comments Hgb (test code = Hgb) 15.9 14.0-18.0 [facility] RegionalXawbplwNYEORNRNOT0349-18-01 03:40:00 Test Item Value Reference Range Interpretation Comments Hct (test code = Hct) 45.4 42.0-54.0 [facility] RegionalFhccjlsPDYLKNJYOP6233-77-94 03:40:00 Test Item Value Reference Range Interpretation Comments MCV (test code = MCV) 95.1 80.0-94.0 [facility] RegionalAechqwaAFDUKATHZO5264-65-84 03:40:00 Test Item Value Reference Range Interpretation Comments MCH (test code = MCH) 33.3 pg 27.0-31.0 [facility] RegionalEjkdiwhLJXMCEVONC1126-66-84 03:40:00 Test Item Value Reference Range Interpretation Comments MCHC (test code = MCHC) 35.0 32.0-36.0 [facility] RegionalUvyjjehZYXBCBNJSX2625-82-90 03:40:00 Test Item Value Reference Range Interpretation Comments WBC (test code = WBC) 15.6 3.7-10.4 [facility] RegionalXjvvmrkSULMCWDZGY0486-89-57 03:40:00 Test Item Value Reference Range Interpretation Comments RBC (test code = RBC) 4.77 4.70-6.10 [facility] RegionalGtzbrsrHOEBSIOMJF3941-50-55 03:40:00 Test Item Value Reference Range Interpretation Comments G-value Rapid (test code = G-value 3.7 5.0-11.6 Rapid) [facility] RegionalGnzeijdXSJBOBZOUB1423-91-80 03:40:00 Test Item Value Reference Range Interpretation Comments Max Amplitude Rapid (test code = Max 42 mm 52-71 Amplitude Rapid) [facility] RegionalSdmtkfrNCKDSPAXKJ2450-62-19 03:40:00 Test Item Value Reference Range Interpretation Comments Estimated % Lysis Rapid 3.4 See_Comment [Au tomated message] The (test code = Estimated syste m which generated % Lysis Rapid) this result t ransmitted reference range : <=7.5. The reference r natasha was not used to int erpret this result as normal/abnormal . [facility] RegionalPqpptomLBWIXDZLCS9076-16-78 03:40:00 Test Item Value Reference Range Interpretation Comments Split Point Rapid (test code = Split 0.7 min Point Rapid) [facility] RegionalGdvlvnnZSXPQOVOVL5562-14-35 03:40:00 Test Item Value Reference Range Interpretation Comments R-time Rapid (test code = R-time 1.1 min 0.4-0.7 Rapid) [facility] RegionalUyjvdmnUQSJIDZKIB0374-93-80 03:40:00 Test Item Value Reference Range Interpretation Comments ACT (TEG) Rapid (test code = ACT (TEG) 152 s 86-118 Rapid) [facility] RegionalGqlkcmxVRXLXPVAZL7316-82-93 03:40:00 Test Item Value Reference Range Interpretation Comments K-time Rapid (test code = K-time 4.1 min 0.6-2.3 Rapid) [facility] RegionalMhmgromBDWVKDQXMD8956-06-31 03:40:00 Test Item Value Reference Range Interpretation Comments Angle Rapid (test code = Angle 48 degrees 64-80 Rapid) [place] [id number] 03:40:00 Test Item Value Reference Range Interpretation Comments Etoh (%) (test code = Etoh (%)) 0.148 [place] [id number] 03:40:00 Test Item Value Reference Range Interpretation Comments Ethanol Lvl (test code = Ethanol Lvl) 148 [facility] HospitalZvzbptnTNQGYBAVTIGM7950-04-84 03:40:00 Test Item Value Reference Range Interpretation Comments AGAP (test code = AGAP) 18.2 10.0-20.0 [facility] HospitalIuyyjrwYWTLRFWYNXRS6034-70-21 03:40:00 Test Item Value Reference Range Interpretation Comments eGFR (test code = eGFR) 86 [facility] HospitalWjqbaqeRDXTHYCLZHAX0600-49-85 03:40:00 Test Item Value Reference Range Interpretation Comments Sodium Lvl (test code = Sodium Lvl) 137 135-145 [facility] HospitalIqymtioWPULSDAHFEOR8878-35-19 03:40:00 Test Item Value Reference Range Interpretation Comments CO2 (test code = CO2) 24 24-32 [facility] HospitalBadleuhFJGXJZYJTIZE9904-85-13 03:40:00 Test Item Value Reference Range Interpretation Comments Chloride Lvl (test code = Chloride Lvl) 98 95-109 [facility] HospitalSfcmbnhCYMDQRZGPRSA6930-30-75 03:40:00 Test Item Value Reference Range Interpretation Comments Potassium Lvl (test code = Potassium 3.2 3.5-5.1 Lvl) [facility] HospitalQjfjrojOJGSHWHSAHIX4660-71-13 03:40:00 Test Item Value Reference Range Interpretation Comments BUN (test code = BUN) 14 7-22 [facility] HospitalFzdcpryMNYLNZLYXCKZ5081-08-42 03:40:00 Test Item Value Reference Range Interpretation Comments Glucose Lvl (test code = Glucose Lvl) 80 70-99 [facility] HospitalPgwqujqPHIPFUEQDLMG4197-92-15 03:40:00 Test Item Value Reference Range Interpretation Comments Creatinine Lvl (test code = Creatinine 1.15 0.50-1.40 Lvl) [facility] HospitalLployfoZLLQZTETDCBT1750-61-39 03:40:00 Test Item Value Reference Range Interpretation Comments Calcium Lvl (test code = Calcium Lvl) 9.0 8.5-10.5 [facility] RegionalDryvzkmPYEDYDKNBI9228-79-54 03:40:00 Test Item Value Reference Range Interpretation Comments Segs-Bands # (test code = Segs-Bands #) 10.5 1.5-8.1 [facility] RegionalEdjzghrGGSLTRFCQN4863-62-56 03:40:00 Test Item Value Reference Range Interpretation Comments Eosinophils (test code = 0.5 See_Comment [A utomated message] The Eosinophils) system which ge nerated this result tra nsmitted reference range : <=4.0. The reference r natasha was not used to int erpret this result as normal/abnormal . [facility] RegionalRhytlrlTGWZECEIMU7245-47-70 03:40:00 Test Item Value Reference Range Interpretation Comments Basophils (test code = 1.1 See_Comment [Aut omated message] The Basophils) system which ge nerated this result tra nsmitted reference range : <=1.0. The reference r natasha was not used to int erpret this result as normal/abnormal . [facility] RegionalNqcyyrsDTPPDHPTQL0597-54-65 03:40:00 Test Item Value Reference Range Interpretation Comments Lymphocytes # (test code = Lymphocytes 4.0 1.0-5.5 #) [facility] RegionalEkwwwicXVAVXXRPPH6677-78-65 03:40:00 Test Item Value Reference Range Interpretation Comments Monocytes # (test code 0.8 See_Comment [Aut omated message] The = Monocytes #) system which generated this result tra nsmitted reference range : <=0.8. The reference r natasha was not used to int erpret this result as normal/abnormal . [facility] RegionalVacnadbDLMUSBLTXV9133-47-22 03:40:00 Test Item Value Reference Range Interpretation Comments Eosinophils # (test code 0.1 See_Comment [A utomated message] The = Eosinophils #) system whic h generated this result tra nsmitted reference range : <=0.5. The reference r natasha was not used to int erpret this result as normal/abnormal . [facility] RegionalNddsnkwWPNXGTZSVE6457-43-47 03:40:00 Test Item Value Reference Range Interpretation Comments Basophils # (test code 0.2 See_Comment [Aut omated message] The = Basophils #) system which generated this result tra nsmitted reference range : <=0.2. The reference r natasha was not used to int erpret this result as normal/abnormal . [facility] RegionalMiafujvCTFCZHVFGK7419-49-14 03:40:00 Test Item Value Reference Range Interpretation Comments Segs (test code = Segs) 67.1 45.0-75.0 [facility] RegionalXqnrgohEMYKXADIUY3438-61-95 03:40:00 Test Item Value Reference Range Interpretation Comments Lymphocytes (test code = Lymphocytes) 26.0 20.0-40.0 [facility] RegionalAdcjgdpEUMJBOHCJL0069-27-39 03:40:00 Test Item Value Reference Range Interpretation Comments Monocytes (test code = Monocytes) 5.3 2.0-12.0 [facility] RegionalRsvtrwhQHMABUKPKK3594-45-80 03:40:00 Test Item Value Reference Range Interpretation Comments RDW (test code = RDW) 12.8 11.5-14.5 [facility] RegionalYiqlxlbFKHUVRMXPT5358-05-84 03:40:00 Test Item Value Reference Range Interpretation Comments Platelet (test code = Platelet) 189 133-450 [facility] RegionalSujgcegAUJKEXGHJQ8514-04-92 03:40:00 Test Item Value Reference Range Interpretation Comments MPV (test code = MPV) 6.1 7.4-10.4 [facility] RegionalYgwyhqeNAJNTVSLGE5778-48-44 03:40:00 Test Item Value Reference Range Interpretation Comments Hgb (test code = Hgb) 15.9 14.0-18.0 [facility] RegionalIbxybddXPHEOSQGGL6486-76-38 03:40:00 Test Item Value Reference Range Interpretation Comments Hct (test code = Hct) 45.4 42.0-54.0 [facility] RegionalAfaltzwIDNCRRBDRU7278-90-09 03:40:00 Test Item Value Reference Range Interpretation Comments MCV (test code = MCV) 95.1 80.0-94.0 [facility] RegionalUlassvcICCMQPZWHF1434-49-16 03:40:00 Test Item Value Reference Range Interpretation Comments MCH (test code = MCH) 33.3 pg 27.0-31.0 [facility] RegionalBdkofwqNJXKWEEJDH5514-22-69 03:40:00 Test Item Value Reference Range Interpretation Comments MCHC (test code = MCHC) 35.0 32.0-36.0 [facility] RegionalXmslymbZZYRRANEGW3379-28-65 03:40:00 Test Item Value Reference Range Interpretation Comments WBC (test code = WBC) 15.6 3.7-10.4 [facility] RegionalYrehkjjEIVTIOJCKP9357-01-69 03:40:00 Test Item Value Reference Range Interpretation Comments RBC (test code = RBC) 4.77 4.70-6.10 [facility] RegionalKypnxmiJQULPQXHUR5104-52-70 03:40:00 Test Item Value Reference Range Interpretation Comments G-value Rapid (test code = G-value 3.7 5.0-11.6 Rapid) [facility] RegionalVmabmyqBNAQSJCOTO8820-98-06 03:40:00 Test Item Value Reference Range Interpretation Comments Max Amplitude Rapid (test code = Max 42 mm 52-71 Amplitude Rapid) [facility] RegionalFwrnqltWTTHFKSEEN2333-37-69 03:40:00 Test Item Value Reference Range Interpretation Comments Estimated % Lysis Rapid 3.4 See_Comment [Au tomated message] The (test code = Estimated syste m which generated % Lysis Rapid) this result t ransmitted reference range : <=7.5. The reference r natasha was not used to int erpret this result as normal/abnormal . [facility] RegionalPzrhykrBYTVSHMOGR9935-59-63 03:40:00 Test Item Value Reference Range Interpretation Comments Split Point Rapid (test code = Split 0.7 min Point Rapid) [facility] RegionalBixpnsxTFCHKSSBDE5653-50-60 03:40:00 Test Item Value Reference Range Interpretation Comments R-time Rapid (test code = R-time 1.1 min 0.4-0.7 Rapid) [facility] RegionalIdrsaiyLKHUSSLUZB5126-45-20 03:40:00 Test Item Value Reference Range Interpretation Comments ACT (TEG) Rapid (test code = ACT (TEG) 152 s 86-118 Rapid) [facility] RegionalOsoekevPSDJXLSYOR0004-01-36 03:40:00 Test Item Value Reference Range Interpretation Comments K-time Rapid (test code = K-time 4.1 min 0.6-2.3 Rapid) [facility] RegionalMdunigpHAWRUUZPIH2132-58-26 03:40:00 Test Item Value Reference Range Interpretation Comments Angle Rapid (test code = Angle 48 degrees 64-80 Rapid) [facility]VhhzvmeKNUWQQICHR7051-47-74 03:40:00 Test Item Value Reference Range Interpretation Comments Etoh (%) (test code = Etoh (%)) 0.148 [facility]DpqxotyUGYBZQSWGI4801-01-51 03:40:00 Test Item Value Reference Range Interpretation Comments Ethanol Lvl (test code = Ethanol Lvl) 148 [facility]hvduARQHXYPYWEAV9561-39-62 03:40:00 Test Item Value Reference Range Interpretation Comments AGAP (test code = AGAP) 18.2 10.0-20.0 [facility] HospitalYrhjbfmWMHGXRBAPLMY6460-56-23 03:40:00 Test Item Value Reference Range Interpretation Comments eGFR (test code = eGFR) 86 [facility] HospitalQnmnuqhHIWUKXRWTFEB2734-45-91 03:40:00 Test Item Value Reference Range Interpretation Comments Sodium Lvl (test code = Sodium Lvl) 137 135-145 [facility] HospitalDhxrovaGMNPRPZCQDWA1457-30-30 03:40:00 Test Item Value Reference Range Interpretation Comments CO2 (test code = CO2) 24 24-32 [facility] HospitalWqcourtWUCZTLBBQUPM3312-83-11 03:40:00 Test Item Value Reference Range Interpretation Comments Chloride Lvl (test code = Chloride Lvl) 98 95-109 [facility] HospitalCpbvwlnARPHCDFJHTBG1637-15-89 03:40:00 Test Item Value Reference Range Interpretation Comments Potassium Lvl (test code = Potassium 3.2 3.5-5.1 Lvl) [facility] HospitalBpomgtgKDTBPHOHWNHP3783-92-56 03:40:00 Test Item Value Reference Range Interpretation Comments BUN (test code = BUN) 14 7-22 [facility] HospitalHklozmoBILXGGMKWTOT1613-21-03 03:40:00 Test Item Value Reference Range Interpretation Comments Glucose Lvl (test code = Glucose Lvl) 80 70-99 [facility] HospitalUvnsmvnTETPJELBSTOT6626-73-50 03:40:00 Test Item Value Reference Range Interpretation Comments Creatinine Lvl (test code = Creatinine 1.15 0.50-1.40 Lvl) [facility] HospitalIwjmhwsOBBNTIMWVFZQ9190-31-99 03:40:00 Test Item Value Reference Range Interpretation Comments Calcium Lvl (test code = Calcium Lvl) 9.0 8.5-10.5 [facility] RegionalWisilvlJOPHODRQRO1314-01-90 03:40:00 Test Item Value Reference Range Interpretation Comments Segs-Bands # (test code = Segs-Bands #) 10.5 1.5-8.1 [facility] RegionalUeovzdsDUHGYUBMUH4498-53-36 03:40:00 Test Item Value Reference Range Interpretation Comments Eosinophils (test code = 0.5 See_Comment [A utomated message] The Eosinophils) system which ge nerated this result tra nsmitted reference range : <=4.0. The reference r natasha was not used to int erpret this result as normal/abnormal . [facility] RegionalJhwhbpkMFOOYQNDSG2048-13-81 03:40:00 Test Item Value Reference Range Interpretation Comments Basophils (test code = 1.1 See_Comment [Aut omated message] The Basophils) system which ge nerated this result tra nsmitted reference range : <=1.0. The reference r natasha was not used to int erpret this result as normal/abnormal . [facility] RegionalWceqpquOMEBNQXQMQ3731-84-45 03:40:00 Test Item Value Reference Range Interpretation Comments Lymphocytes # (test code = Lymphocytes 4.0 1.0-5.5 #) [facility] RegionalJcbnpzbDELONJFIUU0350-19-03 03:40:00 Test Item Value Reference Range Interpretation Comments Monocytes # (test code 0.8 See_Comment [Aut omated message] The = Monocytes #) system which generated this result tra nsmitted reference range : <=0.8. The reference r natasha was not used to int erpret this result as normal/abnormal . [facility] RegionalZcuvjqyDMPVKDCMQB7615-39-29 03:40:00 Test Item Value Reference Range Interpretation Comments Eosinophils # (test code 0.1 See_Comment [A utomated message] The = Eosinophils #) system whic h generated this result tra nsmitted reference range : <=0.5. The reference r natasha was not used to int erpret this result as normal/abnormal . [facility] RegionalDihpgtvOEJHAJJHIM2590-75-88 03:40:00 Test Item Value Reference Range Interpretation Comments Basophils # (test code 0.2 See_Comment [Aut omated message] The = Basophils #) system which generated this result tra nsmitted reference range : <=0.2. The reference r natasha was not used to int erpret this result as normal/abnormal . [facility] RegionalHqimhtwDOBOWAGASE8937-69-01 03:40:00 Test Item Value Reference Range Interpretation Comments Segs (test code = Segs) 67.1 45.0-75.0 [facility] RegionalXqscpgeGXDANJBUOL2298-34-74 03:40:00 Test Item Value Reference Range Interpretation Comments Lymphocytes (test code = Lymphocytes) 26.0 20.0-40.0 [facility] RegionalAfybwhuZFSPQATQUE0109-95-57 03:40:00 Test Item Value Reference Range Interpretation Comments Monocytes (test code = Monocytes) 5.3 2.0-12.0 [facility] RegionalDsgbrjmIPTXALWCRL0212-86-54 03:40:00 Test Item Value Reference Range Interpretation Comments RDW (test code = RDW) 12.8 11.5-14.5 [facility] RegionalUyqsmlzAWXKFVPIJM3351-32-96 03:40:00 Test Item Value Reference Range Interpretation Comments Platelet (test code = Platelet) 189 133-450 [facility] RegionalXnitejzUOLQILUEEL8159-57-71 03:40:00 Test Item Value Reference Range Interpretation Comments MPV (test code = MPV) 6.1 7.4-10.4 [facility] RegionalTwxwlzcHWOTOQNPMQ2577-61-07 03:40:00 Test Item Value Reference Range Interpretation Comments Hgb (test code = Hgb) 15.9 14.0-18.0 [facility] RegionalKzvslndSVOLFUXPYI3489-94-88 03:40:00 Test Item Value Reference Range Interpretation Comments Hct (test code = Hct) 45.4 42.0-54.0 [facility] RegionalUgtfcslDPFZCADHUT4304-61-31 03:40:00 Test Item Value Reference Range Interpretation Comments MCV (test code = MCV) 95.1 80.0-94.0 [facility] RegionalLicozjqDCSTZDZRMK4099-69-98 03:40:00 Test Item Value Reference Range Interpretation Comments MCH (test code = MCH) 33.3 pg 27.0-31.0 [facility] RegionalOzpsakuUCXCWXGDFN2818-86-34 03:40:00 Test Item Value Reference Range Interpretation Comments MCHC (test code = MCHC) 35.0 32.0-36.0 [facility] RegionalKimmdieDIAYWAKXKT8831-72-50 03:40:00 Test Item Value Reference Range Interpretation Comments WBC (test code = WBC) 15.6 3.7-10.4 [facility] RegionalNdoaaubFPJAFSRDLE5151-60-39 03:40:00 Test Item Value Reference Range Interpretation Comments RBC (test code = RBC) 4.77 4.70-6.10 [facility] RegionalSqkkdhfHMKCLDHUEE9234-34-59 03:40:00 Test Item Value Reference Range Interpretation Comments G-value Rapid (test code = G-value 3.7 5.0-11.6 Rapid) [facility] RegionalUiahofmCBRFLRFFDS7692-75-81 03:40:00 Test Item Value Reference Range Interpretation Comments Max Amplitude Rapid (test code = Max 42 mm 52-71 Amplitude Rapid) [facility] RegionalCeordwwQKCXSKXRUD1784-34-66 03:40:00 Test Item Value Reference Range Interpretation Comments Estimated % Lysis Rapid 3.4 See_Comment [Au tomated message] The (test code = Estimated syste m which generated % Lysis Rapid) this result t ransmitted reference range : <=7.5. The reference r natasha was not used to int erpret this result as normal/abnormal . [facility] RegionalNtjrgrrEEIJFQFXBB3480-29-54 03:40:00 Test Item Value Reference Range Interpretation Comments Split Point Rapid (test code = Split 0.7 min Point Rapid) [facility] RegionalDnsuuqcXLROZHLGMT4345-14-36 03:40:00 Test Item Value Reference Range Interpretation Comments R-time Rapid (test code = R-time 1.1 min 0.4-0.7 Rapid) [facility] RegionalVjdwxqtNVNEKOYWQA6747-59-57 03:40:00 Test Item Value Reference Range Interpretation Comments ACT (TEG) Rapid (test code = ACT (TEG) 152 s 86-118 Rapid) [facility] RegionalAtfdsoeJUAEEMQVNT1864-12-91 03:40:00 Test Item Value Reference Range Interpretation Comments K-time Rapid (test code = K-time 4.1 min 0.6-2.3 Rapid) [facility] RegionalMdfxqbcNYZOPTOEWZ1108-38-86 03:40:00 Test Item Value Reference Range Interpretation Comments Angle Rapid (test code = Angle 48 degrees 64-80 Rapid) [place] [id number] 03:40:00 Test Item Value Reference Range Interpretation Comments Etoh (%) (test code = Etoh (%)) 0.148 [place] [id number] 03:40:00 Test Item Value Reference Range Interpretation Comments Ethanol Lvl (test code = Ethanol Lvl) 148 [facility] HospitalUqsruepYJQUFWTZWHOE0799-39-36 03:40:00 Test Item Value Reference Range Interpretation Comments AGAP (test code = AGAP) 18.2 10.0-20.0 [facility] HospitalDzngzinZJUYNGJBYNIB3937-65-07 03:40:00 Test Item Value Reference Range Interpretation Comments eGFR (test code = eGFR) 86 [facility] HospitalAlmvztvGUDHXYEJCMSY4234-21-57 03:40:00 Test Item Value Reference Range Interpretation Comments Sodium Lvl (test code = Sodium Lvl) 137 135-145 [facility] HospitalPjnkodeDCYNETESUXTA5676-58-77 03:40:00 Test Item Value Reference Range Interpretation Comments CO2 (test code = CO2) 24 24-32 [facility] HospitalDoaddkxRGWVTWWEBEIA4080-11-07 03:40:00 Test Item Value Reference Range Interpretation Comments Chloride Lvl (test code = Chloride Lvl) 98 95-109 [facility] HospitalLhpufynLHWULDWUBFKK9273-34-03 03:40:00 Test Item Value Reference Range Interpretation Comments Potassium Lvl (test code = Potassium 3.2 3.5-5.1 Lvl) [facility] HospitalEljnlctHWXPESUQQZJG5224-01-21 03:40:00 Test Item Value Reference Range Interpretation Comments BUN (test code = BUN) 14 7-22 [facility] HospitalJkneuxpGDRSYKRIUZAD5028-26-20 03:40:00 Test Item Value Reference Range Interpretation Comments Glucose Lvl (test code = Glucose Lvl) 80 70-99 [facility] HospitalAouijkhDLOVVOAAQNJA0221-93-43 03:40:00 Test Item Value Reference Range Interpretation Comments Creatinine Lvl (test code = Creatinine 1.15 0.50-1.40 Lvl) [facility] HospitalZjeteurOIMSASJRPVYB9581-30-29 03:40:00 Test Item Value Reference Range Interpretation Comments Calcium Lvl (test code = Calcium Lvl) 9.0 8.5-10.5 [facility] RegionalBgfujycNDPYUJYCJO0800-36-26 03:40:00 Test Item Value Reference Range Interpretation Comments Segs-Bands # (test code = Segs-Bands #) 10.5 1.5-8.1 [facility] RegionalShmittmGJIZBHOONC8101-96-72 03:40:00 Test Item Value Reference Range Interpretation Comments Eosinophils (test code = 0.5 See_Comment [A utomated message] The Eosinophils) system which nerated this result tra nsmitted reference range : <=4.0. The reference r natasha was not used to int erpret this result as normal/abnormal . [facility] RegionalHvweafpIJUTBJDZDP1224-55-12 03:40:00 Test Item Value Reference Range Interpretation Comments Basophils (test code = 1.1 See_Comment [Aut omated message] The Basophils) system which ge nerated this result tra nsmitted reference range : <=1.0. The reference r natasha was not used to int erpret this result as normal/abnormal . [facility] RegionalAxgcpuoTZXAWIHOEU8565-97-47 03:40:00 Test Item Value Reference Range Interpretation Comments Lymphocytes # (test code = Lymphocytes 4.0 1.0-5.5 #) [facility] RegionalHbzbnkdIOGRZNETNR9503-52-63 03:40:00 Test Item Value Reference Range Interpretation Comments Monocytes # (test code 0.8 See_Comment [Aut omated message] The = Monocytes #) system which generated this result tra nsmitted reference range : <=0.8. The reference r natasha was not used to int erpret this result as normal/abnormal . [facility] RegionalIxstrzoZMJCBGOVPP1376-67-06 03:40:00 Test Item Value Reference Range Interpretation Comments Eosinophils # (test code 0.1 See_Comment [A utomated message] The = Eosinophils #) system whic h generated this result tra nsmitted reference range : <=0.5. The reference r natasha was not used to int erpret this result as normal/abnormal . [facility] RegionalPlzdqopRWXRZYPQMJ0950-11-33 03:40:00 Test Item Value Reference Range Interpretation Comments Basophils # (test code 0.2 See_Comment [Aut omated message] The = Basophils #) system which generated this result tra nsmitted reference range : <=0.2. The reference r natasha was not used to int erpret this result as normal/abnormal . [facility] RegionalXletooyKPOOFGFLQI2084-79-26 03:40:00 Test Item Value Reference Range Interpretation Comments Segs (test code = Segs) 67.1 45.0-75.0 [facility] RegionalVjzlczjDDLIKDPLMA7206-45-78 03:40:00 Test Item Value Reference Range Interpretation Comments Lymphocytes (test code = Lymphocytes) 26.0 20.0-40.0 [facility] RegionalKvifcjpYEMJIYFTEW5751-38-65 03:40:00 Test Item Value Reference Range Interpretation Comments Monocytes (test code = Monocytes) 5.3 2.0-12.0 [facility] RegionalEksbojtNJFSOFWLEJ7631-12-57 03:40:00 Test Item Value Reference Range Interpretation Comments RDW (test code = RDW) 12.8 11.5-14.5 [facility] RegionalDitcmytNZRZTOIHTN4125-21-92 03:40:00 Test Item Value Reference Range Interpretation Comments Platelet (test code = Platelet) 189 133-450 [facility] RegionalZcpgpfmTSTFNCLJQW4104-27-05 03:40:00 Test Item Value Reference Range Interpretation Comments MPV (test code = MPV) 6.1 7.4-10.4 [facility] RegionalMywwqhcKXGLFSOCII5616-06-73 03:40:00 Test Item Value Reference Range Interpretation Comments Hgb (test code = Hgb) 15.9 14.0-18.0 [facility] RegionalBdobekiEJLMWDQAHY5606-52-60 03:40:00 Test Item Value Reference Range Interpretation Comments Hct (test code = Hct) 45.4 42.0-54.0 [facility] RegionalFkfhoeeGYLCOSLOOB2411-01-59 03:40:00 Test Item Value Reference Range Interpretation Comments MCV (test code = MCV) 95.1 80.0-94.0 [facility] RegionalXktuzdxWGYCQDPUMP1887-00-73 03:40:00 Test Item Value Reference Range Interpretation Comments MCH (test code = MCH) 33.3 pg 27.0-31.0 [facility] RegionalGxavbvmDNUURTLFSB7982-74-54 03:40:00 Test Item Value Reference Range Interpretation Comments MCHC (test code = MCHC) 35.0 32.0-36.0 [facility] RegionalOkejbllTLCTTMRTIQ1870-59-93 03:40:00 Test Item Value Reference Range Interpretation Comments WBC (test code = WBC) 15.6 3.7-10.4 [facility] RegionalLsgypeyZBONCCBDQJ0660-20-12 03:40:00 Test Item Value Reference Range Interpretation Comments RBC (test code = RBC) 4.77 4.70-6.10 [facility] RegionalLdbvrilKVEVQQAXIN1950-73-72 03:40:00 Test Item Value Reference Range Interpretation Comments G-value Rapid (test code = G-value 3.7 5.0-11.6 Rapid) [facility] RegionalSmurmwyOGEJIOVRWK0395-31-94 03:40:00 Test Item Value Reference Range Interpretation Comments Max Amplitude Rapid (test code = Max 42 mm 52-71 Amplitude Rapid) [facility] RegionalIkzalkiJCWHASBYNL8395-06-52 03:40:00 Test Item Value Reference Range Interpretation Comments Estimated % Lysis Rapid 3.4 See_Comment [Au tomated message] The (test code = Estimated syste m which generated % Lysis Rapid) this result t ransmitted reference range : <=7.5. The reference r natasha was not used to int erpret this result as normal/abnormal . [facility] RegionalIwrcuayYYEUQSJDRD5367-38-82 03:40:00 Test Item Value Reference Range Interpretation Comments Split Point Rapid (test code = Split 0.7 min Point Rapid) [facility] RegionalDdcgijyJYIKLJPMEV5450-70-29 03:40:00 Test Item Value Reference Range Interpretation Comments R-time Rapid (test code = R-time 1.1 min 0.4-0.7 Rapid) [facility] RegionalVzfjyhyUJPBWOBJWT2932-47-11 03:40:00 Test Item Value Reference Range Interpretation Comments ACT (TEG) Rapid (test code = ACT (TEG) 152 s 86-118 Rapid) [facility] RegionalKlavjuoFMSHWLESTB3482-08-54 03:40:00 Test Item Value Reference Range Interpretation Comments K-time Rapid (test code = K-time 4.1 min 0.6-2.3 Rapid) [facility] RegionalQgjcjnxBLULOSKZUE0517-01-33 03:40:00 Test Item Value Reference Range Interpretation Comments Angle Rapid (test code = Angle 48 degrees 64-80 Rapid) [place] [id number] 03:40:00 Test Item Value Reference Range Interpretation Comments Etoh (%) (test code = Etoh (%)) 0.148 [place] [id number] 03:40:00 Test Item Value Reference Range Interpretation Comments Ethanol Lvl (test code = Ethanol Lvl) 148 [facility] HospitalNpvyhdhVLIJHJMHIPQW0954-17-52 03:40:00 Test Item Value Reference Range Interpretation Comments AGAP (test code = AGAP) 18.2 10.0-20.0 [facility] HospitalTutlbntTIJUVZDCPZOX4507-23-16 03:40:00 Test Item Value Reference Range Interpretation Comments eGFR (test code = eGFR) 86 [facility] HospitalKxwngpyUBZOUOJIZBPN7855-19-99 03:40:00 Test Item Value Reference Range Interpretation Comments Sodium Lvl (test code = Sodium Lvl) 137 135-145 [facility] HospitalKuzjeliERWMGPSQBEKM9084-72-38 03:40:00 Test Item Value Reference Range Interpretation Comments CO2 (test code = CO2) 24 24-32 [facility] HospitalBncdlylVDECXWXKUBFB4542-28-36 03:40:00 Test Item Value Reference Range Interpretation Comments Chloride Lvl (test code = Chloride Lvl) 98 95-109 [facility] HospitalDrpdfohMYLGDTEESXFY7446-30-22 03:40:00 Test Item Value Reference Range Interpretation Comments Potassium Lvl (test code = Potassium 3.2 3.5-5.1 Lvl) [facility] HospitalBhczmrzLDLUJUVKYTWS2268-93-76 03:40:00 Test Item Value Reference Range Interpretation Comments BUN (test code = BUN) 14 7-22 [facility] HospitalDglkbmsJOSEZIGJWGKK4628-57-07 03:40:00 Test Item Value Reference Range Interpretation Comments Glucose Lvl (test code = Glucose Lvl) 80 70-99 [facility] HospitalBlwxethHTQUNFXEVJNE2037-15-17 03:40:00 Test Item Value Reference Range Interpretation Comments Creatinine Lvl (test code = Creatinine 1.15 0.50-1.40 Lvl) [facility] HospitalZfhycsdOSITVDDUAJYV8364-70-10 03:40:00 Test Item Value Reference Range Interpretation Comments Calcium Lvl (test code = Calcium Lvl) 9.0 8.5-10.5 [facility] RegionalBzlzxisNZANPNLSKY4222-88-60 03:40:00 Test Item Value Reference Range Interpretation Comments Segs-Bands # (test code = Segs-Bands #) 10.5 1.5-8.1 [facility] RegionalFcrndadNKGERSIKEP7818-75-97 03:40:00 Test Item Value Reference Range Interpretation Comments Eosinophils (test code = 0.5 See_Comment [A utomated message] The Eosinophils) system which ge nerated this result tra nsmitted reference range : <=4.0. The reference r natasha was not used to int erpret this result as normal/abnormal . [facility] RegionalIivyouxPKKEYHCYXF1830-44-11 03:40:00 Test Item Value Reference Range Interpretation Comments Basophils (test code = 1.1 See_Comment [Aut omated message] The Basophils) system which ge nerated this result tra nsmitted reference range : <=1.0. The reference r natasha was not used to int erpret this result as normal/abnormal . [facility] RegionalZxruxwtQTCLVUFMEC4142-51-65 03:40:00 Test Item Value Reference Range Interpretation Comments Lymphocytes # (test code = Lymphocytes 4.0 1.0-5.5 #) [facility] RegionalVaisncrIELWLVFWVX8552-76-85 03:40:00 Test Item Value Reference Range Interpretation Comments Monocytes # (test code 0.8 See_Comment [Aut omated message] The = Monocytes #) system which generated this result tra nsmitted reference range : <=0.8. The reference r natasha was not used to int erpret this result as normal/abnormal . [facility] RegionalIprdhpsZZSEIKOIQW7233-72-74 03:40:00 Test Item Value Reference Range Interpretation Comments Eosinophils # (test code 0.1 See_Comment [A utomated message] The = Eosinophils #) system whic h generated this result tra nsmitted reference range : <=0.5. The reference r natasha was not used to int erpret this result as normal/abnormal . [facility] RegionalIunxyqhCCALPGQWUY0799-86-84 03:40:00 Test Item Value Reference Range Interpretation Comments Basophils # (test code 0.2 See_Comment [Aut omated message] The = Basophils #) system which generated this result tra nsmitted reference range : <=0.2. The reference r natasha was not used to int erpret this result as normal/abnormal . [facility] RegionalZflkfzyNODTTKMBIT9193-07-08 03:40:00 Test Item Value Reference Range Interpretation Comments Segs (test code = Segs) 67.1 45.0-75.0 [facility] RegionalMdhxqakRMCGIXSHZQ2983-32-97 03:40:00 Test Item Value Reference Range Interpretation Comments Lymphocytes (test code = Lymphocytes) 26.0 20.0-40.0 [facility] RegionalOymotbkMUWMRQRDJG9356-02-44 03:40:00 Test Item Value Reference Range Interpretation Comments Monocytes (test code = Monocytes) 5.3 2.0-12.0 [facility] RegionalSmxexbzVZPUXLMWFC6209-06-38 03:40:00 Test Item Value Reference Range Interpretation Comments RDW (test code = RDW) 12.8 11.5-14.5 [facility] RegionalDrhycxuKJWBZBWZHX5403-52-60 03:40:00 Test Item Value Reference Range Interpretation Comments Platelet (test code = Platelet) 189 133-450 [facility] RegionalMuspgcjZFJTJXMAHU5371-67-60 03:40:00 Test Item Value Reference Range Interpretation Comments MPV (test code = MPV) 6.1 7.4-10.4 [facility] RegionalHhtopjuXCKKKGYMCQ0475-38-16 03:40:00 Test Item Value Reference Range Interpretation Comments Hgb (test code = Hgb) 15.9 14.0-18.0 [facility] RegionalZnleizyAJOBERKEDJ5512-26-71 03:40:00 Test Item Value Reference Range Interpretation Comments Hct (test code = Hct) 45.4 42.0-54.0 [facility] RegionalYloeglsPHSFWUMAIY9649-98-46 03:40:00 Test Item Value Reference Range Interpretation Comments MCV (test code = MCV) 95.1 80.0-94.0 [facility] RegionalRdxzzooFGAHVTQNKR8336-19-31 03:40:00 Test Item Value Reference Range Interpretation Comments MCH (test code = MCH) 33.3 pg 27.0-31.0 [facility] RegionalKkayrxvMMBXXVONYB7207-94-81 03:40:00 Test Item Value Reference Range Interpretation Comments MCHC (test code = MCHC) 35.0 32.0-36.0 [facility] RegionalTrhjrcmMKLINCWLMR1000-30-78 03:40:00 Test Item Value Reference Range Interpretation Comments WBC (test code = WBC) 15.6 3.7-10.4 [facility] RegionalYmiwxcgOOFMYBCUQW6948-74-14 03:40:00 Test Item Value Reference Range Interpretation Comments RBC (test code = RBC) 4.77 4.70-6.10 [facility] RegionalKxlscevSKNHUZYKRB0568-04-10 03:40:00 Test Item Value Reference Range Interpretation Comments G-value Rapid (test code = G-value 3.7 5.0-11.6 Rapid) [facility] RegionalVeitphkRMOLEGSGZG5812-57-81 03:40:00 Test Item Value Reference Range Interpretation Comments Max Amplitude Rapid (test code = Max 42 mm 52-71 Amplitude Rapid) [facility] RegionalXvdyjvlDQTLDCHLLD4304-72-14 03:40:00 Test Item Value Reference Range Interpretation Comments Estimated % Lysis Rapid 3.4 See_Comment [Au tomated message] The (test code = Estimated syste m which generated % Lysis Rapid) this result t ransmitted reference range : <=7.5. The reference r natasha was not used to int erpret this result as normal/abnormal . [facility] RegionalJfnrkdlNPAMKJAISH0558-35-49 03:40:00 Test Item Value Reference Range Interpretation Comments Split Point Rapid (test code = Split 0.7 min Point Rapid) [facility] RegionalYimmbhpLPZPTWCSJI8197-04-38 03:40:00 Test Item Value Reference Range Interpretation Comments R-time Rapid (test code = R-time 1.1 min 0.4-0.7 Rapid) [facility] RegionalWkpwmxyUGMGDAEYNP9288-27-81 03:40:00 Test Item Value Reference Range Interpretation Comments ACT (TEG) Rapid (test code = ACT (TEG) 152 s 86-118 Rapid) [facility] RegionalCxswatkMUIHCVJHJA5785-37-40 03:40:00 Test Item Value Reference Range Interpretation Comments K-time Rapid (test code = K-time 4.1 min 0.6-2.3 Rapid) [facility]OgkqmdfSFCELFKFPT3182-54-31 03:40:00 Test Item Value Reference Range Interpretation Comments Angle Rapid (test code = Angle 48 degrees 64-80 Rapid) [place] [id number] 03:40:00 Test Item Value Reference Range Interpretation Comments Etoh (%) (test code = Etoh (%)) 0.148 [place] [id number] 03:40:00 Test Item Value Reference Range Interpretation Comments Ethanol Lvl (test code = Ethanol Lvl) 148 [facility] HospitalGtkzactVOTAMYVLWWQG5321-51-72 03:40:00 Test Item Value Reference Range Interpretation Comments AGAP (test code = AGAP) 18.2 10.0-20.0 [facility] HospitalGkoxfxiPFYYIEDXPQBL3622-64-44 03:40:00 Test Item Value Reference Range Interpretation Comments eGFR (test code = eGFR) 86 [facility] HospitalXbhpvumSIOIEYDZDFKR0423-49-73 03:40:00 Test Item Value Reference Range Interpretation Comments Sodium Lvl (test code = Sodium Lvl) 137 135-145 [facility] HospitalYmxbikjXVBTIPUDDCHL6301-27-48 03:40:00 Test Item Value Reference Range Interpretation Comments CO2 (test code = CO2) 24 24-32 [facility] HospitalAvmsvmoLCIBLIIMSBKD4243-22-12 03:40:00 Test Item Value Reference Range Interpretation Comments Chloride Lvl (test code = Chloride Lvl) 98 95-109 [facility] HospitalQoylgbhWDXDPAPTKQEQ8501-89-40 03:40:00 Test Item Value Reference Range Interpretation Comments Potassium Lvl (test code = Potassium 3.2 3.5-5.1 Lvl) [facility] HospitalUvyedtfNCFZCZIQYBMR9338-90-93 03:40:00 Test Item Value Reference Range Interpretation Comments BUN (test code = BUN) 14 7-22 [facility] HospitalCdcrucdTQWXTPPYNHSK7644-93-13 03:40:00 Test Item Value Reference Range Interpretation Comments Glucose Lvl (test code = Glucose Lvl) 80 70-99 [facility] HospitalWxywcjwKUPWQCXRUVOJ5316-75-56 03:40:00 Test Item Value Reference Range Interpretation Comments Creatinine Lvl (test code = Creatinine 1.15 0.50-1.40 Lvl) [facility]AnhjxtpJMPOAHYCQNIR8875-01-68 03:40:00 Test Item Value Reference Range Interpretation Comments Calcium Lvl (test code = Calcium Lvl) 9.0 8.5-10.5 [facility] RegionalVlodmozHWZUSNMJWW4909-08-33 03:40:00 Test Item Value Reference Range Interpretation Comments Segs-Bands # (test code = Segs-Bands #) 10.5 1.5-8.1 [facility] RegionalUolfdmjQUZWSFKVOI1057-47-27 03:40:00 Test Item Value Reference Range Interpretation Comments Eosinophils (test code = 0.5 See_Comment [A utomated message] The Eosinophils) system which ge nerated this result tra nsmitted reference range : <=4.0. The reference r natasha was not used to int erpret this result as normal/abnormal . [facility] RegionalJbthoeoUQTIOKOHOL8872-18-31 03:40:00 Test Item Value Reference Range Interpretation Comments Basophils (test code = 1.1 See_Comment [Aut omated message] The Basophils) system which ge nerated this result tra nsmitted reference range : <=1.0. The reference r natasha was not used to int erpret this result as normal/abnormal . [facility]HrksxciQSFKEUXBUH0175-27-33 03:40:00 Test Item Value Reference Range Interpretation Comments Lymphocytes # (test code = Lymphocytes 4.0 1.0-5.5 #) [facility] RegionalBgpbeftXLUMPFKQAG8245-57-92 03:40:00 Test Item Value Reference Range Interpretation Comments Monocytes # (test code 0.8 See_Comment [Aut omated message] The = Monocytes #) system which generated this result tra nsmitted reference range : <=0.8. The reference r natasha was not used to int erpret this result as normal/abnormal . [facility] RegionalKvjmxbaXZVMXQQYJB7424-10-76 03:40:00 Test Item Value Reference Range Interpretation Comments Eosinophils # (test code 0.1 See_Comment [A utomated message] The = Eosinophils #) system whic h generated this result tra nsmitted reference range : <=0.5. The reference r natasha was not used to int erpret this result as normal/abnormal . [facility] RegionalTzsopodWNWBTAUXEJ0653-11-49 03:40:00 Test Item Value Reference Range Interpretation Comments Basophils # (test code 0.2 See_Comment [Aut omated message] The = Basophils #) system which generated this result tra nsmitted reference range : <=0.2. The reference r natasha was not used to int erpret this result as normal/abnormal . [facility] RegionalHhixjcjAKKUMNWPZW9887-54-07 03:40:00 Test Item Value Reference Range Interpretation Comments Segs (test code = Segs) 67.1 45.0-75.0 [facility] RegionalFdkioroMAYJYXLMUX0471-79-17 03:40:00 Test Item Value Reference Range Interpretation Comments Lymphocytes (test code = Lymphocytes) 26.0 20.0-40.0 [facility] RegionalAquazncPZTCUXDXMH8891-74-27 03:40:00 Test Item Value Reference Range Interpretation Comments Monocytes (test code = Monocytes) 5.3 2.0-12.0 [facility] RegionalNnqcyjmCTCTJYUFWY9784-60-45 03:40:00 Test Item Value Reference Range Interpretation Comments RDW (test code = RDW) 12.8 11.5-14.5 [facility] RegionalDwqhirqFZPOSTOBWE1736-81-63 03:40:00 Test Item Value Reference Range Interpretation Comments Platelet (test code = Platelet) 189 133-450 [facility] RegionalZzrhaidJTICCXTIZY5063-64-20 03:40:00 Test Item Value Reference Range Interpretation Comments MPV (test code = MPV) 6.1 7.4-10.4 [facility] RegionalCwgdjjfJTYTSDCUMV2068-32-88 03:40:00 Test Item Value Reference Range Interpretation Comments Hgb (test code = Hgb) 15.9 14.0-18.0 [facility] RegionalHwtkjuwHDNXJZNRAF0569-59-99 03:40:00 Test Item Value Reference Range Interpretation Comments Hct (test code = Hct) 45.4 42.0-54.0 [facility] RegionalBnwnelxZPTIIPYQAX3761-39-53 03:40:00 Test Item Value Reference Range Interpretation Comments MCV (test code = MCV) 95.1 80.0-94.0 [facility] RegionalQxvjwxpALAXXQRITQ5239-90-52 03:40:00 Test Item Value Reference Range Interpretation Comments MCH (test code = MCH) 33.3 pg 27.0-31.0 [facility] RegionalCkjxvpyGNTWXSTATZ1707-72-12 03:40:00 Test Item Value Reference Range Interpretation Comments MCHC (test code = MCHC) 35.0 32.0-36.0 [facility] RegionalGvruogmHBZVKEXQOA9113-09-79 03:40:00 Test Item Value Reference Range Interpretation Comments WBC (test code = WBC) 15.6 3.7-10.4 [facility] RegionalXmauigcCFWPEZWHME7133-39-50 03:40:00 Test Item Value Reference Range Interpretation Comments RBC (test code = RBC) 4.77 4.70-6.10 [facility] RegionalXsuohgnYDTDWQQGGC3899-03-81 03:40:00 Test Item Value Reference Range Interpretation Comments G-value Rapid (test code = G-value 3.7 5.0-11.6 Rapid) [facility] RegionalIakgvynCNAAVDBQLE6234-98-33 03:40:00 Test Item Value Reference Range Interpretation Comments Max Amplitude Rapid (test code = Max 42 mm 52-71 Amplitude Rapid) [facility] RegionalBbuuaxiHBTSVCWJQX4283-97-22 03:40:00 Test Item Value Reference Range Interpretation Comments Estimated % Lysis Rapid 3.4 See_Comment [Au tomated message] The (test code = Estimated syste m which generated % Lysis Rapid) this result t ransmitted reference range : <=7.5. The reference r natasha was not used to int erpret this result as normal/abnormal . [facility] RegionalWricjgnVPZUDZJLUN6900-23-78 03:40:00 Test Item Value Reference Range Interpretation Comments Split Point Rapid (test code = Split 0.7 min Point Rapid) [facility] RegionalBggzkjlTARKPAZFXZ9262-08-23 03:40:00 Test Item Value Reference Range Interpretation Comments R-time Rapid (test code = R-time 1.1 min 0.4-0.7 Rapid) [facility] RegionalGpyhrzvPCJFSIYLJP3150-89-92 03:40:00 Test Item Value Reference Range Interpretation Comments ACT (TEG) Rapid (test code = ACT (TEG) 152 s 86-118 Rapid) [facility] RegionalFehyrlhBZYXFKHOOU9706-58-52 03:40:00 Test Item Value Reference Range Interpretation Comments K-time Rapid (test code = K-time 4.1 min 0.6-2.3 Rapid) [facility] RegionalFpzxlhzHNNGCUUEPX6023-75-99 03:40:00 Test Item Value Reference Range Interpretation Comments Angle Rapid (test code = Angle 48 degrees 64-80 Rapid) [facility]VcigiwjWEACXCCYEB0622-30-16 03:40:00 Test Item Value Reference Range Interpretation Comments Etoh (%) (test code = Etoh (%)) 0.148 [facility]NaprxilYFSIZMUYOB0158-99-65 03:40:00 Test Item Value Reference Range Interpretation Comments Ethanol Lvl (test code = Ethanol Lvl) 148 [facility]RkjfwhhCTPDYMEKPTAL1741-93-62 03:40:00 Test Item Value Reference Range Interpretation Comments AGAP (test code = AGAP) 18.2 10.0-20.0 [facility] HospitalSpkghsiBKFOHMBOQLBC5475-75-16 03:40:00 Test Item Value Reference Range Interpretation Comments eGFR (test code = eGFR) 86 [facility] HospitalQtnnfetHHZEAXGQNZWH3516-50-70 03:40:00 Test Item Value Reference Range Interpretation Comments Sodium Lvl (test code = Sodium Lvl) 137 135-145 [facility] HospitalKmtwkiyWNXHIVXKSALT8214-12-94 03:40:00 Test Item Value Reference Range Interpretation Comments CO2 (test code = CO2) 24 24-32 [facility] HospitalPggglbfEWVORHGUYDRN4733-65-41 03:40:00 Test Item Value Reference Range Interpretation Comments Chloride Lvl (test code = Chloride Lvl) 98 95-109 [facility] HospitalFzfkhzuQJCJCGWCOBIB1884-78-23 03:40:00 Test Item Value Reference Range Interpretation Comments Potassium Lvl (test code = Potassium 3.2 3.5-5.1 Lvl) [facility] HospitalUujmpvlGLAVLKINXZZY4688-81-80 03:40:00 Test Item Value Reference Range Interpretation Comments BUN (test code = BUN) 14 7-22 [facility] HospitalVgdgrjgPUMKRHUYQWYQ3959-92-74 03:40:00 Test Item Value Reference Range Interpretation Comments Glucose Lvl (test code = Glucose Lvl) 80 70-99 [facility] HospitalAjzgpkzUSATOFDVNYQQ4227-37-22 03:40:00 Test Item Value Reference Range Interpretation Comments Creatinine Lvl (test code = Creatinine 1.15 0.50-1.40 Lvl) [facility] HospitalSrhylxnGKWCZGLSPIOO2128-16-90 03:40:00 Test Item Value Reference Range Interpretation Comments Calcium Lvl (test code = Calcium Lvl) 9.0 8.5-10.5 [facility] RegionalXgtgvhaKVAMDLVERK7576-07-81 03:40:00 Test Item Value Reference Range Interpretation Comments Segs-Bands # (test code = Segs-Bands #) 10.5 1.5-8.1 [facility] RegionalMjpouzbZIRHNAESLC5223-53-27 03:40:00 Test Item Value Reference Range Interpretation Comments Eosinophils (test code = 0.5 See_Comment [A utomated message] The Eosinophils) system which ge nerated this result tra nsmitted reference range : <=4.0. The reference r natasha was not used to int erpret this result as normal/abnormal . [facility] RegionalLbzmmwfMQSLMFKHFN1473-72-96 03:40:00 Test Item Value Reference Range Interpretation Comments Basophils (test code = 1.1 See_Comment [Aut omated message] The Basophils) system which ge nerated this result tra nsmitted reference range : <=1.0. The reference r natasha was not used to int erpret this result as normal/abnormal . [facility] RegionalIiceznxFERKIFPZMJ6477-42-83 03:40:00 Test Item Value Reference Range Interpretation Comments Lymphocytes # (test code = Lymphocytes 4.0 1.0-5.5 #) [facility] RegionalHboxsukKVSCJTISKM8499-61-41 03:40:00 Test Item Value Reference Range Interpretation Comments Monocytes # (test code 0.8 See_Comment [Aut omated message] The = Monocytes #) system which generated this result tra nsmitted reference range : <=0.8. The reference r natasha was not used to int erpret this result as normal/abnormal . [facility] RegionalMcrgxfrTESNTVOYWR0025-77-35 03:40:00 Test Item Value Reference Range Interpretation Comments Eosinophils # (test code 0.1 See_Comment [A utomated message] The = Eosinophils #) system whic h generated this result tra nsmitted reference range : <=0.5. The reference r natasha was not used to int erpret this result as normal/abnormal . [facility] RegionalEuzrimyPTUDMNIDZA7317-45-63 03:40:00 Test Item Value Reference Range Interpretation Comments Basophils # (test code 0.2 See_Comment [Aut omated message] The = Basophils #) system which generated this result tra nsmitted reference range : <=0.2. The reference r natasha was not used to int erpret this result as normal/abnormal . [facility] RegionalEhdspdgFGPNEKRKMN2920-97-64 03:40:00 Test Item Value Reference Range Interpretation Comments Segs (test code = Segs) 67.1 45.0-75.0 [facility] RegionalIcibyliUZQBFQAVON3209-16-36 03:40:00 Test Item Value Reference Range Interpretation Comments Lymphocytes (test code = Lymphocytes) 26.0 20.0-40.0 [facility] RegionalWhqibxvHPKPJSJSGF9625-05-68 03:40:00 Test Item Value Reference Range Interpretation Comments Monocytes (test code = Monocytes) 5.3 2.0-12.0 [facility] RegionalQrmnxoyRDAKIONTQJ6482-77-78 03:40:00 Test Item Value Reference Range Interpretation Comments RDW (test code = RDW) 12.8 11.5-14.5 [facility] RegionalZhqifofHOGJWLMZRQ7408-64-13 03:40:00 Test Item Value Reference Range Interpretation Comments Platelet (test code = Platelet) 189 133-450 [facility] RegionalTgyxhycGBHBFRHDFY6193-76-26 03:40:00 Test Item Value Reference Range Interpretation Comments MPV (test code = MPV) 6.1 7.4-10.4 [facility] RegionalQoknvxxCEECOJFBIS9321-78-40 03:40:00 Test Item Value Reference Range Interpretation Comments Hgb (test code = Hgb) 15.9 14.0-18.0 [facility] RegionalOohhxypMBIXECOSKW9884-35-14 03:40:00 Test Item Value Reference Range Interpretation Comments Hct (test code = Hct) 45.4 42.0-54.0 [facility] RegionalEbhfoylGYANTZJAIO6625-37-64 03:40:00 Test Item Value Reference Range Interpretation Comments MCV (test code = MCV) 95.1 80.0-94.0 [facility] RegionalBbjhpmmENOBBZIPHQ2301-29-42 03:40:00 Test Item Value Reference Range Interpretation Comments MCH (test code = MCH) 33.3 pg 27.0-31.0 [facility] RegionalHisafovDQABUYSLSC3954-94-46 03:40:00 Test Item Value Reference Range Interpretation Comments MCHC (test code = MCHC) 35.0 32.0-36.0 [facility] RegionalGxzyhpkRYVVMTXKHU7194-68-16 03:40:00 Test Item Value Reference Range Interpretation Comments WBC (test code = WBC) 15.6 3.7-10.4 [facility] RegionalOyvqhynIZIQIKBBQR2844-40-00 03:40:00 Test Item Value Reference Range Interpretation Comments RBC (test code = RBC) 4.77 4.70-6.10 [facility] RegionalZggzgfcUAZGFVHFCI1201-50-22 03:40:00 Test Item Value Reference Range Interpretation Comments G-value Rapid (test code = G-value 3.7 5.0-11.6 Rapid) [facility] RegionalJdpmzjpXZZEDAROSG7975-26-15 03:40:00 Test Item Value Reference Range Interpretation Comments Max Amplitude Rapid (test code = Max 42 mm 52-71 Amplitude Rapid) [facility] RegionalErbzoyhSVQFAPJPKJ5438-03-20 03:40:00 Test Item Value Reference Range Interpretation Comments Estimated % Lysis Rapid 3.4 See_Comment [Au tomated message] The (test code = Estimated syste m which generated % Lysis Rapid) this result t ransmitted reference range : <=7.5. The reference r natasha was not used to int erpret this result as normal/abnormal . [facility] RegionalEecsjspKCFVXMADDX4155-08-56 03:40:00 Test Item Value Reference Range Interpretation Comments Split Point Rapid (test code = Split 0.7 min Point Rapid) [facility] RegionalEfzbmfwCSNHRUKHLE9966-89-49 03:40:00 Test Item Value Reference Range Interpretation Comments R-time Rapid (test code = R-time 1.1 min 0.4-0.7 Rapid) [facility] RegionalRajhxobOWTITMFMWQ4700-70-84 03:40:00 Test Item Value Reference Range Interpretation Comments ACT (TEG) Rapid (test code = ACT (TEG) 152 s 86-118 Rapid) [facility] RegionalDncwujaDOLJKGDLMV7223-07-21 03:40:00 Test Item Value Reference Range Interpretation Comments K-time Rapid (test code = K-time 4.1 min 0.6-2.3 Rapid) [facility] RegionalItlloppZQPABOHWZQ7571-67-66 03:40:00 Test Item Value Reference Range Interpretation Comments Angle Rapid (test code = Angle 48 degrees 64-80 Rapid) [facility] CenterRyhggmzZIDPNFWXYD0490-50-12 03:40:00 Test Item Value Reference Range Interpretation Comments Etoh (%) (test code = Etoh (%)) 0.148 [facility] CenterPvqyulqXYGMHQLRRU8681-73-68 03:40:00 Test Item Value Reference Range Interpretation Comments Ethanol Lvl (test code = Ethanol Lvl) 148 [facility] PZQLAWG0753-80-53 03:38:00 Test Item Value Reference Range Interpretation Comments ABO/Rh (test code = ABO/Rh) O NEG [facility] QZBGXWM7979-98-54 03:38:00 Test Item Value Reference Range Interpretation Comments Antibody Scrn (test Negative (11/09/16 9:38 code = Antibody Scrn) PM) [facility] MJHJVBJ9709-34-47 03:38:00 Test Item Value Reference Range Interpretation Comments ABO/Rh (test code = ABO/Rh) O NEG [facility] NLBZUZQ9734-67-28 03:38:00 Test Item Value Reference Range Interpretation Comments Antibody Scrn (test Negative (11/09/16 9:38 code = Antibody Scrn) PM) [facility] [id number] 03:38:00 Test Item Value Reference Range Interpretation Comments ABO/Rh (test code = ABO/Rh) O NEG [facility] AFMOKFB0497-04-03 03:38:00 Test Item Value Reference Range Interpretation Comments Antibody Scrn (test Negative (11/09/16 9:38 code = Antibody Scrn) PM) [facility] OGNHPXR2347-52-27 03:38:00 Test Item Value Reference Range Interpretation Comments ABO/Rh (test code = ABO/Rh) O NEG [facility] [id number] 03:38:00 Test Item Value Reference Range Interpretation Comments Antibody Scrn (test Negative (11/09/16 9:38 code = Antibody Scrn) PM) [facility] [id number] 03:38:00 Test Item Value Reference Range Interpretation Comments ABO/Rh (test code = ABO/Rh) O NEG [facility] [id number] 03:38:00 Test Item Value Reference Range Interpretation Comments Antibody Scrn (test Negative (11/09/16 9:38 code = Antibody Scrn) PM) [facility] [id number] 03:38:00 Test Item Value Reference Range Interpretation Comments ABO/Rh (test code = ABO/Rh) O NEG [facility] [id number] 03:38:00 Test Item Value Reference Range Interpretation Comments Antibody Scrn (test Negative (11/09/16 9:38 code = Antibody Scrn) PM) [facility] [id number] 03:38:00 Test Item Value Reference Range Interpretation Comments ABO/Rh (test code = ABO/Rh) O NEG [facility] [id number] 03:38:00 Test Item Value Reference Range Interpretation Comments Antibody Scrn (test Negative (11/09/16 9:38 code = Antibody Scrn) PM) [facility] [id number] 03:38:00 Test Item Value Reference Range Interpretation Comments ABO/Rh (test code = ABO/Rh) O NEG [facility] [id number] 03:38:00 Test Item Value Reference Range Interpretation Comments Antibody Scrn (test Negative (11/09/16 9:38 code = Antibody Scrn) PM) [facility] [id number] 03:38:00 Test Item Value Reference Range Interpretation Comments ABO/Rh (test code = ABO/Rh) O NEG [facility] [id number] 03:38:00 Test Item Value Reference Range Interpretation Comments Antibody Scrn (test Negative (11/09/16 9:38 code = Antibody Scrn) PM) [employer] [facility] Date/Time Note Provider Source 2016-12-19 EXAM: XR LEFT ANKLE 2 VIEWS [facility] [employer] 12:05:22-00:00 DATE: 12/19/2016 9:22 AM CDT [facility] INDICATION: Fracture - LT ANKLE POSTOP [...] 2016-12-19 EXAM: XR LEFT ANKLE 2 VIEWS [facility] [employer] 12:05:22-00:00 DATE: 12/19/2016 9:22 AM CDT Cent er INDICATION: Fracture - LT ANKLE POSTOP [...] 2016-12-19 EXAM: XR LEFT ANKLE 2 VIEWS [facility] 12:05:22-00:00 DATE: 12/19/2016 9:22 AM T [facility] er INDICATION: Fracture - LT ANKLE [...] 2016-11-18 EXAM: XR LEFT TIBIA-FIBULA 2 VIEWS [facility] 19:11:00-00:00 EXAM: XR LEFT ANKLE 3 VIEWS [facility] er EXAM: XR LEFT FOOT 3 VIEWS DATE: 11/18/2016 6:58 PM [facility] INDICATION: Pain, Trauma COMPARISON: X-ray left ankle [...] 2016-11-18 EXAM: XR LEFT TIBIA-FIBULA 2 VIEWS [facility] 19:11:00-00:00 EXAM: XR LEFT ANKLE 3 VIEWS Cent er EXAM: XR LEFT FOOT 3 VIEWS DATE: 11/18/2016 6:58 PM [facility] INDICATION: Pain, Trauma COMPARISON: X-ray left ankle [...] 2016-11-18 EXAM: XR LEFT TIBIA-FIBULA 2 VIEWS [facility] 19:11:00-00:00 EXAM: XR LEFT ANKLE 3 VIEWS [facility] EXAM: XR LEFT FOOT 3 VIEWS DATE: 11/18/2016 6:58 PM [facility] INDICATION: Pain, Trauma COMPARISON: X-ray left ankle [...] 2016-11-18 EXAM: XR LEFT TIBIA-FIBULA 2 VIEWS [facility] 19:11:00-00:00 EXAM: XR LEFT ANKLE 3 VIEWS Cent er EXAM: XR LEFT FOOT 3 VIEWS DATE: 11/18/2016 6:58 PM [facility] INDICATION: Pain, Trauma COMPARISON: X-ray left ankle [...] 2016-11-18 EXAM: XR LEFT TIBIA-FIBULA 2 VIEWS [facility] 19:11:00-00:00 EXAM: XR LEFT ANKLE 3 VIEWS [facility] er EXAM: XR LEFT FOOT 3 VIEWS DATE: 11/18/2016 6:58 PM [facility] INDICATION: Pain, Trauma COMPARISON: X-ray left ankle [...] 2016-11-18 EXAM: XR LEFT TIBIA-FIBULA 2 VIEWS [facility] 19:11:00-00:00 EXAM: XR LEFT ANKLE 3 [facility]IEWS [facility] EXAM: XR LEFT FOOT 3 VIEWS DATE: 11/18/2016 6:58 PM [facility] INDICATION: Pain, Trauma COMPARISON: X-ray left ankle [...] 2016-11-18 EXAM: XR LEFT TIBIA-FIBULA 2 VIEWS [facility] 19:11:00-00:00 EXAM: XR LEFT ANKLE 3 VIEWS [facility] er EXAM: XR LEFT FOOT 3 VIEWS DATE: 11/18/2016 6:58 PM [facility] INDICATION: Pain, Trauma COMPARISON: X-ray left ankle [...] 2016-11-18 EXAM: XR LEFT TIBIA-FIBULA 2 VIEWS [facility] 19:11:00-00:00 EXAM: XR LEFT ANKLE 3 [facility]WS [facility] EXAM: XR LEFT FOOT 3 VIEWS DATE: 11/18/2016 6:58 PM [facility] INDICATION: Pain, Trauma COMPARISON: X-ray left ankle [...] 2016-11-18 EXAM: XR LEFT TIBIA-FIBULA 2 VIEWS [facility] 19:11:00-00:00 EXAM: XR LEFT ANKLE 3 VIEWS [facility] EXAM: XR LEFT FOOT 3 VIEWS DATE: 11/18/2016 6:58 PM [facility] INDICATION: Pain, Trauma COMPARISON: X-ray left ankle [...] 2016-11-12 EXAM: XR LEFT ANKLE 3 VIEWS [facility] 08:20:00-00:00 DATE: 11/12/2016 8:13 AM [facility] Cent er INDICATION: Pain and swelling COMPARISON: [...] 2016-11-12 EXAM: XR LEFT ANKLE 3 VIEWS [facility] 08:20:00-00:00 DATE: 11/12/2016 8:13 AM [facility] Cent er INDICATION: Pain and swelling COMPARISON: [...] 2016-11-12 EXAM: XR LEFT ANKLE 3 VIEWS [facility] 08:20:00-00:00 DATE: 11/12/2016 8:13 AM [facility] Cent er INDICATION: Pain and swelling COMPARISON: [...] 2016-11-10 EXAM: XR RIGHT ANKLE 3 VIEWS [facility] 13:50:30-00:00 EXAM: XR RIGHT foot 3 VIEWS Cent er DATE: 11/10/2016 1:34 PM [facility] INDICATION: Pain from a fall COMPARISON: None [...] 2016-11-10 EXAM: XR RIGHT ANKLE 3 VIEWS [facility] 13:50:30-00:00 EXAM: XR RIGHT foot 3 VIEWS Cent er DATE: 11/10/2016 1:34 PM [facility] INDICATION: Pain from a fall COMPARISON: None [...] 2016-11-10 EXAM: XR RIGHT ANKLE 3 VIEWS [facility] 13:50:30-00:00 EXAM: XR RIGHT foot 3 VIEWS Cent er DATE: 11/10/2016 1:34 PM S[facility]ER INDICATION: Pain from a fall COMPARISON: None [...] 2016-11-10 EXAM: XR RIGHT ANKLE 3 VIEWS [facility] 13:50:30-00:00 EXAM: XR RIGHT foot 3 VIEWS Cent er DATE: 11/10/2016 1:34 PM S[facility] [employer]ER INDICATION: Pain from a fall COMPARISON: None [...] 2016-11-10 EXAM: XR RIGHT ANKLE 3 VIEWS [facility] 13:50:30-00:00 EXAM: XR RIGHT foot 3 VIEWS [facility] er DATE: 11/10/2016 1:34 PM SIDE STAPLER INDICATION: Pain from a fall COMPARISON: None [...] 2016-11-10 EXAM: XR RIGHT ANKLE 3 VIEWS [facility] 13:50:30-00:00 EXAM: XR RIGHT foot 3 VIEWS [facility] er DATE: 11/10/2016 1:34 PM SIDE STAP[facility]ER INDICATION: Pain from a fall COMPARISON: None [...] 2016-11-10 EXAM: CT LEFT ANKLE WITHOUT CONTRAST [facility] 10:18:34-00:00 DATE: 11/10/2016 0956 hours Cente r [...] 2016-11-10 EXAM: CT LEFT ANKLE WITHOUT CONTRAST [facility] 10:18:34-00:00 DATE: 11/10/2016 0956 hours Cente r [...] 2016-11-10 EXAM: CT LEFT ANKLE WITHOUT CONTRAST [facility] 10:18:34-00:00 DATE: 11/10/2016 0956 hours Cente r [...] 2016-11-09 EXAM: XR LEFT KNEE 3 VIEWS [facility] 23:40:00-00:00 EXAM: XR LEFT TIBIA-FIBULA 2 VIEWS Center EXAM: XR LEFT ANKLE 3 VIEWS EXAM: XR LEFT FOOT 3 VIEWS DATE: 11/09/2016 11:42 PM [facility] INDICATION: Fracture COMPARISON: None TECHNIQUE: AP, lateral [...] ankle. 4. There is no additional ac samish fracture identified within the left knee or left foot. The left foot is partially obscured by the overlying cast. 5. Generalized, circumferential soft tissue robert a of left ankle. 2016-11-09 EXAM: XR LEFT KNEE 3 VIEWS [facility] 23:40:00-00:00 EXAM: XR LEFT TIBIA-FIBULA 2 VIEWS Center EXAM: XR LEFT ANKLE 3 VIEWS EXAM: XR LEFT FOOT 3 VIEWS DATE: 11/09/2016 11:42 PM [facility]ER INDICATION: Fracture COMPARISON: None TECHNIQUE: AP, lateral [...] ankle. 4. There is no additional ac samish fracture identified within the left knee or left foot. The left foot is partially obscured by the overlying cast. 5. Generalized, circumferential soft tissue robert a of left ankle. 2016-11-09 EXAM: XR LEFT KNEE 3 VIEWS [facility] 23:40:00-00:00 EXAM: XR LEFT TIBIA-FIBULA 2 VIEWS Center EXAM: XR LEFT ANKLE 3 VIEWS EXAM: XR LEFT FOOT 3 VIEWS DATE: 11/09/2016 11:42 PM SIDE STAPLER INDICATION: Fracture COMPARISON: None TECHNIQUE: AP, lateral [...] ankle. 4. There is no additional ac samish fracture identified within the left knee or left foot. The left foot is partially obscured by the overlying cast. 5. Generalized, circumferential soft tissue robert a of left ankle. 2016-11-09 EXAM: XR LEFT KNEE 3 VIEWS [facility] 23:40:00-00:00 EXAM: XR LEFT TIBIA-FIBULA 2 VIEWS Center EXAM: XR LEFT ANKLE 3 VIEWS EXAM: XR LEFT FOOT 3 VIEWS DATE: 11/09/2016 11:42 PM SIDE STAPLER INDICATION: Fracture COMPARISON: None TECHNIQUE: AP, lateral [...] ankle. 4. There is no additional ac samish fracture identified within the left knee or left foot. The left foot is partially obscured by the overlying cast. 5. Generalized, circumferential soft tissue robert a of left ankle. 2016-11-09 EXAM: XR LEFT KNEE 3 VIEWS [facility] 23:40:00-00:00 EXAM: XR LEFT TIBIA-FIBULA 2 VIEWS Center EXAM: XR LEFT ANKLE 3 VIEWS EXAM: XR LEFT FOOT 3 VIEWS DATE: 11/09/2016 11:42 PM SIDE STAPLER INDICATION: Fracture COMPARISON: None TECHNIQUE: AP, lateral [...] ankle. 4. There is no additional ac samish fracture identified within the left knee or left foot. The left foot is partially obscured by the overlying cast. 5. Generalized, circumferential soft tissue robert a of left ankle. 2016-11-09 EXAM: XR LEFT KNEE 3 VIEWS [facility] 23:40:00-00:00 EXAM: XR LEFT TIBIA-FIBULA 2 VIEWS Center EXAM: XR LEFT ANKLE 3 VIEWS EXAM: XR LEFT FOOT 3 VIEWS DATE: 11/09/2016 11:42 PM SIDE STAPLER INDICATION: Fracture COMPARISON: None TECHNIQUE: AP, lateral [...] ankle. 4. There is no additional ac samish fracture identified within the left knee or left foot. The left foot is partially obscured by the overlying cast. 5. Generalized, circumferential soft tissue robert a of left ankle. 2016-11-09 EXAM: XR LEFT KNEE 3 VIEWS [facility] 23:40:00-00:00 EXAM: XR LEFT TIBIA-FIBULA 2 VIEWS Center EXAM: XR LEFT ANKLE 3 VIEWS EXAM: XR LEFT FOOT 3 VIEWS DATE: 11/09/2016 11:42 PM SIDE STAPLER INDICATION: Fracture COMPARISON: None TECHNIQUE: AP, lateral [...] ankle. 4. There is no additional ac samish fracture identified within the left knee or left foot. The left foot is partially obscured by the overlying cast. 5. Generalized, circumferential soft tissue robert a of left ankle. 2016-11-09 EXAM: [facility] EXAM: XR LEFT TIBIA-FIBULA 2 VIEWS Center EXAM: XR LEFT ANKLE 3 VIEWS EXAM: XR LEFT FOOT 3 VIEWS DATE: 11/09/2016 11:42 PM SIDE STAPLER INDICATION: Fracture COMPARISON: None TECHNIQUE: AP, lateral [...] ankle. 4. There is no additional ac samish fracture identified within the left knee or left foot. The left foot is partially obscured by the overlying cast. 5. Generalized, circumferential soft tissue robert a of left ankle. 2016-11-09 EXAM: XR LEFT KNEE 3 VIEWS [facility] nayak [facility] 23:40:00-00:00 EXAM: XR LEFT TIBIA-FIBULA 2 VIEWS Center EXAM: XR LEFT ANKLE 3 VIEWS EXAM: XR LEFT FOOT 3 VIEWS DATE: 11/09/2016 11:42 PM SIDE STAPLER INDICATION: Fracture COMPARISON: None TECHNIQUE: AP, lateral [...] ankle. 4. There is no additional ac samish fracture identified within the left knee or left foot. The left foot is partially obscured by the overlying cast. 5. Generalized, circumferential soft tissue robert a of left ankle. 2016-11-09 EXAM: XR LEFT KNEE 3 VIEWS [facility] nay[facility] 23:40:00-00:00 EXAM: XR LEFT TIBIA-FIBULA 2 VIEWS Center EXAM: XR LEFT ANKLE 3 VIEWS EXAM: XR LEFT FOOT 3 VIEWS DATE: 11/09/2016 11:42 PM SIDE STAPLER INDICATION: Fracture COMPARISON: None TECHNIQUE: AP, lateral [...] ankle. 4. There is no additional ac samish fracture identified within the left knee or left foot. The left foot is partially obscured by the overlying cast. 5. Generalized, circumferential soft tissue robert a of left ankle. 2016-11-09 EXAM: XR LEFT KNEE 3 VIEWS [facility] nayak [facility] 23:40:00-00:00 EXAM: XR LEFT TIBIA-FIBULA 2 VIEWS Center EXAM: XR LEFT ANKLE 3 VIEWS EXAM: XR LEFT FOOT 3 VIEWS DATE: 11/09/2016 11:42 PM SIDE STAPLER INDICATION: Fracture COMPARISON: None TECHNIQUE: AP, lateral [...] ankle. 4. There is no additional ac samish fracture identified within the left knee or left foot. The left foot is partially obscured by the overlying cast. 5. Generalized, circumferential soft tissue robert a of left ankle. 2016-11-09 EXAM: XR LEFT KNEE 3 VIEWS [facility] 23:40:00-00:00 EXAM: XR LEFT TIBIA-FIBULA 2 VIEWS Center EXAM: XR LEFT ANKLE 3 VIEWS EXAM: XR LEFT FOOT 3 VIEWS DATE: 11/09/2016 11:42 PM SIDE STAPLER INDICATION: Fracture COMPARISON: None TECHNIQUE: AP, lateral [...] ankle. 4. There is no additional ac samish fracture identified within the left knee or left foot. The left foot is partially obscured by the overlying cast. 5. Generalized, circumferential soft tissue robert a of left ankle. 2016-11-09 CT HEAD WITHOUT CONTRAST [facility] 22:20:00-00:00 DATE: 06/20/2017 at 10:14 PM. COMPARISON: [...] 2016-11-09 EXAM: CT CERVICAL SPINE WITHOUT CONTRAST [facility] 22:20:00-:00 DATE: 11/09/2016 9:39 PM SIDE STAPLER Cente r INDICATION: trauma COMPARISON: None TECHNIQUE: [...] abnormality of the cervical spine. Multilevel degenerative roldna ges of the cervical spine, worse at C5-C6 with mild bilateral neural foraminal and severe central canal stenosis. Small central disc protrusion at C3-C4. 2016-11-09 EXAM: CT CHEST WITH CONTRAST [facility] 22:20:00-:00 EXAM: CT ABDOMEN AND PELVIS WITH CONTRAST Center DATE: 11/09/2016 9:40 PM SIDE STAPLER INDICATION: trauma COMPARISON: None. TECHNIQUE: Volumetric CT [...] the liver. 2016-11-09 CT HEAD WITHOUT CONTRAST [facility] 22:20:00-00:00 DATE: 06/20/2017 at 10:14 PM. COMPARISON: [...] 2016-11-09 EXAM: CT CERVICAL SPINE WITHOUT CONTRAST [facility] 22:20:00-00:00 DATE: 11/09/2016 9:39 PM SIDE STAPLER Cente r INDICATION: trauma COMPARISON: None TECHNIQUE: [...] C3-C4. 2016-11-09 EXAM: CT CHEST WITH CONTRAST [facility] 22:20:00-00:00 EXAM: CT ABDOMEN AND PELVIS WITH CONTRAST Center DATE: 11/09/2016 9:40 PM SIDE STAPLER INDICATION: trauma COMPARISON: None. TECHNIQUE: Volumetric CT [...] the liver. 2016-11-09 CT HEAD WITHOUT CONTRAST [facility] 22:20:00-00:00 DATE: 06/20/2017 at 10:14 PM. COMPARISON: [...] 2016-11-09 EXAM: CT CERVICAL SPINE WITHOUT CONTRAST [facility] 22:20:00-:00 DATE: 11/09/2016 9:39 PM SIDE STAPLER Cente r INDICATION: trauma COMPARISON: None TECHNIQUE: [...] C3-C4. 2016-11-09 EXAM: CT CHEST WITH CONTRAST [facility] 22:20:00-: EXAM: CT ABDOMEN AND PELVIS WITH CONTRAST Center DATE: 11/09/2016 9:40 PM SIDE STAPLER INDICATION: trauma COMPARISON: None. TECHNIQUE: Volumetric CT [...] 2016-11-09 EXAM: XR PELVIS AP 1 VIEW [facility] 21:22:00-00:00 DATE: 11/09/20162 hours SIDE STAPLER Ce nter INDICATION: trauma COMPARISON: None TECHNIQUE: AP pelvis -- single view. FINDINGS: No fracture, periosteal reaction, or erosions id entified. Joint alignment is normal. Degenerative changes of the hips noted. Soft tissues are unremarkable. IMPRESSION: No fractures identified. 2016-11-09 EXAM: XR LEFT ANKLE 3 VIEWS [facility] 21:22:00-00:00 DATE: 11/09/2016 2122 hours SIDE STAPLER Ce nter INDICATION: trauma COMPARISON: None available [...] 2016-11-09 EXAM: XR CHEST AP 1 VIEW ELVIA limon [facility] 21:22:00-00:00 DATE: 11/09/2016 9:28 PM SIDE STAPLER Cente r INDICATION: trauma COMPARISON: None TECHNIQUE: Chest AP -- 1 View FINDINGS: Cardiac silhouette size is normal. Central pulmonary vascularity is within normal l imits. Mediastinal and hilar contours are normal. No airspace consolidation, pleural effusion, or pneumothorax present. Skeletal structures demonstrate no acute finding s. IMPRESSION: No acute cardiopulmonary abnormality is observed . 2016-11-09 EXAM: XR PELVIS AP 1 VIEW ELVIA sun [facility] 21:22:00-00:00 DATE: 11/09/2016 2122 hours SIDE STAPLER Ce nter INDICATION: trauma COMPARISON: None TECHNIQUE: AP pelvis -- single view. FINDINGS: No fracture, periosteal reaction, or erosions id entified. Joint alignment is normal. Degenerative changes of the hips noted. Soft tissues are unremarkable. IMPRESSION: No fractures identified. 2016-11-09 EXAM: XR LEFT ANKLE 3 VIEWS Jose kaur [facility] 21:22:00-00:00 DATE: 11/09/2016 2122 hours SIDE STAPLER Ce nter INDICATION: trauma COMPARISON: None available [...] 2016-11-09 EXAM: XR CHEST AP 1 VIEW ELVIA limon [facility] 21:22:00-00:00 DATE: 11/09/2016 9:28 PM SIDE STAPLER Cente r INDICATION: trauma COMPARISON: None TECHNIQUE: [...] XR PELVIS AP 1 VIEW [facility] 21:22:00-00:00 DATE: 11/09/2016 2122 hours SIDE STAPLER Ce nter INDICATION: trauma COMPARISON: None TECHNIQUE: AP pelvis -- single view. FINDINGS: No fracture, periosteal reaction, or erosions id entified. Joint alignment is normal. Degenerative changes of the hips noted. Soft tissues are unremarkable. IMPRESSION: No fractures identified. 2016-11-09 EXAM: XR LEFT ANKLE 3 VIEWS Jose kaur [facility] 21:22:00-00:00 DATE: 11/09/2016 2122 hours SIDE STAPLER Ce nter INDICATION: trauma COMPARISON: None available [...] XR CHEST AP 1 VIEW Lilly limon [facility] 21:22:00-00:00 DATE: 11/09/2016 9:28 PM SIDE STAPLER Cente r INDICATION: trauma COMPARISON: None TECHNIQUE: Chest AP -- 1 View FINDINGS: Cardiac silhouette size is normal. Central pulmonary vascularity is within normal l imits. Mediastinal and hilar contours are normal. No airspace consolidation, pleural effusion, or pneumothorax present. Skeletal structures demonstrate no acute finding s.
--- NOTE | 2023-05-29 17:31 | ER ---
Nurse's Notes [facility] Name: Bro Yung Age: 58 yrs Sex: Male : 1965 Arrival Date: 05/28/2023 Time: 15:29 Bed IW4 Private MD: Diagnosis: Presentation: 05/28 15:34 Chief complaint: EMS states: he was found to be lethargic and has a wound on back of iw head , he ;lives on the street, VSS, refused IV. Coronavirus screen: At this time, the client does not indicate any symptoms associated with coronavirus-19. Ebola Screen: Patient negative for fever greater than or equal to 101.5 degrees Fahrenheit, and additional compatible Ebola Virus Disease symptoms Patient denies exposure to infectious person. Patient denies travel to an Ebola-affected area in the 21 days before illness onset. No symptoms or risks identified at this time. Onset of symptoms was May 28, 2023. 15:34 Method Of Arrival: EMS iw 15:36 Initial Sepsis Screen: Does the patient meet any 2 criteria? No. Patient's initial iw sepsis screen is negative. Does the patient have a suspected source of infection? No. Patient's initial sepsis screen is negative. Risk Assessment: Do you want to hurt yourself or someone else? Patient reports no desire to harm self or others. 15:36 Acuity: PATRICIO 3 iw Historical: - Allergies: 15:35 No Known Allergies; iw - PMHx: 15:35 Anxiety; Bipolar disorder; Depression; iw - PSHx: 15:35 Ankle; eye; Nose; Tonsillectomy; iw Assessment: 16:51 Reassessment: Called pts name in lobby. No response. mb9 Vital Signs: 15:54 BP 103 / 76; Pulse 69; Resp 16; Temp 98.5; Pulse Ox 100% on R/A; iw ED Course: 15:34 Patient arrived in ED. iw 15:37 Triage completed. iw 15:37 Arm band placed on. iw 15:58 Liane Tang is Attending Physician. ci Administered Medications: No medications were administered Outcome: 17:31 Patient left the ED. iw Signatures: Iéns Mata RN RN iw Breneman, Mary Beth, RN RN mb9 Liane Tang ci
--- NOTE | 2023-05-29 17:31 | EDPHYS ---
Physician Documentation [facility] Name: Bro Yung Age: 58 yrs Sex: Male : 1965 Arrival Date: 05/28/2023 Time: 15:29 Bed IW4 [facility] MD: ED Physician Liane Tang Historical: - Allergies: 05/28 15:35 No Known Allergies; iw - PMHx: 15:35 Anxiety; Bipolar disorder; Depression; iw - PSHx: 15:35 Ankle; eye; Nose; Tonsillectomy; iw Vital Signs: 15:54 BP 103 / 76; Pulse 69; Resp 16; Temp 98.5; Pulse Ox 100% on R/A; iw MDM: 15:58 Patient medically screened. ci Administered Medications: No medications were administered Disposition Summary: 05/28/23 17:01 Eloped Disposition: before being seen by provider ci Reason: unknown ci Signatures: Inés Mata RN JESSICA Liane Tang ci
== END 2023-05-28 17:31 | disposition left against medical advice (07) ==
LOC: ER 15:29
DX: Z53.21 Procedure and treatment not carried out due to patient leaving prior to being seen by health care provider (principal)
CPT/HCPCS: 99282

== ENCOUNTER 2023-08-01 04:31 | Emergency (ER) | payer OTHER ==
--- OUTSIDE RECORDS SUMMARY | 2023-08-01 04:40 | XMS REPORT | Continuity of Care Document ---
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 (TYLENOL) 15:23: 23:42 Q6HPRN, [place] tablet 650 32 :25 Starting Medic al mg on [facility] 08/03/22 at 1023, Until 08/06/22 at 1742, Routine, Pain (scale 1-3) vancomycin 2021-10- No 15mg/kg 1,000 mg Univers (VANCOCIN) 10-03 (rounded ity of 1,000 mg in 11:45: 12:32 from 952.5 [place] NaCl 0.9% 00 :00 mg = 15 Medical (NS) 250 mL mg/kg Branch VIAL-MATE ?63.5 kg), IV IV piggyback [place], ONCE, 1 dose, On [facility] 11/3/22 at 0645, Administer over 60 Minutes, 250 mL
Reas on for Anti-Infec tive: Empiric Therapy for Suspected Infection< br>Empiric Therapy Site: Skin / Soft tissue
Duration of therapy: 72 hours morpHINE (4 2021-10- No 4mg 4 mg, Slow Univers mg/mL) 10-03 IV Push, ity of injection 4 10:30: 10:50 ONCE, 1 [place] mg 00 :00 dose, On [facility] 08/03/22 at 0530, Routine morpHINE (2021-10 No 4mg 4 mg, Slow Univers mg/mL) 007-13 IV Push, ity of injection 4 22:30: 22:40 ONCE, 1 [place] mg 00 :00 dose, On [facility] 07/13/22 at 1730, STAT iopamidol 2021-10- No [id number] 75mL 75 mL, Univers (ISOVUE 07-13 [id number] Intravenou ity of 370-500 mL) 21:12: 21:15 s, ONCE, 1 [place] injection 00 :00 dose, On Medica l 75 mL [facility] 07/13/22 at 1615, Routine ondansetron 2021-10 No 4mg 4 mg, Slow Univers (ZOFRAN 07-13 IV Push, ity of (PF)) 19:45: 20:11 ONCE, 1 [place] injection 4 00 :00 dose, On Medi mele mg [facility] 07/13/22 at 1445, FELICITA morpHINE (2021-10 No 4mg 4 mg, Slow Univers mg/mL) 007-13 IV Push, ity of injection 4 19:45: 20:11 ONCE, 1 [place] mg 00 :00 dose, On [facility] 07/13/22 at 1445, STAT levoFLOXaci 2021-10- No [id number] 500mg Take 1 Univers n 500 mg 07-24 tablet by ity o f tablet 00:00: 04:59 mouth [place] 00 :00 every 24 Medical ([facility]- Branch ur) hours for 10 days. polyethylen 2021-10- No [id number] 17g Take 17 g Univers e glycol 0-13 10-21 by mouth ity of 3350 17 00:00: 04:59 in the [place] gram/dose 00 :00 morning Medical powder and 17 g Branch in the evening. Do all this for 7 days. cephALEXin 2021- No [id number] 500mg Take 1 Univers 500 mg 06-08 [id number] capsule by ity of capsule 00:00: 04:59 mouth 4 [place] 00 :00 (four) Medical times [place] daily for 7 days. aspirin Yes 81mg 81 mg, Univers chewable 05-28 Oral, ity of tablet 81 14:00: DAILY, [place] mg 00 First dose Medical on [facility] 05/28/22 at 0900, Until Discontinu ed, Routine enoxaparin Yes 40mg 40 mg, Unive rs (LOVENOX) 05-28 Subcutaneo ity of injection 14:00: us, DAILY, [place] 40 mg 00 First dose Medical on [facility] 05/28/22 at 0900, Until Discontinu ed, Routine aspirin 2021- No 325mg 325 mg, Unive rs tablet 325 05-28 Oral, ity of mg 14:00: 23:23 DAILY, [place] 00 :25 First dose Medical on [facility] 05/28/22 at 0900, Until Discontinu ed, Routine NaCl 0.9% Yes 1000mL at 100 Univ ers (NS) IV 8 mL/hr, IV ity of infusion 05:00: Infusion, [place] 1,000 mL 00 CONTINUOUS Medic al , Starting Branch on [place] 05/28/22 at 0000, Until Discontinu ed, Routine KCL No 20meq 20 mEq, Univers (KLOR-CON 05-28 Oral, ity of M20) tablet 03:30: 03:46 ONCE, 1 [place] 20 mEq 00 :00 dose, On [facility] 05/27/22 at 2230, Routine cyclobenzap 2021- No 5mg 5 mg, Univ ers rine 05-28 Oral, ity of (FLEXERIL) 03:30: 03:46 ONCE, 1 [place] tablet 5 mg 00 :00 dose, On [facility] 05/27/22 at 2230, Routine atorvastati 0 2021- No 40mg 40 mg, Uni vers n (LIPITOR) 05-28 Oral, ity of tablet 40 03:30: 03:46 ONCE, 1 [place] mg 00 :00 dose, On Medical Sat Branch 05/27/22 at 2230, Routine HYDROcodone 2021-0 Yes 1{tbl} 1 tablet, Univers -acetaminop 05-28 Oral, ity of hen (NORCO) 02:43: Q6HPRN, [place] 10-325 mg 45 Starting Medica l tablet 1 on [facility] Branch tablet 05/27/22 at 2143, Until Discontinu ed, Routine, Pain (scale 4-6) nicotine 0 Yes 1{patch 1 Patch, Un whit (NICODERM) [...] [place] mg 46 :46 Starting Medical on [facility] 05/27/22 at 1812, Until 05/28/22 at 181, Routine, Pain (scale 7-10) acetaminoph 2021- No 1{tbl} 1 tablet, Univers en-codeine 05-27 Oral, ity of (TYLENOL 23:12: 23:11 Q6HPRN, [place] #3) 300-30 44 :44 Starting Medic al mg tablet 1 on [facility] Branch tablet 05/27/22 at 1812, Until 05/29/22 at 1811, Routine, Pain (scale 4-6) acetaminoph 0 Yes 650mg 650 mg, Un whit en 05-27 Oral, ity of (TYLENOL) 23:12: Q6HPRN, [place] tablet 650 41 Starting Medic al mg on [facility] 05/27/22 at 1812, Until Discontinu [...] 05-27 medication it y of 17:59: s [place] 39 Medical Branch neomycin-po 2020-10 Yes [id number] 3[drp] Place 3 Univers lymyxin-hyd 2-28 Drops in ity of rocortisone 00:00: right ear [place] 3.5-10,000- 00 4 (four) Medi mele 1 times Branch mg/mL-unit/ daily. mL-% otic susp ibuprofen 2020-10 Yes [id number] 600mg Take 1 Univers 600 mg 2-28 tablet by ity of tablet 00:00: mouth [place] 00 every 6 Medical (six) Branch hours as needed for Pain (scale 4-6). neomycin-po 2020-10 Yes [id number] 3[drp] Place 3 Univers lymyxin-hyd 2-28 Drops in ity of rocortisone 00:00: right ear [place] 3.5-10,000- 00 4 (four) Medi mele 1 times Branch mg/mL-unit/ daily. mL-% otic susp ibuprofen 2020-10 Yes [id number] 600mg Take 1 Univers 600 mg 2-28 tablet by ity of tablet 00:00: mouth [place] 00 every 6 Medical (six) Branch hours as needed for Pain (scale 4-6). neomycin-po 2020-10- No [id number] 3[drp] Place 3 Univers lymyxin-hyd 2-28 08-28 Drops in ity of rocortisone 00:00: 00:00 right ear [place] 3.5-10,000- 00 :00 4 (four) Medi mele 1 times Branch mg/mL-unit/ daily. mL-% otic susp ibuprofen 2020-10- No [id number] 600mg Take 1 Univers 600 mg 2-28 08-28 tablet by ity of tablet 00:00: 00:00 mouth [place] 00 :00 every 6 Medical (six) Branch hours as needed for Pain (scale 4-6). HYDROcodone Yes 1{tbl} Take 1 [place] rris -acetaminop 5-02 tablet by [facility] hen (NORCO) 10:06: mouth 10-325 mg 05 every 6 tablet hours as needed for Pain. HYDROcodone 2017 Yes 1{tbl} Take 1 [place] -acetaminop 5-02 tablet by [facility] hen (NORCO) 10:06: mouth 10-325 mg [...] Chronic 400mg Take 1 H arris (NEURONTIN) 01-30 back pain, capsule by [facility] 400 mg 00:00: unspecified mouth 3 capsule 00 back times location, daily. unspecified back pain laterality albuterol Yes Uncomplicat 2{puff} Inhale 2 [place] (VENTOLIN 02 ed asthma, Puffs by [facility] HFA,PROVENT 00:00: unspecified mouth 4 [place] 00 asthma times HFA,PROAIR severity daily as HFA) 90 needed for mcg/actuati Wheezing. on inhaler acetaminoph Yes S/P ORIF 1{tbl} Take 1 Kahn en-codeine 3-29 (open tablet by [facility] (TYLENOL/CO 00:00: reduction mouth DEINE #3) 00 internal every 6 300-30 mg fixation) hours as per tablet fracture needed for Pain. acetaminoph Yes S/P ORIF 1{tbl} Take 1 [place] en-codeine 3-29 (open tablet by [facility] (TYLENOL/CO 00:00: reduction mouth DEINE #3) 00 internal every 6 300-30 mg fixation) hours as per tablet fracture needed for Pain. acetaminoph Yes S/P ORIF 1{tbl} Take 1 [place] en-codeine 3-29 (open tablet by [facility] (TYLENOL/CO 00:00: reduction mouth DEINE #3) 00 internal every 6 300-30 mg fixation) hours as per tablet fracture needed for Pain. acetaminoph Yes S/P ORIF 1{tbl} Take 1 [place] en-codeine 3-29 (open tablet by [facility] (TYLENOL/CO 00:00: reduction mouth DEINE #3) 00 internal every 6 300-30 mg fixation) hours as per tablet fracture needed for Pain. acetaminoph Yes S/P ORIF 1{tbl} Take 1 [place] en-codeine 3-29 (open tablet by [facility] (TYLENOL/CO 00:00: reduction mouth DEINE #3) 00 internal every 6 300-30 mg fixation) hours as per tablet fracture needed for Pain. acetaminoph Yes S/P ORIF 1{tbl} Take 1 [place]ahn en-codeine 3-29 (open tablet by [facility] (TYLENOL/CO 00:00: reduction mouth DEINE #3) 00 internal every 6 300-30 mg fixation) hours as per tablet fracture needed for Pain. naproxen 2017-0 Yes Pain in 500mg Q.5D Take 1 [place] ris (NAPROSYN) 3-27 left foot tablet by [facility] 500 mg 00:00: mouth 2 tablet 00 times daily (with meals). miconazole 2016- Yes Tinea Q.5D Apply to Gorman rris (MICOTIN) 2 3 cruris affected He alth % topical 00:00: area 2 cream 00 times daily. naproxen 2016-0 Yes Pain in 500mg Q.5D Take 1 Kareem ris (NAPROSYN) 3 left foot tablet by [facility] 500 mg 00:00: mouth 2 tablet 00 times daily (with meals). miconazole 2016-0 Yes Tinea Q.5D Apply to [place] [facility] (MICOTIN) 2 3 cruris affected He alth % topical 00:00: area 2 cream 00 times daily. naproxen 2016-0 Yes Pain in 500mg Q.5D Take 1 Kareem ris (NAPROSYN) 3 left foot tablet by [facility] 500 mg 00:00: mouth 2 tablet 00 times daily (with meals). miconazole 2016-0 Yes Tinea Q.5D Apply to [place] [facility] (MICOTIN) 2 3 cruris affected He alth % topical 00:00: area 2 cream 00 times daily. naproxen 2016-0 Yes Pain in 500mg Q.5D Take 1 Kareem ris (NAPROSYN) 3 left foot tablet by Health 500 mg [...] MG Oral severe Tablet pain, # 60 [[place] tab, 0 10/325] Refill(s) ropivacaine No Notes: Raad kenna 3-22 Final l 18:25: concentrat ion: Ropivacain e 0.2% 400 ml tramadol [...] a 3-21 (Same As: l 23:00: Ancef, [place] 00 Kefzol) Cefazolin FOR IV SET ONLY [...] kenna 3-21 Same as: l 18:55: Naropin [place] ropivacaine No Route: Raad kenna 3-21 NERVE l 18:41: BLOCK, J[place] 00 Continuous Rate: 6, ml/hr, Dosing Site: Sciatic popliteal Side: Left, 1 Hour limit: 6 mL, 200, mL, Start date: 12/19/16 13:41:00 CDT, Duration: 30, day, Total volume: 200, mL, Weight 86.364, kg, Stop date: 01/18/17 13:40:00 CDT Enoxaparin No Notes: Memor ia 3-21 (Same as: l 18:00: Lovenox) [place] Ondansetron No Notes: Raad kenna 3-21 (Same as: l 17:52: Zofran) [place] MEDICATION WASTE Product Size: 4 mg Product Wasted: _0__ mg Morphine No Notes: Memoria 3-21 (Same l 17:52: as:MORPhin [place] e Sulfate) Acetaminoph No Notes: Raad kenna en 325 MG / 3-21 (Same as: l Hydrocodone 17:52: [place] Naye nn Bitartrate 00 325/10) 10 MG Oral Tablet Acetaminoph No Notes: Raad kenna en 325 MG / 3-21 (Same as: l Hydrocodone 17:52: [place] Naye nn Bitartrate 00 325/5) 5 MG Oral Tablet INV No IVP, 0 Memoria Sugammadex/ 3-21 ml/hr, l Placebo inj 17:00: ONCE, Naye nn syringe 00 Start date: 12/19/16 12:00:00 CDT, 1.73 ml Naloxone No 0.4 mg, Memori a 12-19 Route: l 14:36: IVP, [place] 00 Q2MIN, Dosing Weight 86.364, kg, PRN Narcotic Reversal, Start date: 12/19/16 9:36:00 CDT, Duration: 8 doses or times, Stop date: Limited # of times Hydromorpho No 0.5 mg, Mem oria ne 12-19 Route: l 14:36: IVP, [place] 00 Q5Min, Dosing Weight 86.364, kg, PRN Pain Score 7-10, Start date: 12/19/16 9:36:00 CDT, Duration: 4 doses or times, Stop date: Limited # of times Flumazenil No 0.2 mg, Raad kenna 12-19 Route: l 14:36: IVP, PRN, [place] Dosing Weight 86.364, kg, PRN Benzodiaze pine Reversal, Initial dose, Start date: 12/19/16 9:36:00 CDT, Duration: 30 day, Stop date: 01/18/17 9:35:00 CDT Ondansetron No 4 mg, Memor ia 12-19 Route: l 14:36: IVP, ONCE, [place] 00 Dosing Weight 86.364, kg, PRN Nausea & Vomiting, Start date: 12/19/16 9:36:00 CDT Hydralazine No 10 mg, Raad kenna 12-19 Route: l 14:36: IVP, [place] 00 Q20Min, Dosing Weight 86.364, kg, PRN Elevated BP, Start date: 12/19/16 9:36:00 CDT, Duration: 2 doses or times, Stop date: Limited # of times ceFAZolin No Notes: Memori a 12-19 Same as: l 06:00: Ancef [place] 00 Acetaminoph 2016- Yes 1 - 2 tab, Memoria en 300 MG / 2-19 PO, Q4H, l Codeine 03:06: PRN Pain, Naye nn Phosphate 00 X 3 day, # 30 MG Oral 23 tab, 0 Tablet Refill(s) [Tylenol with Codeine #3] Acetaminoph No Notes: Do M emoria en 325 MG / 2-19 not exceed l Hydrocodone 02:44: 4gm/day of [place] Bitartrate acetaminop 10 MG Oral hen. (Same Tablet as: [place] [[place] 325/10) 10/325] Ibuprofen No Notes: Memori a 11-19 (Same as: l 00:58: Motrin) "Do Not Crush" Take with food. Tylenol No Notes: Do Memor ia 11-19 not exceed l 00:58: 4 gm/day. [place] (Same as: Tylenol) FLUoxetine Yes Substance 20mg [...] with Codeine #3] Morphine No Notes: Memoria -12 (Same l 15:04: as:MORPhin [place] 00 e Sulfate) Acetaminoph No 1 tab, Raad kenna en 325 MG / 12 Route: PO, l Hydrocodone 14:23: Drug Form: [place] Bitartrate 00 TAB, 5 MG Oral Dosing Tablet Weight 86.364, kg, ONCE, STAT, Start date: 11/12/16 8:23:00 APPLICATION ARCHITECT MANAGER, Stop date: 11/12/16 8:23:00 APPLICATION ARCHITECT MANAGER enoxaparin Yes 30 mg = Raad kenna 30 mg/0.3 2-11 0.3 mL, l mL 16:52: SUB-Q, [place] subcutaneou 00 [id number], s solution X 21 day, # 13 mL, 0 Refill(s), Pharmacy: [facility] [id number] tramadol Yes 100 mg = 2 Mem [...] 6-10, 0 10 MG Oral Refill(s) Tablet [[place] 10/325] FLUoxetine Yes 60 mg = 3 Me moria 20 mg oral 2-11 cap, PO, l capsule 16:46: Daily, # Kamari n 00 90 cap, 0 Refill(s), Pharmacy: [facility] senna 8.6 Yes 17.2 mg = Mem oria mg oral 2-11 2 tab, PO, l tablet 16:46: Bedtime, 0 Naye nn 00 Refill(s) gabapentin Yes 300 mg = 1 M emoria 300 MG Oral 2-11 cap, PO, l Capsule 16:46: Q8H-05, # Naye nn 00 90 cap, 0 Refill(s), Pharmacy: [facility] methocarbam Yes 1,000 mg = Memoria ol 500 mg 2-11 2 tab, PO, l oral tablet 16:46: Q8H-05, Her baker 00 PRN Spasm, X 14 day, # 84 tab, 0 Refill(s), Pharmacy: [facility] tramadol No Notes: Not Mem oria hydrochlori -11 to exceed l de 50 MG 15:34: 400mg/day. Her baker Oral Tablet 00 (Same As: [Ultram] Ultram) Morphine No Notes: Memoria 2-11 (Same l 15:34: as:MORPhin [place] 00 e Sulfate) sennosides, No Notes: Raad kenna INTERMEDIATE -11 (Same as: l 03:00: Senokot) Trazodone No Notes: Memori a 2-11 (Same As: l 03:00: Desyrel) Cefazolin No Notes: Memori a 2-10 (Same As: l 22:00: Ancef, [place] 00 Kefzol) MEDICATION WASTE Product Size: 1000 mg Product Wasted: ___ mg Latuda No Notes: Memoria 2-10 (Same as: l 15:00: Latuda) Non-Formul em Prozac No Notes: Memoria 2-10 (Same as: l 15:00: Prozac, Sarafem) Ondansetron No Notes: Raad kenna 2-10 [...] Weight 88.636, kg, Start date: 11/10/16 7:28:00 APPLICATION ARCHITECT MANAGER, Duration: 1 doses or times, Stop date: 11/10/16 7:28:00 APPLICATION ARCHITECT MANAGER, Surgical Prophylaxi s Only; For patients < [...] 10 MG Oral hen. (Same Tablet as: [place] [[place] 325/10) 10325] gabapentin No Notes: Memor ia 300 MG Oral 2-10 (Same as: l Capsule 08:51: Neurontin) Robaxin No Notes: Memoria 2-10 (Same l 08:51: as:Robaxin Jaden 00 ) ketOROLAC 2016- No 15 mg, Memori a 15 mg/mL 2-10 Route: IM, l injectable 08:51: Q6H, kg, Her baker solution 00 Priority: NOW, Start date: 11/10/16 2:51:00 APPLICATION ARCHITECT MANAGER, Duration: 4 day, Stop date: 11/14/16 0:00:00 APPLICATION ARCHITECT MANAGER Lurasidone Yes 20 mg = 1 Me [...] en 2-10 acetaminop l 08:15: hen 4000 [place] 00 mg/day (4 gm/day). (Same as: Tylenol Extra Strength) Ondansetron No Notes: Raad kenna 2-10 (Same as: l 08:15: Zofran) [place] 00 MEDICATION WASTE Product Size: 4 mg Product Wasted: ___ mg Morphine 2017- No 4 mg, Memoria 2-10 Route: l 07:40: IVP, ONCE, [place] 00 kg, Priority: STAT, Start date: 11/10/16 1:40:00 APPLICATION ARCHITECT MANAGER, Stop date: 11/10/16 1:40:00 APPLICATION ARCHITECT MANAGER Dilaudid No 2 mg, Memoria 2-10 Route: l 05:28: IVP, ONCE, [place] 00 kg, Priority: STAT, Start date: 11/09/16 23:28:00 APPLICATION ARCHITECT MANAGER, Stop date: 11/09/16 23:28:00 APPLICATION ARCHITECT MANAGER Sodium 2017-0 No 2,000 mL, Memori a Chloride 2-10 2,000 l 0.154 05:10: ml/hr, Jaden MEQ/ML 00 Infuse Injectable Over: 1 Solution hr, Route: IV, 2,000, Drug form: INJ, ONCE, Priority: STAT, kg, Start date: 11/09/16 23:10:00 APPLICATION ARCHITECT MANAGER, Duration: 1 doses or times, Stop date: 11/09/16 23:10:00 APPLICATION ARCHITECT MANAGER Zofran No Notes: Memoria 2-10 (Same as: l 04:51: Zofran) [place] 00 MEDICATION WASTE Product Size: 4 mg Product Wasted: ___ mg Morphine 2017- No 4 mg, Memoria 2-10 Route: l 04:50: IVP, ONCE, [place] 00 kg, Priority: STAT, Start date: 11/09/16 22:50:00 APPLICATION ARCHITECT MANAGER, Stop date: 11/09/16 22:50:00 APPLICATION ARCHITECT MANAGER Ketamine No 100 mg, Memori a 2-10 Route: l 04:11: IVP, ONCE, [place] 00 kg, Priority: STAT, Start date: 11/09/16 22:11:00 APPLICATION ARCHITECT MANAGER, Stop date: 11/09/16 22:11:00 APPLICATION ARCHITECT MANAGER Fentanyl No Notes: Memoria 2-10 (Same as: l 04:09: Sublimaze) [place] Preservati ve free. Fentanyl No Notes: Memoria 2-10 (Same as: l 04:08: Sublimaze) [place] Preservati ve free. Saline No Notes: Memoria Flush 0.9% 2-10 (Same as: l 03:30: BD [place] 00 Posiflush) famotidine 2015-10 Yes Heartburn 40mg QD Take 1 Kahn (PEPCID) 40 1-18 tablet by [facility] mg tablet 00:00: mouth 00 daily. traZODone 2015-10 Yes Insomnia, 200mg Take 2 [facility]ahn (DESYREL) 1-18 unspecified tablets by [facility] 100 mg 00:00: type mouth [...] 2015-10 Yes Jock itch Q.5D Apply to [place] (MICOTIN) 2 0-03 affected Heal th % topical 00:00: area 2 cream 00 times daily. miconazole 2015-10 Yes [place]ock itch Q.5D Apply to [place] (MICOTIN) 2 0-03 affected Heal th % topical 00:00: area 2 cream 00 times daily. miconazole 2015-10 Yes Jock itch Q.5D Apply to [place] (MICOTIN) 2 0-03 affected Heal th % topical 00:00: area 2 cream 00 times daily. miconazole 2015-10 Yes Jock itch Q.5D Apply to [place] (MICOTIN) 2 0-03 affected Heal th % topical 00:00: area 2 cream 00 times daily. miconazole 2015-10 Yes Jock itch Q.5D Apply to [place] (MICOTIN) 2 0-03 affected Heal th % topical 00:00: area 2 cream 00 times daily. miconazole 2015-10 Yes Jock itch Q.5D Apply to [place] (MICOTIN) 2 0-03 affected Heal th % topical 00:00: area 2 cream 00 times daily. Immunizations Ordered Immunization Filled Immunization Date Status Commen ts Source Name Name Influenza Vaccine 2016-07-03 Completed [facility] 00:00:00 Influenza Vaccine 2016-07-03 Completed [facility] 00:00:00 Influenza Vaccine 2016-07-03 Completed [facility] 00:00:00 Influenza Vaccine 2016-07-03 Completed [facility] 00:00:00 Influenza Vaccine 2016-07-03 Completed [facility] 00:00:00 PPD 2012-02-27 Completed [facility] 00:00:00 PPD 2012-02-27 Completed [facility] 00:00:00 PPD 2012-02-27 Completed [facility] 00:00:00 PPD 2012-02-27 Completed [facility] 00:00:00 PPD 2012-02-27 Completed [facility] 00:00:00 PPD 2011-02-13 Completed [facility] 00:00:00 PPD 2011-02-13 Completed [facility] 00:00:00 PPD 2011-02-13 Completed [facility] 00:00:00 PPD 2011-02-13 Completed [facility] 00:00:00 PPD 2011-02-13 Completed [facility] 00:00:00 PPD Unknown Completed [facility] PPD Unknown Completed [facility] Influenza Vaccine Unknown Completed [facility] Vital Signs Vital Name Observation Time Observation Value Comments Source Systolic blood 2023-06-06 07:00:00 119 mm[Hg] Univer sity of pressure [place] [facility] Diastolic blood 2023-06-06 07:00:00 86 mm[Hg] Unive rsity of pressure [place] [facility] Heart rate 2023-06-06 07:00:00 72 /min [facility] [place] [facility] [place] Respiratory rate 2023-06-06 07:00:00 15 /min [facility] [place] [facility] Oxygen saturation in 2023-06-06 07:00:00 98 /min University of Arterial blood by [employer] Pulse oximetry Branch Body temperature 2023-06-06 04:11:00 36.5 Jennifer [facility] [place] [facility] Body height 2023-06-06 04:11:00 172.7 cm [facility] [place] [facility] [place] Body weight 2023-06-06 04:11:00 68.04 kg [facility] [place] [facility] [place] BMI 2023-06-06 04:11:00 22.81 kg/m2 [facility] [place] [facility] Systolic blood 2022-09-02 17:19:00 107 mm[Hg] Univer sity of pressure [place] [facility] Diastolic blood 2022-09-02 17:19:00 65 mm[Hg] Unive rsity of pressure [place] [facility] Heart rate 2022-09-02 17:19:00 70 /min [facility] [place] [facility] [place] Body temperature 2022-09-02 17:19:00 35.83 Jennifer [facility] [place] [facility] Respiratory rate 2022-09-02 17:19:00 18 /min [facility] [place] [facility] Oxygen saturation in 2022-09-02 17:19:00 97 /min University of Arterial blood by [employer] Pulse oximetry Branch Body weight 2022-09-01 09:58:00 70.988 kg [facility] [place] [facility] BMI 2022-09-01 09:58:00 23.80 kg/m2 [facility] [place] [facility] Body height 2022-08-20 00:20:00 172.7 cm [facility] [place] [facility] Systolic blood 2022-08-12 03:27:00 120 mm[Hg] Univer sity of pressure [place] [facility] Diastolic blood 2022-08-12 03:27:00 82 mm[Hg] Unive rsity of pressure [place] [facility] Heart rate 2022-08-12 03:27:00 74 /min [facility] [place] [facility] Respiratory rate 2022-08-12 03:27:00 16 /min [facility] [place] [facility] Oxygen saturation in 2022-08-12 03:27:00 99 /min [facility] of Arterial blood by [facility] Pulse oximetry Branch Body temperature 2022-08-11 23:53:00 36.56 Jennifer [facility] [place] [facility] Body height 2022-08-11 23:53:00 172.7 cm [facility] [place] [facility] Body weight 2022-08-11 23:53:00 72.576 kg [facility] [place] [facility] BMI 2022-08-11 23:53:00 24.33 kg/m2 [facility] [place] [facility] Systolic blood 2022-08-09 15:00:00 116 mm[Hg] Univer sity of pressure [facility] [place] [facility] Diastolic blood 2022-08-09 15:00:00 81 mm[Hg] Unive rsity of pressure [facility] [place] [facility] Heart rate 2022-08-09 15:00:00 73 /min [facility] [place] [facility] Respiratory rate 2022-08-09 15:00:00 13 /min [facility] [place] [facility] Oxygen saturation in 2022-08-09 15:00:00 100 /min [facility] of Arterial blood by [facility] Pulse oximetry Branch Body temperature 2022-08-09 14:11:00 36.28 Jennifer [facility] [place] [facility] Body height 2022-08-09 14:11:00 170.2 cm [facility] [place] [facility] Body weight 2022-08-09 14:11:00 72.576 kg [facility] [place] Medical Branch BMI 2022-08-09 14:11:00 25.06 kg/m2 [facility] Systolic blood 2022-08-06 17:39:00 109 mm[Hg] [facility] [place] [facility] Diastolic blood 2022-08-06 17:39:00 65 mm[Hg] [facility] [place] [facility] Heart rate 2022-08-06 17:39:00 83 /min [facility] Body temperature 2022-08-06 17:39:00 36.83 Jennifer [facility] [place] [facility] Respiratory rate 2022-08-06 17:39:00 18 /min [facility] [place] [facility] Oxygen saturation in 2022-08-06 17:39:00 97 /min [facility] Ar[facility] blood by [place] [facility] oxim[facility] Body weight 2022-08-06 17:38:00 71.986 kg [facility] BMI 2022-08-06 17:38:00 24.86 kg/m2 [facility] Body height 2022-08-03 13:38:00 170.2 cm [facility] Respiratory rate 2022-08-05 15:10:00 19 /min [facility] [place] [facility] Systolic blood 2022-08-05 13:45:00 116 mm[Hg] [facility] [place] [facility] Diastolic blood 2022-08-05 13:45:00 70 mm[Hg] [facility] [place] [facility] Heart rate 2022-08-05 13:45:00 68 /min [facility] [place] [facility] Body temperature 2022-08-05 13:45:00 36.78 Jennifer [facility] Respiratory rate 2022-08-05 13:45:00 18 /min [facility] Oxygen saturation in 2022-08-05 13:45:00 99 /min [facility] by [place] [facility] Pulse oximetry Branch Body weight 2022-08-05 09:37:00 68.493 kg [facility] BMI 2022-08-05 09:37:00 24.86 kg/m2 [facility] Body height 2022-08-03 13:38:00 170.2 cm [facility] Systolic blood 2022-07-13 23:00:00 117 mm[Hg] [facility] [place] [facility] Diastolic blood 2022-07-13 23:00:00 79 mm[Hg] [facility] [place] [facility] Heart rate 2022-07-13 23:00:00 73 /min [facility] Oxygen saturation in 2022-07-13 23:00:00 99 /min [facility] [place] [facility] Respiratory rate 2022-07-13 22:00:00 18 /min [facility] [place] [facility] Body temperature 2022-07-13 19:10:00 36.89 Jennifer [facility] [place] [facility] Body height 2022-07-13 19:10:00 172.7 cm [facility] Body weight 2022-07-13 19:10:00 68.04 kg [facility] BMI 2022-07-13 19:10:00 22.81 kg/m2 [facility] Systolic blood 2022-06-08 19:28:00 114 mm[Hg] [facility] [place] [facility] Diastolic blood 2022-06-08 19:28:00 78 mm[Hg] [facility] [place] [facility] Heart rate 2022-06-08 19:28:00 90 /min [facility] Body temperature 2022-06-08 19:28:00 36.78 Jennifer [facility] [place] [facility] Respiratory rate 2022-06-08 19:28:00 17 /min [facility] [place] [facility] Body height 2022-06-08 19:28:00 172.7 cm [facility] Body weight 2022-06-08 19:28:00 67.767 kg [facility] BMI 2022-06-08 19:28:00 22.72 kg/m2 [facility] Oxygen saturation in 2022-06-08 19:28:00 97 /min [facility] Arterial blood by [facility] Pulse oximetry Branch Systolic blood 2022-05-28 12:37:00 101 mm[Hg] [facility] [place] [facility] Diastolic blood 2022-05-28 12:37:00 70 mm[Hg] [facility] [place] [facility] Heart rate 2022-05-28 12:37:00 69 /min [facility] Body temperature 2022-05-28 12:37:00 36.67 Jennifer [facility] [place] [facility] Respiratory rate 2022-05-28 12:37:00 18 /min [facility] [place] [facility] Body weight 2022-05-28 12:37:00 66.271 kg [facility] BMI 2022-05-28 12:37:00 22.21 kg/m2 [facility] Oxygen saturation in 2022-05-28 12:37:00 97 /min [facility] Arterial blood by [facility] Pulse oximetry Branch Body height 2022-05-27 23:06:00 172.7 cm [facility] [place] [facility] Systolic blood 2022-01-02 05:10:00 109 mm[Hg] [facility] [place] [facility] Diastolic blood 2022-01-02 05:10:00 80 mm[Hg] [facility] [place] [facility] Heart rate 2022-01-02 05:10:00 106 /min [facility] Body temperature 2022-01-02 05:10:00 37.22 Jennifer [facility] [place] [facility] Respiratory rate 2022-01-02 05:10:00 20 /min [facility] [place] [facility] Body height 2022-01-02 05:10:00 172.7 cm [facility] Body weight 2022-01-02 05:10:00 63.504 kg [facility] [place] [facility] BMI 2022-01-02 05:10:00 21.29 kg/m2 [facility] [place] [facility] Oxygen saturation in 2022-01-02 05:10:00 98 /min [facility] Arterial blood by [facility] Pulse oximetry Branch Systolic blood 2021-09-27 08:13:00 112 mm[Hg] [facility] [place] [facility] Diastolic blood 2021-09-27 08:13:00 72 mm[Hg] [facility] [place] [facility] Heart rate 2021-09-27 08:13:00 77 /min [facility] [place] [facility] Body temperature 2021-09-27 08:13:00 36.72 Jennifer [facility] [place] [facility] Respiratory rate 2021-09-27 08:13:00 18 /min [facility] [place] [facility] Body height 2021-09-27 08:13:00 170.2 cm [facility] [place] [facility] Body weight 2021-09-27 08:13:00 68.04 kg [facility] [place] [facility] BMI 2021-09-27 08:13:00 23.49 kg/m2 [facility] Oxygen saturation in 2021-09-27 08:13:00 98 /min [facility] Arterial blood by [facility] Pulse oximetry Branch Height/Length 2021-10-18 09:59:29 [...] Measured Respitory Rate 2016-12-20 16:24:00 [facility] [place] Heart Rate 2016-12-20 16:24:00 [facility] Temperature Oral (F) 2016-12-20 16:24:00 98.2 F [facility] Systolic (mm Hg) 2016-12-20 16:24:00 [facility] [place] Diastolic (mm Hg) 2016-12-20 16:24:00 [facility] Respitory Rate 2016-12-20 13:24:00 [facility] [place] Systolic (mm Hg) 2016-12-20 13:24:00 [facility]ad [facility] Diastolic (mm Hg) 2016-12-20 13:24:00 [facility] [place] Heart Rate 2016-12-20 13:24:00 [facility] [place] Temperature Oral (F) 2016-12-20 13:24:00 98.0 F [facility] Respitory Rate 2016-12-20 09:00:00 [facility] Systolic (mm Hg) 2016-12-20 09:00:00 [facility] Diastolic (mm Hg) 2016-12-20 09:00:00 [facility] Temperature Oral (F) 2016-12-20 09:00:00 97.2 F [facility] [place] Heart Rate 2016-12-20 09:00:00 [facility] Height 2016-12-19 23:06:00 172.72 cm [facility] BMI Calculated 2016-12-19 23:06:00 [facility] Weight 2016-12-19 23:06:00 [facility] Weight 2016-12-18 18:24:00 [facility] [place] Height 2016-12-18 18:24:00 172.72 cm [facility] [place] BMI Calculated 2016-12-18 18:24:00 [facility] Temperature Oral (F) 2016-11-19 00:28:00 97.0 F [facility] [place] Heart Rate 2016-11-19 00:28:00 [facility] Respitory Rate 2016-11-19 00:28:00 [facility] Systolic (mm Hg) 2016-11-19 00:28:00 [facility] Diastolic (mm Hg) 2016-11-19 00:28:00 [facility] [place] Height 2016-11-19 00:28:00 177.8 cm [facility] BMI Calculated 2016-11-19 00:28:00 [facility] [place] Weight 2016-11-19 00:28:00 [facility] Height 2016-11-12 13:46:00 172.72 cm [facility] BMI Calculated 2016-11-12 13:46:00 [facility] Weight 2016-11-12 13:46:00 [facility] [place] Heart Rate 2016-11-12 13:46:00 [facility] Respitory Rate 2016-11-12 13:46:00 [facility] Temperature Oral (F) 2016-11-12 13:46:00 97.5 F [facility] [place] Systolic (mm Hg) 2016-11-12 13:46:00 [facility] [place] Diastolic (mm Hg) 2016-11-12 13:46:00 [facility] Respitory Rate 2016-11-11 18:59:00 [facility] [place] Heart Rate 2016-11-11 18:59:00 [facility] Temperature Oral (F) 2016-11-11 18:59:00 97.7 F [facility] Systolic (mm Hg) 2016-11-11 18:59:00 [facility] [place] Diastolic (mm Hg) 2016-11-11 18:59:00 [facility] [place] Temperature Oral (F) 2016-11-11 13:30:00 97.5 F [facility] [place] Systolic (mm Hg) 2016-11-11 13:30:00 [facility] Diastolic (mm Hg) 2016-11-11 13:30:00 [facility] Respitory Rate 2016-11-11 13:30:00 [facility] [place] Heart Rate 2016-11-11 13:30:00 [facility] [place] Heart Rate 2016-11-11 09:29:00 [facility] [place] Temperature Oral (F) 2016-11-11 09:29:00 97.8 F [facility] Respitory Rate 2016-11-11 09:29:00 [facility] Systolic (mm Hg) 2016-11-11 09:29:00 [facility]ad [facility] [place] Diastolic (mm Hg) 2016-11-11 09:29:00 [facility] [place] Weight 2016-11-10 10:09:00 [facility] BMI Calculated 2016-11-10 10:09:00 [facility] Height 2016-11-10 10:09:00 172.72 [facility] Procedure Date / Time Performing Clinician Source Performed CT ABDOMEN PELVIS W 2023-06-06 09:05:22 Jessica Thornton [facility] CONTRAST Medical Branch LIPASE 2023-06-06 04:33:00 Jessica Thornton [facility] COMP. METABOLIC PANEL 2023-06-06 04:33:00 Jessica Thornton [facility] ([id number]) Medical Branch URINE DRUG (IMMUNOASSAY) 2023-06-06 04:33:00 Jessica Thornton [facility] DRUG [facility] SCREEN CBC WITH DIFF 2023-06-06 04:33:00 Jessica Thornton [facility] URINALYSIS 2023-06-06 04:33:00 Jessica Thornton [facility] VANCOMYCIN TROUGH 2022-09-01 22:13:00 Enrique Martinez [facility] BASIC METABOLIC PANEL 2022-08-31 10:48:00 Drake Duggan [facility] (NA, K, CL, CO2, GLUCOSE, Medica l Branch BUN, CREATININE, CA) CBC WITH DIFF 2022-08-31 10:48:00 Drake Duggan [facility] VANCOMYCIN TROUGH 2022-08-30 09:53:00 Jennifer Frankel [facility] BASIC METABOLIC PANEL 2022-08-29 10:40:00 Drake Duggan [facility] (NA, K, CL, CO2, GLUCOSE, Medica l Branch BUN, CREATININE, CA) CBC WITH DIFF 2022-08-29 10:40:00 Drake Duggan [facility] BASIC METABOLIC PANEL 2022-08-25 06:21:00 Francine Garvin [facility] (NA, K, CL, CO2, GLUCOSE, Medica l Branch BUN, CREATININE, CA) VANCOMYCIN TROUGH 2022-08-25 06:21:00 Zaida Jeter [facility] CBC WITH DIFF 2022-08-25 06:21:00 Francine Garvin [facility] URINE DRUG (IMMUNOASSAY) 2022-08-24 06:25:00 Francine Garvin [facility] SCREEN CBC WITH DIFF 2022-08-23 10:21:00 Francine Garvin [facility] DUPLEX VENOUS LEG LEFT - 2022-08-21 14:41:00 Americo Alfonso [facility] BY VASCULAR LAB [facility] BASIC METABOLIC PANEL 2022-08-21 09:11:00 Drake Duggan [facility] (NA, K, CL, CO2, GLUCOSE, Medica l Branch BUN, CREATININE, CA) CBC WITH DIFF 2022-08-21 09:11:00 Drake Duggan [facility] VANCOMYCIN TROUGH 2022-08-21 06:07:00 Fermin Schmidt [facility] CT ANKLE LEFT W CONTRAST 2022-08-20 16:19:30 Enrique Martinez [facility] BASIC METABOLIC PANEL 2022-08-20 09:58:00 Juan [facility] (NA, K, CL, CO2, GLUCOSE, Medica l Branch BUN, CREATININE, CA) CBC WITH DIFF 2022-08-20 09:58:00 Juan [facility] LACTIC ACID WHOLE BLOOD 2022-08-20 04:18:00 Ursula Merino [facility] CT TIBIA FIBULA LEFT WO 2022-08-20 03:19:00 Americo Alfonso [facility] BLOOD CULTURE SCREEN 2022-08-19 21:25:00 Ursula Merino [facility] BLOOD CULTURE SCREEN 2022-08-19 21:24:00 Wilber Ursula [facility] LACTIC ACID WHOLE BLOOD 2022-08-19 21:24:00 Ursula Merino [facility] XR FOOT 3+ VW LEFT 2022-08-19 21:19:46 Ursula Merino [facility] XR TIBIA FIBULA 2 VW LEFT 2022-08-19 21:19:46 Ursula Merino [facility] COMP. METABOLIC PANEL 2022-08-19 21:13:00 Ursula Merino [facility] ([id number]) [facility] CBC WITH DIFF 2022-08-19 21:13:00 Wilber Ursula [facility] XR KUB 2022-08-12 00:48:03 Otto Tao [facility] XR ANKLE <3 VW LEFT 2022-08-12 00:48:03 Otto Tao [facility] XR TIBIA FIBULA 2 VW LEFT 2022-08-12 00:48:03 [facility] 2022-08-12 00:22:00 Otto Tao [facility] (NA, K, CL, CO2, GLUCOSE, Medica l Branch BUN, CREATININE, CA) CBC WITH DIFF 2022-08-12 00:22:00 Otto Tao [facility] XR TIBIA FIBULA 2 VW LEFT 2022-08-09 14:39:53 [facility]ao [facility] 2022-08-06 11:36:00 [facility] ([facility], K, CL, CO2, GLUCOSE, Medica l Branch BUN, CREATININE, CA) VANCOMYCIN TROUGH 2022-08-06 11:36:00 [facility] CBC WITH DIFF 2022-08-06 11:36:00 Francine Garvin [facility] BASIC METABOLIC PANEL 2022-08-06 11:36:00 [facility] (NA, K, CL, CO2, GLUCOSE, Medica l Branch BUN, CREATININE, CA) VANCOMYCIN TROUGH 2022-08-06 11:36:00 [facility] CBC WITH DIFF 2022-08-06 11:36:00 Francine Garvin [facility] MRSA / MSSA SCREEN BY 2022-08-05 16:52:00 Matt Robles [facility] PCR, [facility] MRSA / MSSA SCREEN BY 2022-08-05 16:52:00 Matt Robles [facility] PCR, [facility] ASPIRATE OR ABSCESS 2022-08-05 15:08:00 Matt Robles [facility] CULTURE(AEROBIC/ANAEROBIC Medica l Branch ) ASPIRATE OR ABSCESS 2022-08-05 15:08:00 Matt Robles [facility] CULTURE(AEROBIC/ANAEROBIC Medica l Branch ) FL TIME (NON-REPORTABLE) 2022-08-05 15:03:44 Matt Robles [facility] FL TIME (NON-REPORTABLE) 2022-08-05 15:03:44 Matt Robles [facility] ASPIRATE OR ABSCESS 2022-08-05 14:40:00 Matt Robles [facility] CULTURE(AEROBIC/ANAEROBIC Medica l Branch ) ASPIRATE OR ABSCESS 2022-08-05 14:40:00 Matt Robles [facility] CULTURE(AEROBIC/ANAEROBIC Medica l Branch ) INTUBATION 2022-08-05 14:11:00 Bharathi Roth [facility] ANKLE HARDWARE REMOVAL 2022-08-05 13:47:00 Matt Robles [facility] BASIC METABOLIC PANEL 2022-08-05 10:25:00 [facility] (NA, K, CL, CO2, GLUCOSE, Medica l Branch BUN, CREATININE, CA) VANCOMYCIN TROUGH 2022-08-05 10:25:00 Jennifer Frankel [facility] CBC WITH DIFF 2022-08-05 10:25:00 Francine Garvin [facility] BASIC METABOLIC PANEL 2022-08-05 10:25:00 [facility] (NA, K, CL, CO2, GLUCOSE, Medica l Branch BUN, CREATININE, CA) VANCOMYCIN TROUGH 2022-08-05 10:25:00 Jennifer Frankel [facility] CBC WITH DIFF 2022-08-05 10:25:00 Francine Garvni [facility] MAGNESIUM 2022-08-04 09:03:00 Jennifer Frankel [facility] BASIC METABOLIC PANEL 2022-08-04 09:03:00 Jennifer Frankel [facility] (NA, K, CL, CO2, GLUCOSE, Medica l Branch BUN, CREATININE, CA) CBC WITH DIFF 2022-08-04 09:03:00 Jennifer Frankel [facility] MAGNESIUM 2022-08-04 09:03:00 Jennifer Frankel [facility] BASIC METABOLIC PANEL 2022-08-04 09:03:00 Jennifer Frankel [facility] (NA, K, CL, CO2, GLUCOSE, Medica l Branch BUN, CREATININE, CA) CBC WITH DIFF 2022-08-04 09:03:00 Jennifer Frankel Orwell o f [facility] DUPLEX ARTERIAL LEG LEFT 2022-08-03 18:48:00 Jennifer Frankel [facility] - BY VASCULAR LAB [facility] DUPLEX ARTERIAL LEG LEFT 2022-08-03 18:48:00 Jennifer Frankel [facility] - BY VASCULAR [facility] MRSA / MSSA SCREEN BY 2022-08-03 18:26:00 Jennifer Frankel [facility] PCR, [facility] MRSA / MSSA SCREEN BY 2022-08-03 18:26:00 Jennifer Frankel [facility] PCR, [facility] TRANSTHORACIC ECHO (TTE) 2022-08-03 16:02:00 Jennifer Frankel [facility] W/ DOPPLER AND Medical [place] ranch COLOR TRANSTHORACIC ECHO (TTE) 2022-08-03 16:02:00 Jennifer Frankel [facility] W/ DOPPLER AND Medical B ranch COLOR WOUND/ASPIRATE OR ABSCESS 2022-08-03 11:02:00 [facility] 2022-08-03 11:02:00 Andrea Hernandez [facility] WOUND/ASPIRATE OR ABSCESS 2022-08-03 11:02:00 Andrea Hernandez [facility] WOUND CULTURE 2022-08-03 11:02:00 Andrea Hernandez [facility] BLOOD CULTURE SCREEN 2022-08-03 10:50:00 Andrea Hernandez [facility] BLOOD CULTURE SCREEN 2022-08-03 10:50:00 [facility] XR ANKLE 3+ VW LEFT 2022-08-03 10:41:15 Andrea Hernandez [facility] XR ANKLE 3+ VW LEFT 2022-08-03 10:41:15 Andrea Hernandez [facility] COMP. METABOLIC PANEL 2022-08-03 10:04:00 Andrea [facility] ([id number]) Medical Branch SEDIMENTATION RATE 2022-08-03 10:04:00 David, Andrea E [facility] CBC WITH DIFF 2022-08-03 10:04:00 Andrea Hernandez [facility] COMP. METABOLIC PANEL 2022-08-03 10:04:00 Andrea Hernandez [facility] ([id number]) Medical [place] SEDIMENTATION RATE 2022-08-03 10:04:00 Andrea Hernandez [facility] CBC WITH DIFF 2022-08-03 10:04:00 Andrea Hernandez [facility] NOTICE OF PRIVACY 2022-08-03 09:48:04 Doctor Unassitzel, [facility] NOTICE OF PRIVACY 2022-08-03 09:48:04 Doctor Unassitzel, [facility] CONSENT/REFUSAL FOR 2022-08-03 09:47:46 Doctor Rich, [facility] DIAGNOSIS AND TREATMENT [facility] CONSENT/REFUSAL FOR 2022-08-03 09:47:46 Doctor Rich [facility] DIAGNOSIS AND TREATMENT [facility] HOSPITAL ADMISSION 2022-08-03 05:01:00 Doctor Rich, [facility] CT ABDOMEN PELVIS W 2022-07-13 21:14:00 Ann Patricia [facility] US SCROTUM AND CONTENTS 2022-07-13 21:08:15 Ann Patricia [facility] URINALYSIS 2022-07-13 20:30:00 Ann Patricia [facility] COMP. METABOLIC PANEL 2022-07-13 20:12:00 Ann Patricia [facility] ([id number]) [facility] CBC WITH DIFF 2022-07-13 20:12:00 Ann Patricia [facility] ASSIGNMENT OF BENEFITS 2022-06-08 19:18:51 Doctor Rich, [facility] Medical Branch MAGNESIUM 2022-05-28 09:29:00 Jennifer Frankel o f [facility] BASIC METABOLIC PANEL 2022-05-28 09:29:00 Jennifer Frankel [facility] (NA, K, CL, CO2, GLUCOSE, Medica l Branch BUN, CREATININE, CA) N-TERMINAL PRO-BNP 2022-05-28 09:29:00 Shaun Laguer[facility] TROPONIN I 2022-05-28 03:58:00 [facility] ([id number])(TOTAL 2022-05-28 03:58:00 David Oneil [facility] CHOLESTEROL, [facility] TRIGLYCERIDES, HDL) GLYCOSYLATED HEMOGLOBIN 2022-05-28 03:58:00 [facility] D-DIMER 2022-05-28 03:58:00 [facility]OP[facility] 2022-05-27 23:54:00 Jostin [facility] COVID-19 (ID NOW RAPID 2022-05-27 20:31:00 Yeyo Rogers [facility] TESTING) [facility] XR CHEST 1 VW 2022-05-27 19:33:15 Yeyo Rogers [facility] CREATINE KINASE 2022-05-27 19:10:00 Yeyo Rogers [facility] TROPONIN I 2022-05-27 19:10:00 Yeyo Rogers [facility] COMP. METABOLIC PANEL 2022-05-27 19:10:00 Yeyo Rogers [facility] ([id number]) [facility] CBC WITH DIFF 2022-05-27 19:10:00 Yeyo Rogers [facility] CT HEAD WO CONTRAST 2022-01-02 05:55:20 Nestor Hammond [facility] CONSENT/REFUSAL FOR 2022-01-02 05:02:45 Doctor Unassigned, [facility] DIAGNOSIS AND TREATMENT [place] [facility] CONSENT/REFUSAL FOR 2021-09-27 07:58:16 Doctor Unassigned, [facility] DIAGNOSIS AND TREATMENT [place] [facility] Eye reconstruction 1993-10-01 00:00:[address] [facility] Nose reconstruction 1991-10-01 00:00:[address] [facility] Tonsillectomy and 1972-10-01 00:00:00 [facility] [place] adenoidectomy Fracture care [facility] Plan of Care Planned Activity [...] Seasonal (>/= 19 yrs)] Future Scheduled Test 2023-06-01 00:00:00 IMM Influenza [facility] Seasonal (>/= [...] Future Scheduled Test 2017 00:00:00 Screening for [facility] malignant neoplasm of colon (procedure) [code = 352569878] Future Scheduled Test 2017 00:00:00 Screening for [facility] malignant neoplasm of colon (procedure) [code = 940464202] Future Scheduled Test 2017 00:00:00 Screening for [facility] malignant neoplasm of colon (procedure) [code = 306167357] Future Scheduled Test 2017 00:00:00 Screening for [facility] malignant neoplasm of colon (procedure) [code = 218863126] Future Scheduled Test 2017 00:00:00 Screening for [facility] malignant neoplasm of colon (procedure) [code = 680942375] Future Scheduled Test 2017 00:00:00 Screening for [facility] malignant neoplasm of colon (procedure) [code = 336148860] Future Scheduled Test 1967 00:00:00 COVID-19 Vaccine (#1) [facility] [code = COVID-19 Vaccine (#1)] Future Scheduled Test 1967 00:00:00 COVID-19 Vaccine (#1) [facility] [code = COVID-19 Vaccine (#1)] Future Scheduled Test 1967 00:00:00 COVID-19 Vaccine (#1) [facility] [code = COVID-19 Vaccine (#1)] Future Scheduled Test 1967 00:00:00 COVID-19 Vaccine (#1) [facility] [code = COVID-19 Vaccine (#1)] Future Scheduled Test 1967 00:00:00 COVID-19 Vaccine (#1) [facility] [code = COVID-19 Vaccine (#1)] Future Scheduled Test 1967 00:00:00 COVID-19 Vaccine (#1) [facility] [code = COVID-19 Vaccine (#1)] Future Scheduled Test 1967 00:00:00 Fluoride Varnish [facility] [code = Fluoride Varnish] Future Scheduled Test 1967 00:00:00 Fluoride Varnish [facility] [code = Fluoride Varnish] Encounters Start End Encounter Admission Attending Care Care Encounter Source Date/Time Date/Time Type Type Clinicians Facility Department ID 2022-01-02 Outpatient [facility] [id number] ID 00:16:[id number] [place] [address] 2016-11-13 Inpatient E [facility] [id number] [facility]. 23:30:00 [facility] 2023-06-05 2023-06-06 Emergency X TUAN IDLEON ERT [id number] Univers 23:18:00 04:57:00 JESSICA [facility] 2023-06-05 2023-06-06 Emergency Agustín Marilou [facility] [id number] Univers 23:18:00 04:57:00 Jessica Thornton ADRIAN [id number] [facility] [id number] [facility] [id number] [place] [address] Branch 2023-01-30 2023-01-30 Outpatient Angela [facility] [id number] Univers 14:50:00 14:50:00 [facility]22-09-04 2022-09-04 Transition JOSE Rhodes [id number] Univers 00:00:00 00:00:00 of Care Marcia [place] [id number] i [id number] [id number] [facility] 403 Branch 2022-08-19 2022-09-02 Inpatient X JUAN [facility] ROBERT [id number] Univers 14:48:00 12:18:00 ENRIQUE ity [facility] 2022-08-19 2022-09-02 [facility] Ursula [facility] [facility] 1 .2.840.114 [id number] Univers 14:48:00 12:18:00 Encounter Enrique Martinez VIVIENNE 350.1.13.10 ity [facility] 4.2.7.2.686 [facility] [id number] [address] 2022-08-11 2022-08-11 Emergency X FAHEEMSYMONE, [facility] ERT [id number] Univers 17:59:00 21:40:00 OTTO perea [facility] 2022-08-11 2022-08-11 Emergency [facility] 1.2.402.605 [id number] Univers 17:59:00 21:40:00 Otto PALAFOX 350.1.13.10 i ty of [place] 4.2.7.[address] [place] [id number] 2022-08-09 2022-08-09 Emergency X [facility] ERT [id number] Univers 08:09:00 09:54:00 HAO perea [facility] 2022-08-09 2022-08-09 Emergency [facility] 1.2.706.728 [id number] Univers 08:09:00 09:54:00 Hao PALAFOX 350.1.13.10 i ty of DANJESUS 4.2.7.2.686 [facility] [id number] [address] 2022-08-08 2022-08-08 Transition JOSE Rhodes 1.2.840.114 [id number] Univers 00:00:00 00:00:00 of Care Marcia ROLLINS 350.1.13.10 i ty of [place]2.[place] [id number] [facility] [address] 2022-08-03 2022-08-06 Inpatient X JOSTIN [facility] ROBERT [id number] Univers 05:04:00 15:42:00 JENNIFER perea of [facility] 2022-08-03 2022-08-06 Hospital Andrea Hernandez [facility] 1.2.840. 114 [id number] Univers 05:04:00 15:42:00 Encounter Kimberlyn Ely 350.1.13.10 ity of Jost[place] Jennifer [place] 4.2.7.2.686 [facility] [id number] [facility] [address] 2022-08-05 2022-08-05 Anesthesia Bharathi Roth [facility] 1.2.8 40.114 [id number] Univers 09:02:00 10:15:00 Event Lamonte Mills 35 0.1.13.10 ity of [place] 4.2.7.2.686 [facility] SURGICAL [id number] [facility] [address] 2022-08-05 2022-08-05 Surgery [facility] 1.2.437.211 [id number] Univers 09:05:00 10:12:00 Matt PALAFOX 350.1.13.10 i ty of [place] 4.2.7.2.686 [facility] SURGICAL [id number] [facility] [address] 2022-07-13 2022-07-13 Emergency X [facility] ERT [id number] Univers 14:11:00 19:47:00 ANN perea of [facility] 2022-07-13 2022-07-13 Emergency [facility] 1.2.456.000 [id number] Univers 14:11:00 19:47:00 Ann PALAFOX 350.1.13.10 ity of [place] 4.2.7.2.686 [facility] [id number] [facility] [address] 2022-06-08 2022-06-08 Urgent Ursula Song [facility] 1.2.840.114 [id number] Univers 14:20:00 14:40:00 Care Joaquin Reyes [facility] 350.1.13.10 ity of [place] 4.2.7.2.686 [place] as KENRICK?BLEA [phone] [place] COTO [address] [place] [address] MEDICAL OFFICE BUILDING 2022-06-08 2022-06-08 Outpatient R AMY [facility] [id number] Univers 14:20:00 14:20:00 [facility] 2022-06-08 2022-06-08 Orders Doctor FOSS 1.2.840.114 [id number] Univers 00:00:00 00:00:00 Only Unassigned, ISSA 350.1.13.10 ity of [place] [facility] 4.2.7.2.686 [place] as [id number] [address] 2022-05-27 2022-05-28 Outpatient X JOSTIN [facility] ROBERT [id number] Univers 14:03:00 11:28:00 JENNIFER perea [facility] 2022-05-27 2022-05-28 Emergency Mariaelena Mata [facility] 1.2.8 40.114 [id number] Univers 14:03:00 11:28:00 Yeyo Rogers 350.1.13.10 ity of Jennifer Frankel 4.2.7.2.686 [facility] [id number] [address] 2022-01-02 2022-01-02 Emergency X [facility] ERT [id number] Univers 00:16:00 01:18:00 NESTOR perea [facility] 2022-01-02 2022-01-02 Emergency Singer [facility] 1.2.354.937 [id number] Univers 00:16:00 01:18:00 Nestor PALAFOX 350.1.13.10 i ty of [place] 4.2.7.2.686 [place] [facility] [id number] [address] 2021-09-27 2021-09-27 Emergency X ROLAN [facility] ERT [id number] Univers 02:16:00 02:45:00 HAO perea [facility] 2021-09-27 2021-09-27 Emergency [facility] 1.2.848.165 [id number] Univers 02:16:00 02:45:00 Hao PALAFOX 350.1.13.10 i ty of [place] 4.2.7.2.686 [facility] s BORON [id number] [facility] [address] 2021-09-27 2021-09-27 Orders Doctor PIPO 1.2.840.114 [id number] 00:00:00 00:00:00 Only Unassigned, ISSA 350.1.13.10 ity of [place] [facility] 4.2.7.2.686 [facility] [id number] [facility] [address] 2020-01-05 2020-01-05 [facility] 1.2.840.114 [id number] 12:30:57 23:59:00 Encounter Pretty GUILLEN 350.1.13.10 [facility] 4.2.7.2.686 [place] [id number] 060 2020-01-05 2020-01-05 [facility] 1.2.840.114 [id number] [facility] 12:30:57 23:59:00 Encounter Onianjana WILMER 350.1.13.10 ity of [facility] 4.2.7.2.[address] [facility] [id number] [facility] [address] 2020-01-05 2020-01-05 Emergency [facility] [id number] 18:04:00 18:04:00 [facility] 2020-01-05 2020-01-05 Emergency [facility] [id number] [address] 18:04:00 18:04:00 -[id number] Theo [facility] 2020-01-05 2020-01-05 Outpatient Angela SMALL [facility] [id number] Univers 00:00:00 00:00:00 PRETTY beck [facility] 2016-12-19 2016-12-20 Inpatient [facility] [id number] Memoria 11:27:00 22:08:00 angela Stanley 03 l [facility] 2016-12-19 2016-12-20 Outpatient Be [facility] [id number] 06:27:00 17:08:00 Luis Fernando Leo 03 2016-11-19 2016-11-19 Emergency [facility] access hospital [id number] Memoria 00:24:00 03:23:00 r [place] 02 [facility] 2016-11-18 2016-11-18 Outpatient Chris [facility] [id number] 18:24:00 21:23:00 Arminda Ramirez 2016-11-12 2016-11-12 Emergency nullFlavo [facility] [id number] Memoria 13:43:00 15:54:00 r [place] [facility] 2016-11-12 2016-11-12 Outpatient Shahla Madden [facility] [id number] 07:43:00 09:54:00 Jonah 2016-11-10 2016-11-11 Inpatient nullFlavo [facility] 50111 [id number] Memoria 03:20:00 20:50:00 r [place] [facility] 2016-11-09 2016-11-11 Outpatient Ela Garvin [facility] [id number] 21:20:00 14:50:00 00 Results Test Description Test Time Test Comments Results Result Comments Source Complete Metabolic Panel 2023-06-06 05:28:22 Test Item Value Reference Range Interpretation Comme nts NA (test code = 2270789702) 139 mmol/L 135-145 K (test code = 2851935996) 3.1 mmol/L 3.5-5.0 L CL (test code = 4637334468) 104 mmol/L 98-108 CO2 TOTAL (test code = 7127878282) 30 mmol/L 23-31 AGAP (test code = 1557338169) 5 2-16 BUN (test code = 3448141791) 15 mg/dL 7-23 GLUCOSE (test code = 4108180770) 103 mg/dL 70-110 CREATININE (test code = 0.86 mg/dL 0.60-1.25 9887061817) TOTAL BILI (test code = 0.6 mg/dL 0.1-1.3 6649916094) CALCIUM (test code = 0484492607) 8.8 mg/dL 8.6-10.6 T PROTEIN (test code = 0924604736) 7.1 g/dL 6.3-8.2 ALBUMIN (test code = 6774036691) 3.9 g/dL 3.5-5.0 ALK PHOS (test code = 4928369768) 56 U/L 34-122 ALTv (test code = 1742-6) 55 U/L 5-50 H AST(SGOT) (test code = 0307205645) 66 U/L 13-40 H eGFR (test code = 1266114802) 92.0 mL/min/1.73m2 HERVE (test code = HERVE) Association [...] tests). Lab Interpretation (test code = Abnormal 76339-6) [facility] [id number] 05:28:01 Test Item Value Reference Range Interpretation Comments LIPASE (test code = 0204984546) 54 U/L 0-220 Lab Interpretation (test code = Normal 84790-7) [facility] with [id number] 05:11:01 Test Item Value Reference Range Interpretation Comments WBC (test code = 7.75 See_Comment [Automated 7690-2) message] The sy stem which generated this result transmitted reference range : 4.20 - 10.70 10*3/?L. The reference range was not used to interpret this result as normal/abnormal . RBC (test code = 4.35 See_Comment [Automated 789-8) message] The sy stem which generated this result transmitted reference range : 4.26 - 5.52 10*6/?L. The reference range was not used to interpret this result as normal/abnormal . HGB (test code = 14.0 g/dL 12.2-16.4 718-7) HCT (test code = 41.9 % 38.4-49.3 4544-3) MCV (test code = 96.3 fL 81.7-95.6 H 787-2) MCH (test code = 32.2 pg 26.1-32.7 785-6) MCHC (test code = 33.4 g/dL 31.2-35.0 786-4) RDW-SD (test code = 44.3 fL 38.5-51.6 58423-5) RDW-CV (test code = 12.5 % 12.1-15.4 788-0) PLT (test code = 190 See_Comment [Automated 777-3) message] The sy stem which generated this result transmitted reference range : 150 - 328 10*3/ ?L. The reference r natasha was not used to interpret this result as normal/abnormal . MPV (test code = 8.3 fL 9.8-13.0 L 88315-9) NRBC/100 WBC (test 0.0 See_Comment [Automat ed code = 0644093162) message] The system which generated this result transmitted reference range : 0.0 - 10.0 /100 WBCs. The refer ence range was not u sed to interpret th is result as normal/abnormal . NRBC x10^3 (test code See_Comment [Auto mated = 8077538728) message] The s ystem which generated this result transmitted reference range : 10*3/?L. The reference range was not used to interpret this result as normal/abnormal . GRAN MAT (NEUT) % 62.5 % (test code = 770-8) IMM GRAN % (test code 0.40 % = 0156188854) LYMPH % (test code = 28.1 % 736-9) MONO % (test code = 5.9 % 5905-5) EOS % (test code = 2.7 % 713-8) BASO % (test code = 0.4 % 706-2) GRAN MAT x10^3(ANC) 4.84 10*3/uL 1.99-6.95 (test code = 3949676993) IMM GRAN x10^3 (test 0.03 10*3/uL 0.00-0.06 code = 6409702542) LYMPH x10^3 (test code 2.18 10*3/uL 1.09-3.23 = 731-0) MONO x10^3 (test code 0.46 10*3/uL 0.36-1.02 = 742-7) EOS x10^3 (test code = 0.21 10*3/uL 0.06-0.53 711-2) BASO x10^3 (test code 0.03 10*3/uL 0.01-0.09 = 704-7) Lab Interpretation Abnormal (test code = 43444-6) [facility] - Draw random trough 09/01/22 at 1545 dose.2022-09-01 23:22:38 Test Item Value Reference Range Interpretation Comments VANCO TROUGH (test code 8.2 ug/mL 10.0-20.0 L = 9332878871) HERVE (test code = HERVE) Toxic Range: ?>20 ug/mL 15-20 ug/mL is recommended for severe infection or when Vancomycin GOPAL is greater than or equal to 2. Lab Interpretation (test Abnormal code = 29883-6) [facility]OLIC [facility] (NA, K, CL, CO2, GLUCOSE, BUN, CREATININE, CA)2022-08-31 12:06:30 Test Item Value Reference Range Interpretation Comments NA (test code = 140 mmol/L 135-145 2823543164) K (test code = 3.9 mmol/L 3.5-5.0 0921988696) CL (test code = 103 mmol/L 98-108 4174108266) CO2 TOTAL (test code 27 mmol/L 23-31 = 3156692177) AGAP (test code = 2-16 4837636828) BUN (test code = 14 mg/dL 7-23 2178306230) GLUCOSE (test code = 98 mg/dL 70-110 4281605985) CREATININE (test code 0.82 mg/dL 0.60-1.25 = 1865100988) CALCIUM (test code = 9.2 mg/dL 8.6-10.6 5218356496) eGFR (test code = mL/min/1.73m2 3395096341) HERVE (test code = HERVE) Association of [...] or urine or abnormalities in imaging tests). [facility] WITH [id number] 11:24:37 Test Item Value Reference Range Interpretation [...] RDW-SD (test code = 41.0 fL 38.5-51.6 21306-5) RDW-CV (test code = 11.9 % 12.1-15.4 L 788-0) PLT (test code = See_Comment [Automated 777-3) message] The sy stem which generated this result transmitted reference range : 150 - 328 10*3/ ?L. The reference r natasha was not used to interpret this result as normal/abnormal . MPV (test code = 8.3 fL 9.8-13.0 L 22565-8) NRBC/100 WBC (test See_Comment [Automat ed code = 9050103382) message] The system which generated this result transmitted reference range : 0.0 - 10.0 /100 WBCs. The refer ence range was not u sed to interpret th is result as normal/abnormal . NRBC x10^3 (test code See_Comment [Auto mated = 6252768247) message] The s ystem which generated this result transmitted reference range : 10*3/?L. The reference range was not used to interpret this result as normal/abnormal . GRAN MAT (NEUT) % 52.7 % (test code = 770-8) IMM GRAN % (test code 0.40 % = 3447093436) LYMPH % (test code = 33.9 % 736-9) MONO % (test code = 8.1 % 5905-5) EOS % (test code = 4.3 % 713-8) BASO % (test code = 0.6 % 706-2) GRAN MAT x10^3(ANC) 4.75 10*3/uL 1.99-6.95 (test code = 2157596801) IMM GRAN x10^3 (test 0.04 10*3/uL 0.00-0.06 code = 7321291034) LYMPH x10^3 (test code 3.06 10*3/uL 1.09-3.23 = 731-0) MONO x10^3 (test code 0.73 10*3/uL 0.36-1.02 = 742-7) EOS x10^3 (test code = 0.39 10*3/uL 0.06-0.53 711-2) BASO x10^3 (test code 0.05 10*3/uL 0.01-0.09 = 704-7) Lab Interpretation Abnormal (test code = 43213-3) [facility] METABOLIC PANEL (NA, K, CL, CO2, GLUCOSE, BUN, CREATININE, CA)2022-08-29 12:26:10 Test Item Value Reference Range Interpretation Comments NA (test code = 137 mmol/L 135-145 2464752261) K (test code = 3.7 mmol/L 3.5-5.0 6934392067) CL (test code = 103 mmol/L 98-108 8766643056) CO2 TOTAL (test code = 26 mmol/L 23-31 9927121202) AGAP (test code = 2-16 0202944951) BUN (test code = 16 mg/dL 7-23 6317606519) GLUCOSE (test code = 126 mg/dL 70-110 H 3308932229) CREATININE (test code = 0.80 mg/dL 0.60-1.25 1217903942) CALCIUM (test code = 8.9 mg/dL 8.6-10.6 4734564798) eGFR (test code = mL/min/1.73m2 3380486442) HERVE (test code = HERVE) Association of [...] tests). Lab Interpretation Abnormal (test code = 19042-4) [facility] WITH [id number] 10:59:58 Test Item Value Reference Range Interpretation Comments WBC (test code = See_Comment [Automated 5349-2) message] The sy stem which generated this result transmitted reference range : 4.20 - 10.70 10*3/?L. The reference range was not used to interpret this result as normal/abnormal . RBC (test code = See_Comment [Automated 104-8) message] The sy stem which generated this [...] RDW-SD (test code = 41.6 fL 38.5-51.6 78213-6) RDW-CV (test code = 12.2 % 12.1-15.4 788-0) PLT (test code = See_Comment [Automated 777-3) message] The sy stem which generated this result transmitted reference range : 150 - 328 10*3/ ?L. The reference r natasha was not used to interpret this result as normal/abnormal . MPV (test code = 8.1 fL 9.8-13.0 L 37869-7) NRBC/100 WBC (test See_Comment [Automat ed code = 2685833911) message] The system which generated this result transmitted reference range : 0.0 - 10.0 /100 WBCs. The refer ence range was not u sed to interpret th is result as normal/abnormal . NRBC x10^3 (test code See_Comment [Auto mated = 3611145636) message] The s ystem which generated this result transmitted reference range : 10*3/?L. The reference range was not used to interpret this result as normal/abnormal . GRAN MAT (NEUT) % 52.2 % (test code = 770-8) IMM GRAN % (test code 0.50 % = 5480490454) LYMPH % (test code = 35.1 % 736-9) MONO % (test code = 6.7 % 5905-5) EOS % (test code = 4.8 % 713-8) BASO % (test code = 0.7 % 706-2) GRAN MAT x10^3(ANC) 4.55 10*3/uL 1.99-6.95 (test code = 4218859179) IMM GRAN x10^3 (test 0.04 10*3/uL 0.00-0.06 code = 7647328762) LYMPH x10^3 (test code 3.06 10*3/uL 1.09-3.23 = 731-0) MONO x10^3 (test code 0.58 10*3/uL 0.36-1.02 = 742-7) EOS x10^3 (test code = 0.42 10*3/uL 0.06-0.53 711-2) BASO x10^3 (test code 0.06 10*3/uL 0.01-0.09 = 704-7) Lab Interpretation Abnormal (test code = 99731-4) [facility] CULTURE [id number] 22:02:01 Test Item Value Reference Range Interpretation Comments Blood Culture-Aerobic No organisms No growth Previo us (test code = 98740-3) isolated prelim inary verified result was Culture In Progress on 08/19/2022 at 1901 CSTPreviou s preliminary verified result was No growth a t 24 hours on 08/20/2022 at 1601 CSTPreviou s preliminary verified result was No growth a t 48 hours on 08/21/2022 at 1601 CSTPreviou s preliminary verified result was No growth a t 72 hours on 08/22/2022 at 1601 APPLICATION ARCHITECT MANAGER Blood No organisms No growth Previous Culture-Anaerobic isolated preliminar y (test code = 01487-4) verifi ed result was Culture In Progress on 08/19/2022 at 1901 CSTPreviou s preliminary verified result was No growth a t 24 hours on 08/20/2022 at 1601 CSTPreviou s preliminary verified result was No growth a t 48 hours on 08/21/2022 at 1601 CSTPreviou s preliminary verified result was No growth a t 72 hours on 08/22/2022 at 1601 APPLICATION ARCHITECT MANAGER Lab Interpretation Normal (test code = 58107-2) [facility] CULTURE [id number] 22:02:01 Test Item Value Reference Range Interpretation Comments Blood Culture-Aerobic No organisms No growth Previo us (test code = 79569-1) isolated prelim inary verified result was Culture In Progress on 08/19/2022 at 1901 CSTPreviou s preliminary verified result was No growth a t 24 hours on 08/20/2022 at 1601 CSTPreviou s preliminary verified result was No growth a t 48 hours on 08/21/2022 at 1601 CSTPreviou s preliminary verified result was No growth a t 72 hours on 08/22/2022 at 1601 APPLICATION ARCHITECT MANAGER Blood No organisms No growth Previous Culture-Anaerobic isolated preliminar y (test code = 86667-8) verifi ed result was Culture In Progress on 08/19/2022 at 1901 CSTPreviou s preliminary verified result was No growth a t 24 hours on 08/20/2022 at 1601 CSTPreviou s preliminary verified result was No growth a t 48 hours on 08/21/2022 at 1601 CSTPreviou s preliminary verified result was No growth a t 72 hours on 08/22/2022 at 1601 APPLICATION ARCHITECT MANAGER Lab Interpretation Normal (test code = 42992-3) [facility] METABOLIC PANEL (NA, K, CL, CO2, GLUCOSE, BUN, CREATININE, CA)2022-08-21 10:38:11 Test Item Value Reference Range Interpretation Comments NA (test code = 137 mmol/L 135-145 6097736275) K (test code = 4.1 mmol/L 3.5-5.0 0807671759) CL (test code = 103 mmol/L 98-108 0634872375) CO2 TOTAL (test code = 29 mmol/L 23-31 1848228857) AGAP (test code = 2-16 6976307025) BUN (test code = 12 mg/dL 7-23 2180571050) GLUCOSE (test code = 121 mg/dL 70-110 H 5600050115) CREATININE (test code = 0.72 mg/dL 0.60-1.25 0745415728) CALCIUM (test code = 8.1 mg/dL 8.6-10.6 L 6688595603) eGFR (test code = mL/min/1.73m2 4764885499) HERVE (test code = HERVE) Association of [...] tests). Lab Interpretation Abnormal (test code = 64795-7) [facility] WITH [id number] 10:18:13 Test Item Value Reference Range Interpretation Comments WBC (test code = See_Comment [Automated 8190-2) message] The sy stem which generated this result transmitted reference range : 4.20 - 10.70 10*3/?L. The reference range was not used to interpret this result as normal/abnormal . RBC (test code = See_Comment L [Automated 909-8) message] The sy stem which generated this [...] RDW-SD (test code = 44.1 fL 38.5-51.6 09151-3) RDW-CV (test code = 12.4 % 12.1-15.4 788-0) PLT (test code = See_Comment [Automated 777-3) message] The sy stem which generated this result transmitted reference range : 150 - 328 10*3/ ?L. The reference r natasha was not used to interpret this result as normal/abnormal . MPV (test code = 8.4 fL 9.8-13.0 L 13794-2) NRBC/100 WBC (test See_Comment [Automat ed code = 6901491611) message] The system which generated this result transmitted reference range : 0.0 - 10.0 /100 WBCs. The refer ence range was not u sed to interpret th is result as normal/abnormal . NRBC x10^3 (test code See_Comment [Auto mated = 2735301783) message] The s ystem which generated this result transmitted reference range : 10*3/?L. The reference range was not used to interpret this result as normal/abnormal . GRAN MAT (NEUT) % 60.0 % (test code = 770-8) IMM GRAN % (test code 0.30 % = 0250998235) LYMPH % (test code = 27.8 % 736-9) MONO % (test code = 7.6 % 5905-5) EOS % (test code = 3.9 % 713-8) BASO % (test code = 0.4 % 706-2) GRAN MAT x10^3(ANC) 5.41 10*3/uL 1.99-6.95 (test code = 0252472971) IMM GRAN x10^3 (test 0.03 10*3/uL 0.00-0.06 code = 1447874453) LYMPH x10^3 (test code 2.51 10*3/uL 1.09-3.23 = 731-0) MONO x10^3 (test code 0.69 10*3/uL 0.36-1.02 = 742-7) EOS x10^3 (test code = 0.35 10*3/uL 0.06-0.53 711-2) BASO x10^3 (test code 0.04 10*3/uL 0.01-0.09 = 704-7) Lab Interpretation Abnormal (test code = 15188-8) [facility] with [id number] 10:57:19 Test Item Value Reference Range Interpretation [...] RDW-SD (test code = 43.2 fL 38.5-51.6 88467-4) RDW-CV (test code = 12.5 % 12.1-15.4 788-0) PLT (test code = See_Comment [Automated 777-3) message] The sy stem which generated this result transmitted reference range : 150 - 328 10*3/ ?L. The reference r natasha was not used to interpret this result as normal/abnormal . MPV (test code = 8.6 fL 9.8-13.0 L 33626-7) NRBC/100 WBC (test See_Comment [Automat ed code = 0418494705) message] The system which generated this result transmitted reference range : 0.0 - 10.0 /100 WBCs. The refer ence range was not u sed to interpret th is result as normal/abnormal . NRBC x10^3 (test code See_Comment [Auto mated = 1736768507) message] The s ystem which generated this result transmitted reference range : 10*3/?L. The reference range was not used to interpret this result as normal/abnormal . GRAN MAT (NEUT) % 69.3 % (test code = 770-8) IMM GRAN % (test code 0.40 % = 2798640685) LYMPH % (test code = 20.5 % 736-9) MONO % (test code = 6.6 % 5905-5) EOS % (test code = 2.8 % 713-8) BASO % (test code = 0.4 % 706-2) GRAN MAT x10^3(ANC) 7.74 10*3/uL 1.99-6.95 H (test code = 9558011118) IMM GRAN x10^3 (test 0.04 10*3/uL 0.00-0.06 code = 3001687642) LYMPH x10^3 (test code 2.28 10*3/uL 1.09-3.23 = 731-0) MONO x10^3 (test code 0.73 10*3/uL 0.36-1.02 = 742-7) EOS x10^3 (test code = 0.31 10*3/uL 0.06-0.53 711-2) BASO x10^3 (test code 0.04 10*3/uL 0.01-0.09 = 704-7) Lab Interpretation Abnormal (test code = 83003-4) [facility] Metabolic Panel (NA, K, CL, CO2, GLUCOSE, BUN, CREATININE, CA)2022-08-20 10:44:38 Test Item Value Reference Range Interpretation Comments NA (test code = 136 mmol/L 135-145 1908508607) K (test code = 3.9 mmol/L 3.5-5.0 3386265726) CL (test code = 105 mmol/L 98-108 9714150165) CO2 TOTAL (test code = 27 mmol/L 23-31 5960490759) AGAP (test code = 2-16 4651075108) BUN (test code = 10 mg/dL 7-23 1705997593) GLUCOSE (test code = 107 mg/dL 70-110 1435112650) CREATININE (test code = 0.80 mg/dL 0.60-1.25 2817613301) CALCIUM (test code = 8.2 mg/dL 8.6-10.6 L 6314319994) eGFR (test code = mL/min/1.73m2 9026999335) HERVE (test code = HERVE) Association of [...] tests). Lab Interpretation Abnormal (test code = 09129-3) [facility]. METABOLIC PANEL (70131)2022-08-19 21:58:25 Test Item Value Reference Range Interpretation Comments NA (test code = 136 mmol/L 135-145 2777798906) K (test code = 3.8 mmol/L 3.5-5.0 7523248606) CL (test code = 102 mmol/L 98-108 6631234898) CO2 TOTAL (test code = 26 mmol/L 23-31 9748493513) AGAP (test code = 2-16 4495936942) BUN (test code = 13 mg/dL 7-23 3396753222) GLUCOSE (test code = 136 mg/dL 70-110 H 2663800408) CREATININE (test code = 0.68 mg/dL 0.60-1.25 3836696588) TOTAL BILI (test code = 0.8 mg/dL 0.1-1.6 4294970615) CALCIUM (test code = 8.9 mg/dL 8.6-10.6 3542802276) T PROTEIN (test code = 7.1 g/dL 6.3-8.2 9534600997) ALBUMIN (test code = 4.1 g/dL 3.5-5.0 3114040566) ALK PHOS (test code = 73 U/L 34-122 1166422690) ALTv (test code = 38 U/L 5-50 1742-6) AST(SGOT) (test code = 40 U/L 13-40 8399951736) eGFR (test code = mL/min/1.73m2 6193124672) HERVE (test code = HERVE) Association of [...] tests). Lab Interpretation Abnormal (test code = 91454-4) [facility] WITH [id number] 21:32:42 Test Item Value Reference Range Interpretation Comments WBC (test code = See_Comment H [Automated 7190-2) message] The system which generated this result [...] RDW-SD (test code = 41.6 fL 38.5-51.6 97009-9) RDW-CV (test code = 12.3 % 12.1-15.4 788-0) PLT (test code = See_Comment [Automated 777-3) message] The system which generated this result transmit sharri reference range : 150 - 328 10*3/ ?L. The reference range was not u sed to interpret th is result as normal/abnormal . MPV (test code = 8.1 fL 9.8-13.0 L 98391-9) NRBC/100 WBC (test See_Comment [Automat ed code = 1974299021) message] The system which generated this result transmit sharri reference range : 0.0 - 10.0 /100 WBCs. The reference range was not used to interpret this result as normal/abnormal . NRBC x10^3 (test code See_Comment [Auto mated = 0274051205) message] The system which generated this result transmit sharri reference range : 10*3/?L. The reference range was not used to interpret this result as normal/abnormal . GRAN MAT (NEUT) % 78.9 % (test code = 770-8) IMM GRAN % (test code 0.50 % = 7246599701) LYMPH % (test code = 13.6 % 736-9) MONO % (test code = 5.2 % 5905-5) EOS % (test code = 1.5 % 713-8) BASO % (test code = 0.3 % 706-2) GRAN MAT x10^3(ANC) 11.10 10*3/uL 1.99-6.95 H (test code = 4553017705) IMM GRAN x10^3 (test 0.07 10*3/uL 0.00-0.06 H code = 1696112314) LYMPH x10^3 (test code 1.92 10*3/uL 1.09-3.23 = 731-0) MONO x10^3 (test code 0.73 10*3/uL 0.36-1.02 = 742-7) EOS x10^3 (test code = 0.21 10*3/uL 0.06-0.53 711-2) BASO x10^3 (test code 0.04 10*3/uL 0.01-0.09 = 704-7) Lab Interpretation Abnormal (test code = 44980-9) [id number] 21:29:41 Test Item Value Reference Range Interpretation Comments LACTIC ACID (test code = 2.21 mmol/L 0.50-2.20 H 2391233819) Lab Interpretation (test code = Abnormal 16285-9) [facility] METABOLIC PANEL (NA, K, CL, CO2, GLUCOSE, BUN, CREATININE, CA)2022-08-12 00:53:51 Test Item Value Reference Range Interpretation Comments NA (test code = 139 mmol/L 135-145 4214565294) K (test code = 3.7 mmol/L 3.5-5.0 1131948342) CL (test code = 103 mmol/L 98-108 8621132307) CO2 TOTAL (test code = 27 mmol/L 23-31 8215956311) AGAP (test code = 2-16 1596391356) BUN (test code = 11 mg/dL 7-23 6444064233) GLUCOSE (test code = 125 mg/dL 70-110 H 1985401377) CREATININE (test code = 0.79 mg/dL 0.60-1.25 4467601353) CALCIUM (test code = 9.3 mg/dL 8.6-10.6 8233492861) eGFR (test code = mL/min/1.73m2 7088020020) HERVE (test code = HERVE) Association of [...] tests). Lab Interpretation Abnormal (test code = 60408-2) [facility] WITH [id number] 00:31:12 Test Item Value Reference Range Interpretation Comments WBC (test code = See_Comment [Automated 9615-2) message] The sy stem which generated this result transmitted reference range : 4.20 - 10.70 10*3/?L. The reference range was not used to interpret this result as normal/abnormal . RBC (test code = See_Comment [Automated 569-5) message] The sy stem which generated this [...] RDW-SD (test code = 41.1 fL 38.5-51.6 82374-9) RDW-CV (test code = 11.9 % 12.1-15.4 L 788-0) PLT (test code = See_Comment [Automated 777-3) message] The sy stem which generated this result transmitted reference range : 150 - 328 10*3/ ?L. The reference r natasha was not used to interpret this result as normal/abnormal . MPV (test code = 8.1 fL 9.8-13.0 L 92687-3) NRBC/100 WBC (test See_Comment [Automat ed code = 9097603543) message] The system which generated this result transmitted reference range : 0.0 - 10.0 /100 WBCs. The refer ence range was not u sed to interpret th is result as normal/abnormal . NRBC x10^3 (test code See_Comment [Auto mated = 6107966884) message] The s ystem which generated this result transmitted reference range : 10*3/?L. The reference range was not used to interpret this result as normal/abnormal . GRAN MAT (NEUT) % 56.7 % (test code = 770-8) IMM GRAN % (test code 0.30 % = 5061105102) LYMPH % (test code = 33.0 % 736-9) MONO % (test code = 6.3 % 5905-5) EOS % (test code = 3.1 % 713-8) BASO % (test code = 0.6 % 706-2) GRAN MAT x10^3(ANC) 5.14 10*3/uL 1.99-6.95 (test code = 3460308888) IMM GRAN x10^3 (test 0.03 10*3/uL 0.00-0.06 code = 8666542636) LYMPH x10^3 (test code 2.99 10*3/uL 1.09-3.23 = 731-0) MONO x10^3 (test code 0.57 10*3/uL 0.36-1.02 = 742-7) EOS x10^3 (test code = 0.28 10*3/uL 0.06-0.53 711-2) BASO x10^3 (test code 0.05 10*3/uL 0.01-0.09 = 704-7) Lab Interpretation Abnormal (test code = 01415-2) [facility] Draw within 30 minutes prior to 4TH dose.2022-08-05 12:43:10 Test Item Value Reference Range Interpretation Comments VANCO TROUGH (test code 9.2 ug/mL 10.0-20.0 L = 3158066407) HERVE (test code = HERVE) Toxic Range: ?>20 ug/mL 15-20 ug/mL is recommended for severe infection or when Vancomycin GOPAL is greater than or equal to 2. Lab Interpretation (test Abnormal code = 31297-3) [facility] Draw within 30 minutes prior to 4TH dose.2022-08-05 12:43:10 Test Item Value Reference Range Interpretation Comments VANCO TROUGH (test code 9.2 ug/mL 10.0-20.0 L = 1897842289) HERVE (test code = HERVE) Toxic Range: ?>20 ug/mL 15-20 ug/mL is recommended for severe infection or when Vancomycin GOPAL is greater than or equal to 2. Lab Interpretation (test Abnormal code = 89450-4) [facility] (NA, K, CL, CO2, GLUCOSE, BUN, CREATININE, CA)2022-08-05 12:37:51 Test Item Value Reference Range Interpretation Comments NA (test code = 139 mmol/L 135-145 2142720613) K (test code = 4.2 mmol/L 3.5-5.0 9184603754) CL (test code = 104 mmol/L 98-108 6909981044) CO2 TOTAL (test code 29 mmol/L 23-31 = 8905835593) AGAP (test code = 2-16 2732992578) BUN (test code = 15 mg/dL 7-23 9906633254) GLUCOSE (test code = 92 mg/dL 70-110 1357348872) CREATININE (test code 0.73 mg/dL 0.60-1.25 = 8560776549) CALCIUM (test code = 8.6 mg/dL 8.6-10.6 9764174526) eGFR (test code = mL/min/1.73m2 8480634858) HERVE (test code = HERVE) Association of [...] or urine or abnormalities in imaging tests). [facility] METABOLIC PANEL (NA, K, CL, CO2, GLUCOSE, BUN, CREATININE, CA)2022-08-05 12:37:51 Test Item Value Reference Range Interpretation Comments NA (test code = 139 mmol/L 135-145 0107281189) K (test code = 4.2 mmol/L 3.5-5.0 1885542859) CL (test code = 104 mmol/L 98-108 6521868267) CO2 TOTAL (test code 29 mmol/L 23-31 = 0713481038) AGAP (test code = 2-16 6286349814) BUN (test code = 15 mg/dL 7-23 8454080410) GLUCOSE (test code = 92 mg/dL 70-110 5347992195) CREATININE (test code 0.73 mg/dL 0.60-1.25 = 1992020780) CALCIUM (test code = 8.6 mg/dL 8.6-10.6 2929227966) eGFR (test code = mL/min/1.73m2 3650862037) HERVE (test code = HERVE) Association of [...] or urine or abnormalities in imaging tests). [facility] WITH [id number] 11:18:06 Test Item Value Reference Range Interpretation [...] RDW-SD (test code = 41.6 fL 38.5-51.6 18676-6) RDW-CV (test code = 11.9 % 12.1-15.4 L 788-0) PLT (test code = See_Comment [Automated 777-3) message] The sy stem which generated this result transmitted reference range : 150 - 328 10*3/ ?L. The reference r natasha was not used to interpret this result as normal/abnormal . MPV (test code = 8.2 fL 9.8-13.0 L 43287-9) NRBC/100 WBC (test See_Comment [Automat ed code = 8361782897) message] The system which generated this result transmitted reference range : 0.0 - 10.0 /100 WBCs. The refer ence range was not u sed to interpret th is result as normal/abnormal . NRBC x10^3 (test code See_Comment [Auto mated = 0486636125) message] The s ystem which generated this result transmitted reference range : 10*3/?L. The reference range was not used to interpret this result as normal/abnormal . GRAN MAT (NEUT) % 55.2 % (test code = 770-8) IMM GRAN % (test code 0.30 % = 0876727182) LYMPH % (test code = 33.2 % 736-9) MONO % (test code = 6.9 % 5905-5) EOS % (test code = 3.8 % 713-8) BASO % (test code = 0.6 % 706-2) GRAN MAT x10^3(ANC) 4.38 10*3/uL 1.99-6.95 (test code = 3249267564) IMM GRAN x10^3 (test 0.00-0.06 code = 6980515830) LYMPH x10^3 (test code 2.64 10*3/uL 1.09-3.23 = 731-0) MONO x10^3 (test code 0.55 10*3/uL 0.36-1.02 = 742-7) EOS x10^3 (test code = 0.30 10*3/uL 0.06-0.53 711-2) BASO x10^3 (test code 0.05 10*3/uL 0.01-0.09 = 704-7) Lab Interpretation Abnormal (test code = 42802-9) [facility] WITH [id number] 11:18:06 Test Item Value Reference Range Interpretation Comments WBC (test code = See_Comment [Automated 3590-2) message] The sy stem which generated this result transmitted reference range : 4.20 - 10.70 10*3/?L. The reference range was not used to interpret this result as normal/abnormal . RBC (test code = See_Comment [Automated 249-8) message] The sy stem which generated this [...] RDW-SD (test code = 41.6 fL 38.5-51.6 61069-4) RDW-CV (test code = 11.9 % 12.1-15.4 L 788-0) PLT (test code = See_Comment [Automated 777-3) message] The sy stem which generated this result transmitted reference range : 150 - 328 10*3/ ?L. The reference r natasha was not used to interpret this result as normal/abnormal . MPV (test code = 8.2 fL 9.8-13.0 L 90677-9) NRBC/100 WBC (test See_Comment [Automat ed code = 5731652714) message] The system which generated this result transmitted reference range : 0.0 - 10.0 /100 WBCs. The refer ence range was not u sed to interpret th is result as normal/abnormal . NRBC x10^3 (test code See_Comment [Auto mated = 4290490524) message] The s ystem which generated this result transmitted reference range : 10*3/?L. The reference range was not used to interpret this result as normal/abnormal . GRAN MAT (NEUT) % 55.2 % (test code = 770-8) IMM GRAN % (test code 0.30 % = 9064638038) LYMPH % (test code = 33.2 % 736-9) MONO % (test code = 6.9 % 5905-5) EOS % (test code = 3.8 % 713-8) BASO % (test code = 0.6 % 706-2) GRAN MAT x10^3(ANC) 4.38 10*3/uL 1.99-6.95 (test code = 0773446030) IMM GRAN x10^3 (test 0.00-0.06 code = 1368102723) LYMPH x10^3 (test code 2.64 10*3/uL 1.09-3.23 = 731-0) MONO x10^3 (test code 0.55 10*3/uL 0.36-1.02 = 742-7) EOS x10^3 (test code = 0.30 10*3/uL 0.06-0.53 711-2) BASO x10^3 (test code 0.05 10*3/uL 0.01-0.09 = 704-7) Lab Interpretation Abnormal (test code = 40575-6) [facility] Test Item Value Reference Range Interpretation Comments Height (test code = in 7134342454) Weight (test code = lbs 3428377570) Systolic BP (test code = mmHg 5524626203) Diastolic BP (test code mmHg = 1370883591) Heart Rate (test code = bpm 9000246730) BSA (test code = 1.74 m2 0851244121) LVOT diameter (test code 2.00 cm = 8356700798) LVOT area (test code = 3.20 cm2 9024345877) LVIDD (test code = 3.90 cm 2490571143) Left Ventricular End 66.7 mL Diastolic Volume by Teichholz Method (test code = 1667944) IVS (test code = 1.12 cm 0569408206) Interventricular Septum 1.12 cm Diastolic Thickness by 2D (test code = 5727593) LVPWD (test code = 1.12 cm 0839589391) PW (test code = 1.12 cm 0.6-1.8 7606260778) EF(Teich) (test code = 58.90 % 4100200544) LVIDS (test code = 2.70 cm 0503253175) Left Ventricular End 27.4 mL Systolic Volume by Teichholz Method (test code = 0083489) FS (test code = 31 % 5228662527) EF - 2D (test code = 58.90 % 33478635) LA size (test code = 3.1 cm 8388672755) TR Peak Warren (test code = 254.2 cm/s 6084451459) Triscuspid Valve mmHg Regurgitation Peak Gradient (test code = 6561510702) LAV(MOD-sp4) (test code 46.20 mL = 5847404516) MV stenosis pressure 1/2 70.1 ms time (test code = 4958976332) MV Peak E Warren (test code 56.2 cm/s = 3495990314) E wave decelartion time 0.23 s (test code = 9050960632) MV Peak A Warren (test code 54.7 cm/s = 7841269657) E/A ratio (test code = ratio 6083880138) MV Prop V (test code = 37.50 cm/s 3617734119) MV E/e' septal (test 14.2 cm/s code = 4801487828) Tapse (test code = 2.37 cm 4614337503) LVOT stroke volume (test 62.40 cm3 code = 9746782746) LVOT peak warren (test code 92.9 cm/s = 2703967779) LVOT mn grad (test code mmHg = 1776207282) AV LVOT peak gradient mmHg (test code = 0458390142) LVOT peak VTI (test code 19.8 cm = 4885639017) LV V1 mean (test code = 61.20 cm/s 0755930225) Aortic valve mean 74.9 cm/s velocity (test code = 1130549773) Ao peak warren (test code = 103.8 cm/s 0045959688) Ao VTI (test code = 21.1 cm 6720887911) AV area by cont VTI 3.0 cm2 (test code = 7497661672) AV area peak warren (test 2.8 cm2 code = 8050211546) Ao max PG (test code = 4.30 mm[Hg] 0697501141) AV peak gradient (test mmHg code = 8374828068) AV valve area (test code 3.00 cm2 = 6005813319) AV mean gradient (test mmHg code = 2861196637) Radiology Study observation (narrative) (test code = 85040-9) HERVE (test code = HERVE) ?Left?Ventricle: Left [...] 2D, color flow Doppler and spectral Doppler. [facility] 17:34:35 Test Item Value Reference Range Interpretation Comments Height (test code = in 1793331060) Weight (test code = lbs 0889644951) Systolic BP (test code = mmHg 7601589994) Diastolic BP (test code mmHg = 0231858856) Heart Rate (test code = bpm 9097034907) BSA (test code = 1.74 m2 5592418753) LVOT diameter (test code 2.00 cm = 7675650767) LVOT area (test code = 3.20 cm2 9493439509) LVIDD (test code = 3.90 cm 3806865919) Left Ventricular End 66.7 mL Diastolic Volume by Teichholz Method (test code = 2117559) IVS (test code = 1.12 cm 2795185283) Interventricular Septum 1.12 cm Diastolic Thickness by 2D (test code = 8333799) LVPWD (test code = 1.12 cm 1964864389) PW (test code = 1.12 cm 0.6-1.3 8901519950) EF(Teich) (test code = 58.90 % 3354675877) LVIDS (test code = 2.70 cm 7808568433) Left Ventricular End 27.4 mL Systolic Volume by Teichholz Method (test code = 8148987) FS (test code = 31 % 6202369580) EF - 2D (test code = 58.90 % 42399630) LA size (test code = 3.1 cm 2182082643) TR Peak Warren (test code = 254.2 cm/s 8166656227) Triscuspid Valve mmHg Regurgitation Peak Gradient (test code = 4442697803) LAV(MOD-sp4) (test code 46.20 mL = 9950545271) MV stenosis pressure 1/2 70.1 ms time (test code = 9546745812) MV Peak E Warren (test code 56.2 cm/s = 9126739013) E wave decelartion time 0.23 s (test code = 7092277795) MV Peak A Warren (test code 54.7 cm/s = 9581485926) E/A ratio (test code = ratio 5516090628) MV Prop V (test code = 37.50 cm/s 5294090623) MV E/e' septal (test 14.2 cm/s code = 0083840530) Tapse (test code = 2.37 cm 0514048509) LVOT stroke volume (test 62.40 cm3 code = 5738014158) LVOT peak warren (test code 92.9 cm/s = 8790999226) LVOT mn grad (test code mmHg = 9681180274) AV LVOT peak gradient mmHg (test code = 7087175303) LVOT peak VTI (test code 19.8 cm = 9387506002) LV V1 mean (test code = 61.20 cm/s 2600680945) Aortic valve mean 74.9 cm/s velocity (test code = 2105055730) Ao peak warren (test code = 103.8 cm/s 7230267167) Ao VTI (test code = 21.1 cm 6616953828) AV area by cont VTI 3.0 cm2 (test code = 0179826886) AV area peak warren (test 2.8 cm2 code = 4992459917) Ao max PG (test code = 4.30 mm[Hg] 6156167637) AV peak gradient (test mmHg code = 9073492952) AV valve area (test code 3.00 cm2 = 6445146851) AV mean gradient (test mmHg code = 4812675479) Radiology Study observation (narrative) (test code = 74009-2) HERVE (test code = HERVE) ?Left?Ventricle: Left [...] 2D, color flow Doppler and spectral Doppler. [facility] [id number] 10:52:18 Test Item Value Reference Range Interpretation Comments ESR (test code = 32229-5) See_Comment [ Automated message] The system Quo[employer] generated this result transmitted ref erence range: 0 - 10 m m/HR. The reference r natasha was not used to interpret this result as normal/abnor mal. Lab Interpretation (test Normal code = 84071-0) [facility] [id number] 10:52:18 Test Item Value Reference Range Interpretation Comments ESR (test code = 73318-5) See_Comment [ Automated message] The system Qu[employer] generated this result transmitted ref erence range: 0 - 10 m m/HR. The reference r natasha was not used to interpret this result as normal/abnor mal. Lab Interpretation (test Normal code = 54704-0) [facility]. METABOLIC PANEL ([id number])2022-08-03 10:39:37 Test Item Value Reference Range Interpretation Comments NA (test code = 136 mmol/L 135-145 3788990148) K (test code = 4.0 mmol/L 3.5-5.0 4041652908) CL (test code = 100 mmol/L 98-108 1370999591) CO2 TOTAL (test code = 28 mmol/L 23-31 0077690994) AGAP (test code = 2-16 4361435353) BUN (test code = 12 mg/dL 7-23 2116158953) GLUCOSE (test code = 181 mg/dL 70-110 H 9751673560) CREATININE (test code = 0.82 mg/dL 0.60-1.25 2993595541) TOTAL BILI (test code = 0.7 mg/dL 0.1-1.2 4362511336) CALCIUM (test code = 8.7 mg/dL 8.6-10.6 5738260712) T PROTEIN (test code = 7.1 g/dL 6.3-8.2 0684726551) ALBUMIN (test code = 4.1 g/dL 3.5-5.0 6430140471) ALK PHOS (test code = 71 U/L 34-122 0851426416) ALTv (test code = 35 U/L 5-50 2-6) AST(SGOT) (test code = 46 U/L 13-40 H 9192846429) eGFR (test code = mL/min/1.73m2 9459173231) HERVE (test code = HERVE) Association of [...] tests). Lab Interpretation Abnormal (test code = 79366-6) [facility]. METABOLIC PANEL ([id number])2022-08-03 10:39:37 Test Item Value Reference Range Interpretation Comments NA (test code = 136 mmol/L 135-145 9588794781) K (test code = 4.0 mmol/L 3.5-5.0 3114524735) CL (test code = 100 mmol/L 98-108 9815864014) CO2 TOTAL (test code = 28 mmol/L 23-31 6335165500) AGAP (test code = 2-16 4680928062) BUN (test code = 12 mg/dL 7-23 7142837225) GLUCOSE (test code = 181 mg/dL 70-110 H 0398998203) CREATININE (test code = 0.82 mg/dL 0.60-1.25 1727360506) TOTAL BILI (test code = 0.7 mg/dL 0.1-1.6 2160689934) CALCIUM (test code = 8.7 mg/dL 8.6-10.6 1940716936) T PROTEIN (test code = 7.1 g/dL 6.3-8.2 7207035437) ALBUMIN (test code = 4.1 g/dL 3.5-5.0 2267398008) ALK PHOS (test code = 71 U/L 34-122 5224694566) ALTv (test code = 35 U/L 5-50 1742-6) AST(SGOT) (test code = 46 U/L 13-40 H 3029635229) eGFR (test code = mL/min/1.73m2 0403655110) HERVE (test code = HERVE) Association of [...] tests). Lab Interpretation Abnormal (test code = 20279-6) [facility] WITH [id number] 10:26:39 Test Item Value Reference Range Interpretation Comments WBC (test code = See_Comment H [Automated 5890-2) message] The sy stem which generated this result transmitted reference range : 4.20 - 10.70 10*3/?L. The reference range was not used to interpret this result as normal/abnormal . RBC (test code = See_Comment [Automated 979-8) message] The sy stem which generated this [...] RDW-SD (test code = 41.1 fL 38.5-51.6 19588-2) RDW-CV (test code = 11.9 % 12.1-15.4 L 788-0) PLT (test code = See_Comment [Automated 777-3) message] The sy stem which generated this result transmitted reference range : 150 - 328 10*3/ ?L. The reference r natasha was not used to interpret this result as normal/abnormal . MPV (test code = 8.0 fL 9.8-13.0 L 60261-2) NRBC/100 WBC (test See_Comment [Automat ed code = 0502433623) message] The system which generated this result transmitted reference range : 0.0 - 10.0 /100 WBCs. The refer ence range was not u sed to interpret th is result as normal/abnormal . NRBC x10^3 (test code See_Comment [Auto mated = 7642423574) message] The s ystem which generated this result transmitted reference range : 10*3/?L. The reference range was not used to interpret this result as normal/abnormal . GRAN MAT (NEUT) % 66.5 % (test code = 770-8) IMM GRAN % (test code 0.40 % = 9450863258) LYMPH % (test code = 24.1 % 736-9) MONO % (test code = 6.1 % 5905-5) EOS % (test code = 2.5 % 713-8) BASO % (test code = 0.4 % 706-2) GRAN MAT x10^3(ANC) 7.62 10*3/uL 1.99-6.95 H (test code = 7826971944) IMM GRAN x10^3 (test 0.05 10*3/uL 0.00-0.06 code = 7889255178) LYMPH x10^3 (test code 2.76 10*3/uL 1.09-3.23 = 731-0) MONO x10^3 (test code 0.70 10*3/uL 0.36-1.02 = 742-7) EOS x10^3 (test code = 0.29 10*3/uL 0.06-0.53 711-2) BASO x10^3 (test code 0.05 10*3/uL 0.01-0.09 = 704-7) Lab Interpretation Abnormal (test code = 64057-3) [facility] WITH [id number] 10:26:39 Test Item Value Reference Range Interpretation [...] RDW-SD (test code = 41.1 fL 38.5-51.6 85161-6) RDW-CV (test code = 11.9 % 12.1-15.4 L 788-0) PLT (test code = See_Comment [Automated 777-3) message] The sy stem which generated this result transmitted reference range : 150 - 328 10*3/ ?L. The reference r natasha was not used to interpret this result as normal/abnormal . MPV (test code = 8.0 fL 9.8-13.0 L 39739-6) NRBC/100 WBC (test See_Comment [Automat ed code = 4303992342) message] The system which generated this result transmitted reference range : 0.0 - 10.0 /100 WBCs. The refer ence range was not u sed to interpret th is result as normal/abnormal . NRBC x10^3 (test code See_Comment [Auto mated = 7177971688) message] The s ystem which generated this result transmitted reference range : 10*3/?L. The reference range was not used to interpret this result as normal/abnormal . GRAN MAT (NEUT) % 66.5 % (test code = 770-8) IMM GRAN % (test code 0.40 % = 2305277309) LYMPH % (test code = 24.1 % 736-9) MONO % (test code = 6.1 % 5905-5) EOS % (test code = 2.5 % 713-8) BASO % (test code = 0.4 % 706-2) GRAN MAT x10^3(ANC) 7.62 10*3/uL 1.99-6.95 H (test code = 8369293069) IMM GRAN x10^3 (test 0.05 10*3/uL 0.00-0.06 code = 9633538515) LYMPH x10^3 (test code 2.76 10*3/uL 1.09-3.23 = 731-0) MONO x10^3 (test code 0.70 10*3/uL 0.36-1.02 = 742-7) EOS x10^3 (test code = 0.29 10*3/uL 0.06-0.53 711-2) BASO x10^3 (test code 0.05 10*3/uL 0.01-0.09 = 704-7) Lab Interpretation Abnormal (test code = 51575-9) [facility] ([id number][facility]-13 20:47:58 Test Item Value Reference Range Interpretation Comments NA (test code = 140 mmol/L 135-145 8384777308) K (test code = 3.4 mmol/L 3.5-5 L 1840633859) CL (test code = 103 mmol/L 98-108 7804485676) CO2 TOTAL (test code = 31 mmol/L 23-31 6553701912) AGAP (test code = 2-16 8396226356) BUN (test code = 12 mg/dL 7-23 0274556141) GLUCOSE (test code = 118 mg/dL 70-110 H 8315661570) CREATININE (test code = 0.82 mg/dL 0.6-1.25 3953475179) TOTAL BILI (test code = 0.4 mg/dL 0.1-1.7 4302032242) CALCIUM (test code = 8.8 mg/dL 8.6-10.6 2113243577) T PROTEIN (test code = 7.2 g/dL 6.3-8.2 9075329645) ALBUMIN (test code = 4.2 g/dL 3.5-5 8612739293) ALK PHOS (test code = 82 U/L 34-122 3047621202) ALTv (test code = 53 U/L 5-50 H 1742-6) AST(SGOT) (test code = 71 U/L 13-40 H 1134370124) eGFR (test code = mL/min/1.73m2 9511730160) HERVE (test code = HERVE) Association of [...] tests). Lab Interpretation Abnormal (test code = 95283-6) [facility] WITH [id number] 20:38:38 Test Item Value Reference Range Interpretation [...] RDW-SD (test code = 41.0 fL 38.5-51.6 15216-2) RDW-CV (test code = 11.9 % 12.1-15.4 L 788-0) PLT (test code = See_Comment [Automated 777-3) message] The sy stem which generated this result transmitted reference range : 150 - 328 10*3/ ?L. The reference r natasha was not used to interpret this result as normal/abnormal . MPV (test code = 8.5 fL 9.8-13 L 09106-6) NRBC/100 WBC (test See_Comment [Automat ed code = [id number]) message] The system which generated this result transmitted reference range : 0.0 - 10.0 /100 WBCs. The refer ence range was not u sed to interpret th is result as normal/abnormal . NRBC x10^3 (test code See_Comment [Auto mated = [id number]) message] The s ystem which generated this result transmitted reference range : 10*3/?L. The reference range was not used to interpret this result as normal/abnormal . GRAN MAT (NEUT) % 57.5 % (test code = 770-8) IMM GRAN % (test code 0.40 % = 0187377434) LYMPH % (test code = 31.6 % 736-9) MONO % (test code = 6.4 % 5905-5) EOS % (test code = 3.5 % 713-8) BASO % (test code = 0.6 % 706-2) GRAN MAT x10^3(ANC) 5.23 10*3/uL 1.99-6.95 (test code = 7600032838) IMM GRAN x10^3 (test 0.04 10*3/uL 0-0.06 code = [id number]) LYMPH x10^3 (test code 2.87 10*3/uL 1.09-3.23 = 731-0) MONO x10^3 (test code 0.58 10*3/uL 0.36-1.02 = 742-7) EOS x10^3 (test code = 0.32 10*3/uL 0.06-0.53 711-2) BASO x10^3 (test code 0.05 10*3/uL 0.01-0.09 = 704-7) Lab Interpretation Abnormal (test code = 84125-6) [facility] [id number] 20:00:10 Test Item Value Reference Interpretation Comments Range TROPONIN I (test 0.002 ng/mL See_Comment [Automated code = 5274602255) message] The system which generated this result [...] biotin. Lab Interpretation Normal (test code = 51006-7) [facility]. METABOLIC PANEL (30993)2022-05-27 19:49:33 Test Item Value Reference Range Interpretation Comments NA (test code = 139 mmol/L 135-145 5913575805) K (test code = 3.4 mmol/L 3.5-5 L 2201395547) CL (test code = 104 mmol/L 98-108 3153944167) CO2 TOTAL (test code = 28 mmol/L 23-31 3362597629) AGAP (test code = 2-16 6801890737) BUN (test code = 19 mg/dL 7-23 9787603079) GLUCOSE (test code = 101 mg/dL 70-110 5694516967) CREATININE (test code = 1.02 mg/dL 0.6-1.25 3736617453) TOTAL BILI (test code = 1.3 mg/dL 0.1-1.1 H 9490786018) CALCIUM (test code = 9.0 mg/dL 8.6-10.6 6848697366) T PROTEIN (test code = 7.0 g/dL 6.3-8.2 2842054744) ALBUMIN (test code = 4.3 g/dL 3.5-5 2307018048) ALK PHOS (test code = 70 U/L 34-122 1852043306) ALTv (test code = 37 U/L 5-50 1742-6) AST(SGOT) (test code = 42 U/L 13-40 H 3059000504) eGFR (test code = mL/min/1.73m2 6846120335) HERVE (test code = HERVE) Association of [...] tests). Lab Interpretation Abnormal (test code = 34195-8) [facility] [id number] 19:48:48 Test Item Value Reference Range Interpretation Comments CK (test code = 8724215401) 159 U/L 33-194 Lab Interpretation (test code = Normal 66678-4) [facility] [id number] 19:26:48 Test Item Value Reference Range Interpretation Comments WBC (test code = See_Comment [Automated 5590-2) message] The sy stem which generated this result transmitted reference range : 4.20 - 10.70 10*3/?L. The reference range was not used to interpret this result as normal/abnormal . RBC (test code = See_Comment [Automated 699-8) message] The sy stem which generated this [...] RDW-SD (test code = 42.5 fL 38.5-51.6 41759-8) RDW-CV (test code = 12.2 % 12.1-15.4 788-0) PLT (test code = See_Comment [Automated 777-3) message] The sy stem which generated this result transmitted reference range : 150 - 328 10*3/ ?L. The reference r natasha was not used to interpret this result as normal/abnormal . MPV (test code = 8.0 fL 9.8-13 L 43417-5) NRBC/100 WBC (test See_Comment [Automat ed code = 5331315737) message] The system which generated this result transmitted reference range : 0.0 - 10.0 /100 WBCs. The refer ence range was not u sed to interpret th is result as normal/abnormal . NRBC x10^3 (test code See_Comment [Auto mated = 0244388543) message] The s ystem which generated this result transmitted reference range : 10*3/?L. The reference range was not used to interpret this result as normal/abnormal . GRAN MAT (NEUT) % 54.4 % (test code = 770-8) IMM GRAN % (test code 0.30 % = 2347459619) LYMPH % (test code = 32.4 % 736-9) MONO % (test code = 9.2 % 5905-5) EOS % (test code = 3.3 % 713-8) BASO % (test code = 0.4 % 706-2) GRAN MAT x10^3(ANC) 4.06 10*3/uL 1.99-6.95 (test code = 5166578252) IMM GRAN x10^3 (test 0-0.06 code = 0671846596) LYMPH x10^3 (test code 2.42 10*3/uL 1.09-3.23 = 731-0) MONO x10^3 (test code 0.69 10*3/uL 0.36-1.02 = 742-7) EOS x10^3 (test code = 0.25 10*3/uL 0.06-0.53 711-2) BASO x10^3 (test code 0.03 10*3/uL 0.01-0.09 = 704-7) Lab Interpretation Abnormal (test code = 89840-7) [facility] Huliz3764-22-95 08:29:05 Test Item Value Reference Range Interpretation [...] A/G 1.4 ratio N Ratio) Comprehensive Metabolic Xhpve9981-91-76 08:29:05 Test Item Value Reference Range Interpretation [...] National Kid[employer] Foundation, http://nkdep.ni h.gov Comprehensive Metabolic Sqofj0818-57-19 08:29:05 Test Item Value Reference Range Interpretation [...] disease than se rum creatinine alone.This calculation mayr es sex and race in to account, [...] Foundation, http://nkdep.ni h.gov Complete Blood Count without Kzgc0618-61-54 08:07:00 Test Item Value Reference Range Interpretation [...] code = IPF) 0 % N RPR Xgjpvwsthms0577-95-07 11:58:31 Test Item Value Reference Range Interpretation [...] = 09-30-2020 N Expiration Dt) Thyroid Stimulating Tvbutvy0733-66-32 07:31:59 Test Item Value Reference Range Interpretation Comments TSH (test code = TSH) 1.000 mIU/mL 0.270-4.200 Lipid Mbhgt3351-73-15 07:11:41 Test Item Value Reference Range Interpretation Comments Cholesterol Total 176 mg/dL 0-200 RISK OF HE ART (test code = DISEASEPublishe d by Cholesterol Total) [place] [employer] Maria G lyte Optimal Borderl ine Increased RiskC HOL <200 200-239 >240TRI G <150 150-199 >200HDL Male >60 <40HDL Fema le >60 <50LDL <100 130 -159 >160LDL [facility] is 100-129 Triglycerides (test 68 mg/dL 9-200 [...] is LDL/HDL Ratio=L DL Calc/HDL Chol DRUG [id number] 13:01:00 Test Item Value Reference Range Interpretation Comments U Opiate Scr (test Negative *NA*(12/19/16 code = U Opiate Scr) 8:01 AM) [facility] JSHHYL7135-94-35 13:01:00 Test Item Value Reference Range Interpretation Comments U Cannab Scr (test Negative *NA*(12/19/16 code = U Cannab Scr) 8:01 AM) [facility] [id number] 13:01:00 Test Item Value Reference Range Interpretation Comments U Amph Scr (test code Positive *ABN*(12/19/16 = U Amph Scr) 8:01 AM) [facility] [id number] 13:01:00 Test Item Value Reference Range Interpretation Comments U Ysabel Scr (test code Negative *NA*(12/19/16 = U Ysabel Scr) 8:01 AM) [facility] EFMEVX5004-04-08 13:01:00 Test Item Value Reference Range Interpretation Comments U Benzodia Scr (test Negative *NA*(12/19/16 code = U Benzodia Scr) 8:01 AM) [facility] PBRJQS6709-31-78 13:01:00 Test Item Value Reference Range Interpretation Comments U Cocaine Scr (test Negative *NA*(12/19/16 code = U Cocaine Scr) 8:01 AM) [facility] GLMJJF0319-23-35 13:01:00 Test Item Value Reference Range Interpretation Comments UDS Note (test code = See Note (12/19/16 8:01 UDS Note) AM) [facility] [id number] 13:01:00 Test Item Value Reference Range Interpretation Comments U Phencyc Scr (test Negative *NA*(12/19/16 code = U Phencyc Scr) 8:01 AM) [facility] [employer] CWCAA6348-30-09 03:24:00 Test Item Value Reference Range Interpretation Comments Creatinine Lvl (test code = Creatinine 0.90 0.50-1.40 Lvl) [facility] [employer] PNTST8839-10-16 03:24:00 Test Item Value Reference Range Interpretation Comments eGFR (test code = eGFR) 100 [facility] [id number] 03:24:00 Test Item Value Reference Range Interpretation Comments AGAP (test code = AGAP) 18.1 10.0-20.0 [facility] [employer] [id number] 03:24:00 Test Item Value Reference Range Interpretation Comments CO2 (test code = CO2) 22 24-32 [facility] [employer] CJXPL5966-43-06 03:24:00 Test Item Value Reference Range Interpretation Comments Chloride Lvl (test code = Chloride Lvl) 97 95-109 [facility] [employer] LRRZZ8608-61-55 03:24:00 Test Item Value Reference Range Interpretation Comments Calcium Lvl (test code = Calcium Lvl) 8.7 8.5-10.5 [facility] [employer] [id number] 03:24:00 Test Item Value Reference Range Interpretation Comments Potassium Lvl (test code = Potassium 4.1 3.5-5.1 Lvl) [facility] [employer] [id number] 03:24:00 Test Item Value Reference Range Interpretation Comments Sodium Lvl (test code = Sodium Lvl) 133 135-145 [facility] [employer] [id number] 03:24:00 Test Item Value Reference Range Interpretation Comments Glucose Lvl (test code = Glucose Lvl) 92 70-99 [facility] [employer] [id number] 03:24:00 Test Item Value Reference Range Interpretation Comments BUN (test code = BUN) 12 7-22 [facility] RVX [id number] 02:24:00 Test Item Value Reference Range Interpretation Comments ABO/Rh (test code = ABO/Rh) O NEG [facility] RVX [id number] 02:24:00 Test Item Value Reference Range Interpretation Comments Antibody Scrn (test Negative (11/18/16 8:24 code = Antibody Scrn) PM) [facility] [id number] 02:24:00 Test Item Value Reference Range Interpretation Comments U Cocaine Scr (test Positive *ABN*(11/18/16 code = U Cocaine Scr) 8:24 PM) [facility] [employer] [id number] 02:24:00 Test Item Value Reference Range Interpretation Comments U Benzodia Scr (test Negative *NA*(11/18/16 code = U Benzodia Scr) 8:24 PM) [facility] [id number] 02:24:00 Test Item Value Reference Range Interpretation Comments U Amph Scr (test code Negative *NA*(11/18/16 = U Amph Scr) 8:24 PM) [facility] [id number] 02:24:00 Test Item Value Reference Range Interpretation Comments U Opiate Scr (test Positive *ABN*(11/18/16 code = U Opiate Scr) 8:24 PM) [facility] [id number] 02:24:00 Test Item Value Reference Range Interpretation Comments U Cannab Scr (test Negative *NA*(11/18/16 code = U Cannab Scr) 8:24 PM) [facility] [id number] 02:24:00 Test Item Value Reference Range Interpretation Comments U Ysabel Scr (test code Negative *NA*(11/18/16 = U Ysabel Scr) 8:24 PM) [facility] [id number] 02:24:00 Test Item Value Reference Range Interpretation Comments U Phencyc Scr (test Negative *NA*(11/18/16 code = U Phencyc Scr) 8:24 PM) [facility] [id number] 02:24:00 Test Item Value Reference Range Interpretation Comments UDS Note (test code = See Note (11/18/16 8:24 UDS Note) PM) [facility] [id number] 02:24:00 Test Item Value Reference Range Interpretation Comments U Propoxyph Scr (test Negative *NA*(11/18/16 code = U Propoxyph Scr) 8:24 PM) [facility] [id number] 02:24:00 Test Item Value Reference Range Interpretation Comments U Methadone Scr (test Negative *NA*(11/18/16 code = U Methadone Scr) 8:24 PM) [facility] HospitalSjpmvxiYLMXUUNNTY7163-34-57 02:24:00 Test Item Value Reference Range Interpretation Comments Monocytes # (test code = Monocytes #) 0.7 <=0.8 [facility] IrlxlbcPYZRPLKFAY3588-02-36 02:24:00 Test Item Value Reference Range Interpretation Comments Basophils # (test code = Basophils #) 0.1 <=0.2 [facility] LxxksuoDAWISFVIWD7123-20-04 02:24:00 Test Item Value Reference Range Interpretation Comments Eosinophils # (test code = Eosinophils 0.1 <=0.5 #) [facility] VaoccwiQYDCQPCDDE1331-03-55 02:24:00 Test Item Value Reference Range Interpretation Comments Segs (test code = Segs) 72.1 45.0-75.0 [facility]vineFbnngbpGWUAFHSEQN6071-32-37 02:24:00 Test Item Value Reference Range Interpretation Comments Lymphocytes (test code = Lymphocytes) 20.2 20.0-40.0 [facility]vineRbzmgdxFGKEFOFMKS0781-03-12 02:24:00 Test Item Value Reference Range Interpretation Comments Monocytes (test code = Monocytes) 6.1 2.0-12.0 [facility]vineEzrypjrYJFLYKZRTN1317-29-09 02:24:00 Test Item Value Reference Range Interpretation Comments Segs-Bands # (test code = Segs-Bands #) 8.2 1.5-8.1 [facility]vineEywiahtCWCEWHNLPQ2651-71-10 02:24:00 Test Item Value Reference Range Interpretation Comments Eosinophils (test code = Eosinophils) 0.9 <=4.0 [facility]rapevineYscbyrwNBWQPNZIIE7116-37-24 02:24:00 Test Item Value Reference Range Interpretation Comments Basophils (test code = Basophils) 0.7 <=1.0 [facility]rapevineHrlufklDVNRAEKHFZ1542-97-30 02:24:00 Test Item Value Reference Range Interpretation Comments Lymphocytes # (test code = Lymphocytes 2.3 1.0-5.5 #) [facility]rapevineCvzeuykDWCZDDLRFN9882-23-89 02:24:00 Test Item Value Reference Range Interpretation Comments RBC Morph (test code = Normal (11/18/16 8:24 RBC Morph) PM) [facility]rapevineUwjeiotUVKFNSPRTX9532-42-37 02:24:00 Test Item Value Reference Range Interpretation Comments Plt Morph (test code = Normal (11/18/16 8:24 Plt Morph) PM) [facility] GrapevineZprhpgdGNAKMSSCTA4665-00-52 02:24:00 Test Item Value Reference Range Interpretation Comments Hgb (test code = Hgb) 15.2 14.0-18.0 [facility] GrapevineNhhyfljLHXSLZRKBB5366-17-91 02:24:00 Test Item Value Reference Range Interpretation Comments WBC (test code = WBC) 11.3 3.7-10.4 [facility]rapevineWhsnxluSAEXRKPRQK9262-98-35 02:24:00 Test Item Value Reference Range Interpretation Comments Hct (test code = Hct) 43.2 42.0-54.0 [facility]rapevineFqxcgsgDIGZTMDSXT1044-64-99 02:24:00 Test Item Value Reference Range Interpretation Comments MCHC (test code = MCHC) 35.1 32.0-36.0 [facility] GrapevineAffjartIRUTSSCEMO1961-06-64 02:24:00 Test Item Value Reference Range Interpretation Comments RBC (test code = RBC) 4.57 4.70-6.10 [facility] GrapevineAburiiwAEKLBIJRBK3162-36-39 02:24:00 Test Item Value Reference Range Interpretation Comments MCV (test code = MCV) 94.6 80.0-94.0 [facility] GrapevineGoqjreaZSABWJOTKZ8322-68-16 02:24:00 Test Item Value Reference Range Interpretation Comments RDW (test code = RDW) 12.5 11.5-14.5 [facility] GrapevineOeyygxeBLXRQDDTGL6626-97-06 02:24:00 Test Item Value Reference Range Interpretation Comments MCH (test code = MCH) 33.2 pg 27.0-31.0 [facility] GrapevineFbrrdhmGQWEEGNJNF8065-22-38 02:24:00 Test Item Value Reference Range Interpretation Comments MPV (test code = MPV) 6.6 7.4-10.4 [facility] GrapevineJqitppqMUSEFNJKDD1640-71-81 02:24:00 Test Item Value Reference Range Interpretation Comments Platelet (test code = Platelet) 231 133-450 [facility] GrapevineQgjxqfmTVXPERNPYQ7714-44-63 02:24:00 Test Item Value Reference Range Interpretation Comments PT (test code = PT) 13.1 s 12.0-14.7 [facility]rapevineDhofuaaOJWDYBJIWV5033-17-46 02:24:00 Test Item Value Reference Range Interpretation Comments INR (test code = INR) 0.97 0.85-1.17 [facility] GrapevineBovlisdNPODYQPGGI7389-32-47 02:24:00 Test Item Value Reference Range Interpretation Comments PTT (test code = PTT) 27.1 s 22.9-35.8 [facility]2017-02-11 08:16:00 Test Item Value Reference Range Interpretation Comments Lactic Acid Lvl (test code = Lactic 1.5 0.5-2.2 Acid Lvl) [facility]2017-02-11 03:15:00 Test Item Value Reference Range Interpretation Comments Lactic Acid Lvl (test code = Lactic 2.9 0.5-2.2 Acid Lvl) [facility]2017-02-10 15:09:00 Test Item Value Reference Range Interpretation Comments Lactic Acid Lvl (test code = Lactic 3.9 0.5-2.2 Acid Lvl) [place] 02009-02-10 08:26:00 Test Item Value Reference Range Interpretation Comments INR (test code = INR) 1.12 0.85-1.17 [facility]vineUdveatuUOXIHAGPHE4445-36-32 08:26:00 Test Item Value Reference Range Interpretation Comments PT (test code = PT) 14.6 s 12.0-14.7 [facility] AND [id number] 07:15:02 Test Item Value Reference Range Interpretation Comments UA RBC (test code = UA RBC) 0-2 /HPF <=2 [facility] AND [id number] 07:15:02 Test Item Value Reference Range Interpretation Comments UA WBC (test code = UA None Seen (11/10/16 1:15 WBC) AM) [facility] AND [id number] 07:15:02 Test Item Value Reference Range Interpretation Comments UA Sq Epi (test code = None Seen (11/10/16 1:15 UA Sq Epi) AM) [facility] AND [id number] 07:15:02 Test Item Value Reference Range Interpretation Comments UA Bacteria (test code = None Seen (11/10/16 UA Bacteria) 1:15 AM) [facility] AND [id number] 07:15:02 Test Item Value Reference Range Interpretation Comments UA Nitrite (test code Negative (11/10/16 1:15 = UA Nitrite) AM) [facility] AND [id number] 07:15:02 Test Item Value Reference Range Interpretation Comments UA Leuk Est (test Negative (11/10/16 1:15 code = UA Leuk Est) AM) [facility] AND [id number] 07:15:02 Test Item Value Reference Range Interpretation Comments UA Color (test code = Yellow *NA*(11/10/16 UA Color) 1:15 AM) [facility] AND [id number] 07:15:02 Test Item Value Reference Range Interpretation Comments UA pH (test code = UA pH) 5.5 1 5.0-8.0 [facility] AND [id number] 07:15:02 Test Item Value Reference Range Interpretation Comments UA Protein (test code Negative (11/10/16 1:15 = UA Protein) AM) [facility] AND [id number] 07:15:02 Test Item Value Reference Range Interpretation Comments UA Glucose (test code Negative (11/10/16 1:15 = UA Glucose) AM) [facility] [id number] 07:15:02 Test Item Value Reference Range Interpretation Comments UA Ketones (test code = UA Ketones) 15 mg/dL [facility] [id number] 07:15:02 Test Item Value Reference Range Interpretation Comments UA Bili (test code = Negative *NA*(11/10/16 UA Bili) 1:15 AM) [facility] [id number] 07:15:02 Test Item Value Reference Range Interpretation Comments UA Blood (test code = Negative (11/10/16 1:15 UA Blood) AM) [facility] [id number] 07:15:02 Test Item Value Reference Range Interpretation Comments UA Urobilinogen (test code = UA 0.2 0.1-1.0 Urobilinogen) [facility] MHEBC7320-02-17 07:15:02 Test Item Value Reference Range Interpretation Comments UA Turbidity (test code = Clear (11/10/16 1:15 UA Turbidity) AM) [facility] [id number] 07:15:02 Test Item Value Reference Range Interpretation Comments UA Spec Grav (test code = UA Spec 1.047 1 Grav) [facility] VXRLOE9314-37-78 07:15:00 Test Item Value Reference Range Interpretation Comments UDS Note (test code = See Note (11/10/16 1:15 UDS Note) AM) [facility] [id number] 07:15:00 Test Item Value Reference Range Interpretation Comments U Opiate Scr (test Positive *ABN*(11/10/16 code = U Opiate Scr) 1:15 AM) [facility] [id number] 07:15:00 Test Item Value Reference Range Interpretation Comments U Phencyc Scr (test Negative *NA*(11/10/16 code = U Phencyc Scr) 1:15 AM) [facility] FHLTVM4046-78-84 07:15:00 Test Item Value Reference Range Interpretation Comments U Cannab Scr (test Negative *NA*(11/10/16 code = U Cannab Scr) 1:15 AM) [facility] QVMVGJ7730-73-08 07:15:00 Test Item Value Reference Range Interpretation Comments U Cocaine Scr (test Positive *ABN*(11/10/16 code = U Cocaine Scr) 1:15 AM) [facility] KWFQZF2452-39-36 07:15:00 Test Item Value Reference Range Interpretation Comments U Ysaebl Scr (test code Negative *NA*(11/10/16 = U Ysabel Scr) 1:15 AM) [facility]2017-02-10 07:15:00 Test Item Value Reference Range Interpretation Comments U Benzodia Scr (test Negative *NA*(11/10/16 code = U Benzodia Scr) 1:15 AM) [facility]2017-02-10 07:15:00 Test Item Value Reference Range Interpretation Comments U Amph Scr (test code Negative *NA*(11/10/16 = U Amph Scr) 1:15 AM) [facility]FatpjgbZFXCPWUNFHGI3146-86-71 03:40:00 Test Item Value Reference Range Interpretation Comments AGAP (test code = AGAP) 18.2 10.0-20.0 [facility] HospitalJtdwqnrDBNHITBAVJVE9182-80-61 03:40:00 Test Item Value Reference Range Interpretation Comments eGFR (test code = eGFR) 86 [facility] HospitalPwbevtcGZNQJERFXULD2944-99-86 03:40:00 Test Item Value Reference Range Interpretation Comments Sodium Lvl (test code = Sodium Lvl) 137 135-145 [facility] HospitalVvxkvayVMUIFNKECLPP7292-07-16 03:40:00 Test Item Value Reference Range Interpretation Comments CO2 (test code = CO2) 24 24-32 [facility] HospitalLxjrtgfMROPWMFFIWBV6452-59-87 03:40:00 Test Item Value Reference Range Interpretation Comments Chloride Lvl (test code = Chloride Lvl) 98 95-109 [facility] HospitalOginthtXZOWDEMCHHWS1117-70-69 03:40:00 Test Item Value Reference Range Interpretation Comments Potassium Lvl (test code = Potassium 3.2 3.5-5.1 Lvl) [facility] HospitalXkqhevqIRZJSFQFGBZG7547-78-24 03:40:00 Test Item Value Reference Range Interpretation Comments BUN (test code = BUN) 14 7-22 [facility] HospitalXllttjvBRLWITOAGZDZ6522-35-39 03:40:00 Test Item Value Reference Range Interpretation Comments Glucose Lvl (test code = Glucose Lvl) 80 70-99 [facility] HospitalXlojlliWFUNXOJHYCPB2657-50-13 03:40:00 Test Item Value Reference Range Interpretation Comments Creatinine Lvl (test code = Creatinine 1.15 0.50-1.40 Lvl) [facility] HospitalSkxmqpkEZDWFJXLDKXB8618-78-76 03:40:00 Test Item Value Reference Range Interpretation Comments Calcium Lvl (test code = Calcium Lvl) 9.0 8.5-10.5 [facility]vineXatvarzNEEVKLDFTD7005-54-01 03:40:00 Test Item Value Reference Range Interpretation Comments Segs-Bands # (test code = Segs-Bands #) 10.5 1.5-8.1 [facility]rapevineMdbuptdDFJZTONFAJ8702-96-99 03:40:00 Test Item Value Reference Range Interpretation Comments Eosinophils (test code = Eosinophils) 0.5 <=4.0 [facility]vinePhiaqacVDTOLIPDXQ3888-81-68 03:40:00 Test Item Value Reference Range Interpretation Comments Basophils (test code = Basophils) 1.1 <=1.0 [facility]vineQpbhxdvEYJLIDNIUS5517-53-84 03:40:00 Test Item Value Reference Range Interpretation Comments Lymphocytes # (test code = Lymphocytes 4.0 1.0-5.5 #) [facility] GrapevineHaiojwuHWFRLLJTHY0829-65-24 03:40:00 Test Item Value Reference Range Interpretation Comments Monocytes # (test code = Monocytes #) 0.8 <=0.8 [facility]rapevineNyzjwynHXXOXRGJAR0787-02-11 03:40:00 Test Item Value Reference Range Interpretation Comments Eosinophils # (test code = Eosinophils 0.1 <=0.5 #) [facility]rapevineJhfgpiwFZQTDJZEXI8357-86-79 03:40:00 Test Item Value Reference Range Interpretation Comments Basophils # (test code = Basophils #) 0.2 <=0.2 [facility]rapevineOslrxykHXUPFTTAGO7301-29-39 03:40:00 Test Item Value Reference Range Interpretation Comments Segs (test code = Segs) 67.1 45.0-75.0 [facility] GrapevineIozapiwJIGGUWZXYM4872-77-04 03:40:00 Test Item Value Reference Range Interpretation Comments Lymphocytes (test code = Lymphocytes) 26.0 20.0-40.0 [facility]vineCgwdrxhGKQUNIELPB7765-76-23 03:40:00 Test Item Value Reference Range Interpretation Comments Monocytes (test code = Monocytes) 5.3 2.0-12.0 [facility] GrapevineRfbzhlnDYHBGIPASJ8841-76-55 03:40:00 Test Item Value Reference Range Interpretation Comments RDW (test code = RDW) 12.8 11.5-14.5 [facility]rapevineDouncjyBMLXLSAJKB5595-91-96 03:40:00 Test Item Value Reference Range Interpretation Comments Platelet (test code = Platelet) 189 133-450 [facility] GrapevineTtijaflTGGMZTOQHR0118-64-26 03:40:00 Test Item Value Reference Range Interpretation Comments MPV (test code = MPV) 6.1 7.4-10.4 [id number] 03:40:00 Test Item Value Reference Range Interpretation Comments Hgb (test code = Hgb) 15.9 14.0-18.0 [id number] 03:40:00 Test Item Value Reference Range Interpretation Comments Hct (test code = Hct) 45.4 42.0-54.0 [id number] 03:40:00 Test Item Value Reference Range Interpretation Comments MCV (test code = MCV) 95.1 80.0-94.0 [id number] 03:40:00 Test Item Value Reference Range Interpretation Comments MCH (test code = MCH) 33.3 pg 27.0-31.0 [id number] 03:40:00 Test Item Value Reference Range Interpretation Comments MCHC (test code = MCHC) 35.0 32.0-36.0 [id number] 03:40:00 Test Item Value Reference Range Interpretation Comments WBC (test code = WBC) 15.6 3.7-10.4 [id number] 03:40:00 Test Item Value Reference Range Interpretation Comments RBC (test code = RBC) 4.77 4.70-6.10 [id number] 03:40:00 Test Item Value Reference Range Interpretation Comments G-value Rapid (test code = G-value 3.7 5.0-11.6 Rapid) [id number] 03:40:00 Test Item Value Reference Range Interpretation Comments Max Amplitude Rapid (test code = Max 42 mm 52-71 Amplitude Rapid) [id number] 03:40:00 Test Item Value Reference Range Interpretation Comments Estimated % Lysis Rapid (test code = 3.4 <=7.5 Estimated % Lysis Rapid) [id number] 03:40:00 Test Item Value Reference Range Interpretation Comments Split Point Rapid (test code = Split 0.7 min Point Rapid) [id number] 03:40:00 Test Item Value Reference Range Interpretation Comments R-time Rapid (test code = R-time 1.1 min 0.4-0.7 Rapid) [id number] 03:40:00 Test Item Value Reference Range Interpretation Comments ACT (TEG) Rapid (test code = ACT (TEG) 152 s 86-118 Rapid) [id number] 03:40:00 Test Item Value Reference Range Interpretation Comments K-time Rapid (test code = K-time 4.1 min 0.6-2.3 Rapid) [id number] 03:40:00 Test Item Value Reference Range Interpretation Comments Angle Rapid (test code = Angle 48 degrees 64-80 Rapid) [facility] [id number] 03:40:00 Test Item Value Reference Range Interpretation Comments Etoh (%) (test code = Etoh (%)) 0.148 [id number] 03:40:00 Test Item Value Reference Range Interpretation Comments Ethanol Lvl (test code = Ethanol Lvl) 148 [facility] [id number] 03:38:00 Test Item Value Reference Range Interpretation Comments ABO/Rh (test code = ABO/Rh) O NEG [facility] [employer] [id number] 03:38:00 Test Item Value Reference Range Interpretation Comments Antibody Scrn (test Negative (11/09/16 9:38 code = Antibody Scrn) PM) [facility]
--- NOTE | 2023-08-01 05:32 | EDPHYS ---
Physician Documentation [facility] Name: Bro Yung Age: 58 yrs Sex: Male : 1965 Arrival Date: 08/01/2023 Time: 04:31 Bed Waiting Private MD: ED Physician Bari Cowan HPI: 08/01 05:07 This 58 yrs old Male presents to ER via Unassigned with complaints of Ear sp4 Pain. 05:30 Patient left out of the waiting area prior to being seen by the provider. sp4 MDM: 05:31 Patient medically screened. sp4 Administered Medications: No medications were administered Disposition: 05:32 Chart complete. sp4 Disposition Summary: 08/01/23 05:31 Eloped Notes: Disposition: before being seen by provider sp4 Problem: new sp4 Symptoms: are unchanged sp4 Reason: (see nurse's notes) sp4 Condition: Undetermined sp4 Diagnosis - acute ear pain sp4 Followup: sp4 - With: Private Physician - When: As needed - Reason: Signatures: Bari Cowan MD MD sp4
--- NOTE | 2023-08-01 05:32 | ER ---
Nurse's Notes [facility] Name: Bro Yung Age: 58 yrs Sex: Male : 1965 Arrival Date: 08/01/2023 Time: 04:31 Bed Waiting Private MD: Diagnosis: acute ear pain Presentation: 08/01 05:04 Chief complaint:. jj7 Assessment: 05:05 Reassessment: PT NOT IN LOBBY WHEN CALLED. jj7 05:30 Reassessment: PT NOT IN LOBBY WHEN CALLED BY . PT NOT IN LOBBY WHEN CALLED BY NURSE. jj7 ED Course: 04:32 Patient arrived in ED. jj6 05:07 Brai Cowan MD is Attending Physician. sp4 Administered Medications: No medications were administered Outcome: 05:31 Eloped from waiting room, 05:43 Patient left the ED. bp Signatures: Adolfo Carlos RN RN Sandra Harris jj6 Sung Duke RN RN j7 Bari Cowan MD MD sp4
== END 2023-08-01 05:43 | disposition left against medical advice (07) ==
LOC: ER 04:31
DX: Z53.21 Procedure and treatment not carried out due to patient leaving prior to being seen by health care provider (principal)
CPT/HCPCS: 99281

== ENCOUNTER → 2023-12-11 | Emergency (ER) | payer OTHER ==
[~2023-12-11] MED LIST: HYDROCODONE/APAP 10/325 TAB ONE
[2023-12-11 14:46] LABS: Absolute Basophils 0.1 K/uL (0-0.5); Absolute Eosinophils 0.2 K/uL (0-0.5); Absolute Lymphocytes (CBC) 1.9 K/uL (0.7-4.9); Eosinophils % 3.1 % (0-4.4); Hematocrit 46.4 % (39.6-49.0); Lymphocytes % 27.2 % (15.3-44.8); MCV 95.8 fL (80-100); MPV 6.4 fL (7.6-11.3); Platelets 186 thou/uL (152-406); RBC Red Blood Cell Count 4.84 M/uL (4.33-5.43)
[2023-12-11 15:02] LABS: ALT/SGPT 51 U/L (16-61); AST/SGOT 39 U/L (15-37); Albumin 3.4 g/dL (3.4-5.0); Albumin/Globulin Ratio 0.9 (1.1-1.8); Anion Gap 6.8 mEq/L (5.0-15.0); BUN Blood Urea Nitrogen 13 mg/dL (7-18); Bicarbonate 31 mEq/L (21-32); Bilirubin Direct 0.2 mg/dL (0-0.2); Bilirubin Indirect, Calculated 0.2 mg/dL (0.2-0.8); Bilirubin Total 0.4 mg/dL (0.2-1.0); Globulin 3.6 g/dL (2.3-3.5); Glomerular Filtration Rate 92 ml/min (=/>90); Glucose Level 118 mg/dL (74-106); Potassium 3.8 mEq/L (3.5-5.1); Protime INR 1.04; Sodium Level 142 mEq/L (136-145)
--- NOTE | 2023-12-11 15:19 | ER ---
Nurse's Notes [facility] Name: Bro Yung Age: 58 yrs Sex: Male : 1965 Arrival Date: 12/11/2023 Time: 14:04 Bed 17 Private MD: Diagnosis: Suicidal ideations Presentation: 12/10 14:16 Chief complaint: EMS states: "Pt called EMS because he was having suicidal ideation. He rs5 has two hernias in his lower abdomen that he's had for years and are causing him to having incontinent, urgency, pain and to be suicidal. Pt also has a history of drug and alcohol abuse, and last time he drank or used drugs was three days ago". Coronavirus screen: At this time, the client does not indicate any symptoms associated with coronavirus-19. Ebola Screen: No symptoms or risks identified at this time. Initial Sepsis Screen: Does the patient meet any 2 criteria? No. Patient's initial sepsis screen is negative. Does the patient have a suspected source of infection? No. Patient's initial sepsis screen is negative. Risk Assessment: Do you want to hurt yourself or someone else? Patient reports desire/thoughts of hurting themselves or someone else. Provider notified. Onset of symptoms. 14:16 Method Of Arrival: EMS: [facility] rs5 14:16 Acuity: PATRICIO 3 rs5 Triage Assessment: 14:22 General: Appears distressed, Behavior is crying. Pain: Complains of pain in lower rs5 abdomen Pain currently is 6 out of 10 on a pain scale. Historical: - Allergies: 14:22 No Known Allergies; rs5 - PMHx: 14:22 Anxiety; Bipolar disorder; Depression; rs5 - PSHx: 14:22 Ankle; eye; Nose; Tonsillectomy; rs5 - Immunization history:: Adult Immunizations unknown. - Social history:: Smoking status: unknown. - Family history:: not pertinent. - Hospitalizations: : No recent hospitalization is reported. Screenin:15 [facility] ED Fall Risk Assessment (Adult) History of falling in the last 3 months, rs5 including since admission No falls in past 3 months (0 pts) Confusion or Disorientation No (0 pts) Intoxicated or Sedated No (0 pts) Impaired Gait No (0 pts) Mobility Assist Device Used No (0 pt) Altered Elimination No (0 pt) Score/Fall Risk Level 0 - 2 = Low Risk Oriented to surroundings, Maintained a safe environment. 14:15 Abuse screen: Denies threats or abuse. Nutritional screening: No deficits noted. rs5 Tuberculosis screening: No symptoms or risk factors identified. Assessment: 14:15 General: Appears in no apparent distress. uncomfortable, Behavior is cooperative, rs5 crying. Pain: Complains of pain in lower abdomen Pain does not radiate. Pain currently is 7 out of 10 on a pain scale. Quality of pain is described as aching, Is continuous. 14:15 General: Appears unkempt. Neuro: Level of Consciousness is awake, alert, obeys rs5 commands, Oriented to person, place, time, situation. Cardiovascular: Patient's skin is warm and dry. Rhythm is regular. Respiratory: Airway is patent Respiratory effort is even, unlabored, Respiratory pattern is regular, symmetrical. GI: Abdomen is round non-distended. : Reports incontinence, urgency. EENT: No signs and/or symptoms were reported regarding the EENT system. Derm: Skin is intact, Skin is pink, warm \\T\\ dry. Musculoskeletal: Range of motion: intact in all extremities. 15:51 General: Appears in no apparent distress. comfortable. ap3 16:35 Reassessment: No changes from previously documented assessment. Patient and/or family ap3 updated on plan of care and expected duration. Pain level reassessed. Patient is alert, oriented x 3, equal unlabored respirations, skin warm/dry/pink. 17:09 Reassessment: No changes from previously documented assessment. Patient and/or family ap3 updated on plan of care and expected duration. Pain level reassessed. Patient is alert, oriented x 3, equal unlabored respirations, skin warm/dry/pink. 17:41 Reassessment: No changes from previously documented assessment. Patient and/or family ap3 updated on plan of care and expected duration. Pain level reassessed. Patient is alert, oriented x 3, equal unlabored respirations, skin warm/dry/pink. 18:29 Reassessment: No changes from previously documented assessment. Patient and/or family ap3 updated on plan of care and expected duration. Pain level reassessed. Patient is alert, oriented x 3, equal unlabored respirations, skin warm/dry/pink. 18:30 General: nurse to nurse report given to nurse at [facility]. ap3 19:03 Reassessment: No changes from previously documented assessment. Patient and/or family ap3 updated on plan of care and expected duration. Pain level reassessed. Patient is alert, oriented x 3, equal unlabored respirations, skin warm/dry/pink. General: Appears in no apparent distress. 19:16 General: Appears comfortable, Behavior is cooperative. Pain: Complains of pain in ha1 abdomen Pain does not radiate. Pain currently is 2 out of 10 on a pain scale. Quality of pain is described as crampy, Is continuous. Neuro: Level of Consciousness is awake, alert, obeys commands, Oriented to person, place, time, situation, Reports SUICIDAL IDEATIONS . Cardiovascular: Capillary refill < 3 seconds Patient's skin is warm and dry. Respiratory: Airway is patent Respiratory effort is even, unlabored, Respiratory pattern is regular, symmetrical. GI: Abdomen is round non-distended, Bowel sounds present X 4 quads. Reports lower abdominal pain, upper abdominal pain, incontinence, ABDOMINAL HERNIA. EENT: Poor dentition noted. Musculoskeletal: Circulation, motion, and sensation intact. Range of motion: intact in all extremities. 20:16 Reassessment: Nurse to Nurse report given to [facility] report given ha1 to nurse JESSICA Edwards. 21:05 Reassessment: Patient and/or family updated on plan of care and expected duration. Pain ha1 level reassessed. Patient is alert, oriented x 3, equal unlabored respirations, skin warm/dry/pink. Psych: 15:30 [place] Suicide Severity Screening: In the past month, have you wished you were ap3 or wished you could go to sleep and not wake up? Patient responds "yes." "In the past month, have you actually had any thoughts of killing yourself?" Patient responds "yes." "In your lifetime, have you ever done anything, started to do anything, or prepared to do anything to end your life?" Patient responds "yes." Patient reports suicidal intent within 3 past months. Subjective: Patient's mood is sad, Delusions are denied, Hallucinations are denied Having thoughts of suicide. Plan for suicide is to jump out in front of traffic. Objective: Patient is cooperative, Speech is normal, Affect is flat. Interventions: Removed personal items and placed in bag. Patient placed in hospital gown. Searched person for dangerous items. Urine collected and sent for urine drug test. Belonging list filled out. Safety Checks: Personal items have been removed. Door is open. Pt denies substance abuse. 19:00 Commitment: Patient will be a voluntary commitment. ha1 Vital Signs: 14:16 BP 121 / 72; Pulse 72; Resp 18; Temp 97.8(O); Pulse Ox 99% ; rs5 14:49 BP 125 / 74; Pulse 77; Resp 18; Pulse Ox 99% on R/A; rs5 19:45 BP 131 / 88; Pulse 78; Resp 17 S; Temp 98.2; Pulse Ox 98% on R/A; ha1 21:05 BP 133 / 82; Pulse 77; Resp 17 S; Temp 98.2; Pulse Ox 99% on R/A; ha1 ED Course: 14:15 Patient arrived in ED. rn 14:15 Chuy Broderick MD is Attending Physician. rn 14:15 No provider procedures requiring assistance completed. rs5 14:15 Patient has correct armband on for positive identification. Placed in gown. Bed in low rs5 position. Call light in reach. Side rails up X2. 14:16 Tyrell Banks RN is Primary Nurse. rs5 14:22 Triage completed. rs5 14:25 Inserted saline lock: 22 gauge in right antecubital area, using aseptic technique. rs5 Blood collected. 15:18 Report received from JESSICA gardner. ap3 15:19 Patient requests pain medication. ap3 15:30 Primary Nurse role handed off by Tyrell Banks RN mb9 15:47 Rossy Hinton RN is Primary Nurse. ap3 15:52 Arm band placed on right wrist. ap3 16:34 Patient requests food. Patient requests liquids. ap3 18:16 Faxed paperwork to Julio Rainey, [facility], [facility], [facility] and [address] in attempt to find placement. 18:28 Nurse to Nurse report with Julio Rainey by Rossy Hinton RN. [facility] 19:00 Sitter at bedside. km 19:12 Report given to JESSICA Mohr. ap3 19:50 Provided Education on: need for transfer . ha1 19:55 Diet: Patient given snack. Patient given juice. kmf 20:01 Faxed all Psych Facilities we have listed...awaiting acceptance. 20:18 Pt accepted for transfer to [facility] by Dr. Eli Boswell per Rossy Serrano. 20:42 EMS accepted for transport with an ETA \\T\\ 2100. 20:55 Primary Nurse role handed off by Rossy Hinton, JESSICA 21:00 IV discontinued, intact, bleeding controlled, No redness/swelling at site. Pressure ha1 dressing applied. Administered Medications: 15:28 Drug: [place] PO 10 mg-325 mg 1 tabs PO once Route: PO; ap3 16:35 Follow up: Response: No adverse reaction; Pain is decreased ap3 Medication: 14:50 VIS not applicable for this client. rs5 Outcome: 15:18 ER care complete, transfer ordered by . rn 21:10 Patient left the ED. [facility] 21:10 Transferred by ground EMS Transfer form completed. Note: transferred to [address] 21:10 Condition: stable 21:10 Instructed on the need for transfer, Demonstrated understanding of instructions, Signatures: Chuy Broderick MD MD rn Prokisch, Amanda, RN RN ap3 Nydia Samayoa Fani Martines RN RN [facility] Alicja Hammer RN RN mb9 Tyrell Banks RN RN rs5 Maryjane Schofield 5 Cyndee Moon [facility] Corrections: (The following items were deleted from the chart) 19:00 18:28 Nurse to Nurse report with [place] [id number] 21:24 21:20 Patient left the ED. [facility] 21:27 20:16 Reassessment: Nurse to Nurse report given to [place] [id number] ha1 12/11 03:41 03/12 21:07 [facility]
--- NOTE | 2023-12-11 15:19 | EDPHYS ---
Physician Documentation [facility] Name: Bro Yung Age: 58 yrs Sex: Male : 1965 Arrival Date: 12/11/2023 Time: 14:04 Bed 17 Private MD: ED Physician Chuy Broderick HPI: 12/10 14:48 This 58 yrs old Male presents to ER via EMS with complaints of suicidal ideations. rn 14:48 The patient presents to the emergency department with depression, suicide ideation. rn Onset: The symptoms/episode began/occurred at an unknown time. Severity of symptoms: At their worst the symptoms were moderate in the emergency department the symptoms are unchanged. The patient has experienced similar episodes in the past. The patient has not recently seen a physician. Patient reports suicidal ideations, unknown onset been getting worse lately. Reports send chronic pain, alcohol addiction, methamphetamine addiction, and has all piled up recently to cause him to feel hopeless. Patient reports his plan would be to drive into oncoming traffic.. Historical: - Allergies: 14:22 No Known Allergies; rs5 - PMHx: 14:22 Anxiety; Bipolar disorder; Depression; rs5 - PSHx: 14:22 Ankle; eye; Nose; Tonsillectomy; rs5 - Immunization history:: Adult Immunizations unknown. - Social history:: Smoking status: unknown. - Family history:: not pertinent. - Hospitalizations: : No recent hospitalization is reported. ROS: 14:48 Constitutional: Negative for fever, chills, and weight loss, Neck: Negative for injury, rn pain, and swelling, Cardiovascular: Negative for chest pain, palpitations, and edema, Respiratory: Negative for shortness of breath, cough, wheezing, and pleuritic chest pain, Abdomen/GI: Negative for abdominal pain, nausea, vomiting, diarrhea, and constipation, positive for bilateral inguinal hernias that are chronic and are still reducible per patient MS/Extremity: Negative for injury and deformity, Skin: Negative for injury, rash, and discoloration, Neuro: Negative for headache, weakness, numbness, tingling, and seizure, Exam: 14:48 Constitutional: Disheveled male, malodorous, no acute distress Head/Face: rn Normocephalic, atraumatic. Cardiovascular: Regular rate and rhythm. No pulse deficits. Respiratory: No increased work of breathing, no retractions or nasal flaring. Abdomen/GI: Soft, non-tender, bilateral inguinal hernias, left larger than right, reducible, no skin changes 15:08 ECG was reviewed by the Attending Physician. rn Vital Signs: 14:16 BP 121 / 72; Pulse 72; Resp 18; Temp 97.8(O); Pulse Ox 99% ; rs5 14:49 BP 125 / 74; Pulse 77; Resp 18; Pulse Ox 99% on R/A; rs5 19:45 BP 131 / 88; Pulse 78; Resp 17 S; Temp 98.2; Pulse Ox 98% on R/A; ha1 21:05 BP 133 / 82; Pulse 77; Resp 17 S; Temp 98.2; Pulse Ox 99% on R/A; ha1 MDM: 14:15 Patient medically screened. rn 15:17 Differential diagnosis: depression, Suicidal ideation. Data reviewed: vital signs, rn nurses notes, radiologic studies, CT scan, and as a result, I will admit patient. Counseling: I had a detailed discussion with the patient and/or guardian regarding the historical points, exam findings, and any diagnostic results supporting the discharge/admit diagnosis, lab results, the need for further work-up and treatment in the hospital, the need to transfer to another facility, [facility] have the required specialist. 12/10 14:16 Order name: Urinalysis w/ reflexes 12/10 14:16 Order name: Urine Drug Screen 12/10 15:01 Order name: Salicylates Level; Complete Time: 15:15 [facility] 12/10 15:02 Order name: Basic Metabolic Panel [facility] 12/10 15:02 Order name: Liver (Hepatic) Function [facility] 12/10 15:02 Order name: Protime (+INR); Complete Time: 15:15 [facility] 12/10 15:02 Order name: PTT, Activated Partial Thromb; Complete Time: 15:15 [facility] 12/10 15:16 Order name: CBC with Automated Diff; Complete Time: 15:21 [facility] 12/10 15:54 Order name: Alcohol Serum/Plasma [facility] 12/10 15:59 Order name: Acetaminophen Level [facility] 12/10 14:16 Order name: EKG; Complete Time: 17:09 rn 03/12 14:16 Order name: EKG - Nurse/Tech; Complete Time: 14:30 rn 12/10 14:16 Order name: IV Saline Lock; Complete Time: 14:30 rn 12/10 14:16 Order name: Labs collected and sent; Complete Time: 14:30 rn 12/10 14:16 Order name: Suicide Precautions; Complete Time: 14:30 rn 12/10 14:16 Order name: Suicide Screening ([place]); Complete Time: 14:49 rn EC:08 Rate is 73 beats/min. Rhythm is regular. QRS [place] is Normal. CA interval is normal. QRS rn interval is normal. QT interval is normal. No Q waves. T waves are Normal. No ST changes noted. Clinical impression: Normal ECG. Interpreted by me. Reviewed by me. Administered Medications: 15:28 Drug: [place] PO 10 mg-325 mg 1 tabs PO once Route: PO; ap3 16:35 Follow up: Response: No adverse reaction; Pain is decreased ap3 Disposition Summary: 12/11/23 15:18 Transfer Ordered Notes: Transfer Location: Psych Facility rn Reason: Higher level of care rn Condition: Stable rn Problem: an ongoing problem rn Symptoms: are unchanged rn Accepting Physician: (12/11/23 21:20) ha1 Diagnosis - Suicidal ideations rn Forms: - Medication Reconciliation Form rn - SBAR form rn Signatures: Dispatcher [employer] EDMS Chuy Broderick MD MD rn Prokisch, Amanda RN RN ap3 Fani Martines, RN RN ha1 Tyrell Banks, RN RN rs5 Corrections: (The following items were deleted from the chart) 17:59 17:09 PROTIME (+INR)+COAG.LAB.BRZ ordered. EDMS EDMS 17:59 17:09 PTT, ACTIVATED+COAG.LAB.BRZ ordered. EDMS EDMS 18:00 17:09 CBC+H.LAB.BRZ ordered. EDMS EDMS 18:00 17:09 SALICYLATE+C.LAB.BRZ ordered. EDMS EDMS 18:42 17:09 ACETAMINOPHEN+C.LAB.BRZ ordered. EDMS EDMS 18:42 17:09 BASIC METABOLIC PANEL+C.LAB.BRZ ordered. EDMS EDMS 18:42 17:09 ETHANOL+C.LAB.BRZ ordered. EDMS EDMS 18:42 17:09 HEPATIC FUNCTION+C.LAB.BRZ ordered. EDMS EDMS 21:20 15:18 Dr. briggs ha1
[2023-12-11 15:35] LABS: Alkaline Phosphatase 77 U/L (45-117)
[2023-12-11 18:12] LABS: Specific Gravity 1.015 (1.005-1.030); Urine Bilirubin NEGATIVE (Negative); Urine Blood Negative (Negative); Urine Clarity Clear (Clear); Urine Color Light-Yellow (Yellow); Urine Glucose NEGATIVE (Negative); Urine Protein NEGATIVE (Negative); Urine Urobilinogen 1+ (Normal)
[2023-12-11 18:17] LABS: Barbiturates NEGATIVE (NEGATIVE); Benzodiazepines NEGATIVE (NEGATIVE); Cocaine NEGATIVE (NEGATIVE); METHAMPHETAM POSITIVE (NEGATIVE); Methadone NEGATIVE (NEGATIVE); Opiates NEGATIVE (NEGATIVE); Phencyclidine NEGATIVE (NEGATIVE); THC Cannibis NEGATIVE (NEGATIVE)
[2023-12-11 21:36] VITALS: BP 131/88; TEMP 98.2; O2SAT 98
== END ==
LOC: ER 14:04
DX: R45.851 Suicidal ideations (principal); F31.9 Bipolar disorder, unspecified
CPT/HCPCS: 36415; 80048; 80076; 80143; 80179; 80307; 81003; 82077; 85025; 85610; 85730

== ENCOUNTER 2024-01-07 17:51 | Emergency (ER) | payer OTHER ==
[2024-01-07 18:51] LABS: Absolute Basophils 0.1 K/uL (0-0.5); Absolute Eosinophils 0.3 K/uL (0-0.5); Absolute Lymphocytes (CBC) 2.5 K/uL (0.7-4.9); Absolute Monocytes 0.6 K/uL (0.1-1.3); Absolute Neutrophil 5.8 K/uL (1.8-8.0); Basophils % 1.2 % (0-1.3); Hematocrit 44.6 % (39.6-49.0); Hemoglobin 15.5 g/dL (13.6-17.9); Lymphocytes % 26.8 % (15.3-44.8); MCH 33.2 pg (27.0-35.0); MCHC 34.7 g/dL (32.0-36.0); MCV 95.5 fL (80-100); MPV 6.6 fL (7.6-11.3); Monocytes % 6.5 % (3.3-12.3); Neutrophils % 62.5 % (41.7-73.7); Platelets 224 thou/uL (152-406); RBC Red Blood Cell Count 4.67 M/uL (4.33-5.43); Red Cell Distribution Width 12.9 % (12.1-15.2)
[2024-01-07 18:56] LABS: PTT, Activated Partial Thromb 28.3 SECONDS (24.3-36.9)
[2024-01-07 19:13] LABS: ALT/SGPT 55 U/L (16-61); AST/SGOT 50 U/L (15-37); Albumin 3.8 g/dL (3.4-5.0); Alkaline Phosphatase 66 U/L (45-117); Anion Gap 6.6 mEq/L (5.0-15.0); BUN Blood Urea Nitrogen 16 mg/dL (7-18); Bicarbonate 30 mEq/L (21-32); Bilirubin Direct 0.2 mg/dL (0-0.2); Bilirubin Indirect, Calculated 0.2 mg/dL (0.2-0.8); Bilirubin Total 0.4 mg/dL (0.2-1.0); Glomerular Filtration Rate 95 ml/min (=/>90); Glucose Level 91 mg/dL (74-106); Potassium 3.6 mEq/L (3.5-5.1); Protein, Total 7.8 g/dL (6.4-8.2); Sodium Level 138 mEq/L (136-145)
[2024-01-07 22:25] LABS: Specific Gravity 1.021 (1.005-1.030); Urine Bilirubin NEGATIVE (Negative); Urine Blood Negative (Negative); Urine Clarity Clear (Clear); Urine Color Light-Yellow (Yellow); Urine Glucose NEGATIVE (Negative); Urine Ketones NEGATIVE (Negative); Urine Microscopic Reflex YN NO UMIC; Urine Nitrite NEGATIVE (Negative); Urine Protein NEGATIVE (Negative); Urine Urobilinogen 1+ (Normal); Urine pH 5.5 (5.0-7.0)
[2024-01-07 22:33] LABS: Barbiturates NEGATIVE (NEGATIVE); Benzodiazepines NEGATIVE (NEGATIVE); Cocaine NEGATIVE (NEGATIVE); METHAMPHETAM POSITIVE (NEGATIVE); Methadone NEGATIVE (NEGATIVE); Opiates NEGATIVE (NEGATIVE); Phencyclidine NEGATIVE (NEGATIVE); THC Cannibis NEGATIVE (NEGATIVE)
--- NOTE | 2024-01-08 01:08 | EDPHYS ---
Physician Documentation [facility] Name: Bro Yung Age: 58 yrs Sex: Male : 1965 Arrival Date: 01/07/2024 Time: 17:51 Bed 14 Private MD: ED Physician Chuy Broderick HPI: 01/06 18:20 This 58 yrs old Male presents to ER via EMS with complaints of Suicidal Ideation. cp 18:20 The patient presents to the emergency department with paranoia, a history of substance cp abuse, Type: methamphetamines, last use 3 days ago. Past psychiatric history: Prior diagnosis: bipolar disorder, depression. EMS reports patient found walking around in traffic and reportedly stating that he doesn't want to continue. Historical: - Allergies: 18:07 No Known Allergies; ld1 - PMHx: 18:07 Anxiety; Bipolar disorder; Depression; ld1 - PSHx: 18:07 Ankle; eye; Nose; Tonsillectomy; ld1 - Immunization history:: Adult Immunizations up to date. - Infectious Disease History:: Denies. - Social history:: Smoking status: Patient reports the use of cigarette tobacco products, smokes one-half pack cigarettes per day, Patient uses street drugs, Methamphetamine (Meth). ROS: 18:25 Constitutional: Negative for body aches, chills, fever, poor PO intake, cp 18:25 Cardiovascular: Negative for chest pain, palpitations, cp 18:25 Respiratory: Negative for cough, shortness of breath, wheezing, 18:25 Abdomen/GI: Negative for abdominal pain, vomiting, diarrhea, constipation, 18:25 Back: Negative for pain at rest, pain with movement, 18:25 Neuro: Negative for altered mental status, headache, weakness, 18:25 Psych: Positive for drug dependence, 18:25 All other systems are negative, Exam: 18:30 Constitutional: The patient appears in no acute distress, alert, awake, non-toxic, well cp developed, well nourished, 18:30 Head/Face: Normocephalic, atraumatic. cp 18:30 Eyes: Periorbital structures: appear normal, Pupils: equal, round, and reactive to light and accomodation, Extraocular movements: intact throughout, Conjunctiva: normal, no exudate, no injection, Sclera: no appreciated abnormality, Lids and lashes: appear normal, bilaterally, 18:30 ENT: External ear(s): are unremarkable, Nose: is normal, Mouth: Lips: moist, Oral mucosa: pink and intact, moist, Posterior pharynx: Airway: no evidence of obstruction, patent, 18:30 Chest/axilla: Inspection: normal, Palpation: is normal, no crepitus, no tenderness, 18:30 Cardiovascular: Rate: normal, Rhythm: regular, 18:30 Respiratory: the patient does not display signs of respiratory distress, Respirations: normal, no use of accessory muscles, no retractions, labored breathing, is not present, Breath sounds: are clear throughout, no decreased breath sounds, no stridor, no wheezing, 18:30 Abdomen/GI: Inspection: abdomen appears normal, Palpation: abdomen is soft and non-tender, in all quadrants, 18:30 Neuro: Orientation: to person, place \T\ time. Mentation: is normal, Motor: moves all fours, strength is normal, 18:46 ECG was reviewed by the Attending Physician. cp Vital Signs: 18:33 Resp 18; Temp 97.3(TE); Pulse Ox 100% on R/A; Weight 72.57 kg; Height 5 ft. 6 in. ; ld1 Pain 0/10; 18:49 BP 120 / 79; Pulse 71; Resp 18; Pulse Ox 100% on R/A; ld1 19:13 BP 123 / 86; Pulse 68; Resp 18; Temp 98.1; Pulse Ox 99% on R/A; vk 01/07 03:00 BP 118 / 82; Pulse 64; Resp 16; Temp 98.4; Pulse Ox 99% ; vc1 04 18:33 Body Mass Index 25.82 (72.57 kg, 167.64 cm) ld1 04 18:33 Pain Scale: Adult ld1 MDM: 01/06 18:10 Patient medically screened. cp 19:00 Differential diagnosis: drug withdrawal. acute psychotic break, psychosis secondary to cp non-compliance. 22:35 Data reviewed: vital signs, nurses notes, lab test result(s), EKG, and as a result, I cp will request intake by [facility]. 01/07 01:08 ED course: [facility] intake performed and recommendation for transfer for inpatient cp treatment made. 01/06 18:15 Order name: Acetaminophen; Complete Time: 19:17 cp 04/ 19:17 Interpretation: Reviewed. cp 04 18:15 Order name: Basic Metabolic Panel; Complete Time: 19:17 cp 04/ 18:15 Order name: CBC with Diff; Complete Time: 19:17 cp 04/08 19:18 Interpretation: MPV 6.6; Reviewed. cp 04/ 18:15 Order name: ETOH Level; Complete Time: 20:54 cp 01/06 18:15 Order name: Hepatic Function; Complete Time: 19:17 cp / 19:18 Interpretation: Normal except: AST 50; GLOB 4.0; A/G 1.0. cp / 18:15 Order name: PT-INR; Complete Time: 19:17 cp 01/06 18:15 Order name: Ptt, Activated; Complete Time: 19:17 cp 01/06 18:15 Order name: Salicylate; Complete Time: 20:54 cp 01/06 18:15 Order name: Urinalysis w/ reflexes; Complete Time: 22:34 cp 01/06 18:15 Order name: Urine Drug Screen; Complete Time: 22:34 cp 01/06 22:35 Interpretation: Normal except: METHAMPHETAMINE POSITIVE. cp / 18:15 Order name: EKG; Complete Time: 18:15 cp 01/06 18:15 Order name: EKG - Nurse/Tech; Complete Time: 18:35 cp 01/06 18:15 Order name: IV Saline Lock; Complete Time: 18:35 cp 01/06 18:15 Order name: Labs collected and sent; Complete Time: 18:35 cp 01/06 18:15 Order name: Suicide Precautions; Complete Time: 18:35 cp 01/06 18:15 Order name: Suicide Screening ([place]); Complete Time: 18:35 cp EC/08 18:46 Rate is 70 beats/min. Rhythm is regular. NC interval is normal. QRS interval is normal. cp QT interval is normal. T waves are Inverted in lead aVR. Interpreted by me. Reviewed by me. Administered Medications: 01/07 01:31 Drug: LORazepam PO 1 mg PO once Route: PO; vc1 03:10 Follow up: Response: No adverse reaction; Marked relief of symptoms; Anxiety decreased vc1 Disposition Summary: 01/08/24 01:07 Transfer Ordered Notes: Transfer Location: Psych Facility cp Reason: Higher level of care cp Condition: Stable cp Problem: new cp Symptoms: are unchanged cp Accepting Physician: Doctor(01/08/24 03:26) vc1 Diagnosis - Adverse effect of amphetamines cp - Suicidal ideations cp Forms: - Medication Reconciliation Form cp - SBAR form cp Signatures: Dispatcher [employer] EDRob Xiao PA PA cp Sims, Lauren RN RN ld1 Veronique Medrano RN RN vc1 Corrections: (The following items were deleted from the chart) 03:26 01:07 Doctor cp vc1
--- NOTE | 2024-01-08 01:08 | ER ---
Nurse's Notes [facility] Name: Bro Yung Age: 58 yrs Sex: Male : 1965 Arrival Date: 01/07/2024 Time: 17:51 Bed 14 Private MD: Diagnosis: Adverse effect of amphetamines;Suicidal ideations Presentation: 01/06 18:05 Chief complaint: EMS states: toned out for patient "walking in traffic because people ld1 are after me." Pt reports "life is getting to me and I don't want to do it anymore.". Coronavirus screen: At this time, the client does not indicate any symptoms associated with coronavirus-19. Ebola Screen: No symptoms or risks identified at this time. Risk Assessment: Do you want to hurt yourself or someone else? Patient reports desire/thoughts of hurting themselves or someone else. Provider notified. Onset of symptoms was January 07, 2024. 18:05 Method Of Arrival: EMS: [facility] ld1 18:05 Acuity: PATRICIO 2 ld1 19:00 Initial Sepsis Screen: Does the patient meet any 2 criteria? No. Patient's initial vc1 sepsis screen is negative. Does the patient have a suspected source of infection? No. Patient's initial sepsis screen is negative. Triage Assessment: 18:07 General: Appears in no apparent distress. Behavior is anxious, inappropriate for age. ld1 Pain: Denies pain. EENT: No signs and/or symptoms were reported regarding the EENT system. EENT: Neuro: Level of Consciousness is awake, alert, obeys commands, Oriented to person, place, time, situation. Cardiovascular: Capillary refill < 3 seconds Patient's skin is warm and dry. Respiratory: Airway is patent Respiratory effort is even, unlabored. GI: Abdomen is round non-distended. : No signs and/or symptoms were reported regarding the genitourinary system. Derm: No signs and/or symptoms reported regarding the dermatologic system. Musculoskeletal: No signs and/or symptoms reported regarding the musculoskeletal system. Historical: - Allergies: 18:07 No Known Allergies; ld1 - PMHx: 18:07 Anxiety; Bipolar disorder; Depression; ld1 - PSHx: 18:07 Ankle; eye; Nose; Tonsillectomy; ld1 - Immunization history:: Adult Immunizations up to date. - Infectious Disease History:: Denies. - Social history:: Smoking status: Patient reports the use of cigarette tobacco products, smokes one-half pack cigarettes per day, Patient uses street drugs, Methamphetamine (Meth). Screenin:00 [facility] ED Fall Risk Assessment (Adult) History of falling in the last 3 months, vc1 including since admission No falls in past 3 months (0 pts) Confusion or Disorientation No (0 pts) Intoxicated or Sedated No (0 pts) Impaired Gait No (0 pts) Mobility Assist Device Used No (0 pt) Altered Elimination No (0 pt) Score/Fall Risk Level 0 - 2 = Low Risk Oriented to surroundings, Maintained a safe environment, Educated pt \\T\\ family on fall prevention, incl call for assistance when getting out of bed. Abuse screen: Denies threats or abuse. Nutritional screening: No deficits noted. Tuberculosis screening: No symptoms or risk factors identified. Assessment: 18:08 Reassessment: Pt placed on [facility] for 48 hours per mental health deputy. 1 18:34 Reassessment: SI paperwork complete, SI precautions in place, Pt belongings sent to [facility] security. 18:34 Reassessment: Pt personal contact (pt is living with Markie.) Friend - Markie [facility] [phone]. 19:00 General: Appears in no apparent distress. comfortable, Behavior is calm, cooperative. vc1 Pain: Denies pain. Neuro: Level of Consciousness is awake, alert, obeys commands, Oriented to person, place, time, situation, Appropriate for age. Cardiovascular: No deficits noted. Capillary refill < 3 seconds Patient's skin is warm and dry. Respiratory: Airway is patent Respiratory effort is even, unlabored, Respiratory pattern is regular, symmetrical. GI: No deficits noted. No signs and/or symptoms were reported involving the gastrointestinal system. : No deficits noted. No signs and/or symptoms were reported regarding the genitourinary system. EENT: No deficits noted. No signs and/or symptoms were reported regarding the EENT system. Derm: Skin is intact, is healthy with good turgor, Skin temperature is warm. Musculoskeletal: No deficits noted. No signs and/or symptoms reported regarding the musculoskeletal system. 21:00 Reassessment: Patient and/or family updated on plan of care and expected duration. Pain vc1 level reassessed. General: Behavior is calm, cooperative. General: Pt reports feeling a little anxious, provider notified. Meds ordered to be given after [facility] evaluation.. Pain: Denies pain. 23:00 Reassessment: Per chao at [facility], screener will be here in 1hr and 45 minutes. cm10 01/07 00:45 Reassessment:. vc1 01:50 General: Nurse to Nurse with Romelia at [facility]. vc1 03:10 General: patient released from 1:1 observation. EMS at bedside for transfer. Waiting on vc1 security to bring belongings. Psych: 01/06 19:00 [place] Suicide Severity Screening: In the past month, have you wished you were vc1 or wished you could go to sleep and not wake up? Patient responds "yes." Based off the client's responses additional C-SSRS screening is required. "In the past month, have you actually had any thoughts of killing yourself?" Patient responds "yes." Based off the client's response additional [place] suicide severity screening questions to be further documented on paper forms. "In your lifetime, have you ever done anything, started to do anything, or prepared to do anything to end your life?" Patient responds "yes.". Subjective: Patient's mood is hopeless. Objective: Patient is cooperative, Speech is normal, Affect is appropriate. Interventions: Removed personal items and placed in bag. Patient placed in hospital gown. Searched person for dangerous items. Urine collected and sent for urine drug test. Belonging list filled out. Safety Checks: Personal items have been removed. Door is open. No visitors are present at this time. Pt denies substance abuse. Commitment: Patient will be an involuntary commitment. 19:00 [place] Suicide Severity Screening: Pt states he has suicidal thoughts with intent "I vc1 will either take a large amount of heroin or step out into traffic". 01/07 00:46 Consultation: Latosha gar at bedside. vc1 Vital Signs: 01/06 18:33 Resp 18; Temp 97.3(TE); Pulse Ox 100% on R/A; Weight 72.57 kg; Height 5 ft. 6 in. ; ld1 Pain 0/10; 18:49 BP 120 / 79; Pulse 71; Resp 18; Pulse Ox 100% on R/A; ld1 19:13 BP 123 / 86; Pulse 68; Resp 18; Temp 98.1; Pulse Ox 99% on R/A; vk 01/07 03:00 BP 118 / 82; Pulse 64; Resp 16; Temp 98.4; Pulse Ox 99% ; vc1 01/06 18:33 Body Mass Index 25.82 (72.57 kg, 167.64 cm) ld1 01/06 18:33 Pain Scale: Adult [facility] ED Course: 01/06 17:59 Patient arrived in ED. iw 18:07 Triage completed. ld1 18:07 Arm band placed on. ld1 18:07 Safety checks: Items removed: yes. Door open/sign placed on door: yes. Family/friend ty present: no. Sitter present: Yes. Patient has correct armband on for positive identification. Bed in low position. Valuables inventory done. Given to security. Lights dimmed. Warm blanket given. PO fluids given. 18:09 Rob Mcclain PA is PHCP. cp 18:10 Chyu Broderick MD is Attending Physician. cp 18:33 Inserted saline lock: 22 gauge in right hand, using aseptic technique. Blood collected. ld1 18:47 Diet: Patient given a regular meal tray. Patient given snack. Patient given juice. ty Patient given water. Tolerated well. 19:00 Provided Education on: BRYANT. vc1 19:18 Diet: Patient given snack. Patient given juice. Tolerated well. vk 20:46 Diet: Patient given snack. Patient given juice. Tolerated well. vk 21:13 Urinalysis w/ reflexes Sent. vc1 21:13 Urine Drug Screen Sent. vc1 22:23 Veronique Medrano, RN is Primary Nurse. vc1 22:35 CALLED [facility] \\T\\ [id number]. kmf 23:00 [facility] ETA 1 HOUR 45MINS. km 01/07 01:25 FAXED CLINICAL'S TO [facility]. kmf 01:46 [facility] NURSE TO NURSE. kmf 02:08 PT ACCEPTED TO [facility] ADMIN APPROVAL GIVEN BY RANDALL NOLASCO. KIKO Mata MD ACCEPTED PT. km \\T\\[id number]. 02:10 [facility] TO TRANSFER PT ETA 1 HOUR. kmf 03:10 No provider procedures requiring assistance completed. IV discontinued, intact, vc1 bleeding controlled, No redness/swelling at site. Pressure dressing applied. Administered Medications: :31 Drug: LORazepam PO 1 mg PO once Route: PO; vc1 03:10 Follow up: Response: No adverse reaction; Marked relief of symptoms; Anxiety decreased vc1 Medication: 01/06 19:00 VIS not applicable for this client. vc1 Outcome: 01/07 01:07 ER care complete, transfer ordered by MD. stone 03:10 Transferred by ground EMS to other acute care facility: [facility]. vc1 03:10 Condition: stable 03:10 Instructed on the need for admit, 03:26 Patient left the ED. vc1 Signatures: Inés Mata, RN RN iw Rob Mcclain PA PA cp Sims, Lauren RN RN ld1 Veronique Medrano RN RN vc1 Marina Weston RN RN cm10 Cyndee Moon kmf Nadya Plata Tylor ty Corrections: (The following items were deleted from the chart) 01/06 23:00 23:00 Reassessment: Per chao at [facility], screener will be here in 1hr. cm10 cm10 01/07 01:31 00:46 Interventions: Patient reassessed during use of restraints. Patient is physically vc1 safe. vc1
[2024-01-08] MEDS ORDERED: LORAZEPAM 1 MG TABLET ONE (01:26)
[2024-01-08 07:29] VITALS: BP 118/82; TEMP 98.4; O2SAT 99
--- NOTE | 2024-01-08 16:16 | EKG ---
Test Date: 2024-01-07 Test Time: 18:39:32 Factory Helper: HARSH MEASUREMENT RESULTS: Intervals: Rate: 70 TX: 126 QRSD: 84 QT: 392 QTc: 423 [place]: P: 74 TX: 126 QRS: 82 T: 63 INTERPRETIVE STATEMENTS: Normal sinus rhythm Normal ECG Compared to ECG 12/11/2023 14:18:29 No significant changes Electronically Signed On 01-08-24 16:14:35 CDT by Eugenio Langston
== END 2024-01-08 03:26 ==
LOC: ER 17:51
DX: R45.851 Suicidal ideations (principal); T43.625A Adverse effect of amphetamines, initial encounter; F31.9 Bipolar disorder, unspecified; F17.210 Nicotine dependence, cigarettes, uncomplicated
CPT/HCPCS: 36415; 80048; 80076; 80143; 80179; 80307; 81003; 82077; 85025; 85610; 85730; 93005

== ENCOUNTER 2024-02-05 22:01 | Inpatient (IN) | payer OTHER ==
[2024-02-05] MEDS ORDERED: ONDANSETRON 4 MG/2 ML VIAL ONE (22:46)
[2024-02-05] MEDS ORDERED: NA CHLORIDE 0.9% 1,000 ML ONE (22:47)
[2024-02-05] MEDS ORDERED: MORPHINE 4 MG/ML SYR ONE (22:47)
[2024-02-05 23:07] LABS: Absolute Eosinophils 0.3 K/uL (0-0.5); Absolute Lymphocytes (CBC) 2.5 K/uL (0.7-4.9); Absolute Monocytes 0.7 K/uL (0.1-1.3); Absolute Neutrophil 5.1 K/uL (1.8-8.0); Basophils % 0.3 % (0-1.3); Eosinophils % 3.8 % (0-4.4); Hematocrit 40.2 % (39.6-49.0); Hemoglobin 13.9 g/dL (13.6-17.9); Lymphocytes % 28.5 % (15.3-44.8); MCH 32.9 pg (27.0-35.0); MCHC 34.5 g/dL (32.0-36.0); MCV 95.4 fL (80-100); MPV 6.6 fL (7.6-11.3); Monocytes % 8.5 % (3.3-12.3); Neutrophils % 58.9 % (41.7-73.7); Nucleated Red Blood Cells % 0.1 % (0-0); Platelets 174 thou/uL (152-406); RBC Red Blood Cell Count 4.22 M/uL (4.33-5.43); Red Cell Distribution Width 13.4 % (12.1-15.2)
[2024-02-05 23:09] LABS: Specific Gravity 1.028 (1.005-1.030); Sqamous Epithelial <5 /HPF (None Seen); Urine Bacteria None Seen /HPF (<20); Urine Bilirubin NEGATIVE (Negative); Urine Blood Negative (Negative); Urine Clarity Clear (Clear); Urine Color Yellow (Yellow); Urine Culture Reflex Order NOT NEEDED; Urine Glucose NEGATIVE (Negative); Urine Ketones NEGATIVE (Negative); Urine Microscopic Reflex YN ORDER UMIC; Urine Mucus Slight /HPF (None Seen); Urine Nitrite NEGATIVE (Negative); Urine Protein TRACE (Negative); Urine RBC <5 /HPF (None Seen); Urine Urobilinogen 3+ (Normal); Urine WBC <5 /HPF (<5)
[2024-02-05 23:22] LABS: Albumin 3.5 g/dL (3.4-5.0); Albumin/Globulin Ratio 0.9 (1.1-1.8); Anion Gap 7.1 mEq/L (5.0-15.0); Bilirubin Total 1.2 mg/dL (0.2-1.0); Globulin 3.8 g/dL (2.3-3.5); Potassium 3.1 mEq/L (3.5-5.1); Protein, Total 7.3 g/dL (6.4-8.2)
[2024-02-06] MEDS ORDERED: DIAZEPAM 5 MG TABLET ONE (00:54)
[2024-02-06] MEDS ORDERED: DIAZEPAM 10 MG/2 ML INJ SYRINGE ONE (00:59)
--- NOTE | 2024-02-06 03:38 | ER ---
Nurse's Notes [facility] Name: Bro Yung Age: 58 yrs Sex: Male : 1965 Arrival Date: 02/05/2024 Time: 22:01 Bed 7 Private MD: Diagnosis: Unilateral inguinal hernia, without obstruction or gangrene;Left inguinal hernia with herniation of sigmoid colon. Acute cystitis Presentation: 02/04 22:04 Chief complaint: EMS states: 58 year old male reports pain and swelling at the ha1 testicles due to inguinal hernias. 22:04 Coronavirus screen: Vaccine status: Patient reports being unvaccinated. Ebola Screen: ha No symptoms or risks identified at this time. Initial Sepsis Screen: Does the patient meet any 2 criteria? No. Patient's initial sepsis screen is negative. Does the patient have a suspected source of infection? No. Patient's initial sepsis screen is negative. Risk Assessment: Do you want to hurt yourself or someone else? Patient reports no desire to harm self or others. Onset of symptoms was February 05, 2024. 22:04 Method Of Arrival: EMS: [facility] 22:04 Acuity: PATRICIO 3 ha1 Triage Assessment: 22:04 General: Appears uncomfortable, Behavior is cooperative, anxious, restless. Pain: ha1 Complains of pain in pelvis and testicles Pain does not radiate. Pain currently is 10 out of 10 on a pain scale. Quality of pain is described as throbbing, Pain began 1 day ago. Neuro: Level of Consciousness is awake, alert, obeys commands, Oriented to person, place, time, situation. Cardiovascular: Capillary refill < 3 seconds Patient's skin is warm and dry. Respiratory: Airway is patent Respiratory effort is even, unlabored, Respiratory pattern is regular, symmetrical. GI: Abdomen is round non-distended, Reports hernias. : Swelling noted on scrotum. Derm: Skin is pink, warm \T\ dry. Historical: - Allergies: 22:12 No Known Allergies; ha1 - PMHx: 22:12 Anxiety; Bipolar disorder; Depression; Schizophrenia; ha1 - PSHx: 22:12 Ankle; eye; Nose; Tonsillectomy; ha1 - Immunization history:: Adult Immunizations not up to date. - Infectious Disease History:: Denies. - Social history:: Smoking status: Patient reports the use of cigarette tobacco products, smokes one-half pack cigarettes per day, Patient uses IV drugs, amphetamines. Screenin/08 00:29 [facility] ED Fall Risk Assessment (Adult) History of falling in the last 3 months, ha1 including since admission No falls in past 3 months (0 pts) Confusion or Disorientation No (0 pts) Intoxicated or Sedated No (0 pts) Impaired Gait No (0 pts) Mobility Assist Device Used No (0 pt) Altered Elimination No (0 pt) Score/Fall Risk Level 0 - 2 = Low Risk Oriented to surroundings, Maintained a safe environment, Educated pt \T\ family on fall prevention, incl call for assistance when getting out of bed, Hourly rounding (assess needs \T\ fall precautionary measures) done. Abuse screen: Denies threats or abuse. Denies injuries from another. Nutritional screening: No deficits noted. Tuberculosis screening: No symptoms or risk factors identified. Assessment: 02/04 22:04 Reassessment: see triage assessment. ha1 23:00 Reassessment: Patient and/or family updated on plan of care and expected duration. Pain ha1 level reassessed. Patient is alert, oriented x 3, equal unlabored respirations, skin warm/dry/pink. 02/05 00:19 Reassessment: Patient and/or family updated on plan of care and expected duration. Pain vc1 level reassessed. Patient is alert, oriented x 3, equal unlabored respirations, skin warm/dry/pink. Patient states symptoms have improved. 01:58 Reassessment: No changes from previously documented assessment. Patient and/or family vc1 updated on plan of care and expected duration. Pain level reassessed. Patient is alert, oriented x 3, equal unlabored respirations, skin warm/dry/pink. 03:00 Reassessment: eyes closed. ha1 03:00 Respiratory: Airway is patent Respiratory effort is even, unlabored, Respiratory ha1 pattern is regular, symmetrical. 04:45 Reassessment: fax sheet sent. received by JESSICA Polo. ha1 Vital Signs: 02/04 22:00 BP 112 / 61; Pulse 82; Resp 17; Pulse Ox 99% ; vc1 22:04 BP 117 / 78; Pulse 77; Resp 17 S; Temp 98; Pulse Ox 100% on R/A; Weight 72.57 kg; ha1 23:00 BP 106 / 70; Pulse 81; Resp 17; Pulse Ox 97% ; vc1 23:19 BP 112 / 69; Pulse 80; Resp 17 S; Pulse Ox 97% on R/A; ha1 02/05 00:00 BP 109 / 66; Pulse 77; Resp 16; Pulse Ox 97% ; vc1 01:00 BP 96 / 60; Pulse 81; Resp 15; Pulse Ox 96% ; vc1 02:00 BP 100 / 65; Pulse 73; Resp 16 S; Pulse Ox 95% on R/A; ha1 03:30 BP 105 / 72; Pulse 67; Resp 15 S; Pulse Ox 96% on R/A; ha1 04:30 BP 101 / 76; Pulse 70; Resp 16 S; Pulse Ox 95% on R/A; ha1 ED Course: 02/04 22:04 Patient arrived in ED. kb 22:04 Patient has correct armband on for positive identification. Placed in gown. Bed in low ha1 position. Call light in reach. Side rails up X 1. 22:04 Arm band placed on right wrist. ha1 22:05 Annie Tello FNP-C [facility]. kb 22:05 Bari Cowan MD is Attending Physician. kb 22:12 Triage completed. ha1 22:13 Inserted saline lock: 20 gauge in right antecubital area, using aseptic technique. oe Blood collected. 22:46 Urine collected: clean catch specimen, sherley colored. oe 23:53 CT Abd/Pelvis - IV Contrast Only In Process Unspecified. EDMS 02/05 03:34 Silvino Bhatt MD is Hospitalizing Provider. sp4 04:59 No provider procedures requiring assistance completed. Patient admitted, IV remains in ha1 place. 05:00 Provided Education on: need for admit . ha1 Administered Medications: 02/04 22:54 Drug: morphine IVP or IV 4 mg IVP once over 4 mins Route: IVP; Infused Over: 4 mins; ha1 Site: right antecubital; 23:20 Follow up: Response: No adverse reaction; Marked relief of symptoms; Pain is decreased; ha1 RASS: Alert and Calm (0) 22:54 Drug: Ondansetron IVP 4 mg IVP once; over 2 minutes Route: IVP; Site: right antecubital;ha1 23:20 Follow up: Response: No adverse reaction ha1 22:54 Drug: NS 0.9% IV 1000 ml IV at 1000 ml once Route: IV; Rate: 1000 ml; Site: right ha1 antecubital; 02/05 00:30 Follow up: Response: No adverse reaction; IV Status: Completed infusion; IV Intake: ha1 1000ml 00:55 Drug: Diazepam PO 5 mg PO once Route: PO; vc1 01:30 Follow up: Response: No adverse reaction; Marked relief of symptoms ha1 00:57 Drug: Diazepam IVP 5 mg IVP once Route: IVP; Site: right antecubital; vc1 01:30 Follow up: Response: No adverse reaction; Marked relief of symptoms ha1 01:05 CANCELLED (wrong providerr): diazepam5 mg PO once vc1 04:35 Drug: Promethazine IM 50 mg IM once Route: IM; Site: left ventrogluteal; vc1 05:01 Follow up: Response: No adverse reaction; Marked relief of symptoms ha1 04:35 Drug: NS 0.9% IV 1000 ml IV at 1 bolus Per protocol; 1000 mL bolus Route: IV; Rate: 1 vc1 bolus; Site: right antecubital; 04:35 Drug: morphine IVP or IV 4 mg IVP once over 4 mins Route: IVP; Infused Over: 4 mins; vc1 Site: right antecubital; 05:01 Follow up: Response: No adverse reaction; Marked relief of symptoms; Pain is decreased; ha1 RASS: Alert and Calm (0) 04:36 CANCELLED (Inappropriate at this time): morphineor iv 8 mg IVP once over 4 mins vc1 Medication: 00:30 VIS not applicable for this client. ha1 Intake: 00:30 IV: 1000ml; Total: 1000ml. ha1 Outcome: 03:37 Decision to Hospitalize by Provider. sp4 04:59 Condition: stable ha1 05:55 Admitted to Med/surg accompanied by tech, via stretcher, room 208, ha1 05:55 Instructed on the need for admit, Demonstrated understanding of instructions, 05:56 Patient left the ED. ha1 Signatures: Dispatcher [employer] EDMS Annie Tello, DRAKEC DIRECTOR OF INSTITUTIONAL SALES-Germán Peace Vanessa, RN RN vc1 Fani Martines, RN RN ha1 Bari Cowan MD MD sp4
--- NOTE | 2024-02-06 03:38 | EDPHYS ---
Physician Documentation [facility] Name: Bro Yung Age: 58 yrs Sex: Male : 1965 Arrival Date: 02/05/2024 Time: 22:01 Bed 7 Private MD: ED Physician Bari Cowan HPI: 02/04 22:53 This 58 yrs old Male presents to ER via EMS with complaints of scrotal pain. kb 22:53 Pt is a 58 year old male who presents for pain to scrotum due to inguinal hernias. kb States he has had the hernias for 7 years, but the pain has gotten worse. . Historical: - Allergies: 22:12 No Known Allergies; ha1 - PMHx: 22:12 Anxiety; Bipolar disorder; Depression; Schizophrenia; ha1 - PSHx: 22:12 Ankle; eye; Nose; Tonsillectomy; ha1 - Immunization history:: Adult Immunizations not up to date. - Infectious Disease History:: Denies. - Social history:: Smoking status: Patient reports the use of cigarette tobacco products, smokes one-half pack cigarettes per day, Patient uses IV drugs, amphetamines. ROS: 22:55 Constitutional: As per HPI kb Exam: 22:55 Constitutional: This is a well developed, well nourished patient who is awake, alert, kb and in no acute distress. Head/Face: Normocephalic, atraumatic. ENT: Moist Mucous membranes Cardiovascular: Regular rate Respiratory: Respirations even and unlabored. No increased work of breathing. Talking in full sentences Abdomen/GI: Soft, non-tender. No distention Skin: Warm, dry with normal turgor. Normal color. MS/ Extremity: Pulses equal, no cyanosis. Neurovascular intact. Full, normal range of motion. Neuro: Awake and alert, GCS 15, oriented to person, place, time, and situation. Moves all extremities. Normal gait. 22:55 Abdomen/GI: Hernia: noted in the right inguinal area and left inguinal area, tenderness, Vital Signs: 22:00 BP 112 / 61; Pulse 82; Resp 17; Pulse Ox 99% ; vc1 22:04 BP 117 / 78; Pulse 77; Resp 17 S; Temp 98; Pulse Ox 100% on R/A; Weight 72.57 kg; ha1 23:00 BP 106 / 70; Pulse 81; Resp 17; Pulse Ox 97% ; vc1 23:19 BP 112 / 69; Pulse 80; Resp 17 S; Pulse Ox 97% on R/A; ha1 02/05 00:00 BP 109 / 66; Pulse 77; Resp 16; Pulse Ox 97% ; vc1 01:00 BP 96 / 60; Pulse 81; Resp 15; Pulse Ox 96% ; vc1 02:00 BP 100 / 65; Pulse 73; Resp 16 S; Pulse Ox 95% on R/A; ha1 03:30 BP 105 / 72; Pulse 67; Resp 15 S; Pulse Ox 96% on R/A; ha1 04:30 BP 101 / 76; Pulse 70; Resp 16 S; Pulse Ox 95% on R/A; ha1 MDM: 02/04 22:05 Patient medically screened. kb 22:55 Data reviewed: vital signs, nurses notes. tatum 02/05 00:52 Management of patient was discussed with the following: Layout Technician: Dr Nova winn recommends valium 5mg IV and try to reduce hernia. . ED course: Discussed Dr Bhatt's recommendation with Dr Cowan. He recommends waiting 30 minutes after valium to attempt reduction. He will take over pt's care from this point, try to reduce hernia and call Dr Bhatt back. 01:10 Transition of care: After a detail discussion of the patient's case, care is kb transferred to Bari Cowan MD. 03:37 Differential Diagnosis altered mental status, sepsis, flu. Consideration of sp4 Admission/Observation Patient was admitted/placed on observation. Escalation of care including admission/observation considered. Management of patient was discussed with the following: Hospitalist: Admission team . ED course: CT - PROCEDURE: Abdomen Pelvis W Contrast CLINICAL HISTORY: ABD PAIN TECHNIQUE: Contiguous axial images obtained through the abdomen and pelvis following the uneventful administration of IV contrast. Coronal and sagittal reformatted images were provided. This exam was performed according to our departmental dose-optimization program, which includes automated exposure control, adjustment of the mA and/or kV according to patient size and/or use of iterative reconstruction technique. COMPARISON: Prior images are not available for comparison FINDINGS: Lung bases: Atelectatic changes in the lung bases. Liver: Unremarkable Gallbladder and biliary system: Unremarkable Pancreas: Unremarkable Spleen: Unremarkable Adrenals: Unremarkable Kidneys: Normal renal cortical enhancement. No calculi. No hydronephrosis. GI: Large left inguinal hernia with herniation of sigmoid colon. There is mild mucosal thickening of herniated colon at the hernia opening which could reflect vascular compromise. There is no significant prominent distention of colon to suggest obstruction secondary to incarceration. No pneumatosis intestinalis or free intraperitoneal air. Appendix: No findings to suggest acute appendicitis. Urinary bladder: Thickening of the sanchez of the urinary bladder which may be secondary to cystitis or chronic outlet obstruction. Reproductive: Unremarkable as visualized Lymph nodes: No pathologically enlarged lymph nodes. Peritoneum: No focal fluid collection. No free air. Vessels: No abdominal aortic aneurysm. Abdominal wall: [Right inguinal ring with dilatation of the right inguinal canal and no herniated segments of bowel on the right. Bones: Unremarkable IMPRESSION: 1. Large left inguinal hernia with herniation of sigmoid colon. There is mild mucosal thickening of herniated colon at the hernia opening which could reflect vascular compromise. There is no significant prominent distention of colon to suggest obstruction secondary to incarceration. No pneumatosis intestinalis or free intraperitoneal air. 2. Thickening of the sanchez of the urinary bladder which may be secondary to cystitis or chronic outlet obstruction. . ED course: Patient was admitted to Dr. Bhatt with general surgery. General surgeon did assist patient in the emergency department and reduced his hernia. General surgeon requested internal medicine consult for medical management. . 02/04 22:05 Order name: CBC with Diff; Complete Time: 23:25 kb 02/04 22:05 Order name: CMP; Complete Time: 23:25 kb 02/04 22:05 Order name: Urinalysis w/ reflexes; Complete Time: 23:11 kb 02/05 03:45 Order name: Urine Drug Screen sp4 02/04 22:05 Order name: CT Abd/Pelvis - IV Contrast Only kb 02/05 03:48 Order name: CONS Physician Consult EDMS 02/04 22:05 Order name: IV Saline Lock; Complete Time: 22:37 kb 02/04 22:05 Order name: Labs collected and sent; Complete Time: 22:37 kb Administered Medications: 02/04 22:54 Drug: morphine IVP or IV 4 mg IVP once over 4 mins Route: IVP; Infused Over: 4 mins; ha1 Site: right antecubital; 23:20 Follow up: Response: No adverse reaction; Marked relief of symptoms; Pain is decreased; ha1 RASS: Alert and Calm (0) 22:54 Drug: Ondansetron IVP 4 mg IVP once; over 2 minutes Route: IVP; Site: right antecubital;ha1 23:20 Follow up: Response: No adverse reaction ha1 22:54 Drug: NS 0.9% IV 1000 ml IV at 1000 ml once Route: IV; Rate: 1000 ml; Site: right ha1 antecubital; 02/05 00:30 Follow up: Response: No adverse reaction; IV Status: Completed infusion; IV Intake: ha1 1000ml 00:55 Drug: Diazepam PO 5 mg PO once Route: PO; vc1 01:30 Follow up: Response: No adverse reaction; Marked relief of symptoms ha1 00:57 Drug: Diazepam IVP 5 mg IVP once Route: IVP; Site: right antecubital; vc1 01:30 Follow up: Response: No adverse reaction; Marked relief of symptoms ha1 01:05 CANCELLED (wrong providerr): diazepam5 mg PO once vc1 04:35 Drug: Promethazine IM 50 mg IM once Route: IM; Site: left ventrogluteal; vc1 05:01 Follow up: Response: No adverse reaction; Marked relief of symptoms ha1 04:35 Drug: NS 0.9% IV 1000 ml IV at 1 bolus Per protocol; 1000 mL bolus Route: IV; Rate: 1 vc1 bolus; Site: right antecubital; 04:35 Drug: morphine IVP or IV 4 mg IVP once over 4 mins Route: IVP; Infused Over: 4 mins; vc1 Site: right antecubital; 05:01 Follow up: Response: No adverse reaction; Marked relief of symptoms; Pain is decreased; ha1 RASS: Alert and Calm (0) 04:36 CANCELLED (Inappropriate at this time): morphineor iv 8 mg IVP once over 4 mins vc1 Disposition: 03:34 Co-signature as Attending Physician, Bari Cowan MD I agree with the assessment sp4 and plan of care. I reviewed the patient's care provided by Advanced Practice Provider \T\ agree w/ the diagnosis \T\ care plan. I personally saw the pt \T\ performed a substantive portion of the visit, incldng all aspects of the (History/Exam/Medical Decision Making). Disposition Summary: 02/06/24 03:37 Hospitalization Ordered Notes: Hospitalization Status: Inpatient Admission sp4 Provider: Silvino Bhatt sp4 Location: Telemetry/MedSurg (Inpatient) sp4 Condition: Stable sp4 Problem: new sp4 Symptoms: have improved sp4 Bed/Room Type: Standard sp4 Room Assignment: 208(02/06/24 04:29) jb4 Diagnosis - Unilateral inguinal hernia, without obstruction or gangrene sp4 - Left inguinal hernia with herniation of sigmoid colon. Acute cystitis sp4 Forms: - Medication Reconciliation Form sp4 - SBAR form sp4 - Leadership Thank You Letter sp4 Signatures: Dispatcher [employer] EDMS Annie Tello, SOW FARM TECHNICIAN-C SOW FARM TECHNICIAN-Magdyb Silvino Gotti, RN RN jb4 Veronique Medrano RN RN vc1 Fani Martines, RN RN ha1 Bari Cowan MD MD sp4 Corrections: (The following items were deleted from the chart) 02/04 22:06 22:06 Abdomen Pelvis W Con+CT.RAD.BRZ ordered. EDMS EDMS 02/05 01:05 01:03 Diazepam PO 5 mg PO once ordered. vc1 vc1 03:45 03:45 URINE DRUG SCREEN+UC.LAB.BRZ ordered. EDMS EDMS 04:29 03:37 sp4 jb4 04:36 04:20 morphine IVP or IV 8 mg IVP once over 4 mins ordered. sp4 vc1
--- NOTE | 2024-02-06 04:13 | P.CNS ---
Date of Consult: 02/06/24 Reason for Consult: Medical management Requesting Physician: Silvino Bhatt Chief Complaint: Abdominal pain History of Present Illness: 58-year-old male with a past medical history substance abuse disorder anxiety; Bipolar disorder; Depression presented to the emergency room with abdominal pain. He reports scrotum due to inguinal hernias. States he has had the hernias for 7 years, inguinal hernia pain has gotten worse. Was noted having inguinal hernia, Dr. Bhatt surgery was consulted. Plan to keep patient n.p.o., admit to hospital for surgery evaluation. Patient has a history of methamphetamine use, urine drug screen ordered, significant psych history, Hospital admission to Dr. Bhatt, for Unilateral inguinal hernia, without obstruction or gangrene, Left inguinal hernia with herniation of sigmoid colon, hospital medicine consult comorbidities, schizophrenia, bipolar, depression, substance abuse disorder, history of methamphetamine IV drug use - Past Medical/Surgical History -: Bipolar -: Anxiety -: Depression -: Substance abuse disorders with meth and -: Schizophrenia -: Ankle -: Tonsillectomy -: Nose -: I surgery Psychosocial/ Personal History: Schizophrenia, substance abuse disorder with methamphetamine, IV drug use, tobacco use - Social History Smoking Status: Current every day smoker Caffeine use: Yes <Zenaida Dubon - Last Filed: 02/06/24 05:23> <Mike Arizmendi - Last Filed: 02/06/24 12:08> Allergies No Known Allergies Allergy (Unverified 12/11/16 13:06) Review of Systems Per HPI <Zenaida Dubon - Last Filed: 02/06/24 05:23> Physical Examination General: Alert, In no apparent distress, Oriented x3 HEENT: Atraumatic, Normocephalic Neck: Supple, 2+ carotid pulse no bruit Respiratory: Clear to auscultation bilaterally, Normal air movement Cardiovascular: No edema, Normal pulses Capillary refill: <2 Seconds Gastrointestinal: Other (Bilateral inguinal hernia) Musculoskeletal: No clubbing, No swelling Integumentary: No breakdown, No significant lesion Neurological: Normal speech, Normal strength at 5/5 x4 extr Other Physical/Emotional Findings: hx Schizophrenia Laboratory Data (last 24 hrs) 02/05/24 02/05/24 22:30 22:30 WBC 8.70 Hgb 13.9 Hct 40.2 Plt Count 174 Sodium 138 Potassium 3.1 L BUN 13 Creatinine 0.99 Glucose 88 Total Bilirubin 1.2 H AST 60 H ALT 51 Alkaline Phosphatase 52 <LingZenaida - Last Filed: 02/06/24 05:23> Temp Pulse Resp BP Pulse Ox 97.9 F 70 16 95/64 95 02/06/24 08:00 02/06/24 08:00 02/06/24 10:52 02/06/24 08:00 02/06/24 10:52 Laboratory Data (last 24 hrs) 02/05/24 02/05/24 22:30 22:30 WBC 8.70 Hgb 13.9 Hct 40.2 Plt Count 174 Sodium 138 Potassium 3.1 L BUN 13 Creatinine 0.99 Glucose 88 Total Bilirubin 1.2 H AST 60 H ALT 51 Alkaline Phosphatase 52 <Mike Arizmendi C - Last Filed: 02/06/24 12:08> Conclusions/Impression: Assessment plan Unilateral inguinal hernia, without obstruction or gangrene Left inguinal hernia with herniation of sigmoid colon. Surgery to consult Dr. Bhatt, n.p.o. EKG, preop ordered CT of the abdomen pelvis right, inguinal hernia, without obstruction, Left inguinal hernia with herniation of sigmoid colon. Acute cystitis IV fluids, IV antibiotic UA Hypokalemia Trend electrolytes replace. Substance abuse disorder Anxiety depression History of methamphetamine use Bipolar Urine drug screen, as needed antianxiety medications Resume home meds when p.o. blood cultures, in am rule bacteremia, preop ordered Full code Diet n.p.o. DVT SCDs Critical Care: No Time Spent Managing Pts care (In Minutes): 55 <Zenaida Dubon - Last Filed: 02/06/24 05:23> Conclusions/Impression: Pt seen and examined. I agree withe the note by the BOTTLE HOUSE QUALITY CONTROL TECHNICIAN. Pt is a 58 yo male with pas medical history of Anxiety, bipolar, and polysubstance abuse who presents with abdominal pain and scrotal swelling. Pt reports that the bilateral inguinal hernia has been present for many years but it progressive worsened over the past few days. On admission, CT abd shows bilateral inguinal hernia. Lab studies show wbc 8.7, K 3.1 and Cr 0.9. UA is negative for UTI. At bedside, pt is in mild discomfort due to being NPO and abdominal pain. A/P: Bilateral Inguinal hernia: Pt is NPO for inguinal hernia repair. His scrotum is swollen. Consulted Dr. Bhatt. Will continue prn pain med. Anxiety: prn ativan. 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 Pt was advised to quit using illicit drugs. <Mike Arizmendi - Last Filed: 02/06/24 12:08>
[2024-02-06] MEDS ORDERED: NA CHLORIDE 0.9% 1,000 ML ONE (04:28)
[2024-02-06] MEDS ORDERED: PROMETHAZINE INJ 25 MG/ML AMP ONE (04:28)
[2024-02-06] MEDS ORDERED: MORPHINE 4 MG/ML SYR ONE (04:28)
[2024-02-06 04:36] LABS: Barbiturates NEGATIVE (NEGATIVE); Benzodiazepines NEGATIVE (NEGATIVE); Cocaine NEGATIVE (NEGATIVE); METHAMPHETAM POSITIVE (NEGATIVE); Methadone NEGATIVE (NEGATIVE); Opiates NEGATIVE (NEGATIVE); Phencyclidine NEGATIVE (NEGATIVE); THC Cannibis NEGATIVE (NEGATIVE)
[2024-02-06] MEDS ORDERED: ACETAMINOPHEN 650MG/RECT SUPP PR PRN (05:58)
[2024-02-06] MEDS ORDERED: ONDANSETRON 4 MG/2 ML VIAL IV PRN (05:58)
[2024-02-06] MEDS ORDERED: ALBUTEROL 2.5 MG/3 ML NEB SOL NEB PRN ×2 (05:58→17:06)
[2024-02-06] MEDS: D5.45NS W/KCL 20MEQ 1,000 ML IV SCH (06:08)
[2024-02-06] MEDS: DIAZEPAM 10 MG/2 ML INJ SYRINGE IV SCH (06:37)
[2024-02-06 06:52] VITALS: BMI 26.4
[2024-02-06] MEDS: KCL 20 MEQ/100 mL IVPB 20 MEQ/100 ML BAG IV SCH (09:22)
[2024-02-06] MEDS: MORPHINE 4 MG/ML SYR IV PRN (10:22)
[2024-02-06 11:12] LABS: Specific Gravity > 1.030 (1.005-1.030); Sqamous Epithelial None Seen /HPF (None Seen); Urine Bacteria <20 /HPF (<20); Urine Bilirubin NEGATIVE (Negative); Urine Blood Negative (Negative); Urine Clarity Clear (Clear); Urine Color Yellow (Yellow); Urine Culture Reflex Order NOT NEEDED; Urine Glucose NEGATIVE (Negative); Urine Ketones NEGATIVE (Negative); Urine Microscopic Reflex YN ORDER UMIC; Urine Mucus Slight /HPF (None Seen); Urine Nitrite NEGATIVE (Negative); Urine Protein TRACE (Negative); Urine RBC <5 /HPF (None Seen); Urine Urobilinogen 2+ (Normal); Urine WBC <5 /HPF (<5); Urine pH 5.5 (5.0-7.0)
[2024-02-06] MEDS: Ringers Lactate 1,000 ML IV ONE (12:40)
--- NOTE | 2024-02-06 12:58 | RAD REPORT ---
EXAM DESCRIPTION: CT - Abdomen Pelvis W Contrast - 02/06/2024 6:04 am CLINICAL HISTORY: ABD PAIN COMPARISON: 09/05/2019 TECHNIQUE: CT of the abdomen and pelvis performed following the administration of IV contrast. No or al contrast. This exam was performed according to our departmental dose-optimization program, which i ncludes automated exposure control, adjustment of the mA and/or kV according to patient size and/or u se of iterative reconstruction technique. FINDINGS: Lung Bases: Bilateral dependent atelectasis. Abdomen: Liver: The liver has normal contour and density. No suspicious mass. Gallbladder: No calcified gallstones. No significant biliary dilatation. Spleen, Pancreas, and Adrenal Glands: The spleen, pancreas, and adrenal glands are unremarkable. Kidneys: No suspicious mass. No urinary tract calculi. No hydronephrosis. Vasculature: The aorta and IVC have normal caliber and position. Scattered atherosclerotic plaque. Stomach: The stomach and duodenum have normal course. Other: No free intraperitoneal air. No free fluid or lymphadenopathy. Pelvis: Bladder: Diffuse bladder wall thickening and trabeculation. Urinary bladder is distended. Bowel: Left inguinal hernia containing fat and colon. No associated obstruction. There is moderate stool in the colon. Appendix: Normal appendix. Pelvis: No suspicious mass. Bones: No destructive bone lesions identified. IMPRESSION: 1. Left inguinal hernia containing fat and colon. No associated obstruction. 2. Diffuse bladder wall thickening and trabeculation. Findings are probably due to chronic urinary outlet obstruction. If patient has any signs or symptoms of infection, correlate with urinalysis. Electronically signed by: Eleanor Champion MD 12/04/2023 01:28 AM HEEL COVERER Due to temporary technical issues with the PACS/Fluency reporting system, reports are being signed by the in house radiologist without review as a courtesy to ensure prompt reporting. The interpreting r adiologist is fully responsible for the content of the report.
[2024-02-06] MEDS ORDERED: MIDAZOLAM HCL 2 MG/2 ML INJ ONE (13:42)
[2024-02-06] MEDS ORDERED: FENTANYL CITR 100 MCG/2 ML ONE (13:42)
[2024-02-06] MEDS ORDERED: propofoL 200 MG/20 ML VIAL IV ONE (13:42)
[2024-02-06] MEDS ORDERED: LIDOCAINE 1% MPF 5 ML VIAL ONE (13:42)
[2024-02-06] MEDS ORDERED: ROCURONIUM 50 MG/5 ML VIAL IV ONE ×2 (13:42→15:12)
[2024-02-06] MEDS: CEFAZOLIN SODIUM 2 GM/VIAL ONE (13:49)
--- NOTE | 2024-02-06 13:50 | P.CNS ---
Date of Consult: 02/06/24 PC: I was asked see this patient in regards to an incarcerated left inguinal hernia. HPC: Patient was at home, noticed that he had onset of pain in his left groin. He is known he has a left and a right inguinal hernia. He felt something go down into his left groin, he could not get it to reduce back up. He had been able to reduce his hernias on previous occasions, but now he found it was stuck. PSHx: Substance abuse, on disability PMHx: Borderline hypertension, Social Hx: No known allergies Sys R: States has been in relatively good shape apart from this O/E: Awake alert vital signs are stable HEENT: Within normal limits Chest: Air entry equal bilaterally Abd: Abdomen is soft, however has a large incarcerated left inguinal hernia. Also has a positive silk sign on the right side but nothing down the hernia. [place]: Intact Data: CT scan demonstrates incarcerated left inguinal Impression: Incarcerated left inguinal hernia. Plan: In the emergency room, patient was given some IV Valium. We were then able to after the patient had been relaxed and placed into Trendelenburg apply gentle pressure to the left inguinal area. After a few moments, I was able to manipulate the hernia back into the abdominal cavity. Having got it reduced, the patient noticed a 6 sudden decrease in his pain. I plan to take him to the operating room in the morning for a laparoscopic possible open procedure to fix both his inguinal hernias. The risks of this procedure have been discussed with the patient. The possibility of bleeding, infection, injury to bowel blood vessels and surrounding structures were explained. The possible need for further surgeries and procedures was described. Recurrence and chronic pain were also outlined. He understands and wants us to proceed.
[2024-02-06] MEDS: BUPIVACAINE 0.5% PF 10 ML VIAL ONE (14:33)
[2024-02-06] MEDS ORDERED: ONDANSETRON 4 MG/2 ML VIAL ONE (15:21)
[2024-02-06] MEDS ORDERED: KETOROLAC 30 MG/ML INJ ONE (15:21)
[2024-02-06] MEDS: SUGAMMADEX SODIUM 200 MG/2 ML VIAL IV ONE (16:31)
--- NOTE | 2024-02-06 16:45 | P.OP ---
Preoperative diagnosis: Left, possible right inguinal hernia Postoperative diagnosis: Bilateral indirect inguinal hernias Primary procedure: Laparoscopic reduction and repair of left inguinal hernia, repair of right Anesthesia: General Estimated blood loss: Less than 20 cc Specimen: The specimen was sent Operative Technique: Patient brought the operating room placed supine on the table. After the induction of adequate general endotracheal anesthesia, there the abdomen was prepped with a DuraPrep solution, he was draped in the usual aseptic manner. A Vásquez catheter had also been inserted under aseptic technique. Attention was turned towards the umbilicus. The area was infiltrated with 0.25% Marcaine. A skin incision was now made. This is brought down through the skin and subcutaneous tissue. The fascia was encountered in the midline. We open the fascia over the rectus sheath. A Linnea retractor was now placed into this area a finger was then passed down to widen the small incision and the balloon dissector was passed down through the rectus sheath and inflated. At this point the dilating balloon was removed, and the structural element was left in place. A 10 mm trocar was now placed down through this and a preperitoneal was begun. Having visualize the preperitoneal space. We could see that there was good dissection on the right side. On the left, where the patient had had the previous incarcerated inguinal hernia, there was some inflammation of the peritoneum. It did not come down that easily. It apparently is a longstanding hernia as there is quite a lot of adhesions of the sac to the actual sigmoid colon. Gentle dissection was be done on the right side. We were finally able to detach the sac from the spermatic cord. Applying traction to the testicle the distal portions of the gubernaculum was released. We have to get the hernia sac back up into the peritoneal cavity. During this dissection a small hole was made into the hernia sac, we did develop a pneumoperitoneum. Attention was now turned towards the left side. Once again we could see there was a very large thickened old longstanding sac running parallel to the spermatic cord. It went down into the inguinal ring. Applying traction on the testicle we were able to dissect up and out of these thickened inguinal hernia sac. It was dissected off the spermatic cord. There was also some small bleeding of the smaller vessels associated with the vas. The vas however remained intact. At this point the abdomen was inspected to ensure adequate hemostasis. There was some oozing coming from the dissected and inflamed tissue on the left side of the peritoneal cavity. A piece of left median mesh was now introduced into the preperitoneal space. It was brought up to the anterior abdominal wall. It was secured using a pro tacker at Rogelio's ligament. 2 other small tacks were placed in this area to hold it in place. Making sure that the mesh extended out laterally a small what I call light tach was partially spun into the tissue out laterally to hold that edge out. Attention was turned back towards the right side of the peritoneal cavity. A piece of right median mesh was now introduced into the preperitoneal space at this site was fixed in the usual manner. A staple was used to hold it at the Rogelio's ligament again wanted to out laterally. At this point the abdomen was inspected to ensure adequate hemostasis. By gentle manipulation of the trocars were able to deflate the preperitoneal space. We could see that the peritoneum rolled up on top of the mesh and did not go und erneath it as well as redundant hernia sac bags that laid there as well. At this point the trocars were removed, the fascia in the midline was approximated with an absorbable suture. The pneumoperitoneum having been collapsed, kavita were applied to the skin. At the end of the procedure the patient was in stable condition was sent to the recovery room. Needle sponge instrument count were correct. No drains were placed. Complications: None Transferred to: Recovery Room Condition: Good
[2024-02-06] MEDS: ONDANSETRON 4 MG/2 ML VIAL ONE (17:18)
[2024-02-06] MEDS: HYDROMORPHONE HCL 1 MG/ML INJ ONE (17:19)
[2024-02-06 17:43] VITALS: O2SAT 96
[2024-02-07 03:00] LABS: Absolute Basophils 0.1 K/uL (0-0.5); Absolute Monocytes 0.6 K/uL (0.1-1.3); Absolute Neutrophil 8.1 K/uL (1.8-8.0); Basophils % 0.6 % (0-1.3); Eosinophils % 0.1 % (0-4.4); Hematocrit 36.5 % (39.6-49.0); Hemoglobin 12.6 g/dL (13.6-17.9); Lymphocytes % 9.8 % (15.3-44.8); MCH 33.3 pg (27.0-35.0); MCHC 34.6 g/dL (32.0-36.0); MCV 96.3 fL (80-100); MPV 6.4 fL (7.6-11.3); Monocytes % 6.3 % (3.3-12.3); Neutrophils % 83.2 % (41.7-73.7); Platelets 185 thou/uL (152-406); RBC Red Blood Cell Count 3.79 M/uL (4.33-5.43); Red Cell Distribution Width 13.2 % (12.1-15.2)
[2024-02-07 04:01] LABS: Albumin 2.7 g/dL (3.4-5.0); Albumin/Globulin Ratio 0.8 (1.1-1.8); Anion Gap 7.4 mEq/L (5.0-15.0); Bilirubin Total 0.7 mg/dL (0.2-1.0); Globulin 3.5 g/dL (2.3-3.5); Potassium 4.4 mEq/L (3.5-5.1); Protein, Total 6.2 g/dL (6.4-8.2)
[2024-02-07] MEDS: HYDROCODONE/APAP 7.5/325 MG TAB PO PRN (06:14)
--- NOTE | 2024-02-07 09:12 | P.DS ---
Admission Date: 02/06/24 Discharge Date: 02/07/24 Reason for Admission: Abdominal pain Consultations: Dr. Bhatt Procedures: Inguinal hernia repair Brief History of Present Illness: 58-year-old male with a past medical history substance abuse disorder anxiety; Bipolar disorder; Depression presented to the emergency room with abdominal pain. He reports a swollen scrotum due to inguinal hernias. States he has had the hernias for 7 years, inguinal hernia pain has gotten worse. Was noted having inguinal hernia, Dr. Bhatt surgery was consulted. Plan to keep patient n.p.o., admit to hospital for surgery evaluation. Patient has a history of methamphetamine use, urine drug screen ordered, significant psych history. Hospital admission to Dr. Bhatt, for inguinal hernia, without obstruction or gangrene, Left inguinal hernia with herniation of sigmoid colon, hospital medicine consult comorbidities, schizophrenia, bipolar, depression, substance abuse disorder, history of methamphetamine IV drug use. Hospital Course: Mr. Yung went for surgical repair of his bilateral inguinal hernias yesterday. He did well over the course of the procedure and has tolerated his diet and had urinary output since the procedure. The patient is vastly thankful to Dr. Bhatt and will follow-up with him outpatient. <Abby Goldberg - Last Filed: 02/07/24 09:13> Admission Date: 02/06/24 Discharge Date: 02/07/24 Hospital Course: Pt seen and examined. I agree with the note by the MANAGER TELEMETRY. Pt is feeling better after bilateral ingunal hernia repair. Pt urinated with ease. Ok to discharge. Take prn pain med and miralax. <Mike Arizmendi - Last Filed: 02/07/24 10:39> Disposition: ROUTINE DISCHARGE Discharge Condition: GOOD Vital Signs/Physical Exam: Temp Pulse Resp BP Pulse Ox 97.7 F 76 18 113/57 L 96 02/07/24 04:00 02/07/24 04:00 02/07/24 06:46 02/07/24 04:00 02/07/24 06:46 General: Alert, In no apparent distress, Oriented x3 HEENT: Atraumatic, Normocephalic Neck: Supple Respiratory: Normal air movement Cardiovascular: Normal pulses, Regular rate/rhythm Capillary refill: <2 Seconds Gastrointestinal: Soft and benign Musculoskeletal: No clubbing Integumentary: No rashes Neurological: Normal gait, Normal speech, Normal tone Lymphatics: No axilla or inguinal lymphadenopathy External genitalia: Tenderness, Other (Yesterday 02/06/24 pt's scrotum was full, tender, and bulging with intestine. Total with minimal tenderness, scotum soft and without evidence of hernia s/p repair. Pt voided without difficulty today) Other Physical/Emotional Findings: hx Schizophrenia Laboratory Data at Discharge: WBC 9.70 thou/uL (4.3-10.9) 02/07/24 02:44 Hgb 12.6 g/dL (13.6-17.9) L 02/07/24 02:44 Hct 36.5 % (39.6-49.0) L 02/07/24 02:44 Plt Count 185 thou/uL (152-406) 02/07/24 02:44 Sodium 137 mEq/L (136-145) 02/07/24 02:44 Potassium 4.4 mEq/L (3.5-5.1) D 02/07/24 02:44 BUN 19 mg/dL (7-18) H 02/07/24 02:44 Creatinine 0.96 mg/dL (0.70-1.30) 02/07/24 02:44 Glucose 177 mg/dL (74-106) H 02/07/24 02:44 Total Bilirubin 0.7 mg/dL (0.2-1.0) 02/07/24 02:44 AST 37 U/L (15-37) 02/07/24 02:44 ALT 36 U/L (16-61) 02/07/24 02:44 Alkaline Phosphatase 43 U/L (45-117) L 02/07/24 02:44 <Godlberg,Abby Emile - Last Filed: 02/07/24 09:13> Vital Signs/Physical Exam: Temp Pulse Resp BP Pulse Ox 97.8 F 78 18 102/60 96 02/07/24 08:00 02/07/24 08:00 02/07/24 08:00 02/07/24 08:00 02/07/24 08:00 Laboratory Data at Discharge: WBC 9.70 thou/uL (4.3-10.9) 02/07/24 02:44 Hgb 12.6 g/dL (13.6-17.9) L 02/07/24 02:44 Hct 36.5 % (39.6-49.0) L 02/07/24 02:44 Plt Count 185 thou/uL (152-406) 02/07/24 02:44 Sodium 137 mEq/L (136-145) 02/07/24 02:44 Potassium 4.4 mEq/L (3.5-5.1) D 02/07/24 02:44 BUN 19 mg/dL (7-18) H 02/07/24 02:44 Creatinine 0.96 mg/dL (0.70-1.30) 02/07/24 02:44 Glucose 177 mg/dL (74-106) H 02/07/24 02:44 Total Bilirubin 0.7 mg/dL (0.2-1.0) 02/07/24 02:44 AST 37 U/L (15-37) 02/07/24 02:44 ALT 36 U/L (16-61) 02/07/24 02:44 Alkaline Phosphatase 43 U/L (45-117) L 02/07/24 02:44 <Mike Arizmendi - Last Filed: 02/07/24 10:39> Diet: Regular <Goldberg,Abby Emile - Last Filed: 02/07/24 09:13> <Mike Arizmendi - Last Filed: 02/07/24 10:39> New Medications: Hydrocodone 7.5/APAP 325 [[place] 7.5/325 mg*] 1 tab PO Q4H PRN 5 Days #30 tab PRN Reason: Pain Scale 5-7 (Moderate) Physician Discharge Instructions: Mr. Yung went for surgical repair of his bilateral inguinal hernias yesterday. He did well over the course of the procedure and has tolerated his diet and had urinary output since the procedure. The patient is vastly thankful to Dr. Bhatt and will follow-up with him outpatient. Continue supportive garment, avoid lifting more that 5-10 pounds until follow up with Dr. Bhatt. Followup: NONE,NONE [Primary Care Provider] - Silvino Bhatt MD [ACTIVE - CAN ADMIT] -
[2024-02-07 09:29] VITALS: BP 102/60; TEMP 97.8
== END 2024-02-07 12:08 | disposition home or self-care (01) | DRG 351 ==
LOC: ER 22:01 → ERHOLD 02-06 03:42 → 2ND 02-06 05:14
PROVIDERS: ADMIT Surgery; ATTEND Surgery
PROC: 0YQA4ZZ Repair Bilateral Inguinal Region, Percutaneous Endoscopic Approach (ICD-10-PCS; principal; 2024-02-06 12:30)
DX: K40.90 Unilateral inguinal hernia, without obstruction or gangrene, not specified as recurrent (principal); N30.00 Acute cystitis without hematuria; N50.82 Scrotal pain; E87.6 Hypokalemia; F41.9 Anxiety disorder, unspecified; F31.9 Bipolar disorder, unspecified; F15.10 Other stimulant abuse, uncomplicated; F17.210 Nicotine dependence, cigarettes, uncomplicated; K40.20 Bilateral inguinal hernia, without obstruction or gangrene, not specified as recurrent
CPT/HCPCS: 36415; 74177; 80053; 80307; 81001; 84132; 85025; 96361; 96372; 96374; 96375; 99285; J1170; J2001; J2250; J2405; J2550; J2704; J3010; J3360; J3480; J7030; J7120; Q9967

== ENCOUNTER 2024-02-08 11:23 | Emergency (ER) | payer OTHER ==
[2024-02-08] MEDS ORDERED: HYDROCODONE/APAP 10/325 TAB ONE (12:02)
[2024-02-08] MEDS ORDERED: KETOROLAC 30 MG/ML INJ ONE (12:03)
--- NOTE | 2024-02-08 12:55 | EDPHYS ---
Physician Documentation [facility] Name: Bro Yung Age: 58 yrs Sex: Male : 1965 Arrival Date: 02/08/2024 Time: 11:23 Bed 20 Private MD: ED Physician Estuardo Silva HPI: 02/07 11:44 This 58 yrs old Male presents to ER via EMS with complaints of Fall Injury. ec2 11:44 Patient arrives today for evaluation of abdominal pain after a fall. Patient with ec2 recent hernia surgery, states that he fell on his left hip and is concerned that he also struck his abdomen. Patient with kavita in place. Patient reports injury occurred just prior to arrival, was ground-level.. Historical: - Allergies: 11:28 No Known Allergies; kc6 - PMHx: 11:28 Bipolar disorder; Anxiety; Depression; Schizophrenia; kc6 - PSHx: 11:28 Ankle; eye; Nose; Tonsillectomy; HERNIA REPAIR (Tonsillectomy); kc6 - Immunization history:: Adult Immunizations not up to date. - Infectious Disease History:: Denies. - Social history:: Smoking status: Patient reports the use of cigarette tobacco products, smokes one-half pack cigarettes per day. ROS: 11:44 Constitutional: as per hpi ec2 Exam: 11:44 Constitutional: GEN: NAD Head: atraumatic Eyes: EOMI Ears: External ears are ec2 normal. CV: regular rate LUNGS: no respiratory distress ABD: non-distended, soft, not guarding, not rigid SKIN: kavita in place, well-approximated, no dehiscence appreciated. MSK: no evidence of trauma NEURO: moves all extremities equally Vital Signs: 11:26 BP 117 / 74; Pulse 69; Resp 16 S; Pulse Ox 98% on R/A; Weight 72.57 kg (R); Height 5 kc6 ft. 8 in. (R); Pain 10/10; 12:10 BP 126 / 86; Pulse 71; Resp 16 S; Pulse Ox 96% on R/A; kc6 13:24 BP 133 / 88; Pulse 67; Resp 16 S; Pulse Ox 99% on R/A; kc6 11:26 Body Mass Index 24.33 (72.57 kg, 172.72 cm) kc6 11:26 Pain Scale: Adult kc6 MDM: 11:30 Patient medically screened. ec2 11:44 Data reviewed: vital signs. ED course: Patient arrives today for abdominal pain after ec2 fall with recent surgery. Examination remarkable for well-appearing nontoxic dividual is otherwise in no acute distress with a reassuring examination with well-appearing wounds. Will treat the patient's pain and reassess. Doubt solid organ injury given mechanism. Additionally no evidence of wound dehiscence. Suspect postoperative pain complicated by patient's fall.. 12:55 ED course: On reassessment patient with improvement in symptoms, ambulated to the ec2 bathroom without issues. Will discharge home. Instructed to follow-up with his surgeon and to fill his prescription for pain medications that he has not filled yet.. Administered Medications: 12:08 Drug: HYDROcodone-acetaminophen PO 10 mg-325 mg 1 tabs PO once Route: PO; [facility] 12:48 Follow up: Response: No adverse reaction; Pain is decreased; RASS: Alert and Calm (0) [facility] 12:08 Drug: Ketorolac IM 30 mg IM once Route: IM; Site: right deltoid; 6 12:48 Follow up: Response: No adverse reaction [facility] 13:13 Drug: oxyCODONE PO 10 mg PO once Route: PO; [facility] 13:24 Follow up: Response: No adverse reaction; Pain is decreased; RASS: Alert and Calm (0) [facility] Disposition Summary: 02/08/24 12:55 Discharge Ordered Notes: Location: Home ec2 Condition: Stable ec2 Diagnosis - Abdominal Pain ec2 - Post-operative Pain ec2 Followup: ec2 - With: Private Physician - When: - Reason: Re-evaluation by your physician Discharge Instructions: - Discharge Summary Sheet ec2 - Laparoscopic Inguinal Hernia Repair, Adult, Care After ec2 Forms: - Medication Reconciliation Form ec2 - Antibiotic Education ec2 - Prescription Opioid Use ec2 - Patient Portal Instructions ec2 - Leadership Thank You Letter ec2 Signatures: Renuka Torrez RN RN kc6 Estuardo Silva MD MD ec2
--- NOTE | 2024-02-08 12:55 | ER ---
Nurse's Notes [facility] Name: Bro Yung Age: 58 yrs Sex: Male : 1965 Arrival Date: 02/08/2024 Time: 11:23 Bed 20 Private MD: Diagnosis: Abdominal Pain;Post-operative Pain Presentation: 02/07 11:26 Chief complaint: Patient states: HE WAS GOING UP THE STAIRS TO HIS APARTMENT WHEN HE kc6 TRIPPED AND FELL ON TO HIS SURGICAL SITE. HERNIA REPAIR SURGERY YESTERDAY. RATES PAIN 07/10. Coronavirus screen: At this time, the client does not indicate any symptoms associated with coronavirus-19. Ebola Screen: No symptoms or risks identified at this time. Initial Sepsis Screen: Does the patient meet any 2 criteria? No. Patient's initial sepsis screen is negative. Does the patient have a suspected source of infection? No. Patient's initial sepsis screen is negative. Risk Assessment: Do you want to hurt yourself or someone else? Patient reports no desire to harm self or others. Onset of symptoms was February 08, 2024. 11:26 Method Of Arrival: EMS: [facility] kc6 11:26 Acuity: PATRICIO 3 kc6 Historical: - Allergies: 11:28 No Known Allergies; kc6 - PMHx: 11:28 Bipolar disorder; Anxiety; Depression; Schizophrenia; kc6 - PSHx: 11:28 Ankle; eye; Nose; Tonsillectomy; HERNIA REPAIR (Tonsillectomy); kc6 - Immunization history:: Adult Immunizations not up to date. - Infectious Disease History:: Denies. - Social history:: Smoking status: Patient reports the use of cigarette tobacco products, smokes one-half pack cigarettes per day. Screenin:28 [facility] ED Fall Risk Assessment (Adult) History of falling in the last 3 months, kc6 including since admission Yes- single mechanical fall (1 pt) Confusion or Disorientation No (0 pts) Intoxicated or Sedated No (0 pts) Impaired Gait No (0 pts) Mobility Assist Device Used No (0 pt) Altered Elimination No (0 pt) Score/Fall Risk Level 0 - 2 = Low Risk. Abuse screen: Denies threats or abuse. Denies injuries from another. Nutritional screening: No deficits noted. Tuberculosis screening: No symptoms or risk factors identified. Assessment: 11:26 General: Appears in no apparent distress. uncomfortable, well groomed, well developed, kc6 Behavior is calm, cooperative, appropriate for age. Pain: Complains of pain in umbilical area and suprapubic area Pain currently is 10 out of 10 on a pain scale. Noted to be grimacing, moaning. Neuro: Level of Consciousness is awake, alert, obeys commands, Oriented to person, place, time, situation, Appropriate for age. Cardiovascular: Capillary refill < 3 seconds. Respiratory: Airway is patent Trachea midline Respiratory effort is even, unlabored, Respiratory pattern is regular, symmetrical. GI: No signs and/or symptoms were reported involving the gastrointestinal system. : No signs and/or symptoms were reported regarding the genitourinary system. EENT: No signs and/or symptoms were reported regarding the EENT system. Derm: Skin is intact, is healthy with good turgor, Skin is pink, warm \T\ dry. Wound noted umbilical area and suprapubic area Wound is in place with kavita. wound is clean, dry, and intact, without redness, swelling, or drainage. Musculoskeletal: No signs and/or symptoms reported regarding the musculoskeletal system. Circulation, motion, and sensation intact. Capillary refill < 3 seconds, Range of motion: intact in all extremities. 13:24 Reassessment: Patient appears in no apparent distress at this time. No changes from kc6 previously documented assessment. Patient and/or family updated on plan of care and expected duration. Pain level reassessed. Patient is alert, oriented x 3, equal unlabored respirations, skin warm/dry/pink. Patient states feeling better. Patient states symptoms have improved. Vital Signs: 11:26 BP 117 / 74; Pulse 69; Resp 16 S; Pulse Ox 98% on R/A; Weight 72.57 kg (R); Height 5 kc6 ft. 8 in. (R); Pain 10/10; 12:10 BP 126 / 86; Pulse 71; Resp 16 S; Pulse Ox 96% on R/A; kc6 13:24 BP 133 / 88; Pulse 67; Resp 16 S; Pulse Ox 99% on R/A; kc6 11:26 Body Mass Index 24.33 (72.57 kg, 172.72 cm) [facility] 11:26 Pain Scale: Adult [facility] ED Course: 11:26 Patient arrived in ED. kc6 11:28 Triage completed. kc6 11:28 Arm band placed on. kc6 11:28 Patient has correct armband on for positive identification. Bed in low position. Call kc6 light in reach. Side rails up X2. Client placed on continuous cardiac and pulse oximetry monitoring. NIBP monitoring applied. Warm blanket given. 11:29 Estuardo Silva MD is Attending Physician. ec2 12:01 Renuka Torrez RN is Primary Nurse. kc6 13:24 Provided Education on: DO NOT DRIVE OR OPERATE HEAVY MACHINERY TODAY. kc6 13:24 No provider procedures requiring assistance completed. Patient did not have IV access kc6 during this emergency room visit. Administered Medications: 12:08 Drug: HYDROcodone-acetaminophen PO 10 mg-325 mg 1 tabs PO once Route: PO; kc6 12:48 Follow up: Response: No adverse reaction; Pain is decreased; RASS: Alert and Calm (0) kc6 12:08 Drug: Ketorolac IM 30 mg IM once Route: IM; Site: right deltoid; kc6 12:48 Follow up: Response: No adverse reaction kc6 13:13 Drug: oxyCODONE PO 10 mg PO once Route: PO; kc6 13:24 Follow up: Response: No adverse reaction; Pain is decreased; RASS: Alert and Calm (0) kc6 Medication: 13:24 VIS not applicable for this client. kc6 Outcome: 12:55 Discharge ordered by . ec2 13:24 Discharged to home ambulatory, with family, kc6 13:24 Condition: improved 13:24 Discharge instructions given to patient, Instructed on discharge instructions, follow up and referral plans. Demonstrated understanding of instructions, follow-up care, 13:25 Patient left the ED. kc6 Signatures: Renuka Torrez RN RN kc6 Estuardo Silva MD MD ec2
[2024-02-08] MEDS ORDERED: OXYCODONE *CR* 10 MG TAB PO ONE (13:10)
[2024-02-08 13:52] VITALS: BP 133/88; O2SAT 99
== END 2024-02-08 13:25 | disposition home or self-care (01) ==
LOC: ER 11:23
DX: G89.18 Other acute postprocedural pain (principal); F17.210 Nicotine dependence, cigarettes, uncomplicated
CPT/HCPCS: 96372; 99284

== ENCOUNTER 2024-03-24 02:24 | Emergency (ER) | payer OTHER ==
[2024-03-24] MEDS ORDERED: NYSTATIN 100MU/GM CREAM 15GM TOP ONE (03:09)
--- NOTE | 2024-03-24 08:59 | EDPHYS ---
Physician Documentation [facility] Name: Bro Yung Age: 58 yrs Sex: Male : 1965 Arrival Date: 03/24/2024 Time: 02:24 Bed 6 Private MD: ED Physician Estuardo Silva HPI: 03/24 02:50 This 58 yrs old Male presents to ER via Unassigned with complaints of Foot Pain. ec2 02:50 Patient arrives today for evaluation of bilateral feet pain. Patient reports that he ec2 has been on his feet quite a bit. Patient reports no falls injuries or trauma. Patient complains of cracking of the bilateral feet.. Historical: - Allergies: 02:51 No Known Allergies; lg3 - Home Meds: 02:51 None [Active]; lg3 - PMHx: 02:51 Anxiety; Bipolar disorder; Depression; Schizophrenia; lg3 - PSHx: 02:51 Ankle; eye; hernia repair (le); Nose; Tonsillectomy; lg3 - Immunization history:: Adult Immunizations up to date. - Infectious Disease History:: Denies. - Social history:: Smoking status: Patient reports the use of cigarette tobacco products, smokes one-half pack cigarettes per day, Patient/guardian denies using alcohol, street drugs. ROS: 02:50 Constitutional: as per hpi ec2 Exam: 02:50 Constitutional: GEN: NAD Head: atraumatic Eyes: EOMI Ears: External ears are ec2 normal. CV: regular rate LUNGS: no respiratory distress ABD: non-distended SKIN: Skin breakdown noted to the bilateral feet, no evidence of bacterial infection, no drainage, no wounds MSK: no evidence of trauma NEURO: moves all extremities equally Vital Signs: 02:50 BP 139 / 86; Pulse 86; Resp 16 S; Temp 97.4(TE); Pulse Ox 98% on R/A; Weight 72.57 kg lg3 (R); Height 5 ft. 8 in. (R); Pain 2/10; 02:50 Body Mass Index 24.33 (72.57 kg, 172.72 cm) lg3 02:50 Pain Scale: Adult lg3 MDM: 02:39 Patient medically screened. ec2 02:50 Data reviewed: vital signs. ED course: Patient arrives today for evaluation of skin ec2 issues of his bilateral feet. Examination remarkable for well-appearing nontoxic in which was otherwise in no acute distress with a reassuring examination. Suspect possible fungal infection, doubt bacterial infection, patient with strong dorsalis pedis pulses. Will prescribe the patient medication for antifungal therapy . Administered Medications: 03:05 Not Given (med not avaliablee): lotrimin afaerosol 2 % 1 application Topical once lg3 03:12 Drug: nystatin Topical Cream 1 application Topical once Route: Topical; Site: affected lg3 area; 03:12 Follow up: Response: No adverse reaction lg3 Disposition Summary: 03/24/24 03:10 Discharge Ordered Notes: Location: Home ec2 Condition: Stable ec2 Diagnosis - Tinea pedis ec2 Followup: ec2 - With: Private Physician - When: - Reason: Re-evaluation by your physician Discharge Instructions: - Discharge Summary Sheet ec2 - Athlete's Foot, Csay-[place] ec2 Forms: - Medication Reconciliation Form ec2 - Antibiotic Education ec2 - Prescription Opioid Use ec2 - Patient Portal Instructions ec2 - Leadership Thank You Letter ec2 Prescriptions: - miconazole nitrate 2 % Topical powder - apply 1 application TOPICAL route 2 times per day; 1 unit; Refills: 0, Product ec2 Selection Permitted Signatures: Alejandra Campos RN RN lg3 Estuardo Silva MD MD ec2
--- NOTE | 2024-03-24 08:59 | ER ---
Nurse's Notes [facility] Name: Bro Yung Age: 58 yrs Sex: Male : 1965 Arrival Date: 03/24/2024 Time: 02:24 Bed 6 Private MD: Diagnosis: Tinea pedis Presentation: 03/24 02:50 Chief complaint: Patient states: nilesh got fungus on my toenails and my feet are lg3 cracking. Coronavirus screen: Client denies travel out of the [place] in the last 14 days. At this time, the client does not indicate any symptoms associated with coronavirus-19. Ebola Screen: No symptoms or risks identified at this time. Initial Sepsis Screen: Does the patient meet any 2 criteria? No. Patient's initial sepsis screen is negative. Does the patient have a suspected source of infection? No. Patient's initial sepsis screen is negative. Risk Assessment: Do you want to hurt yourself or someone else? Patient reports no desire to harm self or others. Onset of symptoms is unknown. 02:50 Method Of Arrival: Ambulatory lg3 02:50 Acuity: PATRICIO 4 lg3 Triage Assessment: 02:51 General: Appears in no apparent distress. comfortable, Behavior is calm, cooperative. lg3 Pain: Complains of pain in right foot and left foot Pain does not radiate. Pain currently is 2 out of 10 on a pain scale. EENT: No deficits noted. No signs and/or symptoms were reported regarding the EENT system. Neuro: No deficits noted. [place] Agitation-Sedation Scale (RASS): 0 - Alert and Calm Level of Consciousness is awake, alert, obeys commands, Oriented to person, place, time, situation. Cardiovascular: No deficits noted. Denies chest pain, shortness of breath, Capillary refill < 3 seconds Clubbing of nail beds is absent JVD is absent Patient's skin is warm and dry. Respiratory: No deficits noted. Airway is patent Respiratory effort is even, unlabored, Respiratory pattern is regular, symmetrical. GI: No deficits noted. No signs and/or symptoms were reported involving the gastrointestinal system. : No deficits noted. No signs and/or symptoms were reported regarding the genitourinary system. Derm: Skin is intact, is healthy with good turgor, Skin is dry, Skin is normal, Skin temperature is warm discoloration of toenails noted. Musculoskeletal: No deficits noted. Circulation, motion, and sensation intact. Range of motion: intact in all extremities. Historical: - Allergies: 02:51 No Known Allergies; lg3 - Home Meds: 02:51 None [Active]; lg3 - PMHx: 02:51 Anxiety; Bipolar disorder; Depression; Schizophrenia; lg3 - PSHx: 02:51 Ankle; eye; hernia repair (le); Nose; Tonsillectomy; lg3 - Immunization history:: Adult Immunizations up to date. - Infectious Disease History:: Denies. - Social history:: Smoking status: Patient reports the use of cigarette tobacco products, smokes one-half pack cigarettes per day, Patient/guardian denies using alcohol, street drugs. Screenin:54 [facility] ED Fall Risk Assessment (Adult) History of falling in the last 3 months, lg3 including since admission No falls in past 3 months (0 pts) Confusion or Disorientation No (0 pts) Intoxicated or Sedated No (0 pts) Impaired Gait No (0 pts) Mobility Assist Device Used No (0 pt) Altered Elimination No (0 pt) Score/Fall Risk Level 0 - 2 = Low Risk Oriented to surroundings, Maintained a safe environment, Educated pt \T\ family on fall prevention, incl call for assistance when getting out of bed, Assessed \T\ reinforced patient's understanding of fall precautions. Abuse screen: Denies threats or abuse. Denies injuries from another. Nutritional screening: No deficits noted. Tuberculosis screening: No symptoms or risk factors identified. Assessment: 02:54 General: see triage assessment. lg3 Vital Signs: 02:50 BP 139 / 86; Pulse 86; Resp 16 S; Temp 97.4(TE); Pulse Ox 98% on R/A; Weight 72.57 kg lg3 (R); Height 5 ft. 8 in. (R); Pain 2/10; 02:50 Body Mass Index 24.33 (72.57 kg, 172.72 cm) lg3 02:50 Pain Scale: Adult lg3 ED Course: 02:30 Patient arrived in ED. ec2 02:31 Estuardo Silva MD is Attending Physician. ec2 02:50 Alejandra Campos RN is Primary Nurse. lg3 02:51 Triage completed. lg3 02:51 Arm band placed on right wrist. lg3 02:54 Patient has correct armband on for positive identification. Placed in gown. Bed in low lg3 position. Call light in reach. Side rails up X 1. Client placed on continuous cardiac and pulse oximetry monitoring. NIBP monitoring applied. Door closed. Noise minimized. Warm blanket given. Pillow given. 03:12 No provider procedures requiring assistance completed. Patient did not have IV access lg3 during this emergency room visit. Administered Medications: 03:05 Not Given (med not avaliablee): lotrimin afaerosol 2 % 1 application Topical once lg3 03:12 Drug: nystatin Topical Cream 1 application Topical once Route: Topical; Site: affected lg3 area; 03:12 Follow up: Response: No adverse reaction lg3 Medication: 03:14 VIS not applicable for this client. lg3 Outcome: 03:10 Discharge ordered by MD. ec2 03:12 Discharged to home ambulatory, lg3 03:12 Condition: stable 03:12 Discharge instructions given to patient, Instructed on discharge instructions, follow up and referral plans. medication usage, Demonstrated understanding of instructions, follow-up care, medications, Prescriptions given X 1, 03:14 Patient left the ED. lg3 Signatures: Alejadnra Campos RN RN lg3 Estuardo Silva MD MD ec2 Corrections: (The following items were deleted from the chart) 03:14 03:12 Discharge instructions given to patient, Instructed on discharge instructions, lg3 follow up and referral plans. Demonstrated understanding of instructions, follow-up care, lg3
[2024-03-24] MEDS ORDERED: MICONAZOLE 2% TOPICAL 15 GM TOP SCH (09:00)
[2024-03-24] MEDS ORDERED: CLOTRIMAZOLE 1% CREAM 15 GM TOP SCH (09:00)
[2024-03-24 15:56] VITALS: BP 139/86; TEMP 97.4; O2SAT 98
== END 2024-03-24 03:14 | disposition home or self-care (01) ==
LOC: ER 02:24
DX: B35.3 Tinea pedis (principal)
CPT/HCPCS: 99283

== ENCOUNTER 2024-09-13 15:23 | Observation (INO) | payer OTHER ==
--- NOTE | 2024-09-13 15:39 | ER ---
Nurse's Notes [facility] Name: Bro Yung Age: 59 yrs Sex: Male : 1965 Arrival Date: 09/13/2024 Time: 15:23 Bed IW5 Private MD: Diagnosis: Homelessness Presentation: 09/13 15:35 Chief complaint: Patient states: Walking for 2 days. Reports muscle cramps and ll1 dehydration. Coronavirus screen: Client denies travel out of the [place] in the last 14 days. At this time, the client does not indicate any symptoms associated with coronavirus-19. Ebola Screen: Patient denies travel to an Ebola-affected area in the 21 days before illness onset. Initial Sepsis Screen: Does the patient meet any 2 criteria? No. Patient's initial sepsis screen is negative. Does the patient have a suspected source of infection? No. Patient's initial sepsis screen is negative. Risk Assessment: Do you want to hurt yourself or someone else? Patient reports no desire to harm self or others. Onset of symptoms was September 12, 2024. 15:35 Method Of Arrival: EMS: [facility] ll1 15:35 Acuity: PATRICIO 3 ll1 Triage Assessment: 15:42 General: Appears distressed, uncomfortable, Behavior is calm, cooperative, appropriate ll1 for age. Pain: Complains of pain in right foot and left foot Quality of pain is described as aching. Neuro: Reports feeling dehydrated. Musculoskeletal: Reports pain in right foot and left foot. Historical: - Allergies: 15:35 No Known Allergies; ll1 - PMHx: 15:35 Anxiety; Bipolar disorder; Depression; Schizophrenia; ll1 - PSHx: 15:35 eye; Ankle; hernia repair; Nose; Tonsillectomy; ll1 - Immunization history:: Adult Immunizations up to date. - Infectious Disease History:: Denies. - Social history:: Smoking status: Patient denies any tobacco usage or history of. Screenin:44 [facility] ED Fall Risk Assessment (Adult) History of falling in the last 3 months, ll1 including since admission No falls in past 3 months (0 pts) Confusion or Disorientation No (0 pts) Intoxicated or Sedated No (0 pts) Impaired Gait Yes (1 pt) Mobility Assist Device Used Yes (1 pt) Altered Elimination No (0 pt) Score/Fall Risk Level 0 - 2 = Low Risk Maintained a safe environment, Hourly rounding (assess needs \T\ fall precautionary measures) done. Abuse screen: Denies threats or abuse. Nutritional screening: No deficits noted. Tuberculosis screening: No symptoms or risk factors identified. Assessment: 15:43 Reassessment: No changes from previously documented assessment. Patient and/or family ll1 updated on plan of care and expected duration. Pain level reassessed. Patient is alert, oriented x 3, equal unlabored respirations, skin warm/dry/pink. Vital Signs: 15:41 BP 138 / 86; Pulse 100; Resp 17; Temp 97.1; Pulse Ox 100% ; Pain 6/10; ll1 15:41 Pain Scale: Adult ll1 ED Course: 15:24 Patient arrived in ED. im 15:35 Arm band placed on. ll1 15:36 Triage completed. ll1 15:39 [facility] Pino [facility]. sb4 15:39 Carlos Abrams MD is Attending Physician. sb4 15:44 Patient has correct armband on for positive identification. Provided Education on: ll1 return to ED for worsening symptoms. 15:44 No provider procedures requiring assistance completed. Patient did not have IV access ll1 during this emergency room visit. 16:43 Diet: Patient given a regular meal tray. Patient given snack. Patient given water. ll1 Tolerated well. Administered Medications: No medications were administered Medication: 16:51 VIS not applicable for this client. ll1 Outcome: 15:39 Discharge ordered by . sb4 15:44 Patient left the ED. ll1 15:44 Discharged to home ambulatory, ll1 15:44 Condition: stable 15:44 Discharge instructions given to patient, Instructed on discharge instructions, follow up and referral plans. Demonstrated understanding of instructions, follow-up care, Signatures: Jolly Santoyo RN RN ll1 Kristen Pino PA-C PA-C sb4 Carol Whitehead im
--- NOTE | 2024-09-13 15:39 | EDPHYS ---
Physician Documentation [facility] Name: Bro Yung Age: 59 yrs Sex: Male : 1965 Arrival Date: 09/13/2024 Time: 15:23 Bed IW5 Private MD: ED Physician Carlos Abrams HPI: 09/13 18:04 This 59 yrs old Male presents to ER via EMS with complaints of muscle cramps, sb4 dehydration. 18:04 bystander called EMS because they saw patient walking outside. states he was recently sb4 released from a psych facility, is homeless, was walking to get his clothes. states he is hungry and thirsty and tired from walking but is only requesting something to eat and drink. he does not want an IV or any blood work done at this time. Historical: - Allergies: 15:35 No Known Allergies; ll1 - PMHx: 15:35 Anxiety; Bipolar disorder; Depression; Schizophrenia; ll1 - PSHx: 15:35 eye; Ankle; hernia repair; Nose; Tonsillectomy; ll1 - Immunization history:: Adult Immunizations up to date. - Infectious Disease History:: Denies. - Social history:: Smoking status: Patient denies any tobacco usage or history of. ROS: 18:04 Constitutional: Negative for fever, chills, and weight loss, sb4 18:04 All other systems are negative, Exam: 18:04 Head/Face: Normocephalic, atraumatic. Eyes: Extra-ocular motions intact. Periorbital sb4 areas with no swelling, redness, or edema. Skin: Warm, dry with normal turgor. Normal color with no rashes, no lesions, and no evidence of cellulitis. 18:04 Constitutional: The patient appears in no acute distress, alert, awake, Vital Signs: 15:41 BP 138 / 86; Pulse 100; Resp 17; Temp 97.1; Pulse Ox 100% ; Pain 6/10; ll1 15:41 Pain Scale: Adult ll1 MDM: 15:39 Medical Screening Exam initiated sb4 18:06 Data reviewed: vital signs, nurses notes, EMS record, and as a result, I will discharge sb4 patient. Test considered but Not performed: Labs: patient declined. Care significantly affected by the following Social Determinants of Health: Inadequate housing. Counseling: I had a detailed discussion with the patient and/or guardian regarding the historical points, exam findings, and any diagnostic results supporting the discharge/admit diagnosis. Counseling: I had a detailed discussion with the patient and/or guardian regarding the historical points, exam findings, and any diagnostic results supporting the discharge/admit diagnosis, the presence of at least one elevated blood pressure reading (>120/80) during this emergency department visit, the need for outpatient follow up, for definitive care, to return to the emergency department if symptoms worsen or persist or if there are any questions or concerns that arise at home. Administered Medications: No medications were administered Disposition Summary: 09/13/24 15:39 Discharge Ordered Notes: Location: Home sb4 Problem: new sb4 Symptoms: are unchanged sb4 Condition: Stable sb4 Diagnosis - Homelessness sb4 Followup: sb4 - With: Private Physician - When: As needed - Reason: Recheck today's complaints, Re-evaluation by your physician Discharge Instructions: - Discharge Summary Sheet sb4 Forms: - Patient Portal Instructions sb4 - Leadership Thank You Letter sb4 Signatures: Jolly Santoyo, RN RN ll1 Kristen Pino PA-C PA-C sb4
[2024-09-13 16:08] VITALS: BP 138/86; TEMP 97.1; O2SAT 100
[2024-09-13] MEDS ORDERED: MORPHINE 2 MG/ML SYR IV PRN (23:09)
[2024-09-13] MEDS ORDERED: ACETAMINOPHEN 500 MG TAB PO PRN (23:09)
--- NOTE | 2024-09-13 23:09 | P.HP ---
Certification for Inpatient Patient admitted to: Observation With expected LOS: <2 Midnights Patient will require the following post-hospital care: None Practitioner: I am a practitioner with admitting privileges, knowledge of patient current condition, hospital course, and medical plan of care. Services: Services provided to patient in accordance with Admission requirements found in Title 42 Section 412.3 of the Code of Federal Regulations Patient History Date of Service: 09/13/24 Reason for admission: Weakness History of Present Illness: 59-year-old male with past medical history of depression, schizophrenia, polysubstance abuse, who presented because of homelessness as well as feeling weak. He admits to have been walking nonstop for the last 2 days. He states he has been taking in less fluid. On arrival patient is complaining of pain over bilateral feet. He admits to new weakness. Vital signs in the ER was stable, laboratory workup was normal except for creatinine of 2.33. Patient has been admitted for acute kidney injury as well as homelessness and dehydration Allergies No Known Allergies Allergy (Unverified 12/11/16 13:06) Home Medications: Hydrocodone 7.5/APAP 325 [[place] 7.5/325 mg*] 1 tab PO Q4H PRN 5 Days #30 tab 02/07/24 Polyethylene Glycol 3350 [Miralax] 17 gm PO DAILY 2 Days #2 packet 02/07/24 - Past Medical/Surgical History Diabetic: No -: Bipolar -: Anxiety -: Depression -: Substance abuse disorders with meth and -: Schizophrenia -: Ankle -: Tonsillectomy -: Nose -: I surgery Psychosocial/ Personal History: Schizophrenia, substance abuse disorder with methamphetamine, IV drug use, tobacco use - Social History Smoking Status: Unknown if ever smoked Smoking therapy provided: No Alcohol use: No CD- Drugs: Yes Caffeine use: Yes Place of Residence: Homeless Review of Systems General: Weakness, Malaise Musculoskeletal: Foot Pain Physical Examination - Vital Signs Temperature: 97.1 F Blood Pressure: 138/86 Pulse: 100 Respirations: 17 - Physical Exam General: Alert, In no apparent distress, Disheveled HEENT: Atraumatic, Normocephalic, PERRLA Neck: 2+ carotid pulse no bruit, JVD not distended Respiratory: Clear to auscultation bilaterally, Normal air movement Cardiovascular: Normal pulses, Regular rate/rhythm, Normal S1 S2 Gastrointestinal: Normal bowel sounds, Soft and benign, Non-distended Musculoskeletal: No clubbing, No swelling Integumentary: No rashes, No breakdown, No significant lesion Neurological: Normal speech, Normal strength at 5/5 x4 extr Assessment and Plan - Plan Impression Acute kidney injurylikely due to dehydration, rule out rhabdomyolysis History of substance abuse History of schizophrenia Plan Admit to observation Gentle IV fluid normal saline Obtain urine drug screen Obtain CK level Lovenox As needed pain meds Regular diet Social work for as needed for discharge planning Plan to discharge in: 48 Hours - Advance Directives Does patient have a Living Will: No Does patient have a Durable POA for Healthcare: No
[2024-09-13] MEDS ORDERED: MELATONIN 5 MG TABLET PO PRN (23:11)
[2024-09-13] MEDS ORDERED: Oxycodone HCl/Acetaminophen 5/325 MG TAB PO PRN (23:11)
[2024-09-13] MEDS ORDERED: HYDRALAZINE HCL 20 MG/ML VIAL IV PRN (23:11)
[2024-09-13] MEDS ORDERED: LORAZEPAM 0.5 MG TABLET PO PRN (23:11)
[2024-09-13] MEDS ORDERED: NA CHLORIDE 0.9% 1,000 ML IV SCH (23:45)
[2024-09-14 05:13] LABS: Absolute Basophils 0.1 K/uL (0-0.5); Absolute Eosinophils 0.3 K/uL (0-0.5); Absolute Lymphocytes (CBC) 2.9 K/uL (0.7-4.9); Absolute Neutrophil 5.6 K/uL (1.8-8.0); Basophils % 0.8 % (0-1.3); Hematocrit 44.9 % (39.6-49.0); Hemoglobin 15.1 g/dL (13.6-17.9); Lymphocytes % 29.6 % (15.3-44.8); MCH 32.7 pg (27.0-35.0); MCHC 33.5 g/dL (32.0-36.0); MCV 97.5 fL (80-100); MPV 6.6 fL (7.6-11.3); Monocytes % 10.3 % (3.3-12.3); Neutrophils % 56.3 % (41.7-73.7); Nucleated Red Blood Cells % 0.1 % (0-0); Platelets 160 thou/uL (152-406); RBC Red Blood Cell Count 4.61 M/uL (4.33-5.43); Red Cell Distribution Width 12.9 % (12.1-15.2)
[2024-09-14 05:14] LABS: Albumin 3.4 g/dL (3.4-5.0); Anion Gap 7.6 mEq/L (5.0-15.0); Bilirubin Total 1.1 mg/dL (0.2-1.0); Globulin 3.5 g/dL (2.3-3.5); Potassium 3.6 mEq/L (3.5-5.1); Protein, Total 6.9 g/dL (6.4-8.2)
[2024-09-14] MEDS ORDERED: ENOXAPARIN 40 MG/0.4 ML SQ SCH (09:00)
[2024-09-14] MEDS ORDERED: FAMOTIDINE 20 MG TAB PO SCH (09:00)
[2024-09-14] MEDS ORDERED: ZINC SULFATE 220 MG CAP PO SCH (09:00)
--- NOTE | 2024-09-15 18:26 | P.DS ---
Discharge Date: 09/14/24 Disposition: DISCHARGE TO LONG-TERM/SENIOR CARE Reason for Admission: Weakness Brief History of Present Illness: 59-year-old male with past medical history of depression, schizophrenia, polysubstance abuse, who presented because of homelessness as well as feeling we ak. He admits to have been walking nonstop for the last 2 days. He states he has been taking in less fluid. On arrival patient is complaining of pain over bilateral feet. He admits to new weakness. Vital signs in the ER was stable, laboratory workup was normal except for creatinine of 2.33. Patient has been admitted for acute kidney injury as well as homelessness and dehydration Hospital Course: Patient left against medical advice in the morning of September 14. Patient was oriented to person, place, and time. Vital Signs/Physical Exam: Temp Pulse Resp BP Pulse Ox 97.1 F 100 H 17 138/86 09/13/24 23:09 09/13/24 23:09 09/13/24 23:09 09/13/24 23:09 General: Alert, In no apparent distress, Oriented x3 Laboratory Data at Discharge: WBC 9.90 thou/uL (4.3-10.9) 09/14/24 04:15 Hgb 15.1 g/dL (13.6-17.9) D 09/14/24 04:15 Hct 44.9 % (39.6-49.0) 09/14/24 04:15 Plt Count 160 thou/uL (152-406) 09/14/24 04:15 Sodium 138 mEq/L (136-145) 09/14/24 04:15 Potassium 3.6 mEq/L (3.5-5.1) D 09/14/24 04:15 BUN 40 mg/dL (7-18) H 09/14/24 04:15 Creatinine 1.33 mg/dL (0.70-1.30) H 09/14/24 04:15 Glucose 108 mg/dL (74-106) H 09/14/24 04:15 Total Bilirubin 1.1 mg/dL (0.2-1.0) H 09/14/24 04:15 AST 75 U/L (15-37) H 09/14/24 04:15 ALT 62 U/L (16-61) H 09/14/24 04:15 Alkaline Phosphatase 60 U/L (45-117) 09/14/24 04:15 Home Medications: Hydrocodone 7.5/APAP 325 [[place] 7.5/325 mg*] 1 tab PO Q4H PRN 5 Days #30 tab 02/07/24 Polyethylene Glycol 3350 [Miralax] 17 gm PO DAILY 2 Days #2 packet 02/07/24 Atomoxetine HCl 40 mg PO BEDTIME 09/14/24 Naproxen [Naprosyn] 500 mg PO BID 09/14/24 buPROPion HCL [Bupropion Xl] 150 mg PO DAILY 09/14/24 Physician Discharge Instructions: Patient left against medical advise Followup: NONE,NONE [Primary Care Provider] - Time spent managing pt's care (in minutes): 10
== END 2024-09-14 06:44 ==
LOC: ER 15:23 → ERHOLD 23:09
PROVIDERS: ADMIT Internal Medicine; ATTEND Hospitalist
DX: E86.0 Dehydration (principal); N17.9 Acute kidney failure, unspecified; R53.1 Weakness; F32.A Depression, unspecified; F20.9 Schizophrenia, unspecified; F19.10 Other psychoactive substance abuse, uncomplicated; M79.672 Pain in left foot; M79.671 Pain in right foot; Z59.00 Homelessness unspecified
CPT/HCPCS: 36415; 80053; 85025; 99283; G0378

== ENCOUNTER 2024-09-13 20:38 | Observation (INO) | payer OTHER ==
[2024-09-13 21:46] LABS: Absolute Basophils 0.1 K/uL (0-0.5); Absolute Eosinophils 0.1 K/uL (0-0.5); Absolute Lymphocytes (CBC) 2.5 K/uL (0.7-4.9); Absolute Neutrophil 8.9 K/uL (1.8-8.0); Eosinophils % 0.9 % (0-4.4); Hematocrit 51.7 % (39.6-49.0); Hemoglobin 17.3 g/dL (13.6-17.9); Lymphocytes % 19.9 % (15.3-44.8); MCH 32.9 pg (27.0-35.0); MCHC 33.4 g/dL (32.0-36.0); MCV 98.5 fL (80-100); MPV 6.5 fL (7.6-11.3); Monocytes % 7.8 % (3.3-12.3); Neutrophils % 70.4 % (41.7-73.7); Platelets 200 thou/uL (152-406); RBC Red Blood Cell Count 5.25 M/uL (4.33-5.43); Red Cell Distribution Width 13.1 % (12.1-15.2)
[2024-09-13] MEDS ORDERED: NA CHLORIDE 0.9% 1,000 ML ONE ×2 (21:50→22:32)
[2024-09-13 21:56] LABS: PT Prothrombin Time 11.5 SECONDS (9.4-12.5); PTT, Activated Partial Thromb 30.4 SECONDS (24.3-36.9); Protime INR 1.03
[2024-09-13 22:05] LABS: ALT/SGPT 76 U/L (16-61); AST/SGOT 84 U/L (15-37); Albumin 4.2 g/dL (3.4-5.0); Alkaline Phosphatase 67 U/L (45-117); Anion Gap 11.3 mEq/L (5.0-15.0); BUN Blood Urea Nitrogen 42 mg/dL (7-18); Bicarbonate 31 mEq/L (21-32); Bilirubin Direct 0.4 mg/dL (0-0.2); Bilirubin Indirect, Calculated 0.7 mg/dL (0.2-0.8); Bilirubin Total 1.1 mg/dL (0.2-1.0); Globulin 4.4 g/dL (2.3-3.5); Glomerular Filtration Rate 32 ml/min (=/>90); Glucose Level 194 mg/dL (74-106); Potassium 4.3 mEq/L (3.5-5.1); Protein, Total 8.6 g/dL (6.4-8.2); Sodium Level 134 mEq/L (136-145)
--- NOTE | 2024-09-13 22:52 | ER ---
Nurse's Notes [facility] Name: Bro Yung Age: 59 yrs Sex: Male : 1965 Arrival Date: 09/13/2024 Time: 20:38 Bed 5 Private MD: Diagnosis: Acute kidney failure, unspecified-PRE RENAL;Weakness;Bipolar disorder, unspecified-NOT SUICIDAL , NOT HOMICIDAL;Rhabdomyolysis;Adverse effect of amphetamines-methamphetamine;Paranoid schizophrenia-stable;Other retention of urine-225 ml Presentation: 09/13 20:57 Chief complaint: Patient states: "THERE ARE PEOPLE OUT THERE TRYING TO HURT ME AND cm10 THERE IS A DRONE FOLLOWING ME." PT DENIES SI WHEN ASKED IF HE WAS HAVING ANY HI HE SAID "ONLY THE PEOPLE TRYING TO HURT ME. I HAVE TO DEFEND MYSELF." PT DENIES ANY AUDITORY HALLUCINATIONS. PT STATES THAT PEOPLE ARE FOLLOWING HIM. Coronavirus screen: Client denies travel out of the [place] in the last 14 days. Ebola Screen: Patient denies travel to an Ebola-affected area in the 21 days before illness onset. No symptoms or risks identified at this time. Initial Sepsis Screen: Does the patient meet any 2 criteria? No. Patient's initial sepsis screen is negative. Does the patient have a suspected source of infection? No. Patient's initial sepsis screen is negative. Risk Assessment: Do you want to hurt yourself or someone else? Patient reports no desire to harm self or others. Onset of symptoms was September 13, 2024. 20:57 Method Of Arrival: Ambulatory cm10 20:57 Acuity: PATRICIO 2 cm10 Triage Assessment: 21:01 General: Appears in no apparent distress. comfortable, Behavior is calm, cooperative. cm10 Neuro: No deficits noted. Level of Consciousness is awake, alert, obeys commands, Oriented to person, place, time, situation, Appropriate for age. Historical: - Allergies: 21:00 No Known Allergies; cm10 - PMHx: 21:00 Anxiety; Bipolar disorder; Depression; Schizophrenia; cm10 - PSHx: 21:00 Ankle; eye; hernia repair; Nose; Tonsillectomy; cm10 - Immunization history:: Adult Immunizations unknown. - Infectious Disease History:: Denies. - Social history:: Smoking status: Patient reports the use of cigarette tobacco products, smokes one pack cigarettes per day. Screenin:48 [facility] ED Fall Risk Assessment (Adult) History of falling in the last 3 months, lg3 including since admission No falls in past 3 months (0 pts) Confusion or Disorientation No (0 pts) Intoxicated or Sedated No (0 pts) Impaired Gait No (0 pts) Mobility Assist Device Used No (0 pt) Altered Elimination No (0 pt) Score/Fall Risk Level 0 - 2 = Low Risk Oriented to surroundings, Maintained a safe environment, Educated pt \\T\\ family on fall prevention, incl call for assistance when getting out of bed, Assessed \\T\\ reinforced patient's understanding of fall precautions. Abuse screen: Denies threats or abuse. Denies injuries from another. Nutritional screening: No deficits noted. Tuberculosis screening: No symptoms or risk factors identified. Assessment: 21:48 General: Appears in no apparent distress. comfortable, Behavior is calm, cooperative, lg3 appropriate for age. Pain: Denies pain. Neuro: No deficits noted. Pittman Agitation-Sedation Scale (RASS): 0 - Alert and Calm Level of Consciousness is awake, alert, obeys commands, Oriented to person, place, time, situation. Cardiovascular: No deficits noted. Denies chest pain, shortness of breath, Capillary refill < 3 seconds Clubbing of nail beds is absent JVD is absent Patient's skin is warm and dry. Respiratory: No deficits noted. Airway is patent Respiratory effort is even, unlabored, Respiratory pattern is regular, symmetrical. GI: No deficits noted. No signs and/or symptoms were reported involving the gastrointestinal system. : No signs and/or symptoms were reported regarding the genitourinary system. EENT: No deficits noted. No signs and/or symptoms were reported regarding the EENT system. Derm: No deficits noted. No signs and/or symptoms reported regarding the dermatologic system. Skin is intact, is healthy with good turgor, Skin is dry, Skin is normal, Skin temperature is warm. Musculoskeletal: No deficits noted. No signs and/or symptoms reported regarding the musculoskeletal system. Circulation, motion, and sensation intact. Range of motion: intact in all extremities. 23:23 Reassessment: Patient appears in no apparent distress at this time. No changes from lg3 previously documented assessment. Patient and/or family updated on plan of care and expected duration. Pain level reassessed. Patient is alert, oriented x 3, equal unlabored respirations, skin warm/dry/pink. 09/14 02:00 Reassessment: Patient appears in no apparent distress at this time. Patient and/or cp4 family updated on plan of care and expected duration. Pain level reassessed. Patient is alert, oriented x 3, equal unlabored respirations, skin warm/dry/pink. Vital Signs: 09/13 20:57 BP 104 / 85; Pulse 96; Resp 18; Temp 97.3; Pulse Ox 99% on R/A; Weight 71.21 kg; Height cm10 5 ft. 8 in. ; Pain 0/10; 23:43 BP 126 / 79; Pulse 79; Resp 18; Pulse Ox 98% on R/A; oe 09/14 01:40 BP 120 / 85; Pulse 80; Resp 19; Pulse Ox 99% on R/A; af3 09/13 20:57 Body Mass Index 23.87 (71.21 kg, 172.72 cm) cm10 09/13 20:57 Pain Scale: Adult cm10 ED Course: 09/13 20:45 Patient arrived in ED. ra3 20:47 Rob Stein MD is Attending Physician. yamil 21:00 Triage completed. cm10 21:00 Arm band placed on right wrist. Patient placed in waiting room. cm10 21:41 Inserted saline lock: 20 gauge in left antecubital area, using aseptic technique. Blood af3 collected. Flushed with 10 mL NS. 21:41 EKG done, by senior technical project manager. af3 21:48 Patient taken to an internal wait recliner, ambulatory, steady gait. lg3 21:48 Patient has correct armband on for positive identification. Warm blanket given. lg3 22:49 Cortney Butcher MD is Hospitalizing Provider. yamil 23:06 CT Stone Protocol In Process Unspecified. EDMS 09/14 01:31 Bladder scan completed. 225 ml PRV. lg3 02:53 Provided Education on: admission. cp4 02:53 No provider procedures requiring assistance completed. Patient admitted, IV remains in cp4 place. Administered Medications: 09/13 21:57 Drug: NS 0.9% IV 1000 ml IV at 1000 ml once; to be given as a bolus over 60 minutes lg3 Route: IV; Rate: 1000 ml; Site: right antecubital; 22:43 Follow up: Response: No adverse reaction; IV Status: Completed infusion; IV Intake: lg3 1000ml 22:43 Drug: NS 0.9% IV 1000 ml IV at 1000 ml once; to be given as a bolus over 60 minutes lg3 Route: IV; Rate: 1000 ml; Site: left antecubital; 09/14 00:15 Follow up: IV Status: Completed infusion cp4 01:18 CANCELLED (Duplicate Order): lidocainegel 2 % 1 ea 15 ml Mucous Membrane once [facility] 01:45 Drug: Flomax PO 0.4 mg PO once Route: PO; lg3 02:55 Follow up: Response: No adverse reaction cp4 Medication: 02:53 VIS not applicable for this client. cp4 Intake: 09/13 22:43 IV: 1000ml; Total: 1000ml. lg3 Outcome: 22:51 Decision to Hospitalize by Provider. [facility] 09/14 02:53 Admitted to Med/surg accompanied by tech, via wheelchair, with chart, cp4 Condition: stable Instructed on the need for admit, 02:55 Patient left the ED. cp4 Signatures: Dispatcher [employer] EDMS Rob Stein MD MD cha Espinosa, Orlando oe Able, Lacie, RN RN lg3 Marina Weston RN RN cm10 Donita English cp4 Grace Santos Ashley af3
--- NOTE | 2024-09-13 22:52 | EDPHYS ---
Physician Documentation [facility] Name: Bro Yung Age: 59 yrs Sex: Male : 1965 Arrival Date: 09/13/2024 Time: 20:38 Bed 5 Private MD: KACIE Physician Rob Stein HPI: 09/13 22:43 This 59 yrs old Male presents to ER via Ambulatory with complaints of mental yamil health eval. 22:43 WEAK, LOTS OF WALKING. Onset: The symptoms/episode began/occurred 3 day(s) ago. yamil Severity of symptoms: At their worst the symptoms were mild in the emergency department the symptoms are unchanged. The patient has not experienced similar symptoms in the past. Historical: - Allergies: 21:00 No Known Allergies; cm10 - PMHx: 21:00 Anxiety; Bipolar disorder; Depression; Schizophrenia; cm10 - PSHx: 21:00 Ankle; eye; hernia repair; Nose; Tonsillectomy; cm10 - Immunization history:: Adult Immunizations unknown. - Infectious Disease History:: Denies. - Social history:: Smoking status: Patient reports the use of cigarette tobacco products, smokes one pack cigarettes per day. ROS: 22:45 Constitutional: Negative for fever, chills, and weight loss, Eyes: Negative for injury, yamil pain, redness, and discharge, ENT: Negative for injury, pain, and discharge, Neck: Negative for injury, pain, and swelling, Cardiovascular: Negative for chest pain, palpitations, and edema, Respiratory: Negative for shortness of breath, cough, wheezing, and pleuritic chest pain, Abdomen/GI: Negative for abdominal pain, nausea, vomiting, diarrhea, and constipation, Back: Negative for injury and pain, : Negative for injury, bleeding, discharge, and swelling, MS/Extremity: Negative for injury and deformity, Skin: Negative for injury, rash, and discoloration, Psych: Negative for depression, anxiety, suicide ideation, homicidal ideation, and hallucinations, Allergy/Immunology: Negative for hives, rash, and allergies, Endocrine: Negative for neck swelling, polydipsia, polyuria, polyphagia, and marked weight changes, Hematologic/Lymphatic: Negative for swollen nodes, abnormal bleeding, and unusual bruising, 22:45 Neuro: Positive for weakness, Exam: 22:45 Constitutional: This is a well developed, well nourished patient who is awake, alert, yamil and in no acute distress. Head/Face: Normocephalic, atraumatic. Eyes: Pupils equal round and reactive to light, extra-ocular motions intact. Lids and lashes normal. Conjunctiva and sclera are non-icteric and not injected. Cornea within normal limits. Periorbital areas with no swelling, redness, or edema. ENT: Nares patent. No nasal discharge, no septal abnormalities noted. Tympanic membranes are normal and external auditory canals are clear. Oropharynx with no redness, swelling, or masses, exudates, or evidence of obstruction, uvula midline. Mucous membranes moist. Neck: Trachea midline, no thyromegaly or masses palpated, and no cervical lymphadenopathy. Supple, full range of motion without nuchal rigidity, or vertebral point tenderness. No Meningismus. Chest/axilla: Normal chest wall appearance and motion. Nontender with no deformity. No lesions are appreciated. Cardiovascular: Regular rate and rhythm with a normal S1 and S2. No gallops, murmurs, or rubs. Normal PMI, no JVD. No pulse deficits. Respiratory: Lungs have equal breath sounds bilaterally, clear to auscultation and percussion. No rales, rhonchi or wheezes noted. No increased work of breathing, no retractions or nasal flaring. Abdomen/GI: Soft, non-tender, with normal bowel sounds. No distension or tympany. No guarding or rebound. No evidence of tenderness throughout. Back: No spinal tenderness. No costovertebral tenderness. Full range of motion. Male : Normal genitalia with no discharge or lesions. Skin: Warm, dry with normal turgor. Normal color with no rashes, no lesions, and no evidence of cellulitis. MS/ Extremity: Pulses equal, no cyanosis. Neurovascular intact. Full, normal range of motion., bilateral aka Neuro: Awake and alert, GCS 15, oriented to person, place, time, and situation. Cranial nerves II-XII grossly intact. Motor strength 5/5 in all extremities. Sensory grossly intact. Cerebellar exam normal. Normal gait. Psych: Awake, alert, with orientation to person, place and time. Behavior, mood, and affect are within normal limits. 22:45 ECG was reviewed by the Attending Physician. 22:45 Psych: Behavior/mood is pleasant, cooperative, Affect is calm, Oriented to person, place, time, Patient has no thoughts/intents to harm self or others. Judgement / Insight is normal. Memory is normal. Delusions/hallucinations are not present. Vital Signs: 20:57 BP 104 / 85; Pulse 96; Resp 18; Temp 97.3; Pulse Ox 99% on R/A; Weight 71.21 kg; Height cm10 5 ft. 8 in. ; Pain 0/10; 23:43 BP 126 / 79; Pulse 79; Resp 18; Pulse Ox 98% on R/A; oe 09/14 01:40 BP 120 / 85; Pulse 80; Resp 19; Pulse Ox 99% on R/A; af3 09/13 20:57 Body Mass Index 23.87 (71.21 kg, 172.72 cm) cm10 09/13 20:57 Pain Scale: Adult cm10 MDM: 09/13 20:47 Medical Screening Exam initiated yamil 21:01 Medical Screening Exam initiated yamil 22:46 Differential diagnosis: drug withdrawal. acute psychotic break, depression, psychosis yamil secondary to non-compliance. Differential Diagnosis altered mental status, sepsis, flu. Data reviewed: vital signs, nurses notes, lab test result(s), EKG, radiologic studies, CT scan. Consideration of Admission/Observation Patient was admitted/placed on observation. Escalation of care including admission/observation considered. I considered the following discharge prescriptions or medication management in the emergency department Medications were administered in the Emergency Department. See MAR. Independent interpretation of the following test(s) in the Emergency Department EKG: See my EKG interpretation above. Test considered but Not performed: X-ray: NO CXR. Care significantly affected by the following chronic conditions: Obesity, ANXIETY, BIPOLAR DEPRESSION, SCHIZO. 09/14 01:21 ED course: 2 liters ns bolus, ct shows severe bladder distention, pt urinated large yamil quanity of urine after ct without difficulty. 09/13 20:47 Order name: Acetaminophen; Complete Time: 22:09 [facility] 09/13 20:47 Order name: Basic Metabolic Panel; Complete Time: 22: [facility] 09/13 20:47 Order name: CBC with Diff; Complete Time: 22: [facility] 09/13 20:47 Order name: ETOH Level; Complete Time: 22: [facility] 09/13 20:47 Order name: Hepatic Function; Complete Time: 22: [facility] 09/13 20:47 Order name: PT-INR; Complete Time: 22:09 [facility] 09/13 20:47 Order name: Ptt, Activated; Complete Time: 22:09 [facility] 09/13 20:47 Order name: Salicylate; Complete Time: 22:41 [facility] 09/13 20:47 Order name: Urinalysis w/ reflexes; Complete Time: 01:11 [facility] 09/13 20:47 Order name: Urine Drug Screen; Complete Time: 01:11 [facility] 09/13 22:33 Order name: CPK; Complete Time: 01:11 lg3 09/14 01:34 Order name: CBC with Automated Diff EDMS 09/14 01:34 Order name: CBC with Automated Diff EDMS 09/14 01:34 Order name: Comprehensive Metabolic Panel EDMS 09/14 01:34 Order name: Comprehensive Metabolic Panel EDMS 09/14 01:34 Order name: Creatine Phosphokinase EDMS 09/14 01:34 Order name: Creatine Phosphokinase EDMS 09/14 01:34 Order name: Creatine Phosphokinase EDTN 09/14 01:34 Order name: Creatine Phosphokinase [facility] 09/13 22:38 Order name: CT Stone Protocol [facility] 09/13 20:47 Order name: EKG; Complete Time: 20:48 [facility] 09/13 20:47 Order name: EKG - Nurse/Tech; Complete Time: 21:41 [facility] 09/13 20:47 Order name: IV Saline Lock; Complete Time: 21:41 [facility] 09/13 20:47 Order name: Labs collected and sent; Complete Time: 21:41 [facility] 09/13 20:47 Order name: Suicide Screening ([place]); Complete Time: 21:57 [facility] 09/14 01:19 Order name: Bladder Scanner: pvr; Complete Time: 01:31 [facility] EC/14 22:56 Rate is 84 beats/min. Rhythm is regular. QRS [place] is Normal. [place] interval is normal. QT yamil interval is normal. No Q waves. T waves are Normal. No ST changes noted. Clinical impression: Normal ECG and No evidence of ischemia. Interpreted by me. Reviewed by me. Administered Medications: 21:57 Drug: NS 0.9% IV 1000 ml IV at 1000 ml once; to be given as a bolus over 60 minutes lg3 Route: IV; Rate: 1000 ml; Site: right antecubital; 22:43 Follow up: Response: No adverse reaction; IV Status: Completed infusion; IV Intake: lg3 1000ml 22:43 Drug: NS 0.9% IV 1000 ml IV at 1000 ml once; to be given as a bolus over 60 minutes lg3 Route: IV; Rate: 1000 ml; Site: left antecubital; 09/14 00:15 Follow up: IV Status: Completed infusion cp4 01:18 CANCELLED (Duplicate Order): lidocainegel 2 % 1 ea 15 ml Mucous Membrane once yamil 01:45 Drug: Flomax PO 0.4 mg PO once Route: PO; lg3 02:55 Follow up: Response: No adverse reaction cp4 Disposition Summary: 09/13/24 22:51 Hospitalization Ordered Notes: Hospitalization Status: Inpatient Admission yamil Provider: Cortney Butcher cha Location: Telemetry/MedSurg (Inpatient) yamil Condition: Stable yamil Problem: new yamil Symptoms: have improved yamil Bed/Room Type: Standard [facility] Room Assignment: 214(09/14/24 02:00) lg3 Diagnosis - Acute kidney failure, unspecified - PRE RENAL yamil - Weakness yamil - Bipolar disorder, unspecified - NOT SUICIDAL , NOT HOMICIDAL yamil - Rhabdomyolysis yamil - Adverse effect of amphetamines - methamphetamine yamil - Paranoid schizophrenia - stable yamil - Other retention of urine - 225 ml yamil Forms: - Medication Reconciliation Form yamil - SBAR form yamil - Leadership Thank You Letter yamil Signatures: Dispatcher [employer] EDRob Martinez MD MD cha Able, Lacie RN RN lg3 Marina Weston RN RN cm10 Anna Bae Christina cp4 Corrections: (The following items were deleted from the chart) 09/13 22:47 22:16 CT-STROKE BRAIN W/O CONTRAST+CT.RAD.BRZ ordered. EDTN EDMS 09/14 00:47 09/13 22:51 yamil 09/14 01:02 00:47 230 hw lg3 01:18 01:13 Vásquez ordered. yamil yamil 01:18 01:13 Lidocaine Mucous Membrane Gel 2 % 1 ea 15 ml Mucous Membrane once ordered. yamil yamil 02:00 01:02 lg3 lg3
--- NOTE | 2024-09-13 23:57 | RAD REPORT ---
INDICATION: Flank pain. Assess for obstructive uropathy. PROCEDURE: CT scan of the abdomen and pelvis was performed without intravenous contrast. Stone protoc ol was utilized. 3.0 mm axial images were obtained along with coronal and sagittal reformatted images. DOSE OPTIMIZATION: This facility uses dose optimization techniques as appropriate to perform exams, i ncluding at least one of the following techniques: 1. Automated exposure control. 2. Adjustment of the mA and/or kV according to patient size (this includes techniques or standardized protocols for targeted exams where dose is matched to the indication/reason for exam, i.e. extremities or head). 3. Use of iterative reconstructive technique. COMPARISON: Report from CT scan of the abdomen and pelvis dated 02/05/2024. FINDINGS: Lung Bases: Normal. Liver: Normal. Spleen: Normal. Pancreas: Normal. Gallbladder: Normal. Adrenal Glands: Normal. Right Kidney: Normal. Left Kidney: Normal. Right Ureter: Normal. Left Ureter: Normal. Urinary Bladder: There is severe urinary bladder distention which is described on prior study. Retroperitoneal Structures: Normal. Bowel Survey: The stomach is unremarkable. There are multiple distended small bowel loops with air-fluid levels. The appendix is unremarkable. There is increased stool within the ascending colon. There is moderately severe mural thickening of the descending and sigmoid colon with mild pericolonic edema. Findings suggestive of colitis. The above findings are suggestive of enterocolitis. Prostate Gland: Normal in size. Peritoneal Cavity: Normal. Mesenteric Structures: Normal. Abdominal Wall: There evidence of previous bilateral inguinal hernia repair. There is a recurrent aor ta and the left facet Bony Structures: There is severe multilevel degenerative disc disease and facet arthropathy throughou t the lumbar spine. [ IMPRESSION: 1. Findings suggestive of enterocolitis. 2. Severe urinary bladder distention. 3. Severe multilevel degenerative disc disease and facet arthropathy throughout the lumbar spine. 4. The Electronically signed by: Neil Llanes MD 09/13/2024 11:41 PM [facility] Due to temporary technical issues with the PACS/Miya[employer] reporting system, reports are being nadine d by the in-house radiologist without review as a courtesy to ensure prompt reporting the interpreting radiologist is fully responsible for the content of the report. Transcribed Date/Time: 09/13/2024 11:57 PM
[2024-09-14 00:01] LABS: Specific Gravity 1.022 (1.005-1.030); Sqamous Epithelial <5 /HPF (None Seen); Urine Bacteria None Seen /HPF (<20); Urine Bilirubin NEGATIVE (Negative); Urine Blood Negative (Negative); Urine Clarity Extremely Turbid (Clear); Urine Color Yellow (Yellow); Urine Crystals Unidentified Few /HPF (None Seen); Urine Culture Reflex Order NOT NEEDED; Urine Glucose NEGATIVE (Negative); Urine Ketones NEGATIVE (Negative); Urine Microscopic Reflex YN ORDER UMIC; Urine Mucus Slight /HPF (None Seen); Urine Nitrite NEGATIVE (Negative); Urine Protein NEGATIVE (Negative); Urine RBC <5 /HPF (None Seen); Urine Urobilinogen Normal (Normal); Urine pH 5.5 (5.0-7.0)
[2024-09-14 00:10] LABS: Barbiturates NEGATIVE (NEGATIVE); Benzodiazepines NEGATIVE (NEGATIVE); Cocaine NEGATIVE (NEGATIVE); METHAMPHETAM POSITIVE (NEGATIVE); Methadone NEGATIVE (NEGATIVE); Opiates NEGATIVE (NEGATIVE); Phencyclidine NEGATIVE (NEGATIVE); THC Cannibis NEGATIVE (NEGATIVE)
[2024-09-14] MEDS ORDERED: MORPHINE 2 MG/ML SYR IV PRN ×2 (01:29→01:31)
[2024-09-14] MEDS ORDERED: ALBUTEROL 2.5 MG/3 ML NEB SOL NEB PRN (01:29)
[2024-09-14] MEDS ORDERED: ONDANSETRON 4 MG/2 ML VIAL IV PRN (01:29)
[2024-09-14] MEDS ORDERED: ACETAMINOPHEN 500 MG TAB PO PRN (01:29)
--- NOTE | 2024-09-14 01:29 | P.HP ---
Certification for Inpatient Patient admitted to: Observation With expected LOS: <2 Midnights Patient will require the following post-hospital care: None Practitioner: I am a practitioner with admitting privileges, knowledge of patient current condition, hospital course, and medical plan of care. Services: Services provided to patient in accordance with Admission requirements found in Title 42 Section 412.3 of the Code of Federal Regulations Patient History Date of Service: 09/14/24 Reason for admission: weakness History of Present Illness: Weakness History of Present Illness: 59-year-old male with past medical history of depression, schizophrenia, polysubstance abuse, who presented because of homelessness as well as feeling weak. He admits to have been walking nonstop for the last 2 days. He states he has been taking in less fluid. On arrival patient is complaining of pain over bilateral feet. [facility]. Vital signs in the ER was stable, laboratory workup was normal except for creatinine of 2.33. Patient has been admitted for acute kidney injury as well as homelessness and dehydration Allergies No Known Allergies Allergy (Unverified 12/11/16 13:06) Home Medications: Hydrocodone 7.5/APAP 325 [[place] 7.5/325 mg*] 1 tab PO Q4H PRN 5 Days #30 tab 02/07/24 Polyethylene Glycol 3350 [Miralax] 17 gm PO DAILY 2 Days #2 packet 02/07/24 - Past Medical/Surgical History Diabetic: No -: Bipolar -: Anxiety -: Depression -: Substance abuse disorders with meth and -: Schizophrenia -: Ankle -: Tonsillectomy -: Nose -: I surgery Psychosocial/ Personal History: Schizophrenia, substance abuse disorder with methamphetamine, IV drug use, tobacco use - Social History Smoking Status: Unknown if ever smoked Smoking therapy provided: No Alcohol use: No CD- Drugs: Yes Caffeine use: Yes Place of Residence: Homeless Review of Systems General: Weakness, Malaise Musculoskeletal: Foot Pain Physical Examination - Vital Signs Temperature: 97.1 F Blood Pressure: 138/86 Pulse: 100 Respirations: 17 - Physical Exam General: Alert, In no apparent distress, Disheveled HEENT: Atraumatic, Normocephalic, PERRLA Neck: 2+ carotid pulse no bruit, JVD not distended Respiratory: Clear to auscultation bilaterally, Normal air movement Cardiovascular: Normal pulses, Regular rate/rhythm, Normal S1 S2 Gastrointestinal: Normal bowel sounds, Soft and benign, Non-distended Musculoskeletal: No clubbing, No swelling Integumentary: No rashes, No breakdown, No significant lesion Neurological: Normal speech, Normal strength at 5/5 x4 extr Assessment and Plan - Plan Impression Acute kidney injurylikely due to dehydration, rule out rhabdomyolysis History of substance abuse History of schizophrenia Plan Admit to observation Gentle IV fluid normal saline Obtain urine drug screen Obtain CK level Lovenox As needed pain meds Regular diet Social work for as needed for discharge planning Plan to discharge in: 48 Hours - Advance Directives Does patient have a Living Will: No Does patient have a Durable POA for Healthcare: No Allergies No Known Allergies Allergy (Unverified 12/11/16 13:06) Home Medications: Hydrocodone 7.5/APAP 325 [[place] 7.5/325 mg*] 1 tab PO Q4H PRN 5 Days #30 tab 02/07/24 Polyethylene Glycol 3350 [Miralax] 17 gm PO DAILY 2 Days #2 packet 02/07/24 - Past Medical/Surgical History Diabetic: No -: Bipolar -: Anxiety -: Depression -: Substance abuse disorders with meth and -: Schizophrenia -: Ankle -: Tonsillectomy -: Nose -: I surgery Psychosocial/ Personal History: Schizophrenia, substance abuse disorder with methamphetamine, IV drug use, tobacco use - Social History Alcohol use: No CD- Drugs: Yes Caffeine use: Yes Physical Examination - Studies Laboratory Data (last 24 hrs) 09/13/24 09/13/24 09/13/24 21:39 21:39 21:39 WBC 12.70 H Hgb 17.3 Hct 51.7 H Plt Count 200 PT 11.5 INR 1.03 APTT 30.4 Sodium 134 L Potassium 4.3 BUN 42 H Creatinine 2.33 H Glucose 194 H Total Bilirubin 1.1 H AST 84 H ALT 76 H Alkaline Phosphatase 67 Assessment and Plan - Problems (Diagnosis) (1) ARF (acute renal failure) Current Visit: Yes Status: Acute - Plan AddendumCK level elevated at 1181 Renal failure likely due to rhabdomyolysis induced ATN Follow daily CK Continue aggressive IV fluid - Advance Directives Does patient have a Living Will: No Does patient have a Durable POA for Healthcare: No
[2024-09-14] MEDS ORDERED: LORAZEPAM 0.5 MG TABLET PO PRN (01:31)
[2024-09-14] MEDS ORDERED: HYDRALAZINE HCL 20 MG/ML VIAL IV PRN (01:31)
[2024-09-14] MEDS ORDERED: TAMSULOSIN 0.4 MG SR CAP ONE (01:43)
[2024-09-14 03:26] VITALS: O2SAT 99
[2024-09-14] MEDS: NA CHLORIDE 0.9% 1,000 ML IV SCH (03:30)
[2024-09-14 04:49] VITALS: BMI 23.8
[2024-09-14] MEDS ORDERED: NA CHLORIDE 0.9% 1,000 ML IV SCH (07:46)
[2024-09-14 08:43] VITALS: BP 105/58; TEMP 97.8
[2024-09-14] MEDS ORDERED: INFLUENZA VACCINE (for 6+ mo) 0.5 ML DOSE IMVAC ONE (09:00)
[2024-09-14] MEDS ORDERED: ENOXAPARIN 40 MG/0.4 ML SQ SCH (09:00)
[2024-09-14] MEDS ORDERED: FAMOTIDINE 20 MG TAB PO SCH (09:00)
--- NOTE | 2024-09-14 13:49 | P.PN ---
Date of Service: 09/14/24 59-year-old male with a past medical history of schizophrenia, substance abuse patient was admitted overnight with dehydration, acute kidney injury, elevated CK, left AGAINST MEDICAL ADVICE, prior to being seen <Zenaida Dubon - Last Filed: 09/14/24 13:51> Patient was seen and examined. Events of the last 24 hours have been noted. Spoke with with ASHLYN regarding patient's clinical picture after evaluating and examining the patient independently. I performed a substantial part of the MDM during this patient's care today. I personally made or approved the documented management plan and acknowledge its risk of complications. I agree with the findings and documentation provided in the ASHLYN's notes. <Lennox Agosto - Last Filed: 09/15/24 18:28>
--- NOTE | 2024-09-15 18:28 | P.DS ---
Discharge Date: 09/14/24 Disposition: AMA-LEFT AGAINST MEDICAL ADVIC Discharge Condition: GOOD Reason for Admission: weakness Brief History of Present Illness: 59-year-old male with a past medical history of schizophrenia, substance abuse patient was admitted overnight with dehydration, acute kidney injury, elevated CK, left AGAINST MEDICAL ADVICE, prior to being seen Hospital Course: Patient left against medical advise Vital Signs/Physical Exam: Temp Pulse Resp BP Pulse Ox 97.8 F 84 16 105/58 L 95 09/14/24 08:00 09/14/24 08:00 09/14/24 08:00 09/14/24 08:00 09/14/24 08:00 General: Alert, In no apparent distress, Oriented x3 Laboratory Data at Discharge: WBC Cancelled 09/14/24 07:45 Hgb Cancelled 09/14/24 07:45 Hct Cancelled 09/14/24 07:45 Plt Count Cancelled 09/14/24 07:45 PT 11.5 SECONDS (9.4-12.5) 09/13/24 21:39 INR 1.03 09/13/24 21:39 APTT 30.4 SECONDS (24.3-36.9) 09/13/24 21:39 Sodium Cancelled 09/14/24 07:44 Potassium Cancelled 09/14/24 07:44 BUN Cancelled 09/14/24 07:44 Creatinine Cancelled 09/14/24 07:44 Glucose Cancelled 09/14/24 07:44 Magnesium 2.0 mg/dL (1.6-2.4) 09/14/24 04:15 Total Bilirubin Cancelled 09/14/24 07:44 AST Cancelled 09/14/24 07:44 ALT Cancelled 09/14/24 07:44 Alkaline Phosphatase Cancelled 09/14/24 07:44 Home Medications: Hydrocodone 7.5/APAP 325 [[place] 7.5/325 mg*] 1 tab PO Q4H PRN 5 Days #30 tab 02/07/24 Polyethylene Glycol 3350 [Miralax] 17 gm PO DAILY 2 Days #2 packet 02/07/24 Atomoxetine HCl 40 mg PO BEDTIME 09/14/24 Naproxen [Naprosyn] 500 mg PO BID 09/14/24 buPROPion HCL [Bupropion Xl] 150 mg PO DAILY 09/14/24 Physician Discharge Instructions: patient left against medical advice Followup: NONE,NONE [Primary Care Provider] - Time spent managing pt's care (in minutes): 8
== END 2024-09-14 08:52 | disposition left against medical advice (07) ==
LOC: ER 20:38 → ERHOLD 09-14 01:29 → 2ND 09-14 02:44
PROVIDERS: ADMIT Internal Medicine; ATTEND Hospitalist
DX: E86.0 Dehydration (principal); N17.9 Acute kidney failure, unspecified; F19.10 Other psychoactive substance abuse, uncomplicated; T43.655A Adverse effect of methamphetamines, initial encounter; Y92.9 Unspecified place or not applicable; M62.82 Rhabdomyolysis; R33.9 Retention of urine, unspecified; F20.0 Paranoid schizophrenia; F31.9 Bipolar disorder, unspecified; Z59.00 Homelessness unspecified; Z53.29 Procedure and treatment not carried out because of patient's decision for other reasons
CPT/HCPCS: 85025; 81001; 80048; 36415; 83735; 82550 ×2; 85610; 80076; 85730; 80307; 76377; 74176; 80143; 80179; 82077; J7030 ×3; G0378

== ENCOUNTER 2024-09-16 17:46 | Emergency (ER) | payer OTHER ==
[2024-09-16 18:39] LABS: Specific Gravity > 1.030 (1.005-1.030); Urine Bilirubin NEGATIVE (Negative); Urine Blood Negative (Negative); Urine Clarity Clear (Clear); Urine Color Yellow (Yellow); Urine Glucose NEGATIVE (Negative); Urine Ketones NEGATIVE (Negative); Urine Microscopic Reflex YN NO UMIC; Urine Nitrite NEGATIVE (Negative); Urine Protein NEGATIVE (Negative); Urine Urobilinogen Normal (Normal); Urine pH 5.5 (5.0-7.0)
[2024-09-16 18:54] LABS: Absolute Basophils 0.1 K/uL (0-0.5); Absolute Eosinophils 0.3 K/uL (0-0.5); Absolute Monocytes 0.4 K/uL (0.1-1.3); Absolute Neutrophil 3.4 K/uL (1.8-8.0); Basophils % 1.3 % (0-1.3); Eosinophils % 4.9 % (0-4.4); Hematocrit 41.4 % (39.6-49.0); Hemoglobin 14.1 g/dL (13.6-17.9); MCH 32.8 pg (27.0-35.0); MCV 96.3 fL (80-100); MPV 6.6 fL (7.6-11.3); Monocytes % 7.2 % (3.3-12.3); Neutrophils % 54.6 % (41.7-73.7); Nucleated Red Blood Cells % 0.1 % (0-0); Platelets 165 thou/uL (152-406); Red Cell Distribution Width 12.6 % (12.1-15.2)
[2024-09-16 19:04] LABS: Albumin 3.2 g/dL (3.4-5.0); Albumin/Globulin Ratio 0.9 (1.1-1.8); Anion Gap 7.4 mEq/L (5.0-15.0); Bilirubin Total 0.5 mg/dL (0.2-1.0); Globulin 3.4 g/dL (2.3-3.5); Potassium 3.4 mEq/L (3.5-5.1); Protein, Total 6.6 g/dL (6.4-8.2)
--- NOTE | 2024-09-16 19:20 | ER ---
Nurse's Notes [facility] Name: Bro Yung Age: 59 yrs Sex: Male : 1965 Arrival Date: 09/16/2024 Time: 17:46 Bed 7 Private MD: Diagnosis: Unspecified urinary incontinence Presentation: 09/16 17:55 Chief complaint: EMS states: patient called because he is urinating on himself, just ko1 left here AMA yesterday for a urinary problem. Coronavirus screen: At this time, the client does not indicate any symptoms associated with coronavirus-19. Ebola Screen: No symptoms or risks identified at this time. Initial Sepsis Screen: Does the patient meet any 2 criteria? No. Patient's initial sepsis screen is negative. Does the patient have a suspected source of infection? No. Patient's initial sepsis screen is negative. Risk Assessment: Do you want to hurt yourself or someone else? Patient reports no desire to harm self or others. Onset of symptoms is unknown. 17:55 Method Of Arrival: EMS: [facility] ko1 17:55 Acuity: PATRICIO 3 ko1 Triage Assessment: 17:57 General: Appears in no apparent distress. Behavior is calm, cooperative, appropriate ko1 for age. Pain: Denies pain. Historical: - Allergies: 17:57 No Known Allergies; ko1 - PMHx: 17:57 Anxiety; Bipolar disorder; Depression; Schizophrenia; ko1 - PSHx: 17:57 Ankle; eye; hernia repair; Nose; Tonsillectomy; ko1 - Immunization history:: Adult Immunizations unknown. - Infectious Disease History:: Denies. - Social history:: Smoking status: Patient reports the use of cigarette tobacco products, smokes one-half pack cigarettes per day. - Family history:: not pertinent. - Hospitalizations: : The patient was recently seen at [facility]. Screenin:58 [facility] ED Fall Risk Assessment (Adult) History of falling in the last 3 months, ko1 including since admission No falls in past 3 months (0 pts) Confusion or Disorientation No (0 pts) Intoxicated or Sedated No (0 pts) Impaired Gait No (0 pts) Mobility Assist Device Used No (0 pt) Altered Elimination No (0 pt) Score/Fall Risk Level 0 - 2 = Low Risk Oriented to surroundings, Maintained a safe environment, Educated pt \T\ family on fall prevention, incl call for assistance when getting out of bed, Assessed \T\ reinforced patient's understanding of fall precautions, Hourly rounding (assess needs \T\ fall precautionary measures) done. Abuse screen: Denies threats or abuse. Denies injuries from another. Nutritional screening: No deficits noted. Tuberculosis screening: No symptoms or risk factors identified. Assessment: 17:58 Neuro: No deficits noted. Cardiovascular: No deficits noted. Respiratory: No deficits ko1 noted. GI: No deficits noted. : Reports incontinence. EENT: No deficits noted. Derm: No deficits noted. Musculoskeletal: No deficits noted. 18:40 Reassessment: patient asked for a urinal to provide urine specimen, voided in urinal ko1 without difficulty. Vital Signs: 17:55 BP 114 / 83; Pulse 72; Resp 15; Temp 97; Pulse Ox 98% on R/A; ko1 19:53 BP 108 / 71; Pulse 72; Resp 20; Pulse Ox 96% on R/A; cc6 ED Course: 17:50 Patient arrived in ED. bd 17:51 Chuy Broderick MD is Attending Physician. rn 17:55 Fadumo Patricia, JESSICA is Primary Nurse. ko1 17:57 Triage completed. ko1 17:57 Arm band placed on right wrist. Patient placed in an exam room, on a stretcher, on ko1 pulse oximetry, Patient notified of wait time. EKG completed in triage. Results shown to MD. 17:58 Patient has correct armband on for positive identification. Bed in low position. Call ko1 light in reach. Side rails up X2. Provided Education on: labs. Pulse ox on. NIBP on. Door closed. Noise minimized. Lights dimmed. Warm blanket given. Pillow given. 18:30 No provider procedures requiring assistance completed. Initial lab(s) drawn, by ut, ko1 sent to lab. Urine collected: clean catch specimen, clear. Inserted saline lock: 20 gauge in right forearm, using aseptic technique. Blood collected. Flushed with 10 mL NS. 18:33 Urinalysis w/ reflexes Sent. ko1 18:38 CBC with Diff Sent. ko1 18:38 CMP Sent. ko1 18:38 CK Sent. ko1 18:38 Lipase Sent. ko1 18:41 Bladder scan completed. 110, 150, 152. ko1 Administered Medications: No medications were administered Medication: 17:58 VIS not applicable for this client. ko1 Outcome: 19:20 Discharge ordered by . rn 20:02 Patient left the ED. cc6 Signatures: Jayna Squires Roman, MD MD rn Oliver, Kathy, RN RN koFrannie Carranza cc6
--- NOTE | 2024-09-16 19:20 | EDPHYS ---
Physician Documentation [facility] Name: Bro Yung Age: 59 yrs Sex: Male : 1965 Arrival Date: 09/16/2024 Time: 17:46 Bed 7 Private MD: ED Physician Chuy Broderick HPI: 09/16 18:05 This 59 yrs old Male presents to ER via EMS with complaints of Urinary Problem. rn 18:05 The patient presents with urinary symptoms, incontinence of urine. Onset: The rn symptoms/episode began/occurred at an unknown time. Modifying factors: The symptoms are alleviated by nothing, the symptoms are aggravated by nothing. Associated signs and symptoms: Pertinent positives: dysuria, Pertinent negatives: fever, hematuria. Severity of symptoms: At their worst the symptoms were mild, in the emergency department the symptoms are unchanged. The patient has experienced a previous episode. Patient reports was just admitted to the hospital and left AMA. Patient reports was admitted for urinary problem, was told had bladder distention, never had a Vásquez catheter. Patient reports is able to urinate but then between urination episodes he is unable to control and is having urinary incontinence. No back pain or injury. No lower extremity weakness or numbness.. Historical: - Allergies: 17:57 No Known Allergies; ko1 - PMHx: 17:57 Anxiety; Bipolar disorder; Depression; Schizophrenia; ko1 - PSHx: 17:57 Ankle; eye; hernia repair; Nose; Tonsillectomy; ko1 - Immunization history:: Adult Immunizations unknown. - Infectious Disease History:: Denies. - Social history:: Smoking status: Patient reports the use of cigarette tobacco products, smokes one-half pack cigarettes per day. - Family history:: not pertinent. - Hospitalizations: : The patient was [facility] at [facility]. ROS: 18:05 Constitutional: Negative for fever, chills, and weight loss, Cardiovascular: Negative rn for chest pain, palpitations, and edema, Respiratory: Negative for shortness of breath, cough, wheezing, and pleuritic chest pain, Abdomen/GI: Negative for abdominal pain, nausea, vomiting, diarrhea, and constipation, Back: Negative for injury and pain, : Positive for urinary incontinence MS/Extremity: Negative for injury and deformity, Skin: Negative for injury, rash, and discoloration, Neuro: Negative for headache, weakness, numbness, tingling, and seizure, Exam: 18:05 Constitutional: This is a well developed, well nourished patient who is awake, alert, rn and in no acute distress. Cardiovascular: Regular rate and rhythm. No pulse deficits. Respiratory: No increased work of breathing, no retractions or nasal flaring. Abdomen/GI: Soft, non-tender MS/ Extremity: Pulses equal, no cyanosis. Neuro: Awake and alert, GCS 15 Vital Signs: 17:55 BP 114 / 83; Pulse 72; Resp 15; Temp 97; Pulse Ox 98% on R/A; ko1 19:53 BP 108 / 71; Pulse 72; Resp 20; Pulse Ox 96% on R/A; cc6 MDM: 17:51 Medical Screening Exam initiated rn 19:19 Differential diagnosis: UTI, urinary retention. Data reviewed: vital signs, nurses rn notes, lab test result(s), and as a result, I will discharge patient. Counseling: I had a detailed discussion with the patient and/or guardian regarding the historical points, exam findings, and any diagnostic results supporting the discharge/admit diagnosis, lab results, the need for outpatient follow up, to return to the emergency department if symptoms worsen or persist or if there are any questions or concerns that arise at home. Special discussion: I discussed with the patient/guardian in detail that at this point there is no indication for admission to the hospital. It is understood, however, that if the symptoms persist or worsen the patient needs to return immediately for re-evaluation. 19:20 ED course: Bladder scan did not confirm urinary retention. Nursing staff reports rn patient filled up urinal prior to bladder scanner and was able to urinate on command. CK improving and renal function back to normal. No indication for readmission. Will discharge home with return precautions.. 09/16 17:56 Order name: CBC with Diff; Complete Time: 19: rn 09/16 17:56 Order name: CMP; Complete Time: 19: rn 09/16 17:56 Order name: Lipase; Complete Time: 19: rn 09/16 17:56 Order name: Urinalysis w/ reflexes; Complete Time: 19:07 rn 09/16 17:56 Order name: CK; Complete Time: 19: rn 09/16 17:56 Order name: IV Saline Lock; Complete Time: 18:38 rn 12/17 17:56 Order name: Labs collected and sent; Complete Time: 18:38 rn 09/16 17:56 Order name: Bladder Scanner; Complete Time: 18:41 rn Administered Medications: No medications were administered Disposition Summary: 09/16/24 19:20 Discharge Ordered Notes: Location: Home rn Problem: new rn Symptoms: have improved rn Condition: Stable rn Diagnosis - Unspecified urinary incontinence rn Followup: rn - With: Private Physician - When: As needed - Reason: Recheck today's complaints, Re-evaluation by your physician Discharge Instructions: - Discharge Summary Sheet rn - Urinary Incontinence rn Forms: - Medication Reconciliation Form rn - 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 EDMS EDMS 17:56 17:56 COMPREHENSIVE METABOLIC PANEL+C.LAB.BRZ ordered. EDMS EDMS 17:56 17:56 LIPASE+C.LAB.BRZ ordered. EDMS EDMS 17:56 17:56 Urinalysis+U.LAB.BRZ ordered. EDMS EDMS 17:56 17:56 CREATINE PHOSPHOKINASE+C.LAB.BRZ ordered. EDDC EDMS
[2024-09-16 20:29] VITALS: TEMP 97
[2024-09-16 20:35] VITALS: BP 108/71; O2SAT 96
--- NOTE | 2024-09-18 11:39 | EKG ---
Test Date: 2024-09-13 Test Time: 21:36:24 Supervisor Paper Coating: AF MEASUREMENT RESULTS: Intervals: Rate: 84 NC: 118 QRSD: 80 QT: 370 QTc: 437 [place]: P: 80 NC: 118 QRS: 84 T: 75 INTERPRETIVE STATEMENTS: Normal sinus rhythm Normal ECG Compared to ECG 09/13/2024 21:35:33 No significant changes Electronically Signed On 09-18-24 11:37:35 LEAD JAVA DEVELOPER ARCHITECT by Dean Price
== END 2024-09-16 20:02 | disposition home or self-care (01) ==
LOC: ER 17:46
DX: R32 Unspecified urinary incontinence (principal); R30.0 Dysuria
CPT/HCPCS: 36415; 80053; 81003; 82550; 83690; 85025; 93005; 99284

== ENCOUNTER 2024-12-09 11:47 | Emergency (ER) | payer OTHER ==
[2024-12-09] MEDS ORDERED: NA CHLORIDE 0.9% 1,000 ML ONE (12:22)
[2024-12-09] MEDS ORDERED: KETOROLAC 30 MG/ML INJ ONE (12:22)
[2024-12-09 12:42] LABS: Absolute Basophils 0.1 K/uL (0-0.5); Absolute Eosinophils 0.3 K/uL (0-0.5); Absolute Lymphocytes (CBC) 2.1 K/uL (0.7-4.9); Absolute Monocytes 0.4 K/uL (0.1-1.3); Absolute Neutrophil 3.4 K/uL (1.8-8.0); Basophils % 1.4 % (0-1.3); Eosinophils % 4.3 % (0-4.4); Hematocrit 44.8 % (39.6-49.0); Hemoglobin 15.6 g/dL (13.6-17.9); Lymphocytes % 33.9 % (15.3-44.8); MCH 33.1 pg (27.0-35.0); MCHC 34.8 g/dL (32.0-36.0); MCV 95.3 fL (80-100); MPV 6.8 fL (7.6-11.3); Monocytes % 6.1 % (3.3-12.3); Neutrophils % 54.3 % (41.7-73.7); Nucleated Red Blood Cells % 0.1 % (0-0); Platelets 195 thou/uL (152-406); RBC Red Blood Cell Count 4.71 M/uL (4.33-5.43); Red Cell Distribution Width 13.1 % (12.1-15.2)
[2024-12-09 12:52] LABS: Specific Gravity 1.009 (1.005-1.030); Urine Bilirubin NEGATIVE (Negative); Urine Blood Negative (Negative); Urine Clarity Clear (Clear); Urine Color Light-Yellow (Yellow); Urine Glucose NEGATIVE (Negative); Urine Ketones NEGATIVE (Negative); Urine Microscopic Reflex YN NO UMIC; Urine Nitrite NEGATIVE (Negative); Urine Protein NEGATIVE (Negative); Urine Urobilinogen Normal (Normal)
[2024-12-09 13:41] LABS: Albumin 3.2 g/dL (3.4-5.0); Albumin/Globulin Ratio 0.9 (1.1-1.8); Anion Gap 4.1 mEq/L (5.0-15.0); Bilirubin Total 0.5 mg/dL (0.2-1.0); Globulin 3.4 g/dL (2.3-3.5); Protein, Total 6.6 g/dL (6.4-8.2)
[2024-12-09 13:44] LABS: Potassium 4.1 mEq/L (3.5-5.1)
--- NOTE | 2024-12-09 14:24 | RAD REPORT ---
EXAMINATION: CT ABDOMEN AND PELVIS WITH CONTRAST CLINICAL INDICATION: ABD PAIN TECHNIQUE: CT abdomen and pelvis was performed, after the administration of IV contrast, as per [facility] protocol. Axial, sagittal and coronal reconstructions were obtained. One or more of the following dose reduction techniques were used: Automated exposure control, adjustment of the mA and k V according to patient size, and iterative reconstruction. Unless otherwise specified, incidental findings do not require dedicated imaging follow-up. COMPARISON: 02/05/2024 FINDINGS: LOWER CHEST: Mild linear atelectasis in both lung bases. Small hiatal hernia. LIVER: Normal in size and contour. No focal lesion. Grossly unremarkable gallbladder. SPLEEN: Normal size. No focal lesion. PANCREAS: No mass, ductal dilation, or lisa-pancreatic fluid. ADRENALS: Normal; no mass. KIDNEYS: Normal size and contour. No hydronephrosis. GASTROINTESTINAL TRACT: No evidence of free air, significant intra-abdominal free fluid, bowel obstru ction or abscess. APPENDIX: Appendix not visualized, but no inflammatory changes in region of appendix. LYMPH NODES: No lymphadenopathy. MUSCULOSKELETAL: Moderate multilevel spinal degenerative changes inferiorly. ADDITIONAL FINDINGS: Bilateral hernias containing fluid and fat. IMPRESSION: No acute seen in the abdomen or pelvis.
--- NOTE | 2024-12-09 15:09 | EDPHYS ---
Physician Documentation [facility] Name: Bro Yung Age: 59 yrs Sex: Male : 1965 Arrival Date: 12/09/2024 Time: 11:47 Bed 20 Private MD: ED Physician Daniele Flower HPI: 12/09 15:05 The patient presents with abdominal pain. jj9 15:05 59-year-old man comes emergency department complaint of abdominal pain for the last jj9 several days. The patient reports he has history of inguinal hernia repair. He denies nausea, vomiting, fever, chills or any other problems. Past medical history significant for anxiety, bipolar, depression and schizophrenia.. Historical: - Allergies: 11:56 No Known Allergies; cm10 - PMHx: 11:56 Anxiety; Bipolar disorder; Depression; Schizophrenia; cm10 - PSHx: 11:56 eye; Ankle; hernia repair; Nose; Tonsillectomy; cm10 - Immunization history:: Adult Immunizations not up to date. - Infectious Disease History:: Denies. - Social history:: Smoking status: Reported history of juuling and/or vaping. Patient uses alcohol, street drugs, Methamphetamine (Meth). ROS: 15:06 Abdomen/GI: Abdominal pain jj9 20:15 Constitutional: Negative for fever, chills, and weight loss, jj9 20:15 Eyes: Negative for injury, pain, redness, and discharge, ENT: Negative for injury, pain, and discharge, Neck: Negative for injury, pain, and swelling, Cardiovascular: Negative for chest pain, palpitations, and edema, Respiratory: Negative for shortness of breath, cough, wheezing, and pleuritic chest pain, Back: Negative for injury and pain, : Negative for injury, bleeding, discharge, and swelling, MS/Extremity: Negative for injury and deformity, Skin: Negative for injury, rash, and discoloration, Neuro: Negative for headache, weakness, numbness, tingling, and seizure, Exam: 15:07 Abdomen/GI: minimal tenderness to lower abdomen, jj9 20:16 Constitutional: This is a well developed, well nourished patient who is awake, alert, jj9 and in no acute distress. Head/Face: Normocephalic, atraumatic. Eyes: Pupils equal round and reactive to light, extra-ocular motions intact. Lids and lashes normal. Conjunctiva and sclera are non-icteric and not injected. Cornea within normal limits. Periorbital areas with no swelling, redness, or edema. ENT: Nares patent. No nasal discharge, no septal abnormalities noted. Tympanic membranes are normal and external auditory canals are clear. Oropharynx with no redness, swelling, or masses, exudates, or evidence of obstruction, uvula midline. Mucous membranes moist. Neck: Trachea midline, no thyromegaly or masses palpated, and no cervical lymphadenopathy. Supple, full range of motion without nuchal rigidity, or vertebral point tenderness. No Meningismus. Chest/axilla: Normal chest wall appearance and motion. Nontender with no deformity. No lesions are appreciated. Cardiovascular: Regular rate and rhythm with a normal S1 and S2. No gallops, murmurs, or rubs. Normal PMI, no JVD. No pulse deficits. Respiratory: Lungs have equal breath sounds bilaterally, clear to auscultation and percussion. No rales, rhonchi or wheezes noted. No increased work of breathing, no retractions or nasal flaring. Abdomen/GI: tenderness lower abdomen Back: No spinal tenderness. No costovertebral tenderness. Full range of motion. Skin: Warm, dry with normal turgor. Normal color with no rashes, no lesions, and no evidence of cellulitis. MS/ Extremity: Pulses equal, no cyanosis. Neurovascular intact. Full, normal range of motion. Neuro: Awake and alert, GCS 15, oriented to person, place, time, and situation. Cranial nerves II-XII grossly intact. Motor strength 5/5 in all extremities. Sensory grossly intact. Cerebellar exam normal. Normal gait. Psych: Awake, alert, with orientation to person, place and time. Behavior, mood, and affect are within normal limits. Vital Signs: 12:14 BP 127 / 73; Pulse 70; Resp 18; Temp 97.5(O); Pulse Ox 99% on R/A; Weight 70.31 kg; cm10 Height 5 ft. 8 in. ; Pain 7/10; 14:30 BP 136 / 90; Pulse 63; Resp 15; Pulse Ox 100% ; cm10 12:14 Body Mass Index 23.57 (70.31 kg, 172.72 cm) cm10 12:14 Pain Scale: Adult cm10 MDM: 12:02 Medical Screening Exam initiated j 15:09 Differential diagnosis: AAA, appendicitis, bowel obstruction, cholecystitis, jj9 Cholelithiasis, diverticulitis, gastritis, gastroesophageal reflux disease, GI Bleed, Hepatitis, pancreatitis. Data reviewed: vital signs, nurses notes, longterm records, lab test result(s), CBC, electrolytes, hepatic panel. Care significantly affected by the following Social Determinants of Health: Problems related to primary support group. Response to treatment: the patient's symptoms have markedly improved after treatment, tolerating PO. ED course: 59-year-old man comes emergency department for evaluation of abdominal pain. The patient reports history of previous inguinal hernia repair he denies chest pain, shortness of breath, fever, nausea or vomiting. Workup today negative, CT scan of the abdomen pelvis shows no acute intra-abdominal abnormality. The patient is currently hemodynamically stable tolerating p.o. and appears in no distress. There is no signs of infection. Will discharge the patient home advised to continue home medications, follow-up PCP and return to the ED if worsening of symptoms. The patient understands and agrees with the plan.. 12/09 12:17 Order name: CBC with Diff [facility] 12/09 12:17 Order name: CMP; Complete Time: 14:05 [facility] 12/09 12:17 Order name: Lipase; Complete Time: 14:05 [facility] 12/09 12:17 Order name: Urinalysis w/ reflexes; Complete Time: 13:23 [facility] 12/09 13:06 Order name: Manual Differential EDMS 12/09 12:17 Order name: CT Abd/Pelvis - IV Contrast Only; Complete Time: 14:47 12/09 12:17 Order name: IV Saline Lock; Complete Time: 12:50 [facility] 12/09 12:17 Order name: Labs collected and sent; Complete Time: 12:50 [facility] 12/09 13:01 Order name: Labs - recollect needed: recollect green top; Complete Time: 13:18 bd Administered Medications: 12:51 Drug: TORadol - Ketorolac IVP 15 mg IVP once Route: IVP; Site: left forearm; cm10 15:28 Follow up: Response: No adverse reaction cm10 12:51 Drug: NS 0.9% IV 1000 ml IV at 1 bolus Per protocol; to be given as a bolus over 60 cm10 minutes Route: IV; Rate: 1 bolus; Site: left forearm; 15:28 Follow up: Response: No adverse reaction; IV Status: Completed infusion; IV Intake: cm10 1000ml Disposition Summary: 12/09/24 15:09 Discharge Ordered Notes: Location: Home jj9 Condition: Stable jj9 Diagnosis - Abdominal pain, unspecified jj9 Followup: jj9 - With: Private Physician - When: Tomorrow - Reason: Discharge Instructions: - Discharge Summary Sheet jj9 - Abdominal Pain, Adult jj9 Forms: - Medication Reconciliation Form jj9 - Antibiotic Education jj9 - Prescription Opioid Use jj9 - Patient Portal Instructions jj9 - Leadership Thank You Letter jj9 Signatures: Dispatcher [employer] EDMS Jayna Squires Clarissa, RN RN cm10 Daniele Flower MD MD jj9 Corrections: (The following items were deleted from the chart) 12:17 12:17 CBC+H.LAB.BRZ ordered. EDMS EDMS 12:17 12:17 COMPREHENSIVE METABOLIC PANEL+C.LAB.BRZ ordered. EDMS EDMS 12:17 12:17 LIPASE+C.LAB.BRZ ordered. EDMS EDMS 12:17 12:17 Urinalysis+U.LAB.BRZ ordered. EDMS EDMS 12:17 12:17 Abdomen Pelvis W Con+CT.RAD.BRZ ordered. EDMS EDMS
--- NOTE | 2024-12-09 15:09 | ER ---
Nurse's Notes [facility] Name: Bro Yung Age: 59 yrs Sex: Male : 1965 Arrival Date: 12/09/2024 Time: 11:47 Bed 20 Private MD: Diagnosis: Abdominal pain, unspecified Presentation: 12/09 12:14 Chief complaint: EMS states: Found patient sleeping outside of convenience store. Pt cm10 complaining of lower abdominal pain, urinary incontinence and burning with urination. 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 Pt also reports constipation. Coronavirus screen: Client denies travel out of the [place] in the last 14 days. Ebola Screen: Patient denies travel to an Ebola-affected area in the 21 days before illness onset. Initial Sepsis Screen: Does the patient meet any 2 criteria? No. Patient's initial sepsis screen is negative. Does the patient have a suspected source of infection? No. Patient's initial sepsis screen is negative. Risk Assessment: Do you want to hurt yourself or someone else? Patient reports no desire to harm self or others. Onset of symptoms was December 06, 2024. 12:14 Method Of Arrival: EMS: [facility] cm10 12:14 Acuity: PATRICIO 3 cm10 Triage Assessment: 12:18 General: Appears in no apparent distress. uncomfortable, Behavior is calm, cooperative. cm10 Pain: Complains of pain in right lower quadrant and left lower quadrant Pain does not radiate. Pain currently is 7 out of 10 on a pain scale. Quality of pain is described as sharp, Pain began 2-3 days ago. Is continuous. Neuro: No deficits noted. Level of Consciousness is awake, alert, obeys commands, Oriented to person, place, time, situation, Appropriate for age. Respiratory: No deficits noted. Airway is patent Respiratory effort is even, unlabored, Respiratory pattern is regular, symmetrical. GI: Abdomen is flat, non-distended, Last BM was December 06, 2024. Bowel sounds present X 4 quads. Abd is soft X 4 quads Abdomen is tender to palpation in left lower quadrant. : Reports burning with urination, incontinence. Historical: - Allergies: 11:56 No Known Allergies; cm10 - PMHx: 11:56 Anxiety; Bipolar disorder; Depression; Schizophrenia; cm10 - PSHx: 11:56 eye; Ankle; hernia repair; Nose; Tonsillectomy; cm10 - Immunization history:: Adult Immunizations not up to date. - Infectious Disease History:: Denies. - Social history:: Smoking status: Reported history of juuling and/or vaping. Patient uses alcohol, street drugs, Methamphetamine (Meth). Screenin:27 [facility] ED Fall Risk Assessment (Adult) History of falling in the last 3 months, cm10 including since admission No falls in past 3 months (0 pts) Confusion or Disorientation No (0 pts) Intoxicated or Sedated No (0 pts) Impaired Gait No (0 pts) Mobility Assist Device Used No (0 pt) Altered Elimination No (0 pt) Score/Fall Risk Level 0 - 2 = Low Risk Oriented to surroundings, Maintained a safe environment, Hourly rounding (assess needs \T\ fall precautionary measures) done. Abuse screen: Denies threats or abuse. Denies injuries from another. Nutritional screening: No deficits noted. Tuberculosis screening: No symptoms or risk factors identified. Assessment: 12:19 Reassessment: SEE TRIAGE ASSESSMENT. cm10 16:09 General: Pt left with IV to left forearm in place. PD called to locate patient and they cm10 state that pt is not in the location of drop off. Attempted to call patient, incorrect number listed.. Vital Signs: 12:14 BP 127 / 73; Pulse 70; Resp 18; Temp 97.5(O); Pulse Ox 99% on R/A; Weight 70.31 kg; cm10 Height 5 ft. 8 in. ; Pain 7/10; 14:30 BP 136 / 90; Pulse 63; Resp 15; Pulse Ox 100% ; cm10 12:14 Body Mass Index 23.57 (70.31 kg, 172.72 cm) cm10 12:14 Pain Scale: Adult cm10 ED Course: 11:56 Patient arrived in ED. cm10 11:57 Marina Weston, JESSICA is Primary Nurse. cm10 12:02 Daniele Flower MD is Attending Physician. jj9 12:17 Triage completed. cm10 12:18 Arm band placed on right wrist. Patient placed in an exam room, on a stretcher. cm10 12:51 Initial lab(s) drawn, by me, sent to lab. Inserted saline lock: 20 gauge in left cm10 forearm, using aseptic technique. Flushed with 10 mL NS. Missed attempt(s): 20 gauge in right antecubital area. Bleeding controlled, band aid applied, catheter tip intact. 13:[address] via stretcher. cm10 14:14 CT Abd/Pelvis - IV Contrast Only In Process Unspecified. EDMS 15:19 IV discontinued, intact, bleeding controlled, No redness/swelling at site. Pressure bc6 dressing applied. 15:27 Patient has correct armband on for positive identification. Provided Education on: cm10 Follow-up instructions. 15:27 No provider procedures requiring assistance completed. cm10 15:28 IV discontinued, intact, bleeding controlled, No redness/swelling at site. Pressure cm10 dressing applied. Administered Medications: 12:51 Drug: TORadol - Ketorolac IVP 15 mg IVP once Route: IVP; Site: left forearm; cm10 15:28 Follow up: Response: No adverse reaction cm10 12:51 Drug: NS 0.9% IV 1000 ml IV at 1 bolus Per protocol; to be given as a bolus over 60 cm10 minutes Route: IV; Rate: 1 bolus; Site: left forearm; 15:28 Follow up: Response: No adverse reaction; IV Status: Completed infusion; IV Intake: cm10 1000ml Medication: 15:28 VIS not applicable for this client. cm10 Intake: 15:28 IV: 1000ml; Total: 1000ml. cm10 Outcome: 15:09 Discharge ordered by MD. [email or web address] 15:27 Discharged to home ambulatory, cm10 15:27 Condition: good 15:27 Discharge instructions given to patient, Instructed on discharge instructions, follow up and referral plans. Demonstrated understanding of instructions, follow-up care, 15:28 Patient left the ED. cm10 Signatures: Dispatcher [employer] EDMS Reema [id number] Marina Weston RN RN cm10 Daniele Flower MD MD jj9
[2024-12-09 16:13] VITALS: TEMP 97.5
[2024-12-09 16:19] VITALS: BP 136/90; O2SAT 100
[2024-12-09 16:37] LABS: Differential Total Cells Count 100
[2024-12-09 16:38] LABS: Blood Morphology Comment NOT SEEN (NOT SEEN); Eosinophils 6 % (0-3); Lymphocytes 37 % (15-42); Monocytes 6 % (0-10); Platelet Estimate ADEQ; Segmented Neutrophils 50 % (40-80); White Blood Cell Scan OK (OK)
== END 2024-12-09 15:28 | disposition home or self-care (01) ==
LOC: ER 11:47
DX: R10.9 Unspecified abdominal pain (principal)
CPT/HCPCS: 96361; 85025; 36415; 81003; 83690; 80053; 74177; 96374; 99285; Q9967; J7030

== ENCOUNTER 2025-07-24 21:05 | Emergency (ER) | payer MEDICAID, OTHER ==
[2025-07-24 21:52] LABS: Absolute Lymphocytes (CBC) 2.3 K/uL (0.7-4.9); Hematocrit 52.2 % (39.6-49.0); Hemoglobin 17.9 g/dL (13.6-17.9); MCH 32.6 pg (27.0-35.0); MCHC 34.3 g/dL (32.0-36.0); MCV 94.9 fL (80-100); MPV 6.6 fL (7.6-11.3); Nucleated RBC Absolute Count 0.0 (0-0); Nucleated Red Blood Cells % 0.2 % (0-0); RBC Red Blood Cell Count 5.50 M/uL (4.33-5.43); White Blood Count 13.00 thou/uL (4.3-10.9)
[2025-07-24 22:01] LABS: METHAMPHETAM POSITIVE (NEGATIVE); PT Prothrombin Time 13.1 SECONDS (10-13.0); PTT, Activated Partial Thromb 31.0 SECONDS (27.2-37.4); Protime INR 1.16; THC Cannibis NEGATIVE (NEGATIVE)
--- NOTE | 2025-07-24 22:12 | EDPHYS ---
Physician Documentation [facility] Name: Bro Yung Age: 60 yrs Sex: Male : 1965 Arrival Date: 07/24/2025 Time: 21:05 Bed 17 Private MD: ED Physician Silviano Recio HPI: 07/25 03:47 This 60 yrs old Male presents to ER via EMS with complaints of Overdose. tt7 03:47 Patient reportedly has taken 20 gabapentin tablets of unknown dosage over the course tt7 the last 10 hours, he denies suicidal ideation or suicidal intent, states he was taking the medication to get high, also reports sniffing some epoxy glue earlier to get high, but his medical history includes anxiety, bipolar, depression, schizophrenia. Historical: - Allergies: 07/24 21:17 No Known Allergies; kj2 - PMHx: 21:17 Anxiety; Bipolar disorder; Depression; Schizophrenia; kj2 - Immunization history:: Adult Immunizations unknown. - Infectious Disease History:: Denies. - Social history:: Smoking status: unknown. ROS: 07/25 03:41 Constitutional: negative for fever. Cardiovascular: negative for chest pain. tt7 Respiratory: negative for shortness of breath. Abdomen/GI: negative for abdominal pain, nausea, vomiting, diarrhea. MS/Extremity: negative for injury and deformity. Skin: negative for rash. Neuro: negative for focal weakness. Exam: 03:47 Constitutional: vital signs reviewed, well appearing. Head/Face: normocephalic, tt7 atraumatic. Eyes: no conjunctival injection, anicteric sclerae. ENT: mucus membranes moist. Neck: trachea midline, no JVD, no meningismus. Chest/axilla: normal chest wall appearance and motion, nontender, no crepitus. Cardiovascular: regular rate and rhythm, no murmurs, no rubs, no lower extremity edema. Respiratory: normal respiratory effort, no accessory muscle use, lungs CTAB. Abdomen/GI: soft, nondistended, nontender, no guarding or rebound, negative Andrews's sign, no McBurney point tenderness. Back: normal ROM. Skin: warm, dry, intact, normal turgor, normal color, no rash. MS/ Extremity: normal ROM of extremities, no gross deformities. Neuro: alert and oriented with appropriate mental status, normal speech, follows commands, no focal neurologic deficits. Psych: appropriate mood and affect. Vital Signs: 07/24 21:14 Weight 83.91 kg; Height 5 ft. 7 in. ; kj2 21:14 Body Mass Index 28.97 (83.91 kg, 170.18 cm) kj2 MDM: 21:32 Medical Screening Exam initiated tt7 07/25 03:41 Differential diagnosis: Ingestion/exposure to Gabapentin and inhalants polypharmacy. Data reviewed: vital signs, nurses notes, lab test result(s), EKG. 03:44 ED course: Patient here for intentional ingestion of approximately 20 gabapentin tt7 tablets of unknown dosage, patient has been taking these over the course of the past 10 hours, he denies any suicidal ideation or suicidal intent, reports that he has been taking them to get high, also reports that he sniffed some epoxy glue earlier to get high, standard toxicology workup initiated, Poison control was contacted and agrees with our workup and recommends 6 to 8 hours observation, patient clinically sober at this time, I independently interpreted the patient's EKG performed on 07/24/2025 at 2202. On my interpretation, EKG demonstrates sinus tachycardia with short NH interval, ventricular rate 108 bpm, normal axis, normal QRS interval, normal ST segments, no STEMI. ED course: Patient told the nurse that he was going to leave and didn't want any further testing, apparently he did sign AMA paperwork but left the emergency department prior to me being able to go have a discussion with the patient on the risk of leaving. 07/24 21:35 Order name: Acetaminophen tt7 07/24 21:35 Order name: Basic Metabolic Panel tt7 07/24 21:35 Order name: CBC with Diff; Complete Time: 22:03 tt7 07/24 21:35 Order name: ETOH Level tt7 07/24 21:35 Order name: Hepatic Function tt7 07/24 21:35 Order name: PT-INR; Complete Time: 22:03 tt7 07/24 21:35 Order name: Ptt, Activated; Complete Time: 22:03 tt07/24 21:35 Order name: Salicylate tt7 07/24 21:35 Order name: Urine Drug Screen; Complete Time: 22:03 tt7 07/24 21:35 Order name: EKG - Nurse/Tech; Complete Time: 22:04 tt7 07/24 21:35 Order name: IV Saline Lock; Complete Time: 21:39 tt7 07/24 21:35 Order name: Labs collected and sent; Complete Time: 21:39 tt7 07/24 21:35 Order name: Suicide Precautions; Complete Time: 21:39 tt7 07/24 21:35 Order name: Suicide Screening ([place]); Complete Time: 22:06 tt7 Administered Medications: No medications were administered Disposition: 03:48 Co-signature as Attending Physician, Silviano Recio DO. tt7 Disposition Summary: 07/24/25 22:11 Left Against Medical Advice Notes: Location: Home tt7 Problem: new tt7 Symptoms: are unchanged tt7 Condition: Undetermined tt7 Diagnosis - GABAPENTIN OVERDOSE tt7 Followup: tt7 - With: Emergency Department - When: As needed - Reason: Followup: tt7 - With: Private Physician - When: 1 - 2 days - Reason: Recheck today's complaints, Re-evaluation by your physician Discharge Instructions: - Discharge Summary Sheet tt7 - Inhalant Use Disorder tt7 - Substance Use Disorder tt7 - Methamphetamines Use Disorder tt7 - Substance Use Disorder and Mental Illness tt7 Signatures: Dispatcher [employer] EDMS Isela Miranda RN RN kj2 Silviano Recio DO DO tt7 Corrections: (The following items were deleted from the chart) 07/24 21:35 21:35 ACETAMINOPHEN+C.LAB.BRZ ordered. EDMS EDMS 21:35 21:35 BASIC METABOLIC PANEL+C.LAB.BRZ ordered. EDMS EDMS 21:35 21:35 CBC+H.LAB.BRZ ordered. EDMS EDMS 21:35 21:35 ETHANOL+C.LAB.BRZ ordered. EDMS EDMS 21:35 21:35 HEPATIC FUNCTION+C.LAB.BRZ ordered. EDMS EDMS 21:35 21:35 PROTIME (+INR)+COAG.LAB.BRZ ordered. EDMS EDMS 21:35 21:35 PTT, ACTIVATED+COAG.LAB.BRZ ordered. EDMS EDMS 21:35 21:35 SALICYLATE+C.LAB.BRZ ordered. EDMS EDMS 21:35 21:35 URINE DRUG SCREEN+UC.LAB.BRZ ordered. EDMS EDMS
--- NOTE | 2025-07-24 22:12 | ER ---
Nurse's Notes [facility] Name: Bro Yung Age: 60 yrs Sex: Male : 1965 Arrival Date: 07/24/2025 Time: 21:05 Bed 17 Private MD: Diagnosis: GABAPENTIN OVERDOSE Presentation: 07/24 21:14 Chief complaint: EMS states: patient took approximately 20 tabs of gabapentin starting kj2 at midnight and he now has muscle cramps. Coronavirus screen: Client denies travel out of the [place] in the last 14 days. Ebola Screen: No symptoms or risks identified at this time. Initial Sepsis Screen: Does the patient meet any 2 criteria? No. Patient's initial sepsis screen is negative. Does the patient have a suspected source of infection? No. Patient's initial sepsis screen is negative. Risk Assessment: Do you want to hurt yourself or someone else? Patient reports no desire to harm self or others. Onset of symptoms was July 24, 2025. 21:14 Method Of Arrival: EMS: [facility] kj2 21:14 Acuity: PATRICIO 3 kj2 Triage Assessment: 21:15 General: Appears in no apparent distress. Behavior is cooperative. Pain: Complains of kj2 pain in bilat legs. Neuro: Level of Consciousness is awake, alert, obeys commands, Oriented to person, place, time, situation. Cardiovascular: Patient's skin is warm and dry. Respiratory: Airway is patent Respiratory effort is unlabored. GI: No signs and/or symptoms were reported involving the gastrointestinal system. : No signs and/or symptoms were reported regarding the genitourinary system. Historical: - Allergies: 21:17 No Known Allergies; kj2 - PMHx: 21:17 Anxiety; Bipolar disorder; Depression; Schizophrenia; kj2 - Immunization history:: Adult Immunizations unknown. - Infectious Disease History:: Denies. - Social history:: Smoking status: unknown. Screenin:13 [facility] ED Fall Risk Assessment (Adult) History of falling in the last 3 months, ss12 including since admission No falls in past 3 months (0 pts) Confusion or Disorientation No (0 pts) Intoxicated or Sedated No (0 pts) Impaired Gait No (0 pts) Mobility Assist Device Used No (0 pt) Altered Elimination No (0 pt) Score/Fall Risk Level 0 - 2 = Low Risk Oriented to surroundings, Maintained a safe environment, Educated pt \\T\\ family on fall prevention, incl call for assistance when getting out of bed, Assessed \\T\\ reinforced patient's understanding of fall precautions. Abuse screen: Denies threats or abuse. Denies injuries from another. Nutritional screening: No deficits noted. Tuberculosis screening: No symptoms or risk factors identified. Assessment: 21:15 General: Appears in no apparent distress. Behavior is cooperative. Pain: Complains of kj2 pain in bilat legs Pain currently is 6 out of 10 on a pain scale. Neuro: Level of Consciousness is awake, alert, obeys commands, Oriented to person, place, time, situation. Cardiovascular: Patient's skin is warm and dry. Respiratory: Airway is patent Respiratory effort is even, unlabored. GI: No signs and/or symptoms were reported involving the gastrointestinal system. : No signs and/or symptoms were reported regarding the genitourinary system. 21:18 Reassessment: patient denies suicidal ideation and homicidal ideation. kj2 21:28 Reassessment: RN spoke with Poison Control claims customer service representative "Nisha", Nisha advised to observe kj2 the patient 4 to 6 hours from the time of arrivel and if urine, cbc, cmp, urine, toxicology and salicylate levels are normal. . Overdose: 22:32 [place] Suicide Severity Screening: "In the past month, have you wished you were ss12 or wished you could go to sleep and not wake up?" Patient responds "yes." Based off client's responses, additional C-SSRS screening questions required. "In the past month, have you actually had any thoughts of killing yourself?" Patient responds "no." "In your lifetime, have you ever done anything, started to do anything, or prepared to do anything to end your life?" Patient responds "no.". 22:32 [place] Suicide Severity Screening: "In the past month, have you actually had any ss12 thoughts of killing yourself?" Patient responds "no.". 22:33 [place] Suicide Severity Screening: "In the past month, have you actually had any ss12 thoughts of killing yourself?" Patient responds "no.". Vital Signs: 21:14 Weight 83.91 kg; Height 5 ft. 7 in. ; kj2 21:14 Body Mass Index 28.97 (83.91 kg, 170.18 cm) kj2 ED Course: 21:13 Patient arrived in ED. kj2 21:16 Triage completed. kj2 21:27 Silviano Recio DO is Attending Physician. tt7 21:39 Initial lab(s) drawn, by laboratory monitor, sent to lab. Inserted saline lock: 22 gauge in right ts3 hand, using aseptic technique. Blood collected. Flushed with 10 mL NS. 21:45 No provider procedures requiring assistance completed. ss12 22:04 Acetaminophen Sent. ss12 22:04 Basic Metabolic Panel Sent. ss12 22:04 ETOH Level Sent. ss12 22:04 Hepatic Function Sent. ss12 22:04 Salicylate Sent. ss12 22:06 EKG done, by diesel technician. reviewed by Silviano Recio DO. ts3 22:33 Arm band placed on right wrist. ss12 22:33 Patient has correct armband on for positive identification. Provided Education on: plan ss12 of care discussed with patient. 22:35 IV discontinued, intact, bleeding controlled, No redness/swelling at site. Pressure ss12 dressing applied. Administered Medications: No medications were administered Medication: 22:33 VIS not applicable for this client. ss12 Outcome: 22:34 Discharged to home ambulatory, ss12 22:34 Condition: stable 22:34 Discharge instructions given to patient, left the ER AMA. IV removed. Pt ambulatory and no gait disturbances noted. 22:35 Patient left the ED. ss12 Signatures: Isela Miranda RN RN kj2 Marita Damon ts3 Xiomy Stauffer RN RN ss12 Silviano Recio DO DO tt7
[2025-07-24 22:30] LABS: ALT/SGPT 74 U/L (16-61); AST/SGOT 165 U/L (15-37); Albumin 4.6 g/dL (3.4-5.0); Albumin/Globulin Ratio 1.0 (1.1-1.8); Alkaline Phosphatase 50 U/L (45-117); Anion Gap 13.5 mEq/L (5.0-15.0); BUN Blood Urea Nitrogen 34 mg/dL (7-18); Bilirubin Indirect, Calculated 1.0 mg/dL (0.2-0.8); Globulin 4.4 g/dL (2.3-3.5); Glucose Level 138 mg/dL (74-106); Potassium 3.5 mEq/L (3.5-5.1)
== END 2025-07-24 22:35 | disposition left against medical advice (07) ==
LOC: ER 21:05
DX: T42.6X1A Poisoning by other antiepileptic and sedative-hypnotic drugs, accidental (unintentional), initial encounter (principal); F20.9 Schizophrenia, unspecified
CPT/HCPCS: 36415; 80048; 80076; 80143; 80179; 80307; 82077; 85025; 85610; 85730; 93005; 99284

== ENCOUNTER 2025-07-28 23:32 | Emergency (ER) | payer MEDICAID ==
--- NOTE | 2025-07-28 23:44 | EDPHYS ---
Physician Documentation [facility] Name: Bro Yung Age: 60 yrs Sex: Male : 1965 Arrival Date: 07/28/2025 Time: 23:32 Bed 19 Private MD: ED Physician Bari Cowan HPI: 07/28 23:40 This 60 yrs old Male presents to ER via Unassigned with complaints of Medication refill.kb 23:40 Patient is a 60-year-old male who presents for medication refill. EMS states the kb patient was in [facility] and they were called because patient needed his hydroxyzine and Abilify. Denies homicidal or suicidal ideations.. ROS: 23:40 Constitutional: As per HPI kb Exam: 23:40 Constitutional: This is a well developed, well nourished patient who is awake, alert, kb and in no acute distress. Head/Face: Normocephalic, atraumatic. ENT: Moist Mucous membranes Respiratory: Respirations even and unlabored. No increased work of breathing. Talking in full sentences Neuro: Awake and alert, GCS 15, oriented to person, place, time, and situation. MDM: 23:36 Medical Screening Exam initiated kb 23:41 Data reviewed: vital signs, nurses notes. Historians other than the Patient: EMS: [facility]. ED course: I went in to evaluate patient, patient state he needed to use the restroom and asked if he needed to obtain a urine sample. I showed patient with the restroom was and then waited outside of his room for him to return for evaluation. Patient then left the ER without informing staff.. Administered Medications: No medications were administered Disposition: 07/29 22:53 Co-signature as Attending Physician, Bari Cowan MD I agree with the assessment sp4 and plan of care. I reviewed the patient's care provided by the Advanced Practice Provider and agree with the diagnosis and treatment plan. Disposition Summary: 07/28/25 23:39 Eloped Notes: Reason: unknown br2 Disposition: after being seen by provider(07/28/25 23:43) kb Signatures: Annie Tello, JOHN LEAL-Bari Conklin MD MD sp4 Marilin Nieto RN RN br2 Corrections: (The following items were deleted from the chart) 07/28 23:43 23:39 before being seen by provider brock winn
== END 2025-07-28 23:43 | disposition left against medical advice (07) ==
LOC: ER 23:32
DX: Z76.0 Encounter for issue of repeat prescription (principal)